=== PATIENT | female | born 1950 | race Caucasian/White ===

== ENCOUNTER → 2017-10-14 09:45 | Outpatient (CLI) | payer MEDICARE, OTHER, SELFPAY ==
--- NOTE | 2017-10-14 09:57 | RAD_ITS ---
STUDY: X-RAY - RIGHT FOOT CLINICAL: Female, 67 years old. Pain. No known injury. TECHNIQUE: 3 view(s) of the foot. COMPARISON: Comparison is made with prior examination generally 2017. FINDINGS: Normal talus, calcaneus, and tarsal bones. Normal visualized subtalar, talonavicular, calcaneocuboid, tarsal and tarsometatarsal articulations. Normal metatarsi. There is a mild degenerative arthrosis of the metatarsophalangeal joint of the hallux with a hallux valgus deformity. Normal tibial and fibular sesamoid bones. Normal interphalangeal joint of the great toe. Normal phalanges of the great toe. Normal second through fifth metatarsophalangeal joints. Normal interphalangeal joints and phalanges of the lesser toes. The soft tissue structures are unremarkable. RAD/Foot min 3 Views IMPRESSION: Mild degenerative changes at the first metatarsophalangeal joint. Electronically Signed: Miguel Barrios MD at 20:03 EST Tel [phone], Service support ,
--- NOTE | 2017-10-14 09:58 | RAD_ITS ---
STUDY: X-RAY - RIGHT ANKLE REASON FOR EXAM: Female, 67 years old. Pain following injury. TECHNIQUE: 3 view(s) of the ankle. COMPARISON: None. FINDINGS: Normal visualized distal tibia and fibula. Normal medial and lateral malleoli. Normal tibiotalar articulation and ankle mortise. Normal visualized talus and calcaneus. The visualized subtalar, talonavicular, calcaneocuboid and tarsal articulations are normal. The soft tissue structures are unremarkable. RAD/Ankle min 3 Views IMPRESSION: Normal x-ray examination of the ankle. Electronically Signed: Miguel Barrios MD at 20:03 EST Tel [phone], Service support ,
== END ==
PROVIDERS: Family Provider Internal Medicine; PCP Internal Medicine; Visit Provider Nurse Practitioner Gerontology
DX: M79.671 Pain in right foot (principal); M25.571 Pain in right ankle and joints of right foot
CPT/HCPCS: 73610; 73630

== ENCOUNTER → 2018-01-09 16:52 | Outpatient (CLI) | payer MEDICARE, OTHER, SELFPAY ==
--- NOTE | 2018-01-09 16:58 | MRI_ITS ---
STUDY: MRI LUMBAR SPINE WITHOUT CONTRAST REASON FOR EXAM: Female, 67 years old. Low back pain and bilateral hip pain. TECHNIQUE: Standardized fat and water weighted pulse sequences were obtained in the sagittal and axial planes. COMPARISON: MRI of the lumbar spine dated April 11, 2014. FINDINGS: T12-L1: Normal endplates. Normal disc height, signal and morphology. Normal bilateral facet joints. Normal central canal and bilateral lateral recesses. Normal bilateral intervertebral neural foramina. Normal lumbar lordosis. There is no substantial scoliosis. Normal conus medullaris that terminates at the T12 level. L1-2: There is mild annular disk bulge and osteophyte complex. There is mild degenerative arthropathy of the facet joints. Bilateral neuroforamina are narrowed without MR evidence for nerve impingement. There is no significant central canal stenosis. L2-3: There is mild annular disk bulge and osteophyte complex. There is mild degenerative arthropathy of the facet joints. Bilateral neuroforamina are narrowed without MR evidence for nerve impingement. There is no significant central canal stenosis. L3-4: There is a small Schmorl's node of the superior endplate of L3. There is mild annular disk bulge and osteophyte complex. There is mild degenerative arthropathy of the facet joints. Bilateral neuroforamina are narrowed without MR evidence for nerve impingement. There is no significant central canal stenosis. L4-5: There is mild annular disk bulge and osteophyte complex. There is mild degenerative arthropathy of the facet joints. Bilateral neuroforamina are narrowed without MR evidence for nerve impingement. There is no significant central canal stenosis. L5-S1: There is narrowing of this disc. There appears to be sequela of chronic Modic changes at the endplates. There are small endplate osteophytes. There is mild annular disk bulge and osteophyte complex. There is mild degenerative arthropathy of the facet joints. Bilateral neuroforamina are narrowed without MR evidence for nerve impingement. There is no significant central canal stenosis. Normal visualized sacral ala. Normal visualized paraspinous soft tissue structures. The left kidney appears smaller than expected for patient's age. 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 Electronically Signed: Inez Skelton MD at 8:23 EDT , Service support ,
== END ==
PROVIDERS: Family Provider Internal Medicine; PCP Internal Medicine; Visit Provider Nurse Practitioner Family
DX: M51.37 Other intervertebral disc degeneration, lumbosacral region (principal); M47.817 Spondylosis without myelopathy or radiculopathy, lumbosacral region; M51.26 Other intervertebral disc displacement, lumbar region
CPT/HCPCS: 72148

== ENCOUNTER → 2018-05-11 07:27 | Outpatient (CLI) | payer MEDICARE, OTHER, SELFPAY ==
[2018-05-11 07:46] LABS: Mucous, Urine 0 SEEN /hpf (<or=2+)
[2018-05-11 08:59] LABS: Absolute Lymphocyte Count 1.02 X10^3/ul (0.83-4.51); Absolute Neutrophil Count 1.4 X10^3/uL (2.0-7.7); Basophil# 0.05 X10^3/uL; Basophil% 1.7 % (0-1); Eosinophil# 0.11 X10^3/uL; Eosinophils% 3.7 % (0-5); Hematocrit 41.9 % (37-47); Hemoglobin 13.7 g/dl (12.0-15.0); Lymphocyte # 1.02 X10^3/ul (4.0); Lymphocyte % 34.5 % (19-41); Mean Corp Hgb Conc 32.7 g/gl (32-36); Mean Corpuscular Hgb 30.1 pg (27.0-32.0); Mean Corpuscular Volume 92.1 fL (81-99); Mean Platelet Vol. 10.4 fl (6.2-12.0); Monocyte# 0.36 X10^3/uL; Monocyte% 12.2 % (0-10); Neutrophil # 1.41 X10^3/uL (2.7-7.7); Neutrophil % 47.6 % (47-70); Platelet Count 257 K/mm3 (150-450); RBC Distribution Width CV 17.8 % (11.6-14.6); RBC Distribution Width SD 59.5 fl (35.1-43.9); Red Blood Count 4.55 M/mm3 (4.2-5.4)
[2018-05-11 09:00] LABS: Color, Urine Yellow (Yellow); Glucose, Dipstick Normal (Normal); Ketone-Dipstick Negative (Negative); Leukocyte Esterase-Dipstick 25 /ul (Negative); Nitrite-Dipstick Negative (Negative); Occult Blood-Urine Negative /ul (Negative); Protein-Dipstick Negative (Negative); Urine Bilirubin Dipstick Negative (Negative); Urine Clarity Clear (Clear); Urine Urobilinogen Normal (Normal)
[2018-05-11 09:11] LABS: POSITIVE COUNT NO; POSITIVE DIFFERENTIAL NO; POSITIVE MORPHOLOGY NO
[2018-05-11 09:13] LABS: Microalbumin,Random Urine 18.8 mg/L (NO RANGE EST.); Microalbumin:Creatinine Ratio 29.8 mg/g CRE (<30 mg/g CRE)
[2018-05-11 09:19] LABS: Vitamin B12 904 pg/mL (211-911); Vitamin D,25 Hydroxy 59.7 ng/mL (29.95-100.01)
[2018-05-11 09:22] LABS: Bacteria RARE /hpf (None Seen); Red Blood Cells-Urine 0-5 SEEN /hpf (0-5); Squamous Epithelial Cells - UA 0-5 SEEN /hpf (5-10); White Blood Cells 0-5 SEEN /hpf (0-5)
[2018-05-11 09:29] LABS: ALB/GLOB Ratio 1.1 RATIO (0.9-2.4); AST(SGOT) 25 U/L (15-37); Alanine Aminotransfer ALT/SGPT 28 U/L (13-56); Albumin, Serum 3.6 g/dL (3.2-5.0); Alkaline Phosphatase 84 U/L (45-117); Anion Gap 10 (5-15); BUN 10 mg/dL (7-18); BUN/Creat Ratio 10.3 RATIO (10-20); Calcium,Total 9.1 mg/dL (8.5-10.1); Chloride 105 mmol/L (98-107); Cholesterol 212 mg/dL (200); Creatinine, Serum 0.97 mg/dL (0.55-1.02); EST Glomerular Filtration Rate 61 mL/min (>60); Est Glom Filt Rate - Afr Amer 73 mL/min (>60); Ferritin 13 ng/mL (8-252); Globulin 3.3 g/dL (2.2-4.2); Glucose 79 mg/dL (74-106); High Density Lipoprotein 105 mg/dL; Iron 60 ug/dL (50-170); Iron Binding Capacity,Total 298 ug/dL (250-450); PERCENT IRON SATURATION 20.1 % (15.0-55.0); Protein, Total 6.9 g/dL (6.4-8.2); Sodium Level 141 mmol/L (136-145); Thyroid Stim Hormone (TSH) 1.39 uIU/mL (0.358-3.74); Triglycerides 63 mg/dL; Very Low Density Lipoprotein 13 mg/dL (5-40)
== END ==
PROVIDERS: Family Provider Internal Medicine; PCP Internal Medicine; Visit Provider Internal Medicine
DX: E55.9 Vitamin D deficiency, unspecified (principal); I10 Essential (primary) hypertension; E78.5 Hyperlipidemia, unspecified; D51.9 Vitamin B12 deficiency anemia, unspecified; E61.1 Iron deficiency
CPT/HCPCS: 36415; 80053; 80061; 81001; 82043; 82306; 82570; 82607; 82728; 83540; 83550; 84443; 85025

== ENCOUNTER → 2018-09-01 07:26 | Outpatient (CLI) | payer MEDICARE, OTHER, SELFPAY ==
[2018-03-18 13:05] VITALS: BMI 29.2
--- NOTE | 2018-09-01 07:32 | BI_ITS ---
MAMMOGRAPHY - BILATERAL SCREENING REASON FOR EXAM: Female, 68 years old. Routine annual screening examination. PERTINENT HISTORY: Personal history of breast cancer. Prior right lumpectomy and radiation treatment. TECHNIQUE: Digital bilateral breast dylon (3D mammographic acquisition) in the CC and MLO projections. 2-D mediolateral oblique (MLO) and craniocaudad (CC) views of both breasts were obtained. CAD: Full Field Digital Mammography with Computer Added Detection was performed. COMPARISON: Comparison is made with prior examination dated July 03, 2016 and July 04, 2017. FINDINGS: Breast Composition: There are scattered areas of fibroglandular density. There are no dominant masses or suspicious calcifications. Once again, surgical clips are seen in the deep upper medial aspect of the right breast in keeping with the prior lumpectomy. Resultant architectural distortion is seen at that site. Surgical clips are also seen in the right axillary region. No new mass lesion or cluster microcalcifications present. No other significant abnormalities are identified. There has been no significant change since the prior study. BI/SCREENING MAMM (CAD), BILAT IMPRESSION: Stable bilateral screening mammogram. Yearly follow-up mammogram recommended. (A) ASSESSMENT CATEGORY: BIRADS Category 2: Benign. A letter regarding these results will be sent to the patient by the facility within 30 days. Approximately 10% of breast cancers are not detected by mammography. A normal mammogram should not delay biopsy of a clinically suspicious abnormality. [id number] Electronically Signed: Miguel Barrios MD at 9:48 EST Tel [phone], Service support ,
--- NOTE | 2018-09-01 08:12 | BD_ITS ---
STUDY: DUAL ENERGY X-RAY ABSORPTIOMETRY / DXA REASON FOR EXAM: Female, 68 years old. The patient is postmenopausal. Loss of height. TECHNIQUE: Bone Mineral Density (BMD) measurements of lumbar spine and bilateral hips were obtained. COMPARISON: Comparison is made with prior study dated August 07, 2016. FINDINGS: Lumbar Spine (L1-L4): g/cm2 (0.925) / T-score (-2.3) / Z-score (-0.7) Findings are suggestive of osteopenia with a high fracture risk. Left Femur Total: g/cm2 (0.823) / T-score (-1.5) / Z-score (-0.1) Left Femoral Neck: g/cm2 (0.979) / T-score (-0.4) / Z-score (1.2) Right Femur Total: g/cm2 (0.828) / T-score (-1.4) / Z-score (-0.1) Right Femoral Neck: g/cm2 (0.970) / T-score (-0.5) / Z-score (1.1) The T-Scores on the most recent prior examination were: Lumbar Spine (L1-L4): There has been worsening of bone density since the previous examination. Left Femur Total: which represents an improvement of 1.6%. Right Femur Total: which represents an improvement of 1.1%. BD/Dexa Bone Density Study IMPRESSION: The patient is considered osteopenic as outlined below according to World Az Organization (WHO) criteria with a high fracture risk. There has been improvement of bone density since the previous examination. Reference Information: The T-score is the number of standard deviations above or below the standard which is normal for young adults at their peak bone mineral density. The World Health Organization (WHO) interprets the T-scores as follows: Above -1 Normal bone density Between -1 and -2.5 Osteopenia Equal to / or below -2.5 Osteoporosis As a practical clinical guideline, osteopenia may be graded as follows: Mild -1 through -1.5 Moderate -1.6 through -2.0 Severe -2.1 through -2.4 The Z-score is the number of standard deviations above or below age-matched controls. A Z-score of less than -1.5 would be considered abnormal. References: 1. NIH Osteoporosis and Related Bone Diseases http://www.osteo.org 2. International Society for Clinical Densitometry http://www.iscd.org 3. National Osteoporosis Foundation http://www.nof.org Electronically Signed: Miguel Barrios MD at 13:58 EST Tel [phone], Service support ,
[2018-09-01 15:39] LABS: Absolute Lymphocyte Count 1.12 X10^3/ul (0.83-4.51); Absolute Neutrophil Count 1.8 X10^3/uL (2.0-7.7); Basophil# 0.03 X10^3/uL; Basophil% 0.8 % (0-1); Eosinophil# 0.19 X10^3/uL; Eosinophils% 5.2 % (0-5); Hematocrit 41.1 % (37-47); Hemoglobin 13.1 g/dl (12.0-15.0); Lymphocyte # 1.12 X10^3/ul (4.0); Lymphocyte % 30.9 % (19-41); Mean Corp Hgb Conc 31.9 g/gl (32-36); Mean Corpuscular Volume 103.5 fL (81-99); Mean Platelet Vol. 10.4 fl (6.2-12.0); Monocyte# 0.46 X10^3/uL; Monocyte% 12.7 % (0-10); Neutrophil # 1.81 X10^3/uL (2.7-7.7); Neutrophil % 50.1 % (47-70); Platelet Count 308 K/mm3 (150-450); RBC Distribution Width CV 14.2 % (11.6-14.6); RBC Distribution Width SD 53.7 fl (35.1-43.9); Red Blood Count 3.97 M/mm3 (4.2-5.4); White Blood Count 3.6 K/mm3 (4.4-11.0)
[2018-09-01 15:45] LABS: POSITIVE DIFFERENTIAL NO
[2018-09-01 15:46] LABS: POSITIVE COUNT NO; POSITIVE MORPHOLOGY NO
[2018-09-01 15:59] LABS: Vitamin B12 371 pg/mL (211-911); Vitamin D,25 Hydroxy 54.3 ng/mL (29.95-100.01)
[2018-09-01 16:07] LABS: ALB/GLOB Ratio 1.2 RATIO (0.9-2.4); AST(SGOT) 27 U/L (15-37); Alanine Aminotransfer ALT/SGPT 37 U/L (13-56); Albumin, Serum 3.7 g/dL (3.2-5.0); Alkaline Phosphatase 103 U/L (45-117); Anion Gap 7 (5-15); BUN 24 mg/dL (7-18); Calcium,Total 8.5 mg/dL (8.5-10.1); Chloride 110 mmol/L (98-107); Creatinine, Serum 0.92 mg/dL (0.55-1.02); EST Glomerular Filtration Rate 64 mL/min (>60); Est Glom Filt Rate - Afr Amer 78 mL/min (>60); Ferritin 17 ng/mL (8-252); Glucose 93 mg/dL (74-106); Iron 43 ug/dL (50-170); Iron Binding Capacity,Total 278 ug/dL (250-450); Potassium 4.1 mmol/L (3.5-5.1); Protein, Total 6.7 g/dL (6.4-8.2); Sodium Level 144 mmol/L (136-145); Thyroid Stim Hormone (TSH) 0.69 uIU/mL (0.358-3.74)
== END ==
PROVIDERS: Family Medicine; Family Provider Internal Medicine; PCP Internal Medicine; Referring Provider Nurse Practitioner Family; Visit Provider Nurse Practitioner Family
DX: Z12.31 Encounter for screening mammogram for malignant neoplasm of breast (principal); M85.80 Other specified disorders of bone density and structure, unspecified site; Z13.820 Encounter for screening for osteoporosis; Z78.0 Asymptomatic menopausal state; I10 Essential (primary) hypertension; E53.8 Deficiency of other specified B group vitamins; E55.9 Vitamin D deficiency, unspecified; E61.1 Iron deficiency
CPT/HCPCS: 36415; 77063; 77067; 77080; 80053; 82306; 82607; 82728; 82746; 83540; 83550; 83735; 84443; 85025

== ENCOUNTER → 2018-12-21 08:50 | Outpatient (CLI) | payer MEDICARE, OTHER, SELFPAY ==
[2018-12-21 10:12] LABS: Absolute Lymphocyte Count 1.24 X10^3/ul (0.83-4.51); Absolute Neutrophil Count 1.5 X10^3/uL (2.0-7.7); Basophil# 0.03 X10^3/uL; Basophil% 0.9 % (0-1); Eosinophil# 0.13 X10^3/uL; Eosinophils% 3.9 % (0-5); Hemoglobin 14.2 g/dl (12.0-15.0); Lymphocyte # 1.24 X10^3/ul (4.0); Lymphocyte % 37.3 % (19-41); Mean Corpuscular Hgb 33.4 pg (27.0-32.0); Mean Corpuscular Volume 101.2 fL (81-99); Mean Platelet Vol. 10.2 fl (6.2-12.0); Monocyte# 0.38 X10^3/uL; Monocyte% 11.4 % (0-10); Neutrophil # 1.53 X10^3/uL (2.7-7.7); Neutrophil % 46.2 % (47-70); Platelet Count 299 K/mm3 (150-450); RBC Distribution Width CV 12.7 % (11.6-14.6); RBC Distribution Width SD 47.2 fl (35.1-43.9); Red Blood Count 4.25 M/mm3 (4.2-5.4); White Blood Count 3.3 K/mm3 (4.4-11.0)
[2018-12-21 10:20] LABS: POSITIVE COUNT NO; POSITIVE DIFFERENTIAL NO; POSITIVE MORPHOLOGY NO
[2018-12-21 10:29] LABS: Vitamin B12 331 pg/mL (211-911); Vitamin D,25 Hydroxy 42.6 ng/mL (29.95-100.01)
[2018-12-21 10:44] LABS: ALB/GLOB Ratio 1.2 RATIO (0.9-2.4); AST(SGOT) 23 U/L (15-37); Alanine Aminotransfer ALT/SGPT 27 U/L (13-56); Albumin, Serum 3.8 g/dL (3.2-5.0); Alkaline Phosphatase 100 U/L (45-117); Anion Gap 9 (5-15); BUN 16 mg/dL (7-18); Calcium,Total 9.2 mg/dL (8.5-10.1); Chloride 103 mmol/L (98-107); EST Glomerular Filtration Rate 59 mL/min (>60); Est Glom Filt Rate - Afr Amer 71 mL/min (>60); Ferritin 21 ng/mL (8-252); Globulin 3.1 g/dL (2.2-4.2); Glucose 85 mg/dL (74-106); Iron 80 ug/dL (50-170); Iron Binding Capacity,Total 277 ug/dL (250-450); Potassium 4.4 mmol/L (3.5-5.1); Protein, Total 6.9 g/dL (6.4-8.2); Sodium Level 140 mmol/L (136-145); Thyroid Stim Hormone (TSH) 1.74 uIU/mL (0.358-3.74)
== END ==
PROVIDERS: PCP Internal Medicine; Visit Provider Family Medicine
DX: I10 Essential (primary) hypertension (principal); E55.9 Vitamin D deficiency, unspecified; E61.1 Iron deficiency
CPT/HCPCS: 36415; 80053; 82306; 82607; 82728; 82746; 83540; 83550; 83735; 84443; 85025

== ENCOUNTER → 2019-02-26 13:59 | Outpatient (CLI) | payer MEDICARE, OTHER, SELFPAY ==
[2019-02-26 07:59] VITALS: BMI 29.4
== END ==
PROVIDERS: Family Provider Internal Medicine; PCP Internal Medicine; Referring Provider Physician Assistant Surgical; Visit Provider Physician Assistant Surgical
DX: J02.9 Acute pharyngitis, unspecified (principal)
CPT/HCPCS: 87081

== ENCOUNTER → 2019-03-19 10:01 | Outpatient (CLI) | payer MEDICARE, OTHER, SELFPAY ==
[2019-02-26 07:59] VITALS: BMI 29.4
--- NOTE | 2019-03-19 10:15 | RAD_ITS ---
STUDY: X-RAY CHEST REASON FOR EXAM: Female, 68 years old. Chest pain/pressure TECHNIQUE: PA and lateral views of the chest. COMPARISON: 2012 FINDINGS: The lungs are clear and expanded. There is no demonstrated pleural abnormality. Normal size heart. Normal mediastinum and nalini. Normal visualized pulmonary arteries. Normal visualized aortic arch and descending thoracic aorta. Normal visualized thoracic spine. Normal visualized ribs, clavicles, and shoulders. There is no demonstrated abnormality of the visualized soft tissue structures of the upper abdomen. RAD/Chest PA and Lateral IMPRESSION: Normal x-ray examination of the chest. Electronically Signed: Mason Lopes MD at 10:51 EDT , Service support ,
== END ==
PROVIDERS: Family Provider Family Medicine; PCP Family Medicine; Referring Provider Family Medicine; Visit Provider Family Medicine
DX: J20.9 Acute bronchitis, unspecified (principal)
CPT/HCPCS: 71046

== ENCOUNTER → 2019-06-03 09:37 | Outpatient (CLI) | payer MEDICARE, OTHER, SELFPAY ==
[2019-02-26 07:59] VITALS: BMI 29.4
[2019-06-03 12:45] LABS: Vitamin B12 298 pg/mL (211-911); Vitamin D,25 Hydroxy 44.8 ng/mL (29.95-100.01)
[2019-06-03 12:47] LABS: ALB/GLOB Ratio 1.2 RATIO (0.9-2.4); AST(SGOT) 24 U/L (15-37); Alanine Aminotransfer ALT/SGPT 32 U/L (13-56); Albumin, Serum 3.7 g/dL (3.2-5.0); Alkaline Phosphatase 87 U/L (45-117); Anion Gap 9 (5-15); BUN 15 mg/dL (7-18); BUN/Creat Ratio 16.3 RATIO (10-20); Calcium,Total 8.7 mg/dL (8.5-10.1); Chloride 102 mmol/L (98-107); Creatinine, Serum 0.92 mg/dL (0.55-1.02); EST Glomerular Filtration Rate 64 mL/min (>60); Est Glom Filt Rate - Afr Amer 78 mL/min (>60); Glucose 69 mg/dL (74-106); Magnesium 1.9 mg/dL (1.6-2.6); Potassium 4.1 mmol/L (3.5-5.1); Protein, Total 6.7 g/dL (6.4-8.2); Sodium Level 138 mmol/L (136-145)
== END ==
PROVIDERS: Family Provider Family Medicine; PCP Family Medicine; Referring Provider Family Medicine; Visit Provider Family Medicine
DX: I10 Essential (primary) hypertension (principal); E53.8 Deficiency of other specified B group vitamins; E55.9 Vitamin D deficiency, unspecified
CPT/HCPCS: 36415; 80053; 82306; 82607; 83735

== ENCOUNTER → 2019-09-03 12:29 | Outpatient (CLI) | payer MEDICARE, OTHER, SELFPAY ==
[2019-02-26 07:59] VITALS: BMI 29.4
--- NOTE | 2019-09-03 12:32 | BI_ITS ---
MAMMOGRAPHY - BILATERAL SCREENING REASON FOR EXAM: Female, 69 years old. Routine annual screening examination. PERTINENT HISTORY: Personal history of breast cancer. Prior right lumpectomy and chemotherapy and radiation therapy. TECHNIQUE: Digital bilateral breast lebron (3D mammographic acquisition) in the CC and MLO projections. 2-D mediolateral oblique (MLO) and craniocaudad (CC) views of both breasts were obtained. CAD: Full Field Digital Mammography with Computer Added Detection was performed. COMPARISON: Comparison is made with prior study dated September 01, 2018 and July 04, 2017. FINDINGS: Breast Composition: There are scattered areas of fibroglandular density. There are no dominant masses or suspicious calcifications. Stable postoperative scarring and changes in the deep upper medial aspect of the right breast. Surgical clips are also seen in the right axillary region. No other significant abnormalities are identified. There has been no significant change since the prior study. BI/SCREEN MAMM (CAD) W/LEBRON BILAT IMPRESSION: Stable bilateral screening mammogram. Yearly follow-up mammogram recommended. (A) ASSESSMENT CATEGORY: BIRADS Category 2: Benign. A letter regarding these results will be sent to the patient by the facility within 30 days. Approximately 10% of breast cancers are not detected by mammography. A normal mammogram should not delay biopsy of a clinically suspicious abnormality. [id number] Electronically Signed: Miguel Barrios, at 13:55 EST , Service support ,
== END ==
PROVIDERS: Family Provider Family Medicine; PCP Family Medicine; Referring Provider Internal Medicine Medical Oncology; Visit Provider Internal Medicine Medical Oncology
DX: Z12.31 Encounter for screening mammogram for malignant neoplasm of breast (principal)
CPT/HCPCS: 77063; 77067

== ENCOUNTER → 2019-10-25 11:34 | Outpatient (CLI) | payer MEDICARE, OTHER, SELFPAY ==
[2019-09-16 13:13] VITALS: BMI 29.2
--- NOTE | 2019-10-25 11:38 | CT_ITS ---
STUDY: CT ABDOMEN AND PELVIS WITH CONTRAST REASON FOR EXAM: Female, 69 years old. Lower abdominal pain and fever RADIATION DOSAGE (If Supplied By Facility): CTDIvol = ( 18.68 ) mGy, DLP = ( 921.13 ) mGycm TECHNIQUE: Transaxial images were obtained from the dome of the diaphragm to the symphysis pubis without oral contrast. Oral and amp; IV Read i-CAT and amp; 100mL Isovue-300 was administered. Sagittal and coronal images were reconstructed. Individualized dose optimization techniques were used for this CT. COMPARISON: 2009 FINDINGS: The visualized lung bases are unremarkable. The visualized portions of the heart are within normal limits. Normal liver. Normal gallbladder and extrahepatic biliary system. Normal spleen. Normal pancreas. Normal bilateral adrenal glands. Normal right kidney. Normal left kidney. Normal visualized stomach. Normal small intestine. Retained stool noted in the colon. There is non-visualization of the appendix. Normal abdominal aorta. Normal inferior vena cava. Normal retroperitoneum. Normal urinary bladder. There is absence of the uterus consistent with a prior hysterectomy. Normal abdominal wall. There are diffuse degenerative changes of the visualized lumbar spine, and pelvis. CT/Abdomen/Pelvis WITH Contrast IMPRESSION: No suspicious solid organ abnormality No CT evidence of acute inflammatory process Retained stool noted in the colon Degenerative bony changes Electronically Signed: Mason Lopes MD at 14:41 EST , Service support ,
[2019-10-25 13:55] LABS: CREATININE FINGERSTICK 0.7 mg/dL (0.55-1.02); EGFR FINGERSTICK > 60.0000 mL/min (>60)
== END ==
PROVIDERS: PCP Family Medicine; Referring Provider Family Medicine; Visit Provider Family Medicine
DX: R10.829 Rebound abdominal tenderness, unspecified site (principal)
CPT/HCPCS: 74177; Q9967

== ENCOUNTER → 2019-10-27 | Outpatient (CLI) | payer MEDICARE, OTHER, SELFPAY ==
[2019-09-16 13:13] VITALS: BMI 29.2
[2019-10-27 09:03] LABS: Mucous, Urine 0 SEEN /hpf (<or=2+); Squamous Epithelial Cells - UA 0 SEEN /hpf (5-10)
[2019-10-27 10:07] LABS: Absolute Lymphocyte Count 0.83 X10^3/uL (0.83-4.51); Absolute Neutrophil Count 1.1 X10^3/uL (2.0-7.7); Basophil# 0.05 X10^3/uL; Eosinophil# 0.09 X10^3/uL; Eosinophils% 3.7 % (0-5); Hematocrit 45.1 % (37-47); Hemoglobin 14.9 g/dL (12.0-15.0); Lymphocyte # 0.83 X10^3/ul (4.0); Lymphocyte % 33.9 % (19-41); Mean Corpuscular Hgb 33.4 pg (27.0-32.0); Mean Corpuscular Volume 101.1 fL (81-99); Mean Platelet Vol. 10.4 fl (6.2-12.0); Monocyte% 16.3 % (0-10); NRBC Flagged by Analyzer 0 % (0-5); Neutrophil # 1.07 X10^3/uL (2.7-7.7); Neutrophil % 43.7 % (47-70); Platelet Count 274 K/mm3 (150-450); RBC Distribution Width CV 11.8 % (11.6-14.6); RBC Distribution Width SD 44.1 fl (35.1-43.9); Red Blood Count 4.46 M/mm3 (4.2-5.4); White Blood Count 2.5 K/mm3 (4.4-11.0)
[2019-10-27 10:16] LABS: ALB/GLOB Ratio 1.2 RATIO (0.9-2.4); AST(SGOT) 20 U/L (15-37); Alanine Aminotransfer ALT/SGPT 25 U/L (13-56); Albumin, Serum 3.8 g/dL (3.2-5.0); Alkaline Phosphatase 90 U/L (45-117); Anion Gap 9 (5-15); BUN 15 mg/dL (7-18); BUN/Creat Ratio 14.3 RATIO (10-20); Calcium,Total 8.7 mg/dL (8.5-10.1); Chloride 104 mmol/L (98-107); Creatinine, Serum 1.05 mg/dL (0.55-1.02); EST Glomerular Filtration Rate 55 mL/min (>60); Est Glom Filt Rate - Afr Amer 67 mL/min (>60); Globulin 3.2 g/dL (2.2-4.2); Glucose 87 mg/dL (74-106); Magnesium 2.1 mg/dL (1.6-2.6); Phosphorus 3.1 mg/dL (2.5-4.9); Potassium 3.8 mmol/L (3.5-5.1); Sodium Level 137 mmol/L (136-145)
[2019-10-27 10:47] LABS: Vitamin B12 681 pg/mL (211-911); Vitamin D,25 Hydroxy 52.4 ng/mL
[2019-10-27 12:01] LABS: Color, Urine Yellow (Yellow); Glucose, Dipstick Normal (Normal); Ketone-Dipstick Negative (Negative); Leukocyte Esterase-Dipstick 100 /ul (Negative); Nitrite-Dipstick Negative (Negative); Occult Blood-Urine Negative /ul (Negative); Protein-Dipstick 15 mg/dl (Negative); Urine Bilirubin Dipstick Negative (Negative); Urine Clarity Clear (Clear); Urine Urobilinogen Normal (Normal)
[2019-10-27 12:08] LABS: Bacteria RARE /hpf (None Seen); Red Blood Cells-Urine 0-5 SEEN /hpf (0-5); White Blood Cells 0-5 SEEN /hpf (0-5)
[2019-10-27 12:58] LABS: Protein, Urine (Random) 18.3 mg/dL (<11.9); Protein:Creat Ratio 84 mg/g CRE (0-200)
== END | disposition home or self-care (01) ==
LOC: MFPLAB 08:59 → LABSPEC 11:46
PROVIDERS: PCP Family Medicine; Referring Provider Family Medicine; Visit Provider Family Medicine
DX: E53.8 Deficiency of other specified B group vitamins (principal); E55.9 Vitamin D deficiency, unspecified; N18.2 Chronic kidney disease, stage 2 (mild); M85.80 Other specified disorders of bone density and structure, unspecified site; E83.42 Hypomagnesemia
CPT/HCPCS: 36415; 80053; 81001; 82306; 82570; 82607; 83735; 84100; 84156; 85025

== ENCOUNTER → 2020-05-23 08:55 | Outpatient (CLI) | payer MEDICARE, OTHER, SELFPAY ==
[2019-09-16 13:13] VITALS: BMI 29.2
[2020-05-23 10:25] LABS: Absolute Lymphocyte Count 1.12 X10^3/uL (0.83-4.51); Absolute Neutrophil Count 2.7 X10^3/uL (2.0-7.7); Basophil# 0.03 X10^3/uL; Basophil% 0.7 % (0-1); Eosinophils% 2.3 % (0-5); Hematocrit 43.2 % (37-47); Hemoglobin 14.3 g/dL (12.0-15.0); Lymphocyte # 1.12 X10^3/ul (4.0); Lymphocyte % 25.6 % (19-41); Mean Corp Hgb Conc 33.1 g/dL (32-36); Mean Corpuscular Hgb 33.2 pg (27.0-32.0); Mean Corpuscular Volume 100.2 fL (81-99); Mean Platelet Vol. 10.1 fl (6.2-12.0); Monocyte# 0.46 X10^3/uL; Monocyte% 10.5 % (0-10); NRBC Flagged by Analyzer 0 % (0-5); Neutrophil # 2.65 X10^3/uL (2.7-7.7); Neutrophil % 60.4 % (47-70); Platelet Count 319 K/mm3 (150-450); RBC Distribution Width CV 13.1 % (11.6-14.6); Red Blood Count 4.31 M/mm3 (4.2-5.4); White Blood Count 4.4 K/mm3 (4.4-11.0)
[2020-05-23 10:40] LABS: ALB/GLOB Ratio 1.1 RATIO (0.9-2.4); AST(SGOT) 23 U/L (15-37); Alanine Aminotransfer ALT/SGPT 29 U/L (13-56); Albumin, Serum 3.6 g/dL (3.2-5.0); Alkaline Phosphatase 85 U/L (45-117); Anion Gap 5 (5-15); BUN 15 mg/dL (7-18); BUN/Creat Ratio 16.6 RATIO (10-20); Calcium,Total 9.1 mg/dL (8.5-10.1); Chloride 104 mmol/L (98-107); EST Glomerular Filtration Rate 65 mL/min (>60); Est Glom Filt Rate - Afr Amer 79 mL/min (>60); Globulin 3.2 g/dL (2.2-4.2); Glucose 86 mg/dL (74-106); Magnesium 2.1 mg/dL (1.6-2.6); Phosphorus 3.3 mg/dL (2.5-4.9); Protein, Total 6.8 g/dL (6.4-8.2); Sodium Level 137 mmol/L (136-145)
[2020-05-23 10:45] LABS: Vitamin B12 831 pg/mL (211-911); Vitamin D,25 Hydroxy 59.4 ng/mL
== END ==
PROVIDERS: PCP Family Medicine; Referring Provider Family Medicine; Visit Provider Family Medicine
DX: E53.8 Deficiency of other specified B group vitamins (principal); E55.9 Vitamin D deficiency, unspecified; I10 Essential (primary) hypertension; M85.80 Other specified disorders of bone density and structure, unspecified site
CPT/HCPCS: 36415; 80053; 82306; 82607; 83735; 84100; 85025

== ENCOUNTER 2020-08-15 11:39 | Emergency (ER) | payer MEDICARE, OTHER, SELFPAY ==
[2019-09-16 13:13] VITALS: BMI 29.2
[2020-08-15 11:41] VITALS: BP 162/93; PULSE 109; RESP 16; TEMP 35.8; O2SAT 98; BMI 28.1
--- NOTE | 2020-08-15 13:09 | ED.VISSUMM ---
- ER Visit Summary Date of Service: 08/15/20 Chief Complaint: Right lower extremity pain History of Present Illness: The patient is a 70 F who presents with right lower extremity pain that has been getting worse over the past 6 days. Patient sees pain management and was started on a Medrol dose pack recently. Patient states this has not been helping. Patient states she has 2 doses of her Medrol Dosepak left. Patient states she also increased her gabapentin which has not helped. Patient states her pain is stabbing. Patient states it is worse with weightbearing. Patient states it is mainly over the right thigh but radiates into her right knee and leg. Patient also states she has pain in her right groin. Patient denies any trauma or injury. Patient denies any falls. Patient denies any paresthesias or weakness. Patient denies any bowel or bladder changes. Physical Examination: Vital signs are stable. Patient is afebrile. Patient is in no acute distress. Musculoskeletal exam reveals some mild tenderness over the right lower lumbar paraspinal muscles. There is no midline tenderness. There is no bony crepitance or step-off. There is no tenderness over the right hip. There is good internal and external rotation of the right lower extremity without pain. There is some mild tenderness over the right thigh. There is no obvious deformity noted. Strength is 5/5 bilaterally in the lower extremities. There are no sensory deficits noted. Heart was regular rate and rhythm. Lungs are clear and equal bilateral. Abdomen is soft and nontender. Emergency Department Course and Treatment: Patient was given an injection of morphine. Patient states her pain is improving. Patient was instructed to follow-up with her pain management physician for further management of her chronic pain. Patient understood and was agreeable with the plan. All questions were answered. Disposition: Discharge home Impression: Acute on chronic right leg pain This note was generated with [employer] dictation software. It may contain incorrect words, spelling, and punctuation that were not noted in review of the chart prior to signing ED Disposition - Plan for ED Patient: Disposition: Home or Assisted Living Diagnosis: Acute exacerbation of chronic low back pain Instructions: ED Chronic Pain Referrals: Maurilio Castillo MD [Primary Care Provider] - 5-7 Days Igor Sanford MD [STAFF PHYSICIAN] - 3-5 Days
[2020-08-15] MEDS: Morphine 4 MG/ML Syringe IM (13:15)
== END 2020-08-15 14:57 | disposition home or self-care (01) ==
PROVIDERS: Emergency Provider Emergency Medicine; PCP Family Medicine
DX: M79.604 Pain in right leg (principal); G89.29 Other chronic pain

== ENCOUNTER 2020-08-15 21:02 | Emergency (ER) | payer MEDICARE, OTHER, SELFPAY ==
[2020-08-15 11:41] VITALS: BMI 28.1
[2020-08-15 21:03] VITALS: BP 155/105; PULSE 91; RESP 18; TEMP 36.2; O2SAT 99; BMI 29.0
--- NOTE | 2020-08-15 21:49 | ED.VIS.GEN ---
History of Present Illness Chief Complaint: Lower Extremity Injury Narrative: This patient is a 70-year-old female who presents with right leg pain. She complains of pain radiating from right hip down the right thigh and leg. She also complains of tingling. No numbness. No weakness. She does have a history of lumbar radiculopathy and prior back pain. She sees pain management. She has a history of radiofrequency ablation as well as a steroid injection to her SI joint. She is on Tylenol 3. She was recently put on a Medrol Dosepak. She was seen earlier today in the emergency department and given an intramuscular injection of morphine which helped her pain however it returned when she got home and she is unable to tolerate her current level of pain. She denies any weakness. No fall or injury. She denies abdominal pain urinary retention fecal incontinence or weakness. No fever. Past Medical History - Allergies and Home Meds Allergies/Adverse Reactions: Allergies Penicillins [PCN] Allergy (Verified 08/15/20 21:05) Unknown amoxicillin trihydrate [From Amoxil] Adverse Reaction (Verified 08/15/20 21:05) Rash ciprofloxacin [From Cipro] Adverse Reaction (Verified 08/15/20 21:05) Nausea ciprofloxacin HCl [From Cipro] Adverse Reaction (Verified 08/15/20 21:05) Nausea actonel Adverse Reaction (Uncoded 08/15/20 21:05) Unknown norvasc Adverse Reaction (Uncoded 08/15/20 21:05) Unknown Primary Care Physician: Maurilio Castillo MD [Primary Care Provider] - Past Medical History: - - GERD, lumbar radiculopathy Smoking Status: Never smoker Review of Systems All systems negative except as indicated General: Denies: Fever Eyes: Denies: Visual changes - bilaterally Cardiovascular: Denies: Chest pain Respiratory: Denies: Dyspnea Gastrointestinal: Denies: Nausea, Vomiting Musculoskeletal: Reports: Extremity Pain Skin: Denies: Rash Neurological: Denies: Headache Hematologic: Denies: Easy bruising Allergy: Denies: Uticaria Physical Exam Vital Signs/Narrative: Vital Signs Temp Pulse Resp BP Pulse Ox 08/15/20 21:03 97.1 F L 91 18 155/105 H 99 Inital Vital Signs reviewed: Yes General: Well nourished Head: Normocephalic Eyes: EOMI ENT: Moist mucous membranes Neck: Supple Cardiovascular: Regular rate Respiratory: No distress Abdomen: Soft, Nontender Extremities: - - Negative straight leg raise, I am unable to palpate a dorsalis pedis pulse however she has brisk capillary refill, less than 2 seconds in the foot is warm to touch, she has a biphasic Doppler signal for the right posterior tibial pulse her sensation is intact to light touch Neurological: Alert, - - Normal strength and sensation of the lower extremity, 5 out of 5 dorsiflexion, plantarflexion Psychological: Normal affect, - - Anxious Diagnostic/Tx/Re-eval Impressions Venous Duplex 08/15/20 21:50 IMPRESSION: No demonstrated deep vein thrombosis. Electronically Signed: Marina Donis MD at 22:53 EST Tel , Service support , Laboratory Results 08/15/20 08/15/20 22:04 22:04 WBC 10.6 RBC 4.38 Hgb 15.1 H Hct 46.0 MCV 105.0 H MCH 34.5 H MCHC 32.8 RDW Std Deviation 50.6 H RDW Coeff of Sarah 13.0 Plt Count 307 MPV 9.4 Immature Gran % (Auto) 2.300 H Neut % (Auto) 71.5 H Lymph % (Auto) 14.0 L [place] % (Auto) 11.4 H Eos % (Auto) 0.3 Baso % (Auto) 0.5 Absolute Neuts (auto) 7.6 Absolute Lymphs (auto) 1.49 Nucleated RBC % 0 Sodium 138 Potassium 4.5 Chloride 105 Carbon Dioxide 30.0 Anion Gap 3 L BUN 18 Creatinine 1.05 H Estim Creat Clear Calc 46.67 Est GFR (MDRD) Af Amer 67 Est GFR (MDRD) Non-Af 55 L BUN/Creatinine Ratio 17.1 Glucose 99 Calcium 9.0 Total Creatine Kinase 118 - Medical Decision Making Patient's presentation is most consistent with a lumbar radiculopathy. However given a second visit in the same day I did want to pursue further work-up and rule out other more serious pathologies. Venous duplex is negative for DVT. Labs are unremarkable with a normal CPK. She does not have any evidence of vascular emergency. She does not have evidence of acute surgical spinal pathology such as cauda equina syndrome or epidural abscess. She does feel better after dose of oxycodone. Although she is in pain management I feel adjusting her oral pain medication regimen is preferable to hospitalization. I wrote a prescription for short course of Percocet but I advised that she contact her pain management physician as soon as possible. ED Disposition - Plan for ED Patient: Disposition: Home or Assisted Living Diagnosis: Lumbar radiculopathy Instructions: ED Sciatica Prescriptions: Oxycodone HCl/Acetaminophen [Percocet 5/325] 1 tab PO Q6H PRN PRN 3 Days #12 tab PRN Reason: Pain Prescription Printed Referrals: Maurilio Castillo MD [Primary Care Provider] -
--- NOTE | 2020-08-15 21:50 | US_ITS ---
STUDY: VENOUS DOPPLER ULTRASOUND - RIGHT LOWER EXTREMITY REASON FOR EXAM: Female, 70 years old. PAIN GOING DOWN RIGHT LEG TECHNIQUE: Ultrasound evaluation of the deep vein system to include olivera-scale imaging and compression was performed. Olivera-scale imaging and Doppler sonographic evaluation, including duplex spectral analysis and qualitative color flow sonography, was performed. COMPARISON: None. FINDINGS: Common Femoral Vein: Normal compression, spontaneity and augmentation. Normal color Doppler. Common Femoral Vein/Greater Saphenous Junction: Normal compression. Femoral Proximal: Normal compression. Femoral Middle: Normal compression, spontaneity and augmentation. Normal color Doppler. Femoral Distal: Normal compression. Popliteal Vein: Normal compression, spontaneity and augmentation. Normal color Doppler. Posterior Tibial Vein: Normal compression. Peroneal Vein: Normal compression. US/Venous Duplex Imag/Limited/Uni IMPRESSION: No demonstrated deep vein thrombosis. Electronically Signed: Marina Donis MD at 22:53 EST Tel , Service support ,
[2020-08-15] MEDS: oxyCODONE 5 MG Tablet PO (21:55)
[2020-08-15 22:17] LABS: Absolute Lymphocyte Count 1.49 X10^3/uL (0.83-4.51); Absolute Neutrophil Count 7.6 X10^3/uL (2.0-7.7); Basophil# 0.05 X10^3/uL; Basophil% 0.5 % (0-1); Eosinophil# 0.03 X10^3/uL; Eosinophils% 0.3 % (0-5); Hemoglobin 15.1 g/dL (12.0-15.0); Lymphocyte # 1.49 X10^3/ul (4.0); Mean Corp Hgb Conc 32.8 g/dL (32-36); Mean Corpuscular Hgb 34.5 pg (27.0-32.0); Mean Platelet Vol. 9.4 fl (6.2-12.0); Monocyte# 1.21 X10^3/uL; Monocyte% 11.4 % (0-10); NRBC Flagged by Analyzer 0 % (0-5); Neutrophil # 7.61 X10^3/uL (2.7-7.7); Neutrophil % 71.5 % (47-70); Platelet Count 307 K/mm3 (150-450); RBC Distribution Width SD 50.6 fl (35.1-43.9); Red Blood Count 4.38 M/mm3 (4.2-5.4); White Blood Count 10.6 K/mm3 (4.4-11.0)
[2020-08-15 22:59] LABS: Anion Gap 3 (5-15); BUN 18 mg/dL (7-18); BUN/Creat Ratio 17.1 RATIO (10-20); CPK Total, Creatine Kinase 118 U/L (26-192); Chloride 105 mmol/L (98-107); Creatinine, Serum 1.05 mg/dL (0.55-1.02); EST Glomerular Filtration Rate 55 mL/min (>60); Est Glom Filt Rate - Afr Amer 67 mL/min (>60); Estimated Creatinine Clearance 46.67 ml/min; Glucose 99 mg/dL (74-106); Potassium 4.5 mmol/L (3.5-5.1); Sodium Level 138 mmol/L (136-145)
[2020-08-16] VITALS: RESP 16
== END 2020-08-16 00:32 | disposition home or self-care (01) ==
PROVIDERS: Emergency Provider Emergency Medicine; PCP Family Medicine
DX: M54.16 Radiculopathy, lumbar region (principal); K21.9 Gastro-esophageal reflux disease without esophagitis; Z88.0 Allergy status to penicillin; Z88.1 Allergy status to other antibiotic agents; M79.604 Pain in right leg
CPT/HCPCS: 80048; 82550; 85025; 93971; 96372; 99283; 99284; A4216

== ENCOUNTER 2020-08-31 13:38 | Outpatient (RCR) | payer MEDICARE, OTHER, SELFPAY ==
--- NOTE | 2020-08-31 15:04 | HP.PTEVAL_ITS ---
Patient's Visit Information MAYA LÓPEZ is a 70 year old F referred to Physical Therapy by RUDI Mora with a diagnosis of Lumbar Pain. Date of Evaluation: 08/31/20 Physical Therapist: Kassie Nogueira DPT - Visit Plan Frequency: 2x /Week Duration: 4 Weeks Plan: Aquatics- focus on LE and core strength/stabilization- significant pain levels - Subjective Patient reports that she has had back problems- has been having radiofrequency t reatments and SI injections (Last and July) by Dr. Long. She has had pain in the right quad and lower leg. After she had the injection 6-7 days she was unable to put pressure on her right leg. They called her and want her to do an MRI- but she can't lay on her bed on her back and is unsure how she would stand an MRI. They don't want to give her any pain medication until after the MRI. She has saved some for the MRI. She has a TENS unit. She is trying to do some over the counter but it alexis her stomach. She is very painful and is having a hard time sleeping. She has gone to protein and vegetables only. She is doing stretching exercises. She has the MRI scheduled on the but is unsure if she can do it. He also gave her steroids that did not help. Was given Tylenol 3's which did not help- then they gave her valium. She has been able to sleep a little bit longer with them and only takes them at night. She feels that the pain is centralizing back into the thigh. She is using a massage and ice all the time. Eases: sitting in a figure 4 and rubbing the pain. The pain is all the time past 10/10. Pain in the right buttock and radiates down right leg. Numbness come and goes. She describes the pain as sharp/shooting and dull and achy. Does not buckle but she does not want to put pressure on her right LE. She has more energy in the mornings. Fully I prior to the injections Aug 15, 2020. Lives alone and does not have stairs at home- railing in the garage to get in/out. Is not driving- but is using the van. Her neighbor is getting groceries for her but she is able to do her own laundry daily. Sleep: bed- brand new mattress- firm- she prefers her belly but she is doing anything she can to sleep right now. Use to do water classes here prior to COVID-19. She thinks that she went down hill due to decreased exercise. PMHX/Meds: citracal, duloxetin, gabapentin, robaxin, verapmi, Zegerid. Spinal Surgeon consult 2010-2011ish they sent her to pain mgmt. Has been with Dr. Long since. - Objective Posture: significant guarding- FH, RS- increased kyphosis- can not correct with verbal or tactile cues without pain. Gait: antalgic- FWW- decreased stance on the right LE with reports of pain- kyphosis. HR/TR: able in sitting but unable in standing. SLS: unable to weight shift to the right without pain. Sensation: WNL to gross touch bilateral. Palpation: tender to light touch in right LE from toes to hip and into the gluts and paraspinals- significant reaction of crying and flinching. ROM: Lumbar: flexion to 90 degrees, Ext: neutral, SB and Rotation: limited bt 75% with pain, Hip/Knee/Ankle: WFL. Strength: Core: poor, Hip: SLR unable to lift without A from PT, Extn: 4-/5, Abd/Add: 4/5, Knee: 4/5, Ankle: 4/5. Flex: HS: severe, Gastroc: severe. Special Test: Slump: positive, Dural Signs: positive bilateral. Hard to accurate assessment due to pain levels - Goals Goal 1:: Patient will be I with HEP and progression Goal Time Frame: 4-6 Weeks Goal 2:: Patient will ambulate <300 feet with a normalized gait pattern and LRD Goal Time Frame: 4-6 Weeks Goal 3:: Patient will maintain proper posture t/o tx session to demo increased core s/s Goal Time Frame: 4-6 Weeks Goal 4:: Patient will report no periphalization of back pain for 1 week Goal Time Frame: 4-6 Weeks - Rehabilitation Potential Physical Therapy Diagnosis: Patient presents with hypomobility- she has decreased strength, flex and muscular endurance leading to increased peripheral ization of pain down the right LE Rehabilitation Potential: Fair - Anticipated Interventions Patient/Client Instruction: Educate patient on: Benefits of Fitness Program Therapeutic Exercise to Include: Strength training, Endurance training, Balance training, Agility training, Body mechanics, Postural training, Flexibilty training, Gait and locomotor training, Neuromotor development, In an aquatic setting, Passive ROM, Active ROM, Dynamic Lumbar Stabilization, Scapular Strength/Stabilization For the Purpose of:: To improve muscle performance and motor function Thank you for the opportunity to evaluate your patient. For Medicare and Medicare HMO plans, please review the plan of care and approve it. It will need to be FAXED BACK to us at [phone] for Medicare purposes. For Medicare only, by signing this I certify the plan of care. Please let me know if there are questions or concerns regarding this plan of care. Physician Signature: Date:
--- NOTE | 2020-09-27 13:11 | HP.PT.NRP ---
MAYA LÓPEZ was seen in my office for initial evaluation on 08/31/20. The following Plan of Care was established for this patient: Initial Frequency: 2x /Week Initial Duration: 4 Weeks Patient/Client Instruction: Educate patient on: Benefits of Fitness Program Therapeutic Exercise to Include: Strength training, Endurance training, Balance training, Agility training, Body mechanics, Postural training, Flexibilty training, Gait and locomotor training, Neuromotor development, In an aquatic setting, Passive ROM, Active ROM, Dynamic Lumbar Stabilization, Scapular Strength/Stabilization For the Purpose of:: To improve muscle performance and motor function This patient was last seen in our office . Pertinent comments regarding their Physical therapy will appear below: Patient to have spinal surgery- discharge at this time. At this point I will be discontinuing this patient from physical therapy. I would be happy to see this patient again in the future if found appropriate by the physician. Thank you! Kassie Nogueira DPT
== END 2020-08-31 19:00 | disposition home or self-care (01) ==
LOC: PT 13:38
PROVIDERS: PCP Family Medicine; Referring Provider Nurse Practitioner Family; Visit Provider Nurse Practitioner Family
DX: M51.26 Other intervertebral disc displacement, lumbar region (principal); M47.27 Other spondylosis with radiculopathy, lumbosacral region; M51.17 Intervertebral disc disorders with radiculopathy, lumbosacral region; M46.96 Unspecified inflammatory spondylopathy, lumbar region; M79.7 Fibromyalgia
CPT/HCPCS: 97162

== ENCOUNTER → 2020-09-07 09:59 | Outpatient (CLI) | payer MEDICARE, OTHER, SELFPAY ==
[2020-08-15 21:03] VITALS: BMI 29.0
--- NOTE | 2020-09-07 10:12 | MRI_ITS ---
STUDY: MRI LUMBAR SPINE WITHOUT CONTRAST REASON FOR EXAM: Female, 70 years old. degenerative disc disease, C/O LOW BACK PAIN INTO R LEG/GROIN URINE INCONTINENCE TECHNIQUE: Standardized fat and water weighted pulse sequences were obtained in the sagittal and axial planes. COMPARISON: 01/09/2018 FINDINGS: Lumbar lordosis preserved. No significant scoliosis. Conus medullaris terminates normally at the L1 level. No acute fracture, dislocation or osseous destruction. Mild paraspinal muscle atrophy. Sacrum intact. Normal aorta. Normal retroperitoneum. T12-L1: Normal endplates. Normal disc height, hydration and morphology. Normal bilateral facet joints. Normal central canal and bilateral lateral recesses. Normal bilateral intervertebral neural foramina. L1-2: Normal endplates. Shallow disc bulge. Facet joint arthrosis. Normal central canal and bilateral lateral recesses. Normal bilateral intervertebral neural foramina. L2-3: Mild endplate spondylosis. Shallow disc bulge. Facet joint arthrosis. Normal central canal and bilateral lateral recesses. Normal bilateral intervertebral neural foramina. L3-4: Mild endplate spondylosis. Shallow disc bulge with right foraminal extrusion (axial image 15 series 5 and sagittal image 10 series 3). Herniated disc material measures approximately 1.4 cm x 0.9 cm. Facet joint arthrosis. Normal central canal and bilateral lateral recesses. Right neural foraminal narrowing with impingement. L4-5: Mild endplate spondylosis. Shallow disc bulge. Facet joint arthrosis. Normal central canal and bilateral lateral recesses. Normal bilateral intervertebral neural foramina. L5-S1: Moderate endplate spondylosis. Shallow disc bulge. Facet joint arthrosis. Normal central canal and bilateral lateral recesses. Neural foraminal narrowing with early contact of the left exiting nerve root. MRI/Spine Lumbar (Routine) IMPRESSION: Multilevel intervertebral disc disease with right foraminal extrusion at the L3-4 level Multilevel neural foraminal narrowing with impingement of the right exiting L3 nerve root Mild osteoarthritis with endplate spondylosis and facet joint arthrosis Electronically Signed: Geovani Ruiz DO at 11:10 EST Tel , Service support ,
== END ==
PROVIDERS: PCP Family Medicine; Referring Provider Nurse Practitioner Family; Visit Provider Nurse Practitioner Family
DX: M12.9 Arthropathy, unspecified (principal); M51.37 Other intervertebral disc degeneration, lumbosacral region; M53.3 Sacrococcygeal disorders, not elsewhere classified; M51.26 Other intervertebral disc displacement, lumbar region
CPT/HCPCS: 72148

== ENCOUNTER 2020-09-07 11:07 | Inpatient (IN) | payer MEDICARE, OTHER, SELFPAY ==
[2020-09-07 11:08] VITALS: BP 154/126; PULSE 108; RESP 20; TEMP 36.6; O2SAT 99; BMI 28.1
[2020-09-07] MEDS: Morphine 4 MG/ML Syringe IV (12:37)
[2020-09-07] MEDS: Ondansetron 4 MG/2 ML Vial IV (12:37)
[2020-09-07 12:40] LABS: Absolute Neutrophil Count 3.8 X10^3/uL (2.0-7.7); Basophil# 0.05 X10^3/uL; Basophil% 0.8 % (0-1); Eosinophil# 0.12 X10^3/uL; Hematocrit 45.5 % (37-47); Hemoglobin 15.6 g/dL (12.0-15.0); Lymphocyte % 19.7 % (19-41); Mean Corp Hgb Conc 34.3 g/dL (32-36); Mean Corpuscular Hgb 34.4 pg (27.0-32.0); Mean Corpuscular Volume 100.2 fL (81-99); Mean Platelet Vol. 9.6 fl (6.2-12.0); Monocyte# 0.82 X10^3/uL; Monocyte% 13.5 % (0-10); NRBC Flagged by Analyzer 0 % (0-5); Neutrophil # 3.84 X10^3/uL (2.7-7.7); Neutrophil % 63.2 % (47-70); Platelet Count 431 K/mm3 (150-450); RBC Distribution Width CV 13.2 % (11.6-14.6); RBC Distribution Width SD 49.1 fl (35.1-43.9); Red Blood Count 4.54 M/mm3 (4.2-5.4); White Blood Count 6.1 K/mm3 (4.4-11.0)
[2020-09-07 12:51] LABS: Anion Gap 6 (5-15); BUN 18 mg/dL (7-18); BUN/Creat Ratio 17.6 RATIO (10-20); Calcium,Total 10.2 mg/dL (8.5-10.1); Chloride 107 mmol/L (98-107); Creatinine, Serum 1.02 mg/dL (0.55-1.02); EST Glomerular Filtration Rate 57 mL/min (>60); Est Glom Filt Rate - Afr Amer 69 mL/min (>60); Estimated Creatinine Clearance 49.91 ml/min; Glucose 101 mg/dL (74-106); Potassium 3.5 mmol/L (3.5-5.1); Sodium Level 141 mmol/L (136-145)
--- NOTE | 2020-09-07 13:00 | CM.ED ---
SOCIAL WORK Case discussed with Dr. Monte. Patient was cleared for sitter protocol by Dr. Monte for suicidal ideation. Patient with intractable pain and will be admitted. Alicia Giraldo, FLOORPERSON, PASSENGER BOOKING CLERK
--- NOTE | 2020-09-07 13:05 | HP.PCM_ITS ---
Problem List (1) Lumbar back pain with radiculopathy affecting right lower extremity Status: Acute (2) HTN (hypertension) Status: Chronic Qualifiers: Hypertension type: essential hypertension Qualified Code(s): I10 - Essential (primary) hypertension (3) CKD (chronic kidney disease), stage III Status: Chronic Qualifiers: Chronic kidney disease stage 3 subtype: unspecified whether 3a or 3b Qualified Code(s): N18.30 - Chronic kidney disease, stage 3 unspecified (4) Anxiety and depression Status: Chronic (5) GERD (gastroesophageal reflux disease) Status: Chronic Qualifiers: Esophagitis presence: esophagitis presence not specified Qualified Code(s): K21.9 - Gastro-esophageal reflux disease without esophagitis (6) History of right breast cancer Status: Chronic History of Present Illness Date of Admission: 09/07/20 Chief Complaint: Intractable pain, suicidal ideations The patient is a 70 y/o F w/ PMHx: CKD stage III, Hx R Breast CA s/p lumpectomy, GERD, OA, HTN, Depression and Anxiety, Chronic back pain with disc herniations in pain management who presents to the [facility] ED on 09/07/20 initially for planned outpatient MRI lumbar spine; however, patient reportedly was overheard her preference to end her life secondary to her ongoing intractable pain and has recently not been taking her medication secondary to the increased work it takes and apathy onset. She had specifically acute onset lumbar back pain with RLE radicular back pain 07/2020 which has been worsening, seen pain management, does not take her medications, worsening ability to ambulate and take care of herself. She has had bowel incontinence since July. MRI lumbar spine obtained on day of presentation with multilevel intervertebral disc disease with right foraminal extrusion at the L3-4 level, multilevel neural foraminal narrowing with impingement of the right exiting L3 nerve root, mild osteoa rthritis with endplate spondylosis and facet joint arthrosis. Work-up in the ED included T 97.9, heart rate 108, BP 154/126, respiratory rate 20, 99% on room air, CBC with WC 6.1, hemoglobin 15.6, platelet 431 without marked shift, BMP unremarkable aside calcium 10.2, with alcohol 4. In the ED patient administered morphine and zofran therapy. In the ED she was cleared from a crisis standpoint and felt not actively suicidal. ED physician requested admission for intractable back pain. Past Medical History Past Medical History (Chronic Problems): Chronic Problems (Last Reviewed 09/16/19 @ 13:13 by Noa Woods) HTN (hypertension) (Chronic) CKD (chronic kidney disease), stage III (Chronic) Anxiety and depression (Chronic) GERD (gastroesophageal reflux disease) (Chronic) History of right breast cancer (Chronic) Medical History: Medical History (Last Reviewed 09/16/19 @ 13:13 by Noa Woods) Anxiety F41.9 Arthritis M19.90 Breast cancer C50.919 GERD (gastroesophageal reflux disease) K21.9 Hay fever J30.1 Heart disease I51.9 Herniation of lumbar intervertebral disc M51.26 Kidney disease N28.9 Nephrolithiasis N20.0 Osteopenia M85.80 Hypertension I10 Allergies Penicillins [PCN] Allergy (Verified 09/07/20 11:16) Unknown amoxicillin trihydrate [From Amoxil] Adverse Reaction (Verified 09/07/20 11:16) Rash ciprofloxacin [From Cipro] Adverse Reaction (Verified 09/07/20 11:16) Nausea ciprofloxacin HCl [From Cipro] Adverse Reaction (Verified 09/07/20 11:16) Nausea actonel Adverse Reaction (Uncoded 09/07/20 11:16) Unknown norvasc Adverse Reaction (Uncoded 09/07/20 11:16) Unknown Home Medications: Ambulatory Orders Medication Instructions Recorded Ascorbic Acid [Vitamin C] 500 mg PO DAILY 09/05/15 Aspirin E.C. [Ecotrin] 81 mg PO DAILY@0800 09/05/15 Calcium Carb/Vitamin D3/Vit K1 400 units PO BID 09/05/15 [Citracal Soft Chew] Zegerid 40 mg Capsule 40 - 1,100 mg PO DAILY 09/05/15 Meclizine HCl [Antivert] 1 tab PO PRN PRN 11/19/16 Verapamil [Calan] 120 mg PO DAILY 01/05/17 Duloxetine Hcl [Cymbalta] 60 mg PO DAILY 03/11/17 Magnesium Oxide [Magnesium] 400 mg PO DAILY 03/11/17 Vitamin D3/Folic Acid [Roxifol-D 1,000 unit PO BID 03/11/17 Tablet] Valacyclovir HCl [Valtrex] 1,000 mg PO DAILY 03/18/18 Ferrous Gluconate [Fergon] 270 mg PO DAILY 09/16/18 Gabapentin [Neurontin] 400 mg PO DAILY 09/16/18 Methocarbamol 500 mg PO PRN PRN 09/16/18 benzonatate 100 mg capsule 200 mg PO TID PRN #30 cap 02/26/19 Surgical History: Surgical History (Last Reviewed 09/16/19 @ 13:13 by Noa Woods) History of appendectomy Z98.890, Z90.49 History of dilation and curettage Z98.890 History of hysterectomy Z98.890, Z90.710 History of lithotripsy Z98.890 History of lumpectomy of right breast Z98.890 History of tonsillectomy Z98.890, Z90.89 Surgical History: - - Right breast lumpectomy, hysterectomy, appendectomy, tonsillectomy, D&C, lithotripsy. 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 Smoking Status: Never smoker Tobacco Use: Non-smoker Alcohol: None Drugs: None - *Family History Maternal Family History: Family History (Last Reviewed 09/16/19 @ 13:13 by Noa Woods) Mother Multiple myeloma Thyroid disorder Hypertension Hyperlipidemia Heart disease Diabetes Father Diabetes History Items: Cancer - Mother with a history of multimyeloma., Diabetes, High Cholesterol, Heart Disease, Hypertension, - - Mother with a history of thyroid disease. Paternal Family History: Family History (Last Reviewed 09/16/19 @ 13:13 by Noa Woods) Mother Multiple myeloma Thyroid disorder Hypertension Hyperlipidemia Heart disease Diabetes Father Diabetes History Items: Diabetes Review of Systems Constitutional: Reports: Anorexia, Malaise, Weakness, Fatigue. Denies: Chills, Fever, Weight Change HEENT: Denies: Head Aches, Sinus Congestion, Sinus Drainage Cardiovascular: Denies: Chest Pain, Palpitations Respiratory: Denies: Cough, Shortness of breath at rest, Sputum production Gastrointestinal: Reports: Abdominal Pain, Constipation, Nausea. Denies: Vomiting Genitourinary: Denies: Dysuria Musculoskeletal: Reports: Back Pain, Joint Pain, Joint stiffness, Leg Pain Skin: Denies: Rash, Wounds Neurological: Denies: Numbness, Tingling, Focal weakness Psychiatric: Reports: Anxiety, Depression, Suicidal Ideations - Some initial concern for suicidal ideations as noted concerns for possible overdose if she takes narcotics, further discussions patient denies specific intentions and has no plan, cleared per ED physician additionally.. Denies: Homicidal Ideations Hematologic/ Lymphatic: Denies: Easy Bruising, Easy Bleeding VTE Information - Inpt Only VTE Present on Admission: No VTE Mechan Device Prophylaxis: SCD's VTE Pharm Prophylaxis ordered?: Yes Subjective: Patient laying in the ED bed, fatigued, notes ongoing significant pain, severe right lower extremity radiculopathy especially with usage, somewhat improved with recent morphine in the ED. Objective: Physical Examination: General: awake, alert, oriented x 3 and cooperative, laying in the ED bed, fatigued appearing, notes right lower extremity radiculopathy and lumbar discomfort mildly improved with recent morphine. Skin: normal color, turgor, no icterus, cyanosis. HEENT: AT/NC, EOMI, PERRLA, moderately dry MM, no carotid bruits or JVD noted. Lungs: Diminished breath sounds, greater bases, moderate effort, no rales, ronchi or wheezing. Heart: Regular rate and rhythm; no gallop, rub audible. Abdomen: soft, overweight, NTTP, ND, mildly decreased bowel sounds, no HSM. Extremities: no cyanosis, clubbing, or edema. Positive right lower extremity straight leg raise with significant radiculopathy complaints. Neurological: patient awake, alert, oriented x 3; cognitive function intact; pupils equally reactive to light and accomodation; cranial nerves II-XII grossly normal, moving all 4 extremities although limited especially with significant movement attempts, right lower extremity leg raise as noted, strength accordingly severely globally decreased, sensation intact. Psychiatric: affect appears fatigued, tearful when discussing her ongoing pain issues, specifically denies any suicidal intentions or plan, evident depression, noted anxiety with discussions about using narcotic therapy as she is afraid to become addicted or overdose. - Physical Exam Vitals/I&O's: Vital Signs Temp Pulse Resp BP Pulse Ox 97.9 F 108 H 20 H 154/126 H 99 09/07/20 11:08 09/07/20 11:08 09/07/20 11:08 09/07/20 11:08 09/07/20 11:08 Oxygen Delivery Method Room Air Weight: 180 lb Body Mass Index (BMI) 28.1 Laboratory Results 09/07/20 12:25: WBC 6.1, RBC 4.54, Hgb 15.6 H, Hct 45.5, MCV 100.2 H, MCH 34.4 H , MCHC 34.3, RDW Std Deviation 49.1 H, RDW Coeff of Sarah 13.2, Plt Count 431, MPV 9.6, Immature Gran % (Auto) 0.800, Neut % (Auto) 63.2, Lymph % (Auto) 19.7, [place] % (Auto) 13.5 H, Eos % (Auto) 2.0, Baso % (Auto) 0.8, Absolute Neuts (auto) 3.8, Absolute Lymphs (auto) 1.20, Nucleated RBC % 0 09/07/20 12:25: Sodium 141, Potassium 3.5, Chloride 107, Carbon Dioxide 28.0, Anion Gap 6, BUN 18, Creatinine 1.02, Estim Creat Clear Calc 49.91, Est GFR (MDRD) Af Amer 69, Est GFR (MDRD) Non-Af 57 L, BUN/Creatinine Ratio 17.6, Glucose 101, Calcium 10.2 H 09/07/20 12:25: Ethyl Alcohol 4.0 Assessment/Plan All Active Problems (Last Reviewed 09/16/19 @ 13:13 by Noa Woods) Lumbar back pain with radiculopathy affecting right lower extremity (Acute) URI, acute (Acute) Other specified disorders of bone density and structure, unspecified site (Acute) Breast cancer, right breast (Resolved) Osteopenia (Acute) Anemia (Acute) The patient is a 70 y/o F w/ PMHx: CKD stage III, Hx R Breast CA s/p lumpectomy, GERD, OA, HTN, Depression and Anxiety, Chronic back pain with disc herniations in pain management who presents to the [facility] ED on 09/07/20 initially for planned outpatient MRI lumbar spine; however, patient reportedly was overheard her preference to end her life secondary to her ongoing intractable pain and has recently not been taking her medication secondary to the increased work it takes and apathy onset. 1. Acute Intractable Lumbar Back Pain with RLE Radiculopathy: MRI lumbar spine obtained on day of presentation with multilevel intervertebral disc disease with right foraminal extrusion at the L3-4 level, multilevel neural foraminal narrowing with impingement of the right exiting L3 nerve root, mild osteoarthritis with endplate spondylosis and facet joint arthrosis. Will admit to [facility], maintain on fall precautions, frequent positioning, initiate IV toradol, lidocaine patches, tizanidine, medrol dose pack, po/IV narcotic pain regimen, anti-emetics, bowel regimen. Will consult PT and OT for evaluation as well as Case management for discharge planning. Will consult Dr. Yeboah additionally if pain regimen and interventions not alleviating her symptoms versus referral upon discharge if appropriate. Given debility, she may necessitate placement. 2. Hypertension: Continue home regimen including verapamil, monitor blood pressure given elevation in the ED although in intractable pain and if ongoing elevations will necessitate regimen alteration, PRN hydralazine. 3. Anxiety and depression with concern of suicidal ideations: Patient noting significant ongoing pain and inability to continue to deal with this and concerned that she may overdose if she takes narcotics, cleared in the ED, will defer suicide precautions given her assurance that she has no plan nor any indication to incur self-harm, we will continue patient home Cymbalta regimen. Would benefit from consideration outpatient therapy also. 4. History of Breast CA: Right sided, unclear type, s/p lumpectomy, continue follow-up with Oncology, remission status. 5. Chronic Kidney Disease Stage III: Admission BUN/Cr 18/1.02, creatinine clearance 49, baseline renal function 0.9-1.2, repeat BMP in AM. 6. GERD: Maintain on famotidine. 7. DVT prophylaxis: SCDs, Lovenox. OBSV E&M: 39360 Initial observation care L3
[2020-09-07 13:10] VITALS: RESP 16
--- NOTE | 2020-09-07 13:21 | ED.VIS.GEN ---
History of Present Illness Chief Complaint: Suicidal Narrative: Patient presenting for evaluation secondary to back pain and for mental health evaluation. Patient has an underlying history of a recent onset of lower back pain with radiation of symptoms to the right leg. Patient states that she has been undergoing treatment for this which is included medications, but this has been persistently worsening over the course of the last month. Patient states that the pain is very severe radiates down her right leg. Is worse with ambulation, is causing her significant difficulty with getting around the house. Patient also reports that she has some numbness in her groin area, and has also developed some difficulty with controlling her bowels and bladder. Patient denies any fevers. Patient denies any chills night sweats or unintended weight loss. Patient states that the pain is so severe that it is actually clouding her judgment and is causing her to miss doses of her medications at home. Patient was on the way to the hospital today and made comments to both her transportation as well as the aircraft launch and recovery technician that the pain is so severe that if they do not figure it out I may overdose she denies that she specifically suicidal. She denies being homicidal or hallucinating. Past Medical History - Allergies and Home Meds Allergies/Adverse Reactions: Allergies Penicillins [PCN] Allergy (Verified 09/07/20 11:16) Unknown amoxicillin trihydrate [From Amoxil] Adverse Reaction (Verified 09/07/20 11:16) Rash ciprofloxacin [From Cipro] Adverse Reaction (Verified 09/07/20 11:16) Nausea ciprofloxacin HCl [From Cipro] Adverse Reaction (Verified 09/07/20 11:16) Nausea actonel Adverse Reaction (Uncoded 09/07/20 11:16) Unknown norvasc Adverse Reaction (Uncoded 09/07/20 11:16) Unknown Primary Care Physician: Maurilio Castillo MD [Primary Care Provider] - Prior records reviewed: Yes Past Medical History: - - Past history of breast cancer Smoking Status: Never smoker Review of Systems All systems negative except as indicated General: Denies: Chills, Fever, Sweats Eyes: Denies: Visual changes - bilaterally, Diplopia ENT: Denies: Rhinorrhea, Sore throat Cardiovascular: Denies: Chest pain, Palpitations Respiratory: Denies: Dyspnea, Cough, Dyspnea on exertion Gastrointestinal: Denies: Abdominal pain, Nausea, Vomiting, Diarrhea, Melena, Hematochezia Genitourinary: Denies: Dysuria, Hematuria, Frequency Musculoskeletal: Reports: Back pain, Extremity Pain Skin: Denies: Rash, Wounds Neurological: Reports: Numbness, - - Bowel and bladder incontinence Physical Exam Vital Signs/Narrative: Vital Signs Temp Pulse Resp BP Pulse Ox 09/07/20 13:10 16 09/07/20 11:08 97.9 F 108 H 20 H 154/126 H 99 Inital Vital Signs reviewed: Yes General: Well nourished, Well developed, No Acute Distress Head: Normocephalic, Atraumatic Eyes: Perrl, EOMI ENT: Moist mucous membranes, No rhinorrhea Neck: Supple, Nontender Cardiovascular: Regular rate, Regular rhythm, No murmurs, - - 2+ radial, 2+ DP pulses bilaterally symmetric Respiratory: No distress, CTA bilaterally, Chest nontender Abdomen: Soft, Nontender, Nondistended, Normal bowel sounds Back: Normal Inspection Extremities: Nontender, No edema, - - Positive straight leg raise bilaterally. Skin: Normal color, No rash Neurological: Alert, Oriented x3, Cranial nerves II-XII grossly intact, Normal Strength, Normal Sensation, - - 5 out of 5 strength at the hip knee ankle and foot with normal sensation over all dermatomes. 1+ bilateral patellar and Achilles reflexes negative clonus. Psychological: Normal affect, Normal Mood Diagnostic/Tx/Re-eval - Medical Decision Making Patient presented for mental health evaluation as well as intractable back pain. I reviewed the patient's MRI results which do show that she has a significant amount of right sided disc disease consistent with the patient's symptoms. She does not have cauda equina syndrome. I do not feel that the patient is suicidal, but rather is seeking relief of her pain. I do not feel that she requires psychiatric stabilization at this time. However, she is unable to ambulate and is having severe pain with radicular back symptoms, and I believe that she would benefit from admission. I discussed this with the hospitalist. ED Disposition - Plan for ED Patient: Disposition: Acute Care Hospital [facility] Diagnosis: Intractable back pain, Lumbar radiculopathy, acute Referrals: Maurilio Castillo MD [Primary Care Provider] -
--- NOTE | 2020-09-07 13:31 | NURSING ---
med surg white intractable back pain, declining functional status, lumbar radiculopathy
[2020-09-07 13:54] VITALS: BP 164/89; PULSE 68; RESP 16; TEMP 36.9; O2SAT 99
[2020-09-07 15:21] VITALS: BP 173/91; PULSE 71; RESP 18; TEMP 37.2; O2SAT 100; BMI 26.7
[2020-09-07 15:50] LABS: Magnesium 1.8 mg/dL (1.6-2.6)
[2020-09-07] MEDS: 0.9% Normal Saline 1,000 ML 100 ML IV (16:03)
[2020-09-07] MEDS: tiZANidine HCl 2 MG Tablet PO ×2 (16:09→21:18)
[2020-09-07] MEDS: Gabapentin 300 MG Capsule PO (16:09)
[2020-09-07] MEDS: Ketorolac 15 MG/ML Vial IV ×2 (16:09→21:20)
[2020-09-07] MEDS: MethylPREDNISolone DosePak 4 MG BOX PO ×2 (17:15→21:17)
[2020-09-07 21:15] VITALS: BP 138/76; PULSE 88; RESP 16; TEMP 36.6; O2SAT 94
[2020-09-07] MEDS: Famotidine 20 MG Tablet PO (21:20)
[2020-09-07] MEDS: oxyCODONE 5 MG Tablet PO (23:19)
[2020-09-07] MEDS: Senna/Docusate Sodium 1 Tablet 2 TABLET PO (23:20)
[2020-09-07] MEDS: Acetaminophen 325 MG Tablet 650 MG PO (23:20)
[2020-09-07] MEDS: Temazepam 15 MG Capsule PO (23:20)
[2020-09-08] VITALS (13 sets, daily range): BP systolic 119–174; BP diastolic 67–113; PULSE 72–99; RESP 16–18; TEMP 36.1–36.6; O2SAT 92–100; BMI 26.7
[2020-09-08] MEDS: tiZANidine HCl 2 MG Tablet PO (05:34)
[2020-09-08] MEDS: Ketorolac 15 MG/ML Vial IV ×2 (05:34→15:54)
[2020-09-08 06:41] LABS: Absolute Lymphocyte Count 0.63 X10^3/uL (0.83-4.51); Absolute Neutrophil Count 3.3 X10^3/uL (2.0-7.7); Basophil# 0.02 X10^3/uL; Basophil% 0.5 % (0-1); Eosinophil# 0.01 X10^3/uL; Eosinophils% 0.2 % (0-5); Hematocrit 40.1 % (37-47); Hemoglobin 13.1 g/dL (12.0-15.0); Lymphocyte # 0.63 X10^3/ul (4.0); Mean Corp Hgb Conc 32.7 g/dL (32-36); Mean Corpuscular Hgb 33.2 pg (27.0-32.0); Mean Corpuscular Volume 101.8 fL (81-99); Mean Platelet Vol. 9.4 fl (6.2-12.0); Monocyte# 0.26 X10^3/uL; Monocyte% 6.2 % (0-10); NRBC Flagged by Analyzer 0 % (0-5); Neutrophil # 3.25 X10^3/uL (2.7-7.7); Neutrophil % 77.1 % (47-70); Platelet Count 375 K/mm3 (150-450); RBC Distribution Width CV 13.3 % (11.6-14.6); RBC Distribution Width SD 50.5 fl (35.1-43.9); Red Blood Count 3.94 M/mm3 (4.2-5.4); White Blood Count 4.2 K/mm3 (4.4-11.0)
[2020-09-08 07:08] LABS: ALB/GLOB Ratio 1.1 RATIO (0.9-2.4); AST(SGOT) 19 U/L (15-37); Alanine Aminotransfer ALT/SGPT 27 U/L (13-56); Albumin, Serum 3.2 g/dL (3.2-5.0); Alkaline Phosphatase 63 U/L (45-117); Anion Gap 5 (5-15); BUN 21 mg/dL (7-18); BUN/Creat Ratio 21.5 RATIO (10-20); Calcium,Total 8.6 mg/dL (8.5-10.1); Chloride 107 mmol/L (98-107); Creatinine, Serum 0.98 mg/dL (0.55-1.02); EST Glomerular Filtration Rate 60 mL/min (>60); Est Glom Filt Rate - Afr Amer 72 mL/min (>60); Estimated Creatinine Clearance 51.94 ml/min; Globulin 2.8 g/dL (2.2-4.2); Glucose 115 mg/dL (74-106); Potassium 4.1 mmol/L (3.5-5.1); Sodium Level 137 mmol/L (136-145)
[2020-09-08] MEDS: oxyCODONE 5 MG Tablet PO ×3 (08:07→22:43)
[2020-09-08] MEDS: MethylPREDNISolone DosePak 4 MG BOX PO (08:07)
[2020-09-08] MEDS: Gabapentin 300 MG Capsule PO ×3 (08:07→16:58)
[2020-09-08] MEDS: Acetaminophen 325 MG Tablet 650 MG PO ×2 (08:07→16:58)
[2020-09-08] MEDS: Verapamil SR 240 MG Tablet 120 MG PO (08:08)
[2020-09-08] MEDS: DULoxetine Hcl 30 MG Capsule 90 MG PO (08:08)
[2020-09-08] MEDS: Lidocaine 5% Patch 2 PATCH TOPICAL (08:09)
[2020-09-08] MEDS: Enoxaparin 40 MG/0.4 ML Syringe SC (08:12)
[2020-09-08] MEDS: Famotidine 20 MG Tablet PO ×2 (08:12→21:23)
[2020-09-08] MEDS: dexAMETHasone 4 MG/ML Vial IV ×2 (12:39→16:58)
--- NOTE | 2020-09-08 13:22 | CASEMGMT ---
Social Work Note SW reviewed chart. Pt was cleared by ED physician for suicide precautions. SW in to speak with pt. SW introduced self and role at [facility]. Pt is alert and orientated x3. Living Arrangements: Pt states that she is , lives alone in a one story home. Pt states her was on hospice a few years ago and the house was made to fit his needs at that time. Pt states she has three steps to enter from the garage but she has rails on the steps that she uses. DME: [facility], [facility] PCP: Dr. Castillo Bumpass: Pt states her was in the , pt states she was a Family Dynamics/Relationships: Pt states that she has a brother but he is currently in [place] and will not be back until Spring/Summer. Pt states she has nephews but the closest nephew is two hours away. Pt states that she has good friends (Lisette, Libertad) that are supportive and have been helping pt. Pt states one of her friends are currently taking care of her two dogs (Yorkie and Beagle/Corgi). Pt states her friends though have their own lives and grandkids and don't like to ask for help all that much from them. Pt states she has two step children (step son and step daughter) that live in [place]. Pt states her step daughter is handicapped. Pt states her step son will call pt occasionally to speak to her and will provide an update on pt's step daughter. Transportation: Hospital Van currently. Pt states before her pain started she was able to drive herself ADLs: Requires assistance on ADLs at this time due to pain. Pt states before her pain started in July she was completely independent. Pt states she has to preserve her energy and do limited activities. Specialists: Dr. Long. Dr. Peralta. Pt also states she see's a chiropractor Health History: Pt states that her pain started in the beginning of July 2020. Pt states that she was getting SI Joint Shot with Dr. Long and noticed the pain starting. Pt states that she has had injections before and is concerned that they are not working enough for her. Pt states they will work for a little bit and then the pain starts again. Pt states the pain is only on her right side leg and it goes up her body. Pt states she was unable to lift her arm up until recently. Pt states that she also has a history of cancer. Pt states she has history of breast cancer and skin cancer. Pt states her oncologist is Dr. Peralta. Pt states I am doing everything that has been said to do and I still have pain. Pt states she does exercises, walks with a walker, utilizes a back brace. Mental Health Hx: Pt's chart states pt has anxiety and depression. SW spent much time with pt talking about her depression. Pt states she thinks her depression started two years ago when her . Pt states they were for 35 years and she saw her on [place]. Pt states that her also had cancer (bladder). Pt states he was diagnosed and then was told he had six weeks to live. Pt states her was sent home with Hospice where she saw pt deteriorate and pass away. Pt states her ended up in a coma and again states it was [facility] Mayra that he passed. SW spoke with pt regarding how difficult it must've been to watch her pass in front of her. Pt tearful throughout conversation. Pt states that she is currently on depression medication that is prescribed through her PCP. Pt denied any history of suicidal thoughts/plans/ideations. SW spoke with pt regarding the comment she made yesterday regarding her pain. Pt states I was in so much pain, I said if you can't make the pain stop I would figure out a way to make it stop. Pt does admit she was thinking about suicide when she stated this comment. SW asked pt if she had a plan. Pt states I have over the counter medication (Advil, Tylenol) and I was going to mix them together and figured something would've happened. Pt states I am so embarrassed about it. Pt states I was with my friend Lisette, who was the friend that brought pt to the hospital, and she was around when I made the comment. Pt states Lisette had told me she had to talk to the doctor at the ED because Lisette knew about my PCP. Pt states she was scheduled to come [facility] yesterday because she had a MRI scheduled. Pt states when I was done with my MRI, I was told that there was going to be a Computer Installer that needed to talk to me. Pt states I didn't think I did anything wrong. SW spoke with pt about when pt makes comments about hurting themselves, staff need to intervene and make sure pt is safe. SW informed pt that she did nothing wrong, it was a safety concern at the moment. Pt states well my brother knows about it now and that makes me embarrassed too. SW informed pt that it is nothing to be embarrassed about and spoke with pt more about the pain she was in. Pt states when I am in that much pain, I just have brain fog, I can't think, I can't read, I can't focus. Pt states I would never hurt myself. Pt states I haven't been able to sleep and I get so much pain sometimes I puke. Pt denied any history of suicidal thoughts/plans/ideations, states yesterday was the first time she ever thought about it. Pt states I don't know what would happen though if I was discharged home and I was in the same pain as I was yesterday. Pt states if she had that pain again she would think about taking the over counter medications again. SW asked pt if the medications could be removed from her house, pt states they are just over the counter medications. Pt denied additional lethal means in the house, denied any weapons. Pt again states I would never hurt myself. Pt states I don't think I am brave enough to harm myself. Pt states I am feeling much better now though. Pt states I don't know what the doctor did last night but it relieved some of my pain. Pt denied any current suicidal thoughts/plans/ideations. Counseling Hx: MALIKA spoke with pt about Mental Health Counseling. Pt states after my passed, Hospice followed me for about a year and I attended grief counseling, group counseling, spoke to high school social science teacher, had the opportunity to do one on one counseling but never did. SW spoke with pt regarding current depression. Pt admits that she thinks she is currently depressed. SW spoke with pt about how beneficial counseling can be and encouraged pt to follow up with counseling as an outpatient. Pt states whatever you think will help. SW explained benefits of counseling and how before pt discharges, a counseling appointment can be arranged for pt before she leaves. Pt agreeable to taking counseling resources. Counseling resources provided. Deterrents: Pt states I am a God Fearing Woman. Pt also states she wouldn't want to put her friends/family through suicide. Pt states one of her friends' committed suicide and she saw what it did to her friend. Pt states her family and friends would be upset. Coping Skills: SW spoke with pt regarding coping skills for pt. Pt states she loves to read, states she currently likes to read about mysteries. Pt states her friend brought in her Mirella so she is able to read. Pt states she used to like to cook but when she was diagnosed with cancer, she stopped cooking. Pt states she does like to eat out and states before COVID her and her friends would go out to eat, states [employer] was a favorite place to do. SW spoke with pt about calling her friends/family if she starts to feel down/depressed. Pt states I know if I needed something, I could call my friends and thy would help out. Pt states that her friends ands family are supportive and she feels supportive. Pt states my brother has his phone on do not disturb at night so he probably wouldn't answer but maybe he would now that he knows about the comment I made yesterday. Pt states she used to exercise 5x a week at [employer]. Pt states she used to do their water exercises but haven't been able to do so since COVID. Goals: Pt states her goals are to 1. Be able to walk on leg again 2. Walk without a walker Discharge Plan: SW spoke with pt regarding discharge plans. SW spoke with pt regarding SNF for short term therapy. Pt agreeable to SNF. Pt first mentioned [facility]. SW provided pt with list of SNF that accept pt's insurance with Medicare ratings. [facility]. SW explained that this worker can send a referral to any SNF that she wants this worker to do. Pt agreeable to [facility]. SW explained Medicare rules and guidelines for SNF. MALIKA placed a call to [facility] in [facility] and provided referral. [facility] states TCU is able to accept pt tomorrow. Sade states that on pt's home medication list there is a medication called Zegerid. Sade states per pharmacy, that medication will cost $3000 a month. Sade states pt will not be able to admit to TCU with medication. MALIKA spoke with Physician on plan for TCU tomorrow, that pt will not be able to be discharged on Zegerid, and that pt will need COVID test ordered. Charge Nurse updated on need for COVID test. During the time on conversation pt was initially tearful and at the end was less tearful and able to laugh with this worker. Pt has future goals for herself and states that her family and friends are supportive. Pt had stated that her synagogue, friends and family are reasons as to why she wouldn't commit suicide. Pt states no history of suicidal thoughts/plans/ideations before yesterday and does make the correlation that her pain that she was in, was making her brain foggy yesterday. Pt repeatedly stated she would never hurt herself during conversation with this worker. ED physician had cleared pt of suicidal precautions and per the report the ED physician stated I do not feel that the patient is suicidal, but rather is seeking relief of her pain. Pt is agreeable to taking counseling resources and will likely be agreeable to having an appointment made for her at a mental health agency when she is discharged from TCU. Pt currently denied any suicidal thoughts/plans/ideations. Pt appeared in good spirits at the end of conversation. Green sheet on chart. Plan: TCU tomorrow Esthela Witt COMMUNICATIONS PROGRAM MANAGER, CHAIRMAN PRESIDENT AND CHIEF EXECUTIVE OFFICER
--- NOTE | 2020-09-08 14:10 | PCM.NTREPORT ---
Nutrition Therapy Report - History Nutrition Services has been consulted to:: Manage nutrient details of diet order Current diet / nutrition support order:: NPO - Anthropometric Measurements Height:: 5 ft 7 in Weight:: 77.4 kg Body Mass Index (BMI):: 26.7 - Relevant Labs Relevant Labs:: WBC 4.2 K/mm3 (4.4-11.0) L 09/08/20 06:04 RBC 3.94 M/mm3 (4.2-5.4) L 09/08/20 06:04 Hgb 15.6 g/dL (12.0-15.0) H 09/07/20 12:25 MCV 101.8 fL (81-99) H 09/08/20 06:04 MCH 33.2 pg (27.0-32.0) H 09/08/20 06:04 RDW Std Deviation 50.5 fl (35.1-43.9) H 09/08/20 06:04 Immature Gran % (Auto) 1.000 % (0.0-0.9) H 09/08/20 06:04 Neut % (Auto) 77.1 % (47-70) H 09/08/20 06:04 Lymph % (Auto) 15.0 % (19-41) L 09/08/20 06:04 Haines % (Auto) 13.5 % (0-10) H 09/07/20 12:25 Absolute Lymphs (auto) 0.63 X10^3/uL (0.83-4.51) L 09/08/20 06:04 BUN 21 mg/dL (7-18) H 09/08/20 06:04 Est GFR (MDRD) Non-Af 57 mL/min (>60) L 09/07/20 12:25 BUN/Creatinine Ratio 21.5 RATIO (10-20) H 09/08/20 06:04 Glucose 115 mg/dL (74-106) H 09/08/20 06:04 Calcium 10.2 mg/dL (8.5-10.1) H 09/07/20 12:25 Total Protein 6.0 g/dL (6.4-8.2) L 09/08/20 06:04 - Assessment Food / Nutrition-Related History:: Pt reports decreased appetite w/ poor PO intake over past few weeks. Stated she started seeing a chiropractor before Jaylene who told her to follow a low sugar diet to reduce inflammation. Pt states she stopped eating fruit she enjoys (like bananas) because she was told they have too much sugar. Pt states she had severe constipation r/t back pain and pain medications. She reports that her friend was bringing her food because she was in pain and since she had cancer, the smell of cooking meat makes her sick. States she was mostly consuming soups/bone broth for ~1 week RUG SETTER AXMINSTER. UBW 180# and CBW 170.6#- 9.4#/5.2% wt loss < 1 month, significant for malnutrition. Unclear why pt is NPO at present, pt reports eating omlet for breakfast. - Nutrition Diagnosis Problem / Etiology / Signs & Symptoms (PES):: Pt w/ acute, severe malnutrition related to inadequate energy intake, knowledge deficit regarding healthful diet as evidenced by PO intake meeting less than 50% of estimated needs for >5 days, wt loss of 9.4#/5.2% <1 month, reported statements of following a low sugar diet that excludes fruit. Evidence of Malnutrition Exists:: Yes Severe PCM:: Acute Illness - Nutrition Intervention Nutrition Prescription:: 5800-6855 calories, 50-60 g protein/day - Food / Nutrient Delivery Interventions Summary of nutrition intervention:: Pt very agreeable to nutrition education, states she will do what's best for her diet. Explained need for general, healthful diet to help pt regain strength. Pt verbalized understanding. Handout provided. Nutrition support ordered as / adjusted to:: recommend regular diet when medically indicated; ensure enlive w/ medpass when able to resume PO diet. Nutrition education provided?: Yes - MNT Monitoring Further MNT monitoring and evaluation required?: Yes MNT Follow-up in:: 3-5 days
[2020-09-08] MEDS: Lactated Ringers 1,000 ML 100 ML IV (14:54)
[2020-09-08] MEDS: Bupivacaine Mpf 0.5% 30 ML VIAL (15:10)
[2020-09-08] MEDS: Lidocaine 1% (5 ml sdv) 5 ML Vial (15:14)
[2020-09-08] MEDS: MethylPREDNISolone Acetate 40 MG/ML Vial IM (15:15)
--- NOTE | 2020-09-08 15:24 | PCM.OPRPT ---
Problem List (1) Intractable back pain Status: Acute (2) Lumbar back pain with radiculopathy affecting right lower extremity Status: Acute (3) Lumbar radiculopathy, acute Status: Acute Report of Operation Date of Procedure: 09/08/20 Pre-Operative Diagnosis: Lumbosacral radiculitis, lumbar disc displacement, acute low back pain Post-Operative Diagnosis: Lumbosacral radiculitis, lumbar disc displacement, acute low back pain Description of Surgical Findings:: Indication for the procedure: The patient is a 70-year-old female who was admitted to the hospital on 09/08/2020 for right-sided low back pain and right leg pain the patient was evaluated by the ER physician as well as the hospitalist a consult was placed to evaluate the patient for possible injection after reviewing her MRI dated 09/08/2020 the below mentioned was performed on the patient to alleviate her symptoms, a surgical consult was also placed for further evaluation. PREOPERATIVE DIAGNOSES: 1. Lumbosacral radiculitis. 2. Lumbosacral degenerative disk disease. 3. Lumbosacral spinal stenosis. POSTOPERATIVE DIAGNOSES: 1. Lumbosacral radiculitis. 2. Lumbosacral degenerative disk disease. 3. Lumbosacral spinal stenosis. PROCEDURE PERFORMED: Right-sided lumbar transforaminal epidural steroid injection, L3-4 and L4-5. ANESTHESIA: MAC. BLOOD LOSS: Minimal. COMPLICATIONS: None. DESCRIPTION OF PROCEDURE: History and physical of today was reviewed. Risks and benefits of the procedure were explained. The patient understood and agreed to proceed. Informed consent was obtained. IV inserted per routine protocol. The patient was taken to the operating room and placed in the prone position with a pillow positioned underneath the abdomen. The right side side of his lower back was prepped and draped in a sterile fashion using iodine x3. Under fluoroscopy guidance on oblique view, the L3 through L5 vertebral bodies were visualized. The skin and subcutaneous tissue was anesthetized with approximately 5 mL of 1% lidocaine using a 25-gauge regular needle. Under direct visualization with fluoroscopy at approximately 35-degree angle, starting on the right L3, ending on the right L5, using a 22-gauge 5-inch spinal needle, the needle was advanced via the skin. The tip of the needle was maneuvered and directed towards the inferior and medial gutter of the transverse process at the superiormost aspect of the neural foramen. Once the tip of the needle was at the vicinity of the foramen, after negative aspiration for blood or CSF, a total of 1 mL of contrast was injected in divided doses between both levels to confirm correct placement of the needle as well as medial spread. The confirmation was obtained on AP as well as lateral view. After repeated negative aspiration and confirmation on AP as well as lateral view, a total of 6 mL of preservative-free 0.25% Marcaine with 80 mg of Depo-Medrol was injected in divided doses between both levels. The needles were then removed intact. The patient experienced no sign or symptoms of intrathecal or intravascular injection. The patient experienced no paresthesia. The procedure was completed without any apparent difficulty or any complications. The patient appeared to tolerate it well. ASSESSMENT AND PLAN: This is a 70-year-old female with lumbosacral radiculitis, lumbosacral degenerative disk disease, and lumbosacral spinal stenosis, status post right-sided lumbar transforaminal epidural steroid injection at L3-4 and L4-5. The patient will continue her current medications. The patient will follow up in approximately 2 weeks for reevaluation, a surgical consult will be placed for possible surgical evaluation
--- NOTE | 2020-09-08 15:29 | CASEMGMT ---
Social Work Note SW back in to speak with pt to provide resources. Pt currently off floor. SW placed counseling resources and Palliative Care Brochure on pt's table. SW called report to Debbie Peña [facility] PARA EDUCATOR. Esthela Witt SUEDE BRUSHER, PARA EDUCATOR
[2020-09-08] MEDS: HYDROmorphone 0.5 MG/0.5 ML SYRINGE IV (18:31)
[2020-09-08] MEDS: 0.9% Saline Lock 10 ML Syringe IV ×2 (18:32→21:23)
--- NOTE | 2020-09-08 18:40 | PN_ITS ---
Patient Problems: Active and Suspected Problems (Last Reviewed 09/16/19 @ 13:13 by Noa Woods) Lumbar back pain with radiculopathy affecting right lower extremity (Acute) Intractable back pain (Acute) Lumbar radiculopathy, acute (Acute) Subjective: Patient seen and examined today, she underwent an epidural steroid injection at L3-L4 and L4-L5, patient was very tearful today before her injection and initially did not want to go through the injection but I talked with her at length about the benefits of the procedure and she agreed to undergo the injection. I contacted her pain management physician this morning and he agreed to perform the injection which was done this afternoon. I transition the patient over to IV Decadron this morning, she has told social work coordinator that she would like to go to TCU rather than go home. Patient will probably be stable tomorrow for transfer to TCU for further care. - Physical Exam Vitals/I&O's: Vital Signs Temp Pulse Resp BP Pulse Ox 97.9 F 79 16 163/113 H 95 09/08/20 17:02 09/08/20 17:02 09/08/20 17:02 09/08/20 17:02 09/08/20 17:02 Oxygen Flow Rate (L/min) 3 Oxygen Delivery Method Room Air Weight: 77.4 kg Body Mass Index (BMI) 26.7 Intake and Output for Last 24 Hours 09/06/20 09/07/20 09/08/20 23:59 23:59 23:59 Intake Total 1700 / 1700 Output Total 1050 / 1050 Balance 650 / 650 General: Alert, Oriented x3, Cooperative, No apparent distress, Well developed HEENT: Atraumatic, PERRLA, EOMI, Normocephalic Oral: Moist Mucosa Neck: Supple, No JVD, Trachea Midline, Thyroid Normal Size and Texture Lungs: Clear to auscultation, Normal air movement, No rhonchi, No wheeze, No rales Cardiovascular: Regular rate, Regular Rhythm, Normal S1, Normal S2, No murmurs, PMI Normal, No rub noted, No Gallop Abdomen: Bowel Sounds Present, Soft, Non Tender, Non-Distended Extremities: No clubbing, No cyanosis, No edema, Capillary Refill Less than 3 Seconds Skin: No rashes, No breakdown Musculoskeletal: No Tenderness to Palpation of Joints or Extremities Neurological: Cranial nerves II-XII grossly intact, Neuro grossly intact, Sensory exam intact to light touch and pain Psych/Mental Status: Appropriate, Depressed Laboratory Results 09/08/20 06:04: WBC 4.2 L, RBC 3.94 L, Hgb 13.1, Hct 40.1, MCV 101.8 H, MCH 33.2 H, MCHC 32.7, RDW Std Deviation 50.5 H, RDW Coeff of Sarah 13.3, Plt Count 375, MPV 9.4, Immature Gran % (Auto) 1.000 H, Neut % (Auto) 77.1 H, Lymph % (Auto) 15.0 L, [place] % (Auto) 6.2, Eos % (Auto) 0.2, Baso % (Auto) 0.5, Absolute Neuts (auto) 3.3, Absolute Lymphs (auto) 0.63 L, Nucleated RBC % 0 09/08/20 06:04: Sodium 137, Potassium 4.1, Chloride 107, Carbon Dioxide 25.0, Anion Gap 5, BUN 21 H, Creatinine 0.98, Estim Creat Clear Calc 51.94, Est GFR (MDRD) Af Amer 72, Est GFR (MDRD) Non-Af 60, BUN/Creatinine Ratio 21.5 H, Glucose 115 H, Calcium 8.6, Total Bilirubin 0.40, AST 19, ALT 27, Alkaline Phosphatase 63, Total Protein 6.0 L, Albumin 3.2, Globulin 2.8, Albumin/Globulin Ratio 1.1 Current Medications Acetaminophen (Acetaminophen 325 Mg Tablet) 650 mg PO Q6H PRN PRN PRN Reason: Pain Score 1-10/Temp > 100.7 F Last Admin: 09/08/20 16:58 Dose: 650 mg Documented by: Albuterol Sulfate (Albuterol 2.5 Mg/3 Ml Vial.Neb.) 2.5 mg INHALATION Q2H PRN PRN PRN Reason: Dyspnea, wheezing Dexamethasone Sodium Phosphate (Dexamethasone 4 Mg/Ml Vial) 4 mg IV Q6 COUNTS INCLUDE 234 BEDS AT THE [facility] Last Admin: 09/08/20 16:58 Dose: 4 mg Documented by: Duloxetine HCl (Duloxetine Hcl 60 Mg Capsule) 120 mg PO DAILY COUNTS INCLUDE 234 BEDS AT THE [facility] Enoxaparin Sodium (Enoxaparin 40 Mg/0.4 Ml Syringe) 40 mg SC DAILY COUNTS INCLUDE 234 BEDS AT THE [facility] Last Admin: 09/08/20 08:12 Dose: 40 mg Documented by: Famotidine (Famotidine 20 Mg Tablet) 20 mg PO BID COUNTS INCLUDE 234 BEDS AT THE [facility] Last Admin: 09/08/20 08:12 Dose: 20 mg Documented by: Gabapentin (Gabapentin 300 Mg Capsule) 300 mg PO TIDCM COUNTS INCLUDE 234 BEDS AT THE [facility] Last Admin: 09/08/20 16:58 Dose: 300 mg Documented by: Guaifenesin (Guaifenesin 10 Ml Udc (200mg/10ml)) 20 ml PO Q4H PRN PRN PRN Reason: COUGH Hydromorphone HCl (Hydromorphone 0.5 Mg/0.5 Ml Syringe) 0.5 mg IV Q4H PRN PRN PRN Reason: Pain Score 6-10 Last Admin: 09/08/20 18:31 Dose: 0.5 mg Documented by: Sodium Chloride () 250 mls @ 15 mls/hr IV .[id number] PRN PRN Reason: Saline Flush Sodium Chloride () 250 mls @ 15 mls/hr IV .[id number] PRN PRN Reason: Additional IVPB Infusion Lactated Ringer's () 1,000 mls @ 100 mls/hr IV .Q10H COUNTS INCLUDE 234 BEDS AT THE [facility] Last Admin: 09/08/20 14:54 Dose: 100 mls/hr Documented by: Ketorolac Tromethamine (Ketorolac 15 Mg/Ml Vial) 15 mg IV Q8 COUNTS INCLUDE 234 BEDS AT THE [facility] Stop: 09/08/20 22:01 Last Admin: 09/08/20 15:54 Dose: 15 mg Documented by: Lidocaine (Lidocaine 5% Patch) 2 patch TOPICAL DAILY COUNTS INCLUDE 234 BEDS AT THE [facility]; Protocol Last Admin: 09/08/20 08:09 Dose: 2 patch Documented by: Nitroglycerin (Nitroglycerin (Inpatient Use) 0.4 Mg Tab.Subl) 0.4 mg SUBLINGUAL Q5M PRN PRN Reason: CARDIAC/CHEST PAIN Ondansetron HCl (Ondansetron 4 Mg/2 Ml Vial) 4 mg IV Q8H PRN PRN PRN Reason: NAUSEA/VOMITING Oxycodone HCl (Oxycodone 5 Mg Tablet) 5 - 10 mg PO Q4H PRN PRN PRN Reason: Pain Score 4-5 Last Admin: 09/08/20 16:58 Dose: 5 mg Documented by: Psyllium Hydrophilic Mucilloid (Psyllium 1 Packet) 1 packet PO DAILY PRN PRN PRN Reason: Constipation Senna/Docusate Sodium (Senna/Docusate Sodium 1 Tablet) 2 tablet PO BID PRN PRN PRN Reason: Constipation Last Admin: 09/07/20 23:20 Dose: 2 tablet Documented by: Sodium Chloride (0.9% Saline Lock 10 Ml Syringe) 10 - 40 ml IV UD PRN PRN Reason: SALINE FLUSH Last Admin: 09/08/20 18:32 Dose: 10 ml Documented by: Temazepam (Temazepam 15 Mg Capsule) 15 mg PO QHS PRN PRN PRN Reason: INSOMNIA Last Admin: 09/07/20 23:20 Dose: 15 mg Documented by: Verapamil HCl (Verapamil Sr 240 Mg Tablet) 120 mg PO DAILYCM JEANNETTE Last Admin: 09/08/20 08:08 Dose: 120 mg Documented by: Medical Necessity - Tobacco Use Smoking Status: Never smoker Tobacco Use: Non-smoker Assessment/Plan All Active Problems (Last Reviewed 09/16/19 @ 13:13 by Noa Woods) Lumbar back pain with radiculopathy affecting right lower extremity (Acute) Intractable back pain (Acute) Lumbar radiculopathy, acute (Acute) URI, acute (Resolved) Breast cancer, right breast (Resolved) Anemia (Resolved) #1 acute on chronic lumbar pain secondary to degenerative disc disease of the lumbar spine-I increase the patient's Cymbalta dosage to 120 mg daily #2 acute L3-L4 disc protrusion-patient had an epidural performed today #3 generalized debility-PT and OT are working with the patient, she will require short-term placement in a halfway facility, it is planned that she will go to TCU when medically stable #4 chronic depression-again I increase the patient's Cymbalta today #5 lumbar radiculopathy-acute on chronic secondary to multilevel intervertebral disc disease and L3-L4 disc rupture Inpatient E&M: 18357 Init Hosp L3
[2020-09-08] MEDS: Ondansetron 4 MG/2 ML Vial IV (19:37)
--- NOTE | 2020-09-08 21:45 | RAD_ITS ---
STUDY: X-RAY - LUMBAR SPINE REASON FOR EXAM: Female, 70 years old. Block procedure TECHNIQUE: 3 fluoroscopic view(s) of the lumbar spine were obtained. COMPARISON: 09/07/20 FINDINGS: Fluoroscopic guidance was provided during a nerve block procedure. The total fluoroscopic time was 21.8 seconds. The total radiation dose was 4.72 mGy2. Correlation with the operative report is recommended. RAD/Lumbar Spine 2 or 3 Views IMPRESSION: As above. Electronically Signed: Magen Lovelace MD at 17:06 EST Tel , Service support ,
[2020-09-08] MEDS: Temazepam 15 MG Capsule PO (22:43)
[2020-09-09] MEDS: dexAMETHasone 4 MG/ML Vial IV ×3 (00:13→12:06)
[2020-09-09] MEDS: 0.9% Saline Lock 10 ML Syringe IV ×3 (00:14→12:07)
[2020-09-09] MEDS: HYDROmorphone 0.5 MG/0.5 ML SYRINGE IV (00:15)
[2020-09-09 05:00] VITALS: BP 152/92; PULSE 89; RESP 16; TEMP 36.4; O2SAT 94
[2020-09-09] MEDS: oxyCODONE 5 MG Tablet PO ×3 (05:05→14:23)
[2020-09-09 07:45] VITALS: BP 131/77; PULSE 86; RESP 18; TEMP 36.4; O2SAT 97
[2020-09-09] MEDS: Verapamil SR 240 MG Tablet 120 MG PO (08:01)
[2020-09-09] MEDS: Gabapentin 300 MG Capsule PO ×2 (08:01→12:07)
[2020-09-09] MEDS: DULoxetine Hcl 60 MG Capsule 120 MG PO (08:01)
[2020-09-09] MEDS: Famotidine 20 MG Tablet PO (08:01)
[2020-09-09] MEDS: Enoxaparin 40 MG/0.4 ML Syringe SC (08:02)
[2020-09-09] MEDS: Senna/Docusate Sodium 1 Tablet 2 TABLET PO (08:07)
[2020-09-09] MEDS: Acetaminophen 325 MG Tablet 650 MG PO (08:07)
--- NOTE | 2020-09-09 10:53 | PCM.TXEXTCAR ---
- Diet 09/09/20 05:18 Diet: Cardiac - Heart Healthy Is pt able to select menu?: Yes - Wound(s) LUMBAR Wound Type: Puncture - Therapies Weight Bearing: Full weight bearing Physical Therapy: Eval and Treat Occupational Therapy: Eval and Treat - Problem/Diagnosis (1) Ruptured lumbar disc Status: Acute (2) HTN (hypertension) Status: Chronic (3) Anxiety and depression Status: Chronic (4) Lumbar back pain with radiculopathy affecting right lower extremity Status: Acute (5) GERD (gastroesophageal reflux disease) Status: Chronic (6) Intractable back pain Status: Acute - Allergies/Procedures Done in Hospital Allergies/Adverse Reactions: Allergies Penicillins [PCN] Allergy (Verified 09/07/20 11:16) Unknown amoxicillin trihydrate [From Amoxil] Adverse Reaction (Verified 09/07/20 11:16) Rash ciprofloxacin [From Cipro] Adverse Reaction (Verified 09/07/20 11:16) Nausea ciprofloxacin HCl [From Cipro] Adverse Reaction (Verified 09/07/20 11:16) Nausea actonel Adverse Reaction (Uncoded 09/07/20 11:16) Unknown norvasc Adverse Reaction (Uncoded 09/07/20 11:16) Unknown Procedures: - - epidural injection 09/08/20 - Type of Care/Length of Stay Estimated LOS: Convalescent Care Less Than 30 days Type of Care Needed: Skilled Rehab Potential: Good Prognosis: Good - Additional Orders/Day of Discharge Additional Orders: Patient needs appointment to see Dr. Hawk Yeboah as new patient due to ruptured lumbar disc and radiculopathy H&P will serve as current which was dated: 09/07/20 Day of Discharge: 09/09/20 - Dietary and Speech Recommendations Dietitian Recommendations/Changes: Regular diet as medically indicated. Ensure Enlive w/ medpass if PO at meals is poor. - Follow Up Care Primary Care Physician: Maurilio Castillo MD [Primary Care Provider] -
[2020-09-09 14:20] VITALS: BP 119/68; PULSE 81; RESP 16; TEMP 36.4; O2SAT 96
--- NOTE | 2020-09-09 15:17 | NURSING ---
report called to Deysi in TCU
--- NOTE | 2020-09-10 09:23 | PCM.DC.SUM ---
Discharge Date and Diagnosis - Problem List Patient Problems: Active and Suspected Problems (Last Reviewed 09/16/19 @ 13:13 by Noa Woods) Ruptured lumbar disc (Acute) Lumbar back pain with radiculopathy affecting right lower extremity (Acute) Intractable back pain (Acute) Lumbar radiculopathy, acute (Acute) Date of Admission: 09/09/20 Date of Discharge: 09/09/20 - Primary Discharge Diagnosis Acute Problems: Active Problems (Last Reviewed 09/16/19 @ 13:13 by Noa Woods) #1 acute on chronic lumbar pain secondary to degenerative disc disease of the lumbar spine #2 acute L3-L4 disc protrusion (disc rupture) #3 generalized debility #4 chronic depression #5 lumbar radiculopathy-acute on chronic secondary to multilevel intervertebral disc disease and L3-L4 disc rupture - Secondary Discharge Diagnosis Chronic Problems: Chronic Problems (Last Reviewed 09/16/19 @ 13:13 by Noa Woods) Breast cancer (Chronic) Chronic kidney disease (Chronic) Depression (Chronic) Anxiety (Chronic) Dizziness (Chronic) Herpes simplex (Chronic) Iron deficiency anemia (Chronic) Neuropathic pain (Chronic) Muscle spasm (Chronic) Cough (Chronic) HTN (hypertension) (Chronic) CKD (chronic kidney disease), stage III (Chronic) Anxiety and depression (Chronic) GERD (gastroesophageal reflux disease) (Chronic) Other specified disorders of bone density and structure, unspecified site (Chronic) Osteopenia (Chronic) History of right breast cancer (Chronic) Hospital Course and Treatment Operations: None Procedures: - - Epidural injection-lumbar area Summary of Care Provided: The patient is a 70 year old F who was seen in the emergency room at [facility] with complaints of low back pain and radiation of pain into her right leg. Patient had been undergoing treatment for degenerative joint disease of the lumbar spine and was seeing a pain management physician and had outpatient injections performed. She states that despite all this, she has severe pain that radiates down her right leg causing her significant difficulty ambulating. Patient appeared to be distressed and complained to the emergency room doctor that she might overdose on her meds if she did not find a solution to her back and leg pain. Patient denied being suicidal however. Patient had a recent MRI of the lumbar spine performed here at [facility] which showed a ruptured disc at L3-L4. Multilevel disc disease was also noted to be present. Patient was admitted to MedSurg 3, she was placed on IV Decadron, she was given pain medication, and I contacted her pain management physician and arranged for her to have an epidural lumbar injection performed while she was in the hospital. Patient was seen by PT and OT, patient did not feel that she was stable enough to go home and requested temporary placement in snf facility. On 09/09/2020, patient was seen and examined:General: Alert, Oriented x3, Cooperative, No apparent distress, Well developed HEENT: Atraumatic, PERRLA, EOMI, Normocephalic Oral: Moist Mucosa Neck: Supple, No JVD, Trachea Midline, Thyroid Normal Size and Texture Lungs: Clear to auscultation, Normal air movement, No rhonchi, No wheeze, No rales Cardiovascular: Regular rate, Regular Rhythm, Normal S1, Normal S2, No murmurs, PMI Normal, No rub noted, No Gallop Abdomen: Bowel Sounds Present, Soft, Non Tender, Non-Distended Extremities: No clubbing, No cyanosis, No edema, Capillary Refill Less than 3 Seconds Skin: No rashes, No breakdown Musculoskeletal: No Tenderness to Palpation of Joints or Extremities Neurological: Cranial nerves II-XII grossly intact, Neuro grossly intact, Sensory exam intact to light touch and pain Psych/Mental Status: Appropriate, Depressed Patient stated to this examiner on 09/09/20 that she still has significant back and leg pain, I told her that initially after an epidural injection sometimes there is more pain and that she would have to continue with PT and OT at TCU and follow-up with an orthopedic surgeon for consultation. On 09/09/2020, patient was stable for discharge to TCU for further care. Patient Problems: Active and Suspected Problems (Last Reviewed 09/16/19 @ 13:13 by Noa Woods) Ruptured lumbar disc (Acute) Lumbar back pain with radiculopathy affecting right lower extremity (Acute) Intractable back pain (Acute) Lumbar radiculopathy, acute (Acute) - Physical Exam Vitals/I&O's: Vital Signs Temp Pulse Resp BP Pulse Ox 97.5 F L 81 16 119/68 96 09/09/20 14:20 09/09/20 14:20 09/09/20 14:20 09/09/20 14:20 09/09/20 14:20 Oxygen Flow Rate (L/min) 3 Oxygen Delivery Method Room Air Weight: 77.4 kg Body Mass Index (BMI) 26.7 Intake and Output for Last 24 Hours 09/08/20 09/09/20 09/10/20 23:59 23:59 23:59 Intake Total 1700 / 1700 1223.33 / 1223.33 Output Total 1050 / 1250 300 / 300 Balance 650 / 450 923.33 / 923.33 Microbiology Past 72 Hours 09/09/20 14:15 Mucosa - Nose SARS-CoV-2 Antigen (Rapid) - Final Home Medications: Medications to take at Discharge Calcium Carb/Vitamin D3/Vit K1 [Citracal-D3 500 mg Soft Chew] 400 units PO BID 09/05/15 Verapamil [Calan] 120 mg PO DAILY 01/05/17 Vitamin D3/Folic Acid [Roxifol-D Tablet] 1,000 unit PO BID 03/11/17 Acetaminophen [Tylenol Tablet] 650 mg PO Q6H PRN PRN tab 09/09/20 Duloxetine Hcl [Cymbalta] 120 mg PO DAILY 09/09/20 Gabapentin [Neurontin] 400 mg PO TIDCM 09/09/20 Methocarbamol [Robaxin-750] 750 mg PO TID PRN PRN #1 tab 09/09/20 Oxycodone [Oxyir] 5 - 10 mg PO Q4H PRN PRN 7 Days #14 tab 09/09/20 Pantoprazole Sodium [Protonix] 40 mg PO DAILY 09/09/20 Senna/Docusate Sodium [Senokot-S] 2 tab PO BID PRN PRN tab 09/09/20 Temazepam [Restoril] 15 mg PO QHS PRN PRN #7 cap 09/09/20 predniSONE tablet 20 mg PO UD 09/09/20 Following Prescriptions Were Given to Patient: Oxycodone [Oxyir] 5 - 10 mg PO Q4H PRN PRN 7 Days #14 tab PRN Reason: Pain Score 1-10 Prescription Printed Temazepam [Restoril] 15 mg PO QHS PRN PRN #7 cap PRN Reason: Insomnia Prescription Printed Methocarbamol [Robaxin-750] 750 mg PO TID PRN PRN #1 tab PRN Reason: Muscle Spasm Transmission Status: Received by [facility] Primary Care Physician: Maurilio Castillo MD [Primary Care Provider] - Disposition: Correction facility Minutes spent on discharge:: 31 Patient Condition:: Stable Medical Necessity - Tobacco Use Smoking Status: Never smoker Tobacco Use: Non-smoker Meaningful Use Info Meaningful Use Diagnoses (Choose all that apply): None applicable Inpatient E&M: 86329 Disch Hosp
--- NOTE | 2020-09-11 08:31 | CON.PCM_ITS ---
Problem List (1) Intractable back pain Status: Acute (2) Lumbar back pain with radiculopathy affecting right lower extremity Status: Acute (3) Lumbar radiculopathy, acute Status: Acute - Consult Date of Consult: 09/11/20 - Reason for Consult Problem List (1) Lumbar back pain with radiculopathy affecting right lower extremity Status: Acute History of Present Illness Date of Admission: 09/08/20 Chief Complaint: Intractable pain The patient is a 70 y/o F with history of chronic low back pain patient was admitted to the hospital on 09/07/2020 for intractable low back pain we were consulted and the patient for evaluation and possible injection, she stated the pain started approximately 3 weeks prior to admission with right-sided lower back pain and radiating pain to the right lower extremity extending from the lateral aspect of the thigh to the right calf area patient denies any bowel bladder issues patient stated medications to help but she continues to have this intractable pain with numbness tingling down the right leg Past Medical History Past Medical History (Chronic Problems): Chronic Problems HTN (hypertension) (Chronic) CKD (chronic kidney disease), stage III (Chronic) Anxiety and depression (Chronic) GERD (gastroesophageal reflux disease) (Chronic) History of right breast cancer (Chronic) Medical History: Medical History Anxiety F41.9 Arthritis M19.90 Breast cancer C50.919 GERD (gastroesophageal reflux disease) K21.9 Hay fever J30.1 Heart disease I51.9 Herniation of lumbar intervertebral disc M51.26 Kidney disease N28.9 Nephrolithiasis N20.0 Osteopenia M85.80 Hypertension I10 Allergies Penicillins [PCN] Allergy (Verified 09/07/20 11:16) Unknown amoxicillin trihydrate [From Amoxil] Adverse Reaction (Verified 09/07/20 11:16) Rash ciprofloxacin [From Cipro] Adverse Reaction (Verified 09/07/20 11:16) Nausea ciprofloxacin HCl [From Cipro] Adverse Reaction (Verified 09/07/20 11:16) Nausea actonel Adverse Reaction (Uncoded 09/07/20 11:16) Unknown norvasc Adverse Reaction (Uncoded 09/07/20 11:16) Unknown Home Medications: Ambulatory Orders Medication Instructions Recorded Ascorbic Acid [Vitamin C] 500 mg PO DAILY 09/05/15 Aspirin E.C. [Ecotrin] 81 mg PO DAILY@0800 09/05/15 Calcium Carb/Vitamin D3/Vit K1 400 units PO BID 09/05/15 [Citracal Soft Chew] Zegerid 40 mg Capsule 40 - 1,100 mg PO DAILY 09/05/15 Meclizine HCl [Antivert] 1 tab PO PRN PRN 11/19/16 Verapamil [Calan] 120 mg PO DAILY 01/05/17 Duloxetine Hcl [Cymbalta] 60 mg PO DAILY 03/11/17 Magnesium Oxide [Magnesium] 400 mg PO DAILY 03/11/17 Vitamin D3/Folic Acid [Roxifol-D 1,000 unit PO BID 03/11/17 Tablet] Valacyclovir HCl [Valtrex] 1,000 mg PO DAILY 03/18/18 Ferrous Gluconate [Fergon] 270 mg PO DAILY 09/16/18 Gabapentin [Neurontin] 400 mg PO DAILY 09/16/18 Methocarbamol 500 mg PO PRN PRN 09/16/18 benzonatate 100 mg capsule 200 mg PO TID PRN #30 cap 02/26/19 Surgical History: Surgical History History of appendectomy Z98.890, Z90.49 History of dilation and curettage Z98.890 History of hysterectomy Z98.890, Z90.710 History of lithotripsy Z98.890 History of lumpectomy of right breast Z98.890 History of tonsillectomy Z98.890, Z90.89 Surgical History: - - Right breast lumpectomy, hysterectomy, appendectomy, tonsillectomy, D&C, lithotripsy. 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 Smoking Status: Never smoker Tobacco Use: Non-smoker Alcohol: None Drugs: None - *Family History Maternal Family History: Family History Mother Multiple myeloma Thyroid disorder Hypertension Hyperlipidemia Heart disease Diabetes Father Diabetes History Items: Cancer - Mother with a history of multimyeloma., Diabetes, High Cholesterol, Heart Disease, Hypertension, - - Mother with a history of thyroid disease. Paternal Family History: Family History (Last Reviewed 09/16/19 @ 13:13 by Noa Woods) Mother Multiple myeloma Thyroid disorder Hypertension Hyperlipidemia Heart disease Diabetes Father Diabetes History Items: Diabetes Review of Systems Constitutional: Reports: Anorexia, Malaise, Weakness, Fatigue. Denies: Chills, Fever, Weight Change HEENT: Denies: Head Aches, Sinus Congestion, Sinus Drainage Cardiovascular: Denies: Chest Pain, Palpitations Respiratory: Denies: Cough, Shortness of breath at rest, Sputum production Gastrointestinal: Reports: Abdominal Pain, Constipation, Nausea. Denies: Vomiting Genitourinary: Denies: Dysuria Musculoskeletal: Reports: Back Pain, Joint Pain, Joint stiffness, Leg Pain Skin: Denies: Rash, Wounds Neurological: Denies: Numbness, Tingling, Focal weakness Psychiatric: Reports: Anxiety, Depression, Suicidal Ideations - Some initial concern for suicidal ideations as noted concerns for possible overdose if she takes narcotics, further discussions patient denies specific intentions and has no plan, cleared per ED physician additionally.. Denies: Homicidal Ideations Hematologic/ Lymphatic: Denies: Easy Bruising, Easy Bleeding VTE Information - Inpt Only VTE Present on Admission: No VTE Mechan Device Prophylaxis: SCD's VTE Pharm Prophylaxis ordered?: Yes Subjective: Patient laying in the ED bed, fatigued, notes ongoing significant pain, severe right lower extremity radiculopathy especially with usage, somewhat improved with recent morphine in the ED. Objective: Physical Examination: General: awake, alert, oriented x 3 and cooperative, laying in the bed, fatigued appearing, notes right lower extremity radiculopathy and lumbar discomfort mildly improved with recent morphine. Skin: normal color, turgor, no icterus, cyanosis. HEENT: AT/NC, EOMI, PERRLA, moderately dry MM, no carotid bruits or JVD noted. Lungs: No apparent discomfort Heart: Regular rate and rhythm; no gallop, rub audible. Abdomen: soft, overweight, NTTP, ND, mildly decreased bowel sounds, no HSM. Extremities: no cyanosis, clubbing, or edema. Positive right lower extremity straight leg raise, decreased range of motion of the lumbar spine worse with flexion. Neurological: patient awake, alert, oriented x 3; cognitive function intact; pupils equally reactive to light and accomodation; cranial nerves II-XII grossly normal, moving all 4 extremities although limited especially with significant movement attempts, right lower extremity leg raise as noted, strength accordingly severely globally decreased, sensation intact. Psychiatric: affect appears fatigued, tearful when discussing her ongoing pain issues, specifically denies any suicidal intentions or plan, evident depression, noted anxiety with discussions about using narcotic therapy as she is afraid to become addicted or overdose. - Physical Exam Vitals/I&O's: Vital Signs Temp Pulse Resp BP Pulse Ox 97.9 F 108 H 20 H 154/126 H 99 09/07/20 11:08 09/07/20 11:08 09/07/20 11:08 09/07/20 11:08 09/07/20 11:08 Oxygen Delivery Method Room Air Weight: 180 lb Body Mass Index (BMI) 28.1 Laboratory Results 09/07/20 12:25: WBC 6.1, RBC 4.54, Hgb 15.6 H, Hct 45.5, MCV 100.2 H, MCH 34.4 H , MCHC 34.3, RDW Std Deviation 49.1 H, RDW Coeff of Sarah 13.2, Plt Count 431, MPV 9.6, Immature Gran % (Auto) 0.800, Neut % (Auto) 63.2, Lymph % (Auto) 19.7, Gray % (Auto) 13.5 H, Eos % (Auto) 2.0, Baso % (Auto) 0.8, Absolute Neuts (auto) 3.8, Absolute Lymphs (auto) 1.20, Nucleated RBC % 0 09/07/20 12:25: Sodium 141, Potassium 3.5, Chloride 107, Carbon Dioxide 28.0, Anion Gap 6, BUN 18, Creatinine 1.02, Estim Creat Clear Calc 49.91, Est GFR (MDRD) Af Amer 69, Est GFR (MDRD) Non-Af 57 L, BUN/Creatinine Ratio 17.6, Glucose 101, Calcium 10.2 H 09/07/20 12:25: Ethyl Alcohol 4.0 Assessment/Plan Lumbar back pain with radiculopathy affecting right lower extremity (Acute) acute (Acute) The patient is a 70 y/o female with Chronic back pain with disc herniations in pain management who presents to the [facility] ED on 09/07/20 initially for planned outpatient MRI lumbar spine; however, patient reportedly was overheard her preference to end her life secondary to her ongoing intractable pain and has recently not been taking her medication secondary to the increased work it takes and apathy onset. 1. Acute Intractable Lumbar Back Pain with RLE Radiculopathy: MRI lumbar spine obtained on day of presentation with multilevel intervertebral disc disease with right foraminal extrusion at the L3-4 level, multilevel neural foraminal narrowing with impingement of the right exiting L3 nerve root, mild osteoart hritis with endplate spondylosis and facet joint arthrosis. We will schedule the patient for a right lumbar transforaminal epidural steroid injection L3-4, L4-5 patient will continue her current medications patient will follow as an outpatient in approximately 2 weeks for reevaluation.
== END 2020-09-09 15:40 | disposition skilled nursing facility (03) | DRG 552 ==
LOC: ED 13:27 → MS3 13:45
PROVIDERS: Anesthesiology Pain Medicine; Admitting Provider Family Medicine; Emergency Provider Emergency Medicine; PCP Family Medicine; Visit Provider Internal Medicine
PROC: 3E0S3BZ Introduction of Anesthetic Agent into Epidural Space, Percutaneous Approach (ICD-10-PCS; principal; 2020-09-08 14:55)
DX: M51.17 Intervertebral disc disorders with radiculopathy, lumbosacral region (principal); M48.07 Spinal stenosis, lumbosacral region; M51.36 Other intervertebral disc degeneration, lumbar region; N18.30 Chronic kidney disease, stage 3 unspecified; F32.9 Major depressive disorder, single episode, unspecified; F41.9 Anxiety disorder, unspecified; K21.9 Gastro-esophageal reflux disease without esophagitis; M47.9 Spondylosis, unspecified; I12.9 Hypertensive chronic kidney disease with stage 1 through stage 4 chronic kidney disease, or unspecified chronic kidney disease; Z79.82 Long term (current) use of aspirin; Z85.3 Personal history of malignant neoplasm of breast; Z80.7 Family history of other malignant neoplasms of lymphoid, hematopoietic and related tissues; Z82.49 Family history of ischemic heart disease and other diseases of the circulatory system; Z83.3 Family history of diabetes mellitus; Z87.442 Personal history of urinary calculi; Z90.49 Acquired absence of other specified parts of digestive tract; Z90.710 Acquired absence of both cervix and uterus; M51.26 Other intervertebral disc displacement, lumbar region; D50.9 Iron deficiency anemia, unspecified; M85.80 Other specified disorders of bone density and structure, unspecified site
CPT/HCPCS: 36415; 64483; 72100; 72148; 80048; 80053; 82077; 83735; 85025; 87426; 97110; 97162; 97530; 97802; 99251; 99284; J7030; J7120; A4216; G0463; J2405

== ENCOUNTER 2020-09-09 15:35 | Inpatient (IN) | payer MEDICARE, OTHER, SELFPAY ==
[2020-09-08 14:12] VITALS: BMI 26.7
[2020-09-09 16:00] VITALS: BP 142/74; PULSE 81; RESP 16; TEMP 36.7; O2SAT 94; BMI 27.8
--- NOTE | 2020-09-09 17:09 | PCM.HP.STD ---
Problem List (1) Debility Status: Acute (2) Sciatica Status: Acute (3) Breast cancer Status: Chronic (4) Chronic kidney disease Status: Chronic (5) Depression Status: Chronic (6) Anxiety Status: Chronic (7) Dizziness Status: Chronic (8) Herpes simplex Status: Chronic (9) Iron deficiency anemia Status: Chronic (10) Neuropathic pain Status: Chronic (11) Muscle spasm Status: Chronic (12) Cough Status: Chronic (13) HTN (hypertension) Status: Chronic Qualifiers: (14) Lumbar back pain with radiculopathy affecting right lower extremity Status: Acute (15) GERD (gastroesophageal reflux disease) Status: Chronic Qualifiers: History of Present Illness Date of Admission: 09/09/20 Chief Complaint: Here for rehabilitation, strengthening, prior to discharge home alone. 09/07/2020 The patient is a 70 year old Female with below past medical history presented to [facility] with suicidal ideation. Low back pain, right sciatica, worse with walking. Difficulty walking around the house. Difficulty with bowel, bladder, numbness. Pain severe, causing trouble with judgement. Thought about overdosing on medications. MRI negative for significant stenosis. Not suicidal, only seeking pain relief. 09/07/2020 Admit to Hospital. Toradol, Lidoderm, Tizanidine, Medrol Dose Pack, Narcotic pain medications for intractable low back pain. PT/OT for Longterm Facility. As needed Hydralazine for elevated blood pressure. 09/08/2020 Dr. Sanford performed right sided lumbar transforaminal epidural steroid injection L3-4, L4-5. 09/09/2020 Admit to TCU with debility, here for rehabilitation, strengthening, prior to discharge home alone. Past Medical History Past Medical History (Chronic Problems): Chronic Problems (Last Reviewed 09/16/19 @ 13:13 by Noa Woods) Breast cancer (Chronic) Chronic kidney disease (Chronic) Depression (Chronic) Anxiety (Chronic) Dizziness (Chronic) Herpes simplex (Chronic) Iron deficiency anemia (Chronic) Neuropathic pain (Chronic) Muscle spasm (Chronic) Cough (Chronic) HTN (hypertension) (Chronic) CKD (chronic kidney disease), stage III (Chronic) Anxiety and depression (Chronic) GERD (gastroesophageal reflux disease) (Chronic) Other specified disorders of bone density and structure, unspecified site (Chronic) Osteopenia (Chronic) History of right breast cancer (Chronic) Medical History: Medical History (Last Reviewed 09/16/19 @ 13:13 by Noa Woods) Anxiety F41.9 Arthritis M19.90 Breast cancer C50.919 GERD (gastroesophageal reflux disease) K21.9 Hay fever J30.1 Heart disease I51.9 Herniation of lumbar intervertebral disc M51.26 Kidney disease N28.9 Nephrolithiasis N20.0 Osteopenia M85.80 Hypertension I10 Allergies Penicillins [PCN] Allergy (Verified 09/07/20 11:16) Unknown amoxicillin trihydrate [From Amoxil] Adverse Reaction (Verified 09/07/20 11:16) Rash ciprofloxacin [From Cipro] Adverse Reaction (Verified 09/07/20 11:16) Nausea ciprofloxacin HCl [From Cipro] Adverse Reaction (Verified 09/07/20 11:16) Nausea actonel Adverse Reaction (Uncoded 09/07/20 11:16) Unknown norvasc Adverse Reaction (Uncoded 09/07/20 11:16) Unknown Home Medications: Ambulatory Orders Medication Instructions Recorded Calcium Carb/Vitamin D3/Vit K1 400 units PO BID 09/05/15 [Citracal-D3 500 mg Soft Chew] Verapamil [Calan] 120 mg PO DAILY 01/05/17 Vitamin D3/Folic Acid [Roxifol-D 1,000 unit PO BID 03/11/17 Tablet] Acetaminophen [Tylenol Tablet] 650 mg PO Q6H PRN PRN tab 09/09/20 Duloxetine Hcl [Cymbalta] 120 mg PO DAILY 09/09/20 Gabapentin [Neurontin] 400 mg PO TIDCM 09/09/20 Methocarbamol [Robaxin-750] 750 mg PO TID PRN PRN #1 tab 09/09/20 Oxycodone [Oxyir] 5 - 10 mg PO Q4H PRN PRN 7 Days 09/09/20 #14 tab Pantoprazole Sodium [Protonix] 40 mg PO DAILY 09/09/20 Senna/Docusate Sodium [Senokot-S] 2 tab PO BID PRN PRN tab 09/09/20 Temazepam [Restoril] 15 mg PO QHS PRN PRN #7 cap 09/09/20 predniSONE tablet 20 mg PO UD 09/09/20 Surgical History: Surgical History (Last Reviewed 09/16/19 @ 13:13 by Noa Woods) History of appendectomy Z98.890, Z90.49 History of dilation and curettage Z98.890 History of hysterectomy Z98.890, Z90.710 History of lithotripsy Z98.890 History of lumpectomy of right breast Z98.890 History of tonsillectomy Z98.890, Z90.89 Surgical History: appendectomy, dilatation and curettage, hysterectomy, tonsillectomy, - - Right breast lumpectomy, Lithotripsy. Psychiatric History: Anxiety, Depression MANAGING ATTORNEY History: No pertinent MANAGING ATTORNEY history Lives: Alone - , 08/17/2018. Smoking Status: Never smoker Tobacco Use: Non-smoker Alcohol: None Drugs: None - *Family History Maternal Family History: Family History (Last Reviewed 09/16/19 @ 13:13 by Noa Woods) Mother Multiple myeloma Thyroid disorder Hypertension Hyperlipidemia Heart disease Diabetes Father Diabetes History Items: Cancer - Mother with a history of multimyeloma., Diabetes, High Cholesterol, Heart Disease, Hypertension, - - Mother with a history of thyroid disease. Paternal Family History: Family History (Last Reviewed 09/16/19 @ 13:13 by Noa Woods) Mother Multiple myeloma Thyroid disorder Hypertension Hyperlipidemia Heart disease Diabetes Father Diabetes History Items: Diabetes Review of Systems Constitutional: Denies: Chills, Fever, Weight Change HEENT: Denies: Head Aches, Sinus Congestion, Sinus Drainage Cardiovascular: Denies: Chest Pain, Palpitations Respiratory: Denies: Cough, Shortness of breath at rest, Sputum production Gastrointestinal: Denies: Abdominal Pain, Nausea, Vomiting Genitourinary: Denies: Dysuria Musculoskeletal: Reports: Back Pain, Leg Pain - Right.. Denies: Joint Pain, Joint Tenderness Skin: Denies: Rash, Wounds Neurological: Denies: Numbness, Tingling, Focal weakness Psychiatric: Denies: Anxiety, Depression, Homicidal Ideations, Suicidal Ideations Hematologic/ Lymphatic: Denies: Easy Bruising, Easy Bleeding VTE Information - Inpt Only VTE Present on Admission: No VTE Mechan Device Prophylaxis: Knee High JEOVANY Hose VTE Pharm Prophylaxis ordered?: Yes Patient Problems: Active and Suspected Problems (Last Reviewed 09/16/19 @ 13:13 by Noa Woods) Debility (Acute) Sciatica (Acute) Lumbar back pain with radiculopathy affecting right lower extremity (Acute) - Physical Exam Vitals/I&O's: Vital Signs Temp Pulse Resp BP Pulse Ox 98.1 F 81 16 142/74 H 94 09/09/20 16:00 09/09/20 16:00 09/09/20 16:00 09/09/20 16:00 09/09/20 16:00 Oxygen Delivery Method Room Air Weight: 79.52 kg Body Mass Index (BMI) 27.8 General: Alert, Oriented x3, Cooperative HEENT: Atraumatic, PERRLA, EOMI, Normocephalic Neck: Supple, No JVD, Negative Carotid Bruits Lungs: Clear to auscultation, Normal air movement Cardiovascular: Regular rate, No murmurs Abdomen: Bowel Sounds Present, Soft, Non Tender Extremities: No edema, Capillary Refill Less than 3 Seconds Skin: No rashes, No breakdown Musculoskeletal: No Tenderness to Palpation of Joints or Extremities Neurological: Cranial nerves II-XII grossly intact Psych/Mental Status: Normal Affect, Appropriate Current Medications Acetaminophen (Acetaminophen 325 Mg Tablet) 650 mg PO Q6H PRN PRN PRN Reason: Pain Score 1-10/Temp > 100.7 F Duloxetine HCl (Duloxetine Hcl 60 Mg Capsule) 120 mg PO DAILY JEANNETTE Gabapentin (Gabapentin 300 Mg Capsule) 400 mg PO TIDCM JEANNETTE Methocarbamol (Methocarbamol 750 Mg Tablet) 750 mg PO TID PRN PRN PRN Reason: MUSCLE SPASM Non-Formulary Medication (Calcium Carb/Vitamin D3/Vit K1 [Citracal-D3 500 Mg Soft Chew]) 400 units PO BID JEANNETTE Non-Formulary Medication (Vitamin D3/Folic Acid [Roxifol-D Tablet]) 1,000 unit PO BID JEANNETTE Oxycodone HCl (Oxycodone 5 Mg Tablet) 5 - 10 mg PO Q4H PRN PRN PRN Reason: Pain Score 1-10 Pantoprazole Sodium (Pantoprazole Sodium 40 Mg Tablet) 40 mg PO DAILY JEANNETTE Prednisone (Prednisone 20 Mg Tablet) 20 mg PO UD JEANNETTE Senna/Docusate Sodium (Senna/Docusate Sodium 1 Tablet) tablet PO BID PRN PRN PRN Reason: Constipation Temazepam (Temazepam 15 Mg Capsule) 15 mg PO QHS PRN PRN PRN Reason: INSOMNIA Tuberculin PPD (Tuberculin,Purif.Prot.Deriv. 50 Tu/Ml Vial) 5 tu ID X1 ONE Stop: 09/10/20 10:01 Tuberculin PPD (Tuberculin,Purif.Prot.Deriv. 50 Tu/Ml Vial) 5 tu ID X1 ONE Stop: 09/17/20 10:01 Assessment/Plan All Active Problems (Last Reviewed 09/16/19 @ 13:13 by Noa Woods) Ruptured lumbar disc (Acute) Debility (Acute) Sciatica (Acute) Lumbar back pain with radiculopathy affecting right lower extremity (Acute) Intractable back pain (Acute) Lumbar radiculopathy, acute (Acute) URI, acute (Resolved) Breast cancer, right breast (Resolved) Anemia (Resolved) 70 year old female with below past medical history hospitalized for intractable low back pain, underwent lumbar epidural steroid injection, admitted to TCU with debility, here for rehabilitation, strengthening, prior to discharge home alone. Debility - PT/OT. Pain - Tylenol 1000MG Q6H PRN pain (1-3), Tramadol 50MG Q6H PRN pain (4-5), Oxycodone 10MG Q4H PRN pain (6-10). Bowel - Miralax 17GM daily, Senna/colace 2 tablets BID, MOM 30ML daily PRN, Dulcolax 10MG OR daily PRN. Adult immunization - Administer Prevnar 13, Pneumovax, Fluzone, COVID19 vaccine as appropriate. DVT prophylaxis - Lovenox 40MG SC daily. Calcium deficiency - Calcium 500MG BID. Vitamin D deficiency - D3 1000IU BID. Depression - Duloxetine 120MG daily, stable chronic long term acute care registered nurse use, GDR not recommended. Neuropathic pain - Gabapentin 400MG TID. Muscle spasm - Methocarbamol 750MG TID PRN. GERD - Pantoprazole 20MG daily. Insomnia - Temazepam 15MG QHS PRN. Lumbar radiculopathy - Prednisone 20MG daily thru 09/17/2020. Consult Dr. Yeboah.
[2020-09-09] MEDS: Gabapentin 400 MG Capsule PO (17:50)
[2020-09-09] MEDS: Senna/Docusate Sodium 1 Tablet 2 TABLET PO (17:50)
[2020-09-09] MEDS: oxyCODONE 5 MG Tablet 10 MG PO (22:04)
[2020-09-10 05:00] VITALS: BP 131/74; PULSE 90; RESP 18; TEMP 36.8; O2SAT 95
[2020-09-10 06:16] LABS: Absolute Lymphocyte Count 0.78 X10^3/uL (0.83-4.51); Absolute Neutrophil Count 10.7 X10^3/uL (2.0-7.7); Basophil# 0.02 X10^3/uL; Basophil% 0.2 % (0-1); Hematocrit 40.2 % (37-47); Lymphocyte # 0.78 X10^3/ul (4.0); Lymphocyte % 6.2 % (19-41); Mean Corp Hgb Conc 32.3 g/dL (32-36); Mean Corpuscular Hgb 33.6 pg (27.0-32.0); Mean Corpuscular Volume 103.9 fL (81-99); Mean Platelet Vol. 9.8 fl (6.2-12.0); Monocyte# 0.96 X10^3/uL; Monocyte% 7.6 % (0-10); NRBC Flagged by Analyzer 0 % (0-5); Neutrophil # 10.65 X10^3/uL (2.7-7.7); Neutrophil % 84.8 % (47-70); Platelet Count 395 K/mm3 (150-450); RBC Distribution Width CV 13.2 % (11.6-14.6); RBC Distribution Width SD 51.2 fl (35.1-43.9); Red Blood Count 3.87 M/mm3 (4.2-5.4); White Blood Count 12.6 K/mm3 (4.4-11.0)
[2020-09-10] MEDS: Polyethylene Glycol 3350 17 GM PACKET PO (06:32)
[2020-09-10] MEDS: Pantoprazole Sodium 40 MG Tablet PO (06:32)
[2020-09-10] MEDS: Enoxaparin 40 MG/0.4 ML Syringe SC (06:33)
[2020-09-10] MEDS: Senna/Docusate Sodium 1 Tablet 2 TABLET PO ×2 (06:33→16:11)
[2020-09-10] MEDS: DULoxetine Hcl 60 MG Capsule 120 MG PO (06:33)
[2020-09-10 06:45] LABS: Anion Gap 5 (5-15); BUN 34 mg/dL (7-18); BUN/Creat Ratio 30.1 RATIO (10-20); Calcium,Total 8.9 mg/dL (8.5-10.1); Chloride 108 mmol/L (98-107); Creatinine, Serum 1.13 mg/dL (0.55-1.02); EST Glomerular Filtration Rate 51 mL/min (>60); Est Glom Filt Rate - Afr Amer 61 mL/min (>60); Estimated Creatinine Clearance 43.37 ml/min; Glucose 107 mg/dL (74-106); Sodium Level 139 mmol/L (136-145)
[2020-09-10] MEDS: predniSONE 20 MG Tablet PO ×2 (08:08→16:11)
[2020-09-10] MEDS: Gabapentin 400 MG Capsule PO ×3 (08:08→16:11)
[2020-09-10] MEDS: Bisacodyl 10 MG Suppository RECTAL (11:19)
[2020-09-10] MEDS: Tuberculin,Purif.prot.deriv. 50 TU/ML Vial 5 ML ID (11:22)
--- NOTE | 2020-09-10 12:51 | NURSING ---
1130-pt passing gas but no bm since and starting to have abd discomfort dulcolax supp given and no hard stool obs to rectal vault. encouraged to drink more fluids as well.
[2020-09-10 14:02] VITALS: BP 124/64; PULSE 92; RESP 18; TEMP 36.2; O2SAT 95
[2020-09-10] MEDS: Magnesium Hydroxide 30 ML UDC PO (16:10)
[2020-09-10] MEDS: oxyCODONE 5 MG Tablet 10 MG PO (19:50)
[2020-09-10] MEDS: traMADol 50 MG Tablet PO (21:26)
[2020-09-11 05:00] VITALS: BP 153/93; PULSE 89; RESP 16; TEMP 36.9; O2SAT 93
[2020-09-11] MEDS: Polyethylene Glycol 3350 17 GM PACKET PO (05:26)
[2020-09-11] MEDS: Pantoprazole Sodium 40 MG Tablet PO (05:27)
[2020-09-11] MEDS: Enoxaparin 40 MG/0.4 ML Syringe SC (05:27)
[2020-09-11] MEDS: Senna/Docusate Sodium 1 Tablet 2 TABLET PO ×2 (05:27→16:56)
[2020-09-11] MEDS: DULoxetine Hcl 60 MG Capsule 120 MG PO (05:27)
[2020-09-11 06:05] LABS: BUN 37 mg/dL (7-18); Creatinine, Serum 0.92 mg/dL (0.55-1.02); EST Glomerular Filtration Rate 64 mL/min (>60); Estimated Creatinine Clearance 53.27 ml/min; Glucose 117 mg/dL (74-106)
[2020-09-11 06:06] LABS: Anion Gap 4 (5-15); BUN/Creat Ratio 40.3 RATIO (10-20); Calcium,Total 8.6 mg/dL (8.5-10.1); Chloride 106 mmol/L (98-107); Est Glom Filt Rate - Afr Amer 78 mL/min (>60); Potassium 4.6 mmol/L (3.5-5.1); Sodium Level 136 mmol/L (136-145)
--- NOTE | 2020-09-11 07:35 | NURSING ---
Patient was given warm prune juice with routine bowel protocol this am no results yet. Hasn't had a bowel movement since . Rn made aware.
[2020-09-11] MEDS: predniSONE 20 MG Tablet PO ×2 (08:25→16:55)
[2020-09-11] MEDS: Gabapentin 400 MG Capsule PO ×3 (08:25→16:55)
--- NOTE | 2020-09-11 10:42 | NURSING ---
Addendum entered by Zee Last 09/11/20 17:40: milk of magnesium ineffective, prune juice with butter given and Dr. Christy updated Addendum entered by Zee Last 09/11/20 14:50: SSE ineffective, milk of magnesium given Original Note: SSE given per order, will monitor effectiveness
--- NOTE | 2020-09-11 10:52 | PCA ---
Called and left message at Dr.Marcus Mills office regarding scheduling an appointment vs. if he will come here to see patient. awaiting a phone call back. RN and [employer] aware.
[2020-09-11] MEDS: Magnesium Hydroxide 30 ML UDC PO (13:09)
[2020-09-11] MEDS: oxyCODONE 5 MG Tablet 10 MG PO (13:10)
--- NOTE | 2020-09-11 14:51 | PCM.PN.RX ---
<Breanna Calderon M - Last Filed: 09/11/20 14:51> Progress Note - Pharmacy Subjective: TCU ADMISSION Objective: Allergies Penicillins [PCN] Allergy (Verified 09/07/20 11:16) Unknown amoxicillin trihydrate [From Amoxil] Adverse Reaction (Verified 09/07/20 11:16) Rash ciprofloxacin [From Cipro] Adverse Reaction (Verified 09/07/20 11:16) Nausea ciprofloxacin HCl [From Cipro] Adverse Reaction (Verified 09/07/20 11:16) Nausea actonel Adverse Reaction (Uncoded 09/07/20 11:16) Unknown norvasc Adverse Reaction (Uncoded 09/07/20 11:16) Unknown Current Medications Generic Name Dose Route Start Last Admin Trade Name Freq PRN Reason Stop Dose Admin Acetaminophen 1,000 mg 09/09/20 17:27 Acetaminophen 500 Mg Tablet PO Q6H PRN PRN Pain Score 1-3 Bisacodyl 10 mg 09/09/20 17:27 09/10/20 11:19 Bisacodyl 10 Mg Suppository RECTAL 10 mg DAILY PRN Administration Constipation Duloxetine HCl 120 mg 09/10/20 06:00 09/11/20 05:27 Duloxetine Hcl 60 Mg Capsule PO 120 mg DAILY JEANNETTE Administration Emollient Ointment 1 applic 09/09/20 22:00 09/11/20 05:35 Emollient Combination No.72 500 Ml Lotion TOPICAL 1 applicatio BID@0600,2200 JEANNETTE Administration Protocol Enoxaparin Sodium 40 mg 09/10/20 06:00 09/11/20 05:27 Enoxaparin 40 Mg/0.4 Ml Syringe SC 40 mg DAILY@0600 JEANNETTE Administration Gabapentin 400 mg 09/09/20 17:45 09/11/20 14:05 Gabapentin 400 Mg Capsule PO 400 mg TIDCM JEANNETTE Administration Magnesium Hydroxide 30 ml 09/09/20 17:26 09/11/20 13:09 Magnesium Hydroxide 30 Ml Udc PO 30 ml DAILY PRN Administration Constipation Methocarbamol 750 mg 09/09/20 16:08 Methocarbamol 750 Mg Tablet PO TID PRN PRN MUSCLE SPASM Nutritional Formula (Lactose Free) 120 ml 09/09/20 22:00 09/11/20 11:20 Ensure Enlive 120 Ml Liquid PO 120 ml 4X/DAY JEANNETTE Administration Oxycodone HCl 10 mg 09/09/20 17:27 09/11/20 13:10 Oxycodone 5 Mg Tablet PO 10 mg Q4H PRN PRN Administration Pain Score 6-10 Pantoprazole Sodium 40 mg 09/10/20 06:00 09/11/20 05:27 Pantoprazole Sodium 40 Mg Tablet PO 40 mg DAILY JEANNETTE Administration Polyethylene Glycol 17 gm 09/10/20 06:00 09/11/20 05:26 Polyethylene Glycol 3350 17 Gm Packet PO 17 gm DAILY JEANNETTE Administration Prednisone 20 mg 09/10/20 08:00 09/11/20 08:25 Prednisone 20 Mg Tablet PO 09/13/20 17:01 20 mg BIDCM JEANNETTE Administration Prednisone 20 mg 09/14/20 08:00 Prednisone 20 Mg Tablet PO 09/17/20 08:01 DAILYCM JEANNETTE Senna/Docusate Sodium 2 tablet 09/09/20 18:00 09/11/20 05:27 Senna/Docusate Sodium 1 Tablet PO 2 tablet BID JEANNETTE Administration Temazepam 15 mg 09/09/20 16:08 Temazepam 15 Mg Capsule PO QHS PRN PRN INSOMNIA Tramadol HCl 50 mg 09/09/20 17:26 09/10/20 21:26 Tramadol 50 Mg Tablet PO 50 mg Q6H PRN PRN Administration Pain Score 4-5 Tuberculin PPD 5 tu 09/17/20 10:00 Tuberculin,Purif.Prot.Deriv. 50 Tu/Ml Vial ID 09/17/20 10:01 X1 ONE Problem List (Last Reviewed 09/16/19 @ 13:13 by Noa Woods) Debility (Acute) Sciatica (Acute) Breast cancer (Chronic) Chronic kidney disease (Chronic) Depression (Chronic) Anxiety (Chronic) Dizziness (Chronic) Herpes simplex (Chronic) Iron deficiency anemia (Chronic) Neuropathic pain (Chronic) Muscle spasm (Chronic) Cough (Chronic) HTN (hypertension) (Chronic) Lumbar back pain with radiculopathy affecting right lower extremity (Acute) GERD (gastroesophageal reflux disease) (Chronic) Vital Signs Temp Pulse Resp BP Pulse Ox 98.5 F 89 16 153/93 H 93 09/11/20 05:00 09/11/20 05:00 09/11/20 05:00 09/11/20 05:00 09/11/20 05:00 Oxygen Delivery Method Room Air Weight: 79.52 kg Body Mass Index (BMI) 27.8 Sodium 136 mmol/L (136-145) 09/11/20 05:20 Potassium 4.6 mmol/L (3.5-5.1) 09/11/20 05:20 Chloride 106 mmol/L (98-107) 09/11/20 05:20 Carbon Dioxide 26.0 mmol/L (21.0-32.0) 09/11/20 05:20 Anion Gap 4 (5-15) L 09/11/20 05:20 BUN 37 mg/dL (7-18) H 09/11/20 05:20 Creatinine 0.92 mg/dL (0.55-1.02) 09/11/20 05:20 Est GFR (MDRD) Af Amer 78 mL/min (>60) 09/11/20 05:20 Est GFR (MDRD) Non-Af 64 mL/min (>60) 09/11/20 05:20 BUN/Creatinine Ratio 40.3 RATIO (10-20) H 09/11/20 05:20 Glucose 117 mg/dL (74-106) H 09/11/20 05:20 Assessment/Plan: 1. Pain: acetaminophen 1000mg PO Q6H PRN pain 1-3 or fever, tramadol 50mg PO Q6H PRN pain 4-5, and oxycodone 10mg Q4H PRN pain 6-10. Please continue to monitor for increased pain, PRN usage, and sedation. 2. DVT prophylaxis: enoxaparin 40mg SC daily. Please continue to monitor for S/S of bleeding/DVT, hemoglobin (last 13.0 g/dL), and platelets (last 395,000), renal function. 3. Neuropathic pain: gabapentin 400mg TIDCM. Please continue to monitor for neuropathic pain, renal function 4. Muscle spasm: methocarbamol 750mg PO TID PRN muscle spasm or pain. Please continue to monitor for muscle spasms and PRN usage. 5. GERD: pantoprazole 40mg daily. Please continue to monitor for S/S of GERD. 6. Lumbar radiculopathy: prednisone 20mg PO BID until 09/14/20, then 20mg PO daily through 09/17/20. Please continue to monitor for mood changes, weight changes, insomnia, fever, and vision changes. Psychotropic Medications: 7. Depression: duloxetine 120mg PO daily. Stable chronic long-term use, GDR not recommended. Please continue to monitor for worsening depression, renal function, and bleeding. 8.Insomnia: temazepam 15mg PO QHS PRN. Please continue to monitor BP (last 153/93 mmHg), HR (last 89) and insomnia. Unnecessary Medications: None Bowel Regimen: Miralax 17gm PO daily, senna/docusate 2T PO BID, MOM 30ml PO daily PRN constipation, and bisacodyl 10mg rectally daily PRN constipation. Please continue to monitor for S/S of constipation and PRN usage. Date of Note:: 09/11/20 - Provider Comments Provider responsibility: Provider responsible to enter orders to implement recommendations <Javier Christy Chi - Last Filed: 09/11/20 16:58> Progress Note - Pharmacy Subjective: [] Objective: Allergies Penicillins [PCN] Allergy (Verified 09/07/20 11:16) Unknown amoxicillin trihydrate [From Amoxil] Adverse Reaction (Verified 09/07/20 11:16) Rash ciprofloxacin [From Cipro] Adverse Reaction (Verified 09/07/20 11:16) Nausea ciprofloxacin HCl [From Cipro] Adverse Reaction (Verified 09/07/20 11:16) Nausea actonel Adverse Reaction (Uncoded 09/07/20 11:16) Unknown norvasc Adverse Reaction (Uncoded 09/07/20 11:16) Unknown Current Medications Generic Name Dose Route Start Last Admin Trade Name Freq PRN Reason Stop Dose Admin Acetaminophen 1,000 mg 09/09/20 17:27 Acetaminophen 500 Mg Tablet PO Q6H PRN PRN Pain Score 1-3 Bisacodyl 10 mg 09/09/20 17:27 09/10/20 11:19 Bisacodyl 10 Mg Suppository RECTAL 10 mg DAILY PRN Administration Constipation Duloxetine HCl 120 mg 09/10/20 06:00 09/11/20 05:27 Duloxetine Hcl 60 Mg Capsule PO 120 mg DAILY [facility] Administration Emollient Ointment 1 applic 09/09/20 22:00 09/11/20 05:35 Emollient Combination No.72 500 Ml Lotion TOPICAL 1 applicatio BID@0600,2200 [facility] Administration Protocol Enoxaparin Sodium 40 mg 09/10/20 06:00 09/11/20 05:27 Enoxaparin 40 Mg/0.4 Ml Syringe SC 40 mg DAILY@0600 JEANNETTE Administration Gabapentin 400 mg 09/09/20 17:45 09/11/20 14:05 Gabapentin 400 Mg Capsule PO 400 mg TIDCM JEANNETTE Administration Magnesium Hydroxide 30 ml 09/09/20 17:26 09/11/20 13:09 Magnesium Hydroxide 30 Ml Udc PO 30 ml DAILY PRN Administration Constipation Methocarbamol 750 mg 09/09/20 16:08 Methocarbamol 750 Mg Tablet PO TID PRN PRN MUSCLE SPASM Nutritional Formula (Lactose Free) 120 ml 09/09/20 22:00 09/11/20 11:20 Ensure Enlive 120 Ml Liquid PO 120 ml 4X/DAY JEANNETTE Administration Oxycodone HCl 10 mg 09/09/20 17:27 09/11/20 13:10 Oxycodone 5 Mg Tablet PO 10 mg Q4H PRN PRN Administration Pain Score 6-10 Pantoprazole Sodium 40 mg 09/10/20 06:00 09/11/20 05:27 Pantoprazole Sodium 40 Mg Tablet PO 40 mg DAILY JEANNETTE Administration Polyethylene Glycol 17 gm 09/10/20 06:00 09/11/20 05:26 Polyethylene Glycol 3350 17 Gm Packet PO 17 gm DAILY JEANNETTE Administration Prednisone 20 mg 09/10/20 08:00 09/11/20 08:25 Prednisone 20 Mg Tablet PO 09/13/20 17:01 20 mg BIDCM [facility] Administration Prednisone 20 mg 09/14/20 08:00 Prednisone 20 Mg Tablet PO 09/17/20 08[facility]01 [facility] Senna/Docusate Sodium 2 tablet 09/09/20 18:00 09/11/20 05:27 Senna/Docusate Sodium 1 Tablet PO 2 tablet BID [facility] Administration Temazepam 15 mg 09/09/20 16:08 Temazepam 15 Mg Capsule PO QHS PRN PRN INSOMNIA Tramadol HCl 50 mg 09/09/20 17:26 09/10/20 21:26 Tramadol 50 Mg Tablet PO 50 mg Q6H PRN PRN Administration Pain Score 4-5 Tuberculin PPD 5 tu 09/17/20 10:00 Tuberculin,Purif.Prot.Deriv. 50 Tu/Ml Vial ID 09/17/20 10:01 X1 ONE Problem List (Last Reviewed 09/16/19 @ 13:13 by Noa Woods) Debility (Acute) Sciatica (Acute) Breast cancer (Chronic) Chronic kidney disease (Chronic) Depression (Chronic) Anxiety (Chronic) Dizziness (Chronic) Herpes simplex (Chronic) Iron deficiency anemia (Chronic) Neuropathic pain (Chronic) Muscle spasm (Chronic) Cough (Chronic) HTN (hypertension) (Chronic) Lumbar back pain with radiculopathy affecting right lower extremity (Acute) GERD (gastroesophageal reflux disease) (Chronic) Vital Signs Temp Pulse Resp BP Pulse Ox 98.5 F 94 16 136/86 H 93 09/11/20 14:52 09/11/20 14:52 09/11/20 14:52 09/11/20 14:52 09/11/20 14:52 Oxygen Delivery Method Room Air Weight: 79.52 kg Body Mass Index (BMI) 27.8 Sodium 136 mmol/L (136-145) 09/11/20 05:20 Potassium 4.6 mmol/L (3.5-5.1) 09/11/20 05:20 Chloride 106 mmol/L (98-107) 09/11/20 05:20 Carbon Dioxide 26.0 mmol/L (21.0-32.0) 09/11/20 05:20 Anion Gap 4 (5-15) L 09/11/20 05:20 BUN 37 mg/dL (7-18) H 09/11/20 05:20 Creatinine 0.92 mg/dL (0.55-1.02) 09/11/20 05:20 Est GFR (MDRD) Af Amer 78 mL/min (>60) 09/11/20 05:20 Est GFR (MDRD) Non-Af 64 mL/min (>60) 09/11/20 05:20 BUN/Creatinine Ratio 40.3 RATIO (10-20) H 09/11/20 05:20 Glucose 117 mg/dL (74-106) H 09/11/20 05:20 Assessment/Plan: Psychotropic Medications: Unnecessary Medications: Bowel Regimen: - Provider Comments Provider responsibility: Provider responsible to enter orders to implement recommendations Provider Comments to Recommendations by Pharmacy: Agree
[2020-09-11 14:52] VITALS: BP 136/86; PULSE 94; RESP 16; TEMP 36.9; O2SAT 93
--- NOTE | 2020-09-11 16:25 | CASEMGMT ---
Social Work Discussed patient's code status. Pt confirmed full code. MOLST form reviewed, communication to , placed in chart. Daisy Peña, MACHINE TOOL REBUILDER TURNAROUND PLANNER
[2020-09-11] MEDS: traMADol 50 MG Tablet PO (17:01)
--- NOTE | 2020-09-11 17:35 | RAD_ITS ---
STUDY: X-RAY - ABDOMEN/PELVIS REASON FOR EXAM: Female, 70 years old. Constipation. TECHNIQUE: Two AP supine views of the abdomen and pelvis. COMPARISON: None. FINDINGS: Normal visualized lung bases. There is a nonspecific bowel gas pattern. Mildly increased feces in the descending and rectosigmoid colon. There are dilated loops of small bowel in the right upper quadrant There is no demonstrated free abdominal air. The visualized liver, spleen and kidneys are grossly normal in size and morphology. Normal soft tissue structures. Normal visualized osseous structures. RAD/Abdomen Single View IMPRESSION: 1. Increased colonic feces suspicious for constipation. 2. Mildly dilated small bowel loops in the right midabdomen. Question ileus versus early or incomplete obstruction. Electronically Signed: Garrett Celaya DO at 18:01 EST Tel [phone], Service support ,
--- NOTE | 2020-09-11 19:30 | NURSING ---
Dr. Christy notified of KuB results. New orders given for Magnesium Citrate 300ml x 1.
[2020-09-11] MEDS: Magnesium Citrate 300 ML PO (21:00)
[2020-09-12 02:40] VITALS: BP 146/96; PULSE 95; RESP 18; TEMP 36.6; O2SAT 94
[2020-09-12 02:41] LABS: Bedside Glucose 160 mg/dL (70-110)
--- NOTE | 2020-09-12 02:55 | NURSING ---
Addendum entered by Jamia Fenton 09/12/20 05:47: Bowel sounds hypoactive in all quadrants. Pt states feels very gases. Original Note: Patient calls out reporting that her gown is soaked with sweat. This nurse assessed this patient VS Bp-146/96 sitting, Temp- 97.9 oral, RR-18, HR-95, & BS 160 at this time. Nurse bladder scanned patient do to not putting out a lot of urine 67 ml. Patient has a blood blister located on LUQ of abdominal area has a bruising in that area d/t getting routine Lovenox. Patient hasn't had a bowel movement since 09/07/20 was given mag citrate and no result at this time. Rn aware.
[2020-09-12] MEDS: Acetaminophen 500 MG Tablet 1000 MG PO (04:38)
[2020-09-12 05:34] VITALS: BP 151/97; PULSE 85; RESP 16; TEMP 36.8; O2SAT 94
[2020-09-12] MEDS: Enoxaparin 40 MG/0.4 ML Syringe SC (05:40)
[2020-09-12] MEDS: Pantoprazole Sodium 40 MG Tablet PO (05:41)
[2020-09-12] MEDS: Senna/Docusate Sodium 1 Tablet 2 TABLET PO ×2 (05:41→17:17)
[2020-09-12] MEDS: DULoxetine Hcl 60 MG Capsule 120 MG PO (05:41)
[2020-09-12] MEDS: predniSONE 20 MG Tablet PO ×2 (08:30→17:17)
[2020-09-12] MEDS: Gabapentin 400 MG Capsule PO ×3 (08:30→17:17)
[2020-09-12] MEDS: traMADol 50 MG Tablet PO (08:36)
[2020-09-12] MEDS: Lactulose 20 GM/30 ML UDC 200 GM RECTAL (10:39)
--- NOTE | 2020-09-12 11:25 | NURSING ---
LACTULOSE ENEMA GIVEN PER ORDERS. POSITIVE RESULTS ARE X LARGE LOOSE.
[2020-09-12] MEDS: oxyCODONE 5 MG Tablet 10 MG PO ×3 (11:30→21:33)
[2020-09-12 11:33] VITALS: BP 136/94; PULSE 87; RESP 20; TEMP 36.1; O2SAT 95
--- NOTE | 2020-09-12 19:13 | NURSING ---
Return to bed from bsc with 1 assist using wheeled walker. Iceman applied to rt knee. Reports nausea improved since shiloh diamond given earlier today and would like additional shiloh diamond. Call light placed with reach. Emotional support and active listening provided.
[2020-09-13 05:00] VITALS: BP 127/78; PULSE 77; RESP 18; TEMP 36.6; O2SAT 94
[2020-09-13] MEDS: DULoxetine Hcl 60 MG Capsule 120 MG PO (05:01)
[2020-09-13] MEDS: Polyethylene Glycol 3350 17 GM PACKET PO (05:01)
[2020-09-13] MEDS: Enoxaparin 40 MG/0.4 ML Syringe SC (05:06)
[2020-09-13] MEDS: Senna/Docusate Sodium 1 Tablet 2 TABLET PO ×2 (05:07→17:38)
[2020-09-13] MEDS: Pantoprazole Sodium 40 MG Tablet PO (05:07)
[2020-09-13] MEDS: predniSONE 20 MG Tablet PO ×2 (08:17→17:38)
[2020-09-13] MEDS: Gabapentin 400 MG Capsule PO ×3 (08:17→17:38)
[2020-09-13] MEDS: traMADol 50 MG Tablet PO (08:19)
--- NOTE | 2020-09-13 13:05 | CASEMGMT ---
Social Work IDT met with patient, brother and ESTER via conference call for care plan meeting. Discussed patient's progress in therapy. See therapy notes for further details. Pt progressing well. Pt has f/u appt with for potential surgery 09/15. Will await outcome of appt for further direction on DC planning. Explained Medicare benefit. The goal is for pt to return home alone when it is safe to do so. SW will continue to assist as needed with emotional and verbal support. Pt expresses appreciation. SW will assist with Palliative consult and setting up counseling appt at DC, as directed by pt. Family appreciative as well. Will continue to follow. Daisy Peña, KEVIN VÁSQUEZW
[2020-09-13] MEDS: oxyCODONE 5 MG Tablet 10 MG PO ×2 (13:46→19:38)
[2020-09-13 16:00] VITALS: BP 124/74; PULSE 91; RESP 16; TEMP 35.8; O2SAT 90
--- NOTE | 2020-09-13 16:23 | CHAPLAIN ---
Type of Pastoral Visit _x__ Initial Visit ___ Follow-up Visit ___ On-call Visit ___ General Patient Visit ___ Spiritual Assessment ___ Family Conference ___ Bereavement ___ Rapid Response ___ Code Blue ___ Other (describe below) Pastoral Care Referral From _x__ Patient ___ Family ___ Nurse ___ Physician ___ Clinical Training Coordinator ___ Plugger Man ___ Other (describe below) Sacrament/Intervention _x__ Active listening ___ Anointing ___ Mormon _x__ Bereavement ___ Communion _x__ Carrie exploration ___ _x__ Life review _x__ Prayer ___ Reconciliation ___ Sacrament of Sick _x__ Supportive presence ___ Wedding ___ Other (describe below) Pastoral Comments patient is welcoming of spiritual care support and openly talks about her physical and emotional suffering; pt openly talks about her desire and expression of getting out of this pain but makes it clear that she has no intention of physical harm to herself or suicide; pt refers to this several times and says people will hold that against me but I was just in so much pain; pt states that today has been better for her and that she has some hope and some possible avenues for help; pt states that she is receiving great care and is thankful to be in TCU; pt has some friends that are helpful to her but her support system may be limited according to report of family out of state; pt has Latter Day background but listens to mormon services online from local [employer] and likes that; prayer is welcomed; future visits are welcome
[2020-09-14] VITALS (9 sets, daily range): BP systolic 125–190; BP diastolic 76–137; PULSE 75–90; RESP 16–18; TEMP 36.1–36.9; O2SAT 92–97
[2020-09-14] MEDS: Polyethylene Glycol 3350 17 GM PACKET PO (04:28)
[2020-09-14] MEDS: Enoxaparin 40 MG/0.4 ML Syringe SC (04:32)
[2020-09-14] MEDS: Senna/Docusate Sodium 1 Tablet 2 TABLET PO ×2 (04:32→18:07)
[2020-09-14] MEDS: DULoxetine Hcl 60 MG Capsule 120 MG PO (04:32)
[2020-09-14] MEDS: Pantoprazole Sodium 40 MG Tablet PO (04:32)
--- NOTE | 2020-09-14 04:36 | EKG12_ITS ---
Test Reason : CP Blood Pressure : / mmHG Vent. Rate : 077 BPM Atrial Rate : 077 BPM P-R Int : 152 ms QRS Dur : 078 ms QT Int : 388 ms P-R-T Axes : 015 007 036 degrees QTc Int : 439 ms Normal sinus rhythm Normal ECG When compared with ECG of 26-NOV-2000 01:39, No significant change was found Confirmed by DANNY ROCHA, ISAIAS ([id number]), restaurant expeditor BRINA GAMBOA ([id number]) on 09/20/2020 11:18:51 AM Referred By: NUPUR Confirmed By:ISAIAS DELGADO MD
[2020-09-14] MEDS: Mag Hydrox/Al Hydrox/Simeth 30 ML UDC PO (04:51)
[2020-09-14] MEDS: oxyCODONE 5 MG Tablet 10 MG PO ×3 (04:51→23:09)
--- NOTE | 2020-09-14 05:00 | NURSING ---
Patient c/o chest pain radiating to left side of jaw. Feels gas pressure in her chest. Feels like she has to burp. Patient burps with no relief. EKG ordered shows normal sinus rhythm. Patient's BPs running high. Dr. Christy notified of this. [facility]
[2020-09-14] MEDS: predniSONE 20 MG Tablet PO (08:53)
[2020-09-14] MEDS: Gabapentin 400 MG Capsule PO ×3 (08:53→18:07)
[2020-09-14] MEDS: Acetaminophen 500 MG Tablet 1000 MG PO (08:57)
[2020-09-14] MEDS: traMADol 50 MG Tablet PO ×2 (08:58→18:10)
--- NOTE | 2020-09-14 11:03 | NURSING ---
PT STATED SHE FELT DIZZY AND HOT WITH THERAPY. VITALS DONE,HEAT TURNED DOWN IN ROOM. REPORTED TO RN.
--- NOTE | 2020-09-14 11:50 | MDS.RN ---
Completed pain interview for LUX 09/16/20.
--- NOTE | 2020-09-14 13:26 | NURSING ---
Resident and family updated on current COVID status on the unit.
[2020-09-15 01:54] VITALS: BP 150/84; PULSE 90; RESP 18; TEMP 36.4; O2SAT 92
[2020-09-15] MEDS: traMADol 50 MG Tablet PO ×2 (02:32→17:02)
[2020-09-15] MEDS: Polyethylene Glycol 3350 17 GM PACKET PO (05:16)
[2020-09-15] MEDS: Senna/Docusate Sodium 1 Tablet 2 TABLET PO ×2 (05:17→17:03)
[2020-09-15] MEDS: Pantoprazole Sodium 40 MG Tablet PO (05:17)
[2020-09-15] MEDS: DULoxetine Hcl 60 MG Capsule 120 MG PO (05:17)
[2020-09-15] MEDS: Enoxaparin 40 MG/0.4 ML Syringe SC (05:18)
[2020-09-15 05:23] VITALS: PULSE 84; RESP 16; O2SAT 95
[2020-09-15] MEDS: oxyCODONE 5 MG Tablet 10 MG PO ×3 (06:24→21:20)
[2020-09-15] MEDS: predniSONE 20 MG Tablet PO (08:13)
[2020-09-15] MEDS: Gabapentin 400 MG Capsule PO ×3 (08:13→17:03)
--- NOTE | 2020-09-15 09:43 | CASEMGMT ---
Social Work BIMS and PHQ-9 completed for MDS assessment. Daisy Peña, IT SENIOR SOFTWARE ENGINEER JAVA LIVESTOCK AUCTIONEER
[2020-09-15 11:35] LABS: Bacteria 0 SEEN /hpf (None Seen); Mucous, Urine 0 SEEN /hpf (<or=2+); Red Blood Cells-Urine 0 SEEN /hpf (0-5); Squamous Epithelial Cells - UA 0 SEEN /hpf (5-10)
[2020-09-15 14:00] LABS: Color, Urine Yellow (Yellow); Glucose, Dipstick Normal (Normal); Ketone-Dipstick Negative (Negative); Leukocyte Esterase-Dipstick 25 /ul (Negative); Nitrite-Dipstick Negative (Negative); Occult Blood-Urine Negative /ul (Negative); Protein-Dipstick Negative (Negative); Urine Bilirubin Dipstick Negative (Negative); Urine Clarity Sl. Cloudy (Clear); Urine Urobilinogen Normal (Normal)
[2020-09-15 14:09] LABS: White Blood Cells 0-5 SEEN /hpf (0-5)
[2020-09-15 16:00] VITALS: BP 129/78; PULSE 92; RESP 16; TEMP 36.4; O2SAT 93
--- NOTE | 2020-09-15 16:27 | NURSING ---
Pt returned from Dr. Yeboah appointment. Pt stated Dr. Yeboah wants to do surgery on her back and someone from his office should be calling next week to schedule surgery, pt came back with N.N.O
[2020-09-16 04:32] VITALS: BP 152/85; PULSE 80; RESP 16; TEMP 36.6; O2SAT 94
[2020-09-16] MEDS: Polyethylene Glycol 3350 17 GM PACKET PO (04:34)
[2020-09-16] MEDS: oxyCODONE 5 MG Tablet 10 MG PO ×3 (04:38→22:20)
[2020-09-16] MEDS: Senna/Docusate Sodium 1 Tablet 2 TABLET PO ×2 (04:41→16:46)
[2020-09-16] MEDS: Enoxaparin 40 MG/0.4 ML Syringe SC (04:41)
[2020-09-16] MEDS: DULoxetine Hcl 60 MG Capsule 120 MG PO (04:41)
[2020-09-16] MEDS: Pantoprazole Sodium 40 MG Tablet PO (04:42)
[2020-09-16] MEDS: predniSONE 20 MG Tablet PO (08:03)
[2020-09-16] MEDS: Gabapentin 400 MG Capsule PO ×3 (08:03→16:45)
[2020-09-16 15:36] VITALS: BP 128/76; PULSE 105; RESP 18; TEMP 35.9; O2SAT 94
[2020-09-17 05:00] VITALS: BP 133/83; PULSE 85; RESP 18; TEMP 36.7; O2SAT 96
[2020-09-17] MEDS: oxyCODONE 5 MG Tablet 10 MG PO ×3 (05:29→19:59)
[2020-09-17] MEDS: Enoxaparin 40 MG/0.4 ML Syringe SC (05:32)
[2020-09-17] MEDS: Polyethylene Glycol 3350 17 GM PACKET PO (05:33)
[2020-09-17] MEDS: DULoxetine Hcl 60 MG Capsule 120 MG PO (05:33)
[2020-09-17] MEDS: Pantoprazole Sodium 40 MG Tablet PO (05:33)
[2020-09-17] MEDS: Senna/Docusate Sodium 1 Tablet 2 TABLET PO ×2 (05:33→16:54)
[2020-09-17 06:16] LABS: Hematocrit 41.2 % (37-47); Hemoglobin 13.2 g/dL (12.0-15.0); Mean Corpuscular Hgb 33.7 pg (27.0-32.0); Mean Corpuscular Volume 105.1 fL (81-99); Mean Platelet Vol. 9.8 fl (6.2-12.0); POSITIVE COUNT YES; POSITIVE MORPHOLOGY YES; Platelet Count 326 K/mm3 (150-450); RBC Distribution Width SD 54.6 fl (35.1-43.9); Red Blood Count 3.92 M/mm3 (4.2-5.4); White Blood Count 10.2 K/mm3 (4.4-11.0)
[2020-09-17 06:21] LABS: Differential Indicated MANUAL DIFF
[2020-09-17 06:43] LABS: Anion Gap 5 (5-15); BUN 37 mg/dL (7-18); Calcium,Total 8.5 mg/dL (8.5-10.1); Chloride 103 mmol/L (98-107); Creatinine, Serum 1.12 mg/dL (0.55-1.02); EST Glomerular Filtration Rate 51 mL/min (>60); Est Glom Filt Rate - Afr Amer 62 mL/min (>60); Estimated Creatinine Clearance 43.75 ml/min; Glucose 79 mg/dL (74-106); Potassium 4.3 mmol/L (3.5-5.1); Sodium Level 138 mmol/L (136-145)
[2020-09-17 06:54] LABS: Total Cells Counted 100 (MANUAL DIFF)
[2020-09-17 06:59] LABS: Eosinophil 1 % (0-5); Lymphocyte 16 % (19-41); Metamyelocyte 1 % (0-1); Monocyte 14 % (0-10); Myelocyte 4 (0-0); Neutrophil-Band 2 % (0-5); Neutrophil-Segmented 62 % (47-70)
[2020-09-17 07:00] LABS: Absolute Lymphocyte Count 1.63 X10^3/uL (0.83-4.51); Absolute Neutrophil Count 6.5 X10^3/uL (2.0-7.7); Lymphocyte # 1.63 X10^3/ul (4.0); Neutrophil # 6.52 X10^3/uL (2.7-7.7); Platelet Estimate ADEQUATE (ADEQ)
[2020-09-17 07:01] LABS: Anisocytosis 1+; Macrocytosis 1+
[2020-09-17] MEDS: Gabapentin 400 MG Capsule PO ×3 (08:06→16:54)
[2020-09-17] MEDS: predniSONE 20 MG Tablet PO (08:06)
[2020-09-17 11:10] VITALS: PULSE 88; RESP 18; O2SAT 96
[2020-09-17] MEDS: Tuberculin,Purif.prot.deriv. 50 TU/ML Vial 5 ML ID (11:13)
[2020-09-17 14:39] VITALS: BP 126/83; PULSE 105; RESP 16; TEMP 36.8; O2SAT 93
[2020-09-17] MEDS: traMADol 50 MG Tablet PO (22:37)
[2020-09-18 05:00] VITALS: BP 150/84; PULSE 82; RESP 18; TEMP 36.6; O2SAT 92
[2020-09-18] MEDS: oxyCODONE 5 MG Tablet 10 MG PO ×3 (06:12→20:55)
[2020-09-18] MEDS: Enoxaparin 40 MG/0.4 ML Syringe SC (06:13)
[2020-09-18] MEDS: Senna/Docusate Sodium 1 Tablet 2 TABLET PO (06:13)
[2020-09-18] MEDS: Polyethylene Glycol 3350 17 GM PACKET PO (06:13)
[2020-09-18] MEDS: DULoxetine Hcl 60 MG Capsule 120 MG PO (06:13)
[2020-09-18] MEDS: Pantoprazole Sodium 40 MG Tablet PO (06:14)
[2020-09-18] MEDS: Gabapentin 400 MG Capsule PO ×3 (08:18→18:00)
[2020-09-18 13:30] LABS: Pathologist Review Reviewed
--- NOTE | 2020-09-18 13:55 | NURSING ---
Dr. Yeboah's office was called to clarify if pt is to receive surgery, Dr. Yeboah staff stated yes she is going to get a lateral laminectomy L3-4 on left side. Surgical scheduling will be in contact with TCU to schedule surgery and pt will need to have pre-op appointment scheduled one week prior to surgery, she also stated they will probably be looking at end of September into October for surgery.
[2020-09-18 13:59] VITALS: BP 130/73; PULSE 105; RESP 20; TEMP 36.6; O2SAT 95
--- NOTE | 2020-09-18 14:45 | CASEMGMT ---
Social Work Nursing informed SW that Dr. Yeboah looking to schedule surgery end of Sep, beginning of October. Spoke with pt that if surgery is unable to be scheduled shortly, IDT would set DC date. Pt expressed concerns about feeling uncomfortable discharging home and requested SNF placement. Provided list of SNFs that includes quality and resource data that is consistent with the pt's preferred geographic region, medical needs and insurance networks. Explained SNF would be private pay. Pt unsure if she could afford that. Briefly discussed Medicaid. Inquired about concerns with returning home. Pt stated she would go back to her old routine, be in pain, not eat well, not shower, not take her meds. Provided nonskilled HHC list and explained SW to order skilled HHC that could assist with shower once weekly, ensure eating and taking meds. Challenged pt will reframing mindset to hold herself accountable and maintain routine established in TCU. Pt agreed pain is controlled here, eating well and taking meds. Offered MOW resources - pt denied. Explained this worker wants to ensure her comfort at home, but if IDT feels she is capable, then it may be a matter of reframing perspective, embracing confidence, and self-discipline, especially if finances are a concern for a SNF. Pt expressed understanding. SW assured pt this worker will assist with either path. Pt to consider SNFs/pv HHC to beginning planning for alternative DC plan, but ideally, if pt could remain until surgery, that is pt's first choice. Pt expressed appreciation. SW to continue to follow. Daisy Peña, MAIL EXAMINER FURNACE OPERATOR AND TENDER
--- NOTE | 2020-09-18 16:13 | CHAPLAIN ---
Type of Pastoral Visit ___ Initial Visit _x__ Follow-up Visit ___ On-call Visit ___ General Patient Visit ___ Spiritual Assessment ___ Family Conference ___ Bereavement ___ Rapid Response ___ Code Blue ___ Other (describe below) Pastoral Care Referral From _x__ Patient ___ Family ___ Nurse ___ Physician ___ Spindle Setter ___ Bond Underwriter ___ Other (describe below) Sacrament/Intervention _x__ Active listening ___ Anointing ___ Worship ___ Bereavement ___ Communion ___ Carrie exploration ___ ___ Life review _x__ Prayer ___ Reconciliation ___ Sacrament of Sick _x__ Supportive presence ___ Wedding ___ Other (describe below) Pastoral Comments patient speaks of disappointment that her surgery will not happen soon and that she will have to have some decisions about care in between stay in TCU and her surgery; otherwise pt speaks of improvements, feeling better; her appearance and tone of voice would affirm this sense; offered ongoing support; prayer today focused on God's timing and working out the details for her care
[2020-09-18 21:07] VITALS: PULSE 90; RESP 16; O2SAT 95
[2020-09-19] MEDS: traMADol 50 MG Tablet PO ×2 (00:50→08:01)
[2020-09-19 05:00] VITALS: BP 123/75; PULSE 76; RESP 16; TEMP 36.6; O2SAT 95
[2020-09-19] MEDS: DULoxetine Hcl 60 MG Capsule 120 MG PO (06:31)
[2020-09-19] MEDS: Senna/Docusate Sodium 1 Tablet 2 TABLET PO (06:31)
[2020-09-19] MEDS: Pantoprazole Sodium 40 MG Tablet PO (06:31)
[2020-09-19] MEDS: Enoxaparin 40 MG/0.4 ML Syringe SC (06:31)
[2020-09-19] MEDS: Polyethylene Glycol 3350 17 GM PACKET PO (06:32)
[2020-09-19] MEDS: Gabapentin 400 MG Capsule PO ×3 (07:58→17:04)
[2020-09-19] MEDS: Acetaminophen 500 MG Tablet 1000 MG PO (08:01)
[2020-09-19 13:21] VITALS: BP 114/68; PULSE 93; RESP 16; TEMP 36.5; O2SAT 94
--- NOTE | 2020-09-19 14:11 | NURSING ---
Called Dr. Mills office to find out her surgery date. Talked to a Nurse and she said they are going to try and schedule her on October 12 2020.
[2020-09-19 14:15] VITALS: PULSE 95; RESP 18; O2SAT 98
[2020-09-19] MEDS: oxyCODONE 5 MG Tablet 10 MG PO (20:19)
[2020-09-20 02:28] VITALS: BP 100/60; PULSE 92; RESP 16; TEMP 36.4; O2SAT 97
[2020-09-20] MEDS: Polyethylene Glycol 3350 17 GM PACKET PO (05:07)
[2020-09-20] MEDS: Enoxaparin 40 MG/0.4 ML Syringe SC (05:08)
[2020-09-20] MEDS: Pantoprazole Sodium 40 MG Tablet PO (05:08)
[2020-09-20] MEDS: Senna/Docusate Sodium 1 Tablet 2 TABLET PO (05:08)
[2020-09-20] MEDS: DULoxetine Hcl 60 MG Capsule 120 MG PO (05:08)
[2020-09-20 05:11] VITALS: TEMP 36.7; O2SAT 96
[2020-09-20] MEDS: Gabapentin 400 MG Capsule PO ×3 (08:13→17:20)
[2020-09-20] MEDS: Mag Hydrox/Al Hydrox/Simeth 30 ML UDC PO (08:14)
[2020-09-20] MEDS: traMADol 50 MG Tablet PO (08:18)
[2020-09-20] MEDS: oxyCODONE 5 MG Tablet 10 MG PO ×2 (11:06→19:45)
[2020-09-20 14:23] VITALS: BP 116/65; PULSE 84; RESP 16; TEMP 36; O2SAT 94
[2020-09-20] MEDS: Acetaminophen 500 MG Tablet 1000 MG PO (19:44)
[2020-09-21] MEDS: traMADol 50 MG Tablet PO ×2 (03:51→15:15)
[2020-09-21] MEDS: Mag Hydrox/Al Hydrox/Simeth 30 ML UDC PO (03:52)
[2020-09-21 03:54] VITALS: BP 148/81; PULSE 75; RESP 16; TEMP 36.8; O2SAT 98
--- NOTE | 2020-09-21 03:55 | NURSING ---
c/o chest pain, points to epigastric area , states i think some of that white med that i took before will help because i think it is from something i ate, my leg hurts also so can i have an ultram/ med as requested, skin warm and dry, no reps distress, lungs clear,
[2020-09-21] MEDS: Senna/Docusate Sodium 1 Tablet 2 TABLET PO (05:32)
[2020-09-21] MEDS: Enoxaparin 40 MG/0.4 ML Syringe SC (05:32)
[2020-09-21] MEDS: Pantoprazole Sodium 40 MG Tablet PO (05:33)
[2020-09-21] MEDS: DULoxetine Hcl 60 MG Capsule 120 MG PO (05:33)
[2020-09-21] MEDS: Gabapentin 400 MG Capsule PO ×3 (07:54→17:31)
--- NOTE | 2020-09-21 08:12 | MDS.RN ---
Information for the mds was obtained from review of the clinical record, interview of resident, staff, and direct observation of resident's care.
[2020-09-21] MEDS: oxyCODONE 5 MG Tablet 10 MG PO ×2 (09:59→19:58)
[2020-09-21 12:51] VITALS: BP 185/98; PULSE 92; RESP 20; TEMP 36.2; O2SAT 95
--- NOTE | 2020-09-21 16:14 | CASEMGMT ---
Social Work Met with patient to discuss DC plans. Pt reports surgery is scheduled for 10/12. IDT has set DC date for 09/28. Pt agreeable just concerned about getting help with meds, pain, etc. Explained Palliative Medicine from SW conversation on acute. Pt agreeable as she reports Dr. Long is no longer managing her pain meds at [facility]. Explained skilled HHC - SW to make referral for PT/OT/SN/SW. Pt agreeable and likes having a nurse to assist with meds. SW offered CCN but unsure if she is eligible. Pt requesting [facility]. [place] [facility] states she will need [place] transport. Provided list of skilled HHC agencies with quality Medicare ratings in network with insurance and in geographical area. Pt prefers [facility]. Referral made. Referred to [facility] and CCN. Plan: DC home alone with [facility] PT/OT/SN/SW, Palliative, possibly CCN, FWW Daisy Peña, LAMINATOR DINING ROOM HELPER
--- NOTE | 2020-09-21 19:00 | PCM.DC ---
- Discharge Diagnoses Current Active Problems: Current Active and Chronic Problems (Last Reviewed 09/16/19 @ 13:13 by Noa Woods) Debility (Acute) Sciatica (Acute) Breast cancer (Chronic) Chronic kidney disease (Chronic) Depression (Chronic) Anxiety (Chronic) Dizziness (Chronic) Herpes simplex (Chronic) Iron deficiency anemia (Chronic) Neuropathic pain (Chronic) Muscle spasm (Chronic) Cough (Chronic) HTN (hypertension) (Chronic) Lumbar back pain with radiculopathy affecting right lower extremity (Acute) GERD (gastroesophageal reflux disease) (Chronic) You will use the following diet at home:: No restrictions, Regular Your food should be the consistency of: Regular Your liquids should be the consistency of: Regular/Thin Discharge Activity: Return to Normal Activity, May Shower, Use Walker Weight Bearing Status: Weight bearing as tolerated Call your doctor if you observe: Fever of 101 or Higher, Inability to urinate, Inability to have a bowel movement, Shortness of breath, Chest pain, Uncontrolled pain Allergies/Adverse Reactions: Allergies Penicillins [PCN] Allergy (Verified 09/07/20 11:16) Unknown amoxicillin trihydrate [From Amoxil] Adverse Reaction (Verified 09/07/20 11:16) Rash ciprofloxacin [From Cipro] Adverse Reaction (Verified 09/07/20 11:16) Nausea ciprofloxacin HCl [From Cipro] Adverse Reaction (Verified 09/07/20 11:16) Nausea actonel Adverse Reaction (Uncoded 09/07/20 11:16) Unknown norvasc Adverse Reaction (Uncoded 09/07/20 11:16) Unknown Medications to take at Discharge Calcium Carb/Vitamin D3/Vit K1 [Citracal-D3 500 mg Soft Chew] 400 units PO BID 09/05/15 Duloxetine Hcl [Cymbalta] 120 mg PO DAILY 09/09/20 Temazepam [Restoril] 15 mg PO QHS PRN PRN #7 cap 09/09/20 Acetaminophen [Tylenol] 1,000 mg PO Q6H PRN PRN tablet 09/21/20 Emollient Combination No.72 [Eucerin Intensive Repair] 1 applic TOPICAL BID@0600,2200 lotion 09/21/20 Gabapentin [Neurontin] 400 mg PO TIDCM #90 cap 09/21/20 Guaifenesin Dm [Robitussin Dm] 10 ml PO Q6H PRN PRN udc 09/21/20 Mag Hydrox/Al Hydrox/Simeth [Mylanta II] 30 ml PO Q6H PRN PRN udc 09/21/20 Methocarbamol 750 mg PO TID PRN PRN #90 tab 09/21/20 Oxycodone [Oxyir] 10 mg PO Q4H PRN PRN #84 tablet 09/21/20 Pantoprazole Sodium [Protonix] 40 mg PO DAILY #30 tab 09/21/20 Polyethylene Glycol 3350 [Miralax] 17 gm PO DAILY #30 packet 09/21/20 Senna/Docusate Sodium [Senokot-S] 2 tab PO BID PRN PRN #120 tab 09/21/20 traMADol [Ultram] 50 mg PO Q6H PRN PRN #28 tablet 09/21/20 The following prescriptions were given: Methocarbamol 750 mg PO TID PRN PRN #90 tab PRN Reason: Muscle Spasm Transmission Status: Pending to [address] Polyethylene Glycol 3350 [Miralax] 17 gm PO DAILY #30 packet Transmission Status: Pending to [address] Gabapentin [Neurontin] 400 mg PO TIDCM #90 cap Transmission Status: Pending to [address] Oxycodone [Oxyir] 10 mg PO Q4H PRN PRN #84 tablet PRN Reason: Pain Score 6-10 Transmission Status: Received by [address] Pantoprazole Sodium [Protonix] 40 mg PO DAILY #30 tab Transmission Status: Pending to [address] Senna/Docusate Sodium [Senokot-S] 2 tab PO BID PRN PRN #120 tab PRN Reason: Constipation Transmission Status: Pending to [address] traMADol [Ultram] 50 mg PO Q6H PRN PRN #28 tablet PRN Reason: Pain Score 4-5 Transmission Status: Received by [address] Primary Care Physician: Maurilio Castillo MD [Primary Care Provider] - Please follow up with your Primary Care Physician in: 1 week. Test Results: Test results from this visit will be discussed in further detail at your follow-up appointment, if applicable. Please Follow Up With: Hawk Yeboah, DO - Surgery. When: 10/12/2020. Please Follow Up With: Maurilio Castillo MD When: 1 week. Proposed Discharge Date: 09/28/20
--- NOTE | 2020-09-21 19:03 | DS.PCM_ITS ---
Discharge Date and Diagnosis - Problem List Patient Problems: Active and Suspected Problems (Last Reviewed 09/16/19 @ 13:13 by Noa Woods) Debility (Acute) Sciatica (Acute) Lumbar back pain with radiculopathy affecting right lower extremity (Acute) Date of Admission: 09/09/20 Date of Discharge: 09/28/20 - Primary Discharge Diagnosis Acute Problems: Active Problems (Last Reviewed 09/16/19 @ 13:13 by Noa Woods) Debility (Acute) Sciatica (Acute) Lumbar back pain with radiculopathy affecting right lower extremity (Acute) - Secondary Discharge Diagnosis Chronic Problems: Chronic Problems (Last Reviewed 09/16/19 @ 13:13 by Noa Woods) Breast cancer (Chronic) Chronic kidney disease (Chronic) Depression (Chronic) Anxiety (Chronic) Dizziness (Chronic) Herpes simplex (Chronic) Iron deficiency anemia (Chronic) Neuropathic pain (Chronic) Muscle spasm (Chronic) Cough (Chronic) HTN (hypertension) (Chronic) CKD (chronic kidney disease), stage III (Chronic) Anxiety and depression (Chronic) GERD (gastroesophageal reflux disease) (Chronic) Other specified disorders of bone density and structure, unspecified site (Chronic) Osteopenia (Chronic) History of right breast cancer (Chronic) Hospital Course and Treatment Imaging Results: 09/11/20 13:14 Diet: Regular - General Food consistency:: Regular Liquid Consistency:: Regular/Thin Is pt able to select menu?: Yes Clinical Impression(s) from Imaging Studies [facility] X-Ray 09/11/20 17:35 IMPRESSION: 1. Increased colonic feces suspicious for constipation. 2. Mildly dilated small bowel loops in the right midabdomen. Question ileus versus early or incomplete obstruction. Electronically Signed: Garrett Celaya DO at 18:01 EST Tel [phone], Service support , Operations: None Procedures: None Summary of Care Provided: The patient is a 70 year old Female with below past medical history hospitalized for intractable low back pain, underwent lumbar epidural steroid injection, admitted to TCU with debility, here for rehabilitation, strengthening, prior to discharge home alone. Dr. Yeboah planning lumbar back surgery 10/12/2020. Consider returning to TCU afterwards for rehabilitation prior to discharge home. Discharge home alone, [facility] PT/OT/SN/SW, Palliative, possibly [facility], Front Wheeled Walker. Patient Problems: Active and Suspected Problems (Last Reviewed 09/16/19 @ 13:13 by Noa Woods) Debility (Acute) Sciatica (Acute) Lumbar back pain with radiculopathy affecting right lower extremity (Acute) - Physical Exam Vitals/I&O's: Vital Signs Temp Pulse Resp BP Pulse Ox 97.2 F L 92 20 H 185/98 H 95 09/21/20 12:51 09/21/20 12:51 09/21/20 12:51 09/21/20 12:51 09/21/20 12:51 Oxygen Delivery Method Room Air Weight: 81.703 kg Body Mass Index (BMI) 27.8 Intake and Output for Last 24 Hours 09/19/20 09/20/20 09/21/20 23:59 23:59 23:59 Intake Total 480 / 480 360 / 360 600 / 600 Balance 480 / 480 360 / 360 600 / 600 Current Medications Acetaminophen (Acetaminophen 500 Mg Tablet) 1,000 mg PO Q6H PRN PRN PRN Reason: Pain Score 1-3 Last Admin: 09/20/20 19:44 Dose: 1,000 mg Documented by: Al Hydroxide/Mg Hydroxide (Mag Hydrox/Al Hydrox/Simeth 30 Ml Udc) 30 ml PO Q6H PRN PRN PRN Reason: INDIGESTION Last Admin: 09/21/20 03:52 Dose: 30 ml Documented by: Bisacodyl (Bisacodyl 10 Mg Suppository) 10 mg RECTAL DAILY PRN PRN Reason: Constipation Last Admin: 09/10/20 11:19 Dose: 10 mg Documented by: Duloxetine HCl (Duloxetine Hcl 60 Mg Capsule) 120 mg PO DAILY [facility] Last Admin: 09/21/20 05:33 Dose: 120 mg Documented by: Emollient Ointment (Emollient Combination No.72 500 Ml Lotion) 1 applic TOPICAL BID@0600,2200 [facility]; Protocol Last Admin: 09/21/20 05:33 Dose: 1 applicatio Documented by: Enoxaparin Sodium (Enoxaparin 40 Mg/0.4 Ml Syringe) 40 mg SC DAILY@0600 [facility] Last Admin: 09/21/20 05:32 Dose: 40 mg Documented by: Gabapentin (Gabapentin 400 Mg Capsule) 400 mg PO TIDCM [facility] Last Admin: 09/21/20 17:31 Dose: 400 mg Documented by: Guaifenesin (Guaifenesin Dm 10 Ml Udc) 10 ml PO Q6H PRN PRN PRN Reason: COUGH Magnesium Hydroxide (Magnesium Hydroxide 30 Ml Udc) 30 ml PO DAILY PRN PRN Reason: Constipation Last Admin: 09/11/20 13:09 Dose: 30 ml Documented by: Methocarbamol (Methocarbamol 750 Mg Tablet) 750 mg PO TID PRN PRN PRN Reason: MUSCLE SPASM Nutritional Formula (Lactose Free) (Ensure Enlive 120 Ml Liquid) 120 ml PO 4X/DAY [facility] Last Admin: 09/21/20 17:31 Dose: 120 ml Documented by: Oxycodone HCl (Oxycodone 5 Mg Tablet) 10 mg PO Q4H PRN PRN PRN Reason: Pain Score 6-10 Last Admin: 09/21/20 09:59 Dose: 10 mg Documented by: Pantoprazole Sodium (Pantoprazole Sodium 40 Mg Tablet) 40 mg PO DAILY [facility] Last Admin: 09/21/20 05:33 Dose: 40 mg Documented by: Polyethylene Glycol (Polyethylene Glycol 3350 17 Gm Packet) 17 gm PO DAILY [facility] Last Admin: 09/21/20 05:32 Dose: Not Given Documented by: Senna/Docusate Sodium (Senna/Docusate Sodium 1 Tablet) 2 tablet PO BID [facility] Last Admin: 09/21/20 17:32 Dose: Not Given Documented by: Temazepam (Temazepam 15 Mg Capsule) 15 mg PO QHS PRN PRN PRN Reason: INSOMNIA Tramadol HCl (Tramadol 50 Mg Tablet) 50 mg PO Q6H PRN PRN PRN Reason: Pain Score 4-5 Last Admin: 09/21/20 15:15 Dose: 50 mg Documented by: Discharge Diet: No Restrictions Discharge Activity: Return to Normal Activity, May Shower, Use Walker Weight Bearing Status: Weight bearing as tolerated Call your doctor if you observe: Fever of 101 or Higher, Inability to urinate, Inability to have a bowel movement, Shortness of breath, Chest pain, Uncontrolled pain Home Medications: Medications to take at Discharge Calcium Carb/Vitamin D3/Vit K1 [Citracal-D3 500 mg Soft Chew] 400 units PO BID 09/05/15 Duloxetine Hcl [Cymbalta] 120 mg PO DAILY 09/09/20 Temazepam [Restoril] 15 mg PO QHS PRN PRN #7 cap 09/09/20 Acetaminophen [Tylenol] 1,000 mg PO Q6H PRN PRN tablet 09/21/20 Emollient Combination No.72 [Eucerin Intensive Repair] 1 applic TOPICAL BID@0600,2200 lotion 09/21/20 Gabapentin [Neurontin] 400 mg PO TIDCM #90 cap 09/21/20 Guaifenesin Dm [Robitussin Dm] 10 ml PO Q6H PRN PRN udc 09/21/20 Mag Hydrox/Al Hydrox/Simeth [Mylanta II] 30 ml PO Q6H PRN PRN udc 09/21/20 Methocarbamol 750 mg PO TID PRN PRN #90 tab 09/21/20 Oxycodone [Oxyir] 10 mg PO Q4H PRN PRN #84 tablet 09/21/20 Pantoprazole Sodium [Protonix] 40 mg PO DAILY #30 tab 09/21/20 Polyethylene Glycol 3350 [Miralax] 17 gm PO DAILY #30 packet 09/21/20 Senna/Docusate Sodium [Senokot-S] 2 tab PO BID PRN PRN #120 tab 09/21/20 traMADol [Ultram] 50 mg PO Q6H PRN PRN #28 tablet 09/21/20 Following Prescriptions Were Given to Patient: Methocarbamol 750 mg PO TID PRN PRN #90 tab PRN Reason: Muscle Spasm [facility] Status[facility] Polyethylene Glycol 3350 [Miralax] 17 gm PO DAILY #30 packet Transmission Status: [facility] Gabapentin [Neurontin] 400 mg PO TIDCM #90 cap Transmission Status: P[facility] to [facility] Oxycodone [Oxyir] 10 mg PO Q4H PRN PRN #84 tablet PRN Reason: Pain Score 6-10 Transmission Status: Received by [facility] [address] Pantoprazole Sodium [Protonix] 40 mg PO DAILY #30 tab Transmission Status: Pending to [facility] Senna/Docusate Sodium [Senokot-S] 2 tab PO BID PRN PRN #120 tab PRN Reason: Constipation Transmission Status: Pending to [facility] traMADol [Ultram] 50 mg PO Q6H PRN PRN #28 tablet PRN Reason: Pain Score 4-5 Transmission Status: Received by [facility] Primary Care Physician: Maurilio Castillo MD [Primary Care Provider] - Please follow up with your Primary Care Physician in: 1 week. Please Follow Up With: Hawk Yeboah, - Surgery. When: 10/12/2020. Please Follow Up With: Maurilio Castillo MD When: 1 week. Disposition: Home with Home Health Minutes spent on discharge:: 35 Patient Condition:: Stable Medical Necessity - Tobacco Use Smoking Status: Never smoker Tobacco Use: Non-smoker Meaningful Use Info Meaningful Use Diagnoses (Choose all that apply): None applicable
--- NOTE | 2020-09-21 22:43 | PCA ---
Patient was recently upgraded to ADLIB in room, and voiced some concerns. CYANIDE POT TENDER reassured patient that they can always ask for help when needed, and that an aide and nurse would still be in to check on them. CYANIDE POT TENDER provided patient with clean gown and towels. The only assistance patient needed tonight was help putting on brief. Patient was able to change, wash up, and brush teeth without out supervision.
[2020-09-22 02:08] VITALS: BP 126/73; PULSE 82; RESP 16; TEMP 36.7; O2SAT 93
[2020-09-22] MEDS: oxyCODONE 5 MG Tablet 10 MG PO ×2 (02:10→20:20)
[2020-09-22] MEDS: Enoxaparin 40 MG/0.4 ML Syringe SC (05:21)
[2020-09-22] MEDS: Pantoprazole Sodium 40 MG Tablet PO (05:22)
[2020-09-22] MEDS: DULoxetine Hcl 60 MG Capsule 120 MG PO (05:22)
[2020-09-22] MEDS: Senna/Docusate Sodium 1 Tablet 2 TABLET PO (05:23)
[2020-09-22] MEDS: guaiFENesin Dm 10 ML UDC PO (05:29)
[2020-09-22] MEDS: Gabapentin 400 MG Capsule PO ×3 (07:51→17:14)
[2020-09-22] MEDS: traMADol 50 MG Tablet PO (07:51)
[2020-09-22 10:50] VITALS: PULSE 80; RESP 18; O2SAT 94
[2020-09-22 12:40] VITALS: BP 121/72; PULSE 80; RESP 20; TEMP 35.9; O2SAT 94
[2020-09-22] MEDS: Mag Hydrox/Al Hydrox/Simeth 30 ML UDC PO (23:18)
--- NOTE | 2020-09-23 00:29 | NURSING ---
c/o nausea, director of application development gave r' crackers and sprite. R' with little to no relief, this nurse in, r' asked for Imodium to try. R' resting well now.
--- NOTE | 2020-09-23 00:32 | NURSING ---
c/o nausea, face boss in to give crackers and sprite. Still no relief, pt asked to try Mylanta. pt resting now.
[2020-09-23 05:00] VITALS: BP 115/60; PULSE 69; RESP 18; TEMP 36.6; O2SAT 94
[2020-09-23] MEDS: Pantoprazole Sodium 40 MG Tablet PO (05:50)
[2020-09-23] MEDS: Enoxaparin 40 MG/0.4 ML Syringe SC (05:50)
[2020-09-23] MEDS: DULoxetine Hcl 60 MG Capsule 120 MG PO (05:50)
[2020-09-23] MEDS: Gabapentin 400 MG Capsule PO ×3 (08:20→16:50)
[2020-09-23 10:00] VITALS: PULSE 78; O2SAT 94
[2020-09-23] MEDS: Mag Hydrox/Al Hydrox/Simeth 30 ML UDC PO (10:35)
[2020-09-23] MEDS: traMADol 50 MG Tablet PO (13:30)
[2020-09-23 13:56] VITALS: BP 125/80; PULSE 78; RESP 18; TEMP 36.2; O2SAT 96
[2020-09-23] MEDS: oxyCODONE 5 MG Tablet 10 MG PO (21:33)
[2020-09-24 06:34] LABS: Absolute Neutrophil Count 3.1 X10^3/uL (2.0-7.7); Basophil# 0.02 X10^3/uL; Basophil% 0.4 % (0-1); Eosinophil# 0.18 X10^3/uL; Eosinophils% 3.3 % (0-5); Hemoglobin 12.3 g/dL (12.0-15.0); Lymphocyte % 25.7 % (19-41); Mean Corp Hgb Conc 31.5 g/dL (32-36); Mean Corpuscular Hgb 33.6 pg (27.0-32.0); Mean Corpuscular Volume 106.6 fL (81-99); Mean Platelet Vol. 9.5 fl (6.2-12.0); Monocyte# 0.66 X10^3/uL; Monocyte% 12.1 % (0-10); NRBC Flagged by Analyzer 0 % (0-5); Neutrophil # 3.09 X10^3/uL (2.7-7.7); Neutrophil % 56.7 % (47-70); Platelet Count 234 K/mm3 (150-450); RBC Distribution Width CV 13.4 % (11.6-14.6); RBC Distribution Width SD 52.8 fl (35.1-43.9); Red Blood Count 3.66 M/mm3 (4.2-5.4); White Blood Count 5.5 K/mm3 (4.4-11.0)
[2020-09-24] MEDS: DULoxetine Hcl 60 MG Capsule 120 MG PO (06:46)
[2020-09-24] MEDS: Enoxaparin 40 MG/0.4 ML Syringe SC (06:47)
[2020-09-24] MEDS: Pantoprazole Sodium 40 MG Tablet PO (06:48)
[2020-09-24 06:50] VITALS: BP 130/84; PULSE 65; RESP 18; TEMP 36.7; O2SAT 92
[2020-09-24] MEDS: oxyCODONE 5 MG Tablet 10 MG PO ×2 (06:54→21:40)
[2020-09-24 06:56] LABS: BUN 23 mg/dL (7-18); Glucose 80 mg/dL (74-106)
[2020-09-24 06:57] LABS: Anion Gap 5 (5-15); Calcium,Total 8.6 mg/dL (8.5-10.1); Chloride 108 mmol/L (98-107); EST Glomerular Filtration Rate 58 mL/min (>60); Est Glom Filt Rate - Afr Amer 70 mL/min (>60); Sodium Level 142 mmol/L (136-145)
[2020-09-24] MEDS: Gabapentin 400 MG Capsule PO ×3 (08:04→16:50)
[2020-09-24 08:25] VITALS: PULSE 78; O2SAT 96
[2020-09-24 14:25] VITALS: BP 111/67; PULSE 82; RESP 14; TEMP 36.1; O2SAT 95
[2020-09-25 01:28] VITALS: BP 115/62; PULSE 79; RESP 16; TEMP 36.3; O2SAT 94
[2020-09-25] MEDS: oxyCODONE 5 MG Tablet 10 MG PO ×3 (04:20→23:21)
[2020-09-25] MEDS: Enoxaparin 40 MG/0.4 ML Syringe SC (04:21)
[2020-09-25] MEDS: DULoxetine Hcl 60 MG Capsule 120 MG PO (04:21)
[2020-09-25] MEDS: Senna/Docusate Sodium 1 Tablet 2 TABLET PO (04:22)
[2020-09-25] MEDS: Pantoprazole Sodium 40 MG Tablet PO (04:22)
[2020-09-25] MEDS: Gabapentin 400 MG Capsule PO ×3 (07:57→17:14)
[2020-09-25] MEDS: traMADol 50 MG Tablet PO ×2 (10:28→20:50)
[2020-09-25 14:51] VITALS: BP 142/100; PULSE 103; RESP 22; TEMP 36.2; O2SAT 94
[2020-09-25 20:50] VITALS: PULSE 82; RESP 16; O2SAT 93
--- NOTE | 2020-09-26 00:59 | NURSING ---
Patient c/o having sharp shooting pain from right knee, groin, and right hip area. Patient was given prn oxyir per request at 23:21 rates pain 10 out of 10 had tears running down her face. Patient states, I woke up being in this much pain. This nurse went back in to reassess patient pain after midnight and states 10 out of 10. They are planning on send me home like this how am I suppose to do this being in this much pain till I can have surgery. I didn't want to get up and feed myself, take medication or dressing myself because I was in so much pain. Patient has polar care on right side this nurse asked patient what helps her when she in this much pain she states nothing. This nurse offered prn methocarbamol to help with the spasms pt refused during this time. Will leave voicemail for pediatric social worker to speak with patient. Rn made aware
[2020-09-26 05:00] VITALS: BP 136/78; PULSE 72; RESP 16; TEMP 36.8; O2SAT 94
[2020-09-26] MEDS: DULoxetine Hcl 60 MG Capsule 120 MG PO (05:36)
[2020-09-26] MEDS: Senna/Docusate Sodium 1 Tablet 2 TABLET PO ×2 (05:36→17:00)
[2020-09-26] MEDS: Enoxaparin 40 MG/0.4 ML Syringe SC (05:36)
[2020-09-26] MEDS: traMADol 50 MG Tablet PO ×2 (05:37→14:58)
[2020-09-26] MEDS: Pantoprazole Sodium 40 MG Tablet PO (05:37)
[2020-09-26] MEDS: Gabapentin 400 MG Capsule PO ×3 (08:14→17:00)
[2020-09-26] MEDS: Acetaminophen 500 MG Tablet 1000 MG PO (08:19)
[2020-09-26 11:15] VITALS: PULSE 47; RESP 18; O2SAT 94
[2020-09-26 12:55] VITALS: BP 117/68; PULSE 81; RESP 20; TEMP 36.1; O2SAT 94
--- NOTE | 2020-09-26 13:14 | CASEMGMT ---
Social Work Followed up with pt about anxiety to DC home. Spoke with pt at length - provided ongoing emotional support and supportive listening. Pt expressed her same concerns about being home and it not being any different than before she admitted to the hospital. She is having a lot of anxiety centered around her pain. Validated pt's feelings. Explained to pt, SW has referred to multiple resources to assist her at home. Palliative to address pain, symptoms, meds. HHC to assist with meds, pain and therapy. CCN to assist with meds and education. Those staff members will continue with the orders and routine TCU has established and will adjust her treatment plan accordingly. Reminded pt this is temporary. She will be home for about two weeks prior to returning for surgery. The surgery will hopefully decrease the pain, then she will get more therapy and med management prior to successfully returning home, is the goal. Pt appreciated that point of view and agreed. Inquired what coping skills pt uses when she gets too overwhelmed. Pt stated she reads or turns on HGTV, but sometimes if she is too anxious, she has difficulty concentrating. Offered a grounding technique of the five senses and explained the exercise. Pt practiced exercise. Pt immediately felt relief - stating this is simple yet effective. Pt appreciative of SW. Pt calm at end of conversation. Daisy Peña, [employer] DIRECTOR OF CATH LAB
[2020-09-26] MEDS: oxyCODONE 5 MG Tablet 10 MG PO (20:36)
[2020-09-27 05:00] VITALS: BP 140/76; PULSE 72; RESP 16; TEMP 36.7; O2SAT 93
[2020-09-27] MEDS: Enoxaparin 40 MG/0.4 ML Syringe SC (05:33)
[2020-09-27] MEDS: traMADol 50 MG Tablet PO ×2 (05:33→14:30)
[2020-09-27] MEDS: DULoxetine Hcl 60 MG Capsule 120 MG PO (05:34)
[2020-09-27] MEDS: Pantoprazole Sodium 40 MG Tablet PO (05:35)
[2020-09-27] MEDS: Senna/Docusate Sodium 1 Tablet 2 TABLET PO (05:35)
[2020-09-27] MEDS: Gabapentin 400 MG Capsule PO ×3 (08:12→17:08)
[2020-09-27] MEDS: oxyCODONE 5 MG Tablet 10 MG PO ×2 (08:14→21:17)
[2020-09-27 13:57] VITALS: BP 126/74; PULSE 78; RESP 16; TEMP 36.3; O2SAT 95
[2020-09-27] MEDS: Acetaminophen 500 MG Tablet 1000 MG PO (19:31)
[2020-09-28] MEDS: traMADol 50 MG Tablet PO ×2 (01:39→07:56)
[2020-09-28 05:00] VITALS: BP 120/64; PULSE 79; RESP 18; TEMP 36.8; O2SAT 91
[2020-09-28] MEDS: Pantoprazole Sodium 40 MG Tablet PO (05:07)
[2020-09-28] MEDS: Enoxaparin 40 MG/0.4 ML Syringe SC (05:07)
[2020-09-28] MEDS: DULoxetine Hcl 60 MG Capsule 120 MG PO (05:08)
[2020-09-28] MEDS: Gabapentin 400 MG Capsule PO ×2 (07:54→11:45)
[2020-09-28 10:00] VITALS: PULSE 91; RESP 18; O2SAT 92
[2020-09-28 10:27] VITALS: BP 125/83; PULSE 91; RESP 18; TEMP 36.8; O2SAT 92
== END 2020-09-28 11:45 | disposition home health service (06) | DRG 552 ==
PROVIDERS: Admitting Provider Family Medicine Geriatric Medicine; PCP Family Medicine; Visit Provider Family Medicine Geriatric Medicine
DX: M51.16 Intervertebral disc disorders with radiculopathy, lumbar region (principal); K21.9 Gastro-esophageal reflux disease without esophagitis; F41.9 Anxiety disorder, unspecified; F32.9 Major depressive disorder, single episode, unspecified; N18.30 Chronic kidney disease, stage 3 unspecified; I12.9 Hypertensive chronic kidney disease with stage 1 through stage 4 chronic kidney disease, or unspecified chronic kidney disease; M19.90 Unspecified osteoarthritis, unspecified site; E55.9 Vitamin D deficiency, unspecified
CPT/HCPCS: 36415; 74018; 80048; 81001; 82962; 85025; 87086; 87426; 93005; 97032; 97110; 97116; 97162; 97166; 97530; 97535; 97802

== ENCOUNTER → 2020-10-03 16:41 | Outpatient (CLI) | payer MEDICARE, OTHER, SELFPAY ==
[2020-10-03 18:11] LABS: Absolute Lymphocyte Count 1.95 X10^3/uL (0.83-4.51); Absolute Neutrophil Count 3.7 X10^3/uL (2.0-7.7); Basophil# 0.05 X10^3/uL; Basophil% 0.7 % (0-1); Eosinophil# 0.11 X10^3/uL; Eosinophils% 1.6 % (0-5); Hematocrit 39.7 % (37-47); Hemoglobin 13.1 g/dL (12.0-15.0); Lymphocyte # 1.95 X10^3/ul (4.0); Lymphocyte % 29.2 % (19-41); Mean Corpuscular Hgb 28.7 pg (27.0-32.0); Mean Corpuscular Volume 86.9 fL (81-99); Mean Platelet Vol. 9.8 fl (6.2-12.0); Monocyte# 0.82 X10^3/uL; Monocyte% 12.3 % (0-10); NRBC Flagged by Analyzer 0 % (0-5); Neutrophil # 3.68 X10^3/uL (2.7-7.7); Neutrophil % 55.2 % (47-70); Platelet Count 174 K/mm3 (150-450); RBC Distribution Width CV 12.9 % (11.6-14.6); RBC Distribution Width SD 40.6 fl (35.1-43.9); Red Blood Count 4.57 M/mm3 (4.2-5.4); White Blood Count 6.7 K/mm3 (4.4-11.0)
[2020-10-03 18:37] LABS: ALB/GLOB Ratio 0.9 RATIO (0.9-2.4); AST(SGOT) 38 U/L (15-37); Alanine Aminotransfer ALT/SGPT 97 U/L (13-56); Albumin, Serum 3.7 g/dL (3.2-5.0); Alkaline Phosphatase 48 U/L (45-117); Anion Gap 5 (5-15); BUN 9 mg/dL (7-18); BUN/Creat Ratio 8.3 RATIO (10-20); Calcium,Total 8.8 mg/dL (8.5-10.1); Chloride 103 mmol/L (98-107); Creatinine, Serum 1.08 mg/dL (0.55-1.02); EST Glomerular Filtration Rate 53 mL/min (>60); Est Glom Filt Rate - Afr Amer 64 mL/min (>60); Glucose 119 mg/dL (74-106); Magnesium 2.2 mg/dL (1.6-2.6); Potassium 3.8 mmol/L (3.5-5.1); Protein, Total 7.7 g/dL (6.4-8.2); Sodium Level 137 mmol/L (136-145)
== END ==
PROVIDERS: PCP Family Medicine; Referring Provider Family Medicine; Visit Provider Family Medicine
DX: I49.3 Ventricular premature depolarization (principal)
CPT/HCPCS: 36415; 80053; 83735; 85025

== ENCOUNTER → 2020-10-04 09:38 | Outpatient (CLI) | payer MEDICARE, OTHER, SELFPAY ==
[2020-10-04 12:38] LABS: Hematocrit 42.8 % (37-47); Hemoglobin 13.7 g/dL (12.0-15.0); Mean Corpuscular Hgb 33.3 pg (27.0-32.0); Mean Corpuscular Volume 103.9 fL (81-99); Mean Platelet Vol. 10.3 fl (6.2-12.0); Platelet Count 280 K/mm3 (150-450); RBC Distribution Width CV 12.9 % (11.6-14.6); RBC Distribution Width SD 49.6 fl (35.1-43.9); Red Blood Count 4.12 M/mm3 (4.2-5.4); White Blood Count 3.6 K/mm3 (4.4-11.0)
[2020-10-04 12:39] LABS: Magnesium 1.9 mg/dL (1.6-2.6)
[2020-10-04 12:47] LABS: Prothrombin Time (Protime)PT. 12.4 SECONDS (11.7-14.9)
[2020-10-04 12:48] LABS: AST(SGOT) 15 U/L (15-37); Alanine Aminotransfer ALT/SGPT 30 U/L (13-56); Albumin, Serum 3.4 g/dL (3.2-5.0); Alkaline Phosphatase 85 U/L (45-117); Anion Gap 5 (5-15); BUN 19 mg/dL (7-18); BUN/Creat Ratio 19.1 RATIO (10-20); Bilirubin, Direct 0.11 mg/dL (0.00-0.30); Calcium,Total 9.3 mg/dL (8.5-10.1); Chloride 105 mmol/L (98-107); Creatinine, Serum 0.99 mg/dL (0.55-1.02); EST Glomerular Filtration Rate 59 mL/min (>60); Est Glom Filt Rate - Afr Amer 71 mL/min (>60); Globulin 3.5 g/dL (2.2-4.2); Glucose 85 mg/dL (74-106); Potassium 4.2 mmol/L (3.5-5.1); Protein, Total 6.9 g/dL (6.4-8.2); Sodium Level 138 mmol/L (136-145)
[2020-10-04 12:59] LABS: Partial Thromboplast Time 29.2 Seconds (24.1-36.2)
[2020-10-06 09:35] LABS: Absolute Neutrophil Count 1.9 X10^3/uL (2.0-7.7); Basophil# 0.04 X10^3/uL; Basophil% 1.2 % (0-1); Eosinophil# 0.18 X10^3/uL; Eosinophils% 5.3 % (0-5); Lymphocyte % 23.5 % (19-41); Monocyte# 0.49 X10^3/uL; Monocyte% 14.4 % (0-10); NRBC Flagged by Analyzer 0 % (0-5); Neutrophil # 1.87 X10^3/uL (2.7-7.7); Neutrophil % 54.7 % (47-70)
== END ==
PROVIDERS: Anesthesiology; Orthopaedic Surgery; PCP Family Medicine; Referring Provider Internal Medicine Cardiovascular Disease; Visit Provider Internal Medicine Cardiovascular Disease
DX: I49.3 Ventricular premature depolarization (principal); Z01.812 Encounter for preprocedural laboratory examination
CPT/HCPCS: 36415; 80048; 80076; 83735; 85025; 85027; 85610; 85730; 87081

== ENCOUNTER → 2020-10-10 05:36 | Outpatient (CLI) | payer MEDICARE, OTHER, SELFPAY ==
--- NOTE | 2020-10-10 12:32 | STRESSREP_ITS ---
Stress Test Report Date: 10-10-2020 Procedure: Pharmacologic stress nuclear imaging study Indications: Abnormal ECG Consent: Per the patient Procedure: The patient underwent pharmacologic (Regadenoson 0.4mg ) evaluation with a peak heart rate of 100 beats per minute (67% predicted maximal heart rate) and a peak blood pressure of 108/70 mmHg. The baseline ECG demonstrated normal sinus rhythm. The peak pharmacologic ECG demonstrated no obvious ECG changes. There was a rare PVC during recovery. There was no complaint of chest discomfort during pharmacologic infusion or recovery. The examination was discontinued secondary to completion of protocol. Impression: 1. Pharmacologic (Regadenoson) evaluation 2. Peak pharmacologic ECG with no obvious ECG changes. 3. There was a rare PVC during recovery. 4. Nuclear images pending Myocardial perfusion imaging study: Technique: The patient was injected with 11.6 millicuries of technetium 99m Cardiolite and subsequently rest SPECT Cardiolite nuclear imaging was obtained in the horizontal long, vertical long, and short axis views. The patient underwent pharmacologic (Regadenoson) evaluation with a peak heart rate of 100 beats per minute (67% percent predicted maximal heart rate) and a peak blood pressure of 108/70 mmHg. The patient was injected with 34.1 millicuries of technetium 99m C ardiolite and subsequently stress SPECT Cardiolite nuclear imaging was obtained in the horizontal long, vertical long, and short axis views. A gated Cardiolite study at peak stress was obtained. Interpretation: Rest and stress SPECT Cardiolite nuclear imaging status post realignment, normalization, and attenuation correction demonstrate relative uniform tracer uptake and myocardial perfusion appearing within normal limits. There is end systolic thickening and brightening. The gated Cardiolite study demonstrates myocardial thickening and inward wall motion. The reported LVEF is 80%. Impression: 1. Rest and stress SPECT Cardiolite nuclear imaging demonstrate relative uniform tracer uptake and myocardial perfusion appearing within normal limits. 2. The gated Cardiolite study reports an LVEF of 80%. This note was generated with [employer] software. It may contain incorrect words, spelling, and punctuation that were not noted in checking the note before signing.
== END ==
PROVIDERS: PCP Family Medicine; Referring Provider Family Medicine; Visit Provider Family Medicine
DX: R94.31 Abnormal electrocardiogram [ECG] [EKG] (principal)
CPT/HCPCS: 78452; 93017; A9500; A4216; J2785

== ENCOUNTER 2020-10-12 10:57 | Observation (INO) | payer MEDICARE, OTHER, SELFPAY ==
[2020-09-09 16:00] VITALS: BMI 27.8
--- NOTE | 2020-10-04 09:06 | EKG12_ITS ---
Test Reason : PRE SURGERY Blood Pressure : / mmHG Vent. Rate : 083 BPM Atrial Rate : 083 BPM P-R Int : 140 ms QRS Dur : 068 ms QT Int : 376 ms P-R-T Axes : 038 066 053 degrees QTc Int : 441 ms Sinus rhythm with Premature atrial complexes Otherwise normal ECG Confirmed by DANNY ROCHA, ISAIAS ([id number]), magazine editor ОЛЕГ REYEZ ([id number]) on 10/05/2020 9:21:48 AM Referred By: Hawk Yeboah Confirmed By:ISAIAS DELGADO MD
[2020-10-06 11:29] LABS: HIV - WCH Non-Reactive (Nonreactive)
[2020-10-07 11:09] LABS: HEPATITIS B SURFACE AG Negative (Negative); Hepatitis A AB, Total Negative (Negative); Hepatitis A IgM Antibody Negative (Negative); Hepatitis B Core AB IgM Negative (Negative); Hepatitis B Core Ab Total Negative (Negative); Hepatitis C Ab <0.1 s/co ratio (0.0-0.9)
[2020-10-07 11:50] LABS: Hep B Surface Antibodies Non Reactive (.)
[2020-10-12] VITALS (12 sets, daily range): BP systolic 109–143; BP diastolic 67–92; PULSE 64–99; RESP 16–18; TEMP 35.8–36.9; O2SAT 93–100; BMI 27.8
[2020-10-12] MEDS: Lactated Ringers 1,000 ML 100 ML IV ×4 (05:55→20:01)
--- NOTE | 2020-10-12 06:06 | HP_ITS ---
Intake Intake Visit Reasons: lumbar spine Chief Complaint: intractable back pain Accompanied by: Self Is patient in pain?: Yes Allergies Penicillins [PCN] Allergy (Verified 10/04/20 10:26) Unknown amoxicillin trihydrate [From Amoxil] Adverse Reaction (Verified 10/04/20 10:26) Rash ciprofloxacin [From Cipro] Adverse Reaction (Verified 10/04/20 10:26) Nausea ciprofloxacin HCl [From Cipro] Adverse Reaction (Verified 10/04/20 10:26) Nausea actonel Adverse Reaction (Uncoded 10/04/20 10:26) Unknown norvasc Adverse Reaction (Uncoded 10/04/20 10:26) Unknown Medications Duloxetine Hcl [Cymbalta] 90 mg PO DAILY 09/09/20 [History Confirmed 10/04/20] Gabapentin [Neurontin] 400 mg PO TIDCM #90 cap 09/21/20 [Rx Confirmed 10/04/20] Methocarbamol 750 mg PO TID PRN PRN #90 tab 09/21/20 [Rx Confirmed 10/04/20] Oxycodone [Oxyir] 10 mg PO Q4H PRN PRN #84 tab 09/21/20 [Rx Confirmed 10/04/20] Senna/Docusate Sodium [Senokot-S] 2 tab PO BID PRN PRN #120 tab 09/21/20 [Rx Confirmed 10/04/20] traMADol [Ultram] 50 mg PO Q6H PRN PRN #28 tab 09/21/20 [Rx Confirmed 10/04/20] omeprazole 40 mg-sodium bicarbonate 1.1 gram capsule cap PO 10/04/20 [History Confirmed 10/04/20] [facility] Medical History (Updated 09/11/20 @ 08:[address] Igor Sanford MD) Anxiety (Acute) Arthritis (Acute) Breast cancer (Acute) GERD (gastroesophageal reflux disease) (Acute) Hay fever (Acute) Heart disease (Acute) Herniation of lumbar intervertebral disc (Acute) Kidney disease (Acute) Nephrolithiasis (Acute) Osteopenia (Acute) Hypertension (Chronic) Surgical History History of appendectomy (Acute) History of dilation and curettage (Acute) History of hysterectomy (Acute) History of lithotripsy (Acute) History of lumpectomy of right breast (Acute) History of tonsillectomy (Acute) Family History Mother Multiple myeloma Thyroid disorder Hypertension Hyperlipidemia Heart disease Diabetes Father Diabetes Social History (Updated 10/04/20 @ 11:[address] Hawk Yeboah DO) Smoking Status: Never smoker HPI lumbar spine: Surgical H&P: Yes Details: Parts of this documentation were recorded by a scribe, this documentation accurately reflects the service provided and the decisions made by me, Dr. Hawk Yeobah DO 10/04/20 1018. MAYA CURRY is a 70 year old F here today for her pre-op appt. Patient needs to sign consent, DOS: 10/12/2020. Patient states she had her blood work and EKG done this morning. Updated patient's medication list. Mrs. Curry is here for her preop prior to her surgery that is scheduled 8 days from now. She is scheduled for a lumbar laminectomy of the far lateral variety on the right side at L3-4. She has classic L3 symptoms because of the far lateral nature of this herniation into the foramen. I answered all her questions. She states that she has been in severe pain and cannot wait to have it relieved. Discussed the surgery at length how it would be done what to expect. In addition she will probably need to go to the transitional care unit for a few days since she lives alone. I will see her again at surgery. Assessment & Plan Problems 1. HNP (herniated nucleus pulposus), lumbar M51.26 Coding Level of Care Code Off vis,est,level 2 Diagnoses HNP (herniated nucleus pulposus), lumbar M51.26 Time Spent (min) 20
[2020-10-12] MEDS: Acetaminophen 500 MG Tablet 1000 MG PO (06:17)
--- NOTE | 2020-10-12 07:30 | RAD_ITS ---
STUDY: X-RAY - LUMBAR SPINE REASON FOR EXAM: Female, 70 years old. FAR LATERAL L3-4 LAMINECTOMY IN O.R. TECHNIQUE: 1 view(s) of the lumbar spine were obtained. COMPARISON: None FINDINGS: Single intraoperative view was obtained. The localization instrument is seen posterior to the L2-L3 disc space level. _ RAD/Spine 1 View Any Level IMPRESSION: The localization instrument is seen posterior to the L2-L3 disc space level. Electronically Signed: Miguel Barrios MD at 13:07 EST , Service support ,
--- NOTE | 2020-10-12 07:30 | DISC_PTH ---
PATIENT: MAYA LÓPEZ LOC: MS3 U#:[id number] AGE/SX: 70/F ROOM: [facility] [place] RE10/12/[address]: Dr. Hawk Yeboah DO : 1950 BED: 1 DIS: 10/13/2020 SPEC #: [id number] RECD: 10/12/20 11:34 STATUS: MISSY REAbimael #: [id number] ANASTASIA: 10/12/20 07:[address]: Hawk Yeboah DEPT: SURGICAL PATHOLOGY RECD BY: Philomena Edwards ENTERED: 10/12/20 12:43 SP TYPE: DISC OTHR DR: DO Dr. Maurilio Dudley MD Tissues: Intervertebral disc, NOS Procedures: Surgery Specimen Level III HEADER OPERATION: ERAS, Lateral L3-4 laminectomy PRE-OP DIAGNOSIS: Herniated nucleus pulposus L3-4 TISSUE SUBMITTED: Herniated disc L3-4 MICROSCOPIC DIAGNOSIS Herniated disc L3-4, laminectomy: Fragments of fibrocartilaginous tissue with reactive and degenerative changes. VERA:jono 10/13/2020 MICROSCOPIC DESCRIPTION Slides are reviewed. GROSS DESCRIPTION Received in fixative is one container labeled with the patient's name and designated herniated disc L34. The specimen consists of multiple irregular fragments of booker, indurated tissue that in aggregate measure 2 x 1 x 0.3 cm. The specimen is totally submitted in one cassette. / VERA:jono 10/12/20 TC:5 CPT: 19376
[2020-10-12 07:41] LABS: Bedside Glucose 106 mg/dL (70-110)
[2020-10-12] MEDS: THROMBIN (RECOMBINANT) 20,000 UNIT VIAL 20000 UNIT TOPICAL (09:17)
--- NOTE | 2020-10-12 10:16 | PCM.OPRPT ---
Report of Operation Date of Procedure: 10/12/20 Description of Surgical Findings:: Preoperative diagnosis: Lateral herniation L3-4 on the right severe right L3 radiculopathy Postoperative diagnoses: The same Procedure: Right lateral laminotomy L3 with discectomy Surgeon: Dr. Yeboah retail loan originator assistant:Alvarez FAIRBANKS Anesthesia: General endotracheal anesthesia administered by [facility] Estimated blood loss: 20cc Drains: None Complications: None Procedure: Patient was taken to the OR where she was placed under general endotracheal anesthesia, a Schmitz catheter was inserted. Neuro monitoring motorcycle technician then placed all his leads on the patient's body. Then moved here and onto the prone position on the Markel frame. Care was taken to protect her bony prominences her breasts her brachial plexus bilaterally her ulnar nerves of both elbows and her cervical spine and facial features. The back was then prepped and draped in standard fashion. I then made a longitudinal incision centered over the area that we thought would be L3 4 subcutaneous tissues were incised length of the skin incision. Open the lumbar fascia to the right of the spinous processes elevated the pupil muscles off of the bone. Intraoperative marker was then put in place and an x-ray was taken that demonstrated that we were aimed at L2-3 thus we simply moved down 1 level. Finished elevating the paravertebral muscles off the lamina of L3 on the right side. I then exposed the lumbar interarticularis also. The entire L3 lamina was exposed on the right side. Alar retractor was then put in place. Bleeders were controlled with cautery. I then began bilateral laminotomy starting on the lateral side of the lamina using 45 degree Kerrison rongeurs the laminotomy was carried out. I then identified the ligamentum flavum. It was removed starting lateralward and very carefully removed with 45 degree Kerrison rongeurs. Expose the nerve root on its lateral side the herniated disc was exposed in the axilla of the L3 nerve. Note that the disc herniated in many many pieces. More sucked out was with suction but most of them were picked out with small pituitary rongeurs. I also released some of them with a Stonewall 4. Once all the disc was removed we thoroughly irrigated with copious amounts of sterile saline. That we had excellent hemostasis we did pack it with thrombin-soaked Gelfoam enough to get a very very dry field of the tenotomy. In this I placed the amniotic membrane directly over the nerve root to prevent any adhesions to the nerve L foam was placed over the top of that a closure was begun. Was lumbar fascia using [id number] suture with #1 Vicryl. This was followed by closure of the subcutaneous tissues with 2-0 Vicryl in interrupted fashion and skin skin was approximated using skin clips sterile dressings were then applied. Recovered in the OR she was moved to her hospital bed and taken to recovery in satisfactory condition. This is the end of operative summary on Devorah Curry.
--- NOTE | 2020-10-12 11:08 | CASEMGMT ---
Addendum entered by Esthela Witt 10/12/20 13:35: SW in to speak with pt to confirm discharge plans. SW introduced self and role at [facility]. Pt is alert and orientated, appears sleepy. Patient was provided a list of IRF providers including quality and resource use data and consistent with the patient?s preferred geographic region, medical needs, and insurance network. The patient?s preferred provider is [facility]. SW informed pt that plan is for pt to admit to RU tomorrow. Pt states understanding. Plan: RU tomorrow Original Note: Social Work Note SW received update from Sade with [facility] that pt has already been in contact with her requesting RU at discharge. MALIKA spoke with physician, plan is for pt to discharge tomorrow. MALIKA updated Sade with RU. Esthela Witt CARDIOLOGY TECHNOLOGIST, CUSTOMER RELATIONSHIP SPECIALIST
[2020-10-12] MEDS: Morphine 2 MG/ML Syringe IV (13:29)
--- NOTE | 2020-10-12 16:12 | PCM.PN.HOSP ---
Subjective: 70-year-old female presents for an elective right lateral laminectomy L3 with discectomy. She had a fall in July and since then has been having right-sided back pain and leg pain. Since that time she is also had been moving with a walker. Aside from her back pain which she takes gabapentin, methocarbamol, oxycodone, and tramadol, she has a history of anxiety and depression which she takes Cymbalta for. She states that her medical history has been fairly stable and that prior to this fall she has not taken many medications. Vitals/I&O's: Vital Signs Temp Pulse Resp BP Pulse Ox 97.4 F L 90 16 109/76 94 10/12/20 15:20 10/12/20 15:20 10/12/20 15:20 10/12/20 15:20 10/12/20 15:20 Oxygen Flow Rate (L/min) 2 Oxygen Delivery Method Nasal Cannula Weight: 177 lb 11.081 oz Body Mass Index (BMI) 27.8 Intake and Output for Last 24 Hours 10/10/20 10/11/20 10/12/20 23:59 23:59 23:59 Intake Total 2755.33 / 2755.33 Output Total 125 / 125 Balance 2630.33 / 2630.33 General: Alert, Oriented x3, Cooperative, No apparent distress HEENT: Atraumatic, PERRLA, EOMI, Normocephalic Oral: Moist Mucosa Neck: Supple, No JVD Lungs: Clear to auscultation, Normal air movement, No rhonchi, No wheeze, No rales Cardiovascular: Regular rate, Regular Rhythm, Normal S1, Normal S2, No murmurs Abdomen: Soft, Non Tender, Non-Distended, No Hepato-splenomegaly Extremities: No edema, Capillary Refill Less than 3 Seconds Skin: No rashes, No breakdown Neurological: Neuro grossly intact, Sensory exam intact to light touch and pain Psych/Mental Status: Normal Affect, Appropriate Microbiology Past 72 Hours 10/10/20 08:42 Interface Orders SARS-CoV-2 Antigen (Rapid) - Final Laboratory Results 10/12/20 06:11: POC Glucose 106 Current Medications Diazepam (Diazepam 5 Mg Tablet) 5 mg PO Q6H PRN PRN PRN Reason: Muscle Spasms Duloxetine HCl (Duloxetine Hcl 30 Mg Capsule) 90 mg PO DAILY [facility] Enteral Nutritional Formula (Ensure Surgery 237 Ml Liquid) 237 ml PO TIDCM [facility] Last Admin: 10/12/20 12:18 Dose: Not Given Documented by: Famotidine (Famotidine 20 Mg Tablet) 20 mg PO BID [facility] Gabapentin (Gabapentin 400 Mg Capsule) 400 mg PO TIDCM [facility] Lactated Ringer's () 1,000 mls @ 100 mls/hr IV .Q10H [facility] Last Infusion: 10/12/20 16:01 Dose: 100 mls/hr Documented by: Clindamycin Phosphate 900 mg/ (Dextrose) 106 mls @ 150 mls/hr IV Q8H [facility] Stop: 10/13/20 00:13 Last Infusion: 10/12/20 16:02 Dose: Infused Documented by: Sodium Chloride () 250 mls @ 15 mls/hr IV .[id number] PRN PRN Reason: Saline Flush Sodium Chloride () 250 mls @ 15 mls/hr IV .[id number] PRN PRN Reason: Additional IVPB Infusion Insulin Human Lispro (Insulin Lispro 100 Unit/Ml Insuln.Pen) 1 - 6 unit SC Q4H PRN PRN; Protocol PRN Reason: BG>/= 180, SEE PROTOCOL Stop: 10/12/20 18:00 Methocarbamol (Methocarbamol 750 Mg Tablet) 750 mg PO TID PRN PRN PRN Reason: MUSCLE SPASM Morphine Sulfate (Morphine 4 Mg/Ml Syringe) 2 - 4 mg IV Q2H PRN PRN PRN Reason: Pain Score 6-10 Morphine Sulfate (Morphine 2 Mg/Ml Syringe) 2 - 4 mg IV Q2H PRN PRN PRN Reason: Pain Score 6-10 Last Admin: 10/12/20 13:29 Dose: 2 mg Documented by: Ondansetron HCl (Ondansetron 4 Mg/2 Ml Vial) 4 mg IV Q8H PRN PRN PRN Reason: NAUSEA Senna/Docusate Sodium (Senna/Docusate Sodium 1 Tablet) 2 tablet PO BID [facility] Sodium Chloride (0.9% Saline Lock 10 Ml Syringe) 10 - 40 ml IV UD PRN PRN Reason: SALINE FLUSH Tramadol HCl (Tramadol 50 Mg Tablet) 50 - 100 mg PO Q6H PRN PRN PRN Reason: Pain Score 4-5 Zolpidem Tartrate (Zolpidem Tartrate 5 Mg Tablet) 5 mg PO QHS PRN PRN PRN Reason: INSOMNIA STROKE Vital Signs/Narrative: Vital Signs Temp Pulse Resp BP Pulse Ox 10/12/20 15:20 97.4 F L 90 16 109/76 94 10/12/20 13:32 97.2 F L 99 16 111/69 93 Medical Necessity - Tobacco Use Smoking Status: Never smoker Assessment/Plan All Active Problems (Last Reviewed 09/16/19 @ 13:13 by Noa Woods) Ruptured lumbar disc (Acute) Debility (Acute) Sciatica (Acute) Lumbar back pain with radiculopathy affecting right lower extremity (Acute) Intractable back pain (Acute) Lumbar radiculopathy, acute (Acute) URI, acute (Resolved) Breast cancer, right breast (Resolved) Anemia (Resolved) 1. Right laminectomy and discectomy at L3-4 herniation and L3 radiculopathy -Surgery on 10/12/2020 -Pain management per primary -PT/OT -We will continue her home pain regimen -Continue with senna and her bowel regimen per surgery -She still recovering from the OR so she is on 2 L nasal cannula, encourage incentive spirometer 2. Anxiety/depression -Stable -Continue with Cymbalta DVT: SCDs OBSV E&M: [id number] Subsequent observation care L2
[2020-10-12] MEDS: Gabapentin 400 MG Capsule PO (16:43)
[2020-10-12] MEDS: Ensure Surgery 237 ML LIQUID PO (16:43)
[2020-10-12] MEDS: oxyCODONE 5 MG Tablet PO (18:16)
[2020-10-12] MEDS: Famotidine 20 MG Tablet PO (20:01)
[2020-10-12] MEDS: Senna/Docusate Sodium 1 Tablet 2 TABLET PO (20:02)
[2020-10-12] MEDS: traMADol 50 MG Tablet PO (21:43)
[2020-10-12] MEDS: Zolpidem Tartrate 5 MG Tablet PO (22:27)
[2020-10-13] VITALS (8 sets, daily range): BP systolic 111–130; BP diastolic 68–87; PULSE 64–97; RESP 14–18; TEMP 36.6–37.2; O2SAT 88–97
[2020-10-13] MEDS: oxyCODONE 5 MG Tablet PO ×3 (01:25→11:34)
[2020-10-13] MEDS: 0.9% Saline Lock 10 ML Syringe IV (05:38)
[2020-10-13] MEDS: traMADol 50 MG Tablet PO (07:49)
[2020-10-13] MEDS: Gabapentin 400 MG Capsule PO ×2 (07:49→11:31)
[2020-10-13] MEDS: Senna/Docusate Sodium 1 Tablet 2 TABLET PO (07:49)
[2020-10-13] MEDS: Ensure Surgery 237 ML LIQUID PO ×2 (07:49→11:31)
[2020-10-13] MEDS: DULoxetine Hcl 30 MG Capsule 90 MG PO (09:17)
[2020-10-13] MEDS: Famotidine 20 MG Tablet PO (09:17)
--- NOTE | 2020-10-13 11:18 | DCINST_ITS ---
Discharge Activity: May Not Drive, May not drive while taking narcotic pain medications., May Shower, Use Walker May shower in (days): 6 Call your doctor if your incision/area has: Increased Pain/ Swelling, Foul Smelling Discharge Call your doctor if you observe: Fever of 101 or Higher, Inability to urinate, Shortness of breath, Dizziness, Fainting spells, Increased palpitations (irregular heartbeat), Calf discomfort Change Dressing in (Days):: 4 Remove Dressing in (days):: 4 Cleanse incision/area with: Soap & Water Allergies/Adverse Reactions: Allergies Penicillins [PCN] Allergy (Verified 10/12/20 06:02) Unknown amoxicillin trihydrate [From Amoxil] Adverse Reaction (Verified 10/12/20 06:02) Rash ciprofloxacin [From Cipro] Adverse Reaction (Verified 10/12/20 06:02) Nausea ciprofloxacin HCl [From Cipro] Adverse Reaction (Verified 10/12/20 06:02) Nausea actonel Adverse Reaction (Uncoded 10/12/20 06:02) Unknown norvasc Adverse Reaction (Uncoded 10/12/20 06:02) Unknown Medications to take at Discharge Duloxetine Hcl [Cymbalta] 90 mg PO DAILY 09/09/20 Gabapentin [Neurontin] 400 mg PO TIDCM #90 cap 09/21/20 Oxycodone [Oxyir] 10 mg PO Q4H PRN PRN #84 tab 09/21/20 omeprazole 40 mg-sodium bicarbonate 1.1 gram capsule cap PO 10/04/20 Primary Care Physician: Maurilio Castillo MD [Primary Care Provider] - Test Results: Test results from this visit will be discussed in further detail at your follow- up appointment, if applicable. Please Follow Up With: Dr Yeboah
--- NOTE | 2020-10-13 11:20 | CASEMGMT ---
IMAN CHAIREZ in to discuss COLE form with pt. RN CM explained COLE form, pt voiced understanding. Pt signed COLE form and filed in chart. Pt provided with copy of signed COLE form. Pt had no further questions or concerns at this time.
--- NOTE | 2020-10-13 11:25 | DS.PCM_ITS ---
Discharge Date and Diagnosis Date of Admission: 10/12/20 Date of Discharge: 10/13/20 - Secondary Discharge Diagnosis Chronic Problems: Chronic Problems (Last Reviewed 09/16/19 @ 13:13 by Noa Woods) Breast cancer (Chronic) Chronic kidney disease (Chronic) Depression (Chronic) Anxiety (Chronic) Dizziness (Chronic) Herpes simplex (Chronic) Iron deficiency anemia (Chronic) Neuropathic pain (Chronic) Muscle spasm (Chronic) Cough (Chronic) HTN (hypertension) (Chronic) CKD (chronic kidney disease), stage III (Chronic) Anxiety and depression (Chronic) GERD (gastroesophageal reflux disease) (Chronic) Other specified disorders of bone density and structure, unspecified site (Museum Librarian jessica) Osteopenia (Chronic) History of right breast cancer (Chronic) Hospital Course and Treatment Patient was admitted on 10/12/2020 was discharged on 10/13/2020. She has been discharged to the rehab unit. Her course has been unremarkable today I will change her dressing and her incision is healing well. She also reports that her anterior thigh pain is completely resolved. Consultations 1 hospital we consulted hospitalist for medical care. Told to follow-up in my office 1 week from Friday. Probably be discharged out of rehab by then. The orders will be done in rehab Operations: None - laminectomy Procedures: None Summary of Care Provided: The patient is a 70 year old F [] - Physical Exam Vitals/I&O's: Vital Signs Temp Pulse Resp BP Pulse Ox 97.9 F 72 14 130/77 H 94 10/13/20 07:54 10/13/20 08:44 10/13/20 08:44 10/13/20 07:54 10/13/20 08:44 Oxygen Flow Rate (L/min) 2 Oxygen Delivery Method Room Air Weight: 177 lb 11.081 oz Body Mass Index (BMI) 27.8 Intake and Output for Last 24 Hours 10/11/20 10/12/20 10/13/20 23:59 23:59 23:59 Intake Total 4014.66 / 4014.66 785 / 785 Output Total 775 / 775 450 / 450 Balance 3239.66 / 3239.66 335 / 335 Microbiology Past 72 Hours 10/10/20 08:42 Interface Orders SARS-CoV-2 Antigen (Rapid) - Final Current Medications Diazepam (Diazepam 5 Mg Tablet) 5 mg PO Q6H PRN PRN PRN Reason: Muscle Spasms Duloxetine HCl (Duloxetine Hcl 30 Mg Capsule) 90 mg PO DAILY [facility] Last Admin: 10/13/20 09:17 Dose: 90 mg Documented by: Enteral Nutritional Formula (Ensure Surgery 237 Ml Liquid) 237 ml PO TIVAM [facility] Last Admin: 10/13/20 07:49 Dose: 237 ml Documented by: Famotidine (Famotidine 20 Mg Tablet) 20 mg PO BID [facility] Last Admin: 10/13/20 09:17 Dose: 20 mg Documented by: Gabapentin (Gabapentin 400 Mg Capsule) 400 mg PO TIDCM [facility] Last Admin: 10/13/20 07:49 Dose: 400 mg Documented by: Sodium Chloride () 250 mls @ 15 mls/hr IV .[id number] PRN PRN Reason: Saline Flush Sodium Chloride () 250 mls @ 15 mls/hr IV .[id number] PRN PRN Reason: Additional IVPB Infusion Methocarbamol (Methocarbamol 750 Mg Tablet) 750 mg PO TID PRN PRN PRN Reason: MUSCLE SPASM Morphine Sulfate (Morphine 4 Mg/Ml Syringe) 2 - 4 mg IV Q2H PRN PRN PRN Reason: Pain Score 6-10 Morphine Sulfate (Morphine 2 Mg/Ml Syringe) 2 - 4 mg IV Q2H PRN PRN PRN Reason: Pain Score 6-10 Last Admin: 10/12/20 13:29 Dose: 2 mg Documented by: Ondansetron HCl (Ondansetron 4 Mg/2 Ml Vial) 4 mg IV Q8H PRN PRN PRN Reason: NAUSEA Oxycodone HCl (Oxycodone 5 Mg Tablet) 5 mg PO Q4H PRN PRN PRN Reason: Pain Score 4-10 Last Admin: 10/13/20 05:38 Dose: 5 mg Documented by: Senna/Docusate Sodium (Senna/Docusate Sodium 1 Tablet) 2 tablet PO BID [facility] Last Admin: 10/13/20 07:49 Dose: 2 tablet Documented by: Sodium Chloride (0.9% Saline Lock 10 Ml Syringe) 10 - 40 ml IV UD PRN PRN Reason: SALINE FLUSH Last Admin: 10/13/20 05:38 Dose: 10 ml Documented by: Tramadol HCl (Tramadol 50 Mg Tablet) 50 - 100 mg PO Q6H PRN PRN PRN Reason: Pain Score 4-5 Last Admin: 10/13/20 07:49 Dose: 50 mg Documented by: Zolpidem Tartrate (Zolpidem Tartrate 5 Mg Tablet) 5 mg PO QHS PRN PRN PRN Reason: INSOMNIA Last Admin: 10/12/20 22:27 Dose: 5 mg Documented by: Discharge Activity: May Not Drive, May not drive while taking narcotic pain medications., May Shower, Use Walker May shower in (days): 6 Call your doctor if your incision/area has: Increased Pain/ Swelling, Foul Smelling Discharge Call your doctor if you observe: Fever of 101 or Higher, Inability to urinate, Shortness of breath, Dizziness, Fainting spells, Increased palpitations (irregular heartbeat), Calf discomfort Change Dressing in (Days):: 4 Remove Dressing in (days):: 4 Cleanse incision/area with: Soap & Water Home Medications: Medications to take at Discharge Duloxetine Hcl [Cymbalta] 90 mg PO DAILY 09/09/20 Gabapentin [Neurontin] 400 mg PO TIDCM #90 cap 09/21/20 Oxycodone [Oxyir] 10 mg PO Q4H PRN PRN #84 tab 09/21/20 omeprazole 40 mg-sodium bicarbonate 1.1 gram capsule cap PO 10/04/20 Primary Care Physician: Maurilio Castillo MD [Primary Care Provider] - Please Follow Up With: Dr Yeboah Medical Necessity - Tobacco Use Smoking Status: Never smoker Meaningful Use Info Meaningful Use Diagnoses (Choose all that apply): None applicable
--- NOTE | 2020-10-13 11:43 | CASEMGMT ---
Addendum entered by Esthela Witt 10/13/20 11:56: MALIKA received email, Marita states she will try and get pt registered for second vaccine. MALIKA updated pt. Pt thanked this worker, agreeable to [facility] today. Original Note: Social Work Note SW updated that pt is asking why she cannot return to [facility]CU and has concerns being able to do three hours of therapy a day. MALIKA placed a call to Sade with TCU. Sade states TCU has no beds available and pt is in copay days and pending on pt's secondary insurance, pt may or may not have a copay. MALIKA in to speak with pt. MALIKA spoke with pt regarding RU vs TCU. MALIKA updated pt that TCU has no beds available and if pt goes to TCU or any SNF pt is in copay days and pt may or may not have copay amount. MALIKA informed pt that she could go to a different SNF and pt states I am not going to a [place] [facility] [place] in the community, I don't want COVID. MALIKA informed pt then that if she is not able to go home and she doesn't want to go to SNF in the community, option is RU as insurance will cover RU and they have beds available. MALIKA informed pt that the three hours of therapy is not all at once and bed exercises count as therapy. SW informed pt that she can try RU and if she feels she cannot do three hours of therapy, the SW can assist pt going to SNF. SW informed pt that TCU may not have any beds available at that time either though. Pt states she cannot go home. Pt then states while she was on TCU she got approved for COVID vaccination and received first dose. Pt states she was supposed to get second dose yesterday but was unable to do so due to surgery. Pt states she was instructed to call [facility] and [facility] but she has not been able to get through and messages are full. MALIKA informed pt that this worker is not sure what [facility] policy is but can ask Sade. MALIKA placed a call to Sade with [facility] and updated her on discharge to RU today. MALIKA also asked Sade about pt's second COVID test. Sade states that the last clinic was yesterday and it was through [facility] and they will not be coming back. Sade states she will speak with Marita regarding this. Plan: RU today Esthela Witt NANOELECTRONICS ENGINEER, COMMERCIAL OR INSTITUTIONAL CLEANER
--- NOTE | 2020-10-13 12:18 | PHA.DC.MR ---
Pharmacy Service has performed discharge medication reconciliation for this patient. The patient's discharge medication list was reviewed for discrepancies and discrepancies were resolved. Home Medications Duloxetine Hcl [Cymbalta] 90 mg PO DAILY 09/09/20 Gabapentin [Neurontin] 400 mg PO TIDCM #90 cap 09/21/20 Oxycodone [Oxyir] 10 mg PO Q4H PRN PRN #84 tab 09/21/20 omeprazole 40 mg-sodium bicarbonate 1.1 gram capsule cap PO 10/04/20
--- NOTE | 2020-10-13 12:38 | NURSING ---
pt c/o gas cramping, feels bloated with unable to have bowel movement. requesting something more for bowels. aware pt drank prune juice x2 this a.m. and on scheduled senokot. Dr. Yeboah paged.
--- NOTE | 2020-10-13 13:37 | NURSING ---
report called to Noni in Rehab unit and informed awaiting return call from Dr. Cohen prior to sending patient.
[2020-10-13] MEDS: Polyethylene Glycol 3350 17 GM PACKET PO (15:40)
--- NOTE | 2020-10-13 15:46 | NURSING ---
updated report called to [facility]
== END 2020-10-13 15:54 ==
LOC: SDC 11:36 → MS3 11:36
PROVIDERS: Admitting Provider Orthopaedic Surgery; PCP Family Medicine; Referring Provider Orthopaedic Surgery; Visit Provider Orthopaedic Surgery
PROC: (CPT 63030; principal; 2020-10-12 07:00)
DX: M51.16 Intervertebral disc disorders with radiculopathy, lumbar region (principal); Z20.828 Contact with and (suspected) exposure to other viral communicable diseases; F41.9 Anxiety disorder, unspecified; M19.90 Unspecified osteoarthritis, unspecified site; K21.9 Gastro-esophageal reflux disease without esophagitis; I51.9 Heart disease, unspecified; F32.9 Major depressive disorder, single episode, unspecified; I10 Essential (primary) hypertension; Z79.899 Other long term (current) drug therapy; I12.9 Hypertensive chronic kidney disease with stage 1 through stage 4 chronic kidney disease, or unspecified chronic kidney disease; N18.9 Chronic kidney disease, unspecified; N18.30 Chronic kidney disease, stage 3 unspecified
CPT/HCPCS: 63030; 36415; 72020; 82962; 86703; 86704; 86705; 86706; 86708; 86709; 86803; 87340; 87426; 88304; 93005; 96361; 96365; 96366; 96375; 97162; 99218; C9803; J7120; A4216; G0378; G0379; J2405

== ENCOUNTER 2020-10-13 16:20 | Inpatient (IN) | payer MEDICARE, OTHER, SELFPAY ==
[2020-10-12 11:53] VITALS: BMI 27.8
[2020-10-13 16:48] VITALS: BP 144/75; PULSE 77; RESP 18; TEMP 36.7; O2SAT 96; BMI 27.9
[2020-10-13 16:49] VITALS: BMI 27.8
[2020-10-13] MEDS: traMADol 50 MG Tablet PO (18:25)
[2020-10-13] MEDS: Gabapentin 400 MG Capsule PO (18:29)
--- NOTE | 2020-10-13 19:48 | PCM.HP.STD ---
Problem List (1) Low back pain Status: Chronic (2) Lumbar spinal stenosis Status: Chronic (3) Fecal impaction of colon Status: Acute (4) Debility Status: Acute (5) Sciatica Status: Chronic (6) Chronic kidney disease Status: Chronic (7) Depression Status: Chronic (8) Anxiety Status: Chronic (9) Herpes simplex Status: Chronic (10) Iron deficiency anemia Status: Chronic (11) Neuropathic pain Status: Chronic (12) Muscle spasm Status: Chronic (13) HTN (hypertension) Status: Chronic Qualifiers: (14) GERD (gastroesophageal reflux disease) Status: Chronic Qualifiers: (15) History of right breast cancer Status: Chronic History of Present Illness Date of Admission: 10/13/20 Chief Complaint: Here for 3 hours daily rehabilitation, strengthening, prior to discharge home alone. 10/04/2020 EKG sinus rhythm with premature atrial contractions, otherwise normal EKG. 10/12/2020 The patient is a 70 year old Female with below past medical history admitted to [facility]. 10/12/2020 Ortho spine performed right lateral laminotomy L3 with discectomy. 10/12/2020 Senna, bowel regimen. Oxygen 2 liters per nasal cannula postoperatively. 10/13/2020 Miralax given for constipation.. 10/13/2020 Admit to Rehabilitation Unit for 3 hours daily rehabilitation, strengthening, prior to discharge home alone. Still constipated, Soap suds enema ordered. Past Medical History Past Medical History (Chronic Problems): Chronic Problems (Last Reviewed 09/16/19 @ 13:13 by Noa Woods) Sciatica (Chronic) Breast cancer (Chronic) Chronic kidney disease (Chronic) Depression (Chronic) Anxiety (Chronic) Dizziness (Chronic) Herpes simplex (Chronic) Iron deficiency anemia (Chronic) Neuropathic pain (Chronic) Muscle spasm (Chronic) Cough (Chronic) Low back pain (Chronic) Lumbar spinal stenosis (Chronic) HTN (hypertension) (Chronic) CKD (chronic kidney disease), stage III (Chronic) Anxiety and depression (Chronic) GERD (gastroesophageal reflux disease) (Chronic) Other specified disorders of bone density and structure, unspecified site (Chronic) Osteopenia (Chronic) History of right breast cancer (Chronic) Medical History: Medical History (Last Reviewed 09/16/19 @ 13:13 by Nao Woods) Anxiety F41.9 Arthritis M19.90 Breast cancer C50.919 GERD (gastroesophageal reflux disease) K21.9 Hay fever J30.1 Heart disease I51.9 Herniation of lumbar intervertebral disc M51.26 Kidney disease N28.9 Nephrolithiasis N20.0 Osteopenia M85.80 Hypertension I10 Allergies Penicillins [PCN] Allergy (Verified 10/12/20 06:02) Unknown amoxicillin trihydrate [From Amoxil] Adverse Reaction (Verified 10/12/20 06:02) Rash ciprofloxacin [From Cipro] Adverse Reaction (Verified 10/12/20 06:02) Nausea ciprofloxacin HCl [From Cipro] Adverse Reaction (Verified 10/12/20 06:02) Nausea actonel Adverse Reaction (Uncoded 10/12/20 06:02) Unknown norvasc Adverse Reaction (Uncoded 10/12/20 06:02) Unknown Home Medications: Ambulatory Orders Medication Instructions Recorded Duloxetine Hcl [Cymbalta] 90 mg PO DAILY 09/09/20 Famotidine [Pepcid] 20 mg PO BID 10/13/20 Gabapentin [Neurontin] 400 mg PO TIDCM 10/13/20 Oxycodone [Oxyir] 5 mg PO Q4H PRN PRN 10/13/20 Polyethylene Glycol 3350 [Miralax] 17 gm PO DAILY PRN 10/13/20 Zolpidem Tartrate [Ambien 5 mg PO QHS PRN PRN 10/13/20 (Generic)] traMADol [Ultram (G)] 50 - 100 mg PO Q6H PRN PRN 10/13/20 Surgical History: Surgical History (Last Reviewed 09/16/19 @ 13:13 by Noa Woods) History of appendectomy Z98.890, Z90.49 History of dilation and curettage Z98.890 History of hysterectomy Z98.890, Z90.710 History of lithotripsy Z98.890 History of lumpectomy of right breast Z98.890 History of tonsillectomy Z98.890, Z90.89 Surgical History: appendectomy, dilatation and curettage, hysterectomy, tonsillectomy, - - Right breast lumpectomy, Lithotripsy, Back surgery. Psychiatric History: Anxiety, Depression NAIL MAKER History: No pertinent NAIL MAKER history Lives: Alone - , 08/17/2018. Smoking Status: Never smoker Tobacco Use: Non-smoker Alcohol: None Drugs: None - *Family History Maternal Family History: Family History (Last Reviewed 09/16/19 @ 13:13 by Noa Woods) Mother Multiple myeloma Thyroid disorder Hypertension Hyperlipidemia Heart disease Diabetes Father Diabetes History Items: Cancer - Mother with a history of multimyeloma., Diabetes, High Cholesterol, Heart Disease, Hypertension, - - Mother with a history of thyroid disease. Paternal Family History: Family History (Last Reviewed 09/16/19 @ 13:13 by Noa Woods) Mother Multiple myeloma Thyroid disorder Hypertension Hyperlipidemia Heart disease Diabetes Father Diabetes History Items: Diabetes Review of Systems Constitutional: Denies: Chills, Fever, Weight Change HEENT: Denies: Head Aches, Sinus Congestion, Sinus Drainage Cardiovascular: Denies: Chest Pain, Palpitations Respiratory: Denies: Cough, Shortness of breath at rest, Sputum production Gastrointestinal: Denies: Abdominal Pain, Nausea, Vomiting Genitourinary: Denies: Dysuria Musculoskeletal: Denies: Joint Pain, Joint Tenderness Skin: Denies: Rash, Wounds Neurological: Denies: Numbness, Tingling, Focal weakness Psychiatric: Denies: Anxiety, Depression, Homicidal Ideations, Suicidal Ideations Hematologic/ Lymphatic: Denies: Easy Bruising, Easy Bleeding VTE Information - Inpt Only VTE Present on Admission: No VTE Mechan Device Prophylaxis: SCD's, Knee High JEOVANY Hose VTE Pharm Prophylaxis ordered?: No Reason prophylaxis not ordered:: Treatment Not Indicated Patient Problems: Active and Suspected Problems (Last Reviewed 09/16/19 @ 13:13 by Noa Woods) Debility (Acute) Fecal impaction of colon (Acute) - Physical Exam Vitals/I&O's: Vital Signs Temp Pulse Resp BP Pulse Ox 98.0 F 77 18 144/75 H 96 10/13/20 16:48 10/13/20 16:48 10/13/20 16:48 10/13/20 16:48 10/13/20 16:48 Oxygen Delivery Method Room Air Weight: 80.6 kg Body Mass Index (BMI) 27.8 Intake and Output for Last 24 Hours 10/11/20 10/12/20 10/13/20 23:59 23:59 23:59 Intake Total 240 / 240 Output Total 50 / 50 Balance 190 / 190 General: Alert, Oriented x3, Cooperative HEENT: Atraumatic, PERRLA, EOMI, Normocephalic Neck: Supple, No JVD, Negative Carotid Bruits Lungs: Clear to auscultation, Normal air movement Cardiovascular: Regular rate, No murmurs Abdomen: Bowel Sounds Present, Soft, Non Tender Extremities: No edema, Capillary Refill Less than 3 Seconds Skin: No rashes, No breakdown, Incision - Low back clean, dry, intact. Musculoskeletal: No Tenderness to Palpation of Joints or Extremities Neurological: Cranial nerves II-XII grossly intact Psych/Mental Status: Normal Affect, Appropriate Current Medications Bisacodyl (Bisacodyl 10 Mg Suppository) 10 mg RECTAL .PRN X 1 PRN PRN Reason: Constipation Duloxetine HCl (Duloxetine Hcl 30 Mg Capsule) 90 mg PO DAILY JEANNETTE Famotidine (Famotidine 20 Mg Tablet) 20 mg PO DAILY JEANNETTE Gabapentin (Gabapentin 400 Mg Capsule) 400 mg PO TIDCM [facility] Last Admin: 10/13/20 18:29 Dose: 400 mg Documented by: Magnesium Hydroxide (Magnesium Hydroxide 30 Ml Udc) 30 ml PO .PRN X 1 PRN PRN Reason: Constipation Oxycodone HCl (Oxycodone 5 Mg Tablet) 5 mg PO Q4H PRN PRN PRN Reason: Pain Score 5-10 Polyethylene Glycol (Polyethylene Glycol 3350 17 Gm Packet) 17 gm PO DAILY PRN PRN PRN Reason: CONSTIPATION Senna/Docusate Sodium (Senna/Docusate Sodium 1 Tablet) 2 tablet PO BID [facility] Sodium Chloride (0.9% Saline Lock 10 Ml Syringe) 10 - 40 ml IV UD PRN PRN Reason: SALINE FLUSH Tramadol HCl (Tramadol 50 Mg Tablet) 50 - 100 mg PO Q6H PRN PRN PRN Reason: Pain Score 1-4 Last Admin: 10/13/20 18:25 Dose: 50 mg Documented by: Zolpidem Tartrate (Zolpidem Tartrate 5 Mg Tablet) 5 mg PO QHS PRN PRN PRN Reason: INSOMNIA Assessment/Plan All Active Problems (Last Reviewed 09/16/19 @ 13:13 by Noa Woods) Ruptured lumbar disc (Acute) Debility (Acute) Fecal impaction of colon (Acute) Lumbar back pain with radiculopathy affecting right lower extremity (Acute) Intractable back pain (Acute) Lumbar radiculopathy, acute (Acute) URI, acute (Resolved) Breast cancer, right breast (Resolved) Anemia (Resolved) 70 year old female with below past medical history hospitalized for right lateral laminotomy L3 with discectomy 10/12/2020, admitted to Rehabilitation Unit for 3 hours daily rehabilitation, strengthening, prior to discharge home alone. Debility - PT/OT. Pain - Tramadol 50-100MG Q6H PRN pain (1-4), Oxycodone 5MG Q4H PRN pain (5-10). Bowel - Miralax 17GM daily, Senna/colace 2 tablets BID, MOM 30ML daily PRN, Dulcolax 10MG AK daily PRN, Soap suds enema. Depression - Duloxetine 90MG daily. GERD - Famotidine 20MG BID. Neuropathic pain - Gabapentin 400MG TIDCM. Insomnia - Zolpidem 5MG QHS PRN.
[2020-10-13] MEDS: 0.9% Saline Lock 10 ML Syringe IV (21:23)
[2020-10-13] MEDS: Zolpidem Tartrate 5 MG Tablet PO (21:23)
[2020-10-13] MEDS: Famotidine 20 MG Tablet PO (21:25)
[2020-10-13] MEDS: Senna/Docusate Sodium 1 Tablet 2 TABLET PO (21:26)
--- NOTE | 2020-10-13 21:30 | NURSING ---
Addendum entered by Kassie Friday10/14/20 00:32: Pt also able to void more at this time. Original Note: Soap suds enema administered per order. Pt able to tolerate half of the volume and retain for roughly 5 minutes before having results on BSC. Pt states cramping has reduced in abdomen.
[2020-10-13] MEDS: oxyCODONE 5 MG Tablet PO (21:48)
[2020-10-13 22:00] VITALS: BP 124/79; PULSE 77; RESP 16; TEMP 37.2; O2SAT 95
[2020-10-14] MEDS: oxyCODONE 5 MG Tablet PO ×3 (03:43→22:08)
[2020-10-14 05:50] VITALS: RESP 18; O2SAT 92
[2020-10-14 06:53] LABS: Hematocrit 39.5 % (37-47); Hemoglobin 12.8 g/dL (12.0-15.0); Mean Corp Hgb Conc 32.4 g/dL (32-36); Mean Corpuscular Hgb 33.1 pg (27.0-32.0); Mean Corpuscular Volume 102.1 fL (81-99); Mean Platelet Vol. 10.2 fl (6.2-12.0); Platelet Count 375 K/mm3 (150-450); RBC Distribution Width CV 12.5 % (11.6-14.6); RBC Distribution Width SD 47.2 fl (35.1-43.9); Red Blood Count 3.87 M/mm3 (4.2-5.4); White Blood Count 7.8 K/mm3 (4.4-11.0)
[2020-10-14 07:06] VITALS: BP 116/59; PULSE 89; RESP 18; TEMP 36.9; O2SAT 93
[2020-10-14 07:17] LABS: ALB/GLOB Ratio 0.9 RATIO (0.9-2.4); AST(SGOT) 33 U/L (15-37); Alanine Aminotransfer ALT/SGPT 35 U/L (13-56); Albumin, Serum 2.9 g/dL (3.2-5.0); Alkaline Phosphatase 107 U/L (45-117); Anion Gap 5 (5-15); BUN 18 mg/dL (7-18); BUN/Creat Ratio 16.8 RATIO (10-20); Chloride 105 mmol/L (98-107); Creatinine, Serum 1.07 mg/dL (0.55-1.02); EST Glomerular Filtration Rate 54 mL/min (>60); Est Glom Filt Rate - Afr Amer 65 mL/min (>60); Globulin 3.1 g/dL (2.2-4.2); Glucose 104 mg/dL (74-106); Potassium 4.2 mmol/L (3.5-5.1); Sodium Level 137 mmol/L (136-145)
[2020-10-14] MEDS: Polyethylene Glycol 3350 17 GM PACKET PO (09:21)
[2020-10-14] MEDS: Gabapentin 400 MG Capsule PO ×3 (09:21→18:41)
[2020-10-14] MEDS: Famotidine 20 MG Tablet PO ×2 (09:21→22:01)
[2020-10-14] MEDS: DULoxetine Hcl 30 MG Capsule 90 MG PO (09:23)
[2020-10-14] MEDS: Senna/Docusate Sodium 1 Tablet 2 TABLET PO ×2 (09:26→22:01)
--- NOTE | 2020-10-14 13:12 | PCM.RU.PYE ---
Admission Information Primary Diagnosis:: Lumbar spinal stenosis, status post lumbar decompression surgery. Status Changes from Prescreening?: No changes Identified Actual Problem List:: Pain, ALteration in Cmfrt, Mobility Impaired, Self Care Deficit, Know.Dfct/Disease Process Potential Problem List:: DVT, Bleeding, Infection, UTI, Aspiration, Falls, Skin Integrity, Depression Risk of Complications DVT: LMWH, JEOVANY Hose, Sequential Compression Device Bleeding: Monitor Lab Values, Nursing to Teach Precautions for anti-coagulation therapy., Wound, if applicable, to be assessed every shift., Stroke patients assessed for lethargy or change in status. Infection: Clinical Staff to Monitor for S/S of infection:, S/S of infection include fever, redness, warmth, etc. Urinary Tract Infection: Monitor for frequency, burning, discomfort, or incontinence., Nursing will obtain urine sample for urinalysis and C&S when ordered. Aspiration: Clinical staff will monitor for coughing, drooling, congestion., Speech will evaluate swallowing and dsyphasia., Nursing will monitor patient swallowing during meals. Falls: Patient will be evaluated for Fall Precautions, Patient will be placed on Fall Precautions as indicated per protocol. Skin Breakdown: Nursing will assess skin daily using assessment tool., Nursing will place on Skin Breakdown Precautions as indicated. Pain: Clinical staff will assess patient's pain level per protocol., Medications will be given, if needed, and the pain level reassessed., Other methods: Massage, distraction, decrease stimulus, etc. used PRN. Plan of Care Patient requires physician specializing in physical medicine and rehab oversight to provide close medical supervision of rehab issues including: Pain Management, Sleep Problems, Bowel and Bladder, Medical and co-morbidity Management, DVT prophylaxis, Rehabilitation Leadership, Coordination of treatment team Patient needs Physical Therapy: For a minimum of 1 hour, At least 5 out of 7 days Patient needs Physical Therapy to improve:: Mobility, Mobility, Mobility, Strengthening, Transfers, Stretching, ROM, Endurance, Stairs, Gait, Balance Patient needs Occupational Therapy: For a minimum of 1 hour, At least 5 out of 7 days Patient needs Occupational Therapy to improve ADL's incl.: Eating, Grooming, Bathing, Dressing, Toileting, Toilet transfers, Community Reintegration, Higher functioning activities, Household tasks, Adaptive Equipment, Splinting, Other activities as determined Patient requires speech therapy: For a minimum of 1 hour, At least 5 out of 7 days Patient requires speech therapy for: Swallowing, Cognition, Language Skills, Compensatory Strategies Patient requires 24/ Rehabilitation Nursing for: Pain Issues, Identifying and preventing risk factors, Monitoring and reporting current medical conditions, Assisting with ambulation, transfer, and all ADL's, Teaching patients about disease process and medications, Family teaching, Providing safe environment, Bowel and Bladder Issues, Skin integrity, Medication Management Patient needs Commercial Credit Portfolio Manager/ Case Management for: Discharge Planning, Arranging Home Equipment or Services, Family Interventions Patient needs Dietary and Nutrition Services for: Adequate Nutrition, Nutritional Supplements, Nutritional Education Goals Patient will remain: free from falls, or injury at time of discharge. Patient will perform bed mobility at: MOD I level of assist. Patient will complete transfers from bed to chair at: MOD I level of assist. Patient will ambulate: with MOD I assist, with LRD, - - 150 feet Patient will complete upper body dressing at: MOD I level of assist. Patient will complete lower body dressing at: MOD I level of assist. Patient will complete toileting at: MOD I level of assist. Patient will perform bathing at: - - Supervision. Patient will complete grooming at: MOD I level of assist. Patient will complete home management skills at: MOD I level of assist. Patient will achieve: at MOD I assist, - - 3 steps. Patient will have pain level of: of 3 or less Patient's skin will: remain intact, free from infection. Patient will receive: adequate nutrition. Discharge Planning Pt Prognosis for Sig. Practical Improv. w/in Reasonable Time: Good Estimated Length of stay (days): 20 Anticipated D/C Destination: Home with Outpt Therapy Was Preadmission Assessment Accurate?: Yes
[2020-10-14] MEDS: traMADol 50 MG Tablet PO (13:51)
[2020-10-14 19:16] VITALS: BP 119/62; PULSE 96; RESP 17; TEMP 36.8; O2SAT 92
[2020-10-14 22:00] VITALS: PULSE 77; RESP 16
[2020-10-15] MEDS: oxyCODONE 5 MG Tablet PO ×2 (06:44→13:13)
[2020-10-15] MEDS: DULoxetine Hcl 30 MG Capsule 90 MG PO (07:36)
[2020-10-15] MEDS: Gabapentin 400 MG Capsule PO ×3 (07:36→17:27)
[2020-10-15] MEDS: Famotidine 20 MG Tablet PO ×2 (07:36→21:56)
[2020-10-15] MEDS: Senna/Docusate Sodium 1 Tablet 2 TABLET PO ×2 (07:37→21:55)
[2020-10-15] MEDS: Polyethylene Glycol 3350 17 GM PACKET PO (07:38)
[2020-10-15 07:55] VITALS: O2SAT 92
[2020-10-15 08:38] VITALS: BP 101/70; PULSE 53; RESP 16; TEMP 36.6; O2SAT 93
[2020-10-15] MEDS: Magnesium Hydroxide 30 ML UDC PO (18:44)
[2020-10-15] MEDS: traMADol 50 MG Tablet PO (19:03)
[2020-10-15 19:10] VITALS: BP 114/56; PULSE 92; RESP 18; TEMP 36.6; O2SAT 94
[2020-10-15 22:00] VITALS: PULSE 90; RESP 16; O2SAT 94
[2020-10-16] MEDS: oxyCODONE 5 MG Tablet PO ×4 (03:59→21:34)
[2020-10-16] MEDS: Bisacodyl 10 MG Suppository RECTAL (06:16)
[2020-10-16 07:01] VITALS: BP 120/79; PULSE 62; RESP 16; TEMP 36.3; O2SAT 94
[2020-10-16] MEDS: Gabapentin 400 MG Capsule PO ×3 (08:13→16:24)
[2020-10-16] MEDS: Senna/Docusate Sodium 1 Tablet 2 TABLET PO ×2 (08:13→21:34)
[2020-10-16] MEDS: Polyethylene Glycol 3350 17 GM PACKET PO (08:13)
[2020-10-16] MEDS: Famotidine 20 MG Tablet PO ×2 (08:13→21:34)
[2020-10-16] MEDS: DULoxetine Hcl 30 MG Capsule 90 MG PO (08:13)
[2020-10-16] MEDS: traMADol 50 MG Tablet PO (08:18)
--- NOTE | 2020-10-16 15:14 | CASEMGMT ---
Social Work Met with patient for initial assessment. Pt confirmed full code for code status. Pt reports doing well at home from DC from TCU to surgey. Pt had one fall, but that was due to sitting on a rolling desk chair. No ED visit. Pt reports she liked [facility] and would be agreeable to using them at DC if that is what is recommended. Also discussed [facility]. Pt states she spoke with her PCP about Palliative and unsure about continuing at DC as he is recommending her continue with pain management Explained Medicare approved 15 days with EDC 10/28. Will Team weekly and call brother, per pt request. No other issues noted. Pt's spirits appeared improved from TCU visit. Will continue to follow. KEVIN ReyesW
[2020-10-16 20:19] VITALS: BP 106/71; PULSE 83; RESP 16; TEMP 36.5; O2SAT 93
[2020-10-16] MEDS: Psyllium 1 PACKET PO (21:36)
[2020-10-16] MEDS: Zolpidem Tartrate 5 MG Tablet PO (21:37)
[2020-10-17] MEDS: traMADol 50 MG Tablet PO (07:34)
[2020-10-17] MEDS: DULoxetine Hcl 30 MG Capsule 90 MG PO (07:35)
[2020-10-17] MEDS: Famotidine 20 MG Tablet PO ×2 (07:35→21:06)
[2020-10-17] MEDS: Senna/Docusate Sodium 1 Tablet 2 TABLET PO ×2 (07:35→21:07)
[2020-10-17] MEDS: Gabapentin 400 MG Capsule PO ×3 (07:35→17:22)
[2020-10-17] MEDS: Psyllium 1 PACKET PO ×2 (07:35→21:06)
[2020-10-17 08:45] VITALS: BP 116/55; PULSE 87; RESP 16; TEMP 36.9; O2SAT 94
--- NOTE | 2020-10-17 09:21 | PCM.PN.BLA ---
Progress Note Afebrile VSS-blood pressure is well controlled Maintaining appropriate oxygen saturation on RA Oral intake is good Last bowel movement was 10/16/2020-she has been constipated and she is receiving stool softeners. Discussed with nursing - no problems that need addressed Reviewed the PT/OT notes Medication list reviewed. She is taking OxyIR 5 mg p.o. 4 times daily currently. She is also taking tramadol 50 mg once daily. She has as needed Ambien ordered at bedtime. She is also taking gabapentin 400 mg 3 times daily. All records from recent admission and Dr. Christy's H&P reviewed. PMH is significant for anxiety/depression, osteoporosis (was treated with Prolia and most recent DEXA shows osteopenia only so the Prolia is on hold) , OA, hx of breast CA (had a lumpectomy in 2008 and received 4 cycles of Taxotere/Cytoxan. She also had radiation. She was placed on hormonal therapy but, did not tolerate any of several drugs tried), GERD, seasonal allergies, CAD, Herniated lumbar disc L3-4 with intractable low back and R leg pain in the L3 distribution, CRF stage IIIa, nephrolithiasis, osteopenia and HTN. She underwent a L3 laminotomy and discectomy on 10/12/20. She lives alone and she was admitted to the inpt rehab unit on 10/13/20 for > 3 hours of therapy daily to restore function at or near her prior level of independence/function. All lab was personally reviewed. She is not currently anemic however she has had macrocytic indices beginning in August 2018. Devorah denies radicular pain in the right lower extremity. She only complains of local pain around the incision. She slept well last night. She denies nausea/vomiting/abdominal pain/dysuria/urinary frequency/calf pain/cough. Alert and oriented x3, pleasant, no apparent distress, sitting in the recliner at the bedside Mucous membranes are a little dry, no mucosal lesions Lungs-clear to auscultation throughout Heart-regular with ectopy, no murmur Abdomen-soft, nontender, no suprapubic tenderness Negative Homans, negative Gage The incision is intact with no periincisional erythema and no purulent discharge No rashes and no skin breakdown Impressions 1. Status post laminotomy at L3 with discectomy-radicular pain right lower extremity has completely resolved 2. History of anxiety/depression 3. History of osteoporosis-was treated with Prolia and now has osteopenia, not osteoporosis 4. Osteoarthritis 5. History of breast cancer treated with a lumpectomy, chemotherapy and radiation. She did not tolerate hormonal therapy 6. History of GERD 7. Coronary artery disease 8. Chronic renal failure stage III AAA 9. History of nephrolithiasis 10. Hypertension Continue therapy STROKE Vital Signs/Narrative: Vital Signs Temp Pulse Resp BP Pulse Ox 10/17/20 08:45 98.4 F 87 16 116/55 L 94 Inpatient E&M: 53682 Subs Hosp L2
[2020-10-17 11:30] VITALS: O2SAT 94
[2020-10-17] MEDS: oxyCODONE 5 MG Tablet PO ×2 (13:53→19:54)
[2020-10-17 19:30] VITALS: BP 117/48; PULSE 83; RESP 16; TEMP 36.2; O2SAT 98
[2020-10-17] MEDS: Zolpidem Tartrate 5 MG Tablet PO (21:08)
[2020-10-18] MEDS: Gabapentin 400 MG Capsule PO ×3 (07:44→17:09)
[2020-10-18] MEDS: DULoxetine Hcl 30 MG Capsule 90 MG PO (07:44)
[2020-10-18] MEDS: Senna/Docusate Sodium 1 Tablet 2 TABLET PO ×2 (07:45→23:32)
[2020-10-18] MEDS: Famotidine 20 MG Tablet PO ×2 (07:45→23:31)
[2020-10-18] MEDS: Psyllium 1 PACKET PO ×2 (07:45→23:32)
[2020-10-18] MEDS: traMADol 50 MG Tablet PO ×3 (07:54→23:46)
[2020-10-18 08:22] VITALS: BP 110/57; PULSE 78; RESP 16; TEMP 36.6; O2SAT 95
--- NOTE | 2020-10-18 12:18 | PCM.PN.BLA ---
Progress Note Afebrile VSS Maintaining appropriate oxygen saturation on RA Oral intake is good Discussed with nursing - no problems that need addressed Reviewed the PT/OT notes Medication list reviewed. ALert, oriented X 3, very apprehensive about going home Lungs - CTA HRRR abd - soft and NT with good bowel function no calf pain Impressions 1. Status post laminotomy at L3 with discectomy-radicular pain right lower extremity has completely resolved 2. History of anxiety/depression 3. History of osteoporosis-was treated with Prolia and now has osteopenia, not osteoporosis 4. Osteoarthritis 5. History of breast cancer treated with a lumpectomy, chemotherapy and radiation. She did not tolerate hormonal therapy 6. History of GERD 7. Coronary artery disease 8. Chronic renal failure stage III AAA 9. History of nephrolithiasis 10. Hypertension Continue current medications continue therapy STROKE Vital Signs/Narrative: Vital Signs Temp Pulse Resp BP Pulse Ox 10/18/20 08:22 97.8 F 78 16 110/57 L 95 Inpatient E&M: 84142 Subs Hosp L2
[2020-10-18 18:58] VITALS: BP 124/73; PULSE 91; RESP 18; TEMP 36.6; O2SAT 93
[2020-10-19] MEDS: oxyCODONE 5 MG Tablet PO ×2 (03:46→14:44)
[2020-10-19] MEDS: DULoxetine Hcl 30 MG Capsule 90 MG PO (08:16)
[2020-10-19] MEDS: Senna/Docusate Sodium 1 Tablet 2 TABLET PO ×2 (08:16→21:06)
[2020-10-19] MEDS: Psyllium 1 PACKET PO ×2 (08:16→21:06)
[2020-10-19] MEDS: Gabapentin 400 MG Capsule PO ×3 (08:16→16:45)
[2020-10-19] MEDS: Famotidine 20 MG Tablet PO ×2 (08:16→21:05)
[2020-10-19] MEDS: traMADol 50 MG Tablet PO ×2 (08:18→21:05)
[2020-10-19 08:41] VITALS: BP 123/76; PULSE 66; RESP 16; TEMP 36.1; O2SAT 96
--- NOTE | 2020-10-19 09:51 | CASEMGMT ---
Social Work IDT met with patient, brother and ESTER via conference call for Team meeting. Discussed patient's progress in therapy and nursing. Pt progressing well. Trialing different AD and no AD on multiple surfaces. Pt following back precautions and using AE for LE. Pain controlled and martínez removed 3/4. Will ReTeam. Explained Medicare approved 15 days with DC 3/6 and IDT agreeable pt will safe to return home alone. SW to follow for DC planning. Daisy Peañ ,APPRAISER ART ROAD TESTER
--- NOTE | 2020-10-19 15:54 | CHAPLAIN ---
Type of Pastoral Visit _x__ Initial Visit ___ Follow-up Visit ___ On-call Visit ___ General Patient Visit ___ Spiritual Assessment ___ Family Conference ___ Bereavement ___ Rapid Response ___ Code Blue ___ Other (describe below) Pastoral Care Referral From _x__ Patient ___ Family ___ Nurse ___ Physician ___ Nursery School Teacher ___ Production Or Plant Engineer ___ Other (describe below) Sacrament/Intervention _x__ Active listening ___ Anointing ___ Hinduism ___ Bereavement ___ Communion ___ Carrie exploration ___ ___ Life review _x__ Prayer ___ Reconciliation ___ Sacrament of Sick _x__ Supportive presence ___ Wedding ___ Other (describe below) Pastoral Comments patient was seen in TCU before; pt reports good surgery and 'much less pain' and recovery has started; pt appears and also reports to be encouraged; pt welcomes presence and prayers for spiritual support; pt admits to being tired after therapy sessions and so visit is kept brief.
--- NOTE | 2020-10-19 16:28 | PCM.PN.BLA ---
Progress Note Devorah was seen on team rounds today. Her brother Shashi and [id number] Mela participated by phone. Afebrile VSS Maintaining appropriate oxygen saturation on RA Oral intake is good Discussed with nursing - no problems that need addressed Reviewed the PT/OT notes - She is progressing well in therapy. Less apprehensive about going home but, still asking everyone if she will be ready. I reassure her that She is doing very well and I think she will be fine going home by herself. Medication list reviewed. Alert, pleasant and appears in NAD Lungs-clear to auscultation Mucous membranes are moist Heart-regular rate and rhythm, no gallop Abdomen-soft, nontender, nondistended, no guarding with palpation No calf pain No rashes and no skin breakdown The spinal incision is intact with no dehiscence, no erythema no discharge. Impressions 1. Status post laminotomy at L3 with discectomy-radicular pain right lower extremity has completely resolved 2. History of anxiety/depression Continue therapy Plan on DC home on 10/28/20 Encouraged her to try and decrease the narcotic use....she has been using both Oxycodone and Tramadol.....would like to limit pain meds to only 1 prior to DC. Inpatient E&M: [id number] Subs Hosp L2
[2020-10-19 20:53] VITALS: BP 119/68; PULSE 62; RESP 17; TEMP 36.1; O2SAT 97
[2020-10-20] MEDS: Famotidine 20 MG Tablet PO ×2 (07:46→22:02)
[2020-10-20] MEDS: Psyllium 1 PACKET PO (07:47)
[2020-10-20] MEDS: Senna/Docusate Sodium 1 Tablet 2 TABLET PO (07:47)
[2020-10-20] MEDS: Gabapentin 400 MG Capsule PO ×3 (07:47→17:21)
[2020-10-20] MEDS: DULoxetine Hcl 30 MG Capsule 90 MG PO (07:47)
[2020-10-20] MEDS: traMADol 50 MG Tablet PO ×2 (07:53→22:04)
[2020-10-20 08:22] VITALS: BP 140/72; PULSE 64; RESP 18; TEMP 36.4; O2SAT 96
[2020-10-20 21:50] VITALS: BP 125/67; PULSE 73; RESP 18; TEMP 36.5; O2SAT 95
[2020-10-21] MEDS: traMADol 50 MG Tablet PO ×3 (05:44→23:15)
[2020-10-21 07:30] VITALS: BP 149/86; PULSE 80; RESP 18; TEMP 36.1; O2SAT 96
[2020-10-21] MEDS: Famotidine 20 MG Tablet PO ×2 (07:53→20:51)
[2020-10-21] MEDS: Gabapentin 400 MG Capsule PO ×3 (07:53→16:30)
[2020-10-21] MEDS: DULoxetine Hcl 30 MG Capsule 90 MG PO (07:53)
[2020-10-21 19:52] VITALS: BP 119/79; PULSE 80; RESP 16; TEMP 36.7; O2SAT 95
[2020-10-21 20:50] VITALS: PULSE 80; RESP 16; O2SAT 95
[2020-10-22 07:30] VITALS: BP 133/79; PULSE 74; RESP 16; TEMP 36.7; O2SAT 93
[2020-10-22] MEDS: Gabapentin 400 MG Capsule PO ×3 (08:06→17:57)
[2020-10-22] MEDS: Psyllium 1 PACKET PO ×2 (08:06→19:41)
[2020-10-22] MEDS: DULoxetine Hcl 30 MG Capsule 90 MG PO (08:07)
[2020-10-22] MEDS: Famotidine 20 MG Tablet PO ×2 (08:07→19:41)
[2020-10-22] MEDS: traMADol 50 MG Tablet PO ×2 (08:09→19:41)
--- NOTE | 2020-10-22 17:30 | NURSING ---
up and ambulated in halls today with standby assist. tolerated well.
[2020-10-22 19:30] VITALS: BP 125/70; PULSE 66; RESP 18; TEMP 36.4; O2SAT 95
[2020-10-23] MEDS: traMADol 50 MG Tablet PO ×2 (06:13→12:54)
[2020-10-23] MEDS: Gabapentin 400 MG Capsule PO ×3 (08:16→16:15)
[2020-10-23] MEDS: DULoxetine Hcl 30 MG Capsule 90 MG PO (08:16)
[2020-10-23] MEDS: Psyllium 1 PACKET PO ×2 (08:16→21:23)
[2020-10-23] MEDS: Famotidine 20 MG Tablet PO ×2 (08:16→21:24)
[2020-10-23 09:11] VITALS: BP 115/61; PULSE 73; RESP 16; TEMP 36.7; O2SAT 95
--- NOTE | 2020-10-23 13:35 | PCM.PN.BLA ---
Progress Note Afebrile VSS Maintaining appropriate oxygen saturation on RA Oral intake is good Discussed with nursing - no problems that need addressed Reviewed the PT/OT notes Medication list reviewed. no complaints. She denies chest pain, shortness of breath, palpitations, calf pain, constipation, nausea/vomiting. Pain is adequately controlled and she is sleeping well Alert, appropriate, no apparent distress Mucous membranes are moist Lungs are clear to auscultation Heart-regular rate and rhythm, no gallop Abdomen-soft, nondistended, normal bowel sounds No ankle edema No calf pain No rashes The incision is intact with no erythema and no discharge Impressions 1. Status post laminotomy at L3 with discectomy-radicular pain right lower extremity has completely resolved 2. History of anxiety/depression 3. Stage IIIa chronic renal failure 4. [id number] Continue therapy Discontinue oxycodone and she will use tramadol for pain control Inpatient E&M: [id number] Subs Hosp L2
[2020-10-23 20:01] VITALS: BP 125/86; PULSE 68; RESP 18; TEMP 36.7; O2SAT 95
[2020-10-23] MEDS: Senna/Docusate Sodium 1 Tablet 2 TABLET PO (21:24)
[2020-10-23] MEDS: oxyCODONE 5 MG Tablet PO (21:24)
[2020-10-24] MEDS: Gabapentin 400 MG Capsule PO ×3 (07:58→17:22)
[2020-10-24] MEDS: Senna/Docusate Sodium 1 Tablet 2 TABLET PO (07:59)
[2020-10-24] MEDS: Psyllium 1 PACKET PO (07:59)
[2020-10-24] MEDS: Famotidine 20 MG Tablet PO ×2 (07:59→21:00)
[2020-10-24] MEDS: DULoxetine Hcl 30 MG Capsule 90 MG PO (07:59)
[2020-10-24] MEDS: traMADol 50 MG Tablet PO ×2 (08:02→20:59)
[2020-10-24 08:08] VITALS: BP 117/58; PULSE 69; RESP 16; TEMP 36.3; O2SAT 93
--- NOTE | 2020-10-24 10:38 | CASEMGMT ---
Social Work Spoke with pt to discuss DC plans for 10/28. Pt requesting outpatient therapy at [facility]. Referral made for PT. Scheduled appt, per pt request, with [facility] van for transport for 10/31 at 11 am. Pt requesting cane. Referral made to [facility]. Pt is aware to chicken picker at [facility]. Friend to transport pt home. Pt would still like to wait on starting Palliative services. No other neds. Plan; DC home alone 10/28, [facility] PT, KEVIN RouseW
[2020-10-24] MEDS: oxyCODONE 5 MG Tablet PO (13:43)
[2020-10-24 20:50] VITALS: BP 119/70; PULSE 74; RESP 16; TEMP 36.4; O2SAT 95
[2020-10-25] MEDS: traMADol 50 MG Tablet PO (06:32)
[2020-10-25] MEDS: DULoxetine Hcl 30 MG Capsule 90 MG PO (07:51)
[2020-10-25] MEDS: Gabapentin 400 MG Capsule PO ×3 (07:51→17:04)
[2020-10-25] MEDS: Psyllium 1 PACKET PO ×2 (07:52→20:10)
[2020-10-25] MEDS: Famotidine 20 MG Tablet PO ×2 (07:52→20:10)
[2020-10-25 08:56] VITALS: BP 114/80; PULSE 80; RESP 16; TEMP 36.7; O2SAT 94
[2020-10-25 19:31] VITALS: BP 133/88; PULSE 83; RESP 16; TEMP 36.1; O2SAT 96
[2020-10-25 20:00] VITALS: PULSE 83; RESP 16; O2SAT 96
[2020-10-25] MEDS: oxyCODONE 5 MG Tablet PO (20:10)
[2020-10-25] MEDS: Arthritis Pain Compound 60 CLICK TUBE TOPICAL (20:10)
--- NOTE | 2020-10-26 03:31 | NURSING ---
Reviewed and agree with HOPS FARMWORKER documentation and charting.
[2020-10-26] MEDS: traMADol 50 MG Tablet PO ×3 (06:14→22:33)
[2020-10-26 07:39] VITALS: BP 122/71; PULSE 68; RESP 16; TEMP 36.5; O2SAT 95
[2020-10-26] MEDS: DULoxetine Hcl 30 MG Capsule 90 MG PO (08:20)
[2020-10-26] MEDS: Arthritis Pain Compound 60 CLICK TUBE TOPICAL ×2 (08:21→22:29)
[2020-10-26] MEDS: Psyllium 1 PACKET PO ×2 (08:21→22:29)
[2020-10-26] MEDS: Famotidine 20 MG Tablet PO ×2 (08:21→22:29)
[2020-10-26] MEDS: Gabapentin 400 MG Capsule PO ×3 (08:21→16:29)
[2020-10-26] MEDS: Senna/Docusate Sodium 1 Tablet 2 TABLET PO ×2 (08:21→22:29)
--- NOTE | 2020-10-26 08:35 | NURSING ---
[place] removed from lumbar incision as per order, pt tolerated well, no drainage noted and left PRIMER EXPEDITOR AND DRIER.
--- NOTE | 2020-10-26 10:46 | CASEMGMT ---
Social Work IDT met with patient and brother via conference call for Team meeting. Pt had friend supervisor opening and picking cane from [facility]. Appt scheduled at [facility] for PT. Friend to transport pt at [place] 10/28. No other issues. Pt is mod I. Plan: DC 10/28 Daisy Peña, KEVIN VÁSQUEZW
--- NOTE | 2020-10-26 14:38 | NURSING ---
pt received second dose of covid vaccine
--- NOTE | 2020-10-26 18:10 | PCM.PN.BLA ---
Progress Note Devorah was seen on team rounds today. Her family participated by phone. Afebrile VSS Maintaining appropriate oxygen saturation on RA Oral intake is good Discussed with nursing - no problems that need addressed Reviewed the PT/OT notes Medication list reviewed. She is taking only 1-2 tramadol 50 mg tablets daily for pain. She tells me her knee pain improved with the application of the compounded arthritis cream to her knees twice daily. She denies calf pain, chest pain, shortness of breath, hemoptysis, nausea/vomiting, abdominal pain, constipation, lightheadedness. Alert, oriented x3, no apparent distress, pleasant and making good eye contact Mucous membranes are moist, no mucosal lesions Lungs-good air exchange, clear to auscultation, no conversational dyspnea, not tachypneic Heart-regular rate and rhythm, no gallop Abdomen-soft, nondistended, normal bowel sounds, no guarding with palpation No peripheral edema No calf pain, negative Homans, negative Gage sign No rashes The incision is intact with no discharge. There is a scab over the caudal portion of the incision due to previous serosanguineous discharge. There is no periincisional erythema and no increased warmth to touch. She denied pain with palpation. Impressions 1. Physical debility secondary to herniated L3-4 disc with intractable low back pain and radicular pain of the right lower extremity 2. History of laminotomy at L3-4 with discectomy on 10/12/[address] Hawk Yeboah 3. Hypertension-controlled Plan for discharge on 10/28/2020. Outpatient physical therapy at [facility] is planned. Inpatient E&M: [id number] [facility] Hosp L2
[2020-10-26 19:46] VITALS: BP 119/72; PULSE 72; RESP 16; TEMP 36.2; O2SAT 97
[2020-10-27] MEDS: Arthritis Pain Compound 60 CLICK TUBE TOPICAL ×2 (08:20→22:54)
[2020-10-27] MEDS: DULoxetine Hcl 30 MG Capsule 90 MG PO (08:20)
[2020-10-27] MEDS: Senna/Docusate Sodium 1 Tablet 2 TABLET PO (08:20)
[2020-10-27] MEDS: Gabapentin 400 MG Capsule PO ×3 (08:20→18:07)
[2020-10-27] MEDS: Psyllium 1 PACKET PO ×2 (08:20→22:54)
[2020-10-27] MEDS: Famotidine 20 MG Tablet PO ×2 (08:20→22:56)
[2020-10-27] MEDS: traMADol 50 MG Tablet PO (08:21)
[2020-10-27 08:54] VITALS: BP 119/70; PULSE 79; RESP 16; TEMP 36.6; O2SAT 93
[2020-10-27 19:54] VITALS: BP 110/57; PULSE 84; RESP 16; TEMP 36.2; O2SAT 98
[2020-10-28] MEDS: traMADol 50 MG Tablet PO ×2 (03:24→09:36)
[2020-10-28] MEDS: Famotidine 20 MG Tablet PO (07:48)
[2020-10-28] MEDS: Psyllium 1 PACKET PO (07:48)
[2020-10-28] MEDS: Gabapentin 400 MG Capsule PO (07:48)
[2020-10-28] MEDS: DULoxetine Hcl 30 MG Capsule 90 MG PO (07:48)
[2020-10-28] MEDS: Arthritis Pain Compound 60 CLICK TUBE TOPICAL (07:49)
--- NOTE | 2020-10-28 09:04 | PCM.DC ---
- Discharge Diagnoses Current Active Problems: Current Active and Chronic Problems (Last Reviewed 09/16/19 @ 13:13 by Noa Woods) Debility (Acute) Sciatica (Chronic) Chronic kidney disease (Chronic) Depression (Chronic) Anxiety (Chronic) Herpes simplex (Chronic) Iron deficiency anemia (Chronic) Neuropathic pain (Chronic) Muscle spasm (Chronic) Low back pain (Chronic) Lumbar spinal stenosis (Chronic) Fecal impaction of colon (Acute) HTN (hypertension) (Chronic) GERD (gastroesophageal reflux disease) (Chronic) History of right breast cancer (Chronic) You will use the following diet at home:: Cardiac - low salt and low fat Your food should be the consistency of: Regular Your liquids should be the consistency of: Regular/Thin Discharge Activity: May Not Drive, May not drive while taking narcotic pain medications., May Shower, - - Use the wheeled walker or cane when ambulating outside of your house. Weight Bearing Status: Full weight bearing Lifting Restrictions: no more than 5 lbs Call your doctor if your incision/area has: Continuous Slow Oozing, Sudden Increased Bleeding, Increased Pain/ Swelling, Increased Redness, Foul Smelling Discharge Call your doctor if you observe: Fever of 101 or Higher, Inability to have a bowel movement, Shortness of breath, Chest pain, Calf discomfort, Uncontrolled pain, - - DO NOT use alcohol with narcotic pain medication. DO NOT make important decisions while taking narcotic medication. Do not drive while taking narcotic medication. If you have problems while taking your medication (rash, itching, nausea etc.) call your primary care doctor. Cleanse incision/area with: Soap & Water Additional Dressing/Incision Instructions:: apply vitamin E oil to the area around the incision and massage the area twice a day Additional Instructions: 1. No bending at the waist 2. No lifting more than 5 lbs 3. No twisting 4. Try and wean yourself off the narcotics. Also start weaning the Gabapentin. Decrease Gabapentin to twice daily (1 in the AM with breakfast and 1 1 hour prior to bed) for 7-10 days and then decrease to 1 at bedtime only. Gabapentin can cause problems with maintaining balance, drowsiness, constipation, dry mouth, abnormalities in thinking and swelling in the ankles. Tramadol is categorized as a narcotic now....it did not start out that way but, the rules changed a few years ago. 5. Do the exercises given to you by the therapists twice a day. 6. If you belong to [employer] or another pool consider exercising in the pool....it off loads the weight and you can strengthen the legs without causing pain. 7. Keep your spinal precautions. 8. I am giving you a prescription for the cream you have been using on your knees. You could also use it on the low back for pain. The only place you can get this cream is at the [facility] outpatient pharmacy.......the pharmacist there is a compounding pharmacist and as far as I know he is the only one in the area. 9. It was a pleasure meeting you Devorah and I am glad we were able to help you through the post-operative pain and get you home. Stay well and if you ever need our services again we will gladly welcome you back. If you have any questions after you leave my office phone is [phone]. The rehab nurses desk is [phone]. My cell number is [phone]. Allergies/Adverse Reactions: Allergies Penicillins [PCN] Allergy (Verified 10/12/20 06:02) Unknown amoxicillin trihydrate [From Amoxil] Adverse Reaction (Verified 10/12/20 06:02) Rash ciprofloxacin [From Cipro] Adverse Reaction (Verified 10/12/20 06:02) Nausea ciprofloxacin HCl [From Cipro] Adverse Reaction (Verified 10/12/20 06:02) Nausea actonel Adverse Reaction (Uncoded 10/12/20 06:02) Unknown norvasc Adverse Reaction (Uncoded 10/12/20 06:02) Unknown Medications to take at Discharge Duloxetine Hcl [Cymbalta] 90 mg PO DAILY 09/09/20 Gabapentin [Neurontin] 400 mg PO TIDCM 10/13/20 Polyethylene Glycol 3350 [Miralax] 17 gm PO DAILY PRN 10/13/20 traMADol [Ultram] 50 - 100 mg PO Q6H PRN PRN 10/13/20 Arthritis Pain Compound 2 click TOPICAL BID gm 10/28/20 traMADol [Ultram] 50 mg PO Q6H PRN PRN 7 Days #28 tablet 10/28/20 The following prescriptions were given: traMADol [Ultram] 50 mg PO Q6H PRN PRN 7 Days #28 tablet PRN Reason: Pain Score 4-10 Transmission Status: Sent to [facility] Primary Care Physician: Maurilio Castillo MD [Primary Care Provider] - Test Results: Test results from this visit will be discussed in further detail at your follow-up appointment, if applicable. Please Follow Up With: Dr. Maurilio Castillo-PCP When: Friday Please Follow Up With: Dr. Hawk Yeboah-ortho When: Friday Please Follow Up With: [employer] PT Proposed Discharge Date: 10/28/20
--- NOTE | 2020-10-28 09:26 | DS.PCM_ITS ---
Discharge Date and Diagnosis - Problem List Patient Problems: Active and Suspected Problems (Last Reviewed 09/16/19 @ 13:13 by Noa Woods) Debility (Acute) Date of Admission: 10/13/20 Date of Discharge: 10/28/20 - Primary Discharge Diagnosis Acute Problems: Active Problems (Last Reviewed 09/16/19 @ 13:13 by Noa Woods) Debility due to lumbar canal stenosis with cord compression and radicular pain (Acute) Recent lumbar laminectomy on 10/12/20 - Secondary Discharge Diagnosis Chronic Problems: Chronic Problems (Last Reviewed 09/16/19 @ 13:13 by Noa Woods) Sciatica (Chronic) Breast cancer (Chronic) - resolved Chronic kidney disease (Chronic) - stage 3a Depression (Chronic) Anxiety (Chronic) Dizziness (Chronic) Herpes simplex (Chronic) Iron deficiency anemia (Chronic) Neuropathic pain (Chronic) Muscle spasm (Chronic) Cough (Chronic) Low back pain (Chronic) Lumbar spinal stenosis (Chronic) HTN (hypertension) (Chronic) GERD (gastroesophageal reflux disease) (Chronic) Osteopenia (Chronic) Hospital Course and Treatment Imaging Results: Laboratory Last Values WBC 7.8 K/mm3 (4.4-11.0) 10/14/20 06:45 RBC 3.87 M/mm3 (4.2-5.4) L 10/14/20 06:45 Hgb 12.8 g/dL (12.0-15.0) 10/14/20 06:45 Hct 39.5 % (37-47) 10/14/20 06:45 MCV 102.1 fL (81-99) H 10/14/20 06:45 MCH 33.1 pg (27.0-32.0) H 10/14/20 06:45 MCHC 32.4 g/dL (32-36) 10/14/20 06:45 RDW Std Deviation 47.2 fl (35.1-43.9) H 10/14/20 06:45 RDW Coeff of Sarah 12.5 % (11.6-14.6) 10/14/20 06:45 Plt Count 375 K/mm3 (150-450) 10/14/20 06:45 MPV 10.2 fl (6.2-12.0) 10/14/20 06:45 Sodium 137 mmol/L (136-145) 10/14/20 06:45 Potassium 4.2 mmol/L (3.5-5.1) 10/14/20 06:45 Chloride 105 mmol/L (98-107) 10/14/20 06:45 Carbon Dioxide 27.0 mmol/L (21.0-32.0) 10/14/20 06:45 Anion Gap 5 (5-15) 10/14/20 06:45 BUN 18 mg/dL (7-18) 10/14/20 06:45 Creatinine 1.07 mg/dL (0.55-1.02) H 10/14/20 06:45 Estim Creat Clear Calc 45.80 ml/min 10/14/20 06:45 Est GFR (MDRD) Af Amer 65 mL/min (>60) 10/14/20 06:45 Est GFR (MDRD) Non-Af 54 mL/min (>60) L 10/14/20 06:45 BUN/Creatinine Ratio 16.8 RATIO (10-20) 10/14/20 06:45 Glucose 104 mg/dL (74-106) 10/14/20 06:45 Calcium 9.0 mg/dL (8.5-10.1) 10/14/20 06:45 Total Bilirubin 0.40 mg/dL (0.20-1.00) 10/14/20 06:45 AST 33 U/L (15-37) 10/14/20 06:45 ALT 35 U/L (13-56) 10/14/20 06:45 Alkaline Phosphatase 107 U/L (45-117) 10/14/20 06:45 Total Protein 6.0 g/dL (6.4-8.2) L 10/14/20 06:45 Albumin 2.9 g/dL (3.2-5.0) L 10/14/20 06:45 Globulin 3.1 g/dL (2.2-4.2) 10/14/20 06:45 Albumin/Globulin Ratio 0.9 RATIO (0.9-2.4) 10/14/20 06:45 none Operations: None - laminectomy Procedures: None Summary of Care Provided: Devorah Curry is a 70 year old F with a past medical history of anxiety/depression, osteoporosis (treated with Prolia and now has osteopenia), osteoarthritis, history of breast cancer, GERD, seasonal allergies, coronary artery disease, herniated lumbar disc at L3-4 with intractable low back pain and radicular pain in the right lower extremity in the L3 distribution, chronic renal failure stage IIIa, history of nephrolithiasis and hypertension who underwent a L3 laminotomy and discectomy on 10/12/[address] Hawk Yeboah. Katt tucker lives alone and she was admitted to the inpatient rehab unit at [facility] on 10/13/2020 greater than 3 hours of therapy daily to restore function at or near her prior level of independence/function. Devorah's stay in rehab was uneventful. She worked hard and progressed steadily with therapy. At the time of DC pain was controlled with scheduled Tylenol, Gabapentin and Tramadol 1-2 times a day. Prior to discharge Devorah had a ascended and descended 10 steps with 2 rails at standby assist. She was able to do 5 steps with 1 rail and a straight cane at standby assist. She was able to ambulate 330 feet with a straight cane on various surfaces independently. She was independent with all ADLs/self-care. She was given an exercise regimen by the occupational therapist and physical therapist to do twice daily at home. She will have outpatient physical therapy at [facility]. She was discharged on 10/28/2020 with a prescription for tramadol 50 mg, number 28 tablets with no refill. She has follow-up appointments scheduled with Dr. Castillo and also with Dr. Hawk Yeboah. She will adhere to her spinal precautions until released by Dr. Yeboah. Alert, oriented x3, no apparent distress, pleasant and making good eye contact Mucous membranes are moist, no mucosal lesions Lungs-good air exchange, clear to auscultation, no conversational dyspnea, not tachypneic Heart-regular rate and rhythm, no gallop Abdomen-soft, nondistended, normal bowel sounds, no guarding with palpation No peripheral edema No calf pain, negative Homans, negative Gage sign No rashes The incision is intact with no discharge. There is a scab over the caudal portion of the incision due to previous serosanguineous discharge. There is no periincisional erythema and no increased warmth to touch. She denied pain with palpation. This note was generated with [employer] software. It may contain incorrect words, spelling, and punctuation that were not noted in checking the note before signing. Patient Problems: Active and Suspected Problems (Last Reviewed 09/16/19 @ 13:13 by Noa Woods) Debility (Acute) - Physical Exam Vitals/I&O's: Vital Signs Temp Pulse Resp BP Pulse Ox 97.1 F L 84 16 110/57 L 98 10/27/20 19:54 10/27/20 19:54 10/27/20 19:54 10/27/20 19:54 10/27/20 19:54 Oxygen Delivery Method Room Air Weight: 185 lb 3.013 oz Body Mass Index (BMI) 27.8 Intake and Output for Last 24 Hours 10/26/20 10/27/20 10/28/20 23:59 23:59 23:59 Intake Total 1080 / 1080 1200 / 1200 Output Total 450 / 450 Balance 630 / 630 1200 / 1200 Current Medications Bisacodyl (Bisacodyl 10 Mg Suppository) 10 mg RECTAL .PRN X 1 PRN PRN Reason: Constipation Last Admin: 10/16/20 06:16 Dose: 10 mg Documented by: Compound Med (Arthritis Pain Compound 60 Click Tube) 2 click TOPICAL BID [facility]; Protocol Last Admin: 10/28/20 07:49 Dose: 2 click Documented by: Duloxetine HCl (Duloxetine Hcl 30 Mg Capsule) 90 mg PO DAILY [facility] Last Admin: 10/28/20 07:48 Dose: 90 mg Documented by: Famotidine (Famotidine 20 Mg Tablet) 20 mg PO BID [facility] Last Admin: 10/28/20 07:48 Dose: 20 mg Documented by: Gabapentin (Gabapentin 400 Mg Capsule) 400 mg PO TIDCM [facility] Last Admin: 10/28/20 07:48 Dose: 400 mg Documented by: Magnesium Hydroxide (Magnesium Hydroxide 30 Ml Udc) 30 ml PO .PRN X 1 PRN PRN Reason: Constipation Last Admin: 10/15/20 18:44 Dose: 30 ml Documented by: Oxycodone HCl (Oxycodone 5 Mg Tablet) 5 mg PO Q4H PRN PRN PRN Reason: Pain Score 5-10 Last Admin: 10/25/20 20:10 Dose: 5 mg Documented by: Psyllium Hydrophilic Mucilloid (Psyllium 1 Packet) 1 packet PO BID [facility] Last Admin: 10/28/20 07:48 Dose: 1 packet Documented by: Senna/Docusate Sodium (Senna/Docusate Sodium 1 Tablet) 2 tablet PO BID [facility] Last Admin: 10/28/20 07:49 Dose: Not Given Documented by: Sodium Chloride (0.9% Saline Lock 10 Ml Syringe) 10 - 40 ml IV UD PRN PRN Reason: SALINE FLUSH Last Admin: 10/13/20 21:23 Dose: 10 ml Documented by: Tramadol HCl (Tramadol 50 Mg Tablet) 50 mg PO Q6H PRN PRN PRN Reason: Pain Score 1-4 Last Admin: 10/28/20 03:24 Dose: 50 mg Documented by: Zolpidem Tartrate (Zolpidem Tartrate 5 Mg Tablet) 5 mg PO QHS PRN PRN PRN Reason: INSOMNIA Last Admin: 10/17/20 21:08 Dose: 5 mg Documented by: Discharge Activity: May Not Drive, May not drive while taking narcotic pain medications., May Shower, - - Use the wheeled walker or cane when ambulating outside of your house. Weight Bearing Status: Full weight bearing Call your doctor if your incision/area has: Continuous Slow Oozing, Sudden Increased Bleeding, Increased Pain/ Swelling, Increased Redness, Foul Smelling Discharge Call your doctor if you observe: Fever of 101 or Higher, Inability to have a bowel movement, Shortness of breath, Chest pain, Calf discomfort, Uncontrolled pain, - - DO NOT use alcohol with narcotic pain medication. DO NOT make important decisions while taking narcotic medication. Do not drive while taking narcotic medication. If you have problems while taking your medication (rash, itching, nausea etc.) call your primary care doctor. Cleanse incision/area with: Soap & Water Additional Dressing/Incision Instructions:: apply vitamin E oil to the area around the incision and massage the area twice a day Home Medications: Medications to take at Discharge Duloxetine Hcl [Cymbalta] 90 mg PO DAILY 09/09/20 Gabapentin [Neurontin] 400 mg PO TIDCM 10/13/20 Polyethylene Glycol 3350 [Miralax] 17 gm PO DAILY PRN 10/13/20 traMADol [Ultram] 50 - 100 mg PO Q6H PRN PRN 10/13/20 Arthritis Pain Compound 2 click TOPICAL BID gm 10/28/20 traMADol [Ultram] 50 mg PO Q6H PRN PRN 7 Days #28 tablet 10/28/20 Following Prescriptions Were Given to Patient: traMADol [Ultram] 50 mg PO Q6H PRN PRN 7 Days #28 tablet PRN Reason: Pain Score 4-10 Transmission Status: Sent to [facility] Primary Care Physician: Maurilio Castillo MD [Primary Care Provider] - Please Follow Up With: Dr. Maurilio Castillo-PCP When: Friday Please Follow Up With: Dr. Hawk Yeboah-ortho When: Friday Please Follow Up With: [facility] PT Disposition: Home - with OP PT at [facility] Minutes spent on discharge:: 40 Patient Condition:: Good Medical Necessity - Tobacco Use Smoking Status: Never smoker Tobacco Use: Non-smoker Meaningful Use Info Meaningful Use Diagnoses (Choose all that apply): None applicable Inpatient E&M: 05168 Disch Hosp
[2020-10-28 09:42] VITALS: BP 117/70; PULSE 78; RESP 12; TEMP 36.6; O2SAT 93
[2020-10-28 12:48] VITALS: BP 117/70; PULSE 78; RESP 12; TEMP 36.6; O2SAT 93
--- NOTE | 2020-10-28 12:50 | NURSING ---
Discharged to home at this time and verbalized understanding to dc instruct given.
== END 2020-10-28 12:50 | disposition home or self-care (01) | DRG 520 ==
PROVIDERS: Admitting Provider Family Medicine Geriatric Medicine; PCP Family Medicine; Visit Provider Family Medicine Geriatric Medicine
DX: Z47.89 Encounter for other orthopedic aftercare (principal); K21.9 Gastro-esophageal reflux disease without esophagitis; I12.9 Hypertensive chronic kidney disease with stage 1 through stage 4 chronic kidney disease, or unspecified chronic kidney disease; F32.9 Major depressive disorder, single episode, unspecified; F41.9 Anxiety disorder, unspecified; N18.30 Chronic kidney disease, stage 3 unspecified; M48.061 Spinal stenosis, lumbar region without neurogenic claudication; M19.90 Unspecified osteoarthritis, unspecified site; I25.10 Atherosclerotic heart disease of native coronary artery without angina pectoris; Z79.899 Other long term (current) drug therapy; M51.16 Intervertebral disc disorders with radiculopathy, lumbar region; Z20.828 Contact with and (suspected) exposure to other viral communicable diseases; I51.9 Heart disease, unspecified
CPT/HCPCS: 36415; 72020; 80053; 82962; 85027; 86703; 86704; 86705; 86706; 86708; 86709; 86803; 87340; 87426; 88304; 93005; 96361; 96365; 96366; 96375; 97110; 97116; 97162; 97166; 97530; 97535; 97803; 99218; 99251; C9803; J7120; A4216; G0378; G0379; G0463; J2405

== ENCOUNTER → 2020-10-26 13:04 | Outpatient (CLI) | payer MEDICARE, OTHER, SELFPAY ==
[2020-10-13 16:49] VITALS: BMI 27.8
[2020-10-26] MEDS: COVID-19 VACC, MRNA(PFIZER)/PF 30 MCG/0.3 ML SYRINGE IM (19:00)
== END ==
PROVIDERS: PCP Family Medicine; Referring Provider Family Medicine; Visit Provider Family Medicine
DX: Z23 Encounter for immunization (principal)
CPT/HCPCS: 0001A; 0002A; 91300

== ENCOUNTER → 2020-11-21 07:50 | Outpatient (CLI) | payer MEDICARE, OTHER, SELFPAY ==
[2020-11-21 08:29] LABS: Absolute Lymphocyte Count 1.22 X10^3/uL (0.83-4.51); Absolute Neutrophil Count 1.8 X10^3/uL (2.0-7.7); Basophil# 0.05 X10^3/uL; Basophil% 1.4 % (0-1); Eosinophil# 0.13 X10^3/uL; Eosinophils% 3.6 % (0-5); Hematocrit 48.5 % (37-47); Hemoglobin 15.7 g/dL (12.0-15.0); Lymphocyte # 1.22 X10^3/ul (4.0); Lymphocyte % 33.9 % (19-41); Mean Corp Hgb Conc 32.4 g/dL (32-36); Mean Corpuscular Hgb 31.8 pg (27.0-32.0); Mean Corpuscular Volume 98.4 fL (81-99); Mean Platelet Vol. 10.6 fl (6.2-12.0); Monocyte# 0.39 X10^3/uL; Monocyte% 10.8 % (0-10); NRBC Flagged by Analyzer 0 % (0-5); Neutrophil # 1.79 X10^3/uL (2.7-7.7); Neutrophil % 49.7 % (47-70); Platelet Count 326 K/mm3 (150-450); RBC Distribution Width CV 12.3 % (11.6-14.6); RBC Distribution Width SD 44.7 fl (35.1-43.9); Red Blood Count 4.93 M/mm3 (4.2-5.4); White Blood Count 3.6 K/mm3 (4.4-11.0)
[2020-11-21 08:54] LABS: Vitamin B12 698 pg/mL (211-911); Vitamin D,25 Hydroxy 47.8 ng/mL
[2020-11-21 08:56] LABS: AST(SGOT) 18 U/L (15-37); Alanine Aminotransfer ALT/SGPT 23 U/L (13-56); Albumin, Serum 3.5 g/dL (3.2-5.0); Alkaline Phosphatase 103 U/L (45-117); Anion Gap 5 (5-15); BUN 13 mg/dL (7-18); BUN/Creat Ratio 12.6 RATIO (10-20); Calcium,Total 9.2 mg/dL (8.5-10.1); Chloride 108 mmol/L (98-107); Creatinine, Serum 1.03 mg/dL (0.55-1.02); EST Glomerular Filtration Rate 56 mL/min (>60); Est Glom Filt Rate - Afr Amer 68 mL/min (>60); Ferritin 22 ng/mL (8-252); Globulin 3.4 g/dL (2.2-4.2); Glucose 144 mg/dL (74-106); Magnesium 1.7 mg/dL (1.6-2.6); Potassium 3.7 mmol/L (3.5-5.1); Protein, Total 6.9 g/dL (6.4-8.2); Sodium Level 138 mmol/L (136-145)
== END ==
PROVIDERS: PCP Family Medicine; Referring Provider Family Medicine; Visit Provider Family Medicine
DX: E55.9 Vitamin D deficiency, unspecified (principal); I49.3 Ventricular premature depolarization; E53.8 Deficiency of other specified B group vitamins; N18.2 Chronic kidney disease, stage 2 (mild); R25.2 Cramp and spasm
CPT/HCPCS: 36415; 80053; 81001; 82306; 82607; 82728; 83735; 85025

== ENCOUNTER → 2020-12-05 15:13 | Outpatient (CLI) | payer MEDICARE, OTHER, SELFPAY ==
[2019-09-16 13:13] VITALS: BMI 29.2
--- NOTE | 2020-12-05 15:16 | BI_ITS ---
MAMMOGRAPHY - BILATERAL SCREENING REASON FOR EXAM: Female, 70 years old. Routine annual screening examination. PERTINENT HISTORY: Personal history of breast cancer. History of prior right lumpectomy with right axillary node dissection and chemotherapy. TECHNIQUE: Digital bilateral breast lebron (3D mammographic acquisition) in the CC and MLO projections. 2-D mediolateral oblique (MLO) and craniocaudad (CC) views of both breasts were obtained. CAD: Full Field Digital Mammography with Computer Added Detection was performed. COMPARISON: Comparison is made with prior study dated 09/03/2019 and 09/01/2018. FINDINGS: Breast Composition: There are scattered areas of fibroglandular density. There are no dominant masses or suspicious calcifications. The patient is status post lumpectomy in the deep upper medial aspect of the right breast with postoperative surgical changes and scarring. Surgical clips are also seen in the right axillary region. No other significant abnormalities are identified. There has been no significant change since the prior study. BI/SCRN MAMM (CAD)W/LEBRON BILAT IMPRESSION: Stable bilateral screening mammogram. Yearly follow-up mammogram recommended. (A) ASSESSMENT CATEGORY: BIRADS Category 2: Benign. A letter regarding these results will be sent to the patient by the facility within 30 days. Approximately 10% of breast cancers are not detected by mammography. A normal mammogram should not delay biopsy of a clinically suspicious abnormality. [id number] Electronically Signed: Miguel Barrios MD at 8:29 EDT , Service support ,
--- NOTE | 2020-12-05 15:20 | BD_ITS ---
STUDY: DUAL ENERGY X-RAY ABSORPTIOMETRY / DXA REASON FOR EXAM: Female, 70 years old. 733.90OsteopeniaBONE DENSITY REASON FOR EXAM TECHNIQUE: Bone Mineral Density (BMD) measurements of lumbar spine and bilateral hips were obtained. COMPARISON: Comparison is made with prior examination dated 09/01/2018. FINDINGS: Lumbar Spine (L1-L4): g/cm2 (0.897) / T-score (-2.3) / Z-score (-0.6) Findings are suggestive of osteopenia with a high fracture risk. Left Femur Total: g/cm2 (0.791) / T-score (-1.7) / Z-score (-0.2) Left Femoral Neck: g/cm2 (0.851) / T-score (-1.3) / Z-score (0.4) Right Femur Total: g/cm2 (0.747) / T-score (-2.1) / Z-score (-0.6) Right Femoral Neck: g/cm2 (0.864) / T-score (-1.2) / Z-score (0.5) The T-Scores on the most recent prior examination were: Lumbar Spine (L1-L4): There has been worsening of bone density since the previous examination. Left Femur Total: which represents a worsening of 3.9%. Right Femur Total: which represents a worsening of 9.8%. BD/Dexa Bone Density Study IMPRESSION: The patient is considered osteopenic as outlined below according to World Az Organization (WHO) criteria with a high fracture risk. There has been worsening of bone density since the previous examination. Reference Information: The T-score is the number of standard deviations above or below the standard which is normal for young adults at their peak bone mineral density. The World Health Organization (WHO) interprets the T-scores as follows: Above -1 Normal bone density Between -1 and -2.5 Osteopenia Equal to / or below -2.5 Osteoporosis As a practical clinical guideline, osteopenia may be graded as follows: Mild -1 through -1.5 Moderate -1.6 through -2.0 Severe -2.1 through -2.4 The Z-score is the number of standard deviations above or below age-matched controls. A Z-score of less than -1.5 would be considered abnormal. References: 1. NIH Osteoporosis and Related Bone Diseases www osteo.org 2. International Society for Clinical Densitometry www iscd.org 3. National Osteoporosis Foundation www nof.org Electronically Signed: Miguel Barrios MD at 10:46 EDT , Service support ,
== END ==
PROVIDERS: PCP Family Medicine; Referring Provider Internal Medicine Medical Oncology; Visit Provider Internal Medicine Medical Oncology
DX: Z12.31 Encounter for screening mammogram for malignant neoplasm of breast (principal); Z85.3 Personal history of malignant neoplasm of breast; M85.80 Other specified disorders of bone density and structure, unspecified site; Z78.0 Asymptomatic menopausal state
CPT/HCPCS: 77063; 77067; 77080

== ENCOUNTER → 2021-03-29 13:58 | Outpatient (CLI) | payer MEDICARE, OTHER, SELFPAY ==
[2020-12-13 09:23] VITALS: BMI 26.8
[2021-03-29 14:05] LABS: Bacteria 0 SEEN /hpf (None Seen); Mucous, Urine 0 SEEN /hpf (<or=2+); Red Blood Cells-Urine 0 SEEN /hpf (0-5)
[2021-03-29 16:10] LABS: Color, Urine Yellow (Yellow); Glucose, Dipstick Normal (Normal); Ketone-Dipstick Negative (Negative); Leukocyte Esterase-Dipstick 100 /ul (Negative); Nitrite-Dipstick Negative (Negative); Occult Blood-Urine Negative /ul (Negative); Protein-Dipstick 30 mg/dl (Negative); Urine Bilirubin Dipstick Negative (Negative); Urine Clarity Clear (Clear); Urine Urobilinogen Normal (Normal)
[2021-03-29 16:16] LABS: Squamous Epithelial Cells - UA 0-5 SEEN /hpf (5-10); White Blood Cells 0-5 SEEN /hpf (0-5)
[2021-03-29 16:26] LABS: Protein, Urine (Random) 24.6 mg/dL (<11.9); Protein:Creat Ratio 127 mg/g CRE (0-200)
[2021-03-29 18:07] LABS: Absolute Lymphocyte Count 0.97 X10^3/uL (0.83-4.51); Absolute Neutrophil Count 2.1 X10^3/uL (2.0-7.7); Basophil# 0.05 X10^3/uL; Basophil% 1.3 % (0-1); Eosinophil# 0.13 X10^3/uL; Eosinophils% 3.4 % (0-5); Hematocrit 45.2 % (37-47); Hemoglobin 14.3 g/dL (12.0-15.0); Lymphocyte # 0.97 X10^3/ul (0.83-4.51); Lymphocyte % 25.6 % (19-41); Mean Corp Hgb Conc 31.6 g/dL (32-36); Mean Corpuscular Volume 97.8 fL (81-99); Monocyte% 13.2 % (0-10); NRBC Flagged by Analyzer 0 % (0-5); Neutrophil # 2.13 X10^3/uL (2.7-7.7); Neutrophil % 56.2 % (47-70); Platelet Count 333 K/mm3 (150-450); RBC Distribution Width CV 14.4 % (11.6-14.6); RBC Distribution Width SD 51.9 fl (35.1-43.9); Red Blood Count 4.62 M/mm3 (4.2-5.4); White Blood Count 3.8 K/mm3 (4.4-11.0)
[2021-03-29 18:21] LABS: Vitamin D,25 Hydroxy 48.9 ng/mL
[2021-03-29 18:40] LABS: ALB/GLOB Ratio 1.1 RATIO (0.9-2.4); AST(SGOT) 20 U/L (15-37); Alanine Aminotransfer ALT/SGPT 25 U/L (13-56); Albumin, Serum 3.9 g/dL (3.2-5.0); Alkaline Phosphatase 110 U/L (45-117); Anion Gap 7 (5-15); BUN 26 mg/dL (7-18); Calcium,Total 9.4 mg/dL (8.5-10.1); Chloride 105 mmol/L (98-107); Cholesterol 274 mg/dL (200); EST Glomerular Filtration Rate 58 mL/min (>60); Est Glom Filt Rate - Afr Amer 70 mL/min (>60); Globulin 3.4 g/dL (2.2-4.2); Glucose 94 mg/dL (74-106); High Density Lipoprotein 83 mg/dL; Potassium 4.5 mmol/L (3.5-5.1); Protein, Total 7.3 g/dL (6.4-8.2); Sodium Level 140 mmol/L (136-145); Thyroid Stim Hormone (TSH) 1.08 uIU/mL (0.358-3.74); Triglycerides 82 mg/dL; Very Low Density Lipoprotein 16 mg/dL (5-40)
== END ==
LOC: MFPLAB 13:59 → LABSPEC 15:07
PROVIDERS: PCP Family Medicine; Referring Provider Family Medicine; Visit Provider Family Medicine
DX: I10 Essential (primary) hypertension (principal); M85.80 Other specified disorders of bone density and structure, unspecified site
CPT/HCPCS: 80053; 80061; 81001; 82306; 82570; 84156; 84443; 85025

== ENCOUNTER 2021-04-24 09:00 | Day surgery (SDC) | payer MEDICARE, OTHER, SELFPAY ==
[2021-04-10 15:22] VITALS: BMI 26.0
[2021-04-24] VITALS (7 sets, daily range): BP systolic 122–139; BP diastolic 66–88; PULSE 59–65; RESP 16; TEMP 35.8–36.3; O2SAT 99–100; BMI 26.4
--- NOTE | 2021-04-24 09:12 | PCM.HP.BLA ---
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4 gm PO DAILY 12/13/20 [History Confirmed 04/10/21] sennosides-docusate sodium 1 each PO DAILY 12/13/20 [History Confirmed 04/10/21] rosuvastatin 10 mg tablet tablet PO 04/10/21 [History Confirmed 04/10/21] Is last menstrual period known: No Post menopausal: Yes Patient : No PFSH Medical History (Updated 04/10/21 @ 15:20 by Giovanna Warren) Anxiety Arthritis Breast cancer GERD (gastroesophageal reflux disease) Hay fever Heart disease Herniation of lumbar intervertebral disc Hypertension Kidney disease Mitral valve prolapse Nephrolithiasis Osteopenia Premature atrial complex Surgical History History of appendectomy History of dilation and curettage History of discectomy History of hysterectomy History of laminectomy History of lithotripsy History of lumpectomy of right breast History of tonsillectomy Family History Mother Multiple myeloma Thyroid disorder Hypertension Hyperlipidemia Heart disease Diabetes Father Diabetes Social History Smoking Status: Never smoker HPI HPI HPI: MAYA LÓPEZ, is a 70 F who presents to the office today for surgical consultation regarding possibly pursuing an upper endoscopy. The patient is referred by Dr Maurilio Castillo and a written copy of my surgical consult recommendations will be returned to him. By report she is been symptomatic with 20 years of gastroesophageal reflux disease symptoms. She is constantly on Zegerid therapy. Most recent upper endoscopy possibly was 11 years prior. Spicy and tomato based sauces cause her increased discomfort. It is of note that her previous abdominal CT scan performed October 25, 2019 did not demonstrate a gastric abnormality at that time by radiology interpretation. There is a suggestion the patient had an upper scope with pH probe back in 2005. At that point it was recommended to that she try metoclopramide. The patient does not recall that interaction at that time. At this point she has been on a proton pump inhibitor for quite a period of time. She is dependent upon it. Even if she holds it for 1 day she becomes symptomatic. She has had a previous hysterectomy and appendectomy and kidney stones and diagnostic laparoscopy. September 2019 when she had back surgery performed. She otherwise however tries to stay active. She does have a degree of chronic renal insufficiency with an estimated GFR of 58 placing her just into chronic kidney disease stage IIIa. She has hypercholesterolemia with a level of 274. ROS General General: Yes weight change, fatigue and breast cancer; No appetite, colon cancer or weakness HEENT HEENT: No difficulty swallowing, eye injury, eye surgery, swollen glands or hoarseness Endo Endocrine: No thyroid disease, diabetes mellitus, thyroid cancer, Hair loss, heat intolerance or cold intolerance Musc Musculoskeletal: Yes back problems and arthritis; No rheumatoid arthritis, gout or joint pain Cardio Cardiovascular: No murmur, pacemaker, heart disease, atrial fibrillation, high blood pressure, heart attack, heart stent, palpitations, shortness of breat with exertion or chest pain Psych Psychiatric: Yes depression and anxiety; No hearing voices Resp Respiratory: No shortness of breath, No sleep apnea, No cough, No COPD, No asthma, No emphysema and No wheezing Gastro Gastrointestinal: Yes abdominal pain, No nausea or vomiting, No diarrhea, Yes constipation, No blood in stool, Yes acid reflux, No hemorrhoids, No ulcers, No gallbladder problem and No black,tarry stools Rip Hematologic: No blood thinners, No blood disorders, No bleeding, No anemia and No blood clots Neuro Neurologic: No weakness Exam Const General: cooperative, healthy appearing, comfortable and no acute distress Nutritional Appearance: average body habitus Orientation: alert and awake [facility] Head: normal to inspection Eyes General: appearance normal, both eyes and all related structures Resp Effort & Inspection: normal respiratory effort Auscultation: clear to auscultation bilaterally Cardio Rate: regular rate Rhythm: regular rhythm GI Palpation: soft and no hepatosplenomegaly Other: Normal bowel sounds Musc Cervical Spine: normal cervical lordosis Skin General: no rashes or lesions noted Neuro General: patient alert and patient awake Extrem General: no calf tenderness Psych Affect: normal affect COVID (Procedure Consent) Procedure Criteria Procedure Criteria: Yes Elective The surgeon/proceduralist and patient have discussed in detail the risk of exposure to and/or potential harm posed by the COVID-19 virus with having a surgery/procedure at this time versus the risk of delaying the surgery/procedure. It is not possible to know either the risk of delaying the surgery or procedure or chance of getting an infection with perfect accuracy, but a joint decision was made between the patient and the surgeon/proceduralist to proceed at this time with the scheduled surgery/procedure as indicated on the consent form. Assessment and Plan Assessment and Plan (1) GERD (gastroesophageal reflux disease): Status: Chronic Plan - Dr. Sudarshan Royal MD: 70-year-old female proton pump inhibitor dependent reflux esophagitis. I propose for her a esophagogastroduodenoscopy with Nolan pH probe placement. She is aware of the technique, benefit, risk and alternatives. I additionally propose for her esophageal manometry. Based upon her symptoms I believe that she would very likely be a candidate for a laparoscopic reflux procedure. I would anticipate again that this would likely be a laparoscopic toupet procedure. She has had an opportunity to ask questions answered. This point she is willing to undergo the EGD with Nolan pH probe. She is somewhat less excited about the manometry because that has to be done awake. However we will schedule and try to proceed as noted. She states that she was appreciative of my assistance with her as he from malignancy. Appreciate the opportunity of assisting with her surgical care. Copy: Dr Maurilio Royal M.D., F.A.C.S. Coding Level of Care Code 69274 Diagnoses GERD (gastroesophageal reflux disease) K21.9 I have re-examined the patient. There are no clinical changes since date of exam. Sudarshan Royal M.D., F.A.C.S.
[2021-04-24] MEDS: Lactated Ringers 1,000 ML 100 ML IV (09:49)
--- NOTE | 2021-04-24 10:15 | IMM_PTH ---
PATIENT: MAYA LÓPEZ LOC: EN U#:[id number] AGE/SX: 70/F ROOM: RE04/24/[address]: Dr. Sudarshan Royal MD : 1950 BED: DIS: 04/24/2021 SPEC #: [id number] RECD: 04/24/21 14:14 STATUS: MISSY REAbimael #: [id number] ANASTASIA: 04/24/21 10:[address]: Sudarshan Royal DEPT: IMMUNOHISTOCHEMISTRY RECD BY: Anne Parekh ENTERED: 04/24/21 14:15 SP TYPE: IMMUNO OTHR DR: Dr. Maurilio Castillo MD Tissues: A - Stomach, NOS Procedures: H Pylori (initial) PHYSICIAN & INSTITUTION [place] [id number] SPECIMEN INFORMATION: Tissue Source: A ? Antrum biopsy Clinical Info: GERD Specimen Number: [id number] CPT code: 17255 METHODOLOGY: Deparaffinized sections of prefer/formalin-fixed tissue or PAP/DQ stained slides are incubated with monoclonal/polyclonal antibodies/oligonucleotide probes. Localization is made via biotin free immunoperoxidase method. Appropriate controls are performed and reacted as expected. Results on target cell population are indicated in the following table: RESULTS: ANTIBODY / CLONE RESULT Block A H Pylori (polyclonal) negative These tests were developed and their performance characteristics determined by [facility]. They may not have been cleared or approved by the U.S. Food and Drug Administration. The FDA has determined that such clearance or approval is not necessary. INTERPRETATION: A. Antrum biopsy: Negative for Helicobacter pylori organisms. VERA:jono 04/25/2021
--- NOTE | 2021-04-24 10:15 | EGD_PTH ---
PATIENT: MAYA LÓPEZ LOC: EN U#:[id number] AGE/SX: 70/F ROOM: RE04/24/[address]: Dr. Sudarshan Royal MD : 1950 BED: DIS: 04/24/2021 SPEC #: [id number] RECD: 04/24/21 12:22 STATUS: MISSY GABRIELE #: [id number] ANASTASIA: 04/24/21 10:[address]: Sudarshan Royal DEPT: SURGICAL PATHOLOGY RECD BY: Philomena Edwards ENTERED: 04/24/21 13:02 SP TYPE: EGD BIOPSY OT DR: Dr. Maurilio Castillo MD Tissues: A - Gastric mucous membrane B - Gastric mucous membrane C - Gastric mucous membrane Procedures: Special Stain Group II Surgery Specimen Level IV Alcian Blue/PAS (control) HEADER OPERATION: EGD ? PH probe (MAC) PRE-OP DIAGNOSIS: GERD TISSUE SUBMITTED: A ? Antrum biopsy for H. pylori and path, B ? Greater curvature polyp biopsy, C ? GE junction biopsy MICROSCOPIC DIAGNOSIS A. Antrum, biopsy: Mild gastritis. See microscopic description and comment. B. Greater curvature polyp, biopsy: A fragment of gastric mucosa with focal minimal hyperplastic changes. C. GE junction, biopsy: A fragment of gastroesophageal mucosa with mild chronic inflammation. Intestinal metaplasia (goblet cell metaplasia) is not identified. See comment. SJ:jono 04/25/2021 COMMENT A. The results of immunohistochemistry for Helicobacter pylori will be reported separately ([id number]). C. The specimen predominantly consists of squamous mucosa. Alcian blue/PAS stain with matched control is used in the evaluation of the specimen. MICROSCOPIC DESCRIPTION Slides are reviewed. A. The specimen shows fragments of gastric mucosa with chronic inflammatory cell infiltrates in the lamina propria consisting of lymphocytes and plasma cells, consistent with mild chronic gastritis. GROSS DESCRIPTION A - Received in fixative is one container labeled with the patient's name and designated antrum biopsy. The specimen consists of one irregular fragment of light booker soft tissue that measures 0.3 x 0.3 x 0.1 cm. The specimen is totally submitted in one cassette. B - Received in fixative is one container labeled with the patient's name and designated greater curvature polyp biopsy. The specimen consists of one irregular fragment of light booker soft tissue that measures 0.5 x 0.5 x 0.1 cm. The specimen is totally submitted in one cassette. C - Received in fixative is one container labeled with the patient's name and designated GE junction biopsy. The specimen consists of two irregular fragments of light booker soft tissue that in aggregate measure 0.6 x 0.3 x 0.1 cm. The specimen is totally submitted in one cassette. / SJ:rg 04/24/21 TC:3 CPT: 79178 x3, 74909
--- NOTE | 2021-04-24 10:42 | OP.EGD_ITS ---
Patient Name: Devorah Curry Procedure Date: 04/24/2021 10:18 AM Date of : 1950 Age: 70 Procedure: Upper GI endoscopy Indications: Suspected esophageal reflux Providers: Sudarshan Royal MD Referring MD: Maurilio Castillo Medicines: See the Anesthesia note for documentation of the administered medications Complications: No immediate complications. Procedure: Pre-Anesthesia Assessment: - Prior to the procedure, a History and Physical was performed, and patient medications and allergies were reviewed. The patient's tolerance of previous anesthesia was also reviewed. The risks and benefits of the procedure and the sedation options and risks were discussed with the patient. All questions were answered, and informed consent was obtained. Prior Anticoagulants: The patient has taken no previous anticoagulant or antiplatelet agents. ASA Grade Assessment: II - A patient with mild systemic disease. After reviewing the risks and benefits, the patient was deemed in satisfactory condition to undergo the procedure. After obtaining informed consent, the endoscope was passed under direct vision. Throughout the procedure, the patient's blood pressure, pulse, and oxygen saturations were monitored continuously. The Endoscope was introduced through the mouth, and advanced to the second part of duodenum. The upper GI endoscopy was accomplished without difficulty. The patient tolerated the procedure well. Scope In: 10:27:42 AM Scope Out: 10:36:15 AM Total Procedure Duration Time 0 hours 8 minutes 33 seconds Findings: LA Grade A (one or more mucosal breaks less than 5 mm, not extending between tops of 2 mucosal folds) esophagitis with no bleeding was found 38 cm from the incisors. Biopsies were taken with a cold forceps for histology. A mild Schatzki ring was found at the gastroesophageal junction. A small hiatal hernia was present. Diffuse mildly erythematous mucosa without bleeding was found in the gastric antrum. Biopsies were taken with a cold forceps for histology. A few sessile polyps with no bleeding and no stigmata of recent bleeding were found on the greater curvature of the stomach. The polyp was removed with a cold biopsy forceps. Resection and retrieval were complete. The examined duodenum was normal. The FULLER capsule with delivery system was introduced through the mouth and advanced into the esophagus, such that the FULLER pH capsule was positioned 32 cm from the incisors, which was 6 cm proximal to the GE junction. The FULLER pH capsule was then deployed and attached to the esophageal mucosa. The delivery system was then withdrawn. Endoscopy was utilized for probe placement and diagnostic evaluation. Impression: - LA Grade A reflux esophagitis. Biopsied. - Mild Schatzki ring. - Small hiatal hernia. - Erythematous mucosa in the antrum. Biopsied. - A few gastric polyps. Resected and retrieved. - Normal examined duodenum. - The FULLER pH capsule was deployed. Recommendation: - Discharge patient to home. - Resume previous diet. - Continue present medications. - Return to my office in 1 week. Procedure Code(s): --- Professional --- 96249, Esophagogastroduodenoscopy, flexible, transoral; with biopsy, single or multiple 92643, Esophagus, gastroesophageal reflux test; with mucosal attached telemetry pH electrode placement, recording, analysis and interpretation Diagnosis Code(s): --- Professional --- K21.0, Gastro-esophageal reflux disease with esophagitis K22.2, Esophageal obstruction K44.9, Diaphragmatic hernia without obstruction or gangrene K31.89, Other diseases of stomach and duodenum K31.7, Polyp of stomach and duodenum CPT copyright 2017 [employer]. All rights reserved. The codes documented in this report are preliminary and upon recoating machine operator review may be revised to meet current compliance requirements. Sudarshan Royal MD 04/24/2021 10:42:18 AM This report has been signed electronically. Number of Addenda: 0 Note Initiated On: 04/24/2021 10:18 AM
--- NOTE | 2021-04-24 10:42 | OP.CCLET_ITS ---
04/24/2021 Maurilio Castillo [address] [place] [address] Re : Upper GI endoscopy procedure for Devorah Curry Dear Dr. Castillo This procedure was performed on Saturday, April 24, 2021. My impressions and recommendations are as follows: Impressions : - LA Grade A reflux esophagitis. Biopsied. - Mild Schatzki ring. - Small hiatal hernia. - Erythematous mucosa in the antrum. Biopsied. - A few gastric polyps. Resected and retrieved. - Normal examined duodenum. - The FULLER pH capsule was deployed. Recommendations : - Discharge patient to home. - Resume previous diet. - Continue present medications. - Return to my office in 1 week. My findings are described in the full procedure note, which is enclosed. If I can be of further assistance, please feel free to contact me at Doctor phone number(s): Work: . Sincerely, Sudarshan Royal MD 04/24/2021 10:42:18 AM This report has been signed electronically.
== END 2021-04-24 11:24 ==
LOC: EN 09:01 → AC 09:02
PROVIDERS: PCP Family Medicine; Referring Provider Family Medicine; Visit Provider Surgery
PROC: (CPT 43239; principal; 2021-04-24 10:10)
DX: K29.70 Gastritis, unspecified, without bleeding (principal); K21.00 Gastro-esophageal reflux disease with esophagitis, without bleeding; K22.2 Esophageal obstruction; K44.9 Diaphragmatic hernia without obstruction or gangrene; K31.89 Other diseases of stomach and duodenum; K31.7 Polyp of stomach and duodenum; E78.00 Pure hypercholesterolemia, unspecified; N18.31 Chronic kidney disease, stage 3a; Z87.442 Personal history of urinary calculi; Z88.0 Allergy status to penicillin; Z88.1 Allergy status to other antibiotic agents; Z90.710 Acquired absence of both cervix and uterus; Z90.49 Acquired absence of other specified parts of digestive tract
CPT/HCPCS: 43239; 91035; 88305; 88313; 88342; J7120; J2405

== ENCOUNTER → 2021-05-17 09:13 | Day surgery (SDC) | payer MEDICARE, OTHER, SELFPAY ==
[2021-05-17] MEDS: Lidocaine 2% Jelly 1 APPLIC Tube (09:48)
[2021-05-17 09:52] VITALS: BP 161/83; PULSE 73; RESP 16; TEMP 36.3; O2SAT 100
== END ==
PROVIDERS: Surgery; PCP Family Medicine; Referring Provider Family Medicine; Visit Provider Surgery
PROC: F00ZJWZ Instrumental Swallowing and Oral Function Assessment using Swallowing Equipment (ICD-10-PCS; CPT 43235; principal; 2021-05-17 09:25)
DX: K21.9 Gastro-esophageal reflux disease without esophagitis (principal)
CPT/HCPCS: 91010

== ENCOUNTER → 2021-07-31 14:34 | Outpatient (CLI) | payer MEDICARE, OTHER, SELFPAY ==
[2021-07-31 15:33] LABS: Bacteria 0 SEEN /hpf (None Seen); Mucous, Urine 0 SEEN /hpf (<or=2+); Squamous Epithelial Cells - UA 0 SEEN /hpf (5-10)
[2021-07-31 17:59] LABS: Color, Urine Yellow (Yellow); Glucose, Dipstick Normal (Normal); Ketone-Dipstick 5 mg/dl (Negative); Leukocyte Esterase-Dipstick 25 /ul (Negative); Nitrite-Dipstick Negative (Negative); Occult Blood-Urine 10 /ul (Negative); Protein-Dipstick 30 mg/dl (Negative); Urine Clarity Sl. Cloudy (Clear); Urine Urobilinogen 1 mg/dl (Normal)
[2021-07-31 18:00] LABS: Absolute Lymphocyte Count 1.34 X10^3/uL (0.83-4.51); Absolute Neutrophil Count 2.2 X10^3/uL (2.0-7.7); Basophil# 0.04 X10^3/uL; Basophil% 0.9 % (0-1); Eosinophil# 0.11 X10^3/uL; Eosinophils% 2.6 % (0-5); Hematocrit 43.9 % (37-47); Hemoglobin 14.4 g/dL (12.0-15.0); Lymphocyte # 1.34 X10^3/ul (0.83-4.51); Lymphocyte % 31.5 % (19-41); Mean Corp Hgb Conc 32.8 g/dL (32-36); Mean Corpuscular Hgb 31.4 pg (27.0-32.0); Mean Corpuscular Volume 95.6 fL (81-99); Mean Platelet Vol. 11.3 fl (6.2-12.0); Monocyte% 14.1 % (0-10); NRBC Flagged by Analyzer 0 % (0-5); Neutrophil # 2.16 X10^3/uL (2.7-7.7); Neutrophil % 50.7 % (47-70); Platelet Count 257 K/mm3 (150-450); RBC Distribution Width CV 14.4 % (11.6-14.6); RBC Distribution Width SD 49.9 fl (35.1-43.9); Red Blood Count 4.59 M/mm3 (4.2-5.4); White Blood Count 4.3 K/mm3 (4.4-11.0)
[2021-07-31 18:03] LABS: Urine Bilirubin Dipstick 1 mg/dL (Negative)
[2021-07-31 18:09] LABS: Red Blood Cells-Urine 0-5 SEEN /hpf (0-5); White Blood Cells 0-5 SEEN /hpf (0-5)
[2021-07-31 18:34] LABS: Vitamin D,25 Hydroxy 44.8 ng/mL
[2021-07-31 18:40] LABS: ALB/GLOB Ratio 1.1 RATIO (0.9-2.4); AST(SGOT) 23 U/L (15-37); Alanine Aminotransfer ALT/SGPT 38 U/L (13-56); Albumin, Serum 3.7 g/dL (3.2-5.0); Alkaline Phosphatase 90 U/L (45-117); Anion Gap 7 (5-15); BUN 19 mg/dL (7-18); BUN/Creat Ratio 19.4 RATIO (10-20); Calcium,Total 9.5 mg/dL (8.5-10.1); Chloride 106 mmol/L (98-107); Cholesterol 194 mg/dL (200); Creatinine, Serum 0.98 mg/dL (0.55-1.02); EST Glomerular Filtration Rate 59 mL/min (>60); Est Glom Filt Rate - Afr Amer 72 mL/min (>60); Globulin 3.4 g/dL (2.2-4.2); Glucose 76 mg/dL (74-106); High Density Lipoprotein 92 mg/dL; Phosphorus 3.1 mg/dL (2.5-4.9); Potassium 4.4 mmol/L (3.5-5.1); Protein, Total 7.1 g/dL (6.4-8.2); Sodium Level 140 mmol/L (136-145); Triglycerides 76 mg/dL; Very Low Density Lipoprotein 15 mg/dL (5-40)
[2021-07-31 18:46] LABS: Protein, Urine (Random) 27.4 mg/dL (<11.9); Protein:Creat Ratio 107 mg/g CRE (0-200)
[2021-07-31 19:03] LABS: PTHIN 104.2 pg/mL (18.4-80.1)
== END ==
PROVIDERS: PCP Family Medicine; Referring Provider Family Medicine; Visit Provider Family Medicine
DX: E78.5 Hyperlipidemia, unspecified (principal); N18.2 Chronic kidney disease, stage 2 (mild); E55.9 Vitamin D deficiency, unspecified
CPT/HCPCS: 36415; 80053; 80061; 81001; 82306; 82570; 83970; 84100; 84156; 85025

== ENCOUNTER 2021-11-28 13:58 | Outpatient (CLI) | payer MEDICARE, OTHER, SELFPAY ==
[2021-11-28 14:13] LABS: Bacteria 0 SEEN /hpf (None Seen); Mucous, Urine 0 SEEN /hpf (<or=2+); Red Blood Cells-Urine 0 SEEN /hpf (0-5); Squamous Epithelial Cells - UA 0 SEEN /hpf (5-10); White Blood Cells 0 SEEN /hpf (0-5)
[2021-11-28 17:44] LABS: Absolute Lymphocyte Count 1.41 X10^3/uL (0.83-4.51); Basophil# 0.05 X10^3/uL; Eosinophil# 0.07 X10^3/uL; Eosinophils% 1.4 % (0-5); Hematocrit 40.6 % (37-47); Lymphocyte # 1.41 X10^3/ul (0.83-4.51); Lymphocyte % 27.9 % (19-41); Mean Corpuscular Hgb 31.4 pg (27.0-32.0); Mean Corpuscular Volume 98.1 fL (81-99); Monocyte# 0.47 X10^3/uL; Monocyte% 9.3 % (0-10); NRBC Flagged by Analyzer 0 % (0-5); Neutrophil # 3.04 X10^3/uL (2.7-7.7); Neutrophil % 60.2 % (47-70); Platelet Count 247 K/mm3 (150-450); RBC Distribution Width SD 50.9 fl (35.1-43.9); Red Blood Count 4.14 M/mm3 (4.2-5.4); White Blood Count 5.1 K/mm3 (4.4-11.0)
[2021-11-28 18:01] LABS: ALB/GLOB Ratio 1.4 RATIO (0.9-2.4); AST(SGOT) 21 U/L (15-37); Alanine Aminotransfer ALT/SGPT 21 U/L (13-56); Alkaline Phosphatase 86 U/L (45-117); Anion Gap 6 (5-15); BUN 24 mg/dL (7-18); BUN/Creat Ratio 22.2 RATIO (10-20); Calcium,Total 9.3 mg/dL (8.5-10.1); Chloride 107 mmol/L (98-107); Cholesterol 189 mg/dL (200); Color, Urine Yellow (Yellow); Creatinine, Serum 1.08 mg/dL (0.55-1.02); EST Glomerular Filtration Rate 53 mL/min (>60); Est Glom Filt Rate - Afr Amer 64 mL/min (>60); Globulin 2.8 g/dL (2.2-4.2); Glucose 125 mg/dL (74-106); Glucose, Dipstick Normal (Normal); High Density Lipoprotein 107 mg/dL; Ketone-Dipstick 5 mg/dl (Negative); Leukocyte Esterase-Dipstick 25 /ul (Negative); Nitrite-Dipstick Negative (Negative); Occult Blood-Urine Negative /ul (Negative); Potassium 4.3 mmol/L (3.5-5.1); Protein, Total 6.8 g/dL (6.4-8.2); Protein-Dipstick 30 mg/dl (Negative); Sodium Level 140 mmol/L (136-145); Specific Gravity, Urine 1.025 (1.002-1.030); Triglycerides 44 mg/dL; Urine Clarity Clear (Clear); Urine Urobilinogen 1 mg/dl (Normal); Very Low Density Lipoprotein 9 mg/dL (5-40)
[2021-11-28 18:03] LABS: Urine Bilirubin Dipstick 1 mg/dL (Negative)
[2021-11-28 18:11] LABS: Vitamin D,25 Hydroxy 52.2 ng/mL
[2021-11-28 18:21] LABS: Calcium Oxalate Crystals Ur 1+ /hpf (<or=2+)
[2021-11-28 18:27] LABS: Protein:Creat Ratio 102 mg/g CRE (0-200)
[2021-11-29 18:45] LABS: Hemoglobin A1c 5.3 % (3.8-5.6)
== END 2021-11-28 23:59 | disposition home or self-care (01) ==
LOC: MFPLAB 14:05
PROVIDERS: PCP Family Medicine; Referring Provider Family Medicine; Visit Provider Family Medicine
DX: E78.5 Hyperlipidemia, unspecified (principal); E55.9 Vitamin D deficiency, unspecified; N18.2 Chronic kidney disease, stage 2 (mild)
CPT/HCPCS: 36415; 80053; 80061; 81001; 82306; 82570; 83036; 84156; 85025

== ENCOUNTER 2021-12-06 14:32 | Outpatient (CLI) | payer MEDICARE, OTHER, SELFPAY ==
--- NOTE | 2021-12-06 14:34 | BI_ITS ---
MAMMOGRAPHY - BILATERAL SCREENING REASON FOR EXAM: Female, 71 years old. Routine annual screening examination. PERTINENT HISTORY: Personal history of breast cancer. Prior right lumpectomy and axillary node dissection with chemotherapy and radiation therapy. TECHNIQUE: Digital bilateral breast lebron (3D mammographic acquisition) in the CC and MLO projections. 2-D mediolateral oblique (MLO) and craniocaudad (CC) views of both breasts were obtained. CAD: Full Field Digital Mammography with Computer Added Detection was performed. COMPARISON: Comparison is made with prior study dated 12/05/2020 and 09/03/2019. FINDINGS: Breast Composition: There are scattered areas of fibroglandular density. There are no dominant masses or suspicious calcifications. The patient is status post lumpectomy in the deep upper medial aspect of the right breast with resultant postoperative changes and deformity. Surgical clips are also seen in the right axillary region. No other significant abnormalities are identified. There has been no significant change since the prior study. BI/SCRN MAMM (CAD)W/LEBRON BILAT IMPRESSION: Stable bilateral screening mammogram. Yearly follow-up mammogram recommended. (A) ASSESSMENT CATEGORY: BIRADS Category 2: Benign. A letter regarding these results will be sent to the patient by the facility within 30 days. Approximately 10% of breast cancers are not detected by mammography. A normal mammogram should not delay biopsy of a clinically suspicious abnormality. [id number] Electronically Signed: Miguel Barrios MD at 15:24 EDT ,
== END 2021-12-06 23:59 | disposition home or self-care (01) ==
LOC: OPBI 14:33
PROVIDERS: PCP Family Medicine; Visit Provider Internal Medicine Medical Oncology
DX: Z12.31 Encounter for screening mammogram for malignant neoplasm of breast (principal); Z85.3 Personal history of malignant neoplasm of breast
CPT/HCPCS: 77063; 77067

== ENCOUNTER → 2022-03-27 | Outpatient (CLI) | payer MEDICARE, OTHER, SELFPAY ==
--- NOTE | 2022-03-27 14:00 | RAD_ITS ---
STUDY: X-RAY - PELVIS AND RIGHT HIP REASON FOR EXAM: Female, 71 years old. right hip pain TECHNIQUE: XR Hip Unilateral with Pelvis when performed; 2-3 Views COMPARISON: None. FINDINGS: There is a non-specific bowel gas pattern. Normal visualized soft tissue structures. There are degenerative changes of the lumbar spine. Normal bilateral iliac wings, sacroiliac joints and visualized sacrum. Normal bilateral superior and inferior pubic rami. Normal pubic symphysis. Normal bilateral ischial tuberosities. Normal visualized femoral head. Normal acetabulum. Normal hip joint. RAD/HIP, UNI W/ Pelvis 2-3 Views IMPRESSION: No acute findings. Electronically Signed: Dago Smith MD at 20:04 EDT ,
== END | disposition home or self-care (01) ==
PROVIDERS: PCP Family Medicine; Referring Provider Family Medicine; Visit Provider Family Medicine
DX: M71.9 Bursopathy, unspecified (principal)
CPT/HCPCS: 73502

== ENCOUNTER → 2022-05-10 | Outpatient (CLI) | payer MEDICARE, OTHER, SELFPAY ==
--- NOTE | 2022-05-09 16:30 | LES_PTH ---
PATIENT: MAYA LÓPEZ LOC: [facility] U#:[id number] AGE/SX: 72/F ROOM: RE05/10/[address]: Dr. Papi Ceja MD : 1950 BED: DIS: 05/10/2022 SPEC #: [id number] RECD: 05/10/22 09:55 STATUS: MISSY GABRIELE #: [id number] ANASTASIA: 05/09/22 16:[address]: Papi Ceja DEPT: SURGICAL PATHOLOGY RECD BY: Philomena Edwards ENTERED: 05/10/22 11:56 SP TYPE: Lesion OTHR DR: Dr. Maurilio Castillo MD Tissues: Skin of eyelid, NOS Procedures: Surgery Specimen Level III HEADER OPERATION: Lesion removal right medial canthus PRE-OP DIAGNOSIS: Elevated, irregular lesion TISSUE SUBMITTED: Lesion right medial canthus MICROSCOPIC DIAGNOSIS Lesion right medial canthus, biopsy: Consistent with benign fibroepithelial polyp. AM:jono 05/13/2022 COMMENT Case has been reviewed in consultation with Dr. Rodriguez who concurs with the above diagnosis. IDC:SJ MICROSCOPIC DESCRIPTION Slides are reviewed. GROSS DESCRIPTION Received in fixative is one container labeled with the patient's name and designated right medial canthus. The specimen consists of a fragment of booker-white skin measuring 0.4 x 0.2 x 0.1 cm. The specimen is totally submitted in one cassette. / VERA:jono 05/10/2022 TC:5 CPT: 01142
== END | disposition home or self-care (01) ==
LOC: LABSPEC 10:15
PROVIDERS: PCP Family Medicine; Referring Provider Ophthalmology; Visit Provider Ophthalmology
DX: H02.89 Other specified disorders of eyelid (principal)
CPT/HCPCS: 88304; 88305

== ENCOUNTER → 2022-06-25 | Outpatient (CLI) | payer MEDICARE, OTHER, SELFPAY ==
[2022-06-25 17:42] LABS: Absolute Lymphocyte Count 1.37 X10^3/uL (0.83-4.51); Basophil# 0.05 X10^3/uL; Eosinophil# 0.13 X10^3/uL; Eosinophils% 2.5 % (0-5); Hemoglobin 13.8 g/dL (12.0-15.0); Lymphocyte # 1.37 X10^3/ul (0.83-4.51); Mean Corp Hgb Conc 31.4 g/dL (32-36); Mean Corpuscular Hgb 30.5 pg (27.0-32.0); Mean Corpuscular Volume 97.3 fL (81-99); Mean Platelet Vol. 10.8 fl (6.2-12.0); Monocyte# 0.69 X10^3/uL; Monocyte% 13.1 % (0-10); NRBC Flagged by Analyzer 0 % (0-5); Neutrophil # 3.01 X10^3/uL (2.7-7.7); Neutrophil % 57.2 % (47-70); Platelet Count 325 K/mm3 (150-450); RBC Distribution Width SD 50.5 fl (35.1-43.9); Red Blood Count 4.52 M/mm3 (4.2-5.4); White Blood Count 5.3 K/mm3 (4.4-11.0)
[2022-06-25 17:53] LABS: ALB/GLOB Ratio 1.1 RATIO (0.9-2.4); AST(SGOT) 19 U/L (15-37); Alanine Aminotransfer ALT/SGPT 28 U/L (13-56); Albumin, Serum 3.8 g/dL (3.2-5.0); Alkaline Phosphatase 87 U/L (45-117); Anion Gap 5 (5-15); BUN 27 mg/dL (7-18); BUN/Creat Ratio 25.5 RATIO (10-20); Calcium,Total 9.5 mg/dL (8.5-10.1); Chloride 102 mmol/L (98-107); Cholesterol 277 mg/dL (200); Creatinine, Serum 1.06 mg/dL (0.55-1.02); EST Glomerular Filtration Rate 54 mL/min (>60); Est Glom Filt Rate - Afr Amer 66 mL/min (>60); Globulin 3.5 g/dL (2.2-4.2); Glucose 78 mg/dL (74-106); High Density Lipoprotein 118 mg/dL; Potassium 4.9 mmol/L (3.5-5.1); Protein, Total 7.3 g/dL (6.4-8.2); Sodium Level 135 mmol/L (136-145); Triglycerides 88 mg/dL; Very Low Density Lipoprotein 18 mg/dL (5-40)
[2022-06-25 17:59] LABS: Vitamin D,25 Hydroxy 37.9 ng/mL
== END | disposition home or self-care (01) ==
PROVIDERS: PCP Family Medicine; Referring Provider Family Medicine; Visit Provider Family Medicine
DX: E55.9 Vitamin D deficiency, unspecified (principal); E78.5 Hyperlipidemia, unspecified; K21.9 Gastro-esophageal reflux disease without esophagitis
CPT/HCPCS: 36415; 80053; 80061; 82306; 85025

== ENCOUNTER → 2022-09-05 | Outpatient (CLI) | payer MEDICARE, OTHER, SELFPAY ==
--- NOTE | 2022-09-05 07:08 | MRI_ITS ---
STUDY: MRI LUMBAR SPINE WITHOUT CONTRAST REASON FOR EXAM: Female, 72 years old. Back pain. TECHNIQUE: Standardized fat and water weighted pulse sequences were obtained in the sagittal and axial planes. COMPARISON: MRI lumbar spine without contrast 09/07/2020. FINDINGS: T10-T11, T11-T12 and T12-L1: (Sagittal only). Normal endplates. Normal disc height, hydration and morphology. No ventral extradural defects. Normal central canal and bilateral intervertebral neural foramina. Normal lumbar lordosis. There is no substantial scoliosis. Normal conus medullaris that terminates at the mid T12 vertebral body level. L1-2: Normal endplates. Normal disc height. Minimal ventral extradural defect due to minimal degenerative retrolisthesis of L1 on L2. No significant facet arthropathy. Capacious central canal. Normal bilateral lateral recesses. Normal bilateral intervertebral neural foramina. This level is unchanged. L2-3: Broad Schmorl''s node at the L2 inferior endplate with reactive marrow edema. This is a new finding. Small Schmorl''s node in the central L3 superior endplate is unchanged. Mild disc space height narrowing. Mild asymmetric degenerative facet arthropathy, left greater than right. Normal central canal and bilateral lateral recesses. Normal bilateral intervertebral neural foramina. L3-4: Modic type I degenerative vertebral marrow edema underneath the right half the vertebral endplates, previously Modic type II. Moderate disc space height narrowing. Interval decrease in size of the right posterior superior cephalad foraminal disc extrusion but there is moderate stenosis of the right intervertebral neural foramen due to increase right-sided disc space height narrowing and persistent impingement of the right L3 nerve. Normal left intervertebral neural foramen. Normal central canal. Mild asymmetric degenerative facet arthropathy. L4-5: Normal endplates. Mild disc space height narrowing. Minimal ventral extradural defect due to small posterior bulging annulus is unchanged. Mild bilateral degenerative facet arthropathy are unchanged. Normal central canal and bilateral lateral recesses. Normal bilateral intervertebral neural foramina. L5-S1: Modic type II degenerative vertebral marrow fat infiltration underneath the vertebral endplates. Pronounced disc space height narrowing. Mild degenerative anterolisthesis of L5 on S1. Mild asymmetric degenerative facet arthropathy. Capacious central canal. Normal bilateral lateral recesses. Normal bilateral intervertebral neural foramina. Normal visualized sacral ala. Normal visualized paraspinous soft tissue structures. MRI/Spine Lumbar (Routine) IMPRESSION: 1. Mild decrease in size of the right L3-L4 posterior cephalad foraminal disc extrusion but there is moderate stenosis of the right intervertebral neural foramen due to increased right-sided disc space height narrowing and persistent impingement of the right L3 nerve. Additionally, right-sided L3-L4 intervertebral osteochondritis (Modic type I, previously Modic type II). 2. Mild degenerative anterolisthesis of L5 on S1, pronounced disc space height narrowing and Modic type II changes of the vertebral marrow underneath the vertebral endplates. This level is unchanged. 3. Minimal degenerative retrolisthesis of L1 on L2 is unchanged. 4. No other significant interval changes when compared to 09/07/2020. Electronically Signed: Tomas Lucio MD at 8:53 EST ,
== END | disposition home or self-care (01) ==
PROVIDERS: PCP Family Medicine; Referring Provider Orthopaedic Surgery; Visit Provider Orthopaedic Surgery
DX: M54.16 Radiculopathy, lumbar region (principal); M51.37 Other intervertebral disc degeneration, lumbosacral region; M48.061 Spinal stenosis, lumbar region without neurogenic claudication; M51.36 Other intervertebral disc degeneration, lumbar region; M51.26 Other intervertebral disc displacement, lumbar region
CPT/HCPCS: 72148

== ENCOUNTER → 2022-10-23 | Outpatient (CLI) | payer MEDICARE, OTHER, SELFPAY ==
[2022-10-23 14:32] LABS: Bacteria 0 SEEN /hpf (None Seen); Mucous, Urine 0 SEEN /hpf (<or=2+); Red Blood Cells-Urine 0 SEEN /hpf (0-5)
[2022-10-23 15:14] LABS: Color, Urine Yellow (Yellow); Glucose, Dipstick Normal (Normal); Ketone-Dipstick 5 mg/dl (Negative); Leukocyte Esterase-Dipstick 25 /ul (Negative); Nitrite-Dipstick Negative (Negative); Occult Blood-Urine Negative /ul (Negative); Protein-Dipstick 30 mg/dl (Negative); Urine Clarity Sl. Cloudy (Clear); Urine Urobilinogen 1 mg/dl (Normal)
[2022-10-23 15:16] LABS: Urine Bilirubin Dipstick 1 mg/dL (Negative)
[2022-10-23 15:22] LABS: Protein, Urine (Random) 30.3 mg/dL (<11.9); Protein:Creat Ratio 126 mg/g CRE (0-200); Squamous Epithelial Cells - UA 0-5 SEEN /hpf (5-10); White Blood Cells 0-5 SEEN /hpf (0-5)
[2022-10-23 16:21] LABS: Vitamin D,25 Hydroxy 34.7 ng/mL
[2022-10-23 16:22] LABS: ALB/GLOB Ratio 1.2 RATIO (0.9-2.4); AST(SGOT) 19 U/L (15-37); Alanine Aminotransfer ALT/SGPT 24 U/L (13-56); Albumin, Serum 3.9 g/dL (3.2-5.0); Alkaline Phosphatase 88 U/L (45-117); Anion Gap 9 (5-15); BUN 21 mg/dL (7-18); BUN/Creat Ratio 21.9 RATIO (10-20); Calcium,Total 9.5 mg/dL (8.5-10.1); Chloride 102 mmol/L (98-107); Cholesterol 189 mg/dL (200); Creatinine, Serum 0.96 mg/dL (0.55-1.02); EST Glomerular Filtration Rate 61 mL/min (>60); Est Glom Filt Rate - Afr Amer 74 mL/min (>60); Globulin 3.2 g/dL (2.2-4.2); Glucose 82 mg/dL (74-106); High Density Lipoprotein 110 mg/dL; Phosphorus 3.2 mg/dL (2.5-4.9); Potassium 4.2 mmol/L (3.5-5.1); Protein, Total 7.1 g/dL (6.4-8.2); Sodium Level 138 mmol/L (136-145); Triglycerides 69 mg/dL; Very Low Density Lipoprotein 14 mg/dL (5-40)
[2022-10-23 16:29] LABS: Absolute Lymphocyte Count 1.29 X10^3/uL (0.83-4.51); Absolute Neutrophil Count 3.5 X10^3/uL (2.0-7.7); Basophil# 0.03 X10^3/uL; Basophil% 0.6 % (0-1); Eosinophil# 0.11 X10^3/uL; Hematocrit 41.2 % (37-47); Hemoglobin 13.3 g/dL (12.0-15.0); Lymphocyte # 1.29 X10^3/ul (0.83-4.51); Lymphocyte % 23.9 % (19-41); Mean Corp Hgb Conc 32.3 g/dL (32-36); Mean Corpuscular Hgb 30.5 pg (27.0-32.0); Mean Corpuscular Volume 94.5 fL (81-99); Mean Platelet Vol. 11.1 fl (6.2-12.0); Monocyte# 0.47 X10^3/uL; Monocyte% 8.7 % (0-10); NRBC Flagged by Analyzer 0 % (0-5); Neutrophil # 3.48 X10^3/uL (2.7-7.7); Neutrophil % 64.4 % (47-70); Platelet Count 309 K/mm3 (150-450); RBC Distribution Width CV 13.8 % (11.6-14.6); RBC Distribution Width SD 48.4 fl (35.1-43.9); Red Blood Count 4.36 M/mm3 (4.2-5.4); White Blood Count 5.4 K/mm3 (4.4-11.0)
[2022-10-24 07:49] LABS: PTHIN 90.5 pg/mL (18.4-80.1)
== END | disposition home or self-care (01) ==
PROVIDERS: PCP Family Medicine; Referring Provider Family Medicine; Visit Provider Family Medicine
DX: E78.5 Hyperlipidemia, unspecified (principal); N18.30 Chronic kidney disease, stage 3 unspecified; E55.9 Vitamin D deficiency, unspecified
CPT/HCPCS: 36415; 80053; 80061; 81001; 82306; 82570; 83970; 84100; 84156; 85025

== ENCOUNTER → 2022-12-11 | Outpatient (CLI) | payer MEDICARE, OTHER, SELFPAY ==
--- NOTE | 2022-12-11 11:02 | BI_ITS ---
MAMMOGRAPHY - BILATERAL SCREENING REASON FOR EXAM: Female, 72 years old. Routine annual screening examination. PERTINENT HISTORY: Personal history of breast cancer. Prior right lumpectomy with radiation and chemotherapy. TECHNIQUE: Digital bilateral breast lebron (3D mammographic acquisition) in the CC and MLO projections. 2-D mediolateral oblique (MLO) and craniocaudad (CC) views of both breasts were obtained. CAD: Full Field Digital Mammography with Computer Added Detection was performed. COMPARISON: Comparison is made with prior study of December 06, 2021 and December 05, 2020. FINDINGS: Breast Composition: The breasts are heterogeneously dense, which may obscure small masses. There are no dominant masses or suspicious calcifications. The patient is status post lumpectomy in the deep upper medial aspect of the right breast. Stable postoperative scarring is seen. Surgical clips are also seen in the right axillary region. No other significant abnormalities are identified. There has been no significant change since the prior study. BI/SCRN MAMM (CAD)W/LEBRON BILAT IMPRESSION: Stable bilateral screening mammogram. Yearly follow-up mammogram recommended. (A) ASSESSMENT CATEGORY: BIRADS Category 2: Benign. A letter regarding these results will be sent to the patient by the facility within 30 days. Approximately 10% of breast cancers are not detected by mammography. A normal mammogram should not delay biopsy of a clinically suspicious abnormality. [id number] Electronically Signed: Miguel Barrios MD at 12:35 EDT ,
--- NOTE | 2022-12-11 11:06 | BD_ITS ---
STUDY: DUAL ENERGY X-RAY ABSORPTIOMETRY / DXA REASON FOR EXAM: Female, 72 years old. Osteopenia TECHNIQUE: Bone Mineral Density (BMD) measurements of lumbar spine and bilateral hips were obtained. COMPARISON: Comparison is made with prior study December 05, 2020. FINDINGS: Lumbar Spine (L1-L4): g/cm2 (0.790) / T-score (-2.3) / Z-score (-0.1) Findings are suggestive of osteopenia with a high fracture risk. Left Femur Total: g/cm2 (0.693) / T-score (-2.0) / Z-score (-0.4) Left Femoral Neck: g/cm2 (0.623) / T-score (-2.0) / Z-score (-0.1) Right Femur Total: g/cm2 (0.726) / T-score (-1.8) / Z-score (-0.1) Right Femoral Neck: g/cm2 (0.732) / T-score (-1.1) / Z-score (0.9) The T-Scores on the most recent prior examination were: Lumbar Spine (L1-L4): There has been worsening of bone density since the previous examination. Left Femur Total: which represents a worsening of 5.2%. Right Femur Total: which represents an improvement of 5.4%. BD/Dexa Bone Density Study IMPRESSION: The patient is considered osteopenic as outlined below according to World Az Organization (WHO) criteria with a high fracture risk. There has been worsening of bone density since the previous examination. Reference Information: The T-score is the number of standard deviations above or below the standard which is normal for young adults at their peak bone mineral density. The World Health Organization (WHO) interprets the T-scores as follows: Above -1 Normal bone density Between -1 and -2.5 Osteopenia Equal to / or below -2.5 Osteoporosis As a practical clinical guideline, osteopenia may be graded as follows: Mild -1 through -1.5 Moderate -1.6 through -2.0 Severe -2.1 through -2.4 The Z-score is the number of standard deviations above or below age-matched controls. A Z-score of less than -1.5 would be considered abnormal. References: 1. NIH Osteoporosis and Related Bone Diseases www osteo.org 2. International Society for Clinical Densitometry www iscd.org 3. National Osteoporosis Foundation www nof.org Electronically Signed: Miguel Barrios MD at 13:40 EDT ,
== END | disposition home or self-care (01) ==
LOC: OPBI 10:59
PROVIDERS: PCP Family Medicine; Referring Provider Internal Medicine Medical Oncology; Visit Provider Internal Medicine Medical Oncology
DX: Z12.31 Encounter for screening mammogram for malignant neoplasm of breast (principal); Z85.3 Personal history of malignant neoplasm of breast; Z13.820 Encounter for screening for osteoporosis; M81.0 Age-related osteoporosis without current pathological fracture
CPT/HCPCS: 77063; 77067; 77080

== ENCOUNTER → 2023-02-17 | Outpatient (CLI) | payer MEDICARE, OTHER, SELFPAY ==
[2023-02-17 11:10] LABS: Bacteria 0 SEEN /hpf (None Seen); Mucous, Urine 0 SEEN /hpf (<or=2+)
[2023-02-17 12:08] LABS: Absolute Lymphocyte Count 1.12 X10^3/uL (0.83-4.51); Absolute Neutrophil Count 1.6 X10^3/uL (2.0-7.7); Basophil# 0.03 X10^3/uL; Basophil% 0.9 % (0-1); Eosinophil# 0.14 X10^3/uL; Eosinophils% 4.2 % (0-5); Hematocrit 40.2 % (37-47); Hemoglobin 12.5 g/dL (12.0-15.0); Lymphocyte # 1.12 X10^3/ul (0.83-4.51); Lymphocyte % 33.7 % (19-41); Mean Corp Hgb Conc 31.1 g/dL (32-36); Mean Corpuscular Hgb 29.2 pg (27.0-32.0); Mean Corpuscular Volume 93.9 fL (81-99); Monocyte# 0.47 X10^3/uL; Monocyte% 14.2 % (0-10); NRBC Flagged by Analyzer 0 % (0-5); Neutrophil # 1.55 X10^3/uL (2.7-7.7); Neutrophil % 46.7 % (47-70); Platelet Count 260 K/mm3 (150-450); RBC Distribution Width CV 13.9 % (11.6-14.6); RBC Distribution Width SD 47.7 fl (35.1-43.9); Red Blood Count 4.28 M/mm3 (4.2-5.4); White Blood Count 3.3 K/mm3 (4.4-11.0)
[2023-02-17 12:21] LABS: Vitamin D,25 Hydroxy 51.1 ng/mL
[2023-02-17 12:22] LABS: AST(SGOT) 19 U/L (15-37); Alanine Aminotransfer ALT/SGPT 28 U/L (13-56); Albumin, Serum 3.4 g/dL (3.2-5.0); Alkaline Phosphatase 97 U/L (45-117); Anion Gap 6 (5-15); BUN 24 mg/dL (7-18); BUN/Creat Ratio 26.3 RATIO (10-20); Calcium,Total 8.9 mg/dL (8.5-10.1); Chloride 103 mmol/L (98-107); Cholesterol 183 mg/dL (200); Creatinine, Serum 0.91 mg/dL (0.55-1.02); EST Glomerular Filtration Rate 64 mL/min (>60); Est Glom Filt Rate - Afr Amer 78 mL/min (>60); Globulin 3.3 g/dL (2.2-4.2); Glucose 86 mg/dL (74-106); High Density Lipoprotein 92 mg/dL; Phosphorus 3.4 mg/dL (2.5-4.9); Potassium 3.7 mmol/L (3.5-5.1); Protein, Total 6.7 g/dL (6.4-8.2); Sodium Level 136 mmol/L (136-145); Triglycerides 64 mg/dL; Very Low Density Lipoprotein 13 mg/dL (5-40)
[2023-02-17 13:00] LABS: PTHIN 84.1 pg/mL (18.4-80.1)
[2023-02-17 13:32] LABS: Protein, Urine (Random) 19.1 mg/dL (<11.9); Protein:Creat Ratio 98 mg/g CRE (0-200)
[2023-02-17 13:36] LABS: Color, Urine Yellow (Yellow); Glucose, Dipstick Normal (Normal); Ketone-Dipstick Negative (Negative); Leukocyte Esterase-Dipstick 25 /ul (Negative); Nitrite-Dipstick Negative (Negative); Occult Blood-Urine Negative /ul (Negative); Protein-Dipstick 30 mg/dl (Negative); Urine Bilirubin Dipstick Negative (Negative); Urine Clarity Clear (Clear); Urine Urobilinogen Normal (Normal); Urine pH 6.5 (5.0 - 8.0)
[2023-02-17 13:48] LABS: Hyaline Cast 0-5 SEEN /lpf (0-5); Red Blood Cells-Urine 0 SEEN /hpf (0-5); Squamous Epithelial Cells - UA 0-5 SEEN /hpf (5-10); White Blood Cells 0-5 SEEN /hpf (0-5)
== END | disposition home or self-care (01) ==
PROVIDERS: PCP Family Medicine; Referring Provider Family Medicine; Visit Provider Family Medicine
DX: N18.30 Chronic kidney disease, stage 3 unspecified (principal); E55.9 Vitamin D deficiency, unspecified; E78.5 Hyperlipidemia, unspecified
CPT/HCPCS: 36415; 80053; 80061; 81001; 82306; 82570; 83970; 84100; 84156; 85025

== ENCOUNTER → 2023-08-27 | Outpatient (CLI) | payer MEDICARE, OTHER, SELFPAY ==
[2023-08-27 13:39] LABS: Bacteria 0 SEEN /hpf (None Seen); Mucous, Urine 0 SEEN /hpf (<or=2+); Red Blood Cells-Urine 0 SEEN /hpf (0-5); Squamous Epithelial Cells - UA 0 SEEN /hpf (5-10); White Blood Cells 0 SEEN /hpf (0-5)
[2023-08-27 15:35] LABS: Color, Urine Yellow (Yellow); Glucose, Dipstick Normal (Normal); Ketone-Dipstick 5 mg/dl (Negative); Leukocyte Esterase-Dipstick 25 /ul (Negative); Nitrite-Dipstick Negative (Negative); Occult Blood-Urine Negative /ul (Negative); Protein-Dipstick 15 mg/dl (Negative); Urine Bilirubin Dipstick Negative (Negative); Urine Clarity Clear (Clear); Urine Urobilinogen Normal (Normal)
[2023-08-27 15:41] LABS: Absolute Neutrophil Count 2.9 X10^3/uL (2.0-7.7); Basophil# 0.05 X10^3/uL; Basophil% 1.1 % (0-1); Eosinophil# 0.12 X10^3/uL; Eosinophils% 2.6 % (0-5); Hematocrit 40.1 % (37-47); Hemoglobin 12.3 g/dL (12.0-15.0); Lymphocyte % 23.6 % (19-41); Mean Corp Hgb Conc 30.7 g/dL (32-36); Mean Corpuscular Hgb 28.3 pg (27.0-32.0); Mean Corpuscular Volume 92.2 fL (81-99); Mean Platelet Vol. 10.8 fl (6.2-12.0); Monocyte# 0.45 X10^3/uL; Monocyte% 9.7 % (0-10); NRBC Flagged by Analyzer 0 % (0-5); Neutrophil # 2.93 X10^3/uL (2.7-7.7); Neutrophil % 62.8 % (47-70); Platelet Count 305 K/mm3 (150-450); RBC Distribution Width CV 14.6 % (11.6-14.6); RBC Distribution Width SD 49.4 fl (35.1-43.9); Red Blood Count 4.35 M/mm3 (4.2-5.4); White Blood Count 4.7 K/mm3 (4.4-11.0)
[2023-08-27 15:49] LABS: Protein, Urine (Random) 22.1 mg/dL (<11.9); Protein:Creat Ratio 148 mg/g CRE (0-200)
[2023-08-27 16:06] LABS: ALB/GLOB Ratio 1.1 RATIO (0.9-2.4); AST(SGOT) 19 U/L (15-37); Alanine Aminotransfer ALT/SGPT 23 U/L (13-56); Albumin, Serum 3.6 g/dL (3.2-5.0); Alkaline Phosphatase 96 U/L (45-117); Anion Gap 4 (5-15); BUN 26 mg/dL (7-18); BUN/Creat Ratio 26.8 RATIO (10-20); Calcium,Total 9.6 mg/dL (8.5-10.1); Chloride 106 mmol/L (98-107); Cholesterol 187 mg/dL (200); Creatinine, Serum 0.97 mg/dL (0.55-1.02); EST Glomerular Filtration Rate 60 mL/min (>60); Est Glom Filt Rate - Afr Amer 72 mL/min (>60); Globulin 3.3 g/dL (2.2-4.2); Glucose 76 mg/dL (74-106); High Density Lipoprotein 110 mg/dL; Phosphorus 3.5 mg/dL (2.5-4.9); Potassium 4.4 mmol/L (3.5-5.1); Protein, Total 6.9 g/dL (6.4-8.2); Sodium Level 140 mmol/L (136-145); Triglycerides 53 mg/dL; Very Low Density Lipoprotein 11 mg/dL (5-40)
[2023-08-27 16:07] LABS: Vitamin D,25 Hydroxy 49.4 ng/mL
[2023-08-28 08:16] LABS: PTHIN 75.3 pg/mL (18.4-80.1)
== END | disposition home or self-care (01) ==
LOC: MFPLAB 13:35
PROVIDERS: PCP Family Medicine; Visit Provider Family Medicine
DX: M85.80 Other specified disorders of bone density and structure, unspecified site (principal); N18.30 Chronic kidney disease, stage 3 unspecified; E78.5 Hyperlipidemia, unspecified
CPT/HCPCS: 36415; 80053; 80061; 81001; 82306; 82570; 83970; 84100; 84156; 85025

== ENCOUNTER → 2023-12-15 | Outpatient (CLI) | payer MEDICARE, OTHER, SELFPAY ==
--- NOTE | 2023-12-15 09:18 | BI_ITS ---
MAMMOGRAPHY - BILATERAL SCREENING REASON FOR EXAM: Female, 73 years old. Routine annual screening examination. PERTINENT HISTORY: Personal history of breast cancer. Prior right lumpectomy with radiation and chemotherapy. TECHNIQUE: Digital bilateral breast lebron (3D mammographic acquisition) in the CC and MLO projections. 2-D mediolateral oblique (MLO) and craniocaudad (CC) views of both breasts were obtained. CAD: Full Field Digital Mammography with Computer Added Detection was performed. COMPARISON: Comparison is made with prior study December 11, 2022 and December 06, 2021. FINDINGS: Breast Composition: The breasts are heterogeneously dense, which may obscure small masses. There are no dominant masses or suspicious calcifications. The patient is status post lumpectomy in the deep upper medial aspect of the right breast. Stable postsurgical architectural distortion and scarring is seen. Surgical clips are seen in the right axilla. No other significant abnormalities are identified. There has been no significant change since the prior study. BI/SCRN MAMM (CAD)W/LEBRON BILAT IMPRESSION: Stable bilateral screening mammogram. Yearly follow-up mammogram recommended. (A) ASSESSMENT CATEGORY: BIRADS Category 2: Benign. A letter regarding these results will be sent to the patient by the facility within 30 days. Approximately 10% of breast cancers are not detected by mammography. A normal mammogram should not delay biopsy of a clinically suspicious abnormality. [id number] Electronically Signed: Miguel Barrios MD at 10:20 EDT ,
== END | disposition home or self-care (01) ==
LOC: OPBI 09:18
PROVIDERS: PCP Family Medicine; Referring Provider Internal Medicine Medical Oncology; Visit Provider Internal Medicine Medical Oncology
DX: Z12.31 Encounter for screening mammogram for malignant neoplasm of breast (principal); Z85.3 Personal history of malignant neoplasm of breast
CPT/HCPCS: 77063; 77067

== ENCOUNTER → 2024-02-25 | Outpatient (CLI) | payer MEDICARE, OTHER, SELFPAY ==
[2024-02-25 14:03] LABS: Mucous, Urine 0 SEEN /hpf (<or=2+)
[2024-02-25 15:24] LABS: Absolute Lymphocyte Count 1.24 X10^3/uL (0.83-4.51); Absolute Neutrophil Count 2.1 X10^3/uL (2.0-7.7); Basophil# 0.04 X10^3/uL; Eosinophil# 0.14 X10^3/uL; Eosinophils% 3.5 % (0-5); Hematocrit 41.6 % (37-47); Lymphocyte # 1.24 X10^3/ul (0.83-4.51); Lymphocyte % 31.1 % (19-41); Mean Corp Hgb Conc 31.3 g/dL (32-36); Mean Corpuscular Hgb 27.6 pg (27.0-32.0); Mean Corpuscular Volume 88.3 fL (81-99); Mean Platelet Vol. 10.5 fl (6.2-12.0); Monocyte# 0.43 X10^3/uL; Monocyte% 10.8 % (0-10); NRBC Flagged by Analyzer 0 % (0-5); Neutrophil # 2.13 X10^3/uL (2.7-7.7); Neutrophil % 53.3 % (47-70); Platelet Count 304 K/mm3 (150-450); RBC Distribution Width CV 14.7 % (11.6-14.6); RBC Distribution Width SD 47.5 fl (35.1-43.9); Red Blood Count 4.71 M/mm3 (4.2-5.4)
[2024-02-25 15:36] LABS: Color, Urine Yellow (Yellow); Glucose, Dipstick Normal (Normal); Ketone-Dipstick Negative (Negative); Leukocyte Esterase-Dipstick 25 /ul (Negative); Nitrite-Dipstick Negative (Negative); Occult Blood-Urine Negative /ul (Negative); Protein-Dipstick 15 mg/dl (Negative); Specific Gravity, Urine 1.015 (1.002-1.030); Urine Bilirubin Dipstick Negative (Negative); Urine Clarity Clear (Clear); Urine Urobilinogen Normal (Normal)
[2024-02-25 15:50] LABS: Protein, Urine (Random) 21.4 mg/dL (<11.9); Protein:Creat Ratio 114 mg/g CRE (0-200)
[2024-02-25 16:15] LABS: Bacteria 3+ /hpf (None Seen); Red Blood Cells-Urine 0-5 SEEN /hpf (0-5); Squamous Epithelial Cells - UA 0-5 SEEN /hpf (5-10); White Blood Cells 0-5 SEEN /hpf (0-5)
[2024-02-25 17:49] LABS: ALB/GLOB Ratio 1.1 RATIO (0.9-2.4); AST(SGOT) 28 U/L (15-37); Alanine Aminotransfer ALT/SGPT 28 U/L (13-56); Albumin, Serum 3.9 g/dL (3.2-5.0); Alkaline Phosphatase 89 U/L (45-117); Anion Gap 7 (5-15); BUN 20 mg/dL (7-18); Calcium,Total 9.8 mg/dL (8.5-10.1); Chloride 104 mmol/L (98-107); Cholesterol 213 mg/dL (200); Creatinine, Serum 1.05 mg/dL (0.55-1.02); EST Glomerular Filtration Rate 55 mL/min (>60); Est Glom Filt Rate - Afr Amer 66 mL/min (>60); Globulin 3.4 g/dL (2.2-4.2); Glucose 86 mg/dL (74-106); High Density Lipoprotein 125 mg/dL; Phosphorus 3.3 mg/dL (2.5-4.9); Potassium 4.1 mmol/L (3.5-5.1); Protein, Total 7.3 g/dL (6.4-8.2); Sodium Level 138 mmol/L (136-145); Triglycerides 55 mg/dL; Very Low Density Lipoprotein 11 mg/dL (5-40)
[2024-02-26 12:41] LABS: PTHIN 59.3 pg/mL (18.4-80.1)
[2024-02-26 15:24] LABS: Vitamin B12 331 pg/mL (211-911); Vitamin D,25 Hydroxy 35.4 ng/mL
[2024-03-03 11:10] LABS: VITAMIN B6 6.8 ug/L (3.4-65.2); Vitamin B1, Thiamine 90.5 nmol/L (66.5-200.0)
== END | disposition home or self-care (01) ==
LOC: MFPLAB 13:51
PROVIDERS: PCP Family Medicine; Visit Provider Family Medicine
DX: M85.80 Other specified disorders of bone density and structure, unspecified site (principal); N18.30 Chronic kidney disease, stage 3 unspecified; E78.5 Hyperlipidemia, unspecified; G62.9 Polyneuropathy, unspecified
CPT/HCPCS: 36415; 80053; 80061; 81001; 82306; 82570; 82607; 83970; 84100; 84156; 84207; 84425; 85025

== ENCOUNTER → 2024-03-30 | Outpatient (CLI) | payer MEDICARE, OTHER, SELFPAY ==
[2024-03-30 17:42] LABS: Absolute Lymphocyte Count 1.44 X10^3/uL (0.83-4.51); Absolute Neutrophil Count 2.2 X10^3/uL (2.0-7.7); Basophil# 0.05 X10^3/uL; Basophil% 1.2 % (0-1); Eosinophil# 0.14 X10^3/uL; Eosinophils% 3.3 % (0-5); Hematocrit 40.5 % (37-47); Hemoglobin 12.2 g/dL (12.0-15.0); Lymphocyte # 1.44 X10^3/ul (0.83-4.51); Lymphocyte % 33.6 % (19-41); Mean Corp Hgb Conc 30.1 g/dL (32-36); Mean Corpuscular Hgb 27.1 pg (27.0-32.0); Mean Corpuscular Volume 89.8 fL (81-99); Mean Platelet Vol. 10.2 fl (6.2-12.0); Monocyte# 0.45 X10^3/uL; Monocyte% 10.5 % (0-10); NRBC Flagged by Analyzer 0 % (0-5); Neutrophil % 51.2 % (47-70); Platelet Count 298 K/mm3 (150-450); RBC Distribution Width CV 15.5 % (11.6-14.6); RBC Distribution Width SD 51.1 fl (35.1-43.9); Red Blood Count 4.51 M/mm3 (4.2-5.4); White Blood Count 4.3 K/mm3 (4.4-11.0)
[2024-03-30 17:57] LABS: ALB/GLOB Ratio 1.1 RATIO (0.9-2.4); AST(SGOT) 24 U/L (15-37); Alanine Aminotransfer ALT/SGPT 28 U/L (13-56); Albumin, Serum 3.8 g/dL (3.2-5.0); Alkaline Phosphatase 82 U/L (45-117); Anion Gap 7 (5-15); BUN 20 mg/dL (7-18); BUN/Creat Ratio 21.2 RATIO (10-20); Calcium,Total 9.9 mg/dL (8.5-10.1); Chloride 103 mmol/L (98-107); Creatinine, Serum 0.94 mg/dL (0.55-1.02); EST Glomerular Filtration Rate 62 mL/min (>60); Est Glom Filt Rate - Afr Amer 75 mL/min (>60); Globulin 3.4 g/dL (2.2-4.2); Glucose 91 mg/dL (74-106); Lipase 35 U/L (13-75); Potassium 3.9 mmol/L (3.5-5.1); Protein, Total 7.2 g/dL (6.4-8.2); Sodium Level 139 mmol/L (136-145)
== END | disposition home or self-care (01) ==
LOC: MFPLAB 14:44
PROVIDERS: PCP Family Medicine; Visit Provider Nurse Practitioner Family
DX: R10.9 Unspecified abdominal pain (principal)
CPT/HCPCS: 36415; 80053; 83690; 85025

== ENCOUNTER → 2024-04-16 | Outpatient (CLI) | payer MEDICARE, OTHER, SELFPAY ==
--- NOTE | 2024-04-16 15:27 | CT_ITS ---
INDICATION: ABD PAIN EXAMINATION: CT Abdomen And Pelvis W/ Contrast Injection TECHNIQUE: Helically acquired images were obtained of the abdomen and pelvis after IV contrast. A radiation dose optimization technique was used for this scan. IV Contrast dosage and agent: IV 70mL Isovue-370 Oral contrast: None. COMPARISON: None. FINDINGS: Visualized lung bases: Unremarkable Liver: Unremarkable Gallbladder: Unremarkable Spleen: Unremarkable Pancreas: Unremarkable Adrenal Glands: Unremarkable Kidneys: Mild bilateral hydroureteronephrosis with no obstructing stone or mass seen. Vasculature: Unremarkable GI Tract: Unremarkable Lymphadenopathy: None Peritoneum: No ascites. Bladder: Mild circumferential wall thickening with subtle surrounding inflammatory changes. Reproductive organs: Unremarkable Bones/Soft tissues: There are diffuse degenerative changes of the spine. CT/Abdomen/Pelvis WITH Contrast IMPRESSION: Findings suspicious for cystitis, likely the cause of bilateral hydroureteronephrosis. Electronically Signed: Carlos Alberto Dias MD at 19:05 EDT ,
== END | disposition home or self-care (01) ==
LOC: CT 15:23
PROVIDERS: PCP Family Medicine; Referring Provider Family Medicine; Visit Provider Family Medicine
DX: R10.9 Unspecified abdominal pain (principal)
CPT/HCPCS: 74177; Q9967

== ENCOUNTER 2024-04-30 12:56 | Emergency (ER) | payer MEDICARE, OTHER, SELFPAY ==
[2024-04-30 12:57] VITALS: BP 161/108; PULSE 109; RESP 16; TEMP 36.6; TEMP 36.7; O2SAT 99; BMI 26.3
[2024-04-30 14:29] VITALS: BP 107/78; PULSE 77; RESP 14; TEMP 36.6; O2SAT 97
--- NOTE | 2024-04-30 14:32 | EKG12_ITS ---
Test Reason : ABNORMAL LABS Blood Pressure : / mmHG Vent. Rate : 072 BPM Atrial Rate : 000 BPM P-R Int : 000 ms QRS Dur : 056 ms QT Int : 394 ms P-R-T Axes : 000 034 051 degrees QTc Int : 431 ms Atrial fibrillation with a competing junctional pacemaker Abnormal ECG Confirmed by DANNY ROCHA, ISAIAS ([id number]), newspaper photo editor DORI ZHAO ([id number]) on 05/03/2024 6:47:19 AM Referred By: Confirmed By:ISAIAS DELGADO MD
--- NOTE | 2024-04-30 14:33 | EX.ED.DYSGE1 ---
HPI History of Present Illness Chief Complaint: Abn Labs Narrative Narrative: 74-year-old female past medical history of depression, hypertension, GERD, relates history that she has had diarrhea and abdominal pain for at least a month. She has had decreased appetite as well. She saw her primary care provider 2 weeks ago where she had CT performed that showed inflammation around both kidneys. She denies any dysuria, fever, chills, or other symptoms. She states they put her on Bactrim for a week which she completed, was asymptomatic with this stranding that was found around her kidneys. She has been on the brat diet, continues to have loose stool and decreased appetite associated with nausea. She has diffuse abdominal pain as well on occasion. She followed up with her primary care provider who did laboratory work today, and she was told to come to the emergency department because she had elevated lactic acid. She complains of the same symptoms that she has had for the past month. [facility] Medical History External nasal lesion Screening for osteoporosis Depression Cancer Wears glasses Cancer Depression Anxiety Ambulates with cane High cholesterol Easy bruising History of renal disease Non-smoker History of pain when walking Hx of mitral valve prolapse History of stress test Premature atrial complex Mitral valve prolapse Hay fever Kidney disease Breast cancer Herniation of lumbar intervertebral disc Arthritis Nephrolithiasis Osteopenia Hypertension Heart disease GERD (gastroesophageal reflux disease) Anxiety Home Medications ?Medication ?Instructions ?Recorded ?Last Taken ?Type duloxetine 60 mg capsule,delayed 90 mg PO DAILY Antidepressant 09/09/20 Unknown History release omeprazole 40 mg-sodium 40 each PO DAILY 12/13/20 04/16/21 History bicarbonate 1.1 gram capsule rosuvastatin 10 mg tablet 10 mg PO QHS 04/10/21 Unknown History polyethylene glycol 3350 17 gram 17 g PO DAILY 12/22/23 Unknown History oral powder packet (Miralax) azithromycin 250 mg tablet 250 mg PO QDAY #6 tabs 02/16/24 Unknown Rx calcium citrate 200 mg (950 mg) 200 mg PO DAILY 02/16/24 Unknown History tablet fexofenadine 60 mg tablet (Jessica 60 mg PO BID PRN 02/16/24 Unknown History Allergy) sulfamethoxazole 800 1 tab PO BID #14 tabs 04/30/24 Unknown Rx mg-trimethoprim 160 mg tablet (Bactrim DS) Allergy/AdvReac Type Severity Reaction Status Date / Time Penicillins (PCN) Allergy Unknown Verified 04/30/24 12:57 amoxicillin trihydrate (From AdvReac Rash Verified 04/30/24 12:57 Amoxil) ciprofloxacin (From Cipro) AdvReac Nausea Verified 04/30/24 12:57 ciprofloxacin HCl (From AdvReac Nausea Verified 04/30/24 12:57 Cipro) Family History Mother Multiple myeloma Thyroid disorder Hypertension Hyperlipidemia Heart disease Diabetes Father Diabetes Surgical History History of esophagogastroduodenoscopy (EGD) History of discectomy History of laminectomy History of lithotripsy History of dilation and curettage History of tonsillectomy History of lumpectomy of right breast History of hysterectomy History of appendectomy Social History Smoking Status: Never smoker ROS ROS ED ROS Narrative Constitutional: No fever, no chills. Decreased appetite. HEENT: No sore throat. No neck pain. No loss of vision. No rhinorrhea. Cardiovascular: No chest pain. No palpitations. No pedal edema. Respiratory: No cough, no shortness of breath. Abdominal: Positive diffuse abdominal pain. Positive nausea. No vomiting. Positive loose stools x 1 month. Genitourinary: No dysuria. No hematuria. Musculoskeletal: No myalgias. No arthralgias. Neurologic: No headaches. No dizziness. No lightheadedness. Skin: No rash. No change in color. Psychiatric: No depression. No anxiety. EXAM Physical Exam Narrative Exam Narrative: Afebrile. Vital signs noted. HEENT: Normocephalic. Atraumatic. PERRL, EOMI. Neck soft and supple. No point tenderness or step off. Cardiovascular: Regular rate and rhythm. No murmurs, rubs, or gallops appreciated. Respiratory: No tachypnea. Lungs clear to auscultation bilaterally. Gastrointestinal: Abdomen soft, nontender, with normoactive bowel sounds. No rebound or guarding. Neurological: Awake. Alert. Nonfocal, nonlateralizing. Skin: No rash. Normal color. No pallor. Musculoskeletal: No pedal edema. Full range of motion extremities. Const Vital Signs: 04/30/24 12:57 04/30/24 12:57 04/30/24 14:29 Temperature 98.0 F 98 F 98 F Temperature Source Temporal Temporal Temporal Pulse Rate 109 H 109 H 77 Respiratory Rate 16 16 14 Respiratory Effort Respiratory Pattern Blood Pressure 161/108 H 161/108 H 107/78 Blood Pressure Mean 125 125 87 Pulse Ox 99 99 97 Oxygen Delivery Method Room Air Room Air Room Air 04/30/24 14:30 04/30/24 15:00 04/30/24 16:00 Temperature 98.6 F 98.2 F Temperature Source Temporal Temporal Pulse Rate 65 63 Respiratory Rate 16 12 Respiratory Effort Normal Respiratory Pattern Normal Blood Pressure 173/71 H 163/84 H Blood Pressure Mean 105 110 Pulse Ox 96 96 Oxygen Delivery Method Room Air Room Air 04/30/24 16:50 Temperature Temperature Source Pulse Rate 66 Respiratory Rate 19 H Respiratory Effort Respiratory Pattern Blood Pressure 152/76 H Blood Pressure Mean 101 Pulse Ox 97 Oxygen Delivery Method Room Air MDM MDM MDM Narrative Medical decision making narrative: I reviewed the patient's laboratory work. Differential diagnosis includes but not limited to lactic acidosis secondary to dehydration versus sepsis versus SIRS. She may have a urinary tract infection that has can continued but she has been on Bactrim for the week. I have lower suspicion for ischemic bowel as she does not have pain out of proportion. She will be bolused normal saline 1 L intravenously and laboratory work repeated. I do feel that she needs a CT of the abdomen pelvis that is repeated to make sure that there has been no perinephric abscess development or to see if the stranding has improved. I reviewed her laboratory work and she has chronic neutropenia with a WBC count of 4.1, hemoglobin 13.5, hematocrit 43.3. Sodium normal at 137, potassium normal 3.9, BUN of 20 and creatinine 0.99, glucose appropriate at 90 with normal anion gap of 6. I reviewed her prior laboratory work from today and she had elevated lactic acid above 2, however on repeat it is normal at 1.0. I doubt sepsis. Lipase is normal at 46. While urinalysis shows 0-5 WBCs, it is positive for calcium oxalate, and also for bacteria, 1+. This will be sent for culture. She was started on Bactrim because of the CT results. I reviewed the radiology report which comments on thickening of the bladder wall consistent with cystitis with minimal stranding, but once again causing bilateral hydronephrosis. She was written a prescription for Bactrim as she has multiple allergies to amoxicillin, ciprofloxacin, and penicillins. I feel that she probably requires follow-up with a urologist so she was referred to Dr. Irina Lake. She will also follow-up with her primary care provider. Return instructions to the emergency department were reviewed. I do not feel that she meets any observation or admission criteria. Disposition is discharged home in stable condition. History & Record Review Discussion w/independent historian: Patient and Family Lab Data Attestation: I reviewed the patient's lab results. Labs: Laboratory Results - last 24 hr 04/30/24 04/30/24 15:25 16:05 WBC 4.1 L RBC 4.94 Hgb 13.5 Hct 43.3 MCV 87.7 MCH 27.3 MCHC 31.2 L RDW Std Deviation 50.4 H RDW Coeff of Sarah 15.8 H Plt Count 294 MPV 10.0 Immature Gran % (Auto) 0.200 Neut % (Auto) 57.7 Lymph % (Auto) 28.0 [place] % (Auto) 10.9 H Eos % (Auto) 2.2 Baso % (Auto) 1.0 Absolute Neuts (auto) 2.4 Absolute Lymphs (auto) 1.16 Nucleated RBC % 0 Sodium 137 Potassium 3.9 Chloride 101 Carbon Dioxide 30.0 Anion Gap 6 BUN 20 H Creatinine 0.99 Estim Creat Clear Calc 51.28 Est GFR (MDRD) Af Amer 71 Est GFR (MDRD) Non-Af 59 L BUN/Creatinine Ratio 20.3 H Glucose 90 Lactic Acid 1.0 Calcium 10.5 H Total Bilirubin 0.40 AST 16 ALT 25 Alkaline Phosphatase 96 Total Protein 7.8 Albumin 4.2 Globulin 3.6 Albumin/Globulin Ratio 1.2 Lipase 46 Urine Color Yellow Urine Clarity Clear Urine pH 8.0 Ur Specific [place] 1.010 Urine Protein Negative Urine Glucose (UA) Normal Urine Ketones Negative Urine Occult Blood Negative Urine Nitrite Negative Urine Bilirubin Negative Urine Urobilinogen Normal Ur Leukocyte Esterase 25 H Urine RBC 0 SEEN Urine WBC 0-5 SEEN Ur Squamous Epith Cells 0-5 SEEN Calcium Oxalate Crystal 1+ Amorphous Sediment 1+ Urine Bacteria 1+ Urine Mucus 1+ Radiography Diagnostic Testing: Clinical Impression(s) from Imaging Studies Abdomen/Pelvis CT 04/30/24 16:07 IMPRESSION: Findings suspicious for cystitis, likely the cause of bilateral hydroureteronephrosis, similar in appearance since prior on 04/16/2024. Electronically Signed: Carlos Alberto Dias MD at 16:58 EDT , Discharge Plan Triage Chief Complaint: Abn Labs ED Provider: Tomas Nguyen Dx/Rx/DC Orders Clinical Impression: Cystitis, Diarrhea, Abdominal pain Instructions: ED Abdominal Pain Unkn Cause Fem, ED Diarrhea, Unknown Cause, ED Cystitis Female Adult Prescriptions: New sulfamethoxazole-trimethoprim [Bactrim DS] 800-160 mg tablet 1 tab PO BID Qty: 14 0RF No Action rosuvastatin 10 mg tablet 10 mg PO QHS polyethylene glycol 3350 [Miralax] 17 gram powder in packet 17 g PO DAILY fexofenadine [Jessica Allergy] 60 mg tablet 60 mg PO BID PRN calcium citrate 200 mg (950 mg) tablet 200 mg PO DAILY azithromycin 250 mg tablet 250 mg PO QDAY Qty: 6 0RF Rx Instructions: 2 tablets today, then 1 tablet daily on days 2 through 5 omeprazole-sodium bicarbonate 1 EACH capsule 40 each PO DAILY duloxetine 60 MG capsule 90 mg PO DAILY Primary Care Provider: Maurilio Castillo Referrals: Irina Lake MD [Med Staff - Active Staff] - 3-5 Days Maurilio Castillo MD [Primary Care Provider] - 3-5 Days if not improving Activity Restrictions/Additional Instructions: Return with increased pain, new or worsening symptoms. Take all the antibiotics as directed. Follow-up with urology as well as your primary care provider. Print Language: Gambian Disposition Disposition: Home, Self Care
[2024-04-30 15:00] VITALS: BP 173/71; PULSE 65; RESP 16; TEMP 37; O2SAT 96
[2024-04-30 15:33] LABS: Absolute Lymphocyte Count 1.16 X10^3/uL (0.83-4.51); Absolute Neutrophil Count 2.4 X10^3/uL (2.0-7.7); Basophil# 0.04 X10^3/uL; Eosinophil# 0.09 X10^3/uL; Eosinophils% 2.2 % (0-5); Hematocrit 43.3 % (37-47); Hemoglobin 13.5 g/dL (12.0-15.0); Lymphocyte # 1.16 X10^3/ul (0.83-4.51); Mean Corp Hgb Conc 31.2 g/dL (32-36); Mean Corpuscular Hgb 27.3 pg (27.0-32.0); Mean Corpuscular Volume 87.7 fL (81-99); Monocyte# 0.45 X10^3/uL; Monocyte% 10.9 % (0-10); NRBC Flagged by Analyzer 0 % (0-5); Neutrophil # 2.39 X10^3/uL (2.7-7.7); Neutrophil % 57.7 % (47-70); Platelet Count 294 K/mm3 (150-450); RBC Distribution Width CV 15.8 % (11.6-14.6); RBC Distribution Width SD 50.4 fl (35.1-43.9); Red Blood Count 4.94 M/mm3 (4.2-5.4); White Blood Count 4.1 K/mm3 (4.4-11.0)
[2024-04-30] MEDS: 0.9% Normal Saline (1000mL) 1,000 ML 999 ML IV (15:33)
[2024-04-30 15:55] LABS: ALB/GLOB Ratio 1.2 RATIO (0.9-2.4); AST(SGOT) 16 U/L (15-37); Alanine Aminotransfer ALT/SGPT 25 U/L (13-56); Albumin, Serum 4.2 g/dL (3.2-5.0); Alkaline Phosphatase 96 U/L (45-117); Anion Gap 6 (5-15); BUN 20 mg/dL (7-18); BUN/Creat Ratio 20.3 RATIO (10-20); Calcium,Total 10.5 mg/dL (8.5-10.1); Chloride 101 mmol/L (98-107); Creatinine, Serum 0.99 mg/dL (0.55-1.02); EST Glomerular Filtration Rate 59 mL/min (>60); Est Glom Filt Rate - Afr Amer 71 mL/min (>60); Estimated Creatinine Clearance 51.28 ml/min; Globulin 3.6 g/dL (2.2-4.2); Glucose 90 mg/dL (74-106); Lipase 46 U/L (13-75); Potassium 3.9 mmol/L (3.5-5.1); Protein, Total 7.8 g/dL (6.4-8.2); Sodium Level 137 mmol/L (136-145)
[2024-04-30 16:00] VITALS: BP 163/84; PULSE 63; RESP 12; TEMP 36.8; O2SAT 96
--- NOTE | 2024-04-30 16:07 | CT_ITS ---
INDICATION: Abdominal pain EXAMINATION: CT Abdomen And Pelvis W/ Contrast Injection TECHNIQUE: Helically acquired images were obtained of the abdomen and pelvis after IV contrast. A radiation dose optimization technique was used for this scan. IV Contrast dosage and agent: IV 75mL Isovue-370 Oral contrast: None. COMPARISON: 04/16/2024. FINDINGS: Visualized lung bases: Unremarkable Liver: Unremarkable Gallbladder: Unremarkable Spleen: Unremarkable Pancreas: Unremarkable Adrenal Glands: Unremarkable Kidneys: Mild bilateral hydroureteronephrosis. Vasculature: Unremarkable GI Tract: Unremarkable Lymphadenopathy: None Peritoneum: No ascites. Bladder: Mild circumferential wall thickening with subtle surrounding inflammatory changes. Reproductive organs: Unremarkable Bones/Soft tissues: There are diffuse degenerative changes of the spine. CT/Abdomen/Pelvis W IV Cont ONLY IMPRESSION: Findings suspicious for cystitis, likely the cause of bilateral hydroureteronephrosis, similar in appearance since prior on 04/16/2024. Electronically Signed: Carlos Alberto Dias MD at 16:58 EDT ,
[2024-04-30 16:08] LABS: Red Blood Cells-Urine 0 SEEN /hpf (0-5)
[2024-04-30 16:11] LABS: Color, Urine Yellow (Yellow); Glucose, Dipstick Normal (Normal); Ketone-Dipstick Negative (Negative); Leukocyte Esterase-Dipstick 25 /ul (Negative); Nitrite-Dipstick Negative (Negative); Occult Blood-Urine Negative /ul (Negative); Protein-Dipstick Negative (Negative); Urine Bilirubin Dipstick Negative (Negative); Urine Clarity Clear (Clear); Urine Urobilinogen Normal (Normal)
[2024-04-30 16:37] LABS: Amorphous Sediment 1+; Mucous, Urine 1+ /hpf (<or=2+); Squamous Epithelial Cells - UA 0-5 SEEN /hpf (5-10)
[2024-04-30 16:38] LABS: Bacteria 1+ /hpf (None Seen); Calcium Oxalate Crystals Ur 1+ /hpf (<or=2+); White Blood Cells 0-5 SEEN /hpf (0-5)
[2024-04-30 16:50] VITALS: BP 152/76; PULSE 66; RESP 19; O2SAT 97
[2024-04-30] MEDS: Smz/Tmp Ds Tablet 1 TABLET PO (17:58)
[2024-04-30 18:00] VITALS: BP 165/81; PULSE 70; RESP 20; TEMP 36.6; O2SAT 96
== END 2024-04-30 18:04 | disposition home or self-care (01) ==
PROVIDERS: Emergency Provider Emergency Medicine; PCP Family Medicine; Visit Provider Emergency Medicine
DX: R74.8 Abnormal levels of other serum enzymes (principal); R19.7 Diarrhea, unspecified; N30.90 Cystitis, unspecified without hematuria; E78.00 Pure hypercholesterolemia, unspecified; I10 Essential (primary) hypertension; F32.A Depression, unspecified; F41.9 Anxiety disorder, unspecified; K21.9 Gastro-esophageal reflux disease without esophagitis; Z79.899 Other long term (current) drug therapy; Z90.710 Acquired absence of both cervix and uterus; Z90.49 Acquired absence of other specified parts of digestive tract; R10.9 Unspecified abdominal pain
CPT/HCPCS: 36415; 74177; 80053; 81001; 83605; 83690; 85025; 87086; 93005; 96360; 99283; J7030; Q9967; A4216

== ENCOUNTER → 2024-04-30 | Outpatient (CLI) | payer MEDICARE, OTHER, SELFPAY ==
[2024-04-30 09:26] LABS: Absolute Lymphocyte Count 1.32 X10^3/uL (0.83-4.51); Absolute Neutrophil Count 1.8 X10^3/uL (2.0-7.7); Basophil# 0.04 X10^3/uL; Basophil% 1.1 % (0-1); Eosinophil# 0.19 X10^3/uL; Eosinophils% 5.2 % (0-5); Hematocrit 40.9 % (37-47); Hemoglobin 12.4 g/dL (12.0-15.0); Lymphocyte # 1.32 X10^3/ul (0.83-4.51); Lymphocyte % 36.3 % (19-41); Mean Corp Hgb Conc 30.3 g/dL (32-36); Mean Corpuscular Hgb 27.1 pg (27.0-32.0); Mean Corpuscular Volume 89.3 fL (81-99); Mean Platelet Vol. 9.7 fl (6.2-12.0); Monocyte# 0.26 X10^3/uL; Monocyte% 7.1 % (0-10); NRBC Flagged by Analyzer 0 % (0-5); Neutrophil # 1.81 X10^3/uL (2.7-7.7); Neutrophil % 49.8 % (47-70); Platelet Count 302 K/mm3 (150-450); RBC Distribution Width CV 15.9 % (11.6-14.6); RBC Distribution Width SD 51.5 fl (35.1-43.9); Red Blood Count 4.58 M/mm3 (4.2-5.4); White Blood Count 3.6 K/mm3 (4.4-11.0)
[2024-04-30 10:39] LABS: Lactic Acid 2.3 mmol/L (0.4-1.9)
[2024-04-30 10:46] LABS: ALB/GLOB Ratio 1.1 RATIO (0.9-2.4); AST(SGOT) 19 U/L (15-37); Alanine Aminotransfer ALT/SGPT 23 U/L (13-56); Albumin, Serum 3.8 g/dL (3.2-5.0); Alkaline Phosphatase 85 U/L (45-117); Anion Gap 7 (5-15); BUN 17 mg/dL (7-18); BUN/Creat Ratio 15.2 RATIO (10-20); Calcium,Total 10.1 mg/dL (8.5-10.1); Chloride 105 mmol/L (98-107); Creatinine, Serum 1.12 mg/dL (0.55-1.02); EST Glomerular Filtration Rate 51 mL/min (>60); Est Glom Filt Rate - Afr Amer 61 mL/min (>60); Globulin 3.4 g/dL (2.2-4.2); Glucose 124 mg/dL (74-106); Protein, Total 7.2 g/dL (6.4-8.2); Sodium Level 140 mmol/L (136-145)
[2024-04-30 12:59] LABS: Reflex Lactate? Y
== END | disposition home or self-care (01) ==
LOC: LAB 08:55
PROVIDERS: PCP Family Medicine; Referring Provider Family Medicine; Visit Provider Family Medicine
DX: R10.9 Unspecified abdominal pain (principal)
CPT/HCPCS: 36415; 80053; 83605; 85025

== ENCOUNTER 2024-07-12 07:51 | Day surgery (SDC) | payer MEDICARE, OTHER, SELFPAY ==
[2024-07-12] VITALS (7 sets, daily range): BP systolic 101–136; BP diastolic 71–82; PULSE 72–104; RESP 16; TEMP 36.6–36.8; O2SAT 95–100; BMI 25.9
--- NOTE | 2024-07-12 | COLBX_PTH ---
PATIENT: MAYA LÓPEZ LOC: EN U#:[id number] AGE/SX: 74/F ROOM: RE07/12/[address]: Dr. Za Dhaliwal MD : 1950 BED: DIS: 07/12/2024 SPEC #: [id number] RECD: 07/12/24 13:31 STATUS: MISSY GABRIELE #: [id number] ANASTASIA: 07/12/24 00:[address]: Za Dhaliwal DEPT: SURGICAL PATHOLOGY RECD BY: Sky Kerr ENTERED: 07/12/24 13:32 SP TYPE: COLON BX OT DR: Dr. Maurilio Castillo MD Tissues: A - Ascending colon B - Descending colon Procedures: Surgery Specimen Level IV HEADER OPERATION: Colonoscopy biopsy PRE-OP DIAGNOSIS: Constipation TISSUE SUBMITTED: A- Ascending colon polyp biopsy, B- Descending colon polyp biopsy MICROSCOPIC DIAGNOSIS A. Ascending colon polyp, biopsy: Fragments of tubular adenoma. A few pigment laden macrophages, consistent with melanosis coli. B. Descending colon polyp, biopsy: A fragment of colonic mucosa with minimal changes suggestive of hyperplastic polyp. 07/13/2024 MICROSCOPIC DESCRIPTION Slides are reviewed. GROSS DESCRIPTION A. Received in fixative is one container labeled with the patient's name and designated Ascending colon polyp biopsy. The specimen consists of multiple irregular fragments of booker soft tissue that in aggregate measure 0.7 x 0.5 x 0.2 cm. The specimen is totally submitted in one cassette. B. Received in fixative is one container labeled with the patient's name and designated Descending colon polyp biopsy. The specimen consists of one irregular fragment of booker soft tissue that measures 0.3cm in greatest dimension. The specimen is totally submitted in one cassette. 07/12/2024 TC:1 CPT:53815s1
--- NOTE | 2024-07-12 07:54 | H&P.OPEN ---
HPI - General General Date of Service: 07/12/24 HPI Narrative MAYA LÓPEZ, is a 74 F who presents for colonoscopy due to constipation. Patient has been taking MiraLAX daily and has been having bowel movements about every other day with this. Otherwise patient denies other changes since office visit. 06/02/24 office visit HPI HPI: 74-year-old female presents for colonoscopy due to diarrhea. Patient states she previous to February had chronic constipation. And then she was fluctuating between diarrhea and constipation. Patient was advised by her PCP to take MiraLAX daily patient has states that that has helped some days when it is already looser she is only taking half the dose of MiraLAX instead of the whole 17 g. Patient states that her stools currently are semiformed's occasionally not complete diarrhea. Patient's last colonoscopy was in [address] Ayala negative per patient, last EGD was in [address] Royal also negative per patient. Patient states in February she did have 1 episode of black stool however she did take Pepto-Bismol at that time. No further episodes. Patient does complain of bilateral lower quadrant/more suprapubic pain. [facility]LY [facility] Medical History Back pain Essential tremor Colitis Gastric reflux History of hiatal hernia History of irregular heartbeat External nasal lesion Screening for osteoporosis Depression Cancer Wears glasses Cancer Depression Anxiety Ambulates with cane High cholesterol Easy bruising History of renal disease Non-smoker History of pain when walking Hx of mitral valve prolapse History of stress test Premature atrial complex Mitral valve prolapse Hay fever Kidney disease Breast cancer Herniation of lumbar intervertebral disc Arthritis Nephrolithiasis Osteopenia Hypertension Heart disease GERD (gastroesophageal reflux disease) Anxiety Home Medications ?Medication ?Instructions ?Recorded ?Last Taken ?Type duloxetine 60 mg capsule,delayed 90 mg PO DAILY Antidepressant 09/09/20 Unknown History release omeprazole 40 mg-sodium 40 each PO DAILY 12/13/20 04/16/21 History bicarbonate 1.1 gram capsule polyethylene glycol 3350 17 gram 17 g PO DAILY 12/22/23 Unknown History oral powder packet (Miralax) calcium citrate 200 mg PO BID 02/16/24 Unknown History fexofenadine 60 mg tablet (Jessica 60 mg PO BID PRN ALLERGIES 02/16/24 Unknown History Allergy) camphor-menthol 0.2 %-3.5 % 1 applic topical DAILY PRN muscle 07/08/24 Unknown History topical gel (Arctic Relief) pain vibegron 75 mg tablet (Gemtesa) 75 mg PO DAILY 07/08/24 Unknown History Allergy/AdvReac Type Severity Reaction Status Date / Time Penicillins (PCN) Allergy Unknown Verified 07/12/24 08:04 amoxicillin trihydrate (From AdvReac Rash Verified 07/12/24 08:04 Amoxil) ciprofloxacin (From Cipro) AdvReac Nausea Verified 07/12/24 08:04 ciprofloxacin HCl (From AdvReac Nausea Verified 07/12/24 08:04 Cipro) Family History Mother Multiple myeloma Thyroid disorder Hypertension Hyperlipidemia Heart disease Diabetes Father Diabetes Surgical History Hx of colonoscopy History of esophagogastroduodenoscopy (EGD) History of discectomy History of laminectomy History of lithotripsy History of dilation and curettage History of tonsillectomy History of lumpectomy of right breast History of hysterectomy History of appendectomy Social History Smoking Status: Never smoker Past Medical/Surgical History Planned Operation Planned Operative Procedure(s): COLONOSCOPY S.O.S: No Previous Hospitalizations/Surgeries HX Hospitalizations: No HX of Surgeries: appendectomy hysterectomy lithotripsy lumpectomy tonsillectomy pain block in back 09/2020 laminectomy Any Problems With Anesthesia: Yes (N,V) You/Your Family Experience Fever (Hyperthermia) With Anes: No Cholinesterase deficiency: No Cardiovascular Hx Chest Pain within Last 2 months: No Hx of Irregular Heartbeat and/or Afib: No Hx Heart Attack: No Hx Congestive Heart Failure: No Hx Rheumatic Fever: No Hx Hypertension: Yes (not on medication now) Hx Pacemaker: No Hx Cardiac Catheterization: No Hx Cardiac Surgery/Stents/Etc.: No Hx Stress Test: Yes (approx 2009) Hx Pain in Legs when Walking/Leg Cramps: No Respiratory Chronic Cough: No HX of Shortness of Breath: No Hoarseness: No Hx Chronic Obstructive Pulmonary Disease (COPD): No Hx Asthma: No Hx Emphysema: No Hx Sleep Apnea: No Hx Respiratory Tract Infection/Cold (presently): No Do You Snore Loudly (louder than talking or can be heard): No Do You Often Feel Tired/ Fatigued/ Sleepy Dring Daytime?: No Has Anyone Observed You Stop Breathing During Sleep?: No Result (for STOP score): Negative Hx Smoking: No Smoking Status: Never smoker Gastrointestinal Controlled With Meds: Yes (tums prn) Hx Gastrointestinal Disorders: Yes (chronic constipation) Hx Gastrointestinal Bleed: No Hx Ulcer: No Hx Hiatal Hernia: No Difficulty Chewing/Swallowing: No Special diet followed at home: No Hx Unplanned Weight Loss of 20#: No Neurological Hx Seizures: No HX Syncope/Blackout Spells/Unconsciousness: No Hx Transient Ischemic Attacks (TIA): No Hx Multiple Sclerosis: No Hx Parkinson's Disease: No Hx Head/Neck Injury: No Hx Headaches: No Hx Back Injury/Pain: Yes (L1,2,3 herniation) Recent Onset of Speech Difficulty: No Does patient have nerve stimulator: No Blood Disorder Hx Leukemia: No Bleeding Tendencies: Yes (bruise easily) Hx Deep Vein Thrombosis: No Hx High Cholesterol: No Blood Transmitted Disease: No Hx Hepatitis: No Hx Cirrhosis: No Hx Anemia: Yes Hx Blood Disorders: No Reproduction Are You Post Menopause: Yes Genitourinary Hx Renal Disease: Yes (stage 3 kidney disease) Hx Dialysis: No Musculoskeletal Hx Arthritis: Yes (back) Hx Rheumatoid Arthritis: No Hx Gout: No Recent Onset of an Orthopedic Problem: Yes Endocrine Hx Diabetes: No Thyroid Disease: No Psycho/Social Hx Substance Use: Yes (CBD gummies will not use again per pt.) Hx Alcohol Use: No Hx Anxiety: Yes Hx Depression: Yes Mental Illness: No Hx Dementia: No Miscellaneous Hx Cancer: Yes (right breast lumpectomy) Recent Exposure to Contagious Disease: No Hx of C-Diff: No Any Loose Teeth: No Allergies Penicillins (PCN) Allergy (Verified 07/12/24 08:04) Unknown amoxicillin trihydrate (From Amoxil) Adverse Reaction (Verified 07/12/24 08:04) Rash ciprofloxacin (From Cipro) Adverse Reaction (Verified 07/12/24 08:04) Nausea ciprofloxacin HCl (From Cipro) Adverse Reaction (Verified 07/12/24 08:04) Nausea Maternal: Family History Mother Multiple myeloma Thyroid disorder Hypertension Hyperlipidemia Heart disease Diabetes Father Diabetes Cancer (Mother with a history of multimyeloma.), Diabetes, High Cholesterol, Heart Disease, Hypertension and - (Mother with a history of thyroid disease.) Paternal: Family History Mother Multiple myeloma Thyroid disorder Hypertension Hyperlipidemia Heart disease Diabetes Father Diabetes Diabetes Discharge Is Pt Admitted From a Long-Term, or a Detention: No After D/C, Where Do you Plan to Go: Return Home From the PAT History Number of Risk Factors: 7 Physical Exam Const alert, oriented x3 and no apparent distress HEENT normocephalic and head/scalp atraumatic Resp normal respiratory effort Cardio regular rate GI soft to palpation and non-tender; Negative for non-distended Palpation: Negative for guarding Extremity no clubbing, cyanosis or edema Skin no rashes or lesions noted Neuro CN's II-XII intact bilaterally Psych mental status grossly normal Assessment & Plan Assessment/Plan (1) Constipation: Surgery Risks - Colonoscopy I discussed with the patient the risks of the procedure: Yes Risks Include but are not Limited To: Risks include but are not limited to: Bleeding, perforation requiring further surgery, inability to complete colonoscopy requiring barium enema.
--- NOTE | 2024-07-12 08:06 | PRE.ANES_ITS ---
ASA Classification* ASA Classification ASA Classification: 3 Assessment & Plan Anesthesia* Anesthesia Assessment Anesthesia Assessment: Discussed sedation and/or anesthesia options, risks, benefits, and alternatives with patient/parents/legal guardian/POA. Questions invited. The patient/parents/legal guardian/POA seems to understand and agrees to proceed with anesthesia plan. Reviewed the physical assessment, medical history, allergy history and patient home medications list prior to surgery/procedure/anesthetic and documented any changes. Performed airway and anesthesia risk assessments. Anesthesia Type Anesthesia Type: MAC Anesthesia Focused Assessment* Airway Assessment Mouth opens: >3 cm Mallampati Score: II Focused Labs Anesthesia Preop lab: CBC WBC 4.1 K/mm3 (4.4-11.0) L 04/30/24 15:25 RBC 4.94 M/mm3 (4.2-5.4) 04/30/24 15:25 Hgb 13.5 g/dL (12.0-15.0) 04/30/24 15:25 Hct 43.3 % (37-47) 04/30/24 15:25 Plt Count 294 K/mm3 (150-450) 04/30/24 15:25 CHEMISTRY Potassium 3.9 mmol/L (3.5-5.1) 04/30/24 15:25 Sodium 137 mmol/L (136-145) 04/30/24 15:25 Magnesium 1.7 mg/dL (1.6-2.6) 11/21/20 07:56 Phosphorus 3.3 mg/dL (2.5-4.9) 02/25/24 14:01 BUN 20 mg/dL (7-18) H 04/30/24 15:25 Creatinine 0.99 mg/dL (0.55-1.02) 04/30/24 15:25 Glucose 90 mg/dL (74-106) 04/30/24 15:25 POC Glucose 106 mg/dL (70-110) 10/12/20 06:11 TSH 1.08 uIU/mL (0.358-3.74) 03/29/21 14:00 COAG PT 12.4 SECONDS (11.7-14.9) 10/04/20 09:49 Pre-Assessment Diagnosis/Proposed Procedure Planned Operative Procedure(s): COLONOSCOPY Anesthesia History 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 When Was Last Pacemaker Check QUESTION #4 FULL TEXT: You/Your Family Experience fever (hyperthermia) with Anesthesia Last Oral Intake Last Oral intake: Last Oral Intake NPO since Meds taken in AM with sips of water? Meds patient instructed to take am of surgery PONV PONV - career development director: PONV - career development director Female Yes 07/08/24 11:32 HX of Motion Sickness Yes 07/08/24 11:32 HX of N/V After Surgery Yes 07/08/24 11:32 Non-Smoker Yes 07/08/24 11:32 Duration of Surgery greater No 07/08/24 11:32 than 60 minutes Number of Risk Factors 4 07/08/24 11:32 PONV Score Severe Risk 07/08/24 11:32 Height & Weight Height & Weight: Anesthesia: Height & Weight Height 5 ft 6 in 06/02/24 14:57 Respiratory Assessment Respiratory Assessment - career development director: Respiratory Tract Infection Hx - career development director Hx Respiratory Tract Infection No 07/12/24 07:56 STOP Sleep Apnea STOP Sleep Apnea - career development director: STOP Sleep Apnea - career development director Hx Hypertension Yes: not on medication now 07/12/24 07:56 Hx Sleep Apnea No 07/12/24 07:56 CPAP BIPAP Do you snore loudly (louder No 07/12/24 07:56 than talking or can be heard Do you often feel tired/ No 07/12/24 07:56 fatigued/ sleepy during daytime? Has anyone observed you stop No 07/12/24 07:56 breathing during sleep? STOP Results Negative 07/12/24 07:56 QUESTION #5 FULL TEXT : Do you snore loudly (louder than talking or can be heard through closed doors)? 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 Specify any problems Hx of Preganancy in last 3 No 07/08/24 11:32 Months Nurse Filling Out Transfusion VCHRISTIN 07/08/24 11:32 & Questions: Date: 07/08/24 07/08/24 11:32 Time: 11:33 07/08/24 11:32 Patient unable to answer at this time (ie. confused, unrespo /Reproduction History /Reproductive History - career development director: /Reproductive Hx- career development director Hx Now Gestational Age (in weeks): EDC: Hx Hx Para Hx Section SAB No 07/08/24 11:32 PFSH Medical History Back pain Essential tremor Colitis Gastric reflux History of hiatal hernia History of irregular heartbeat External nasal lesion Screening for osteoporosis Depression Cancer Wears glasses Cancer Depression Anxiety Ambulates with cane High cholesterol Easy bruising History of renal disease Non-smoker History of pain when walking Hx of mitral valve prolapse History of stress test Premature atrial complex Mitral valve prolapse Hay fever Kidney disease Breast cancer Herniation of lumbar intervertebral disc Arthritis Nephrolithiasis Osteopenia Hypertension Heart disease GERD (gastroesophageal reflux disease) Anxiety Home Medications ?Medication ?Instructions ?Recorded ?Last Taken ?Type duloxetine 60 mg capsule,delayed 90 mg PO DAILY Antidepressant 09/09/20 Unknown History release omeprazole 40 mg-sodium 40 each PO DAILY 12/13/20 04/16/21 History bicarbonate 1.1 gram capsule polyethylene glycol 3350 17 gram 17 g PO DAILY 12/22/23 Unknown History oral powder packet (Miralax) calcium citrate 200 mg PO BID 02/16/24 Unknown History fexofenadine 60 mg tablet (Jessica 60 mg PO BID PRN ALLERGIES 02/16/24 Unknown History Allergy) camphor-menthol 0.2 %-3.5 % 1 applic topical DAILY PRN muscle 07/08/24 Unknown History topical gel (Arctic Relief) pain vibegron 75 mg tablet (Gemtesa) 75 mg PO DAILY 07/08/24 Unknown History Allergy/AdvReac Type Severity Reaction Status Date / Time Penicillins (PCN) Allergy Unknown Verified 07/12/24 08:04 amoxicillin trihydrate (From AdvReac Rash Verified 07/12/24 08:04 Amoxil) ciprofloxacin (From Cipro) AdvReac Nausea Verified 07/12/24 08:04 ciprofloxacin HCl (From AdvReac Nausea Verified 07/12/24 08:04 Cipro) Family History Mother Multiple myeloma Thyroid disorder Hypertension Hyperlipidemia Heart disease Diabetes Father Diabetes Surgical History Hx of colonoscopy History of esophagogastroduodenoscopy (EGD) History of discectomy History of laminectomy History of lithotripsy History of dilation and curettage History of tonsillectomy History of lumpectomy of right breast History of hysterectomy History of appendectomy Social History Smoking Status: Never smoker Review of Systems (Anesthesia) ROS Narrative System reviewed and no additional complaints, except as documented.
--- NOTE | 2024-07-12 09:41 | OP.COLON_ITS ---
Patient Name: Devorah Curry Procedure Date: 07/12/2024 9:06 AM Date of : 1950 Age: 74 Procedure: Colonoscopy Indications: Constipation Providers: Za Dhaliwal MD Referring MD: Maurilio Castillo Medicines: Monitored Anesthesia Care Patient Profile: This is a 74 year old female. Last Colonoscopy: 2016. Complications: No immediate complications. Procedure: Pre-Anesthesia Assessment: - Prior to the procedure, a History and Physical was performed, and patient medications and allergies were reviewed. The patient's tolerance of previous anesthesia was also reviewed. The risks and benefits of the procedure and the sedation options and risks were discussed with the patient. All questions were answered, and informed consent was obtained. Prior Anticoagulants: The patient has taken no anticoagulant or antiplatelet agents. ASA Grade Assessment: Per anesthesia. After reviewing the risks and benefits, the patient was deemed in satisfactory condition to undergo the procedure. After I obtained informed consent, the scope was passed under direct vision. Throughout the procedure, the patient's blood pressure, pulse, and oxygen saturations were monitored continuously. The colonoscope was introduced through the anus and advanced to the cecum, identified by the appendiceal orifice, ileocecal valve and palpation. The colonoscopy was performed without difficulty. The patient tolerated the procedure well. The quality of the bowel preparation was good. Scope In: 9:11:34 AM Scope Withdrawal Time 0 hours 15 minutes 49 seconds Scope Out: 9:33:56 AM Total Procedure Duration Time 0 hours 22 minutes 22 seconds Findings: The perianal and digital rectal examinations were normal. Two sessile polyps were found in the descending colon and ascending colon. The polyps were less than 5 mm in size. These polyps were removed with a cold biopsy forceps. Resection and retrieval were complete. The exam was otherwise without abnormality. Impression: - Two less than 5 mm polyps in the descending colon and in the ascending colon, removed with a cold biopsy forceps. Resected and retrieved. - The examination was otherwise normal. Recommendation: - Discharge patient to home. - Resume previous diet. - Continue present medications. - Await pathology results. - Repeat colonoscopy in 5 years for surveillance based on pathology results. - Repeat colonoscopy Depending on overall health at that time. Procedure Code(s): --- Professional --- 20391, PT, Colonoscopy, flexible; with biopsy, single or multiple Diagnosis Code(s): --- Professional --- D12.4, Benign neoplasm of descending colon D12.2, Benign neoplasm of ascending colon K59.00, Constipation, unspecified CPT copyright 2021 [employer]. All rights reserved. The codes documented in this report are preliminary and upon ripsaw grader review may be revised to meet current compliance requirements. MD Za Mahajan MD 07/12/2024 9:40:51 AM This report has been signed electronically. Number of Addenda: 0 Note Initiated On: 07/12/2024 9:06 AM
--- NOTE | 2024-07-12 09:41 | OP.CCLET_ITS ---
07/12/2024 Maurilio Castillo [address] [place] [address] Re : Colonoscopy procedure for Devorah Curry Dear Dr. Castillo This procedure was performed on Friday, July 12, 2024. My impressions and recommendations are as follows: Impressions : - Two less than 5 mm polyps in the descending colon and in the ascending colon, removed with a cold biopsy forceps. Resected and retrieved. - The examination was otherwise normal. Recommendations : - Discharge patient to home. - Resume previous diet. - Continue present medications. - Await pathology results. - Repeat colonoscopy in 5 years for surveillance based on pathology results. - Repeat colonoscopy Depending on overall health at that time. My findings are described in the full procedure note, which is enclosed. If I can be of further assistance, please feel free to contact me at Doctor phone number(s): , Work: . Sincerely, MD Za Mahajan MD 07/12/2024 9:40:51 AM This report has been signed electronically.
--- NOTE | 2024-07-12 09:45 | PCM.POST.ANE ---
Anesthesia: Postop Eval I Current Vital Signs Temperature: 98.2 F Pulse Rate: 79 Blood Pressure: 116/77 Respiratory Rate: 16 Pulse Ox: 96 Oxygen Delivery Method: Room Air Assessment Airway patent: Yes Spontaneous unlabored respirations: Yes Mental status: Asleep nausea: No Vomiting: No Anesthesia Complication: No Fluid Hydration Crystalloid volume administer (ml): 40 Total IV fluid infused: 40 Progress Note Anesthesia document: Postop Eval 1 completed: Yes
--- NOTE | 2024-07-12 10:10 | PCM.POSTANE2 ---
Anesthesia Postop Eval I Sum Postop Eval Completion status Anesthesia document: Postop Eval 1 completed: Yes Anesthesia Postop Eval I Summary Anesthesia Postop Eval I Summary: Anesthesia Postop Eval I: Assessment Summary Airway patent Yes 07/12/24 09:46 [email or web address] Spontaneous unlabored Yes 07/12/24 09:46 [email or web address] respirations Mental status Asleep 07/12/24 09:46 [email or web address] nausea No 07/12/24 09:46 [email or web address] Vomiting No 07/12/24 09:46 [email or web address] Anesthesia Postop Eval I: Fluid Summary Crystalloid volume administer 40 07/12/24 09:46 [email or web address] (ml) Colloids volume administered ( ml) Blood Product volume administered (ml) Total IV fluid infused 40 07/12/24 09:46 [email or web address] Anesthesia Postop Eval I: Summary Notes Anesthesia Complication No 07/12/24 09:46 [email or web address] Anesthesia Complication Comment: Post-operative progress note Anesthesia: Postop Eval II Evaluation Mental status: Awake Pain Level: 0 nausea: No Vomiting: No
== END 2024-07-12 10:28 | disposition home or self-care (01) ==
LOC: EN 07:51 → AC 07:51
PROVIDERS: PCP Family Medicine; Referring Provider Family Medicine; Visit Provider Surgery
PROC: 0DJD8ZZ Inspection of Lower Intestinal Tract, Via Natural or Artificial Opening Endoscopic (ICD-10-PCS; CPT 45378; principal; 2024-07-12 08:55)
DX: K59.00 Constipation, unspecified (principal); I10 Essential (primary) hypertension; Z90.710 Acquired absence of both cervix and uterus; E78.00 Pure hypercholesterolemia, unspecified; Z90.49 Acquired absence of other specified parts of digestive tract; D12.4 Benign neoplasm of descending colon; D12.2 Benign neoplasm of ascending colon; F32.A Depression, unspecified; F41.9 Anxiety disorder, unspecified; Z79.899 Other long term (current) drug therapy; K21.9 Gastro-esophageal reflux disease without esophagitis
CPT/HCPCS: 45380; 88305; A4216; J2405

== ENCOUNTER 2024-10-05 12:00 | Outpatient (RCR) | payer MEDICARE, OTHER, SELFPAY ==
--- NOTE | 2024-09-14 15:25 | HP.PTEVAL ---
Patient's Visit Information Visit Information Visit Information: MAYA LÓPEZ is a 74 year old F referred to Physical Therapy by Dr. Irina Lake MD with a diagnosis of OVER ACTIVE BLADDER AND MIXED INCONTINENCE. Date of Evaluation: 09/14/24 Physical Therapist: Mari Orozco PT, Cert MDT Visit Plan Frequency: 1x/Week Duration: 2-4 Months Plan: PF THERAPY FOR STRENGTHENING, LENGTHENING/RELAXATION AND ENDURANCE TRAINING. URINARY URGE AND FREQUENCY EDUCATION. HEALTHY BACK AND BLADDER HABIT EDUCATION. TRAINING IN COORDINATION OF PELVIC FLOOR MUSCULATURE WITH HIP AND CORE (TRANSVERSE ABDOMINUS) MUSCULATURE. CORE STRENGTHENING. CHARLENE LE ROM, STRETCHING AND STRENGTHENING. TRAINING IN ABDOMINAL CAVITY PRESSURE MGMT WITH ADL'S. Subjective Subjective: Work/Leisure: RETIRED. 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 Present symptoms: OVER-ACTIVE BLADDER. SLIGHT SPOTTING URINE. Present since: YEARS BUT DIDN'T REALIZE IT WAS ABNORMAL UNTIL A FEW MONTHS AGO IN THE FALL OF 2023 Is it getting better, worse or staying the same: STAYING THE SAME Commenced as a result of: NO APPARENT REASON Worse: CERTAIN DRINKS AND FOODS Better: DIET CHANGES, GEMTESA BUT SIDE EFFECTS THEREFORE STOPPED AND IS NOW ON ANOTHER ONE BUT SIDE EFFECTS FROM THAT ONE TOO INCLUDING STOMACH ACHES AND DIZZINESS (STATES DR. LAKE IS AWARE). Previous history/Previous treatment: DENIES HX OF PELVIC FLOOR THERAPY. Treatment this episode: MEDICATIONS AND DIET CHANGES. Gait: USES CANE FOR BALANCE PROBLEMS FROM BACK PROBLEMS How long can you delay the need to urinate: 15 TO 30 MINUTES Prolapse (Falling out feeling): NO Frequency of Urination: CURRENTLY 9 TO 10 TIMES A DAY (18 TIMES A DAY PRIOR TO MEDICATION) DURING THE DAY AND 2-3 TIMES AT NIGHT. URINARY LEAKING: WEARING URINARY INCONTINENCE PANTIES OR 1-2 UI VERY THIN LINERS FOR SMALL AMOUNTS OF CHRONIC LEAKING DAILY FOR YEARS. Ability to stop urine flow: DOES NOT KNOW. Ability to initiate urine stream: YES - NEVER DIFFICULTY Dyspareunia: N/A Bowel Incontinence: NO Unexplained weight loss: NO PMH/Recent major surgery: Back pain Essential tremor Colitis Gastric reflux Depression Anxiety High cholesterol History of renal disease Mitral valve prolapse Hay fever Kidney disease Breast cancer Herniation of lumbar intervertebral disc Arthritis Nephrolithiasis Osteopenia Hypertension Heart disease GERD (gastroesophageal reflux disease) Anxiety History of esophagogastroduodenoscopy (EGD) History of discectomy History of laminectomy History of lithotripsy History of dilation and curettage History of lumpectomy of right breast History of hysterectomy History of appendectomy Objective Objective: Sitting/Standing Posture: DECREASED LORDOSIS IN STANDING. NO RELEVANT LATERAL SHIFT. Other Observations: INDEP GAIT INTO PT WITH ST CANE, DECREASED CADANCE, NO LOB. INDEP SIT TO STAND WITH UE ASSIST. Sensory deficit: CHARLENE LE LIGHT TOUCH SENSATION GROSSLY INTACT AND SYMMETRICAL ROM deficit: CHARLENE HIP TIGHTNESS INTO ROTATION. HS TIGHTNESS. ABD/ADD AND CHARLENE CALF TIGHTNESS. Motor deficit: CHARLENE HIPS GROSSLY 4-/5, KNEE'S 4-/5, ANKLES 4/5 Reflexes: UNABLE TO ELICIT CHARLENE LE DTR'S Dural Signs: NEGATIVE CHARLENE LE'S Lumbar mvmt loss: flex - MOD ext - ELIZABETH R SG - ELIZABETH L SG - ELIZABETH. C/O LBP LIMITING LUMBAR ROM. Core strength: POOR Palpation: LOW BACK AND R HIP TENDERNESS. OTHER: PATIENT DECLINED PELVIC EXAM FOR PELVIC FLOOR STRENGTH TESTING STATING IT WILL BE TOO PAINFUL. PATIENT COMMUNICATES THE ABILITY TO BE ABLE TO CONTRACT HER PELVIC FLOOR MUSCLES. FUNCTIONAL SCREEN: Incontinence Impact Questionnaire Score: 9 Urogenital Distress Inventory Score: 13 Goals Goal 1:: DECREASE NEED OF PAD USAGE TO ONE OR LESS PER DAY. Goal Time Frame: 8-12 Weeks Goal 2:: PATIENT WILL SUCCESSFULLY DELAY VOIDING LONG NEEDED WHEN URGENCY OCCURS TO SUCCESSFULLY MAKE IT TO THE BATHROOM AT LEAST 50% OF THE TIME. Goal Time Frame: 6-8 Weeks Goal 3:: PATIENT WILL DEMONSTRATE/COMMUNICATE 10 CONSISTENT AND CONSECUTIVE 10 SECOND PELVIC FLOOR MUSCLE CONTRACTIONS TO DEMONSTRATE IMPROVED PELVIC FLOOR ENDURANCE. Goal Time Frame: 8-12 Weeks Goal 4:: DEVELOP HEALTHY FLUID INTAKE HABITS WITH FLUID INTAKE OF ? BODY WEIGHT IN OUNCES PER DAY AND 2/3 BEING WATER. Goal Time Frame: 4-6 Weeks Goal 5:: NORMALIZE VOIDING FREQUENCEY TO EVERY 2.5 TO 3 HRS. Goal Time Frame: 8-12 Weeks Goal 6:: PATIENT WILL BE INDEP WITH A HEP/HOME INSTRUCTIONS FOR CONTINUED IMPROVEMENT ONCE FORMAL PHYSICAL THERAPY CONCLUDES. Goal Time Frame: 8-12 Weeks Rehabilitation Potential Physical Therapy Diagnosis: TRUNK AND LE STIFFNESS AND WEAKNESS. SIGNS OF OAB AND MIXED INCONTINENCE. Rehabilitation Potential: Good Anticipated Interventions Patient/Client Instruction: Educate patient on: Condition, Plan of Care and Risk Factors For the Purpose of:: To improve self management Therapeutic Exercise to Include: Strength training, Endurance training, Body mechanics, Postural training, Flexibilty training, Neuromotor development and Relaxation training For the Purpose of:: To increase ROM, To improve muscle performance and motor function, To increase tolerance to activity/condition/position and To increase flexibility/ROM Text: Thank you for the opportunity to evaluate your patient. For Medicare and Medicare HMO plans, please review the plan of care and approve it. It will need to be FAXED BACK to us at [phone] for Medicare purposes. For Medicare only, by signing this I certify the plan of care. Please let me know if there are questions or concerns regarding this plan of care. Physician Signature: Date:
--- NOTE | 2024-10-12 15:33 | HP.PTDCNRP_ITS ---
Patient Information Patient Information: MAYA LÓPEZ was seen in my office for initial evaluation on 09/14/24. The following Plan of Care was established for this patient: POC Established Initial Frequency: 1x/Week Initial Duration: 2-4 Months Anticipated Interventions Patient/Client Instruction: Educate patient on: Condition, Plan of Care and Risk Factors For the Purpose of:: To improve self management Therapeutic Exercise to Include: Strength training, Endurance training, Body mechanics, Postural training, Flexibilty training, Neuromotor development and Relaxation training For the Purpose of:: To increase ROM, To improve muscle performance and motor function, To increase tolerance to activity/condition/position and To increase flexibility/ROM Last Seen Last Seen: This patient was last seen in our office 10/05/24. Pertinent comments regarding their Physical therapy will appear below: It has been my pleasure to see this patient for a total of 3 visits. She cancelled her last visit due to hurting her back chasing her Yorkie who e scaped out the garage. She decided to stop therapy at this time. She is appropriate to return to MD for further follow-up as needed. At this point I will be discontinuing this patient from physical therapy. I would be happy to see this patient again in the future if found appropriate by the physician. Thank you! Mari Orozco, PT, Cert MDT
== END 2024-10-05 19:00 | disposition home or self-care (01) ==
LOC: PT 12:00
PROVIDERS: PCP Family Medicine; Referring Provider Urology; Visit Provider Urology
DX: N39.46 Mixed incontinence (principal); N32.81 Overactive bladder
CPT/HCPCS: 97162; 97530

== ENCOUNTER → 2024-10-06 | Outpatient (CLI) | payer MEDICARE, OTHER, SELFPAY ==
[2024-10-06 17:59] LABS: Absolute Lymphocyte Count 1.51 X10^3/uL (0.83-4.51); Absolute Neutrophil Count 2.4 X10^3/uL (2.0-7.7); Basophil# 0.05 X10^3/uL; Basophil% 1.1 % (0-1); Eosinophil# 0.11 X10^3/uL; Eosinophils% 2.4 % (0-5); Hematocrit 40.2 % (37-47); Hemoglobin 12.4 g/dL (12.0-15.0); Lymphocyte # 1.51 X10^3/ul (0.83-4.51); Lymphocyte % 33.2 % (19-41); Mean Corp Hgb Conc 30.8 g/dL (32-36); Mean Corpuscular Hgb 28.9 pg (27.0-32.0); Mean Corpuscular Volume 93.7 fL (81-99); Mean Platelet Vol. 10.2 fl (6.2-12.0); Monocyte# 0.45 X10^3/uL; Monocyte% 9.9 % (0-10); NRBC Flagged by Analyzer 0 % (0-5); Neutrophil # 2.42 X10^3/uL (2.7-7.7); Neutrophil % 53.2 % (47-70); Platelet Count 308 K/mm3 (150-450); RBC Distribution Width CV 14.6 % (11.6-14.6); RBC Distribution Width SD 49.7 fl (35.1-43.9); Red Blood Count 4.29 M/mm3 (4.2-5.4); White Blood Count 4.6 K/mm3 (4.4-11.0)
[2024-10-06 18:01] LABS: PTHIN 72.3 pg/mL (18.4-80.1)
[2024-10-06 18:05] LABS: Vitamin D,25 Hydroxy 35.4 ng/mL
[2024-10-06 18:18] LABS: Protein, Urine (Random) 26.3 mg/dL (<11.9); Protein:Creat Ratio 89 mg/g CRE (0-200)
[2024-10-06 18:21] LABS: ALB/GLOB Ratio 1.1 RATIO (0.9-2.4); AST(SGOT) 21 U/L (15-37); Alanine Aminotransfer ALT/SGPT 18 U/L (13-56); Albumin, Serum 3.6 g/dL (3.2-5.0); Alkaline Phosphatase 87 U/L (45-117); Anion Gap 7 (5-15); BUN 23 mg/dL (7-18); BUN/Creat Ratio 20.9 RATIO (10-20); Calcium,Total 9.2 mg/dL (8.5-10.1); Chloride 103 mmol/L (98-107); Cholesterol 241 mg/dL (200); EST Glomerular Filtration Rate 52 mL/min (>60); Est Glom Filt Rate - Afr Amer 62 mL/min (>60); Globulin 3.2 g/dL (2.2-4.2); Glucose 77 mg/dL (74-106); High Density Lipoprotein 96 mg/dL; Potassium 3.8 mmol/L (3.5-5.1); Protein, Total 6.8 g/dL (6.4-8.2); Sodium Level 137 mmol/L (136-145); Triglycerides 112 mg/dL; Very Low Density Lipoprotein 22 mg/dL (5-40)
== END | disposition home or self-care (01) ==
LOC: MTLAB 13:33
PROVIDERS: PCP Family Medicine; Referring Provider Family Medicine; Visit Provider Family Medicine
DX: M85.80 Other specified disorders of bone density and structure, unspecified site (principal); N18.30 Chronic kidney disease, stage 3 unspecified; E78.5 Hyperlipidemia, unspecified
CPT/HCPCS: 36415; 80053; 80061; 82043; 82306; 82570; 83970; 84156; 85025

== ENCOUNTER 2024-12-21 13:09 | Outpatient (CLI) | payer MEDICARE, OTHER, SELFPAY ==
--- NOTE | 2024-12-21 13:10 | BI_ITS ---
EXAM: SCRN MAMM (CAD)W/LEBRON BILAT 12/21/2024 CLINICAL HISTORY: F, Age 74 y/o , SCREENING. Personal history of right breast cancer in 2009 status post lumpectomy, axillary dissection radiation and chemotherapy. TECHNIQUE: Bilateral screening digital breast tomosynthesis with 2D and 3D images. Computer aided detection. COMPARISON: Prior exam(s) dated 12/15/2023, 12/11/2022, 12/06/2021. FINDINGS: TISSUE DENSITY: The breast tissue is composed of scattered area of fibroglandular density. Bilateral Breast Mammographic Findings: No significant masses, calcifications or other abnormalities are identified. BI/SCRN MAMM (CAD)W/LEBRON BILAT IMPRESSION: Right Breast: BIRADS 1 NEGATIVE. Left Breast: BIRADS 1 NEGATIVE. OVERALL FINAL ASSESSMENT: BIRADS 1 NEGATIVE. RECOMMENDATION: Routine annual follow-up in 1 Year A letter with findings and recommendations will be mailed to the patient. Reading Location: [id number]
--- NOTE | 2024-12-21 13:23 | BD_ITS ---
PROCEDURE: DEXA BONE DENSITY STUDY REASON FOR EXAM: None provided TECHNIQUE: DEXA scan of the lumbar spine and bilateral hips, using a Hologic Horizon W unit. REFERENCE LINKS: ISCD Adult Positions COMPARISON: 12/11/2022 FINDINGS: LUMBAR SPINE: Bone mineral denisty, L1-L4: 0.747 g/cm??? T-score: -2.5 LEFT FEMORAL NECK: Bone mineral denisty: 0.712 g/cm??? T-score: -1.2 LEFT TOTAL HIP: Bone mineral denisty: 0.708 g/cm??? T-score: -1.9 RIGHT FEMORAL NECK: Bone mineral denisty: 0.824 g/cm??? T-score: -0.2 RIGHT TOTAL HIP: Bone mineral denisty: 0.739 g/cm??? T-score: -1.7 FRAX*: 10 Year Probability of Fracture: Major Osteoporotic Fracture(1): 24.0% Hip Fracture(2): 4.4% Note that these are likely underestimates given that they are based on the bone mineral density measured at the hips rather than the lowest measured bone mineral density which was within the lumbar spine. *FRAX is a trademark of the [employer]'s [employer] for Metabolic Bone Disease, World Health Organization (WHO) Collaborating [employer]. 1-Major Osteoporotic Fracture: Clinical Spine, Forearm, Hip or Shoulder. 2-The 10-year probability of fracture may be lower than reported if the patient has received treatment. The National Osteoporosis Foundation recommends that medical therapy be considered in postmenopausal women and men, age 50 and older, with a: * hip or vertebral fracture * T-score less than or equal to -2.5 in the spine or hip * T-score between -1.0 and -2.5 and FRAX equal to or less than 3 percent for hip fracture or equal to or less than 20 percent for major osteoporotic fracture. World Health Organization criteria for BMD interpretation classify patients as Normal (T-score at or above -1.0), Osteopenic (T-score between -1.0 and -2.5), or Osteoporotic (T-score at or below -2.5). BD/Dexa Bone Density Study IMPRESSION: 1. Findings are borderline but technically represent osteoporosis. 2. Since the prior exam, there has been a decrease of 0.4% in the bone mineral density of the lumbar spine. 3. Additional description as above. Reading Location: [id number]
== END 2024-12-21 23:59 | disposition home or self-care (01) ==
LOC: OPBD 13:09
PROVIDERS: PCP Family Medicine; Referring Provider Family Medicine; Visit Provider Family Medicine
DX: Z12.31 Encounter for screening mammogram for malignant neoplasm of breast (principal); M85.89 Other specified disorders of bone density and structure, multiple sites
CPT/HCPCS: 77063; 77067; 77080

== ENCOUNTER → 2025-02-01 | Outpatient (CLI) | payer MEDICARE, OTHER, SELFPAY ==
[2025-02-01 15:42] LABS: Bacteria 0 SEEN /hpf (None Seen); Mucous, Urine 0 SEEN /hpf (<or=2+)
[2025-02-01 20:03] LABS: Absolute Lymphocyte Count 0.93 X10^3/uL (0.83-4.51); Absolute Neutrophil Count 2.1 X10^3/uL (2.0-7.7); Basophil# 0.04 X10^3/uL; Basophil% 1.1 % (0-1); Eosinophil# 0.11 X10^3/uL; Eosinophils% 3.1 % (0-5); Hematocrit 41.1 % (37-47); Hemoglobin 12.8 g/dL (12.0-15.0); Lymphocyte # 0.93 X10^3/ul (0.83-4.51); Lymphocyte % 25.9 % (19-41); Mean Corp Hgb Conc 31.1 g/dL (32-36); Mean Corpuscular Hgb 29.1 pg (27.0-32.0); Mean Corpuscular Volume 93.4 fL (81-99); Mean Platelet Vol. 10.4 fl (6.2-12.0); Monocyte# 0.38 X10^3/uL; Monocyte% 10.6 % (0-10); NRBC Flagged by Analyzer 0 % (0-5); Neutrophil # 2.12 X10^3/uL (2.7-7.7); Platelet Count 292 K/mm3 (150-450); RBC Distribution Width CV 13.9 % (11.6-14.6); RBC Distribution Width SD 47.6 fl (35.1-43.9); White Blood Count 3.6 K/mm3 (4.4-11.0)
[2025-02-01 20:27] LABS: PTHIN 60 pg/mL (11-61)
[2025-02-01 20:44] LABS: ALB/GLOB Ratio 1.6 RATIO (0.9-2.4); AST(SGOT) 27 U/L (<=31); Alanine Aminotransfer ALT/SGPT 17 U/L (<=34); Albumin, Serum 4.3 g/dL (3.4-4.8); Alkaline Phosphatase 90 U/L (35-104); Anion Gap 12 (5-15); BUN 19 mg/dL (4-19); BUN/Creat Ratio 16.8 RATIO (10-20); Calcium,Total 10.1 mg/dL (7.6-11.0); Chloride 102 mmol/L (98-108); Cholesterol 244 mg/dL (<=200); Creatinine, Serum 1.12 mg/dL (0.70-1.20); EST Glomerular Filtration Rate 52 (>60); Globulin 2.7 g/dL (2.2-4.2); Glucose 105 mg/dL (70-99); High Density Lipoprotein 91 mg/dL; Low Density Lipoprotein Calc. 139 mg/dL; Potassium 4.8 mmol/L (3.3-5.1); Sodium Level 140 mmol/L (133-145); Total Bilirubin 0.31 mg/dL (0.00-1.30); Triglycerides 71 mg/dL; Very Low Density Lipoprotein 14 mg/dL (5-40)
[2025-02-01 21:45] LABS: Color, Urine Yellow (Yellow); Glucose, Dipstick Normal (Normal); Ketone-Dipstick Negative (Negative); Leukocyte Esterase-Dipstick Negative /ul (Negative); Nitrite-Dipstick Negative (Negative); Occult Blood-Urine Negative /ul (Negative); Protein-Dipstick 15 mg/dl (Negative); Specific Gravity, Urine 1.015 (1.002-1.030); Urine Bilirubin Dipstick Negative (Negative); Urine Clarity Clear (Clear); Urine Urobilinogen Normal (Normal)
[2025-02-01 21:58] LABS: Protein, Urine (Random) 23.4 mg/dL (0.0-12.0); Protein:Creat Ratio 138 mg/g CRE (0-200)
[2025-02-01 22:22] LABS: Red Blood Cells-Urine 0-5 SEEN /hpf (0-5); Squamous Epithelial Cells - UA 0-5 SEEN /hpf (5-10); White Blood Cells 0-5 SEEN /hpf (0-5)
== END | disposition home or self-care (01) ==
LOC: MFPLAB 14:01
PROVIDERS: PCP Family Medicine; Referring Provider Family Medicine; Visit Provider Family Medicine
DX: E78.5 Hyperlipidemia, unspecified (principal); N18.30 Chronic kidney disease, stage 3 unspecified; E55.9 Vitamin D deficiency, unspecified
CPT/HCPCS: 36415; 80053; 80061; 81001; 82306; 82570; 83970; 84156; 85025

== ENCOUNTER 2025-06-01 14:02 | Outpatient (CLI) | payer MEDICARE, OTHER, SELFPAY ==
[2025-06-01 18:18] LABS: Hematocrit 39.8 % (37-47); Hemoglobin 12.6 g/dL (12.0-15.0); Immature Granulocytes Count 0.020 X10^3/uL (0.0-0.0); Mean Corp Hgb Conc 31.7 g/dL (32-36); Mean Corpuscular Volume 91.5 fL (81-99); Mean Platelet Vol. 10.4 fl (6.2-12.0); NRBC Flagged by Analyzer 0 % (0-5); Platelet Count 302 K/mm3 (150-450); RBC Distribution Width CV 14.5 % (11.6-14.6); RBC Distribution Width SD 48.8 fl (35.1-43.9); Red Blood Count 4.35 M/mm3 (4.2-5.4); White Blood Count 4.0 K/mm3 (4.4-11.0)
[2025-06-01 18:34] LABS: Creatinine, Urine (random) 179.00 mg/dL (28.00-217.00); Protein, Urine (Random) 25.7 mg/dL (0.0-12.0); Protein:Creat Ratio 144 mg/g CRE (0-200)
[2025-06-01 19:03] LABS: AST(SGOT) 24 U/L (<=31); Alanine Aminotransfer ALT/SGPT 13 U/L (<=34); Albumin, Serum 4.2 g/dL (3.4-4.8); Alkaline Phosphatase 86 U/L (35-104); Anion Gap 10 (5-15); BUN 20 mg/dL (4-19); BUN/Creat Ratio 18.5 RATIO (10-20); Calcium,Total 10.1 mg/dL (7.6-11.0); Carbon Dioxide 25.9 mmol/L (21.0-32.0); Chloride 102 mmol/L (98-108); Cholesterol 258 mg/dL (<=200); Globulin 2.9 g/dL (2.2-4.2); Glucose 89 mg/dL (70-99); Low Density Lipoprotein Calc. 143 mg/dL; Potassium 4.6 mmol/L (3.3-5.1); Triglycerides 99 mg/dL; Very Low Density Lipoprotein 20 mg/dL (5-40); Vitamin D,25 Hydroxy 43.4 ng/mL (30-100); cholesterol:hdl ratio screen 2.70
== END 2025-06-01 23:59 | disposition home or self-care (01) ==
LOC: MFPLAB 14:03
PROVIDERS: PCP Family Medicine; Visit Provider Family Medicine
DX: K21.9 Gastro-esophageal reflux disease without esophagitis (principal); E78.5 Hyperlipidemia, unspecified; E55.9 Vitamin D deficiency, unspecified
CPT/HCPCS: 36415; 80053; 80061; 82306; 82570; 84156; 85025

== ENCOUNTER → 2025-08-12 | Outpatient (CLI) | payer MEDICARE, OTHER, SELFPAY ==
[2025-08-12 18:06] LABS: Hematocrit 42.2 % (37-47); Hemoglobin 13.3 g/dL (12.0-15.0); Immature Granulocytes Count 0.010 X10^3/uL (0.0-0.0); Mean Corp Hgb Conc 31.5 g/dL (32-36); Mean Corpuscular Volume 93.0 fL (81-99); Mean Platelet Vol. 10.4 fl (6.2-12.0); NRBC Flagged by Analyzer 0 % (0-5); Platelet Count 347 K/mm3 (150-450); RBC Distribution Width CV 14.5 % (11.6-14.6); RBC Distribution Width SD 49.3 fl (35.1-43.9); Red Blood Count 4.54 M/mm3 (4.2-5.4); White Blood Count 4.0 K/mm3 (4.4-11.0)
[2025-08-12 18:47] LABS: AST(SGOT) 24 U/L (<=31); Alanine Aminotransfer ALT/SGPT 14 U/L (<=34); Albumin, Serum 4.6 g/dL (3.4-4.8); Alkaline Phosphatase 102 U/L (35-104); Anion Gap 12 (5-15); BUN 19 mg/dL (4-19); BUN/Creat Ratio 16.1 RATIO (10-20); Calcium,Total 10.0 mg/dL (7.6-11.0); Carbon Dioxide 26.8 mmol/L (21.0-32.0); Chloride 101 mmol/L (98-108); Cholesterol 260 mg/dL (<=200); Globulin 2.9 g/dL (2.2-4.2); Glucose 83 mg/dL (70-99); Low Density Lipoprotein Calc. 139 mg/dL; Potassium 4.0 mmol/L (3.3-5.1); Triglycerides 74 mg/dL; Very Low Density Lipoprotein 15 mg/dL (5-40); Vitamin D,25 Hydroxy 51.3 ng/mL (30-100); cholesterol:hdl ratio screen 2.39
== END | disposition home or self-care (01) ==
LOC: MFPLAB 14:14
PROVIDERS: PCP Family Medicine; Visit Provider Family Medicine
DX: N18.30 Chronic kidney disease, stage 3 unspecified (principal); E78.5 Hyperlipidemia, unspecified
CPT/HCPCS: 36415; 80053; 80061; 82306; 85025

== ENCOUNTER → 2025-08-13 | Outpatient (CLI) | payer MEDICARE, OTHER, SELFPAY ==
--- OUTSIDE RECORDS SUMMARY | 2025-08-13 09:18 | XMS RPT_ITS | CCD ---
Author Organization [facility] Care Team Providers Care Hand Candy Molder Name Role Phone Moira Ramsey Unavailable Stephanie Abreu Unavailable Igor Hoang Unavailable Raphael Ayala Unavailable Charu Moran Unavailable Nina Tam Unavailable [phone] [facility] Unavailable Isabella Ortiz Unavailable Unavailable Maddie Vasquez Unavailable Unavailable Zee Valderrama Unavailable Unavailable Unavailable Unavailable Dr. Maurilio Castillo Primary Care Provider [phone] Dr. Maurilio Castillo Referring Provider Dr. Giovanni Peralta Attending Provider Dr. Maurilio Castillo Primary Care Provider 1([facility] )[id number] Dr. Maurilio Castillo Referring Provider 1([facility])[phone] Hawk Yeboah Attending Provider [phone] Nicho Cabezas Attending Provider Dr. Maurilio Castillo Primary Care Provider [phone] Dr. Maurilio Castillo Referring Provider Dr. Hawk Yeboah Attending Provider Dr. Giovanni Peralta Attending Provider Dr. Maurilio Castillo Primary Care Provider 1([facility] )[id number] Dr. Maurilio Castillo Referring Provider Dr. Hawk Yeboah Attending Provider Jonathan ROCHA, Dr. Maurilio Light Primary Care Provider Jaya ROCHA, Dr. Arevalo Attending Provider [phone] Jaya ROCHA, Dr. Arevalo Referring Provider Jonathan ROCHA, Dr. Maurilio Light Attending Provider Jonathan ROCHA, Dr. Maurilio Light Referring Provider [phone] Jonathan ROCHA, Dr. Maurilio Light Primary Care Provider [phone] Jonathan ROCHA, Dr. Maurilio Light Attending Provider Jonathan ROCHA, Dr. Maurilio Light Referring Provider Maurilio Castillo Attending Unavailable Maurilio Castillo Referring Unavailable Maurilio Castillo Primary Care Unavailable Maurilio Castillo Attending Unavailable Maurilio Castillo Referring Unavailable Maurilio Castillo Primary Care Unavailable Maurilio Castillo Attending Unavailable Maurilio Castillo Referring Unavailable Maurilio Castillo Primary Care Unavailable Irina Lake Attending Unavailable Irina Lake Referring Unavailable Maurilio Castillo Primary Care Unavailable Arlene Silva Attending Unavailable Maurilio Castillo Referring Unavailable Maurilio Castillo Primary Care Unavailable Maurilio Castillo Referring Unavailable Maurilio Castillo Primary Care Unavailable Robotkita, Za Consulting Unavailable Sven Dhaliwalera Attending Unavailable Maurilio Castillo Referring Unavailable Maurilio Castillo Primary Care Unavailable Isra, Za Attending Unavailable Maurilio Castillo Attending Unavailable Maurilio Castillo Primary Care Unavailable Allergies Allergy Classification Reported Allergen(s) Allergy Type Date of Onset Reaction(s) Facility (3 sources) amLODIPine; Translations: [Norvasc *CALCIUM CHANNEL BLOCKERS*] Drug Allergy [facility] Work Phone: Comment on above: Swelling (3 sources) Amoxicillin; Translations: [Amoxil *PENICILLINS*] Drug Allergy [facility] Work Phone: (15 sources) Ciprofloxacin; Translations: [Cipro *FLUOROQUINOLONES *] Drug Allergy 1 Nausea [facility] Work Phone: Comment on above: Nausea, headache diz ziness (3 sources) Lisinopril; Translations: [LISINOPRIL, 10MG (Oral Tablet)] Drug Allergy [facility] Work Phone: Comment on above: multiple side effect s (3 sources) Risedronate; Translations: [Actonel *ENDOCRINE AND METABOLIC AGENTS - MISC.*] Drug Allergy [facility] Work Phone: Comment on above: GI upset (13 sources) Amoxicillin; Translations: [amoxicillin trihydrate] Drug Allergy 1 Rash [facility] (13 sources) Ciprofloxacin; Translations: [ciprofloxacin HCl] Drug Allergy 1 Nausea [facility] (13 sources) Penicillins; Translations: [Penicillins] Allergy to substance 1 Unknown [facility] (1 source) Ciprofloxacin Drug Allergy 5 [facility] Repository Medications Current Medications Medication Drug Class(es) Dates Sig (Normalized) Sig (Original) Calcium (13 sources) Phosphate Binder, Calcium Start: 12-13-2020 Calcium Crb,[id number] Active 2 EACH PO TWICE A DAY December 13, 2020 9:20am Start: 12-13-2020 Calcium Crb,Ci [id number] Active 2 EACH PO TWICE A DAY December 12, 2020 11:00pm Start: 12-13-2020 Calcium Crb,Ci [id number] Active 2 EACH PO TWICE A DAY December 13, 2020 12:00am Start: 07-01-2007 End: 07-19-2009 take 2 tablets by mouth once daily CALCIUM, 500MG (Oral Tablet) 2 QD for 0 days Refills: 0 Ordered: 01-Jul-2007 Isabella Ortiz LPN Start : 01-Jul-2007 End : 19-Jul-2009 Inactive calcium citrate 950 mg oral tablet (2 sources) Start: 02-16-2024 take 1 tablet by mouth twice daily Calcium Citrate 200 mg (950 mg) tablet Active 200 mg PO TWICE A DAY February 16, 2024 12:00am camphor 0.002 mg/mg / menthol 0.035 mg/mg topical gel (2 sources) Start: 07-08-2024 Camphor-Mentho l (Arctic Relief) 0.2-3.5 % gel Active 1 NMA TOPICAL DAILY as needed for muscle pain July 08, 2024 1:00am rub in gently and completely DULoxetine 60 mg delayed release oral capsule (20 sources) Serotonin and Norepinephrine Reuptake Inhibitor Start: 09-09-2020 Duloxetine 60 MG capsule Active 90 mg PO DAILY September 09, 2020 5:08pm Start: 09-09-2020 take 90 mg by mouth once daily Duloxetine Active 90 MG PO DAILY September 09, 2020 5:08pm Start: 09-09-2020 End: 09-09-2020 take 2 capsules by mouth once daily Duloxetine 60 MG capsule Discontinued 120 mg PO DAILY September 09, 2020 1:00am September 09, 2020 5:08pm Start: 09-09-2020 End: 09-09-2020 take 120 mg by mouth once daily Duloxetine Discontinue d 120 MG PO DAILY September 09, 2020 1:00am September 09, 2020 5:08pm Start: 08-26-2018 take 1 capsule by [facility] once daily DULoxetine HCl 60 MG Oral Capsule Delayed Release Particles 1 (one) Capsule qd for 90 days Quantity: 90 {Capsule} Refills: 3 Ordered: 26-Aug-2018 Moira Ramsey DO, DO, Kathleen Start : 26-Aug-2018 Active Comments: Mail order. Start: 07-02-2018 take 1 capsule by mo [facility] once daily DULoxetine HCl 60 MG Oral Capsule Delayed Release Particles 1 (one) Capsule qd for 0 days Quantity: 30 {Capsule} Refills: 3 Ordered: 02-Jul-2018 Moira Ramsey DO, DO, Kathleen Start : 02-Jul-2018 Active Start: 03-11-2017 End: 09-09-2020 take 3 capsules by mouth once daily Duloxetine 30 MG capsule Discontinued 90 mg PO DAILY March 11, 2017 12:00am September 09, 2020 11:43am Start: 03-11-2017 End: 09-09-2020 take 90 mg by mouth once daily Duloxetine Discontinued 90 MG PO DAILY March 11, 2017 12:00am September 09, 2020 11:43am Comment on above: Mail order. fexofenadine hydrochloride 60 mg oral tablet (2 sources) Histamine-1 Receptor Antagonist Start: take 1 tablet by mouth twice daily as needed Fexofenadine (Jessica Allergy) 60 mg tablet Active 60 mg PO TWICE A DAY as needed for ALLERGIES February 16, 2024 12:00am omeprazole 40 mg / sodium bicarbonate 1100 mg oral capsule (20 sources) Proton Pump Inhibitor Start: Omeprazole-Sodium Bicarbonate 1 EACH capsule Active 40 NMA PO DAILY December 13, 2020 12:00am Start: 12-13-2020 Omeprazole-Sod ium Bicarbonate Active 40 EACH PO DAILY December 13, 2020 12:00am Start: 09-28-2020 End: 10-04-2020 Omeprazole-Sodium Bicarbonat e 1 EACH capsule Discontinued 1 NMA PO DAILY September 28, 2020 1:00am October 04, 2020 11:27am Start: 09-28-2020 End: 10-04-2020 Omeprazole-Sodium Bicarbonat e Discontinued 1 EACH PO DAILY September 28, 2020 1:00am October 04, 2020 11:27am Start: 09-07-2020 End: 09-09-2020 Omeprazole-Sodium Bicarbonat e 1 EACH capsule Discontinued 40 NMA PO DAILY September 07, 2020 1:00am September 09, 2020 11:47am Start: 09-07-2020 End: 09-09-2020 Omeprazole-Sodium Bicarbonat e Discontinued 40 EACH PO DAILY September 07, 2020 1:00am September 09, 2020 11:47am Start: 08-24-2018 take 1 capsule by mo [facility] once daily Zegerid 40-1100 MG Oral Capsule 1 cap Capsule qd for 90 days Quantity: 90 {Capsule} Refills: 3 Ordered: 24-Aug-2018 Moira Ramsey DO, DO, Kathleen Start : 24-Aug-2018 Active Comments: Mail order. Needs the omeprazole with Bicarb in it Start: 08-29-2016 End: 10-30-2016 take 1 capsule by mouth once daily Zegerid 40-1100 MG Oral Capsule 1 cap Capsule qd for 90 days Quantity: 90 {Capsule} Refills: 3 Ordered: 30-Oct-2016 Isabella Ortiz LPN Start : 29-Aug-2016 End : 30-Oct-2016 Inactive Comments: Mail order. Needs the omeprazole with Bicarb in it Start: 09-05-2015 End: 09-09-2020 take 40-1100 mg by mouth once daily Zegerid 40 mg Capsule Discontinued 40 - 1100 MG PO DAILY September 05, 2015 10:34am September 09, 2020 11:47am Start: 09-05-2015 End: 09-09-2020 take 40-1100 mg by mouth once daily Zegerid 40 mg Capsule tablet Discontinued 40 - 1100 mg PO DAILY September 05, 2015 1:00am September 09, 2020 11:47am Start: 09-05-2015 End: 09-09-2020 take 40-1100 mg by mouth once daily Zegerid 40 mg Capsule Discontinued 40 - 1100 MG PO DAILY September 05, 2015 12:00am September 09, 2020 10:47am Start: 09-05-2015 End: 09-09-2020 take 40-1100 mg by mouth once daily Zegerid 40 mg Capsule Discontinued 40 - 1100 MG PO DAILY September 05, 2015 1:00am September 09, 2020 11:47am Comment on above: Needs the omeprazole with Bicarb in it Mail order. Needs th e omeprazole with Bicarb in it polyethylene glycol 3350 57706 mg powder for oral solution (17 sources) Osmotic Laxative Start: 12-22-2023 Polyethylene Glycol 3350 (Miralax) 17 gram powder in packet Active 17 g PO DAILY December 22, 2023 12:00am Start: 09-21-2020 End: 10-04-2020 take 17 g by mouth once daily Polyethylene Glycol 3350 17 GM packet Discontinued 17 g PO DAILY September 21, 2020 1:00am October 04, 2020 11:29am take 1 scoop(s) by m outh once daily in the evening as needed MIRALAX (Oral Powder) 1 scoop q evening, prn Inactive Vibegron (2 sources) Start: 07-08-2024 take 1 tablet by sandra th once daily Vibegron (Gemtesa) 75 mg tablet Active 75 mg PO DAILY July 08, 2024 1:00am Completed/Discontinued Medications Medication Drug Class(es) Dates Sig (Normalized) Sig (Original) acetaminophen 500 mg oral tablet (20 sources) Start: 09-21-2020 End: 10-04-2020 take 2 tablets by mouth every six hours as needed for pain Acetaminophen 500 MG tablet Discontinued 1000 mg PO EVERY 6 HOURS NEEDED as needed for Pain Score 1-3 September 21, 2020 1:00am October 04, 2020 11:29am Start: 09-21-2020 End: 10-04-2020 take 1000 mg by mouth every six hours as needed Acetaminophen Discontinued 1000 MG PO EVERY 6 HOURS NEEDED September 21, 2020 1:00am October 04, 2020 11:29am Start: 09-09-2020 End: 09-21-2020 Acetaminophen 325 MG tablet Discontinued 650 mg PO EVERY 6 HOURS NEEDED as needed for Pain Score 1-10/Temp > 100.7 F September 09, 2020 1:00am September 21, 2020 7:55pm Start: 09-09-2020 End: 09-21-2020 take 650 mg by mouth every six hours as needed Acetaminophen Discontinued 650 MG PO EVERY 6 HOURS NEEDED September 09, 2020 1:00am September 21, 2020 7:55pm acetaminophen 325 mg / HYDROcodone bitartrate 5 mg oral tablet (3 sources) Opioid Agonist Start: 01-23-2015 End: 10-03-2015 take 1 tablet by mouth every six hours as needed HYDROCODONE-ACETAMINOPHEN, 5-325MG (Oral Tablet) 1 (one) Tablet Tablet q 6 hours prn for 0 days Quantity: 60 {Tablet} Refills: 0 Ordered: 03-Oct-2015 Jenn Giron Start : 23-Jan-2015 End : 03-Oct-2015 Discontinued Comments: Dr Sanford manages Comment on above: Dr Sanford manages acetaminophen 325 mg / oxyCODONE hydrochloride 5 mg oral tablet (12 sources) Opioid Agonist Start: 08-15-2020 End: 08-18-2020 Oxycodone-Acetaminophen 1 TABLET tablet Discontinued 1 {tbl} PO EVERY 6 HOURS NEEDED as needed for Pain 07 27August 15, 2020 August 17, 2020 1:00am August 18, 2020 1:03am Start: 08-15-2020 End: 08-18-2020 take 1 tablet by mouth every six hours as needed Oxycodone-Acetaminophen Discontinued 1 TABLET PO EVERY 6 HOURS NEEDED 12 August 15, 2020 August 18, 2020 1:03am aliskiren 150 mg oral tablet (3 sources) Renin Inhibitor Start: 02-08-2008 End: 03-30-2008 take 1 tablet by mouth once daily TEKTURNA, 150MG (Oral Tablet) 1 (one) Tablet qd for 0 days Refills: 0 Ordered: 31-Mar-2008 Phyllis Tolbert DO Start : 08-Feb-2008 End : 30-Mar-2008 Discontinued Ascorbic Acid (3 sources) Vitamin C take 1 tablet by mouth once daily VITAMIN C (PO Tab) 1 qd for 0 days Refills: 0 Ordered: 02-Jul-2013 Jenn Giron Active aspirin 81 mg oral tablet (3 sources) Platelet Aggregation Inhibitor, Nonsteroidal Anti-inflammatory Drug Start: 10-29-2013 take 1 tablet by mouth once daily ASPIRIN LOW DOSE, 81MG (Oral Tablet) 1 (one) Tablet daily for 30 days Quantity: 30 {Tablet} Refills: 0 Ordered: 29-Oct-2013 Phyllis Tolbert DO Start : 29-Oct-2013 Active azithromycin 250 mg oral tablet (8 sources) Macrolide Antimicrobial Start: 02-16-2024 End: 04-30-2024 Azithromycin 250 mg tablet Discontinued 250 mg PO daily February 16, 2024 12:00am April 30, 2024 6:04pm 2 tablets today, then 1 tablet daily on days 2 through 5 Start: 11-19-2017 End: 11-24-2017 take 1 tablet by mouth once daily Azithromycin 500 MG Oral Tablet 1 (one) Tablet qd for 5 days Quantity: 5 {Tablet} Refills: 0 Ordered: 19-Nov-2017 Moira Ramsey DO, DO, Kathleen Start : 19-Nov-2017 End : 24-Nov-2017 Inactive Start: 10-23-2015 End: 11-21-2015 ZITHROMAX Z-SONJA, 250MG (Oral Tablet) 1 Tablet TAD for 0 days Quantity: 1 {Package} Refills: 0 Ordered: 21-Nov-2015 Jenn Giron Start : 23-Oct-2015 End : 21-Nov-2015 Discontinued BELLADONNA ALK-PHENOBARBITAL, 16.2MG (Oral Tablet) (3 sources) End: 01-08-2011 take 1 tablet by mouth every four hours as needed for pain BELLADONNA ALK-PHENOBARBITAL, 16.2MG (Oral Tablet) 1 tab q 4hrs, prn for pain (16.2 MG) End : 08-Jan-2011 Discontinued Comments: Jmaie Comment on above: Jamie bifidobacterium infantis 4 mg oral capsule (3 sources) Start: 01-07-2017 take 1 capsule by mouth once daily Align Oral Capsule 1 (one) Capsule daily for 0 days Quantity: 30 {Capsule} Refills: 0 Ordered: 07-Jan-2017 Leno ESCOBEDO Jocy Start : 07-Jan-2017 Active budesonide 0.032 mg/actuat metered dose nasal spray (3 sources) Corticosteroid Start: 04-14-2008 End: 04-21-2008 RHINOCORT AQUA, 32MCG/ACT (Nasal Suspension) Suspension 1 squirt each nostril daily for 7 days Refills: 0 Ordered: 14-Apr-2008 Leno ESCOBEDO Jocy Start : 14-Apr-2008 End : 21-Apr-2008 Inactive calcium carbonate 500 mg chewable tablet (12 sources) Start: 09-28-2020 End: 10-04-2020 take 1 tablet by mouth every six hours as needed for gastroesophageal reflux disease Calcium Carbonate 500 MG tablet Discontinued 500 mg PO EVERY 6 HOURS NEEDED as needed for GERD September 28, 2020 1:00am October 04, 2020 11:29am calcium carbonate 1250 mg / cholecalciferol 1000 unt / vitamin k 0.4 mg chewable tablet (12 sources) Vitamin D Start: 09-05-2015 End: 10-04-2020 take 1 tablet by mouth twice daily Calcium-Vitamin D3-Vitamin K 1 EACH tablet,chewable Discontinued 400 U PO TWICE A DAY September 05, 2015 1:00am October 04, 2020 11:29am calcium citrate 1190 mg / vitamin d 200 unt oral tablet (3 sources) take 2 tablets by mouth once daily CITRACAL/VITAMIN D, [id number] (Oral Tablet) 2 tabs qd for 0 days Refills: 0 Ordered: 07-Mar-2010 Jenn Giron Active Calcium Crb,[id number]-[id number]-Gen is 1 EACH tablet (2 sources) Start: 12-13-2020 End: 02-16-2024 take 1 tablet by mouth twice daily Calcium Crb,Zrn-[id number]-Ge nis 1 EACH tablet Discontinued 2 NMA PO TWICE A DAY December 13, 2020 12:00am February 16, 2024 8:53am cefuroxime 250 mg oral tablet (3 sources) Cephalosporin Antibacterial Start: 04-14-2008 End: 04-21-2008 take 1 tablet by mouth twice daily CEFTIN, 250MG (Oral Tablet) 1 (one) Tablet bid for 7 days Refills: 0 Ordered: 14-Apr-2008 Mariaelena Burr CNP Start : 14-Apr-2008 End : 21-Apr-2008 Inactive cetirizine hydrochloride 10 mg oral tablet (3 sources) Histamine-1 Receptor Antagonist End: 07-19-2009 take 1 tablet by mouth once daily ZYRTEC, 10MG (Oral Tablet) 1 tab qd for 0 days Refills: 0 Ordered: 19-Jul-2009 Isabella Ortiz LPN End : 19-Jul-2009 Inactive cholecalciferol 2000 unt oral capsule (6 sources) Vitamin D Start: 08-29-2016 take 2 capsules by mouth once daily Vitamin D3 2000 UNIT Oral Capsule 2 (two) Capsule daily for 30 days Quantity: 30 {Capsule} Refills: 0 Ordered: 29-Aug-2016 Moira Ramsey DO, DO, Kathleen Start : 29-Aug-2016 Active Start: 10-22-2010 End: 11-21-2010 VITAMIN D3, 1000UNIT (Oral T ablet) 4 tabs Tablet qd for 30 days Quantity: 120 {Tablet} Refills: 0 Ordered: 22-Oct-2010 Jenn Giron Start : 22-Oct-2010 End : 21-Nov-2010 Inactive cholecalciferol 500 unt / folic acid 1 mg oral tablet (12 sources) Vitamin D Start: 03-11-2017 End: 09-21-2020 take 2 tablets by mouth twice daily Vitamin D3-Folic Acid 500 UNIT tablet Discontinued 1000 U PO TWICE A DAY March 11, 2017 12:00am September 21, 2020 7:59pm Start: 03-11-2017 End: 09-21-2020 take 1000 [IU] by mouth twice daily Vitamin D3-Folic Acid Discontinued 1000 UNIT PO TWICE A DAY March 11, 2017 12:00am September 21, 2020 7:59pm citalopram 20 mg oral tablet (3 sources) Serotonin Reuptake Inhibitor Start: 10-03-2015 End: 10-03-2015 take 1 tablet by mouth once daily CELEXA, 20MG (Oral Tablet) 1 (one) Tablet daily for 90 days Quantity: 90 {Tablet} Refills: 3 Ordered: 03-Oct-2015 Jenn Giron Start : 03-Oct-2015 End : 03-Oct-2015 Discontinued Comments: Mail order. Comment on above: Mail order. clarithromycin 500 mg oral tablet (6 sources) Macrolide Antimicrobial Start: 11-03-2014 End: 11-10-2014 take 2 tablets by mouth once daily BIAXIN XL PAC, 500MG (Oral Tablet Extended Release 24 Hour) 2 (two) Tablet ER 24HR daily for 7 days Quantity: 14 {Tablet} Refills: 0 Ordered: 03-Nov-2014 Moira Ramsey DO, DO, Kathleen Start : 03-Nov-2014 End : 10-Nov-2014 Inactive Start: 05-08-2012 End: 05-18-2012 take 1 tablet by mouth twice daily BIAXIN, 500MG (Oral Tablet) 1 Tablet bid for 10 days Quantity: 20 {Tablet} Refills: 0 Ordered: 08-May-2012 Moira Ramsey DO, DO, Kathleen Start : 08-May-2012 End : 18-May-2012 Inactive clindamycin 300 mg oral capsule (3 sources) Lincosamide Antibacterial Start: 09-24-2017 take 2 capsules by mouth every hour Clindamycin HCl 300 MG Oral Capsule 2 (two) Capsule Capsule one hour prior prior to dental work for 0 days Quantity: 2 {Capsule} Refills: 5 Ordered: 24-Sep-2017 Kenia Medina Start : 24-Sep-2017 Active coenzyme q10 100 mg oral capsule (3 sources) Start: 07-18-2014 End: 05-16-2016 take 1 capsule by mouth once daily Co Q 10 100 MG Oral Capsule 1 (one) Capsule qd for 30 days Refills: 0 Ordered: 16-May-2016 Isabella Ortiz LPN Start : 18-Jul-2014 End : 16-May-2016 Inactive colesevelam hydrochloride 3750 mg powder for oral suspension (3 sources) Bile Acid Sequestrant Start: 09-24-2011 End: 09-24-2011 take 1 dose by mouth once in the morning WELCHOL, 3.75GM (Oral Packet) 1 Packet packet q am with 8 oz of water for 0 days Quantity: 30 {Packet} Refills: 3 Ordered: 24-Sep-2011 Phyllis Tolbert DO Start : 24-Sep-2011 End : 24-Sep-2011 Discontinued docusate sodium 50 mg / sennosides, long-term 8.6 mg oral tablet (20 sources) Start: 12-13-2020 End: 12-22-2023 Sennosides-Docusa te Sodium 1 EACH tablet Discontinued 1 NMA PO TWICE A DAY December 13, 2020 12:00am December 22, 2023 2:03pm Start: 12-13-2020 Sennosides-Doc usate Sodium Active 1 EACH PO TWICE A DAY December 13, 2020 12:00am Start: 09-09-2020 End: 10-13-2020 Sennosides-Docusate Sodium 1 TABLET tablet Discontinued 2 {tbl} PO TWICE DAILY NEEDED as needed for Constipation 120 September 21, 2020 7:59pm October 13, 2020 12:17pm Start: 09-09-2020 End: 10-13-2020 take 2 tablets by mouth twice daily as needed Sennosides-Docusate Sodium Discontinued 2 TABLET PO TWICE DAILY NEEDED 120 September 21, 2020 7:59pm October 13, 2020 12:17pm ergocalciferol 97727 unt oral capsule (3 sources) Provitamin D2 Compound Start: 01-18-2009 End: 03-20-2011 take 1 capsule by mouth two times weekly ERGOCALCIFEROL, [id number] (Oral Capsule) 1 (one) Capsule BIW for 0 days Quantity: 8 {Capsule} Refills: 3 Ordered: 20-Mar-2011 Phyllis Tolbert DO Start : 18-Jan-2009 End : 20-Mar-2011 Inactive exemestane 25 mg oral tablet (3 sources) Aromatase Inhibitor Start: 03-07-2010 End: 06-01-2010 take 1 tablet by mouth once daily AROMASIN, 25MG (Oral Tablet) 1 (one) Tablet qd for 0 days Quantity: 30 {Tablet} Refills: 0 Ordered: 01-Jun-2010 Aruna Maria Start : 07-Mar-2010 End : 01-Jun-2010 Inactive Comments: per gasper Comment on above: per gasper ezetimibe 10 mg oral tablet (3 sources) Dietary Cholesterol Absorption Inhibitor Start: 12-23-2011 End: 12-23-2011 take 1 tablet by mouth once daily ZETIA, 10MG (Oral Tablet) 1 Tablet qd for 0 days Quantity: 30 {Tablet} Refills: 3 Ordered: 23-Dec-2011 Fast Phyllis ACOSTA Start : 23-Dec-2011 End : 23-Dec-2011 Discontinued famotidine 20 mg oral tablet (15 sources) Histamine-2 Receptor Antagonist Start: 10-13-2020 End: 10-28-2020 take 1 tablet by mouth twice daily Famotidine 20 MG tablet Discontinued 20 mg PO TWICE A DAY October 13, 2020 1:00am October 28, 2020 9:58am Start: 02-26-2017 End: 05-21-2018 take 1 tablet by mouth once daily in the evening Pepcid 20 MG Oral Tablet 1 (one) Tablet q evening for 90 days Quantity: 90 {Tablet} Refills: 3 Ordered: 21-May-2018 Isabella Ortiz LPN Start : 26-Feb-2017 End : 21-May-2018 Inactive Comments: Mail order. Comment on above: Mail order. ferrous sulfate 28 mg oral tablet (3 sources) take 1 tablet by mouth once daily Iron 28 MG Oral Tablet 1 qd (28 MG) Active 12 hr fexofenadine hydrochloride 60 mg / pseudoephedrine hydrochloride 120 mg extended release oral tablet (6 sources) alpha-Adrenergic Agonist, Histamine-1 Receptor Antagonist Start: 8 End: 8 take 60-120 mg by mouth twice daily JESSICA-D 12 HOUR, 60-120MG (Oral Tablet Extended Release 12 Hour) 1 Tablet ER 12HR bid for 5 days Quantity: 20 {Tablet_ER_12HR} Refills: 0 Ordered: 14-Apr-2008 Mariaelena Burr CNP Start : 14-Apr-2008 End : 19-Apr-2008 Inactive Start: 03-27-2007 End: 09-30-2007 take 60-120 mg by mouth every twelve hours in the morning JESSICA-D 12 HOUR, 60-120MG (Oral Tablet Extended Release 12 Hour) 1 (one) Tablet ER 12HR qam for 0 days Quantity: 2 {Tablet_ER_12HR} Refills: 0 Ordered: 27-Mar-2007 Nancy Morris LPN Start : 27-Mar-2007 End : 30-Sep-2007 Discontinued flurbiprofen sodium 0.3 mg/ml ophthalmic solution (3 sources) Nonsteroidal Anti-inflammatory Drug OCUFEN, 0.03% (Ophthalmic Solution) 2 gtts q6hr x 7 days for 0 days Refills: 0 Ordered: 01-Sep-2009 Mary Bush LPN Inactive gabapentin 400 mg oral capsule (20 sources) Anti-epileptic Agent Start: End: take 1 capsule by mouth three times daily at mealtime Gabapentin 400 MG capsule Discontinued 400 mg PO 3 TIMES DAILY WITH MEALS October 13, 2020 6:14pm October 30, 2020 10:48am Start: 09-09-2020 End: 09-21-2020 Gabapentin 300 MG capsule Discontinued 400 mg PO 3 TIMES DAILY WITH MEALS September 09, 2020 5:08pm September 21, 2020 7:56pm Start: 09-09-2020 End: 09-21-2020 take 400 mg by mouth three times daily at mealtime Gabapentin Discontinued 400 MG PO 3 TIMES DAILY WITH MEALS September 09, 2020 5:08pm September 21, 2020 7:56pm Start: 05-21-2018 End: 09-09-2020 take 1 capsule by mouth once daily Gabapentin (Neurontin) 400 MG capsule Discontinued 400 mg PO DAILY September 16, 2018 1:00am September 09, 2020 11:43am Start: 03-20-2015 End: 10-03-2015 take 1 capsule by mouth twice daily GABAPENTIN, 300MG (Oral Capsule) 1 (one) Capsule bid for 0 days Quantity: 60 {Capsule} Refills: 3 Ordered: 03-Oct-2015 Jenn Giron Start : 20-Mar-2015 End : 03-Oct-2015 Discontinued Comments: Dr Sanford Comment on above: Dr Sanford hyoscyamine sulfate 0.125 mg oral tablet (3 sources) Start: 11-04-19 End: 12-28-19 take 1 tablet by mouth three times daily as needed LEVSIN, 0.125MG (Oral Tablet) 1 Tablet tid prn for 0 days Quantity: 60 {Tablet} Refills: 0 Ordered: 27-Dec-2013 Jenn Giron Start : 04-Nov-2011 End : 27-Dec-2013 Discontinued inulin 200 mg / lactobacillus rhamnosus gg [id number] unt oral capsule (3 sources) take 1 capsule by mouth once daily [facility] (Oral Capsule) 1 cap qd Inactive levoFLOXacin 500 mg oral tablet (3 sources) Quinolone Antimicrobial Start: 11-15-19 15 End: 11-22-19 15 take 1 tablet by mouth once daily LEVAQUIN, 500MG (Oral Tablet) 1 (one) Tablet daily for 7 days Quantity: 7 {Tablet} Refills: 0 Ordered: 14-Nov-2014 Phyllis Tolbert DO Start : 14-Nov-2014 End : 21-Nov-2014 Inactive Comments: tolerates levaquin Comment on above: tolerates levaquin lidocaine hydrochloride 40 mg/ml topical cream (12 sources) Antiarrhythmic, Amide Local Anesthetic Start: 09-07-19 21 End: 09-09-19 21 Lidocaine Hcl 76.5 GM cream Discontinued 76.5 g TP DAILY as needed for Pain 1-10 Or Fever September 07, 2020 1:00am September 09, 2020 11:47am lisinopril 5 mg oral tablet (3 sources) Angiotensin Converting Enzyme Inhibitor Start: 10-22-19 11 End: 10-22-19 11 take 0.5 tablet by mouth once daily LISINOPRIL, 5MG (Oral Tablet) 1/2 Tablet qd for 30 days Quantity: 30 {Tablet} Refills: 3 Ordered: 22-Oct-2010 Phyllis Tolbert DO Start : 22-Oct-2010 End : 22-Oct-2010 Discontinued magnesium citrate 200 mg oral tablet (3 sources) take 2 tablets by mouth once daily Magnesium Citrate 200 MG Oral Tablet 2 qd (200 MG) Active magnesium oxide 400 mg oral tablet (15 sources) Start: 03-11-20 17 End: 09-09-19 21 take 1 tablet by mouth once daily Magnesium Oxide 400 MG tablet Discontinued 400 mg PO DAILY March 11, 2017 12:00am September 09, 2020 11:47am Start: 08-29-2016 End: 05-21-2018 take 1 tablet by mouth once daily Magnesium Oxide 250 MG Oral Tablet 1 (one) Tablet qd for 0 days Quantity: 60 {Tablet} Refills: 0 Ordered: 21-May-2018 Isabella Ortiz LPN Start : 29-Aug-2016 End : 21-May-2018 Inactive meclizine hydrochloride 25 mg oral tablet (3 sources) Antiemetic Start: 07-02-2018 take 1 tablet by mouth every eight hours as needed Meclizine HCl 25 MG Oral Tablet 1 (one) Tablet q 8hr prn dizzy for 30 days Quantity: 30 {Tablet} Refills: 4 Ordered: 02-Jul-2018 Roxy ACOSTA MoiraMoira Khan DO Start : 02-Jul-2018 Active meloxicam 15 mg oral tablet (3 sources) Nonsteroidal Anti-inflammatory Drug Start: 12-29-2012 End: 12-29-2012 take 1 tablet by mouth once daily at mealtime MELOXICAM, 15MG (Oral Tablet) 1 Tablet daily for 0 days Quantity: 30 {Tablet} Refills: 0 Ordered: 29-Dec-2012 Phyllis Tolbert DO Start : 29-Dec-2012 End : 29-Dec-2012 Discontinued Comments: with food Comment on above: with food methocarbamol 750 mg oral tablet (20 sources) Muscle Relaxant Start: 09-09-2020 End: 10-13-2020 take 1 tablet by mouth three times daily as needed for muscle spasms Methocarbamol 750 MG tablet Discontinued 750 mg PO 3 TIMES DAILY NEEDED as needed for Muscle Spasm 90 September 21, 2020 1:00am October 13, 2020 12:15pm Start: 09-16-2018 End: 09-09-2020 Methocarbamol 500 MG tablet Discontinued 500 mg PO NEEDED as needed for Spasms September 16, 2018 1:00am September 09, 2020 11:47am methylPREDNISolone 4 mg oral tablet (3 sources) Corticosteroid Start: 10-05-2014 End: 11-03-2014 MEDROL (SONJA), 4MG (Oral Tablet) 1 (one) Tablet TAD for 0 days Quantity: 1 {Package} Refills: 0 Ordered: 03-Nov-2014 Isabella Ortiz LPN Start : 05-Oct-2014 End : 03-Nov-2014 Inactive 2 ml metoclopramide 5 mg/ml prefilled syringe (3 sources) Dopamine-2 Receptor Antagonist End: 12-17-2006 METOCLOPRAMIDE HCL, 5MG/ML (Injection Solution) 1 Tablet QD for 0 days Refills: 0 Ordered: 05-Oct-2007 Nancy Morris LPN End : 17-Dec-2006 Discontinued metoprolol tartrate 25 mg oral tablet (3 sources) beta-Adrenergic Sean Start: 11-20-2016 End: 11-20-2016 take 0.5 tablet by mouth twice daily Metoprolol Tartrate 25 MG Oral Tablet 1/2 (one half) Tablet bid for 30 days Quantity: 30 {Tablet} Refills: 0 Ordered: 20-Nov-2016 Roxy ACOSTA Moira Ramsey DO Moira Start : 20-Nov-2016 End : 20-Nov-2016 Discontinued 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: 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 , 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 Comment on above: weaver , tired metroNIDAZOLE 500 mg oral tablet (3 sources) Nitroimidazole Antimicrobial Start: 01-08-2011 End: 01-08-2011 take 1 tablet by mouth three times daily FLAGYL, 500MG (Oral Tablet) 1 Tablet tid for 0 days Quantity: 30 {Tablet} Refills: 0 Ordered: 08-Jan-2011 Jenn Giron Start : 08-Jan-2011 End : 08-Jan-2011 Discontinued mometasone furoate 0.05 mg/actuat metered dose nasal spray (3 sources) Corticosteroid Start: 01-03-2010 End: 06-01-2010 NASONEX, 50MCG/ACT (Nasal Suspension) 2 sprays qd for 0 days Refills: 0 Ordered: 01-Jun-2010 Aruna Maria Start : 03-Jan-2010 End : 01-Jun-2010 Inactive Multivitamin preparation (3 sources) End: 07-19-2009 take 1 mg by mouth once daily MULTIVITAMIN (PO Tab) 1 qd for 0 days Refills: 0 Ordered: 19-Jul-2009 Isabella Ortiz LPN End : 19-Jul-2009 Inactive Comments: 200 mg Comment on above: 200 mg ofloxacin 3 mg/ml ophthalmic solution (3 sources) Quinolone Antimicrobial Start: 09-05-2009 End: 06-01-2010 OCUFLOX, 0.3% (Ophthalmic Solution) 2 gtts q 6hr x 7 days for 0 days Refills: 0 Ordered: 01-Jun-2010 Samara Mariati Start : 05-Sep-2009 End : 01-Jun-2010 Inactive olopatadine 2 mg/ml ophthalmic solution (3 sources) Histamine-1 Receptor Inhibitor Start: 03-25-2012 End: 11-03-2014 PATADAY, 0.2% (Ophthalmic Solution) 1 Solution qd both eyes for 0 days Quantity: 1 {Solution} Refills: 3 Ordered: 03-Nov-2014 Isabella Ortiz LPN Start : 25-Mar-2012 End : 03-Nov-2014 Inactive Comments: lb family eye rx Comment on above: bl family eye r x ondansetron 4 mg disintegrating oral tablet (3 sources) Serotonin-3 Receptor Antagonist Start: 01-08-2011 End: 01-08-2011 take 1 tablet by mouth three times daily as needed ZOFRAN ODT, 4MG (Oral Tablet Dispersible) 1 Tablet Disperse tid prn for 0 days Quantity: 30 {Tablet_Disperse} Refills: 0 Ordered: 08-Jan-2011 Jenn Giron Start : 08-Jan-2011 End : 08-Jan-2011 Discontinued oseltamivir 75 mg oral capsule (3 sources) Neuraminidase Inhibitor Start: 09-02-2012 End: 09-07-2012 take 1 capsule by mouth twice daily TAMIFLU, 75MG (Oral Capsule) 1 Capsule bid for 5 days Quantity: 10 {Capsule} Refills: 0 Ordered: 02-Sep-2012 Leno ESCOBEDOMariaelena Start : 02-Sep-2012 End : 07-Sep-2012 Inactive oxyCODONE hydrochloride 5 mg oral tablet (20 sources) Opioid Agonist Start: 10-13-2020 End: 10-28-2020 take 1 tablet by mouth every four hours as needed for pain Oxycodone 5 MG tablet Discontinued 5 mg PO EVERY 4 HOURS NEEDED as needed for Pain Score 1-10 October 13, 2020 1:00am October 28, 2020 9:59am Start: 09-09-2020 End: 09-21-2020 take 5-10 mg by mouth every four hours as needed for pain Oxycodone 5 MG tablet Discontinued 5 - 10 mg PO EVERY 4 HOURS NEEDED as needed for Pain Score 1-10 14 7 September 21, 2020 September 15, 2020 1:00am September 21, 2020 7:57pm 5-10 pantoprazole 40 mg delayed release oral tablet (20 sources) Proton Pump Inhibitor Start: 09-09-2020 End: 09-21-2020 take 1 tablet by mouth once daily Pantoprazole 40 MG tablet Discontinued 40 mg PO DAILY September 09, 2020 5:08pm September 21, 2020 7:59pm Start: 01-18-2009 End: 01-18-2009 take 1 tablet by mouth once daily PROTONIX, 40MG (Oral Tablet Delayed Release) 1 (one) Tablet DR Daily for 0 days Quantity: 90 {Tablet_DR} Refills: 3 Ordered: 18-Jan-2009 Tomasz ACOSTAPhyllis Start : 18-Jan-2009 End : 18-Jan-2009 Discontinued Comments: ineffective Comment on above: ineffective 24 hr PARoxetine hydrochloride 25 mg extended release oral tablet (3 sources) Serotonin Reuptake Inhibitor Start: 03-20-20 11 End: 03-20-20 11 take 1 tablet by mouth once daily PAXIL CR, 25MG (Oral Tablet Extended Release 24 Hour) 1 Tablet ER 24HR QD for 0 days Quantity: 90 {Tablet_ER_24HR} Refills: 3 Ordered: 20-Mar-2011 Tomasz ACOSTAPhyllis Start : 20-Mar-2011 End : 20-Mar-2011 Discontinued pravastatin sodium 10 mg oral tablet (3 sources) HMG-CoA Reductase Inhibitor Start: 08-29-19 15 End: 11-04-19 15 take 1 tablet by mouth once daily PRAVASTATIN SODIUM, 10MG (Oral Tablet) 1 (one) Tablet Tablet qd for 30 days Quantity: 30 {Tablet} Refills: 3 Ordered: 03-Nov-2014 Isabella Ortiz LPN Start : 29-Aug-2014 End : 03-Nov-2014 Inactive predniSONE 20 mg oral tablet (20 sources) Start: 09-09-19 21 End: 09-21-19 21 Prednisone 20 MG tablet Discontinued 20 mg PO DIRECTED September 09, 2020 5:08pm September 21, 2020 7:59pm With Food 20 mg twice daily for 4 days, then 20 mg daily for 4 days, then stop promethazine hydrochloride 25 mg oral tablet (6 sources) Phenothiazine Start: 09-15-19 13 End: 12-28-19 14 take 1 tablet by mouth four times daily as needed PROMETHAZINE HCL, 25MG (Oral Tablet) 1 Tablet qid prn for 0 days Quantity: 20 {Tablet} Refills: 0 Ordered: 27-Dec-2013 Jenn Giron Start : 15-Sep-2012 End : 27-Dec-2013 Discontinued Comments: will sedate End: 06-01-2010 take 1 tablet by mouth every eight hours PHENERGAN, 25MG (Oral Tablet) 1 q 8hr for 0 days Refills: 0 Ordered: 01-Jun-2010 Aruna Maria End : 01-Jun-2010 Discontinued Comments: This order discontinued per [facility]. Comment on above: will sedate This order discontin ued per [facility]. psyllium 400 mg oral capsule (12 sources) Start: 12-14-19 End: 12-22-19 24 Psyllium Husk 0.4 GM capsule Discontinued 0.4 g PO DAILY December 13, 2020 12:00am December 22, 2023 2:03pm red yeast rice 600 mg oral capsule (3 sources) End: 03-30-20 08 take 2 capsules by mouth once daily RED YEAST RICE EXTRACT, 600MG (Oral Capsule) 2 QD for 0 days Refills: 0 Ordered: 31-Mar-2008 Jenn Giron End : 30-Mar-2008 Discontinued rosuvastatin calcium 10 mg oral tablet (12 sources) HMG-CoA Reductase Inhibitor Start: 04-10-20 End: 04-30-20 24 take 1 tablet by mouth at bedtime Rosuvastatin 10 mg tablet Discontinued 10 mg PO AT BEDTIME April 10, 2021 12:00am April 30, 2024 6:04pm simvastatin 10 mg oral tablet (15 sources) HMG-CoA Reductase Inhibitor Start: 06-08-20 18 take 0.5 tablet by mouth once daily Simvastatin 10 MG Oral Tablet 1/2 Tablet daily for 90 days Quantity: 90 {Tablet} Refills: 3 Ordered: 08-Jun-2018 Moira Ramsey DO, DO, Kathleen Start : 08-Jun-2018 Active Comments: Mail order. Start: 09-05-2015 End: 02-26-2019 take 5 mg by mouth once daily Simvastatin 10 MG tablet Discontinued 5 mg PO DAILY September 05, 2015 1:00am February 26, 2019 7:37am Start: 09-05-2015 End: 02-26-2019 take 5 mg by mouth once daily Simvastatin Discontinued 5 MG PO DAILY September 05, 2015 1:00am February 26, 2019 7:37am Comment on above: Mail order. sucralfate 100 mg/ml oral suspension (6 sources) Aluminum Complex Start: 01-07-2017 End: 01-21-2017 take 10 mL by mouth four times daily Sucralfate 1 GM/10ML Oral Suspension 10 Milliliter qid for 14 days Quantity: 7840 {Milliliter} Refills: 0 Ordered: 07-Jan-2017 Mariaelena Burr CNP Start : 07-Jan-2017 End : 21-Jan-2017 Inactive Start: 09-30-2007 End: 01-06-2008 CARAFATE, 1GM/10ML (Oral [place] pension) 1 (one) Gram(s) 1/2 prior to meals for 0 days Refills: 3 Ordered: 30-Sep-2007 Jenn Giron Start : 30-Sep-2007 End : 06-Jan-2008 Inactive Comments: finished Comment on above: finished sulfamethoxazole 800 mg / trimethoprim 160 mg oral tablet (2 sources) Dihydrofolate Reductase Inhibitor Antibacterial, Sulfonamide Antimicrobial Start: End: Sulfamethoxazole-Tri methoprim (Bactrim Ds) 800-160 mg tablet Discontinued 1 {tbl} PO TWICE A DAY April 30, 2024 12:00am June 02, 2024 2:59pm temazepam 15 mg oral capsule (12 sources) Benzodiazepine Start: End: take 1 capsule by mouth at bedtime as needed Temazepam 15 MG capsule Discontinued 15 mg PO AT BEDTIME NEEDED as needed for Insomnia September 09, 2020 1:00am October 04, 2020 11:29am tiZANidine 4 mg oral capsule (3 sources) Central alpha-2 Adrenergic Agonist Start: End: take 1 capsule by mouth every eight hours as needed ZANAFLEX, 4MG (Oral Capsule) 1 (one) Capsule Capsule q8hrs prn for muscle relaxant for 0 days Quantity: 30 {Capsule} Refills: 0 Ordered: 03-Oct-2015 Jenn Giron Start : 05-Oct-2014 End : 03-Oct-2015 Discontinued traMADol hydrochloride 50 mg oral tablet (20 sources) Opioid Agonist Start: End: take 1 tablet by mouth every six hours as needed for pain Tramadol 50 MG tablet Discontinued 50 mg PO EVERY 6 HOURS NEEDED as needed for Pain Score 4-10 28 7 October 28, 2020 1:00am November 03, 2020 1:00am November 04, 2020 1:03am triamcinolone acetonide 0.055 mg/actuat metered dose nasal spray (18 sources) Corticosteroid Start: 017 End: 019 Triamcinolone Acetonide Discontinued 1 SPRAY NASAL DAILY January 05, 2017 12:00am February 26, 2019 7:37am Start: 06-27-2016 End: 02-26-2019 Triamcinolone Acetonide 1 SP RAY aerosol,spray Discontinued 1 NMA NASAL DAILY January 05, 2017 12:00am February 26, 2019 7:37am Start: 10-18-2008 End: 07-19-2009 NASACORT AQ, 55MCG/ACT (Nasa l Aerosol Solution) 2 (two) Aerosol Soln qd for 0 days Quantity: 1 {Aerosol_Soln} Refills: 0 Ordered: 18-Oct-2008 Isabella Ortiz LPN Start : 18-Oct-2008 End : 19-Jul-2009 Inactive valACYclovir 1000 mg oral tablet (6 sources) Herpesvirus Nucleoside Analog DNA Polymerase Inhibitor, Herpes Simplex Virus Nucleoside Analog DNA Polymerase Inhibitor, Herpes Zoster Virus Nucleoside Analog DNA Polymerase Inhibitor Start: 07-02-2018 take 2 tablets by mouth twice daily as needed, then take 1 tablet by mouth once daily as needed Valtrex 1 GM Oral Tablet tad Tablet uad, prn for 0 days Quantity: 34 {Tablet} Refills: 4 Ordered: 02-Jul-2018 Moira Ramsey DO, DO, Kathleen Start : 02-Jul-2018 Active Comments: 2 tablets bid for one day then one tablet daily Start: 03-20-2015 End: 10-03-2015 take 1 tablet by mouth twice daily VALTREX, 500MG (Oral Tablet) 1 (one) Tablet Tablet bid for 0 days Quantity: 20 {Tablet} Refills: 0 Ordered: 03-Oct-2015 Jenn Giron Start : 20-Mar-2015 End : 03-Oct-2015 Discontinued Comment on above: 2 tablets bid for on e day then one tablet daily verapamil hydrochloride 120 mg extended release oral tablet (20 sources) Calcium Channel Sean Start: 1 End: 1 take 1 tablet by mouth once daily Verapamil 120 MG tablet extended release Discontinued 120 mg PO DAILY September 28, 2020 1:00am October 04, 2020 11:29am Start: 08-24-2018 take 1 tablet by sandra once daily Verapamil HCl ER 120 MG Oral Tablet Extended Release 1 Tablet ER QD for 90 days Quantity: 90 {Tablet} Refills: 3 Ordered: 24-Aug-2018 Moira Ramsey DO, DO, Kathleen Start : 24-Aug-2018 Active Comments: Mail order. Start: 01-05-2017 End: 09-21-2020 take 1 tablet by mouth once daily Verapamil 120 MG tablet Discontinued 120 mg PO DAILY January 05, 2017 12:00am September 21, 2020 7:59pm Comment on above: Mail order. VIRAGE CUSTOM BREAST PROSTHES (Miscellaneous) (3 sources) Start: 05-15-2015 VIRAGE CUSTOM BREAST PROSTHES (Miscellaneous) 1 (one) Misc Misc daily for 0 days Quantity: 1 {Unspecified} Refills: 0 Ordered: 15-May-2015 Jenn Giron Start : 15-May-2015 Active vitamin b6 100 mg oral tablet (3 sources) End: 06-01-2010 take 1 tablet by mouth once daily VITAMIN B-6, 100MG (Oral Tablet) 1 qd for 0 days Refills: 0 Ordered: 01-Jun-2010 Aruna Maria End : 01-Jun-2010 Inactive zolpidem tartrate 5 mg oral tablet (12 sources) gamma-Aminobutyri c Acid-ergic Agonist Start: 10-13-2020 End: 10-28-2020 take 1 tablet by mouth at bedtime as needed Zolpidem 5 MG tablet Discontinued 5 mg PO AT BEDTIME NEEDED as needed for Insomnia October 13, 2020 1:00am October 28, 2020 10:02am Problems Active Problems Problem Classification Problem Date Documented Da te Episodic/Chronic Abdominal pain (7 sources) Right lower quadrant pain; Translations: [Generalized abdominal pain] Resolved: 05-21-2017 02-21-2016 Episodic Adjustment disorders (4 sources) Adjustment disorder, unspecified; Translations: [Anticipatory grief] Resolved: 10-30-2016 07-02-2018 Chronic Comment on above: improving Anxiety disorders (20 sources) Acute stress disorder; Translations: [Anxiety] 07-02-2018 Chronic Comment on above: stable Cancer of breast (20 sources) Primary malignant neoplasm of breast; Translations: [Malignant tumor of breast ] Resolved: 09-24-2017 09-24-2017 Chronic Cancer of breast (18 sources) History of malignant neoplasm of breast; Translations: [Personal history of malignant neoplasm of breast] 05-21-2018 Episodic Comment on above: No evidence of disea se clinically. Cardiac dysrhythmias (12 sources) Atrial premature complex ; Translations: [Atrial premature depolarization] 04-10-2021 Chronic Chronic kidney disease (20 sources) Chronic kidney disease stage 3; Translations: [Stage 3 chronic kidney disease] 09-09-2020 Chronic Conditions associated with dizziness or vertigo (19 sources) Dizziness and giddiness; Translations: [Dizziness on standing up] Resolved: 08-29-2016 05-21-2018 Episodic Comment on above: cant wear support [facility] in [facility] suspect vertigo with vaso vagal reaction ( ck HUT)based on description -but eval for tumor with hearing loss nad arrthymia and tx vertio wiht meclizine and nasocort with chronic allergey and sinus h/o enc to wear compress ion socks stillresolved with proper hydration , eating more freq and chg possition more slowly -- Deficiency and other anemia (16 sources) Anemia; Translations: [Other specified anemias] 05-21-2018 Episodic Deficiency and other anemia (12 sources) Iron deficiency anemia; Translations: [Iron deficiency anemia, unspecified] 10-13-2020 Episodic Deficiency and other anemia (2 sources) Anemia, unspecified; Translations: [Anemia, unspecified] 12-17-2022 Episodic Diseases of white blood cells (3 sources) Leukocytopenia, unspecified; Translations: [LEUKOCYTOPENIA NOS] 05-21-2018 Chronic Disorders of lipid metabolism (20 sources) Hyperlipidemia; Translations: [Other and unspecified hyperlipidemia] Onset: 02-08-2025 05-21-2018 Chronic Esophageal disorders (20 sources) Gastro-esophageal reflux disease without esophagitis; Translations: [Gastroesophageal reflux disease] 05-21-2018 Chronic Essential hypertension (20 sources) Benign essential hypertension; Translations: [Hypertensive disorder] 05-21-2018 Chronic Genitourinary symptoms and ill-defined conditions (3 sources) Urge incontinence of urine; Translations: [Sensory urge incontinence] 05-21-2018 Chronic Heart valve disorders (20 sources) Mitral valve prolapse; Translations: [Nonrheumatic mitral (valve) prolapse] 05-21-2018 Chronic Comment on above: stable Influenza (8 sources) Influenza Intestinal obstruction without hernia (12 sources) Fecal impaction of colon; Translations: [Fecal impaction] 12-13-2020 Episodic Malaise and fatigue (16 sources) Fatigue; Translations: [Asthenia] Resolved: 05-21-2017 05-21-2017 Episodic Mood disorders (13 sources) Acute depression; Translations: [Depressive disorder] 07-02-2018 Chronic Nutritional deficiencies (20 sources) Vitamin D deficiency; Translations: [Unspecified vitamin D deficiency] Resolved: 02-21-2016 05-21-2018 Chronic Osteoporosis (7 sources) Osteoporosis; Translations: [Osteoporosis] Resolved: 11-14-2014 02-21-2016 Chronic Other bone disease and musculoskeletal deformities (20 sources) Osteopenia; Translations: [Other specified disorders of bone density and structure, unspecified site] 05-21-2018 Episodic Comment on above: last dexa not due ye t Other bone disease and musculoskeletal deformities (12 sources) Disorder of bone; Translations: [Other specified disorders of bone density and structure, unspecified site] 09-08-2020 Episodic Other connective tissue disease (12 sources) Spasm; Translations: [Other muscle spasm] 09-11-2020 Episodic Other connective tissue disease (12 sources) Neuropathic pain; Translations: [Neuralgia and neuritis, unspecified] 09-11-2020 Episodic Other endocrine disorders (4 sources) Hypoglycemia; Translations: [Hypoglycemia] 05-21-2018 Chronic Comment on above: suspect episode at [facility] [employer] was this -- bc she got better so fast with gatorade and "bar" so will monitor Other gastrointestinal disorders (6 sources) Diarrhea; Translations: [Diarrhea, unspecified] Resolved: 10-05-2012 02-21-2016 Episodic Other gastrointestinal disorders (2 sources) Constipation; Translations: [Constipation, unspecified] 06-03-2024 Episodic Other lower respiratory disease (14 sources) Cough; Translations: [Cough] Resolved: 10-05-2012 02-21-2016 Episodic Other nutritional; endocrine; and metabolic disorders (5 sources) Hypomagnesemia; Translations: [Hypomagnesemia] 05-21-2018 Chronic Other nutritional; endocrine; and metabolic disorders (3 sources) Body mass index 30+ - obesity; Translations: [BMI 30.0-30.9,adult] 05-21-2018 Chronic Other nutritional; endocrine; and metabolic disorders (3 sources) Body mass index 25-29 - overweight; Translations: [BMI 28.0-28.9,adult] 05-21-2018 Chronic Other skin disorders (2 sources) Lesion of nose; Translations: [Disorder of the skin and subcutaneous tissue, unspecified] 02-16-2024 Episodic Other upper respiratory disease (4 sources) Allergic rhinitis due to other allergen Chronic Other upper respiratory infections (20 sources) Sore throat symptom; Translations: [Acute pharyngitis] Onset: 06-01-2010 Resolved: 08-29-2016 05-12-2015 Episodic Comment on above: has chemo wi ll treat as if Peripheral and visceral atherosclerosis (4 sources) Ischemic colitis Resolved: 02-21-2016 02-21-2016 Chronic Spondylosis; intervertebral disc disorders; other back problems (12 sources) Other intervertebral disc displacement, lumbar region; Translations: [Ruptured lumbar intervertebral disc] 09-09-2020 Chronic Spondylosis; intervertebral disc disorders; other back problems (20 sources) Low back pain; Translations: [Sciatica] Resolved: 05-21-2017 05-21-2018 Episodic Comment on above: getting injections b y painmanagment helping Thyroid disorders (8 sources) Thyroid nodule; Translations: [Thyroid nodule] 05-21-2018 Chronic Unclassified (6 sources) frozen shoulder 05-21-2018 Unclassified (20 sources) Non-smoker; Translations: [Nonsmoker] 07-02-2018 Unclassified (6 sources) preop to remove port 05-21-2018 Unclassified (20 sources) Unclassified (20 sources) VITAMIN D DEFICIENCY, NOS (268.9) Unclassified (20 sources) LEUKOCYTOPENIA NOS (288.50) Unclassified (6 sources) screening Resolved: 01-18-2009 02-21-2016 Unclassified (7 sources) skin lesion of undetermined significance- refer Zeinab Resolved: 01-18-2009 02-21-2016 Unclassified (20 sources) Breast Cancer, Unspecified (174.9) Unclassified (4 sources) lesion on right foot -- check xray right foot at great toe Resolved: 01-18-2009 02-21-2016 Unclassified (3 sources) LEUKOPENIA, NOS (288.0) Unclassified (19 sources) LOW BACK PAIN WITH RADICULOPATHY (724.4) Unclassified (15 sources) BMI 29.0-29.9,adult Unclassified (3 sources) BMI 30.0-30.9,adult Unclassified (17 sources) GOITER, NONTOXIC UNINODULAR (241.0) Unclassified (4 sources) Abdominal Pain,RLQ (789.03) Unclassified (20 sources) Body mass index 29.0-29.9, adult Unclassified (9 sources) BMI 28.0-28.9,adult Unclassified (3 sources) History of breast cancer Unclassified (7 sources) Abdominal Pain,General (789.07) Unclassified (6 sources) Limb pain (729.5) Unclassified (8 sources) SYMPTOM, MEMORY LOSS (780.93) Unclassified (3 sources) Pain in both knees, unspecified chronicity Unclassified (6 sources) Pain in [place], unspecified laterality Unclassified (6 sources) Orthostasis Unclassified (3 sources) Dizzy spells Unclassified (3 sources) Abdominal Pain,RUQ(789.01) Unclassified (2 sources) Elevated Blood Pressure(796.2) Unclassified (2 sources) Grief reaction Unclassified (1 source) Grieving Reaction (309.0) Urinary tract infections (5 sources) Urinary tract infectious disease; Translations: [Lower urinary tract infectious disease] Resolved: 10-29-2013 07-18-2015 Episodic Viral infection (15 sources) Herpesvirus infection; Translations: [Herpes simplex] 05-21-2018 Episodic Past or Other Problems Problem Classification Problem Date Documented Date Episodic/Chronic Administrative/social admission (1 source) Pneumococcal immunization status; Translations: [Prophylactic vaccination against streptococcus pneumoniae and influenza] Resolved: 1 07-12-2015 Episodic Calculus of urinary tract (3 sources) Calcium renal calculus ; Translations: [Calcium kidney stone] 05-21-2018 Episodic Conditions associated with dizziness or vertigo (1 source) Conditions associated with dizziness or vertigo Deficiency and other anemia (3 sources) Nutritional anemia; Translations: [Anemia due to vitamin B12 deficiency, unspecified B12 deficiency type] 05-21-2018 Episodic Comment on above: nelly ordered these l abs and heme cards are pending Deficiency and other anemia (7 sources) Deficiency and other anemia Diseases of mouth; excluding dental (3 sources) Sialoadenitis; Translations: [Sialoadenitis] Resolved: 9 02-21-2016 Episodic Fluid and electrolyte disorders (2 sources) Dehydration; Translations: [Dehydration] Resolved: 7 05-21-2017 Episodic Gastrointestinal hemorrhage (1 source) Blood-tinged feces; Translations: [Bloody stool] Resolved: 7 05-21-2017 Comment on above: history of colitis 2 010 with colonoscopy from [place] this episode similar Genitourinary symptoms and ill-defined conditions (8 sources) Dysuria; Translations: [Increased frequency of urination] 05-21-2018 Episodic Headache; including migraine (3 sources) Headache; Translations: [Acute intractable headache, unspecified headache type] 05-21-2018 Episodic Headache; including migraine (2 sources) Headache; including migraine Hemorrhoids (1 source) Hemorrhoids; Translations: [Hemorrhoids] Resolved: 6 02-21-2016 Episodic Immunizations and screening for infectious disease (2 sources) Need for prophylactic vaccination and inoculation against influenza Episodic Influenza (1 source) Influenza with other respiratory manifestations; Translations: [Flu syndrome] Resolved: 4 10-29-2013 Episodic Comment on above: will treat as if Lymphadenitis (3 sources) Lymphadenopathy; Translations: [Lymphadenopathy] Resolved: 9 02-21-2016 Episodic Mood disorders (3 sources) Major depressive disorder, single episode, unspecified; Translations: [Mood disorders] 07-02-2018 Nausea and vomiting (11 sources) Nausea and vomiting; Translations: [Nausea] Onset: 1 Resolved: 6 02-21-2016 Episodic Nonspecific chest pain (7 sources) Chest pain, unspecified; Translations: [Chest pain] Resolved: 3 02-21-2016 Episodic Nutritional deficiencies (5 sources) Cobalamin deficiency; Translations: [Iron deficiency] 05-21-2018 Episodic Other bone disease and musculoskeletal deformities (3 sources) Other specified disorders of bone density and structure, unspecified site; Translations: [Disorder of bone and cartilage, unspecified] Onset: 5 12-17-2022 Episodic Other circulatory disease (1 source) Elevated blood-pressure reading without diagnosis of hypertension; Translations: [Elevated blood pressure (not hypertension)] Resolved: 9 02-21-2016 Episodic Comment on above: Repeat BP better 132 /76Discussed exerciseavoid salt Other connective tissue disease (3 sources) Pain in limb; Translations: [Limb pain] 05-21-2018 Episodic Other connective tissue disease (2 sources) Other symptoms and signs involving the musculoskeletal system; Translations: [Difficulty in weight bearing] 05-21-2018 Episodic Comment on above: painful weight beari ng on right foot. Other connective tissue disease (1 source) Pain in lower limb; Translations: [Pain in carson, unspecified laterality] Resolved: 7 05-21-2017 Episodic Other connective tissue disease (1 source) Pain in right foot; Translations: [Right foot pain] Resolved: 8 03-19-2018 Other endocrine disorders (1 source) Hyperparathyroidism, unspecified; Translations: [HYPERPARATHYROIDISM NOS] Resolved: 1 02-21-2016 Chronic Other female genital disorders (6 sources) Vaginal dryness; Translations: [Vaginal dryness] 05-21-2018 Episodic Comment on above: recommended coconut oil, marcie lisalack of estrogen and ca pt so cant Other gastrointestinal disorders (2 sources) Constipation, unspecified; Translations: [Constipation, unspecified] Onset: 4 Episodic Other nervous system disorders (1 source) Difficulty weight-bearing; Translations: [Difficulty in weight bearing] 05-21-2018 Comment on above: painful weight beari ng on right foot. Other non-traumatic joint disorders (1 source) Knee pain; Translations: [Pain in both knees, unspecified chronicity] Resolved: 7 05-21-2017 Episodic Comment on above: cnat do nsaids with " stomach issues"-- uses tylenol prn Other non-traumatic joint disorders (2 sources) Ankle pain; Translations: [Left ankle pain] Resolved: 8 03-19-2018 Episodic Other screening for suspected conditions (not mental disorders or infectious disease) (12 sources) Blood chemistry abnormal; Translations: [Serum iron low] Onset: 5 Resolved: 7 08-29-2016 Episodic Other upper respiratory disease (1 source) Allergic rhinitis; Translations: [Allergic rhinitis due to other allergen] Resolved: 6 02-21-2016 Chronic Other upper respiratory disease (3 sources) Congestion of nasal sinus; Translations: [Sinus congestion] Resolved: 8 12-03-2017 Episodic Other upper respiratory disease (1 source) Pain in throat Episodic Other upper respiratory infections (1 source) Bacterial sinusitis; Translations: [Sinusitis, bacterial] Resolved: 8 12-03-2017 Chronic Otitis media and related conditions (1 source) Dysfunction of eustachian tube; Translations: [Eustachian tube dysfunction] Resolved: 9 02-21-2016 Episodic Pneumonia (except that caused by tuberculosis or sexually transmitted disease) (3 sources) Pneumonia (except that caused by tuberculosis or sexually transmitted disease) Poisoning by other medications and drugs (1 source) Adverse reaction to drug; Translations: [Medication side effect] Resolved: 7 05-21-2017 Episodic Residual codes; unclassified (9 sources) Increased body mass index; Translations: [BMI 29.0-29.9,adult] 07-02-2018 Episodic Residual codes; unclassified (3 sources) Postmenopausal state; Translations: [Postmenopausal (Renamed from Postmenopausal status)] 05-21-2018 Episodic Comment on above: h/o of being on recl ast but bones got worse so 03/09 was her first dose of prolia Residual codes; unclassified (3 sources) Needs influenza immunization; Translations: [Need for prophylactic vaccination and inoculation against influenza] 05-21-2018 Episodic Residual codes; unclassified (2 sources) Chill; Translations: [Chills] Resolved: 5 02-21-2016 Episodic Residual codes; unclassified (1 source) Amnesia; Translations: [Other amnesia] Resolved: 8 03-19-2018 Episodic Comment on above: improving Residual codes; unclassified (1 source) Vaccination required; Translations: [Encounter for immunization] Resolved: 2 07-11-2015 Episodic Unclassified (19 sources) Patient encounter status; Translations: [Encounter for annual general medical examination with abnormal findings in adult (Renamed from Annual visit for general adult medical examination with abnormal findings)] Resolved: 6 03-19-2018 Unclassified (12 sources) Screening status; Translations: [Encounter for screening for malignant neoplasm of colon (Renamed from Special screening for malignant neoplasms, colon)] 05-21-2018 Comment on above: scope 2017 Unclassified (4 sources) angiomyolipoma 05-21-2018 Unclassified (3 sources) Eustachian tube dysfunction (381.81) Unclassified (4 sources) HERPES SIMPLEX WITH OTHER SPECIFIED COMPLICATIONS, 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) Unclassified (19 sources) Unspecified Diagnosis Resolved: 5 05-12-2015 Unclassified (3 sources) Stress reaction Unclassified (3 sources) Anticipatory grieving Unclassified (6 sources) B12 deficiency Unclassified (3 sources) Low iron Unclassified (6 sources) HYPERPARATHYROIDISM NOS (252.00) Unclassified (6 sources) Sinusitis, bacterial Unclassified (3 sources) Right foot pain Unclassified (3 sources) Difficulty in weight bearing Unclassified (3 sources) Right ankle pain Unclassified (3 sources) Abnormal blood chemistry (790.6) Unclassified (6 sources) Encounter for screening mammogram for breast cancer (Renamed from Encounter for screening mammogram for malignant neoplasm of breast) Unclassified (6 sources) Postmenopausal (Renamed from Postmenopausal status) Unclassified (3 sources) Bloody stool Unclassified (3 sources) Medication side effect Unclassified (3 sources) Urinary Urge Incontinence (788.31) Unclassified (3 sources) Annual Medicare Phyiscal WITHOUT abnormal findings (Renamed from Encounter for general adult medical examination without abnormal findings) Unclassified (2 sources) Well Women Exam, No Pap (V72.31) (Mammo) Unclassified (1 source) Abnormal Cholesterol (272.9) Unclassified (1 source) Dizzy Unclassified (1 source) Annual Medicare Physical (V70.0) Unclassified (1 source) Well Woman Exam , Medicare (V76.2) (Renamed from Well Woman Exam , Medicare (V76.2, V72.31)) Unclassified (1 source) SHINGLES,NEED FOR PROPHYLACTIC VACCINATION AND INOCULATION AGAINST (V05.8) Results Test Name Value Interpretation Reference Range Facility Gastroenterology Visit Repor ton 06-24-2025 Gastroenterology Visit Report [facility]astroenterology [address] [place] [address] OFFICE VISIT Date of Service: 06/24/25 MR#: [id number] Acct: [id number] Name: MAYA CURRY Rep #: [id number] : 1950 Provider: MAGDI Nicolas Age/Sex: 75/F Location[place] [facility] [place] [facility] [place] Status: Signed Intake Vital Signs 07/12/24 08:08 Height 5 ft 6 in Intake Visit Reasons: GERD NEEDS GI TO PRESCRIBE VOQUEZNA 10MG PER INS Chief Complaint: GERD Allergies Penicillins (PCN) Allergy (Verified 06/24/25 14:30) Unknown amoxicillin trihydrate (From Amoxil) Adverse Reaction (Verified 06/24/25 14:30) Rash ciprofloxacin (From Cipro) Adverse Reaction (Verified 06/24/25 14:30) Nausea ciprofloxacin HCl (From Cipro) Adverse Reaction (Verified 06/24/25 14:30) Nausea Medications ???Medication ???Instructions ???Recorded ???Confirmed ???Type duloxetine 60 mg capsule,delayed 90 mg PO DAILY Antidepressant 08/2506/24/25 History release omeprazole 40 mg-sodium 40 each PO DAILY 12/13/20 06/24/25 History bicarbonate 1.1 gram capsule polyethylene glycol 3350 17 gram 17 g PO DAILY 12/22/23 06/24/25 Hi story oral powder packet (Miralax) calcium citrate 200 mg PO BID 02/16/24 06/24/25 Hi story fexofenadine 60 mg tablet (Jessica 60 mg PO BID PRN ALLERGIES 02/1506/24/25 History Allergy) camphor-menthol 0.2 %-3.5 % 1 applic topical DAILY PRN muscle 07/08/24 06/24/25 History topical gel (Arctic Relief) pain vibegron 75 mg tablet (Gemtesa) 75 mg PO DAILY 07/08/24 06/24/25 H istory vonoprazan 10 mg tablet (Voquezna) 10 mg PO QDAY #30 tabs 06/24/25 06/24/25 Rx Have you fallen in the past year?: No PFSH Medical History Back pain Essential tremor Colitis Gastric reflux History of hiatal hernia History of irregular heartbeat External nasal lesion Screening for osteoporosis Depression Cancer Wears glasses Cancer Depression Anxiety Ambulates with cane High cholesterol Easy bruising History of renal disease Non-smoker History of pain when walking Hx of mitral valve prolapse History of stress test Premature atrial complex Mitral valve prolapse Hay fever Kidney disease Breast cancer Herniation of lumbar intervertebral disc Arthritis Nephrolithiasis Osteopenia Hypertension Heart disease GERD (gastroesophageal reflux disease) Anxiety Surgical History Hx of colonoscopy History of esophagogastroduodenoscop y (EGD) History of discectomy History of laminectomy History of lithotripsy History of dilation and curettage History of tonsillectomy History of lumpectomy of right breast History of hysterectomy History of appendectomy Family History Mother Multiple myeloma Thyroid disorder Hypertension Hyperlipidemia Heart disease Diabetes Father Diabetes Social History Smoking Status: Never smoker HPI HPI Chief Complaint: GERD Details: MAYA CURRY, is a 75 F who presents to the office today for establishment. Patient referred from primary care provider due to GERD. Patient has a long history of GERD related to a small hiatal hernia. In the past patient was seen by general surgery Dr. Royal for possible Kevin fundoplication or toupet fundoplication. Patient was advised to have the surgery so she can come off PPIs if she has chronic kidney disease. Ultimately neither was pursued due to it being around the time of COVID. Patient has been trying to wean herself off PPIs however when she stopped she has recurrence of symptoms. Primary care provider started her on Voquezna samples and she has been doing well on that. Unfortunately her insurance requires her to see a GI before this medication is prescribed. She had alternates between constipation and loose stool but she feels this was related to her IC diet. Last colonoscopy was in 2023with 2 polyps in the descending and ascending colon. ROS Const Constitutional: No fatigue, fever(s) or weight change ENT ENT: No difficulty swallowing Gastro GI: Positive for constipation and nausea/dyspepsia; No abdominal pain, belching, bloating, change in bowel habits, change in stool character, coffee ground emesis, cramping, diarrhea, heartburn, difficulty swallowing, feeling full early, excessive flatus, incontinent of stools, Vomiting blood/hematemesis, Blood in stool, loose stools, Black,tarry stools, pain with swallowing, vomiting or other Musc Musculoskeletal: Positive for joint pain and back pain Skin Skin: No yellowing of the eye or itchy eyes Psych Psychiatric: Positive for anxiety and No depression Endo Endocrine: No fatig (more content not included)... Normal [facility] CBC W/Diff, Automatedon 10-0 -2024 Absolute Lymph 1.19 X10 3/uL Normal 0.83-4.51 [facility] Comment on above: Order Comment: Order Date: 10/06/24 Order Info: 018- - CBCD Performed By: #### L 506.1000, L509.1000, L500.4100, L100.0100, L500.4050 #### [facility] [address] [place], [address] Absolute Neut 2.2 X10 3/uL Normal 2.0-7.7 [facility] Comment on above: Order Comment: Order Date: 10/06/24 Order Info: [id number] - CBCD Performed By: #### L 506.1000, L509.1000, L500.4100, L100.0100, L500.4050 #### [facility] [address] [place], [address] Basophils/100 WBC (Bld) 1.2 % High 0-1 [facility] Comment on above: Order Comment: Order Date: 10/06/24 Order Info: [id number] - CBCD Performed By: #### L 506.1000, L509.1000, L500.4100, L100.0100, L500.4050 #### [facility] [address] [place], [address] Eosinophils/100 WBC (Bld) 3.0 % Normal 0-5 [facility] Comment on above: Order Comment: Order Date: 10/06/24 Order Info: 018- - CBCD Performed By: #### L 506.1000, L509.1000, L500.4100, L100.0100, L500.4050 #### [facility] [address] [place], [address] Erythrocyte distribution width (RBC) [Ratio] 14.5 % Normal 11.6-14.6 [facility] Comment on above: Order Comment: Order Date: 10/06/24 Order Info: 0184-1 - CBCD Performed By: #### L 506.1000, L509.1000, L500.4100, L100.0100, L500.4050 #### [facility] [address] [place], [address] Hematocrit (Bld) [Volume fraction] 39.8 % Normal 37-47 [facility] Comment on above: Order Comment: Order Date: 10/06/24 Order Info: 0184-1 - CBCD Performed By: #### L 506.1000, L509.1000, L500.4100, L100.0100, L500.4050 #### [facility] [address] [place], [address] Hemoglobin (Bld) [Mass/Vol] 12.6 g/dL Normal 12.0-15.0 [facility] Comment on above: Order Comment: Order Date: 10/06/24 Order Info: 0184-1 - CBCD Performed By: #### L 506.1000, L509.1000, L500.4100, L100.0100, L500.4050 #### [facility] [address] [place], [address] IG% 0.500 Normal 0.0-0.9 [facility] Comment on above: Order Comment: Order Date: 10/06/24 Order Info: 0184-1 - CBCD Result Comment: IG% - Immature Granulocytes (promyelocytes, myelocytes and metamyelocytes) > 1% indicates that a LEFT SHIFT is Present. Performed By: #### L 506.1000, L509.1000, L500.4100, L100.0100, L500.4050 #### [facility] [address] [place], [address] Lymphocytes/100 WBC (Bld) 29.5 % Normal 19-41 [facility] Comment on above: Order Comment: Order Date: 10/06/24 Order Info: 0184-1 - CBCD Performed By: #### L 506.1000, L509.1000, L500.4100, L100.0100, L500.4050 #### [facility] [address] [place], [address] MCH (RBC) [Entitic mass] 29.0 pg Normal 27.0-32.0 [facility] Comment on above: Order Comment: Order Date: 10/06/24 Order Info: 018- - CBCD Performed By: #### L 506.1000, L509.1000, L500.4100, L100.0100, L500.4050 #### [facility] [address] [place], [address] MCHC (RBC) [Mass/Vol] 31.7 g/dL Low 32-36 [facility] Comment on above: Order Comment: Order Date: 10/06/24 Order Info: 0184- - CBCD Performed By: #### L 506.1000, L509.1000, L500.4100, L100.0100, L500.4050 #### [facility] [address] [place], [address] MCV (RBC) [Entitic vol] 91.5 fL Normal 81-99 [facility] Comment on above: Order Comment: Order Date: 10/06/24 Order Info: 0184- - CBCD Performed By: #### L 506.1000, L509.1000, L500.4100, L100.0100, L500.4050 #### [facility] [address] [place], [address] Monocytes/100 WBC (Bld) 11.6 % High 0-10 [facility] Comment on above: Order Comment: Order Date: 10/06/24 Order Info: 0184-1 - CBCD Performed By: #### L 506.1000, L509.1000, L500.4100, L100.0100, L500.4050 #### [facility] [address] [place], [address] Neutrophils/100 WBC (Bld) 54.2 % Normal 47-70 [facility] Comment on above: Order Comment: Order Date: 10/06/24 Order Info: 0184-1 - CBCD Performed By: #### L 506.1000, L509.1000, L500.4100, L100.0100, L500.4050 #### [facility] [address] [place], [address] Nucleated RBC (Bld) [#/Vol] 0 10*3/uL Normal 0-5 [facility] Comment on above: Order Comment: Order Date: 10/06/24 Order Info: 0184- - CBCD Performed By: #### L 506.1000, L509.1000, L500.4100, L100.0100, L500.4050 #### [facility] [address] [place], [address] Platelet mean volume (Bld) [Entitic vol] 10.4 fL Normal 6.2-12.0 [facility] Comment on above: Order Comment: Order Date: 10/06/24 Order Info: 0184- - CBCD Performed By: #### L 506.1000, L509.1000, L500.4100, L100.0100, L500.4050 #### [facility] [address] [place], [address] Platelets (Bld) [#/Vol] 302 10*3/uL Normal 150-450 [facility] Comment on above: Order Comment: Order Date: 10/06/24 Order Info: 0184-1 - CBCD Performed By: #### L 506.1000, L509.1000, L500.4100, L100.0100, L500.4050 #### [facility] [address] [place], [address] RBC (Bld) [#/Vol] 4.35 10*6/uL Normal 4.2-5.4 [facility] Comment on above: Order Comment: Order Date: 10/06/24 Order Info: 0184-1 - CBCD Performed By: #### L 506.1000, L509.1000, L500.4100, L100.0100, L500.4050 #### [facility] [address] [place], [address] RDW SD 48.8 fl High 35.1-43.9 [facility] Comment on above: Order Comment: Order Date: 10/06/24 Order Info: 0184-1 - CBCD Performed By: #### L 506.1000, L509.1000, L500.4100, L100.0100, L500.4050 #### [facility] [address] [place], [address] WBC (Bld) [#/Vol] 4.0 10*3/uL Low 4.4-11.0 [facility] Comment on above: Order Comment: Order Date: 10/06/24 Order Info: 0184-1 - CBCD Performed By: #### L 506.1000, L509.1000, L500.4100, L100.0100, L500.4050 #### [facility] [address] [place], [address] Comprehensive Metabolic Prof ndon 06-01-2025 Albumin [Mass/Vol] 4.2 g/dL Normal 3.4-4.8 [facility] Comment on above: Order Comment: Order Date: 10/06/24 Order Info: 0184-1 - CBCD Performed By: #### L 506.1000, L509.1000, L500.4100, L100.0100, L500.4050 #### [facility] [address] [place], [address] Albumin/Globulin [Mass ratio] 1.5 {ratio} Normal 0.9-2.4 [facility] Comment on above: Order Comment: Order Date: 10/06/24 Order Info: 0184-1 - CBCD Performed By: #### L 506.1000, L509.1000, L500.4100, L100.0100, L500.4050 #### [facility] [address] [place], [address] ALK PHOS 86 U/L Normal 35-104 [facility] Comment on above: Order Comment: Order Date: 10/06/24 Order Info: 0184-1 - CBCD Performed By: #### L 506.1000, L509.1000, L500.4100, L100.0100, L500.4050 #### [facility] [address] [place], [address] ALT [Catalytic activity/Vol] 13 U/L Normal <=34 [facility] Comment on above: Order Comment: Order Date: 10/06/24 Order Info: 0184-1 - CBCD Performed By: #### L 506.1000, L509.1000, L500.4100, L100.0100, L500.4050 #### [facility] [address] [place], [address] AST [Catalytic activity/Vol] 24 U/L Normal <=31 [facility] Comment on above: Order Comment: Order Date: 10/06/24 Order Info: 0184-1 - CBCD Performed By: #### L 506.1000, L509.1000, L500.4100, L100.0100, L500.4050 #### [facility] [address] [place], [address] Bilirubin [Mass/Vol] 0.29 mg/dL Normal 0.00-1.30 [facility] Comment on above: Order Comment: Order Date: 10/06/24 Order Info: 0184-1 - CBCD Performed By: #### L 506.1000, L509.1000, L500.4100, L100.0100, L500.4050 #### [facility] [address] [place], [address] BUN/CRE 18.5 RATIO Normal 10-20 [facility] Comment on above: Order Comment: Order Date: 10/06/24 Order Info: 0184-1 - CBCD Performed By: #### L 506.1000, L509.1000, L500.4100, L100.0100, L500.4050 #### [facility] [address] [place], [address] Calcium [Mass/Vol] 10.1 mg/dL Normal 7.6-11.0 [facility] Comment on above: Order Comment: Order Date: 10/06/24 Order Info: 0184- - CBCD Performed By: #### L 506.1000, L509.1000, L500.4100, L100.0100, L500.4050 #### [facility] [address] [place], [address] Chloride [Moles/Vol] 102 mmol/L Normal 98-108 [facility] Comment on above: Order Comment: Order Date: 10/06/24 Order Info: 0184- - CBCD Performed By: #### L 506.1000, L509.1000, L500.4100, L100.0100, L500.4050 #### [facility] [address] [place], [address] CO2 [Moles/Vol] 25.9 mmol/L Normal 21.0-32.0 [facility] Comment on above: Order Comment: Order Date: 10/06/24 Order Info: 0184- - CBCD Performed By: #### L 506.1000, L509.1000, L500.4100, L100.0100, L500.4050 #### [facility] [address] [place], [address] Creatinine [Mass/Vol] 1.06 mg/dL Normal 0.70-1.20 [facility] Comment on above: Order Comment: Order Date: 10/06/24 Order Info: 0184-1 - CBCD Performed By: #### L 506.1000, L509.1000, L500.4100, L100.0100, L500.4050 #### [facility] [address] [place], [address] GAP 10 Normal 5-15 [facility] Comment on above: Order Comment: Order Date: 10/06/24 Order Info: 0184-1 - CBCD Performed By: #### L 506.1000, L509.1000, L500.4100, L100.0100, L500.4050 #### [facility] [address] [place], [address] GFR/1.73 sq M.predicted among non-blacks MDRD (S/P/Bld) [Vol rate/Area] 55 mL/min/{1.73_m2} Low >60 [facility] Comment on above: Order Comment: Order Date: 10/06/24 Order Info: 0184-1 - CBCD Result Comment: mL/m in/1.73m2 CKD-EPI Creatinine Equation (2020) Performed By: #### L 506.1000, L509.1000, L500.4100, L100.0100, L500.4050 #### [facility] [address] [place], [address] Globulin (S) [Mass/Vol] 2.9 g/dL Normal 2.2-4.2 [facility] Comment on above: Order Comment: Order Date: 10/06/24 Order Info: 0184-1 - CBCD Performed By: #### L 506.1000, L509.1000, L500.4100, L100.0100, L500.4050 #### [facility] [address] [place], [address] Glucose [Mass/Vol] 89 mg/dL Normal 70-99 [facility] Comment on above: Order Comment: Order Date: 10/06/24 Order Info: 0184-1 - CBCD Performed By: #### L 506.1000, L509.1000, L500.4100, L100.0100, L500.4050 #### [facility] [address] [place], [address] Potassium [Moles/Vol] 4.6 mmol/L Normal 3.3-5.1 [facility] Comment on above: Order Comment: Order Date: 10/06/24 Order Info: 018-1 - CBCD Performed By: #### L 506.1000, L509.1000, L500.4100, L100.0100, L500.4050 #### [facility] [address] [place], [address] Sodium [Moles/Vol] 139 mmol/L Normal 133-145 [facility] Comment on above: Order Comment: Order Date: 10/06/24 Order Info: 018- - CBCD Performed By: #### L 506.1000, L509.1000, L500.4100, L100.0100, L500.4050 #### [facility] [address] [place], [address] T PROT 7.1 g/dL Normal 5.9-8.4 [facility] Comment on above: Order Comment: Order Date: 10/06/24 Order Info: 018- - CBCD Performed By: #### L 506.1000, L509.1000, L500.4100, L100.0100, L500.4050 #### [facility] [address] [place], [address] Urea nitrogen [Mass/Vol] 20 mg/dL High 4-19 [facility] Comment on above: Order Comment: Order Date: 10/06/24 Order Info: 018-1 - CBCD Performed By: #### L 506.1000, L509.1000, L500.4100, L100.0100, L500.4050 #### [facility] [address] [place], [address] Lipid Profileon 06-01-2025 CHOL:HDL 2.70 Normal [facility] Comment on above: Order Comment: Order Date: 10/06/24 Order Info: 0184-1 - CBCD Performed By: #### L 506.1000, L509.1000, L500.4100, L100.0100, L500.4050 #### [facility] [address] [place], [address] Cholesterol [Mass/Vol] 258 mg/dL High <=200 [facility] Comment on above: Order Comment: Order Date: 10/06/24 Order Info: 0184-1 - CBCD Result Comment: Chol esterol level, Desirable <200 mg/dL Borderline high cholesterol 200-239 mg/dL High cholesterol >=240 mg/dL Recommendations of the NCEP Adult Treatment Panel for the following risk-cutoff thresholds for the [place] population. Performed By: #### L 506.1000, L509.1000, L500.4100, L100.0100, L500.4050 #### [facility] [address] [place], [address] Cholesterol in HDL [Mass/Vol] 96 mg/dL Normal [facility] Comment on above: Order Comment: Order Date: 10/06/24 Order Info: 0184-1 - CBCD Result Comment: Ashley onal Cholesterol Education Program (NCEP) guidelines: <40 mg/dL: Low HDL-cholesterol (major risk factor for CHD) >= 60 mg/dL: High HDL-cholesterol (negative risk factor for CHD) HDL-cholesterol is affected by a number of factors, e.g. smoking, exercise, hormones, sex and age. Performed By: #### L 506.1000, L509.1000, L500.4100, L100.0100, L500.4050 #### [facility] [address] [place], [address] Cholesterol in LDL [Mass/Vol] 143 mg/dL Normal [facility] Comment on above: Order Comment: Order Date: 10/06/24 Order Info: 0184-1 - CBCD Result Comment: Bord eroaod=003-190 mg/dL Higher Uvyy=669 mg/dL or greater Friedwald Equation for LDL-C Performed By: #### L 506.1000, L509.1000, L500.4100, L100.0100, L500.4050 #### [facility] [address] [place], [address] Cholesterol in VLDL [Mass/Vol] 20 mg/dL Normal 5-40 [facility] Comment on above: Order Comment: Order Date: 10/06/24 Order Info: 0184-1 - CBCD Performed By: #### L 506.1000, L509.1000, L500.4100, L100.0100, L500.4050 #### [facility] [address] [place], [address] Triglyceride [Mass/Vol] 99 mg/dL Normal [facility] Comment on above: Order Comment: Order Date: 10/06/24 Order Info: 0184-1 - CBCD Result Comment: The drugs N-Acetylcysteine and Metamizole may falsely depress this assay. Normal range: <150 mg/dL Borderline High: 150-199 mg/dL High: 200-499 mg/dL Very High: >500 mg/dL Performed By: #### L 506.1000, L509.1000, L500.4100, L100.0100, L500.4050 #### [facility] [address] [place], [address] Protein+Creatinine Ratio,Uri neon 06-01-2025 PROT:CRE RATIO 144 mg/g CRE Normal 0-200 [facility] Comment on above: Order Comment: PER Samira ZARCO COMMENT-PROCRE Performed By: #### L 501.0900 #### [facility] [address] [place], [address] Protein (U) [Mass/Vol] 25.7 mg/dL High 0.0-12.0 [facility] Comment on above: Order Comment: PER Samira ZARCO COMMENT-PROCRE Performed By: #### L 501.0900 #### [facility] [address] [place], [address] UR CREAT 179.00 mg/dL Normal 28.00-217. 00 [facility] Comment on above: Order Comment: PER I HAROLDO COMMENT-PROCRE Performed By: #### L 501.0900 #### [facility] [address] [place], [address] Vitamin D,25 Hydroxyon 06-01 Vitamin D 25-OH 43.4 ng/mL Normal 30-100 [facility] Comment on above: Order Comment: Order Date: 10/06/24 Order Info: 0184-1 - CBCD Result Comment: Oksana min D Status Deficiency: <20 ng/mL (50nmol/L) Insufficiency: 20-30 ng/mL (50-75 nmol/L) Sufficiency: 30-100 ng/mL (75-250 nmol/L) Toxicity: >100 ng/mL (>250 nmol/L) Performed By: #### L 506.1000, L509.1000, L500.4100, L100.0100, L500.4050 #### [facility] [address] [place], [address] Absolute lymphocyte countOrd ered By: Maurilio Castillo on 02-01-2025 Lymphocytes Auto (Unsp spec) [#/Vol] 0.93 10*3/uL 0.83-4.51 [facility] Absolute neutrophil countOrd ered By: Maurilio Castillo on 02-01-2025 Neutrophils (Bld) [#/Vol] 2.1 10*3/uL 2.0-7.7 [facility] Anion gap in Serum or Plasma Ordered By: Maurilio Castillo on 02-01-2025 Anion gap [Moles/Vol] 12 mmol/L 5-15 [facility] Automated lymphocyte count a s percentage of total leukocytesOrdered By: Maurilio Castillo on 02-01-2025 Lymphocytes/100 WBC Auto (Unsp spec) 25.9 % 19-41 [facility] BUN/creatinine ratioOrdered By: Maurilio Oharahermes on 02-01-2025 Urea nitrogen/Creatinine [Mass ratio] 16.8 mg/mg 10- [facility] Basophil percentageOrdered B y: Maurilio Atkinsonmaurice on 02-01-2025 Basophils/100 WBC (Bld) 1.1 % High 0-1 [facility] Bilirubin Test strip Ql (U)O rdered By: Maurilio Jonathan on 02-01-2025 Bilirubin Ql (U) Negative Negative [facility] Bilirubin, totalOrdered By: Maurilio Oharahermes on 02-01-2025 Bilirubin [Mass/Vol] 0.31 mg/dL 0.00-1.30 [facility] CBC W/Diff, Automatedon 01-23 Absolute Lymph 0.93 X10 3/uL Normal 0.83-4.51 [facility] Comment on above: Order Comment: Order Date: 10/06/24 Order Info: 0565-1 - PTHIN Performed By: #### L 506.1000, L509.1000, L500.4100, L100.0100, L500.4050 #### [facility] [address] [place], [address] Absolute Neut 2.1 X10 3/uL Normal 2.0-7.7 [facility] Comment on above: Order Comment: Order Date: 10/06/24 Order Info: 0565-1 - PTHIN Performed By: #### L 506.1000, L509.1000, L500.4100, L100.0100, L500.4050 #### [facility] [address] [place], [address] Basophils/100 WBC (Bld) 1.1 % High 0-1 [facility] Comment on above: Order Comment: Order Date: 10/06/24 Order Info: 0565-1 - PTHIN Performed By: #### L 506.1000, L509.1000, L500.4100, L100.0100, L500.4050 #### [facility] [address] [place], [address] Eosinophils/100 WBC (Bld) 3.1 % Normal 0-5 [facility] Comment on above: Order Comment: Order Date: 10/06/24 Order Info: 0565-1 - PTHIN Performed By: #### L 506.1000, L509.1000, L500.4100, L100.0100, L500.4050 #### [facility] [address] [place], [address] Erythrocyte distribution width (RBC) [Ratio] 13.9 % Normal 11.6-14.6 [facility] Comment on above: Order Comment: Order Date: 10/06/24 Order Info: 0565-1 - PTHIN Performed By: #### L 506.1000, L509.1000, L500.4100, L100.0100, L500.4050 #### [facility] [address] [place], [address] Hematocrit (Bld) [Volume fraction] 41.1 % Normal 37-47 [facility] Comment on above: Order Comment: Order Date: 10/06/24 Order Info: 0565-1 - PTHIN Performed By: #### L 506.1000, L509.1000, L500.4100, L100.0100, L500.4050 #### [facility] [address] [place], [address] Hemoglobin (Bld) [Mass/Vol] 12.8 g/dL Normal 12.0-15.0 [facility] Comment on above: Order Comment: Order Date: 10/06/24 Order Info: 0565-1 - PTHIN Performed By: #### L 506.1000, L509.1000, L500.4100, L100.0100, L500.4050 #### [facility] [address] [place], [address] IG% 0.300 Normal 0.0-0.9 [facility] Comment on above: Order Comment: Order Date: 10/06/24 Order Info: 0565-1 - PTHIN Result Comment: IG% - Immature Granulocytes (promyelocytes, myelocytes and metamyelocytes) > 1% indicates that a LEFT SHIFT is Present. Performed By: #### L 506.1000, L509.1000, L500.4100, L100.0100, L500.4050 #### [facility] [address] [place], [address] Lymphocytes/100 WBC (Bld) 25.9 % Normal 19-41 [facility] Comment on above: Order Comment: Order Date: 10/06/24 Order Info: 0565-1 - PTHIN Performed By: #### L 506.1000, L509.1000, L500.4100, L100.0100, L500.4050 #### [facility] [address] [place], [address] MCH (RBC) [Entitic mass] 29.1 pg Normal 27.0-32.0 [facility] Comment on above: Order Comment: Order Date: 10/06/24 Order Info: 0565-1 - PTHIN Performed By: #### L 506.1000, L509.1000, L500.4100, L100.0100, L500.4050 #### [facility] [address] [place], [address] MCHC (RBC) [Mass/Vol] 31.1 g/dL Low 32-36 [facility] Comment on above: Order Comment: Order Date: 10/06/24 Order Info: 0565-1 - PTHIN Performed By: #### L 506.1000, L509.1000, L500.4100, L100.0100, L500.4050 #### [facility] [address] [place], [address] MCV (RBC) [Entitic vol] 93.4 fL Normal 81-99 [facility] Comment on above: Order Comment: Order Date: 10/06/24 Order Info: 0565-1 - PTHIN Performed By: #### L 506.1000, L509.1000, L500.4100, L100.0100, L500.4050 #### [facility] [address] [place], [address] Monocytes/100 WBC (Bld) 10.6 % High 0-10 [facility] Comment on above: Order Comment: Order Date: 10/06/24 Order Info: 0565-1 - PTHIN Performed By: #### L 506.1000, L509.1000, L500.4100, L100.0100, L500.4050 #### [facility] [address] [place], [address] Neutrophils/100 WBC (Bld) 59.0 % Normal 47-70 [facility] Comment on above: Order Comment: Order Date: 10/06/24 Order Info: 0565-1 - PTHIN Performed By: #### L 506.1000, L509.1000, L500.4100, L100.0100, L500.4050 #### [facility] [address] [place], [address] Nucleated RBC (Bld) [#/Vol] 0 10*3/uL Normal 0-5 [facility] Comment on above: Order Comment: Order Date: 10/06/24 Order Info: 0565-1 - PTHIN Performed By: #### L 506.1000, L509.1000, L500.4100, L100.0100, L500.4050 #### [facility] [address] [place], [address] Platelet mean volume (Bld) [Entitic vol] 10.4 fL Normal 6.2-12.0 [facility] Comment on above: Order Comment: Order Date: 10/06/24 Order Info: 0565-1 - PTHIN Performed By: #### L 506.1000, L509.1000, L500.4100, L100.0100, L500.4050 #### [facility] [address] [place], [address] Platelets (Bld) [#/Vol] 292 10*3/uL Normal 150-450 [facility] Comment on above: Order Comment: Order Date: 10/06/24 Order Info: 0565-1 - PTHIN Performed By: #### L 506.1000, L509.1000, L500.4100, L100.0100, L500.4050 #### [facility] [address] [place], [address] RBC (Bld) [#/Vol] 4.40 10*6/uL Normal 4.2-5.4 [facility] Comment on above: Order Comment: Order Date: 10/06/24 Order Info: 0565-1 - PTHIN Performed By: #### L 506.1000, L509.1000, L500.4100, L100.0100, L500.4050 #### [facility] [address] [place], [address] RDW SD 47.6 fl High 35.1-43.9 [facility] Comment on above: Order Comment: Order Date: 10/06/24 Order Info: 0565-1 - PTHIN Performed By: #### L 506.1000, L509.1000, L500.4100, L100.0100, L500.4050 #### [facility] [address] [place], [address] WBC (Bld) [#/Vol] 3.6 10*3/uL Low 4.4-11.0 [facility] Comment on above: Order Comment: Order Date: 10/06/24 Order Info: 0565-1 - PTHIN Performed By: #### L 506.1000, L509.1000, L500.4100, L100.0100, L500.4050 #### [facility] [address] [place], [address] Calculated very low density lipoprotein (VLDL) cholesterol measurementOrdered By: Maurilio Castillo on 02-01-2025 Calculated very low density lipoprotein (VLDL) cholesterol measurement 14 mg/dL 5-40 [facility] Carbon dioxide, total [Moles /volume] in Central venous bloodOrdered By: Maurilio Castillo on 02-01-2025 CO2 [Moles/Vol] 26.0 mmol/L 21.0-32.0 [facility] Chloride assayOrdered By: Ashley Castillo on 02-01-2025 Chloride [Moles/Vol] 102 mmol/L 98-108 [facility] Comprehensive Metabolic Prof ilon 02-01-2025 Albumin [Mass/Vol] 4.3 g/dL Normal 3.4-4.8 [facility] Comment on above: Order Comment: Order Date: 10/06/24 Order Info: 0565-1 - PTHIN Performed By: #### L 506.1000, L509.1000, L500.4100, L100.0100, L500.4050 #### [facility] [address] [place], [address] Albumin/Globulin [Mass ratio] 1.6 {ratio} Normal 0.9-2.4 [facility] Comment on above: Order Comment: Order Date: 10/06/24 Order Info: 0565-1 - PTHIN Performed By: #### L 506.1000, L509.1000, L500.4100, L100.0100, L500.4050 #### [facility] [address] [place], [address] ALK PHOS 90 U/L Normal 35-104 [facility] Comment on above: Order Comment: Order Date: 10/06/24 Order Info: 0565-1 - PTHIN Performed By: #### L 506.1000, L509.1000, L500.4100, L100.0100, L500.4050 #### [facility] [address] [place], [address] ALT [Catalytic activity/Vol] 17 U/L Normal <=34 [facility] Comment on above: Order Comment: Order Date: 10/06/24 Order Info: 0565-1 - PTHIN Performed By: #### L 506.1000, L509.1000, L500.4100, L100.0100, L500.4050 #### [facility] [address] [place], [address] AST [Catalytic activity/Vol] 27 U/L Normal <=31 [facility] Comment on above: Order Comment: Order Date: 10/06/24 Order Info: 0565-1 - PTHIN Performed By: #### L 506.1000, L509.1000, L500.4100, L100.0100, L500.4050 #### [facility] [address] [place], [address] Bilirubin [Mass/Vol] 0.31 mg/dL Normal 0.00-1.30 [facility] Comment on above: Order Comment: Order Date: 10/06/24 Order Info: 0565-1 - PTHIN Performed By: #### L 506.1000, L509.1000, L500.4100, L100.0100, L500.4050 #### [facility] [address] [place], [address] BUN/CRE 16.8 RATIO Normal 10-20 [facility] Comment on above: Order Comment: Order Date: 10/06/24 Order Info: 0565-1 - PTHIN Performed By: #### L 506.1000, L509.1000, L500.4100, L100.0100, L500.4050 #### [facility] [address] [place], [address] Calcium [Mass/Vol] 10.1 mg/dL Normal 7.6-11.0 [facility] Comment on above: Order Comment: Order Date: 10/06/24 Order Info: 0565-1 - PTHIN Performed By: #### L 506.1000, L509.1000, L500.4100, L100.0100, L500.4050 #### [facility] [address] [place], [address] Chloride [Moles/Vol] 102 mmol/L Normal 98-108 [facility] Comment on above: Order Comment: Order Date: 10/06/24 Order Info: 0565-1 - PTHIN Performed By: #### L 506.1000, L509.1000, L500.4100, L100.0100, L500.4050 #### [facility] [address] [place], [address] CO2 [Moles/Vol] 26.0 mmol/L Normal 21.0-32.0 [facility] Comment on above: Order Comment: Order Date: 10/06/24 Order Info: 0565-1 - PTHIN Performed By: #### L 506.1000, L509.1000, L500.4100, L100.0100, L500.4050 #### [facility] [address] [place], [address] Creatinine [Mass/Vol] 1.12 mg/dL Normal 0.70-1.20 [facility] Comment on above: Order Comment: Order Date: 10/06/24 Order Info: 0565-1 - PTHIN Performed By: #### L 506.1000, L509.1000, L500.4100, L100.0100, L500.4050 #### [facility] [address] [place], [address] GAP 12 Normal 5-15 [facility] Comment on above: Order Comment: Order Date: 10/06/24 Order Info: 0565-1 - PTHIN Performed By: #### L 506.1000, L509.1000, L500.4100, L100.0100, L500.4050 #### [facility] [address] [place], [address] GFR/1.73 sq M.predicted among non-blacks MDRD (S/P/Bld) [Vol rate/Area] 52 mL/min/{1.73_m2} Low >60 [facility] Comment on above: Order Comment: Order Date: 10/06/24 Order Info: 0565-1 - PTHIN Result Comment: mL/m in/1.73m2 CKD-EPI Creatinine Equation (2020) Performed By: #### L 506.1000, L509.1000, L500.4100, L100.0100, L500.4050 #### [facility] [address] [place], [address] Globulin (S) [Mass/Vol] 2.7 g/dL Normal 2.2-4.2 [facility] Comment on above: Order Comment: Order Date: 10/06/24 Order Info: 0565-1 - PTHIN Performed By: #### L 506.1000, L509.1000, L500.4100, L100.0100, L500.4050 #### [facility] [address] [place], [address] Glucose [Mass/Vol] 105 mg/dL High 70-99 [facility] Comment on above: Order Comment: Order Date: 10/06/24 Order Info: 0565-1 - PTHIN Performed By: #### L 506.1000, L509.1000, L500.4100, L100.0100, L500.4050 #### [facility] [address] [place], [address] Potassium [Moles/Vol] 4.8 mmol/L Normal 3.3-5.1 [facility] Comment on above: Order Comment: Order Date: 10/06/24 Order Info: 0565-1 - PTHIN Performed By: #### L 506.1000, L509.1000, L500.4100, L100.0100, L500.4050 #### [facility] [address] [place], [address] Sodium [Moles/Vol] 140 mmol/L Normal 133-145 [facility] Comment on above: Order Comment: Order Date: 10/06/24 Order Info: 0565-1 - PTHIN Performed By: #### L 506.1000, L509.1000, L500.4100, L100.0100, L500.4050 #### [facility] [address] [place], [address] T PROT 7.0 g/dL Normal 5.9-8.4 [facility] Comment on above: Order Comment: Order Date: 10/06/24 Order Info: 0565-1 - PTHIN Performed By: #### L 506.1000, L509.1000, L500.4100, L100.0100, L500.4050 #### [facility] [address] [place], [address] Urea nitrogen [Mass/Vol] 19 mg/dL Normal 4-19 [facility] Comment on above: Order Comment: Order Date: 10/06/24 Order Info: 0565-1 - PTHIN Performed By: #### L 506.1000, L509.1000, L500.4100, L100.0100, L500.4050 #### [facility] [address] [place], [address] Eosinophil percentageOrdered By: Maurilio Castillo on 02-01-2025 Eosinophils/100 WBC (Bld) 3.1 % 0-5 [facility] Erythrocyte distribution wid th ratioOrdered By: Maurilio Castillo on 02-01-2025 Erythrocyte distribution width (RBC) [Ratio] 13.9 % 11.6-14.6 [facility] Erythrocyte distribution wid th standard deviationOrdered By: Maurilio Castillo on 02-01-2025 Erythrocyte distribution width (RBC) [Ratio] 47.6 fl High 35.1-43.9 [facility] Glomerular filtration rate ( GFR) estimation/1.73 sq m using serum, plasma, or whole bOrdered By: Maurilio Castillo on 02-01-2025 GFR/1.73 sq M.predicted among non-blacks MDRD (S/P/Bld) [Vol rate/Area] 52 mL/min/{1.73_m2} Low >60 [facility] Comment on above: mL/min/1.73m2 CKD-EP I Creatinine Equation (2020) Hematocrit Auto (Bld) [Volum e fraction]Ordered By: Maurilio Castillo on 02-01-2025 Hematocrit (Bld) [Volume fraction] 41.1 % 37-47 [facility] Hemoglobin measurementOrdere d By: Maurilio Castillo on 02-01-2025 Hemoglobin (Bld) [Mass/Vol] 12.8 g/dL 12.0-15.0 [facility] Immature granulocytes/100 WB C Auto (Bld)Ordered By: Maurilio Castillo on 02-01-2025 Immature granulocytes/100 WBC (Bld) 0.300 % 0.0-0.9 [facility] Comment on above: IG% - Immature Granu locytes (promyelocytes, myelocytes and metamyelocytes) > 1% indicates that a LEFT SHIFT is Present. Ketones Test strip Ql (U)Ord ered By: Maurilio Castillo on 02-01-2025 Ketones Ql (U) Negative Negative [facility] LDL calc ser/plasOrdered By: Maurilio Castillo on 02-01-2025 Cholesterol in LDL [Mass/Vol] 139 mg/dL [facility] Comment on above: Paychqfokz=690-168 m g/dL & Higher Slfj=026 mg/dL or greater Laboratory - Chemistry and C hemistry - challengeOrdered By: Maurilio Castillo on 02-01-2025 AST [Catalytic activity/Vol] 27 U/L <32 [facility] Lipid Profileon 02-01-2025 CHOL:HDL 2.70 Normal [facility] Comment on above: Order Comment: Order Date: 10/06/24 Order Info: 0565-1 - PTHIN Performed By: #### L 506.1000, L509.1000, L500.4100, L100.0100, L500.4050 #### [facility] [address] [place], [place], [address] Cholesterol [Mass/Vol] 244 mg/dL High <=200 [facility] Comment on above: Order Comment: Order Date: 10/06/24 Order Info: 0565-1 - PTHIN Result Comment: Chol esterol level, Desirable <200 mg/dL Borderline high cholesterol 200-239 mg/dL High cholesterol >=240 mg/dL Recommendations of the NCEP Adult Treatment Panel for the following risk-cutoff thresholds for the [place] population. Performed By: #### L 506.1000, L509.1000, L500.4100, L100.0100, L500.4050 #### [facility] [address] [place], [address] Cholesterol in HDL [Mass/Vol] 91 mg/dL Normal [facility] Comment on above: Order Comment: Order Date: 10/06/24 Order Info: 0565-1 - PTHIN Result Comment: Ashley onal Cholesterol Education Program (NCEP) guidelines: <40 mg/dL: Low HDL-cholesterol (major risk factor for CHD) >= 60 mg/dL: High HDL-cholesterol (negative risk factor for CHD) HDL-cholesterol is affected by a number of factors, e.g. smoking, exercise, hormones, sex and age. Performed By: #### L 506.1000, L509.1000, L500.4100, L100.0100, L500.4050 #### [facility] [address] [place], [address] Cholesterol in LDL [Mass/Vol] 139 mg/dL Normal [facility] Comment on above: Order Comment: Order Date: 10/06/24 Order Info: 0565-1 - PTHIN Result Comment: Bord etjyec=612-817 mg/dL Higher Whcf=147 mg/dL or greater Performed By: #### L 506.1000, L509.1000, L500.4100, L100.0100, L500.4050 #### [facility] [address] [place], [address] Cholesterol in VLDL [Mass/Vol] 14 mg/dL Normal 5-40 [facility] Comment on above: Order Comment: Order Date: 10/06/24 Order Info: 0565-1 - PTHIN Performed By: #### L 506.1000, L509.1000, L500.4100, L100.0100, L500.4050 #### [facility] [address] [place], [address] Triglyceride [Mass/Vol] 71 mg/dL Normal [facility] Comment on above: Order Comment: Order Date: 10/06/24 Order Info: 0565-1 - PTHIN Result Comment: The drugs N-Acetylcysteine and Metamizole may falsely depress this assay. Normal range: <150 mg/dL Borderline High: 150-199 mg/dL High: 200-499 mg/dL Very High: >500 mg/dL Performed By: #### L 506.1000, L509.1000, L500.4100, L100.0100, L500.4050 #### [facility] [address] [place], [place], [id number] MCV (mean corpuscular volume ) determinationOrdered By: Maurilio Castillo on 02-01-2025 MCV (RBC) [Entitic vol] 93.4 fL 81-99 [facility] Mean corpuscular hemoglobin (MCH) determinationOrdered By: Maurilio Castillo on 02-01-2025 MCH (RBC) [Entitic mass] 29.1 pg 27.0-32.0 [facility] Mean corpuscular hemoglobin concentration (MCHC) determinationOrdered By: Maurilio Castillo on 02-01-2025 MCHC (RBC) [Mass/Vol] 31.1 g/dL Low 32-36 [facility] Mean platelet volume determi nationOrdered By: Maurilio Castillo on 02-01-2025 Platelet mean volume (Bld) [Entitic vol] 10.4 fL 6.2-12.0 [facility] Microscopic analysis of urin e for red blood cells (RBC)Ordered By: Maurilio Castillo on 02-01-2025 Microscopic analysis of urine for red blood cells (RBC) 0-5 SEEN /hpf 0-5 [facility] Monocyte percentageOrdered B y: Maurilio Castillo on 02-01-2025 Monocytes/100 WBC (Bld) 10.6 % High 0-10 [facility] Mucus LM Ql (Urine sed)Order ed By: Maurilio Castillo on 02-01-2025 Mucus Ql (Urine sed) 0 SEEN /hpf [facility] Neutrophil percentageOrdered By: Maurilio Castillo on 02-01-2025 Neutrophils/100 WBC (Bld) 59.0 % 47-70 [facility] Nitrite Test strip Ql (U)Ord ered By: Maurilio Castillo on 02-01-2025 Nitrite Ql (U) Negative Negative [facility] Nucleated red blood cell per centageOrdered By: Maurilio Castillo on 02-01-2025 Nucleated RBC/100 WBC (Bld) [Ratio] 0 % 0-5 [facility] PTHINon 02-01-2025 PTH 60 pg/mL Normal 11-61 [facility] Comment on above: Order Comment: Order Date: 10/06/24 Order Info: 0565-1 - PTHIN Performed By: #### L 506.1000, L509.1000, L500.4100, L100.0100, L500.4050 #### [facility] [address] [place], [address] Platelet countOrdered By: Ashley Castillo on 02-01-2025 Platelets (Bld) [#/Vol] 292 10*3/uL 150-450 [facility] Potassium measurement (mass/ volume)Ordered By: Maurilio Castillo on 02-01-2025 Potassium (Unsp spec) [Mass/Vol] 4.8 mmol/L 3.3-5.1 [facility] Protein Test strip Ql (U)Ord ered By: Maurilio Castillo on 02-01-2025 Protein Ql (U) 15 mg/dl High Negative [facility] Protein+Creatinine Ratio,Uri neon 02-01-2025 PROT:CRE RATIO 138 mg/g CRE Normal 0-200 [facility] Comment on above: Performed By: #### L 506.1000, L509.1000, L500.4100, L100.0100, L500.4050 #### [facility] [address] [place], [address] Protein (U) [Mass/Vol] 23.4 mg/dL High 0.0-12.0 [facility] Comment on above: Performed By: #### L 506.1000, L509.1000, L500.4100, L100.0100, L500.4050 #### [facility] [address] [place], [address] UR CREAT 170.00 mg/dL Normal 28.00-217. 00 [facility] Comment on above: Performed By: #### L 506.1000, L509.1000, L500.4100, L100.0100, L500.4050 #### [facility] [address] [place], [address] RBC Auto (Bld) [#/Vol]Ordere d By: Maurilio Castillo on 02-01-2025 RBC (Bld) [#/Vol] 4.40 10*6/uL 4.2-5.4 [facility] Random urine creatinine chad urement (mass/volume)Ordered By: Maurilio Castillo on 02-01-2025 Creatinine Unsp time (U) [Mass/Vol] 170.00 mg/dL 28.00-217. 00 [facility] Screening total cholesterol/ high density lipoprotein (HDL) cholesterol ratioOrdered By: Maurilio Castillo on 02-01-2025 Cholesterol.total/Cho lesterol in HDL [Mass ratio] 2.70 {ratio} [facility] Serum creatinine measurement (mass/volume)Ordered By: Maurilio Castillo on 02-01-2025 Creatinine [Mass/Vol] 1.12 mg/dL 0.70-1.20 [facility] Serum globulin measurementOr dered By: Maurilio Castillo on 02-01-2025 Globulin (S) [Mass/Vol] 2.7 g/dL 2.2-4.2 [facility] Serum glucose measurement (m ass/volume)Ordered By: Maurilio Castillo on 02-01-2025 Glucose [Mass/Vol] 105 mg/dL High 70-99 [facility] Serum or plasma alanine quigley otransferase (ALT) measurementOrdered By: Maurilio Castillo on 02-01-2025 ALT [Catalytic activity/Vol] 17 U/L <35 [facility] Serum or plasma albumin chad urement (mass/volume)Ordered By: Maurilio Castillo on 02-01-2025 Albumin [Mass/Vol] 4.3 g/dL 3.4-4.8 [facility] Serum or plasma albumin/glob ulin mass ratioOrdered By: Maurilio Castillo on 02-01-2025 Albumin/Globulin [Mass ratio] 1.6 {ratio} 0.9-2.4 [facility] Serum or plasma alkaline john sphatase measurementOrdered By: Maurilio Castillo on 02-01-2025 ALP [Catalytic activity/Vol] 90 U/L 35-104 [facility] Serum or plasma calcium chad urement (mass/volume)Ordered By: Maurilio Castillo on 02-01-2025 Calcium [Mass/Vol] 10.1 mg/dL 7.6-11.0 [facility] Serum or plasma cholesterol in HDL measurement (mass/volume)Ordered By: Maurilio Castillo on 02-01-2025 Cholesterol in HDL [Mass/Vol] 91 mg/dL >40 [facility] Comment on above: National Cholesterol Education Program (NCEP) guidelines:<40 mg/dL: Low HDL-cholesterol (major risk factor for CHD)>= 60 mg/dL: High HDL-cholesterol (negative risk factor for CHD)HDL-cholesterol is affected by a number of factors, e.g. smoking, exercise, hormones, sex and age. Serum or plasma cholesterol measurement (mass/volume)Ordered By: Maurilio Castillo on 02-01-2025 Cholesterol [Mass/Vol] 244 mg/dL High <201 [facility] Comment on above: Cholesterol level, D esirable <200 mg/dLBorderline high cholesterol 200-239 mg/dLHigh cholesterol >=240 mg/dLRecommendations of the NCEP Adult Treatment Panel for the following risk-cutoff thresholds for the [place] population. Serum or plasma urea nitroge n measurement (mass/volume)Ordered By: Maurilio Castillo on 02-01-2025 Urea nitrogen [Mass/Vol] 19 mg/dL 4-19 [facility] Sodium levelOrdered By: Maurilio Castillo on 02-01-2025 Sodium [Moles/Vol] 140 mmol/L 133-145 [facility] Squamous epithelial cells de tection in urine sediment by light microscopyOrdered By: Maurilio Castillo on 02-01-2025 Epithelial cells.squamous LM Ql (Urine sed) 0-5 SEEN /hpf 5-10 [facility] Total proteinOrdered By: Darrel Castillo on 02-01-2025 Protein [Mass/Vol] 7.0 g/dL 5.9-8.4 [facility] Triglycerides measurementOrd ered By: Maurilio Castillo on 02-01-2025 Triglyceride [Mass/Vol] 71 mg/dL <199 [facility] Comment on above: The drugs N-Acetylcy steine and Metamizole may falsely depress this assay. Normal range: <150 mg/dLBorderline High: 150-199 mg/dLHigh: 200-499 mg/dLVery High: >500 mg/dL Urinalysis, Completeon 02-01 EPI,SQUAMOUS 0-5 SEEN Normal 01-01 [facility] Comment on above: Order Comment: CLEAN CATCH Performed By: #### L 400.0001, L501.0900 #### [facility] [address] [place], [address] RBC 0-5 SEEN Normal 0-5 [facility] Comment on above: Order Comment: CLEAN CATCH Performed By: #### L 400.0001, L501.0900 #### [facility] [address] [place], [address] WBC 0-5 SEEN Normal 0-5 [facility] Comment on above: Order Comment: CLEAN CATCH Performed By: #### L 400.0001, L501.0900 #### [facility] [address] [place], [address] BACTERIA 0 SEEN Normal None Seen [facility] Comment on above: Order Comment: CLEAN CATCH Performed By: #### L 400.0001, L501.0900 #### [facility] [address] [place], [address] Mucus Ql (Urine sed) 0 SEEN Normal [facility] Comment on above: Order Comment: CLEAN CATCH Performed By: #### L 400.0001, L501.0900 #### [facility] [address] [place], [address] Urine clarityOrdered By: Darrel Castillo on 02-01-2025 Clarity (U) Clear Clear [facility] Urine color determinationOrd ered By: Maurilio Castillo on 02-01-2025 Color (U) Yellow Yellow [facility] Urine glucose detectionOrder ed By: Maurilio Castillo on 02-01-2025 Glucose Ql (U) Normal mg/dl Normal [facility] Urine leukocyte esterase det ection by dipstickOrdered By: Maurilio Castillo on 02-01-2025 Leukocyte esterase Test strip Ql (U) Negative Negative [facility] Urine pHOrdered By: Maurilio mirza on 02-01-2025 pH (U) 8.0 [pH] 5.0 - 8.0 [facility] Urine protein measurement (m ass/volume)Ordered By: Maurilio Castillo on 02-01-2025 Protein (U) [Mass/Vol] 23.4 mg/dL High 0.0-12.0 [facility] Urine protein/creatinine mas s ratioOrdered By: Maurilio Castillo on 02-01-2025 Protein/Creatinine (U) [Mass ratio] 138 mg/g CRE 0-200 [facility] Urine sediment bacteria coun t by microscopy (number/high power field)Ordered By: Maurilio Castillo on 02-01-2025 Bacteria LM.HPF (Urine sed) [#/Area] 0 /[HPF] None Seen [facility] Urine specific gravity measu rementOrdered By: Maurilio Castillo on 02-01-2025 Specific gravity (U) [Rel density] 1.015 1.002-1.03 0 [facility] Urine urobilinogen measureme ntOrdered By: Maurilio Castillo on 02-01-2025 Urobilinogen Ql (U) Normal mg/dl Normal [facility] Vitamin D,25 Hydroxyon 02-01 Vitamin D 25-OH 46.0 ng/mL Normal 30-100 [facility] Comment on above: Order Comment: Order Date: 02/01/25 Order Info: [id number] - CMP Order Info: 54054-7 - LIPID Result Comment: Oksana min D Status Deficiency: <20 ng/mL (50nmol/L) Insufficiency: 20-30 ng/mL (50-75 nmol/L) Sufficiency: 30-100 ng/mL (75-250 nmol/L) Toxicity: >100 ng/mL (>250 nmol/L) Performed By: #### L 506.1001 #### [facility] [address] [place], [address] White blood cell (WBC) count Ordered By: Maurilio Castillo on 02-01-2025 WBC (Bld) [#/Vol] 3.6 10*3/uL Low 4.4-11.0 [facility] White blood cell countOrdere d By: Maurilio Castillo on 02-01-2025 White blood cell count 0-5 SEEN /hpf 0-5 [facility] Bone density reportOrdered B y: Moody Green on 12-27-2024 Study report Skeletal system DXA [facility] Imaging Services [address] [place], [place] [id number] Dexa Bone Density Study MR#: [id number] Acct: [id number] Name: MAYA CURRY Rep #: [id number] : 1950 F 74 From: Lorrie Green MD PCP: Dr. Maurilio Castillo MD Status: RE G CLI Study:Dexa Bone Density Study Date of Exam: 12/21/24 Exam# [id number] Ordering Dr: Maurilio Castillo MD PROCEDURE: DEXA BONE DENSITY STUDY REASON FOR EXAM: None provided TECHNIQUE: DEXA scan of the lumbar spine and bilateral hips, using a Hologic Horizon W unit. REFERENCE LINKS: ISCD Adult Positions COMPARISON: 12/11/2022 FINDINGS: LUMBAR SPINE: Bone mineral denisty, L1-L4: 0.747 g/cm? T-score: -2.5 LEFT FEMORAL NECK: Bone mineral denisty: 0.712 g/cm? T-score: -1.2 LEFT TOTAL HIP: Bone mineral denisty: 0.708 g/cm? T-score: -1.9 RIGHT FEMORAL NECK: Bone mineral denisty: 0.824 g/cm? T-score: -0.2 RIGHT TOTAL HIP: Bone mineral denisty: 0.739 g/cm? T-score: -1.7 FRAX*: 10 Year Probability of Fracture: Major Osteoporotic Fracture(1): 24.0% Hip Fracture(2): 4.4% Note that these are likely underestimates given that they are based on the bone mineral density measured at the hips rather than the lowest measured bone mineral density which was within the lumbar spine. *FRAX is a trademark of the [employer]'s [employer] for Metabolic Bone Disease, World Health Organization (WHO) Collaborating Orion. 1-Major Osteoporotic Fracture: Clinical Spine, Forearm, Hip or Shoulder. 2-The 10-year probability of fracture may be lower than reported if the patient has received treatment. The National Osteoporosis Foundation recommends that medical therapy be considered in postmenopausal women and men, age 50 and older, with a: * hip or vertebral fracture * T-score less than or equal to -2.5 in the spine or hip * T-score between -1.0 and -2.5 and FRAX equal to or less than 3 percent for hipfracture or equal to or less than 20 percent for major osteoporotic fracture. World Health Organization criteria for BMD interpretation classify patients as Normal (T-score at or above -1.0), Osteopenic (T-score between -1.0 and -2.5), or Osteoporotic (T-score at or below -2.5). BD/Dexa Bone Density Study IMPRESSION: 1. Findings are borderline but technically represent osteoporosis. 2. Since the prior exam, there has been a decrease of 0.4% in the bone mineral density of the lumbar spine. 3. Additional description as above. Reading Location: [id number] CC: Dr. Maurilio Castillo MD ~ Air Brake Tester: Signed [facility] Breast imaging reportOrdered By: Nola Gomes on 12-22-2024 Study report [facility] Imaging Services [address] [place], [place] [address] SCRN MAMM (CAD)W/LEBRON VASQUEZ MR#: [id number] Acct: [id number] Name: MAYA CURRY Rep #: [id number] : 1950 F 74 From: Yuki Gomes MD PCP: Dr. Maurilio Castillo MD Status: RE G CLI Study:SCRN MAMM (CAD)W/LEBRON BILAT Date of Exa m: 12/21/24 Exam# [id number] Ordering Dr: Maurilio Castillo MD EXAM: SCRN MAMM (CAD)W/LEBRON BILAT 12/21/2024 CLINICAL HISTORY: F, Age 74 y/o , SCREENING. Personal history of right breast cancer in 2009 status post lumpectomy, axillary dissection radiation and chemotherapy. TECHNIQUE: Bilateral screening digital breast tomosynthesis with 2D and 3D images. Computeraided detection. COMPARISON: Prior exam(s) dated 12/15/2023, 12/11/2022, 12/06/2021. FINDINGS: TISSUE DENSITY: The breast tissue is composed of scattered area of fibroglandular density. Bilateral Breast Mammographic Findings: No significant masses, calcifications or other abnormalities are identified. BI/SCRN MAMM (CAD)W/LEBRON BILAT IMPRESSION: Right Breast: BIRADS 1 NEGATIVE. Left Breast: BIRADS 1 NEGATIVE. OVERALL FINAL ASSESSMENT: BIRADS 1 NEGATIVE. RECOMMENDATION: Routine annual follow-up in 1 Year A letter with findings and recommendations will be mailed to the patient. Reading Location: [facility] CC: Dr. Maurilio Castillo MD ~ Air Brake Tester: Signed [facility] Dexa Bone Density Studyon Dexa Bone Density Study [facility] Imaging Services [address] [place] [address] Dexa Bone Density Study MR#: [id number] Acct: [id number] Name: MAYA CURRY Rep #: [id number] : 1950 F 74 From: Moody Green MD PCP: Dr. Maurilio Castillo MD Status: REG CLI Study: Dexa Bone Density Study Date of Exam: 12/21/24 Exam# [id number] Ordering Dr: Maurilio Castillo MD PROCEDURE: DEXA BONE DENSITY STUDY REASON FOR EXAM: None provided TECHNIQUE: DEXA scan of the lumbar spine and bilateral hips, using a Hologic Horizon W unit. REFERENCE LINKS: ISCD Adult Positions COMPARISON: 12/11/2022 FINDINGS: LUMBAR SPINE: Bone mineral denisty, L1-L4: 0.747 g/cm??? T-score: -2.5 LEFT FEMORAL NECK: Bone mineral denisty: 0.712 g/cm??? T-score: -1.2 LEFT TOTAL HIP: Bone mineral denisty: 0.708 g/cm??? T-score: -1.9 RIGHT FEMORAL NECK: Bone mineral denisty: 0.824 g/cm??? T-score: -0.2 RIGHT TOTAL HIP: Bone mineral denisty: 0.739 g/cm??? T-score: -1.7 FRAX*: 10 Year Probability of Fracture: Major Osteoporotic Fracture(1): 24.0% Hip Fracture(2): 4.4% Note that these are likely underestimates given that they are based on the bone mineral density measured at the hips rather than the lowest measured bone mineral density which was within the lumbar spine. *FRAX is a trademark of the [employer]'s [employer] for Metabolic Bone Disease, World Health Organization (WHO) Collaborating Orion. 1-Major Osteoporotic Fracture: Clinical Spine, Forearm, Hip or Shoulder. 2-The 10-year probability of fracture may be lower than reported if the patient has received treatment. The National Osteoporosis Foundation recommends that medical therapy be considered in postmenopausal women and men, age 50 and older, with a: * hip or vertebral fracture * T-score less than or equal to -2.5 in the spine or hip * T-score between -1.0 and -2.5 and FRAX equal to or less than 3 percent for hip fracture or equal to or less than 20 percent for major osteoporotic fracture. World Health Organization criteria for BMD interpretation classify patients as Normal (T-score at or above -1.0), Osteopenic (T-score between -1.0 and -2.5), or Osteoporotic (T-score at or below -2.5). BD/Dexa Bone Density Study IMPRESSION: 1. Findings are borderline but technically represent osteoporosis. 2. Since the prior exam, there has been a decrease of 0.4% in the bone mineral density of the lumbar spine. 3. Additional description as above. Reading Location: [id number] CC: Dr. Maurilio Castillo MD Air Brake Tester: Signed Normal [facility] SCRN MAMM (CAD)W/LEBRON BILATo n 12-21-2024 SCRN MAMM (CAD)W/LEBRON BILAT [facility] Imaging Services [address] [place], [place] [address] SCRN MAMM (CAD)W/LEBRON BILAT MR#: [id number] Acct: [id number] Name: MAYA CURRY Rep #: [id number] : 1950 F 74 From: Nola Gomes MD PCP: Dr. Maurilio Castillo MD Status: REG CLI Study: SCRN MAMM (CAD)W/LEBRON BILAT Date of Exam: 11/24 05/19 Exam# [id number] Ordering Dr: Maurilio Castillo MD EXAM: SCRN MAMM (CAD)W/LEBRON BILAT 12/21/2024 CLINICAL HISTORY: F, Age 74 y/o , SCREENING. Personal history of right breast cancer in 2009 status post lumpectomy, axillary dissection radiation and chemotherapy. TECHNIQUE: Bilateral screening digital breast tomosynthesis with 2D and 3D images. Computer aided detection. COMPARISON: Prior exam(s) dated 12/15/2023, 12/11/2022, 12/06/2021. FINDINGS: TISSUE DENSITY: The breast tissue is composed of scattered area of fibroglandular density. Bilateral Breast Mammographic Findings: No significant masses, calcifications or other abnormalities are identified. BI/SCRN MAMM (CAD)W/LEBRON BILAT IMPRESSION: Right Breast: BIRADS 1 NEGATIVE. Left Breast: BIRADS 1 NEGATIVE. OVERALL FINAL ASSESSMENT: BIRADS 1 NEGATIVE. RECOMMENDATION: Routine annual follow-up in 1 Year A letter with findings and recommendations will be mailed to the patient. Reading Location: [id number] CC: Dr. Maurilio Castillo MD Air Brake Tester: Signed Normal [facility] Absolute lymphocyte countOrd ered By: Maurilio Castillo on 10-06-2024 Lymphocytes Auto (Unsp spec) [#/Vol] 1.51 10*3/uL 0.83-4.51 [facility] Absolute neutrophil countOrd ered By: Maurilio Castillo on 10-06-2024 Neutrophils (Bld) [#/Vol] 2.4 10*3/uL 2.0-7.7 [facility] Albumin to globulin ratioOrd ered By: Maurilio Castillo on 10-06-2024 Albumin/Globulin [Mass ratio] 1.1 {ratio} 0.9-2.4 [facility] Automated lymphocyte count a s percentage of total leukocytesOrdered By: Maurilio Castillo on 10-06-2024 Lymphocytes/100 WBC Auto (Unsp spec) 33.2 % 19-41 [facility] Basophil percentageOrdered B y: Maurilio Castillo on 10-06-2024 Basophils/100 WBC (Bld) 1.1 % High 0-1 [facility] Bilirubin, totalOrdered By: Maurilio Castillo on 10-06-2024 Bilirubin [Mass/Vol] 0.30 mg/dL 0.20-1.00 [facility] Comment on above: For patients on eltr ombopag therapy, use of Dimension [place] TBIL is not recommended. Blood urea nitrogen (BUN)/cr eatinine ratioOrdered By: Maurilio Castillo on 10-06-2024 Urea nitrogen/Creatinine [Mass ratio] 20.9 mg/mg High 10-20 [facility] CBC W/Diff, Automatedon 09-25 Absolute Lymph 1.51 X10 3/uL Normal 0.83-4.51 [facility] Comment on above: Order Comment: Order Date: 10/06/24 Order Info: [id number] - CBCD Performed By: #### L 506.1000, L509.1000, L500.4100, L100.0100, L500.4050 #### [facility] [address] [place] [address], [address] Absolute Neut 2.4 X10 3/uL Normal 2.0-7.7 [facility] Comment on above: Order Comment: Order Date: 10/06/24 Order Info: [id number] - CBCD Performed By: #### L 506.1000, L509.1000, L500.4100, L100.0100, L500.4050 #### [facility] [address] [place], [address] Basophils/100 WBC (Bld) 1.1 % High 0-1 [facility] Comment on above: Order Comment: Order Date: 10/06/24 Order Info: [id number] - CBCD Performed By: #### L 506.1000, L509.1000, L500.4100, L100.0100, L500.4050 #### [facility] [address] [place], [address] Eosinophils/100 WBC (Bld) 2.4 % Normal 0-5 [facility] Comment on above: Order Comment: Order Date: 10/06/24 Order Info: [id number]- - CBCD Performed By: #### L 506.1000, L509.1000, L500.4100, L100.0100, L500.4050 #### [facility] [address] [place], [address] Erythrocyte distribution width (RBC) [Ratio] 14.6 % Normal 11.6-14.6 [facility] Comment on above: Order Comment: Order Date: 10/06/24 Order Info: [id number] - CBCD Performed By: #### L 506.1000, L509.1000, L500.4100, L100.0100, L500.4050 #### [facility] [address] [place], [address] Hematocrit (Bld) [Volume fraction] 40.2 % Normal 37-47 [facility] Comment on above: Order Comment: Order Date: 10/06/24 Order Info: [id number] - CBCD Performed By: #### L 506.1000, L509.1000, L500.4100, L100.0100, L500.4050 #### [facility] [address] [place], [address] Hemoglobin (Bld) [Mass/Vol] 12.4 g/dL Normal 12.0-15.0 [facility] Comment on above: Order Comment: Order Date: 10/06/24 Order Info: [id number] - CBCD Performed By: #### L 506.1000, L509.1000, L500.4100, L100.0100, L500.4050 #### [facility] [address] [place], [address] IG% 0.200 Normal 0.0-0.9 [facility] Comment on above: Order Comment: Order Date: 10/06/24 Order Info: [id number] - CBCD Result Comment: IG% - Immature Granulocytes (promyelocytes, myelocytes and metamyelocytes) > 1% indicates that a LEFT SHIFT is Present. Performed By: #### L 506.1000, L509.1000, L500.4100, L100.0100, L500.4050 #### [facility] [address] [place], [address] Lymphocytes/100 WBC (Bld) 33.2 % Normal 19-41 [facility] Comment on above: Order Comment: Order Date: 10/06/24 Order Info: [id number] - CBCD Performed By: #### L 506.1000, L509.1000, L500.4100, L100.0100, L500.4050 #### [facility] [address] [place], [address] MCH (RBC) [Entitic mass] 28.9 pg Normal 27.0-32.0 [facility] Comment on above: Order Comment: Order Date: 10/06/24 Order Info: 018- - CBCD Performed By: #### L 506.1000, L509.1000, L500.4100, L100.0100, L500.4050 #### [facility] [address] [place], [address] MCHC (RBC) [Mass/Vol] 30.8 g/dL Low 32-36 [facility] Comment on above: Order Comment: Order Date: 10/06/24 Order Info: [id number] - CBCD Performed By: #### L 506.1000, L509.1000, L500.4100, L100.0100, L500.4050 #### [facility] [address] [place], [address] MCV (RBC) [Entitic vol] 93.7 fL Normal 81-99 [facility] Comment on above: Order Comment: Order Date: 10/06/24 Order Info: [id number]- - CBCD Performed By: #### L 506.1000, L509.1000, L500.4100, L100.0100, L500.4050 #### [facility] [address] [place], [address] Monocytes/100 WBC (Bld) 9.9 % Normal 0-10 [facility] Comment on above: Order Comment: Order Date: 10/06/24 Order Info: [id number]- - CBCD Performed By: #### L 506.1000, L509.1000, L500.4100, L100.0100, L500.4050 #### [facility] [address] [place], [address] Neutrophils/100 WBC (Bld) 53.2 % Normal 47-70 [facility] Comment on above: Order Comment: Order Date: 10/06/24 Order Info: [id number] - CBCD Performed By: #### L 506.1000, L509.1000, L500.4100, L100.0100, L500.4050 #### [facility] [address] [place], [address] Nucleated RBC (Bld) [#/Vol] 0 10*3/uL Normal 0-5 [facility] Comment on above: Order Comment: Order Date: 10/06/24 Order Info: [id number] - CBCD Performed By: #### L 506.1000, L509.1000, L500.4100, L100.0100, L500.4050 #### [facility] [address] [place], [address] Platelet mean volume (Bld) [Entitic vol] 10.2 fL Normal 6.2-12.0 [facility] Comment on above: Order Comment: Order Date: 10/06/24 Order Info: [id number]- - CBCD Performed By: #### L 506.1000, L509.1000, L500.4100, L100.0100, L500.4050 #### [facility] [address] [place], [address] Platelets (Bld) [#/Vol] 308 10*3/uL Normal 150-450 [facility] Comment on above: Order Comment: Order Date: 10/06/24 Order Info: [id number]- - CBCD Performed By: #### L 506.1000, L509.1000, L500.4100, L100.0100, L500.4050 #### [facility] [address] [place], [address] RBC (Bld) [#/Vol] 4.29 10*6/uL Normal 4.2-5.4 [facility] Comment on above: Order Comment: Order Date: 10/06/24 Order Info: [id number] - CBCD Performed By: #### L 506.1000, L509.1000, L500.4100, L100.0100, L500.4050 #### [facility] [address] [place], [address] RDW SD 49.7 fl High 35.1-43.9 [facility] Comment on above: Order Comment: Order Date: 10/06/24 Order Info: [id number] - CBCD Performed By: #### L 506.1000, L509.1000, L500.4100, L100.0100, L500.4050 #### [facility] [address] [place], [place], [id number] WBC (Bld) [#/Vol] 4.6 10*3/uL Normal 4.4-11.0 [facility] Comment on above: Order Comment: Order Date: 10/06/24 Order Info: [id number] - CBCD Performed By: #### L 506.1000, L509.1000, L500.4100, L100.0100, L500.4050 #### [facility] [address] [place], [address] Carbon dioxide measurementOr dered By: Maurilio Castillo on 10-06-2024 CO2 [Moles/Vol] 27.0 mmol/L 21.0-32.0 [facility] Chloride measurementOrdered By: Maurilio Castillo on 10-06-2024 Chloride [Moles/Vol] 103 mmol/L 98-107 [facility] Comprehensive Metabolic Prof ilon 10-06-2024 Albumin [Mass/Vol] 3.6 g/dL Normal 3.2-5.0 [facility] Comment on above: Order Comment: Order Date: 10/06/24 Order Info: [id number] - CMP Order Info: [id number] - LIPID Performed By: #### L 506.1000, L509.1000, L500.4100, L100.0100, L500.4050 #### [facility] [address] [place], [address] Albumin/Globulin [Mass ratio] 1.1 {ratio} Normal 0.9-2.4 [facility] Comment on above: Order Comment: Order Date: 10/06/24 Order Info: [id number] - CMP Order Info: [id number] - LIPID Performed By: #### L 506.1000, L509.1000, L500.4100, L100.0100, L500.4050 #### [facility] [address] [place], [address] ALK P 87 U/L Normal 45-117 [facility] Comment on above: Order Comment: Order Date: 10/06/24 Order Info: [id number] - CMP Order Info: [id number] - LIPID Performed By: #### L 506.1000, L509.1000, L500.4100, L100.0100, L500.4050 #### [facility] [address] [place], [address] ALT [Catalytic activity/Vol] 18 U/L Normal 13-56 [facility] Comment on above: Order Comment: Order Date: 10/06/24 Order Info: 0786- - CMP Order Info: [id number] - LIPID Performed By: #### L 506.1000, L509.1000, L500.4100, L100.0100, L500.4050 #### [facility] [address] [place], [place], [address] AST [Catalytic activity/Vol] 21 U/L Normal 15-37 [facility] Comment on above: Order Comment: Order Date: 10/06/24 Order Info: 0786- - CMP Order Info: [id number] - LIPID Performed By: #### L 506.1000, L509.1000, L500.4100, L100.0100, L500.4050 #### [facility] [address] [place], [address] Bilirubin [Mass/Vol] 0.30 mg/dL Normal 0.20-1.00 [facility] Comment on above: Order Comment: Order Date: 10/06/24 Order Info: [id number] - CMP Order Info: [id number] - LIPID Result Comment: For patients on eltrombopag therapy, use of Dimension [place] TBIL is not recommended. Performed By: #### L 506.1000, L509.1000, L500.4100, L100.0100, L500.4050 #### [facility] [address] [place], [address] BUN/CRE 20.9 RATIO High 10-20 [facility] Comment on above: Order Comment: Order Date: 10/06/24 Order Info: [id number] - CMP Order Info: [id number] - LIPID Performed By: #### L 506.1000, L509.1000, L500.4100, L100.0100, L500.4050 #### [facility] [address] [place], [address] CA,Total 9.2 mg/dL Normal 8.5-10.1 [facility] Comment on above: Order Comment: Order Date: 10/06/24 Order Info: 0786- - CMP Order Info: [id number] - LIPID Performed By: #### L 506.1000, L509.1000, L500.4100, L100.0100, L500.4050 #### [facility] [address] [place], [address] Chloride [Moles/Vol] 103 mmol/L Normal 98-107 [facility] Comment on above: Order Comment: Order Date: 10/06/24 Order Info: 0786- - CMP Order Info: [id number] - LIPID Performed By: #### L 506.1000, L509.1000, L500.4100, L100.0100, L500.4050 #### [facility] [address] [place], [address] CO2 [Moles/Vol] 27.0 mmol/L Normal 21.0-32.0 [facility] Comment on above: Order Comment: Order Date: 10/06/24 Order Info: [id number] - CMP Order Info: [id number] - LIPID Performed By: #### L 506.1000, L509.1000, L500.4100, L100.0100, L500.4050 #### [facility] [address] [place], [address] Creatinine [Mass/Vol] 1.10 mg/dL High 0.55-1.02 [facility] Comment on above: Order Comment: Order Date: 10/06/24 Order Info: 0786 - CMP Order Info: [id number] - LIPID Result Comment: The validity of the calculated GFR GFRAA in patients over 70 years has not been determined. Clinical correlation is essential. Performed By: #### L 506.1000, L509.1000, L500.4100, L100.0100, L500.4050 #### [facility] [address] [place], [address] EST GFR - AA 62 mL/min Normal >60 [facility] Comment on above: Order Comment: Order Date: 10/06/24 Order Info: 07 - CMP Order Info: [id number] - LIPID Result Comment: Afri can Libyan GFR Calc Performed By: #### L 506.1000, L509.1000, L500.4100, L100.0100, L500.4050 #### [facility] [address] [place], [address] GAP 7 Normal 5-15 [facility] Comment on above: Order Comment: Order Date: 10/06/24 Order Info: 0786- - CMP Order Info: [id number] - LIPID Performed By: #### L 506.1000, L509.1000, L500.4100, L100.0100, L500.4050 #### [facility] [address] [place], [place], [id number] GFR/1.73 sq M.predicted among non-blacks MDRD (S/P/Bld) [Vol rate/Area] 52 mL/min/{1.73_m2} Low >60 [facility] Comment on above: Order Comment: Order Date: 10/06/24 Order Info: 0786 - CMP Order Info: [id number] - LIPID Result Comment: Non- GFR Calc Performed By: #### L 506.1000, L509.1000, L500.4100, L100.0100, L500.4050 #### [facility] [address] [place], [address] Globulin (S) [Mass/Vol] 3.2 g/dL Normal 2.2-4.2 [facility] Comment on above: Order Comment: Order Date: 10/06/24 Order Info: 0786- - CMP Order Info: [id number] - LIPID Performed By: #### L 506.1000, L509.1000, L500.4100, L100.0100, L500.4050 #### [facility] [address] [place], [address] Glucose [Mass/Vol] 77 mg/dL Normal 74-106 [facility] Comment on above: Order Comment: Order Date: 10/06/24 Order Info: 0786 - CMP Order Info: [id number] - LIPID Performed By: #### L 506.1000, L509.1000, L500.4100, L100.0100, L500.4050 #### [facility] [address] [place], [address] Potassium [Moles/Vol] 3.8 mmol/L Normal 3.5-5.1 [facility] Comment on above: Order Comment: Order Date: 10/06/24 Order Info: 0786- - CMP Order Info: [id number] - LIPID Performed By: #### L 506.1000, L509.1000, L500.4100, L100.0100, L500.4050 #### [facility] [address] [place], [address] Sodium [Moles/Vol] 137 mmol/L Normal 136-145 [facility] Comment on above: Order Comment: Order Date: 10/06/24 Order Info: 0786- - CMP Order Info: [id number] - LIPID Performed By: #### L 506.1000, L509.1000, L500.4100, L100.0100, L500.4050 #### [facility] [address] [place], [address] T PROT 6.8 g/dL Normal 6.4-8.2 [facility] Comment on above: Order Comment: Order Date: 10/06/24 Order Info: [id number] - CMP Order Info: [id number] - LIPID Performed By: #### L 506.1000, L509.1000, L500.4100, L100.0100, L500.4050 #### [facility] [address] [place], [place], [id number] Urea nitrogen [Mass/Vol] 23 mg/dL High 7-18 [facility] Comment on above: Order Comment: Order Date: 10/06/24 Order Info: [id number] - CMP Order Info: [id number] - LIPID Performed By: #### L 506.1000, L509.1000, L500.4100, L100.0100, L500.4050 #### [facility] [address] [place], [place], [id number] Eosinophil percentageOrdered By: Maurilio Castillo on 10-06-2024 Eosinophils/100 WBC (Bld) 2.4 % 0-5 [facility] Erythrocyte distribution wid th ratioOrdered By: Maurilio Castillo on 10-06-2024 Erythrocyte distribution width (RBC) [Ratio] 14.6 % 11.6-14.6 [facility] Erythrocyte distribution wid th standard deviationOrdered By: Maurilio Castillo on 10-06-2024 Erythrocyte distribution width (RBC) [Ratio] 49.7 fl High 35.1-43.9 [facility] Glomerular filtration rate ( GFR) estimationOrdered By: Maurilio Castillo on 10-06-2024 GFR/1.73 sq M.predicted among non-blacks MDRD (S/P/Bld) [Vol rate/Area] 52 mL/min/{1.73_m2} Low >60 [facility] Comment on above: Non- GFR Calc Glucose measurementOrdered B y: Maurilio Castillo on 10-06-2024 Glucose [Mass/Vol] 77 mg/dL 74-106 [facility] Hematocrit Auto (Bld) [Volum e fraction]Ordered By: Maurilio Castillo on 10-06-2024 Hematocrit (Bld) [Volume fraction] 40.2 % 37-47 [facility] Hemoglobin measurementOrdere d By: Maurilio Castillo on 10-06-2024 Hemoglobin (Bld) [Mass/Vol] 12.4 g/dL 12.0-15.0 [facility] High density lipoprotein (HD L) measurementOrdered By: Maurilio Castillo on 10-06-2024 Cholesterol in HDL [Mass/Vol] 96 mg/dL >40 [facility] Comment on above: The drugs N-Acetylcy steine and Metamizole may falsely depress this assay. Reference Range HDL <40 mg/dL Low HDL Cholesterol HDL >or= 60 mg/dL High HDL Cholesterol Immature granulocytes/100 WB C Auto (Bld)Ordered By: Maurilio Castillo on 10-06-2024 Immature granulocytes/100 WBC (Bld) 0.200 % 0.0-0.9 [facility] Comment on above: IG% - Immature Granu locytes (promyelocytes, myelocytes and metamyelocytes) > 1% indicates that a LEFT SHIFT is Present. Laboratory - Chemistry and C hemistry - challengeOrdered By: Maurilio Castillo on 10-06-2024 AST [Catalytic activity/Vol] 21 U/L 15-37 [facility] Lipid Profileon 10-06-2024 Cholesterol [Mass/Vol] 241 mg/dL High 200 [facility] Comment on above: Order Comment: Order Date: 10/06/24 Order Info: [id number] - CMP Order Info: [id number] - LIPID Result Comment: <200 mg/dL Desirable 200-240 mg/dL Borderline >240 mg/dL High Risk Performed By: #### L 506.1000, L509.1000, L500.4100, L100.0100, L500.4050 #### [facility] [address] [facility] [place], [place], [id number] Cholesterol in HDL [Mass/Vol] 96 mg/dL Normal [facility] Comment on above: Order Comment: Order Date: 10/06/24 Order Info: [id number] - CMP Order Info: [id number] - LIPID Result Comment: The drugs N-Acetylcysteine and Metamizole may falsely depress this assay. Reference Range HDL <40 mg/dL Low HDL Cholesterol HDL >or= 60 mg/dL High HDL Cholesterol Performed By: #### L 506.1000, L509.1000, L500.4100, L100.0100, L500.4050 #### [facility] [address] [place], [address] Cholesterol in LDL [Mass/Vol] 123 mg/dL Normal 0-130 [facility] Comment on above: Order Comment: Order Date: 10/06/24 Order Info: [id number] - [facility] Order Info: [id number] - LIPID Performed By: #### L 506.1000, L509.1000, L500.4100, L100.0100, L500.4050 #### [facility] [address] [place], [address] Cholesterol in VLDL [Mass/Vol] 22 mg/dL Normal 5-40 [facility] Comment on above: Order Comment: Order Date: 10/06/24 Order Info: [id number] - [facility] Order Info: [id number] - LIPID Performed By: #### L 506.1000, L509.1000, L500.4100, L100.0100, L500.4050 #### [facility] [address] [place] [place], [address] Triglyceride [Mass/Vol] 112 mg/dL Normal [facility] Comment on above: Order Comment: Order Date: 10/06/24 Order Info: 0786-1 - [facility] Order Info: [id number] - LIPID Result Comment: The drugs N-Acetylcysteine and Metamizole may falsely depress this assay. Serum Triglycerides Reference Interval Normal <150 mg/dL Borderline high 150 - 199 mg/dL High 200 - 499 mg/dL Very High > or = 500 mg/dL Performed By: #### L 506.1000, L509.1000, L500.4100, L100.0100, L500.4050 #### [facility] [address] [place], [address] Low density lipoprotein (LDL ) cholesterol measurementOrdered By: Maurilio Castillo on 10-06-2024 Cholesterol in LDL [Mass/Vol] 123 mg/dL 0-130 [facility] MCV (mean corpuscular volume ) determinationOrdered By: Maurilio Castillo on 10-06-2024 MCV (RBC) [Entitic vol] 93.7 fL 81-99 [facility] Mean corpuscular hemoglobin (MCH) determinationOrdered By: Maurilio Castillo on 10-06-2024 MCH (RBC) [Entitic mass] 28.9 pg 27.0-32.0 [facility] Mean corpuscular hemoglobin concentration (MCHC) determinationOrdered By: Maurilio Castillo on 10-06-2024 MCHC (RBC) [Mass/Vol] 30.8 g/dL Low 32-36 [facility] Mean platelet volume determi nationOrdered By: Maurilio Castillo on 10-06-2024 Platelet mean volume (Bld) [Entitic vol] 10.2 fL 6.2-12.0 [facility] Microalbumin,Random Urineon 10-06-2024 MICROALBUMIN,UR 28.0 mg/L Normal NO RANGE EST. [facility] Comment on above: Performed By: #### L 501.0900, L502.0500 #### [facility] [address] [place] [address], [address] Monocyte percentageOrdered B y: Maurilio Castillo on 10-06-2024 Monocytes/100 WBC (Bld) 9.9 % 0-10 [facility] Neutrophil percentageOrdered By: Maurilio Castillo on 10-06-2024 Neutrophils/100 WBC (Bld) 53.2 % 47-70 [facility] Nucleated red blood cell per centageOrdered By: Maurilio Castillo on 10-06-2024 Nucleated RBC/100 WBC (Bld) [Ratio] 0 % 0-5 [facility] PTHINon 10-06-2024 PTH 72.3 pg/mL Normal 18.4-80.1 [facility] Comment on above: Order Comment: Order Date: 10/06/24 Order Info: [id number] - PTHIN Performed By: #### L 506.1000, L509.1000, L500.4100, L100.0100, L500.4050 #### [facility] [address] [place], [address] Platelet countOrdered By: Ashley Castillo on 10-06-2024 Platelets (Bld) [#/Vol] 308 10*3/uL 150-450 [facility] Potassium measurementOrdered By: Maurilio Castillo on 10-06-2024 Potassium [Moles/Vol] 3.8 mmol/L 3.5-5.1 [facility] Protein+Creatinine Ratio,Uri neon 10-06-2024 PROT:CRE RATIO 89 mg/g CRE Normal 0-200 [facility] Comment on above: Performed By: #### L 501.0900, L502.0500 #### [facility] [address] [place], [address] Protein (U) [Mass/Vol] 26.3 mg/dL High <11.9 [facility] Comment on above: Performed By: #### L 501.0900, L502.0500 #### [facility] [address] [place], [address] UR CREAT 296.00 mg/dL Normal NO RANGE EST. [facility] Comment on above: Performed By: #### L 501.0900, L502.0500 #### [facility] [address] [place], [address] RBC Auto (Bld) [#/Vol]Ordere d By: Maurilio Castillo on 10-06-2024 RBC (Bld) [#/Vol] 4.29 10*6/uL 4.2-5.4 [facility] Random urine protein measure mentOrdered By: Maurilio Castillo on 10-06-2024 Protein (U) [Mass/Vol] 26.3 mg/dL High 0.0-11.8 [facility] Serum anion gap measurementO rdered By: Maurilio Castillo on 10-06-2024 Anion gap [Moles/Vol] 7 mmol/L 5-15 [facility] Serum globulin measurementOr dered By: Maurilio Castillo on 10-06-2024 Globulin (S) [Mass/Vol] 3.2 g/dL 2.2-4.2 [facility] Serum or plasma alanine quigley otransferase (ALT) measurementOrdered By: Maurilio Castillo on 10-06-2024 ALT [Catalytic activity/Vol] 18 U/L 13-56 [facility] Serum or plasma albumin chad urement (mass/volume)Ordered By: Maurilio Castillo on 10-06-2024 Albumin [Mass/Vol] 3.6 g/dL 3.2-5.0 [facility] Serum or plasma alkaline john sphatase measurementOrdered By: Maurilio Castillo on 10-06-2024 ALP [Catalytic activity/Vol] 87 U/L 45-117 [facility] Serum or plasma calcium chad urement (mass/volume)Ordered By: Maurilio Castillo on 10-06-2024 Calcium [Mass/Vol] 9.2 mg/dL 8.5-10.1 [facility] Serum or plasma cholesterol measurement (mass/volume)Ordered By: Maurilio Castillo on 10-06-2024 Cholesterol [Mass/Vol] 241 mg/dL High <200 [facility] Comment on above: <200 mg/dL Desirable 200-240 mg/dL Borderline >240 mg/dL High Risk Serum or plasma creatinine m easurement (mass/volume)Ordered By: Maurilio Castillo on 10-06-2024 Creatinine [Mass/Vol] 1.10 mg/dL High 0.55-1.02 [facility] Comment on above: The validity of the calculated GFR & GFRAA in patients over 70 years has not been determined. Clinical correlation is essential. Serum or plasma urea nitroge n measurement (mass/volume)Ordered By: Maurilio Castillo on 10-06-2024 Urea nitrogen [Mass/Vol] 23 mg/dL High 7-18 [facility] Sodium levelOrdered By: Maurilio Castillo on 10-06-2024 Sodium [Moles/Vol] 137 mmol/L 136-145 [facility] Total proteinOrdered By: Darrel Castillo on 10-06-2024 Protein [Mass/Vol] 6.8 g/dL 6.4-8.2 [facility] Triglycerides measurementOrd ered By: Maurilio Castillo on 10-06-2024 Triglyceride [Mass/Vol] 112 mg/dL <199 [facility] Comment on above: The drugs N-Acetylcy steine and Metamizole may falsely depress this assay.Serum Triglycerides Reference Interval Normal <150 mg/dL Borderline high 150 - 199 mg/dL High 200 - 499 mg/dL Very High > or = 500 mg/dL Urine creatinine measurement (mass/volume)Ordered By: Maurilio Castillo on 10-06-2024 Creatinine (U) [Mass/Vol] 296.00 mg/dL NO RANGE EST. [facility] Urine protein/creatinine mas s ratioOrdered By: Maurilio Castillo on 10-06-2024 Protein/Creatinine (U) [Mass ratio] 89 mg/g CRE 0-200 [facility] Very low density lipoprotein (VLDL) cholesterol measurementOrdered By: Maurilio Castillo on 10-06-2024 Very low density lipoprotein (VLDL) cholesterol measurement 22 mg/dL 5-40 [facility] Vitamin D,25 Hydroxyon 10-06 Vitamin D 25-OH 35.4 ng/mL Normal [facility] [facility] Comment on above: Order Comment: Order Date: 10/06/24 Order Info: [id number] - [id number] Result Comment: Oksana min D 25(OH) Status Range Deficiency <20 ng/mL (50nmol/L) Insufficiency 20 - 30 ng/mL (50 - 75 nmol/L) Sufficiency 30 - 100 ng/mL (75 - 250 nmol/L) Toxicity >100 ng/mL (>250 nmol/L) Performed By: #### L 506.1000, L509.1000, L500.4100, L100.0100, L500.4050 #### [facility] [address] [place], [address] White blood cell (WBC) count Ordered By: Maurilio Castillo on 10-06-2024 WBC (Bld) [#/Vol] 4.6 10*3/uL 4.4-11.0 [facility] Inital Evaluation (1) - PTon 09-14-2024 Inital Evaluation (1) - PT [facility] Physical Therapy [facility] [address] [place] [address]. [address] [place] [address] / REHABILITATION SERVICES INITIAL EVALUATION MR#: [id number] Acct: [id number] Name: MAYA CURRY Rep #: [id number] : 1950 74 From: Mari Orozco PT, Cert. MDT Referring Dr.: Dr. Irina Lake MD Status: RE G RCR Insurance: MEDICARE PART A B FOR LIFE Patient's Visit Information Visit Information Visit Information: MAYA CURRY is a 74 year old F referred to Physical Therapy by Dr. Irina Lake MD with a diagnosis of OVER ACTIVE BLADDER AND MIXED INCONTINENCE. Date of Evaluation: 09/14/24 Physical Therapist: Mari Orozco PT, Cert MDT Visit Plan Frequency: 1x/Week Duration: 2-4 Months Plan: PF THERAPY FOR STRENGTHENING, LENGTHENING/RELAXATION AND ENDURANCE TRAINING. URINARY URGE AND FREQUENCY EDUCATION. HEALTHY BACK AND BLADDER HABIT EDUCATION. TRAINING IN COORDINATION OF PELVIC FLOOR MUSCULATURE WITH HIP AND CORE (TRANSVERSE ABDOMINUS) MUSCULATURE. CORE STRENGTHENING. CHARLENE LE ROM, STRETCHING AND STRENGTHENING. TRAINING IN ABDOMINAL CAVITY PRESSURE MGMT WITH ADL'S. Subjective Subjective: Work/Leisure: RETIRED. 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 Present symptoms: OVER-ACTIVE BLADDER. SLIGHT SPOTTING URINE. Present since: YEARS BUT DIDN'T REALIZE IT WAS ABNORMAL UNTIL A FEW MONTHS AGO IN THE FALL OF 2023 Is it getting better, worse or staying the same: STAYING THE SAME Commenced as a result of: NO APPARENT REASON Worse: CERTAIN DRINKS AND FOODS Better: DIET CHANGES, GEMTESA BUT SIDE EFFECTS THEREFORE STOPPED AND IS NOW ON ANOTHER ONE BUT SIDE EFFECTS FROM THAT ONE TOO INCLUDING STOMACH ACHES AND DIZZINESS (STATES DR. LAKE IS AWARE). Previous history/Previous treatment: DENIES HX OF PELVIC FLOOR THERAPY. Treatment this episode: MEDICATIONS AND DIET CHANGES. Gait: USES CANE FOR BALANCE PROBLEMS FROM BACK PROBLEMS How long can you delay the need to urinate: 15 TO 30 MINUTES Prolapse (Falling out feeling): NO Frequency of Urination: CURRENTLY 9 TO 10 TIMES A DAY (18 TIMES A DAY PRIOR TO MEDICATION) DURING THE DAY AND 2-3 TIMES AT NIGHT. URINARY LEAKING: WEARING URINARY INCONTINENCE PANTIES OR 1-2 UI VERY THIN LINERS FOR SMALL AMOUNTS OF CHRONIC LEAKING DAILY FOR YEARS. Ability to stop urine flow: DOES NOT KNOW. Ability to initiate urine stream: YES - NEVER DIFFICULTY Dyspareunia: N/A Bowel Incontinence: NO Unexplained weight loss: NO PMH/Recent major surgery: Back pain Essential tremor Colitis Gastric reflux Depression Anxiety High cholesterol History of renal disease Mitral valve prolapse Hay fever Kidney disease Breast cancer Herniation of lumbar intervertebral disc Arthritis Nephrolithiasis Osteopenia Hypertension Heart disease GERD (gastroesophageal reflux disease) Anxiety History of esophagogastroduodenoscop y (EGD) History of discectomy History of laminectomy History of lithotripsy History of dilation and curettage History of lumpectomy of right breast History of hysterectomy History of appendectomy Objective Objective: Sitting/Standing Posture: DECREASED LORDOSIS IN STANDING. NO RELEVANT LATERAL SHIFT. Other Observations: INDEP GAIT INTO PT WITH ST CANE, DECREASED CADANCE, NO LOB. INDEP SIT TO STAND WITH UE ASSIST. Sensory deficit: CHARLENE LE LIGHT TOUCH SENSATION GROSSLY INTACT AND SYMMETRICAL ROM deficit: CHARLENE HIP TIGHTNESS INTO ROTATION. HS TIGHTNESS. ABD/ADD AND CHARLENE CALF TIGHTNESS. Motor deficit: CHARLENE HIPS GROSSLY 4-/5, KNEE'S 4-/5, ANKLES 4/5 Reflexes: UNABLE TO ELICIT CHARLENE LE DTR'S Dural Signs: NEGATIVE CHARLENE LE'S Lumbar mvmt loss: flex - MOD ext - ELIZABETH R SG - ELIZABETH L SG - ELIZABETH. C/O LBP LIMITING LUMBAR ROM. Core strength: POOR Palpation: LOW BACK AND R HIP TENDERNESS. OTHER: PATIENT DECLINED PELVIC EXAM FOR PELVIC FLOOR STRENGTH TESTING STATING IT WILL BE TOO PAINFUL. PATIENT COMMUNICATES THE ABILITY TO BE ABLE TO CONTRACT HER PELVIC FLOOR MUSCLES. FUNCTIONAL SCREEN: Incontinence Impact Questionnaire Score: 9 Urogenital Distress Inventory Score: 13 Goals Goal 1:: DECREASE NEED OF PAD USAGE TO ONE OR LESS PER DAY. Goal Time Frame: 8-12 Weeks Goal 2:: PATIENT WILL SUCCESSFULLY DELAY VOIDING LONG NEEDED WHEN URGENCY OCCURS TO SUCCESSFULLY MAKE IT TO THE BATHROOM AT LEAST 50% OF THE TIME. Goal Time Frame: 6-8 Weeks Goal 3:: PATIENT WILL DEMONSTRATE/COMMUNICATE 10 CONSISTENT AND CONSECUTIVE 10 SECOND PELVIC FLOOR MUSCLE CONTRACTIONS TO DEMONSTRATE IMPROVED PELVIC FLOOR ENDURANCE. Goal Time Frame: 8-12 Weeks Goal 4:: DEVELOP HEALTHY FLUID INTAKE HABITS WITH FLUID INTAKE OF ??? BODY WEIGHT IN OUNCES PER DAY AND 2/3 BEING WATER. Goal Time Frame: 4-6 Weeks Goal 5:: NORMALIZE VOIDING FREQUENCEY TO EVERY 2.5 TO 3 HRS. Goal Time Frame: 8-12 Weeks Goal 6:: PATIENT WILL BE INDEP WITH A HEP/HOME INSTRUCTIONS FOR CONTIN (more content not included)... Normal [facility] Colonoscopy Reporton 024 Colonoscopy Report [facility] Medical Records Department [address] [place] [address] Colonoscopy Report MR#: [id number] Acct: [id number] Name: MAYA CURRY Rep #: [id number] : 1950 74 From: Za Dhaliwal MD PCP: Dr. Maurilio Castillo MD Status:[facility] Patient Name: Maya Curry Procedure Date: 07/12/2024 9:06 AM Date of : 1950 Age: 74 Procedure: Colonoscopy Indications: Constipation Providers: Za Dhaliwal MD Referring MD: Maurilio Castillo Medicines: Monitored Anesthesia Care Patient Profile: This is a 74 year old female. Last Colonoscopy: 2016. Complications: No immediate complications. Procedure: Pre-Anesthesia Assessment: - Prior to the procedure, a History and Physical was performed, and patient medications and allergies were reviewed. The patient's tolerance of previous anesthesia was also reviewed. The risks and benefits of the procedure and the sedation options and risks were discussed with the patient. All questions were answered, and informed consent was obtained. Prior Anticoagulants: The patient has taken no anticoagulant or antiplatelet agents. ASA Grade Assessment: Per anesthesia. After reviewing the risks and benefits, the patient was deemed in satisfactory condition to undergo the procedure. After I obtained informed consent, the scope was passed under direct vision. Throughout the procedure, the patient's blood pressure, pulse, and oxygen saturations were monitored continuously. The colonoscope was introduced through the anus and advanced to the cecum, identified by the appendiceal orifice, ileocecal valve and palpation. The colonoscopy was performed without difficulty. The patient tolerated the procedure well. The quality of the bowel preparation was good. Scope In: 9:11:34 AM Scope Withdrawal Time 0 hours 15 minutes 49 seconds Scope Out: 9:33:56 AM Total Procedure Duration Time 0 hours 22 minutes 22 seconds Findings: The perianal and digital rectal examinations were normal. Two sessile polyps were found in the descending colon and ascending colon. The polyps were less than 5 mm in size. These polyps were removed with a cold biopsy forceps. Resection and retrieval were complete. The exam was otherwise without abnormality. Impression: - Two less than 5 mm polyps in the descending colon and in the ascending colon, removed with a cold biopsy forceps. Resected and retrieved. - The examination was otherwise normal. Recommendation: - Discharge patient to home. - Resume previous diet. - Continue present medications. - Await pathology results. - Repeat colonoscopy in 5 years for surveillance based on pathology results. - Repeat colonoscopy Depending on overall health at that time. Procedure Code(s): --- Professional --- 64306, PT, Colonoscopy, flexible; with biopsy, single or multiple Diagnosis Code(s): --- Professional --- D12.4, Benign neoplasm of descending colon D12.2, Benign neoplasm of ascending colon K59.00, Constipation, unspecified CPT copyright 2021 [employer]. All rights reserved. The codes documented in this report are preliminary and upon editor department review may be revised to meet current compliance requirements. MD Za Mahajan MD 07/12/2024 9:40:51 AM This report has been signed electronically. Number of Addenda: 0 Note Initiated On: 07/12/2024 9:06 AM 07/12/24939 Date Za Dhaliwal MD Cosigner Signature: Date (if indicated) CC: Dr. Maurilio Castillo MD; Dr. Za Dhaliwal MD Date Dictated: 07/12/24905 Date Transcribed: Air Brake Tester: MICHELLE Signed [facility] MR/POSTOP.Rossi 07-12-2024 MR/POSTOP.[facility] Medical Records Department [address] [place] [address] Anesthesia Postop Eval I 07/12/24944 MR#: [id number] Acct: [id number] Name: MAYA CURRY Rep #: [id number] : 1950 74 From: Cheng Beltre PCP: Dr. Maurilio Castillo MD Status:[facility] Y Race: C Location: [place] [address] Anesthesia: Postop Eval I Current Vital Signs Temperature: 98.2 F Pulse Rate: 79 Blood Pressure: 116/77 Respiratory Rate: 16 Pulse Ox: 96 Oxygen Delivery Method: Room Air Assessment Airway patent: Yes Spontaneous unlabored respirations: Yes Mental status: Asleep nausea: No Vomiting: No Anesthesia Complication: No Fluid Hydration Crystalloid volume administer (ml): 40 Total IV fluid infused: 40 Progress Note Anesthesia document: Postop Eval 1 completed: Yes 07/12/24945 Date Cheng Rodney Signature: Date CC: Signed Normal [facility] MR/[id number] 07-12-2024 [facility] Medical Records Department [address] [place] [address] Anesthesia Postop Eval II 07/12/24 1010 MR#: [id number] Acct: [id number] Name: MAYA CURRY Rep #: [id number] : 1950 74 From: Luis Germain MD PCP: Dr. Maurilio Castillo MD Status:[facility] Y Race: C Location: [place] [address] Anesthesia Postop Eval I Sum Postop Eval Completion status Anesthesia document: Postop Eval 1 completed: Yes Anesthesia Postop Eval I Summary Anesthesia Postop Eval I Summary: Anesthesia Postop Eval I: Assessment Summary Airway patent Yes 07/12/24 09:46 [email or web address] Spontaneous unlabored Yes 07/12/24 09:46 [email or web address] respirations Mental status Asleep 07/12/24 09:46 [email or web address] nausea No 07/12/24 09:46 [email or web address] Vomiting No 07/12/24 09:46 [email or web address] Anesthesia Postop Eval I: Fluid Summary Crystalloid volume administer 40 07/12/24 09:46 [email or web address] (ml) Colloids volume administered ( ml) Blood Product volume administered (ml) Total IV fluid infused 40 07/12/24 09:46 [email or web address] Anesthesia Postop Eval I: Summary Notes Anesthesia Complication No 07/12/24 09:46 [email or web address] Anesthesia Complication Comment: Post-operative progress note Anesthesia: Postop Eval II Evaluation Mental status: Awake Pain Level: 0 nausea: No Vomiting: No 07/12/24 1010 Date Luis Rodnye Signature: Date CC: Signed Normal [facility] Surgery Specimen Level Elodia 07-12-2024 Surgery Specimen Level IV Patient Age/Sex Location Account Attending Physician MAYA CURRY 74/F EN [id number] Dr. Za Dhaliwal MD Specimen: [id number] Received: 07/12/24 Status: MISSY Brady Num: [id number] Spec Type: COLON BX Subm Dr: Dr. Za Dhaliwal MD HEADER OPERATION: Colonoscopy biopsy PRE-OP DIAGNOSIS: Constipation TISSUE SUBMITTED: A- Ascending colon polyp biopsy, B- Descending colon polyp biopsy MICROSCOPIC DIAGNOSIS A. Ascending colon polyp, biopsy: Fragments of tubular adenoma. A few pigment laden macrophages, consistent with melanosis coli. B. Descending colon polyp, biopsy: A fragment of colonic mucosa with minimal changes suggestive of hyperplastic polyp. VERA. 07/13/2024 MICROSCOPIC DESCRIPTION Slides are reviewed. GROSS DESCRIPTION A. Received in fixative is one container labeled with the patient's name and designated Ascending colon polyp biopsy." The specimen consists of multiple irregular fragments of booker soft tissue that in aggregate measure 0.7 x 0.5 x 0.2 cm. The specimen is totally submitted in one cassette. B. Received in fixative is one container labeled with the patient's name and designated Descending colon polyp biopsy." The specimen consists of one irregular fragment of booker soft tissue that measures 0.3cm in greatest dimension. The specimen is totally submitted in one cassette. 07/12/2024 TC:1 CPT:11604w5 Patient Age/Sex Location Account Attending Physician MAYA CURRY 74/F EN [id number] Dr. Za Dhaliwal MD Signed (signature on file) Dr. Wesley Rodriguez MD 07/13/246 Normal [facility] Comment on above: Performed By: #### L 506.1000, L509.1000, L500.4100, L100.0100, L500.4050 #### [facility] [address] [place], [address] Absolute lymphocyte countOrd ered By: Maurilio Castillo on 08-27-2023 Lymphocytes Auto (Unsp spec) [#/Vol] 1.10 10*3/uL 0.83-4.51 [facility] Basophil percentageOrdered B y: Maurilio Castillo on 08-27-2023 Basophil percentage 0 SEEN /hpf 0-5 [facility] Basophil percentage 3.5 mg/dL 2.5-4.9 [facility] Basophils/100 WBC (Bld) 1.1 % 0-1 [facility] Bilirubin [Mass/Vol] 0.40 mg/dL 0.20-1.00 [facility] Comment on above: For patients on eltr ombopag therapy, use of Dimension [place] TBIL is not recommended. Chloride [Moles/Vol] 106 mmol/L 98-107 [facility] Cholesterol [Mass/Vol] 187 mg/dL <200 [facility] Comment on above: <200 mg/dL Desirable 200-240 mg/dL Borderline >240 mg/dL High Risk Eosinophils/100 WBC (Bld) 2.6 % 0-5 [facility] Glucose [Mass/Vol] 76 mg/dL 74-106 [facility] Neutrophils (Bld) [#/Vol] 2.9 10*3/uL 2.0-7.7 [facility] Neutrophils/100 WBC (Bld) 62.8 % 47-70 [facility] Potassium [Moles/Vol] 4.4 mmol/L 3.5-5.1 [facility] Protein [Mass/Vol] 6.9 g/dL 6.4-8.2 [facility] Sodium [Moles/Vol] 140 mmol/L 136-145 [facility] Triglyceride [Mass/Vol] 53 mg/dL <199 [facility] Comment on above: The drugs N-Acetylcy steine and Metamizole may falsely depress this assay.Serum Triglycerides Reference Interval Normal <150 mg/dL Borderline high 150 - 199 mg/dL High 200 - 499 mg/dL Very High > or = 500 mg/dL WBC (Bld) [#/Vol] 4.7 10*3/uL 4.4-11.0 [facility] Bilirubin Test strip Ql (U)O rdered By: Maurilio Castillo on 08-27-2023 Bilirubin Ql (U) Negative Negative [facility] Blood erythrocytes count (nu mber/volume)Ordered By: Maurilio Castillo on 08-27-2023 RBC (Bld) [#/Vol] 4.35 10*6/uL 4.2-5.4 [facility] Blood hemoglobin measurement (mass/volume)Ordered By: Maurilio Castillo on 08-27-2023 Hemoglobin (Bld) [Mass/Vol] 12.3 g/dL 12.0-15.0 [facility] Blood lymphocytes/100 leukoc ytesOrdered By: Maurilio Castillo on 08-27-2023 Lymphocytes/100 WBC (Bld) 23.6 % 19-41 [facility] Blood monocytes/100 leukocyt esOrdered By: Maurilio Castillo on 08-27-2023 Monocytes/100 WBC (Bld) 9.7 % 0-10 [facility] Blood platelet mean volumeOr dered By: Maurilio Castillo on 08-27-2023 Platelet mean volume (Bld) [Entitic vol] 10.8 fL 6.2-12.0 [facility] Determination of erythrocyte mean corpuscular volume (MCV)Ordered By: Maurilio Castillo on 08-27-2023 MCV (RBC) [Entitic vol] 92.2 fL 81-99 [facility] Hematocrit Auto (Bld) [Volum e fraction]Ordered By: Maurilio Castillo on 08-27-2023 Hematocrit (Bld) [Volume fraction] 40.1 % 37-47 [facility] Ketones Test strip Ql (U)Ord ered By: Maurilio Castillo on 08-27-2023 Ketones Ql (U) 5 mg/dl Negative [facility] - Chemistry and C hemistry - challengeOrdered By: Maurilio Castillo on 08-27-2023 ALP [Catalytic activity/Vol] 96 U/L 45-117 [facility] ALT [Catalytic activity/Vol] 23 U/L 13-56 [facility] CO2 [Moles/Vol] 30.0 mmol/L 21.0-32.0 [facility] Globulin (S) [Mass/Vol] 3.3 g/dL 2.2-4.2 [facility] Urea nitrogen/Creatinine [Mass ratio] 26.8 mg/mg 10-20 [facility] - Hematology and Cell countsOrdered By: Maurilio Castillo on 08-27-2023 Erythrocyte distribution width (RBC) [Entitic vol] 49.4 fL 35.1-43.9 [facility] Erythrocyte distribution width (RBC) [Ratio] 14.6 % 11.6-14.6 [facility] Immature granulocytes/100 WBC (Bld) 0.200 % 0.0-0.9 [facility] Comment on above: IG% - Immature Granu locytes (promyelocytes, myelocytes and metamyelocytes) > 1% indicates that a LEFT SHIFT is Present. MCH (RBC) [Entitic mass] 28.3 pg 27.0-32.0 [facility] Nucleated RBC/100 WBC (Bld) [Ratio] 0 % 0-5 [facility] MCHC Auto (RBC) [Mass/Vol]Or dered By: Maurilio Castillo on 08-27-2023 MCHC (RBC) [Mass/Vol] 30.7 g/dL 32-36 [facility] Mucus LM Ql (Urine sed)Order ed By: Maurilio Castillo on 08-27-2023 Mucus Ql (Urine sed) 0 SEEN /hpf [facility] Nitrite Test strip Ql (U)Ord ered By: Maurilio Castillo on 08-27-2023 Nitrite Ql (U) Negative Negative [facility] No Panel InformationOrdered By: Maurilio Castillo on 08-27-2023 Estimated GFR (MDRD) Amer 72 mL/min >60 [facility] Comment on above: GFR Calc Estimated GFR (MDRD) Non-Af Amer 60 mL/min >60 [facility] Comment on above: Non- GFR Calc Parathyroid Hormone (Intact) 75.3 pg/mL 18.4-80.1 [facility] Vitamin D 25-Hydroxy 49.4 ng/mL [facility] Comment on above: Vitamin D 25(OH) Sta tus Range Deficiency <20 ng/mL (50nmol/L) Insufficiency 20 - 30 ng/mL (50 - 75 nmol/L) Sufficiency 30 - 100 ng/mL (75 - 250 nmol/L) Toxicity >100 ng/mL (>250 nmol/L) Platelets bldOrdered By: Darrel Castillo on 08-27-2023 Platelets (Bld) [#/Vol] 305 10*3/uL 150-450 [facility] Protein Test strip Ql (U)Ord ered By: Maurilio Castillo on 08-27-2023 Protein Ql (U) 15 mg/dl Negative [facility] Serum or plasma albumin chad urement (mass/volume)Ordered By: Maurilio Castillo on 08-27-2023 Albumin [Mass/Vol] 3.6 g/dL 3.2-5.0 [facility] Serum or plasma albumin/glob ulin mass ratioOrdered By: Maurilio Castillo on 08-27-2023 Albumin/Globulin [Mass ratio] 1.1 {ratio} 0.9-2.4 [facility] Serum or plasma calcium chad urement (mass/volume)Ordered By: Maurilio Castillo on 08-27-2023 Calcium [Mass/Vol] 9.6 mg/dL 8.5-10.1 [facility] Serum or plasma cholesterol in HDL measurement (mass/volume)Ordered By: Maurilio Castillo on 08-27-2023 Cholesterol in HDL [Mass/Vol] 110 mg/dL >40 [facility] Comment on above: The drugs N-Acetylcy steine and Metamizole may falsely depress this assay. Reference Range HDL <40 mg/dL Low HDL Cholesterol HDL >or= 60 mg/dL High HDL Cholesterol Serum or plasma cholesterol in VLDL measurement (mass/volume)Ordered By: Maurilio Castillo on 08-27-2023 Cholesterol in VLDL [Mass/Vol] 11 mg/dL 5-40 [facility] Serum or plasma creatinine m easurement (mass/volume)Ordered By: Maurilio Castillo on 08-27-2023 Creatinine [Mass/Vol] 0.97 mg/dL 0.55-1.02 [facility] Comment on above: The validity of the calculated GFR & GFRAA in patients over 70 years has not been determined. Clinical correlation is essential. Serum or plasma low density lipoprotein (LDL) cholesterol measurement (mass/volume)Ordered By: Maurilio Castillo on 08-27-2023 Cholesterol in LDL [Mass/Vol] 66 mg/dL 0-130 [facility] Serum or plasma urea nitroge n measurement (mass/volume)Ordered By: Maurilio Castillo on 08-27-2023 Urea nitrogen [Mass/Vol] 26 mg/dL 7-18 [facility] Squamous epithelial cells de tection in urine sediment by light microscopyOrdered By: Maurilio Castillo on 08-27-2023 Epithelial cells.squamous LM Ql (Urine sed) 0 SEEN /hpf 5-10 [facility] Thin prep Papanicolaou smear with manual screeningOrdered By: Maurilio Castillo on 08-27-2023 Thin prep Papanicolaou smear with manual screening 19 U/L 15-37 [facility] Thin prep Papanicolaou smear with manual screening 4 5-15 [facility] Urine blood detectionOrdered By: Maurilio Castillo on 08-27-2023 RBC Ql (U) Negative Negative [facility] RBC Ql (U) 0 SEEN /hpf 0-5 [facility] Urine clarityOrdered By: Darrel Castillo on 08-27-2023 Clarity (U) Clear Clear [facility] Urine color determinationOrd ered By: Maurilio Castillo on 08-27-2023 Color (U) Yellow Yellow [facility] Urine creatinine measurement (mass/volume)Ordered By: Maurilio Castillo on 08-27-2023 Creatinine (U) [Mass/Vol] 149.00 mg/dL NO RANGE EST. [facility] Urine glucose detectionOrder ed By: Maurilio Castillo on 08-27-2023 Glucose Ql (U) Normal mg/dl Normal [facility] Urine leukocyte esterase det ection by dipstickOrdered By: Maurilio Castillo on 08-27-2023 Leukocyte esterase Test strip Ql (U) 25 /ul Negative [facility] Urine pHOrdered By: Maurilio mirza on 08-27-2023 pH (U) 7.0 [pH] 5.0 - 8.0 [facility] Urine protein measurement (m ass/volume)Ordered By: Maurilio Castillo on 08-27-2023 Protein (U) [Mass/Vol] 22.1 mg/dL 0.0-11.8 [facility] Urine protein/creatinine mas s ratioOrdered By: Maurilio Castillo on 08-27-2023 Protein/Creatinine (U) [Mass ratio] 148 mg/g CRE 0-200 [facility] Urine sediment bacteria coun t by microscopy (number/high power field)Ordered By: Maurilio Castillo on 08-27-2023 Bacteria LM.HPF (Urine sed) [#/Area] 0 /[HPF] None Seen [facility] Urine specific gravity measu rementOrdered By: Maurilio Castillo on 08-27-2023 Specific gravity (U) [Rel density] 1.010 1.002-1.03 0 [facility] Urobilinogen Auto test strip Ql (U)Ordered By: Maurilio Castillo on 08-27-2023 Urobilinogen Ql (U) Normal mg/dl Normal [facility] Absolute lymphocyte countOrd ered By: Maurilio Castillo on 02-17-2023 Lymphocytes Auto (Unsp spec) [#/Vol] 1.12 10*3/uL 0.83-4.51 [facility] Basophil percentageOrdered B y: Maurilio Castillo on 02-17-2023 Basophil percentage 0-5 SEEN /hpf 0-5 [facility] Basophil percentage 3.4 mg/dL 2.5-4.9 [facility] Basophils/100 WBC (Bld) 0.9 % 0-1 [facility] Bilirubin [Mass/Vol] 0.50 mg/dL 0.20-1.00 [facility] Comment on above: For patients on eltr ombopag therapy, use of Dimension [place] TBIL is not recommended. Chloride [Moles/Vol] 103 mmol/L 98-107 [facility] Cholesterol [Mass/Vol] 183 mg/dL <200 [facility] Comment on above: <200 mg/dL Desirable 200-240 mg/dL Borderline >240 mg/dL High Risk Eosinophils/100 WBC (Bld) 4.2 % 0-5 [facility] Glucose [Mass/Vol] 86 mg/dL 74-106 [facility] Neutrophils (Bld) [#/Vol] 1.6 10*3/uL 2.0-7.7 [facility] Neutrophils/100 WBC (Bld) 46.7 % 47-70 [facility] Potassium [Moles/Vol] 3.7 mmol/L 3.5-5.1 [facility] Protein [Mass/Vol] 6.7 g/dL 6.4-8.2 [facility] Sodium [Moles/Vol] 136 mmol/L 136-145 [facility] Triglyceride [Mass/Vol] 64 mg/dL <199 [facility] Comment on above: The drugs N-Acetylcy steine and Metamizole may falsely depress this assay.Serum Triglycerides Reference Interval Normal <150 mg/dL Borderline high 150 - 199 mg/dL High 200 - 499 mg/dL Very High > or = 500 mg/dL WBC (Bld) [#/Vol] 3.3 10*3/uL 4.4-11.0 [facility] Bilirubin Test strip Ql (U)O rdered By: Maurilio Castillo on 02-17-2023 Bilirubin Ql (U) Negative Negative [facility] Blood erythrocytes count (nu mber/volume)Ordered By: Maurilio Castillo on 02-17-2023 RBC (Bld) [#/Vol] 4.28 10*6/uL 4.2-5.4 [facility] Blood hemoglobin measurement (mass/volume)Ordered By: Maurilio Castillo on 02-17-2023 Hemoglobin (Bld) [Mass/Vol] 12.5 g/dL 12.0-15.0 [facility] Blood lymphocytes/100 leukoc ytesOrdered By: Maurilio Castillo on 02-17-2023 Lymphocytes/100 WBC (Bld) 33.7 % 19-41 [facility] Blood monocytes/100 leukocyt esOrdered By: Maurilio Castillo on 02-17-2023 Monocytes/100 WBC (Bld) 14.2 % 0-10 [facility] Blood platelet mean volumeOr dered By: Maurilio Castillo on 02-17-2023 Platelet mean volume (Bld) [Entitic vol] 11.0 fL 6.2-12.0 [facility] Determination of erythrocyte mean corpuscular volume (MCV)Ordered By: Maurilio Castillo on 02-17-2023 MCV (RBC) [Entitic vol] 93.9 fL 81-99 [facility] Hematocrit Auto (Bld) [Volum e fraction]Ordered By: Maurilio Castillo on 02-17-2023 Hematocrit (Bld) [Volume fraction] 40.2 % 37-47 [facility] Hyaline casts LM.LPF (Urine sed) [#/Area]Ordered By: Maurilio Castillo on 02-17-2023 Hyaline casts (Urine sed) [#/Area] 0 /[LPF] 0-5 [facility] Ketones Test strip Ql (U)Ord ered By: Maurilio Castillo on 02-17-2023 Ketones Ql (U) Negative Negative [facility] Laboratory - Chemistry and C hemistry - challengeOrdered By: Maurilio Castillo on 02-17-2023 ALP [Catalytic activity/Vol] 97 U/L 45-117 [facility] ALT [Catalytic activity/Vol] 28 U/L 13-56 [facility] CO2 [Moles/Vol] 27.0 mmol/L 21.0-32.0 [facility] Globulin (S) [Mass/Vol] 3.3 g/dL 2.2-4.2 [facility] Urea nitrogen/Creatinine [Mass ratio] 26.3 mg/mg 10-20 [facility] Laboratory - Hematology and Cell countsOrdered By: Maurilio Castillo on 02-17-2023 Erythrocyte distribution width (RBC) [Entitic vol] 47.7 fL 35.1-43.9 [facility] Erythrocyte distribution width (RBC) [Ratio] 13.9 % 11.6-14.6 [facility] Immature granulocytes/100 WBC (Bld) 0.300 % 0.0-0.9 [facility] Comment on above: IG% - Immature Granu locytes (promyelocytes, myelocytes and metamyelocytes) > 1% indicates that a LEFT SHIFT is Present. MCH (RBC) [Entitic mass] 29.2 pg 27.0-32.0 [facility] Nucleated RBC/100 WBC (Bld) [Ratio] 0 % 0-5 [facility] MCHC Auto (RBC) [Mass/Vol]Or dered By: Maurilio Castillo on 02-17-2023 MCHC (RBC) [Mass/Vol] 31.1 g/dL 32-36 [facility] Mucus LM Ql (Urine sed)Order ed By: Maurilio Castillo on 02-17-2023 Mucus Ql (Urine sed) 0 SEEN /hpf [facility] Nitrite Test strip Ql (U)Ord ered By: Maurilio Castillo on 02-17-2023 Nitrite Ql (U) Negative Negative [facility] No Panel InformationOrdered By: Maurilio Castillo on 02-17-2023 Estimated GFR (MDRD) Amer 78 mL/min >60 [facility] Comment on above: GFR Calc Estimated GFR (MDRD) Non-Af Amer 64 mL/min >60 [facility] Comment on above: Non- GFR Calc Parathyroid Hormone (Intact) 84.1 pg/mL 18.4-80.1 [facility] Vitamin D 25-Hydroxy 51.1 ng/mL [facility] Comment on above: Vitamin D 25(OH) Sta tus Range Deficiency <20 ng/mL (50nmol/L) Insufficiency 20 - 30 ng/mL (50 - 75 nmol/L) Sufficiency 30 - 100 ng/mL (75 - 250 nmol/L) Toxicity >100 ng/mL (>250 nmol/L) Platelets bldOrdered By: Darrel Castillo on 02-17-2023 Platelets (Bld) [#/Vol] 260 10*3/uL 150-450 [facility] Protein Test strip Ql (U)Ord ered By: Maurilio Castillo on 02-17-2023 Protein Ql (U) 30 mg/dl Negative [facility] Serum or plasma albumin chad urement (mass/volume)Ordered By: Maurilio Castillo on 02-17-2023 Albumin [Mass/Vol] 3.4 g/dL 3.2-5.0 [facility] Serum or plasma albumin/glob ulin mass ratioOrdered By: Maurilio Castillo on 02-17-2023 Albumin/Globulin [Mass ratio] 1.0 {ratio} 0.9-2.4 [facility] Serum or plasma calcium chad urement (mass/volume)Ordered By: Maurilio Castillo on 02-17-2023 Calcium [Mass/Vol] 8.9 mg/dL 8.5-10.1 [facility] Serum or plasma cholesterol in HDL measurement (mass/volume)Ordered By: Maurilio Castillo on 02-17-2023 Cholesterol in HDL [Mass/Vol] 92 mg/dL >40 [facility] Comment on above: The drugs N-Acetylcy steine and Metamizole may falsely depress this assay. Reference Range HDL <40 mg/dL Low HDL Cholesterol HDL >or= 60 mg/dL High HDL Cholesterol Serum or plasma cholesterol in VLDL measurement (mass/volume)Ordered By: Maurilio Castillo on 06-26-2023 Cholesterol in VLDL [Mass/Vol] 13 mg/dL 5-40 [facility] Serum or plasma creatinine m easurement (mass/volume)Ordered By: Maurilio Castillo on 02-17-2023 Creatinine [Mass/Vol] 0.91 mg/dL 0.55-1.02 [facility] Comment on above: The validity of the calculated GFR & GFRAA in patients over 70 years has not been determined. Clinical correlation is essential. Serum or plasma low density lipoprotein (LDL) cholesterol measurement (mass/volume)Ordered By: Maurilio Castillo on 02-17-2023 Cholesterol in LDL [Mass/Vol] 78 mg/dL 0-130 [facility] Serum or plasma urea nitroge n measurement (mass/volume)Ordered By: Maurilio Castillo on 02-17-2023 Urea nitrogen [Mass/Vol] 24 mg/dL 7-18 [facility] Squamous epithelial cells de tection in urine sediment by light microscopyOrdered By: Maurilio Castillo on 02-17-2023 Epithelial cells.squamous LM Ql (Urine sed) 0-5 SEEN /hpf 5-10 [facility] Thin prep Papanicolaou smear with manual screeningOrdered By: Maurilio Castillo on 02-17-2023 Thin prep Papanicolaou smear with manual screening 19 U/L 15-37 [facility] Thin prep Papanicolaou smear with manual screening 6 5-15 [facility] Urine blood detectionOrdered By: Maurilio Castillo on 02-17-2023 RBC Ql (U) Negative Negative [facility] RBC Ql (U) 0 SEEN /hpf 0-5 [facility] Urine clarityOrdered By: Darrel Castillo on 02-17-2023 Clarity (U) Clear Clear [facility] Urine color determinationOrd ered By: Maurilio Castillo on 02-17-2023 Color (U) Yellow Yellow [facility] Urine creatinine measurement (mass/volume)Ordered By: Maurilio Castillo on 02-17-2023 Creatinine (U) [Mass/Vol] 195.00 mg/dL NO RANGE EST. [facility] Urine glucose detectionOrder ed By: Maurilio Castillo on 02-17-2023 Glucose Ql (U) Normal mg/dl Normal [facility] Urine leukocyte esterase det ection by dipstickOrdered By: Maurilio Castillo on 02-17-2023 Leukocyte esterase Test strip Ql (U) 25 /ul Negative [facility] Urine pHOrdered By: Maurilio mirza on 02-17-2023 pH (U) 6.5 [pH] 5.0 - 8.0 [facility] Urine protein measurement (m ass/volume)Ordered By: Maurilio Castillo on 02-17-2023 Protein (U) [Mass/Vol] 19.1 mg/dL 0.0-11.8 [facility] Urine protein/creatinine mas s ratioOrdered By: Maurilio Castillo on 02-17-2023 Protein/Creatinine (U) [Mass ratio] 98 mg/g CRE 0-200 [facility] Urine sediment bacteria coun t by microscopy (number/high power field)Ordered By: Maurilio Castillo on 02-17-2023 Bacteria LM.HPF (Urine sed) [#/Area] 0 /[HPF] None Seen [facility] Urine specific gravity measu rementOrdered By: Maurilio Castillo on 02-17-2023 Specific gravity (U) [Rel density] 1.010 1.002-1.03 0 [facility] Urobilinogen Auto test strip Ql (U)Ordered By: Maurilio Castillo on 02-17-2023 Urobilinogen Ql (U) Normal mg/dl Normal [facility] Absolute lymphocyte countOrd ered By: Dr. Peralta on 12-17-2022 Lymphocytes Auto (Unsp spec) [#/Vol] 1.47 10*3/uL 0.83-4.51 [facility] Basophil percentageOrdered B y: Dr. Peralta on 12-17-2022 Basophils/100 WBC (Bld) 0.9 % 0-1 [facility] Bilirubin [Mass/Vol] 0.30 mg/dL 0.20-1.00 [facility] Comment on above: For patients on eltr ombopag therapy, use of Dimension [place] TBIL is not recommended. Chloride [Moles/Vol] 103 mmol/L 98-107 [facility] Eosinophils/100 WBC (Bld) 1.9 % 0-5 [facility] Glucose [Mass/Vol] 83 mg/dL 74-106 [facility] LDH [Catalytic activity/Vol] 216 U/L 84-246 [facility] Neutrophils (Bld) [#/Vol] 2.9 10*3/uL 2.0-7.7 [facility] Neutrophils/100 WBC (Bld) 55.2 % 47-70 [facility] Potassium [Moles/Vol] 3.9 mmol/L 3.5-5.1 [facility] Protein [Mass/Vol] 7.4 g/dL 6.4-8.2 [facility] Sodium [Moles/Vol] 135 mmol/L 136-145 [facility] WBC (Bld) [#/Vol] 5.3 10*3/uL 4.4-11.0 [facility] Blood erythrocytes count (nu mber/volume)Ordered By: Dr. Peralta on 12-17-2022 RBC (Bld) [#/Vol] 4.31 10*6/uL 4.2-5.4 [facility] Blood hemoglobin measurement (mass/volume)Ordered By: Dr. Peralta on 12-17-2022 Hemoglobin (Bld) [Mass/Vol] 13.1 g/dL 12.0-15.0 [facility] Blood lymphocytes/100 leukoc ytesOrdered By: Dr. Peralta on 12-17-2022 Lymphocytes/100 WBC (Bld) 27.8 % 19-41 [facility] Blood monocytes/100 leukocyt esOrdered By: Dr. Peralta on 12-17-2022 Monocytes/100 WBC (Bld) 13.8 % 0-10 [facility] Blood platelet mean volumeOr dered By: Dr. Peralta on 12-17-2022 Platelet mean volume (Bld) [Entitic vol] 10.6 fL 6.2-12.0 [facility] Determination of erythrocyte mean corpuscular volume (MCV)Ordered By: Dr. Peralta on 12-17-2022 MCV (RBC) [Entitic vol] 97.2 fL 81-99 [facility] Hematocrit Auto (Bld) [Volum e fraction]Ordered By: Dr. Peralta on 12-17-2022 Hematocrit (Bld) [Volume fraction] 41.9 % 37-47 [facility] Laboratory - Chemistry and C hemistry - challengeOrdered By: Dr. Peralta on 12-17-2022 ALP [Catalytic activity/Vol] 102 U/L 45-117 [facility] ALT [Catalytic activity/Vol] 27 U/L 13-56 [facility] CO2 [Moles/Vol] 30.0 mmol/L 21.0-32.0 [facility] Globulin (S) [Mass/Vol] 3.7 g/dL 2.2-4.2 [facility] Urea nitrogen/Creatinine [Mass ratio] 21.6 mg/mg 10-20 [facility] Laboratory - Hematology and Cell countsOrdered By: Dr. Peralta on 12-17-2022 Erythrocyte distribution width (RBC) [Entitic vol] 49.7 fL 35.1-43.9 [facility] Erythrocyte distribution width (RBC) [Ratio] 13.9 % 11.6-14.6 [facility] Immature granulocytes/100 WBC (Bld) 0.400 % 0.0-0.9 [facility] Comment on above: IG% - Immature Granu locytes (promyelocytes, myelocytes and metamyelocytes) > 1% indicates that a LEFT SHIFT is Present. MCH (RBC) [Entitic mass] 30.4 pg 27.0-32.0 [facility] Nucleated RBC/100 WBC (Bld) [Ratio] 0 % 0-5 [facility] MCHC Auto (RBC) [Mass/Vol]Or dered By: Dr. Peralta on 12-17-2022 MCHC (RBC) [Mass/Vol] 31.3 g/dL 32-36 [facility] No Panel InformationOrdered By: Dr. Peralta on 12-17-2022 Estimated Creatinine Clearance Calc 49.08 ml/min [facility] Estimated GFR (MDRD) Amer 72 mL/min >60 [facility] Comment on above: GFR Calc Estimated GFR (MDRD) Non-Af Amer 60 mL/min >60 [facility] Comment on above: Non- GFR Calc Platelets bldOrdered By: Dr. Peralta on 12-17-2022 Platelets (Bld) [#/Vol] 265 10*3/uL 150-450 [facility] Serum or plasma albumin chad urement (mass/volume)Ordered By: Dr. Peralta on 12-17-2022 Albumin [Mass/Vol] 3.7 g/dL 3.2-5.0 [facility] Serum or plasma albumin/glob ulin mass ratioOrdered By: Dr. Peralta on 12-17-2022 Albumin/Globulin [Mass ratio] 1.0 {ratio} 0.9-2.4 [facility] Serum or plasma calcium chad urement (mass/volume)Ordered By: Dr. Peralta on 12-17-2022 Calcium [Mass/Vol] 9.3 mg/dL 8.5-10.1 [facility] Serum or plasma creatinine m easurement (mass/volume)Ordered By: Dr. Peralta on 12-17-2022 Creatinine [Mass/Vol] 0.97 mg/dL 0.55-1.02 [facility] Comment on above: The validity of the calculated GFR & GFRAA in patients over 70 years has not been determined. Clinical correlation is essential. Serum or plasma urea nitroge n measurement (mass/volume)Ordered By: Dr. Peralta on 12-17-2022 Urea nitrogen [Mass/Vol] 21 mg/dL 7-18 [facility] Thin prep Papanicolaou smear with manual screeningOrdered By: Dr. Peralta on 12-17-2022 Thin prep Papanicolaou smear with manual screening 18 U/L 15-37 [facility] Thin prep Papanicolaou smear with manual screening 2 5-15 [facility] Absolute lymphocyte countOrd ered By: Dr. Castillo on 10-23-2022 Lymphocytes Auto (Unsp spec) [#/Vol] 1.29 10*3/uL 0.83-4.51 [facility] Basophil percentageOrdered B y: Dr. Castillo on 10-23-2022 Basophil percentage 0-5 SEEN /hpf 0-5 [facility] Basophil percentage 3.2 mg/dL 2.5-4.9 [facility] Basophils/100 WBC (Bld) 0.6 % 0-1 [facility] Bilirubin [Mass/Vol] 0.40 mg/dL 0.20-1.00 [facility] Comment on above: For patients on eltr ombopag therapy, use of Dimension [place] TBIL is not recommended. Chloride [Moles/Vol] 102 mmol/L 98-107 [facility] Cholesterol [Mass/Vol] 189 mg/dL <200 [facility] Comment on above: <200 mg/dL Desirable 200-240 mg/dL Borderline >240 mg/dL High Risk Eosinophils/100 WBC (Bld) 2.0 % 0-5 [facility] Glucose [Mass/Vol] 82 mg/dL 74-106 [facility] Neutrophils (Bld) [#/Vol] 3.5 10*3/uL 2.0-7.7 [facility] Neutrophils/100 WBC (Bld) 64.4 % 47-70 [facility] Potassium [Moles/Vol] 4.2 mmol/L 3.5-5.1 [facility] Protein [Mass/Vol] 7.1 g/dL 6.4-8.2 [facility] Sodium [Moles/Vol] 138 mmol/L 136-145 [facility] Triglyceride [Mass/Vol] 69 mg/dL <199 [facility] Comment on above: The drugs N-Acetylcy steine and Metamizole may falsely depress this assay.Serum Triglycerides Reference Interval Normal <150 mg/dL Borderline high 150 - 199 mg/dL High 200 - 499 mg/dL Very High > or = 500 mg/dL WBC (Bld) [#/Vol] 5.4 10*3/uL 4.4-11.0 [facility] Bilirubin Test strip Ql (U)O rdered By: Dr. Castillo on 10-23-2022 Bilirubin Ql (U) 1 mg/dL Negative [facility] Comment on above: COLOR OF URINE MAY A FFECT DIPSTICK RESULTS. Blood erythrocytes count (nu mber/volume)Ordered By: Dr. Castillo on 10-23-2022 RBC (Bld) [#/Vol] 4.36 10*6/uL 4.2-5.4 [facility] Blood hemoglobin measurement (mass/volume)Ordered By: Dr. Castillo on 10-23-2022 Hemoglobin (Bld) [Mass/Vol] 13.3 g/dL 12.0-15.0 [facility] Blood lymphocytes/100 leukoc ytesOrdered By: Dr. Castillo on 10-23-2022 Lymphocytes/100 WBC (Bld) 23.9 % 19-41 [facility] Blood monocytes/100 leukocyt esOrdered By: Dr. Castillo on 10-23-2022 Monocytes/100 WBC (Bld) 8.7 % 0-10 [facility] Blood platelet mean volumeOr dered By: Dr. Castillo on 10-23-2022 Platelet mean volume (Bld) [Entitic vol] 11.1 fL 6.2-12.0 [facility] Determination of erythrocyte mean corpuscular volume (MCV)Ordered By: Dr. Castillo on 10-23-2022 MCV (RBC) [Entitic vol] 94.5 fL 81-99 [facility] Hematocrit Auto (Bld) [Volum e fraction]Ordered By: Dr. Castillo on 10-23-2022 Hematocrit (Bld) [Volume fraction] 41.2 % 37-47 [facility] Ketones Test strip Ql (U)Ord ered By: Dr. Castillo on 10-23-2022 Ketones Ql (U) 5 mg/dl Negative [facility] Laboratory - Chemistry and C hemistry - challengeOrdered By: Dr. Castillo on 10-23-2022 ALP [Catalytic activity/Vol] 88 U/L 45-117 [facility] ALT [Catalytic activity/Vol] 24 U/L 13-56 [facility] CO2 [Moles/Vol] 27.0 mmol/L 21.0-32.0 [facility] Globulin (S) [Mass/Vol] 3.2 g/dL 2.2-4.2 [facility] Urea nitrogen/Creatinine [Mass ratio] 21.9 mg/mg 10-20 [facility] Laboratory - Hematology and Cell countsOrdered By: Dr. Castillo on 10-23-2022 Erythrocyte distribution width (RBC) [Entitic vol] 48.4 fL 35.1-43.9 [facility] Erythrocyte distribution width (RBC) [Ratio] 13.8 % 11.6-14.6 [facility] Immature granulocytes/100 WBC (Bld) 0.400 % 0.0-0.9 [facility] Comment on above: IG% - Immature Granu locytes (promyelocytes, myelocytes and metamyelocytes) > 1% indicates that a LEFT SHIFT is Present. MCH (RBC) [Entitic mass] 30.5 pg 27.0-32.0 [facility] Nucleated RBC/100 WBC (Bld) [Ratio] 0 % 0-5 [facility] MCHC Auto (RBC) [Mass/Vol]Or dered By: Dr. Castillo on 10-23-2022 MCHC (RBC) [Mass/Vol] 32.3 g/dL 32-36 [facility] Mucus LM Ql (Urine sed)Order ed By: Dr. Castillo on 10-23-2022 Mucus Ql (Urine sed) 0 SEEN /hpf [facility] Nitrite Test strip Ql (U)Ord ered By: Dr. Castillo on 10-23-2022 Nitrite Ql (U) Negative Negative [facility] No Panel InformationOrdered By: Dr. Castillo on 10-23-2022 Estimated GFR (MDRD) Amer 74 mL/min >60 [facility] Comment on above: GFR Calc Estimated GFR (MDRD) Non-Af Amer 61 mL/min >60 [facility] Comment on above: Non- GFR Calc Parathyroid Hormone (Intact) 90.5 pg/mL 18.4-80.1 [facility] Vitamin D 25-Hydroxy 34.7 ng/mL [facility] Comment on above: Vitamin D 25(OH) Sta tus Range Deficiency <20 ng/mL (50nmol/L) Insufficiency 20 - 30 ng/mL (50 - 75 nmol/L) Sufficiency 30 - 100 ng/mL (75 - 250 nmol/L) Toxicity >100 ng/mL (>250 nmol/L) Platelets bldOrdered By: Dr. Castillo on 10-23-2022 Platelets (Bld) [#/Vol] 309 10*3/uL 150-450 [facility] Protein Test strip Ql (U)Ord ered By: Dr. Castillo on 10-23-2022 Protein Ql (U) 30 mg/dl Negative [facility] Serum or plasma albumin chad urement (mass/volume)Ordered By: Dr. Castillo on 10-23-2022 Albumin [Mass/Vol] 3.9 g/dL 3.2-5.0 [facility] Serum or plasma albumin/glob ulin mass ratioOrdered By: Dr. Castillo on 10-23-2022 Albumin/Globulin [Mass ratio] 1.2 {ratio} 0.9-2.4 [facility] Serum or plasma calcium chad urement (mass/volume)Ordered By: Dr. Castillo on 10-23-2022 Calcium [Mass/Vol] 9.5 mg/dL 8.5-10.1 [facility] Serum or plasma cholesterol in HDL measurement (mass/volume)Ordered By: Dr. Castillo on 10-23-2022 Cholesterol in HDL [Mass/Vol] 110 mg/dL >40 [facility] Comment on above: The drugs N-Acetylcy steine and Metamizole may falsely depress this assay. Reference Range HDL <40 mg/dL Low HDL Cholesterol HDL >or= 60 mg/dL High HDL Cholesterol Serum or plasma cholesterol in VLDL measurement (mass/volume)Ordered By: Dr. Castillo on 10-23-2022 Cholesterol in VLDL [Mass/Vol] 14 mg/dL 5-40 [facility] Serum or plasma creatinine m easurement (mass/volume)Ordered By: Dr. Castillo on 10-23-2022 Creatinine [Mass/Vol] 0.96 mg/dL 0.55-1.02 [facility] Comment on above: The validity of the calculated GFR & GFRAA in patients over 70 years has not been determined. Clinical correlation is essential. Serum or plasma low density lipoprotein (LDL) cholesterol measurement (mass/volume)Ordered By: Dr. Castillo on 10-23-2022 Cholesterol in LDL [Mass/Vol] 65 mg/dL 0-130 [facility] Serum or plasma urea nitroge n measurement (mass/volume)Ordered By: Dr. Castillo on 10-23-2022 Urea nitrogen [Mass/Vol] 21 mg/dL 7-18 [facility] Squamous epithelial cells de tection in urine sediment by light microscopyOrdered By: Dr. Castillo on 10-23-2022 Epithelial cells.squamous LM Ql (Urine sed) 0-5 SEEN /hpf 5-10 [facility] Thin prep Papanicolaou smear with manual screeningOrdered By: Dr. Castillo on 10-23-2022 Thin prep Papanicolaou smear with manual screening 19 U/L 15-37 [facility] Thin prep Papanicolaou smear with manual screening 9 5-15 [facility] Urine blood detectionOrdered By: Dr. Castillo on 10-23-2022 RBC Ql (U) Negative Negative [facility] RBC Ql (U) 0 SEEN /hpf 0-5 [facility] Urine clarityOrdered By: Dr. Castillo on 10-23-2022 Clarity (U) Sl. Cloudy Clear [facility] Urine color determinationOrd ered By: Dr. Castillo on 10-23-2022 Color (U) Yellow Yellow [facility] Urine creatinine measurement (mass/volume)Ordered By: Dr. Castillo on 10-23-2022 Creatinine (U) [Mass/Vol] 240.00 mg/dL NO RANGE EST. [facility] Urine glucose detectionOrder ed By: Dr. Castillo on 10-23-2022 Glucose Ql (U) Normal mg/dl Normal [facility] Urine leukocyte esterase det ection by dipstickOrdered By: Dr. Castillo on 10-23-2022 Leukocyte esterase Test strip Ql (U) 25 /ul Negative [facility] Urine pHOrdered By: Dr. Orquidea oakley on 10-23-2022 pH (U) 8.0 [pH] 5.0 - 8.0 [facility] Urine protein measurement (m ass/volume)Ordered By: Dr. Castillo on 10-23-2022 Protein (U) [Mass/Vol] 30.3 mg/dL 0.0-11.8 [facility] Urine protein/creatinine mas s ratioOrdered By: Dr. Castillo on 10-23-2022 Protein/Creatinine (U) [Mass ratio] 126 mg/g CRE 0-200 [facility] Urine sediment bacteria coun t by microscopy (number/high power field)Ordered By: Dr. Castillo on 10-23-2022 Bacteria LM.HPF (Urine sed) [#/Area] 0 /[HPF] None Seen [facility] Urine specific gravity measu rementOrdered By: Dr. Castillo on 10-23-2022 Specific gravity (U) [Rel density] 1.010 1.002-1.03 0 [facility] Urobilinogen Auto test strip Ql (U)Ordered By: Dr. Castillo on 10-23-2022 Urobilinogen Ql (U) 1 mg/dl Normal [facility] Absolute lymphocyte countOrd ered By: Dr. Castillo on 06-25-2022 Lymphocytes Auto (Unsp spec) [#/Vol] 1.37 10*3/uL 0.83-4.51 [facility] Basophil percentageOrdered B y: Dr. Castillo on 06-25-2022 Basophils/100 WBC (Bld) 1.0 % 0-1 [facility] Bilirubin [Mass/Vol] 0.40 mg/dL 0.20-1.00 [facility] Comment on above: For patients on eltr ombopag therapy, use of Dimension [place] TBIL is not recommended. Chloride [Moles/Vol] 102 mmol/L 98-107 [facility] Cholesterol [Mass/Vol] 277 mg/dL <200 [facility] Comment on above: <200 mg/dL Desirable 200-240 mg/dL Borderline >240 mg/dL High Risk Eosinophils/100 WBC (Bld) 2.5 % 0-5 [facility] Glucose [Mass/Vol] 78 mg/dL 74-106 [facility] Neutrophils (Bld) [#/Vol] 3.0 10*3/uL 2.0-7.7 [facility] Neutrophils/100 WBC (Bld) 57.2 % 47-70 [facility] Potassium [Moles/Vol] 4.9 mmol/L 3.5-5.1 [facility] Protein [Mass/Vol] 7.3 g/dL 6.4-8.2 [facility] Sodium [Moles/Vol] 135 mmol/L 136-145 [facility] Triglyceride [Mass/Vol] 88 mg/dL <199 [facility] Comment on above: The drugs N-Acetylcy steine and Metamizole may falsely depress this assay.Serum Triglycerides Reference Interval Normal <150 mg/dL Borderline high 150 - 199 mg/dL High 200 - 499 mg/dL Very High > or = 500 mg/dL WBC (Bld) [#/Vol] 5.3 10*3/uL 4.4-11.0 [facility] Blood erythrocytes count (nu mber/volume)Ordered By: Dr. Castillo on 06-25-2022 RBC (Bld) [#/Vol] 4.52 10*6/uL 4.2-5.4 [facility] Blood hemoglobin measurement (mass/volume)Ordered By: Dr. Castillo on 06-25-2022 Hemoglobin (Bld) [Mass/Vol] 13.8 g/dL 12.0-15.0 [facility] Blood lymphocytes/100 leukoc ytesOrdered By: Dr. Castillo on 06-25-2022 Lymphocytes/100 WBC (Bld) 26.0 % 19-41 [facility] Blood monocytes/100 leukocyt esOrdered By: Dr. Castillo on 06-25-2022 Monocytes/100 WBC (Bld) 13.1 % 0-10 [facility] Blood platelet mean volumeOr dered By: Dr. Castillo on 06-25-2022 Platelet mean volume (Bld) [Entitic vol] 10.8 fL 6.2-12.0 [facility] Determination of erythrocyte mean corpuscular volume (MCV)Ordered By: Dr. Castillo on 06-25-2022 MCV (RBC) [Entitic vol] 97.3 fL 81-99 [facility] Hematocrit Auto (Bld) [Volum e fraction]Ordered By: Dr. Castillo on 06-25-2022 Hematocrit (Bld) [Volume fraction] 44.0 % 37-47 [facility] Laboratory - Chemistry and C hemistry - challengeOrdered By: Dr. Castillo on 06-25-2022 ALP [Catalytic activity/Vol] 87 U/L 45-117 [facility] ALT [Catalytic activity/Vol] 28 U/L 13-56 [facility] CO2 [Moles/Vol] 28.0 mmol/L 21.0-32.0 [facility] Globulin (S) [Mass/Vol] 3.5 g/dL 2.2-4.2 [facility] Urea nitrogen/Creatinine [Mass ratio] 25.5 mg/mg 10-20 [facility] Laboratory - Hematology and Cell countsOrdered By: Dr. Castillo on 06-25-2022 Erythrocyte distribution width (RBC) [Entitic vol] 50.5 fL 35.1-43.9 [facility] Erythrocyte distribution width (RBC) [Ratio] 14.0 % 11.6-14.6 [facility] Immature granulocytes/100 WBC (Bld) 0.200 % 0.0-0.9 [facility] Comment on above: IG% - Immature Granu locytes (promyelocytes, myelocytes and metamyelocytes) > 1% indicates that a LEFT SHIFT is Present. MCH (RBC) [Entitic mass] 30.5 pg 27.0-32.0 [facility] Nucleated RBC/100 WBC (Bld) [Ratio] 0 % 0-5 [facility] MCHC Auto (RBC) [Mass/Vol]Or dered By: Dr. Castillo on 06-25-2022 MCHC (RBC) [Mass/Vol] 31.4 g/dL 32-36 [facility] No Panel InformationOrdered By: Dr. Castillo on 06-25-2022 Estimated GFR (MDRD) Amer 66 mL/min >60 [facility] Comment on above: GFR Calc Estimated GFR (MDRD) Non-Af Amer 54 mL/min >60 [facility] Comment on above: Non- GFR Calc Vitamin D 25-Hydroxy 37.9 ng/mL [facility] Comment on above: Vitamin D 25(OH) Sta tus Range Deficiency <20 ng/mL (50nmol/L) Insufficiency 20 - 30 ng/mL (50 - 75 nmol/L) Sufficiency 30 - 100 ng/mL (75 - 250 nmol/L) Toxicity >100 ng/mL (>250 nmol/L) Platelets bldOrdered By: Dr. Castillo on 06-25-2022 Platelets (Bld) [#/Vol] 325 10*3/uL 150-450 [facility] Serum or plasma albumin chad urement (mass/volume)Ordered By: Dr. Castillo on 06-25-2022 Albumin [Mass/Vol] 3.8 g/dL 3.2-5.0 [facility] Serum or plasma albumin/glob ulin mass ratioOrdered By: Dr. Castillo on 06-25-2022 Albumin/Globulin [Mass ratio] 1.1 {ratio} 0.9-2.4 [facility] Serum or plasma calcium chad urement (mass/volume)Ordered By: Dr. Castillo on 06-25-2022 Calcium [Mass/Vol] 9.5 mg/dL 8.5-10.1 [facility] Serum or plasma cholesterol in HDL measurement (mass/volume)Ordered By: Dr. Castillo on 06-25-2022 Cholesterol in HDL [Mass/Vol] 118 mg/dL >40 [facility] Comment on above: The drugs N-Acetylcy steine and Metamizole may falsely depress this assay. Reference Range HDL <40 mg/dL Low HDL Cholesterol HDL >or= 60 mg/dL High HDL Cholesterol Serum or plasma cholesterol in VLDL measurement (mass/volume)Ordered By: Dr. Castillo on 06-25-2022 Cholesterol in VLDL [Mass/Vol] 18 mg/dL 5-40 [facility] Serum or plasma creatinine m easurement (mass/volume)Ordered By: Dr. Castillo on 06-25-2022 Creatinine [Mass/Vol] 1.06 mg/dL 0.55-1.02 [facility] Comment on above: The validity of the calculated GFR & GFRAA in patients over 70 years has not been determined. Clinical correlation is essential. Serum or plasma low density lipoprotein (LDL) cholesterol measurement (mass/volume)Ordered By: Dr. Castillo on 06-25-2022 Cholesterol in LDL [Mass/Vol] 141 mg/dL 0-130 [facility] Serum or plasma urea nitroge n measurement (mass/volume)Ordered By: Dr. Castillo on 06-25-2022 Urea nitrogen [Mass/Vol] 27 mg/dL 7-18 [facility] Thin prep Papanicolaou smear with manual screeningOrdered By: Dr. Castillo on 06-25-2022 Thin prep Papanicolaou smear with manual screening 19 U/L 15-37 [facility] Thin prep Papanicolaou smear with manual screening 5 5-15 [facility] Absolute lymphocyte counton 11-28-2021 Lymphocytes Auto (Unsp spec) [#/Vol] 1.41 10*3/uL 0.83-4.51 [facility] Work Phone: Basophil percentageon 2021 Basophil percentage 0 SEEN /hpf [facility] Work Phone: Basophils/100 WBC (Bld) 1.0 % 0-1 [facility] Work Phone: Bilirubin [Mass/Vol] 0.40 mg/dL 0.20-1.00 [facility] Work Phone: Comment on above: For patients on eltr ombopag therapy, use of Dimension [place] TBIL is not recommended. Chloride [Moles/Vol] 107 mmol/L 98-107 [facility] Work Phone: Cholesterol [Mass/Vol] 189 mg/dL <200 [facility] Work Phone: Comment on above: <200 mg/dL Desirable 200-240 mg/dL Borderline >240 mg/dL High Risk Eosinophils/100 WBC (Bld) 1.4 % 0-5 [facility] Work Phone: Glucose [Mass/Vol] 125 mg/dL 74-106 [facility] Work Phone: Comment on above: Fasting Glucose resu lt from 100 to 125 mg/dL suggests IMPAIRED HOMEOSTASIS per A.D.A. criteria. Neutrophils (Bld) [#/Vol] 3.0 10*3/uL 2.0-7.7 [facility] Work Phone: Neutrophils/100 WBC (Bld) 60.2 % 47-70 [facility] Work Phone: Potassium [Moles/Vol] 4.3 mmol/L 3.5-5.1 [facility] Work Phone: Protein [Mass/Vol] 6.8 g/dL 6.4-8.2 [facility] Work Phone: Sodium [Moles/Vol] 140 mmol/L 136-145 [facility] Work Phone: Triglyceride [Mass/Vol] 44 mg/dL [facility] Work Phone: Comment on above: The drugs N-Acetylcy steine and Metamizole may falsely depress this assay.Serum Triglycerides Reference Interval Normal <150 mg/dL Borderline high 150 - 199 mg/dL High 200 - 499 mg/dL Very High > or = 500 mg/dL WBC (Bld) [#/Vol] 5.1 10*3/uL 4.4-11.0 [facility] Work Phone: Bilirubin Test strip Ql (U)o n 11-28-2021 Bilirubin Ql (U) 1 mg/dL Negative [facility] Work Phone: Comment on above: COLOR OF URINE MAY A FFECT DIPSTICK RESULTS. Blood erythrocytes count (nu mber/volume)on 11-28-2021 RBC (Bld) [#/Vol] 4.14 10*6/uL 4.2-5.4 [facility] Work Phone: Blood hemoglobin measurement (mass/volume)on 11-28-2021 Hemoglobin (Bld) [Mass/Vol] 13.0 g/dL 12.0-15.0 [facility] Work Phone: Blood lymphocytes/100 leukoc yteson 11-28-2021 Lymphocytes/100 WBC (Bld) 27.9 % 19-41 [facility] Work Phone: Blood monocytes/100 leukocyt eson 11-28-2021 Monocytes/100 WBC (Bld) 9.3 % 0-10 [facility] Work Phone: Blood platelet mean volumeon 11-28-2021 Platelet mean volume (Bld) [Entitic vol] 12.0 fL 6.2-12.0 [facility] Work Phone: Calcium oxalate crystals det ection in urine sediment by light microscopyon 11-28-2021 Calcium oxalate crystals LM Ql (Urine sed) 1+ /hpf [facility] Work Phone: Determination of erythrocyte mean corpuscular volume (MCV)on 11-28-2021 MCV (RBC) [Entitic vol] 98.1 fL 81-99 [facility] Work Phone: Hematocrit Auto (Bld) [Volum e fraction]on 11-28-2021 Hematocrit (Bld) [Volume fraction] 40.6 % 37-47 [facility] Work Phone: Ketones Test strip Ql (U)on 11-28-2021 Ketones Ql (U) 5 mg/dl Negative [facility] Work Phone: Laboratory - Chemistry and C hemistry - challengeon 11-28-2021 ALP [Catalytic activity/Vol] 86 U/L 45-117 [facility] Work Phone: ALT [Catalytic activity/Vol] 21 U/L 13-56 [facility] Work Phone: CO2 [Moles/Vol] 27.0 mmol/L 21.0-32.0 [facility] Work Phone: Globulin (S) [Mass/Vol] 2.8 g/dL 2.2-4.2 [facility] Work Phone: Urea nitrogen/Creatinine [Mass ratio] 22.2 mg/mg 10-20 [facility] Work Phone: Laboratory - Hematology and Cell countson 11-28-2021 Erythrocyte distribution width (RBC) [Entitic vol] 50.9 fL 35.1-43.9 [facility] Work Phone: Erythrocyte distribution width (RBC) [Ratio] 14.0 % 11.6-14.6 [facility] Work Phone: Immature granulocytes/100 WBC (Bld) 0.200 % 0.0-0.9 [facility] Work Phone: Comment on above: IG% - Immature Granu locytes (promyelocytes, myelocytes and metamyelocytes) > 1% indicates that a LEFT SHIFT is Present. MCH (RBC) [Entitic mass] 31.4 pg 27.0-32.0 [facility] Work Phone: Nucleated RBC/100 WBC (Bld) [Ratio] 0 % 0-5 [facility] Work Phone: MCHC Auto (RBC) [Mass/Vol]on 11-28-2021 MCHC (RBC) [Mass/Vol] 32.0 g/dL 32-36 [facility] Work Phone: Mucus LM Ql (Urine sed)on Mucus Ql (Urine sed) 0 SEEN /hpf [facility] Work Phone: Nitrite Test strip Ql (U)on 11-28-2021 Nitrite Ql (U) Negative Negative [facility] Work Phone: No Panel Informationon 11-28 Estimated GFR (MDRD) Amer 64 mL/min >60 [facility] Work Phone: Comment on above: GFR Calc Estimated GFR (MDRD) Non-Af Amer 53 mL/min >60 [facility] Work Phone: Comment on above: Non- GFR Calc Vitamin D 25-Hydroxy 52.2 ng/mL [facility] Work Phone: Comment on above: Vitamin D 25(OH) Sta tus Range Deficiency <20 ng/mL (50nmol/L) Insufficiency 20 - 30 ng/mL (50 - 75 nmol/L) Sufficiency 30 - 100 ng/mL (75 - 250 nmol/L) Toxicity >100 ng/mL (>250 nmol/L) Platelets bldon 11-28-2021 Platelets (Bld) [#/Vol] 247 10*3/uL 150-450 [facility] Work Phone: Protein Test strip Ql (U)on 11-28-2021 Protein Ql (U) 30 mg/dl Negative [facility] Work Phone: Serum or plasma albumin chad urement (mass/volume)on 11-28-2021 Albumin [Mass/Vol] 4.0 g/dL 3.2-5.0 [facility] Work Phone: Serum or plasma albumin/glob ulin mass ratioon 11-28-2021 Albumin/Globulin [Mass ratio] 1.4 {ratio} 0.9-2.4 [facility] Work Phone: Serum or plasma calcium chad urement (mass/volume)on 11-28-2021 Calcium [Mass/Vol] 9.3 mg/dL 8.5-10.1 [facility] Work Phone: Serum or plasma cholesterol in HDL measurement (mass/volume)on 11-28-2021 Cholesterol in HDL [Mass/Vol] 107 mg/dL [facility] Work Phone: Comment on above: The drugs N-Acetylcy steine and Metamizole may falsely depress this assay. Reference Range HDL <40 mg/dL Low HDL Cholesterol HDL >or= 60 mg/dL High HDL Cholesterol Serum or plasma cholesterol in VLDL measurement (mass/volume)on 11-28-2021 Cholesterol in VLDL [Mass/Vol] 9 mg/dL 5-40 [facility] Work Phone: Serum or plasma creatinine m easurement (mass/volume)on 11-28-2021 Creatinine [Mass/Vol] 1.08 mg/dL 0.55-1.02 [facility] Work Phone: Comment on above: The validity of the calculated GFR & GFRAA in patients over 70 years has not been determined. Clinical correlation is essential. Serum or plasma low density lipoprotein (LDL) cholesterol measurement (mass/volume)on 11-28-2021 Cholesterol in LDL [Mass/Vol] 73 mg/dL 0-130 [facility] Work Phone: Serum or plasma urea nitroge n measurement (mass/volume)on 11-28-2021 Urea nitrogen [Mass/Vol] 24 mg/dL 7-18 [facility] Work Phone: Squamous epithelial cells de tection in urine sediment by light microscopyon 11-28-2021 Epithelial cells.squamous LM Ql (Urine sed) 0 SEEN /hpf [facility] Work Phone: Thin prep Papanicolaou smear with manual screeningon 11-28-2021 Thin prep Papanicolaou smear with manual screening 21 U/L 15-37 [facility] Work Phone: Thin prep Papanicolaou smear with manual screening 6 5-15 [facility] Work Phone: Urine blood detectionon - RBC Ql (U) Negative Negative [facility] Work Phone: RBC Ql (U) 0 SEEN /hpf [facility] Work Phone: Urine clarityon 11-28-2021 Clarity (U) Clear Clear [facility] Work Phone: Urine color determinationon 11-28-2021 Color (U) Yellow Yellow [facility] Work Phone: Urine creatinine measurement (mass/volume)on 11-28-2021 Creatinine (U) [Mass/Vol] 275.00 mg/dL NO RANGE EST. [facility] Work Phone: Urine glucose detectionon Glucose Ql (U) Normal mg/dl Normal [facility] Work Phone: Urine leukocyte esterase det ection by dipstickon 11-28-2021 Leukocyte esterase Test strip Ql (U) 25 /ul Negative [facility] Work Phone: Urine pHon 11-28-2021 pH (U) 5.0 [pH] [facility] Work Phone: Urine protein measurement (m ass/volume)on 11-28-2021 Protein (U) [Mass/Vol] 28.0 mg/dL 0.0-11.8 [facility] Work Phone: Urine protein/creatinine mas s ratioon 11-28-2021 Protein/Creatinine (U) [Mass ratio] 102 mg/g CRE 0-200 [facility] Work Phone: Urine sediment bacteria coun t by microscopy (number/high power field)on 11-28-2021 Bacteria LM.HPF (Urine sed) [#/Area] 0 /[HPF] None Seen [facility] Work Phone: Urine specific gravity measu rementon 11-28-2021 Specific gravity (U) [Rel density] 1.025 [facility] Work Phone: Urobilinogen Auto test strip Ql (U)on 11-28-2021 Urobilinogen Ql (U) 1 mg/dl Normal [facility] Work Phone: Whole blood hemoglobin A1c/t otal hemoglobin ratio (mass fraction)on 11-28-2021 HbA1c (Bld) [Mass fraction] 5.3 % 3.8-5.6 [facility] Work Phone: Comment on above: Normal < 5.7 % Predi abetic 5.7 - 6.4 % Diabetic >or= 6.5 % Please note range changes. Erythrocyte distribution wid th standard deviationon 09-16-2018 Erythrocyte distribution width (RBC) [Entitic vol] 50.2 fL 35.1-43.9 [facility] Laboratory - Hematology and Cell countson 09-16-2018 Erythrocyte distribution width (RBC) [Ratio] 13.5 % 11.6-14.6 [facility] Total cell counton 9 Cells counted Molgen (Bld/Tiss) [#] Not Reportable [facility] CBC W/Diff, AutomatedOrdered By: Senior Media Director on 05-11-2018 CBC W/Diff, Automated 257 K/mm3 Normal 150-450 [facility] pre[facility]ive [facility] Medicine Work Phone: Comment on above: [facility] [id number] [place], [place], [phone] CBC W/Diff, Automated 59.5 fL Abnormal 35.1-43.9 [facility] Work [facility]: Comment on above: [facility] [address] [place], [address] CBC W/Diff, Automated 17.8 % Abnormal 11.6-14.6 [facility] Work Phone: Comment on above: [facility] [id number] [place], [place], [phone] CBC W/Diff, Automated 32.7 {g/gl} Normal 32-36 [facility] Work Phone: Comment on above: [facility] [address] [place], [address] CBC W/Diff, Automated 1.4 {X10_3/uL} Abnormal 2.0-7.7 [facility] Internal [facility] Work Phone: Comment on above: [facility] [address] [place], [address] CBC W/Diff, Automated 30.1 pg Normal 27.0-32.0 [facility] Work Phone: Comment on above: [facility] [address] [place], [address] CBC W/Diff, Automated 92.1 fL Normal 81-99 [facility] Medicine Work Phone: Comment on above: [facility] [address] [place], [address] CBC W/Diff, Automated 41.9 % Normal 37-47 [facility] Work Phone: Comment on above: [facility] [address] [place], [place], [phone] CBC W/Diff, Automated 13.7 g/dL Normal 12.0-15.0 [facility] Work Phone: Comment on above: [facility] [id number] [place], [address] CBC W/Diff, Automated 4.55 {M/mm3} Normal 4.2-5.4 [facility] Work Phone: Comment on above: [facility] [address] [place], [address] CBC W/Diff, Automated 3.0 K/mm3 Abnormal 4.4-11.0 [facility] Medicine Work Phone: Comment on above: [facility] [address] [place], [address] CBC W/Diff, Automated 1.02 {X10_3/ul} Normal 0.83-4.51 [facility] Work Phone: Comment on above: [facility] [address] [place], [place], [phone] CBC W/Diff, Automated 0.300 % Normal 0.0-0.9 [facility] Medicine Work Phone: Comment on above: IG% - Immature Granu locytes (promyelocytes, myelocytes andmetamyelocytes) > 1% indicates that a LEFT SHIFT is Present. [facility] [id number] [place], [place], [phone] CBC W/Diff, Automated 1.7 % Abnormal 0-1 [facility] Work Phone: Comment on above: [facility] [id number] [place], [place], [phone] CBC W/Diff, Automated 3.7 % Normal 0-5 [facility] Work Phone: Comment on above: [facility] [address] [place], [place], [phone] CBC W/Diff, Automated 12.2 % Abnormal 0-10 [facility] Work Phone: Comment on above: [facility] [address] [place], [place], [phone] CBC W/Diff, Automated 34.5 % Normal 19-41 [facility] Work Phone: Comment on above: [facility] [id number] [place], [place], [phone] CBC W/Diff, Automated 47.6 % Normal 47-70 [facility] Work Phone: Comment on above: [facility] [id number] [place], [place], [phone] CBC W/Diff, Automated 10.4 fL Normal 6.2-12.0 [facility] Work Phone: Comment on above: [facility] [id number] [place], [place], [phone] Comprehensive Metabolic Prof ilOrdered By: Senior Media Director on 05-11-2018 Comprehensive metabolic 2000 panel 9.1 mg/dL Normal 8.5-10.1 [facility] Work Phone: Comment on above: [facility] [address] [place], [address] Comprehensive metabolic 2000 panel 25 U/L Normal 15-37 [facility] Work Phone: Comment on above: [facility] spital [address] [place], [address] Comprehensive metabolic 2000 panel 141 mmol/L Normal 136-145 [facility] Work Phone: Comment on above: [facility] [address] [place], [address] Comprehensive metabolic 2000 panel 0.40 mg/dL Normal 0.20-1.00 [facility] Work Phone: Comment on above: [facility] [address] [place], [place], [phone] Comprehensive metabolic 2000 panel 26.0 mmol/L Normal 21.0-32.0 [facility] Work Phone: Comment on above: [facility] [address] [place], [place], [phone] Comprehensive metabolic 2000 panel 10 1 Normal 5-15 [facility] Work Phone: Comment on above: [facility] [address] [place], [address] Comprehensive metabolic 2000 panel 28 U/L Normal 13-56 [facility] Work Phone: Comment on above: [facility] [address] [place], [address] Comprehensive metabolic 2000 panel 105 mmol/L Normal 98-107 Comprehensi ve Internal Medicine Work Phone: Comment on above: [facility] spital [address] [place], [address] Comprehensive metabolic 2000 panel 84 U/L Normal 45-117 Comprehensi ve Internal Medicine Work Phone: Comment on above: [facility] [address] [place], [address] Comprehensive metabolic 2000 panel 79 mg/dL Normal 74-106 Comprehensi ve Internal Medicine Work Phone: Comment on above: Please note revised GLUCOSE reference range [id number]/02/2018. [facility] [address] [place], [address] Comprehensive metabolic 2000 panel 10 mg/dL Normal 7-18 Comprehensi ve Internal Medicine Work Phone: Comment on above: [facility] [address] [place], [place], [id number] Comprehensive metabolic 2000 panel 1.1 {RATIO} Normal 0.9-2.4 Comprehensi ve Internal Medicine Work Phone: Comment on above: [facility] [address] [place], [place], [id number] Comprehensive metabolic 2000 panel 0.97 mg/dL Normal 0.55-1.02 Comprehensi ve Internal Medicine Work Phone: Comment on above: The validity of the calculated GFR AND GFRAA in patients over70 years has not been determined. Clinical correlation isessential. [facility] [address] [place], [address] Comprehensive metabolic 2000 panel 61 mL/min Normal Comprehensi ve Internal Medicine Work Phone: Comment on above: Non- GFR Calc [facility] [address] [place], [place], [address] Comprehensive metabolic 2000 panel 4.0 mmol/L Normal 3.5-5.1 Comprehensi ve Internal Medicine Work Phone: Comment on above: [facility] [address] [place], [place], [address] Comprehensive metabolic 2000 panel 73 mL/min Normal Comprehensi ve Internal Medicine Work Phone: Comment on above: GFR Calc [facility] [address] [place], [place], [id number] Comprehensive metabolic 2000 panel 10.3 {RATIO} Normal 10-20 Comprehensi ve Internal Medicine Work Phone: Comment on above: [facility] [address] [place], [place], [address] Comprehensive metabolic 2000 panel 6.9 g/dL Normal 6.4-8.2 Comprehensi ve Internal Medicine Work Phone: Comment on above: [facility] [address] [place], [address] Comprehensive metabolic 2000 panel 3.6 g/dL Normal 3.2-5.0 Comprehensi ve Internal Medicine Work Phone: Comment on above: [facility] [address] [place], [address] Comprehensive metabolic 2000 panel 3.3 g/dL Normal 2.2-4.2 Comprehensi ve Internal Medicine Work Phone: Comment on above: [facility] [address] [place], [place], [id number] FerritinOrdered By: Bharath brambila on 05-11-2018 Ferritin mass conc 13 ng/mL Normal 8-252 Compre [facility] Internal Medicine Work Phone: Comment on above: [facility] [address] [place], [place], [id number] Iron+Iron Binding CapacityOr dered By: Senior Media Director on 05-11-2018 Iron+Iron Binding Capacity 20.1 % Normal 15.0-55.0 Comprehensive Internal Medicine Work Phone: Comment on above: [facility] [address] [place], [place], [id number] Iron+Iron Binding Capacity 60 ug/dL Normal 50-170 Comprehensive Internal Medicine Work Phone: Comment on above: [facility] [address] [place], [place], [id number] Iron+Iron Binding Capacity 298 ug/dL Normal 250-450 Comprehensive Internal Medicine Work Phone: Comment on above: [facility] [address] [place], [place], [address] Lipid ProfileOrdered By: Elif tem Webbing Weaver on 05-11-2018 Lipid Profile 13 mg/dL Normal 5-40 Comprehensi ve Internal Medicine Work Phone: Comment on above: [facility] [address] [place], [place], [address] Lipid Profile 94 mg/dL Normal 0-130 Comprehensi ve Internal Medicine Work Phone: Comment on above: [facility] [address] [place], [place], [address] Lipid Profile 105 mg/dL Normal Comprehensi ve Internal Medicine Work Phone: Comment on above: The drugs N-Acetylcy steine and Metamizole may falselydepress this assay. Reference Range HDL <40 mg/dL Low HDL Cholesterol HDL >or= 60 mg/dL High HDL Cholesterol [facility] [address] [place], [place], [address] Lipid Profile 63 mg/dL Normal Comprehensi ve Internal Medicine Work Phone: Comment on above: The drugs N-Acetylcy steine and Metamizole may falselydepress this assay.Serum Triglycerides Reference Interval Normal <150 mg/dL Borderline high 150 - 199 mg/dL High 200 - 499 mg/dL Very High > or = 500 mg/dL [facility] [address] [place], [place], [address] Lipid Profile 212 mg/dL Abnormal Comprehensi ve Internal Medicine Work Phone: Comment on above: <200 mg/dL Desirable 200-240 mg/dL Borderline >240 mg/dL High Risk [facility] [address] [place], [address] MicroalbOrdered By: Bharath brambila on 05-11-2018 Microalb 29.8 {mg/g_CRE} Normal Comprehen sive Internal Medicine Work Phone: Comment on above: [facility] [address] [place], [place], [address] Microalb 18.8 mg/L Normal Comprehensive Internal Medicine Work Phone: Comment on above: [facility] [address] [place], [place], [address] Microalb 63.10 mg/dL Normal Comprehensive Internal Medicine Work Phone: Comment on above: [facility] [address] [place], [place], [address] Thyroid Stim Hormone (TSH)Or dered By: Senior Media Director on 05-11-2018 Thyrotropin Qn 1.39 {uIU/mL} Normal 0.358-3.74 Compreh ensive Internal Medicine Work Phone: Comment on above: [facility] [address] [place], [address] Urinalysis, CompleteOrdered By: Senior Media Director on 05-11-2018 Protein mass conc (U) Negative Normal Com prehensive Internal Medicine Work Phone: Comment on above: How was Urine Obtain ed? [facility] [address] [place], [place], [address] RBC #/vol (U) 0-5 SEEN Normal 0-5 Comprehensi ve Internal Medicine Work Phone: Comment on above: How was Urine Obtain ed? [facility] [address] [place], [address] Urinalysis complete panel - Urine 25 /ul Abnormal Comprehensive Internal Medicine Work Phone: Comment on above: How was Urine Obtain ed? [facility] [address] [place], [place], [phone] Urinalysis complete panel - Urine Normal Normal Comprehensive Internal Medicine Work Phone: Comment on above: How was Urine Obtain ed? [facility] [address] [place], [address] Urinalysis complete panel - Urine Clear Normal Comprehensive Internal Medicine Work Phone: Comment on above: How was Urine Obtain ed? [facility] [address] [place], [address] Urinalysis complete panel - Urine Yellow Normal Comprehensive Internal Medicine Work Phone: Comment on above: How was Urine Obtain ed? [facility] [address] [place], [address] Urinalysis complete panel - Urine 0 SEEN Normal Comprehensive Internal Medicine Work Phone: Comment on above: How was Urine Obtain ed? [facility] [address] [place], [address] Urinalysis complete panel - Urine RARE Normal Comprehensive Internal Medicine Work Phone: Comment on above: How was Urine Obtain ed? [facility] [address] [place], [address] Urinalysis complete panel - Urine 0-5 SEEN Normal 0-5 Comprehensive Internal Medicine Work Phone: Comment on above: How was Urine Obtain ed? [facility] [address] [place], [address] Urinalysis complete panel - Urine Negative Normal Comprehensive Internal Medicine Work Phone: Comment on above: How was Urine Obtain ed? [facility] [address] [place], [address] Urinalysis complete panel - Urine 8.0 1 Normal 5.0 - 8.0 Comprehensive Internal Medicine Work Phone: Comment on above: How was Urine Obtain ed? [facility] [address] [place], [place], [address] Urinalysis complete panel - Urine 1.010 1 Normal 1.002-1.03 0 Comprehensive Internal Medicine Work Phone: Comment on above: How was Urine Obtain ed? [facility] [address] [place], [id number] Vitamin R30Imfougi By: Jahaira falk Webbing Weaver on 05-11-2018 Cobalamin (Vitamin B12) mass conc 904 pg/mL Normal 211-911 Comprehensive Internal Medicine Work Phone: Comment on above: [facility] [address] [place], [place], [phone] Vitamin D,25 HydroxyOrdered By: Senior Media Director on 05-11-2018 Vitamin D,25 Hydroxy 59.7 ng/mL Normal 29.95-1 00. 01 Comprehensive Internal Medicine Work Phone: Comment on above: Vitamin D 25(OH) Sta tus Range Deficiency <20 ng/mL (50nmol/L) Insuffciency 20 - 30 ng/mL (50 - 75 nmol/L) Sufficiency 30 - 100 ng/mL (75 - 250 nmol/L) Toxicity >100 ng/mL (>250 nmol/L) [facility] [address] [place], [place], [id number] No Panel Informationon 03-19 Stool Occult Blood (TAMI) [facility] Stool Occult Blood (TAMI) [facility] Stool Occult Blood iFOBOrder ed By: Senior Media Director on 03-19-2018 Lower GI hemoglobin IA Ql (St) See Note Normal Comprehensive Internal Medicine Work Phone: Comment on above: Reason for Laborator y Test . STOB iFOBOccult Blood Negative [facility] [address] [place], [place], [address] CBC W/Diff, AutomatedOrdered By: Senior Media Director on 03-18-2018 CBC W/Diff, Automated 11.6 g/dL Abnormal 12.0-15.0 Com prehensive Internal Medicine Work Phone: Comment on above: Reason for Laborator y Test [facility] [address] [place], [address] CBC W/Diff, Automated 0.8 % Normal 0-1 Com prehensive Internal Medicine Work Phone: Comment on above: Reason for Laborator y Test [facility] [address] [place], [address] CBC W/Diff, Automated 0.000 % Normal 0.0-0.9 Com prehensive Internal Medicine Work Phone: Comment on above: IG% - Immature Granu locytes (promyelocytes, myelocytes andmetamyelocytes) > 1% indicates that a LEFT SHIFT is Present. Reason for Laborator y Test [facility] [address] [place], [address] CBC W/Diff, Automated 3.2 {X10_3/uL} Normal 2.0-7.7 Comprehensive Internal Medicine Work Phone: Comment on above: Reason for Laborator y Test [facility] [address] [place], [address] CBC W/Diff, Automated 1.41 {X10_3/ul} Normal 0.83-4.51 Comprehensive Internal Medicine Work Phone: Comment on above: Reason for Laborator y Test [facility] [address] [place], [address] CBC W/Diff, Automated 3.9 % Normal 0-5 Com prehensive Internal Medicine Work Phone: Comment on above: Reason for Laborator y Test [facility] [address] [place], [address] CBC W/Diff, Automated 9.2 % Normal 0-10 Com prehensive Internal Medicine Work Phone: Comment on above: Reason for Laborator y Test [facility] [address] [place], [address] CBC W/Diff, Automated 26.5 % Normal 19-41 Com prehensive Internal Medicine Work Phone: Comment on above: Reason for Laborator y Test [facility] [address] [place], [address] CBC W/Diff, Automated 59.6 % Normal 47-70 Com prehensive Internal Medicine Work Phone: Comment on above: Reason for Laborator y Test [facility] [address] [place], [address] CBC W/Diff, Automated 9.4 fL Normal 6.2-12.0 Com prehensive Internal Medicine Work Phone: Comment on above: Reason for Laborator y Test [facility] [address] [place], [address] CBC W/Diff, Automated 289 K/mm3 Normal 150-450 [facility] prehensive Internal Medicine Work Phone: Comment on above: Reason for Laborator y Test [facility] [address] [place], [address] CBC W/Diff, Automated 50.4 fL Abnormal 35.1-43.9 [facility] prehensive Internal Medicine Work Phone: Comment on above: Reason for Laborator y Test [facility] [address] [place], [address] CBC W/Diff, Automated 15.8 % Abnormal 11.6-14.6 [facility] prehensive Internal Medicine Work Phone: Comment on above: Reason for Laborator y Test [facility] [address] [place], [address] CBC W/Diff, Automated 31.3 {g/gl} Abnormal 32-[address] [facility] Work Phone: Comment on above: Reason for Laborator y Test [facility] [address] [place], [place], [address] CBC W/Diff, Automated 27.8 pg Normal 27.0-32.0 Com prehensive Internal Medicine Work Phone: Comment on above: Reason for Laborator y Test [facility] Y[address] [place], [place], [address] CBC W/Diff, Automated 88.8 fL Normal 81-99 Com prehensive Internal Medicine Work Phone: Comment on above: Reason for Laborator y Test [facility] [address] [place], [place], [address] CBC W/Diff, Automated 37.1 % Normal 37-47 [facility] prehensive Internal Medicine Work Phone: Comment on above: Reason for Laborator y Test [facility] [address] [place], [address] CBC W/Diff, Automated 4.18 {M/mm3} Abnormal 4.2-5.4 [facility] Work Phone: Comment on above: Reason for Laborator y Test [facility] [address] [place], [place], [address] CBC W/Diff, Automated 5.3 K/mm3 Normal 4.4-11.0 [facility] prehensive Internal Medicine Work Phone: Comment on above: Reason for Laborator y Test [facility] [address] [place], [place], [address] Comprehensive Metabolic Prof ilOrdered By: Senior Media Director on 03-18-2018 Comprehensive metabolic 2000 panel 97 U/L Normal 45-117 Comprehensi ve Internal Medicine Work Phone: Comment on above: Reason for Laborator y Test [facility] [address] [place], [address] Comprehensive metabolic 2000 panel 7 1 Normal 5-15 Comprehensi ve Internal Medicine Work Phone: Comment on above: Reason for Laborator y Test [facility] [address] [place], [place], [address] Comprehensive metabolic 2000 panel 29 U/L Normal 13-56 Comprehensi ve Internal Medicine Work Phone: Comment on above: Reason for Laborator y Test [facility] [address] [place], [place], [address] Comprehensive metabolic 2000 panel 141 mmol/L Normal 136-145 Comprehensi ve Internal Medicine Work Phone: Comment on above: Reason for Laborator y Test [facility] [address] [place], [place], [address] Comprehensive metabolic 2000 panel 105 mmol/L Normal 98-107 Comprehensi ve Internal Medicine Work Phone: Comment on above: Reason for Laborator y Test [facility] [address] [place], [place], [address] Comprehensive metabolic 2000 panel 4.6 mmol/L Normal 3.5-5.1 Comprehensi ve Internal Medicine Work Phone: Comment on above: Reason for Laborator y Test [facility] [address] [place], [place], [address] Comprehensive metabolic 2000 panel 0.20 mg/dL Normal 0.20-1.00 Comprehensi ve Internal Medicine Work Phone: Comment on above: Reason for Laborator y Test [facility] [address] [place], [place], [address] Comprehensive metabolic 2000 panel 29.0 mmol/L Normal 21.0-32.0 Comprehensi ve Internal Medicine Work Phone: Comment on above: Reason for Laborator y Test [facility] [address] [place], [place], [address] Comprehensive metabolic 2000 panel 93 mg/dL Normal 74-106 Comprehensi ve Internal Medicine Work Phone: Comment on above: Please note revised GLUCOSE reference range mviehnfud72/02/2018. Reason for Laborator y Test [facility] [address] [place], [place], [address] Comprehensive metabolic 2000 panel 20 mg/dL Abnormal 7-18 Comprehensi ve Internal Medicine Work Phone: Comment on above: Reason for Laborator y Test [facility] [address] [place], [place], [address] Comprehensive metabolic 2000 panel 1.18 mg/dL Abnormal 0.55-1.02 Comprehensi ve Internal Medicine Work Phone: Comment on above: The validity of the calculated GFR AND GFRAA in patients over70 years has not been determined. Clinical correlation isessential. Reason for Laborator y Test [facility] [address] [place], [place], [address] Comprehensive metabolic 2000 panel 48 mL/min Abnormal Comprehensi ve Internal Medicine Work Phone: Comment on above: Non- GFR Calc Reason for Laborator y Test [facility] [address] [place], [place], [address] Comprehensive metabolic 2000 panel 59 mL/min Abnormal Comprehensi ve Internal Medicine Work Phone: Comment on above: GFR Calc Reason for Laborator y Test [facility] [address] [place], [place], [address] Comprehensive metabolic 2000 panel 44.99 ml/min Normal Comprehensi ve Internal Medicine Work Phone: Comment on above: Reason for Laborator y Test [facility] [address] [place], [place], [address] Comprehensive metabolic 2000 panel 16.9 {RATIO} Normal 10-20 Comprehensi ve Internal Medicine Work Phone: Comment on above: Reason for Laborator y Test [facility] [address] [place], [place], [address] Comprehensive metabolic 2000 panel 6.9 g/dL Normal 6.4-8.2 Comprehensi ve Internal Medicine Work Phone: Comment on above: Reason for Laborator y Test [facility] [address] [place], [place], [address] Comprehensive metabolic 2000 panel 3.6 g/dL Normal 3.2-5.0 Comprehensi ve Internal Medicine Work Phone: Comment on above: Reason for Laborator y Test [facility] [address] [place], [place], [address] Comprehensive metabolic 2000 panel 3.3 g/dL Normal 2.2-4.2 Comprehensi ve Internal Medicine Work Phone: Comment on above: Reason for Laborator y Test [facility] [address] [place], [address] Comprehensive metabolic 2000 panel 1.1 {RATIO} Normal 0.9-2.4 Comprehensi ve Internal Medicine Work Phone: Comment on above: Reason for Laborator y Test [facility] [address] [place], [address] Comprehensive metabolic 2000 panel 8.9 mg/dL Normal 8.5-10.1 Comprehensi ve Internal Medicine Work Phone: Comment on above: Reason for Laborator y Test [facility] [address] [place], [address] Comprehensive metabolic 2000 panel 20 U/L Normal 15-37 Comprehensi ve Internal Medicine Work Phone: Comment on above: Reason for Laborator y Test [facility] [address] [place], [address] FerritinOrdered By: Bharath brambila on 03-18-2018 Ferritin mass conc 7 ng/mL 8-252 [facility] Internal Medicine Work Phone: Comment on above: ADD ON TESTING USE X TRA TUBESReason for Laboratory Test .[facility] [address] [place], [place], [address] Iron measurement (mass/mass) on 03-18-2018 Iron (Unsp spec) [Mass/Mass] 29 ug/dL 50-170 [facility] Iron+Iron Binding CapacityOr dered By: Senior Media Director on 03-18-2018 Iron+Iron Binding Capacity 8.6 % Abnormal 15.0-55.0 [facility] Work Phone: Comment on above: ADD ON TESTING USE X TRA TUBESReason for Laboratory Test .[facility] [address] [place], [place], [address] Iron+Iron Binding Capacity 29 ug/dL Abnormal 50-170 [facility] Medicine Work Phone: Comment on above: ADD ON TESTING USE X TRA TUBESReason for Laboratory Test .[facility] [address] [place], [place], [address] Iron+Iron Binding Capacity 337 ug/dL Normal 250-450 [facility] Medicine Work Phone: Comment on above: ADD ON TESTING USE X TRA TUBESReason for Laboratory Test .[facility] [address] [place], [place], [address] No Panel Informationon 03-18 Thyroid Stimulating Hormone (TSH) 1.01 uIU/mL 0.358-3.74 [facility] Total Iron Binding Capacity 337 ug/dL 250-450 [facility] Serum or plasma iron saturat ion measurement (mass fraction)on 03-18-2018 Iron saturation [Mass fraction] 8.6 % 15.0-55.0 [facility] Thyroid Stim Hormone (TSH)Or dered By: Senior Media Director on 03-18-2018 Thyrotropin Qn 1.01 {uIU/mL} Normal 0.358-3.74 Compreh ensive Internal Medicine Work Phone: Comment on above: ADD ON TESTING USE X TRA TUBESReason for Laboratory Test .[facility] [address] [place], [place], [address] Vitamin I40Zbxeuoq By: Jahaira falk Webbing Weaver on 03-18-2018 Cobalamin (Vitamin B12) mass conc 269 pg/mL 211-911 [facility] Work Phone: Comment on above: Reason for Laborator y Test .[facility] [address] [place], [place], [address] Basophil percentageon 2017 Basophil percentage 3.2 mg/dL 2.5-4.9 [facility] CBC W/Diff, AutomatedOrdered By: Senior Media Director on 09-10-2017 CBC W/Diff, Automated 46.0 fL Abnormal 35.1-43.9 [facility] prehensive Internal Medicine Work Phone: Comment on above: Reason for Laborator y Test .[facility] [address] [place], [place], [address] CBC W/Diff, Automated 13.9 % Normal 11.6-14.6 [facility] prehensive Internal Medicine Work Phone: Comment on above: Reason for Laborator y Test .[facility] [address] [place], [place], [address] CBC W/Diff, Automated 332 K/mm3 Normal 150-450 [facility] prehensive Internal Medicine Work Phone: Comment on above: Reason for Laborator y Test .[facility] [address] [place], [place], [phone] CBC W/Diff, Automated 4.26 {M/mm3} Normal 4.2-5.4 [facility] Work Phone: Comment on above: Reason for Laborator y Test .[facility] [address] [place], [place], [address] CBC W/Diff, Automated 12.5 g/dL Normal 12.0-15.0 [facility] prehensive Internal Medicine Work Phone: Comment on above: Reason for Laborator y Test .[facility] [address] [place], [place], [address] CBC W/Diff, Automated 39.6 % Normal 37-47 [facility] prehensive Internal Medicine Work Phone: Comment on above: Reason for Laborator y Test .[facility] [address] [place], [place], [address] CBC W/Diff, Automated 93.0 fL Normal 81-99 [facility] Work Phone: Comment on above: Reason for Laborator y Test .[facility] [address] [place], [address] CBC W/Diff, Automated 29.3 pg Normal 27.0-32.0 [facility] Work Phone: Comment on above: Reason for Laborator y Test .[facility] [address] [place], [address] CBC W/Diff, Automated 31.6 {g/gl} Abnormal 32-36 [facility] Internal Medicine Work Phone: Comment on above: Reason for Laborator y Test .[facility] [address] [place], [place], [id number] CBC W/Diff, Automated 0.000 % Normal 0.0-0.9 [facility] Internal Medicine Work Phone: Comment on above: IG% - Immature Granu locytes (promyelocytes, myelocytes andmetamyelocytes) > 1% indicates that a LEFT SHIFT is Present. Reason for Laborator y Test .[facility] [address] [place], [place], [id number] CBC W/Diff, Automated 1.22 {X10_3/ul} Normal 0.83-4.51 [facility] Internal Medicine Work Phone: Comment on above: Reason for Laborator y Test .[facility] [address] [place], [address] CBC W/Diff, Automated 3.5 K/mm3 Abnormal 4.4-11.0 [facility] Internal Medicine Work Phone: Comment on above: Reason for Laborator y Test .[facility] [address] [place], [address] CBC W/Diff, Automated 10.0 fL Normal 6.2-12.0 Com prehensive Internal Medicine Work Phone: Comment on above: Reason for Laborator y Test .[facility] [address] [place], [address] CBC W/Diff, Automated 45.4 % Abnormal 47-70 Com prehensive Internal Medicine Work Phone: Comment on above: Reason for Laborator y Test .[facility] [address] [place], [address] CBC W/Diff, Automated 34.7 % Normal 19-41 Com prehensive Internal Medicine Work Phone: Comment on above: Reason for Laborator y Test .[facility] [address] [place], [address] CBC W/Diff, Automated 14.5 % Abnormal 0-10 Com prehensive Internal Medicine Work Phone: Comment on above: Reason for Laborator y Test .[facility] [address] [place], [address] CBC W/Diff, Automated 4.3 % Normal 0-5 Com prehensive Internal Medicine Work Phone: Comment on above: Reason for Laborator y Test .[facility] [address] [place], [address] CBC W/Diff, Automated 1.1 % Abnormal 0-1 [facility] prehensive Internal Medicine Work Phone: Comment on above: Reason for Laborator y Test .[facility] [address] [place], [address] CBC W/Diff, Automated 1.6 {X10_3/uL} Abnormal 2.0-7.7 [facility] Internal Medicine Work Phone: Comment on above: Reason for Laborator y Test .[facility] [address] [place], [address] Laboratory - Chemistry and C hemistry - challengeon 09-10-2017 Magnesium (Unsp spec) [Moles/Vol] 2.1 mg/dL 1.6-2.6 [facility] Comment on above: Please note revised Magnesium reference range effective 2017. MagnesiumOrdered By: Senior Media Director on 09-10-2017 Magnesium mass conc 2.1 mg/dL Normal 1.6-2.6 [facility] Work Phone: Comment on above: Please note revised Magnesium reference range uuyvdwzov80/15/2018. Reason for Laborator y Test [facility], [facility] [address] [place], [place], [address] PhosphorusOrdered By: Senior Media Director on 09-10-2017 Phosphate mass conc 3.2 mg/dL Normal 2.5-4.9 [facility] Work Phone: Comment on above: Reason for Laborator y Test [facility], [facility] [address] [place], [place], [address] CBC W/Diff, AutomatedOrdered By: Senior Media Director on 09-08-2017 CBC W/Diff, Automated COMMENT Normal Com prehensive Internal Medicine Work Phone: Comment on above: SLIDE SCANNED - NEUT ROPENIA NOTED. [facility] [address] [place], [place], [id number] CBC W/Diff, Automated 92.0 fL Normal 81-99 [facility] prehensive Internal Medicine Work Phone: Comment on above: [facility] [address] [place], [place], [address] CBC W/Diff, Automated 1.13 {X10_3/ul} Normal 0.83-4.51 [facility] Medicine Work Phone: Comment on above: [facility] [address] [place], [address] CBC W/Diff, Automated 1.0 {X10_3/uL} Abnormal 2.0-7.7 [facility] Internal Medicine Work Phone: Comment on above: [facility] Hz[address] [place], [place], [address] CBC W/Diff, Automated 0.400 % Normal 0.0-0.9 Com prehensive Internal Medicine Work Phone: Comment on above: IG% - Immature Granu locytes (promyelocytes, myelocytes andmetamyelocytes) > 1% indicates that a LEFT SHIFT is Present. [facility] [address] [place], [place], [address] CBC W/Diff, Automated 2.1 % Abnormal 0-1 [facility] prehensive Internal Medicine Work Phone: Comment on above: [facility] [address] [place], [place], [address] CBC W/Diff, Automated 6.0 % Abnormal 0-5 Com prehensive Internal Medicine Work Phone: Comment on above: [facility] [address] [place], [place], [address] CBC W/Diff, Automated 16.7 % Abnormal 0-10 [facility] prehensive Internal Medicine Work Phone: Comment on above: [facility] [address] [place], [place], [address] CBC W/Diff, Automated 40.1 % Normal 19-41 [facility] prehensive Internal Medicine Work Phone: Comment on above: [facility] [address] [place], [place], [address] CBC W/Diff, Automated 34.7 % Abnormal 47-70 [facility] prehensive Internal Medicine Work Phone: Comment on above: [facility] [address] [place], [place], [address] CBC W/Diff, Automated 10.3 fL Normal 6.2-12.0 [facility] prehensive Internal Medicine Work Phone: Comment on above: [facility] [address] [place], [place], [address] CBC W/Diff, Automated 311 K/mm3 Normal 150-450 Com prehensive Internal Medicine Work Phone: Comment on above: [facility] [address] [place], [address] CBC W/Diff, Automated 45.5 fL Abnormal 35.1-43.9 Com prehensive Internal Medicine Work Phone: Comment on above: [facility] [address] [place], [address] CBC W/Diff, Automated 13.7 % Normal 11.6-14.6 Com prehensive Internal Medicine Work Phone: Comment on above: [facility] [address] [place], [address] CBC W/Diff, Automated 32.1 {g/gl} Normal 32-36 [facility] Work Phone: Comment on above: [facility] [address] [place], [address] CBC W/Diff, Automated 29.5 pg Normal 27.0-32.0 [facility] prehensive Internal Medicine Work Phone: Comment on above: [facility] [address] [place], [address] CBC W/Diff, Automated 39.0 % Normal 37-47 [facility] prehensive Internal Medicine Work Phone: Comment on above: [facility] [address] [place], [address] CBC W/Diff, Automated 12.5 g/dL Normal 12.0-15.0 [facility] prehensive Internal Medicine Work Phone: Comment on above: [facility] [address] [place], [address] CBC W/Diff, Automated 4.24 {M/mm3} Normal 4.2-5.4 [facility] Work Phone: Comment on above: [facility] I[address] [place], [place], [phone] CBC W/Diff, Automated 2.8 K/mm3 Abnormal 4.4-11.0 Com prehensive Internal Medicine Work Phone: Comment on above: [facility] [address] [place], [place], [address] Comprehensive Metabolic Prof ilOrdered By: Senior Media Director on 09-08-2017 Comprehensive metabolic 2000 panel 25.0 mmol/L Normal 21.0-32.0 Comprehensi ve Internal Medicine Work Phone: Comment on above: [facility] [address] [place], [place], [address] Comprehensive metabolic 2000 panel 3.3 g/dL Normal 2.2-4.2 Comprehensi ve Internal Medicine Work Phone: Comment on above: [facility] [address] [place], [place], [address] Comprehensive metabolic 2000 panel 3.8 g/dL Normal 3.4-5.0 Comprehensi ve Internal Medicine Work Phone: Comment on above: Please note revised Albumin AND Globulin reference rangeeffective 2017. [facility] [address] [place], [place], [address] Comprehensive metabolic 2000 panel 7.1 g/dL Normal 6.4-8.2 Comprehensi ve Internal Medicine Work Phone: Comment on above: [facility] [address] [place], [place], [address] Comprehensive metabolic 2000 panel 17.5 {RATIO} Normal 10-20 Comprehensi ve Internal Medicine Work Phone: Comment on above: [facility] [address] [place], [place], [address] Comprehensive metabolic 2000 panel 4.2 mmol/L Normal 3.5-5.1 Comprehensi ve Internal Medicine Work Phone: Comment on above: [facility] [address] [place], [address] Comprehensive metabolic 2000 panel 16 mg/dL Normal 7-18 Comprehensi ve Internal Medicine Work Phone: Comment on above: [facility] spital [address] [place], [address] Comprehensive metabolic 2000 panel 0.30 mg/dL Normal 0.20-1.00 Comprehensi ve Internal Medicine Work Phone: Comment on above: [facility] [address] [place], [place], [address] Comprehensive metabolic 2000 panel 139 mmol/L Normal 136-145 Comprehensi ve Internal Medicine Work Phone: Comment on above: [facility] [address] [place], [place], [address] Comprehensive metabolic 2000 panel 25 U/L Normal 12-78 Comprehensi ve Internal Medicine Work Phone: Comment on above: [facility] [address] [place], [place], [address] Comprehensive metabolic 2000 panel 70 U/L Normal 45-117 Comprehensi ve Internal Medicine Work Phone: Comment on above: [facility] [address] [place], [address] Comprehensive metabolic 2000 panel 21 U/L Normal 15-37 Comprehensi ve Internal Medicine Work Phone: Comment on above: [facility] [address] [place], [address] Comprehensive metabolic 2000 panel 8.7 mg/dL Normal 8.5-10.1 Comprehensi ve Internal Medicine Work Phone: Comment on above: [facility] [address] [place], [address] Comprehensive metabolic 2000 panel 1.2 {RATIO} Normal 0.9-2.4 Comprehensi ve Internal Medicine Work Phone: Comment on above: [facility] [address] [place], [place], [address] Comprehensive metabolic 2000 panel 106 mmol/L Normal 98-107 Comprehensi ve Internal Medicine Work Phone: Comment on above: [facility] [address] [place], [place], [address] Comprehensive metabolic 2000 panel 86 mg/dL Normal 70-110 Comprehensi ve Internal Medicine Work Phone: Comment on above: [facility] [address] [place], [place], [address] Comprehensive metabolic 2000 panel 0.92 mg/dL Normal 0.55-1.02 Comprehensi ve Internal Medicine Work Phone: Comment on above: The validity of the calculated GFR AND GFRAA in patients over70 years has not been determined. Clinical correlation isessential. [facility] [address] [place], [place], [address] Comprehensive metabolic 2000 panel 8 1 Normal 5-15 Comprehensi ve Internal Medicine Work Phone: Comment on above: [facility] [address] [place], [place], [address] Comprehensive metabolic 2000 panel 65 mL/min Normal Comprehensi ve Internal Medicine Work Phone: Comment on above: Non- GFR Calc [facility] [address] [place], [place], [address] Comprehensive metabolic 2000 panel 79 mL/min Normal Comprehensi ve Internal Medicine Work Phone: Comment on above: GFR Calc [facility] [address] [place], [place], [address] Lipid ProfileOrdered By: Elif tem Webbing Weaver on 09-08-2017 Lipid Profile 17 mg/dL Normal 5-40 Comprehensi ve Internal Medicine Work Phone: Comment on above: [facility] [address] [place], [place], [id number] Lipid Profile 100 mg/dL Normal 0-130 Comprehensi ve Internal Medicine Work Phone: Comment on above: [facility] [address] [place], [place], [id number] Lipid Profile 95 mg/dL Normal Comprehensi ve Internal Medicine Work Phone: Comment on above: The drugs N-Acetylcy steine and Metamizole may falselydepress this assay. Reference Range HDL <40 mg/dL Low HDL Cholesterol HDL >or= 60 mg/dL High HDL Cholesterol [place] [address] [place], [place], [address] Lipid Profile 85 mg/dL Normal Comprehensi ve Internal Medicine Work Phone: Comment on above: The drugs N-Acetylcy steine and Metamizole may falselydepress this assay.Serum Triglycerides Reference Interval Normal <150 mg/dL Borderline high 150 - 199 mg/dL High 200 - 499 mg/dL Very High > or = 500 mg/dL [facility] [address] [place], [place], [address] Lipid Profile 212 mg/dL Abnormal Comprehensi ve Internal Medicine Work Phone: Comment on above: <200 mg/dL Desirable 200-240 mg/dL Borderline >240 mg/dL High Risk [place] [address] [place], [place], [address] MicroalbOrdered By: Bharath brambila on 09-08-2017 Microalb 13.6 {mg/g_CRE} Normal Comprehen sive Internal Medicine Work Phone: Comment on above: [facility] [address] [place], [place], [address] Microalb 16.6 mg/L Normal [facility] Internal Medicine Work Phone: Comment on above: [facility] [address] [place], [place], [address] Microalb 122.00 mg/dL Normal Comprehensiv e Internal Medicine Work Phone: Comment on above: [facility] [address] [place], [phone] Thyroid Stim Hormone (TSH)Or dered By: Senior Media Director on 09-08-2017 Thyrotropin Qn 2.28 {uIU/mL} Normal 0.358-3.74 Compreh ensive Internal Medicine Work Phone: Comment on above: [facility] [address] [place], [address] Urinalysis, CompleteOrdered By: Senior Media Director on 09-08-2017 Protein mass conc (U) Negative Normal Com prehensive Internal Medicine Work Phone: Comment on above: How was Urine Obtain ed? [facility] [address] [place], [address] RBC #/vol (U) 0 SEEN Normal 0-5 Comprehensi ve Internal Medicine Work Phone: Comment on above: How was Urine Obtain ed? [facility] [address] [place], [address] Urinalysis complete panel - Urine 0-5 SEEN Normal 5-10 [facility] Internal Medicine Work Phone: Comment on above: How was Urine Obtain ed? [facility] [address] [place], [address] Urinalysis complete panel - Urine 500 /ul Abnormal [facility] Internal Medicine Work Phone: Comment on above: How was Urine Obtain ed? [facility] [address] [place], [address] Urinalysis complete panel - Urine Negative Normal [facility] Internal Medicine Work Phone: Comment on above: How was Urine Obtain ed? [facility] [address] [place], [address] Urinalysis complete panel - Urine Normal Normal [facility] Internal Medicine Work Phone: Comment on above: How was Urine Obtain ed? [facility] [address] [place], [address] Urinalysis complete panel - Urine 8.0 1 Normal 5.0 - 8.0 [facility] Internal Medicine Work Phone: Comment on above: How was Urine Obtain ed? [facility] [address] [place], [address] Urinalysis complete panel - Urine 1.015 1 Normal 1.002-1.03 0 [facility] Internal Medicine Work Phone: Comment on above: How was Urine Obtain ed? [facility] [address] [place], [address] Urinalysis complete panel - Urine Sl. Cloudy Normal [facility] Internal Medicine Work Phone: Comment on above: How was Urine Obtain ed? [facility] [address] [place], [address] Urinalysis complete panel - Urine Yellow Normal [facility] Internal Medicine Work Phone: Comment on above: How was Urine Obtain ed? [facility] [address] [place], [address] Urinalysis complete panel - Urine 0 SEEN Normal [facility] Internal Medicine Work Phone: Comment on above: How was Urine Obtain ed? [facility] [address] [place], [address] Urinalysis complete panel - Urine RARE Normal Comprehensive Internal Medicine Work Phone: Comment on above: How was Urine Obtain ed? [facility] [address] [place], [address] Vitamin D,25 HydroxyOrdered By: Senior Media Director on 09-08-2017 Vitamin D,25 Hydroxy 50.6 ng/mL Normal Comp rehensive Internal Medicine Work Phone: Comment on above: Vitamin D 25(OH) Sta tus Range Deficiency <20 ng/mL (50nmol/L) Insuffciency 20 - 30 ng/mL (50 - 75 nmol/L) Sufficiency 30 - 100 ng/mL (75 - 250 nmol/L) Toxicity >100 ng/mL (>250 nmol/L) [facility] [address] [place], [address] CBC W/Diff, Auto - EPLAB Onl yOrdered By: Senior Media Director on 03-10-2017 Basophils/100 WBC (Bld) 1.3 % Abnormal 0-1 [facility] Internal Medicine Work Phone: Comment on above: Order Date: 09/12/16 Order Info: [id number] - *CBC w/Diff - oncology ONLYAt [facility] [place] Medical Oncologypatients receive CBC w/auto Differential ONLY. Physicianwill place an order for a manual differential or Pathologistreview at his discretion. [facility]. [address] [place] [address] [address] CAR PINCHER: MAGNOLIA HOLLY DO PH:[phone] [facility] City [facility] Hospital [address] [place], [place], [address] CBC W Auto Differential panel - Blood 2.3 {X10_3/uL} Normal 2.0-7.7 [facility] Internal Medicine Work Phone: Comment on above: Order Date: 09/12/16 Order Info: [id number] - *CBC w/Diff - oncology ONLYAt [facility] Outpatient [facility] [place], [facility] Medical Oncologypatients receive CBC w/auto Differential ONLY. Physicianwill place an order for a manual differential or Pathologistreview at his discretion. [facility]. [address] [place] [address] [address] CAR PINCHER: MAGNOLIA HOLLY DO PH:[phone] Grove City Methodist Hospital [address] [place], [place], [phone] Eosinophils/100 WBC (Bld) 5.2 % Abnormal 0-5 [facility] Internal Medicine Work Phone: Comment on above: Order Date: 09/12/16 Order Info: [id number] - *CBC w/Diff - [facility] ONLYAt [facility] Oncologypatients receive CBC w/auto Differential ONLY. Physicianwill place an order for a manual differential or Pathologistreview at his discretion. [facility]. [address] [place] [address] [address] CAR PINCHER: MAGNOLIA HOLLY DO PH:[phone] Grove City [facility] Hospital [address] [place], [place], [phone] Erythrocyte distribution width Ratio (RBC) 13.6 % Normal 11.6-14.6 [facility] Internal Medicine Work Phone: Comment on above: Order Date: 09/12/16 Order Info: [id number] - *CBC w/Diff - oncology ONLYAt [facility] Oncologypatients receive CBC w/auto Differential ONLY. Physicianwill place an order for a manual differential or Pathologistreview at his discretion. [facility]. [address] [place] [address] [address] CAR PINCHER: MAGNOLIA HOLLY DO PH:[phone] Grove City Methodist Hospital [address] [place], [place], [phone] Hematocrit Volume Fraction (Bld) 40.8 % Normal 37-47 [facility] Internal Medicine Work Phone: Comment on above: Order Date: 09/12/16 Order Info: [id number] - *CBC w/Diff - oncology ONLYAt [facility] Medical Oncologypatients receive CBC w/auto Differential ONLY. Physicianwill place an order for a manual differential or Pathologistreview at his discretion. [facility]. [address] [place] [address] [address] CAR PINCHER: MAGNOLIA HOLLY DO PH:[phone] Grove City Methodist Hospital [address] [place], [address] Hemoglobin mass conc (Bld) 13.9 g/dL Normal 12.0-15.0 [facility] Internal Medicine Work Phone: Comment on above: Order Date: 09/12/16 Order Info: [id number] - *CBC w/Diff - oncology ONLYAt [facility] Out[facility] [place], [facility] Medical Oncologypatients receive CBC w/auto Differential ONLY. Physicianwill place an order for a manual differential or Pathologistreview at his discretion. [facility]. [address] [place] [address] [address] CAR PINCHER: MAGNOLIA HOLLY DO PH:[phone] Grove City Methodist Hospital [address] [place], [place], [phone] Lymphocytes #/vol (Bld) 1.28 {X10_3/uL} Normal 0.83-4.51 [facility] Medicine Work Phone: Comment on above: Order Date: 09/12/16 Order Info: [id number] - *CBC w/Diff - oncology ONLYAt [facility] Oncologypatients receive CBC w/auto Differential ONLY. Physicianwill place an order for a manual differential or Pathologistreview at his discretion. [facility]. [address] [place] [address] [address] CAR PINCHER: MAGNOLIA HOLLY DO PH:[phone] Grove City Methodist Hospital [address] [place], [place], [address]([phone]) Lymphocytes/100 WBC (Bld) 29.2 % Normal 19-41 [facility] Internal Medicine Work Phone: Comment on above: Order Date: 09/12/16 Order Info: [id number] - *CBC w/Diff - oncology ONLYAt [facility] Outpatient [facility] [place], [facility] Medical Oncologypatients receive CBC w/auto Differential ONLY. Physicianwill place an order for a manual differential or Pathologistreview at his discretion. [facility]. [address] [place] [address] [address] CAR PINCHER: MAGNOLIA HOLLY DO PH:[phone] Grove City Methodist Hospital [address]xu[address] [place], [place], [phone] M[facility] Entitic mass (RBC) 32.2 pg Abnormal 27.0-32.0 [facility] Medicine Work Phone: Comment on above: Order Date: 09/12/16 Order Info: [id number] - *CBC w/Diff - oncology ONLYAt [facility] Oncologypatients receive CBC w/auto Differential ONLY. Physicianwill place an order for a manual differential or Pathologistreview at his discretion. [facility]. [address] [place] [address] [address] CAR PINCHER: MAGNOLIA HOLLY DO PH:[phone] Grove City Methodist Hospital [address] [place], [place], [phone] MCHC mass conc (RBC) 34.1 g/dL Normal 32-36 [facility] Internal Medicine Work Phone: Comment on above: Order Date: 09/12/16 Order Info: [id number] - *CBC w/Diff - oncology ONLYAt [facility] Oncologypatients receive CBC w/auto Differential ONLY. Physicianwill place an order for a manual differential or Pathologistreview at his discretion. [facility] [facility] [address] [place] [address] [address] CAR PINCHER: MAGNOLIA HOLLY DO PH:[phone] Grove City Methodist Hospital [address] [place], [place], [phone] MCV Entitic volume (RBC) 94.4 fL Normal 81-99 Comprehensive Internal Medicine Work Phone: Comment on above: Order Date: 09/12/16 Order Info: 0184-1E - *CBC w/Diff - oncology ONLYAt [facility] [place], [facility] Medical Oncologypatients receive CBC w/auto Differential ONLY. Physicianwill place an order for a manual differential or Pathologistreview at his discretion. [facility]. [address] [place] [address] [address] CAR PINCHER: MAGNOLIA HOLLY DO PH:[phone] Grove City Methodist Hospital [address] [place], [address] Monocytes/100 WBC (Bld) 10.7 % Abnormal 0-10 [facility] Internal Medicine Work Phone: Comment on above: Order Date: 09/12/16 Order Info: 0184-1E - *CBC w/Diff - onc[facility] ONLYAt [facility] Oncologypatients receive CBC w/auto Differential ONLY. Physicianwill place an order for a manual differential or Pathologistreview at his discretion. [facility]. [address] [place] [address] [address] CAR PINCHER: MAGNOLIA HOLLY DO PH:[phone] Grove City Methodist Hospital [address] [place], [place], [address] Neutrophils/100 WBC (Bld) 53.6 % Normal 47-70 [facility] Internal Medicine Work Phone: Comment on above: Order Date: 09/12/16 Order Info: 0184-1E - *CBC w/Diff - oncology ONLYAt [facility] Oncologypatients receive CBC w/auto Differential ONLY. Physicianwill place an order for a manual differential or Pathologistreview at his discretion. [facility]. [address] [place] [address] [address] CAR PINCHER: MAGNOLIA HOLLY DO PH:[phone] Grove City Methodist Hospital [address] [place], [place], [address] Platelet mean volume Entitic volume (Bld) 7.6 fL Normal 6.2-12.0 [facility] Internal Medicine Work Phone: Comment on above: Order Date: 09/12/16 Order Info: 0184-1E - *CBC w/Diff - oncology ONLYAt [facility] Oncologypatients receive CBC w/auto Differential ONLY. Physicianwill place an order for a manual differential or Pathologistreview at his discretion. [facility]. [address] [place] [address] [address] CAR PINCHER: MAGNOLIA HOLLY DO PH:[phone] Grove City Methodist Hospital [address] [place], [place], [address] Platelets #/vol (Bld) 264 10*3/uL Normal 150-450 Co mprehensive Internal Medicine Work Phone: Comment on above: Order Date: 09/12/16 Order Info: 0184-1E - *CBC w/Diff - oncology ONLYAt [facility] [place] Medical Oncologypatients receive CBC w/auto Differential ONLY. Physicianwill place an order for a manual differential or Pathologistreview at his discretion. [facility]. [address] [place] [address] [address] CAR PINCHER: MAGNOLIA AVNI DO PH:[phone] Grove City [facility] Hospital [address] [place], [place], [address] RBC #/vol (Bld) 4.32 {M/mm3} Normal 4.2-5.4 Compreh ensive Internal Medicine Work Phone: Comment on above: Order Date: 09/12/16 Order Info: 0184-1E - *CBC w/Diff - oncology ONLYAt [facility] Oncologypatients receive CBC w/auto Differential ONLY. Physicianwill place an order for a manual differential or Pathologistreview at his discretion. [facility]. [address] [place] [address] [address] CAR PINCHER: MAGNOLIA HOLLY DO PH:[phone] Grove City Methodist Hospital [address] [place], [place], [address] WBC #/vol (Bld) 4.4 10*3/uL Normal 4.4-11.0 Comprehe nsive Internal Medicine Work Phone: Comment on above: Order Date: 09/12/16 Order Info: 0184-1E - *CBC w/Diff - oncology ONLYAt [facility] Oncologypatients receive CBC w/auto Differential ONLY. Physicianwill place an order for a manual differential or Pathologistreview at his discretion. [facility]. [address] [place] [address] [address] CAR PINCHER: MAGNOLIA HOLLY DO PH:[phone] Grove City Methodist Hospital [address] [place], [address] Comprehensive Metabolic Prof ilOrdered By: Senior Media Director on 03-10-2017 Comprehensive metabolic 2000 panel 3.5 g/dL Normal 2.3-3.5 Comprehensi ve Internal Medicine Work Phone: Comment on above: Order Date: 09/12/16 Order Info: 0786-1 - *CMP Complete Metabolic PanelWMercy Health [facility] [address] [place], [place], [address] Comprehensive metabolic 2000 panel 70 U/L Normal 45-117 Comprehensi ve Internal Medicine Work Phone: Comment on above: Order Date: 09/12/16 Order Info: 0786-1 - *CMP Complete Metabolic PanelWMercy [facility] [address] [place], [place], [address] Comprehensive metabolic 2000 panel 60 mL/min Normal Comprehensi ve Internal Medicine Work Phone: Comment on above: GFR Calc Order Date: 09/12/16 Order Info: 0786-1 - *CMP Complete Metabolic PanelWMercy [facility] [address] [place], [place], [address] Comprehensive metabolic 2000 panel 23.0 mmol/L Normal 21.0-32.0 Comprehensi ve Internal Medicine Work Phone: Comment on above: Order Date: 09/12/16 Order Info: 0786-1 - *CMP Complete Met[facility] PanelWMercy [facility] [address] [place], [place], [address] Comprehensive metabolic 2000 panel 7.5 g/dL Normal 6.4-8.2 Comprehensi ve Internal Medicine Work Phone: Comment on above: Order Date: 09/12/16 Order Info: 0786-1 - *CMP Complete Met[facility] PanelWMer[facility] [address] [place], [address] Comprehensive metabolic 2000 panel 4.0 g/dL Normal 3.4-5.0 Comprehensi ve Internal Medicine Work Phone: Comment on above: Order Date: 09/12/16 Order Info: 0786-1 - *CMP Complete Met[facility]WMer[facility] [address] [place], [place], [address] Comprehensive metabolic 2000 panel 50 mL/min Abnormal Comprehensi ve Internal Medicine Work Phone: Comment on above: Non- GFR Calc Order Date: 09/12/16 Order Info: 0786-1 - *[facility] Complete Metabolic PanelOhiohealth Grove City Methodist Hospital [address] [place], [address] Comprehensive metabolic 2000 panel 1.16 mg/dL Abnormal 0.55-1.02 Comprehensi ve Internal Medicine Work Phone: Comment on above: The validity of the calculated GFR AND GFRAA in patients over70 years has not been determined. Clinical correlation isessential. Order Date: 09/12/16 Order Info: 0786-1 - *[facility] Complete Metabolic PanelWMercy [facility] [address]eltmhy[address] [place], [place], [address] Comprehensive metabolic 2000 panel 113 mg/dL Abnormal 70-110 Comprehensi ve Internal Medicine Work Phone: Comment on above: Fasting Glucose resu lt from 110 to <126 mg/dLsuggests IMPAIRED HOMEOSTASIS per A.D.A. criteria. Order Date: 09/12/16 Order Info: 0786-1 - *[facility] Complete Metabolic PanelOhiohealth Grove City Methodist Hospital [address] [place], [place], [address] Comprehensive metabolic 2000 panel 1.1 {RATIO} Normal 0.9-2.4 Comprehensi ve Internal Medicine Work Phone: Comment on above: Order Date: 09/12/16 Order Info: 0786-1 - *[facility] Complete Metabolic PanelOhiohealth Grove City [facility] Hospital [address]yn[address] [place], [address] Comprehensive metabolic 2000 panel 12 1 Normal 5-15 Comprehensi ve Internal Medicine Work Phone: Comment on above: Order Date: 09/12/16 Order Info: 0786-1 - *[facility] Complete Metabolic PanelOhiohealth Grove City [facility] Hospital [address] [place], [place], [address] Comprehensive metabolic 2000 panel 9.2 mg/dL Normal 8.5-10.1 Comprehensi ve Internal Medicine Work Phone: Comment on above: Order Date: 09/12/16 Order Info: 0786-1 - *CMP Complete Met[facility]WMer[facility] [address] [place], [address] Comprehensive metabolic 2000 panel 108 mmol/L Abnormal 98-107 Comprehensi ve Internal Medicine Work Phone: Comment on above: Order Date: 09/12/16 Order Info: 0786-1 - *CMP Complete Met[facility] PanelWMer[facility] [address] [place], [address] Comprehensive metabolic 2000 panel 13 mg/dL Normal 7-18 Comprehensi ve Internal Medicine Work Phone: Comment on above: Order Date: 09/12/16 Order Info: 0786-1 - *CMP Complete Met[facility] PanelWMer[facility] [address] [place], [address] Comprehensive metabolic 2000 panel 4.3 mmol/L Normal 3.5-5.1 Comprehensi ve Internal Medicine Work Phone: Comment on above: Order Date: 09/12/16 Order Info: 0786-1 - *CMP Complete Met[facility]WMer[facility] [address] [place], [address] Comprehensive metabolic 2000 panel 22 U/L Normal 15-37 Comprehensi ve Internal Medicine Work Phone: Comment on above: Order Date: 09/12/16 Order Info: 0786-1 - *CMP Complete Metabolic PanelWMer[facility] [address] [place], [address] Comprehensive metabolic 2000 panel 143 mmol/L Normal 136-145 Comprehensi ve Internal Medicine Work Phone: Comment on above: Order Date: 09/12/16 Order Info: 0786-1 - *CMP Complete Metabolic PanelWMercy [facility] [address] [place], [address] Comprehensive metabolic 2000 panel 0.40 mg/dL Normal 0.20-1.00 Comprehensi ve Internal Medicine Work Phone: Comment on above: Order Date: 09/12/16 Order Info: 0786-1 - *CMP Complete Metabolic PanelOhiohealth Grove City [facility] Hospital [address] [place], [id number] Comprehensive metabolic 2000 panel 28 U/L Normal 12-78 Comprehensi ve Internal Medicine Work Phone: Comment on above: Order Date: 09/12/16 Order Info: 0786-1 - *CMP Complete Metabolic PanelOhiohealth Grove City [facility] Hospital [address] [place], [id number] Comprehensive metabolic 2000 panel 11.2 {RATIO} Normal 10-20 [facility]ensi Internal Medicine Work Phone: Comment on above: Order Date: 09/12/16 Order Info: 0786-1 - *CMP Complete Metabolic PanelOhiohealth Grove City [facility] Hospital [address] [place] [place], [address] CBC, Platelets & Auto Diff ( [id number])Ordered By: Senior Media Director on 01-07-2017 Basophils #/vol (Bld) 0.0 {x10E3/uL} Normal 0.0-0.2 Comprehensive Internal Medicine Work Phone: Comment on above: PATIENT NOT FASTINGP ERFORMED BY: BRE [facility] Altzwt9204 [facility] [id number] Basophils/100 WBC (Bld) 0 % Normal Comprehensive Internal Medicine Work Phone: Comment on above: PATIENT NOT FASTINGP ERFORMED BY: BRE [facility] Uxkbvp9910 [facility] [id number] Eosinophils #/vol (Bld) 0.2 {x10E3/uL} Normal 0.0-0.4 Comprehensive Internal Medicine Work Phone: Comment on above: PATIENT NOT FASTINGP ERFORMED BY: [facility] Ejpldw6833 [facility] [id number] Eosinophils/100 WBC (Bld) 3 % Normal Comprehensive Internal Medicine Work Phone: Comment on above: PATIENT NOT FASTINGP ERFORMED BY: BRE Quintero6370 [facility] [id number] Erythrocyte distribution width Ratio (RBC) 15.5 % Abnormal 12.3-15.4 Comprehensive Internal Medicine Work Phone: Comment on above: PATIENT NOT FASTINGP ERFORMED BY: BRE Mata Suncrm6096 [facility] [id number] Hematocrit Volume Fraction (Bld) 36.5 % Normal 34.0-46.6 Comprehensive Internal Medicine Work Phone: Comment on above: PATIENT NOT FASTINGP ERFORMED BY: BRE BaxterRanken [facility] Oazmuu3322 [facility] [id number] Hemoglobin mass conc (Bld) 11.8 g/dL Normal 11.1-15.9 Comprehensive Internal Medicine Work Phone: Comment on above: PATIENT NOT FASTINGP ERFORMED BY: VeeRanken [facility] Qflrnz3646 [facility] [id number] Immature granulocytes #/vol (Bld) 0.0 {x10E3/uL} Normal 0.0-0.1 Comprehensive Internal Medicine Work Phone: Comment on above: PATIENT NOT FASTINGP ERFORMED BY: LabCoEssex County HospitalIylqmj1355 [facility] [id number] Immature granulocytes/100 WBC (Bld) 0 % Normal Comprehensive Internal Medicine Work Phone: Comment on above: PATIENT NOT FASTINGP ERFORMED BY: LabCoEssex County HospitalNggrfo0559 [facility] [id number] Lymphocytes #/vol (Bld) 1.3 {x10E3/uL} Normal 0.7-3.1 Comprehensive Internal Medicine Work Phone: Comment on above: PATIENT NOT FASTINGP ERFORMED BY: [facility] Rkmtiy4598 [facility] [id number] Lymphocytes/100 WBC (Bld) 24 % Normal Comprehensive Internal Medicine Work Phone: Comment on above: PATIENT NOT FASTINGP ERFORMED BY: BRE VeeKaren Quintero6370 [facility] [id number] MCH Entitic mass (RBC) 29.9 pg Normal 26.6-33.0 Comprehensive Internal Medicine Work Phone: Comment on above: PATIENT NOT FASTINGP ERFORMED BY: BRE VeeKaren GuajardoTkilbm3951 [facility] [id number] MCHC mass conc (RBC) 32.3 g/dL Normal 31.5-35.7 Comp [facility] Internal Medicine Work Phone: Comment on above: PATIENT NOT FASTINGP ERFORMED BY: BRE Quintero6370 [facility] [id number] MCV Entitic volume (RBC) 92 fL Normal 79-97 Comprehensive Internal Medicine Work Phone: Comment on above: PATIENT NOT FASTINGP ERFORMED BY: BRE Guajardolin6370 [facility] [id number] Monocytes #/vol (Bld) 0.7 {x10E3/uL} Normal 0.1-0.9 Comprehensive Internal Medicine Work Phone: Comment on above: PATIENT NOT FASTINGP ERFORMED BY: BER Guajardolin6370 [facility] [id number] Monocytes/100 WBC (Bld) 13 % Normal Comprehensive Internal Medicine Work Phone: Comment on above: PATIENT NOT FASTINGP ERFORMED BY: BRE VeeKaren GuajardoLvrzcc0350 [facility] [id number] Neutrophils #/vol (Bld) 3.1 {x10E3/uL} Normal 1.4-7.0 Comprehensive Internal Medicine Work Phone: Comment on above: PATIENT NOT FASTINGP ERFORMED BY: BRE VeeKaren GuajardoPqaefh3225 [facility] [id number] Neutrophils/100 WBC (Bld) 60 % Normal Comprehensive Internal Medicine Work Phone: Comment on above: PATIENT NOT FASTINGP ERFORMED BY: BRE Gonzalez Ruxwnx3730 [address] RoadDublin [place] [id number] Platelets #/vol (Bld) 299 {x10E3/uL} Normal 150-379 Comprehensive Internal Medicine Work Phone: Comment on above: PATIENT NOT FASTINGP ERFORMED BY: BRE [facility] Cjljwu4597 [address] Roadblin [place] [id number] RBC #/vol (Bld) 3.95 {x10E6/uL} Normal 3.77-5.28 Comp [facility] hospitalensive Internal Medicine Work Phone: Comment on above: PATIENT NOT FASTINGP ERFORMED BY: [facility] Efhqkd9223 [address] Roadblin [place] [id number] WBC #/vol (Bld) 5.3 {x10E3/uL} Normal 3.4-10.8 Compr [facility] Internal Medicine Work Phone: Comment on above: PATIENT NOT FASTINGP ERFORMED BY: LabSchoolcraft Memorial Hospital6370 [facility] [id number] MAGNESIUM ([id number])Ordered By: Senior Media Director on 01-07-2017 Magnesium mass conc 1.9 mg/dL Normal 1.6-2.3 Compr [facility] Internal Medicine Work Phone: Comment on above: PATIENT NOT FASTINGP ERFORMED BY: [facility] Urhomj1290 [address] [facility]in [place] [id number] Metabolic Panel, Comprehensi ve (76116)Ordered By: Senior Media Director on 01-07-2017 Albumin mass conc 4.0 g/dL Normal 3.6-4.8 Compreh [facility] Internal Medicine Work Phone: Comment on above: PATIENT NOT FASTINGP ERFORMED BY: [facility] Gazvhj8522 [address] RoadDublin [place] [id number] Albumin/Globulin mass ratio 1.9 {ratio} Normal 1.2-2.2 [facility] Internal Medicine Work Phone: Comment on above: PATIENT NOT FASTINGP ERFORMED BY: [facility] Cudmdl9834 [address] RoadDublin [place] [id number] ALP enzyme act/vol 66 [iU]/L Normal 39-117 Compre [facility] Internal Medicine Work Phone: Comment on above: PATIENT NOT FASTINGP ERFORMED BY: BRE [facility] Jcuijr7764 [address] RoadDublin [place] [id number] ALT enzyme act/vol 26 [iU]/L Normal 0-32 Compre [facility] Internal Medicine Work Phone: Comment on above: PATIENT NOT FASTINGP ERFORMED BY: CB [facility] Dmirou9106 [address] Roadblin [place] [id number] AST enzyme act/vol 34 [iU]/L Normal 0-40 Compre [facility] Internal Medicine Work Phone: Comment on above: PATIENT NOT FASTINGP ERFORMED BY: BRE [facility] Gowthk8488 [address] RoadNovant Health Forsy[facility] Medical Centerin [place] [id number] Bilirubin mass conc 0.2 mg/dL Normal 0.0-1.2 Compr ensive Internal Medicine Work Phone: Comment on above: PATIENT NOT FASTINGP ERFORMED BY: BRE [facility] Lgdsrs2369 [address] RoadNovant Health Forsyth Medical Centerin [place] [id number] Calcium mass conc 9.4 mg/dL Normal 8.7-10.3 Compreh ensive Internal Medicine Work Phone: Comment on above: PATIENT NOT FASTINGP ERFORMED BY: BRE [facility] Jdptnc0621 [address] RoadNovant Health Forsyth Medical Centerin [place] [id number] Chloride molar conc 103 mmol/L Normal 96-106 Compr ensive Internal Medicine Work Phone: Comment on above: PATIENT NOT FASTINGP ERFORMED BY: BRE [facility] Tusduc3607 [address] RoadNovant Health Forsyth Medical Centerin [place] [id number] CO2 molar conc 24 mmol/L Normal 18-29 Comprehens cheri Internal Medicine Work Phone: Comment on above: PATIENT NOT FASTINGP ERFORMED BY: BRE [facility] Bnvkoe7599 [address] Roadblin [place] [id number] Creatinine mass conc 0.95 mg/dL Normal 0.57-1.00 Comp rehensive Internal Medicine Work Phone: Comment on above: PATIENT NOT FASTINGP ERFORMED BY: BRE [facility] Owyyku4290 [address] RoadDublin [place] [id number] GFR/1.73 sq M predicted among blacks CKD-EPI vol rate/area (S/P/Bld) 72 mL/min/1.73 Normal Comprehensiv e Internal Medicine Work Phone: Comment on above: PATIENT NOT FASTINGP ERFORMED BY: BRE Guajardolin6370 [facility] [id number] GFR/1.73 sq M predicted among non-blacks CKD-EPI vol rate/area (S/P/Bld) 63 mL/min/1.73 Normal Comprehensive Internal Medicine Work Phone: Comment on above: PATIENT NOT FASTINGP ERFORMED BY: BRE Carlos Quintero6370 [facility] [id number] Globulin mass conc (S) 2.1 g/dL Normal 1.5-4.5 Comprehensive Internal Medicine Work Phone: Comment on above: PATIENT NOT FASTINGP ERFORMED BY: BRE Carlos Guajardolin6370 [facility] [id number] Glucose mass conc 78 mg/dL Normal 65-99 Compreh ensive Internal Medicine Work Phone: Comment on above: PATIENT NOT FASTINGP ERFORMED BY: BRE Carlos Guajardolin6370 [facility] [id number] Potassium molar conc 5.0 mmol/L Normal 3.5-5.2 Comp rehensive Internal Medicine Work Phone: Comment on above: PATIENT NOT FASTINGP ERFORMED BY: BRE Carlos Guajardolin6370 [facility] [id number] Protein mass conc 6.1 g/dL Normal 6.0-8.5 Compreh ensive Internal Medicine Work Phone: Comment on above: PATIENT NOT FASTINGP ERFORMED BY: BRE Carlos Guajardolin6370 [facility] [id number] Sodium molar conc 146 mmol/L Abnormal 134-144 Compreh ensive Internal Medicine Work Phone: Comment on above: PATIENT NOT FASTINGP ERFORMED BY: LabCoEssex County HospitalMpfqws7698 [facility] [id number] Urea nitrogen mass conc 8 mg/dL Normal 8-27 Comprehensive Internal Medicine Work Phone: Comment on above: PATIENT NOT FASTINGP ERFORMED BY: LabCoEssex County HospitalYfervb7921 [facility] [id number] Urea nitrogen/Creatinine mass ratio 8 mg/mg Abnormal 12-28 Comprehensive Internal Medicine Work Phone: Comment on above: PATIENT NOT FASTINGP ERFORMED BY: LabCoEssex County HospitalXapozg8272 [facility] [id number] Basic Metabolic Profile (BMP )Ordered By: Senior Media Director on 01-05-2017 Basic metabolic 2000 panel 26.0 mmol/L Normal 21.0-32.0 Comprehensive Internal Medicine Work Phone: Comment on above: [facility] spital [address] [place], [place], [address] Basic metabolic 2000 panel 76 mL/min Normal Comprehensive Internal Medicine Work Phone: Comment on above: GFR Calc [facility] Jrealsaghj[address] [place], [place], [address] Basic metabolic 2000 panel 63 mL/min Normal Comprehensive Internal Medicine Work Phone: Comment on above: Non- GFR Calc [facility] Nifomswyca[address] [place], [place], [address] Basic metabolic 2000 panel 104 mmol/L Normal 98-107 Comprehensive Internal Medicine Work Phone: Comment on above: [facility] spital Z[address]nn[address] [place], [place], [address] Basic metabolic 2000 panel 0.95 mg/dL Normal 0.55-1.02 Comprehensive Internal Medicine Work Phone: Comment on above: The validity of the calculated GFR AND GFRAA in patients over70 years has not been determined. Clinical correlation isessential. [facility] spital [address]zeit[address] [place], [address] Basic metabolic 2000 panel 9 1 Normal 5-15 Comprehensive Internal Medicine Work Phone: Comment on above: [facility] Yennpugsye[address] [place], [place], [address] Basic metabolic 2000 panel 13 mg/dL Normal 7-18 Comprehensive Internal Medicine Work Phone: Comment on above: [facility] Txpmphwuxl[address] [place], [place], [address] Basic metabolic 2000 panel 88 mg/dL Normal 70-110 Comprehensive Internal Medicine Work Phone: Comment on above: [facility] Kzrexnxfua[address] [place], [place], [address] Basic metabolic 2000 panel 4.0 mmol/L Normal 3.5-5.1 Comprehensive Internal Medicine Work Phone: Comment on above: Moderate Hemolysis, Result may be falsely increased. [facility] Yyomrwzdom[address] [place], [place], [address] Basic metabolic 2000 panel 9.0 mg/dL Normal 8.5-10.1 Comprehensive Internal Medicine Work Phone: Comment on above: [facility] Glkgfreywf[address] [place], [place], [address] Basic metabolic 2000 panel 139 mmol/L Normal 136-145 Comprehensive Internal Medicine Work Phone: Comment on above: [facility] Fomjvxoins[address] [place], [place], [address] Basic metabolic 2000 panel 56.65 ml/min Normal Comprehensive Internal Medicine Work Phone: Comment on above: [facility] Xrnxzzbefk[address] [place], [place], [address] Basic metabolic 2000 panel 13.7 {RATIO} Normal 10-20 Comprehensive Internal Medicine Work Phone: Comment on above: [facility] Egpgdaeolh[address] [place], [place], [address] CBC W/Diff, AutomatedOrdered By: Senior Media Director on 01-05-2017 CBC W/Diff, Automated 4.09 {M/mm3} Abnormal 4.2-5.4 C omprehensive Internal Medicine Work Phone: Comment on above: [facility] M[address]ftt[address] [place], [place], [address] CBC W/Diff, Automated 0.98 {X10_3/ul} Normal 0.83-4.51 Comprehensive Internal Medicine Work Phone: Comment on above: [facility] Xwvuazyfvi[address] [place], [place], [address] CBC W/Diff, Automated 293 K/mm3 Normal 150-450 Com prehensive Internal Medicine Work Phone: Comment on above: [facility] [address]rmf[address] [place], [place], [address] CBC W/Diff, Automated 0.000 % Normal 0.0-0.9 Com prehensive Internal Medicine Work Phone: Comment on above: IG% - Immature Granu locytes (promyelocytes, myelocytes andmetamyelocytes) > 1% indicates that a LEFT SHIFT is Present. [facility] [address] [place], [place], [phone] CBC W/Diff, Automated 0.3 % Normal 0-1 Com prehensive Internal Medicine Work Phone: Comment on above: [facility] [address] [place], [place], [id number] CBC W/Diff, Automated 0.8 % Normal 0-5 Com prehensive Internal Medicine Work Phone: Comment on above: [facility] [address] [place], [place], [phone] CBC W/Diff, Automated 9.8 % Normal 0-10 Com prehensive Internal Medicine Work Phone: Comment on above: [facility] [address] [place], [place], [phone] CBC W/Diff, Automated 12.3 % Abnormal 19-41 [facility] prehensive Internal Medicine Work Phone: Comment on above: [facility] [address] [place], [address] CBC W/Diff, Automated 76.8 % Abnormal 47-70 [facility] prehensive Internal Medicine Work Phone: Comment on above: [facility] [address] [place], [address] CBC W/Diff, Automated 9.8 fL Normal 6.2-12.0 [facility] prehensive Internal Medicine Work Phone: Comment on above: [facility] [address] [place], [address] CBC W/Diff, Automated 6.2 {X10_3/uL} Normal 2.0-7.7 [facility] Internal Medicine Work Phone: Comment on above: [facility] Y[address] [place], [address] CBC W/Diff, Automated 50.4 fL Abnormal 35.1-43.9 [facility] prehensive Internal Medicine Work Phone: Comment on above: [facility] J[address] [place], [address] CBC W/Diff, Automated 15.0 % Abnormal 11.6-14.6 [facility] prehensive Internal Medicine Work Phone: Comment on above: [facility] [address] [place], [address] CBC W/Diff, Automated 32.4 {g/gl} Normal 32-[address] [facility] Work Phone: Comment on above: [facility] [address] [place], [address] CBC W/Diff, Automated 30.1 pg Normal 27.0-32.0 [facility] prehensive Internal Medicine Work Phone: Comment on above: [facility] [address] [place], [place], [id number] CBC W/Diff, Automated 92.9 fL Normal 81-99 Com prehensive Internal Medicine Work Phone: Comment on above: [facility] [address] [place], [place], [phone] CBC W/Diff, Automated 38.0 % Normal 37-47 Com prehensive Internal Medicine Work Phone: Comment on above: [facility] X[address]iz[address] [place], [place], [phone] CBC W/Diff, Automated 12.3 g/dL Normal 12.0-15.0 Com prehensive Internal Medicine Work Phone: Comment on above: [facility] [address] [place], [place], [phone] CBC W/Diff, Automated 8.0 K/mm3 Normal 4.4-11.0 [facility] prehensive Internal Medicine Work Phone: Comment on above: [facility] [address] [place], [place], [phone] CBC W/Diff, AutomatedOrdered By: Senior Media Director on 10-18-2016 CBC W/Diff, Automated 1.41 {X10_3/ul} Normal 0.83-4.51 [facility] Work Phone: Comment on above: [facility] [address] [place], [place], [phone] CBC W/Diff, Automated 1.6 {X10_3/uL} Abnormal 2.0-7.7 [facility] Work Phone: Comment on above: [facility] [address] [place], [place], [phone] CBC W/Diff, Automated 0.000 % Normal 0.0-0.9 Com prehensive Internal Medicine Work Phone: Comment on above: IG% - Immature Granu locytes (promyelocytes, myelocytes andmetamyelocytes) > 1% indicates that a LEFT SHIFT is Present. [facility] [address] [place], [address] CBC W/Diff, Automated 1.4 % Abnormal 0-1 Com prehensive Internal Medicine Work Phone: Comment on above: [facility] [address] [place], [address] CBC W/Diff, Automated 5.3 % Abnormal 0-5 Com prehensive Internal Medicine Work Phone: Comment on above: [facility] [address] [place], [address] CBC W/Diff, Automated 10.6 % Abnormal 0-10 Com prehensive Internal Medicine Work Phone: Comment on above: [facility] [address] [place], [address] CBC W/Diff, Automated 39.4 % Normal 19-41 Com prehensive Internal Medicine Work Phone: Comment on above: [facility] [address] [place], [address] CBC W/Diff, Automated 43.3 % Abnormal 47-70 Com prehensive Internal Medicine Work Phone: Comment on above: [facility] [address] [place], [address] CBC W/Diff, Automated 10.5 fL Normal 6.2-12.0 Com prehensive Internal Medicine Work Phone: Comment on above: [facility] [address] [place], [address] CBC W/Diff, Automated 264 K/mm3 Normal 150-450 Com prehensive Internal Medicine Work Phone: Comment on above: [facility] [address] [place], [address] CBC W/Diff, Automated 49.9 fL Abnormal 35.1-43.9 [facility] prehensive Internal Medicine Work Phone: Comment on above: [facility] [address] [place], [address] CBC W/Diff, Automated 14.9 % Abnormal 11.6-14.6 [facility] prehensive Internal Medicine Work Phone: Comment on above: [facility] [address] [place], [address] CBC W/Diff, Automated 32.6 {g/gl} Normal 32-36 [facility] Work Phone: Comment on above: [facility] [address] [place], [address] CBC W/Diff, Automated 30.8 pg Normal 27.0-32.0 [facility] prehensive Internal Medicine Work Phone: Comment on above: [facility] [address] [place], [address] CBC W/Diff, Automated 94.6 fL Normal 81-99 [facility] prehensive Internal Medicine Work Phone: Comment on above: [facility] [address] [place], [address] CBC W/Diff, Automated 40.2 % Normal 37-47 [facility] prehensive Internal Medicine Work Phone: Comment on above: [facility] [address] [place], [address] CBC W/Diff, Automated 13.1 g/dL Normal 12.0-15.0 [facility] prehensive Internal Medicine Work Phone: Comment on above: [facility] [address] [place], [address] CBC W/Diff, Automated 4.25 {M/mm3} Normal 4.2-5.4 [facility] Work Phone: Comment on above: [facility] [address] [place], [place], [id number] CBC W/Diff, Automated 3.6 K/mm3 Abnormal 4.4-11.0 Com prehensive Internal Medicine Work Phone: Comment on above: [facility] [address] [place], [place], [phone] Comprehensive Metabolic Prof ilOrdered By: Senior Media Director on 10-18-2016 Comprehensive metabolic 2000 panel 14 mg/dL Normal 7-18 Comprehensi ve Internal Medicine Work Phone: Comment on above: [facility] [address] [place], [place], [phone] Comprehensive metabolic 2000 panel 80 mg/dL Normal 70-110 Comprehensi ve Internal Medicine Work Phone: Comment on above: [facility] [address] [place], [place], [phone] Comprehensive metabolic 2000 panel 141 mmol/L Normal 136-145 Comprehensi ve Internal Medicine Work Phone: Comment on above: [facility] [address] [place], [place], [phone] Comprehensive metabolic 2000 panel 14.7 {RATIO} Normal 10-20 Comprehensi ve Internal Medicine Work Phone: Comment on above: [facility] [address] [place], [place], [phone] Comprehensive metabolic 2000 panel 10 1 Normal 5-15 Comprehensi ve Internal Medicine Work Phone: Comment on above: [facility] [address] [place], [place], [phone] Comprehensive metabolic 2000 panel 26.0 mmol/L Normal 21.0-32.0 Comprehensi ve Internal Medicine Work Phone: Comment on above: [facility] [address] [place], [place], [phone] Comprehensive metabolic 2000 panel 62 mL/min Normal Comprehensi ve Internal Medicine Work Phone: Comment on above: Non- GFR Calc [facility] [address] [place], [address] Comprehensive metabolic 2000 panel 105 mmol/L Normal 98-107 Comprehensi ve Internal Medicine Work Phone: Comment on above: [facility] [address] [place], [address] Comprehensive metabolic 2000 panel 3.9 mmol/L Normal 3.5-5.1 Comprehensi ve Internal Medicine Work Phone: Comment on above: [facility] [address] [place], [address] Comprehensive metabolic 2000 panel 75 mL/min Normal Comprehensi ve Internal Medicine Work Phone: Comment on above: GFR Calc [facility] [address] [place], [address] Comprehensive metabolic 2000 panel 9.0 mg/dL Normal 8.5-10.1 Comprehensi ve Internal Medicine Work Phone: Comment on above: [facility] [address] [place], [place], [address] Comprehensive metabolic 2000 panel 0.40 mg/dL Normal 0.20-1.00 Comprehensi ve Internal Medicine Work Phone: Comment on above: [facility] [address] [place], [address] Comprehensive metabolic 2000 panel 27 U/L Normal 12-78 Comprehensi ve Internal Medicine Work Phone: Comment on above: [facility] [address] [place], [address] Comprehensive metabolic 2000 panel 70 U/L Normal 45-117 Comprehensi ve Internal Medicine Work Phone: Comment on above: [facility] [address]wuf[address] [place], [place], [id number] Comprehensive metabolic 2000 panel 7.1 g/dL Normal 6.4-8.2 Comprehensi ve Internal Medicine Work Phone: Comment on above: [facility] [address] [place], [place], [address] Comprehensive metabolic 2000 panel 24 U/L Normal 15-37 Comprehensi ve Internal Medicine Work Phone: Comment on above: [facility] Y[address] [place], [place], [phone] Comprehensive metabolic 2000 panel 0.95 mg/dL Normal 0.55-1.02 Comprehensi ve Internal Medicine Work Phone: Comment on above: The validity of the calculated GFR AND GFRAA in patients over70 years has not been determined. Clinical correlation isessential. [facility] [place], [place], [phone] Comprehensive metabolic 2000 panel 1.2 {RATIO} Normal 0.9-2.4 Comprehensi ve Internal Medicine Work Phone: Comment on above: [facility] [place], [place], [id number] Comprehensive metabolic 2000 panel 3.9 g/dL Normal 3.4-5.0 Comprehensi ve Internal Medicine Work Phone: Comment on above: [facility] [place], [place], [phone] Comprehensive metabolic 2000 panel 3.2 g/dL Normal 2.3-3.5 Comprehensi ve Internal Medicine Work Phone: Comment on above: [facility] [address] [place], [place], [phone] Free N8Ycbkkam By: Bharath cardenas on 10-18-2016 T3 free mass conc 2.3 pg/mL Normal 2.18-3.98 Compreh ensive Internal Medicine Work Phone: Comment on above: [facility] [address] [place], [place], [phone] Lipid ProfileOrdered By: Elif tem Webbing Weaver on 10-18-2016 Lipid Profile 21 mg/dL Normal 5-40 Comprehensi ve Internal Medicine Work Phone: Comment on above: [facility] [address] [place], [place], [id number] Lipid Profile 117 mg/dL Normal 0-130 Comprehensi ve Internal Medicine Work Phone: Comment on above: [facility] [address] [place], [place], [phone] Lipid Profile 98 mg/dL Normal Comprehensi ve Internal Medicine Work Phone: Comment on above: The drugs N-Acetylcy steine and Metamizole may falsely deressthis assay. Reference Range HDL <40 mg/dL Low HDL Cholesterol HDL >or= 60 mg/dL High HDL Cholesterol [place] [address] [place], [place], [phone] Lipid Profile 103 mg/dL Normal Comprehensi ve Internal Medicine Work Phone: Comment on above: The drugs N-Acetylcy steine and Metamizole may falsely deressthis assay.Serum Triglycerides Reference Interval Normal <150 mg/dL Borderline high 150 - 199 mg/dL High 200 - 499 mg/dL Very High > or = 500 mg/dL [facility] [address] [place], [place], [id number] Lipid Profile 236 mg/dL Abnormal Comprehensi ve Internal Medicine Work Phone: Comment on above: <200 mg/dL Desirable 200-240 mg/dL Borderline >240 mg/dL High Risk [facility] [address] [place], [place], [id number] MagnesiumOrdered By: Senior Media Director on 10-18-2016 Magnesium mass conc 2.1 mg/dL Normal 1.8-2.4 Compr ehensive Internal Medicine Work Phone: Comment on above: [facility] [address] [place], [place], [phone] MicroalbOrdered By: Bharath brambila on 10-18-2016 Microalb 24.3 {mg/g_CRE} Normal Comprehen sive Internal Medicine Work Phone: Comment on above: [facility] [address] [place], [place], [phone] Microalb 22.3 mg/L Normal [facility] Work Phone: Comment on above: [facility] [address] [place], [place], [address] Microalb 91.70 mg/dL Normal [facility] Work Phone: Comment on above: [facility] [address] [place], [address] T4 Free DirectOrdered By: Sy stem Webbing Weaver on 10-18-2016 T4 free mass conc 0.83 ng/dL Normal 0.76-1.46 Compreh ensive Internal Medicine Work Phone: Comment on above: [facility] [address] [place], [address] Thyroid Stim Hormone (TSH)Or dered By: Senior Media Director on 10-18-2016 Thyrotropin Qn 1.17 {uIU/mL} Normal 0.358-3.74 Compreh ensive Internal Medicine Work Phone: Comment on above: [facility] [address] [place], [address] Urinalysis, CompleteOrdered By: Senior Media Director on 10-18-2016 Protein mass conc (U) 30 mg/dL Abnormal Com prehensive Internal Medicine Work Phone: Comment on above: How was Urine Obtain ed? [facility] [address] [place], [place], [id number] RBC #/vol (U) 0 SEEN Normal 0-5 Comprehensi ve Internal Medicine Work Phone: Comment on above: How was Urine Obtain ed? [facility] [address] [place], [address] Urinalysis complete panel - Urine Negative Normal Comprehensive Internal Medicine Work Phone: Comment on above: How was Urine Obtain ed? [facility] [address] [place], [address] Urinalysis complete panel - Urine 0 SEEN Normal 5-10 [facility] Work Phone: Comment on above: How was Urine Obtain ed? [facility] [address] [place], [address] Urinalysis complete panel - Urine 1+ Normal [facility] Internal Medicine Work Phone: Comment on above: How was Urine Obtain ed? [facility] [address] [place], [address] Urinalysis complete panel - Urine 0-5 SEEN Normal 0-5 [facility] Work Phone: Comment on above: How was Urine Obtain ed? [facility] [address]baum[address] [place], [address] Urinalysis complete panel - Urine 100 /ul Abnormal [facility] Medicine Work Phone: Comment on above: How was Urine Obtain ed? [facility] [address] [place], [address] Urinalysis complete panel - Urine Normal Normal [facility] Medicine Work Phone: Comment on above: How was Urine Obtain ed? [facility] [address]unvv[address] [place], [address] Urinalysis complete panel - Urine 8.0 1 Normal 5.0 - 8.0 [facility] Work Phone: Comment on above: How was Urine Obtain ed? [facility] [address] [place], [phone] Urinalysis complete panel - Urine 1.015 1 Normal 1.002-1.03 0 [facility] Work Phone: Comment on above: How was Urine Obtain ed? [facility] [address] [place], [phone] Urinalysis complete panel - Urine Sl. Cloudy Normal [facility] Medicine Work Phone: Comment on above: How was Urine Obtain ed? [facility] [address]chbma[address] [place], [address] Urinalysis complete panel - Urine Yellow Normal [facility] Medicine Work Phone: Comment on above: How was Urine Obtain ed? [facility] [address] [place], [place], [phone] Vitamin D,25 HydroxyOrdered By: Senior Media Director on 10-18-2016 Vitamin D,25 Hydroxy 47.3 ng/mL Normal Comp rehensive Internal Medicine Work Phone: Comment on above: Vitamin D 25(OH) Sta tus Range Deficiency <20 ng/mL (50nmol/L) Insuffciency 20 - 30 ng/mL (50 - 75 nmol/L) Sufficiency 30 - 100 ng/mL (75 - 250 nmol/L) Toxicity >100 ng/mL (>250 nmol/L) [facility] [address] [place], [address] CBC W/Diff, AutomatedOrdered By: Senior Media Director on 09-11-2016 CBC W/Diff, Automated 0.9 % Normal 0-1 [facility] prehensive Internal Medicine Work Phone: Comment on above: Order Date: 09/02/16 OV Order #: [id number] [facility] [address]xc[address] [place], [address] CBC W/Diff, Automated 29.5 pg Normal 27.0-32.0 [facility] prehensive Internal Medicine Work Phone: Comment on above: Order Date: 09/02/16 OV Order #: [id number] [place] [address] [address] [place], [place], [address] CBC W/Diff, Automated 2.8 % Normal 0-5 Com prehensive Internal Medicine Work Phone: Comment on above: Order Date: 09/02/16 OV Order #: [id number] [place] [address] [address] [place], [place], [address] CBC W/Diff, Automated 1.69 {X10_3/ul} Normal 0.83-4.51 [facility] Internal Medicine Work Phone: Comment on above: Order Date: 09/02/16 OV Order #: [id number] [facility] [address]thc[address] [place], [place], [address] CBC W/Diff, Automated 0.200 % Normal 0.0-0.9 [facility] prehensive Internal Medicine Work Phone: Comment on above: IG% - Immature Granu locytes (promyelocytes, myelocytes andmetamyelocytes) > 1% indicates that a LEFT SHIFT is Present. Order Date: 09/02/16 OV Order #: [id number] [place] [address] [address] [place], [address] CBC W/Diff, Automated 4.6 K/mm3 Normal 4.4-11.0 [facility] prehensive Internal Medicine Work Phone: Comment on above: Order Date: 09/02/16 OV Order #: [id number] [place] [address] [address] [place], [place], [address] CBC W/Diff, Automated 4.34 {M/mm3} Normal 4.2-5.4 C omprehensive Internal Medicine Work Phone: Comment on above: Order Date: 09/02/16 OV Order #: [id number] [facility] [address]im[address] [place], [address] CBC W/Diff, Automated 10.1 % Abnormal 0-10 Com prehensive Internal Medicine Work Phone: Comment on above: Order Date: 09/02/16 OV Order #: [id number] [place] [address] [place], [address] CBC W/Diff, Automated 37.0 % Normal 19-41 Com prehensive Internal Medicine Work Phone: Comment on above: Order Date: 09/02/16 OV Order #: [id number] [place] [address] [place], [address] CBC W/Diff, Automated 49.0 % Normal 47-70 Com prehensive Internal Medicine Work Phone: Comment on above: Order Date: 09/02/16 OV Order #: [id number] [place] [address] [place], [address] CBC W/Diff, Automated 10.1 fL Normal 6.2-12.0 Com prehensive Internal Medicine Work Phone: Comment on above: Order Date: 09/02/16 OV Order #: [id number] [place] [address] [place], [address] CBC W/Diff, Automated 281 K/mm3 Normal 150-450 Com prehensive Internal Medicine Work Phone: Comment on above: Order Date: 09/02/16 OV Order #: [id number] [place] [address] [place], [address] CBC W/Diff, Automated 47.7 fL Abnormal 35.1-43.9 Com prehensive Internal Medicine Work Phone: Comment on above: Order Date: 09/02/16 OV Order #: [id number] [facility] [address]ddlxt[address] [place], [place], [phone] CBC W/Diff, Automated 14.0 % Normal 11.6-14.6 Com prehensive Internal Medicine Work Phone: Comment on above: Order Date: 09/02/16 OV Order #: [id number] [place] [address] [place], [place], [phone] CBC W/Diff, Automated 31.8 {g/gl} Abnormal 32-36 [facility] Work Phone: Comment on above: Order Date: 09/02/16 OV Order #: [id number] Grove [facility] Hospital [address]qs[address] [place], [place], [phone] CBC W/Diff, Automated 2.2 {X10_3/uL} Normal 2.0-7.7 [facility] Work Phone: Comment on above: Order Date: 09/02/16 OV Order #: [id number] [place] [address] [place], [place], [phone] CBC W/Diff, Automated 92.9 fL Normal 81-99 [facility] prehensive Internal Medicine Work Phone: Comment on above: Order Date: 09/02/16 OV Order #: [id number] [place] [address] [place], [place], [phone] CBC W/Diff, Automated 40.3 % Normal 37-47 Com prehensive Internal Medicine Work Phone: Comment on above: Order Date: 09/02/16 OV Order #: [id number] [facility] Hospital [address]aehtr[address] [place], [place], [phone] CBC W/Diff, Automated 12.8 g/dL Normal 12.0-15.0 [facility] prehensive Internal Medicine Work Phone: Comment on above: Order Date: 09/02/16 OV Order #: [id number] [place] [address] [address], [address] Comprehensive Metabolic Prof ilOrdered By: Senior Media Director on 09-11-2016 Comprehensive metabolic 2000 panel 57 mL/min Abnormal Comprehensi ve Internal Medicine Work Phone: Comment on above: Non- GFR Calc Order Date: 09/02/16 OV Order #: [id number] Specimen #1, #2 or #3? [id number] [place] [address] [place], [address] Comprehensive metabolic 2000 panel 1.2 {RATIO} Normal 0.9-2.4 Comprehensi ve Internal Medicine Work Phone: Comment on above: Order Date: 09/02/16 OV Order #: [id number] Specimen #1, #2 or #3? [id number] [place] [address] [place], [place], [address] Comprehensive metabolic 2000 panel 140 mmol/L Normal 136-145 Comprehensi ve Internal Medicine Work Phone: Comment on above: Order Date: 09/02/16 OV Order #: [id number] Specimen #1, #2 or #3? [address] [place] [address] [place], [place], [address] Comprehensive metabolic 2000 panel 0.20 mg/dL Normal 0.20-1.00 Comprehensi ve Internal Medicine Work Phone: Comment on above: Order Date: 09/02/16 OV Order #: [id number] Specimen #1, #2 or #3? [address] [place] [address] [place], [place], [address] Comprehensive metabolic 2000 panel 70 U/L Normal 45-117 Comprehensi ve Internal Medicine Work Phone: Comment on above: Order Date: 09/02/16 OV Order #: [id number] Specimen #1, #2 or #3? [address] [place] [address] [place], [place], [address] Comprehensive metabolic 2000 panel 26.0 mmol/L Normal 21.0-32.0 Comprehensi ve Internal Medicine Work Phone: Comment on above: Order Date: 09/02/16 OV Order #: [id number] Specimen #1, #2 or #3? [address] [place] [address] [place], [place], [address] Comprehensive metabolic 2000 panel 22 U/L Normal 15-37 Comprehensi ve Internal Medicine Work Phone: Comment on above: Order Date: 09/02/16 OV Order #: [id number] Specimen #1, #2 or #3? [address] [place] [address] [place], [place], [address] Comprehensive metabolic 2000 panel 1.03 mg/dL Abnormal 0.55-1.02 Comprehensi ve Internal Medicine Work Phone: Comment on above: The validity of the calculated GFR AND GFRAA in patients over70 years has not been determined. Clinical correlation isessential. Order Date: 09/02/16 OV Order #: [id number] Specimen #1, #2 or #3? [address] [place] [address] [place], [address] Comprehensive metabolic 2000 panel 24 U/L Normal 12-78 Comprehensi ve Internal Medicine Work Phone: Comment on above: Order Date: 09/02/16 OV Order #: [id number] Specimen #1, #2 or #3? [address] [place] [address] [place], [place], [address] Comprehensive metabolic 2000 panel 9 1 Normal 5-15 Comprehensi ve Internal Medicine Work Phone: Comment on above: Order Date: 09/02/16 OV Order #: [id number] Specimen #1, #2 or #3? [address] [place] [address] [place], [place], [id number] Comprehensive metabolic 2000 panel 20.4 {RATIO} Abnormal 10-20 Comprehensi ve Internal Medicine Work Phone: Comment on above: Order Date: 09/02/16 OV Order #: [id number] Specimen #1, #2 or #3? [address] [place] [address] [place], [place], [address] Comprehensive metabolic 2000 panel 69 mL/min Normal Comprehensi ve Internal Medicine Work Phone: Comment on above: GFR Calc Order Date: 09/02/16 OV Order #: [id number] Specimen #1, #2 or #3? [address] [place] [address] [place], [place], [address]671 Comprehensive metabolic 2000 panel 21 mg/dL Abnormal 7-18 Comprehensi ve Internal Medicine Work Phone: Comment on above: Order Date: 09/02/16 OV Order #: [id number] Specimen #1, #2 or #3? [address] [place] [address] [place], [place], [address] Comprehensive metabolic 2000 panel 87 mg/dL Normal 70-110 Comprehensi ve Internal Medicine Work Phone: Comment on above: Order Date: 09/02/16 OV Order #: [id number] Specimen #1, #2 or #3? [address] [place] [address] [place], [place], [address]361 Comprehensive metabolic 2000 panel 4.1 mmol/L Normal 3.5-5.1 Comprehensi ve Internal Medicine Work Phone: Comment on above: Order Date: 09/02/16 OV Order #: [id number] Specimen #1, #2 or #3? [address] [place] [address] [place], [address] Comprehensive metabolic 2000 panel 3.3 g/dL Normal 2.3-3.5 Comprehensi ve Internal Medicine Work Phone: Comment on above: Order Date: 09/02/16 OV Order #: [id number] Specimen #1, #2 or #3? [address] [place] [address] [place], [place], [address]641 Comprehensive metabolic 2000 panel 4.0 g/dL Normal 3.4-5.0 Comprehensi ve Internal Medicine Work Phone: Comment on above: Order Date: 09/02/16 OV Order #: [id number] Specimen #1, #2 or #3? [address] [place] [address] [place], [place], [address] Comprehensive metabolic 2000 panel 8.8 mg/dL Normal 8.5-10.1 Comprehensi ve Internal Medicine Work Phone: Comment on above: Order Date: 09/02/16 OV Order #: [id number] Specimen #1, #2 or #3? [address] [place] [address] [place], [address] Comprehensive metabolic 2000 panel 105 mmol/L Normal 98-107 Comprehensi ve Internal Medicine Work Phone: Comment on above: Order Date: 09/02/16 OV Order #: [id number] Specimen #1, #2 or #3? [address] [place] [address] [place], [place], [address]61 Comprehensive metabolic 2000 panel 7.3 g/dL Normal 6.4-8.2 Comprehensi ve Internal Medicine Work Phone: Comment on above: Order Date: 09/02/16 OV Order #: [id number] Specimen #1, #2 or #3? [id number] [place] [address] [address] [place], [place], [address] LDHOrdered By: System Manage r on 09-11-2016 LDH enzyme act/vol 212 U/L Normal 84-246 Compre [facility] Internal Medicine Work Phone: Comment on above: Order Date: 09/02/16 OV Order #: [id number] Specimen #1, #2 or #3? [id number] [place] [address] [address] [place], [place], [address] Uric AcidOrdered By: Senior Media Director on 09-11-2016 Urate mass conc 3.0 mg/dL Normal 2.6-6.[address] [facility] Internal Medicine Work Phone: Comment on above: The drugs N-Acetylcy steine and Metamizole may falsely deressthis assay. Order Date: 09/02/16 OV Order #: [id number] Specimen #1, #2 or #3? [id number] [place] [address] [address] [place], [place], [address] Fecal Occult Blood , Office ([id number])Ordered By: Oziel Wright on 06-06-2016 Hemoglobin.gastrointe stinal Ql (St) Negative Normal Comprehensive Internal Medicine Work Phone: Lipid ProfileOrdered By: Elif tem Webbing Weaver on 05-17-2016 Lipid Profile 67 mg/dL Normal Comprehensi ve Internal Medicine Work Phone: Comment on above: The drugs N-Acetylcy steine and Metamizole may falsely deressthis assay. Reference Range HDL <40 mg/dL Low HDL Cholesterol HDL >or= 60 mg/dL High HDL Cholesterol [facility] [address] [place], [place], [id number] Lipid Profile 24 mg/dL Normal 5-40 Comprehensi ve Internal Medicine Work Phone: Comment on above: [facility] [address] [place], [place], [id number] Lipid Profile 113 mg/dL Normal 0-130 Comprehensi ve Internal Medicine Work Phone: Comment on above: [facility] [address] [place], [place], [address] Lipid Profile 122 mg/dL Normal Comprehensi ve Internal Medicine Work Phone: Comment on above: The drugs N-Acetylcy steine and Metamizole may falsely deressthis assay.Serum Triglycerides Reference Interval Normal <150 mg/dL Borderline high 150 - 199 mg/dL High 200 - 499 mg/dL Very High > or = 500 mg/dL [facility] [address] [place], [address] Lipid Profile 204 mg/dL Abnormal Comprehensi ve Internal Medicine Work Phone: Comment on above: <200 mg/dL Desirable 200-240 mg/dL Borderline >240 mg/dL High Risk [facility] [address] [place], [address] Liver ProfileOrdered By: Elif tem Webbing Weaver on 05-17-2016 Albumin mass conc 3.6 g/dL Normal 3.4-5.0 Compreh ensive Internal Medicine Work Phone: Comment on above: [facility] [address] [place], [place], [address] ALP enzyme act/vol 70 U/L Normal 50-136 Compre hensive Internal Medicine Work Phone: Comment on above: [facility] [address] [place], [address] ALT enzyme act/vol 27 U/L Normal 12-78 Compre hensive Internal Medicine Work Phone: Comment on above: [facility] [address] [place], [place], [address] AST enzyme act/vol 23 U/L Normal 15-37 Compre [facility] Internal Medicine Work Phone: Comment on above: [facility] [address] [place], [id number] Bilirubin mass conc 0.40 mg/dL Normal 0.20-1.00 Compr ensive Internal Medicine Work Phone: Comment on above: [facility] [address] [place], [id number] Bilirubin.direct mass conc 0.11 mg/dL Normal 0.00-0.30 Comprehensive Internal Medicine Work Phone: Comment on above: [facility] [address] [place], [id number] Globulin mass conc (S) 3.2 g/dL Normal 2.3-3.5 Comprehensive Internal Medicine Work Phone: Comment on above: [facility] [address] [place], [address] Protein mass conc 6.8 g/dL Normal 6.4-8.2 [facility] Internal Medicine Work Phone: Comment on above: [facility] [address] [place], [address] Vitamin D,25 HydroxyOrdered By: Senior Media Director on 05-17-2016 Vitamin D,25 Hydroxy 55.3 ng/mL Normal [facility] Internal Medicine Work Phone: Comment on above: Vitamin D 25(OH) Sta tus Range Deficiency <20 ng/mL (50nmol/L) Insuffciency 20 - 30 ng/mL (50 - 75 nmol/L) Sufficiency 30 - 100 ng/mL (75 - 250 nmol/L) Toxicity >100 ng/mL (>250 nmol/L) [facility] [address] [place], [id number] CBC W/Diff, Auto - EPLAB Onl yOrdered By: Senior Media Director on 03-05-2016 Basophils/100 WBC (Bld) 1.0 % Normal 0-1 Comprehensive Internal Medicine Work Phone: Comment on above: At [facility] Outpatient [facility] Medical Oncologypatients receive CBC w/auto Differential ONLY. Physicianwill place an order for a manual differential or Pathologistreview at his discretion. [facility]. [address] [place] [address] [address] CAR PINCHER: MAGNOLIA HOLLY DO PH:[phone] Grove City Methodist Hospital [address] [place], [place], [address] ; managed by clarke nielson CBC W Auto Differential panel - Blood 2.7 {X10_3/uL} Normal 2.0-7.7 Comprehensive Internal Medicine Work Phone: Comment on above: At [facility] Outpatient [facility] Medical Oncologypatients receive CBC w/auto Differential ONLY. Physicianwill place an order for a manual differential or Pathologistreview at his discretion. [facility]. [address] [place] [address] [address] CAR PINCHER: MAGNOLIA HOLLY DO PH:[phone] Grove City Methodist Hospital [address] [place], [place], [phone] ; managed by clarke nielson Eosinophils/100 WBC (Bld) 1.5 % Normal 0-5 Comprehensive Internal Medicine Work Phone: Comment on above: At [facility] Outpatient [facility] Medical Oncologypatients receive CBC w/auto Differential ONLY. Physicianwill place an order for a manual differential or Pathologistreview at his discretion. [facility]. [address] [place] [address] [address] CAR PINCHER: MAGNOLIA HOLLY DO PH:[phone] Grove City Methodist Hospital [address] [place], [place], [phone] ; managed by clarke nielson Erythrocyte distribution width Ratio (RBC) 13.4 % Normal 11.6-14.6 Comprehensive Internal Medicine Work Phone: Comment on above: At [facility] Medical Oncologypatients receive CBC w/auto Differential ONLY. Physicianwill place an order for a manual differential or Pathologistreview at his discretion. [facility]. [address] [place] [address] [address] CAR PINCHER: MAGNOLIA HOLLY DO PH:[phone] Grove City Methodist Hospital [address] [place], [place], [id number] ; managed by clarke nileson Hematocrit Volume Fraction (Bld) 39.3 % Normal 37-47 Comprehensive Internal Medicine Work Phone: Comment on above: At [facility] Outpatient [facility] Medical Oncologypatients receive CBC w/auto Differential ONLY. Physicianwirobinson place an order for a manual differential or Pathologistreview at his discretion. [facility]. [address] [place] [address] [address] CAR PINCHER: MAGNOLIA HOLLY DO PH:[phone] Grove City Methodist Hospital [address] [place], [place], [phone] ; managed by clarke nielson Hemoglobin mass conc (Bld) 12.9 g/dL Normal 12.0-15.0 Comprehensive Internal Medicine Work Phone: Comment on above: At [facility] Outpatient [facility] Medical Oncologypatients receive CBC w/auto Differential ONLY. Physicianwirobinson place an order for a manual differential or Pathologistreview at his discretion. [facility]. [address] [place] [address] [address] CAR PINCHER: MAGNOLIA HOLLY DO PH:[phone] Grove City Methodist Hospital [address] [place], [place], [id number] ; managed by clarke nielson Lymphocytes #/vol (Bld) 1.27 {X10_3/uL} Normal 0.83-4.51 Comprehensive Internal Medicine Work Phone: Comment on above: At [facility] Outpatient [facility] Medical Oncologypatients receive CBC w/auto Differential ONLY. Physicianwill place an order for a manual differential or Pathologistreview at his discretion. [facility]. [address] [place] [address] [address] CAR PINCHER: MAGNOLIA HOLLY DO PH:[phone] Grove City Methodist Hospital [address] [place], [place], [address] ; managed by clarke nielson Lymphocytes/100 WBC (Bld) 27.4 % Normal 19-41 Comprehensive Internal Medicine Work Phone: Comment on above: At [facility] Outpatient [facility] Medical Oncologypatients receive CBC w/auto Differential ONLY. Physicianwill place an order for a manual differential or Pathologistreview at his discretion. [facility]. [address] [place] [address] [address] CAR PINCHER: MAGNOLIA HOLLY DO PH:[phone] Grove City Methodist Hospital [address] [place], [place], [phone] ; managed by clarke nielson [facility] Entitic mass (RBC) 30.9 pg Normal 27.0-32.0 Comprehensive Internal Medicine Work Phone: Comment on above: At [facility] Outpatient [facility] Medical Oncologypatients receive CBC w/auto Differential ONLY. Physicianwill place an order for a manual differential or Pathologistreview at his discretion. [facility]. [address] [place] [address] [address] CAR PINCHER: MAGNOLIA HOLLY DO PH:[phone] Grove City [facility] Hospital [address]kjsod[address] [place], [place], [phone] ; managed by clarke nielson [facility] mass conc (RBC) 32.9 g/dL Normal 32-36 [facility] Internal Medicine Work Phone: Comment on above: At [facility] Outpatient [facility] Medical Oncologypatients receive CBC w/auto Differential ONLY. Physicianwill place an order for a manual differential or Pathologistreview at his discretion. [facility]. [address] [place] [address] [address] CAR PINCHER: MAGNOLIA HOLLY DO PH:[phone] Grove City Methodist Hospital [address] [place], [place], [phone] ; managed by clarke nielson MCV Entitic volume (RBC) 94.1 fL Normal 81-99 Comprehensive Internal Medicine Work Phone: Comment on above: At [facility] Outpatient [facility] [place] Medical Oncologypatients receive CBC w/auto Differential ONLY. Physicianwill place an order for a manual differential or Pathologistreview at his discretion. [facility]. [address] [place] [address] [address] CAR PINCHER: MAGNOLIA HOLLY DO PH:[phone] Grove City Methodist Hospital [address] [place], [place], [address] ; managed by clarke nielson Monocytes/100 WBC (Bld) 12.6 % Abnormal 0-10 Comprehensive Internal Medicine Work Phone: Comment on above: At [facility] Outpatient [facility] Medical Oncologypatients receive CBC w/auto Differential ONLY. Physicianwill place an order for a manual differential or Pathologistreview at his discretion. [facility]. [address] [place] [address] [address] CAR PINCHER: MAGNOLIA HOLLY DO PH:[phone] Grove City Methodist Hospital [address] [place], [place], [address] ; managed by clarke nielson Neutrophils/100 WBC (Bld) 57.5 % Normal 47-70 [facility] Internal Medicine Work Phone: Comment on above: At [facility] Outpatient [facility] [place] Medical Oncologypatients receive CBC w/auto Differential ONLY. Physicianwill place an order for a manual differential or Pathologistreview at his discretion. [facility]. [address] [place] [address] [address] CAR PINCHER: MAGNOLIA HOLLY DO PH:[phone] Grove City Methodist Hospital [address] [place], [place], [phone] ; managed by clarke nielson Platelet mean volume Entitic volume (Bld) 6.0 fL Abnormal 6.2-12.0 Comprehensi Internal Medicine Work Phone: Comment on above: At [facility] Outpatient [facility] Medical Oncologypatients receive CBC w/auto Differential ONLY. Physicianwill place an order for a manual differential or Pathologistreview at his discretion. [facility]. [address] [place] [address] [address] CAR PINCHER: MAGNOLIA HOLLY DO PH:[phone] Grove City Methodist Hospital [address] [place], [address] ; managed by clarke nielson Platelets #/vol (Bld) 259 10*3/uL Normal 150-450 Co mprehensive Internal Medicine Work Phone: Comment on above: At [facility] Outpatient [facility] Medical Oncologypatients receive CBC w/auto Differential ONLY. Physicianwill place an order for a manual differential or Pathologistreview at his discretion. [facility]. [address] [place] [address] [address] CAR PINCHER: MAGNOLIA HOLLY DO PH:[phone] Grove City Methodist Hospital [address] [place], [address] ; managed by clarke nielson RBC #/vol (Bld) 4.18 {M/mm3} Abnormal 4.2-5.4 Compreh ensive Internal Medicine Work Phone: Comment on above: At [facility] Outpatient [facility] Medical Oncologypatients receive CBC w/auto Differential ONLY. Physicianwill place an order for a manual differential or Pathologistreview at his discretion. [facility]. [address] [place] [address] [address] CAR PINCHER: MAGNOLIA HOLLY DO PH:[phone] Grove City Methodist Hospital [address] [place], [place], [id number] ; managed by clarke nielson WBC #/vol (Bld) 4.6 10*3/uL Normal 4.4-11.0 Comprehe nsive Internal Medicine Work Phone: Comment on above: At [facility] Outpatient [facility] Medical Oncologypatients receive CBC w/auto Differential ONLY. Physicianwill place an order for a manual differential or Pathologistreview at his discretion. [facility]. [address] [place] [address] [address] CAR PINCHER: MAGNOLIA HOLLY DO PH:[phone] Grove City Methodist Hospital [address] [place], [place], [phone] ; managed by [facility] ilOrdered By: Senior Media Director on 03-05-2016 Comprehensive metabolic 2000 panel 7 1 Normal 5-15 Comprehensi ve Internal Medicine Work Phone: Comment on above: Serial Specimen #1, #2 or #3? [address] [place] [address] [place], [address] Comprehensive metabolic 2000 panel 53 mL/min Abnormal Comprehensi ve Internal Medicine Work Phone: Comment on above: Non- GFR Calc Serial Specimen #1, #2 or #3? [address] [place] [address] [place], [address] Comprehensive metabolic 2000 panel 103 mmol/L Normal 98-107 Comprehensi ve Internal Medicine Work Phone: Comment on above: Serial Specimen #1, #2 or #3? [address] [place] [address] [place], [address] Comprehensive metabolic 2000 panel 1.10 mg/dL Normal 0.55-1.20 Comprehensi ve Internal Medicine Work Phone: Comment on above: The validity of the calculated GFR AND GFRAA in patients over70 years has not been determined. Clinical correlation isessential. Serial Specimen #1, #2 or #3? [address] [place] [address] [place], [address] Comprehensive metabolic 2000 panel 30.0 mmol/L Normal 21.0-32.0 Comprehensi ve Internal Medicine Work Phone: Comment on above: Serial Specimen #1, #2 or #3? [address] [place] [address] [place], [place], [id number] Comprehensive metabolic 2000 panel 4.1 mmol/L Normal 3.5-5.1 Comprehensi ve Internal Medicine Work Phone: Comment on above: Serial Specimen #1, #2 or #3? [address] [place] [address] [place], [place], [id number] Comprehensive metabolic 2000 panel 140 mmol/L Normal 136-145 Comprehensi ve Internal Medicine Work Phone: Comment on above: Serial Specimen #1, #2 or #3? [address] [place] [address] [place], [place], [address] Comprehensive metabolic 2000 panel 0.40 mg/dL Normal 0.20-1.00 Comprehensi ve Internal Medicine Work Phone: Comment on above: Serial Specimen #1, #2 or #3? [address] [place] [address] [place], [address] Comprehensive metabolic 2000 panel 27 U/L Normal 12-78 Comprehensi ve Internal Medicine Work Phone: Comment on above: Serial Specimen #1, #2 or #3? [address] [place] [address] [place], [address] Comprehensive metabolic 2000 panel 63 U/L Normal 50-136 Comprehensi ve Internal Medicine Work Phone: Comment on above: Serial Specimen #1, #2 or #3? [address] [place] [address] [place], [address] Comprehensive metabolic 2000 panel 23 U/L Normal 15-37 Comprehensi ve Internal Medicine Work Phone: Comment on above: Serial Specimen #1, #2 or #3? [address] [place] [address] [place], [place], [address] Comprehensive metabolic 2000 panel 9.0 mg/dL Normal 8.5-10.1 Comprehensi ve Internal Medicine Work Phone: Comment on above: Serial Specimen #1, #2 or #3? [address] [place] [address] [place], [place], [id number] Comprehensive metabolic 2000 panel 1.2 {RATIO} Normal 0.9-2.4 Comprehensi ve Internal Medicine Work Phone: Comment on above: Serial Specimen #1, #2 or #3? [address] [place] [address] [place], [place], [address] Comprehensive metabolic 2000 panel 3.2 g/dL Normal 2.3-3.5 Comprehensi ve Internal Medicine Work Phone: Comment on above: Serial Specimen #1, #2 or #3? [address] [place] [address] [place], [place], [address] Comprehensive metabolic 2000 panel 3.7 g/dL Normal 3.4-5.0 Comprehensi ve Internal Medicine Work Phone: Comment on above: Serial Specimen #1, #2 or #3? [address] [place] [address] [place], [place], [id number] Comprehensive metabolic 2000 panel 6.9 g/dL Normal 6.4-8.2 Comprehensi ve Internal Medicine Work Phone: Comment on above: Serial Specimen #1, #2 or #3? [address] [place] [address] [place], [place], [phone] Comprehensive metabolic 2000 panel 14.5 {RATIO} Normal 10-20 Comprehensi ve Internal Medicine Work Phone: Comment on above: Serial Specimen #1, #2 or #3? [address] [place] [address] [place], [place], [address] Comprehensive metabolic 2000 panel 89 mg/dL Normal 70-110 Comprehensi ve Internal Medicine Work Phone: Comment on above: Serial Specimen #1, #2 or #3? [address] [place] [address] [place], [place], [address] Comprehensive metabolic 2000 panel 16 mg/dL Normal 7-18 Comprehensi ve Internal Medicine Work Phone: Comment on above: Serial Specimen #1, #2 or #3? [address] [place] [address] [place], [place], [address] Comprehensive metabolic 2000 panel 64 mL/min Normal Comprehensi ve Internal Medicine Work Phone: Comment on above: GFR Calc Serial Specimen #1, #2 or #3? [address] [place] [address] [place], [place], [address] LDHOrdered By: System Manage r on 03-05-2016 LDH enzyme act/vol 205 U/L Normal 84-246 [facility] Internal Medicine Work Phone: Comment on above: Serial Specimen #1, #2 or #3? [address] [place] [address] [place], [place], [address] Uric AcidOrdered By: Senior Media Director on 03-05-2016 Urate mass conc 3.2 mg/dL Normal 2.6-6.0 [facility] Internal Medicine Work Phone: Comment on above: The drugs N-Acetylcy steine and Metamizole may falsely deressthis assay. Serial Specimen #1, #2 or #3? [address] [place] [address] [place], [place], [address] CBC W/Diff, AutomatedOrdered By: Senior Media Director on 02-09-2016 CBC W/Diff, Automated SLIDE SCANNED Normal Comprehensive Internal Medicine Work Phone: Comment on above: [facility] [address] [place], [place], [phone] CBC W/Diff, Automated 0.8 % Normal 0-1 Com prehensive Internal Medicine Work Phone: Comment on above: [facility] [address] [place], [place], [address] CBC W/Diff, Automated 3.8 K/mm3 Abnormal 4.4-11.0 Com prehensive Internal Medicine Work Phone: Comment on above: [facility] [address] [place], [place], [address] CBC W/Diff, Automated 4.04 {M/mm3} Abnormal 4.2-5.4 [facility] Work Phone: Comment on above: [facility] [address] [place], [address] CBC W/Diff, Automated 12.3 g/dL Normal 12.0-15.0 [facility] prehensive Internal Medicine Work Phone: Comment on above: [facility] [address] [place], [place], [address] CBC W/Diff, Automated 38.8 % Normal 37-47 [facility] prehensive Internal Medicine Work Phone: Comment on above: [facility] [address] [place], [address] CBC W/Diff, Automated 96.0 fL Normal 81-99 [facility] prehensive Internal Medicine Work Phone: Comment on above: [facility] [address] [place], [address] CBC W/Diff, Automated 30.4 pg Normal 27.0-32.0 [facility] prehensive Internal Medicine Work Phone: Comment on above: [facility] [address] [place], [address] CBC W/Diff, Automated 31.7 {g/gl} Abnormal 32-[address] [facility] Work Phone: Comment on above: [facility] [address] [place], [address] CBC W/Diff, Automated 53.6 fL Abnormal 35.1-43.9 [facility] prehensive Internal Medicine Work Phone: Comment on above: [facility] [address] [place], [place], [phone] CBC W/Diff, Automated 266 K/mm3 Normal 150-450 [facility] prehensive Internal Medicine Work Phone: Comment on above: [facility] [address] [place], [place], [phone] CBC W/Diff, Automated 9.6 fL Normal 6.2-12.0 [facility] prehensive Internal Medicine Work Phone: Comment on above: [facility] [address] [place], [address] CBC W/Diff, Automated 52.5 % Normal 47-70 [facility] prehensive Internal Medicine Work Phone: Comment on above: [facility] [address] [place], [place], [phone] CBC W/Diff, Automated 32.5 % Normal 19-41 [facility] prehensive Internal Medicine Work Phone: Comment on above: [facility] [address] [place], [address] CBC W/Diff, Automated 10.8 % Abnormal 0-10 [facility] prehensive Internal Medicine Work Phone: Comment on above: [facility] [address] [place], [address] CBC W/Diff, Automated 2.9 % Normal 0-5 [facility] prehensive Internal Medicine Work Phone: Comment on above: [facility] [address] [place], [place], [phone] CBC W/Diff, Automated 0.500 % Normal 0.0-0.9 [facility] prehensive Internal Medicine Work Phone: Comment on above: IG% - Immature Granu locytes (promyelocytes, myelocytes andmetamyelocytes) > 1% indicates that a LEFT SHIFT is Present. [facility] [address] [place], [place], [address] CBC W/Diff, Automated 2.0 {X10_3/uL} Normal 2.0-7.7 Comprehensive Internal Medicine Work Phone: Comment on above: [facility] [address] [place], [place], [address] CBC W/Diff, Automated 1.23 {X10_3/ul} Normal 0.83-4.51 Comprehensive Internal Medicine Work Phone: Comment on above: [facility] [address] [place], [place], [address] CBC W/Diff, Automated 1+ Normal Com prehensive Internal Medicine Work Phone: Comment on above: [facility] [address] [place], [place], [address] CBC W/Diff, Automated 15.0 % Abnormal 11.6-14.6 [facility] prehensive Internal Medicine Work Phone: Comment on above: [facility] [address] [place], [address] Comprehensive Metabolic Prof ilOrdered By: Senior Media Director on 02-09-2016 Comprehensive metabolic 2000 panel 4.1 mmol/L Normal 3.5-5.1 Comprehensi ve Internal Medicine Work Phone: Comment on above: [facility] [address] [place], [place], [address] ; will review at 02/20 appt Comprehensive metabolic 2000 panel 32 U/L Normal 12-78 Comprehensi ve Internal Medicine Work Phone: Comment on above: [facility] [address] [place], [place], [address] ; will review at 02/20 appt Comprehensive metabolic 2000 panel 81 mg/dL Normal 70-110 Comprehensi ve Internal Medicine Work Phone: Comment on above: [facility] [address] [place], [place], [address]201 ; will review at 02/20 appt Comprehensive metabolic 2000 panel 63 U/L Normal 50-136 Comprehensi ve Internal Medicine Work Phone: Comment on above: [facility] [address] [place], [place], [address] ; will review at 02/20 appt Comprehensive metabolic 2000 panel 24 U/L Normal 15-37 Comprehensi ve Internal Medicine Work Phone: Comment on above: [facility] [address] [place], [place], [address] ; will review at 02/20 appt Comprehensive metabolic 2000 panel 30.0 mmol/L Normal 21.0-32.0 Comprehensi ve Internal Medicine Work Phone: Comment on above: [facility] [address] [place], [place], [address] ; will review at 02/20 appt Comprehensive metabolic 2000 panel 7 1 Normal 5-15 Comprehensi ve Internal Medicine Work Phone: Comment on above: [facility] [address] [place], [place], [address] ; will review at 02/20 appt Comprehensive metabolic 2000 panel 8.7 mg/dL Normal 8.5-10.1 Comprehensi ve Internal Medicine Work Phone: Comment on above: [facility] Y[address] [place], [place], [address] ; will review at 02/20 appt Comprehensive metabolic 2000 panel 0.98 mg/dL Normal 0.55-1.20 Comprehensi ve Internal Medicine Work Phone: Comment on above: The validity of the calculated GFR AND GFRAA in patients over70 years has not been determined. Clinical correlation isessential. [facility] [address] [place], [place], [phone] ; will review at 02/20 appt Comprehensive metabolic 2000 panel 14.3 {RATIO} Normal 10-20 Comprehensi ve Internal Medicine Work Phone: Comment on above: [facility] spital [address] [place], [place], [phone] ; will review at 02/20 appt Comprehensive metabolic 2000 panel 1.1 {RATIO} Normal 0.9-2.4 Comprehensi ve Internal Medicine Work Phone: Comment on above: [facility] [address] [place], [place], [address] ; will review at 02/20 appt Comprehensive metabolic 2000 panel 14 mg/dL Normal 7-18 Comprehensi ve Internal Medicine Work Phone: Comment on above: [facility] spital [address] [place], [place], [address] ; will review at 02/20 appt Comprehensive metabolic 2000 panel 3.3 g/dL Normal 2.3-3.5 Comprehensi ve Internal Medicine Work Phone: Comment on above: [facility] [address] [place], [place], [address] ; will review at 02/20 appt Comprehensive metabolic 2000 panel 3.5 g/dL Normal 3.4-5.0 Comprehensi ve Internal Medicine Work Phone: Comment on above: [facility] [address] [place], [place], [address] ; will review at 02/20 appt Comprehensive metabolic 2000 panel 140 mmol/L Normal 136-145 Comprehensi ve Internal Medicine Work Phone: Comment on above: [facility] [address] [place], [place], [address] ; will review at 02/20 appt Comprehensive metabolic 2000 panel 60 mL/min Normal Comprehensi ve Internal Medicine Work Phone: Comment on above: Non- GFR Calc [facility] spital [address] [place], [place], [address] ; will review at 02/20 appt Comprehensive metabolic 2000 panel 6.8 g/dL Normal 6.4-8.2 Comprehensi ve Internal Medicine Work Phone: Comment on above: [facility] [address] [place], [place], [address] ; will review at 02/20 appt Comprehensive metabolic 2000 panel 73 mL/min Normal Comprehensi ve Internal Medicine Work Phone: Comment on above: GFR Calc [facility] [address] [place], [place], [address] ; will review at 02/20 appt Comprehensive metabolic 2000 panel 0.40 mg/dL Normal 0.20-1.00 Comprehensi ve Internal Medicine Work Phone: Comment on above: [facility] [address] [place], [place], [address] ; will review at 02/20 appt Comprehensive metabolic 2000 panel 103 mmol/L Normal 98-107 Comprehensi ve Internal Medicine Work Phone: Comment on above: [facility] [address] [place], [place], [address] ; will review at 02/20 appt Lipid ProfileOrdered By: Elif tem Webbing Weaver on 02-09-2016 Lipid Profile 94 mg/dL Normal Comprehensi ve Internal Medicine Work Phone: Comment on above: The drugs N-Acetylcy steine and Metamizole may falsely deressthis assay.Serum Triglycerides Reference Interval Normal <150 mg/dL Borderline high 150 - 199 mg/dL High 200 - 499 mg/dL Very High > or = 500 mg/dL [facility] [address] [place], [place], [address] Lipid Profile 87 mg/dL Normal Comprehensi ve Internal Medicine Work Phone: Comment on above: The drugs N-Acetylcy steine and Metamizole may falsely deressthis assay. Reference Range HDL <40 mg/dL Low HDL Cholesterol HDL >or= 60 mg/dL High HDL Cholesterol [facility] [address] [place], [place], [address] Lipid Profile 134 mg/dL Abnormal 0-130 Comprehensi ve Internal Medicine Work Phone: Comment on above: [facility] [address] [place], [place], [address] Lipid Profile 19 mg/dL Normal 5-40 Comprehensi ve Internal Medicine Work Phone: Comment on above: [facility] [address] [place], [phone] Lipid Profile 240 mg/dL Abnormal Comprehensi ve Internal Medicine Work Phone: Comment on above: <200 mg/dL Desirable 200-240 mg/dL Borderline >240 mg/dL High Risk [place] [address] [place], [address] Vitamin D,25 HydroxyOrdered By: Senior Media Director on 02-09-2016 Vitamin D,25 Hydroxy 48.9 ng/mL Normal Comp rehensive Internal Medicine Work Phone: Comment on above: Vitamin D 25(OH) Sta tus Range Deficiency <20 ng/mL (50nmol/L) Insuffciency 20 - 30 ng/mL (50 - 75 nmol/L) Sufficiency 30 - 100 ng/mL (75 - 250 nmol/L) Toxicity >100 ng/mL (>250 nmol/L) [facility] [address] [place], [address] Comprehensive Metabolic Prof ilOrdered By: Senior Media Director on 11-06-2015 Comprehensive metabolic 2000 panel 3.5 g/dL Normal 3.4-5.0 Comprehensi ve Internal Medicine Work Phone: Comment on above: [facility] [address] [place], [address] Comprehensive metabolic 2000 panel 22 U/L Normal 15-37 Comprehensi ve Internal Medicine Work Phone: Comment on above: [facility] [address] [place], [address] Comprehensive metabolic 2000 panel 8.8 mg/dL Normal 8.5-10.1 Comprehensi ve Internal Medicine Work Phone: Comment on above: [facility] [address] [place], [place], [address] Comprehensive metabolic 2000 panel 4 1 Abnormal 5-15 Comprehensi ve Internal Medicine Work Phone: Comment on above: [facility] [address] [place], [place], [address] Comprehensive metabolic 2000 panel 3.4 g/dL Normal 2.3-3.5 Comprehensi ve Internal Medicine Work Phone: Comment on above: [facility] [address] [place], [place], [address] Comprehensive metabolic 2000 panel 28.0 mmol/L Normal 21.0-32.0 Comprehensi ve Internal Medicine Work Phone: Comment on above: [facility] [address] [place], [place], [address] Comprehensive metabolic 2000 panel 140 mmol/L Normal 136-145 Comprehensi ve Internal Medicine Work Phone: Comment on above: [facility] [address] [place], [place], [address] Comprehensive metabolic 2000 panel 0.50 mg/dL Normal 0.20-1.00 Comprehensi ve Internal Medicine Work Phone: Comment on above: [facility] [address] [place], [place], [address] Comprehensive metabolic 2000 panel 0.98 mg/dL Normal 0.55-1.20 Comprehensi ve Internal Medicine Work Phone: Comment on above: The validity of the calculated GFR AND GFRAA in patients over70 years has not been determined. Clinical correlation isessential. [facility] [address] [place], [address] Comprehensive metabolic 2000 panel 60 mL/min Normal Comprehensi ve Internal Medicine Work Phone: Comment on above: Non- GFR Calc [facility] [address] [place], [address] Comprehensive metabolic 2000 panel 108 mmol/L Abnormal 98-107 Comprehensi ve Internal Medicine Work Phone: Comment on above: [facility] [address] [place], [address] Comprehensive metabolic 2000 panel 73 mL/min Normal Comprehensi ve Internal Medicine Work Phone: Comment on above: GFR Calc [facility] [address] [place], [address] Comprehensive metabolic 2000 panel 69 U/L Normal 50-136 Comprehensi ve Internal Medicine Work Phone: Comment on above: [facility] [address] [place], [address] Comprehensive metabolic 2000 panel 4.0 mmol/L Normal 3.5-5.1 Comprehensi ve Internal Medicine Work Phone: Comment on above: [facility] [address] [place], [address] Comprehensive metabolic 2000 panel 13.2 {RATIO} Normal 10-20 Comprehensi ve Internal Medicine Work Phone: Comment on above: [facility] [address] [place], [address] Comprehensive metabolic 2000 panel 13 mg/dL Normal 7-18 Comprehensi ve Internal Medicine Work Phone: Comment on above: [facility] [address] [place], [address] Comprehensive metabolic 2000 panel 6.9 g/dL Normal 6.4-8.2 Comprehensi ve Internal Medicine Work Phone: Comment on above: [facility] [address] [place], [place], [address] Comprehensive metabolic 2000 panel 25 U/L Normal 12-78 Comprehensi ve Internal Medicine Work Phone: Comment on above: [facility] [address] [place], [address] Comprehensive metabolic 2000 panel 74 mg/dL Normal 70-110 Comprehensi ve Internal Medicine Work Phone: Comment on above: [facility] [address] [place], [place], [address] Comprehensive metabolic 2000 panel 1.0 {RATIO} Normal 0.9-2.4 Comprehensi ve Internal Medicine Work Phone: Comment on above: [facility] [address] [place], [place], [address] Lipid ProfileOrdered By: Elif [facility] Webbing Weaver on 11-06-2015 Lipid Profile 67 mg/dL Normal Comprehensi ve Internal Medicine Work Phone: Comment on above: Reference Range HDL <40 mg/dL Low HDL Cholesterol HDL >or= 60 mg/dL High HDL Cholesterol [facility] [address] [place], [place], [address] Lipid Profile 176 mg/dL Normal Comprehensi ve Internal Medicine Work Phone: Comment on above: Serum Triglycerides Reference Interval Normal <150 mg/dL Borderline high 150 - 199 mg/dL High 200 - 499 mg/dL Very High > or = 500 mg/dL [facility] [address] [place], [place], [address] Lipid Profile 237 mg/dL Abnormal Comprehensi ve Internal Medicine Work Phone: Comment on above: <200 mg/dL Desirable 200-240 mg/dL Borderline >240 mg/dL High Risk [facility] [address] [place], [place], [address] Lipid Profile 35 mg/dL Normal 5-40 Comprehensi ve Internal Medicine Work Phone: Comment on above: [facility] [address] [place], [address] Lipid Profile 135 mg/dL Abnormal 0-130 Comprehensi ve Internal Medicine Work Phone: Comment on above: [facility] [address] [place], [address] Thyroid Stim Hormone (TSH)Or dered By: Senior Media Director on 11-06-2015 Thyrotropin Qn 1.67 {uIU/mL} Normal 0.358-3.74 Compreh ensive Internal Medicine Work Phone: Comment on above: [facility] [address] [place], [address] Vitamin D,25 HydroxyOrdered By: Senior Media Director on 11-06-2015 Vitamin D,25 Hydroxy 43.6 ng/mL Normal Comp rehensive Internal Medicine Work Phone: Comment on above: Vitamin D 25([place]) Sta tus Range Deficiency <20 ng/mL (50nmol/L) Insuffciency 20 - 30 ng/mL (50 - 75 nmol/L) Sufficiency 30 - 100 ng/mL (75 - 250 nmol/L) Toxicity >100 ng/mL (>250 nmol/L) [facility] [address] [place], [address] Rapid Strep Test, Office ([phone])Ordered By: Anaya Brown on 10-23-2015 S. pyogenes Ag IA Ql (Unsp spec) Negative Normal Comprehensive Internal Medicine Work Phone: CA [phone] By: Bharath cardenas on 08-31-2015 Cancer Ag 15-3 Ql 14.7 U/mL Normal 0.0-25.0 Compreh ensive Internal Medicine Work Phone: Comment on above: Edy ECLIA methodol ogyPerformed at: [facility] [address] [id number] Director: Raphael Rodríguez PhD, Phone: [phone] ADD ON USE 0107:EP17 [facility] (refer to report for specific site)refer to report for address and phone number CA [phone] By: Bharath brambila on 08-31-2015 Cancer Ag 27-29 Ql 17.7 U/mL Normal 0.0-38.6 Compre [facility] Internal Medicine Work Phone: Comment on above: Elva Centaur/ACS me thodology ADD ON USE 0107:EP17 [facility] (refer to report for specific site)refer to report for address and phone number CBC W/Diff, Auto - EPLAB Onl yOrdered By: Senior Media Director on 08-31-2015 Basophils/100 WBC (Bld) 1.3 % Abnormal 0-1 Comprehensive Internal Medicine Work Phone: Comment on above: At [facility] Outpatient [facility] Medical Oncologypatients receive CBC w/auto Differential ONLY. Physicianwill place an order for a manual differential or Pathologistreview at his discretion. [facility]. [address] [place] [address] [address] CAR PINCHER: MAGNOLIA HOLLY DO PH:[phone] [facility] [address] [place], [place], [phone] CBC W Auto Differential panel - Blood 2.9 {X10_3/uL} Normal 2.0-7.7 Comprehensive Internal Medicine Work Phone: Comment on above: At [facility] Outpatient [facility] Medical Oncologypatients receive CBC w/auto Differential ONLY. Physicianjames place an order for a manual differential or Pathologistreview at his discretion. [facility]. [address] [place] [address] [address] CAR PINCHER: MAGNOLIA HOLLY DO PH:[phone] [facility] Hospital [address] [place], [place], [address] Eosinophils/100 WBC (Bld) 2.0 % Normal 0-5 Comprehensive Internal Medicine Work Phone: Comment on above: At [facility] Outpatient [facility] Medical Oncologypatients receive CBC w/auto Differential ONLY. Physicianwill place an order for a manual differential or Pathologistreview at his discretion. [facility]. [address] [place] [address] [address] CAR PINCHER: MAGNOLIA HOLLY DO PH:[phone] [facility] [address] [place], [place], [phone] Erythrocyte distribution width Ratio (RBC) 13.0 % Normal 11.6-14.6 Comprehensive Internal Medicine Work Phone: Comment on above: At [facility] Outpatient [facility] Medical Oncologypatients receive CBC w/auto Differential ONLY. Physicianwill place an order for a manual differential or Pathologistreview at his discretion. [facility]. [address] [place] [address] [address] CAR PINCHER: MAGNOLIA HOLLY DO PH:[phone] Grove City Methodist Hospital [address] [place], [address] Hematocrit Volume Fraction (Bld) 39.0 % Normal 37-47 Comprehensive Internal Medicine Work Phone: Comment on above: At [facility] Outpatient [facility] Medical Oncologypatients receive CBC w/auto Differential ONLY. Physicianwill place an order for a manual differential or Pathologistreview at his discretion. [facility]. [address] [place] [address] [address] CAR PINCHER: MAGNOLIA HOLLY DO PH:[phone] Grove [facility] Hospital [address] [place], [place], [phone] Hemoglobin mass conc (Bld) 13.0 g/dL Normal 12.0-15.0 Comprehensive [facility] Medicine Work Phone: Comment on above: At [facility] Outpatient [facility] Medical Oncologypatients receive CBC w/auto Differential ONLY. Physicianwill place an order for a manual differential or Pathologistreview at his discretion. [facility]. [address] [place] [address] [address] CAR PINCHER: MAGNOLIA HOLLY DO PH:[phone] Grove [facility] Hospital [address] [facility] [id number] Lymphocytes #/vol (Bld) 1.04 {X10_3/uL} Normal 0.83-4.51 [facility] Work Phone: Comment on above: At [facility] Outpatient [facility] Medical Oncologypatients receive CBC w/auto Differential ONLY. Physicianwill place an order for a manual differential or Pathologistreview at his discretion. [facility]. [address] [place] [address] [address] CAR PINCHER: MAGNOLIA HOLLY DO PH:[phone] Grove [facility] Hospital [address] [place], [place], [phone] Lymphocytes/100 WBC (Bld) 23.3 % Normal 19-41 [facility] Work Phone: Comment on above: At [facility] Outpatient [facility] Medical Oncologypatients receive CBC w/auto Differential ONLY. Physicianwill place an order for a manual differential or Pathologistreview at his discretion. [facility]. [address] [place] [address] [address] CAR PINCHER: MAGNOLIA HOLLY DO PH:[phone] Grove [facility] Hospital [address] [place], [place], [phone] MCH Entitic mass (RBC) 30.2 pg Normal 27.0-32.0 [facility] Work Phone: Comment on above: At [facility] Outpatient [facility] Medical Oncologypatients receive CBC w/auto Differential ONLY. Physicianwill place an order for a manual differential or Pathologistreview at his discretion. [facility]. [address] [place] [address] [address] CAR PINCHER: MAGNOLIA HOLLY DO PH:[phone] Grove City Methodist Hospital [address] [place], [place], [phone] MCHC mass conc (RBC) 33.5 g/dL Normal 32-36 [facility] Internal Medicine Work Phone: Comment on above: At [facility] Outpatient [facility] Medical Oncologypatients receive CBC w/auto Differential ONLY. Physicianwill place an order for a manual differential or Pathologistreview at his discretion. [facility]. [address] [place] [address] [address] CAR PINCHER: MAGNOLIA HOLLY DO PH:[phone] Grove City Methodist Hospital [address] [place], [address] MCV Entitic volume (RBC) 90.3 fL Normal 81-99 [facility] Work Phone: Comment on above: At [facility] Outpatient [facility] Medical Oncologypatients receive CBC w/auto Differential ONLY. Physicianwill place an order for a manual differential or Pathologistreview at his discretion. [facility]. [address] [place] [address] [address] CAR PINCHER: MAGNOLIA HOLLY DO PH:[phone] Grove City Methodist Hospital [address] [place], [address] Monocytes/100 WBC (Bld) 9.4 % Normal 0-10 [facility] Work Phone: Comment on above: At [facility] Outpatient [facility] Medical Oncologypatients receive CBC w/auto Differential ONLY. Physicianwill place an order for a manual differential or Pathologistreview at his discretion. [facility]. [address] [place] [address] [address] CAR PINCHER: MAGNOLIA HOLLY DO PH:[phone] Grove City [facility] Hospital [address] [place], [address] Neutrophils/100 WBC (Bld) 64.1 % Normal 47-70 [facility] Work Phone: Comment on above: At [facility] Outpatient [facility] Medical Oncologypatients receive CBC w/auto Differential ONLY. Physicianwill place an order for a manual differential or Pathologistreview at his discretion. [facility]. [address] [place] [address] [address] CAR PINCHER: MAGNOLIA HOLLY DO PH:[phone] Grove City Methodist Hospital [address] [place], [place], [phone] Platelet mean volume Entitic volume (Bld) 6.8 fL Normal 6.2-12.0 Comprehensi ve Internal Medicine Work Phone: Comment on above: At [facility] Outpatient [facility] Medical Oncologypatients receive CBC w/auto Differential ONLY. Physicianwill place an order for a manual differential or Pathologistreview at his discretion. [facility]. [address] [place] [address] [address] CAR PINCHER: MAGNOLIA HOLLY DO PH:[phone] Grove City [facility] Hospital [address] [place], [address] Platelets #/vol (Bld) 271 10*3/uL Normal 150-450 Co mprehensive Internal Medicine Work Phone: Comment on above: At [facility] Outpatient [facility] Medical Oncologypatients receive CBC w/auto Differential ONLY. Physicianwill place an order for a manual differential or Pathologistreview at his discretion. [facility]. [address] [place] [address] [address] CAR PINCHER: MAGNOLIA HOLLY DO PH:[phone] Grove City Methodist Hospital [address] [place], [address] RBC #/vol (Bld) 4.31 {M/mm3} Normal 4.2-5.4 Compreh ensive Internal Medicine Work Phone: Comment on above: At [facility] Outpatient [facility] Medical Oncologypatients receive CBC w/auto Differential ONLY. Physicianwill place an order for a manual differential or Pathologistreview at his discretion. [facility]. [address] [place] [address] [address] CAR PINCHER: MAGNOLIA HOLLY DO PH:[phone] Grove City [facility] Hospital [address] [place], [place], [phone] WBC #/vol (Bld) 4.5 10*3/uL Normal 4.4-11.0 Comprehe nsive Internal Medicine Work Phone: Comment on above: At [facility] Medical Oncologypatients receive CBC w/auto Differential ONLY. Physiciancristoballl place an order for a manual differential or Pathologistreview at his discretion. [facility]. [address] [place] [address] [address] CAR PINCHER: MAGNOLIA HOLLY DO PH:[phone] Grove City Methodist Hospital [address] [place], [address] Carcinoembryonic AntigenOrde red By: Senior Media Director on 08-31-2015 Carcinoembryonic Ag mass conc 1.2 ng/mL Normal 0.0-4.7 [facility] Work Phone: Comment on above: Edy ECLIA methodol ogy Nonsmokers <3.9 Smokers <5.6 ADD ON USE [id number] [facility] (refer to report for specific site)refer to report for address and phone number Comprehensive Metabolic Prof ilOrdered By: Senior Media Director on 08-31-2015 Comprehensive metabolic 2000 panel 26.0 mmol/L Normal 21.0-32.0 Comprehensi ve Internal Medicine Work Phone: Comment on above: Serial Specimen #1, #2 or #3? [address] [place] [address] [place], [address] Comprehensive metabolic 2000 panel 1.3 {RATIO} Normal 0.9-2.4 Comprehensi ve Internal Medicine Work Phone: Comment on above: Serial Specimen #1, #2 or #3? [address] [place] [address] [place], [address] Comprehensive metabolic 2000 panel 13 mg/dL Normal 7-18 Comprehensi ve Internal Medicine Work Phone: Comment on above: Serial Specimen #1, #2 or #3? [address] [place] [address] [place], [address] Comprehensive metabolic 2000 panel 1.05 mg/dL Normal 0.55-1.20 Comprehensi ve Internal Medicine Work Phone: Comment on above: The validity of the calculated GFR AND GFRAA in patients over70 years has not been determined. Clinical correlation isessential. Serial Specimen #1, #2 or #3? [address] [place] [address] [place], [place], [id number] Comprehensive metabolic 2000 panel 56 mL/min Abnormal Comprehensi ve Internal Medicine Work Phone: Comment on above: Non- GFR Calc Serial Specimen #1, #2 or #3? [address] [place] [address] [place], [address] Comprehensive metabolic 2000 panel 143 mmol/L Normal 136-145 Comprehensi ve Internal Medicine Work Phone: Comment on above: Serial Specimen #1, #2 or #3? [address] [place] [address] [place], [address] Comprehensive metabolic 2000 panel 4.1 mmol/L Normal 3.5-5.1 Comprehensi ve Internal Medicine Work Phone: Comment on above: Serial Specimen #1, #2 or #3? [address] [place] [address] [place], [address] Comprehensive metabolic 2000 panel 108 mmol/L Abnormal 98-107 Comprehensi ve Internal Medicine Work Phone: Comment on above: Serial Specimen #1, #2 or #3? [address] [place] [address] [place], [address] Comprehensive metabolic 2000 panel 3.8 g/dL Normal 3.4-5.0 Comprehensi ve Internal Medicine Work Phone: Comment on above: Serial Specimen #1, #2 or #3? [address] [place] [address] [place], [address] Comprehensive metabolic 2000 panel 3.0 g/dL Normal 2.3-3.5 Comprehensi ve Internal Medicine Work Phone: Comment on above: Serial Specimen #1, #2 or #3? [address] [place] [address] [place], [place], [address] Comprehensive metabolic 2000 panel 106 mg/dL Normal 70-110 Comprehensi ve Internal Medicine Work Phone: Comment on above: Serial Specimen #1, #2 or #3? [address] [place] [address] [place], [place], [address] Comprehensive metabolic 2000 panel 8.9 mg/dL Normal 8.5-10.1 Comprehensi ve Internal Medicine Work Phone: Comment on above: Serial Specimen #1, #2 or #3? [address] [place] [address] [place], [place], [id number] Comprehensive metabolic 2000 panel 20 U/L Normal 15-37 Comprehensi ve Internal Medicine Work Phone: Comment on above: Serial Specimen #1, #2 or #3? [address] [place] [address] [place], [place], [address] Comprehensive metabolic 2000 panel 30 U/L Normal 12-78 Comprehensi ve Internal Medicine Work Phone: Comment on above: Serial Specimen #1, #2 or #3? [address] [place] [address] [place], [place], [address] Comprehensive metabolic 2000 panel 79 U/L Normal 50-136 Comprehensi ve Internal Medicine Work Phone: Comment on above: Serial Specimen #1, #2 or #3? [address] [place] [address] [place], [place], [address] Comprehensive metabolic 2000 panel 6.8 g/dL Normal 6.4-8.2 Comprehensi ve Internal Medicine Work Phone: Comment on above: Serial Specimen #1, #2 or #3? [address] [place] [address] [place], [address] Comprehensive metabolic 2000 panel 68 mL/min Normal Comprehensi ve Internal Medicine Work Phone: Comment on above: GFR Calc Serial Specimen #1, #2 or #3? [address] [place] [address] [place], [address] Comprehensive metabolic 2000 panel 12.4 {RATIO} Normal 10-20 Comprehensi ve Internal Medicine Work Phone: Comment on above: Serial Specimen #1, #2 or #3? [address] [place] [address] [place], [address] Comprehensive metabolic 2000 panel 9 1 Normal 5-15 Comprehensi ve Internal Medicine Work Phone: Comment on above: Serial Specimen #1, #2 or #3? [address] [place] [address] [place], [address] Comprehensive metabolic 2000 panel 0.30 mg/dL Normal 0.20-1.00 Comprehensi ve Internal Medicine Work Phone: Comment on above: Serial Specimen #1, #2 or #3? [address] [place] [address] [place], [address] LDHOrdered By: System Manage r on 08-31-2015 LDH enzyme act/vol 175 U/L Normal 84-246 [facility] Internal Medicine Work Phone: Comment on above: Serial Specimen #1, #2 or #3? [address] [place] [address] [place], [address] Uric AcidOrdered By: Senior Media Director on 08-31-2015 Urate mass conc 3.0 mg/dL Normal 2.6-6.0 [facility] Internal Medicine Work Phone: Comment on above: Serial Specimen #1, #2 or #3? [address] [place] [address] [place], [address] URINE SUNNY CULTURE-KAYDEN COL C OUNT ([id number])Ordered By: Senior Media Director on 07-18-2015 Bacteria identified Cx Nom (U) Final report Normal [facility] Work Phone: Comment on above: PATIENT NOT FASTINGP ERFORMED BY: [facility] [id number] [facility] [id number] Information: SRC:[facility] [id number] Bacteria identified Cx Nom (U) MUG Normal [facility] Work Phone: Comment on above: Mixed urogenital annie ra10,000-25,000 colony forming units per mL PATIENT NOT FASTINGP ERFORMED BY: [facility] [id number] [facility] [id number] Information: SRC:[facility] [id number] Urinalysis, Office ([id number])Or dered By: Nancy Morris on 07-18-2015 Bilirubin Ql (U) Negative Normal Comprehe nsive Internal Medicine Work Phone: Glucose Test strip mass conc (U) Negative Normal [facility] Work Phone: Hemoglobin Ql (U) Negative Normal Compreh ensive Internal Medicine Work Phone: Ketones Ql (U) Negative Normal Comprehens cheri Internal Medicine Work Phone: Leukocyte esterase Test strip Ql (U) Small Normal [facility] Work Phone: Nitrite Ql (U) Negative Normal Comprehens cheri Internal Medicine Work Phone: pH (U) 7.5 [pH] Normal [facility] Work Phone: Protein Ql (U) Negative Normal Comprehens cheri Internal Medicine Work Phone: Specific gravity Relative Density (U) 1.010 1 Normal Comprehensi ve Internal Medicine Work Phone: Urobilinogen mass/time (24H U) 2 mg/dL Normal [facility] Work Phone: CBC W/Diff, AutomatedOrdered By: Senior Media Director on 07-03-2015 CBC W/Diff, Automated 11.0 % Abnormal 0-10 Com prehensive Internal Medicine Work Phone: Comment on above: [facility] [address] [place], [place], [id number] ; non-emergent till apt CBC W/Diff, Automated 3.7 K/mm3 Abnormal 4.4-11.0 [facility] prehensive Internal Medicine Work Phone: Comment on above: [facility] [address] [place], [place], [id number] ; non-emergent till apt CBC W/Diff, Automated 4.19 {M/mm3} Abnormal 4.2-5.4 [facility] Work Phone: Comment on above: [facility] [address] [place], [address] ; non-emergent till apt CBC W/Diff, Automated 13.0 g/dL Normal 12.0-15.0 [facility] prehensive Internal Medicine Work Phone: Comment on above: [facility] [address] [place], [place], [address] ; non-emergent till apt CBC W/Diff, Automated 40.8 % Normal 37-47 [facility] prehensive Internal Medicine Work Phone: Comment on above: [facility] [address] [place], [place], [address] ; non-emergent till apt CBC W/Diff, Automated 97.4 fL Normal 81-99 [facility] prehensive Internal Medicine Work Phone: Comment on above: [facility] [address] [place], [place], [address] ; non-emergent till apt CBC W/Diff, Automated 31.0 pg Normal 27.0-32.0 [facility] prehensive Internal Medicine Work Phone: Comment on above: [facility] [address] [place], [place], [address] ; non-emergent till apt CBC W/Diff, Automated 13.1 % Normal 11.6-14.6 [facility] prehensive Internal Medicine Work Phone: Comment on above: [facility] [address] [place], [place], [address] ; non-emergent till apt CBC W/Diff, Automated 46.7 fL Abnormal 35.1-43.9 [facility] prehensive Internal Medicine Work Phone: Comment on above: [facility] [address] [place], [place], [id number] ; non-emergent till apt CBC W/Diff, Automated 300 K/mm3 Normal 150-450 [facility] prehensive Internal Medicine Work Phone: Comment on above: [facility] [address] [place], [place], [id number] ; non-emergent till apt CBC W/Diff, Automated 10.3 fL Normal 6.2-12.0 [facility] prehensive Internal Medicine Work Phone: Comment on above: [facility] [address] [place], [place], [address] ; non-emergent till apt CBC W/Diff, Automated 52.4 % Normal 47-70 [facility] prehensive Internal Medicine Work Phone: Comment on above: [facility] [address] [place], [place], [address] ; non-emergent till apt CBC W/Diff, Automated 32.8 % Normal 19-41 [facility] prehensive Internal Medicine Work Phone: Comment on above: [facility] [address] [place], [place], [address] ; non-emergent till apt CBC W/Diff, Automated 0.300 % Normal 0.0-0.9 [facility] prehensive Internal Medicine Work Phone: Comment on above: IG% - Immature Granu locytes (promyelocytes, myelocytes andmetamyelocytes) > 1% indicates that a LEFT SHIFT is Present. [facility] [address] [place], [place], [address] ; non-emergent till apt CBC W/Diff, Automated 3.0 % Normal 0-5 [facility] prehensive Internal Medicine Work Phone: Comment on above: [facility] [address] [place], [place], [address] ; non-emergent till apt CBC W/Diff, Automated 0.5 % Normal 0-1 Com prehensive Internal Medicine Work Phone: Comment on above: [facility] [address] [place], [place], [address] ; non-emergent till apt CBC W/Diff, Automated 2.0 {X10_3/uL} Normal 2.0-7.7 [facility] Work Phone: Comment on above: [facility] [address] [place], [place], [address] ; non-emergent till apt CBC W/Diff, Automated 1.22 {X10_3/ul} Normal 0.83-4.51 [facility] Work Phone: Comment on above: [facility] [address] [place], [place], [address] ; non-emergent till apt CBC W/Diff, Automated 31.9 {g/gl} Abnormal 32-[address] [facility] Work Phone: Comment on above: [place] [address] [place], [place], [address] ; non-emergent till apt Comprehensive Metabolic Prof ilOrdered By: Senior Media Director on 07-03-2015 Comprehensive metabolic 2000 panel 1.03 mg/dL Normal 0.55-1.20 Comprehensi ve Internal Medicine Work Phone: Comment on above: The validity of the calculated GFR AND GFRAA in patients over70 years has not been determined. Clinical correlation isessential. [facility] [address] [place], [place], [id number] Comprehensive metabolic 2000 panel 12.6 {RATIO} Normal 10-20 Comprehensi ve Internal Medicine Work Phone: Comment on above: [facility] spital [address] [place], [place], [address] Comprehensive metabolic 2000 panel 25 U/L Normal 15-37 Comprehensi ve Internal Medicine Work Phone: Comment on above: [facility] [address] [place], [place], [address] Comprehensive metabolic 2000 panel 7.2 g/dL Normal 6.4-8.2 Comprehensi ve Internal Medicine Work Phone: Comment on above: [facility] [address] [place], [place], [address] Comprehensive metabolic 2000 panel 57 mL/min Abnormal Comprehensi ve Internal Medicine Work Phone: Comment on above: Non- GFR Calc [facility] [address] [place], [place], [address] Comprehensive metabolic 2000 panel 9.2 mg/dL Normal 8.5-10.1 Comprehensi ve Internal Medicine Work Phone: Comment on above: [facility] [address] [place], [place], [address] Comprehensive metabolic 2000 panel 6 1 Normal 5-15 Comprehensi ve Internal Medicine Work Phone: Comment on above: [facility] [address] [place], [place], [id number] Comprehensive metabolic 2000 panel 1.2 {RATIO} Normal 0.9-2.4 Comprehensi ve Internal Medicine Work Phone: Comment on above: [facility] [address] [place], [place], [address] Comprehensive metabolic 2000 panel 86 mg/dL Normal 70-110 Comprehensi ve Internal Medicine Work Phone: Comment on above: [facility] [address] [place], [place], [address] Comprehensive metabolic 2000 panel 0.40 mg/dL Normal 0.20-1.00 Comprehensi ve Internal Medicine Work Phone: Comment on above: [facility] [address] [place], [place], [address] Comprehensive metabolic 2000 panel 4.0 g/dL Normal 3.4-5.0 Comprehensi ve Internal Medicine Work Phone: Comment on above: [facility] [address] [place], [place], [address] Comprehensive metabolic 2000 panel 13 mg/dL Normal 7-18 Comprehensi ve Internal Medicine Work Phone: Comment on above: [facility] [address] [place], [place], [id number] Comprehensive metabolic 2000 panel 3.2 g/dL Normal 2.3-3.5 Comprehensi ve Internal Medicine Work Phone: Comment on above: [facility] [address] [place], [place], [address] Comprehensive metabolic 2000 panel 31.0 mmol/L Normal 21.0-32.0 Comprehensi ve Internal Medicine Work Phone: Comment on above: [facility] [address] [place], [place], [address] Comprehensive metabolic 2000 panel 104 mmol/L Normal 98-107 Comprehensi ve Internal Medicine Work Phone: Comment on above: [facility] [address] [place], [place], [id number] Comprehensive metabolic 2000 panel 30 U/L Normal 12-78 Comprehensi ve Internal Medicine Work Phone: Comment on above: [facility] [address] [place], [place], [address] Comprehensive metabolic 2000 panel 4.5 mmol/L Normal 3.5-5.1 Comprehensi ve Internal Medicine Work Phone: Comment on above: [facility] [address] [place], [address] Comprehensive metabolic 2000 panel 82 U/L Normal 50-136 Comprehensi ve Internal Medicine Work Phone: Comment on above: [facility] [address] [place], [address] Comprehensive metabolic 2000 panel 141 mmol/L Normal 136-145 Comprehensi ve Internal Medicine Work Phone: Comment on above: [facility] [address] [place], [address] Comprehensive metabolic 2000 panel 69 mL/min Normal Comprehensi ve Internal Medicine Work Phone: Comment on above: GFR Calc [facility] [address] [place], [place], [id number] Lipid ProfileOrdered By: Elif tem Webbing Weaver on 07-03-2015 Lipid Profile 247 mg/dL Abnormal Comprehensi ve Internal Medicine Work Phone: Comment on above: <200 mg/dL Desirable 200-240 mg/dL Borderline >240 mg/dL High Risk [facility] [address] [place], [address] Lipid Profile 195 mg/dL Normal Comprehensi ve Internal Medicine Work Phone: Comment on above: Serum Triglycerides Reference Interval Normal <150 mg/dL Borderline high 150 - 199 mg/dL High 200 - 499 mg/dL Very High > or = 500 mg/dL [facility] [address] [place], [address] Lipid Profile 69 mg/dL Normal Comprehensi ve Internal Medicine Work Phone: Comment on above: Reference Range HDL <40 mg/dL Low HDL Cholesterol HDL >or= 60 mg/dL High HDL Cholesterol [facility] [address] [place], [address] Lipid Profile 139 mg/dL Abnormal 0-130 Comprehensi ve Internal Medicine Work Phone: Comment on above: [facility] [facility] [address] [place], [place], [id number] Lipid Profile 39 mg/dL Normal 5-40 Comprehensi ve Internal Medicine Work Phone: Comment on above: [facility] [address] [place], [id number] Urinalysis, CompleteOrdered By: Senior Media Director on 07-03-2015 Protein mass conc (U) Negative Normal Com prehensive Internal Medicine Work Phone: Comment on above: How was Urine [facility] ed? [facility] [address] [place], [address] RBC #/vol (U) 0 SEEN Normal 0-5 Comprehensi ve Internal Medicine Work Phone: Comment on above: How was Urine Obtain ed? [facility] [address] [place], [address] Urinalysis complete panel - Urine 1.010 1 Normal 1.002-1.03 0 Comprehensive Internal Medicine Work Phone: Comment on above: How was Urine Obtain ed? [facility] [address] [place], [address] Urinalysis complete panel - Urine 8.0 1 Normal 5.0 - 8.0 Comprehensive Internal Medicine Work Phone: Comment on above: How was Urine Obtain ed? [facility], [facility] [address] [place], [address] Urinalysis complete panel - Urine Normal Normal Comprehensive Internal Medicine Work Phone: Comment on above: How was Urine Obtain ed? [facility] [address] [place], [address] Urinalysis complete panel - Urine Negative Normal Comprehensive Internal Medicine Work Phone: Comment on above: How was Urine [facility]btain ed? [facility] [address] [place], [address] Urinalysis complete panel - Urine 100 /ul Abnormal Comprehensive Internal Medicine Work Phone: Comment on above: How was Urine Obtain ed? Urine, [facility] [address] [place], [address] Urinalysis complete panel - Urine 0-5 SEEN Normal 5-10 Comprehensive Internal Medicine Work Phone: Comment on above: How was Urine Obtain ed? Urine, [facility] [address] [place], [phone] Urinalysis complete panel - Urine 0 SEEN Normal Comprehensive Internal Medicine Work Phone: Comment on above: How was Urine Obtain ed? [facility], [facility] [address] [place], [id number] Urinalysis complete panel - Urine Yellow Normal Comprehensive Internal Medicine Work Phone: Comment on above: How was Urine Obtain ed? [facility], [facility] [address] [place], [phone] Urinalysis complete panel - Urine Clear Normal Comprehensive Internal Medicine Work Phone: Comment on above: How was Urine Obtain ed? [facility], [facility] [address] [place], [id number] Vitamin D,25 HydroxyOrdered By: Senior Media Director on 07-03-2015 Vitamin D,25 Hydroxy 40.2 ng/mL Normal Comp rehensive Internal Medicine Work Phone: Comment on above: Vitamin D 25(OH) Sta tus Range Deficiency <20 ng/mL (50nmol/L) Insuffciency 20 - 30 ng/mL (50 - 75 nmol/L) Sufficiency 30 - 100 ng/mL (75 - 250 nmol/L) Toxicity >100 ng/mL (>250 nmol/L) [facility] [address] [place], [address] IGP, Aptima HPV, rfx 16/18,4 5Ordered By: Senior Media Director on 05-12-2015 HPV 16+18+31+33+35+39+45+ 51+52+56+58+59+66+68 DNA Probe+sig amp Ql (Cvx) Negative Normal Comprehensive Internal Medicine Work Phone: Comment on above: This test detects fo urteen high-risk HPV types (16/18/31/33/35/39/45/51/52/56/58/59/66/68) without differentiation. Source.............C ervical;EndocervicalNo. of containers..01 CYTYC Thin Prep VialPATIENT NOT FASTINGPERFORMED BY: =G [employer]120 DeliveryEdgezaCCB Research GrouprHarvest [place] W [id number] BY: Vinsula120 DeliveryEdgezaCCB Research GrouprHarvest [place] [id number] Microscopic observation Other stain Nom (Unsp spec) . Normal Comprehens cheri Internal Medicine Work Phone: Comment on above: Source.............C ervical;EndocervicalNo. of containers..01 CYTYC Thin Prep VialPATIENT NOT FASTINGPERFORMED BY: =G [employer]120 [employer]EdgezaCCB Research GrouprHarvest [place] W [id number] BY: Vinsula120 DeliveryEdgezaCCB Research GrouprxG Technology W [id number] Pathology report final diagnosis Narrative [facility] Normal Comprehensive Internal Medicine Work Phone: Comment on above: NEGATIVE FOR INTRAEP ITHELIAL LESION AND MALIGNANCY.Satisfactory for evaluation.V76.2 ; Screening for malignant neoplasm of the cervixKristi Guerrero Overlock Operator (ASCP) Source.............C ervical;EndocervicalNo. of containers..01 CYTYC Thin Prep VialPATIENT NOT FASTINGPERFORMED BY: =G [employer]120 DeliveryEdgezaCCB Research Grouprleston [place] [id number] BY: [facility] [address] [id number] IGP, Aptima HPV, rfx 16/18,45 PAPSMR Normal Comprehensive Internal Medicine Work Phone: Comment on above: The Pap smear is a s creening test designed to aid in the detection ofpremalignant and malignant conditions of the uterine cervix. It is not adiagnostic procedure and should not be used as the sole means of detectingcervical cancer. Both false-positive and false-negative reports do occur. .This liquid based ThinPrep(R) pap test was screened with theuse of an image guided system. Source.............C ervical;EndocervicalNo. of containers..01 CYTYC Thin Prep VialPATIENT NOT FASTINGPERFORMED BY: =G [employer]At[employer]120 [facility] [id number] BY: [employer] [place] [address] [id number] Thin Prep Pap ([id number])Ordered By: Senior Media Director on 05-12-2015 Thin Prep Pap ([id number]) 30-65 Normal [facility] prehensive Internal Medicine Work Phone: Comment on above: Source.............C ervical;EndocervicalNo. of containers..01 CYTYC Thin Prep VialPATIENT NOT FASTINGPERFORMED BY: =G [employer]120 [facility] [id number] BY: [employer] [place] [address] [id number] Information: [id number] Lipid ProfileOrdered By: Elif tem Webbing Weaver on 03-06-2015 Lipid Profile 91 mg/dL Normal 0-199 Comprehensi ve Internal Medicine Work Phone: Comment on above: Serum Triglycerides Reference Interval Normal <150 mg/dL Borderline high 150 - 199 mg/dL High 200 - 499 mg/dL Very High > or = 500 mg/dL PT ALREADY HAD CMP A ND CBC DONE 7-9 AND DID NOT WANT TODUPLICATE ANY TESTSTest performed at:[facility] [address] [place] [address] ; non-emergent till apt Lipid Profile 18 mg/dL Normal 5-40 Comprehensi ve Internal Medicine Work Phone: Comment on above: PT ALREADY HAD CMP A ND CBC DONE 7-9 AND DID NOT WANT TODUPLICATE ANY TESTSTest performed at:[facility] [address] [place] [address] ; non-emergent till apt Lipid Profile 137 mg/dL Abnormal 0-130 Comprehensi ve Internal Medicine Work Phone: Comment on above: PT ALREADY HAD CMP A ND CBC DONE 7-9 AND DID NOT WANT TODUPLICATE ANY TESTSTest performed at:[facility] [address] [place] [address] ; non-emergent till apt Lipid Profile 72 mg/dL Normal Comprehensi ve Internal Medicine Work Phone: Comment on above: Reference Range HDL <40 mg/dL Low HDL Cholesterol HDL >or= 60 mg/dL High HDL Cholesterol PT ALREADY HAD CMP A ND CBC DONE 7-9 AND DID NOT WANT TODUPLICATE ANY TESTSTest performed at:[facility] [address] [place], [place] [address] ; non-emergent till apt Lipid Profile 227 mg/dL Abnormal Comprehensi ve Internal Medicine Work Phone: Comment on above: <200 mg/dL Desirable 200-240 mg/dL Borderline >240 mg/dL High Risk PT ALREADY HAD CMP A ND CBC DONE 7-9 AND DID NOT WANT TODUPLICATE ANY TESTSTest performed at:[facility] [address] [place] [address] ; non-emergent till apt Thyroid Stim Hormone (TSH)Or dered By: Senior Media Director on 03-06-2015 Thyrotropin Qn 1.33 {uIU/mL} Normal 0.358-3.74 Compreh ensive Internal Medicine Work Phone: Comment on above: PT ALREADY HAD CMP A ND CBC DONE 7-9 AND DID NOT WANT TODUPLICATE ANY TESTSTest performed at:[facility] [address] [place], [place] [address] Vitamin D,25 HydroxyOrdered By: Senior Media Director on 03-06-2015 Vitamin D,25 Hydroxy 36.4 ng/mL Normal Comp rehensive Internal Medicine Work Phone: Comment on above: Vitamin D 25([place]) Sta tus Range Deficiency <20 ng/mL (50nmol/L) Insuffciency 20 - 30 ng/mL (50 - 75 nmol/L) Sufficiency 30 - 100 ng/mL (75 - 250 nmol/L) Toxicity >100 ng/mL (>250 nmol/L) Test performed at:[facility] [address] [place], [place] [phone] CBC W/Diff, Auto - EPLAB Onl yOrdered By: Senior Media Director on 03-02-2015 Basophils/100 WBC (Bld) 1.3 % Abnormal 0-1 Comprehensive Internal Medicine Work Phone: Comment on above: At [facility] Outpatient [facility] Medical Oncologypatients receive CBC w/auto Differential ONLY. Physicianwill place an order for a manual differential or Pathologistreview at his discretion. [facility]. [address] [place] [address] [address] CAR PINCHER: MAGNOLIA HOLLY DO PH:[phone] performed at:[facility] [address] [place], [place] [address] CBC W Auto Differential panel - Blood 2.0 {X10_3/uL} Normal 2.0-7.7 Comprehensive Internal Medicine Work Phone: Comment on above: At [facility] Outpatient [facility] Medical Oncologypatients receive CBC w/auto Differential ONLY. Physicianwill place an order for a manual differential or Pathologistreview at his discretion. [facility]. [address] [place] [address] [address] CAR PINCHER: MAGNOLIA HOLLY DO PH:[phone] performed at:[facility] [address] [place], [place] [id number] Eosinophils/100 WBC (Bld) 3.5 % Normal 0-5 Comprehensive Internal Medicine Work Phone: Comment on above: At [facility] Outpatient [facility] [place] Medical Oncologypatients receive CBC w/auto Differential ONLY. Physicianwill place an order for a manual differential or Pathologistreview at his discretion. [facility]. [address] [place] [address] [address] CAR PINCHER: MAGNOLIA HOLLY DO PH:[phone] performed at:[facility] [address] [place] [address] Erythrocyte distribution width Ratio (RBC) 13.3 % Normal 11.6-14.6 Comprehensive Internal Medicine Work Phone: Comment on above: At [facility] Outpatient [facility] [place] Medical Oncologypatients receive CBC w/auto Differential ONLY. Physicianwill place an order for a manual differential or Pathologistreview at his discretion. [facility]. [address] [place] [address] [address] CAR PINCHER: MAGNOLIA HOLLY DO PH:[phone] performed at:[facility] [address] [place] [address] Hematocrit Volume Fraction (Bld) 41.8 % Normal 37-47 Comprehensive Internal Medicine Work Phone: Comment on above: At [facility] Outpatient [facility] Medical Oncologypatients receive CBC w/auto Differential ONLY. Physicianwill place an order for a manual differential or Pathologistreview at his discretion. [facility]. [address] [place] [address] [address] CAR PINCHER: MAGNOLIA HOLLY DO PH:[phone] performed at:[facility] [address] [place], [place] [id number] Hemoglobin mass conc (Bld) 14.2 g/dL Normal 12.0-15.0 Comprehensive Internal Medicine Work Phone: Comment on above: At [facility] Outpatient [facility] [place] Medical Oncologypatients receive CBC w/auto Differential ONLY. Physicianwill place an order for a manual differential or Pathologistreview at his discretion. [facility]. [address] [place] [address] [address] CAR PINCHER: MAGNOLIA HOLLY DO PH:[phone] performed at:[facility] [address] [place] [address] Lymphocytes/100 WBC (Bld) 29.2 % Normal 19-41 Comprehensive Internal Medicine Work Phone: Comment on above: At [facility] Outpatient [facility] Medical Oncologypatients receive CBC w/auto Differential ONLY. Physicianwill place an order for a manual differential or Pathologistreview at his discretion. [facility]. [address] [place] [address] [address] CAR PINCHER: MAGNOLIA HOLLY DO PH:[phone] performed at:[facility] [address] [place] [address] MCH Entitic mass (RBC) 31.7 pg Normal 27.0-32.0 Comprehensive Internal Medicine Work Phone: Comment on above: At [facility] Outpatient [facility] Medical Oncologypatients receive CBC w/auto Differential ONLY. Physicianwill place an order for a manual differential or Pathologistreview at his discretion. [facility]. [address] [place] [address] [address] CAR PINCHER: MAGNOLIA HOLLY DO PH:[phone] performed at:[facility] [address] [place] [address] MCHC mass conc (RBC) 33.9 g/dL Normal 32-36 [facility] Internal Medicine Work Phone: Comment on above: At [facility] Outpatient [facility] Medical Oncologypatients receive CBC w/auto Differential ONLY. Physicianwill place an order for a manual differential or Pathologistreview at his discretion. [facility]. [address] [place] [address] [address] CAR PINCHER: MAGNOLIA HOLLY DO PH:[phone] performed at:[facility] [address] [place] [address] MCV Entitic volume (RBC) 93.5 fL Normal 81-99 Comprehensive Internal Medicine Work Phone: Comment on above: At [facility] Outpatient [facility] Medical Oncologypatients receive CBC w/auto Differential ONLY. Physicianwill place an order for a manual differential or Pathologistreview at his discretion. [facility]. [address] [place] [address] [address] CAR PINCHER: MAGNOLIA HOLLY DO PH:[phone] performed at:[facility] [address] [place] [address] Monocytes/100 WBC (Bld) 10.7 % Abnormal 0-10 Comprehensive Internal Medicine Work Phone: Comment on above: At [facility] [place] Medical Oncologypatients receive CBC w/auto Differential ONLY. Physicianwill place an order for a manual differential or Pathologistreview at his discretion. [facility]. [address] [place] [address] [address] CAR PINCHER: MAGNOLIA HOLLY DO PH:[phone] performed at:[facility] [address] [place] [address] Neutrophils/100 WBC (Bld) 55.3 % Normal 47-70 Comprehensive Internal Medicine Work Phone: Comment on above: At [facility] Medical Oncologypatients receive CBC w/auto Differential ONLY. Physicianwill place an order for a manual differential or Pathologistreview at his discretion. [facility]. [address] [place] [address] [address] CAR PINCHER: MAGNOLIA HOLLY DO PH:[phone] performed at:[facility] [address] [place] [address] Platelet mean volume Entitic volume (Bld) 7.0 fL Normal 6.2-12.0 Comprehensi Internal Medicine Work Phone: Comment on above: At [facility] Medical Oncologypatients receive CBC w/auto Differential ONLY. Physicianwill place an order for a manual differential or Pathologistreview at his discretion. [facility]. [address] [place] [address] [address] CAR PINCHER: MAGNOLIA HOLLY DO PH:[phone] performed at:[facility] [address] [place] [address] Platelets #/vol (Bld) 236 10*3/uL Normal 150-450 Co mprehensive Internal Medicine Work Phone: Comment on above: At [facility] Outpatient [facility] Medical Oncologypatients receive CBC w/auto Differential ONLY. Physicianwill place an order for a manual differential or Pathologistreview at his discretion. [facility]. [facility] [address] [place] [address] [address] CAR PINCHER: MAGNOLIA HOLLY DO PH:[phone] performed at:[facility] [address] [place] [address] RBC #/vol (Bld) 4.47 {M/mm3} Normal 4.2-5.4 Compreh ensive Internal Medicine Work Phone: Comment on above: At [facility] Outpatient [facility] Medical Oncologypatients receive CBC w/auto Differential ONLY. Physicianwill place an order for a manual differential or Pathologistreview at his discretion. [facility]. [facility] [address] [place] [address] CAR PINCHER: MAGNOLIA HOLLY DO PH:[phone] performed at:[facility] [address] [place] [address] WBC #/vol (Bld) 3.6 10*3/uL Abnormal 4.4-11.0 Comprehe nsive Internal Medicine Work Phone: Comment on above: At [facility] Outpatient [facility] Medical Oncologypatients receive CBC w/auto Differential ONLY. Physicianwill place an order for a manual differential or Pathologistreview at his discretion. [facility]. [facility] [address] [place] [address] [address] CAR PINCHER: MAGNOLIA HOLLY DO PH:[phone] performed at:[facility] [address] [place] [address] Comprehensive Metabolic Prof ilOrdered By: Senior Media Director on 03-02-2015 Comprehensive metabolic 2000 panel 15 mg/dL Normal 7-18 Comprehensi ve Internal Medicine Work Phone: Comment on above: Test performed at:[facility] [address] [place] [address] Comprehensive metabolic 2000 panel 81 U/L Normal 50-136 Comprehensi ve Internal Medicine Work Phone: Comment on above: Test performed at:[facility] [address] [place] [address] Comprehensive metabolic 2000 panel 3.0 g/dL Normal 2.7-4.2 Comprehensi ve Internal Medicine Work Phone: Comment on above: Test performed at:[facility] [address] [place] [address] Comprehensive metabolic 2000 panel 141 mmol/L Normal 136-145 Comprehensi ve Internal Medicine Work Phone: Comment on above: Test performed at:[facility] [address] [place] [address] Comprehensive metabolic 2000 panel 1.1 mg/dL Abnormal 0.6-1.0 Comprehensi ve Internal Medicine Work Phone: Comment on above: Test performed at:[facility] [address] [place] [address] Comprehensive metabolic 2000 panel 32 U/L Normal 12-78 Comprehensi ve Internal Medicine Work Phone: Comment on above: Test performed at:[facility] [address] [place] [address] Comprehensive metabolic 2000 panel 3.7 g/dL Normal 3.4-5.0 Comprehensi ve Internal Medicine Work Phone: Comment on above: Test performed at:[facility] [address] [place] [address] Comprehensive metabolic 2000 panel 6.7 g/dL Normal 6.4-8.2 Comprehensi ve Internal Medicine Work Phone: Comment on above: Test performed at:[facility] [address] [place] [address] Comprehensive metabolic 2000 panel 4.0 mmol/L Normal 3.5-5.1 Comprehensi ve Internal Medicine Work Phone: Comment on above: Test performed at:[facility] [address] [place] [address] Comprehensive metabolic 2000 panel 107 mmol/L Normal 98-107 Comprehensi ve Internal Medicine Work Phone: Comment on above: Test performed at:[facility] [address] [place] [address] Comprehensive metabolic 2000 panel 13.6 {RATIO} Normal 10-20 Comprehensi ve Internal Medicine Work Phone: Comment on above: Test performed at:[facility] [address] [place] [address] Comprehensive metabolic 2000 panel 64 mL/min Normal Comprehensi ve Internal Medicine Work Phone: Comment on above: Test performed at:[facility] [address] [place] [address] Comprehensive metabolic 2000 panel 91 mg/dL Normal 70-110 Comprehensi ve Internal Medicine Work Phone: Comment on above: Test performed at:[facility] [address] [place] [address] Comprehensive metabolic 2000 panel 53 mL/min Abnormal Comprehensi ve Internal Medicine Work Phone: Comment on above: Test performed at:[facility] [address] [place] [address] Comprehensive metabolic 2000 panel 29 U/L Normal 15-37 Comprehensi ve Internal Medicine Work Phone: Comment on above: Test performed at:[facility] [address] [place], [place] [id number] Comprehensive metabolic 2000 panel 9.1 mg/dL Normal 8.5-10.1 Comprehensi ve Internal Medicine Work Phone: Comment on above: Test performed at:[facility] [address] [place] [address] Comprehensive metabolic 2000 panel 1.2 {RATIO} Normal 0.9-2.4 Comprehensi ve Internal Medicine Work Phone: Comment on above: Test performed at:[facility] [address] [place] [address] Comprehensive metabolic 2000 panel 9 1 Normal 5-15 Comprehensi ve Internal Medicine Work Phone: Comment on above: Test performed at:[facility] [address] [place] [address] Comprehensive metabolic 2000 panel 0.30 mg/dL Normal 0.20-1.00 Comprehensi ve Internal Medicine Work Phone: Comment on above: Test performed at:[facility] [address] [place] [address] Comprehensive metabolic 2000 panel 25.0 mmol/L Normal 21.0-32.0 Comprehensi ve Internal Medicine Work Phone: Comment on above: Test performed at:[facility] [address] [place] [address] LDHOrdered By: System Manage r on 03-02-2015 LDH enzyme act/vol 190 U/L Normal 87-241 [facility] Internal Medicine Work Phone: Comment on above: Test performed at:[facility] [address] [place] [address] Uric AcidOrdered By: Senior Media Director on 03-02-2015 Urate mass conc 3.2 mg/dL Normal 2.6-6.[address] [facility] Internal Medicine Work Phone: Comment on above: Test performed at:[facility] [address] [place], [place] [address] BUNOrdered By: System Manage r on 11-24-2014 Urea nitrogen mass conc 19 mg/dL Abnormal 7-18 Comprehensive Internal Medicine Work Phone: Comment on above: ADDENDA: other dr or dered Test performed at:[facility] [address] [place] [address] Serum Creatinine AND GFROrde red By: Senior Media Director on 11-24-2014 Serum Creatinine AND GFR 72 mL/min Normal Comprehensive Internal Medicine Work Phone: Comment on above: Test performed at:[facility] [address] [place] [address] Serum Creatinine AND GFR 59 mL/min Abnormal Comprehensive Internal Medicine Work Phone: Comment on above: Test performed at:[facility] [address] [place], [place] [id number] Serum Creatinine AND GFR 1.0 mg/dL Normal 0.6-1.0 [facility] Work Phone: Comment on above: Test performed at:[facility] [address] [place], [place] [id number] Rapid Flu (91750 x 2)Ordered By: Zee Valderrama on 11-03-2014 FLUAV Ag IA Ql (Throat) Negative Normal [facility] Work Phone: Rapid Strep Test, Office ([phone])Ordered By: Zee Valderrama on 11-03-2014 S. pyogenes Ag IA Ql (Unsp spec) Negative Normal [facility] Work Phone: CBC W/Diff, AutomatedOrdered By: Senior Media Director on 10-31-2014 CBC W/Diff, Automated 97.7 fL Normal 81-99 Com prehensive Internal Medicine Work Phone: Comment on above: Test performed at:[facility] [address] [place], [place] [id number] ; non-emergent till apt this month CBC W/Diff, Automated 10.1 fL Normal 6.2-12.0 [facility] prehensive Internal Medicine Work Phone: Comment on above: Test performed at:[facility] [address] [place] [address] ; non-emergent till apt this month CBC W/Diff, Automated 1.23 {X10_3/ul} Normal 0.83-4.51 [facility] Work Phone: Comment on above: Test performed at:[facility] [address] [place] [address] ; non-emergent till apt this month CBC W/Diff, Automated 1.8 {X10_3/uL} Abnormal 2.0-7.7 [facility] Work Phone: Comment on above: Test performed at:[facility] [address] [place] [address] ; non-emergent till apt this month CBC W/Diff, Automated 50.7 % Normal 47-70 [facility] prehensive Internal Medicine Work Phone: Comment on above: Test performed at:[facility] [address] [place] [address] ; non-emergent till apt this month CBC W/Diff, Automated 0.300 % Normal 0.0-0.9 [facility] prehensive Internal Medicine Work Phone: Comment on above: IG% - Immature Granu locytes (promyelocytes, myelocytes andmetamyelocytes) > 1% indicates that a LEFT SHIFT is Present. Test performed at:[facility] [address] [place] [address] ; non-emergent till apt this month CBC W/Diff, Automated 0.9 % Normal 0-1 [facility] prehensive Internal Medicine Work Phone: Comment on above: Test performed at:[facility] [address] [place] [address] ; non-emergent till apt this month CBC W/Diff, Automated 265 K/mm3 Normal 150-450 [facility] prehensive Internal Medicine Work Phone: Comment on above: Test performed at:[facility] [address] [place] [address] ; non-emergent till apt this month CBC W/Diff, Automated 48.4 fL Abnormal 35.1-43.9 [facility] prehensive Internal Medicine Work Phone: Comment on above: Test performed at:[facility] [address] [place] [address] ; non-emergent till apt this month CBC W/Diff, Automated 13.5 % Normal 11.6-14.6 [facility] prehensive Internal Medicine Work Phone: Comment on above: Test performed at:[facility] [address] [place] [address] ; non-emergent till apt this month CBC W/Diff, Automated 32.4 {g/gl} Normal 32-36 [facility] Work Phone: Comment on above: Test performed at:[facility] [address] [place] [address] ; non-emergent till apt this month CBC W/Diff, Automated 31.7 pg Normal 27.0-32.0 [facility] prehensive Internal Medicine Work Phone: Comment on above: Test performed at:[facility] [address] [place], [place] [id number] ; non-emergent till apt this month CBC W/Diff, Automated 38.9 % Normal 37-47 [facility] prehensive Internal Medicine Work Phone: Comment on above: Test performed at:[facility] [address] [place] [address] ; non-emergent till apt this month CBC W/Diff, Automated 12.6 g/dL Normal 12.0-15.0 [facility] prehensive Internal Medicine Work Phone: Comment on above: Test performed at:[facility] [address] [place] [address] ; non-emergent till apt this month CBC W/Diff, Automated 3.98 {M/mm3} Abnormal 4.2-5.4 C omprehensive Internal Medicine Work Phone: Comment on above: Test performed at:[facility] [address] [place] [address] ; non-emergent till apt this month CBC W/Diff, Automated 3.5 K/mm3 Abnormal 4.4-11.0 Com prehensive Internal Medicine Work Phone: Comment on above: Test performed at:[facility] [address] [place] [address] ; non-emergent till apt this month CBC W/Diff, Automated 35.2 % Normal 19-41 Com prehensive Internal Medicine Work Phone: Comment on above: Test performed at:[facility] [address] [place] [address] ; non-emergent till apt this month CBC W/Diff, Automated 3.4 % Normal 0-5 Com prehensive [facility] Medicine Work Phone: Comment on above: Test performed at:[facility] [address] [place] [address] ; non-emergent till apt this month CBC W/Diff, Automated 9.5 % Normal 0-10 Com prehensive [facility] Medicine Work Phone: Comment on above: Test performed at:[facility] [address] [place] [address] ; non-emergent till apt this month Comprehensive Metabolic Prof ilOrdered By: Senior Media Director on 10-31-2014 Comprehensive Metabolic Profil 14 mg/dL Normal 7-18 [facility] Work Phone: Comment on above: Test performed at:[facility] [address] [place] [address] Comprehensive Metabolic Profil 73 mg/dL Normal 70-110 [facility] Work Phone: Comment on above: Test performed at:[facility] [address] [place] [address] Comprehensive Metabolic Profil 3.9 mmol/L Normal 3.5-5.1 [facility] Work Phone: Comment on above: Test performed at:[facility] [address] [place] [address] Comprehensive Metabolic Profil 137 mmol/L Normal 136-145 [facility] Work Phone: Comment on above: Test performed at:[facility] [address] [place], [place] [id number] Comprehensive Metabolic Profil 0.40 mg/dL Normal 0.00-4.00 [facility] Work Phone: Comment on above: Test performed at:[facility] [address] [place] [address] Comprehensive Metabolic Profil 30 U/L Normal 12-78 [facility] Work Phone: Comment on above: Test performed at:[facility] [address] [place] [address] Comprehensive Metabolic Profil 59 mL/min Abnormal [facility] Work Phone: Comment on above: Test performed at:[facility] [address] [place] [address] Comprehensive Metabolic Profil 74 U/L Normal 50-136 [facility] Work Phone: Comment on above: Test performed at:[facility] [address] [place] [address] Comprehensive Metabolic Profil 6 1 Normal 5-15 [facility] Work Phone: Comment on above: Test performed at:[facility] [address] [place] [address] Comprehensive Metabolic Profil 102 mmol/L Normal 98-107 [facility] Work Phone: Comment on above: Test performed at:[facility] [address] [place], [place] [id number] Comprehensive Metabolic Profil 20 U/L Normal 15-37 [facility] Work Phone: Comment on above: Test performed at:[facility] [address] [place] [address] Comprehensive Metabolic Profil 8.9 mg/dL Normal 8.5-10.1 [facility] Work Phone: Comment on above: Test performed at:[facility] [address] [place] [address] Comprehensive Metabolic Profil 1.3 {RATIO} Normal 0.9-2.4 [facility] Work Phone: Comment on above: Test performed at:[facility] [address] [place] [address] Comprehensive Metabolic Profil 2.9 g/dL Normal 2.7-4.2 [facility] Work Phone: Comment on above: Test performed at:[facility] [address] [place] [address] Comprehensive Metabolic Profil 6.6 g/dL Normal 6.4-8.2 [facility] Work Phone: Comment on above: Test performed at:[facility] [address] [place] [address] Comprehensive Metabolic Profil 1.0 mg/dL Normal 0.6-1.0 [facility] Work Phone: Comment on above: Test performed at:[facility] [address] [place] [address] Comprehensive Metabolic Profil 3.7 g/dL Normal 3.4-5.0 [facility] Work Phone: Comment on above: Test performed at:[facility] [address] [place] [address] Comprehensive Metabolic Profil 72 mL/min Normal [facility] Work Phone: Comment on above: Test performed at:[facility] [address] [place] [address] Comprehensive Metabolic Profil 14.0 {RATIO} Normal 10-20 [facility] Work Phone: Comment on above: Test performed at:[facility] [address] [place] [address] Comprehensive Metabolic Profil 29.0 mmol/L Normal 21.0-32.0 [facility] Work Phone: Comment on above: Test performed at:[facility] [address] [place] [address] Lipid ProfileOrdered By: Elif tem Webbing Weaver on 10-31-2014 Lipid Profile 23 mg/dL Normal 5-40 Comprehensi ve Internal Medicine Work Phone: Comment on above: Test performed at:[facility] [address] [place] [address] Lipid Profile 159 mg/dL Abnormal 0-130 Comprehensi ve Internal Medicine Work Phone: Comment on above: Test performed at:[facility] [address] [place] [address] Lipid Profile 66 mg/dL Normal Comprehensi ve Internal Medicine Work Phone: Comment on above: Reference Range HDL <40 mg/dL Low HDL Cholesterol HDL >or= 60 mg/dL High HDL Cholesterol Test performed at:[facility] [address] [place] [address] Lipid Profile 248 mg/dL Abnormal Comprehensi ve Internal Medicine Work Phone: Comment on above: <200 mg/dL Desirable 200-240 mg/dL Borderline >240 mg/dL High Risk Test performed at:[facility] [address] [place] [address] Lipid Profile 116 mg/dL Normal 0-199 Comprehensi ve Internal Medicine Work Phone: Comment on above: Serum Triglycerides Reference Interval Normal <150 mg/dL Borderline high 150 - 199 mg/dL High 200 - 499 mg/dL Very High > or = 500 mg/dL Test performed at:[facility] [address] [place], [place] [id number] Vitamin D,25 HydroxyOrdered By: Senior Media Director on 10-31-2014 Vitamin D,25 Hydroxy 47.5 ng/mL Normal Comp rehensive Internal Medicine Work Phone: Comment on above: Vitamin D 25(OH) Sta tus Range Deficiency <20 ng/mL (50nmol/L) Insuffciency 20 - 30 ng/mL (50 - 75 nmol/L) Sufficiency 30 - 100 ng/mL (75 - 250 nmol/L) Toxicity >100 ng/mL (>250 nmol/L) Test performed at:[facility] [address] [place], [place] [id number] CBCDOrdered By: System Manag er on 07-04-2014 CBCD 4.0 K/mm3 Abnormal 4.4-11.0 [facility] Work Phone: CBCD 4.20 {M/mm3} Normal 4.2-5.4 Comprehensiv e Internal Medicine Work Phone: CBCD 13.5 g/dL Normal 12.0-15.0 [facility] Work Phone: CBCD 42.2 % Normal 37-47 [facility] Work Phone: CBCD 100.5 fL Abnormal 81-99 [facility] Work Phone: CBCD 32.1 pg Abnormal 27.0-32.0 [facility] Work Phone: CBCD 32.0 {g/gl} Normal 32-36 [facility] Work Phone: CBCD 13.7 % Normal 11.6-14.6 [facility] Work Phone: CBCD 50.5 fL Abnormal 35.1-43.9 [facility] Work Phone: CBCD 205 K/mm3 Normal 150-450 [facility] Work Phone: CBCD 9.8 fL Normal 6.2-12.0 [facility] Work Phone: CBCD 50.3 % Normal 47-70 [facility] Work Phone: CBCD 31.5 % Normal 19-41 [facility] Work Phone: CBCD 11.8 % Abnormal 0-10 [facility] Work Phone: CBCD 4.8 % Normal 0-5 [facility] Work Phone: CBCD 0.8 % Normal 0-1 [facility] Work Phone: CBCD 0.800 % Normal 0.0-0.9 [facility] Work Phone: Comment on above: IG% - Immature Granu locytes (promyelocytes, myelocytes andmetamyelocytes) > 1% indicates that a LEFT SHIFT is Present. CBCD 1.26 {X10_3/ul} Normal 0.83-4.51 Comprehen sive Internal Medicine Work Phone: CBCD 2.0 {X10_3/uL} Normal 2.0-7.7 Comprehens cheri Internal Medicine Work Phone: CMPOrdered By: System Manage r on 07-04-2014 Albumin mass conc 3.3 g/dL Abnormal 3.4-5.0 Compreh ensive Internal Medicine Work Phone: Albumin/Globulin mass ratio 1.1 {RATIO} Normal 0.9-2.4 [facility] Work Phone: ALP enzyme act/vol 77 U/L Normal 50-136 [facility]pre [facility] Work Phone: ALT enzyme act/vol 60 U/L Normal 12-78 [facility]pre [facility] Work Phone: AST enzyme act/vol 33 U/L Normal 15-37 Compre [facility] Internal [facility] Work Phone: Bilirubin mass conc 0.40 mg/dL Normal 0.00-4.00 Compr ensive Internal Medicine Work Phone: Calcium mass conc 8.8 mg/dL Normal 8.5-10.1 Compreh ensive Internal Medicine Work Phone: Chloride molar conc 105 mmol/L Normal 98-107 Compr ehensive Internal Medicine Work Phone: CO2 molar conc 26.0 mmol/L Normal 21.0-32.0 Comprehen sive Internal Medicine Work Phone: Urea nitrogen mass conc 11 mg/dL Normal 7-18 [facility] Work Phone: Urea nitrogen/Creatinine mass ratio 11.0 {RATIO} Normal 10-20 [facility] Work Phone: CMP 137 mmol/L Normal 136-145 [facility] Work Phone: CMP 4.0 mmol/L Normal 3.5-5.1 [facility] Work Phone: CMP 6 1 Normal 5-15 [facility] Work Phone: CMP 1.0 mg/dL Normal 0.6-1.0 [facility] Work Phone: CMP 6.3 g/dL Abnormal 6.4-8.2 [facility] Work Phone: CMP 71 mg/dL Normal 70-110 [facility] Work Phone: CMP 3.0 g/dL Normal 2.7-4.2 [facility] Work Phone: CMP 59 mL/min Abnormal [facility] Work Phone: CMP 72 mL/min Normal [facility] Work Phone: LIPIDOrdered By: System Clemencia zach on 07-04-2014 LIPID 112 mg/dL Normal 0-199 [facility] Work Phone: Comment on above: Serum Triglycerides Reference IntervalNormal <150 mg/dLBorderline high 150 - 199 mg/dLHigh 200 - 499 mg/dLVery High > or = 500 mg/dL LIPID 90 mg/dL Normal [facility] Work Phone: Comment on above: Reference RangeHDL < 40 mg/dL Low HDL CholesterolHDL >or= 60 mg/dL High HDL Cholesterol LIPID 131 mg/dL Abnormal 0-130 [facility] Work Phone: LIPID 22 mg/dL Normal 5-40 [facility] Work Phone: LIPID 243 mg/dL Abnormal [facility] Work Phone: Comment on above: <200 mg/dL Desirable 200-240 mg/dL Borderline>240 mg/dL High Risk TSHOrdered By: System Manage r on 07-04-2014 Thyrotropin Qn 1.55 {uIU/mL} Normal 0.358-3.74 Compreh ensive Internal Medicine Work Phone: VITDOrdered By: System Manag er on 07-04-2014 VITD 35.8 ng/mL Normal [facility] Work Phone: Comment on above: Vitamin D 25(OH) Sta tus RangeDeficiency <20 ng/mL (50nmol/L)Insuffciency 20 - 30 ng/mL (50 - 75 nmol/L)Sufficiency 30 - 100 ng/mL (75 - 250 nmol/L)Toxicity >100 ng/mL (>250 nmol/L) C-REACTIVE PROTEIN ([id number])Or dered By: Senior Media Director on 04-04-2014 CRP mass conc mg/L Normal 0.0-4.9 Comprehensi ve Internal Medicine Work Phone: Comment on above: PATIENT NOT FASTINGP ERFORMED BY: 1DayMakeover6370 [facility] [id number] CBC WITH MANUAL DIFF ([id number]) Ordered By: Senior Media Director on 04-04-2014 Basophils #/vol (Bld) 0.0 {x10E3/uL} Normal 0.0-0.2 [facility] Work Phone: Comment on above: PATIENT NOT FASTINGP ERFORMED BY: [facility] [id number] Information: [id number] Basophils/100 WBC (Bld) 0 % Normal 0-3 [facility] Work Phone: Comment on above: PATIENT NOT FASTINGP ERFORMED BY: 1DayMakeover6370 [facility] [id number] Information: [id number] Eosinophils #/vol (Bld) 0.1 {x10E3/uL} Normal 0.0-0.4 [facility] Work Phone: Comment on above: PATIENT NOT FASTINGP ERFORMED BY: [place] [id number] [facility] [id number] Information: [id number] Eosinophils/100 WBC (Bld) 2 % Normal 0-5 [facility] Work Phone: Comment on above: PATIENT NOT FASTINGP ERFORMED BY: [address] [id number] Information: [id number] Erythrocyte distribution width Ratio (RBC) 13.7 % Normal 12.3-15.4 [facility] Work Phone: Comment on above: PATIENT NOT FASTINGP ERFORMED BY: [address] [id number] Information: [id number] Hematocrit Volume Fraction (Bld) 40.4 % Normal 34.0-46.6 [facility] Work Phone: Comment on above: PATIENT NOT FASTINGP ERFORMED BY: [address] [id number] Information: [id number] Hemoglobin mass conc (Bld) 13.5 g/dL Normal 11.1-15.9 [facility] Work Phone: Comment on above: PATIENT NOT FASTINGP ERFORMED BY: [place] [id number] [facility] [id number] Information: [id number] Immature granulocytes #/vol (Bld) 0.0 {x10E3/uL} Normal 0.0-0.1 [facility] Work Phone: Comment on above: PATIENT NOT FASTINGP ERFORMED BY: LabMel[place] [id number] [facility] [id number] Information: [id number] Immature granulocytes/100 WBC (Bld) 0 % Normal 0-2 [facility] Work Phone: Comment on above: PATIENT NOT FASTINGP ERFORMED BY: [facility]6370 [facility] [id number] Information: [id number] Lymphocytes #/vol (Bld) 1.6 {x10E3/uL} Normal 0.7-3.1 [facility] Work Phone: Comment on above: PATIENT NOT FASTINGP ERFORMED BY: [place] [id number] [facility] [id number] Information: [id number] Lymphocytes/100 WBC (Bld) 28 % Normal 14-46 [facility] Work Phone: Comment on above: PATIENT NOT FASTINGP ERFORMED BY: [place] 4566170 [facility] [id number] Information: [id number] MCH Entitic mass (RBC) 31.0 pg Normal 26.6-33.0 [facility] Work Phone: Comment on above: PATIENT NOT FASTINGP ERFORMED BY: [place] 4566170 [facility] [id number] Information: [id number] MCHC mass conc (RBC) 33.4 g/dL Normal 31.5-35.7 [facility] Internal Medicine Work Phone: Comment on above: PATIENT NOT FASTINGP ERFORMED BY: [facility]6370 [facility] [id number] Information: [id number] MCV Entitic volume (RBC) 93 fL Normal 79-97 [facility] Work Phone: Comment on above: PATIENT NOT FASTINGP ERFORMED BY: [place] [id number] [facility] [id number] Information: [id number] Monocytes #/vol (Bld) 0.8 {x10E3/uL} Normal 0.1-0.9 [facility] Work Phone: Comment on above: PATIENT NOT FASTINGP ERFORMED BY: BRE LabCobaltazar QuinteroZchqoh5568 [facility] [id number] Information: [id number] Monocytes/100 WBC (Bld) 14 % Abnormal 4-12 [facility] Work Phone: Comment on above: PATIENT NOT FASTINGP ERFORMED BY: [facility] Rnnrhl0222 [facility] [id number] Information: [id number] Neutrophils #/vol (Bld) 3.2 {x10E3/uL} Normal 1.4-7.0 [facility] Work Phone: Comment on above: PATIENT NOT FASTINGP ERFORMED BY: [facility]6370 [facility] [id number] Information: [id number] Neutrophils/100 WBC (Bld) 56 % Normal 40-74 [facility] Work Phone: Comment on above: PATIENT NOT FASTINGP ERFORMED BY: [facility] Mangeo1021 [facility] [id number] Information: [id number] Platelets #/vol (Bld) 305 {x10E3/uL} Normal 150-379 [facility] Work Phone: Comment on above: PATIENT NOT FASTINGP ERFORMED BY: [facility] Yjphns9909 [facility] [id number] Information: [id number] RBC #/vol (Bld) 4.35 {x10E6/uL} Normal 3.77-5.28 [facility] Internal Medicine Work Phone: Comment on above: PATIENT NOT FASTINGP ERFORMED BY: [facility]CoEssex [facility] HospitalMyqsin5754 [facility] [id number] Information: [id number] WBC #/vol (Bld) 5.8 {x10E3/uL} Normal 3.4-10.8 Compr ehensive Internal Medicine Work Phone: Comment on above: PATIENT NOT FASTINGP ERFORMED BY: CB [facility] Atcssy5104 [facility] [id number] Information: [id number] SED RATE ERYTHROCYTE (30541) Ordered By: Senior Media Director on 04-04-2014 ESR Velocity (Bld) 3 mm/h Normal 0-40 Compre hensive Internal Medicine Work Phone: Comment on above: PATIENT NOT FASTINGP ERFORMED BY: CB [facility] Lqmstt8466 [facility] [id number] URINE SUNNY CULTURE-KAYDEN COL C OUNT (07902)Ordered By: Senior Media Director on 04-04-2014 Bacteria identified Cx Nom (U) MUG Normal [facility] Work Phone: Comment on above: Mixed urogenital annie ra1,000 Colonies/mL PATIENT NOT FASTINGP ERFORMED BY: CB [facility] Fdgmda9668 [facility] [id number] Information: SRC:UR [id number] Bacteria identified Cx Nom (U) Final report Normal [facility] Work Phone: Comment on above: PATIENT NOT FASTINGP ERFORMED BY: [facility] Ehikes2428 [facility] [id number] Information: SRC:UR [id number] Urinalysis, Office (00075)Or dered By: Jenn Giron on 04-04-2014 Bilirubin Ql (U) Negative Normal Comprehe nsive Internal Medicine Work Phone: Glucose Test strip mass conc (U) Negative Normal [facility] Work Phone: Hemoglobin Ql (U) Negative Normal Compreh ensive Internal Medicine Work Phone: Ketones Ql (U) Negative Normal Comprehens cheri Internal Medicine Work Phone: Leukocyte esterase Test strip Ql (U) Negative Normal [facility] Work Phone: Nitrite Ql (U) Negative Normal Comprehens cheri Internal Medicine Work Phone: pH (U) 8 [pH] Abnormal [facility] Work Phone: Protein Ql (U) Negative Normal Comprehens cheri Internal Medicine Work Phone: Specific gravity Relative Density (U) 1.015 1 Normal Comprehensi ve Internal Medicine Work Phone: Urobilinogen mass/time (24H U) Normal Normal [facility] Work Phone: BUNOrdered By: System [place] 3D r on 03-02-2014 Urea nitrogen mass conc 12 mg/dL Normal 7-18 [facility] Work Phone: CREOrdered By: System [place] 3D r on 03-02-2014 CRE 58 mL/min Abnormal [facility] Work Phone: CRE 1.2 mg/dL Abnormal 0.6-1.0 [facility] Work Phone: CRE 48 mL/min Abnormal [facility] Work Phone: ECBCDOrdered By: System Clemencai zach on 03-02-2014 ECBCD 3.8 % Normal 0-5 [facility] Work Phone: ECBCD 1.3 % Abnormal 0-1 Comprehensive Internal Medicine Work Phone: ECBCD 33.9 g/dL Normal 32-36 [facility] Work Phone: ECBCD 6.4 fL Normal 6.2-12.0 [facility] Work Phone: ECBCD 32.1 pg Abnormal 27.0-32.0 [facility] Work Phone: ECBCD 52.4 % Normal 47-70 [facility] Work Phone: ECBCD 11.2 % Abnormal 0-10 [facility] Work Phone: ECBCD 31.3 % Normal 19-41 [facility] Work Phone: ECBCD 1.7 {X10_3/uL} Abnormal 2.0-7.7 Comprehens cheri [facility] Work Phone: ECBCD 40.0 % Normal 37-47 [facility] Work Phone: ECBCD 13.6 g/dL Normal 12.0-15.0 [facility] Work Phone: ECBCD 94.6 fL Normal 81-99 [facility] Work Phone: ECBCD 4.23 {M/mm3} Normal 4.2-5.4 Comprehensiv e Internal Medicine Work Phone: ECBCD 3.2 K/mm3 Abnormal 4.4-11.0 [facility] Work Phone: ECBCD 12.1 % Normal 11.6-14.6 [facility] Work Phone: ECBCD 245 K/mm3 Normal 150-450 [facility] Work Phone: LIVEROrdered By: System Clemencia serrano on 03-02-2014 Albumin mass conc 3.9 g/dL Normal 3.4-5.0 Compreh ensive Internal Medicine Work Phone: LIVER 0.40 mg/dL Normal 0.00-1.00 [facility] Work Phone: LIVER 74 U/L Normal 45-117 [facility] Work Phone: LIVER 23 U/L Normal 12-78 [facility] Work Phone: LIVER 18 U/L Normal 15-37 [facility] Work Phone: LIVER 6.5 g/dL Normal 6.4-8.2 [facility] Work Phone: LIVER 0.10 mg/dL Normal 0.00-0.30 [facility] Work Phone: CBCDOrdered By: System Manag er on 02-24-2014 CBCD 44.2 fL Abnormal 35.1-43.9 [facility] Work Phone: CBCD 3.6 K/mm3 Abnormal 4.4-11.0 [facility] Work Phone: CBCD 4.37 {M/mm3} Normal 4.2-5.4 Comprehensiv e Internal Medicine Work Phone: CBCD 13.9 g/dL Normal 12.0-15.0 [facility] Work Phone: CBCD 36.4 % Normal 19-41 [facility] Work Phone: CBCD 96.8 fL Normal 81-99 [facility] Work Phone: CBCD 31.8 pg Normal 27.0-32.0 [facility] Work Phone: CBCD 32.9 {g/gl} Normal 32-36 [facility] Work Phone: CBCD 10.3 fL Normal 6.2-12.0 [facility] Work Phone: CBCD 12.8 % Normal 11.6-14.6 [facility] Work Phone: CBCD 259 K/mm3 Normal 150-450 [facility] Work Phone: CBCD 1.30 {X10_3/ul} Normal 0.83-4.51 Comprehen sive Internal Medicine Work Phone: CBCD 1.7 {X10_3/uL} Abnormal 2.0-7.7 Comprehens cheri [facility] Work Phone: CBCD 0.300 % Normal 0.0-0.9 [facility] Work Phone: Comment on above: IG% - Immature Granu locytes (promyelocytes, myelocytes andmetamyelocytes) > 1% indicates that a LEFT SHIFT is Present. CBCD 0.6 % Normal 0-1 [facility] Work Phone: CBCD 3.4 % Normal 0-5 [facility] Work Phone: CBCD 11.5 % Abnormal 0-10 [facility] Work Phone: CBCD 47.8 % Normal 47-70 [facility] Work Phone: CBCD 42.3 % Normal 37-47 [facility] Work Phone: CMPOrdered By: System Manage r on 02-24-2014 Albumin mass conc 3.9 g/dL Normal 3.4-5.0 Compreh ensive Internal Medicine Work Phone: Albumin/Globulin mass ratio 1.2 {RATIO} Normal 0.9-2.4 [facility] Work Phone: ALP enzyme act/vol 80 U/L Normal 45-117 [facility] Work Phone: ALT enzyme act/vol 25 U/L Normal 12-78 [facility] Work Phone: AST enzyme act/vol 23 U/L Normal 15-37 [facility] Internal Medicine Work Phone: Bilirubin mass conc 0.40 mg/dL Normal 0.00-1.00 Compr [facility] Internal Medicine Work Phone: Calcium mass conc 9.3 mg/dL Normal 8.5-10.1 [facility] Work Phone: Chloride molar conc 104 mmol/L Normal 98-107 Compr [facility] Internal Medicine Work Phone: CO2 molar conc 30.0 mmol/L Normal 21.0-32.0 Comprehen [facility] Internal Medicine Work Phone: Urea nitrogen mass conc 13 mg/dL Normal 7-18 [facility] Internal Medicine Work Phone: Urea nitrogen/Creatinine mass ratio 11.8 {RATIO} Normal 10-20 [facility] Work Phone: CMP 80 mg/dL Normal [facility] Work Phone: Comment on above: Reference RangeHDL < 40 mg/dL Low HDL CholesterolHDL >or= 60 mg/dL High HDL Cholesterol CMP 1.1 mg/dL Abnormal 0.6-1.0 [facility] Work Phone: CMP 53 mL/min Abnormal [facility] Work Phone: CMP 64 mL/min Normal [facility] Work Phone: CMP 7.1 g/dL Normal 6.4-8.2 [facility] Work Phone: CMP 140 mmol/L Normal 136-145 [facility] Work Phone: CMP 4.0 mmol/L Normal 3.5-5.1 [facility] Work Phone: CMP 6 1 Normal 5-15 [facility] Work Phone: CMP 3.2 g/dL Normal 2.7-4.2 [facility] Work Phone: LIPIDOrdered By: System Clemencia zach on 02-24-2014 LIPID 126 mg/dL Normal 0-130 [facility] Work Phone: LIPID 225 mg/dL Abnormal [facility] Work Phone: Comment on above: <200 mg/dL Desirable 200-240 mg/dL Borderline>240 mg/dL High Risk LIPID 19 mg/dL Normal 5-40 [facility] Work Phone: LIPID 96 mg/dL Normal 0-199 [facility] Work Phone: Comment on above: Serum Triglycerides Reference IntervalNormal <150 mg/dLBorderline high 150 - 199 mg/dLHigh 200 - 499 mg/dLVery High > or = 500 mg/dL TSHOrdered By: System Manage r on 02-24-2014 Thyrotropin Qn 1.25 {uIU/mL} Normal 0.358-3.74 Compreh ensive Internal Medicine Work Phone: VITDOrdered By: System Manag er on 02-24-2014 VITD 57.8 mg/mL Normal [facility] Work Phone: Comment on above: Vitamin D 25(OH) Sta tus RangeDeficiency <20 ng/mL (50nmol/L)Insuffciency 20 - 30 ng/mL (50 - 75 nmol/L)Sufficiency 30 - 100 ng/mL (75 - 250 nmol/L)Toxicity >100 ng/mL (>250 nmol/L) CBCDOrdered By: System Manag er on 10-19-2013 CBCD 96.9 fL Normal 81-99 [facility] Work Phone: CBCD 40.6 % Normal 37-47 [facility] Work Phone: CBCD 4.19 {M/mm3} Abnormal 4.2-5.4 Comprehensiv e Internal Medicine Work Phone: CBCD 3.1 K/mm3 Abnormal 4.4-11.0 [facility] Work Phone: CBCD 1.3 {X10_3/uL} Abnormal 2.0-7.7 Comprehens cheri [facility] Medicine Work Phone: CBCD 0.000 % Normal 0.0-0.9 [facility] Work Phone: Comment on above: IG% - Immature Granu locytes (promyelocytes, myelocytes andmetamyelocytes) > 1% indicates that a LEFT SHIFT is Present. CBCD 1.9 % Abnormal 0-1 [facility] Work Phone: CBCD 4.8 % Normal 0-5 [facility] Work Phone: CBCD 12.5 % Abnormal 0-10 [facility] Work Phone: CBCD 37.6 % Normal 19-41 [facility] Work Phone: CBCD 43.2 % Abnormal 47-70 [facility] Work Phone: CBCD 10.1 fL Normal 6.2-12.0 [facility] Work Phone: CBCD 250 K/mm3 Normal 150-450 [facility] Work Phone: CBCD 41.2 fL Normal 35.1-43.9 [facility] Work Phone: CBCD 13.6 g/dL Normal 12.0-15.0 [facility] Work Phone: CBCD 12.2 % Normal 11.6-14.6 [facility] Work Phone: CBCD 33.5 {g/gl} Normal 32-36 [facility] Work Phone: CBCD 32.5 pg Abnormal 27.0-32.0 [facility] Work Phone: CMPOrdered By: System Manage r on 10-19-2013 Albumin mass conc 3.8 g/dL Normal 3.4-5.0 Compreh ensive Internal Medicine Work Phone: Albumin/Globulin mass ratio 1.3 {RATIO} Normal 0.9-2.4 [facility] Work Phone: ALP enzyme act/vol 73 U/L Normal 50-136 [facility] Internal Medicine Work Phone: ALT enzyme act/vol 24 U/L Normal 12-78 [facility] Internal Medicine Work Phone: AST enzyme act/vol 19 U/L Normal 15-37 [facility] Internal Medicine Work Phone: Bilirubin mass conc 0.40 mg/dL Normal 0.00-1.00 Compr ensive Internal Medicine Work Phone: Calcium mass conc 8.8 mg/dL Normal 8.5-10.1 Compreh [facility] Internal Medicine Work Phone: Chloride molar conc 106 mmol/L Normal 98-107 Compr [facility] Internal Medicine Work Phone: CO2 molar conc 28.0 mmol/L Normal 21.0-32.0 Comprehen [facility] Internal Medicine Work Phone: Urea nitrogen mass conc 11 mg/dL Normal 7-18 [facility] Work Phone: Urea nitrogen/Creatinine mass ratio 11.0 {RATIO} Normal 10-20 [facility] Work Phone: CMP 73 mL/min Normal [facility] Work Phone: CMP 5 1 Normal 5-15 [facility] Work Phone: CMP 3.7 mmol/L Normal 3.5-5.1 [facility] Work Phone: CMP 139 mmol/L Normal 136-145 [facility] Work Phone: CMP 6.7 g/dL Normal 6.4-8.2 [facility] Work Phone: CMP 2.9 g/dL Normal 2.7-4.2 [facility] Work Phone: CMP 85 mg/dL Normal 70-110 [facility] Work Phone: CMP 1.0 mg/dL Normal 0.6-1.0 [facility] Work Phone: CMP 60 mL/min Normal [facility] Work Phone: LIPIDOrdered By: System Clemencia zach on 10-19-2013 LIPID 189 mg/dL Normal [facility] Work Phone: Comment on above: <200 mg/dL Desirable 200-240 mg/dL Borderline>240 mg/dL High Risk LIPID 89 mg/dL Normal 0-130 [facility] Work Phone: LIPID 14 mg/dL Normal 5-40 [facility] Work Phone: LIPID 86 mg/dL Normal [facility] Work Phone: Comment on above: Reference RangeHDL < 40 mg/dL Low HDL CholesterolHDL >or= 60 mg/dL High HDL Cholesterol LIPID 72 mg/dL Normal 0-199 [facility] Work Phone: Comment on above: Serum Triglycerides Reference IntervalNormal <150 mg/dLBorderline high 150 - 199 mg/dLHigh 200 - 499 mg/dLVery High > or = 500 mg/dL VITDOrdered By: System Manag er on 10-19-2013 VITD 70.0 mg/mL Normal [facility] Work Phone: Comment on above: Vitamin D 25(OH) Sta tus RangeDeficiency <20 ng/mL (50nmol/L)Insuffciency 20 - 30 ng/mL (50 - 75 nmol/L)Sufficiency 30 - 100 ng/mL (75 - 250 nmol/L)Toxicity >100 ng/mL (>250 nmol/L) CBCDOrdered By: System Manag er on 06-25-2013 CBCD 3.3 % Normal 0-5 [facility] Work Phone: CBCD 0.000 % Normal 0.0-0.9 [facility] Work Phone: Comment on above: IG% - Immature Granu locytes (promyelocytes, myelocytes andmetamyelocytes) > 1% indicates that a LEFT SHIFT is Present. CBCD 10.2 fL Normal 6.2-12.0 [facility] Work Phone: CBCD 50.7 % Normal 47-70 [facility] Work Phone: CBCD 46.3 fL Abnormal 35.1-43.9 [facility] Work Phone: CBCD 13.4 % Normal 11.6-14.6 [facility] Work Phone: CBCD 33.5 {g/gl} Normal 32-36 [facility] Work Phone: CBCD 32.5 pg Abnormal 27.0-32.0 [facility] Work Phone: CBCD 97.0 fL Normal 81-99 [facility] Work Phone: CBCD 42.4 % Normal 37-47 [facility] Work Phone: CBCD 14.2 g/dL Normal 12.0-15.0 [facility] Work Phone: CBCD 32.3 % Normal 19-41 [facility] Work Phone: CBCD 12.6 % Abnormal 0-10 [facility] Work Phone: CBCD 1.1 % Abnormal 0-1 [facility] Work Phone: CBCD 246 K/mm3 Normal 150-450 [facility] Work Phone: CBCD 1.9 {X10_3/uL} Abnormal 2.0-7.7 Comprehens cheri Internal Medicine Work Phone: CMPOrdered By: System Manage r on 06-25-2013 Albumin mass conc 4.0 g/dL Normal 3.4-5.0 Compreh ensive Internal Medicine Work Phone: Albumin/Globulin mass ratio 1.3 {RATIO} Normal 0.9-2.4 [facility] Work Phone: ALP enzyme act/vol 80 U/L Normal 50-136 [facility] Work Phone: ALT enzyme act/vol 30 U/L Normal 12-78 Compre [facility] Internal Medicine Work Phone: AST enzyme act/vol 21 U/L Normal 15-37 Compre hensive Internal Medicine Work Phone: Bilirubin mass conc 0.40 mg/dL Normal 0.00-1.00 Compr ehensive Internal Medicine Work Phone: Calcium mass conc 9.1 mg/dL Normal 8.5-10.1 Compreh ensive Internal Medicine Work Phone: CO2 molar conc 28.0 mmol/L Normal 21.0-32.0 Comprehen sive Internal Medicine Work Phone: CMP 7.0 g/dL Normal 6.4-8.2 [facility] Work Phone: CMP 3.0 g/dL Normal 2.7-4.2 [facility] Work Phone: LIPIDOrdered By: Bharath Khanna zach on 06-25-2013 LIPID 196 mg/dL Normal [facility] Work Phone: Comment on above: <200 mg/dL Desirable 200-240 mg/dL Borderline>240 mg/dL High Risk LIPID 138 mg/dL Normal 0-199 [facility] Work Phone: Comment on above: Serum Triglycerides Reference IntervalNormal <150 mg/dLBorderline high 150 - 199 mg/dLHigh 200 - 499 mg/dLVery High > or = 500 mg/dL VITDOrdered By: System Manag er on 06-25-2013 VITD 110.6 mg/mL Normal [facility] Work Phone: Comment on above: Vitamin D 25(OH) Sta tus RangeDeficiency <20 ng/mL (50nmol/L)Insuffciency 20 - 30 ng/mL (50 - 75 nmol/L)Sufficiency 30 - 100 ng/mL (75 - 250 nmol/L)Toxicity >100 ng/mL (>250 nmol/L) URINE SUNNY CULTURE-KAYDEN COL C OUNT (68596)Ordered By: Senior Media Director on 10-26-2012 Bacteria identified Cx Nom (U) Final report Normal [facility] Work Phone: Comment on above: PATIENT NOT FASTINGP ERFORMED BY: [facility] Meuppj1529 [facility] [id number] Information: SRC:UR [id number] Bacteria identified Cx Nom (U) NG36 Normal [facility] Work Phone: Comment on above: No growth in 36 - 48 hours. PATIENT NOT FASTINGP ERFORMED BY: BRE [employer] Dwfrkl1279 [facility] [id number] Information: SRC:UR N80875 Urinalysis, Office ([id number])Or dered By: Anaya Brown on 10-26-2012 Bilirubin Ql (U) Negative Normal Comprehe nsive Internal Medicine Work Phone: Glucose Test strip (U) [Mass/Vol] Negative Normal [facility] Work Phone: Hemoglobin Ql (U) Negative Normal Compreh ensive Internal Medicine Work Phone: Ketones Ql (U) Moderate Normal Comprehens cheri Internal Medicine Work Phone: Comment on above: trace Leukocyte esterase Test strip Ql (U) Negative Normal [facility] Work Phone: Nitrite Ql (U) Negative Normal Comprehens cheri [facility] Medicine Work Phone: pH (U) 7.0 [pH] Normal [facility] Work Phone: Protein Ql (U) Trace Normal Comprehens cheri [facility] Medicine Work Phone: Specific gravity (U) [Rel density] 1.015 1 Normal [facility] Work Phone: Urobilinogen (24H U) [Mass/Time] Normal Normal [facility] Work Phone: URINALYSIS, W/ MICRO (62541) Ordered By: Senior Media Director on 10-05-2012 Appearance (U) Clear Normal Comprehens cheri [facility] Medicine Work Phone: Comment on above: PATIENT NOT FASTINGP ERFORMED BY: [facility] HospitalFsjrse0267 [facility] [id number] Information: SRC:UR U31474 Bilirubin Ql (U) Negative Normal Comprehe nsive Internal Medicine Work Phone: Comment on above: PATIENT NOT FASTINGP ERFORMED BY: BRE [facility] Wdgzdz0077 [address] RoadDublin [place] [id number] Information: SRC:UR U52116 Color (U) Yellow Normal [facility] Work Phone: Comment on above: PATIENT NOT FASTINGP ERFORMED BY: BRE [facility] Qydkex6749 Schwartz RoadDublin [place] [id number] Information: SRC:UR G76861 Glucose Ql (U) Negative Normal Comprehens cheri [facility] Work Phone: Comment on above: PATIENT NOT FASTINGP ERFORMED BY: BRE [facility] Vqdnqa0504 [address] RoadDublin [place] [id number] Information: SRC:UR Z54455 Hemoglobin Ql (U) Negative Normal Compreh ensive [facility] Medicine Work Phone: Comment on above: PATIENT NOT FASTINGP ERFORMED BY: BRE [facility] Viidbh0430 [address] RoadDublin [place] [id number] Information: SRC:UR I03068 Ketones Ql (U) Trace Abnormal Comprehens cheri [facility] Medicine Work Phone: Comment on above: PATIENT NOT FASTINGP ERFORMED BY: BRE [facility] Ukobya0245 [address] RoadDublin [place] [id number] Information: SRC:UR B37635 Leukocyte esterase Test strip Ql (U) Negative Normal [facility] Work Phone: Comment on above: PATIENT NOT FASTINGP ERFORMED BY: RBE [facility] Smfrsz5317 [address] RoadDublin [place] [id number] Information: SRC:UR B07193 Microscopic observation LM Nom (Urine sed) MICRON Normal [facility] Work Phone: Comment on above: Microscopic follows if indicated. PATIENT NOT FASTINGP ERFORMED BY: BRE [facility] Gbohba3243 [address] RoadDublin [place] [id number] Information: SRC:UR Q82682 Microscopic observation LM Nom (Urine sed) See below: Normal [facility] Work Phone: Comment on above: PATIENT NOT FASTINGP ERFORMED BY: CB [facility] Trnahf2354 [address] RoadNovant Health Fors[facility] Centerin [place] [id number] Information: SRC:UR K50674 Nitrite Ql (U) Negative Normal Comprehens cheri Internal Medicine Work Phone: Comment on above: PATIENT NOT FASTINGP ERFORMED BY: BRE [facility] Qiyqpi3881 [address] RoadWake [facility] [id number] Information: SRC:UR F54822 pH (U) 8.0 [pH] Abnormal 5.0-7.5 [facility] Work Phone: Comment on above: PATIENT NOT FASTINGP ERFORMED BY: BRE [facility] Qrnrys6329 Schwartz RoadNovant Health Forsy[facility] Medical Centerin [place] [id number] Information: SRC:UR J47284 Protein Ql (U) Trace Normal Comprehens cheri Internal Medicine Work Phone: Comment on above: PATIENT NOT FASTINGP ERFORMED BY: [facility] Bdsumr5360 [address] [facility] [id number] Information: SRC:UR G08885 Specific gravity (U) [Rel density] 1.024 1 Normal 1.005-1.03 0 [facility] Internal Medicine Work Phone: Comment on above: PATIENT NOT FASTINGP ERFORMED BY: BRE Mata Kajtrq6222 [address] [facility] [id number] Information: SRC:UR Y05068 Urobilinogen Test strip (U) [Mass/Vol] 0.2 mg/dL Normal 0.0-1.9 Comprehensi Internal Medicine Work Phone: Comment on above: PATIENT NOT FASTINGP ERFORMED BY: [facility] Ciafxa5429 [address] [facility] [id number] Information: SRC:UR A30550 URINE SUNNY CULTURE (KAYDEN COL COUNT) (85020)Ordered By: Senior Media Director on 10-05-2012 Bacteria identified Cx Nom (U) PSAV Normal [facility] Work Phone: Comment on above: Pseudomonas aerugino sa900 Colonies/mLMixed urogenital flora1,000 Colonies/mL S = Susceptible; I = Intermediate; R = Resistant P = Positive; N = Negative MICS are expressed in micrograms per mL Antibiotic RSLT#1 RSLT#2 RSLT#3 RSLT#4Amikacin SCefepime SCeftazidime SCiprofloxacin SGentamicin SImipenem SLevofloxacin SMeropenem SPiperacillin STicarcillin STobramycin S PATIENT NOT FASTINGP ERFORMED BY: [facility] Idgixl3832 [address] [facility] [id number] Bacteria identified Cx Nom (U) Final report Normal [facility] Work Phone: Comment on above: PATIENT NOT FASTINGP ERFORMED BY: [facility] Seyvle0123 [address] [facility] [id number] Amylase (06036)Ordered By: S ystem Webbing Weaver on 09-15-2012 Amylase [Catalytic activity/Vol] 79 U/L Normal 31-124 [facility] Work Phone: Comment on above: PATIENT NOT FASTINGP ERFORMED BY: [facility] Ukvpss5104 [address] [facility] [id number] CBC WITH MANUAL DIFF (58770) Ordered By: Senior Media Director on 09-15-2012 Basophils (Bld) [#/Vol] 0.0 {x10E3/uL} Normal 0.0-0.2 [facility] Work Phone: Comment on above: PATIENT NOT FASTINGP ERFORMED BY: [facility] Icieye0909 [facility] [id number] Information: [id number] Basophils/100 WBC (Bld) 0 % Normal 0-3 [facility] Work Phone: Comment on above: PATIENT NOT FASTINGP ERFORMED BY: [facility] Exltyq2412 [facility] [id number] Information: [id number] Eosinophils (Bld) [#/Vol] 0.1 {x10E3/uL} Normal 0.0-0.4 [facility] Work Phone: Comment on above: PATIENT NOT FASTINGP ERFORMED BY: [facility]6370 [facility] [id number] Information: [id number] Eosinophils/100 WBC (Bld) 1 % Normal 0-7 [facility] Work Phone: Comment on above: PATIENT NOT FASTINGP ERFORMED BY: [address] [id number] Information: [id number],G41314 Erythrocyte distribution width (RBC) [Ratio] 13.9 % Normal 12.3-15.4 [facility] Work Phone: Comment on above: PATIENT NOT FASTINGP ERFORMED BY: [address] [id number] Information: [id number] Hematocrit (Bld) [Volume fraction] 40.2 % Normal 34.0-46.6 [facility] Work Phone: Comment on above: PATIENT NOT FASTINGP ERFORMED BY: [place] [id number] [facility] [id number] Information: [id number],[id number] Hemoglobin (Bld) [Mass/Vol] 13.5 g/dL Normal 11.1-15.9 [facility] Work Phone: Comment on above: PATIENT NOT FASTINGP ERFORMED BY: [address] [id number] Information: [id number] Immature granulocytes (Bld) [#/Vol] 0.0 {x10E3/uL} Normal 0.0-0.1 [facility] Work Phone: Comment on above: PATIENT NOT FASTINGP ERFORMED BY: [address] [id number] Information: [id number] Immature granulocytes/100 WBC (Bld) 0 % Normal 0-2 [facility] Work Phone: Comment on above: PATIENT NOT FASTINGP ERFORMED BY: [address] [place] [id number] Information: [id number] Lymphocytes (Bld) [#/Vol] 1.1 {x10E3/uL} Normal 0.7-4.5 [facility] Work Phone: Comment on above: PATIENT NOT FASTINGP ERFORMED BY: [facility]6370 [facility] [id number] Information: [id number] Lymphocytes/100 WBC (Bld) 26 % Normal 14-46 [facility] Work Phone: Comment on above: PATIENT NOT FASTINGP ERFORMED BY: [place] 4566170 [facility] [id number] Information: [id number] MCH (RBC) [Entitic mass] 31.4 pg Normal 26.6-33.0 [facility] Internal Medicine Work Phone: Comment on above: PATIENT NOT FASTINGP ERFORMED BY: [facility]6370 [facility] [id number] Information: [id number] MCHC (RBC) [Mass/Vol] 33.6 g/dL Normal 31.5-35.7 [facility] Internal Medicine Work Phone: Comment on above: PATIENT NOT FASTINGP ERFORMED BY: [facility]6370 [facility] [id number] Information: [id number] MCV (RBC) [Entitic vol] 94 fL Normal 79-97 [facility] Work Phone: Comment on above: PATIENT NOT FASTINGP ERFORMED BY: [facility]6370 [facility] [id number] Information: [id number] Monocytes (Bld) [#/Vol] 0.6 {x10E3/uL} Normal 0.1-1.0 [facility] Internal Medicine Work Phone: Comment on above: PATIENT NOT FASTINGP ERFORMED BY: LabMelinda [place] [id number] [facility] [id number] Information: 606995,[id number] Monocytes/100 WBC (Bld) 14 % Abnormal 4-13 [facility] Work Phone: Comment on above: PATIENT NOT FASTINGP ERFORMED BY: BRE Carlos Quintero6370 [facility] [id number] Information: [id number] Neutrophils (Bld) [#/Vol] 2.5 {x10E3/uL} Normal 1.8-7.8 [facility] Work Phone: Comment on above: PATIENT NOT FASTINGP ERFORMED BY: BRE VeeCobaltazar GuajardoQeiaac0560 [facility] [id number] Information: [id number] Neutrophils/100 WBC (Bld) 59 % Normal 40-74 [facility] Internal Medicine Work Phone: Comment on above: PATIENT NOT FASTINGP ERFORMED BY: BRE VeeCobaltazar GuajardoLchsaq9953 [facility] [id number] Information: [id number] Platelets (Bld) [#/Vol] 357 {x10E3/uL} Normal 140-415 [facility] Internal Medicine Work Phone: Comment on above: PATIENT NOT FASTINGP ERFORMED BY: BRE Quintero6370 [facility] [id number] Information: 659255,[id number] RBC (Bld) [#/Vol] 4.30 {x10E6/uL} Normal 3.77-5.28 [facility] Internal Medicine Work Phone: Comment on above: PATIENT NOT FASTINGP ERFORMED BY: BRE LabCo Kdlglk6089 [facility] [id number] Information: 169421,F72074 WBC (Bld) [#/Vol] 4.3 {x10E3/uL} Normal 4.0-10.5 [facility] Internal Medicine Work Phone: Comment on above: PATIENT NOT FASTINGP ERFORMED BY: BRE [facility] Qcxgzu8795 [address] RoadDublin [place] [id number] Information: 414176,Z07886 Lipase (55397)Ordered By: Sy stem Webbing Weaver on 09-15-2012 Lipase [Catalytic activity/Vol] 38 U/L Normal 0-59 [facility] Work Phone: Comment on above: PATIENT NOT FASTINGP ERFORMED BY: CB [facility] Zwwdxx4959 [address] RoadDublin [place] [id number] METABOLIC PANEL, COMPREHENSI VE (15659)Ordered By: Senior Media Director on 09-15-2012 Albumin [Mass/Vol] 4.3 g/dL Normal 3.6-4.8 [facility] Internal Medicine Work Phone: Comment on above: PATIENT NOT FASTINGP ERFORMED BY: BRE [facility] Jxsocn7945 [address] RoadDublin [place] [id number] Albumin/Globulin [Mass ratio] 2.2 {ratio} Normal 1.1-2.5 [facility] Work Phone: Comment on above: PATIENT NOT FASTINGP ERFORMED BY: CB [facility] Briafs5146 [address] RoadDublin [place] [id number] ALP [Catalytic activity/Vol] 73 [iU]/L Normal 25-165 [facility] Work Phone: Comment on above: PATIENT NOT FASTINGP ERFORMED BY: CB [facility] Uiansx1970 [address] RoadDublin [place] [id number] ALT [Catalytic activity/Vol] 20 [iU]/L Normal 0-32 [facility] Work Phone: Comment on above: PATIENT NOT FASTINGP ERFORMED BY: CB [facility] Znxrvw7617 [address] RoadDublin [place] [id number] AST [Catalytic activity/Vol] 24 [iU]/L Normal 0-40 [facility] Work Phone: Comment on above: PATIENT NOT FASTINGP ERFORMED BY: CB [facility] Bgpyon1194 [address] RoadDublin [place] [id number] Bilirubin [Mass/Vol] 0.3 mg/dL Normal 0.0-1.2 Comp rehensive Internal Medicine Work Phone: Comment on above: PATIENT NOT FASTINGP ERFORMED BY: CB [facility] Yldgto7469 [address] RoadDublin [place] [id number] Calcium [Mass/Vol] 9.4 mg/dL Normal 8.6-10.2 [facility] Internal Medicine Work Phone: Comment on above: PATIENT NOT FASTINGP ERFORMED BY: CB [facility] Moyiws8826 [address] RoadDublin [place] [id number] Chloride [Moles/Vol] 103 mmol/L Normal 97-108 [facility] Work Phone: Comment on above: PATIENT NOT FASTINGP ERFORMED BY: CB [facility] Fbugvj2520 [address] RoadDublin [place] [id number] CO2 [Moles/Vol] 25 mmol/L Normal 20-32 [facility] Internal Medicine Work Phone: Comment on above: PATIENT NOT FASTINGP ERFORMED BY: CB [facility] Meavwo3971 [address] RoadDublin [place] [id number] Creatinine [Mass/Vol] 1.00 mg/dL Normal 0.57-1.00 [facility] Work Phone: Comment on above: PATIENT NOT FASTINGP ERFORMED BY: CB [facility] Oippxf4342 [address] RoadDublin [place] [id number] GFR/1.73 sq M predicted among blacks CKD-EPI (S/P/Bld) [Vol rate/Area] 70 mL/min/1.73 Normal [facility] Work Phone: Comment on above: PATIENT NOT FASTINGP ERFORMED BY: CB [facility] Dykvch9899 [address] RoadDublin [place] [id number] GFR/1.73 sq M predicted among non-blacks CKD-EPI (S/P/Bld) [Vol rate/Area] 61 mL/min/1.73 Normal [facility] Work Phone: Comment on above: PATIENT NOT FASTINGP ERFORMED BY: CB [facility] Halzqq8016 [address] RoadDublin [place] [id number] Globulin (S) [Mass/Vol] 2.0 g/dL Normal 1.5-4.5 [facility] Internal Medicine Work Phone: Comment on above: PATIENT NOT FASTINGP ERFORMED BY: CB [facility] Rfikmx1680 [address] RoadDublin [place] [id number] Glucose [Mass/Vol] 92 mg/dL Normal 65-99 [facility] Internal Medicine Work Phone: Comment on above: PATIENT NOT FASTINGP ERFORMED BY: CB [facility] Qycnnd6629 [address] RoadNovant Health Fors[facility] Centerin [place] [id number] Potassium [Moles/Vol] 4.4 mmol/L Normal 3.5-5.2 [facility] Internal Medicine Work Phone: Comment on above: PATIENT NOT FASTINGP ERFORMED BY: CB [facility] Irtvec4390 [address] RoadDuin [place] [id number] Protein [Mass/Vol] 6.3 g/dL Normal 6.0-8.5 [facility] Internal Medicine Work Phone: Comment on above: PATIENT NOT FASTINGP ERFORMED BY: CB [facility] Bujabi76[address] [facility]in [place] [id number] Sodium [Moles/Vol] 142 mmol/L Normal 134-144 [facility] Internal Medicine Work Phone: Comment on above: PATIENT NOT FASTINGP ERFORMED BY: CB [facility] Mbcvgh0601 [address] [facility] [id number] Urea nitrogen [Mass/Vol] 16 mg/dL Normal 8-27 [facility] Internal Medicine Work Phone: Comment on above: PATIENT NOT FASTINGP ERFORMED BY: CB [facility] Hevhmn4182 [address] [facility]in [place] [id number] Urea nitrogen/Creatinine [Mass ratio] 16 mg/mg Normal 11-26 [facility] Internal Medicine Work Phone: Comment on above: PATIENT NOT FASTINGP ERFORMED BY: CB [facility] Eqgnwb1603 [address]Dublin [place] [id number] URINE SUNNY CULTURE-IDENTIFICA [place] (45701)Ordered By: Senior Media Director on 09-15-2012 Bacteria identified Cx Nom (U) Citrobacter freundii Normal Comprehensi ve Internal Medicine Work Phone: Comment on above: 100 Colonies/mL . PATIENT NOT FASTINGP ERFORMED BY: [employer] Wcjxcg6766 [facility] [id number] Information: [id number] Bacteria identified Cx Nom (U) Final report Normal [facility] Work Phone: Comment on above: PATIENT NOT FASTINGP ERFORMED BY: AvaamoRanken [facility] Jcsiws5804 [facility] [id number] Information: [id number] Other Antibiotic [Susc] MIHEAD Normal [facility] Work Phone: Comment on above: S = Susceptibl e; I = Intermediate; R = Resistant P = Positive; N = Negative MICS are expressed in micrograms per mL Antibiotic RSLT#1 RSLT#2 RSLT#3 RSLT#4Amoxicillin/Clavulanic Acid RCefazolin RCefepime SCeftriaxone SCefuroxime SCephalothin RCiprofloxacin SErtapenem SGentamicin SImipenem SLevofloxacin SNitrofurantoin SPiperacillin STetracycline STobramycin STrimethoprim/Sulfa S PATIENT NOT FASTINGP ERFORMED BY: [employer] Ivvfvc2128 [facility] [id number] Information: I14961 Urinalysis, Office (51383)Or dered By: Mary Bush on 09-15-2012 Bilirubin Ql (U) Negative Normal Comprehe nsive Internal Medicine Work Phone: Glucose Test strip (U) [Mass/Vol] Negative Normal [facility] Work Phone: Hemoglobin Ql (U) Negative Normal Compreh ensive Internal Medicine Work Phone: Ketones Ql (U) Negative Normal Comprehens cheri Internal Medicine Work Phone: Leukocyte esterase Test strip Ql (U) Negative Normal [facility] Work Phone: Nitrite Ql (U) Negative Normal Comprehens cheri Internal Medicine Work Phone: pH (U) 7.0 [pH] Normal [facility] Work Phone: Protein Ql (U) Negative Normal Comprehens cheri Internal Medicine Work Phone: Specific gravity (U) [Rel density] 1.020 1 Normal [facility] Work Phone: Urobilinogen (24H U) [Mass/Time] Normal Normal [facility] Work Phone: Rapid Strep Test, Office ([phone])Ordered By: Anaya Brown on 05-08-2012 S. pyogenes Ag IA Ql (Unsp spec) Negative Normal [facility] Work Phone: Throat Culture (15716)Ordere d By: Senior Media Director on 05-08-2012 Bacteria identified Respiratory culture Nom (Unsp spec) RRF Normal [facility] Work Phone: Comment on above: Routine respiratory venita PATIENT NOT FASTINGP ERFORMED BY: CB [facility] Tmrzae9153 Schwartz RoadDuUNC Health [id number] Information: SRC:THRT T00249 Bacteria identified Respiratory culture Nom (Unsp spec) Final report Normal [facility] Work Phone: Comment on above: PATIENT NOT FASTINGP ERFORMED BY: CB [facility] Yfatdd8284 Schwartz RoadDuUNC Health [id number] Information: SRC:THRT T09550 METABOLIC PANEL, COMPREHENSI VE (87485)Ordered By: Senior Media Director on 03-25-2012 Albumin [Mass/Vol] 4.4 g/dL Normal 3.6-4.8 [facility] Work Phone: Comment on above: PATIENT NOT FASTINGP ERFORMED BY: CB [facility] Ldhtcx2427 [address] RoadDublin [place] [id number] Information: 073771,G79240 Albumin/Globulin [Mass ratio] 2.2 {ratio} Normal 1.1-2.5 [facility] Work Phone: Comment on above: PATIENT NOT FASTINGP ERFORMED BY: CB [facility] Cghwuq5149 [address] RoadDublin [place] [id number] Information: 939447,Y53705 ALP [Catalytic activity/Vol] 78 [iU]/L Normal 25-165 [facility] Work Phone: Comment on above: PATIENT NOT FASTINGP ERFORMED BY: BRE [facility] Lzoflm3319 [address] Roadblin [place] [id number] Information: 639093,P47806 ALT [Catalytic activity/Vol] 21 [iU]/L Normal 0-40 [facility] Work Phone: Comment on above: PATIENT NOT FASTINGP ERFORMED BY: [facility] Svyhaz9555 [address] [facility]in [place] [id number] Information: 473703,[id number] AST [Catalytic activity/Vol] 25 [iU]/L Normal 0-40 [facility] Work Phone: Comment on above: PATIENT NOT FASTINGP ERFORMED BY: LabSchool[facility]6370 [facility] [id number] Information: 382807,C17226 Bilirubin [Mass/Vol] 0.3 mg/dL Normal 0.0-1.2 [facility] Work Phone: Comment on above: PATIENT NOT FASTINGP ERFORMED BY: LabCo Efmmpl7238 [facility] [id number] Information: 747448,M44062 Calcium [Mass/Vol] 9.3 mg/dL Normal 8.6-10.2 [facility] Internal Medicine Work Phone: Comment on above: PATIENT NOT FASTINGP ERFORMED BY: [facility] Jrrlzd9963 [address] [facility]in [place] [id number] Information: 130745,R73719 Chloride [Moles/Vol] 101 mmol/L Normal 97-108 [facility] Work Phone: Comment on above: PATIENT NOT FASTINGP ERFORMED BY: [facility] Nkybge6581 [address] RoadNovant Health Forsyth Medical Centerin [place] [id number] Information: 900950,J01859 CO2 [Moles/Vol] 22 mmol/L Normal 20-32 [facility] Internal Medicine Work Phone: Comment on above: PATIENT NOT FASTINGP ERFORMED BY: CB [facility] Jbpoyc4105 [address] Roadblin [place] [id number] Information: 540945,S00682 Creatinine [Mass/Vol] 0.99 mg/dL Normal 0.57-1.00 [facility] Internal Medicine Work Phone: Comment on above: PATIENT NOT FASTINGP ERFORMED BY: CB [facility] Dtcxej1032 Schwartz RoadNovant Health Forsyth Medical Centerin [place] [id number] Information: 017384,J08545 GFR/1.73 sq M predicted among blacks CKD-EPI (S/P/Bld) [Vol rate/Area] 71 mL/min/1.73 Normal [facility] Work Phone: Comment on above: PATIENT NOT FASTINGP ERFORMED BY: CB [facility] Lflpcb6030 [facility] [id number] Information: 970417,F12871 GFR/1.73 sq M predicted among non-blacks CKD-EPI (S/P/Bld) [Vol rate/Area] 62 mL/min/1.73 Normal [facility] Work Phone: Comment on above: PATIENT NOT FASTINGP ERFORMED BY: CB [facility] Qjmuyw5572 [facility] [id number] Information: 434963,V69230 Globulin (S) [Mass/Vol] 2.0 g/dL Normal 1.5-4.5 [facility] Work Phone: Comment on above: PATIENT NOT FASTINGP ERFORMED BY: CB [facility] Irzjvw8080 [address] [facility]in [place] [id number] Information: 320104,H52394 Glucose [Mass/Vol] 85 mg/dL Normal 65-99 [facility] Internal Medicine Work Phone: Comment on above: PATIENT NOT FASTINGP ERFORMED BY: CB [facility] Epdifm2034 [facility] [id number] Information: 074093,M21422 Potassium [Moles/Vol] 4.4 mmol/L Normal 3.5-5.2 [facility] Internal Medicine Work Phone: Comment on above: PATIENT NOT FASTINGP ERFORMED BY: BRE [facility] Mdhtcp6944 [facility] [id number] Information: 472266,M97900 Protein [Mass/Vol] 6.4 g/dL Normal 6.0-8.5 [facility] Internal Medicine Work Phone: Comment on above: PATIENT NOT FASTINGP ERFORMED BY: LabMelinda [place] 5421170 [facility] [id number] Information: 036528,Q52272 Sodium [Moles/Vol] 139 mmol/L Normal 134-144 [facility] Internal Medicine Work Phone: Comment on above: PATIENT NOT FASTINGP ERFORMED BY: LabMelinda [place] 5421170 [facility] [id number] Information: 328450,W06792 Urea nitrogen [Mass/Vol] 19 mg/dL Normal 8-27 [facility] Internal Medicine Work Phone: Comment on above: PATIENT NOT FASTINGP ERFORMED BY: LabMel[place] 5421170 [facility] [id number] Information: 697020,D76352 Urea nitrogen/Creatinine [Mass ratio] 19 mg/mg Normal 11-26 [facility] Internal Medicine Work Phone: Comment on above: PATIENT NOT FASTINGP ERFORMED BY: LabCoYolanda Ville 9859170 [facility] [id number] Information: 517561,Z48987 T3, FREE (TRIDOTHYRONINE) (9 6552)Ordered By: Senior Media Director on 03-25-2012 Free T3 [Mass/Vol] 2.5 pg/mL Normal 2.0-4.4 [facility] Internal Medicine Work Phone: Comment on above: PATIENT NOT FASTINGP ERFORMED BY: LabCoYolanda Ville 9859170 [facility] CenterD[facility] [place] [id number] T4, FREE (THYROXINE) (14232) Ordered By: Senior Media Director on 03-25-2012 Free T4 [Mass/Vol] 1.07 ng/dL Normal 0.82-1.77 Compre [facility] Internal Medicine Work Phone: Comment on above: PATIENT NOT FASTINGP ERFORMED BY: [facility] Xufodq6008 [address] [facility]in [place] [id number] TSH (93655)Ordered By: Systcheyenne m Webbing Weaver on 03-25-2012 TSH Qn 1.790 {uIU/mL} Normal 0.450-4.50 0 [facility] Work Phone: Comment on above: PATIENT NOT FASTINGP ERFORMED BY: BRE [facility] Esouuu0987 [address] [facility]in [place] [id number] URINALYSIS, W/ MICRO (57303) Ordered By: Senior Media Director on 03-25-2012 Appearance (U) Clear Normal Comprehens cheri Internal Medicine Work Phone: Comment on above: PATIENT NOT FASTINGP ERFORMED BY: BRE [facility] Tgnhko5572 [address] [facility]in [place] [id number] Information: D08287 Bilirubin Ql (U) Negative Normal Comprehe nsive Internal Medicine Work Phone: Comment on above: PATIENT NOT FASTINGP ERFORMED BY: [facility] Tpmvrt7021 [facility] [id number] Information: X86039 Color (U) Yellow Normal [facility] Work Phone: Comment on above: PATIENT NOT FASTINGP ERFORMED BY: [facility] Tcboga4020 [address] [facility]in [place] [id number] Information: S83092 Glucose Ql (U) Negative Normal Comprehens cheri Internal Medicine Work Phone: Comment on above: PATIENT NOT FASTINGP ERFORMED BY: BRE [facility] Owsmpq9618 Schwartz RoadNovant Health Forsyth Medical Centerin [place] [id number] Information: A86021 Hemoglobin Ql (U) Negative Normal Compreh ensive Internal Medicine Work Phone: Comment on above: PATIENT NOT FASTINGP ERFORMED BY: BRE [facility] Vmadlx4062 [facility] [id number] Information: B99923 Ketones Ql (U) Negative Normal Comprehens cheri Internal Medicine Work Phone: Comment on above: PATIENT NOT FASTINGP ERFORMED BY: BRE [facility] Jknepx9370 [facility] [id number] Information: F08370 Leukocyte esterase Test strip Ql (U) Negative Normal [facility] Work Phone: Comment on above: PATIENT NOT FASTINGP ERFORMED BY: BRE [facility] Sxqhuy6994 [facility] [id number] Information: V43255 Microscopic observation LM Nom (Urine sed) See below: Normal [facility] Work Phone: Comment on above: PATIENT NOT FASTINGP ERFORMED BY: BRE [facility] Qsjgue2958 [facility] [id number] Information: W60304 Microscopic observation LM Nom (Urine sed) MICRON Normal [facility] Work Phone: Comment on above: Microscopic follows if indicated. PATIENT NOT FASTINGP ERFORMED BY: BRE [facility] Djfnnl1609 [facility] [id number] Information: E67064 Nitrite Ql (U) Negative Normal Comprehens cheri Internal Medicine Work Phone: Comment on above: PATIENT NOT FASTINGP ERFORMED BY: BRE [facility] Qecmto2572 [facility] [id number] Information: A59582 pH (U) 7.5 [pH] Normal 5.0-7.5 [facility] Work Phone: Comment on above: PATIENT NOT FASTINGP ERFORMED BY: BRE [facility] Gcwige2444 [facility] [id number] Information: D84621 Protein Ql (U) Negative Normal Comprehens cheri Internal Medicine Work Phone: Comment on above: PATIENT NOT FASTINGP ERFORMED BY: BRE [facility] Qeygel1685 [facility] [id number] Information: Y48704 Specific gravity (U) [Rel density] 1.016 1 Normal 1.005-1.03 0 [facility] Work Phone: Comment on above: PATIENT NOT FASTINGP ERFORMED BY: [place] 4566170 [facility] [id number] Information: Z80433 Urobilinogen Test strip (U) [Mass/Vol] 0.2 mg/dL Normal 0.0-1.9 Comprehensi Internal Medicine Work Phone: Comment on above: PATIENT NOT FASTINGP ERFORMED BY: LabMelinda [place] 5421170 [facility] [id number] Information: E62189 URINE SUNNY CULTURE (KAYDEN COL COUNT) (97849)Ordered By: Senior Media Director on 03-25-2012 Bacteria identified Cx Nom (U) NG36 Normal [facility] Work Phone: Comment on above: No growth in 36 - 48 hours. PATIENT NOT FASTINGP ERFORMED BY: [facility]6370 [facility] [id number] Bacteria identified Cx Nom (U) Final report Normal [facility] Work Phone: Comment on above: PATIENT NOT FASTINGP ERFORMED BY: [facility]School[facility]6370 [facility] [id number] SUNNY CULTURE-OTHER (29306)Ord ered By: Senior Media Director on 09-12-2011 Bacteria identified Respiratory culture Nom (Unsp spec) RRF Normal [facility] Work Phone: Comment on above: Routine respiratory venita PATIENT NOT FASTINGP ERFORMED BY: LabMel[place] 5421170 [facility] [id number] Information: SRC:THRT Y99103 Bacteria identified Respiratory culture Nom (Unsp spec) Final report Normal [facility] Work Phone: Comment on above: PATIENT NOT FASTINGP ERFORMED BY: Lab[place] 5421170 [facility] [id number] Information: SRC:THRT W47142 Rapid Strep Test, Office (88 010)Ordered By: Isabella Ortiz on 09-12-2011 S. pyogenes Ag IA Ql (Unsp spec) Negative Normal [facility] Work Phone: Thin prep Pap (90071)Ordered By: Senior Media Director on 07-15-2011 Microscopic observation Other stain Nom (Unsp spec) . Normal Comprehens cheri Internal Medicine Work Phone: Comment on above: Source.............V aginalLMP / Prev Treat...HystNo. of containers..01 CYTYC Thin Prep VialPERFORMED BY: [employer] Tautwumcsx[address] [id number] Information: [id number] Pathology report final diagnosis Narrative SPRCS Normal [facility] Work Phone: Comment on above: NEGATIVE FOR INTRAEP ITHELIAL LESION AND MALIGNANCY.CELLULAR CHANGES ASSOCIATED WITH ATROPHY ARE PRESENT.Satisfactory for evaluation. No endocervical cells are present. This isconsistent with a history of hysterectomy.V72.31 ; Routine gynecological examinationMatthew A Charanjit Overlock Operator (ASCP) Source.............V aginalLMP / Prev Treat...HystNo. of containers..01 CYTYC Thin Prep VialPERFORMED BY: Contractually[address] [id number] Information: Z43367 [id number] Thin prep Pap (52479) PAPSMR Normal [facility] prehensive Internal Medicine Work Phone: Comment on above: The Pap smear is a s creening test designed to aid in the detection ofpremalignant and malignant conditions of the uterine cervix. It is not adiagnostic procedure and should not be used as the sole means of detectingcervical cancer. Both false-positive and false-negative reports do occur. .This liquid based ThinPrep(R) pap test was screened with theuse of an image guided system.The HPV DNA reflex criteria were not met with this specimen resulttherefore, no HPV testing was performed. . Source.............V aginalLMP / Prev Treat...HystNo. of containers..01 CYTYC Thin Prep VialPERFORMED BY: [address] [facility]acarH[facility] the University [facility] [id number] Information: [id number] CBC WITH MANUAL DIFF (35067) Ordered By: Senior Media Director on 06-21-2011 Basophils (Bld) [#/Vol] 0.0 {x10E3/uL} Normal 0.0-0.2 [facility] Work Phone: Comment on above: PATIENT NOT FASTINGP ERFORMED BY: [place] 4566170 [facility] [id number] Information: 023249,P69723 Basophils/100 WBC (Bld) 1 % Normal 0-3 [facility] Work Phone: Comment on above: PATIENT NOT FASTINGP ERFORMED BY: [address] [id number] Information: 306777,X74809 Eosinophils (Bld) [#/Vol] 0.1 {x10E3/uL} Normal 0.0-0.4 [facility] Work Phone: Comment on above: PATIENT NOT FASTINGP ERFORMED BY: [place] 4566170 [facility] [id number] Information: 970346,W65139 Eosinophils/100 WBC (Bld) 3 % Normal 0-7 [facility] Work Phone: Comment on above: PATIENT NOT FASTINGP ERFORMED BY: [place] 4566170 [facility] [id number] Information: 487841,J16861 Erythrocyte distribution width (RBC) [Ratio] 13.2 % Normal 11.7-15.0 [facility] Work Phone: Comment on above: PATIENT NOT FASTINGP ERFORMED BY: BRE BaxterCo Fldohu9418 [facility] [id number] Information: 047432,V62807 Hematocrit (Bld) [Volume fraction] 41.7 % Normal 34.0-44.0 [facility] Work Phone: Comment on above: PATIENT NOT FASTINGP ERFORMED BY: BRE BaxterCoYolanda Ville 9859170 [facility] [id number] Information: 447490,J43048 Hemoglobin (Bld) [Mass/Vol] 14.1 g/dL Normal 11.5-15.0 Comprehensive Internal Medicine Work Phone: Comment on above: PATIENT NOT FASTINGP ERFORMED BY: BRE Guajardolin6370 [facility] [id number] Information: [id number] Immature granulocytes (Bld) [#/Vol] 0.0 {x10E3/uL} Normal 0.0-0.1 [facility] Work Phone: Comment on above: PATIENT NOT FASTINGP ERFORMED BY: BRE BaxterMelinda V[place] [id number] [facility] [id number] Information: [id number] Immature granulocytes/100 WBC (Bld) 0 % Normal 0-2 [facility] Work Phone: Comment on above: PATIENT NOT FASTINGP ERFORMED BY: LabCoYolanda Ville 9859170 [facility] [id number] Information: [id number] Lymphocytes (Bld) [#/Vol] 1.0 {x10E3/uL} Normal 0.7-4.5 [facility] Work Phone: Comment on above: PATIENT NOT FASTINGP ERFORMED BY: BRE LabCo Hihhpl6387 [facility] [id number] Information: [id number] Lymphocytes/100 WBC (Bld) 28 % Normal 14-46 [facility] Work Phone: Comment on above: PATIENT NOT FASTINGP ERFORMED BY: BRE [facility]6370 [facility] [id number] Information: [id number] MCH (RBC) [Entitic mass] 32.9 pg Normal 27.0-34.0 [facility] Internal Medicine Work Phone: Comment on above: PATIENT NOT FASTINGP ERFORMED BY: [address] [id number] Information: [id number] MCHC (RBC) [Mass/Vol] 33.8 g/dL Normal 32.0-36.0 [facility] Internal Medicine Work Phone: Comment on above: PATIENT NOT FASTINGP ERFORMED BY: BRE [facility]eeRanken [facility] Txlpda2277 [facility] [id number] Information: [id number],[id number] MCV (RBC) [Entitic vol] 97 fL Normal 80-98 [facility] Work Phone: Comment on above: PATIENT NOT FASTINGP ERFORMED BY: [place] 4566170 [facility] [id number] Information: [id number] Monocytes (Bld) [#/Vol] 0.4 {x10E3/uL} Normal 0.1-1.0 [facility] Internal Medicine Work Phone: Comment on above: PATIENT NOT FASTINGP ERFORMED BY: [place] 4566170 [facility] [id number] Information: [id number] Monocytes/100 WBC (Bld) 10 % Normal 4-13 [facility] Work Phone: Comment on above: PATIENT NOT FASTINGP ERFORMED BY: [place] 4566170 [facility] [id number] Information: 266846,[id number] Neutrophils (Bld) [#/Vol] 2.0 {x10E3/uL} Normal 1.8-7.8 [facility] Work Phone: Comment on above: PATIENT NOT FASTINGP ERFORMED BY: BRE Quintero6370 [facility] [id number] Information: 086507,[id number] Neutrophils/100 WBC (Bld) 58 % Normal 40-74 [facility] Internal Medicine Work Phone: Comment on above: PATIENT NOT FASTINGP ERFORMED BY: BRE Guajardolin6370 [facility] [id number] Information: [id number],[id number] Platelets (Bld) [#/Vol] 271 {x10E3/uL} Normal 140-415 [facility] Internal Medicine Work Phone: Comment on above: PATIENT NOT FASTINGP ERFORMED BY: BRE Epseranza Pttckd4278 [facility] [id number] Information: [id number] RBC (Bld) [#/Vol] 4.29 {x10E6/uL} Normal 3.80-5.10 [facility] Internal Medicine Work Phone: Comment on above: PATIENT NOT FASTINGP ERFORMED BY: BRE Esperanza Nuxjyc4571 [facility] [id number] Information: [id number],[id number] WBC (Bld) [#/Vol] 3.5 {x10E3/uL} Abnormal 4.0-10.5 [facility] Internal Medicine Work Phone: Comment on above: PATIENT NOT FASTINGP ERFORMED BY: BRE Esperanza Cnfqtt6620 [facility] [id number] Information: [id number] METABOLIC PANEL, COMPREHENSI VE (07198)Ordered By: Senior Media Director on 06-21-2011 Albumin [Mass/Vol] 4.4 g/dL Normal 3.6-4.8 [facility] Internal Medicine Work Phone: Comment on above: PATIENT NOT FASTINGP ERFORMED BY: BRE Esperanza Zpdair9662 [facility] [id number] Albumin/Globulin [Mass ratio] 2.3 {ratio} Normal 1.1-2.5 [facility] Internal Medicine Work Phone: Comment on above: PATIENT NOT FASTINGP ERFORMED BY: BRE [facility] Vttziq9504 [address] RoadDublin [place] [id number] ALP [Catalytic activity/Vol] 92 [iU]/L Normal 25-165 [facility] Work Phone: Comment on above: PATIENT NOT FASTINGP ERFORMED BY: CB [facility] Duacgi0332 [address] RoadDublin [place] [id number] ALT [Catalytic activity/Vol] 13 [iU]/L Normal 0-40 [facility] Work Phone: Comment on above: PATIENT NOT FASTINGP ERFORMED BY: CB [facility] Nmrcrt9968 [address] RoadDublin [place] [id number] AST [Catalytic activity/Vol] 20 [iU]/L Normal 0-40 [facility] Work Phone: Comment on above: PATIENT NOT FASTINGP ERFORMED BY: BRE [facility] Ipzmrt6864 [address] RoadDublin [place] [id number] Bilirubin [Mass/Vol] 0.3 mg/dL Normal 0.0-1.2 Comp rehensive Internal Medicine Work Phone: Comment on above: PATIENT NOT FASTINGP ERFORMED BY: BRE [facility] Wfqfzp3283 [address] RoadDublin [place] [id number] Calcium [Mass/Vol] 9.6 mg/dL Normal 8.6-10.2 [facility] Internal Medicine Work Phone: Comment on above: PATIENT NOT FASTINGP ERFORMED BY: CB [facility] Nyiaun0906 [address] RoadDublin [place] [id number] Chloride [Moles/Vol] 106 mmol/L Normal 97-108 Comp rehensive Internal Medicine Work Phone: Comment on above: PATIENT NOT FASTINGP ERFORMED BY: CB [facility] Oehnht0867 [address] RoadDublin [place] [id number] CO2 [Moles/Vol] 25 mmol/L Normal 20-32 Comprehen [facility] Internal Medicine Work Phone: Comment on above: PATIENT NOT FASTINGP ERFORMED BY: CB [facility] Jtgfde2242 [address] RoadDublin [place] [id number] Creatinine [Mass/Vol] 1.08 mg/dL Abnormal 0.57-1.00 [facility] prehensive Internal Medicine Work Phone: Comment on above: PATIENT NOT FASTINGP ERFORMED BY: LabCo Cgsaes2424 [facility] [id number] GFR/1.73 sq M predicted among blacks MDRD (S/P/Bld) [Vol rate/Area] 64 mL/min/{1.73_m2} Normal Comprehensiv e Internal Medicine Work Phone: Comment on above: Note: A persistent e GFR <60 mL/min/1.73 m2 (3 months or more) mayindicate chronic kidney disease. An eGFR >59 mL/min/1.73 m2 with anelevated urine protein also may indicate chronic kidney disease.Calculated using CKD-EPI formula. PATIENT NOT FASTINGP ERFORMED BY: [facility]School[facility]6370 [facility] [id number] GFR/1.73 sq M predicted among non-blacks CKD-EPI (S/P/Bld) [Vol rate/Area] 56 mL/min/1.73 Abnormal [facility] Work Phone: Comment on above: PATIENT NOT FASTINGP ERFORMED BY: LabRanken [facility] Zcrvoj9482 [facility] [id number] Globulin (S) [Mass/Vol] 1.9 g/dL Normal 1.5-4.5 [facility] Internal Medicine Work Phone: Comment on above: PATIENT NOT FASTINGP ERFORMED BY: LabCo Zdfkyl1715 [facility] [id number] Glucose [Mass/Vol] 88 mg/dL Normal 65-99 [facility] Internal Medicine Work Phone: Comment on above: PATIENT NOT FASTINGP ERFORMED BY: LabRanken [facility] Xtyprw5880 [facility] [id number] Potassium [Moles/Vol] 4.2 mmol/L Normal 3.5-5.2 [facility] prehensive Internal Medicine Work Phone: Comment on above: PATIENT NOT FASTINGP ERFORMED BY: CB [facility] Vhttuk8021 [address] RoadDublin [place] [id number] Protein [Mass/Vol] 6.3 g/dL Normal 6.0-8.5 [facility] Internal Medicine Work Phone: Comment on above: PATIENT NOT FASTINGP ERFORMED BY: CB [facility] Fnttxb7109 [address] RoadDublin [place] [id number] Sodium [Moles/Vol] 142 mmol/L Normal 135-145 [facility] Internal Medicine Work Phone: Comment on above: PATIENT NOT FASTINGP ERFORMED BY: CB [facility] Rdaday4291 [address] RoadDublin [place] [id number] Urea nitrogen [Mass/Vol] 17 mg/dL Normal 8-27 [facility] Internal Medicine Work Phone: Comment on above: PATIENT NOT FASTINGP ERFORMED BY: CB [facility] Xlskdd3906 [address] RoadDublin [place] [id number] Urea nitrogen/Creatinine [Mass ratio] 16 mg/mg Normal 11- [facility] Internal Medicine Work Phone: Comment on above: PATIENT NOT FASTINGP ERFORMED BY: CB [facility] Kucqmv5728 Schwartz RoadDublin [place] [id number] Vitamin D Hydroxy (12688)Ord ered By: Senior Media Director on 06-21-2011 Calcitriol [Mass/Vol] 49.3 ng/mL Normal 32.0-100.0 [facility] Internal Medicine Work Phone: Comment on above: Effective Novembe r 2010 Vitamin D, 25-Hydroxy reference intervals will be changing to 30-100. .Recent studies consider the lower limit of 32.0 ng/mL to be athreshold for optimal health.Abelardo HODGES. J Nutr. 2005 Sep;135(2):317-22. PATIENT NOT FASTINGP ERFORMED BY: CB [facility] Wbaofz9256 Schwartz RoadDublin [place] [id number] CBC WITH MANUAL DIFF (45245) Ordered By: Senior Media Director on 03-04-2011 Basophils (Bld) [#/Vol] 0.0 {x10E3/uL} Normal 0.0-0.2 [facility] Work Phone: Comment on above: PATIENT WAS FASTINGP ERFORMED BY: VeeMelinda [place] 5421170 [facility] [id number] Information: 512990,[id number] Basophils/100 WBC (Bld) 1 % Normal 0-3 [facility] Work Phone: Comment on above: PATIENT WAS FASTINGP ERFORMED BY: [address] [id number] Information: 406543,[id number] Eosinophils (Bld) [#/Vol] 0.1 {x10E3/uL} Normal 0.0-0.4 [facility] Work Phone: Comment on above: PATIENT WAS FASTINGP ERFORMED BY: [address] [id number] Information: 269352,M56016 Eosinophils/100 WBC (Bld) 3 % Normal 0-7 [facility] Work Phone: Comment on above: PATIENT WAS FASTINGP ERFORMED BY: [address] [id number] Information: 556208,F35867 Erythrocyte distribution width (RBC) [Ratio] 13.2 % Normal 11.7-15.0 [facility] Work Phone: Comment on above: PATIENT WAS FASTINGP ERFORMED BY: [address] [id number] Information: [id number] Hematocrit (Bld) [Volume fraction] 41.8 % Normal 34.0-44.0 [facility] Work Phone: Comment on above: PATIENT WAS FASTINGP ERFORMED BY: [address] [id number] Information: 226147,[id number] Hemoglobin (Bld) [Mass/Vol] 13.8 g/dL Normal 11.5-15.0 [facility] Work Phone: Comment on above: PATIENT WAS FASTINGP ERFORMED BY: [place] 4566170 [facility] [id number] Information: 706972,C59121 Immature granulocytes (Bld) [#/Vol] 0.0 {x10E3/uL} Normal 0.0-0.1 [facility] Work Phone: Comment on above: PATIENT WAS FASTINGP ERFORMED BY: [address] [id number] Information: 402706,[id number] Immature granulocytes/100 WBC (Bld) 0 % Normal 0-2 [facility] Work Phone: Comment on above: Please note refere nce interval change PATIENT WAS FASTINGP ERFORMED BY: [address] [id number] Information: 631853,P38549 Lymphocytes (Bld) [#/Vol] 1.3 {x10E3/uL} Normal 0.7-4.5 [facility] Work Phone: Comment on above: PATIENT WAS FASTINGP ERFORMED BY: [facility]6370 [facility] [id number] Information: 639487,G95336 Lymphocytes/100 WBC (Bld) 31 % Normal 14-46 [facility] Work Phone: Comment on above: PATIENT WAS FASTINGP ERFORMED BY: [place] 4566170 [facility] [id number] Information: 592146,[id number] MCH (RBC) [Entitic mass] 32.5 pg Normal 27.0-34.0 [facility] Work Phone: Comment on above: PATIENT WAS FASTINGP ERFORMED BY: [place] 4566170 [facility] [id number] Information: [id number],[id number] MCHC (RBC) [Mass/Vol] 33.0 g/dL Normal 32.0-36.0 [facility] Work Phone: Comment on above: PATIENT WAS FASTINGP ERFORMED BY: BRE Mata Shrsyu5004 [facility] [id number] Information: 519714,R95941 MCV (RBC) [Entitic vol] 98 fL Normal 80-98 [facility] Work Phone: Comment on above: PATIENT WAS FASTINGP ERFORMED BY: [address] [id number] Information: 175887,[id number] Monocytes (Bld) [#/Vol] 0.4 {x10E3/uL} Normal 0.1-1.0 [facility] Internal Medicine Work Phone: Comment on above: PATIENT WAS FASTINGP ERFORMED BY: [address] [id number] Information: [id number] Monocytes/100 WBC (Bld) 9 % Normal 4-13 [facility] Work Phone: Comment on above: PATIENT WAS FASTINGP ERFORMED BY: Vee[address] [id number] Information: 048765,F71536 Neutrophils (Bld) [#/Vol] 2.3 {x10E3/uL} Normal 1.8-7.8 [facility] Work Phone: Comment on above: PATIENT WAS FASTINGP ERFORMED BY: [place] 4566170 [facility] [id number] Information: 002126,[id number] Neutrophils/100 WBC (Bld) 56 % Normal 40-74 [facility] Work Phone: Comment on above: PATIENT WAS FASTINGP ERFORMED BY: [place] 4566170 [facility] [id number] Information: 436101,[id number] Platelets (Bld) [#/Vol] 265 {x10E3/uL} Normal 140-415 [facility] Work Phone: Comment on above: PATIENT WAS FASTINGP ERFORMED BY: BRE Quintero6370 [facility] [id number] Information: 515086,[id number] RBC (Bld) [#/Vol] 4.25 {x10E6/uL} Normal 3.80-5.10 [facility] Internal Medicine Work Phone: Comment on above: PATIENT WAS FASTINGP ERFORMED BY: BRE BaxterCobaltazar GuajardoVgxkgg9857 [facility] [id number] Information: 527784,V03074 WBC (Bld) [#/Vol] 4.1 {x10E3/uL} Normal 4.0-10.5 [facility] Internal Medicine Work Phone: Comment on above: PATIENT WAS FASTINGP ERFORMED BY: BRE Quintero6370 [facility] [id number] Information: [id number],[id number] LIPID PANEL (77464)Ordered B y: Senior Media Director on 03-04-2011 Cholesterol [Mass/Vol] 305 mg/dL Abnormal 100-199 [facility] Work Phone: Comment on above: PATIENT WAS FASTINGP ERFORMED BY: BRE Quintero6370 [facility] [id number] Cholesterol in HDL [Mass/Vol] 67 mg/dL Normal [facility] Work Phone: Comment on above: According to ATP-III Guidelines, HDL-C >59 mg/dL is considered anegative risk factor for CHD. PATIENT WAS FASTINGP ERFORMED BY: BRE [facility] Xecfnp3144 [facility] [id number] Cholesterol in LDL [Mass/Vol] 199 mg/dL Abnormal 0-99 [facility] Work Phone: Comment on above: PATIENT WAS FASTINGP ERFORMED BY: BRE [facility] Fmjpje6252 [facility] [id number] Cholesterol in LDL/Cholesterol in HDL [Mass ratio] 3.0 {ratio_units} Normal 0.0-3.2 [facility] Work Phone: Comment on above: PATIENT WAS FASTINGP ERFORMED BY: RBE LabCobaltazar Hpejde5698 [address] RoadDublin [place] [id number] Cholesterol in VLDL [Mass/Vol] 39 mg/dL Normal 5-40 [facility] Work Phone: Comment on above: PATIENT WAS FASTINGP ERFORMED BY: BRE [facility] Lameml0105 [address] RoadDublin [place] [id number] Triglyceride [Mass/Vol] 195 mg/dL Abnormal 0-149 [facility] Work Phone: Comment on above: PATIENT WAS FASTINGP ERFORMED BY: BRE LabKaren GuajardoGhhxao3573 [address] RoadDublin [place] [id number] METABOLIC PANEL, COMPREHENSI VE (49686)Ordered By: Senior Media Director on 03-04-2011 Albumin [Mass/Vol] 4.2 g/dL Normal 3.6-4.8 [facility] Internal Medicine Work Phone: Comment on above: PATIENT WAS FASTINGP ERFORMED BY: BRE Guajardolin6370 [address]rt[address] RoadDublin [place] [id number] Albumin/Globulin [Mass ratio] 1.8 {ratio} Normal 1.1-2.5 [facility] Work Phone: Comment on above: PATIENT WAS FASTINGP ERFORMED BY: BRE LabKaren Pmjhsy4898 [address] RoadDublin [place] [id number] ALP [Catalytic activity/Vol] 82 [iU]/L Normal 25-165 [facility] Work Phone: Comment on above: PATIENT WAS FASTINGP ERFORMED BY: BRE [facility] Enjmtr7069 [address] RoadDublin [place] [id number] ALT [Catalytic activity/Vol] 16 [iU]/L Normal 0-40 [facility] Work Phone: Comment on above: PATIENT WAS FASTINGP ERFORMED BY: BRE [facility] Omcrgj7682 [address] RoadDublin [place] [id number] AST [Catalytic activity/Vol] 20 [iU]/L Normal 0-40 [facility] Work Phone: Comment on above: PATIENT WAS FASTINGP ERFORMED BY: [facility] Wdafqp0957 [address] RoadDublin [place] [id number] Bilirubin [Mass/Vol] 0.4 mg/dL Normal 0.0-1.2 Comp rehensive Internal Medicine Work Phone: Comment on above: PATIENT WAS FASTINGP ERFORMED BY: CB [facility] Jfufvw7188 [address] RoadNovant Health Forsyth Medical Centerin [place] [id number] Calcium [Mass/Vol] 9.3 mg/dL Normal 8.6-10.2 [facility] Internal Medicine Work Phone: Comment on above: PATIENT WAS FASTINGP ERFORMED BY: [facility] Wnalwj8846 [facility] RoadWake [facility] [id number] Chloride [Moles/Vol] 99 mmol/L Normal 97-108 [facility] rehensive Internal Medicine Work Phone: Comment on above: PATIENT WAS FASTINGP ERFORMED BY: [facility] Tlorvw8355 [address] [facility] Hospitalin [place] [id number] CO2 [Moles/Vol] 24 mmol/L Normal 20-[address] [facility] [facility] Internal Medicine Work Phone: Comment on above: PATIENT WAS FASTINGP ERFORMED BY: Lab[facility] Aqxwwz1546 [facility] [id number] Creatinine [Mass/Vol] 1.07 mg/dL Abnormal 0.57-1.00 [facility] Work Phone: Comment on above: PATIENT WAS FASTINGP ERFORMED BY: [facility] Szfzsv9739 [facility] [id number] GFR/1.73 sq M predicted among blacks MDRD (S/P/Bld) [Vol rate/Area] 65 mL/min/{1.73_m2} Normal Comprehensiv e Internal Medicine Work Phone: Comment on above: Note: A persistent e GFR <60 mL/min/1.73 m2 (3 months or more) mayindicate chronic kidney disease. An eGFR >59 mL/min/1.73 m2 with anelevated urine protein also may indicate chronic kidney disease.Calculated using CKD-EPI formula. PATIENT WAS FASTINGP ERFORMED BY: CB [facility] Vyvggu7788 Schwartz RoadDublin [place] [id number] GFR/1.73 sq M predicted among non-blacks CKD-EPI (S/P/Bld) [Vol rate/Area] 57 mL/min/1.73 Abnormal [facility] Internal Medicine Work Phone: Comment on above: PATIENT WAS FASTINGP ERFORMED BY: CB [facility] Ilvsbv9527 [address] Roadblin [place] [id number] Globulin (S) [Mass/Vol] 2.4 g/dL Normal 1.5-4.5 [facility] Internal Medicine Work Phone: Comment on above: PATIENT WAS FASTINGP ERFORMED BY: [facility] Jcorzc4179 [address] RoadDublin [place] [id number] Glucose [Mass/Vol] 84 mg/dL Normal 65-99 [facility] Internal Medicine Work Phone: Comment on above: PATIENT WAS FASTINGP ERFORMED BY: LabCo Rphkdp8871 [address] RoadNovant Health Forsyth Medical Centerin [place] [id number] Potassium [Moles/Vol] 4.4 mmol/L Normal 3.5-5.2 [facility] Internal Medicine Work Phone: Comment on above: PATIENT WAS FASTINGP ERFORMED BY: [facility] Nyqmcd0343 [address] [facility] Hospitalin [place] [id number] Protein [Mass/Vol] 6.6 g/dL Normal 6.0-8.5 [facility] Internal Medicine Work Phone: Comment on above: PATIENT WAS FASTINGP ERFORMED BY: [facility] Gyraiv3911 [address] RoadDublin [place] [id number] Sodium [Moles/Vol] 137 mmol/L Normal 135-145 [facility] Internal Medicine Work Phone: Comment on above: PATIENT WAS FASTINGP ERFORMED BY: [facility] Momoum7634 [address] RoadDublin [place] [id number] Urea nitrogen [Mass/Vol] 17 mg/dL Normal 8-27 [facility] Work Phone: Comment on above: PATIENT WAS FASTINGP ERFORMED BY: BRE [employer] Cxsvaa2895 [address] [facility] Servicesbl[facility] [place] [id number] Urea nitrogen/Creatinine [Mass ratio] 16 mg/mg Normal 11-26 [facility] Work Phone: Comment on above: PATIENT WAS FASTINGP ERFORMED BY: [facility] Aexjzf2888 [address] [facility] Healthcare SystemsDublin [place] [id number] VITAMIN B-12 (CYANOCOBALAMIN ) (74317)Ordered By: Senior Media Director on 03-04-2011 Cobalamin (Vitamin B12) [Mass/Vol] 368 pg/mL Normal 211-946 [facility] Work Phone: Comment on above: PATIENT WAS FASTINGP ERFORMED BY: [employer] Sfjypu9255 [address] [facility] Be[facility] Servicesblin [place] [id number] Vitamin D Hydroxy (65217)Ord ered By: Senior Media Director on 03-04-2011 Calcitriol [Mass/Vol] 33.7 ng/mL Normal 32.0-100.0 [facility] prehensive Internal Medicine Work Phone: Comment on above: Recent studies consi maria luisa the lower limit of 32.0 ng/mL to be athreshold for optimal health.Abelardo HODGES. J Nutr. 2004;135(2):317-22. PATIENT WAS FASTINGP ERFORMED BY: SpeakUprp Zlxftt6009 [facility] [id number] Homocysteine, Plasma (14660) Ordered By: Senior Media Director on 10-24-2010 Homocysteine [Moles/Vol] 14.1 umol/L Normal 0.0-15.0 [facility] Work Phone: Comment on above: PATIENT NOT FASTINGP ERFORMED BY: VeeRanken [facility] Plprwuisgk0468 [facility] [id number] BY: [employer] Wykrkv1900 [address] [facility] Healthcare Systemsblin [place] [id number] Methylmalonic acid, serum 83 921Ordered By: Senior Media Director on 10-24-2010 Methylmalonate Ql (U) 192 nmol/L Normal 73-376 [facility] prehensive Internal Medicine Work Phone: Comment on above: The reference range for methylmalonic acid has been set at +3sd abovethe mean for healthy blood bank donors. In the clinical assessment ofpatients with megaloblastic anemias a cutoff of +3sd provides greaterspecificity in the diagnosis of the vitamin deficiency states,despite the sacrifice of some sensitivity. PATIENT NOT FASTINGP ERFORMED BY: [place] 887547 [facility] [id number] BY: [facility]6370 [facility] [id number] Information: 767879,[id number] SUNNY CULTURE-OTHER (01933)Ord ered By: Senior Media Director on 06-01-2010 Bacteria identified Respiratory culture Nom (Unsp spec) RRF Normal [facility] Work Phone: Comment on above: Routine respiratory venita PATIENT NOT FASTINGP ERFORMED BY: [facility]amoSchool[facility] Hospital6370 [facility] [id number] Information: SRC:VIK [id number] Bacteria identified Respiratory culture Nom (Unsp spec) Final report Normal [facility] Work Phone: Comment on above: PATIENT NOT FASTINGP ERFORMED BY: AvaamoRanken [facility] Xrlyxx2365 [facility] [id number] Information: SRC:VIK [id number] Rapid Strep Test, Office (26 179)Ordered By: Aruna Maria on 06-01-2010 S. pyogenes Ag IA Ql (Unsp spec) Negative Normal [facility] Work Phone: CBC WITH MANUAL DIFF (27328) Ordered By: Senior Media Director on 12-15-2009 Basophils (Bld) [#/Vol] 0.0 {x10E3/uL} Normal 0.0-0.2 [facility] Work Phone: Comment on above: PATIENT NOT FASTINGP ERFORMED BY: [facility]amo[facility]6370 [place] [facility] [id number] Information: [id number] Basophils/100 WBC (Bld) 1 % Normal 0-3 [facility] Work Phone: Comment on above: PATIENT NOT FASTINGP ERFORMED BY: BRE BaxterMelinda [place] [id number] [facility] [id number] Information: [id number] Eosinophils (Bld) [#/Vol] 0.1 {x10E3/uL} Normal 0.0-0.4 [facility] Work Phone: Comment on above: PATIENT NOT FASTINGP ERFORMED BY: BRE [address] [id number] Information: [id number] Eosinophils/100 WBC (Bld) 2 % Normal 0-7 [facility] Work Phone: Comment on above: PATIENT NOT FASTINGP ERFORMED BY: BRE Mata[address] [id number] Information: [id number] Erythrocyte distribution width (RBC) [Ratio] 13.4 % Normal 11.7-15.0 [facility] Work Phone: Comment on above: PATIENT NOT FASTINGP ERFORMED BY: [address] [id number] Information: [id number] Hematocrit (Bld) [Volume fraction] 39.7 % Normal 34.0-44.0 [facility] Work Phone: Comment on above: PATIENT NOT FASTINGP ERFORMED BY: [address] [id number] Information: [id number] Hemoglobin (Bld) [Mass/Vol] 13.8 g/dL Normal 11.5-15.0 [facility] Work Phone: Comment on above: PATIENT NOT FASTINGP ERFORMED BY: [facility]6370 [facility] [id number] Information: [id number] Lymphocytes (Bld) [#/Vol] 1.0 {x10E3/uL} Normal 0.7-4.5 [facility] Work Phone: Comment on above: PATIENT NOT FASTINGP ERFORMED BY: BRE Guajardolin6370 [facility] [id number] Information: [id number] Lymphocytes/100 WBC (Bld) 31 % Normal 14-46 [facility] Work Phone: Comment on above: PATIENT NOT FASTINGP ERFORMED BY: BRE Mata Gmmgly4995 [facility] [id number] Information: [id number] MCH (RBC) [Entitic mass] 33.5 pg Normal 27.0-34.0 [facility] Work Phone: Comment on above: PATIENT NOT FASTINGP ERFORMED BY: BRE Guajardolin6370 [facility] [id number] Information: [id number] MCHC (RBC) [Mass/Vol] 34.7 g/dL Normal 32.0-36.0 [facility] Internal Medicine Work Phone: Comment on above: PATIENT NOT FASTINGP ERFORMED BY: BRE Mata Igpjxn4776 [facility] [id number] Information: [id number] MCV (RBC) [Entitic vol] 97 fL Normal 80-98 [facility] Work Phone: Comment on above: PATIENT NOT FASTINGP ERFORMED BY: BRE MataYolanda [place] [id number] [facility] [id number] Information: [id number] Monocytes (Bld) [#/Vol] 0.4 {x10E3/uL} Normal 0.1-1.0 [facility] Work Phone: Comment on above: PATIENT NOT FASTINGP ERFORMED BY: BRE Guajardolin6370 [facility] [id number] Information: [id number] Monocytes/100 WBC (Bld) 13 % Normal 4-13 [facility] Work Phone: Comment on above: PATIENT NOT FASTINGP ERFORMED BY: [facility]CoEs[facility] HospitalJiflkn2319 [facility] [id number] Information: [id number] Neutrophils (Bld) [#/Vol] 1.6 {x10E3/uL} Abnormal 1.8-7.8 [facility] Internal Medicine Work Phone: Comment on above: PATIENT NOT FASTINGP ERFORMED BY: [facility]CoEs[facility] HospitalPhcpcv5671 [facility] [id number] Information: [id number] Neutrophils/100 WBC (Bld) 53 % Normal 40-74 [facility] Internal Medicine Work Phone: Comment on above: PATIENT NOT FASTINGP ERFORMED BY: [facility]CoEs[facility] HospitalKbxqvy9543 [facility] [id number] Information: [id number] Platelets (Bld) [#/Vol] 232 {x10E3/uL} Normal 140-415 [facility] Internal Medicine Work Phone: Comment on above: PATIENT NOT FASTINGP ERFORMED BY: [facility]6370 [facility] [id number] Information: [id number] RBC (Bld) [#/Vol] 4.12 {x10E6/uL} Normal 3.80-5.10 [facility] Internal Medicine Work Phone: Comment on above: PATIENT NOT FASTINGP ERFORMED BY: [facility]CoEs[facility] HospitalTjkptf2183 [facility] [id number] Information: [id number] WBC (Bld) [#/Vol] 3.1 {x10E3/uL} Abnormal 4.0-10.5 [facility] Internal Medicine Work Phone: Comment on above: PATIENT NOT FASTINGP ERFORMED BY: CB LabCo Pcpgmd1309 [facility] [id number] Information: [id number] Rapid Strep Test, Office ([id number] [phone])Ordered By: Nancy Morris on 04-14-2008 S. pyogenes Ag IA Ql (Unsp spec) Negative Normal [facility] Work Phone: Vital Signs Date Time Vital Sign Value Performing Clinician Facility 12-17-2022 13:56-0400 Body height 167.[address] Maurilio Castillo Work Phone: [facility] 12-17-2022 13:54-0400 Body mass index (BMI) [Ratio] 26.3 kg/m2 Dr. Maurilio Castillo Work Phone: [facility] 12-17-2022 13:54-0400 Body temperature 98.2 [degF] Dr. Maurilio Castillo Work Phone: [facility] 12-17-2022 13:54-0400 Body weight 74.[address] Maurilio Castillo Work Phone: [facility] 12-17-2022 13:54-0400 Diastolic blood pressure 88 mm[Hg] Dr. Maurilio Castillo Work Phone: [facility] 12-17-2022 13:54-0400 Heart rate 70 /min Dr. Maurilio Castillo Work Phone: [facility] 12-17-2022 13:54-0400 Respiratory rate 16 /min Dr. Maurilio Castillo Work Phone: [facility] 12-17-2022 13:54-0400 SaO2% (BldA) [Mass fraction] 98 % Dr. Maurilio Castillo Work Phone: [facility] 12-17-2022 13:54-0400 Systolic blood pressure 147 mm[Hg] Dr. Maurilio Castillo Work Phone: [facility] 12-12-2021 13:56-0400 Body height 167.[address] Maurilio Castillo Work Phone: [facility] Work Phone: 12-12-2021 13:56-0400 Body mass index (BMI) [Ratio] 25.8 kg/m2 Dr. Maurilio Castillo Work Phone: [facility] Work Phone: 12-12-2021 13:56-0400 Body temperature 98.1 [degF] Dr. Maurilio Castillo Work Phone: [facility] Work Phone: 12-12-2021 13:56-0400 Body weight 72.[address] Maurilio Castillo Work Phone: [facility] Work Phone: 12-12-2021 13:56-0400 Diastolic blood pressure 84 mm[Hg] Dr. Maurilio Castillo Work Phone: [facility] Work Phone: 12-12-2021 13:56-0400 Heart rate 101 /min Dr. Maurilio Castillo Work Phone: [facility] Work Phone: 12-12-2021 13:56-0400 Respiratory rate 15 /min Dr. Maurilio Castillo Work Phone: [facility] Work Phone: 12-12-2021 13:56-0400 SaO2% (BldA) [Mass fraction] 96 % Dr. Maurilio Castillo Work Phone: [facility] Work Phone: 12-12-2021 13:56-0400 Systolic blood pressure 133 mm[Hg] Dr. Maurilio Castillo Work Phone: [facility] Work Phone: 12-12-2021 13:56-0400 Body height 167.[address] Maurilio Castillo Work Phone: [facility] Work Phone: 12-12-2021 13:56-0400 Body mass index (BMI) [Ratio] 25.8 kg/m2 Dr. Maurilio Castillo Work Phone: [facility] Work Phone: 12-12-2021 13:56-0400 Body temperature 98.1 [degF] Dr. Maurilio Castillo Work Phone: [facility] Work Phone: 12-12-2021 13:56-0400 Body weight 72.[address] Maurilio Castillo Work Phone: [facility] Work Phone: 12-12-2021 13:56-0400 Diastolic blood pressure 84 mm[Hg] Dr. Maurilio Castillo Work Phone: [facility] Work Phone: 12-12-2021 13:56-0400 Heart rate 101 /min Dr. Maurilio Castillo Work Phone: [facility] Work Phone: 12-12-2021 13:56-0400 Respiratory rate 15 /min Dr. Maurilio Castillo Work Phone: [facility] Work Phone: 12-12-2021 13:56-0400 SaO2% (BldA) [Mass fraction] 96 % Dr. Maurilio Castillo Work Phone: [facility] Work Phone: 12-12-2021 13:56-0400 Systolic blood pressure 133 mm[Hg] Dr. Maurilio Castillo Work Phone: [facility] Work Phone: 12-13-2020 09:23-0400 Body mass index (BMI) [Ratio] 26.8 kg/m2 Dr. Maurilio Castillo Work Phone: [facility] 12-13-2020 09:23-0400 Body temperature 97.5 [degF] Dr. Maurilio Castillo Work Phone: [facility] 12-13-2020 09:23-0400 Body weight 77.[address] Maurilio Castillo Work Phone: [facility] 12-13-2020 09:23-0400 Diastolic blood pressure 83 mm[Hg] Dr. Maurilio Castillo Work Phone: [facility] 12-13-2020 09:23-0400 Heart rate 85 /min Dr. Maurilio Castillo Work Phone: [facility] 12-13-2020 09:23-0400 Respiratory rate 16 /min Dr. Maurilio Castillo Work Phone: [facility] 12-13-2020 09:23-0400 SaO2% (BldA) [Mass fraction] 98 % Dr. Maurilio Castillo Work Phone: [facility] 12-13-2020 09:23-0400 Systolic blood pressure 118 mm[Hg] Dr. Maurilio Castillo Work Phone: [facility] 07-02-2018 13:17-0500 BMI (Body Mass Index) 29.41 kg/m2 Moira Ramsey [facility] Internal Medicine Work Phone: 07-02-2018 13:17-0500 Body weight 83.92 kg Moira Roxy [facility] Internal Medicine Work Phone: 07-02-2018 13:17-0500 BP Diastolic 88 mm[Hg] Moira Ramsey [facility] Internal Medicine Work Phone: Comment on above: Patient Position: Sitting; Cuff Location : Left Arm; Cuff Size: Large 07-02-2018 13:17-0500 BP Systolic 124 mm[Hg] Moira Ramsey [facility] Internal Medicine Work Phone: Comment on above: Patient Position: Sitting; Cuff Location : Left Arm; Cuff Size: Large 07-02-2018 13:17-0500 BSA (Body Surface Area) 1.95 m2 Moira Ramsey [facility] Internal Medicine Work Phone: 07-02-2018 13:17-0500 Height 168.91 cm Moira Ramsey [facility] Internal Medicine Work Phone: 07-02-2018 13:17-0500 Pulse (Heart Rate) 78 /min Moira Ramsey [facility] Internal Medicine Work Phone: Comment on above: Pattern: Regular 07-02-2018 13:17-0500 Pulse Oximetry 98 % Moira Ramsey [facility] Internal Medicine Work Phone: Comment on above: Room air 07-02-2018 13:17-0500 Respiratory Rate 18 /min Moira Ramsey [facility] Internal Medicine Work Phone: Comment on above: Pattern: Unlabored 07-02-2018 13:17-0500 Weight 83.92 kg Moira Ramsey [facility] Internal Medicine Work Phone: 05-21-2018 09:38-0400 BMI (Body Mass Index) 30.25 kg/m2 Moira Ramsey [facility] Internal Medicine Work Phone: 05-21-2018 09:38-0400 Body Temperature 97.8 [degF] Moira Ramsey [facility] Internal Medicine Work Phone: Comment on above: Method: Temporal 05-21-2018 09:38-0400 Body weight 86.3 kg Moira Ramsey [facility] Internal Medicine Work Phone: 05-21-2018 09:38-0400 BP Diastolic 84 mm[Hg] Moira Ramsey [facility] Internal Medicine Work Phone: Comment on above: Patient Position: Sitting; Cuff Location : Left Arm; Cuff Size: Large 05-21-2018 09:38-0400 BP Systolic 118 mm[Hg] Moira Ramsey [facility] Internal Medicine Work Phone: Comment on above: Patient Position: Sitting; Cuff Location : Left Arm; Cuff Size: Large 05-21-2018 09:38-0400 BSA (Body Surface Area) 1.97 m2 Moira Ramsey [facility] Internal Medicine Work Phone: 05-21-2018 09:38-0400 Height 168.91 cm Moira Ramsey [facility] Internal Medicine Work Phone: 05-21-2018 09:38-0400 Pulse (Heart Rate) 84 /min Moira Ramsey [facility] Internal Medicine Work Phone: Comment on above: Pattern: Regular 05-21-2018 09:38-0400 Pulse Oximetry 98 % Moira Ramsey [facility] Internal Medicine Work Phone: Comment on above: Room air 05-21-2018 09:38-0400 Respiratory Rate 18 /min Moira Ramsey [facility] Internal Medicine Work Phone: Comment on above: Pattern: Unlabored 05-21-2018 09:38-0400 Weight 86.3 kg Moira Ramsey [facility] Internal Medicine Work Phone: 03-19-2018 13:56-0400 BMI (Body Mass Index) 29.73 kg/m2 Moira Ramsey [facility] Internal Medicine Work Phone: 03-19-2018 13:56-0400 Body Temperature 98.5 [degF] Moira Ramsey [facility] Internal Medicine Work Phone: Comment on above: Method: Temporal 03-19-2018 13:56-0400 Body weight 84.82 kg Moira Ramsey [facility] Internal Medicine Work Phone: 03-19-2018 13:56-0400 BP Diastolic 74 mm[Hg] Moira Ramsey [facility] Internal Medicine Work Phone: Comment on above: Patient Position: Sitting; Cuff Location : Left Arm; Cuff Size: Standard 03-19-2018 13:56-0400 BP Systolic 128 mm[Hg] Moira Ramsey [facility] Internal Medicine Work Phone: Comment on above: Patient Position: Sitting; Cuff Location : Left Arm; Cuff Size: Standard 03-19-2018 13:56-0400 BSA (Body Surface Area) 1.95 m2 Moira Ramsey [facility] Internal Medicine Work Phone: 03-19-2018 13:56-0400 Height 168.91 cm Moira Ramsey [facility] Internal Medicine Work Phone: 03-19-2018 13:56-0400 Pulse (Heart Rate) 101 /min Moira Ramsey [facility] Internal Medicine Work Phone: Comment on above: Pattern: Regular 03-19-2018 13:56-0400 Pulse Oximetry 97 % Moira Ramsey [facility] Internal Medicine Work Phone: Comment on above: Room air 03-19-2018 13:56-0400 Respiratory Rate 16 /min Moira Ramsey [facility] Internal Medicine Work Phone: Comment on above: Pattern: Unlabored 03-19-2018 13:56-0400 Weight 84.82 kg Moira Ramsey [facility] Internal Medicine Work Phone: 01-15-2018 10:03-0400 BMI (Body Mass Index) 29.47 kg/m2 Moira Ramsey [facility] Internal Medicine Work Phone: 01-15-2018 10:03-0400 Body weight 84.09 kg Moira Ramsey [facility] Internal Medicine Work Phone: 01-15-2018 10:03-0400 BP Diastolic 76 mm[Hg] Moira Ramsey [facility] Internal Medicine Work Phone: Comment on above: Patient Position: Sitting; Cuff Location : Left Arm; Cuff Size: Large 01-15-2018 10:03-0400 BP Systolic 134 mm[Hg] Moira Ramsey [facility] Internal Medicine Work Phone: Comment on above: Patient Position: Sitting; Cuff Location : Left Arm; Cuff Size: Large 01-15-2018 10:03-0400 BSA (Body Surface Area) 1.95 m2 Moira Ramsey [facility] Internal Medicine Work Phone: 01-15-2018 10:03-0400 Height 168.91 cm Moira Rasmey [facility] Internal Medicine Work Phone: 01-15-2018 10:03-0400 Pulse (Heart Rate) 78 /min Moira Ramsey [facility] Internal Medicine Work Phone: Comment on above: Pattern: Regular 01-15-2018 10:03-0400 Pulse Oximetry 97 % Moira Ramsey [facility] Internal Medicine Work Phone: Comment on above: Room air 01-15-2018 10:03-0400 Respiratory Rate 18 /min Moira Ramsey [facility] Internal Medicine Work Phone: Comment on above: Pattern: Unlabored 01-15-2018 10:03-0400 Weight 84.09 kg Moira Ramsey [facility] Internal Medicine Work Phone: 12-03-2017 10:22-0400 BMI (Body Mass Index) 29.43 kg/m2 Moira Thayer cheri Internal Medicine Work Phone: 12-03-2017 10:22-0400 Body weight 83.97 kg Moira Ramsey [facility] Work Phone: 12-03-2017 10:22-0400 BP Diastolic 78 mm[Hg] Moira Ramsey [facility] Work Phone: 12-03-2017 10:22-0400 BP Systolic 118 mm[Hg] Moira Ramsey [facility] Work Phone: 12-03-2017 10:22-0400 BSA (Body Surface Area) 1.95 m2 Moira Ramsey [facility] Work Phone: 12-03-2017 10:22-0400 Height 168.91 cm Moira Ramsey [facility] Work Phone: 12-03-2017 10:22-0400 Pulse (Heart Rate) 91 /min Moira Ramsey [facility] Work Phone: Comment on above: Pattern: Regular 12-03-2017 10:22-0400 Pulse Oximetry 93 % Moira Ramsey [facility] Work Phone: Comment on above: Room air 12-03-2017 10:22-0400 Respiratory Rate 16 /min Moira Ramsey [facility] Work Phone: 12-03-2017 10:22-0400 Weight 83.97 kg Moira Ramsey [facility] Work Phone: 11-19-2017 08:49-0400 BMI (Body Mass Index) 29.77 kg/m2 Moira Thayer cheri Internal Medicine Work Phone: 11-19-2017 08:49-0400 Body weight 84.94 kg Moira Ramsey [facility] Work Phone: 11-19-2017 08:49-0400 BP Diastolic 72 mm[Hg] Moira Ramsey [facility] Work Phone: Comment on above: Patient Position: Sitting; Cuff Location : Left Arm; Cuff Size: Standard 11-19-2017 08:49-0400 BP Systolic 102 mm[Hg] Moira Ramsey [facility] Internal Medicine Work Phone: Comment on above: Patient Position: Sitting; Cuff Location : Left Arm; Cuff Size: Standard 11-19-2017 08:49-0400 BSA (Body Surface Area) 1.96 m2 Moira Ramsey [facility] Internal Medicine Work Phone: 11-19-2017 08:49-0400 Height 168.91 cm Moira Ramsey [facility] Internal Medicine Work Phone: 11-19-2017 08:49-0400 Pulse (Heart Rate) 122 /min Moira Ramsey [facility] Internal Medicine Work Phone: Comment on above: Pattern: Regular 11-19-2017 08:49-0400 Pulse Oximetry 95 % Moira Ramsey [facility] Internal Medicine Work Phone: Comment on above: Room air 11-19-2017 08:49-0400 Respiratory Rate 18 /min Moira Ramsey [facility] Internal Medicine Work Phone: Comment on above: Pattern: Unlabored 11-19-2017 08:49-0400 Weight 84.94 kg Moira Ramsey [facility] Internal Medicine Work Phone: 10-14-2017 09:19-0500 BMI (Body Mass Index) 29.77 kg/m2 Moira Ramsey [facility] Internal Medicine Work Phone: 10-14-2017 09:19-0500 Body weight 84.94 kg Moira Ramsey [facility] Internal Medicine Work Phone: 10-14-2017 09:19-0500 BP Diastolic 78 mm[Hg] Moira Ramsey [facility] Internal Medicine Work Phone: Comment on above: Patient Position: Sitting; Cuff Location : Left Arm; Cuff Size: Standard 10-14-2017 09:19-0500 BP Systolic 122 mm[Hg] Moira Ramsey [facility] Internal Medicine Work Phone: Comment on above: Patient Position: Sitting; Cuff Location : Left Arm; Cuff Size: Standard 10-14-2017 09:19-0500 BSA (Body Surface Area) 1.96 m2 Moira Ramsey [facility] Internal Medicine Work Phone: 10-14-2017 09:19-0500 Height 168.91 cm Moira Ramsey [facility] Internal Medicine Work Phone: 10-14-2017 09:19-0500 Pulse (Heart Rate) 84 /min Moira Ramsey [facility] Internal Medicine Work Phone: Comment on above: Pattern: Regular 10-14-2017 09:19-0500 Pulse Oximetry 97 % Moira aRmsey [facility] Internal Medicine Work Phone: Comment on above: Room air 10-14-2017 09:19-0500 Respiratory Rate 18 /min Moira Ramsey [facility] Internal Medicine Work Phone: Comment on above: Pattern: Unlabored 10-14-2017 09:19-0500 Weight 84.94 kg Moira Ramsey [facility] Internal Medicine Work Phone: 09-24-2017 13:49-0500 BMI (Body Mass Index) 29.77 kg/m2 Moira Ramsey [facility] Internal Medicine Work Phone: 09-24-2017 13:49-0500 Body weight 84.94 kg Moira Ramsey [facility] Internal Medicine Work Phone: 09-24-2017 13:49-0500 BP Diastolic 82 mm[Hg] Moira Ramsey [facility] Internal Medicine Work Phone: Comment on above: Patient Position: Sitting; Cuff Location : Left Arm; Cuff Size: Large 09-24-2017 13:49-0500 BP Systolic 120 mm[Hg] Moira Ramsey [facility] Internal Medicine Work Phone: Comment on above: Patient Position: Sitting; Cuff Location : Left Arm; Cuff Size: Large 09-24-2017 13:49-0500 BSA (Body Surface Area) 1.96 m2 Moira Ramsey [facility] Internal Medicine Work Phone: 09-24-2017 13:49-0500 Height 168.91 cm Moira Ramsey [facility] Internal Medicine Work Phone: 09-24-2017 13:49-0500 Pulse (Heart Rate) 80 /min Moira Ramsey [facility] Internal Medicine Work Phone: Comment on above: Pattern: Regular 09-24-2017 13:49-0500 Pulse Oximetry 96 % Moira Ramsey [facility] Internal Medicine Work Phone: Comment on above: Room air 09-24-2017 13:49-0500 Respiratory Rate 18 /min Moira Ramsey [facility] Internal Medicine Work Phone: Comment on above: Pattern: Unlabored 09-24-2017 13:49-0500 Weight 84.94 kg Moira Ramsey [facility] Internal Medicine Work Phone: 05-21-2017 10:29-0400 BMI (Body Mass Index) 29.41 kg/m2 Moira Ramsey [facility] Internal Medicine Work Phone: 05-21-2017 10:29-0400 Body weight 83.92 kg Moira Ramsey [facility] Internal Medicine Work Phone: 05-21-2017 10:29-0400 BP Diastolic 80 mm[Hg] Moira Ramsey [facility] Internal Medicine Work Phone: Comment on above: Patient Position: Sitting; Cuff Location : Left Arm; Cuff Size: Standard 05-21-2017 10:290400 BP Systolic 122 mm[Hg] Moira Ramsey [facility] Internal Medicine Work Phone: Comment on above: Patient Position: Sitting; Cuff Location : Left Arm; Cuff Size: Standard 05-21-2017 10:29-0400 BSA (Body Surface Area) 1.95 m2 Moira Ramsey [facility] Internal Medicine Work Phone: 05-21-2017 10:29-0400 Height 168.91 cm Moira Ramsey [facility] Internal Medicine Work Phone: 05-21-2017 10:29-0400 Pulse (Heart Rate) 72 /min Moira Ramsey [facility] Internal Medicine Work Phone: Comment on above: Pattern: Regular 05-21-2017 10:29-0400 Pulse Oximetry 96 % Moira Ramsey [facility] Internal Medicine Work Phone: Comment on above: Room air 05-21-2017 10:29-0400 Respiratory Rate 18 /min Moira Ramsey [facility] Internal Medicine Work Phone: Comment on above: Pattern: Unlabored 05-21-2017 10:29-0400 Weight 83.92 kg Moira Ramsey [facility] Internal Medicine Work Phone: 03-24-2017 14:12-0400 BMI (Body Mass Index) 29.25 kg/m2 Moira Ramsey [facility] Internal Medicine Work Phone: 03-24-2017 14:12-0400 Body weight 83.46 kg Moira Ramsey [facility] Internal Medicine Work Phone: 03-24-2017 14:12-0400 BP Diastolic 82 mm[Hg] Moira Ramsey [facility] Internal Medicine Work Phone: Comment on above: Patient Position: Sitting; Cuff Location : Left Arm; Cuff Size: Large 03-24-2017 14:12-0400 BP Systolic 118 mm[Hg] Moira Ramsey [facility] Internal Medicine Work Phone: Comment on above: Patient Position: Sitting; Cuff Location : Left Arm; Cuff Size: Large 03-24-2017 14:12-0400 BSA (Body Surface Area) 1.94 m2 Moira Ramsey [facility] Internal Medicine Work Phone: 03-24-2017 14:12-0400 Height 168.91 cm Moira Ramsey [facility] Internal Medicine Work Phone: 03-24-2017 14:12-0400 Pulse (Heart Rate) 68 /min Moira Ramsey [facility] Internal Medicine Work Phone: Comment on above: Pattern: Regular 03-24-2017 14:12-0400 Pulse Oximetry 96 % Moira Ramsey [facility] Internal Medicine Work Phone: Comment on above: Room air 03-24-2017 14:12-0400 Respiratory Rate 18 /min Moira Ramsey [facility] Internal Medicine Work Phone: Comment on above: Pattern: Unlabored 03-24-2017 14:12-0400 Weight 83.46 kg Moira Ramsey [facility] Internal Medicine Work Phone: 01-07-2017 10:47-0400 BMI (Body Mass Index) 28.78 kg/m2 Moira Ramsey [facility] Internal Medicine Work Phone: 01-07-2017 10:47-0400 Body Temperature 97.9 [degF] Moira Ramsey [facility] Internal Medicine Work Phone: 01-07-2017 10:47-0400 Body weight 82.1 kg Moira Ramsey [facility] Internal Medicine Work Phone: 01-07-2017 10:47-0400 BP Diastolic 88 mm[Hg] Moira Ramsey [facility] Internal Medicine Work Phone: Comment on above: Patient Position: Sitting; Cuff Location : Left Arm; Cuff Size: Standard 01-07-2017 10:47-0400 BP Systolic 122 mm[Hg] Moira Ramsey [facility] Internal Medicine Work Phone: Comment on above: Patient Position: Sitting; Cuff Location : Left Arm; Cuff Size: Standard 01-07-2017 10:47-0400 BSA (Body Surface Area) 1.93 m2 Moira Ramsey [facility] Internal Medicine Work Phone: 01-07-2017 10:47-0400 Height 168.91 cm Moira Ramsey [facility] Internal Medicine Work Phone: 01-07-2017 10:47-0400 Pulse (Heart Rate) 82 /min Moira Ramsey [facility] Internal Medicine Work Phone: Comment on above: Pattern: Regular 01-07-2017 10:47-0400 Pulse Oximetry 94 % Moira Ramsey [facility] Internal Medicine Work Phone: Comment on above: Room air 01-07-2017 10:47-0400 Respiratory Rate 17 /min Moira Ramsey [facility] Internal Medicine Work Phone: Comment on above: Pattern: Unlabored 01-07-2017 10:47-0400 Weight 82.1 kg Moira Ramsey [facility] Internal Medicine Work Phone: 11-20-2016 10:0400 BMI (Body Mass Index) 28.8 kg/m2 Moira Thayer cheri Internal Medicine Work Phone: 11-20-2016 10:040 Body weight 82.16 kg Moira Ramsey [facility] Internal Medicine Work Phone: 11-20-2016 10:130400 BP Diastolic 98 mm[Hg] Moira Ramsey [facility] Internal Medicine Work Phone: Comment on above: Patient Position: Sitting; Cuff Location : Left Arm; Cuff Size: Large 11-20-2016 10:0400 BP Systolic 142 mm[Hg] Moira Ramsey [facility] Internal Medicine Work Phone: Comment on above: Patient Position: Sitting; Cuff Location : Left Arm; Cuff Size: Large 11-20-2016 10:0400 BSA (Body Surface Area) 1.93 m2 Moira Ramsey [facility] Internal Medicine Work Phone: 11-20-2016 10:040 Height 168.91 cm Moira Ramsey [facility] Internal Medicine Work Phone: 11-20-2016 10:130400 Pulse (Heart Rate) 77 /min Moira Ramsey [facility] Internal Medicine Work Phone: Comment on above: Pattern: Regular 11-20-2016 10:040 Pulse Oximetry 97 % Moira Ramsey [facility] Internal Medicine Work Phone: Comment on above: Room air 11-20-2016 10:0400 Respiratory Rate 18 /min Moira Ramsey [facility] Internal Medicine Work Phone: Comment on above: Pattern: Unlabored 11-20-2016 10:040 Weight 82.16 kg Moira Ramesy [facility] Internal Medicine Work Phone: 10-30-2016 10:-0500 BMI (Body Mass Index) 29.15 kg/m2 Moira Thayer cheri Internal Medicine Work Phone: 10-30-2016 10:24-0500 Body weight 83.18 kg Moira Ramsey [facility] Internal Medicine Work Phone: 10-30-2016 10:24-0500 BP Diastolic 82 mm[Hg] Moira Ramsey [facility] Internal Medicine Work Phone: Comment on above: Patient Position: Sitting; Cuff Location : Left Arm; Cuff Size: Large 10-30-2016 10:24-0500 BP Systolic 138 mm[Hg] Moira Ramsey [facility] Internal Medicine Work Phone: Comment on above: Patient Position: Sitting; Cuff Location : Left Arm; Cuff Size: Large 10-30-2016 10:24-0500 BSA (Body Surface Area) 1.94 m2 Moira Ramsey [facility] Internal Medicine Work Phone: 10-30-2016 10:24-0500 Height 168.91 cm Moira Ramsey [facility] Internal Medicine Work Phone: 10-30-2016 10:24-0500 Pulse (Heart Rate) 68 /min Moira Ramsey [facility] Internal Medicine Work Phone: Comment on above: Pattern: Regular 10-30-2016 10:24-0500 Pulse Oximetry 98 % Moira Ramsey [facility] Internal Medicine Work Phone: Comment on above: Room air 10-30-2016 10:24-0500 Respiratory Rate 18 /min Moira Ramsey [facility] Internal Medicine Work Phone: Comment on above: Pattern: Unlabored 10-30-2016 10:24-0500 Weight 83.18 kg Moira Ramsey [facility] Internal Medicine Work Phone: 08-29-2016 13:07-0500 BMI (Body Mass Index) 29.17 kg/m2 Moira Ramsey [facility] Internal Medicine Work Phone: 08-29-2016 13:07-0500 Body weight 83.24 kg Moira Ramsey [facility] Internal Medicine Work Phone: 08-29-2016 13:07-0500 BP Diastolic 88 mm[Hg] Moira Ramsey [facility] Internal Medicine Work Phone: Comment on above: Patient Position: Sitting; Cuff Location : Left Arm; Cuff Size: Large 08-29-2016 13:07-0500 BP Systolic 128 mm[Hg] Moira [facility] Work Phone: Comment on above: Patient Position: Sitting; Cuff Location : Left Arm; Cuff Size: Large 08-29-2016 13:07-0500 BSA (Body Surface Area) 1.94 m2 Moira Ramsey [facility] Work Phone: 08-29-2016 13:07-0500 Height 168.91 cm Moira Ramsey [facility] Work Phone: 08-29-2016 13:07-0500 Pulse (Heart Rate) 81 /min Moira Ramsey [facility] Work Phone: Comment on above: Pattern: Regular 08-29-2016 13:07-0500 Pulse Oximetry 98 % Moira Ramsey [facility] Internal Medicine Work Phone: Comment on above: Room air 08-29-2016 13:07-0500 Respiratory Rate 18 /min Moira Ramsey [facility] Work Phone: Comment on above: Pattern: Unlabored 08-29-2016 13:07-0500 Weight 83.24 kg Moira Ramsey [facility] Internal Medicine Work Phone: 06-27-2016 15:01-0400 BP Diastolic 80 mm[Hg] Moira Ramsey [facility] Work Phone: Comment on above: Patient Position: Sitting; Cuff Location : Left Arm; Cuff Size: Standard 06-27-2016 15:01-0400 BP Systolic 138 mm[Hg] Moira Ramsey [facility] Work Phone: Comment on above: Patient Position: Sitting; Cuff Location : Left Arm; Cuff Size: Standard 06-27-2016 15:01-0400 Pulse (Heart Rate) 97 /min Moira Ramsey [facility] Work Phone: Comment on above: Pattern: Regular 06-27-2016 15:01-0400 BP Diastolic 80 mm[Hg] Moira Ramsey [facility] Work Phone: Comment on above: Patient Position: Sitting; Cuff Location : Left Arm; Cuff Size: Standard 06-27-2016 15:01-0400 BP Systolic 142 mm[Hg] [facility] Comment on above: Patient Position: Sitting; Cuff Location : Left Arm; Cuff Size: Standard 06-27-2016 15:01-0400 Pulse (Heart Rate) 74 /min Moira Ramesy [facility] Internal Medicine Work Phone: Comment on above: Pattern: Regular 06-27-2016 15:01-0400 BP Diastolic 90 mm[Hg] Moira Ramsey [facility] Internal Medicine Work Phone: Comment on above: Patient Position: Supine; Cuff Location: Left Arm; Cuff Size: Standard 06-27-2016 15:01-0400 BP Systolic 158 mm[Hg] [facility]: Comment on above: Patient Position: Supine; Cuff Location: Left Arm; Cuff Size: Standard 06-27-2016 15:-0400 Pulse (Heart Rate) 77 /min Moira Ramsey [facility] Internal Medicine Work Phone: Comment on above: Pattern: Regular 06-27-2016 13:07-0400 BMI (Body Mass Index) 28.8 kg/m2 Moira Ramsey [facility] Internal Medicine Work Phone: 06-27-2016 13:07-0400 Body weight 82.16 [facility]: 06-27-2016 13:07-0400 BP Diastolic 82 mm[Hg] Moira Ramsey [facility] Internal Medicine Work Phone: Comment on above: Patient Position: Sitting; Cuff Location : Left Arm; Cuff Size: Standard 06-27-2016 13:07-0400 BP Systolic 128 mm[Hg] [facility]: Comment on above: Patient Position: Sitting; Cuff Location : Left Arm; Cuff Size: Standard 06-27-2016 13:07-0400 BSA (Body Surface Area) 1.93 m2 [facility]: 06-27-2016 13:07-0400 Height 168.91 cm Moira Ramsey [facility] Internal Medicine Work Phone: 06-27-2016 13:07-0400 Pulse (Heart Rate) 100 /min Moira Ramsey [facility] Internal Medicine Work Phone: Comment on above: Pattern: Regular 06-27-2016 13:07-0400 Pulse Oximetry 97 % Moira Ramsey [facility] Internal Medicine Work Phone: Comment on above: Room air 06-27-2016 13:07-0400 Respiratory Rate 18 /min Moira Ramsey [facility] Internal Medicine Work Phone: Comment on above: Pattern: Unlabored 06-27-2016 13:07-0400 Weight 82.16 kg Moira Ramsey [facility] Internal Medicine Work Phone: 05-16-2016 13:37-0400 BMI (Body Mass Index) 29.41 kg/m2 Moira Ramsey [facility] Internal Medicine Work Phone: Comment on above: hearing wnlDr. Midol and had a glaucoma test done 05-16-2016 13:37-0400 Body Temperature 97 [degF] Moira Ramsey [facility] Internal Medicine Work Phone: Comment on above: Method: Oral hearing wnlDr. Midol and had a glaucoma test done 05-16-2016 13:37-0400 Body weight 83.92 kg Moira Ramsey [facility] Internal Medicine Work Phone: Comment on above: hearing wnlDr. Midol and had a glaucoma test done 05-16-2016 13:37-0400 BP Diastolic 62 mm[Hg] Moira Ramsey [facility] Internal Medicine Work Phone: Comment on above: Patient Position: Sitting; Cuff Location : Left Arm; Cuff Size: Large hearing wnlDr. Midol and had a glaucoma test done 05-16-2016 13:37-0400 BP Systolic 134 mm[Hg] Moira Ramsey [facility] Internal Medicine Work Phone: Comment on above: Patient Position: Sitting; Cuff Location : Left Arm; Cuff Size: Large hearing wnlDr. Midol and had a glaucoma test done 05-16-2016 13:37-0400 BSA (Body Surface Area) 1.95 m2 [facility]: Comment on above: hearing wnlDr. Midol and had a glaucoma test done 05-16-2016 13:37-0400 Height 168.91 cm [facility]: Comment on above: hearing wnlDr. Midol and had a glaucoma test done 05-16-2016 13:37-0400 Pulse (Heart Rate) 91 /min [facility]: Comment on above: Pattern: Regular hearing wnlDr. Midol and had a glaucoma test done 05-16-2016 13:37-0400 Pulse Oximetry 95 % [facility]: Comment on above: Room air hearing wnlDr. Midol and had a glaucoma test done 05-16-2016 13:37-0400 Respiratory Rate 18 /min Moira [facility] Internal Medicine Work Phone: Comment on above: Pattern: Unlabored hearing wnlDr. Midol and had a glaucoma test done 05-16-2016 13:37-0400 Weight 83.92 [facility]: Comment on above: hearing wnlDr. Midol and had a glaucoma test done 02-21-2016 11:03-0400 BMI (Body Mass Index) 28.7 kg/m2 Moirayevgeniy Ramsey [facility] Internal Medicine Work Phone: 02-21-2016 11:03-0400 Body weight 81.87 kg Moira [facility] Internal Medicine Work Phone: 02-21-2016 11:03-0400 BP Diastolic 82 mm[Hg] [facility]: Comment on above: Patient Position: Sitting; Cuff Location : Left Arm; Cuff Size: Large 02-21-2016 11:03-0400 BP Systolic 128 mm[Hg] Moira Ramsey [facility] Internal Medicine Work Phone: Comment on above: Patient Position: Sitting; Cuff Location : Left Arm; Cuff Size: Large 02-21-2016 11:03-0400 BSA (Body Surface Area) 1.93 m2 Moira Ramsey [facility] Internal Medicine Work Phone: 02-21-2016 11:03-0400 Height 168.91 cm Moira Ramsey [facility] Internal Medicine Work Phone: 02-21-2016 11:03-0400 Pulse (Heart Rate) 98 /min Moira Ramsey [facility] Internal Medicine Work Phone: Comment on above: Pattern: Regular 02-21-2016 11:03-0400 Pulse Oximetry 97 % Moira Ramsey [facility] Internal Medicine Work Phone: Comment on above: Room air 02-21-2016 11:03-0400 Respiratory Rate 18 /min Moira Ramsey [facility] Internal Medicine Work Phone: Comment on above: Pattern: Unlabored 02-21-2016 11:03-0400 Weight 81.87 kg Moira Ramsey [facility] Internal Medicine Work Phone: 02-05-2016 11:30-0400 BMI (Body Mass Index) 28.7 kg/m2 Moira Ramsey [facility] Internal Medicine Work Phone: 02-05-2016 11:30-0400 Body weight 81.87 kg Moira Ramsey [facility] Internal Medicine Work Phone: 02-05-2016 11:30-0400 BP Diastolic 82 mm[Hg] Moira Ramsey [facility] Internal Medicine Work Phone: Comment on above: Patient Position: Sitting; Cuff Location : Left Arm; Cuff Size: Standard 02-05-2016 11:30-0400 BP Systolic 130 mm[Hg] Moira Ramsey [facility] Internal Medicine Work Phone: Comment on above: Patient Position: Sitting; Cuff Location : Left Arm; Cuff Size: Standard 02-05-2016 11:30-0400 BSA (Body Surface Area) 1.93 m2 Moira Ramsey [facility] Internal Medicine Work Phone: 02-05-2016 11:30-0400 Height 168.91 cm Moira Ramsey [facility] Internal Medicine Work Phone: 02-05-2016 11:30-0400 Pulse (Heart Rate) 101 /min Moira Ramsey [facility] Internal Medicine Work Phone: Comment on above: Pattern: Regular 02-05-2016 11:30-0400 Pulse Oximetry 95 % Moira Ramsey [facility] Internal Medicine Work Phone: Comment on above: Room air 02-05-2016 11:30-0400 Respiratory Rate 18 /min Moira Ramsey [facility] Internal Medicine Work Phone: Comment on above: Pattern: Unlabored 02-05-2016 11:30-0400 Weight 81.87 kg Moira Ramsey [facility] Internal Medicine Work Phone: 11-21-2015 11:01-0400 BMI (Body Mass Index) 28.78 kg/m2 Moira Ramsey [facility] Internal Medicine Work Phone: 11-21-2015 11:01-0400 Body Temperature 97.1 [degF] Moira Ramsey [facility] Internal Medicine Work Phone: Comment on above: Method: Temporal 11-21-2015 11:01-0400 Body weight 82.1 kg Moira Ramsey [facility] Internal Medicine Work Phone: 11-21-2015 11:01-0400 BP Diastolic 86 mm[Hg] Moira Ramsey [facility] Internal Medicine Work Phone: Comment on above: Patient Position: Sitting; Cuff Location : Left Arm; Cuff Size: Standard 11-21-2015 11:01-0400 BP Systolic 134 mm[Hg] Moira Ramsey [facility] Internal Medicine Work Phone: Comment on above: Patient Position: Sitting; Cuff Location : Left Arm; Cuff Size: Standard 11-21-2015 11:01-0400 BSA (Body Surface Area) 1.93 m2 Moira Ramsey [facility] Internal Medicine Work Phone: 11-21-2015 11:01-0400 Height 168.91 cm Moira Ramsey [facility] Internal Medicine Work Phone: 11-21-2015 11:01-0400 Pulse (Heart Rate) 72 /min Moira Ramsey [facility] Internal Medicine Work Phone: Comment on above: Pattern: Regular 11-21-2015 11:01-0400 Pulse Oximetry 96 % Moira Ramsey [facility] Internal Medicine Work Phone: Comment on above: Room air 11-21-2015 11:01-0400 Respiratory Rate 16 /min Moira Ramsey [facility] Internal Medicine Work Phone: Comment on above: Pattern: Unlabored 11-21-2015 11:01-0400 Weight 82.1 kg Moira Ramsey [facility] Internal Medicine Work Phone: 10-23-2015 08:55-0500 BMI (Body Mass Index) 28.62 kg/m2 Moira Ramsey [facility] Internal Medicine Work Phone: 10-23-2015 08:55-0500 Body Temperature 97.7 [degF] Moira Ramsey [facility] Internal Medicine Work Phone: 10-23-2015 08:55-0500 Body weight 81.65 kg Moira Ramsey [facility] Internal Medicine Work Phone: 10-23-2015 08:55-0500 BP Diastolic 80 mm[Hg] Moira Ramsey [facility] Internal Medicine Work Phone: Comment on above: Patient Position: Sitting; Cuff Location : Left Arm; Cuff Size: Standard 10-23-2015 08:55-0500 BP Systolic 118 mm[Hg] Moira Ramsey [facility] Internal Medicine Work Phone: Comment on above: Patient Position: Sitting; Cuff Location : Left Arm; Cuff Size: Standard 10-23-2015 08:55-0500 BSA (Body Surface Area) 1.92 m2 Moira Ramsey [facility] Internal Medicine Work Phone: 10-23-2015 08:55-0500 Height 168.91 cm Moira Ramsey [facility] Internal Medicine Work Phone: 10-23-2015 08:55-0500 Pulse (Heart Rate) 108 /min Moira Ramsey [facility] Internal Medicine Work Phone: Comment on above: Pattern: Regular 10-23-2015 08:55-0500 Pulse Oximetry 97 % Moira Ramsey [facility] Internal Medicine Work Phone: Comment on above: Room air 10-23-2015 08:55-0500 Respiratory Rate 18 /min Moira Ramsey [facility] Internal Medicine Work Phone: Comment on above: Pattern: Unlabored 10-23-2015 08:55-0500 Weight 81.65 kg Moira Ramsey [facility] Internal Medicine Work Phone: 10-03-2015 10:38-0500 BMI (Body Mass Index) 28.62 kg/m2 Moira Ramsey [facility] Internal Medicine Work Phone: 10-03-2015 10:38-0500 Body Temperature 98.1 [degF] Moira Ramsey [facility] Internal Medicine Work Phone: Comment on above: Method: Temporal 10-03-2015 10:38-0500 Body weight 81.65 kg Moira Ramsey [facility] Internal Medicine Work Phone: 10-03-2015 10:38-0500 BP Diastolic 80 mm[Hg] Moira Ramsey [facility] Internal Medicine Work Phone: Comment on above: Patient Position: Sitting; Cuff Location : Left Arm; Cuff Size: Standard 10-03-2015 10:38-0500 BP Systolic 122 mm[Hg] Moira Ramsey [facility] Internal Medicine Work Phone: Comment on above: Patient Position: Sitting; Cuff Location : Left Arm; Cuff Size: Standard 10-03-2015 10:38-0500 BSA (Body Surface Area) 1.92 m2 Moira Ramsey [facility] Internal Medicine Work Phone: 10-03-2015 10:38-0500 Height 168.91 cm Moira Ramsey [facility] Internal Medicine Work Phone: 10-03-2015 10:38-0500 Pulse (Heart Rate) 80 /min Moira Ramsey [facility] Internal Medicine Work Phone: Comment on above: Pattern: Regular 10-03-2015 10:38-0500 Pulse Oximetry 95 % Moira Ramsey [facility] Internal Medicine Work Phone: Comment on above: Room air 10-03-2015 10:38-0500 Respiratory Rate 16 /min Moira Ramsey [facility] Internal Medicine Work Phone: Comment on above: Pattern: Unlabored 10-03-2015 10:38-0500 Weight 81.65 kg Moira Ramsey [facility] Internal Medicine Work Phone: 08-28-2015 12:56-0500 BMI (Body Mass Index) 28.46 kg/m2 Moira Ramsey [facility] Internal Medicine Work Phone: 08-28-2015 12:56-0500 Body Temperature 97.5 [degF] Moira Ramsey [facility] Internal Medicine Work Phone: Comment on above: Method: Temporal 08-28-2015 12:56-0500 Body weight 81.19 kg Moira Ramsey [facility] Internal Medicine Work Phone: 08-28-2015 12:56-0500 BP Diastolic 76 mm[Hg] Moira Ramsey [facility] Internal Medicine Work Phone: Comment on above: Patient Position: Sitting; Cuff Location : Left Arm; Cuff Size: Large 08-28-2015 12:56-0500 BP Systolic 112 mm[Hg] Moira Ramsey [facility] Internal Medicine Work Phone: Comment on above: Patient Position: Sitting; Cuff Location : Left Arm; Cuff Size: Large 08-28-2015 12:56-0500 BSA (Body Surface Area) 1.92 m2 Moira Ramsey [facility] Internal Medicine Work Phone: 08-28-2015 12:56-0500 Height 168.91 cm Moira Ramsey [facility] Internal Medicine Work Phone: 08-28-2015 12:56-0500 Pulse (Heart Rate) 81 /min Moira Rmasey [facility] Internal Medicine Work Phone: Comment on above: Pattern: Regular 08-28-2015 12:56-0500 Pulse Oximetry 98 % Moira Ramsey [facility] Internal Medicine Work Phone: Comment on above: Room air 08-28-2015 12:56-0500 Respiratory Rate 16 /min Moira Ramsey [facility] Internal Medicine Work Phone: Comment on above: Pattern: Unlabored 08-28-2015 12:56-0500 Weight 81.19 kg Moira Ramsey [facility] Internal Medicine Work Phone: 07-18-2015 15:07-0500 BMI (Body Mass Index) 28.3 kg/m2 Moira Ramsey [facility] Internal Medicine Work Phone: 07-18-2015 15:07-0500 Body Temperature 97.8 [degF] Moira Ramsey [facility] Internal Medicine Work Phone: Comment on above: Method: Temporal 07-18-2015 15:07-0500 Body weight 80.74 kg Moria Ramsey [facility] Internal Medicine Work Phone: 07-18-2015 15:07-0500 BP Diastolic 86 mm[Hg] Moira Ramsey [facility] Internal Medicine Work Phone: Comment on above: Patient Position: Sitting; Cuff Location : Left Arm; Cuff Size: Standard 07-18-2015 15:07-0500 BP Systolic 138 mm[Hg] Moira Ramsey [facility] Internal Medicine Work Phone: Comment on above: Patient Position: Sitting; Cuff Location : Left Arm; Cuff Size: Standard 07-18-2015 15:07-0500 BSA (Body Surface Area) 1.91 m2 Moira Ramsey [facility] Internal Medicine Work Phone: 07-18-2015 15:07-0500 Height 168.91 cm Moira Ramsey [facility] Internal Medicine Work Phone: 07-18-2015 15:07-0500 Pulse (Heart Rate) 72 /min Moira Ramsey [facility] Internal Medicine Work Phone: Comment on above: Pattern: Regular 07-18-2015 15:07-0500 Pulse Oximetry 97 % Moira Ramsey [facility] Internal Medicine Work Phone: Comment on above: Room air 07-18-2015 15:07-0500 Respiratory Rate 16 /min Moira Ramsey [facility] Internal Medicine Work Phone: Comment on above: Pattern: Unlabored 07-18-2015 15:07-0500 Weight 80.74 kg Moira Ramsey [facility] Internal Medicine Work Phone: 05-12-2015 13:16-0400 BMI (Body Mass Index) 27.66 kg/m2 Moira Ramsey [facility] Internal Medicine Work Phone: 05-12-2015 13:16-0400 Body Temperature 98 [degF] Moira Ramsey [facility] Internal Medicine Work Phone: Comment on above: Method: Temporal 05-12-2015 13:16-0400 Body weight 78.93 kg Moira Ramsey [facility] Internal Medicine Work Phone: 05-12-2015 13:16-0400 BP Diastolic 92 mm[Hg] Moira Ramsey [facility] Internal Medicine Work Phone: Comment on above: Patient Position: Sitting; Cuff Location : Left Arm; Cuff Size: Standard 05-12-2015 13:16-0400 BP Systolic 122 mm[Hg] Moira Ramsey [facility] Internal Medicine Work Phone: Comment on above: Patient Position: Sitting; Cuff Location : Left Arm; Cuff Size: Standard 05-12-2015 13:16-0400 BSA (Body Surface Area) 1.9 m2 Moira Ramsey [facility] Internal Medicine Work Phone: 05-12-2015 13:16-0400 Height 168.91 cm Moira Ramsey [facility] Internal Medicine Work Phone: 05-12-2015 13:16-0400 Pulse (Heart Rate) 66 /min Moira Ramsey [facility] Internal Medicine Work Phone: Comment on above: Pattern: Regular 05-12-2015 13:16-0400 Pulse Oximetry 96 % Moira Ramsey [facility] Internal Medicine Work Phone: Comment on above: Room air 05-12-2015 13:16-0400 Respiratory Rate 16 /min Moira Ramsey [facility] Internal Medicine Work Phone: Comment on above: Pattern: Unlabored 05-12-2015 13:16-0400 Weight 78.93 kg Moira Ramsey [facility] Internal Medicine Work Phone: 03-20-2015 13:11-0400 BMI (Body Mass Index) 27.35 kg/m2 Moira Ramsey [facility] [facility] Work Phone: 03-20-2015 13:11-0400 Body Temperature 98.2 [degF] Moira Ramsey [facility] Internal Medicine Work Phone: Comment on above: Method: Oral 03-20-2015 13:11-0400 Body weight 78.02 kg Moira Ramsey [facility] Internal Medicine Work Phone: 03-20-2015 13:11-0400 BP Diastolic 66 mm[Hg] Moira Ramsey [facility] Internal Medicine Work Phone: Comment on above: Patient Position: Sitting; Cuff Location : Left Arm; Cuff Size: Large 03-20-2015 13:11-0400 BP Systolic 92 mm[Hg] Moira Ramsey [facility] Internal Medicine Work Phone: Comment on above: Patient Position: Sitting; Cuff Location : Left Arm; Cuff Size: Large 03-20-2015 13:11-0400 BSA (Body Surface Area) 1.89 m2 Moira Ramsey [facility] Internal Medicine Work Phone: 03-20-2015 13:11-0400 Height 168.91 cm Moira Ramsey [facility] Internal Medicine Work Phone: 03-20-2015 13:11-0400 Pulse (Heart Rate) 64 /min Moira Ramsey [facility] Internal Medicine Work Phone: Comment on above: Pattern: Regular 03-20-2015 13:11-0400 Respiratory Rate 16 /min Moira Ramsey [facility] Internal Medicine Work Phone: Comment on above: Pattern: Unlabored 03-20-2015 13:11-0400 Weight 78.02 kg Moira Ramsey [facility] Internal Medicine Work Phone: 11-14-2014 13:02-0400 BMI (Body Mass Index) 27.82 kg/m2 Moira Thayer [facility] Internal [facility] Work Phone: 11-14-2014 13:02-0400 Body Temperature 97.1 [degF] Moira Ramsey [facility] Internal Medicine Work Phone: 11-14-2014 13:02-0400 Body weight 79.38 kg Moira Ramsey [facility] Internal Medicine Work Phone: 11-14-2014 13:02-0400 BP Diastolic 80 mm[Hg] Moira Ramsey [facility] Internal Medicine Work Phone: Comment on above: Patient Position: Sitting; Cuff Location : Left Arm; Cuff Size: Standard 11-14-2014 13:02-0400 BP Systolic 114 mm[Hg] Moira Ramsey [facility] Internal Medicine Work Phone: Comment on above: Patient Position: Sitting; Cuff Location : Left Arm; Cuff Size: Standard 11-14-2014 13:02-0400 BSA (Body Surface Area) 1.9 m2 Moira Ramsey [facility] Internal Medicine Work Phone: 11-14-2014 13:02-0400 Height 168.91 cm Moira Ramsey [facility] Internal Medicine Work Phone: 11-14-2014 13:02-0400 Pulse (Heart Rate) 62 /min Moira Ramsey [facility] Internal Medicine Work Phone: Comment on above: Pattern: Regular 11-14-2014 13:02-0400 Respiratory Rate 16 /min Moira Ramsey [facility] Internal Medicine Work Phone: Comment on above: Pattern: Unlabored 11-14-2014 13:02-0400 Weight 79.38 kg Moira Ramsey [facility] Internal Medicine Work Phone: 11-03-2014 08:49-0400 BMI (Body Mass Index) 28.36 kg/m2 Moira Thayer [facility] Internal Medicine Work Phone: 11-03-2014 08:49-0400 Body Temperature 98.5 [degF] Moira Ramsey [facility] Internal Medicine Work Phone: Comment on above: Method: Temporal 11-03-2014 08:49-0400 Body weight 80.91 kg Moira Ramsey [facility] Internal Medicine Work Phone: 11-03-2014 08:49-0400 BP Diastolic 82 mm[Hg] Moira Ramsey [facility] Internal Medicine Work Phone: Comment on above: Patient Position: Sitting; Cuff Location : Left Arm; Cuff Size: Large 11-03-2014 08:49-0400 BP Systolic 128 mm[Hg] Moira Rmasey [facility] Internal Medicine Work Phone: Comment on above: Patient Position: Sitting; Cuff Location : Left Arm; Cuff Size: Large 11-03-2014 08:49-0400 BSA (Body Surface Area) 1.92 m2 Moira Ramsey [facility] Internal Medicine Work Phone: 11-03-2014 08:49-0400 Height 168.91 cm Moira Ramsey [facility] Internal Medicine Work Phone: 11-03-2014 08:49-0400 Pulse (Heart Rate) 96 /min Moira Ramsey [facility] Internal Medicine Work Phone: Comment on above: Pattern: Regular 11-03-2014 08:49-0400 Pulse Oximetry 97 % Moira Ramsey [facility] Internal Medicine Work Phone: Comment on above: Room air 11-03-2014 08:49-0400 Respiratory Rate 18 /min Moira Ramsey [facility] Internal Medicine Work Phone: Comment on above: Pattern: Unlabored 11-03-2014 08:49-0400 Weight 80.91 kg Moira Ramsey [facility] Internal Medicine Work Phone: 10-05-2014 10:00-0500 BMI (Body Mass Index) 28.36 kg/m2 Moira Ramsey [facility] Internal Medicine Work Phone: 10-05-2014 10:00-0500 Body Temperature 96.8 [degF] Moira Ramsey [facility] Internal Medicine Work Phone: 10-05-2014 10:00-0500 Body weight 80.91 kg Moira Ramsey [facility] Internal Medicine Work Phone: 10-05-2014 10:00-0500 BP Diastolic 82 mm[Hg] Moiar Ramsey [facility] Internal Medicine Work Phone: Comment on above: Patient Position: Sitting; Cuff Location : Left Arm; Cuff Size: Standard 10-05-2014 10:00-0500 BP Systolic 122 mm[Hg] Moira Ramsey [facility] Internal Medicine Work Phone: Comment on above: Patient Position: Sitting; Cuff Location : Left Arm; Cuff Size: Standard 10-05-2014 10:00-0500 BSA (Body Surface Area) 1.92 m2 Moira Ramsey [facility] Internal Medicine Work Phone: 10-05-2014 10:00-0500 Height 168.91 cm Moira Ramsey [facility] Internal Medicine Work Phone: 10-05-2014 10:00-0500 Pulse (Heart Rate) 78 /min Moira Ramsey [facility] Internal Medicine Work Phone: Comment on above: Pattern: Regular 10-05-2014 10:00-0500 Pulse Oximetry 98 % Moira Ramsey [facility] Internal Medicine Work Phone: Comment on above: Room air 10-05-2014 10:00-0500 Respiratory Rate 16 /min Moira Ramsey [facility] Internal Medicine Work Phone: Comment on above: Pattern: Unlabored 10-05-2014 10:00-0500 Weight 80.91 kg Moira Ramsey [facility] Internal Medicine Work Phone: 07-18-2014 13:00-0500 BMI (Body Mass Index) 28.46 kg/m2 Moira Ramsey [facility] Internal Medicine Work Phone: 07-18-2014 13:00-0500 Body Temperature 98.3 [degF] Moira Ramsey [facility] Internal Medicine Work Phone: Comment on above: Method: Temporal 07-18-2014 13:00-0500 Body weight 81.19 kg Moira Ramsey [facility] Internal Medicine Work Phone: 07-18-2014 13:00-0500 BP Diastolic 78 mm[Hg] Moira Ramsey [facility] Internal Medicine Work Phone: Comment on above: Patient Position: Sitting; Cuff Location : Left Arm; Cuff Size: Large 07-18-2014 13:00-0500 BP Systolic 122 mm[Hg] Moira Ramsey [facility] Internal Medicine Work Phone: Comment on above: Patient Position: Sitting; Cuff Location : Left Arm; Cuff Size: Large 07-18-2014 13:00-0500 BSA (Body Surface Area) 1.92 m2 Moira Ramsey [facility] Internal Medicine Work Phone: 07-18-2014 13:00-0500 Height 168.91 cm Moira Ramsey [facility] Internal Medicine Work Phone: 07-18-2014 13:00-0500 Pulse (Heart Rate) 87 /min Moira Ramsey [facility] Internal Medicine Work Phone: Comment on above: Pattern: Regular 07-18-2014 13:00-0500 Pulse Oximetry 96 % Moira Ramsey [facility] Internal Medicine Work Phone: Comment on above: Room air 07-18-2014 13:00-0500 Respiratory Rate 18 /min Moira Ramsey [facility] Internal Medicine Work Phone: Comment on above: Pattern: Unlabored 07-18-2014 13:00-0500 Weight 81.19 kg Moira Ramsey [facility] Internal Medicine Work Phone: 04-13-2014 09:52-0400 BMI (Body Mass Index) 27.5 kg/m2 Moira Ramsey [facility] Internal Medicine Work Phone: 04-13-2014 09:52-0400 Body Temperature 98.5 [degF] Moira Ramsey [facility] Internal Medicine Work Phone: Comment on above: Method: Oral 04-13-2014 09:52-0400 Body weight 78.47 kg Moira Ramsey [facility] Internal Medicine Work Phone: 04-13-2014 09:52-0400 BP Diastolic 62 mm[Hg] Moira Ramsey [facility] Internal Medicine Work Phone: Comment on above: Patient Position: Sitting; Cuff Location : Left Arm; Cuff Size: Standard 04-13-2014 09:52-0400 BP Systolic 115 mm[Hg] Moira Ramsey [facility] Internal Medicine Work Phone: Comment on above: Patient Position: Sitting; Cuff Location : Left Arm; Cuff Size: Standard 04-13-2014 09:52-0400 BSA (Body Surface Area) 1.89 m2 Moira Ramsey [facility] Internal Medicine Work Phone: 04-13-2014 09:52-0400 Height 168.91 cm Moira Ramsey [facility] Internal Medicine Work Phone: 04-13-2014 09:52-0400 Pulse (Heart Rate) 75 /min Moira Ramsey [facility] Internal Medicine Work Phone: Comment on above: Pattern: Regular 04-13-2014 09:52-0400 Respiratory Rate 16 /min Moira Ramsey [facility] Internal Medicine Work Phone: Comment on above: Pattern: Unlabored 04-13-2014 09:52-0400 Weight 78.47 kg Moira Ramsey [facility] Internal Medicine Work Phone: 04-04-2014 11:04-0400 BMI (Body Mass Index) 27.5 kg/m2 Moira Ramsey [facility] Internal Medicine Work Phone: 04-04-2014 11:04-0400 Body Temperature 98.3 [degF] Moira Ramsey [facility] Internal Medicine Work Phone: 04-04-2014 11:04-0400 Body weight 78.47 kg Moira Ramsey [facility] Internal Medicine Work Phone: 04-04-2014 11:04-0400 BP Diastolic 64 mm[Hg] Moira Ramsey [facility] Internal Medicine Work Phone: Comment on above: Patient Position: Sitting; Cuff Location : Left Arm; Cuff Size: Large 04-04-2014 11:04-0400 BP Systolic 102 mm[Hg] Moira Ramsey [facility] Internal Medicine Work Phone: Comment on above: Patient Position: Sitting; Cuff Location : Left Arm; Cuff Size: Large 04-04-2014 11:04-0400 BSA (Body Surface Area) 1.89 m2 Moira Ramsey [facility] Internal Medicine Work Phone: 04-04-2014 11:04-0400 Height 168.91 cm Moira Ramsey [facility] Internal Medicine Work Phone: 04-04-2014 11:04-0400 Pulse (Heart Rate) 78 /min Moira Ramsey [facility] Internal Medicine Work Phone: Comment on above: Pattern: Regular 04-04-2014 11:04-0400 Respiratory Rate 16 /min Moira Ramsey [facility] Internal Medicine Work Phone: Comment on above: Pattern: Unlabored 04-04-2014 11:04-0400 Weight 78.47 kg Moira Ramsey [facility] Internal Medicine Work Phone: 03-15-2014 13:58-0400 BMI (Body Mass Index) 27.66 kg/m2 Moira Ramsey [facility] Internal Medicine Work Phone: 03-15-2014 13:58-0400 Body Temperature 99.1 [degF] Moira Ramsey [facility] Internal Medicine Work Phone: 03-15-2014 13:58-0400 Body weight 78.93 kg Moira Ramsey [facility] Internal Medicine Work Phone: 03-15-2014 13:58-0400 BP Diastolic 82 mm[Hg] Moira Ramsey [facility] Internal Medicine Work Phone: Comment on above: Patient Position: Sitting; Cuff Location : Left Arm; Cuff Size: Large 03-15-2014 13:58-0400 BP Systolic 122 mm[Hg] Moira Ramsey [facility] Internal Medicine Work Phone: Comment on above: Patient Position: Sitting; Cuff Location : Left Arm; Cuff Size: Large 03-15-2014 13:58-0400 BSA (Body Surface Area) 1.9 m2 Moira Ramsey [facility] Internal Medicine Work Phone: 03-15-2014 13:58-0400 Height 168.91 cm Moira Ramsey [facility] Internal Medicine Work Phone: 03-15-2014 13:58-0400 Pulse (Heart Rate) 62 /min Moira Ramsey [facility] Internal Medicine Work Phone: Comment on above: Pattern: Regular 03-15-2014 13:58-0400 Respiratory Rate 16 /min Moira Ramsey [facility] Internal Medicine Work Phone: Comment on above: Pattern: Unlabored 03-15-2014 13:58-0400 Weight 78.93 kg Moira Ramsey [facility] Internal Medicine Work Phone: 12-27-2013 13:50-0400 BMI (Body Mass Index) 27.82 kg/m2 Moira Ramsey [facility] Internal Medicine Work Phone: 12-27-2013 13:50-0400 Body Temperature 97.5 [degF] Moira Ramsey [facility] Internal Medicine Work Phone: 12-27-2013 13:50-0400 Body weight 79.38 kg Moira Ramsey [facility] Internal Medicine Work Phone: 12-27-2013 13:50-0400 BP Diastolic 66 mm[Hg] Moira Rasmey [facility] Internal Medicine Work Phone: Comment on above: Patient Position: Sitting; Cuff Location : Left Arm; Cuff Size: Large 12-27-2013 13:50-0400 BP Systolic 100 mm[Hg] Moira Ramsey [facility] Internal Medicine Work Phone: Comment on above: Patient Position: Sitting; Cuff Location : Left Arm; Cuff Size: Large 12-27-2013 13:50-0400 BSA (Body Surface Area) 1.9 m2 Moira Ramsey [facility] Internal Medicine Work Phone: 12-27-2013 13:50-0400 Height 168.91 cm Moira Ramsey [facility] Internal Medicine Work Phone: 12-27-2013 13:50-0400 Pulse (Heart Rate) 68 /min Moira Ramsey [facility] Internal Medicine Work Phone: Comment on above: Pattern: Regular 12-27-2013 13:50-0400 Respiratory Rate 16 /min Moira Ramsey [facility] Internal Medicine Work Phone: Comment on above: Pattern: Unlabored 12-27-2013 13:50-0400 Weight 79.38 kg Moira Ramsey [facility] Internal Medicine Work Phone: 11-02-2013 13:45-0400 BMI (Body Mass Index) 27.5 kg/m2 Moira Ramsey [facility] Internal Medicine Work Phone: 11-02-2013 13:45-0400 Body Temperature 98.8 [degF] Moira Ramsey [facility] Internal Medicine Work Phone: 11-02-2013 13:45-0400 Body weight 78.47 kg Moira Ramsey [facility] Internal Medicine Work Phone: 11-02-2013 13:45-0400 BP Diastolic 70 mm[Hg] Moira Ramsey [facility] Internal Medicine Work Phone: Comment on above: Patient Position: Sitting; Cuff Location : Left Arm; Cuff Size: Large 11-02-2013 13:45-0400 BP Systolic 102 mm[Hg] Moira Ramsey [facility] Internal Medicine Work Phone: Comment on above: Patient Position: Sitting; Cuff Location : Left Arm; Cuff Size: Large 11-02-2013 13:45-0400 BSA (Body Surface Area) 1.89 m2 Moira Ramsey [facility] Internal Medicine Work Phone: 11-02-2013 13:45-0400 Height 168.91 cm Moira Ramsey [facility] Internal Medicine Work Phone: 11-02-2013 13:45-0400 Pulse (Heart Rate) 64 /min Moira Ramsey [facility] Internal Medicine Work Phone: Comment on above: Pattern: Regular 11-02-2013 13:45-0400 Respiratory Rate 18 /min Moira Ramsey [facility] Internal Medicine Work Phone: Comment on above: Pattern: Unlabored 11-02-2013 13:45-0400 Weight 78.47 kg Moira Ramsey [facility] Internal Medicine Work Phone: 10-29-2013 13:17-0500 BMI (Body Mass Index) 27.5 kg/m2 [facility] Work Phone: 10-29-2013 13:17-0500 Body Temperature 97.2 [degF] Moira Ramsey [facility] Internal Medicine Work Phone: 10-29-2013 13:17-0500 Body weight 78.47 kg Moira Ramsey [facility] Internal Medicine Work Phone: 10-29-2013 13:17-0500 BP Diastolic 62 mm[Hg] Moira Ramsey [facility] Internal Medicine Work Phone: Comment on above: Patient Position: Sitting; Cuff Location : Left Arm; Cuff Size: Large 10-29-2013 13:17-0500 BP Systolic 108 mm[Hg] Moira Ramsey [facility] Internal Medicine Work Phone: Comment on above: Patient Position: Sitting; Cuff Location : Left Arm; Cuff Size: Large 10-29-2013 13:17-0500 BSA (Body Surface Area) 1.89 m2 Moira Ramsey [facility] Internal Medicine Work Phone: 10-29-2013 13:17-0500 Height 168.91 cm Moira Ramsey [facility] Internal Medicine Work Phone: 10-29-2013 13:17-0500 Pulse (Heart Rate) 62 /min Moira Ramsey [facility] Internal Medicine Work Phone: Comment on above: Pattern: Regular 10-29-2013 13:17-0500 Respiratory Rate 16 /min Moira Ramsey [facility] Internal Medicine Work Phone: Comment on above: Pattern: Unlabored 10-29-2013 13:17-0500 Weight 78.47 kg Moira Ramsey [facility] Internal Medicine Work Phone: 07-02-2013 14:54-0500 BP Diastolic 84 mm[Hg] Moira Ramsey [facility] Internal Medicine Work Phone: Comment on above: Patient Position: Sitting 11-08-2013 14:54-0500 BP Systolic 124 mm[Hg] Moira Ramsey [facility] Internal Medicine Work Phone: Comment on above: Patient Position: Sitting 07-02-2013 13:43-0500 BMI (Body Mass Index) 28.14 kg/m2 Moira Ramsey [facility] Internal Medicine Work Phone: 07-02-2013 13:43-0500 Body Temperature 97.8 [degF] Moira Ramsey [facility] Internal Medicine Work Phone: 07-02-2013 13:43-0500 Body weight 80.29 kg Moira Ramsey [facility] Internal Medicine Work Phone: 07-02-2013 13:43-0500 BP Diastolic 90 mm[Hg] Moira Ramsey [facility] Internal Medicine Work Phone: Comment on above: Patient Position: Sitting; Cuff Location : Left Arm; Cuff Size: Large 07-02-2013 13:43-0500 BP Systolic 124 mm[Hg] Moira Ramsey [facility] Internal Medicine Work Phone: Comment on above: Patient Position: Sitting; Cuff Location : Left Arm; Cuff Size: Large 07-02-2013 13:43-0500 BSA (Body Surface Area) 1.91 m2 Moira Ramsey [facility] Internal Medicine Work Phone: 07-02-2013 13:43-0500 Height 168.91 cm Moira Ramsey [facility] Internal Medicine Work Phone: 07-02-2013 13:43-0500 Pulse (Heart Rate) 60 /min Moira Ramsey [facility] Internal Medicine Work Phone: Comment on above: Pattern: Regular 07-02-2013 13:43-0500 Respiratory Rate 16 /min Moira Ramsey [facility] Internal Medicine Work Phone: Comment on above: Pattern: Unlabored 07-02-2013 13:43-0500 Weight 80.29 kg Moira Ramsey [facility] Internal Medicine Work Phone: 03-30-2013 13:50-0400 BMI (Body Mass Index) 29.25 kg/m2 Moira Thayer [facility] Internal Medicine Work Phone: 03-30-2013 13:50-0400 Body Temperature 95.6 [degF] Moira Ramsey [facility] Internal Medicine Work Phone: 03-30-2013 13:50-0400 Body weight 83.46 kg Moira Ramsey [facility] Internal Medicine Work Phone: 03-30-2013 13:50-0400 BP Diastolic 70 mm[Hg] Moira Ramsey [facility] Internal Medicine Work Phone: Comment on above: Patient Position: Sitting; Cuff Location : Left Arm; Cuff Size: Large 03-30-2013 13:50-0400 BP Systolic 104 mm[Hg] Moira Ramsey [facility] Internal Medicine Work Phone: Comment on above: Patient Position: Sitting; Cuff Location : Left Arm; Cuff Size: Large 03-30-2013 13:50-0400 BSA (Body Surface Area) 1.94 m2 Moira Ramsey [facility] Internal Medicine Work Phone: 03-30-2013 13:50-0400 Height 168.91 cm Moira Ramsey [facility] Internal Medicine Work Phone: 03-30-2013 13:50-0400 Pulse (Heart Rate) 66 /min Moira Ramsey [facility] Internal Medicine Work Phone: Comment on above: Pattern: Regular 03-30-2013 13:50-0400 Respiratory Rate 18 /min Moira Ramsey [facility] Internal Medicine Work Phone: Comment on above: Pattern: Unlabored 03-30-2013 13:50-0400 Weight 83.46 kg Moira Ramsey [facility] Internal Medicine Work Phone: 12-29-2012 10:32-0400 BMI (Body Mass Index) 30.53 kg/m2 Moira Thayer [facility] Internal Medicine Work Phone: 12-29-2012 10:32-0400 Body Temperature 97 [degF] Moira Ramsey [facility] Internal Medicine Work Phone: 12-29-2012 10:32-0400 Body weight 87.09 kg Moira Ramsey [facility] Internal Medicine Work Phone: 12-29-2012 10:32-0400 BP Diastolic 70 mm[Hg] Moira Ramsey [facility] Internal Medicine Work Phone: Comment on above: Patient Position: Sitting; Cuff Location : Left Arm; Cuff Size: Large 12-29-2012 10:32-0400 BP Systolic 118 mm[Hg] Moira Ramsey [facility] Internal Medicine Work Phone: Comment on above: Patient Position: Sitting; Cuff Location : Left Arm; Cuff Size: Large 12-29-2012 10:32-0400 BSA (Body Surface Area) 1.98 m2 Moira Ramsey [facility] Internal Medicine Work Phone: 12-29-2012 10:32-0400 Height 168.91 cm Moira Ramsey [facility] Internal Medicine Work Phone: 12-29-2012 10:32-0400 Pulse (Heart Rate) 72 /min Moira Ramsey [facility] Internal Medicine Work Phone: Comment on above: Pattern: Regular 12-29-2012 10:32-0400 Respiratory Rate 16 /min Moira Ramsey [facility] Internal Medicine Work Phone: Comment on above: Pattern: Unlabored 12-29-2012 10:32-0400 Weight 87.09 kg Moira Ramsey [facility] Internal Medicine Work Phone: 10-26-2012 10:36-0500 Body Temperature 98.3 [degF] Moira Ramsey [facility] Internal Medicine Work Phone: Comment on above: Method: Oral 10-26-2012 10:36-0500 BP Diastolic 78 mm[Hg] Moira Ramsey [facility] Internal Medicine Work Phone: Comment on above: Patient Position: Sitting; Cuff Location : Left Arm; Cuff Size: Standard 10-26-2012 10:36-0500 BP Systolic 124 mm[Hg] Moira Ramsey [facility] Internal Medicine Work Phone: Comment on above: Patient Position: Sitting; Cuff Location : Left Arm; Cuff Size: Standard 10-26-2012 10:36-0500 Pulse (Heart Rate) 66 /min Moira Ramsey [facility] Internal Medicine Work Phone: Comment on above: Pattern: Regular 10-26-2012 10:36-0500 Respiratory Rate 18 /min Moira Ramsey [facility] Internal Medicine Work Phone: 10-05-2012 08:50-0500 BMI (Body Mass Index) 30.21 kg/m2 Moira Ramsey [facility] Internal Medicine Work Phone: 10-05-2012 08:50-0500 Body Temperature 98.7 [degF] Moira Ramsey [facility] Internal Medicine Work Phone: 10-05-2012 08:50-0500 Body weight 86.18 kg Moira Ramsey [facility] Internal Medicine Work Phone: 10-05-2012 08:50-0500 BP Diastolic 70 mm[Hg] Moira Ramsey [facility] Internal Medicine Work Phone: Comment on above: Patient Position: Sitting; Cuff Location : Left Arm; Cuff Size: Large 10-05-2012 08:50-0500 BP Systolic 100 mm[Hg] Moira Ramsey [facility] Internal Medicine Work Phone: Comment on above: Patient Position: Sitting; Cuff Location : Left Arm; Cuff Size: Large 10-05-2012 08:50-0500 BSA (Body Surface Area) 1.97 m2 Moira Ramsey [facility] Internal Medicine Work Phone: 10-05-2012 08:50-0500 Height 168.91 cm Moira Ramsey [facility] Internal Medicine Work Phone: 10-05-2012 08:50-0500 Pulse (Heart Rate) 76 /min Moira Ramsey [facility] Internal Medicine Work Phone: Comment on above: Pattern: Regular 10-05-2012 08:50-0500 Respiratory Rate 16 /min Moira Ramsey [facility] Internal Medicine Work Phone: Comment on above: Pattern: Unlabored 10-05-2012 08:50-0500 Weight 86.18 kg Moira Ramsey [facility] Internal Medicine Work Phone: 09-15-2012 13:09-0500 BMI (Body Mass Index) 30.84 kg/m2 Moira Thayer cheri Internal Medicine Work Phone: 09-15-2012 13:09-0500 Body Temperature 98.8 [degF] Moira Ramsey [facility] Internal Medicine Work Phone: Comment on above: Method: Oral 09-15-2012 13:09-0500 Body weight 88 kg Moira Ramsey [facility] Internal Medicine Work Phone: 09-15-2012 13:09-0500 BP Diastolic 76 mm[Hg] Moira Ramsey [facility] Internal Medicine Work Phone: Comment on above: Patient Position: Sitting; Cuff Location : Left Arm; Cuff Size: Standard 09-15-2012 13:09-0500 BP Systolic 122 mm[Hg] Moira Ramsey [facility] Internal Medicine Work Phone: Comment on above: Patient Position: Sitting; Cuff Location : Left Arm; Cuff Size: Standard 09-15-2012 13:09-0500 BSA (Body Surface Area) 1.99 m2 Moira Ramsey [facility] Internal Medicine Work Phone: 09-15-2012 13:09-0500 Height 168.91 cm Moira Ramsey [facility] Internal Medicine Work Phone: 09-15-2012 13:09-0500 Pulse (Heart Rate) 64 /min Moira Ramsey [facility] Internal Medicine Work Phone: Comment on above: Pattern: Regular 09-15-2012 13:09-0500 Respiratory Rate 16 /min Moira Ramsey [facility] Internal Medicine Work Phone: Comment on above: Pattern: Unlabored 09-15-2012 13:09-0500 Weight 88 kg Moira Ramsey [facility] Internal Medicine Work Phone: 09-02-2012 08:05-0500 BMI (Body Mass Index) 30.84 kg/m2 Moira Thayer cheri Internal Medicine Work Phone: 09-02-2012 08:05-0500 Body Temperature 99.5 [degF] Moira Ramsey [facility] Internal Medicine Work Phone: Comment on above: Method: Oral 09-02-2012 08:05-0500 Body weight 88 kg Moira Ramsey [facility] Internal Medicine Work Phone: 09-02-2012 08:05-0500 BP Diastolic 78 mm[Hg] Moira Ramsey [facility] Internal Medicine Work Phone: Comment on above: Patient Position: Sitting; Cuff Location : Left Arm; Cuff Size: Standard 09-02-2012 08:05-0500 BP Systolic 130 mm[Hg] Moira Ramsey [facility] Internal Medicine Work Phone: Comment on above: Patient Position: Sitting; Cuff Location : Left Arm; Cuff Size: Standard 09-02-2012 08:05-0500 BSA (Body Surface Area) 1.99 m2 Moira Ramsey [facility] Internal Medicine Work Phone: 09-02-2012 08:05-0500 Height 168.91 cm Moira Ramsey [facility] Internal Medicine Work Phone: 09-02-2012 08:05-0500 Pulse (Heart Rate) 84 /min Moira Ramsey [facility] Internal Medicine Work Phone: Comment on above: Pattern: Regular 09-02-2012 08:05-0500 Pulse Oximetry 94 % Moira Ramsey [facility] Internal Medicine Work Phone: Comment on above: Room air 09-02-2012 08:05-0500 Respiratory Rate 17 /min Moira Ramsey [facility] Internal Medicine Work Phone: 09-02-2012 08:05-0500 Weight 88 kg Moira Ramsey [facility] Internal Medicine Work Phone: 07-21-2012 10:33-0500 BMI (Body Mass Index) 30.84 kg/m2 Moira Ramsey [facility] Internal Medicine Work Phone: 07-21-2012 10:33-0500 Body Temperature 97.8 [degF] Moira Ramsey [facility] Internal Medicine Work Phone: Comment on above: Method: Oral 07-21-2012 10:33-0500 Body weight 88 kg Moira Ramsey [facility] Internal Medicine Work Phone: 07-21-2012 10:33-0500 BP Diastolic 76 mm[Hg] Moira Ramsey [facility] Internal Medicine Work Phone: Comment on above: Patient Position: Sitting; Cuff Location : Left Arm; Cuff Size: Standard 07-21-2012 10:33-0500 BP Systolic 128 mm[Hg] Moira Ramsey [facility] Internal Medicine Work Phone: Comment on above: Patient Position: Sitting; Cuff Location : Left Arm; Cuff Size: Standard 07-21-2012 10:33-0500 BSA (Body Surface Area) 1.99 m2 Moira Ramsey [facility] Internal Medicine Work Phone: 07-21-2012 10:33-0500 Height 168.91 cm Moira Ramsey [facility] Internal Medicine Work Phone: 07-21-2012 10:33-0500 Pulse (Heart Rate) 66 /min Moira Ramsey [facility] Internal Medicine Work Phone: Comment on above: Pattern: Regular 07-21-2012 10:33-0500 Pulse Oximetry 98 % Moira Ramsey [facility] Internal Medicine Work Phone: Comment on above: Room air 07-21-2012 10:33-0500 Respiratory Rate 16 /min Moira Ramsey [facility] Internal Medicine Work Phone: Comment on above: Pattern: Unlabored 07-21-2012 10:33-0500 Weight 88 kg Moira Ramsey [facility] Internal Medicine Work Phone: 07-08-2012 12:58-0500 BMI (Body Mass Index) 30.84 kg/m2 Moira Ramsey [facility] Internal Medicine Work Phone: 07-08-2012 12:58-0500 Body Temperature 96.7 [degF] Moira Ramsey [facility] Internal Medicine Work Phone: Comment on above: Method: Oral 07-08-2012 12:58-0500 Body weight 88 kg Moira Ramsey [facility] Internal Medicine Work Phone: 07-08-2012 12:58-0500 BP Diastolic 76 mm[Hg] Moira Ramsey [facility] Internal Medicine Work Phone: Comment on above: Patient Position: Sitting 07-08-2012 12:58-0500 BP Systolic 130 mm[Hg] Moira Ramsey [facility] Internal Medicine Work Phone: Comment on above: Patient Position: Sitting 07-08-2012 12:58-0500 BSA (Body Surface Area) 1.99 m2 Moira Ramsey [facility] Internal Medicine Work Phone: 07-08-2012 12:58-0500 Height 168.91 cm Moira Ramsey [facility] Internal Medicine Work Phone: 07-08-2012 12:58-0500 Pulse (Heart Rate) 80 /min Moira Ramsey [facility] Internal Medicine Work Phone: Comment on above: Pattern: Regular 07-08-2012 12:58-0500 Respiratory Rate 16 /min Moira Ramsey [facility] Internal Medicine Work Phone: 07-08-2012 12:58-0500 Weight 88 kg Moira Ramsey [facility] Internal Medicine Work Phone: 05-08-2012 10:07-0400 BMI (Body Mass Index) 30.28 kg/m2 [facility] Work Phone: 05-08-2012 10:07-0400 Body Temperature 97.4 [degF] Moira Ramsey [facility] Internal Medicine Work Phone: Comment on above: Method: Oral 05-08-2012 10:07-0400 Body weight 86.38 kg Moira Ramsey [facility] Internal Medicine Work Phone: 05-08-2012 10:07-0400 BP Diastolic 64 mm[Hg] Moira Ramsey [facility] Internal Medicine Work Phone: Comment on above: Patient Position: Sitting; Cuff Location : Left Arm; Cuff Size: Large 05-08-2012 10:07-0400 BP Systolic 118 mm[Hg] Moira Ramsey [facility] Internal Medicine Work Phone: Comment on above: Patient Position: Sitting; Cuff Location : Left Arm; Cuff Size: Large 05-08-2012 10:07-0400 BSA (Body Surface Area) 1.97 m2 Moira Ramsey [facility] Internal Medicine Work Phone: 05-08-2012 10:07-0400 Height 168.91 cm Moira Ramsey [facility] Internal Medicine Work Phone: 05-08-2012 10:07-0400 Pulse (Heart Rate) 64 /min Moira Ramsey [facility] Internal Medicine Work Phone: Comment on above: Pattern: Regular 05-08-2012 10:070400 Respiratory Rate 16 /min Moira Ramsey [facility] Internal Medicine Work Phone: Comment on above: Pattern: Unlabored 05-08-2012 10:07-0400 Weight 86.38 kg Moira Ramsey [facility] Internal Medicine Work Phone: 03-25-2012 13:07-0400 BMI (Body Mass Index) 29.25 kg/m2 Moira Ramsey [facility] Internal Medicine Work Phone: 03-25-2012 13:07-0400 Body Temperature 97 [degF] Moira Ramsey [facility] Internal Medicine Work Phone: Comment on above: Method: Oral 03-25-2012 13:07-0400 Body weight 83.46 kg Moira Ramsey [facility] Internal Medicine Work Phone: 03-25-2012 13:07-0400 BP Diastolic 76 mm[Hg] Moira Ramsey [facility] Internal Medicine Work Phone: Comment on above: Patient Position: Sitting; Cuff Location : Left Arm; Cuff Size: Standard 03-25-2012 13:07-0400 BP Systolic 122 mm[Hg] Moira Ramsey [facility] Internal Medicine Work Phone: Comment on above: Patient Position: Sitting; Cuff Location : Left Arm; Cuff Size: Standard 03-25-2012 13:07-0400 BSA (Body Surface Area) 1.94 m2 Moira Ramsey [facility] Internal Medicine Work Phone: 03-25-2012 13:07-0400 Height 168.91 cm Moira Ramsey [facility] Internal Medicine Work Phone: 03-25-2012 13:07-0400 Pulse (Heart Rate) 62 /min Moira Ramsey [facility] Internal Medicine Work Phone: Comment on above: Pattern: Regular 03-25-2012 13:07-0400 Respiratory Rate 16 /min Moira Ramsey [facility] Internal Medicine Work Phone: Comment on above: Pattern: Unlabored 03-25-2012 13:07-0400 Weight 83.46 kg Moira Ramsey [facility] Internal Medicine Work Phone: 12-23-2011 13:12-0400 BMI (Body Mass Index) 29.25 kg/m2 Moira Ramsey [facility] Internal Medicine Work Phone: 12-23-2011 13:12-0400 Body Temperature 98 [degF] Moira Ramsey [facility] Internal Medicine Work Phone: 12-23-2011 13:12-0400 Body weight 83.46 kg Moira Ramsey [facility] Internal Medicine Work Phone: 12-23-2011 13:12-0400 BP Diastolic 72 mm[Hg] Moira Ramsey [facility] Internal Medicine Work Phone: Comment on above: Patient Position: Sitting; Cuff Location : Left Arm; Cuff Size: Large 12-23-2011 13:120400 BP Systolic 100 mm[Hg] Moira Ramsey [facility] Internal Medicine Work Phone: Comment on above: Patient Position: Sitting; Cuff Location : Left Arm; Cuff Size: Large 12-23-2011 13:12-0400 BSA (Body Surface Area) 1.94 m2 Moira Ramsey [facility] Internal Medicine Work Phone: 12-23-2011 13:12-0400 Height 168.91 cm Moira Ramsey [facility] Internal Medicine Work Phone: 12-23-2011 13:12-0400 Pulse (Heart Rate) 72 /min Moira Ramsey [facility] Internal Medicine Work Phone: Comment on above: Pattern: Regular 12-23-2011 13:12-0400 Respiratory Rate 16 /min Moira Ramsey [facility] Internal Medicine Work Phone: Comment on above: Pattern: Unlabored 12-23-2011 13:12-0400 Weight 83.46 kg Moira Ramsey [facility] Internal Medicine Work Phone: 11-04-2011 14:08-0400 BMI (Body Mass Index) 28.62 kg/m2 Moira Ramsey [facility] Internal Medicine Work Phone: 11-04-2011 14:08-0400 Body Temperature 98 [degF] Moira Ramsey [facility] Internal Medicine Work Phone: 11-04-2011 14:08-0400 Body weight 81.65 kg Moira Ramsey [facility] Internal Medicine Work Phone: 11-04-2011 14:08-0400 BP Diastolic 70 mm[Hg] Moira Ramsey [facility] Internal Medicine Work Phone: Comment on above: Patient Position: Sitting; Cuff Location : Left Arm; Cuff Size: Large 11-04-2011 14:08-0400 BP Systolic 120 mm[Hg] Moira Ramsey [facility] Internal Medicine Work Phone: Comment on above: Patient Position: Sitting; Cuff Location : Left Arm; Cuff Size: Large 11-04-2011 14:08-0400 BSA (Body Surface Area) 1.92 m2 Moira Ramsey [facility] Internal Medicine Work Phone: 11-04-2011 14:08-0400 Height 168.91 cm Moira Ramsey [facility] Internal Medicine Work Phone: 11-04-2011 14:08-0400 Pulse (Heart Rate) 72 /min Moira Ramsey [facility] Internal Medicine Work Phone: Comment on above: Pattern: Regular 11-04-2011 14:08-0400 Respiratory Rate 16 /min Moira Ramsey [facility] Internal Medicine Work Phone: Comment on above: Pattern: Unlabored 11-04-2011 14:08-0400 Weight 81.65 kg Moira Ramsey [facility] Internal Medicine Work Phone: 09-24-2011 12:09-0500 BMI (Body Mass Index) 29.57 kg/m2 Moira Thayer cheri Internal Medicine Work Phone: 09-24-2011 12:09-0500 Body Temperature 97.6 [degF] Moira Ramsey [facility] Internal Medicine Work Phone: 09-24-2011 12:09-0500 Body weight 84.37 kg Moira Ramsey [facility] Internal Medicine Work Phone: 09-24-2011 12:09-0500 BP Diastolic 80 mm[Hg] Moira Ramsey [facility] Internal Medicine Work Phone: Comment on above: Patient Position: Sitting; Cuff Location : Left Arm; Cuff Size: Large 09-24-2011 12:09-0500 BP Systolic 114 mm[Hg] Moira Ramsey [facility] Internal Medicine Work Phone: Comment on above: Patient Position: Sitting; Cuff Location : Left Arm; Cuff Size: Large 09-24-2011 12:09-0500 BSA (Body Surface Area) 1.95 m2 Moira Ramsey [facility] Internal Medicine Work Phone: 09-24-2011 12:09-0500 Height 168.91 cm Moira Ramsey [facility] Internal Medicine Work Phone: 09-24-2011 12:09-0500 Pulse (Heart Rate) 62 /min Moira Ramsey [facility] Internal Medicine Work Phone: Comment on above: Pattern: Regular 09-24-2011 12:09-0500 Respiratory Rate 16 /min Moira Ramsey [facility] Internal Medicine Work Phone: Comment on above: Pattern: Unlabored 09-24-2011 12:09-0500 Weight 84.37 kg Moira Ramsey [facility] Internal Medicine Work Phone: 09-12-2011 11:02-0500 BMI (Body Mass Index) 29.11 kg/m2 Moira Thayer cheri Internal Medicine Work Phone: 09-12-2011 11:02-0500 Body Temperature 97.1 [degF] Moira Ramsey [facility] Internal Medicine Work Phone: Comment on above: Method: Oral 09-12-2011 11:02-0500 Body weight 83.07 kg Moira Ramsey [facility] Internal Medicine Work Phone: 09-12-2011 11:02-0500 BP Diastolic 86 mm[Hg] Moira Ramsey [facility] Internal Medicine Work Phone: Comment on above: Patient Position: Sitting; Cuff Location : Left Arm; Cuff Size: Large 09-12-2011 11:02-0500 BP Systolic 122 mm[Hg] Moira Ramsey [facility] Internal Medicine Work Phone: Comment on above: Patient Position: Sitting; Cuff Location : Left Arm; Cuff Size: Large 09-12-2011 11:02-0500 BSA (Body Surface Area) 1.94 m2 Moria Ramsey [facility] Internal Medicine Work Phone: 09-12-2011 11:02-0500 Height 168.91 cm Moira Ramsey [facility] Internal Medicine Work Phone: 09-12-2011 11:02-0500 Pulse (Heart Rate) 60 /min Moira Ramsey [facility] Internal Medicine Work Phone: Comment on above: Pattern: Regular 09-12-2011 11:02-0500 Respiratory Rate 20 /min Moira Ramsey [facility] Internal Medicine Work Phone: Comment on above: Pattern: Unlabored 09-12-2011 11:02-0500 Weight 83.07 kg Moira Ramsey [facility] Internal Medicine Work Phone: 07-15-2011 10:35-0500 BMI (Body Mass Index) 29.41 kg/m2 Moira Ramsey [facility] Internal Medicine Work Phone: 07-15-2011 10:35-0500 Body Temperature 98.4 [degF] Moira Ramsey [facility] Internal Medicine Work Phone: 07-15-2011 10:35-0500 Body weight 83.92 kg Moira Ramsey [facility] Internal Medicine Work Phone: 07-15-2011 10:35-0500 BP Diastolic 64 mm[Hg] Moira Ramsey [facility] Internal Medicine Work Phone: Comment on above: Patient Position: Sitting; Cuff Location : Left Arm; Cuff Size: Large 07-15-2011 10:35-0500 BP Systolic 118 mm[Hg] Moira Ramsey [facility] Internal Medicine Work Phone: Comment on above: Patient Position: Sitting; Cuff Location : Left Arm; Cuff Size: Large 07-15-2011 10:35-0500 BSA (Body Surface Area) 1.95 m2 Moira Ramsey [facility] Internal Medicine Work Phone: 07-15-2011 10:35-0500 Height 168.91 cm Moira Ramsey [facility] Internal Medicine Work Phone: 07-15-2011 10:35-0500 Pulse (Heart Rate) 64 /min Moira Ramsey [facility] Internal Medicine Work Phone: Comment on above: Pattern: Regular 07-15-2011 10:35-0500 Respiratory Rate 18 /min Moira Ramsey [facility] Internal Medicine Work Phone: Comment on above: Pattern: Unlabored 07-15-2011 10:35-0500 Weight 83.92 kg Moira Ramsey [facility] Internal Medicine Work Phone: 06-21-2011 10:36-0400 BMI (Body Mass Index) 29.09 kg/m2 Moira Ramsey [facility] Internal Medicine Work Phone: 06-21-2011 10:36-0400 Body Temperature 97.8 [degF] Moira Ramsey [facility] Internal Medicine Work Phone: 06-21-2011 10:36-0400 Body weight 83.01 kg Moira Ramsey [facility] Internal Medicine Work Phone: 06-21-2011 10:36-0400 BP Diastolic 80 mm[Hg] Moira Ramsey [facility] Internal Medicine Work Phone: Comment on above: Patient Position: Sitting; Cuff Location : Left Arm; Cuff Size: Large 06-21-2011 10:36-0400 BP Systolic 120 mm[Hg] Moira Ramsey [facility] Internal Medicine Work Phone: Comment on above: Patient Position: Sitting; Cuff Location : Left Arm; Cuff Size: Large 06-21-2011 10:36-0400 BSA (Body Surface Area) 1.94 m2 Moira Ramsey [facility] Internal Medicine Work Phone: 06-21-2011 10:36-0400 Height 168.91 cm Moira Ramsey [facility] Internal Medicine Work Phone: 06-21-2011 10:36-0400 Pulse (Heart Rate) 72 /min Moira Ramsey [facility] Internal Medicine Work Phone: Comment on above: Pattern: Regular 06-21-2011 10:36-0400 Respiratory Rate 18 /min Moira Ramsey [facility] Internal Medicine Work Phone: Comment on above: Pattern: Unlabored 06-21-2011 10:36-0400 Weight 83.01 kg Moira Rasmey [facility] Internal Medicine Work Phone: 03-20-2011 11:17-0400 BMI (Body Mass Index) 28.27 kg/m2 Moira Ramsey [facility] Internal Medicine Work Phone: 03-20-2011 11:17-0400 Body Temperature 96.6 [degF] Moira Ramsey [facility] Internal Medicine Work Phone: Comment on above: Method: Oral 03-20-2011 11:17-0400 Body weight 80.65 kg Moira Ramsey [facility] Internal Medicine Work Phone: 03-20-2011 11:17-0400 BP Diastolic 74 mm[Hg] Moira Ramsey [facility] Internal Medicine Work Phone: Comment on above: Patient Position: Sitting; Cuff Location : Left Arm; Cuff Size: Standard 03-20-2011 11:17-0400 BP Systolic 122 mm[Hg] Moira Ramsey [facility] Internal Medicine Work Phone: Comment on above: Patient Position: Sitting; Cuff Location : Left Arm; Cuff Size: Standard 03-20-2011 11:17-0400 BSA (Body Surface Area) 1.91 m2 Moira Ramsey [facility] Internal Medicine Work Phone: 03-20-2011 11:17-0400 Height 168.91 cm Moira Ramsey [facility] Internal Medicine Work Phone: 03-20-2011 11:17-0400 Pulse (Heart Rate) 76 /min Moira Ramsey [facility] Internal Medicine Work Phone: Comment on above: Pattern: Regular 03-20-2011 11:17-0400 Respiratory Rate 16 /min Moira Ramsey [facility] Internal Medicine Work Phone: Comment on above: Pattern: Unlabored 03-20-2011 11:17-0400 Weight 80.65 kg Moira Ramsey [facility] Internal Medicine Work Phone: 01-08-2011 13:08-0400 BMI (Body Mass Index) 27.35 kg/m2 Moira Ramsey [facility] Internal Medicine Work Phone: 01-08-2011 13:08-0400 Body Temperature 96.3 [degF] Moira Ramsey [facility] Internal Medicine Work Phone: 01-08-2011 13:08-0400 Body weight 78.02 kg Moira Ramsey [facility] Internal Medicine Work Phone: 01-08-2011 13:08-0400 BP Diastolic 84 mm[Hg] Moira Ramsey [facility] Internal Medicine Work Phone: Comment on above: Patient Position: Sitting; Cuff Location : Left Arm; Cuff Size: Large 01-08-2011 13:08-0400 BP Systolic 114 mm[Hg] Moira Ramsey [facility] Internal Medicine Work Phone: Comment on above: Patient Position: Sitting; Cuff Location : Left Arm; Cuff Size: Large 01-08-2011 13:08-0400 BSA (Body Surface Area) 1.89 m2 Moira Ramsey [facility] Internal Medicine Work Phone: 01-08-2011 13:08-0400 Height 168.91 cm Moiar Ramsey [facility] Internal Medicine Work Phone: 01-08-2011 13:08-0400 Pulse (Heart Rate) 72 /min Moira Ramsey [facility] Internal Medicine Work Phone: Comment on above: Pattern: Regular 01-08-2011 13:08-0400 Respiratory Rate 16 /min Moira Ramsey [facility] Internal Medicine Work Phone: Comment on above: Pattern: Unlabored 01-08-2011 13:08-0400 Weight 78.02 kg Moira Ramsey [facility] Internal Medicine Work Phone: 11-16-2010 14:11-0400 BMI (Body Mass Index) 26.67 kg/m2 Moira Ramsey [facility] Internal Medicine Work Phone: 11-16-2010 14:11-0400 Body Temperature 96.9 [degF] Moira Ramsey [facility] Internal Medicine Work Phone: 11-16-2010 14:11-0400 Body weight 76.66 kg Moira Ramsey [facility] Internal Medicine Work Phone: 11-16-2010 14:11-0400 BP Diastolic 80 mm[Hg] Moira Ramsey [facility] Internal Medicine Work Phone: Comment on above: Patient Position: Sitting; Cuff Location : Left Arm; Cuff Size: Large 11-16-2010 14:11-0400 BP Systolic 122 mm[Hg] Moira Ramsey [facility] Internal Medicine Work Phone: Comment on above: Patient Position: Sitting; Cuff Location : Left Arm; Cuff Size: Large 11-16-2010 14:11-0400 BSA (Body Surface Area) 1.88 m2 Moira Ramsey [facility] Internal Medicine Work Phone: 11-16-2010 14:11-0400 Height 169.55 cm Moira Ramsey [facility] Internal Medicine Work Phone: 11-16-2010 14:11-0400 Pulse (Heart Rate) 68 /min Moira Ramsey [facility] Internal Medicine Work Phone: Comment on above: Pattern: Regular 11-16-2010 14:11-0400 Respiratory Rate 16 /min Moira Ramsey [facility] Internal Medicine Work Phone: Comment on above: Pattern: Unlabored 11-16-2010 14:11-0400 Weight 76.66 kg Moira Ramsey [facility] Internal Medicine Work Phone: 10-22-2010 11:56-0500 Body Temperature 98.1 [degF] Moira [facility] Work Phone: 10-22-2010 11:56-0500 Body weight 78.02 kg Moira Ramsey [facility] Internal Medicine Work Phone: 10-22-2010 11:56-0500 BP Diastolic 78 mm[Hg] Moira [facility] Work Phone: Comment on above: Patient Position: Sitting; Cuff Location : Left Arm; Cuff Size: Standard 10-22-2010 11:56-0500 BP Systolic 109 mm[Hg] Moira [facility] Work Phone: Comment on above: Patient Position: Sitting; Cuff Location : Left Arm; Cuff Size: Standard 10-22-2010 11:56-0500 Pulse (Heart Rate) 80 /min Moira Ramsey [facility] Internal Medicine Work Phone: Comment on above: Pattern: Regular 10-22-2010 11:56-0500 Respiratory Rate 16 /min Moira Ramsey [facility] Internal Medicine Work Phone: Comment on above: Pattern: Unlabored 10-22-2010 11:56-0500 Weight 78.02 kg Moira Ramsey [facility] Internal Medicine Work Phone: 08-14-2010 08:22-0500 Body Temperature 97.7 [degF] Moira Ramsey [facility] Internal Medicine Work Phone: 08-14-2010 08:22-0500 Body weight 76.66 kg Moira Ramsey [facility] Internal Medicine Work Phone: 08-14-2010 08:22-0500 BP Diastolic 70 mm[Hg] Moira Ramsey [facility] Internal Medicine Work Phone: Comment on above: Patient Position: Sitting; Cuff Location : Left Arm; Cuff Size: Large 08-14-2010 08:22-0500 BP Systolic 110 mm[Hg] Moira Ramsey [facility] Work Phone: Comment on above: Patient Position: Sitting; Cuff Location : Left Arm; Cuff Size: Large 08-14-2010 08:22-0500 Pulse (Heart Rate) 68 /min Moira Ramsey [facility] Internal Medicine Work Phone: Comment on above: Pattern: Regular 08-14-2010 08:22-0500 Respiratory Rate 18 /min Moira Ramsey [facility] Internal Medicine Work Phone: Comment on above: Pattern: Unlabored 08-14-2010 08:22-0500 Weight 76.66 kg Moira Ramsey [facility] Internal Medicine Work Phone: 07-16-2010 16:47-0500 Body Temperature 99 [degF] Moira Ramsey [facility] Internal Medicine Work Phone: 07-16-2010 16:47-0500 Body weight 76.66 kg Moira Ramsey [facility] Internal Medicine Work Phone: 07-16-2010 16:47-0500 BP Diastolic 70 mm[Hg] Moira Ramsey [facility] Internal Medicine Work Phone: Comment on above: Patient Position: Sitting; Cuff Location : Left Arm; Cuff Size: Large 07-16-2010 16:47-0500 BP Systolic 100 mm[Hg] Moira Ramsey [facility] Internal Medicine Work Phone: Comment on above: Patient Position: Sitting; Cuff Location : Left Arm; Cuff Size: Large 07-16-2010 16:47-0500 Pulse (Heart Rate) 80 /min Moira Ramsey [facility] Internal Medicine Work Phone: Comment on above: Pattern: Regular 07-16-2010 16:47-0500 Respiratory Rate 18 /min Moira Ramsey [facility] Internal Medicine Work Phone: Comment on above: Pattern: Unlabored 07-16-2010 16:47-0500 Weight 76.66 kg Moira Ramsey [facility] Internal Medicine Work Phone: 06-12-2010 14:06-0400 Body Temperature 96.1 [degF] Moira Ramsey [facility] Internal Medicine Work Phone: Comment on above: Method: Oral 06-12-2010 14:06-0400 Body weight 76.93 kg Moira Ramsey [facility] Work Phone: 06-12-2010 14:06-0400 BP Diastolic 66 mm[Hg] Moira [facility] Work Phone: Comment on above: Patient Position: Sitting; Cuff Location : Left Arm; Cuff Size: Standard 06-12-2010 14:06-0400 BP Systolic 116 mm[Hg] Moira [facility] Work Phone: Comment on above: Patient Position: Sitting; Cuff Location : Left Arm; Cuff Size: Standard 06-12-2010 14:06-0400 Pulse (Heart Rate) 68 /min Moira Ramsey [facility] Internal Medicine Work Phone: Comment on above: Pattern: Regular 06-12-2010 14:06-0400 Respiratory Rate 18 /min oMira Ramsey [facility] Work Phone: Comment on above: Pattern: Unlabored 06-12-2010 14:06-0400 Weight 76.93 kg Moira Ramsey [facility] Internal Medicine Work Phone: 06-01-2010 11:14-0400 Body Temperature 97 [degF] Moira aRmsey [facility] Medicine Work Phone: Comment on above: Method: Oral 06-01-2010 11:14-0400 Body weight 80.74 kg Moira Ramsey [facility] Medicine Work Phone: 06-01-2010 11:14-0400 BP Diastolic 68 mm[Hg] Moira Ramsey [facility] Work Phone: Comment on above: Patient Position: Sitting; Cuff Location : Left Arm; Cuff Size: Standard 06-01-2010 11:14-0400 BP Systolic 122 mm[Hg] Moira [facility] Work Phone: Comment on above: Patient Position: Sitting; Cuff Location : Left Arm; Cuff Size: Standard 06-01-2010 11:14-0400 Pulse (Heart Rate) 72 /min Moira [facility] Work Phone: Comment on above: Pattern: Regular 06-01-2010 11:14-0400 Respiratory Rate 18 /min Moira Maria Internal Medicine Work Phone: Comment on above: Pattern: Unlabored 06-01-2010 11:14-0400 Weight 80.74 kg Moira Maria Internal Medicine Work Phone: 03-07-2010 13:31-0400 Body weight 80.74 kg Moiar Maria [facility] Work Phone: 03-07-2010 13:31-0400 BP Diastolic 76 mm[Hg] Moira [facility] Work Phone: Comment on above: Patient Position: Sitting; Cuff Location : Left Arm; Cuff Size: Standard 03-07-2010 13:31-0400 BP Systolic 124 mm[Hg] Moira [facility] Work Phone: Comment on above: Patient Position: Sitting; Cuff Location : Left Arm; Cuff Size: Standard 03-07-2010 13:31-0400 Pulse (Heart Rate) 80 /min Moira [facility] Work Phone: Comment on above: Pattern: Regular 03-07-2010 13:31-0400 Respiratory Rate 16 /min Moira Ramsey [facility] Internal Medicine Work Phone: Comment on above: Pattern: Unlabored 03-07-2010 13:31-0400 Weight 80.74 kg Moira Ramsey [facility] Internal Medicine Work Phone: 01-03-2010 11:14-0400 Body Temperature 97.4 [degF] Moira Ramsey [facility] Work Phone: Comment on above: Method: Oral 01-03-2010 11:14-0400 Body weight 79.83 kg Moira Maria Internal Medicine Work Phone: 01-03-2010 11:14-0400 BP Diastolic 76 mm[Hg] Moira [facility] Work Phone: Comment on above: Patient Position: Sitting; Cuff Location : Left Arm; Cuff Size: Standard 01-03-2010 11:14-0400 BP Systolic 112 mm[Hg] Moira [facility] Work Phone: Comment on above: Patient Position: Sitting; Cuff Location : Left Arm; Cuff Size: Standard 01-03-2010 11:14-0400 Pulse (Heart Rate) 70 /min Moira [facility] Work Phone: Comment on above: Pattern: Regular 01-03-2010 11:14-0400 Respiratory Rate 18 /min Moira [facility] Work Phone: Comment on above: Pattern: Unlabored 01-03-2010 11:14-0400 Weight 79.83 kg Moira Ramsey [facility] Work Phone: 11-29-2009 11:00-0400 Body weight 79.83 kg Moira Ramsey [facility] Work Phone: 11-29-2009 11:00-0400 BP Diastolic 78 mm[Hg] Moira [facility] Work Phone: Comment on above: Patient Position: Sitting; Cuff Location : Left Arm; Cuff Size: Standard 11-29-2009 11:00-0400 BP Systolic 122 mm[Hg] Moira [facility] Work Phone: Comment on above: Patient Position: Sitting; Cuff Location : Left Arm; Cuff Size: Standard 11-29-2009 11:00-0400 Pulse (Heart Rate) 68 /min Moira [facility] Work Phone: Comment on above: Pattern: Regular 11-29-2009 11:00-0400 Respiratory Rate 18 /min Moira [facility] Work Phone: Comment on above: Pattern: Unlabored 11-29-2009 11:00-0400 Weight 79.83 kg Moira Ramsey [facility] Work Phone: 09-04-2009 15:23-0500 Body Temperature 97.8 [degF] Moira [facility] Work Phone: 09-04-2009 15:23-0500 Body weight 82.1 kg Moira Ramsey [facility] Medicine Work Phone: 09-04-2009 15:23-0500 BP Diastolic 82 mm[Hg] Moira Ramsey [facility] Work Phone: Comment on above: Patient Position: Sitting; Cuff Location : Left Arm; Cuff Size: Large 09-04-2009 15:23-0500 BP Systolic 124 mm[Hg] Moira Ramsey [facility] Work Phone: Comment on above: Patient Position: Sitting; Cuff Location : Left Arm; Cuff Size: Large 09-04-2009 15:23-0500 Pulse (Heart Rate) 80 /min Moira Ramsey [facility] Work Phone: Comment on above: Pattern: Regular 09-04-2009 15:23-0500 Respiratory Rate 16 /min Moira Ramsey [facility] Medicine Work Phone: Comment on above: Pattern: Unlabored 09-04-2009 15:23-0500 Weight 82.1 kg Moira Ramsey [facility] Internal [facility] Work Phone: 07-19-2009 08:50-0500 BMI (Body Mass Index) 26.23 kg/m2 Moira Ramsey [facility] Internal Medicine Work Phone: 07-19-2009 08:50-0500 Body Temperature 98.9 [degF] Moira Ramsey [facility] Internal Medicine Work Phone: Comment on above: Method: Oral 07-19-2009 08:50-0500 Body weight 78.25 kg Moira Ramsey [facility] Medicine Work Phone: 07-19-2009 08:50-0500 BP Diastolic 68 mm[Hg] Moira Ramsey [facility] Work Phone: Comment on above: Patient Position: Sitting; Cuff Location : Left Arm; Cuff Size: Large 07-19-2009 08:50-0500 BP Systolic 118 mm[Hg] Moira Ramsey [facility] Work Phone: Comment on above: Patient Position: Sitting; Cuff Location : Left Arm; Cuff Size: Large 07-19-2009 08:50-0500 BSA (Body Surface Area) 1.92 m2 Moira Ramsey [facility] Work Phone: 07-19-2009 08:50-0500 Head Circumference 0 cm Moira Ramsey [facility] Work Phone: 07-19-2009 08:50-0500 Height 172.72 cm Moira Ramsey [facility] Work Phone: 07-19-2009 08:50-0500 Pulse (Heart Rate) 68 /min Moira Ramsey [facility] Medicine Work Phone: Comment on above: Pattern: Regular 07-19-2009 08:50-0500 Respiratory Rate 18 /min Moira Ramsey [facility] Work Phone: Comment on above: Pattern: Unlabored 07-19-2009 08:50-0500 Weight 78.25 kg Moira Ramsey [facility] Work Phone: 06-14-2009 13:53-0400 Body Temperature 98.2 [degF] Moira Ramsey [facility] Work Phone: Comment on above: Method: Undefined 06-14-2009 13:53-0400 Body weight 78.47 kg Moira Ramsey [facility] Work Phone: 06-14-2009 13:53-0400 BP Diastolic 70 mm[Hg] Moira Ramsey [facility] Work Phone: Comment on above: Patient Position: Sitting; Cuff Location : Right Arm; Cuff Size: Standard 06-14-2009 13:53-0400 BP Systolic 118 mm[Hg] Moira Ramsey [facility] Work Phone: Comment on above: Patient Position: Sitting; Cuff Location : Right Arm; Cuff Size: Standard 06-14-2009 13:53-0400 Head Circumference 0 cm Moira Ramsey [facility] Work Phone: 06-14-2009 13:53-0400 Height 0 cm Moira Ramsey [facility] Work Phone: 06-14-2009 13:53-0400 Pulse (Heart Rate) 76 /min Moira Maria Internal Medicine Work Phone: Comment on above: Pattern: Regular 06-14-2009 13:53-0400 Respiratory Rate 18 /min Moira Maria Internal Medicine Work Phone: Comment on above: Pattern: Undefined 06-14-2009 13:53-0400 Weight 78.47 kg Moira Ramsey [facility] Work Phone: 03-01-2009 13:20-0400 Body Temperature 97.1 [degF] Moira Ramsey [facility] Work Phone: Comment on above: Method: Undefined 03-01-2009 13:20-0400 Body weight 74.39 kg Moira Maria Internal Medicine Work Phone: 03-01-2009 13:20-0400 BP Diastolic 84 mm[Hg] Moira Ramsey [facility] Work Phone: Comment on above: Patient Position: Sitting; Cuff Location : Right Arm; Cuff Size: Standard 03-01-2009 13:20-0400 BP Systolic 132 mm[Hg] Moira [facility] Work Phone: Comment on above: Patient Position: Sitting; Cuff Location : Right Arm; Cuff Size: Standard 03-01-2009 13:20-0400 Head Circumference 0 cm Moira Ramsey [facility] Work Phone: 03-01-2009 13:20-0400 Height 0 cm Moira Ramsey [facility] Work Phone: 03-01-2009 13:20-0400 Pulse (Heart Rate) 62 /min Moira [facility] Work Phone: Comment on above: Pattern: Regular 03-01-2009 13:20-0400 Respiratory Rate 18 /min Moira Ramsey [facility] Work Phone: Comment on above: Pattern: Undefined 03-01-2009 13:20-0400 Weight 74.39 kg Moira Ramsey [facility] Work Phone: 01-18-2009 15:44-0400 BMI (Body Mass Index) 25.24 kg/m2 Moira Ramsey [facility] Internal Medicine Work Phone: 01-18-2009 15:44-0400 Body Temperature 95.7 [degF] Moira Ramsey [facility] Work Phone: Comment on above: Method: Undefined 01-18-2009 15:44-0400 Body weight 75.3 kg Moira Ramsey [facility] Work Phone: 01-18-2009 15:44-0400 BP Diastolic 84 mm[Hg] Moira Ramsey [facility] Work Phone: Comment on above: Patient Position: Sitting; Cuff Location : Right Arm; Cuff Size: Standard 01-18-2009 15:44-0400 BP Systolic 130 mm[Hg] Moira Ramsey [facility] Work Phone: Comment on above: Patient Position: Sitting; Cuff Location : Right Arm; Cuff Size: Standard 01-18-2009 15:44-0400 BSA (Body Surface Area) 1.89 m2 Moira Ramsey [facility] Work Phone: 01-18-2009 15:44-0400 Head Circumference 0 cm Moira Ramsey [facility] Work Phone: 01-18-2009 15:44-0400 Height 172.72 cm Moira Ramsey [facility] Work Phone: 01-18-2009 15:44-0400 Pulse (Heart Rate) 60 /min Moira Ramsey [facility] Work Phone: Comment on above: Pattern: Regular 01-18-2009 15:44-0400 Respiratory Rate 16 /min Moira Ramsey [facility] Work Phone: Comment on above: Pattern: Undefined 01-18-2009 15:44-0400 Weight 75.3 kg Moira Ramsey [facility] Work Phone: 10-18-2008 16:25-0500 Body Temperature 96.9 [degF] Moira Ramsey [facility] Work Phone: Comment on above: Method: Undefined 10-18-2008 16:25-0500 Body weight 83.46 kg Moira Ramsey [facility] Work Phone: 10-18-2008 16:25-0500 BP Diastolic 74 mm[Hg] Moira Ramsey [facility] Work Phone: Comment on above: Patient Position: Sitting; Cuff Location : Left Arm; Cuff Size: Large 10-18-2008 16:25-0500 BP Systolic 136 mm[Hg] Moira Ramsey [facility] Work Phone: Comment on above: Patient Position: Sitting; Cuff Location : Left Arm; Cuff Size: Large 10-18-2008 16:25-0500 Head Circumference 0 cm Moira Ramsey [facility] Work Phone: 10-18-2008 16:25-0500 Height 0 cm Moira Ramsey [facility] Work Phone: 10-18-2008 16:25-0500 Pulse (Heart Rate) 58 /min Moira Ramsey [facility] Work Phone: Comment on above: Pattern: Regular 10-18-2008 16:25-0500 Respiratory Rate 16 /min Moira Ramsey [facility] Work Phone: Comment on above: Pattern: Undefined 10-18-2008 16:25-0500 Weight 83.46 kg Moira Ramsey [facility] Work Phone: 07-20-2008 12:51-0500 Body Temperature 98 [degF] Moira Ramsey [facility] Work Phone: Comment on above: Method: Oral 07-20-2008 12:51-0500 Body weight 83.21 kg Moira Ramsey [facility] Work Phone: 07-20-2008 12:51-0500 BP Diastolic 70 mm[Hg] Moira Ramsey [facility] Work Phone: Comment on above: Patient Position: Sitting; Cuff Location : Left Arm; Cuff Size: Standard 07-20-2008 12:51-0500 BP Systolic 110 mm[Hg] Moira Ramsey [facility] Work Phone: Comment on above: Patient Position: Sitting; Cuff Location : Left Arm; Cuff Size: Standard 07-20-2008 12:51-0500 Head Circumference 0 cm Moira Ramsey [facility] Work Phone: 07-20-2008 12:51-0500 Height 0 cm Moira Ramsey [facility] Work Phone: 07-20-2008 12:51-0500 Pulse (Heart Rate) 73 /min Moira Ramsey [facility] Work Phone: Comment on above: Pattern: Regular 07-20-2008 12:51-0500 Pulse Oximetry 99 % Moira Ramesy [facility] Work Phone: Comment on above: Room air 07-20-2008 12:51-0500 Respiratory Rate 18 /min Moira Ramsey [facility] Work Phone: Comment on above: Pattern: Unlabored 07-20-2008 12:51-0500 Weight 83.21 kg Moira Ramsey [facility] Work Phone: 07-06-2008 16:14-0500 Body Temperature 95.6 [degF] Moira Ramsey [facility] Work Phone: Comment on above: Method: Undefined 07-06-2008 16:14-0500 Body weight 81.65 kg Moira Ramsey [facility] Work Phone: 07-06-2008 16:14-0500 BP Diastolic 94 mm[Hg] Moira Ramsey [facility] Work Phone: Comment on above: Patient Position: Sitting; Cuff Location : Right Arm; Cuff Size: Large 07-06-2008 16:14-0500 BP Systolic 146 mm[Hg] Moira Ramsey [facility] Work Phone: Comment on above: Patient Position: Sitting; Cuff Location : Right Arm; Cuff Size: Large 07-06-2008 16:14-0500 Head Circumference 0 cm Moira Ramsey [facility] Work Phone: 07-06-2008 16:14-0500 Height 0 cm Moira Ramsey [facility] Work Phone: 07-06-2008 16:14-0500 Pulse (Heart Rate) 56 /min Moira Maria Internal Medicine Work Phone: Comment on above: Pattern: Regular 07-06-2008 16:14-0500 Respiratory Rate 16 /min Moira Ramsey [facility] Work Phone: Comment on above: Pattern: Undefined 07-06-2008 16:14-0500 Weight 81.65 kg Moira Ramsey [facility] Work Phone: 04-14-2008 15:47-0400 Body Temperature 98.2 [degF] Moira Ramsey [facility] Work Phone: Comment on above: Method: Undefined 04-14-2008 15:47-0400 Body weight 0 kg Moira Ramsey [facility] Work Phone: 04-14-2008 15:47-0400 BP Diastolic 74 mm[Hg] Moira Ramsey [facility] Work Phone: Comment on above: Patient Position: Sitting; Cuff Location : Left Arm; Cuff Size: Large 04-14-2008 15:47-0400 BP Systolic 112 mm[Hg] Moira Ramsey [facility] Work Phone: Comment on above: Patient Position: Sitting; Cuff Location : Left Arm; Cuff Size: Large 04-14-2008 15:47-0400 Head Circumference 0 cm Moira Ramsey [facility] Work Phone: 04-14-2008 15:47-0400 Height 0 cm Moira Ramsey [facility] Work Phone: 04-14-2008 15:47-0400 Pulse (Heart Rate) 68 /min Moira Maria Internal Medicine Work Phone: Comment on above: Pattern: Regular 04-14-2008 15:47-0400 Pulse Oximetry 98 % Moira Ramsey [facility] Work Phone: Comment on above: Room air 04-14-2008 15:47-0400 Respiratory Rate 18 /min Moira Ramsey [facility] Work Phone: Comment on above: Pattern: Unlabored 04-14-2008 15:47-0400 Weight 0 kg Moira Ramsey [facility] Work Phone: 03-30-2008 15:51-0400 BMI (Body Mass Index) 27.88 kg/m2 Moira Ramsey [facility] Internal Medicine Work Phone: 03-30-2008 15:51-0400 Body Temperature 98.3 [degF] Moira Ramsey [facility] Work Phone: Comment on above: Method: Undefined 03-30-2008 15:51-0400 Body weight 80.74 kg Moira Ramsey [facility] Work Phone: 03-30-2008 15:51-0400 BP Diastolic 70 mm[Hg] Moira Ramsey [facility] Work Phone: Comment on above: Patient Position: Sitting; Cuff Location : Right Arm; Cuff Size: Standard 03-30-2008 15:51-0400 BP Systolic 120 mm[Hg] Moira Ramsey [facility] Work Phone: Comment on above: Patient Position: Sitting; Cuff Location : Right Arm; Cuff Size: Standard 03-30-2008 15:51-0400 BSA (Body Surface Area) 1.92 m2 Moira Ramsey [facility] Work Phone: 03-30-2008 15:51-0400 Head Circumference 0 cm Moira Ramsey [facility] Work Phone: 03-30-2008 15:51-0400 Height 170.18 cm Moira Ramsey [facility] Work Phone: 03-30-2008 15:51-0400 Pulse (Heart Rate) 68 /min Moira Ramsey [facility] Work Phone: Comment on above: Pattern: Regular 03-30-2008 15:51-0400 Respiratory Rate 16 /min Moira Ramsey [facility] Work Phone: Comment on above: Pattern: Undefined 03-30-2008 15:51-0400 Weight 80.74 kg Moira Ramsey [facility] Work Phone: 02-08-2008 13:02-0400 BMI (Body Mass Index) 27.37 kg/m2 [facility] Work Phone: 02-08-2008 13:02-0400 Body weight 81.65 kg Moira Ramsey [facility] Work Phone: 02-08-2008 13:02-0400 BP Diastolic 88 mm[Hg] Moira Ramsey [facility] Work Phone: Comment on above: Patient Position: Sitting; Cuff Location : Left Arm; Cuff Size: Standard 02-08-2008 13:02-0400 BP Systolic 138 mm[Hg] Moira Ramsey [facility] Work Phone: Comment on above: Patient Position: Sitting; Cuff Location : Left Arm; Cuff Size: Standard 02-08-2008 13:02-0400 BSA (Body Surface Area) 1.95 m2 Moira Ramsey [facility] Work Phone: 02-08-2008 13:02-0400 Head Circumference 0 cm Moira Ramsey [facility] Work Phone: 02-08-2008 13:02-0400 Height 172.72 cm Moira Ramsey [facility] Work Phone: 02-08-2008 13:02-0400 Pulse (Heart Rate) 60 /min Moira Ramsey [facility] Work Phone: Comment on above: Pattern: Regular 02-08-2008 13:02-0400 Respiratory Rate 16 /min Moira Ramsey [facility] Work Phone: Comment on above: Pattern: Unlabored 02-08-2008 13:02-0400 Weight 81.65 kg Moira Ramsey [facility] Work Phone: 01-06-2008 16:15-0400 BMI (Body Mass Index) 27.06 kg/m2 [facility] Work Phone: 01-06-2008 16:15-0400 Body Temperature 97.9 [degF] Moira Ramsey [facility] Work Phone: Comment on above: Method: Undefined 01-06-2008 16:15-0400 Body weight 80.74 kg Moira Ramsey [facility] Work Phone: 01-06-2008 16:15-0400 BP Diastolic 94 mm[Hg] Moira Ramsey [facility] Work Phone: Comment on above: Patient Position: Sitting; Cuff Location : Left Arm; Cuff Size: Standard 01-06-2008 16:15-0400 BP Systolic 142 mm[Hg] Moira Ramsey [facility] Work Phone: Comment on above: Patient Position: Sitting; Cuff Location : Left Arm; Cuff Size: Standard 01-06-2008 16:15-0400 BSA (Body Surface Area) 1.95 m2 Moira Ramsey [facility] Work Phone: 01-06-2008 16:15-0400 Head Circumference 0 cm Moira Ramsey [facility] Work Phone: 01-06-2008 16:15-0400 Height 172.72 cm Moira Ramsey [facility] Work Phone: 01-06-2008 16:15-0400 Pulse (Heart Rate) 56 /min Moira Ramsey [facility] Work Phone: Comment on above: Pattern: Regular 01-06-2008 16:15-0400 Respiratory Rate 16 /min Moira Ramsey [facility] Work Phone: Comment on above: Pattern: Undefined 01-06-2008 16:15-0400 Weight 80.74 kg Moira Ramsey [facility] Work Phone: 10-05-2007 15:31-0500 BMI (Body Mass Index) 26.3 kg/m2 [facility] Work Phone: 10-05-2007 15:31-0500 Body Temperature 96.8 [degF] Moira Ramsey [facility] Work Phone: Comment on above: Method: Oral 10-05-2007 15:31-0500 Body weight 78.47 kg Moira Ramsey [facility] Work Phone: 10-05-2007 15:31-0500 BP Diastolic 76 mm[Hg] Moira Ramsey [facility] Work Phone: Comment on above: Patient Position: Sitting; Cuff Location : Left Arm; Cuff Size: Standard 10-05-2007 15:31-0500 BP Systolic 132 mm[Hg] Moira Ramsey [facility] Work Phone: Comment on above: Patient Position: Sitting; Cuff Location : Left Arm; Cuff Size: Standard 10-05-2007 15:31-0500 BSA (Body Surface Area) 1.92 m2 Moira Ramsey [facility] Work Phone: 10-05-2007 15:31-0500 Head Circumference 0 cm Moira Ramsey [facility] Work Phone: 10-05-2007 15:31-0500 Height 172.72 cm Moira Ramsey [facility] Work Phone: 10-05-2007 15:31-0500 Pulse (Heart Rate) 68 /min Moira Ramsey [facility] Work Phone: Comment on above: Pattern: Regular 10-05-2007 15:31-0500 Respiratory Rate 16 /min Moira Ramsey [facility] Work Phone: Comment on above: Pattern: Unlabored 10-05-2007 15:31-0500 Weight 78.47 kg Moira Ramsey [facility] Internal Medicine Work Phone: 09-30-2007 15:43-0500 BMI (Body Mass Index) 26.3 kg/m2 Moira Ramsey [facility] Internal Medicine Work Phone: 09-30-2007 15:43-0500 Body Temperature 98.6 [degF] Moira Ramsey [facility] Internal Medicine Work Phone: Comment on above: Method: Oral 09-30-2007 15:43-0500 Body weight 78.47 kg Moira Ramsey [facility] Internal Medicine Work Phone: 09-30-2007 15:43-0500 BP Diastolic 96 mm[Hg] Moira Ramsey [facility] Internal Medicine Work Phone: Comment on above: Patient Position: Sitting; Cuff Location : Right Arm; Cuff Size: Standard 09-30-2007 15:43-0500 BP Systolic 140 mm[Hg] Moira Ramsey [facility] Internal Medicine Work Phone: Comment on above: Patient Position: Sitting; Cuff Location : Right Arm; Cuff Size: Standard 09-30-2007 15:43-0500 BSA (Body Surface Area) 1.92 m2 Moira Ramsey [facility] Internal Medicine Work Phone: 09-30-2007 15:43-0500 Head Circumference 0 cm Moira Ramsey [facility] Internal Medicine Work Phone: 09-30-2007 15:43-0500 Height 172.72 cm Moira Ramsey [facility] Internal Medicine Work Phone: 09-30-2007 15:43-0500 Pulse (Heart Rate) 64 /min Moira Ramsey [facility] Internal Medicine Work Phone: Comment on above: Pattern: Regular 09-30-2007 15:43-0500 Respiratory Rate 16 /min Moira Ramsey [facility] Internal Medicine Work Phone: Comment on above: Pattern: Unlabored 09-30-2007 15:43-0500 Weight 78.47 kg Moira Ramsey [facility] Internal Medicine Work Phone: 09-22-2007 15:28-0500 BMI (Body Mass Index) 27.06 kg/m2 Moira Ramsey [facility] Internal Medicine Work Phone: 09-22-2007 15:28-0500 Body Temperature 97.7 [degF] Moira Ramsey [facility] Internal Medicine Work Phone: Comment on above: Method: Oral 09-22-2007 15:28-0500 Body weight 80.74 kg Moira Ramsey [facility] Internal Medicine Work Phone: 09-22-2007 15:28-0500 BP Diastolic 72 mm[Hg] Moira Ramsey [facility] Internal Medicine Work Phone: Comment on above: Patient Position: Sitting; Cuff Location : Left Arm; Cuff Size: Standard 09-22-2007 15:28-0500 BP Systolic 112 mm[Hg] Moira Ramsey [facility] Internal Medicine Work Phone: Comment on above: Patient Position: Sitting; Cuff Location : Left Arm; Cuff Size: Standard 09-22-2007 15:28-0500 BSA (Body Surface Area) 1.95 m2 Moira Ramsey [facility] Internal Medicine Work Phone: 09-22-2007 15:28-0500 Head Circumference 0 cm Moira Ramsey [facility] Internal Medicine Work Phone: 09-22-2007 15:28-0500 Height 172.72 cm Moira Ramsey [facility] Internal Medicine Work Phone: 09-22-2007 15:28-0500 Pulse (Heart Rate) 56 /min Moira Ramsey [facility] Internal Medicine Work Phone: Comment on above: Pattern: Regular 09-22-2007 15:28-0500 Respiratory Rate 16 /min Moira Ramsey [facility] Internal Medicine Work Phone: Comment on above: Pattern: Unlabored 09-22-2007 15:28-0500 Weight 80.74 kg Moira Ramsey [facility] Internal Medicine Work Phone: 07-01-2007 16:39-0500 Body weight 0 kg Moira Ramsey [facility] Internal Medicine Work Phone: 07-01-2007 16:39-0500 BP Diastolic 80 mm[Hg] Moira Ramsey [facility] Internal Medicine Work Phone: Comment on above: Patient Position: Undefined; Cuff Locati on: Undefined; Cuff Size: Undefined 07-01-2007 16:39-0500 BP Systolic 110 mm[Hg] Moira Ramsey [facility] Internal Medicine Work Phone: Comment on above: Patient Position: Undefined; Cuff Locati on: Undefined; Cuff Size: Undefined 07-01-2007 16:39-0500 Head Circumference 0 cm Moira Ramsey [facility] Internal Medicine Work Phone: 07-01-2007 16:39-0500 Height 0 cm Moira Ramsey [facility] Internal Medicine Work Phone: 07-01-2007 16:39-0500 Weight 0 kg Moira Ramsey [facility] Internal Medicine Work Phone: 07-01-2007 15:51-0500 BMI (Body Mass Index) 27.06 kg/m2 Moira Ramsey [facility] Internal Medicine Work Phone: 07-01-2007 15:51-0500 Body Temperature 98.7 [degF] Moira Ramsey [facility] Internal Medicine Work Phone: Comment on above: Method: Oral 07-01-2007 15:51-0500 Body weight 80.74 kg Moira Ramsey [facility] Internal Medicine Work Phone: 07-01-2007 15:51-0500 BP Diastolic 98 mm[Hg] Moira Ramsey [facility] Internal Medicine Work Phone: Comment on above: Patient Position: Sitting; Cuff Location : Left Arm; Cuff Size: Standard 07-01-2007 15:51-0500 BP Systolic 132 mm[Hg] Moira Ramsey [facility] Internal Medicine Work Phone: Comment on above: Patient Position: Sitting; Cuff Location : Left Arm; Cuff Size: Standard 07-01-2007 15:51-0500 BSA (Body Surface Area) 1.95 m2 Moira Ramsey [facility] Internal Medicine Work Phone: 07-01-2007 15:51-0500 Head Circumference 0 cm Moira Ramsey [facility] Internal Medicine Work Phone: 07-01-2007 15:51-0500 Height 172.72 cm Moira Ramsey [facility] Internal Medicine Work Phone: 07-01-2007 15:51-0500 Pulse (Heart Rate) 60 /min Moira Ramsey [facility] Internal Medicine Work Phone: Comment on above: Pattern: Regular 07-01-2007 15:51-0500 Respiratory Rate 16 /min Moira Ramsey [facility] Internal Medicine Work Phone: Comment on above: Pattern: Unlabored 07-01-2007 15:51-0500 Weight 80.74 kg Moira Ramsey [facility] Internal Medicine Work Phone: 05-01-2007 10:37-0400 BMI (Body Mass Index) 26.47 kg/m2 Moira Ramsey [facility] Internal Medicine Work Phone: 05-01-2007 10:37-0400 Body Temperature 98 [degF] Moira Ramsey [facility] Internal Medicine Work Phone: Comment on above: Method: Oral 05-01-2007 10:37-0400 Body weight 78.95 kg Moira Ramsey [facility] Internal Medicine Work Phone: 05-01-2007 10:37-0400 BP Diastolic 82 mm[Hg] Moira Ramsey [facility] Internal Medicine Work Phone: Comment on above: Patient Position: Sitting; Cuff Location : Right Arm; Cuff Size: Standard 05-01-2007 10:37-0400 BP Systolic 130 mm[Hg] Moira Ramsey [facility] Internal Medicine Work Phone: Comment on above: Patient Position: Sitting; Cuff Location : Right Arm; Cuff Size: Standard 05-01-2007 10:37-0400 BSA (Body Surface Area) 1.93 m2 Moira Ramsey [facility] Internal Medicine Work Phone: 05-01-2007 10:37-0400 Head Circumference 0 cm Moira Ramsey [facility] Internal Medicine Work Phone: 05-01-2007 10:37-0400 Height 172.72 cm Moira Ramsey [facility] Internal Medicine Work Phone: 05-01-2007 10:37-0400 Pulse (Heart Rate) 80 /min Moira Ramsey [facility] Internal Medicine Work Phone: Comment on above: Pattern: Regular 05-01-2007 10:37-0400 Respiratory Rate 16 /min Moira Ramsey [facility] Internal Medicine Work Phone: Comment on above: Pattern: Unlabored 05-01-2007 10:37-0400 Weight 78.95 kg Moira Ramsey [facility] Internal Medicine Work Phone: 03-27-2007 11:58-0400 BMI (Body Mass Index) 26.47 kg/m2 Moira Ramsey [facility] Internal Medicine Work Phone: 03-27-2007 11:58-0400 Body Temperature 97.5 [degF] Moira Ramsey [facility] Internal Medicine Work Phone: Comment on above: Method: Oral 03-27-2007 11:58-0400 Body weight 78.95 kg Moira Ramsey [facility] Internal Medicine Work Phone: 03-27-2007 11:58-0400 BP Diastolic 88 mm[Hg] Moira Ramsey [facility] Internal Medicine Work Phone: Comment on above: Patient Position: Sitting; Cuff Location : Left Arm; Cuff Size: Standard 03-27-2007 11:58-0400 BP Systolic 132 mm[Hg] Moira Ramsey [facility] Internal Medicine Work Phone: Comment on above: Patient Position: Sitting; Cuff Location : Left Arm; Cuff Size: Standard 03-27-2007 11:58-0400 BSA (Body Surface Area) 1.93 m2 Moira Ramsey [facility] Internal Medicine Work Phone: 03-27-2007 11:58-0400 Head Circumference 0 cm Moira Ramsey [facility] Internal Medicine Work Phone: 03-27-2007 11:58-0400 Height 172.72 cm Moira Ramsey [facility] Internal Medicine Work Phone: 03-27-2007 11:58-0400 Pulse (Heart Rate) 68 /min Moira Ramsey [facility] Internal Medicine Work Phone: Comment on above: Pattern: Regular 03-27-2007 11:58-0400 Respiratory Rate 18 /min Moira Ramsey [facility] Internal Medicine Work Phone: Comment on above: Pattern: Unlabored 03-27-2007 11:58-0400 Weight 78.95 kg Moira Ramsey [facility] Internal Medicine Work Phone: 12-17-2006 15:23-0400 BMI (Body Mass Index) 27.13 kg/m2 Moira [facility] Internal Medicine Work Phone: 12-17-2006 15:23-0400 Body weight 80.94 kg Moira Ramsey [facility] Internal Medicine Work Phone: 12-17-2006 15:23-0400 BP Diastolic 64 mm[Hg] Moira Ramesy [facility] Internal Medicine Work Phone: Comment on above: Patient Position: Sitting; Cuff Location : Left Arm; Cuff Size: Standard 12-17-2006 15:23-0400 BP Systolic 102 mm[Hg] Moira Ramsey [facility] Internal Medicine Work Phone: Comment on above: Patient Position: Sitting; Cuff Location : Left Arm; Cuff Size: Standard 12-17-2006 15:23-0400 BSA (Body Surface Area) 1.95 m2 Moira Ramsey [facility] Internal Medicine Work Phone: 12-17-2006 15:23-0400 Head Circumference 0 cm Moira Ramsey [facility] Internal Medicine Work Phone: 12-17-2006 15:23-0400 Height 172.72 cm Moira Ramsey [facility] Internal Medicine Work Phone: 12-17-2006 15:23-0400 Pulse (Heart Rate) 60 /min Moira Ramsey [facility] Internal Medicine Work Phone: Comment on above: Pattern: Regular 12-17-2006 15:23-0400 Respiratory Rate 16 /min Moira Ramsey [facility] Internal Medicine Work Phone: Comment on above: Pattern: Unlabored 12-17-2006 15:23-0400 Weight 80.94 kg Moira Ramsey [facility] Internal Medicine Work Phone: 09-12-2006 08:12-0500 BMI (Body Mass Index) 27.6 kg/m2 Moira [facility] Internal Medicine Work Phone: 09-12-2006 08:12-0500 Body Temperature 98.3 [degF] [facility] Work Phone: Comment on above: Method: Oral 09-12-2006 08:12-0500 Body weight 82.33 kg Moira [facility] Work Phone: 09-12-2006 08:12-0500 BP Diastolic 78 mm[Hg] Moira [facility] Work Phone: Comment on above: Patient Position: Sitting; Cuff Location : Left Arm; Cuff Size: Standard 09-12-2006 08:12-0500 BP Systolic 118 mm[Hg] Moira [facility] Work Phone: Comment on above: Patient Position: Sitting; Cuff Location : Left Arm; Cuff Size: Standard 09-12-2006 08:12-0500 BSA (Body Surface Area) 1.96 m2 Moira [facility] Work Phone: 09-12-2006 08:12-0500 Head Circumference 0 cm Moira [facility] Work Phone: 09-12-2006 08:12-0500 Height 172.72 cm Moira [facility] Work Phone: 09-12-2006 08:12-0500 Pulse (Heart Rate) 58 /min Moira [facility] Work Phone: Comment on above: Pattern: Regular 09-12-2006 08:12-0500 Respiratory Rate 15 /min Moira [facility] Work Phone: Comment on above: Pattern: Unlabored 09-12-2006 08:12-0500 Weight 82.33 kg Moira [facility] Work Phone: Encounters Encounter Date Encounter Type Care Provider Facility Start: 06-24-2025 End: 06-24-2025 ambulatory Arlene Silva Facility:[facility] [place] Start: 06-01-2025 ambulatory Maurilio Velásquez y:[facility] Start: 02-01-2025 End: 02-01-[address] Maurilio Castillo MD Work Phone: [facility] Work Phone: Start: 02-01-2025 End: 02-01-[address] Maurilio Castillo MD -Laboratory [facility] Start: 02-01-2025 End: 02-01-2025 ambulatory Maurilio Castillo Facility:[facility] Start: 12-21-2024 End: 12-21-[address] Maurilio Castillo MD Work Phone: [facility] Work Phone: Start: 12-21-2024 End: 12-21-[address] Maurilio Castillo MD -Outpatient Bone Densitometry Work Phone: Start: 12-21-2024 End: 12-21-2024 ambulatory Maurilio Castillo Facility:[facility] Start: 10-06-2024 End: 10-06-[address] Maurilio Castillo MD -Laboratory, [place] Work Phone: Start: 10-05-2024 End: 10-06-2024 ambulatory Maurilio Castillo Facility:[facility] Start: 10-05-2024 End: 10-05-[address] Irina Lake MD -Physical Therapy Work Phone: Start: 07-12-2024 End: 07-12-2024 ambulatory Maurilio Castillo Facility:[facility] Start: 12-15-2023 End: 12-15-2023 ambulatory [facility] Work Phone: Start: 12-15-2023 End: 12-15-2023 Patient encounter procedure [facility]-Outpatient Breast Imaging Work Phone: Start: 08-27-2023 End: 08-27-2023 ambulatory [facility] Work Phone: Start: 08-27-2023 End: 08-27-2023 Patient encounter procedure [facility] Start: 02-17-2023 End: 02-17-[address] Maurilio Castillo Work Phone: [facility] Work Phone: Start: 02-17-2023 End: 02-17-[address] Maurilio Castillo Work Phone: [facility] Start: 12-17-[address] Maurilio Castillo Work Phone: [facility] Start: 12-17-2022 End: 12-17-[address] Maurilio Castillo Work Phone: [facility] Start: 12-11-2022 End: 12-11-[address] Maurilio Castillo Work Phone: [facility] Work Phone: Start: 12-11-2022 End: 12-11-[address] Maurilio Castillo Work Phone: [facility]-Outpatient Breast Imaging Start: 11-15-2022 End: 11-15-[address] Maurilio Castillo Work Phone: [facility] Start: 10-23-2022 End: 10-23-[address] Maurilio Castillo Work Phone: [facility] Work Phone: Start: 10-23-2022 End: 10-23-[address] Maurilio Castillo Work Phone: [facility] Start: 09-18-2022 End: 09-18-[address] Maurilio Castillo Work Phone: [facility] Start: 09-05-2022 End: 09-05-[address] Maurilio Castillo Work Phone: [facility] Work Phone: Start: 09-05-2022 End: 09-05-[address] [facility] Start: 08-01-2022 End: 08-01-[address] Maurilio Castillo Work Phone: [facility] Start: 06-25-2022 End: 06-25-2022 ambulatory [facility] Work Phone: Start: 06-25-2022 End: 06-25-2022 Patient encounter procedure [facility] Start: 05-10-2022 End: 05-10-2022 Patient encounter procedure [facility]-Laboratory, Specimen Start: 03-27-2022 End: 03-27-[address] Maurilio Castillo Work Phone: [facility] Start: 12-12-2021 End: 12-12-[address] Maurilio Castillo Work Phone: [facility] Start: 12-06-2021 End: 12-06-[address] Maurilio Castillo Work Phone: [facility]-Outpatient Breast Imaging Start: 11-28-2021 End: 11-28-2021 Patient encounter procedure [facility] Start: 07-02-2018 End: 07-02-2018 Office outpatient visit 25 minutes [facility]ira [facility] Start: 05-21-2018 End: 05-21-2018 Office outpatient visit 15 minutes Moira [facility] Start: 04-21-2018 End: 04-21-2018 Office outpatient visit 5 minutes Moira [facility] Start: 04-13-2018 End: 04-13-2018 Office outpatient visit 5 minutes Moira [facility] Start: 04-07-2018 End: 04-08-2018 Office outpatient visit 5 minutes Moira [facility] Start: 03-31-2018 End: 04-01-2018 Office outpatient visit 5 minutes Moira [facility] Start: 03-25-2018 End: 03-25-2018 Office outpatient visit 5 minutes [facility]ira [facility] Start: 03-24-2018 End: 03-25-2018 Office outpatient visit 5 minutes Moira [facility] Start: 03-23-2018 End: 03-23-2018 Office outpatient visit 5 minutes Moira [facility] Start: 03-20-2018 End: 03-20-2018 Office outpatient visit 5 minutes Moira [facility] Start: 03-19-2018 End: 03-20-2018 Office outpatient visit 25 minutes Moira [facility] Start: 01-15-2018 End: 01-15-2018 Office outpatient visit 15 minutes Moira [facility] Start: 12-03-2017 End: 12-03-2017 Office outpatient visit 10 minutes Moira [facility] Start: 11-19-2017 End: 11-19-2017 Office outpatient visit 15 minutes Moira [facility] Start: 10-14-2017 End: 10-14-2017 Office outpatient visit 15 minutes Moira [facility] Start: 09-24-2017 End: 09-24-2017 Office outpatient visit 15 minutes Moira [facility] Start: 05-21-2017 End: 05-21-2017 Periodic preventive med est patient 65yrs& older Moira [facility] Start: 03-24-2017 End: 03-24-2017 Office outpatient visit 15 minutes Moira [facility] Start: 01-07-2017 End: 01-07-2017 Office outpatient visit 25 minutes Moira [facility] Start: 11-20-2016 End: 11-20-2016 Office outpatient visit 15 minutes Moira [facility] Start: 10-30-2016 End: 10-30-2016 Office outpatient visit 25 minutes Moira [facility] Start: 08-29-2016 End: 08-29-2016 Office outpatient visit 25 minutes Moira [facility] Start: 06-27-2016 End: 06-27-2016 Office outpatient visit 40 minutes Moira [facility] Start: 06-27-2016 End: 06-27-2016 Office outpatient visit 40 minutes Moira [facility] Start: 06-06-2016 End: 06-06-2016 Patient encounter procedure Moira [facility] Start: 05-16-2016 End: 05-16-2016 Periodic preventive med est patient 65yrs& older Moira [facility] Start: 02-21-2016 End: 02-21-2016 Office outpatient visit 25 minutes Moira [facility] Start: 02-05-2016 End: 02-05-2016 Office outpatient visit 15 minutes Moira [facility] Start: 11-21-2015 End: 11-21-2015 Office outpatient visit 25 minutes Moira [facility] Start: 10-23-2015 End: 10-23-2015 Office outpatient visit 15 minutes Moira [facility] Start: 10-03-2015 End: 10-03-2015 Office outpatient visit 25 minutes Moira [facility] Start: 08-28-2015 End: 08-28-2015 Office outpatient visit 15 minutes Moira [facility] Start: 07-18-2015 End: 07-18-2015 Office outpatient visit 25 minutes Moira [facility] Start: 05-15-2015 End: 05-15-2015 Phone Encounter Moira [facility] [employer] [employer] [facility] Start: 05-12-2015 End: 05-14-2015 Office outpatient visit 25 minutes Moira [facility] Start: 03-20-2015 End: 03-20-2015 Office outpatient visit 25 minutes Moira [facility] Start: 01-23-2015 End: 01-23-2015 Phone Encounter Moira Maria [employer] [employer] [facility] Start: 11-14-2014 End: 11-14-2014 Office outpatient visit 25 minutes Moira [facility] Start: 11-03-2014 End: 11-03-2014 Office outpatient visit 15 minutes Moira [facility] Start: 10-05-2014 End: 10-05-2014 Office outpatient visit 25 minutes Moira [facility] Start: 08-29-2014 End: 08-29-2014 Phone Encounter Moira Maria [employer] [employer] [facility] Start: 07-18-2014 End: 07-18-2014 Office outpatient visit 25 minutes Moira [facility] Start: 04-13-2014 End: 04-13-2014 Office outpatient visit 15 minutes Moira Ramsey [facility] Start: 04-04-2014 End: 04-05-2014 Office outpatient visit 15 minutes Moira Roxy [facility] Start: 03-15-2014 End: 03-16-2014 Patient encounter procedure Moira Ramirezfranca [facility] Start: 12-27-2013 End: 12-27-2013 Patient encounter procedure Moira Raimrezfranca [facility] Start: 11-02-2013 End: 11-02-2013 Patient encounter procedure Moiraevelia Ramirezon [facility] Start: 10-29-2013 End: 10-29-2013 Patient encounter procedure Moira Ramirezon [facility] Start: 07-02-2013 End: 07-04-2013 Patient encounter procedure Moira Roxy [facility] Start: 03-30-2013 End: 03-30-2013 Patient encounter procedure Moira Roxy [facility] Start: 12-29-2012 End: 12-29-2012 Patient encounter procedure Moira Roxy [facility] Start: 10-26-2012 End: 10-26-2012 Office outpatient visit 25 minutes Moira Ramsey [facility] Start: 10-09-2012 End: 10-09-2012 Phone Encounter Moira Roxy [facility] [employer] [facility] Start: 10-09-2012 End: 10-09-2012 Historical Summary Moira Ramsey [facility] [employer] [facility] Start: 10-09-2012 End: 10-09-2012 Prescription Refill Moira Ramsey [facility] [employer] [facility] Start: 10-05-2012 End: 10-05-2012 Patient encounter procedure Moira Orxyfranca [facility] Start: 09-25-2012 End: 09-25-2012 Annotation/Addendum Moira Ramsey [facility] [employer] [facility] Start: 09-15-2012 End: 09-15-2012 Patient encounter procedure Moira Roxy [facility] Start: 09-02-2012 End: 09-02-2012 Office outpatient visit 15 minutes Moira Ramsey [facility] Start: 07-21-2012 End: 07-21-2012 Office outpatient visit 15 minutes Moira Ramsey [facility] Start: 07-08-2012 End: 07-08-2012 Patient encounter procedure Moira [facility] Start: 05-08-2012 End: 05-08-2012 Patient encounter procedure Moira Ramsey [facility] Start: 03-25-2012 End: 03-26-2012 Patient encounter procedure Moira Ramsey [facility] Start: 12-24-2011 End: 12-24-2011 Phone Encounter Moira Ramsey [facility] [employer] [employer] [facility] Start: 12-23-2011 End: 12-23-2011 Patient encounter procedure Moira Ramsey [facility] Start: 11-04-2011 End: 11-04-2011 Patient encounter procedure Moira Ramsey [facility] Start: 09-24-2011 End: 09-24-2011 Patient encounter procedure Moira Ramsey [facility] Start: 09-12-2011 End: 09-12-2011 Patient encounter procedure Moira Ramsey [facility] Medicine Start: 07-15-2011 End: 07-15-2011 Patient encounter procedure Moira Ramsey [facility] Internal Medicine Start: 06-21-2011 End: 06-21-2011 Patient encounter procedure Moira Ramsey [facility] Internal Medicine Start: 03-29-2011 End: 03-29-2011 Phone Encounter Moira Ramsey [facility] [employer]person [employer] al Medicine Start: 03-20-2011 End: 03-20-2011 Patient encounter procedure Moira Ramsey [facility] Internal Medicine Start: 01-08-2011 End: 01-08-2011 Patient encounter procedure Moira Ramsey [facility] Internal Medicine Start: 12-18-2010 End: 12-18-2010 Admission Note Moiraevelia Ramsey [facility] [employer] Medicine Start: 12-07-2010 End: 12-07-2010 Phone Encounter Moira Ramsey [facility] [employer] Medicine Start: 11-23-2010 End: 11-23-2010 Phone Encounter Moira Ramsey [facility] [employer] Medicine Start: 11-16-2010 End: 11-18-2010 Patient encounter procedure Moira Ramsey [facility] Internal Medicine Start: 10-23-2010 End: 10-23-2010 Patient encounter procedure Moira Ramsey [facility] Internal Medicine Start: 10-22-2010 End: 10-22-2010 Patient encounter procedure Moira Ramsey [facility] Internal Medicine Start: 08-14-2010 End: 08-14-2010 Patient encounter procedure Moira Ramsey [facility] Internal Medicine Start: 07-18-2010 End: 07-18-2010 Patient encounter procedure Moira Ramsey [facility] Internal Medicine Start: 07-16-2010 End: 07-16-2010 Patient encounter procedure Moira Ramsey [facility] Internal Medicine Start: 06-12-2010 End: 06-12-2010 Patient encounter procedure Moira Ramsey [facility] Internal Medicine Start: 06-01-2010 End: 06-01-2010 Patient encounter procedure Moira Ramsey [facility] Internal Medicine Start: 03-07-2010 End: 03-07-2010 Patient encounter procedure Moira Ramsey [facility] Internal Medicine Start: 01-03-2010 End: 01-03-2010 Office outpatient visit 25 minutes Moira Roxy [facility] Internal Medicine Start: 11-29-2009 End: 11-29-2009 Patient encounter procedure Moira Ramsey [facility] Internal Medicine Start: 09-04-2009 End: 09-04-2009 Patient encounter procedure Moira Ramsey [facility] Internal Medicine Start: 09-01-2009 End: 09-01-2009 Annotation/Addendum Moira Roxy [facility] [employer] Medicine Start: 07-19-2009 End: 07-19-2009 Patient encounter procedure Moiraevelia Ramirezon [facility] Internal Medicine Start: 06-14-2009 End: 06-15-2009 Patient encounter procedure Moira Roxy [facility] Internal Medicine Start: 03-01-2009 End: 03-01-2009 Patient encounter procedure Moiraevelia Ramirezon [facility] Internal Medicine Start: 01-18-2009 End: 01-18-2009 Patient encounter procedure Moira Ramirezon [facility] Internal Medicine Start: 10-18-2008 End: 10-18-2008 Patient encounter procedure Moiraevelia Ramirezon [facility] Internal Medicine Start: 07-20-2008 End: 07-20-2008 Office outpatient visit 15 minutes Moira Roxy [facility] Internal Medicine Start: 07-06-2008 End: 07-07-2008 Patient encounter procedure Moiraevelia Ramirezon [facility] Internal Medicine Start: 04-20-2008 End: 04-20-2008 Patient encounter procedure Moiraevelia Ramirezon [facility] Internal Medicine Start: 04-14-2008 End: 04-14-2008 Office outpatient visit 25 minutes Moira Roxy [facility] Internal Medicine Start: 03-30-2008 End: 03-31-2008 Patient encounter procedure Moiraevelia Ramirezon [facility] Internal Medicine Start: 02-08-2008 End: 02-08-2008 Office outpatient visit 15 minutes Moira Roxy [facility] Internal Medicine Start: 01-06-2008 End: 01-07-2008 Office outpatient visit 40 minutes Moira Ramsey [facility] Internal Medicine Start: 10-05-2007 End: 10-05-2007 [facility] Start: 09-30-2007 End: 09-30-2007 Patient encounter procedure Moira Ramsey [facility] Internal Medicine Start: 09-22-2007 End: 09-22-2007 Erroneous Entry Moira Ramsey [facility] al Medicine Start: 09-22-2007 End: 09-22-2007 Office outpatient visit 15 minutes Moira Ramsey [facility] Internal Medicine Start: 07-01-2007 End: 07-02-2007 Office outpatient visit 25 minutes Moira Ramsey [facility] Internal Medicine Start: 05-01-2007 End: 05-01-2007 Office outpatient visit 25 minutes Moira Ramsey [facility] Internal Medicine Start: 03-27-2007 End: 03-29-2007 Office outpatient visit 25 minutes Moira Ramsey [facility] Internal Medicine Start: 12-17-2006 End: 12-18-2006 Office outpatient visit 40 minutes Moira Ramsey [facility] Internal Medicine Start: 09-12-2006 End: 09-12-2006 Patient encounter procedure Moira Ramsey [facility] Start: 07-11-2006 End: 07-11-2006 Historical Summary Moira Ramsey [facility] al Medicine Procedures Date Procedure Procedure Detail Performing Clinician Start: 02-01-2025 Urnls dip stick/tablet reagent auto microscopy Dr. Maurilio Castillo MD Work Phone: Start: 02-01-[address] Maurilio Castillo MD Work Phone: Start: 02-01-2025 Vitamin D, 25-hydroxy measurement Dr. Maurilio Castillo MD Work Phone: Comment on above: Vitamin D StatusDeficiency: <20 ng/mL (5 0nmol/L)Insufficiency: 20-30 ng/mL (50-75 nmol/L)Sufficiency: 30-100 ng/mL (75-250 nmol/L)Toxicity: >100 ng/mL (>250 nmol/L) Start: 12-21-2024 Dual energy X-ray absorptiometry Dr. Maurilio Castillo MD Work Phone: Start: 12-21-[address] Maurilio Castillo MD Work Phone: Start: 10-06-[address] Maurilio Castillo MD Work Phone: Start: 10-06-2024 Measurement of renal function Dr. Maurilio Castillo MD Work Phone: Comment on above: GFR Calc Start: 10-06-[address] Maurilio Castillo MD Work Phone: Start: 10-06-2024 Vitamin D, 25-hydroxy measurement Dr. Maurilio Castillo MD Work Phone: Comment on above: Vitamin D 25(OH) Status Range Deficiency <20 ng/mL (50nmol/L) Insufficiency 20 - 30 ng/mL (50 - 75 nmol/L) Sufficiency 30 - 100 ng/mL (75 - 250 nmol/L) Toxicity >100 ng/mL (>250 nmol/L) Start: 12-15-2023 Screening mammography Start: 12-11-2022 Dual energy X-ray absorptiometry Dr. Maurilio Castillo Work Phone: Start: 12-11-[address] Maurilio Castillo Work Phone: Start: 09-05-[address] MRI of lumbar spine Dr[address] Maurilio Castillo Work Phone: Start: 08-01-2022 X-ray of lumbar spine, two or three views Dr. Maurilio Castillo Work Phone: Start: 03-27-2022 Plain x-ray of pelvis and lower extremity Dr. Maurilio Castillo Work Phone: Start: 12-06-[address] Maurilio Castillo Work Phone: Start: 09-16-2018 End: 09-16-2018 Oncology Visit Report Comments: See Note; NOTES: [facility] Medical Oncology [address] [place] [address] OFFICE VISIT Date of Service: 09/16/18 1336 MR#: [id number] Acct: [id number] Name: MAYA CURRY Rep #: [id number] : 1950 From: Giovanni Peralta MD Age/Sex: 68/F Location: OMD Status: Signed Subjective - Date of Service Date of Service:: 09/16/18 - Chief Complaint F/u for breast cancer - History of Present Illness 68y.o.woman was diagnosed with right breast cancer, stage IIA (T2, N0, M0), ER positive, VT negative, HER2 negative. She underwent right lumpectomy and sentinel node biopsy on 12/16/2008. She received 4 cycles of Taxotere/Cytoxan, completed on 08/01/2009. She received radiation to the right breast, finished on 11/14/2009. She took hormonal therapy, including Arimidex, Femara and tamoxifen. She did not tolerate any of them, so this was discontinued on 01/06/2011. The patient was found to have osteoporosis/osteopenia and was started on Prolia. She received cycle 4 in February 2017. C/o carson pain 08/2017, X rays negative. Prolia was put on hold for dental work. Comes in for follow up. - Past Medical/Social History Past Medical History Past Medical History: Anxiety,GERD,Heart disease,Hypertension, Osteopenia Other Past Medical History: NEPHROLITHIASIS HEMORRHOIDS Cancer: Breast cancer Past Surgical History Surgical: Appendectomy,Hysterectomy,L umpectomy, Tonsillectomy Other Surgical History: D AND C kidney stones removed Family History Paternal Past Medical History: Diabetes mellitus Maternal Past Medical History: Diabetes mellitus,Heart disease,Hyperlipidemia, Hypertension,Thyroid disease Maternal History of Cancer: Multiple myeloma Social History Smoking Status Never smoker Review of Systems Constitutional:: Denies: Fever, Sweats, Weight loss, Appetite change, Chills Cardiovascular:: Denies: Chest pain, Palpitations, Dyspnea on exertion, Orthopnea, PND, Shortness of breath Respiratory: Denies: Cough, Hemoptysis, Shortness of Breath, Wheezing Gastrointestinal:: Denies: Abdominal pain, Nausea, Vomiting, Diarrhea, Constipation, Hematochezia Genitourinary: Denies: Dysuria, Hematuria, 15, Flank pain Musculoskeletal:: Denies: Back pain, Myalgia, Arthralgia Skin: Denies: Rash, Skin Changes, Wounds Neurological:: Denies: Headache, Dizziness, Visual changes, Tinnitus, Hearing loss Psychiatric: Denies: Anxiety, Depression, Homicidal Ideations, Suicidal Ideations Vital Signs Height 5 ft 7 in Weight: 85.275 kg Weight in Pounds 188.0 lbs Pulse Ox 96 - Physical Exam General: Alert, Oriented x3, No apparent distress HEENT: Atraumatic, PERRLA, EOMI, Normocephalic Oropharynx:: Dry mucosa Neck:: Supple, Trachea midline. Negative for: JVD, bilateral Cardiac:: Regular rate, Regular rhythm, Normal S1, Normal S2. Negative for: Murmur Lungs: Clear to auscultation, Excusion symmetrical. Negative for: Rhonchi, Wheezes Abdomen:: Bowel sounds x 4, Soft, Non-tender, Non-distended. Negative for: Hepatosplenomegaly Extremities:: Negative for: Cyanosis, Edema Neurological: Neuro grossly intact Skin:: Negative for: Lesions, Rash, Petechiae, Ecchymosis Psychiatric:: Appropriate affect, Euthymic Lymphatics:: Negative for: Cervical lymphadenopathy, Supraclavicular lymphadenopathy, Axillary lymphadenopathy Breast:: - - R breast UI quadrant scar, no masses, L Breast no masses. Laboratory Data: Laboratory Tests WBC 4.8 (4.4-11.0) K/mm3 RBC 4.34 (4.2-5.4) M/mm3 Hgb 14.4 (12.0-15.0) g/dl Diagnostic Data: 09/01/2018 Bone density reviewed, BD/Dexa Bone Density Study IMPRESSION: The patient is considered osteopenic as outlined below according to World [place] Organization (WHO) criteria with a high fracture risk. There has been improvement of bone density since the previous examination. 09/01/2018 Bilateral mammogram reviewed. BI/SCREENING MAMM (CAD), BILAT IMPRESSION: Stable bilateral screening mammogram. Yearly follow-up mammogram recommended. (A) Assessment and Plan Right Breast Cancer stage IIA. no evidence of disease clinically. Osteopenia, hold Prolia. Plan is to continue observation for breast cancer. Mammogram in 1 yr. RTC 12 MONTHS with cbc, cmp. Medications: Prescriptions This Visit Medication Instructions Recorded Meclizine HCl [Antivert] 1 tab PO PRN PRN 11/19/16 Primary Care Provider: Moira Ramsey Referring Provider: - Problem List (1) Breast cancer, right breast Status: Resolved Qualifiers: Estrogen receptor status: positive Patient sex: female (2) History of right breast cancer Status: Chronic Code Visit Office Visits / Consults: [id number] OV L3 Est 09/16/18 6750 <Electronically signed by Giovanni Peralta MD> Date Giovanni Rodney Signature: Date (if applicable) CC: Moira Ramsey Start: 09-01-2018 End: 09-01-2018 Dexa Bone Density Study Comments: See Note; NOTES: [facility] Imaging Services [address] [place] [address] Dexa Bone Density Study MR#: [id number] Acct: [id number] Name: MAYA CURRY Rep #: [id number] : 1950 F 68 From: Miguel Barrios MD PCP: Moira Ramsey DO Status: REG CLI Study: Dexa Bone Density Study Date of Exam: 09/01/18 Exam# [id number] Ordering Dr: Nelly Auguste STUDY: DUAL ENERGY X-RAY ABSORPTIOMETRY / DXA REASON FOR EXAM: Female, 68 years old. The patient is postmenopausal. Loss of height. TECHNIQUE: Bone Mineral Density (BMD) measurements of lumbar spine and bilateral hips were obtained. COMPARISON: Comparison is made with prior study dated August 07, 2016. FINDINGS: Lumbar Spine (L1-L4): g/cm2 (0.925) / T-score (-2.3) / Z-score (-0.7) Findings are suggestive of osteopenia with a high fracture risk. Left Femur Total: g/cm2 (0.823) / T-score (-1.5) / Z-score (-0.1) Left Femoral Neck: g/cm2 (0.979) / T-score (-0.4) / Z-score (1.2) Right Femur Total: g/cm2 (0.828) / T-score (-1.4) / Z-score (-0.1) Right Femoral Neck: g/cm2 (0.970) / T-score (-0.5) / Z-score (1.1) The T-Scores on the most recent prior examination were: Lumbar Spine (L1-L4): There has been worsening of bone density since the previous examination. Left Femur Total: which represents an improvement of 1.6%. Right Femur Total: which represents an improvement of 1.1%. BD/Dexa Bone Density Study IMPRESSION: The patient is considered osteopenic as outlined below according to World [place] Organization (WHO) criteria with a high fracture risk. There has been improvement of bone density since the previous examination. Reference Information: The T-score is the number of standard deviations above or below the standard which is normal for young adults at their peak bone mineral density. The World Health Organization (WHO) interprets the T-scores as follows: Above -1 Normal bone density Between -1 and -2.5 Osteopenia Equal to / or below -2.5 Osteoporosis As a practical clinical guideline, osteopenia may be graded as follows: Mild -1 through -1.5 Moderate -1.6 through -2.0 Severe -2.1 through -2.4 The Z-score is the number of standard deviations above or below age-matched controls. A Z-score of less than -1.5 would be considered abnormal. References: 1. NIH Osteoporosis and Related Bone Diseases http://www.osteo.org 2. International Society for Clinical Densitometry http://www.iscd.org 3. National Osteoporosis Foundation http://www.nof.org Electronically Signed: Miguel Barrios MD at 13:58 EST Tel [phone], Service support , CC: Moira Auguste NP Air Brake Tester: Signed Moira Ramsey Start: 09-01-2018 End: 09-02-2018 SCREENING MAMM (CAD), BILAT Comments: See Note; NOTES: [facility] Imaging Services [address] [place] [address] SCREENING MAMM (CAD), BILAT MR#: [id number] Acct: [id number] Name: MAYA CURRY Rep #: [id number] : 1950 F 68 From: Miguel Barrios MD PCP: Moira Ramsey DO Status: REG CLI Study: SCREENING MAMM (CAD), BILAT Date of Exam: 09/01/18 Exam# [id number] Ordering Dr: Nelly Auguste STEREO OPERATOR-Channing MAMMOGRAPHY - BILATERAL SCREENING REASON FOR EXAM: Female, 68 years old. Routine annual screening examination. PERTINENT HISTORY: Personal history of breast cancer. Prior right lumpectomy and radiation treatment. TECHNIQUE: Digital bilateral breast lebron (3D mammographic acquisition) in the CC and MLO projections. 2-D mediolateral oblique (MLO) and craniocaudad (CC) views of both breasts were obtained. CAD: Full Field Digital Mammography with Computer Added Detection was performed. COMPARISON: Comparison is made with prior examination dated July 03, 2016 and July 04, 2017. FINDINGS: Breast Composition: There are scattered areas of fibroglandular density. There are no dominant masses or suspicious calcifications. Once again, surgical clips are seen in the deep upper medial aspect of the right breast in keeping with the prior lumpectomy. Resultant architectural distortion is seen at that site. Surgical clips are also seen in the right axillary region. No new mass lesion or cluster microcalcifications present. No other significant abnormalities are identified. There has been no significant change since the prior study. BI/SCREENING MAMM (CAD), BILAT IMPRESSION: Stable bilateral screening mammogram. Yearly follow-up mammogram recommended. (A) ASSESSMENT CATEGORY: BIRADS Category 2: Benign. A letter regarding these results will be sent to the patient by the facility within 30 days. Approximately 10% of breast cancers are not detected by mammography. A normal mammogram should not delay biopsy of a clinically suspicious abnormality. [id number] Electronically Signed: Miguel Barrios MD at 9:48 EST Tel [phone], Service support , CC: Moira Ramsey DO; Nelly Auguste NP Air Brake Tester: Signed Moira Ramsey Start: 03-19-2018 Stool Occult Blood (TAMI) Dr. Maurilio dennis Work Phone: Start: 03-18-2018 End: 03-18-2018 Oncology Visit Report Comments: See Note; NOTES: [facility] Oncology [address] [place] [address]. [place] [address] OFFICE VISIT Date of Service: 03/18/18 1315 MR#: [id number] Acct: [id number] Name: MAYA CURRY Rep #: [id number] : 1950 From: Nelly GRIJALVA Age/Sex: 67/F Location: OMD Status: Signed Subjective - Date of Service Date of Service:: 03/18/18 - Chief Complaint F/u for breast cancer - History of Present Illness 67y.o.woman was diagnosed with right breast cancer, stage IIA (T2, N0, M0), ER positive, VT negative, HER2 negative. She underwent right lumpectomy and sentinel node biopsy on 12/16/2008. She received 4 cycles of Taxotere/Cytoxan, completed on 08/01/2009. She received radiation to the right breast, finished on 11/14/2009. She took hormonal therapy, including Arimidex, Femara and tamoxifen. She did not tolerate any of them, so this was discontinued on 01/06/2011. The patient was found to have osteoporosis/osteopenia and was started on Prolia. She received cycle 4 in February 2017. C/o carson pain 08/2017, X rays negative. - Interval History The patient is presenting to clinic for routine 6month follow up and denies any concerns related to today's visit. Reports low back pain and bilateral carson pain, chronic, continue albeit improved subsequent to recent injections. Patient is established with pain management specifically Dr. Long and underwent lumbar MRI in December. Otherwise denies new onset bone pain, headaches, weight loss, abdominal pain, changes in her bowel habits, and swelling of her extremities. Performs breast self exams monthly and denies any palpable masses skin abnormalities nipple discharge and retraction. Reports she underwent cscope approx 1 year ago under the care of Dr. Ayala, states no significant findings were noted. Also within the last 6 months has had a tooth extraction and "gum surgery" under the care of oral surgeon Dr. Mukherjee. - Past Medical/Social History Past Medical History Past Medical History: Anxiety,GERD,Heart disease,Hypertension, Osteopenia Other Past Medical History: NEPHROLITHIASIS HEMORRHOIDS Cancer: Breast cancer Past Surgical History Surgical: Appendectomy,Hysterectomy,L umpectomy, Tonsillectomy Other Surgical History: D AND C kidney stones removed Family History Paternal Past Medical History: Diabetes mellitus Maternal Past Medical History: Diabetes mellitus,Heart disease,Hyperlipidemia, Hypertension,Thyroid disease Maternal History of Cancer: Multiple myeloma Social History Smoking Status Never smoker Review of Systems Constitutional:: Denies: Fever, Sweats, Weight loss, Appetite change, Chills Cardiovascular:: Denies: Chest pain, Palpitations, Dyspnea on exertion, Orthopnea, PND, Shortness of breath Respiratory: Denies: Cough, Hemoptysis, Shortness of Breath, Wheezing Gastrointestinal:: Denies: Abdominal pain, Nausea, Vomiting, Diarrhea, Constipation, Hematochezia Genitourinary: Denies: Dysuria, Hematuria, 15, Flank pain Musculoskeletal:: Denies: Back pain, Myalgia, Arthralgia Skin: Denies: Rash, Skin Changes, Wounds Neurological:: Denies: Headache, Dizziness, Visual changes, Tinnitus, Hearing loss Psychiatric: Denies: Anxiety, Depression, Homicidal Ideations, Suicidal Ideations Vital Signs Height 5 ft 7 in Weight: 187 lb Weight in Pounds 187.0 lbs Pulse Ox 99 - Physical Exam General: Alert, Oriented x3, No apparent distress HEENT: Atraumatic, PERRLA, EOMI, Normocephalic, - - wears glasses Oropharynx:: Negative for: Dry mucosa, Ulcerated lesions Neck:: Supple, Trachea midline. Negative for: JVD, bilateral Cardiac:: Regular rate, Regular rhythm, Normal S1, Normal S2. Negative for: Murmur Lungs: Clear to auscultation, Excusion symmetrical. Negative for: Rhonchi, Wheezes Abdomen:: Bowel sounds x 4, Soft, Non-tender, Non-distended. Negative for: Hepatosplenomegaly Extremities:: Negative for: Cyanosis, Edema Neurological: Neuro grossly intact Skin:: Negative for: Lesions, Rash, Petechiae, Ecchymosis Psychiatric:: Appropriate affect, Euthymic Lymphatics:: Negative for: Cervical lymphadenopathy, Supraclavicular lymphadenopathy, Axillary lymphadenopathy Breast:: - - Right breast shows well-healed scar at the 1 o'clock position and within the axilla. no palpable masses, skin abnormalities such as dimpling, nipple discharge/retraction or pain. Left breast no palpable masses, skin abnormalities such as dimpling, nipple discharge/retraction or pain. Laboratory Data: Laboratory Tests WBC 5.3 (4.4-11.0) K/mm3 RBC 4.18 L (4.2-5.4) M/mm3 Hgb 11.6 L (12.0-15.0) g/dl Diagnostic Data: 07/04/17 Screening mammogram, bilat BI RADS category 2. Assessment and Plan 1. Right Breast Cancer stage IIA-labs reviewed and grossly within normal limits with the exception of mild normocytic anemia discussed below. Clinical breast exam unchanged. She is otherwise not endorsing any signs or symptoms of recurrence or late effects of chemotherapy exposure. Mammogram due in June. Orders provided. Encouraged to continue monthly breast self exams and promptly report any changes. 2. Osteopenia- Due for DEXA in July. Orders provided. Taking calcium and vitamin D as advised. Describes significant amount of dedicated weightbearing exercise. Will continue to hold Prolia given tooth extraction and recent gum surgery. Encouraged to discuss use of Prolia with her oral surgeon. 3. Anemia-as evidenced by hemoglobin 11.6, normocytic. This is a new finding. Will obtain iron studies, B12, TSH and fecal occult blood stool. Patient to call for results. Patient reports she underwent colonoscopy approximately 1 year ago under the care of Dr. Ayala. Will obtain Dr. Ayala's last note for thorough review. RTC 6 MONTHS with cbc, cmp, sooner if there are further lab aberrancies. Nelly Auguste, MSN, CLINICAL DATA MANAGEMENT MANAGER, AOCNP Medications: Prescriptions This Visit Medication Instructions Recorded Meclizine HCl [Antivert] 1 tab PO PRN PRN 11/19/16 Duloxetine Hcl [Cymbalta] 30 mg PO DAILY 03/11/17 Primary Care Provider: Moira Ramsey Referring Provider: - Problem List (1) Breast cancer, right breast Status: Resolved Qualifiers: Estrogen receptor status: positive Patient sex: female (2) Osteopenia Status: Acute Qualifiers: Laterality: unspecified laterality (3) Anemia Status: Acute Qualifiers: Anemia type: unspecified type Qualified Code(s): D64.9 - Anemia, unspecified 03/18/18 1359 <Electronically signed by Nelly GRIJALVA> Date Nelly GRIJALVA Cosigner Signature: Date (if applicable) CC: Moira Ramsey Start: 01-09-2018 End: 01-10-2018 Spine Lumbar (Routine) Comments: See Note; NOTES: [facility] Imaging Services [address] [place] [id number] Spine Lumbar (Routine) MR#: [id number] Acct: [id number] Name: MAYA CURRY Rep #: [id number] : 1950 F 67 From: Inez Skelton MD PCP: Moira Ramsey DO Status: REG CLI Study: Spine Lumbar (Routine) Date of Exam: 01/09/18 Exam# [id number] Ordering Dr: Mally Huynh STUDY: MRI LUMBAR SPINE WITHOUT CONTRAST REASON FOR EXAM: Female, 67 years old. Low back pain and bilateral hip pain. TECHNIQUE: Standardized fat and water weighted pulse sequences were obtained in the sagittal and axial planes. COMPARISON: MRI of the lumbar spine dated April 11, 2014. FINDINGS: T12-L1: Normal endplates. Normal disc height, signal and morphology. Normal bilateral facet joints. Normal central canal and bilateral lateral recesses. Normal bilateral intervertebral neural foramina. Normal lumbar lordosis. There is no substantial scoliosis. Normal conus medullaris that terminates at the T12 level. L1-2: There is mild annular disk bulge and osteophyte complex. There is mild degenerative arthropathy of the facet joints. Bilateral neuroforamina are narrowed without MR evidence for nerve impingement. There is no significant central canal stenosis. L2-3: There is mild annular disk bulge and osteophyte complex. There is mild degenerative arthropathy of the facet joints. Bilateral neuroforamina are narrowed without MR evidence for nerve impingement. There is no significant central canal stenosis. L3-4: There is a small Schmorl's node of the superior endplate of L3. There is mild annular disk bulge and osteophyte complex. There is mild degenerative arthropathy of the facet joints. Bilateral neuroforamina are narrowed without MR evidence for nerve impingement. There is no significant central canal stenosis. L4-5: There is mild annular disk bulge and osteophyte complex. There is mild degenerative arthropathy of the facet joints. Bilateral neuroforamina are narrowed without MR evidence for nerve impingement. There is no significant central canal stenosis. L5-S1: There is narrowing of this disc. There appears to be sequela of chronic Modic changes at the endplates. There are small endplate osteophytes. There is mild annular disk bulge and osteophyte complex. There is mild degenerative arthropathy of the facet joints. Bilateral neuroforamina are narrowed without MR evidence for nerve impingement. There is no significant central canal stenosis. Normal visualized sacral ala. Normal visualized paraspinous soft tissue structures. The left kidney appears smaller than expected for patient's age. 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 Electronically Signed: Inez Skelton MD at 8:23 EDT , Service support , CC: Mally Huynh; Moira Ramsey DO Air Brake Tester: Signed Lizy Tolentino Work Phone: Start: 10-14-2017 End: 10-14-2017 Ankle min 3 Views Comments: See Note; NOTES: [facility] Imaging Services [address] [place] [address] Ankle min 3 Views MR#: [id number] Acct: [id number] Name: MAYA CURRY Rep #: [id number] : 1950 F 67 From: Miguel Barrios MD PCP: Moira Ramsey DO Status: REG CLI Study: Ankle min 3 Views Date of Exam: 10/14/17 Exam# [id number] Ordering Dr: Isabella Romero STUDY: X-RAY - RIGHT ANKLE REASON FOR EXAM: Female, 67 years old. Pain following injury. TECHNIQUE: 3 view(s) of the ankle. COMPARISON: None. FINDINGS: Normal visualized distal tibia and fibula. Normal medial and lateral malleoli. Normal tibiotalar articulation and ankle mortise. Normal visualized talus and calcaneus. The visualized subtalar, talonavicular, calcaneocuboid and tarsal articulations are normal. The soft tissue structures are unremarkable. RAD/Ankle min 3 Views IMPRESSION: Normal x-ray examination of the ankle. Electronically Signed: Miguel Barrios MD at 20:03 EST Tel [phone], Service support , CC: RUDI Bealeen Roxy DO Air Brake Tester: Signed Isabella Romero Start: 10-14-2017 End: 10-14-2017 Foot min 3 Views Comments: See Note; NOTES: [facility] Imaging Services [address] [place] [address] Foot min 3 Views MR#: [id number] Acct: [id number] Name: MAYA CURRY Rep #: [id number] : 1950 F 67 From: Miguel Barrios MD PCP: Moira Ramsey DO Status: REG CLI Study: Foot min 3 Views Date of Exam: 10/14/17 Exam# [id number] Ordering Dr: Isabella Romero STUDY: X-RAY - RIGHT FOOT CLINICAL: Female, 67 years old. Pain. No known injury. TECHNIQUE: 3 view(s) of the foot. COMPARISON: Comparison is made with prior examination generally 2017. FINDINGS: Normal talus, calcaneus, and tarsal bones. Normal visualized subtalar, talonavicular, calcaneocuboid, tarsal and tarsometatarsal articulations. Normal metatarsi. There is a mild degenerative arthrosis of the metatarsophalangeal joint of the hallux with a hallux valgus deformity. Normal tibial and fibular sesamoid bones. Normal interphalangeal joint of the great toe. Normal phalanges of the great toe. Normal second through fifth metatarsophalangeal joints. Normal interphalangeal joints and phalanges of the lesser toes. The soft tissue structures are unremarkable. RAD/Foot min 3 Views IMPRESSION: Mild degenerative changes at the first metatarsophalangeal joint. Electronically Signed: Miguel Barrios MD at 20:03 EST Tel [phone], Service support , CC: RUDI Romero; Moira Ramsey DO Air Brake Tester: Signed Isabella Romero Start: 09-10-2017 End: 09-11-2017 Tibia AND Fibula 2 Views Comments: See Note; NOTES: [facility] Imaging Services [address] [place] [address] Tibia AND Fibula 2 Views MR#: [id number] Acct: [id number] Name: MAYA CURRY Rep #: [id number] : 1950 F 67 From: Miguel Barrios MD PCP: Moira Ramsey DO Status: REG CLI Study: Tibia AND Fibula 2 Views Date of Exam: 09/10/17 Exam# [id number] Ordering Dr: Giovanni Peralta MD STUDY: X-RAY - RIGHT TIBIA AND FIBULA REASON FOR EXAM: Female, 67 years old. Pain. TECHNIQUE: AP and lateral view(s) of the tibia and fibula were obtained. COMPARISON: None. FINDINGS: Normal visualized tibia. Normal visualized fibula. The soft tissue structures are unremarkable. RAD/Tibia AND Fibula 2 Views IMPRESSION: Normal x-ray examination of the tibia and fibula. Electronically Signed: Miguel Barrios MD at 9:36 EST Tel [phone], Service support , CC: Giovanni Peralta MD; Moira Ramsey DO Air Brake Tester: Signed Moira Ramsey Start: 09-10-2017 End: 09-11-2017 Foot 2 Views Comments: See Note; NOTES: [facility] Imaging Services [address] [place] [address] Foot 2 Views MR#: [id number] Acct: [id number] Name: MAYA CURRY Rep #: [id number] : 1950 F 67 From: Miguel Estrada MD PCP: Moira Ramsey DO Status: REG CLI Study: Foot 2 Views Date of Exam: 09/10/17 Exam# [id number] Ordering Dr: Giovanni Peralta MD STUDY: X-RAY - RIGHT FOOT CLINICAL: Female, 67 years old. Pain. TECHNIQUE: 2 view(s) of the foot. COMPARISON: None. FINDINGS: Normal talus, calcaneus, and tarsal bones. Normal visualized subtalar, talonavicular, calcaneocuboid, tarsal and tarsometatarsal articulations. Normal metatarsi. There is mild arthrosis of the metatarsophalangeal joint of the hallux with a hallux valgus deformity. Normal tibial and fibular sesamoid bones. Normal interphalangeal joint of the great toe. Normal phalanges of the great toe. Normal second through fifth metatarsophalangeal joints. Normal interphalangeal joints and phalanges of the lesser toes. The soft tissue structures are unremarkable. RAD/Foot 2 Views IMPRESSION: Limited 2 view study of the foot shows no acute abnormality. Mild hallux valgus. Electronically Signed: Miguel Estrada MD at 23:57 EST , Service support , CC: Giovanni Peralta MD; Moira Ramsey DO Air Brake Tester: Signed Moira Ramsey Start: 07-04-2017 End: 07-04-2017 SCREENING MAMM (CAD), BILAT Comments: See Note; NOTES: [facility] Imaging Services [address] [place] [address] SCREENING MAMM (CAD), BILAT MR#: [id number] Acct: [id number] Name: MAYA CURRY Rep #: [id number] : 1950 F 67 From: Miguel Barrios MD PCP: Moira Ramsey DO Status: REG CLI Study: SCREENING MAMM (CAD), BILAT Date of Exam: 07/04/17 Exam# [id number] Ordering Dr: Giovanni Peralta MD MAMMOGRAPHY - BILATERAL SCREENING REASON FOR EXAM: Female, 67 years old. Routine annual screening examination. PERTINENT HISTORY: Personal history of breast cancer. History of prior right lumpectomy with radiation and chemotherapy. TECHNIQUE: Digital bilateral breast lebron (3D mammographic acquisition) in the CC and MLO projections. 2-D mediolateral oblique (MLO) and craniocaudad (CC) views of both breasts were obtained. CAD: Full Field Digital Mammography with Computer Added Detection was performed. COMPARISON: Comparison is made with prior study dated July 03, 2016 and June 29, 2015. FINDINGS: Breast Composition: There are scattered areas of fibroglandular density. There are no dominant masses or suspicious calcifications. Once again, architectural distortion is seen in the deep upper medial portion of the right breast secondary to prior lumpectomy. This is unchanged. Surgical clips are also seen in the right axillary region. No other significant abnormalities are identified. There has been no significant change since the prior study. HPBI/SCREENING MAMM (CAD), BILAT IMPRESSION: Stable bilateral screening mammogram. Yearly follow-up mammogram recommended. (A) ASSESSMENT CATEGORY: BIRADS Category 2: Benign. A letter regarding these results will be sent to the patient by the facility within 30 days. Approximately 10% of breast cancers are not detected by mammography. A normal mammogram should not delay biopsy of a clinically suspicious abnormality. [id number] Electronically Signed: Miguel Barrios MD at 14:41 EST Tel [phone], Service support , CC: Giovanni Peralta MD; Moira Ramsey DO Air Brake Tester: Signed Moira Ramsey Start: 03-25-2017 End: 03-26-2017 Knee 1 or 2 Views Comments: See Note; NOTES: [facility] Imaging Services [address] [place] [address] Verdana 4d Knee 1 or 2 Views MR#: [id number] Acct: [id number] Name: MAYA CURRY Rep #: [id number] : 1950 F 66 From: Miguel Estrada MD PCP: Moira Ramsey DO Status: REG CLI Study: Knee 1 or 2 Views Date of Exam: 03/25/17 Exam# [id number] Ordering Dr: Moira Ramsey DO STUDY: X-RAY - LEFT KNEE REASON FOR EXAM: Female, 66 years old. Chronic pain TECHNIQUE: 2 view(s) of the knee. COMPARISON: None. FINDINGS: Normal visualized distal femur. Normal visualized proximal tibia and fibula. Normal proximal tibiofibular articulation. Normal medial femorotibial compartment. Normal lateral femorotibial compartment. Normal patellofemoral articulation. The soft tissue structures are unremarkable. RAD/Knee 1 or 2 Views IMPRESSION: Normal x-ray examination of the knee. Electronically Signed: Miguel Estrada MD at 23:14 EDT , Service support , CC: Moira Ramsey DO Air Brake Tester: Signed Moira Ramsey Work Phone: Start: 03-25-2017 End: 03-26-2017 Knee 4 or More Views Comments: See Note; NOTES: [facility] Imaging Services [address] [place] [address] Verdana 4d Knee 4 or More Views MR#: [id number] Acct: [id number] Name: MAYA CURRY Rep #: [id number] : 1950 F 66 From: Miguel Estrada MD PCP: Moira Ramsey DO Status: REG CLI Study: Knee 4 or More Views Date of Exam: 03/25/17 Exam# [id number] Ordering Dr: Moira Ramsey DO STUDY: X-RAY - RIGHT KNEE REASON FOR EXAM: Female, 66 years old. Chronic pain TECHNIQUE: 4 view(s) of the knee. COMPARISON: None. FINDINGS: Normal visualized distal femur. Normal visualized proximal tibia and fibula. Normal proximal tibiofibular articulation. Normal medial femorotibial compartment. Normal lateral femorotibial compartment. Normal patellofemoral articulation. The soft tissue structures are unremarkable. RAD/Knee 4 or More Views IMPRESSION: Normal x-ray examination of the knee. Electronically Signed: Miguel Estrada MD at 23:29 EDT , Service support , CC: Moria Ramsey DO Air Brake Tester: Signed Moira Ramsey Work Phone: Start: 03-25-2017 End: 03-26-2017 Thyroid Comments: See Note; NOTES: [facility] Imaging Services [address] [place] [address] Verdana 4d Thyroid MR#: [id number] Acct: [id number] Name: MAYA CURRY Rep #: [id number] : 1950 F 66 From: Miguel Estrada MD PCP: Moira Ramsey DO Status: REG CLI Study: Thyroid Date of Exam: 03/25/17 Exam# [id number] Ordering Dr: Miora Ramsey DO STUDY: THYROID ULTRASOUND REASON FOR EXAM: Female, 66 years old. Nodules. TECHNIQUE: Ultrasound evaluation of the thyroid was performed with real-time and static snyder-scale imaging. COMPARISON: 12/28/2013. FINDINGS: RIGHT LOBE: The right lobe of the thyroid gland measures 4.7 x 1.8 x 1.5 cm. There is a homogeneous echotexture. There is a 6 mm hyperechoic nodule along the posterior surface of the right lobe, stable since previous exam. LEFT LOBE: The left lobe of the thyroid gland measures 4.8 x 2.0 x 1.5 cm. There is a homogeneous echotexture. There is a 9 mm solid nodule along the posterior surface of the left lobe, stable since previous exam. There is a 2 mm incidental cyst. ISTHMUS: The isthmus measures 5 mm . The regional lymph nodes are normal. US/Thyroid IMPRESSION: No significant change since 12/28/2013. No dominant nodules. Electronically Signed: Miguel Estrada MD at 23:33 EDT , Service support , CC: Moira Ramsey DO Air Brake Tester: Signed Moira Ramsey Work Phone: Start: 01-06-2017 End: 01-06-2017 Emergency Department Summary Comments: See Note; NOTES: [facility] Medical Records Department [address] [place] [address] Emergency Department Summary MR#: [id number] Acct: [id number] Name: MAYA CURRY Rep #: [id number] : 1950 66 From: Igor Sneed MD PCP: Moira Ramsey DO Status: [facility] ER DATE OF SERVICE: 01/05/2017 CHIEF COMPLAINT: Nausea, vomiting, and diarrhea. HISTORY OF PRESENT ILLNESS: A 66-year-old female with nausea, vomiting, and diarrhea since last night around 10:00 p.m., said she has had multiple episodes of nausea and vomiting and multiple episodes of watery diarrhea. She said today she noticed a small streak of blood in it, then large amount of blood, said it was bright red, it was not dark. She has had no hematemesis. She is on no blood thinners other than aspirin. She does not remember having a GI bleed before. She said the blood that she passed was about an hour ago. She has passed none since that time. She denies any bruising or nosebleeds or hematuria. PHYSICAL EXAMINATION: GENERAL: A 66-year-old female. VITAL SIGNS: Stable and afebrile. She does not look septic or toxic, in no acute distress. HEENT: Mildly dry mucous membranes. Otherwise unremarkable. NECK: Nontender. No lymphadenopathy. LUNGS: Clear to auscultation bilaterally. HEART: Regular rate and rhythm, no murmur, rate in the 90s. ABDOMEN: Soft, nontender, and nondistended. No organomegaly or masses. Normal bowel sounds. No peritoneal signs. Completely nontender abdomen. EXTREMITIES: Moves all 4. Neurovascularly intact. BACK: Nontender. NEUROLOGIC: She is awake and alert with no focal motor deficits. EMERGENCY DEPARTMENT COURSE: Elderly female with what sounds like a viral syndrome. She did have some gross blood after multiple episodes of diarrhea, which may be secondary to mucosal irritation versus a GI bleed versus other. TEST RESULTS: White count of 8, H and H 12.3 and 38, that is her baseline hemoglobin, normally runs between 12 and 13. Her electrolytes are unremarkable with a BUN of 13, her creatinine of 0.9, and normal gap. Repeat exam, she is doing well. She received a liter of fluid, also IV Zofran. She has been able to hold down p.o. fluids. On repeat exam at 1556, looks and feels better. She has passed no further blood while in the ER. In light that it was bright red after multiple episodes of diarrhea, this is most likely secondary to some type of mucosal irritation. Her blood counts are stable. I am comfortable with her being discharged to home with outpatient followup. I discussed with both her and her . They know if she has increasing bleeding or feels worse to return, but at this time, I do not think she needs admitted. IMPRESSION: 1. Nausea, vomiting, and diarrhea secondary to viral syndrome. 2. Lower gastrointestinal bright red blood. PLAN: Discharge to home. Follow up with Dr. Moira Ramsey. Igor Sneed MD C C: Moira Ramsey DO T: NTS JOB: [id number] 01/06/17 1543 <Electronically signed by Igor Sneed MD> Date Igor Sneed MD Cosigner Signature (If Indicated): Date CC: Moira Ramsey DO Date Dictated: 01/05/171558 Date Transcribed: 01/05/171558 Air Brake Tester: Signed Moira Ramsey Start: 01-05-2017 End: 01-05-2017 Discharge Instruction Comments: See Note; NOTES: [facility] Medical Records Department [address] [place] [address] Discharge Instruction 01/05/17 1600 MR#: [id number] Acct: [id number] Name: MAYA CURRY Rep #: [id number] : 1950 66 From: Igor Sneed MD PCP: Moira Ramsey DO Status: DEP ER ED Disposition - Plan for ED Patient: Disposition: Home or Assisted Living Chief Complaint: GI Bleed Instructions: ED Hematochezia Stable, ED Gastroenteritis Viral Prescriptions: Ondansetron [Zofran Odt] 4 mg PO Q4H PRN PRN #7 tab.rapdis PRN Reason: Nausea Referrals: Moira Ramsey DO [Primary Care Provider] - 1-2 Days if not improving Additional Instructions: ZOFRAN NEEDED FOR NAUSEA PLENTY OF FLUIDS AND REST FOLLOW UP IF NOT GETTING BETTER OR RETURN IF WORSE OR WORSE BLEEDING What to do if you have Problems For any increased pain, shortness of breath, bleeding, nausea or vomiting, chest pain, or any unexpected problems, contact your Primary Care Provider. Call [facility] ([phone]) or report to the closest Emergency Room. Call 911 if necessary. 01/05/17 1628 <Electronically signed by Igor Sneed MD> Date Igor Sneed MD Cosigner Signature (If Indicated): Date CC: Moira Casas Start: 08-07-2016 End: 08-07-2016 Dexa Bone Density Study (HP) Comments: See Note; NOTES: [facility] Imaging Services [address] [place] [address] Verda 4d Dexa Bone Density Study () MR#: [id number] Acct: [id number] Name: MAYA CURRY Rep #: [id number] : 1950 F 66 From: Miguel Barrios MD PCP: Moira Ramsey DO Status: [facility] CLI Study: Dexa Bone Density Study () Date of Exam: 08/07/16 Exam# [id number] Ordering Dr: Moira Ramsey DO STUDY: DUAL ENERGY X-RAY ABSORPTIOMETRY / DXA REASON FOR EXAM: Female, 66 years old. The patient is postmenopausal. TECHNIQUE: Bone Mineral Density (BMD) measurements of lumbar spine and bilateral hips were obtained. COMPARISON: Comparison is made with prior study dated August 02, 2014. FINDINGS: Lumbar Spine (L1-L4): g/cm2 (0.929) / T-score (-2.1) / Z-score (-0.5) Findings are suggestive of osteopenia with a moderate fracture risk. Left Femur Total: g/cm2 (0.810) / T-score (-1.6) / Z-score (-0.3) Left Femoral Neck: g/cm2 (0.876) / T-score (-1.2) / Z-score (0.4) Right Femur Total: g/cm2 (0.819) / T-score (-1.5) / Z-score (-0.2) Right Femoral Neck: g/cm2 (0.878) / T-score (-1.2) / Z-score (0.4) The T-Scores on the most recent prior examination were: Lumbar Spine (L1-L4): There has been improvement of bone density since the previous examination. Left Femur Total: which represents a worsening of 0.7%. Right Femur Total: which represents an improvement of 1.2%. HPBD/Dexa Bone Density Study (HP) IMPRESSION: The patient is considered osteopenic as outlined below according to World Az Organization (WHO) criteria with a moderate fracture risk. There has been improvement of bone density since the previous examination. Reference Information: The T-score is the number of standard deviations above or below the standard which is normal for young adults at their peak bone mineral density. The World Health Organization (WHO) interprets the T-scores as follows: Above -1 Normal bone density Between -1 and -2.5 Osteopenia Equal to / or below -2.5 Osteoporosis As a practical clinical guideline, osteopenia may be graded as follows: Mild -1 through -1.5 Moderate -1.6 through -2.0 Severe -2.1 through -2.4 The Z-score is the number of standard deviations above or below age-matched controls. A Z-score of less than -1.5 would be considered abnormal. References: 1. NIH Osteoporosis and Related Bone Diseases http://www.osteo.org 2. International Society for Clinical Densitometry http://www.iscd.org 3. National Osteoporosis Foundation http://www.nof.org Electronically Signed: Miguel Barrios MD at 11:00 EST Tel [phone], Service support [phone], CC: Moira Ramsey DO Air Brake Tester: Signed Moira Ramsey Work Phone: Start: 07-03-2016 End: 07-03-2016 Bilat Scrn Digital AND CAD Comments: See Note; NOTES: [facility] Imaging Services [address] [place] [address] Verdana 4d Bilat Scrn Digital AND CAD MR#: [id number] Acct: [id number] Name: MAYA CURRY Rep #: [id number] : 1950 F 66 From: Miguel Barrios MD PCP: Moira Ramsey DO Status: REG CLI Study: Bilat Scrn Digital AND CAD Date of Exam: 07/03/16 Exam# [id number] Ordering Dr: Clarke Nielson MD MAMMOGRAPHY - BILATERAL SCREENING REASON FOR EXAM: Female, 66 years old. Routine annual screening examination. PERTINENT HISTORY: Personal history of breast cancer. Prior right lumpectomy with chemotherapy and radiation therapy. TECHNIQUE: Digital bilateral breast lebron (3D mammographic acquisition) in the CC and MLO projections. 2-D mediolateral oblique (MLO) and craniocaudad (CC) views of both breasts were obtained. CAD: Full Field Digital Mammography with Computer Added Detection was performed. COMPARISON: Comparison is made with prior outside examination dated June 29, 2015 and June 28, 2014. FINDINGS: Breast Composition: There are scattered areas of fibroglandular density. There are no dominant masses or suspicious calcifications. Stable appearance of the focal area of architectural distortion in the upper medial deep portion of the right breast. This is in keeping with prior lumpectomy. This is unchanged. No other significant abnormalities are identified. There has been no significant change since the prior study. HPBI/Bilat Scrn Digital AND CAD IMPRESSION: Stable bilateral screening mammogram. Yearly follow-up mammogram recommended. (A) ASSESSMENT CATEGORY: BIRADS Category 2: Benign. A letter regarding these results will be sent to the patient by the facility within 30 days. Approximately 10% of breast cancers are not detected by mammography. A normal mammogram should not delay biopsy of a clinically suspicious abnormality. [id number] Electronically Signed: Miguel Barrios MD at 12:42 EST Tel [phone], Service support [phone], CC: Moira Ramsey DO; Clarke Nielson Air Brake Tester: Signed Moira Ramsey Start: 07-03-2016 End: 07-03-2016 Tibia AND Fibula 2 Views Comments: See Note; NOTES: [facility] Imaging Services [address] [place] [address] Verdana 4d Tibia AND Fibula 2 Views MR#: [id number] Acct: [id number] Name: MAYA CURRY Foreign Rep #: [id number] : 1950 F 66 From: Miguel Barrios MD PCP: Moira Ramsey DO Status: REG CLI Study: Tibia AND Fibula 2 Views Date of Exam: 07/03/16 Exam# [id number] Ordering Dr: Clarke Nielson MD STUDY: X-RAY - RIGHT TIBIA AND FIBULA REASON FOR EXAM: Female, 66 years old. Mid leg pain. No history of trauma. TECHNIQUE: 3 view(s) of the tibia and fibula were obtained. COMPARISON: None. FINDINGS: Normal visualized tibia. Normal visualized fibula. The soft tissue structures are unremarkable. RAD/Tibia AND Fibula 2 Views IMPRESSION: Normal x-ray examination of the tibia and fibula. Electronically Signed: Miguel Barrios MD at 12:53 EST Tel [phone], Service support [phone], CC: Moira Ramsey DO; Clarke Nielson Air Brake Tester: Signed Moira Ramsey Start: 02-21-2016 End: 02-21-2016 Spmtry w/vc expiratory annie w/wo mxml vol vntj _ Oziel Wright Start: 02-21-2016 End: 02-21-2016 Ecg routine ecg w/least 12 lds w/i&r [MEASUREMENTS ANALYSIS] Date of Test: 02/21/2016 11:55:33; Heart Rate: 68; VT Interval: 148; QRS: 82; QT Interval: 386; Corrected QT Interval (QTc): 400; P [place]: 30; QRS [place]: 17; T [place]: 45; Blood Pressure: 128/82 [ECG DIAGNOSTIC STATEMENTS] Date of Test: 02/21/2016 11:55:33; Summary: Sinus Rhythm WITHIN NORMAL LIMITS Moira Ramsey Work Phone: Comment on above: nsr no acute chg Start: 02-11-2016 End: 02-11-2016 Carotid Duplex Ultrasound Comments: See Note; NOTES: [facility] Cardiovascular Services [address] [place] [address] Carotid Duplex Ultrasound 02/09/16 0923 MR#: [id number] Acct: [id number] Name: MAYA CURRY Rep #: [id number] : 1950 65 From: Sergo Brooks MD Attending Dr: Moira Ramsey DO Status: REG CLI Ordering Dr: Moira Ramsey DO Date: 02/09/16 Location: [facility] Sex: F C Admitted: Reason For Study: DIZZINESS Rt. Velocities/BP Lt. Velocities/BP Prox CCA 96.2/19.9 cm/sec. Prox CCA 119.0/22.8 cm/sec. Mid CCA 98.5/22.3 cm/sec. Mid CCA 93.8/19.3 cm/sec. Dist CCA 101.0/25.8 cm/sec. Dist CCA 76.8/20.5 cm/sec. Prox ICA 78.0/26.4 cm/sec. Prox ICA 76.8/24.0 cm/sec. Mid ICA 112.0/33.8 cm/sec. Mid ICA 75.6/27.6 cm/sec. Dist ICA 70.8/22.7 cm/sec. Dist ICA 94.7/34.8 cm/sec. Rt. ICA/CCA = 1.1. Lt. ICA/CCA = 1.0. Prox ECA 97.3/14.1 cm/sec. Prox ECA 70.9/11.7 cm/sec. Rt. Vert. 48.7/12.3 cm/sec. Lt. Vert. 63.3/18.8 cm/sec. Right Extracranial There is intimal thickening but no significant atherosclerotic plaque noted in the right common carotid artery. There is intimal thickening but no significant atherosclerotic plaque noted in the right internal carotid artery. There is no significant atherosclerotic plaque noted in the right external carotid artery. Antegrade flow is noted in the right vertebral artery. Left Extracranial There is intimal thickening but no significant atherosclerotic plaque noted in the left common carotid artery. There is no significant atherosclerotic plaque noted in the left internal carotid artery. There is no significant atherosclerotic plaque noted in the left external carotid artery. Antegrade flow is noted in the left vertebral artery. Procedure Carotid Duplex 31039. Exam performed in department. Interpretation Summary Mild (<50%) stenosis right extracranial internal carotid. Mild (<50%) stenosis left extracranial internal carotid. Flow within the vertebral arteries is antegrade bilaterally. Ordering Physician: Moira Ramsey Referring Physician: Phyllis Tolbert Performed By: Cheryl Hicks RVT 02/11/16 2148 Date Sergo Brooks MD CC: Moira Ramsey DO Date Dictated: 02/09/16 0923 Date Transcribed: 02/11/168 Air Brake Tester: Signed Moira Ramsey Work Phone: Start: 10-19-2015 End: 10-19-2015 Thyroid Comments: See Note; NOTES: [facility] Imaging Services [address] [place] [address] Verdana 4d Thyroid MR#: [id number] Acct: [id number] Name: MAYA CURRY Rep #: [id number] : 1950 F 65 From: Miguel Barrios MD PCP: Phyllis Tolbert DO Status: REG CLI Study: Thyroid Date of Exam: 10/19/15 Exam# [id number] Ordering Dr: Phyllis Tolbert DO STUDY: THYROID ULTRASOUND REASON FOR EXAM: Female, 65 years old. History of goiter. TECHNIQUE: Ultrasound evaluation of the thyroid was performed with real-time and static snyder-scale imaging. COMPARISON: Comparison is made with prior examination dated August 02, 2014. FINDINGS: RIGHT LOBE: The right lobe of the thyroid gland measures 4.8 cm x 1.9 cm x 1.5 cm. There is a homogeneous echotexture. There is a 6 mm x 5 mm x 4 mm slightly echogenic nodule in the lower pole of the right lobe. LEFT LOBE: The left lobe of the thyroid gland measures 4.8 cm x 1.8 cm x 1.6 cm. There is a there is a 9 mm x 6 mm x 5 mm hypoechoic solid nodule as well as a 2 mm cyst. This is unchanged.. There are no demonstrated solid, cystic or complex lesions. ISTHMUS: The isthmus measures 5.0 mm. The regional lymph nodes are normal. IMPRESSION: Subcentimeter bilateral thyroid nodules. The left lobe is unchanged. Electronically Signed: Miguel Barrios MD at 15:38 EST Tel [phone], Service support [phone], CC: Phyllis Tolbert DO Air Brake Tester: Signed Phyllis Tolbert Work Phone: Start: 08-31-2015 End: 08-31-2015 Hip min 2 Views Comments: See Note; NOTES: [facility] Imaging Services [address] [place] [address] Verdana 4d Hip min 2 Views MR#: [id number] Acct: [id number] Name: MAYA CURRY Rep #: [id number] : 1950 F 65 From: Garrison Briscoe MD PCP: Phyllis Tolbert DO Status: REG CLI Study: Hip min 2 Views Date of Exam: 08/31/15 Exam# [id number] Ordering Dr: Clarke Nielson MD STUDY: X-RAY - PELVIS AND LEFT HIP REASON FOR EXAM: Female, 65 years old. B/l hip pain, pt has a hx of breast cancer, family hx of bone cancer TECHNIQUE: Radiological exam, hip, unilateral, with pelvis when performed; 2 or 3 views. COMPARISON: None. FINDINGS: There is a non-specific bowel gas pattern. Normal visualized soft tissue structures. Normal bilateral iliac wings, sacroiliac joints and visualized sacrum. Normal bilateral superior and inferior pubic rami. Normal pubic symphysis. Normal bilateral ischial tuberosities. Normal visualized femoral head. Normal acetabulum. Normal hip joint. IMPRESSION: Normal x-ray examination of the pelvis and hip. Electronically Signed: Garrison Briscoe MD, FACR at 19:05 EST , Service support [phone], RAD/Hip min 2 Views IMPRESSION: Normal x-ray examination of the pelvis and hip. Electronically Signed: Garrison Briscoe MD, FACR at 19:05 EST , Service support [phone], CC: Phyllis Tolbert DO; Clarke Nielson Air Brake Tester: Signed Moira Ramsey Start: 08-31-2015 End: 08-31-2015 L/S Spine Min 4 Views Comments: See Note; NOTES: [facility] Imaging Services [address] [place] [address] Verdana 4d L/S Spine Min 4 Views MR#: [id number] Acct: [id number] Name: MAYA CURRY Rep #: [id number] : 1950 F 65 From: Garrison Briscoe MD PCP: Phyllis Tolbert DO Status: REG CLI Study: L/S Spine Min 4 Views Date of Exam: 08/31/15 Exam# [id number] Ordering Dr: Clarke Nielson MD STUDY: X-RAY - LUMBAR SPINE REASON FOR EXAM: Female, 65 years old. Low back pain, herniated disc, pt has a hx of breast ca, family hx of bone ca TECHNIQUE: 5 view(s) of the lumbar spine were obtained. COMPARISON: None FINDINGS: Normal lumbar lordosis. There is no substantial scoliosis. There is a normal alignment of the vertebrae. Normal vertebral bodies and endplates. There is disc space narrowing at L5-S1. The soft tissue structures are unremarkable. IMPRESSION: L5-S1 degenerative disc disease. Electronically Signed: Garrison Briscoe MD, FACR at 19:06 EST , Service support [phone], RAD/L/S Spine Min 4 Views IMPRESSION: L5-S1 degenerative disc disease. Electronically Signed: Garrison Briscoe MD, FACR at 19:06 EST , Service support [phone], CC: Phyllis Tolbert DO; Clarke Nielson Air Brake Tester: Signed Moira Ramsey Start: 06-16-2015 End: 06-16-2015 Aorta Comments: See Note; NOTES: [facility] Imaging Services [address] [place] [address] Verdana 4d Aorta MR#: [id number] Acct: [id number] Name: MAYA CURRY Rep #: [id number] : 1950 F 65 From: William Erazo MD PCP: Phyllis Tolbert DO Status: REG CLI Study: Aorta Date of Exam: 06/16/15 Exam# [id number] Ordering Dr: Phyllis Tolbert DO PROCEDURES: ULTRASOUND AORTA REASON FOR EXAM: Female, 65 years old. Screening for abdominal aortic aneurysm TECHNIQUE: Ultrasound evaluation of the aorta was performed with real-time and static snyder-scale imaging. COMPARISON: None. FINDINGS: There is no elongation or tortuosity of the abdominal aorta. Aorta measures: Proximal 2.1 cm. Middle 1.5 cm. Distal 1.3 cm. Aorta measure transversely: Proximal 2.1 cm. Middle 1.5 cm. Distal 1.3 cm. Right iliac artery measures: 0.9 cm. Right iliac artery measure transversely: 0.7 cm. Left iliac artery measures: 1.0 cm. Left iliac artery measure transversely: 0.9 cm. There is no demonstrated aneurysm.. IMPRESSION: There is no evidence of abdominal aortic aneurysm. Electronically Signed: Brenda Erazo MD at 16:47 EDT Tel , Service support [phone], CC: Phyllis Tolbert DO Air Brake Tester: Signed Phyllis Tolbert Work Phone: Start: 11-23-2014 End: 11-23-2014 PT Discharge Summary Comments: See Note; NOTES: [facility] Therapy [facility] [address] [place], [place] [address] Fax REHABILITATION SERVICES DISCHARGE SUMMARY MR#: [id number] Acct: [id number] Name: MAYA CURRY Rep #: [id number] : 1950 64 From: Mari Orozco Referring DrRose Mary: Mariaelena Burr Status: DIS RCR Eval Date: Discharge Date: 11/01/14 DATE OF SERVICE: 11/01/2014 This patient was referred to physical therapy by Mariaelena Burr with complaint of bilateral low back, left buttock/hip/thigh pain that started on September 27, 2014 after prolonged sitting in a straight chair with her mom in the Emergency Department the prior day. She has a history of chronic low back pain and a history of breast cancer in 2008. She has been seen in our clinic times a total of 4 visits during this episode of care. She reports that her hip stayed better after the last physical therapy treatment and she was able to exercise in the pool much better yesterday. Her physical therapy has mainly consisted of electrical stimulation with cold pack, instruction in gentle repeated extension in lying, reinforcement for proper posture control and body mechanics and very slight soft tissue mobilization. Upon examination, lumbar movement loss is as follows: Flexion moderate, extension major, bilateral side gliding moderate to major. The patient had minimal increase in pain with lumbar range of motion testing today. She has a negative right and positive left dural test. She has positive bilateral straight leg raising test. Bilateral hip flexion strength equals 4-/5, but otherwise lower extremity strength is 5/5. After treatment today she reported 1/10 left hip and no thigh pain. She is much improved compared to her initial evaluation 4 visits ago. She is moving better and I am discharging her to independent exercise at this time. I did recommend follow up with Dr. Tolbert due to the exam results stated above. She is agreeable. Mari Orozco, PT T: [facility] JOB: [id number] <Electronically signed by Mari Orozco > 11/23/14 0953 CC: Signed Moira Ramsey Start: 10-17-2014 End: 10-17-2014 Inital Evaluation - PT Comments: See Note; NOTES: [facility] [address] [place] [address] Fax REHABILITATION SERVICES INITIAL EVALUATION MR#: [id number] Acct: [id number] Name: MAYA CURRY Rep #: [id number] : 1950 64 From: Mari Orozco Referring DrRose Mary: Mariaelena Burr Status: REG RCR Insurance: Chairish BA Eval Date: DATE OF SERVICE: 10/14/2014 SUBJECTIVE: This patient presents to physical therapy with complaint of back, left hip, left buttock and left thigh pain. The pain started on September 27, 2014 after sitting in a straight chair too long in the emergency department with her mom. Her pain is now improving. Her pain is constant ranging 5-8/10, currently 7/10. She reports increased pain with trying to wash her feet in the shower, transferring to lying, getting in the car and putting her socks and shoes on. She reports decreased pain with ice, change of positions and using weights on her ankles in the deep water in our pool. The pain is no longer disturbing her sleep. She has had a Toradol injection on October 05, 2014, 6 days of prednisone and hydrocodone. She reports that she plans to have 3 epidural steroid injections with Dr. Peraza in November. She had 3 epidural steroid injections about 6 months ago in 2013 also. She has a history of chronic low back pain. Currently, sneezing increases her pain. She has had to use her cane again since this episode started. She denies difficulty initiating urination. She is still taking a muscle relaxer and Tylenol Arthritis. PAST MEDICAL HISTORY: Her past medical history is significant for breast cancer in 2008 and mitral valve prolapse. She has had a lumbar MRI in the past that showed 2 herniated disks and stenosis. She denies having been in any accidents or any unexplained weight loss. OBJECTIVE: This patient ambulates independently into physical therapy with a slow antalgic gait pattern, mild limp on the left lower extremity and use of a straight cane. Her balance is good. Her sitting posture is poor. Her standing posture is poor. She has a reduced lumbar lordosis and a right lateral shift. The shift is not relevant in that she can cross midline to the left. Right hip flexion strength 4-/5, left 3+/5. Otherwise, bilateral lower extremity strength is 5/5 with manual muscle testing. Bilateral lower extremity light touch sensation is intact and symmetrical. She has a positive left slump test and positive bilateral lower extremity straight leg raise testing. She has poor core strength. In standing, her right shoulder level is lower than the left and she has ____ shift to the right alluded to above. Lumbar movement loss: Flexion moderate, extension major, right side gliding moderate, left side gliding major. She has pain with lumbar range of motion testing in all planes except for right side gliding. She has tenderness with very light palpation of the entire lumbosacral regions. Repeated extension in lying helps. TREATMENT: The patient was seen today for gentle repeated extension in lying x5 repetitions and transcutaneous electrical nerve stimulation with cold pack x10 minutes. She reported 0/10 pain posttreatment walking out. ASSESSMENT: This patient is a 64-year-old female with complaint of bilateral low back, left buttock/hip/thigh pain that started on September 27, 2014 after prolonged sitting in straight chair with her mom in the emergency department the day before. She has a history of chronic low back pain and a history of breast cancer in 2008. GOALS: 1. Decrease complaint of low back pain. 2. Decrease complaint of left lower extremity symptoms. 3. Improve showering, dressing and transferring function. 4. Instruct in prophylaxis. PLAN: We plan to see this patient 1 time a week x4 weeks for modalities as needed, therapeutic exercise and therapeutic activities to meet the above goals. She was agreeable with this plan of care. Mari Orozco, PT T: [facility] JOB: [id number] <Electronically signed by Mari Orozco > 10/17/14 1113 CC: Signed For Medicare only, by signing this I certify the plan of care. _ Physicians Signature Date Moira Ramsey Start: 08-02-2014 End: 08-04-2014 Dexa Bone Density Study (HP) Comments: See Note; NOTES: [facility] Imaging Services [address] [place] [address] Bone Density Report MR#: [id number] Acct: [id number] Name: MAYA CURRY Rep #: [id number] : 1950 F 64 From: Miguel Barrios MD PCP: Phyllis Tolbert DO Status: REG CLI Study: Dexa Bone Density Study (HP) Date of Exam: 08/02/14 Exam# [id number] Ordering Dr: Phyllis Tolbert DO STUDY: DUAL ENERGY X-RAY ABSORPTIOMETRY / DXA REASON FOR EXAM: Female, 64 years old. Early menopause. TECHNIQUE: Bone Mineral Density (BMD) measurements of lumbar spine and bilateral hips were obtained. COMPARISON: Comparison is made with prior study dated July 01, 2012 FINDINGS: Lumbar Spine (L1-L4): g/cm2 (0.929) / T-score (-2.3) / Z-score (-0.7) Findings are suggestive of osteopenia with a moderate fracture risk. Left Femur Total: g/cm2 (0.816) / T-score (-1.5) / Z-score (-0.4) Left Femoral Neck: g/cm2 (0.889) / T-score (-1.1) / Z-score (0.4) Right Femur Total: g/cm2 (0.809) / T-score (-1.6) / Z-score (-0.4) Right Femoral Neck: g/cm2 (0.913) / T-score (-0.9) / Z-score (0.5) The T-Scores on the most recent prior examination were: Lumbar Spine (L1-L4): There has been worsening of bone density since the previous examination. Left Femur Total: which represents a worsening of 0.6%. Right Femur Total: which represents an improvement of 0.2%. IMPRESSION: The patient is considered osteopenic as outlined below according to World Az Organization (WHO) criteria with a moderate fracture risk. There has been worsening of bone density since the previous examination. Reference Information: The T-score is the number of standard deviations above or below the standard which is normal for young adults at their peak bone mineral density. The World Health Organization (WHO) interprets the T-scores as follows: Above -1 Normal bone density Between -1 and -2.5 Osteopenia Equal to / or below -2.5 Osteoporosis As a practical clinical guideline, osteopenia may be graded as follows: Mild -1 through -1.5 Moderate -1.6 through -2.0 Severe -2.1 through -2.4 The Z-score is the number of standard deviations above or below age-matched controls. A Z-score of less than -1.5 would be considered abnormal. References: 1. NIH Osteoporosis and Related Bone Diseases http://www.osteo.org 2. International Society for Clinical Densitometry http://www.iscd.org 3. National Osteoporosis Foundation http://www.nof.org Electronically Signed: Miguel Barrios MD at 14:28 EST Tel [phone], Service support [phone], CC: Phyllis Tolbert DO Air Brake Tester: Signed Phyllis Tolbert Work Phone: Start: 08-02-2014 End: 08-02-2014 Thyroid Comments: See Note; NOTES: [facility] Imaging Services [address] [place] [address] Ultrasound Report MR#: [id number] Acct: [id number] Name: MAYA CURRY Rep #: [id number] : 1950 F 64 From: Conor Edmonds MD PCP: Phyllis Tolbert DO Status: REG CLI Study: Thyroid Date of Exam: 08/02/14 Exam# [id number] Ordering Dr: Phyllis Tolbert DO STUDY: THYROID ULTRASOUND REASON FOR EXAM: Female, 64 years old. Thyroid nodules TECHNIQUE: Ultrasound evaluation of the thyroid was performed with real-time and static snyder-scale imaging. COMPARISON: Including December 28, 2013 FINDINGS: RIGHT LOBE: The right lobe of the thyroid gland measures 5.0 x 1.8 x 1.3 cm. There is a homogeneous echotexture. Cystic nodule measuring 0.2 cm. LEFT LOBE: The left lobe of the thyroid gland measures 5.0 x 1.9 x 1.5 cm. There is a homogeneous echotexture. Hypoechoic, solid-appearing, nodule measuring 0.5 x 0.4 cm is stable. ISTHMUS: The isthmus measures 0.2 cm. The regional lymph nodes are normal. IMPRESSION: Stable small nodules. Electronically Signed: Conor Edmonds MD at 16:48 EST , Service support [phone], CC: Phyllis Tolbert DO Air Brake Tester: Signed Phyllis Tolbert Work Phone: Start: 06-20-2014 End: 06-20-2014 PT Discharge Summary Comments: See Note; NOTES: [facility] Physical Therapy [address] [place] [address] Fax REHABILITATION SERVICES DISCHARGE SUMMARY MR#: [id number] Acct: [id number] Name: MAYA CURRY Rep #: [id number] : 1950 64 From: Mari Orozco Referring DrRose Mary: Cheng FAIRBANKS Status: PRE RCR Eval Date: Discharge Date: DATE OF SERVICE: This patient was referred to physical therapy by Cheng Rutherford with complaint of left back, hip, thigh and leg symptoms that increased on March 08, 2014 when she bent down to picker / packer a bag of clothes in the car. She has been seen in our clinic times a total of 9 visits during this episode of care. Her physical therapy has mainly consisted of manual therapy for lumbar extension, mobilization and myofascial release and ice treatments. She also tried electrical stimulation. Her last visit was on May 06, 2014. I agreed to hold her chart until after consult with Dr. Vicki Nash in pain management that was planned for the following week. To my knowledge, she has not contacted us to schedule any further physical therapy at this time. She reports that Dr. Fish (surgeon) whom she saw for a consult cannot determine if her pain is coming from her back or hip, but he told her that she does not need a hip replacement. Upon examination, she has positive bilateral lower extremity dural signs. Her lumbar range of motion has not changed with therapy during this episode of care, and her hip range of motion and lower extremity strength also has not changed. She feels she is worsening, but gets temporary relief with the physical therapy treatments. She reports that walking with a cane helps a lot and she keeps it with her. Her current insurance authorization has , so I am going to go ahead and discharge this chart, but we would be happy to resume physical therapy in the future as indicated. Mari Orozco, PT T: [facility] JOB: [id number] <Electronically signed by Mari Orozco > 06/20/14 1444 CC: Signed Moira Ramsey Start: 04-11-2014 End: 04-12-2014 Spine Lumbar W/WO Contrast Comments: See Note; NOTES: [facility] Imaging Services [address] [place] [address] MRI Report MR#: [id number] Acct: [id number] Name: MAYA CURRY Rep #: [id number] : 1950 F 63 From: Ramos Modi DO PCP: Phyllis Tolbert DO Status: REG CLI Study: Spine Lumbar W/WO Contrast Date of Exam: 04/11/14 Exam# [id number] Ordering Dr: Phyllis Tolbert DO STUDY: MRI LUMBAR SPINE WITH AND WITHOUT CONTRAST REASON FOR EXAM: Female, 63 years old. The patient provides a history of low back and left leg pain since October 2013. The patient has a history of breast cancer diagnosed in 2008. TECHNIQUE: The following pulse sequences were obtained: 9 ml of Gadavist contrast material was administered for the contrast portion of the examination. COMPARISON: X-RAY LUMBAR SPINE-December 28, 2013 Sagittal: T1, T1 fat-sat postcontrast, T2, STIR; axial: T1 pre-and postcontrast, T2. FINDINGS: T12-L1: (Imaged only in the sagittal plane). There is disc desiccation with preservation of the disc height. There is no disc displacement. Normal central canal and intervertebral neural foramina. There is an exaggerated lumbar lordosis. There is no substantial scoliosis. Normal conus medullaris that terminates at the the superior endplate of the L1 vertebra. L1-2: There is disc desiccation, moderate loss of the disc height, mild facet arthrosis, with a 3 mm L1 retrolisthesis in relationship to the L2 vertebra. Normal central canal and intervertebral neural foramina. L2-3: There is disc desiccation, mild loss of the disc height, facet arthrosis, with a left foraminal disc herniation of the protrusion type (axial T2 series 5, image 18; sagittal T2 series 2, image 4). The disc protrusion measures approximately 4 mm in width, extending from the foraminal to far left lateral extraforaminal location, with a prominent annular tear. The disc protrusion has produced retro-discal foraminal compromise, however there remains a widely patent left L2-3 intervertebral neural foramina without neural impingement (sagittal T1 series 3, image 3; axial T1 series 6, image 25). Normal central canal and right L2-3 intervertebral neural foramina. L3-4: There is disc desiccation, mild loss of the disc height posteriorly, minimal endplate spondylosis, annular bulging and mild facet arthrosis. Normal central canal and intervertebral neural foramina. L4-5: There is disc desiccation, moderate loss of the disc height, mild endplate spondylosis and annular bulging with facet arthrosis and with a shallow broad-based left foraminal disc protrusion (sagittal T1 series 3, image 3; sagittal T2 series 2, image 3; axial T1 series 6, image 11; axial T2 series 5, image 8). The disc protrusion measures 3 x 10 mm and is producing minimal retro-discal left-sided foraminal compromise, but without morphologic neural impingement upon the exiting left L4 nerve root. Normal central canal and right L4-5 intervertebral neural foramina. L5-S1: There is disc desiccation, severe loss of the disc height posteriorly circumferential annular bulging and moderate facet arthrosis. Normal central canal and intervertebral neural foramina. Normal visualized sacral ala. There is diffuse edema of the subcutaneous adipose space extending along the posterior spinous processes from the T12-L3 levels. There is no demonstrated abnormal enhancement. There are no findings of metastatic disease. IMPRESSION: 1. Multilevel degenerative disease, endplate spondylosis and facet arthroses of the entire lumbar spine with an increased lumbar lordosis. 2. No metastatic disease of the lumbar spine. 3. L2-3 left foraminal disc protrusion without foraminal neural impingement. 4. L4-5 degenerative disc disease with a shallow broad-based left foraminal disc protrusion without neural impingement. 5. L5-S1 advanced degenerative disc disease with severe loss of the disc height. Electronically Signed: Ramos Modi DO at 7:31 EDT Tel , Service support [phone], CC: Phyllis Tolbert DO Air Brake Tester: Signed Phyllis Tolbert Work Phone: Start: 04-08-2014 End: 04-08-2014 Inital Evaluation - PT Comments: See Note; NOTES: [facility] Physical Therapy [facility] [place] [address] Fax REHABILITATION SERVICES INITIAL EVALUATION MR#: [id number] Acct: [id number] Name: MAYA CURRY Rep #: [id number] : 1950 63 From: Mari Orozco Referring DrRose Mary: Cheng FAIRBANKS Status: REG RCR Insurance: Chairish [facility] Eval Date: DATE OF SERVICE: 03/31/2014 SUBJECTIVE: This patient was referred to physical therapy by Dr. Cheng Rutherford with a diagnosis of enthesopathy of the hip. She presents to physical therapy with complaint of left back, hip, thigh and leg symptoms that started March 08, 2014 when she leaned over in the car to picker / packer a bag of clothes. She reports that her low back and left hip pain is constant, ranging 4 or 5/10-10/10. She also has constant left thigh and leg pain and tingling. The symptoms stop at her ankle. She reports that everything makes her worse. Nothing is making it better. The pain is disturbing her sleep. She states "I am up all night with it." She reports that March 24, 2014, she received a left hip cortisone shot and has had maybe slight improvement from it. She reports she has even had to use a cane lately. She reports that she has had recent x-rays of her hip, leg and pelvis. She denies recent back x-rays. She is using Tylenol [id number] only. OBJECTIVE: This patient ambulates independently into physical therapy with a slow antalgic gait pattern, limping on the left lower extremity. Right lower extremity strength is 5/5 with manual muscle testing except for right hip flexion graded 4/5. Left lower extremity strength: Hip flexion 2/5, knee extension 5/5, knee flexion 4/5, hip abduction 3+/5, hip external rotation 3+/5, internal rotation 4/5, ankle dorsiflexion 5/5. Bilateral lower extremity light touch sensation is intact and symmetrical. Right lower extremity dural sign is negative, left lower extremity dural sign is positive. All transfers are guarded. She has mild tenderness with the left greater trochanter region and exquisite tenderness in the entire lumbosacral regions. ASSESSMENT: This patient is a 63-year-old female that was here for a recent episode of care with a diagnosis of lumbar radiculopathy, but had 90% improvement at the conclusion of that therapy in February. She reports increased left back, hip, thigh and leg symptoms March 08, 2014 when she bent down to picker / packer a light bag of clothes in the car. GOALS: 1. Decrease complaint of low back pain. 2. Decrease complaint of left lower extremity symptoms. 3. Improve bending, sitting, standing, rising from sitting, walking, ADL, exercise and sleep function. 4. Instruct in prophylaxis. PLAN: We plan to see this patient 3 times a week x3-4 weeks for modalities as needed (the patient is hypersensitive to heat), gentle lumbar and lower extremity range of motion and strengthening as tolerated to help meet the above goals. She was agreeable with this course of therapy. Mari Orozco, PT T: [facility] JOB: [id number] <Electronically signed by Mari Orozco > 04/08/14 6370 CC: Signed For Medicare only, by signing this I certify the plan of care. _ Physicians Signature Date Moira Ramsey Start: 03-02-2014 End: 03-02-2014 PT Discharge Summary Comments: See Note; NOTES: [facility] Physical [facility] [place] [address] Fax REHABILITATION SERVICES DISCHARGE SUMMARY MR#: [id number] Acct: [id number] Name: MAYA CURRY Rep #: [id number] : 1950 63 From: Mari Orozco Referring : Phyllis Tolbert DO Status: REG RCR Eval Date: Discharge Date: DATE OF SERVICE: 03/01/2014 This patient was referred to physical therapy by Dr. Phyllis Tolbert with a diagnosis of back pain with radiculopathy. She has been seen in our clinic times a total of 19 visits. Her physical therapy started on land and then due to increased upper body pain with land exercises we transitioned to water. Upon presentation to physical therapy today, she reports 90 percent improvement since starting physical therapy and being really happy with the treatment. She continues to have intermittent left hip tingling, intermittent low back pain and intermittent leg symptoms, but all to a less degree than at the beginning of therapy. Upon examination, she still has significant findings with tenderness with light palpation of the L3, 4, 5 and sacral regions, and range pain with right hip flexion to 95 degrees and positive bilateral Cedric tests. She also has pain with lumbar range of motion testing in all planes and limitations as follows: Flexion nil, extension moderate, left side glide moderate, right side glide minimal. She is now able to independently transfer from sit to stand without the use of her upper extremities. I am discharging her with recommendations to follow up with Dr. Tolbert and to independent exercise in the water with modifications as instructed. She is agreeable with discharge. Mari Orozco, PT T: [facility] JOB: [id number] <Electronically signed by Mari Orozco > 03/02/14 1118 CC: Signed Moira Ramsey Start: 01-13-2014 End: 01-13-2014 Inital Evaluation - PT Comments: See Note; NOTES: [facility] [address] [place], [place] [address] Fax REHABILITATION SERVICES INITIAL EVALUATION MR#: [id number] Acct: [id number] Name: MAYA CURRY Rep #: [id number] : 1950 63 From: Mari Orozco Referring Dr.: Phyllis Tolbert DO Status: REG RCR Insurance: Chairish [facility] Date: DATE OF SERVICE: 01/06/2014 SUBJECTIVE: This patient was referred to physical therapy by Dr. Phyllis Tolbert with a diagnosis of low back pain with radiculopathy. She presents with complaint of low back, left hip/thigh, left knee and bilateral carson pain. She reports that her left posterior hip pain started about 1-1/2 months ago when she increased her exercise to 4 times a week. Currently, prolonged sitting, walking on the treadmill, standing, walking, doing bending exercises in the water with the noodle increase her pain. She reports increased central low back pain first thing in the morning. She reports that gentle exercise in the water and Tylenol help her pain. The pain is not disturbing her sleep. She reports that she has had low back problems all of her life but especially since 2008. She had physical therapy about a year ago and she reports trying to be compliant with the exercise that she was given at that time. She currently denies increased pain with coughing, sneezing or straining. She reports limping on the left lower extremity. She denies difficulty initiating urination. She is exercising 2-3 times a week here at [facility] in the water, but is limited at this time by hip and knee pain on the left. She denies having been in any accidents or any unexplained weight loss. The patient is hypersensitive to heat. PAST MEDICAL HISTORY: Significant for breast cancer treated with chemotherapy and radiation in 2009, mitral valve prolapse, osteoporosis, arthritis and hysterectomy. She reports that she had an x-ray of her lumbar spine showing L5-S1 degenerative disk disease. OBJECTIVE: This patient ambulates independently into physical therapy without any assistive devices. Her sitting posture is poor. Her standing posture is fair. She has a mildly reduced lumbar lordosis and no relevant lateral shift. Active correction of her sitting posture decreases her complaint of pain. Bilateral lower extremity strength is 5/5 with manual muscle testing. Bilateral lower extremity light touch sensation is intact and symmetrical. I was unable to elicit bilateral lower extremity reflexes. She has a positive left lower extremity dural sign and negative right lower extremity dural sign. Lumbar movement loss: Flexion -- nil, extension -- major, right side gliding - - moderate, left side gliding -- major. The patient has complaint of increased pain with lumbar range of motion testing. Her left iliac crest is higher than the right in standing. She has poor core strength. Left hip flexion equals 90 degrees, right 95 degrees. She has positive bilateral Cedric test, left greater than right. Bilateral hip external rotation is within normal limits, but she has major bilateral internal rotation movement loss. It is symmetrical. She is dependent upon her upper extremities to transfer from sit to stand. She has bilateral leg soreness with palpation throughout. She also has tenderness in the lumbosacral regions with light palpation. GOALS: 1. Decrease complaint of low back pain. 2. Decrease complaint of left lower extremity symptoms. 3. Improve sitting, standing, walking and exercise function. 4. Instruct in prophylaxis. PLAN: We plan to see this patient 2-3 times a week x4-6 weeks for gentle dynamic lumbar stabilization, posture correction/strengthening and Esequiel's extension principle of treatment as tolerated to help meet the above goals. We will take into consideration that this patient is hypersensitive to heat. She is agreeable with this plan of care. Mari Orozco, PT T: [facility] JOB: [id number] <Electronically signed by Mari Orozco > 01/13/14 1205 CC: Signed For Medicare only, by signing this I certify the plan of care. _ Physicians Signature Date Phyllis Tolbert Work Phone: Start: 12-28-2013 End: 12-28-2013 Hip min 2 Views Comments: See Note; NOTES: [facility] Imaging Services [address] [place] [address] Radiology Report MR#: [id number] Acct: [id number] Name: RENEMAYA Carrasquillo Rep #: [id number] : 1950 F 63 From: Miguel Barrios MD PCP: Phyllis Tolbert DO Status: REG CLI Study: Hip min 2 Views Date of Exam: 12/28/13 Exam# [id number] Ordering Dr: Phyllis Tolbert DO STUDY: X-RAY - LEFT HIP REASON FOR EXAM: Female, 63 years old. Hip pain. TECHNIQUE: 2 view(s) of the hip. COMPARISON: None. FINDINGS: Normal femoral head, neck, intertrochanteric region and visualized proximal femur. There is osteoarthritic spur formation of the acetabular rim. There is mild articular joint space narrowing. Normal visualized superior and inferior pubic rami and ischial tuberosities. IMPRESSION: Degenerative changes of the hip. Electronically Signed: Miguel Barrios MD at 16:16 EDT Tel [phone], Service support [phone], CC: Phyllis Tolbert DO Air Brake Tester: Signed Phyllis Tolbert Work Phone: Start: 12-28-2013 End: 12-28-2013 L/S Spine Min 4 Views Comments: See Note; NOTES: [facility] Imaging Services [address] [place] [address] Radiology Report MR#: [id number] Acct: [id number] Name: MAYA CURRY Rep #: [id number] : 1950 F 63 From: Tadeo Lopes MD PCP: Phyllis Tolbert DO Status: REG CLI Study: L/S Spine Min 4 Views Date of Exam: 12/28/13 Exam# [id number] Ordering Dr: Phyllis Tolbert DO STUDY: X-RAY - LUMBAR SPINE REASON FOR EXAM: Female, 63 years old. Low back pain TECHNIQUE: 5 view(s) of the lumbar spine were obtained. COMPARISON: None FINDINGS: Normal lumbar lordosis. There is no substantial scoliosis. There is a normal alignment of the vertebrae. There is diffuse demineralization with multi-level endplate spondylosis. There is multi-level degenerative disc disease with multi-level disc space narrowing, most pronounced at L5-S1. There is no demonstrated fracture. There is no demonstrated spondylolysis of the pars interarticulares. The soft tissue structures are unremarkable. IMPRESSION: Degenerative changes of the spine, as detailed above. Electronically Signed: Mason Lopes MD at 17:31 EDT , Service support [phone], CC: Phyllis Tolbert DO Air Brake Tester: Signed Phyllis Tolbert Work Phone: Start: 12-28-2013 End: 12-28-2013 Thyroid Comments: See Note; NOTES: [facility] Imaging Services [address] [place] [id number] Ultrasound Report MR#: [id number] Acct: [id number] Name: MAYA CURRY Rep #: [id number] : 1950 F 63 From: Lobo Wilson DO PCP: Phyllis Tolbert DO Status: REG CLI Study: Thyroid Date of Exam: 12/28/13 Exam# [id number] Ordering Dr: Phyllis Tolbert DO STUDY: THYROID ULTRASOUND REASON FOR EXAM: Female, 63 years old. Nodules TECHNIQUE: Ultrasound evaluation of the thyroid was performed with real-time and static snyder-scale imaging. COMPARISON: January 05, 2013. FINDINGS: RIGHT LOBE: The right lobe of the thyroid gland measures 4.5 x 1.9 x 1.4 cm. There is a heterogeneous echotexture. There is a 2 mm cyst at the upper pole. LEFT LOBE: The left lobe of the thyroid gland measures 4.5 x 1.8 x 1.4 cm. There is a heterogeneous echotexture. There is a heterogeneous solid 5 x 4 mm mid thyroid nodule ISTHMUS: The isthmus measures 5 mm . IMPRESSION: Heterogeneity of the thyroid. Small stable cystic structure of the right lobe. Stable solid nodule in the left lobe. Electronically Signed: Lobo Wilson DO at 20:49 EDT Tel [phone], Service support [phone], CC: Phyllis Tolbert DO Air Brake Tester: Signed Phyllis Tolbert Work Phone: 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 History of lumbar laminectomy for spinal cord decompression Total hysterectomy Isabella le Plan of Treatment Date Care Activity Detail Author Start: 09-18-2022 Patient referral [facility] Work Phone: Start: 07-02-2018 Provider Instruction s for Treatment Follow up in 3 weeks [facility] Work Phone: Start: 05-21-2018 Provider Instruction s for Treatment [facility] Work Phone: Start: 03-19-2018 Iron binding capacity IRON BIN DING CAPACITY (TIBC) (43193) [facility] Work Phone: Start: 03-19-2018 Iron mass conc IRON (31845) [facility] Work Phone: Start: 03-19-2018 Ferritin mass conc FERRITIN (18971) [facility] Work Phone: Start: 03-19-2018 Cobalamin (Vitamin B12) mass conc VITAMIN B-12 (CYANOCOBALAMIN) (72315) [facility] Work Phone: Start: 03-19-2018 Procedure Education Eprescribe d prescriptions (G8553) [facility] Work Phone: Start: 03-19-2018 Provider Instruction s for Treatment Reviewed Dry Starch Supervisor Letter [facility] Work Phone: Start: 03-19-2018 Iron and Iron bindin g capacity panel - Serum or Plasma [facility] Start: 03-18-2018 DXA Bone [Mass/Area] Bone density [facility] Start: 03-18-[address] [facility] Start: 01-15-2018 Provider Instruction s for Treatment [facility] Work Phone: Start: 01-15-2018 25 hydroxy includes fractions if performed CALCIFIDIOL (07778) VIT D 25 [facility] Work Phone: Start: 01-15-2018 Thyrotropin Qn TSH (92526) [facility] Work Phone: Start: 01-15-2018 Urnls dip stick/tabl et reagent auto microscopy URINALYSIS, W/ MICRO (18443) [facility] Work Phone: Start: 01-15-2018 Urine albumin quantitative MICROALBUMIN: CREATININE RATIO (94417) AND (44311) [facility] Work Phone: Start: 01-15-2018 Comprehensive metabolic panel METABOLIC PANEL, COMPREHENSIVE (48229) [facility] Work Phone: Start: 01-15-2018 Lipid panel LIPID PANEL (72744) [facility] Work Phone: Start: 01-15-2018 Blood count complete auto&auto difrntl wbc CBC W/AUTO DIFF WBC (69765) [facility] Work Phone: Start: 12-03-2017 Procedure Education Eprescribe d prescriptions (G8553) [facility] Work Phone: Start: 12-03-2017 Provider Instruction s for Treatment Continue Current Prescription(s) [facility] Work Phone: Start: 11-19-2017 Procedure Education Eprescribe d prescriptions (G8553) [facility] Work Phone: Start: 10-14-2017 Procedure Education Eprescribe d prescriptions (G8553) [facility] Work Phone: Start: 10-14-2017 Provider Instruction s for Treatment Follow up if no improvement or if symptoms worsen [facility] Work Phone: Start: 09-24-2017 Provider Instruction s for Treatment [facility] Work Phone: Start: 05-21-2017 Procedure Education Eprescribe d prescriptions (G8553) [facility] Work Phone: Start: 05-21-2017 Provider Instruction s for Treatment [facility] Work Phone: Start: 05-21-2017 Thyrotropin Qn TSH (48023) [facility] Work Phone: Start: 05-21-2017 Urnls dip stick/tabl et reagent auto microscopy URINALYSIS, W/ MICRO (21320) [facility] Work Phone: Start: 05-21-2017 Comprehensive metabolic panel METABOLIC PANEL, COMPREHENSIVE (59054) [facility] Work Phone: Start: 05-21-2017 Urine albumin quantitative MICROALBUMIN: CREATININE RATIO (17076) AND (04644) [facility] Work Phone: Start: 05-21-2017 Blood count complete auto&auto difrntl wbc CBC W/AUTO DIFF WBC (85465) [facility] Work Phone: Start: 05-21-2017 Lipid panel LIPID PANEL (15399) [facility] Work Phone: Start: 05-21-2017 25 hydroxy includes fractions if performed CALCIFIDIOL (88852) VIT D 25 [facility] Work Phone: Start: 03-24-2017 Provider Instruction s for Treatment Reviewed Diagnostic Tests [facility] Work Phone: Start: 01-07-2017 Procedure Education Eprescribe d prescriptions (G8553) [facility] Work Phone: Start: 01-07-2017 Provider Instruction s for Treatment Follow up if no improvement or if symptoms worsen [facility] Work Phone: Start: 11-20-2016 Procedure Education Eprescribe d prescriptions (G8553) [facility] Work Phone: Start: 11-20-2016 Provider Instruction s for Treatment Follow up in 4 weeks [facility] Work Phone: Start: 10-30-2016 Procedure Education Eprescribe d prescriptions (G8553) [facility] Work Phone: Start: 10-30-2016 Provider Instruction s for Treatment [facility] Work Phone: Start: 08-29-2016 Procedure Education Eprescribe d prescriptions (G8553) [facility] Work Phone: Start: 08-29-2016 Provider Instruction s for Treatment [facility] Work Phone: Start: 08-29-2016 Magnesium mass conc MAGNESIUM (75523 ) [facility] Work Phone: Start: 08-29-2016 T3 free mass conc T3, FREE (TRIDOTHYRONINE) (54823) [facility] Work Phone: Start: 08-29-2016 T4 free mass conc T4, FREE (TH YROXINE) (88127) [facility] Work Phone: Start: 08-29-2016 Thyrotropin Qn TSH (01041) [facility] Work Phone: Start: 08-29-2016 25 hydroxy includes fractions if performed CALCIFIDIOL (34384) VIT D 25 [facility] Work Phone: Start: 08-29-2016 Urnls dip stick/tabl et reagent auto microscopy URINALYSIS, W/ MICRO (75709) [facility] Work Phone: Start: 08-29-2016 Urine albumin quantitative MICROALBUMIN: CREATININE RATIO (31754) AND (75645) [facility] Work Phone: Start: 08-29-2016 Comprehensive metabolic panel METABOLIC PANEL, COMPREHENSIVE (16654) [facility] Work Phone: Start: 08-29-2016 Lipid panel LIPID PANEL (44161) [facility] Work Phone: Start: 08-29-2016 Blood count complete auto&auto difrntl wbc CBC W/AUTO DIFF WBC (50183) [facility] Work Phone: Start: 06-27-2016 Provider Instruction s for Treatment [facility] Work Phone: Start: 05-16-2016 Provider Instruction s for Treatment [facility] Work Phone: Start: 05-16-2016 Blood occult fecal h gb deter ia qual feces 1-3 FECAL OCCULT- Tubes sent home (09130) [facility] Work Phone: Start: 02-21-2016 Procedure Education Eprescribe d prescriptions (G8553) [facility] Work Phone: Start: 02-21-2016 Provider Instruction s for Treatment [facility] Work Phone: Start: 02-21-2016 Hepatic function panel HEPATIC FUNCTION PANEL (26213) [facility] Work Phone: Start: 02-21-2016 Lipid panel LIPID PANEL (01199) [facility] Work Phone: Start: 02-21-2016 25 hydroxy includes fractions if performed CALCIFIDIOL (83726) VIT D 25 [facility] Work Phone: Start: 11-21-2015 Procedure Education Eprescribe d prescriptions (G8553) [facility] Work Phone: Start: 11-21-2015 Blood count complete auto&auto difrntl wbc CBC W/AUTO DIFF WBC (05442) [facility] Work Phone: Start: 11-21-2015 Comprehensive metabolic panel METABOLIC PANEL, COMPREHENSIVE (23402) [facility] Work Phone: Start: 11-21-2015 25 hydroxy includes fractions if performed Vitamin D Hydroxy (35351) [facility] Work Phone: Start: 11-21-2015 Lipid panel LIPID PANEL (59888) [facility] Work Phone: Start: 10-23-2015 Provider Instruction s for Treatment [facility] Work Phone: Start: 10-03-2015 Procedure Education Eprescribe d prescriptions (G8553) [facility] Work Phone: Start: 10-03-2015 Comprehensive metabolic panel METABOLIC PANEL, COMPREHENSIVE (75668) [facility] Work Phone: Start: 10-03-2015 Lipid panel LIPID PANEL (03428) [facility] Work Phone: Start: 10-03-2015 Thyrotropin Qn TSH (79913) [facility] Work Phone: Start: 10-03-2015 25 hydroxy includes fractions if performed Vitamin D Hydroxy (51192) [facility] Work Phone: Start: 08-28-2015 Procedure Education Eprescribe d prescriptions (G8553) [facility] Work Phone: Start: 07-18-2015 Procedure Education Eprescribe d prescriptions (G8553) [facility] Work Phone: Start: 07-18-2015 Provider Instruction s for Treatment Diet, Exercise, and Wt loss [facility] Work Phone: Start: 05-12-2015 Procedure Education Eprescribe d prescriptions (G8553) [facility] Work Phone: Start: 05-12-2015 Provider Instruction s for Treatment fall reduction handout [facility] Work Phone: Start: 05-12-2015 Blood occult fecal h gb deter ia qual feces 1-3 FECAL OCCULT HGB ASSAY- tubes sent home (76854) [facility] Work Phone: Start: 03-20-2015 Procedure Education Eprescribe d prescriptions (G8553) [facility] Work Phone: Start: 03-20-2015 Urnls dip stick/tabl et reagent auto microscopy URINALYSIS, W/ MICRO (08129) [facility] Work Phone: Start: 03-20-2015 Blood count complete auto&auto difrntl wbc CBC W/AUTO DIFF WBC (77341) [facility] Work Phone: Start: 03-20-2015 Lipid panel LIPID PANEL (79240) [facility] Work Phone: Start: 03-20-2015 Comprehensive metabolic panel METABOLIC PANEL, COMPREHENSIVE (61562) [facility] Work Phone: Start: 03-20-2015 25 hydroxy includes fractions if performed Vitamin D Hydroxy (26805) [facility] Work Phone: Start: 11-14-2014 Procedure Education Eprescribe d prescriptions (G8553) [facility] Work Phone: Start: 11-14-2014 Blood count complete automated CBC (AUTO) (53503) [facility] Work Phone: Start: 11-14-2014 25 hydroxy includes fractions if performed Vitamin D Hydroxy (89254) [facility] Work Phone: Start: 11-14-2014 Thyrotropin Qn TSH (56691) [facility] Work Phone: Start: 11-14-2014 Comprehensive metabolic panel METABOLIC PANEL, COMPREHENSIVE (93946) [facility] Work Phone: Start: 11-14-2014 Lipid panel LIPID PANEL (11388) [facility] Work Phone: Start: 11-03-2014 Procedure Education Eprescribe d prescriptions (G8553) [facility] Work Phone: Start: 07-18-2014 Patient Education High Blood P ressure (Essential Hypertension) *: blood [facility] Work Phone: Start: 07-18-2014 Procedure Education Eprescribe d prescriptions (G8553) [facility] Work Phone: Start: 07-18-2014 25 hydroxy includes fractions if performed Vitamin D Hydroxy (40772) [facility] Work Phone: Start: 07-18-2014 Blood count complete auto&auto difrntl wbc CBC W/AUTO DIFF WBC (01999) [facility] Work Phone: Start: 07-18-2014 Comprehensive metabolic panel METABOLIC PANEL, COMPREHENSIVE (97821) [facility] Work Phone: Start: 07-18-2014 Lipid panel LIPID PANEL (37004) [facility] Work Phone: Start: 03-15-2014 Lipid panel LIPID PANEL (73357) [facility] Work Phone: Start: 03-15-2014 Blood count manual cell count each CBC WITH MANUAL DIFF (67291) [facility] Work Phone: Start: 03-15-2014 Comprehensive metabolic panel METABOLIC PANEL, COMPREHENSIVE (29544) [facility] Work Phone: Start: 03-15-2014 25 hydroxy includes fractions if performed Vitamin D Hydroxy (78047) [facility] Work Phone: Start: 03-15-2014 Thyrotropin Qn TSH (42889) [facility] Work Phone: Start: 03-15-2014 Procedure Education Eprescribe d prescriptions (G8553) [facility] Work Phone: Start: 11-02-2013 Comprehensive metabolic panel METABOLIC PANEL, COMPREHENSIVE (19273) [facility] Work Phone: Start: 11-02-2013 Thyrotropin Qn TSH (31897) [facility] Work Phone: Start: 11-02-2013 Blood count manual cell count each CBC WITH MANUAL DIFF (37560) [facility] Work Phone: Start: 11-02-2013 25 hydroxy includes fractions if performed Vitamin D Hydroxy (95767) [facility] Work Phone: Start: 11-02-2013 Lipid panel LIPID PANEL (30010) [facility] Work Phone: Start: 10-23-2013 25 hydroxy includes fractions if performed Vitamin D Hydroxy (97090) [facility] Work Phone: Start: 10-23-2013 Blood count manual cell count each CBC WITH MANUAL DIFF (25971) [facility] Work Phone: Start: 10-23-2013 Comprehensive metabolic panel METABOLIC PANEL, COMPREHENSIVE (53323) [facility] Work Phone: Start: 10-23-2013 Lipid panel LIPID PANEL (65351) [facility] Work Phone: Start: 07-02-2013 25 hydroxy includes fractions if performed Vitamin D Hydroxy (92703) [facility] Work Phone: Comment on above: 2 months Start: 03-30-2013 Lipid panel LIPID PANEL (58324) [facility] Work Phone: Start: 03-30-2013 25 hydroxy includes fractions if performed Vitamin D Hydroxy (19039) [facility] Work Phone: Start: 03-30-2013 Blood count manual cell count each CBC WITH MANUAL DIFF (08858) [facility] Work Phone: Start: 03-30-2013 Comprehensive metabolic panel METABOLIC PANEL, COMPREHENSIVE (40451) [facility] Work Phone: Start: 12-29-2012 Thyrotropin Qn TSH (09626) [facility] Work Phone: Start: 12-29-2012 Comprehensive metabolic panel METABOLIC PANEL, COMPREHENSIVE (99014) [facility] Work Phone: Start: 12-29-2012 Blood count manual cell count each CBC WITH MANUAL DIFF (58780) [facility] Work Phone: Start: 12-29-2012 Lipid panel LIPID PANEL (03611) [facility] Work Phone: Start: 12-29-2012 25 hydroxy includes fractions if performed Vitamin D Hydroxy (24630) [facility] Work Phone: Start: 10-09-2012 Culture bct isol&prsmptv id isolate ea urine URINE SUNNY CULTURE-IDENTIFICATN (24821) [facility] Work Phone: Comment on above: recheck after 10 days of cipro Start: 10-09-2012 Urinalysis qual/semiquant except immunoassays URINALYSIS (88419) [facility] Work Phone: Comment on above: recheck after 10 d ays of cipro Start: 10-05-2012 Patient Education Heartburn *: gerd [facility] Work Phone: Start: 10-05-2012 Provider Instruction s for Treatment Diet, Exercise, and Wt loss [facility] Work Phone: Start: 10-05-2012 Lipid panel LIPID PANEL (47224) [facility] Work Phone: Start: 10-05-2012 25 hydroxy includes fractions if performed Vitamin D Hydroxy (88229) [facility] Work Phone: Start: 10-05-2012 Blood count manual cell count each CBC WITH MANUAL DIFF (23929) [facility] Work Phone: Start: 10-05-2012 Comprehensive metabolic panel METABOLIC PANEL, COMPREHENSIVE (77617) [facility] Work Phone: Start: 09-25-2012 Lipid panel Lipid Panel (15294) [facility] Work Phone: Start: 07-08-2012 Thyrotropin Qn TSH (94926) [facility] Work Phone: Start: 07-08-2012 Blood count manual cell count each CBC WITH MANUAL DIFF (57497) [facility] Work Phone: Start: 07-08-2012 25 hydroxy includes fractions if performed Vitamin D Hydroxy (12062) [facility] Work Phone: Start: 06-25-2012 25 hydroxy includes fractions if performed Vitamin D Hydroxy (35853) [facility] Work Phone: Start: 06-25-2012 Comprehensive metabolic panel METABOLIC PANEL, COMPREHENSIVE (52782) [facility] Work Phone: Start: 06-25-2012 Lipid panel LIPID PANEL (17697) [facility] Work Phone: Start: 05-08-2012 Patient Education Sore Throat *: acute pharyngitis [facility] Work Phone: Start: 12-23-2011 Provider Instruction s for Treatment [facility] Work Phone: Start: 12-23-2011 Blood count manual cell count each CBC WITH MANUAL DIFF (55940) [facility] Work Phone: Start: 12-23-2011 Lipid panel LIPID PANEL (38546) [facility] Work Phone: Start: 12-23-2011 25 hydroxy includes fractions if performed Vitamin D Hydroxy (02728) [facility] Work Phone: Start: 09-24-2011 Provider Instruction s for Treatment Diet, Exercise, and Wt loss [facility] Work Phone: Start: 09-24-2011 [facility]in Qn T[facility] (34652) [facility] Work [facility] Start: 09-24-2011 Lipid panel LIPID PANEL (58676) [facility] Work Phone: Start: 09-24-2011 25 hydroxy includes fractions if performed Vitamin D Hydroxy (65298) [facility] Work Phone: Start: 09-24-2011 Blood count manual cell count each CBC WITH MANUAL DIFF (49486) [facility] Work Phone: Start: 09-24-2011 Comprehensive metabolic panel METABOLIC PANEL, COMPREHENSIVE (50522) [facility] Work Phone: Start: 09-21-2011 Comprehensive metabolic panel METABOLIC PANEL, COMPREHENSIVE (00610) [facility] Work Phone: Start: 09-21-2011 25 hydroxy includes fractions if performed Vitamin D Hydroxy (66574) [facility] Work Phone: Start: 09-21-2011 Lipid panel LIPID PANEL (77887) [facility] Work Phone: Start: 09-12-2011 Patient Education Sore throat: diagnosis and treatment [facility] Work Phone: Start: 07-15-2011 Provider Instruction s for Treatment Self breast exam [facility] Work Phone: Start: 07-15-2011 Blood occult fecal h gb deter ia qual feces 1-3 FECAL OCCULT HGB ASSAY- tubes sent home (75773) [facility] Work Phone: Start: 03-20-2011 Provider Instruction s for Treatment [facility] Work Phone: Start: 03-20-2011 25 hydroxy includes fractions if performed Vitamin D Hydroxy (13699) [facility] Work Phone: Start: 03-20-2011 Lipid panel LIPID PANEL (98961) [facility] Work Phone: Start: 12-18-2010 Comprehensive metabolic panel Metabolic Panel, Comprehensive (70906) [facility] Work Phone: Start: 10-22-2010 Assay of parathormone PARATHORMONE ( 38687) [facility] Work Phone: Start: 10-22-2010 Nuclear Ab IF titer (S) DEMARCUS (ANTINUCLEAR ANTIBODY) (43130) [facility] Work Phone: Start: 10-22-2010 CRP mass conc C-REACTIVE PRO TEIN (12471) [facility] Work Phone: Start: 10-22-2010 Sedimentation rate r bc non-automated SED RATE ERYTHROCYTE (55776) [facility] Work Phone: Start: 10-22-2010 Protein mass conc (U) Urine Pr otein Electrophoresis (UPEP) (22607) [facility] Work Phone: Start: 10-22-2010 Protein mass conc Serum Protei n Electrophoresis (SPEP) (59008) [facility] Work Phone: Start: 10-22-2010 25 hydroxy includes fractions if performed Vitamin D Hydroxy (62540) [facility] Work Phone: Start: 10-22-2010 Blood count manual cell count each CBC WITH MANUAL DIFF (61484) [facility] Work Phone: Start: 10-22-2010 Cobalamin (Vitamin B12) mass conc VITAMIN B-12 (CYANOCOBALAMIN) (14336) [facility] Work Phone: Start: 10-22-2010 Thyrotropin Qn TSH (59169) [facility] Work Phone: Start: 10-22-2010 Comprehensive metabolic panel METABOLIC PANEL, COMPREHENSIVE (15879) [facility] Work Phone: Start: 08-14-2010 Rheumatoid factor quantitative RHEUMATOID FACTOR-QUANT (87987) [facility] Work Phone: Start: 08-14-2010 Nuclear Ab IF titer (S) DEMARCUS (ANTINUCLEAR ANTIBODY) (93244) [facility] Work Phone: Start: 08-14-2010 Cobalamin (Vitamin B12) mass conc Vitamin B-12 (cyanocobalamin) (05452) [facility] Work Phone: Start: 08-14-2010 Protein mass conc (U) Urine Pr otein Electrophoresis (UPEP) (44914) [facility] Work Phone: Start: 08-14-2010 Protein mass conc Serum Protei n Electrophoresis (SPEP) (26137) [facility] Work Phone: Start: 08-14-2010 Blood count manual cell count each CBC with manual diff (31121) [facility] Work Phone: Start: 07-16-2010 25 hydroxy includes fractions if performed Vitamin D Hydroxy (51695) [facility] Work Phone: Start: 06-01-2010 Provider Instruction s for Treatment *Antibiotic Usage Education - Female [facility] Work Phone: Start: 03-07-2010 aPTT Coag time (Bld) PTT (Acti vated Partial Thromboplastin Time) (15687) [facility] Work Phone: Start: 03-07-2010 Prothrombin time (PT ) Coag time (PPP) PT (Prothrobim Time) (81694) [facility] Work Phone: Start: 03-07-2010 Comprehensive metabolic panel METABOLIC PANEL, COMPREHENSIVE (70189) [facility] Work Phone: Start: 03-07-2010 Urnls dip stick/tabl et reagent auto microscopy URINALYSIS, W/ MICRO (09690) [facility] Work Phone: Start: 03-07-2010 Blood count manual cell count each CBC WITH MANUAL DIFF (53867) [facility] Work Phone: Start: 03-07-2010 Lipid panel LIPID PANEL (89578) [facility] Work Phone: Start: 03-07-2010 25 hydroxy includes fractions if performed Vitamin D Hydroxy (11347) [facility] Work Phone: Start: 11-29-2009 Lipid panel LIPID PANEL (21662) [facility] Work Phone: Start: 11-29-2009 Comprehensive metabolic panel METABOLIC PANEL, COMPREHENSIVE (13462) [facility] Work Phone: Start: 11-29-2009 Urnls dip stick/tabl et rgnt non-auto w/o micrscp Urinalysis, Office (50304) [facility] Work Phone: Start: 11-29-2009 25 hydroxy includes fractions if performed Vitamin D Hydroxy (57598) [facility] Work Phone: Start: 09-04-2009 Thyrotropin Qn TSH (82686) [facility] Work Phone: Start: 09-04-2009 Urnls dip stick/tabl et reagent auto microscopy URINALYSIS, W/ MICRO (37122) [facility] Work Phone: Start: 09-04-2009 Blood count manual cell count each CBC WITH MANUAL DIFF (35907) [facility] Work Phone: Start: 09-04-2009 Comprehensive metabolic panel METABOLIC PANEL, COMPREHENSIVE (28101) [facility] Work Phone: Start: 09-04-2009 Lipid panel LIPID PANEL (41192) [facility] Work Phone: Start: 09-04-2009 25 hydroxy includes fractions if performed Vitamin D Hydroxy (59649) [facility] Work Phone: Start: 07-19-2009 Virus tiss cul inoculation cytopathic effect VIRAL CULTURE (23785) [facility] Work Phone: Comment on above: vaginal ulcer hsv cx Start: 03-01-2009 Thyrotropin Qn TSH (73380) [facility] Work [facility]: Start: 03-01-2009 25 hydroxy includes fractions if performed Vitamin D Hydroxy (17418) [facility] Work Phone: Start: 01-18-2009 Comprehensive metabolic panel METABOLIC PANEL, COMPREHENSIVE (83379) [facility] Work Phone: Start: 01-18-2009 Thyrotropin Qn TSH (00466) [facility] Work [facility]: Start: 01-18-2009 Blood count manual cell count each CBC WITH MANUAL DIFF (44898) [facility] Work Phone: Start: 01-18-2009 25 hydroxy includes fractions if performed Vitamin D Hydroxy (83197) [facility] Work Phone: Start: 01-18-2009 Hepatic function panel HEPATIC FUNCTION PANEL (45044) [facility] Work Phone: Start: 01-18-2009 Assay of lipase [facility] (92379) [facility] Work [facility]: Start: 01-18-2009 Amylase enzyme act/vol Amylase (8215 0) [facility] Work Phone: Start: 10-18-2008 25 hydroxy includes fractions if performed Vitamin D Hydroxy (42578) [facility] Work Phone: Start: 10-18-2008 Provider Instruction s for Treatment Diet and Exercise [facility] Work Phone: Start: 07-20-2008 Provider Instruction s for Treatment [facility] Work Phone: Start: 07-06-2008 Thyrotropin Qn TSH (72653) [facility] Work [facility]: Start: 07-06-2008 Blood count manual cell count each CBC WITH MANUAL DIFF (69639) [facility] Work Phone: Start: 07-06-2008 Comprehensive metabolic panel METABOLIC PANEL, COMPREHENSIVE (02298) [facility] Work Phone: Start: 07-06-2008 Lipid panel LIPID PANEL (45247) [facility] Work Phone: Start: 04-14-2008 Cul bact xcpt urine blood/stool aerobic isol SUNNY CULTURE-OTHER (87947) [facility] Work Phone: Start: 04-14-2008 Provider Instruction s for Treatment FOLLOW UP NEEDED [facility] Work Phone: Start: 03-30-2008 Urine albumin quantitative MICROALBUMIN URINE QUANT (70647) [facility] Work Phone: Start: 03-30-2008 25 hydroxy includes fractions if performed Vitamin D Hydroxy (37141) [facility] Work Phone: Start: 01-06-2008 Comprehensive metabolic panel METABOLIC PANEL, COMPREHENSIVE (58138) [facility] Work Phone: Start: 01-06-2008 Blood count manual cell count each CBC WITH MANUAL DIFF (89939) [facility] Work Phone: Start: 01-06-2008 Troponin I.cardiac mass conc ASSAY, TROPONIN, QUANTITATIVE (aka Troponin I) (70735) [facility] Work Phone: Start: 01-06-2008 Creatine kinase mb fraction only CPK MB FRACTION (62216) [facility] Work Phone: Start: 01-06-2008 Fibrin dgradj produc ts d-dimer quantitative D-Dimer (98130) [facility] Work Phone: Start: 01-06-2008 Calcium mass conc CALCIUM SERUM (823 10) [facility] Work Phone: Start: 01-06-2008 Phosphate mass conc PHOSPHORUS (8410 0) [facility] Work Phone: Start: 01-06-2008 Assay of parathormone PARATHORMONE ( 23311) [facility] Work Phone: Start: 01-06-2008 1 25 dihydroxy includes fractions if performed VITAMIN D, 1, 25-DIHYDROXY (75654) [facility] Work Phone: Start: 10-05-2007 Provider Instruction s for Treatment FOLLOW UP NEEDED [facility] Work Phone: Start: 09-30-2007 1 25 dihydroxy includes fractions if performed VITAMIN D, 1, 25-DIHYDROXY (30060) [facility] Work Phone: Start: 09-30-2007 Lipid panel LIPID PANEL (85778) [facility] Work Phone: Start: 09-30-2007 Hepatic function panel HEPATIC FUNCTION PANEL (44472) [facility] Work Phone: Start: 09-22-2007 Provider Instruction s for Treatment [facility] Work Phone: Start: 07-01-2007 1 25 dihydroxy includes fractions if performed VITAMIN D, 1, 25-DIHYDROXY (74345) [facility] Work Phone: Start: 07-01-2007 Provider Instruction s for Treatment FOLLOW UP IN 3 MONTHS [facility] Work Phone: Start: 05-01-2007 Provider Instruction s for Treatment [facility] Work Phone: Start: 03-27-2007 Provider Instruction s for Treatment Antibiotic Usage Education - Female [facility] Work Phone: Start: 03-27-2007 Hepatic function panel HEPATIC FUNCTION PANEL (26734) [facility] Work Phone: Start: 03-27-2007 Lipid panel LIPID PANEL (00515) [facility] Work Phone: Start: 12-18-2006 Provider Instruction s for Treatment FOLLOW UP IN 3 MONTHS [facility] Work Phone: Start: 09-12-2006 Provider Instruction s for Treatment [facility] Work Phone: Start: 09-12-2006 Hepatic function panel HEPATIC FUNCTION PANEL (27616) [facility] Work Phone: Start: 09-12-2006 Lipid panel LIPID PANEL (29300) [facility] Work Phone: MG Breast - bilatera l Screening [facility] MG Breast - bilatera l Screening [facility] MG Breast - bilatera l Screening [facility] Patient referral [facility] Work Phone: XR Foot 2 Views [facility] XR Tibia and Fibula 2 Views [facility] Work Phone: [facility] Work Phone: [facility] Work Phone: [facility] Work Phone: [facility] Work Phone: [facility] Work Phone: [facility] Work Phone: [facility] Work Phone: [facility] Work Phone: [facility] Work Phone: [facility] Work Phone: [facility] Work Phone: [facility] Work Phone: [facility] Work Phone: [facility] Work Phone: [facility] Work Phone: [facility] Work Phone: [facility] Work Phone: [facility] Work Phone: [facility] Work Phone: [facility] Work Phone: [facility] Work Phone: [facility] Work Phone[facility] Work Phone: [facility] Work Phone: [facility] Work Phone: [facility] Work Phone: [facility] Work Phone: [facility] Work Phone: [facility] Work Phone: [facility] Work Phone: [facility] Work Phone: [facility] Work Phone[facility] Work Phone: [facility] Work Phone: [facility] Work Phone: [facility] Work Phone: [facility] Work Phone: [facility] Work Phone: [facility] Work Phone: [facility] Work Phone: [facility] Work Phone: [facility] Work Phone: [facility] Work Phone: [facility] Work Phone: [facility] Work Phone: [facility] Work Phone: [facility] Work Phone: [facility] Work Phone: [facility] Work Phone: [facility] Work Phone: [facility] Work Phone: [facility] Work Phone: [facility] Work Phone: [facility] Work Phone: Immunizations Immunization Date Immunization Notes Care Provider [facility] 10-26-2020 Covid (Pfizer) [facility] 09-19-2020 Covid (Pfizer) [facility] 06-08-2020 Influenza virus vaccine [facility] 04-29-2018 influenza, seasonal, injectable Moira Ramsey [facility] [employer] [facility] Work Phone: Comment on above: BM Payers Date Payer Category Payer Self-pay [id number] 2016 [employer] ( [employer] others) [employer] [id number] 2016 [employer] ( and others) [id number] 2016 [employer] ( and others) [employer] [id number] 2015 Medicare [id number] Unknown Unknown [id number] 62 Unknown [id number] 62 Unknown [id number] 62 Unknown [id number] 62 Unknown [id number] 62 Unknown [id number] 62 Unknown [id number] 62 Unknown [id number] 62 Social History Date Type Detail Facility No Caffeine Use Never smoker [facility] Work Phone: Comment on above: never smoker Tobacco use: Never smoker. [facility] Work Phone: Start: 05-22-2021 End: 11-15-2022 Tobacco smoking status NHIS Unknown if ever smoked [facility] Start: 10-13-[address] [facility] Start: 10-13-[address] [facility] Start: 10-13-2020 Non-smoker [facility] Start: 1950 Sex Assigned At Female W [facility] Start: 07-12-2024 Tobacco smoking status NHIS Never smoked tobacco (finding) [facility] Medical Equipment Procedure Code Equipment Code Equipment Origin al Text Equipment Identifier Dates PATCH,AMNION 2X3CM FDA Start: 10-12-2020 PROBE,PH CAPSULE WITH DEL SYS FDA Start: 04-24-2021 PATCH,AMNION 2X3CM FDA Start: 10-12-2020 PROBE,PH CAPSULE WITH DEL SYS FDA Start: 04-24-2021 PATCH,AMNION 2X3CM FDA Start: 10-12-2020 PROBE,PH CAPSULE WITH DEL SYS FDA Start: 04-24-2021 PATCH,AMNION 2X3CM FDA Start: 10-12-2020 PROBE,PH CAPSULE WITH DEL SYS FDA Start: 04-24-2021 PATCH,AMNION 2X3CM FDA Start: 10-12-2020 PROBE,PH CAPSULE WITH DEL SYS FDA Start: 04-24-2021 PATCH,AMNION 2X3CM FDA Start: 10-12-2020 PROBE,PH CAPSULE WITH DEL SYS FDA Start: 04-24-2021 PATCH,AMNION 2X3CM FDA Start: 10-12-2020 PROBE,PH CAPSULE WITH DEL SYS FDA Start: 04-24-2021 PATCH,AMNION 2X3CM FDA Start: 10-12-2020 PROBE,PH CAPSULE WITH DEL SYS FDA Start: 04-24-2021 PATCH,AMNION 2X3CM FDA Start: 10-12-2020 PROBE,PH CAPSULE WITH DEL SYS FDA Start: 04-24-2021 PATCH,AMNION 2X3CM FDA Start: 10-12-2020 PROBE,PH CAPSULE WITH DEL SYS FDA Start: 04-24-2021 PATCH,AMNION 2X3CM FDA Start: 10-12-2020 PROBE,PH CAPSULE WITH DEL SYS FDA Start: 04-24-2021 PATCH,AMNION 2X3CM FDA Start: 10-12-2020 PROBE,PH CAPSULE WITH DEL SYS FDA Start: 04-24-2021 Mental Status Date Assessment Result Facility 03-11-2017 Cognitive function Mood Descript ion Appropriate;Calm;Relaxed [facility] Work Phone: Clinical Note 07-12-2024 Note Date & Type Note Facility 07-12-2024 Note [facility] Medical Records Department [address] [place] [address] History Physical Exam 07/12/24 0754 MR#: [id number] Acct: [id number] Name: MAYA CURRY Rep #: [id number] : 1950 74 From: Za Dhaliwal MD PCP: Dr. Maurilio Castillo MD Status:[facility] Location: [place] [address] HPI - General General Date of Service: 07/12/24 HPI Narrative MAYA CURRY, is a 74 F who presents for colonoscopy due to constipation. Patient has been taking MiraLAX daily and has been having bowel movements about every other day with this. Otherwise patient denies other changes since office visit. 06/02/24 office visit HPI HPI: 74-year-old female presents for colonoscopy due to diarrhea. Patient states she previous to February had chronic constipation. And then she was fluctuating between diarrhea and constipation. Patient was advised by her PCP to take MiraLAX daily patient has states that that has helped some days when it is already looser she is only taking half the dose of MiraLAX instead of the whole 17 g. Patient states that her stools currently are semiformed's occasionally not complete diarrhea. Patient's last colonoscopy was in [address] Ayala negative per patient, last EGD was in [address] Royal also negative per patient. Patient states in February she did have 1 episode of black stool however she did take Pepto-Bismol at that time. No further episodes. Patient does complain of bilateral lower quadrant/more suprapubic pain. [facility] Medical History Back pain Essential tremor Colitis Gastric reflux History of hiatal hernia History of irregular heartbeat External nasal lesion Screening for osteoporosis Depression Cancer Wears glasses Cancer Depression Anxiety Ambulates with cane High cholesterol Easy bruising History of renal disease Non-smoker History of pain when walking Hx of mitral valve prolapse History of stress test Premature atrial complex Mitral valve prolapse Hay fever Kidney disease Breast cancer Herniation of lumbar intervertebral disc Arthritis Nephrolithiasis Osteopenia Hypertension Heart disease GERD (gastroesophageal reflux disease) Anxiety Home Medications ???Medication ???Instructions ???Recorded ???Last Taken ???Type duloxetine 60 mg capsule,delayed 90 mg PO DAILY Antidepressant 09/09/20 Unknown History release omeprazole 40 mg-sodium 40 each PO DAILY 12/13/20 04/16/21 History bicarbonate 1.1 gram capsule polyethylene glycol 3350 17 gram 17 g PO DAILY 12/22/23 Unknown History oral powder packet (Miralax) calcium citrate 200 mg PO BID 02/16/24 Unknown History fexofenadine 60 mg tablet (Jessica 60 mg PO BID PRN ALLERGIES 02/16/24 Unknown History Allergy) camphor-menthol 0.2 %-3.5 % 1 applic topical DAILY PRN muscle 07/08/24 Unknown History topical gel (Arctic Relief) pain vibegron 75 mg tablet (Gemtesa) 75 mg PO DAILY 07/08/24 Unknown History Allergy/AdvReac Type Severity Reaction Status Date / Time Penicillins (PCN) Allergy Unknown Verified 07/12/24 08:04 amoxicillin trihydrate (From AdvReac Rash Verified 07/12/24 08:04 Amoxil) ciprofloxacin (From Cipro) AdvReac Nausea Verified 07/12/24 08:04 ciprofloxacin HCl (From AdvReac Nausea Verified 07/12/24 08:04 Cipro) Family History Mother Multiple myeloma Thyroid disorder Hypertension Hyperlipidemia Heart disease Diabetes Father Diabetes Surgical History Hx of colonoscopy History of esophagogastroduodenoscopy (EGD) History of discectomy History of laminectomy History of lithotripsy History of dilation and curettage History of tonsillectomy History of lumpectomy of right breast History of hysterectomy History of appendectomy Social History Smoking Status: Never smoker Past Medical/Surgical History Planned Operation Planned Operative Procedure(s): COLONOSCOPY S.O.S: No Previous Hospitalizations/Surgeries HX Hospitalizations: No HX of Surgeries: appendectomy hysterectomy lithotripsy lumpectomy tonsillectomy pain block in back 09/2020 laminectomy Any Problems With Anesthesia: Yes (N,V) You/Your Family Experience Fever (Hyperthermia) With Anes: No Cholinesterase deficiency: No Cardiovascular Hx Chest Pain within Last 2 months: No Hx of Irregular Heartbeat and/or Afib: No Hx Heart Attack: No Hx Congestive Heart Failure: No Hx Rheumatic Fever: No Hx Hypertension: Yes (not on medication now) Hx Pacemaker: No Hx Cardiac Catheterization: No Hx Cardiac Surgery/Stents/Etc.: No Hx Stress Test: Yes (approx 2009) Hx Pain in Legs when Walking/Leg Cramps: No Respiratory Chronic (more content not included)... [facility] Hospital Discharge instructions 07-13-2018 Note Date & Type Note Facility 07-13-2018 Hospital Discharge instructions Ambulatory OrdersDexa Bone Density Study Location: None SelectedIron+Iron Binding Capacity Location: LaboratoryReturn to Office Location: None SelectedSCREENING MAMM (CAD), BILAT Time Frame: 07/13/18, Location: None SelectedSCREENING MAMM (CAD), BILAT [HPBI] Time Frame: 1 Year, Location: None [facility] Work Phone: Evaluation note Note Date & Type Note Facility Evaluation note No assessment information availa ble [facility] Work Phone: Evaluation note Note Date & Type Note Facility Evaluation note Diagnosis Onset Date History of right breast cancer chronic [facility] Work Phone: Evaluation note Note Date & Type Note Facility Evaluation note Diagnosis Onset Date Low back pain acute [facility] Work Phone: Evaluation note Note Date & Type Note Facility Evaluation note Diagnosis Onset Date Low back pain acute Lumbosacral radiculopathy at L3 acute [facility] Work Phone: Evaluation note Note Date & Type Note Facility Evaluation note Diagnosis Onset Date Lumbosacral radiculopathy at L3 acute Lumbosacral radiculopathy at L3 acute History of right breast cancer chronic Osteopenia chronic Anemia resolved Breast cancer, right breast resolved [facility] Work Phone: Evaluation note Note Date & Type Note Facility Evaluation note Diagnosis Onset Date Lumbosacral radiculopathy at L3 acute History of right breast cancer chronic Osteopenia chronic Anemia resolved Breast cancer, right breast resolved [facility] Work Phone: Reason for referral (narrative) Note Date & Type Note Facility Reason for referral (narrative) No reason for referral information available [facility] Work Phone: Family History No Family History Records FoundUnknown Family Member Name Dates Details Father Comments: in 30's from f arm accident but had diabetes Status:Active Mother Comments:Osteoporosis Status:Active Unknown Family Member Name Dates Details Father Comments: in 30's from f arm accident but had diabetes Status:Active Mother Comments:Osteoporosis Status:Active Unknown Family Member Name Dates Details Father Comments: in 30's from f arm accident but had diabetes Status:Active Mother Comments:Osteoporosis Status:Active Relationship Condition Age at Onset Recorded Date/T nikolay mother Multiple myeloma Unknown Disorder of thyroid Unknown Hypertension Unknown Hyperlipidemia Unknown Cardiac disease Unknown Diabetes mellitus Unknown father Diabetes mellitus Unknown Instructions Name Dates Details Nonsmoker : How to access he alth information online Indication:Nonsmoker Nonsmoker : How to access he alth information online - Detail Indication:Nonsmoker Nonsmoker : Patient Instruct ions Indication:Nonsmoker Benign essential hypertensio n : How to access health information online Indication:Benign essential hypertension Benign essential hypertensio n : How to access health information online - Detail Indication:Benign essential hypertension Benign essential hypertensio n : Patient Instructions Indication:Benign essential hypertension Body mass index 29.0-29.9, a dult : How to access health information online Indication:Body mass index 29.0-29.9, adult Body mass index 29.0-29.9, a dult : How to access health information online - Detail Indication:Body mass index 29.0-29.9, adult Right foot pain : Patient In structions Indication:Right foot pain BMI 28.0-28.9,adult : How to access health information online Indication:BMI 28.0-28.9,adult BMI 28.0-28.9,adult : How to access health information online - Detail Indication:BMI 28.0-28.9,adult BMI 28.0-28.9,adult : Patien t Instructions Indication:BMI 28.0-28.9,adult Bloody stool : How to access health information online Indication:Bloody stool Bloody stool : How to access health information online - Detail Indication:Bloody stool Bloody stool : Patient Instr uctions Indication:Bloody stool Body mass index 29.0-29.9, a dult : Patient Instructions Indication:Body mass index 29.0-29.9, adult Vitamin D deficiency, unspec ified : How to access health information online Indication:Vitamin D deficiency, unspecified Vitamin D deficiency, unspec ified : How to access health information online - Detail Indication:Vitamin D deficiency, unspecified Vitamin D deficiency, unspec ified : Patient Instructions Indication:Vitamin D deficiency, unspecified Postmenopausal (Renamed from Postmenopausal status) : Patient Instructions Indication:Postmenopausal (Renamed from Postmenopausal status) Dizzy : How to access health information online - Detail Indication:Dizzy Dizzy : How to access health information online Indication:Dizzy Dizzy : Patient Instructions Indication:Dizzy Other and unspecified hyperl ipidemia : How to access health information online Indication:Other and unspecified hyperlipidemia Other and unspecified hyperl ipidemia : How to access health information online - Detail Indication:Other and unspecified hyperlipidemia Other and unspecified hyperl ipidemia : Patient Instructions Indication:Other and unspecified hyperlipidemia Anxiety : How to access heal th information online Indication:Anxiety Anxiety : How to access heal th information online - Detail Indication:Anxiety Anxiety : Patient Instructio ns Indication:Anxiety Encounter for Medicare annua l wellness exam : How to access health information online Indication:Encounter for Medicare annual wellness exam Encounter for Medicare annua l wellness exam : How to access health information online - Detail Indication:Encounter for Medicare annual wellness exam Encounter for Medicare annua l wellness exam : Patient Instructions Indication:Encounter for Medicare annual wellness exam ACUTE PHARYNGITIS (462.) : H ow to access health information online Indication:ACUTE PHARYNGITIS (462.) ACUTE PHARYNGITIS (462.) : H ow to access health information online - Detail Indication:ACUTE PHARYNGITIS (462.) ACUTE PHARYNGITIS (462.) : P atient Instructions Indication:ACUTE PHARYNGITIS (462.) Gastroesophageal reflux dise ase without esophagitis : How to access health information online Indication:Gastroesophageal reflux disease without esophagitis Gastroesophageal reflux dise ase without esophagitis : How to access health information online - Detail Indication:Gastroesophageal reflux disease without esophagitis Low back pain potentially as sociated with radiculopathy : How to access health information online Indication:Low back pain potentially associated with radiculopathy Low back pain potentially as sociated with radiculopathy : How to access health information online - Detail Indication:Low back pain potentially associated with radiculopathy Low back pain potentially as sociated with radiculopathy : Patient Instructions Indication:Low back pain potentially associated with radiculopathy Mitral valve prolapse : Liudmila ent Instructions Indication:Mitral valve prolapse Limb pain : Patient Instruct ions Indication:Limb pain Gastroesophageal reflux dise ase without esophagitis : Patient Instructions Indication:Gastroesophageal reflux disease without esophagitis Name Dates Details Nonsmoker : How to access he alth information online Indication:Nonsmoker Nonsmoker : How to access he alth information online - Detail Indication:Nonsmoker Nonsmoker : Patient Instruct ions Indication:Nonsmoker Benign essential hypertensio n : How to access health information online Indication:Benign essential hypertension Benign essential hypertensio n : How to access health information online - Detail Indication:Benign essential hypertension Benign essential hypertensio n : Patient Instructions Indication:Benign essential hypertension Body mass index 29.0-29.9, a dult : How to access health information online Indication:Body mass index 29.0-29.9, adult Body mass index 29.0-29.9, a dult : How to access health information online - Detail Indication:Body mass index 29.0-29.9, adult Right foot pain : Patient In structions Indication:Right foot pain BMI 28.0-28.9,adult : How to access health information online Indication:BMI 28.0-28.9,adult BMI 28.0-28.9,adult : How to access health information online - Detail Indication:BMI 28.0-28.9,adult BMI 28.0-28.9,adult : Patien t Instructions Indication:BMI 28.0-28.9,adult Bloody stool : How to access health information online Indication:Bloody stool Bloody stool : How to access health information online - Detail Indication:Bloody stool Bloody stool : Patient Instr uctions Indication:Bloody stool Body mass index 29.0-29.9, a dult : Patient Instructions Indication:Body mass index 29.0-29.9, adult Vitamin D deficiency, unspec ified : How to access health information online Indication:Vitamin D deficiency, unspecified Vitamin D deficiency, unspec ified : How to access health information online - Detail Indication:Vitamin D deficiency, unspecified Vitamin D deficiency, unspec ified : Patient Instructions Indication:Vitamin D deficiency, unspecified Postmenopausal (Renamed from Postmenopausal status) : Patient Instructions Indication:Postmenopausal (Renamed from Postmenopausal status) Dizzy : How to access health information online - Detail Indication:Dizzy Dizzy : How to access health information online Indication:Dizzy Dizzy : Patient Instructions Indication:Dizzy Other and unspecified hyperl ipidemia : How to access health information online Indication:Other and unspecified hyperlipidemia Other and unspecified hyperl ipidemia : How to access health information online - Detail Indication:Other and unspecified hyperlipidemia Other and unspecified hyperl ipidemia : Patient Instructions Indication:Other and unspecified hyperlipidemia Anxiety : How to access heal th information online Indication:Anxiety Anxiety : How to access heal th information online - Detail Indication:Anxiety Anxiety : Patient Instructio ns Indication:Anxiety Encounter for Medicare annua wellness exam : How to access health information online Indication:Encounter for Medicare annual wellness exam Encounter for Medicare annua l wellness exam : How to access health information online - Detail Indication:Encounter for Medicare annual wellness exam Encounter for Medicare annua l wellness exam : Patient Instructions Indication:Encounter for Medicare annual wellness exam ACUTE PHARYNGITIS (462.) : H ow to access health information online Indication:ACUTE PHARYNGITIS (462.) ACUTE PHARYNGITIS (462.) : H ow to access health information online - Detail Indication:ACUTE PHARYNGITIS (462.) ACUTE PHARYNGITIS (462.) : P atient Instructions Indication:ACUTE PHARYNGITIS (462.) Gastroesophageal reflux dise ase without esophagitis : How to access health information online Indication:Gastroesophageal reflux disease without esophagitis Gastroesophageal reflux dise ase without esophagitis : How to access health information online - Detail Indication:Gastroesophageal reflux disease without esophagitis Low back pain potentially as sociated with radiculopathy : How to access health information online Indication:Low back pain potentially associated with radiculopathy Low back pain potentially as sociated with radiculopathy : How to access health information online - Detail Indication:Low back pain potentially associated with radiculopathy Low back pain potentially as sociated with radiculopathy : Patient Instructions Indication:Low back pain potentially associated with radiculopathy Mitral valve prolapse : Liudmila ent Instructions Indication:Mitral valve prolapse Limb pain : Patient Instruct ions Indication:Limb pain Gastroesophageal reflux dise ase without esophagitis : Patient Instructions Indication:Gastroesophageal reflux disease without esophagitis Name Dates Details How to access health informa tion online Indication:Nonsmoker Start:02-Jul-2018 Instruction Type:Patient Education How to access health informa tion online - Detail Indication:Nonsmoker Start:02-Jul-2018 Instruction Type:Patient Education How to access health informa tion online Indication:Nonsmoker Start:21-May-2018 Instruction Type:Patient Education How to access health informa tion online - Detail Indication:Nonsmoker Start:21-May-2018 Instruction Type:Patient Education Patient Instructions Indication:Nonsmoker Start:21-May-2018 Instruction Type:Provider Instructions for Treatment How to access health informa tion online Indication:Nonsmoker Start:19-Mar-2018 Instruction Type:Patient Education How to access health informa tion online - Detail Indication:Nonsmoker Start:19-Mar-2018 Instruction Type:Patient Education Patient Instructions Indication:Nonsmoker Start:19-Mar-2018 Instruction Type:Provider Instructions for Treatment How to access health informa tion online Indication:Nonsmoker Start:15-Jan-2018 Instruction Type:Patient Education How to access health informa tion online - Detail Indication:Nonsmoker Start:15-Jan-2018 Instruction Type:Patient Education Patient Instructions Indication:Nonsmoker Start:15-Jan-2018 Instruction Type:Provider Instructions for Treatment How to access health informa tion online Indication:Benign essential hypertension Start:03-Dec-2017 Instruction Type:Patient Education How to access health informa tion online - Detail Indication:Benign essential hypertension Start:03-Dec-2017 Instruction Type:Patient Education Patient Instructions Indication:Benign essential hypertension Start:03-Dec-2017 Instruction Type:Provider Instructions for Treatment How to access health informa tion online Indication:Nonsmoker Start:19-Nov-2017 Instruction Type:Patient Education How to access health informa tion online - Detail Indication:Nonsmoker Start:19-Nov-2017 Instruction Type:Patient Education Patient Instructions Indication:Nonsmoker Start:19-Nov-2017 Instruction Type:Provider Instructions for Treatment How to access health informa tion online Indication:Body mass index 29.0-29.9, adult Start:14-Oct-2017 Instruction Type:Patient Education How to access health informa tion online - Detail Indication:Body mass index 29.0-29.9, adult Start:14-Oct-2017 Instruction Type:Patient Education Patient Instructions Indication:Right foot pain Start:14-Oct-2017 Instruction Type:Provider Instructions for Treatment How to access health informa tion online Indication:BMI 28.0-28.9,adult Start:24-Sep-2017 Instruction Type:Patient Education How to access health informa tion online - Detail Indication:BMI 28.0-28.9,adult Start:24-Sep-2017 Instruction Type:Patient Education Patient Instructions Indication:BMI 28.0-28.9,adult Start:24-Sep-2017 Instruction Type:Provider Instructions for Treatment How to access health informa tion online Indication:Benign essential hypertension Start:21-May-2017 Instruction Type:Patient Education How to access health informa tion online - Detail Indication:Benign essential hypertension Start:21-May-2017 Instruction Type:Patient Education How to access health informa tion online Indication:Nonsmoker Start:24-Mar-2017 Instruction Type:Patient Education How to access health informa tion online - Detail Indication:Nonsmoker Start:24-Mar-2017 Instruction Type:Patient Education Patient Instructions Indication:Nonsmoker Start:24-Mar-2017 Instruction Type:Provider Instructions for Treatment How to access health informa tion online Indication:Bloody stool Start:07-Jan-2017 Instruction Type:Patient Education How to access health informa tion online - Detail Indication:Bloody stool Start:07-Jan-2017 Instruction Type:Patient Education Patient Instructions Indication:Bloody stool Start:07-Jan-2017 Instruction Type:Provider Instructions for Treatment How to access health informa tion online Indication:BMI 28.0-28.9,adult Start:20-Nov-2016 Instruction Type:Patient Education How to access health informa tion online - Detail Indication:BMI 28.0-28.9,adult Start:20-Nov-2016 Instruction Type:Patient Education Patient Instructions Indication:BMI 28.0-28.9,adult Start:20-Nov-2016 Instruction Type:Provider Instructions for Treatment How to access health informa tion online Indication:Body mass index 29.0-29.9, adult Start:30-Oct-2016 Instruction Type:Patient Education How to access health informa tion online - Detail Indication:Body mass index 29.0-29.9, adult Start:30-Oct-2016 Instruction Type:Patient Education Patient Instructions Indication:Body mass index 29.0-29.9, adult Start:30-Oct-2016 Instruction Type:Provider Instructions for Treatment How to access health informa tion online Indication:Vitamin D deficiency, unspecified Start:29-Aug-2016 Instruction Type:Patient Education How to access health informa tion online - Detail Indication:Vitamin D deficiency, unspecified Start:29-Aug-2016 Instruction Type:Patient Education Patient Instructions Indication:Vitamin D deficiency, unspecified Start:29-Aug-2016 Instruction Type:Provider Instructions for Treatment Patient Instructions Indication:Postmenopausal (Renamed from Postmenopausal status) Start:16-May-2016 Instruction Type:Provider Instructions for Treatment Patient Instructions Indication:Benign essential hypertension Start:21-Feb-2016 Instruction Type:Provider Instructions for Treatment How to access health informa tion online Indication:Benign essential hypertension Start:21-Feb-2016 Instruction Type:Patient Education How to access health informa tion online - Detail Indication:Benign essential hypertension Start:21-Feb-2016 Instruction Type:Patient Education How to access health informa tion online - Detail Indication:Dizzy Start:05-Feb-2016 Instruction Type:Patient Education How to access health informa tion online Indication:Dizzy Start:05-Feb-2016 Instruction Type:Patient Education Patient Instructions Indication:Dizzy Start:05-Feb-2016 Instruction Type:Provider Instructions for Treatment How to access health informa tion online Indication:Other and unspecified hyperlipidemia Start:21-Nov-2015 Instruction Type:Patient Education How to access health informa tion online - Detail Indication:Other and unspecified hyperlipidemia Start:21-Nov-2015 Instruction Type:Patient Education Patient Instructions Indication:Other and unspecified hyperlipidemia Start:21-Nov-2015 Instruction Type:Provider Instructions for Treatment How to access health informa tion online Indication:Anxiety Start:03-Oct-2015 Instruction Type:Patient Education How to access health informa tion online - Detail Indication:Anxiety Start:03-Oct-2015 Instruction Type:Patient Education Patient Instructions Indication:Anxiety Start:03-Oct-2015 Instruction Type:Provider Instructions for Treatment How to access health informa tion online Indication:Anxiety Start:28-Aug-2015 Instruction Type:Patient Education How to access health informa tion online - Detail Indication:Anxiety Start:28-Aug-2015 Instruction Type:Patient Education Patient Instructions Indication:Anxiety Start:28-Aug-2015 Instruction Type:Provider Instructions for Treatment How to access health informa tion online Indication:Other and unspecified hyperlipidemia Start:18-Jul-2015 Instruction Type:Patient Education How to access health informa tion online - Detail Indication:Other and unspecified hyperlipidemia Start:18-Jul-2015 Instruction Type:Patient Education Patient Instructions Indication:Other and unspecified hyperlipidemia Start:18-Jul-2015 Instruction Type:Provider Instructions for Treatment How to access health informa tion online Indication:Encounter for Medicare annual wellness exam Start:12-May-2015 Instruction Type:Patient Education How to access health informa tion online - Detail Indication:Encounter for Medicare annual wellness exam Start:12-May-2015 Instruction Type:Patient Education Patient Instructions Indication:Encounter for Medicare annual wellness exam Start:12-May-2015 Instruction Type:Provider Instructions for Treatment How to access health informa tion online Indication:Other and unspecified hyperlipidemia Start:20-Mar-2015 Instruction Type:Patient Education How to access health informa tion online - Detail Indication:Other and unspecified hyperlipidemia Start:20-Mar-2015 Instruction Type:Patient Education Patient Instructions Indication:Other and unspecified hyperlipidemia Start:20-Mar-2015 Instruction Type:Provider Instructions for Treatment Patient Instructions Indication:Benign essential hypertension Start:14-Nov-2014 Instruction Type:Provider Instructions for Treatment How to access health informa tion online Indication:ACUTE PHARYNGITIS (462.) Start:03-Nov-2014 Instruction Type:Patient Education How to access health informa tion online - Detail Indication:ACUTE PHARYNGITIS (462.) Start:03-Nov-2014 Instruction Type:Patient Education Patient Instructions Indication:ACUTE PHARYNGITIS (462.) Start:03-Nov-2014 Instruction Type:Provider Instructions for Treatment How to access health informa tion online Indication:Gastroesophageal reflux disease without esophagitis Start:18-Jul-2014 Instruction Type:Patient Education How to access health informa tion online - Detail Indication:Gastroesophageal reflux disease without esophagitis Start:18-Jul-2014 Instruction Type:Patient Education Patient Instructions Indication:Benign essential hypertension Start:18-Jul-2014 Instruction Type:Provider Instructions for Treatment How to access health informa tion online Indication:Low back pain potentially associated with radiculopathy Start:13-Apr-2014 Instruction Type:Patient Education How to access health informa tion online - Detail Indication:Low back pain potentially associated with radiculopathy Start:13-Apr-2014 Instruction Type:Patient Education Patient Instructions Indication:Low back pain potentially associated with radiculopathy Start:13-Apr-2014 Instruction Type:Provider Instructions for Treatment How to access health informa tion online Indication:Low back pain potentially associated with radiculopathy Start:04-Apr-2014 Instruction Type:Patient Education How to access health informa tion online - Detail Indication:Low back pain potentially associated with radiculopathy Start:04-Apr-2014 Instruction Type:Patient Education Patient Instructions Indication:Low back pain potentially associated with radiculopathy Start:04-Apr-2014 Instruction Type:Provider Instructions for Treatment How to access health informa tion online Indication:Other and unspecified hyperlipidemia Start:15-Mar-2014 Instruction Type:Patient Education How to access health informa tion online - Detail Indication:Other and unspecified hyperlipidemia Start:15-Mar-2014 Instruction Type:Patient Education Patient Instructions Indication:Mitral valve prolapse Start:15-Mar-2014 Instruction Type:Provider Instructions for Treatment Patient Instructions Indication:Limb pain Start:27-Dec-2013 Instruction Type:Provider Instructions for Treatment Patient Instructions Indication:Benign essential hypertension Start:02-Nov-2013 Instruction Type:Provider Instructions for Treatment Patient Instructions Indication:Benign essential hypertension Start:29-Oct-2013 Instruction Type:Provider Instructions for Treatment Patient Instructions Indication:Benign essential hypertension Start:02-Jul-2013 Instruction Type:Provider Instructions for Treatment Patient Instructions Indication:Benign essential hypertension Start:30-Mar-2013 Instruction Type:Provider Instructions for Treatment Patient Instructions Indication:Other and unspecified hyperlipidemia Start:29-Dec-2012 Instruction Type:Provider Instructions for Treatment Patient Instructions Indication:Gastroesophageal reflux disease without esophagitis Start:05-Oct-2012 Instruction Type:Provider Instructions for Treatment Patient Instructions Indication:Low back pain potentially associated with radiculopathy Start:15-Sep-2012 Instruction Type:Provider Instructions for Treatment Patient Instructions Indication:Benign essential hypertension Start:08-Jul-2012 Instruction Type:Provider Instructions for Treatment Patient Instructions Indication:ACUTE PHARYNGITIS (462.) Start:08-May-2012 Instruction Type:Provider Instructions for Treatment Advance Directives No Advanced Directives Records Found Name Dates Details Immunization Registry [place] - Effective on 05/21/2018. Expiration date unspecified Effective:21-May-2018 Name Dates Details Immunization Registry [place] - Effective on 05/21/2018. Expiration date unspecified Effective:21-May-2018 Name Dates Details Immunization Registry [place] - Effective on 05/21/2018. Expiration date unspecified Effective:21-May-2018 Advance Directive Response Recorded Date/ Time Advance Directives Yes September 12, 2016 3:33pm Living Will Yes May 22, 2021 11:26am Power of Building Maintenance Engineer Yes April 11:26am Advance Directive Response Recorded Date/ Time Advance Directives Yes September 12, 2016 2:33pm Living Will Yes May 22, 2021 10:26am Power of Building Maintenance Engineer Yes April 10:26am Advance Directive Response Recorded Date/ Time Advance Directives Yes September 12, 2016 3:33pm Chief Complaint and Reason for Visit Chief Complaint SCREENING 1YR LABS REVIEW MAMMO Reason for Visit History of right [place] ast cancer Chief Complaint SCREENING 1YR LABS REVIEW MAMMO E ORDER Reason for Visit History of right [place] ast cancer Chief Complaint E ORDER LESION REMOVAL R MEDIAL CANTHUS Chief Complaint Lumbar spine Room 2 LUMBAR PAIN Reason for Visit Low back pain Chief Complaint Lumbar spine Room 2 LUMBAR PAIN Lumbar Reason for Visit Low back pain Lumbosacral radiculopathy at L3 Chief Complaint LUMBAR PAIN Lumbar LUMBER SPINE SCREENING 1YR LABS REVIEW MAMMO ONC/HEM Reason for Visit Lumbosacral radiculo jess at L3 Lumbosacral radiculopathy at L3 History of right breast cancer Osteopenia Anemia Breast cancer, right breast Chief Complaint LUMBER SPINE SCREENING 1YR LABS REVIEW MAMMO ONC/HEM Reason for Visit Lumbosacral radiculo jess at L3 History of right breast cancer Osteopenia Anemia Breast cancer, right breast Chief Complaint SCREENING Chief Complaint Admit Date [facility] FLO[facility] PT HAS RX October 05 12:00pm EORDERS October 06, 2024 1:30pm SCREENIGN December 21, 2024 1:0 9pm Chief Complaint Admit Date SCREENIGN December 21, 2024 1:0 9pm Summary Purpose Additional Source Comments Goals (unrecognized section and content) Goals may be documented in a n alternate sectionGoals may be documented in an alternate sectionGoals may be documented in an alternate sectionGoals may be documented in an alternate sectionGoals may be documented in an alternate sectionGoals may be documented in an alternate sectionGoals may be documented in an alternate sectionGoals may be documented in an alternate sectionGoals may be documented in an alternate sectionGoals may be documented in an alternate sectionGoals may be documented in an alternate sectionGoals may be documented in an alternate section Care Teams (unrecognized sec tion and content) Team Status: Active Member Role Status Dates Dr. Moira Ramsey DO Family Provider Active Dr. Maurilio Castillo MD Primary Care Provider Active Team Status: Inactive Member Role Status Dates Dr. Maurilio Castillo MD Primary Care Provider, Referr ing Provider Active Dr. Hawk Yeboah DO Attending Provider Active Team Status: Inactive Member Role Status Dates Dr. Maurilio Castillo MD Primary Care Provider Active Dr. Nicho Cabezas MD Attending Provider Active Team Status: Inactive Member Role Status Dates Dr. Maurilio Castillo MD Primary Care Pr ovider, Attending Provider, Referring Provider Active Team Status: Inactive Member Role Status Dates Dr. Maurilio Castillo MD Primary Care Provider Active Dr. Hawk Yeboah DO Attending Provider, Referring P rovider Active Team Status: Inactive Member Role Status Dates Dr. Maurilio Castillo MD Primary Care Provider, Referr ing Provider Active Dr. Giovanni Peralta MD Attending Provider Active Team Status: Active Member Role Status Dates Dr. Moira Ramsey DO Family Provider Active Dr. Giovanni Peralta MD Attending Provider Active Dr. Maurilio Castillo MD Primary Care Provider, Referr ing Provider Active Team Status: Inactive Member Role Status Dates Dr. Maurilio Castillo MD Primary Care Provider Active Dr. Giovanni Peralta MD Attending Provider, Referring Pro vider Active Team Status: Inactive Member Role Status Dates Dr. Maurilio Castillo MD Primary Care Provider, Attend ing Provider Active Team Status: Active Member Role Status Dates Dr. Maurilio Castillo MD Primary Care Provider Active Team Status: Inactive Member Role Status Dates Dr. Maurilio Castillo MD Primary Care Provider Active Start: October 05, 2024 End: October 05, 2024 Dr. Irina Lake MD Attending Provider Active Start: October 05, 2024 End: October 05, 2024 Dr. Irina Lake MD Referring Provider Active Start: October 05, 2024 End: October 05, 2024 Team Status: Inactive Member Role Status Dates Dr. Maurilio Castillo MD Primary Care Provider Active Start: October 06, 2024 End: October 06, 2024 Dr. Maurilio Castillo MD Attending Provider Active Start: October 06, 2024 End: October 06, 2024 Dr. Maurilio Castillo MD Referring Provider Active Start: October 06, 2024 End: October 06, 2024 Team Status: Inactive Member Role Status Dates Dr. Maurilio Castillo MD Primary Care Provider Active Start: December 21, 2024 End: December 21, 2024 Dr. Maurilio Castillo MD Attending Provider Active Start: December 21, 2024 End: December 21, 2024 Dr. Maurilio Castillo MD Referring Provider Active Start: December 21, 2024 End: December 21, 2024 Team Status: Inactive Member Role Status Dates Dr. Maurilio Castillo MD Primary Care Provider Active Start: February 01, 2025 End: February 01, 2025 Dr. Maurilio Castillo MD Attending Provider Active Start: February 01, 2025 End: February 01, 2025 Dr. Maurilio Castillo MD Referring Provider Active Start: February 01, 2025 End: February 01, 2025 INFORMATION SOURCE (unrecogn ized section and content) DATE CREATED AUTHOR 06/26/2025 [facility] FOR RECORDS PERTAINING TO PATIENTS WHO ARE OR HAVE BEEN ENROLLED IN A CHEMICAL DEPENDENCY/SUBSTANCEABUSE PROGRAM, SOME INFORMATION MAY BE OMITTED. This clinical summary was aggregated from multiple sources. Caution should be exercised in using it in the provision of clinical care. This summary normalizes information from multiple sources, and as a consequence, information in this document may materially change the coding, format and clinical context of patient data. In addition, data may be omitted in some cases. CLINICAL DECISIONS SHOULD BE BASED ON THE PRIMARY CLINICAL RECORDS. [employer] provides no warranty or guarantee of the accuracy or completeness of information in this document.
[2025-08-13 09:20] LABS: Mucous, Urine 0 SEEN /hpf (<or=2+); Red Blood Cells-Urine 0 SEEN /hpf (0-5)
[2025-08-13 09:25] LABS: Color, Urine Yellow (Yellow); Glucose, Dipstick Normal (Normal); Ketone-Dipstick Negative (Negative); Leukocyte Esterase-Dipstick Negative /ul (Negative); Nitrite-Dipstick Negative (Negative); Occult Blood-Urine Negative /ul (Negative); Protein-Dipstick 15 mg/dl (Negative); Specific Gravity, Urine 1.020 (1.002-1.030); Urine Bilirubin Dipstick Negative (Negative)
[2025-08-13 09:40] LABS: Squamous Epithelial Cells - UA 0-5 SEEN /hpf (5-10)
[2025-08-13 10:30] LABS: Creatinine, Urine (random) 183.00 mg/dL (28.00-217.00); Protein, Urine (Random) 19.0 mg/dL (0.0-12.0); Protein:Creat Ratio 104 mg/g CRE (0-200)
== END | disposition home or self-care (01) ==
LOC: LABSPEC 09:14
PROVIDERS: PCP Family Medicine; Referring Provider Family Medicine; Visit Provider Family Medicine
DX: N18.30 Chronic kidney disease, stage 3 unspecified (principal)
CPT/HCPCS: 81001; 82570; 84156; 87086; 87088

== ENCOUNTER → 2025-08-19 | Outpatient (CLI) | payer MEDICARE, OTHER, SELFPAY ==
--- OUTSIDE RECORDS SUMMARY | 2025-08-19 07:53 | XMS RPT_ITS | CCD ---
Author Organization [facility] Care Team Providers Care Sheet Sewer Name Role Phone Moira Ramsey Unavailable Stephanie Abreu Unavailable Igor Hoang Unavailable Raphael Ayala Unavailable Charu Moran Unavailable Nina Tam Unavailable [facility], [facility] Unavailable Isabella Ortiz Unavailable Unavailable Maddie Vasquez Unavailable Unavailable Zee Valderrama Unavailable Unavailable Unavailable Unavailable Dr. Maurilio Castillo Primary Care Provider [phone] Dr. Maurilio Castillo Referring Provider [phone] Giovanni Peralta Attending Provider Dr. Maurilio Castillo Primary Care Provider 1([facility] )[phone] Dr. Maurilio Castillo Referring Provider 1([facility])[phone] Hawk Yeboah Attending Provider [phone] Nicho Cabezas Attending Provider Dr. Maurilio Castillo Primary Care Provider [phone] Dr. Maurilio Castillo Referring Provider Dr. Hawk Yeboah Attending Provider Dr. Giovanni Peralta Attending Provider Dr. Maurilio Castillo Primary Care Provider 1([facility] )[phone] Dr. Maurilio Castillo Referring Provider Dr. Hawk Yeboah Attending Provider [phone] Jonathan ROCHA, Dr. Maurilio Light Primary Care Provider [phone] Jaya ROCHA, Dr. Arevalo Attending Provider Jaya ROCHA, Dr. Arevalo Referring Provider Jonathan ROCHA, Dr. Maurilio Light Attending Provider Jonathan ROCHA, Dr. Maurilio Light Referring Provider Jonathan ROCHA, Dr. Maurilio Light Primary Care Provider Jonathan ROCHA, Dr. Maurilio Light Attending Provider Jonathan ROCHA, Dr. Maurilio Light Referring Provider [phone] Maurilio Castillo Attending Unavailable Maurilio Castillo Referring [...] Translations: [amoxicillin trihydrate] Drug Allergy 1 Rash [facility] (13 sources) Ciprofloxacin; Translations: [ciprofloxacin HCl] Drug Allergy 1 Nausea [facility] (13 sources) Penicillins; Translations: [Penicillins] Allergy to substance 1 Unknown [facility] (1 source) Ciprofloxacin Drug Allergy 5 [facility] Repository Medications Current Medications Medication Drug Class(es) Dates Sig (Normalized) Sig (Original) Calcium (13 sources) Phosphate Binder, Calcium Start: 12-13-2020 Calcium Crb,Aur-D6-Ciq00-Ge nis Active 2 EACH PO TWICE A DAY December 13, 2020 9:20am Start: 12-13-2020 Calcium Crb,Ci [id number]-[id number]-Rrztx Active 2 EACH PO TWICE A DAY December 12, 2020 11:00pm Start: 12-13-2020 Calcium Crb,Ci s-C9-[id number]-Rcpxq Active 2 EACH PO TWICE A DAY [...] 5:08pm Start: 08-26-2018 take 1 capsule by [facility] once daily DULoxetine HCl 60 MG Oral Capsule Delayed Release Particles 1 (one) Capsule qd for 90 days Quantity: 90 {Capsule} Refills: 3 Ordered: 26-Aug-2018 Moira Ramsey DO, DO, Kathleen Start : 26-Aug-2018 Active Comments: Mail order. Start: 07-02-2018 take 1 capsule by [facility] once daily DULoxetine HCl 60 MG [...] Start: 08-24-2018 take 1 capsule by mo [facility] once daily Zegerid 40-1100 MG Oral [...] with Bicarb in it polyethylene glycol 3350 10607 mg powder for oral solution (17 sources) [...] (16.2 MG) End : 08-Jan-2011 Discontinued Comments: Jamie Comment on above: Jamie bifidobacterium infantis 4 [...] tablets by mouth once daily CITRACAL/VITAMIN D, [id number] (Oral Tablet) 2 tabs qd for 0 days Refills: 0 Ordered: 07-Mar-2010 Jenn Giron Active Calcium Crb,Hgk-W6-Lan79-Gen is 1 EACH tablet (2 sources) Start: 12-13-2020 End: 02-16-2024 take 1 tablet by mouth twice daily Calcium Crb,Rin-Q5-Ayv38-Ge nis 1 EACH tablet Discontinued 2 NMA [...] Discontinued docusate sodium 50 mg / sennosides, fpc 8.6 mg oral tablet (20 sources) Start: [...] 2020 7:59pm October 13, 2020 12:17pm ergocalciferol 88095 unt oral capsule (3 sources) Provitamin D2 Compound Start: 01-18-2009 End: 03-20-2011 take 1 capsule by mouth two times weekly ERGOCALCIFEROL, [id number] (Oral Capsule) 1 (one) Capsule BIW for [...] {Tablet} Refills: 3 Ordered: 23-Dec-2011 Fast Phyllis AOCSTA Start : 23-Dec-2011 End : 23-Dec-2011 Discontinued [...] inulin 200 mg / lactobacillus rhamnosus gg [id number] unt oral capsule (3 sources) take 1 [...] lb family eye rx Comment on above: lb family eye r x ondansetron 4 mg [...] above: cant wear support [facility] in [facility] suspect vertigo with vaso vagal [...] got better so fast with gatorade and bar so will monitor Other gastrointestinal disorders (6 [...] Comment on above: cnat do nsaids with stomach issues-- uses tylenol prn Other non-traumatic joint disorders [...] Visit Repor ton 06-24-2025 Gastroenterology Visit Report [facility] [address] [place] [address] OFFICE VISIT Date of Service: 06/24/25 MR#: [id number] Acct: [id number] Name: MAYA CURRY Rep #: [id number] : 1950 Provider: MAGDI Nicolas Age/Sex: 75/F Location: [facility] [place].[facility] Status: Signed Intake Vital Signs 07/12/24 08:08 [...] No fatig (more content not included)... Normal [facility] CBC W/Diff, Automatedon 10-0 -2024 Absolute Lymph 1.19 X10 3/uL Normal 0.83-4.51 [facility] Comment on above: Order Comment: Order Date: 10/06/24 Order Info: 018- - CBCD Performed By: #### L 506.1000, L509.1000, L500.4100, L100.0100, L500.4050 #### [facility] [address] [place], [address] Absolute Neut 2.2 X10 3/uL Normal 2.0-7.7 [facility] Comment on above: Order Comment: Order Date: 10/06/24 Order Info: 01811-23 - CBCD Performed By: #### L 506.1000, L509.1000, L500.4100, L100.0100, L500.4050 #### [facility] [address] [place], [address] Basophils/100 WBC (Bld) 1.2 % High 0-1 [facility] Comment on above: Order Comment: Order Date: 10/06/24 Order Info: 01811-23 - CBCD Performed By: #### L 506.1000, L509.1000, L500.4100, L100.0100, L500.4050 #### [facility] [address] [place], [address] Eosinophils/100 WBC (Bld) 3.0 % Normal 0-5 [facility] Comment on above: Order Comment: Order Date: 10/06/24 Order Info: 018- - CBCD Performed By: #### L 506.1000, L509.1000, L500.4100, L100.0100, L500.4050 #### [facility] [address] [place], [address] Erythrocyte distribution width (RBC) [Ratio] 14.5 % Normal 11.6-14.6 [facility] Comment on above: Order Comment: Order Date: 10/06/24 Order Info: 0184-1 - CBCD Performed By: #### L 506.1000, L509.1000, L500.4100, L100.0100, L500.4050 #### [facility] [address] [place], [address] Hematocrit (Bld) [Volume fraction] 39.8 % Normal 37-47 [facility] Comment on above: Order Comment: Order Date: 10/06/24 Order Info: 0184-1 - CBCD Performed By: #### L 506.1000, L509.1000, L500.4100, L100.0100, L500.4050 #### [facility] [address] [place], [address] Hemoglobin (Bld) [Mass/Vol] 12.6 g/dL Normal 12.0-15.0 [facility] Comment on above: Order Comment: Order Date: 10/06/24 Order Info: 0184-1 - CBCD Performed By: #### L 506.1000, L509.1000, L500.4100, L100.0100, L500.4050 #### [facility] [address] [place], [address] IG% 0.500 Normal 0.0-0.9 [facility] Comment on above: Order Comment: Order Date: 10/06/24 Order Info: 0184-1 - CBCD Result Comment: IG% - Immature Granulocytes (promyelocytes, myelocytes and metamyelocytes) > 1% indicates that a LEFT SHIFT is Present. Performed By: #### L 506.1000, L509.1000, L500.4100, L100.0100, L500.4050 #### [facility] [address] [place], [address] Lymphocytes/100 WBC (Bld) 29.5 % Normal 19-41 [facility] Comment on above: Order Comment: Order Date: 10/06/24 Order Info: 0184-1 - CBCD Performed By: #### L 506.1000, L509.1000, L500.4100, L100.0100, L500.4050 #### [facility] [address] [place], [address] MCH (RBC) [Entitic mass] 29.0 pg Normal 27.0-32.0 [facility] Comment on above: Order Comment: Order Date: 10/06/24 Order Info: 0184-1 - CBCD Performed By: #### L 506.1000, L509.1000, L500.4100, L100.0100, L500.4050 #### [facility] [address] [place], [address] MCHC (RBC) [Mass/Vol] 31.7 g/dL Low 32-36 [facility] Comment on above: Order Comment: Order Date: 10/06/24 Order Info: 018- - CBCD Performed By: #### L 506.1000, L509.1000, L500.4100, L100.0100, L500.4050 #### [facility] [address] [place], [address] MCV (RBC) [Entitic vol] 91.5 fL Normal 81-99 [facility] Comment on above: Order Comment: Order Date: 10/06/24 Order Info: 0184-1 - CBCD Performed By: #### L 506.1000, L509.1000, L500.4100, L100.0100, L500.4050 #### [facility] [address] [place], [address] Monocytes/100 WBC (Bld) 11.6 % High 0-10 [facility] Comment on above: Order Comment: Order Date: 10/06/24 Order Info: 0184-1 - CBCD Performed By: #### L 506.1000, L509.1000, L500.4100, L100.0100, L500.4050 #### [facility] [address] [place], [address] Neutrophils/100 WBC (Bld) 54.2 % Normal 47-70 [facility] Comment on above: Order Comment: Order Date: 10/06/24 Order Info: 0184-1 - CBCD Performed By: #### L 506.1000, L509.1000, L500.4100, L100.0100, L500.4050 #### [facility] [address] [place], [address] Nucleated RBC (Bld) [#/Vol] 0 10*3/uL Normal 0-5 [facility] Comment on above: Order Comment: Order Date: 10/06/24 Order Info: 0184- - CBCD Performed By: #### L 506.1000, L509.1000, L500.4100, L100.0100, L500.4050 #### [facility] [address] [place], [address] Platelet mean volume (Bld) [Entitic vol] 10.4 fL Normal 6.2-12.0 [facility] Comment on above: Order Comment: Order Date: 10/06/24 Order Info: 0184- - CBCD Performed By: #### L 506.1000, L509.1000, L500.4100, L100.0100, L500.4050 #### [facility] [address] [place], [address] Platelets (Bld) [#/Vol] 302 10*3/uL Normal 150-450 [facility] Comment on above: Order Comment: Order Date: 10/06/24 Order Info: 0184-1 - CBCD Performed By: #### L 506.1000, L509.1000, L500.4100, L100.0100, L500.4050 #### [facility] [address] [place], [address] RBC (Bld) [#/Vol] 4.35 10*6/uL Normal 4.2-5.4 [facility] Comment on above: Order Comment: Order Date: 10/06/24 Order Info: 0184-1 - CBCD Performed By: #### L 506.1000, L509.1000, L500.4100, L100.0100, L500.4050 #### [facility] [address] [place], [address] RDW SD 48.8 fl High 35.1-43.9 [facility] Comment on above: Order Comment: Order Date: 10/06/24 Order Info: 0184-1 - CBCD Performed By: #### L 506.1000, L509.1000, L500.4100, L100.0100, L500.4050 #### [facility] [address] [place], [address] WBC (Bld) [#/Vol] 4.0 10*3/uL Low 4.4-11.0 [facility] Comment on above: Order Comment: Order Date: 10/06/24 Order Info: 0184-1 - CBCD Performed By: #### L 506.1000, L509.1000, L500.4100, L100.0100, L500.4050 #### [facility] [address] [place], [address] Comprehensive Metabolic Prof ilon 06-01-2025 Albumin [Mass/Vol] 4.2 g/dL Normal 3.4-4.8 [facility] Comment on above: Order Comment: Order Date: 10/06/24 Order Info: 0184-1 - CBCD Performed By: #### L 506.1000, L509.1000, L500.4100, L100.0100, L500.4050 #### [facility] [address] [place], [address] Albumin/Globulin [Mass ratio] 1.5 {ratio} Normal 0.9-2.4 [facility] Comment on above: Order Comment: Order Date: 10/06/24 Order Info: 0184-1 - CBCD Performed By: #### L 506.1000, L509.1000, L500.4100, L100.0100, L500.4050 #### [facility] [address] [place], [address] ALK PHOS 86 U/L Normal 35-104 [facility] Comment on above: Order Comment: Order Date: 10/06/24 Order Info: 018-1 - CBCD Performed By: #### L 506.1000, L509.1000, L500.4100, L100.0100, L500.4050 #### [facility] [address] [place], [address] ALT [Catalytic activity/Vol] 13 U/L Normal <=34 [facility] Comment on above: Order Comment: Order Date: 10/06/24 Order Info: 018- - CBCD Performed By: #### L 506.1000, L509.1000, L500.4100, L100.0100, L500.4050 #### [facility] [address] [place], [address] AST [Catalytic activity/Vol] 24 U/L Normal <=31 [facility] Comment on above: Order Comment: Order Date: 10/06/24 Order Info: 0184- - CBCD Performed By: #### L 506.1000, L509.1000, L500.4100, L100.0100, L500.4050 #### [facility] [address] [place], [address] Bilirubin [Mass/Vol] 0.29 mg/dL Normal 0.00-1.30 [facility] Comment on above: Order Comment: Order Date: 10/06/24 Order Info: 0184- - CBCD Performed By: #### L 506.1000, L509.1000, L500.4100, L100.0100, L500.4050 #### [facility] [address] [place], [address] BUN/CRE 18.5 RATIO Normal 10-20 [facility] Comment on above: Order Comment: Order Date: 10/06/24 Order Info: 0184-1 - CBCD Performed By: #### L 506.1000, L509.1000, L500.4100, L100.0100, L500.4050 #### [facility] [address] [place], [address] Calcium [Mass/Vol] 10.1 mg/dL Normal 7.6-11.0 [facility] Comment on above: Order Comment: Order Date: 10/06/24 Order Info: 0184- - CBCD Performed By: #### L 506.1000, L509.1000, L500.4100, L100.0100, L500.4050 #### [facility] [address] [place], [address] Chloride [Moles/Vol] 102 mmol/L Normal 98-108 [facility] Comment on above: Order Comment: Order Date: 10/06/24 Order Info: 0184-1 - CBCD Performed By: #### L 506.1000, L509.1000, L500.4100, L100.0100, L500.4050 #### [facility] [address] [place], [address] CO2 [Moles/Vol] 25.9 mmol/L Normal 21.0-32.0 [facility] Comment on above: Order Comment: Order Date: 10/06/24 Order Info: 0184-1 - CBCD Performed By: #### L 506.1000, L509.1000, L500.4100, L100.0100, L500.4050 #### [facility] [address] [place], [address] Creatinine [Mass/Vol] 1.06 mg/dL Normal 0.70-1.20 [facility] Comment on above: Order Comment: Order Date: 10/06/24 Order Info: 0184-1 - CBCD Performed By: #### L 506.1000, L509.1000, L500.4100, L100.0100, L500.4050 #### [facility] [address] [place], [address] GAP 10 Normal 5-15 [facility] Comment on above: Order Comment: Order Date: 10/06/24 Order Info: 0184-1 - CBCD Performed By: #### L 506.1000, L509.1000, L500.4100, L100.0100, L500.4050 #### [facility] [address] [place], [address] GFR/1.73 sq M.predicted among non-blacks MDRD (S/P/Bld) [Vol rate/Area] 55 mL/min/{1.73_m2} Low >60 [facility] Comment on above: Order Comment: Order Date: 10/06/24 Order Info: 0184-1 - CBCD Result Comment: mL/m in/1.73m2 CKD-EPI Creatinine Equation (2020) Performed By: #### L 506.1000, L509.1000, L500.4100, L100.0100, L500.4050 #### [facility] [address] [place], [address] Globulin (S) [Mass/Vol] 2.9 g/dL Normal 2.2-4.2 [facility] Comment on above: Order Comment: Order Date: 10/06/24 Order Info: 0184-1 - CBCD Performed By: #### L 506.1000, L509.1000, L500.4100, L100.0100, L500.4050 #### [facility] [address] [place], [address] Glucose [Mass/Vol] 89 mg/dL Normal 70-99 [facility] Comment on above: Order Comment: Order Date: 10/06/24 Order Info: 0184-1 - CBCD Performed By: #### L 506.1000, L509.1000, L500.4100, L100.0100, L500.4050 #### [facility] [address] [place], [address] Potassium [Moles/Vol] 4.6 mmol/L Normal 3.3-5.1 [facility] Comment on above: Order Comment: Order Date: 10/06/24 Order Info: 0184-1 - CBCD Performed By: #### L 506.1000, L509.1000, L500.4100, L100.0100, L500.4050 #### [facility] [address] [place], [address] Sodium [Moles/Vol] 139 mmol/L Normal 133-145 [facility] Comment on above: Order Comment: Order Date: 10/06/24 Order Info: 0184-1 - CBCD Performed By: #### L 506.1000, L509.1000, L500.4100, L100.0100, L500.4050 #### [facility] [address] [place], [address] T PROT 7.1 g/dL Normal 5.9-8.4 [facility] Comment on above: Order Comment: Order Date: 10/06/24 Order Info: 0184-1 - CBCD Performed By: #### L 506.1000, L509.1000, L500.4100, L100.0100, L500.4050 #### [facility] [address] [place], [address] Urea nitrogen [Mass/Vol] 20 mg/dL High 4-19 [facility] Comment on above: Order Comment: Order Date: 10/06/24 Order Info: 0184-1 - CBCD Performed By: #### L 506.1000, L509.1000, L500.4100, L100.0100, L500.4050 #### [facility] [address] [place], [address] Lipid Profileon 06-01-2025 CHOL:HDL 2.70 Normal [facility] Comment on above: Order Comment: Order Date: 10/06/24 Order Info: 0184-1 - CBCD Performed By: #### L 506.1000, L509.1000, L500.4100, L100.0100, L500.4050 #### [facility] [address] [place], [address] Cholesterol [Mass/Vol] 258 mg/dL High <=200 [facility] Comment on above: Order Comment: Order Date: 10/06/24 Order Info: 0184-1 - CBCD Result Comment: Chol esterol level, Desirable <200 mg/dL Borderline high cholesterol 200-239 mg/dL High cholesterol >=240 mg/dL Recommendations of the NCEP Adult Treatment Panel for the following risk-cutoff thresholds for the [place] population. Performed By: #### L 506.1000, L509.1000, L500.4100, L100.0100, L500.4050 #### [facility] [address] [place], [address] Cholesterol in HDL [Mass/Vol] 96 mg/dL Normal [facility] Comment on above: Order Comment: [...] L 506.1000, L509.1000, L500.4100, L100.0100, L500.4050 #### [facility] [address] [place], [address] Cholesterol in LDL [Mass/Vol] 143 mg/dL Normal [facility] Comment on above: Order Comment: Order Date: 10/06/24 Order Info: 0184-1 - CBCD Result Comment: Bord ouhhyy=997-460 mg/dL Higher Jiat=484 mg/dL or greater Friedwald Equation for LDL-C Performed By: #### L 506.1000, L509.1000, L500.4100, L100.0100, L500.4050 #### [facility] [address] [place], [address] Cholesterol in VLDL [Mass/Vol] 20 mg/dL Normal 5-40 [facility] Comment on above: Order Comment: Order Date: 10/06/24 Order Info: 0184-1 - CBCD Performed By: #### L 506.1000, L509.1000, L500.4100, L100.0100, L500.4050 #### [facility] [address] [place], [address] Triglyceride [Mass/Vol] 99 mg/dL Normal [facility] Comment on above: Order Comment: Order Date: 10/06/24 Order Info: 0184-1 - CBCD Result Comment: The drugs N-Acetylcysteine and Metamizole may falsely depress this assay. Normal range: <150 mg/dL Borderline High: 150-199 mg/dL High: 200-499 mg/dL Very High: >500 mg/dL Performed By: #### L 506.1000, L509.1000, L500.4100, L100.0100, L500.4050 #### [facility] [address] [place], [address] Protein+Creatinine Ratio,Uri neon 06-01-2025 PROT:CRE RATIO 144 mg/g CRE Normal 0-200 [facility] Comment on above: Order Comment: PER Samira ZARCO COMMENT-PROCRE Performed By: #### L 501.0900 #### [facility] [address] [place], [address] Protein (U) [Mass/Vol] 25.7 mg/dL High 0.0-12.0 [facility] Comment on above: Order Comment: PER Samira ZARCO COMMENT-PROCRE Performed By: #### L 501.0900 #### [facility] [address] [place], [address] UR CREAT 179.00 mg/dL Normal 28.00-217. 00 [facility] Comment on above: Order Comment: PER Samira ZARCO COMMENT-PROCRE Performed By: #### L 501.0900 #### [facility] [address] [place], [address] Vitamin D,25 Hydroxyon 06-01 Vitamin D 25-OH 43.4 ng/mL Normal 30-100 [facility] Comment on above: Order Comment: Order Date: 10/06/24 Order Info: 0184-1 - CBCD Result Comment: Oksana min D Status Deficiency: <20 ng/mL (50nmol/L) Insufficiency: 20-30 ng/mL (50-75 nmol/L) Sufficiency: 30-100 ng/mL (75-250 nmol/L) Toxicity: >100 ng/mL (>250 nmol/L) Performed By: #### L 506.1000, L509.1000, L500.4100, L100.0100, L500.4050 #### [facility] [address] [place], [address] Absolute lymphocyte countOrd ered By: Maurilio Castillo on 02-01-2025 Lymphocytes Auto (Unsp spec) [#/Vol] 0.93 10*3/uL 0.83-4.51 [facility] Absolute neutrophil countOrd ered By: Maurilio Castillo on 02-01-2025 Neutrophils (Bld) [#/Vol] 2.1 10*3/uL 2.0-7.7 [facility] Anion gap in Serum or Plasma Ordered By: Maurilio Castillo on 02-01-2025 Anion gap [Moles/Vol] 12 mmol/L 5-15 [facility] Automated lymphocyte count a s percentage of total leukocytesOrdered By: Maurilio Castillo on 02-01-2025 Lymphocytes/100 WBC Auto (Unsp spec) 25.9 % 19-41 [facility] BUN/creatinine ratioOrdered By: Maurilio Atkinsonmaurice on 02-01-2025 Urea nitrogen/Creatinine [Mass ratio] 16.8 mg/mg 10- [facility] Basophil percentageOrdered B y: Maurilio Castillo on 02-01-2025 Basophils/100 WBC (Bld) 1.1 % High 0-1 [facility] Bilirubin Test strip Ql (U)O rdered By: Maurilio Oharahermes on 02-01-2025 Bilirubin Ql (U) Negative Negative [facility] Bilirubin, totalOrdered By: Maurilio Oharahermes on 02-01-2025 Bilirubin [Mass/Vol] 0.31 mg/dL 0.00-1.30 [facility] CBC W/Diff, Automatedon 01-23 Absolute Lymph 0.93 X10 3/uL Normal 0.83-4.51 [facility] Comment on above: Order Comment: Order Date: 10/06/24 Order Info: 0565-1 - PTHIN Performed By: #### L 506.1000, L509.1000, L500.4100, L100.0100, L500.4050 #### [facility] [address] [place], [address] Absolute Neut 2.1 X10 3/uL Normal 2.0-7.7 [facility] Comment on above: Order Comment: Order Date: 10/06/24 Order Info: 0565-1 - PTHIN Performed By: #### L 506.1000, L509.1000, L500.4100, L100.0100, L500.4050 #### [facility] [address] [place], [address] Basophils/100 WBC (Bld) 1.1 % High 0-1 [facility] Comment on above: Order Comment: Order Date: 10/06/24 Order Info: 0565-1 - PTHIN Performed By: #### L 506.1000, L509.1000, L500.4100, L100.0100, L500.4050 #### [facility] [address] [place], [address] Eosinophils/100 WBC (Bld) 3.1 % Normal 0-5 [facility] Comment on above: Order Comment: Order Date: 10/06/24 Order Info: 0565-1 - PTHIN Performed By: #### L 506.1000, L509.1000, L500.4100, L100.0100, L500.4050 #### [facility] [address] [place], [address] Erythrocyte distribution width (RBC) [Ratio] 13.9 % Normal 11.6-14.6 [facility] Comment on above: Order Comment: Order Date: 10/06/24 Order Info: 0565-1 - PTHIN Performed By: #### L 506.1000, L509.1000, L500.4100, L100.0100, L500.4050 #### [facility] [address] [place], [address] Hematocrit (Bld) [Volume fraction] 41.1 % Normal 37-47 [facility] Comment on above: Order Comment: Order Date: 10/06/24 Order Info: 0565-1 - PTHIN Performed By: #### L 506.1000, L509.1000, L500.4100, L100.0100, L500.4050 #### [facility] [address] [place], [address] Hemoglobin (Bld) [Mass/Vol] 12.8 g/dL Normal 12.0-15.0 [facility] Comment on above: Order Comment: Order Date: 10/06/24 Order Info: 0565-1 - PTHIN Performed By: #### L 506.1000, L509.1000, L500.4100, L100.0100, L500.4050 #### [facility] [address] [place], [address] IG% 0.300 Normal 0.0-0.9 [facility] Comment on above: Order Comment: Order Date: 10/06/24 Order Info: 0565-1 - PTHIN Result Comment: IG% - Immature Granulocytes (promyelocytes, myelocytes and metamyelocytes) > 1% indicates that a LEFT SHIFT is Present. Performed By: #### L 506.1000, L509.1000, L500.4100, L100.0100, L500.4050 #### [facility] [address] [place], [address] Lymphocytes/100 WBC (Bld) 25.9 % Normal 19-41 [facility] Comment on above: Order Comment: Order Date: 10/06/24 Order Info: 0565-1 - PTHIN Performed By: #### L 506.1000, L509.1000, L500.4100, L100.0100, L500.4050 #### [facility] [address] [place], [address] MCH (RBC) [Entitic mass] 29.1 pg Normal 27.0-32.0 [facility] Comment on above: Order Comment: Order Date: 10/06/24 Order Info: 0565-1 - PTHIN Performed By: #### L 506.1000, L509.1000, L500.4100, L100.0100, L500.4050 #### [facility] [address] [place], [address] MCHC (RBC) [Mass/Vol] 31.1 g/dL Low 32-36 [facility] Comment on above: Order Comment: Order Date: 10/06/24 Order Info: 0565-1 - PTHIN Performed By: #### L 506.1000, L509.1000, L500.4100, L100.0100, L500.4050 #### [facility] [address] [place], [address] MCV (RBC) [Entitic vol] 93.4 fL Normal 81-99 [facility] Comment on above: Order Comment: Order Date: 10/06/24 Order Info: 0565-1 - PTHIN Performed By: #### L 506.1000, L509.1000, L500.4100, L100.0100, L500.4050 #### [facility] [address] [place], [address] Monocytes/100 WBC (Bld) 10.6 % High 0-10 [facility] Comment on above: Order Comment: Order Date: 10/06/24 Order Info: 0565-1 - PTHIN Performed By: #### L 506.1000, L509.1000, L500.4100, L100.0100, L500.4050 #### [facility] [address] [place], [address] Neutrophils/100 WBC (Bld) 59.0 % Normal 47-70 [facility] Comment on above: Order Comment: Order Date: 10/06/24 Order Info: 0565-1 - PTHIN Performed By: #### L 506.1000, L509.1000, L500.4100, L100.0100, L500.4050 #### [facility] [address] [place], [address] Nucleated RBC (Bld) [#/Vol] 0 10*3/uL Normal 0-5 [facility] Comment on above: Order Comment: Order Date: 10/06/24 Order Info: 0565-1 - PTHIN Performed By: #### L 506.1000, L509.1000, L500.4100, L100.0100, L500.4050 #### [facility] [address] [place], [address] Platelet mean volume (Bld) [Entitic vol] 10.4 fL Normal 6.2-12.0 [facility] Comment on above: Order Comment: Order Date: 10/06/24 Order Info: 0565-1 - PTHIN Performed By: #### L 506.1000, L509.1000, L500.4100, L100.0100, L500.4050 #### [facility] [address] [place], [address] Platelets (Bld) [#/Vol] 292 10*3/uL Normal 150-450 [facility] Comment on above: Order Comment: Order Date: 10/06/24 Order Info: 0565-1 - PTHIN Performed By: #### L 506.1000, L509.1000, L500.4100, L100.0100, L500.4050 #### [facility] [address] [place], [address] RBC (Bld) [#/Vol] 4.40 10*6/uL Normal 4.2-5.4 [facility] Comment on above: Order Comment: Order Date: 10/06/24 Order Info: 0565-1 - PTHIN Performed By: #### L 506.1000, L509.1000, L500.4100, L100.0100, L500.4050 #### [facility] [address] [place], [address] RDW SD 47.6 fl High 35.1-43.9 [facility] Comment on above: Order Comment: Order Date: 10/06/24 Order Info: 0565-1 - PTHIN Performed By: #### L 506.1000, L509.1000, L500.4100, L100.0100, L500.4050 #### [facility] [address] [place], [address] WBC (Bld) [#/Vol] 3.6 10*3/uL Low 4.4-11.0 [facility] Comment on above: Order Comment: Order Date: 10/06/24 Order Info: 0565-1 - PTHIN Performed By: #### L 506.1000, L509.1000, L500.4100, L100.0100, L500.4050 #### [facility] [address] [place], [address] Calculated very low density lipoprotein (VLDL) cholesterol measurementOrdered By: Maurilio Castillo on 02-01-2025 Calculated very low density lipoprotein (VLDL) cholesterol measurement 14 mg/dL 5-40 [facility] Carbon dioxide, total [Moles /volume] in Central venous bloodOrdered By: Maurilio Castillo on 02-01-2025 CO2 [Moles/Vol] 26.0 mmol/L 21.0-32.0 [facility] Chloride assayOrdered By: Ashley Castillo on 02-01-2025 Chloride [Moles/Vol] 102 mmol/L 98-108 [facility] Comprehensive Metabolic Prof ilon 02-01-2025 Albumin [Mass/Vol] 4.3 g/dL Normal 3.4-4.8 [facility] Comment on above: Order Comment: Order Date: 10/06/24 Order Info: 0565-1 - PTHIN Performed By: #### L 506.1000, L509.1000, L500.4100, L100.0100, L500.4050 #### [facility] [address] [place], [address] Albumin/Globulin [Mass ratio] 1.6 {ratio} Normal 0.9-2.4 [facility] Comment on above: Order Comment: Order Date: 10/06/24 Order Info: 0565-1 - PTHIN Performed By: #### L 506.1000, L509.1000, L500.4100, L100.0100, L500.4050 #### [facility] [address] [place], [address] ALK PHOS 90 U/L Normal 35-104 [facility] Comment on above: Order Comment: Order Date: 10/06/24 Order Info: 0565-1 - PTHIN Performed By: #### L 506.1000, L509.1000, L500.4100, L100.0100, L500.4050 #### [facility] [address] [place], [address] ALT [Catalytic activity/Vol] 17 U/L Normal <=34 [facility] Comment on above: Order Comment: Order Date: 10/06/24 Order Info: 0565-1 - PTHIN Performed By: #### L 506.1000, L509.1000, L500.4100, L100.0100, L500.4050 #### [facility] [address] [place], [address] AST [Catalytic activity/Vol] 27 U/L Normal <=31 [facility] Comment on above: Order Comment: Order Date: 10/06/24 Order Info: 0565-1 - PTHIN Performed By: #### L 506.1000, L509.1000, L500.4100, L100.0100, L500.4050 #### [facility] [address] [place], [address] Bilirubin [Mass/Vol] 0.31 mg/dL Normal 0.00-1.30 [facility] Comment on above: Order Comment: Order Date: 10/06/24 Order Info: 0565-1 - PTHIN Performed By: #### L 506.1000, L509.1000, L500.4100, L100.0100, L500.4050 #### [facility] [address] [place], [address] BUN/CRE 16.8 RATIO Normal 10-20 [facility] Comment on above: Order Comment: Order Date: 10/06/24 Order Info: 0565-1 - PTHIN Performed By: #### L 506.1000, L509.1000, L500.4100, L100.0100, L500.4050 #### [facility] [address] [place], [address] Calcium [Mass/Vol] 10.1 mg/dL Normal 7.6-11.0 [facility] Comment on above: Order Comment: Order Date: 10/06/24 Order Info: 0565-1 - PTHIN Performed By: #### L 506.1000, L509.1000, L500.4100, L100.0100, L500.4050 #### [facility] [address] [place], [address] Chloride [Moles/Vol] 102 mmol/L Normal 98-108 [facility] Comment on above: Order Comment: Order Date: 10/06/24 Order Info: 0565-1 - PTHIN Performed By: #### L 506.1000, L509.1000, L500.4100, L100.0100, L500.4050 #### [facility] [address] [place], [address] CO2 [Moles/Vol] 26.0 mmol/L Normal 21.0-32.0 [facility] Comment on above: Order Comment: Order Date: 10/06/24 Order Info: 0565-1 - PTHIN Performed By: #### L 506.1000, L509.1000, L500.4100, L100.0100, L500.4050 #### [facility] [address] [place], [address] Creatinine [Mass/Vol] 1.12 mg/dL Normal 0.70-1.20 [facility] Comment on above: Order Comment: Order Date: 10/06/24 Order Info: 0565-1 - PTHIN Performed By: #### L 506.1000, L509.1000, L500.4100, L100.0100, L500.4050 #### [facility] [address] [place], [address] GAP 12 Normal 5-15 [facility] Comment on above: Order Comment: Order Date: 10/06/24 Order Info: 0565-1 - PTHIN Performed By: #### L 506.1000, L509.1000, L500.4100, L100.0100, L500.4050 #### [facility] [address] [place], [address] GFR/1.73 sq M.predicted among non-blacks MDRD (S/P/Bld) [Vol rate/Area] 52 mL/min/{1.73_m2} Low >60 [facility] Comment on above: Order Comment: Order Date: 10/06/24 Order Info: 0565-1 - PTHIN Result Comment: mL/m in/1.73m2 CKD-EPI Creatinine Equation (2020) Performed By: #### L 506.1000, L509.1000, L500.4100, L100.0100, L500.4050 #### [facility] [address] [place], [address] Globulin (S) [Mass/Vol] 2.7 g/dL Normal 2.2-4.2 [facility] Comment on above: Order Comment: Order Date: 10/06/24 Order Info: 0565-1 - PTHIN Performed By: #### L 506.1000, L509.1000, L500.4100, L100.0100, L500.4050 #### [facility] [address] [place], [address] Glucose [Mass/Vol] 105 mg/dL High 70-99 [facility] Comment on above: Order Comment: Order Date: 10/06/24 Order Info: 0565-1 - PTHIN Performed By: #### L 506.1000, L509.1000, L500.4100, L100.0100, L500.4050 #### [facility] [address] [place], [address] Potassium [Moles/Vol] 4.8 mmol/L Normal 3.3-5.1 [facility] Comment on above: Order Comment: Order Date: 10/06/24 Order Info: 0565-1 - PTHIN Performed By: #### L 506.1000, L509.1000, L500.4100, L100.0100, L500.4050 #### [facility] [address] [place], [address] Sodium [Moles/Vol] 140 mmol/L Normal 133-145 [facility] Comment on above: Order Comment: Order Date: 10/06/24 Order Info: 0565-1 - PTHIN Performed By: #### L 506.1000, L509.1000, L500.4100, L100.0100, L500.4050 #### [facility] [address] [place], [address] T PROT 7.0 g/dL Normal 5.9-8.4 [facility] Comment on above: Order Comment: Order Date: 10/06/24 Order Info: 0565-1 - PTHIN Performed By: #### L 506.1000, L509.1000, L500.4100, L100.0100, L500.4050 #### [facility] [address] [place], [address] Urea nitrogen [Mass/Vol] 19 mg/dL Normal 4-19 [facility] Comment on above: Order Comment: Order Date: 10/06/24 Order Info: 0565-1 - PTHIN Performed By: #### L 506.1000, L509.1000, L500.4100, L100.0100, L500.4050 #### [facility] [address] [place], [address] Eosinophil percentageOrdered By: Maurilio Castillo on 02-01-2025 Eosinophils/100 WBC (Bld) 3.1 % 0-5 [facility] Erythrocyte distribution wid th ratioOrdered By: Maurilio Castillo on 02-01-2025 Erythrocyte distribution width (RBC) [Ratio] 13.9 % 11.6-14.6 [facility] Erythrocyte distribution wid th standard deviationOrdered By: Maurilio Castillo on 02-01-2025 Erythrocyte distribution width (RBC) [Ratio] 47.6 fl High 35.1-43.9 [facility] Glomerular filtration rate ( GFR) estimation/1.73 sq m using serum, plasma, or whole bOrdered By: Maurilio Castillo on 02-01-2025 GFR/1.73 sq M.predicted among non-blacks MDRD (S/P/Bld) [Vol rate/Area] 52 mL/min/{1.73_m2} Low >60 [facility] Comment on above: mL/min/1.73m2 CKD-EP I Creatinine Equation (2020) Hematocrit Auto (Bld) [Volum e fraction]Ordered By: Maurilio Castillo on 02-01-2025 Hematocrit (Bld) [Volume fraction] 41.1 % 37-47 [facility] Hemoglobin measurementOrdere d By: Maurilio Castillo on 02-01-2025 Hemoglobin (Bld) [Mass/Vol] 12.8 g/dL 12.0-15.0 [facility] Immature granulocytes/100 WB C Auto (Bld)Ordered By: Maurilio Castillo on 02-01-2025 Immature granulocytes/100 WBC (Bld) 0.300 % 0.0-0.9 [facility] Comment on above: IG% - Immature Granu locytes (promyelocytes, myelocytes and metamyelocytes) > 1% indicates that a LEFT SHIFT is Present. Ketones Test strip Ql (U)Ord ered By: Maurilio Castillo on 02-01-2025 Ketones Ql (U) Negative Negative [facility] LDL calc ser/plasOrdered By: Maurilio Castillo on 02-01-2025 Cholesterol in LDL [Mass/Vol] 139 mg/dL [facility] Comment on above: Ubsptjpfyp=152-606 m g/dL & Higher Mzgt=518 mg/dL or greater Laboratory - Chemistry and C hemistry - challengeOrdered By: Maurilio Castillo on 02-01-2025 AST [Catalytic activity/Vol] 27 U/L <32 [facility] Lipid Profileon 02-01-2025 CHOL:HDL 2.70 Normal [facility] Comment on above: Order Comment: Order Date: 10/06/24 Order Info: 0565-1 - PTHIN Performed By: #### L 506.1000, L509.1000, L500.4100, L100.0100, L500.4050 #### [facility] [address] [place] [address]. [place], [address] Cholesterol [Mass/Vol] 244 mg/dL High <=200 [facility] Comment on above: Order Comment: Order Date: 10/06/24 Order Info: 0565-1 - PTHIN Result Comment: Chol esterol level, Desirable <200 mg/dL Borderline high cholesterol 200-239 mg/dL High cholesterol >=240 mg/dL Recommendations of the NCEP Adult Treatment Panel for the following risk-cutoff thresholds for the [place] population. Performed By: #### L 506.1000, L509.1000, L500.4100, L100.0100, L500.4050 #### [facility] [address] [place], [address] Cholesterol in HDL [Mass/Vol] 91 mg/dL Normal [facility] Comment on above: Order Comment: [...] L 506.1000, L509.1000, L500.4100, L100.0100, L500.4050 #### [facility] [address] [place], [address] Cholesterol in LDL [Mass/Vol] 139 mg/dL Normal [facility] Comment on above: Order Comment: Order Date: 10/06/24 Order Info: 0565-1 - PTHIN Result Comment: Bord kxniau=189-515 mg/dL Higher Ixkz=194 mg/dL or greater Performed By: #### L 506.1000, L509.1000, L500.4100, L100.0100, L500.4050 #### [facility] [address] [place], [address] Cholesterol in VLDL [Mass/Vol] 14 mg/dL Normal 5-40 [facility] Comment on above: Order Comment: Order Date: 10/06/24 Order Info: 0565-1 - PTHIN Performed By: #### L 506.1000, L509.1000, L500.4100, L100.0100, L500.4050 #### [facility] [address] [place], [address] Triglyceride [Mass/Vol] 71 mg/dL Normal [facility] Comment on above: Order Comment: Order Date: 10/06/24 Order Info: 0565-1 - PTHIN Result Comment: The drugs N-Acetylcysteine and Metamizole may falsely depress this assay. Normal range: <150 mg/dL Borderline High: 150-199 mg/dL High: 200-499 mg/dL Very High: >500 mg/dL Performed By: #### L 506.1000, L509.1000, L500.4100, L100.0100, L500.4050 #### [facility] [address] [place], [place], [address] MCV (mean corpuscular volume ) determinationOrdered By: Maurilio Castillo on 02-01-2025 MCV (RBC) [Entitic vol] 93.4 fL 81-99 [facility] Mean corpuscular hemoglobin (MCH) determinationOrdered By: Maurilio Castillo on 02-01-2025 MCH (RBC) [Entitic mass] 29.1 pg 27.0-32.0 [facility] Mean corpuscular hemoglobin concentration (MCHC) determinationOrdered By: Maurilio Castillo on 02-01-2025 MCHC (RBC) [Mass/Vol] 31.1 g/dL Low 32-36 [facility] Mean platelet volume determi nationOrdered By: Maurilio Castillo on 02-01-2025 Platelet mean volume (Bld) [Entitic vol] 10.4 fL 6.2-12.0 [facility] Microscopic analysis of urin e for red blood cells (RBC)Ordered By: Maurilio Castillo on 02-01-2025 Microscopic analysis of urine for red blood cells (RBC) 0-5 SEEN /hpf 0-5 [facility] Monocyte percentageOrdered B y: Maurilio Castillo on 02-01-2025 Monocytes/100 WBC (Bld) 10.6 % High 0-10 [facility] Mucus LM Ql (Urine sed)Order ed By: Maurilio Castillo on 02-01-2025 Mucus Ql (Urine sed) 0 SEEN /hpf [facility] Neutrophil percentageOrdered By: Maurilio Castillo on 02-01-2025 Neutrophils/100 WBC (Bld) 59.0 % 47-70 [facility] Nitrite Test strip Ql (U)Ord ered By: Maurilio Castillo on 02-01-2025 Nitrite Ql (U) Negative Negative [facility] Nucleated red blood cell per centageOrdered By: Maurilio Castillo on 02-01-2025 Nucleated RBC/100 WBC (Bld) [Ratio] 0 % 0-5 [facility] PTHINon 02-01-2025 PTH 60 pg/mL Normal 11-61 [facility] Comment on above: Order Comment: Order Date: 10/06/24 Order Info: 0565-1 - PTHIN Performed By: #### L 506.1000, L509.1000, L500.4100, L100.0100, L500.4050 #### [facility] [address] [place], [address] Platelet countOrdered By: Ashley Castillo on 02-01-2025 Platelets (Bld) [#/Vol] 292 10*3/uL 150-450 [facility] Potassium measurement (mass/ volume)Ordered By: Maurilio Castillo on 02-01-2025 Potassium (Unsp spec) [Mass/Vol] 4.8 mmol/L 3.3-5.1 [facility] Protein Test strip Ql (U)Ord ered By: Maurilio Castillo on 02-01-2025 Protein Ql (U) 15 mg/dl High Negative [facility] Protein+Creatinine Ratio,Uri neon 02-01-2025 PROT:CRE RATIO 138 mg/g CRE Normal 0-200 [facility] Comment on above: Performed By: #### L 506.1000, L509.1000, L500.4100, L100.0100, L500.4050 #### [facility] [address] [place], [address] Protein (U) [Mass/Vol] 23.4 mg/dL High 0.0-12.0 [facility] Comment on above: Performed By: #### L 506.1000, L509.1000, L500.4100, L100.0100, L500.4050 #### [facility] [address] [place], [address] UR CREAT 170.00 mg/dL Normal 28.00-217. 00 [facility] Comment on above: Performed By: #### L 506.1000, L509.1000, L500.4100, L100.0100, L500.4050 #### [facility] [address] [place], [address] RBC Auto (Bld) [#/Vol]Ordere d By: Maurilio Castillo on 02-01-2025 RBC (Bld) [#/Vol] 4.40 10*6/uL 4.2-5.4 [facility] Random urine creatinine chad urement (mass/volume)Ordered By: Maurilio Castillo on 02-01-2025 Creatinine Unsp time (U) [Mass/Vol] 170.00 mg/dL 28.00-217. 00 [facility] Screening total cholesterol/ high density lipoprotein (HDL) cholesterol ratioOrdered By: Maurilio Castillo on 02-01-2025 Cholesterol.total/Cho lesterol in HDL [Mass ratio] 2.70 {ratio} [facility] Serum creatinine measurement (mass/volume)Ordered By: Maurilio Castillo on 02-01-2025 Creatinine [Mass/Vol] 1.12 mg/dL 0.70-1.20 [facility] Serum globulin measurementOr dered By: Maurilio Castillo on 02-01-2025 Globulin (S) [Mass/Vol] 2.7 g/dL 2.2-4.2 [facility] Serum glucose measurement (m ass/volume)Ordered By: Maurilio Castillo on 02-01-2025 Glucose [Mass/Vol] 105 mg/dL High 70-99 [facility] Serum or plasma alanine quigley otransferase (ALT) measurementOrdered By: Maurilio Castillo on 02-01-2025 ALT [Catalytic activity/Vol] 17 U/L <35 [facility] Serum or plasma albumin chad urement (mass/volume)Ordered By: Maurilio Castillo on 02-01-2025 Albumin [Mass/Vol] 4.3 g/dL 3.4-4.8 [facility] Serum or plasma albumin/glob ulin mass ratioOrdered By: Maurilio Castillo on 02-01-2025 Albumin/Globulin [Mass ratio] 1.6 {ratio} 0.9-2.4 [facility] Serum or plasma alkaline john sphatase measurementOrdered By: Maurilio Castillo on 02-01-2025 ALP [Catalytic activity/Vol] 90 U/L 35-104 [facility] Serum or plasma calcium chad urement (mass/volume)Ordered By: Maurilio Castillo on 02-01-2025 Calcium [Mass/Vol] 10.1 mg/dL 7.6-11.0 [facility] Serum or plasma cholesterol in HDL measurement (mass/volume)Ordered By: Maurilio Castillo on 02-01-2025 Cholesterol in HDL [Mass/Vol] 91 mg/dL >40 [facility] Comment on above: National Cholesterol Education Program (NCEP) guidelines:<40 mg/dL: Low HDL-cholesterol (major risk factor for CHD)>= 60 mg/dL: High HDL-cholesterol (negative risk factor for CHD)HDL-cholesterol is affected by a number of factors, e.g. smoking, exercise, hormones, sex and age. Serum or plasma cholesterol measurement (mass/volume)Ordered By: Maurilio Castillo on 02-01-2025 Cholesterol [Mass/Vol] 244 mg/dL High <201 [facility] Comment on above: Cholesterol level, D esirable <200 mg/dLBorderline high cholesterol 200-239 mg/dLHigh cholesterol >=240 mg/dLRecommendations of the NCEP Adult Treatment Panel for the following risk-cutoff thresholds for the [place] population. Serum or plasma urea nitroge n measurement (mass/volume)Ordered By: Maurilio Castillo on 02-01-2025 Urea nitrogen [Mass/Vol] 19 mg/dL 4-19 [facility] Sodium levelOrdered By: Maurilio Castillo on 02-01-2025 Sodium [Moles/Vol] 140 mmol/L 133-145 [facility] Squamous epithelial cells de tection in urine sediment by light microscopyOrdered By: Maurilio Castillo on 02-01-2025 Epithelial cells.squamous LM Ql (Urine sed) 0-5 SEEN /hpf 5-10 [facility] Total proteinOrdered By: Darrel Castillo on 02-01-2025 Protein [Mass/Vol] 7.0 g/dL 5.9-8.4 [facility] Triglycerides measurementOrd ered By: Maurilio Castillo on 02-01-2025 Triglyceride [Mass/Vol] 71 mg/dL <199 [facility] Comment on above: The drugs N-Acetylcy steine and Metamizole may falsely depress this assay. Normal range: <150 mg/dLBorderline High: 150-199 mg/dLHigh: 200-499 mg/dLVery High: >500 mg/dL Urinalysis, Completeon 02-01 EPI,SQUAMOUS 0-5 SEEN Normal -10 [facility] Comment on above: Order Comment: CLEAN CATCH Performed By: #### L 400.0001, L501.0900 #### [facility] [address] [place], [address] RBC 0-5 SEEN Normal 0-5 [facility] Comment on above: Order Comment: CLEAN CATCH Performed By: #### L 400.0001, L501.0900 #### [facility] [address] [place], [address] WBC 0-5 SEEN Normal 0-5 [facility] Comment on above: Order Comment: CLEAN CATCH Performed By: #### L 400.0001, L501.0900 #### [facility] [address] [place], [address] BACTERIA 0 SEEN Normal None Seen [facility] Comment on above: Order Comment: CLEAN CATCH Performed By: #### L 400.0001, L501.0900 #### [facility] [address] [place], [address] Mucus Ql (Urine sed) 0 SEEN Normal [facility] Comment on above: Order Comment: CLEAN CATCH Performed By: #### L 400.0001, L501.0900 #### [facility] [address] [place], [address] Urine clarityOrdered By: Darrel Castillo on 02-01-2025 Clarity (U) Clear Clear [facility] Urine color determinationOrd ered By: Maurilio Castillo on 02-01-2025 Color (U) Yellow Yellow [facility] Urine glucose detectionOrder ed By: Maurilio Castillo on 02-01-2025 Glucose Ql (U) Normal mg/dl Normal [facility] Urine leukocyte esterase det ection by dipstickOrdered By: Maurilio Castillo on 02-01-2025 Leukocyte esterase Test strip Ql (U) Negative Negative [facility] Urine pHOrdered By: Maurilio mirza on 02-01-2025 pH (U) 8.0 [pH] 5.0 - 8.0 [facility] Urine protein measurement (m ass/volume)Ordered By: Maurilio Castillo on 02-01-2025 Protein (U) [Mass/Vol] 23.4 mg/dL High 0.0-12.0 [facility] Urine protein/creatinine mas s ratioOrdered By: Maurilio Castillo on 02-01-2025 Protein/Creatinine (U) [Mass ratio] 138 mg/g CRE 0-200 [facility] Urine sediment bacteria coun t by microscopy (number/high power field)Ordered By: Maurilio Castillo on 02-01-2025 Bacteria LM.HPF (Urine sed) [#/Area] 0 /[HPF] None Seen [facility] Urine specific gravity measu rementOrdered By: Maurilio Castillo on 02-01-2025 Specific gravity (U) [Rel density] 1.015 1.002-1.03 0 [facility] Urine urobilinogen measureme ntOrdered By: Maurilio Castillo on 02-01-2025 Urobilinogen Ql (U) Normal mg/dl Normal [facility] Vitamin D,25 Hydroxyon 02-01 Vitamin D 25-OH 46.0 ng/mL Normal 30-100 [facility] Comment on above: Order Comment: Order Date: 02/01/25 Order Info: 0786-1 - CMP Order Info: [id number] - LIPID Result Comment: Oksana min D Status Deficiency: <20 ng/mL (50nmol/L) Insufficiency: 20-30 ng/mL (50-75 nmol/L) Sufficiency: 30-100 ng/mL (75-250 nmol/L) Toxicity: >100 ng/mL (>250 nmol/L) Performed By: #### L 506.1001 #### [facility] [address] [place], [place], [address] White blood cell (WBC) count Ordered By: Maurilio Castillo on 02-01-2025 WBC (Bld) [#/Vol] 3.6 10*3/uL Low 4.4-11.0 [facility] White blood cell countOrdere d By: Maurilio Castillo on 02-01-2025 White blood cell count 0-5 SEEN /hpf 0-5 [facility] Bone density reportOrdered B y: Moody Green on 12-27-2024 Study report Skeletal system DXA [facility] Imaging Services [address] [place], [place] [id number] Dexa Bone Density Study MR#: [id number] Acct: [id number] Name: MAYA CURRY Rep #: [id number] : 1950 F 74 From: Lorrie Green MD PCP: Dr. Maurilio Castillo MD Status: RE G CLI Study:Dexa Bone Density Study Date of Exam: 12/21/24 Exam# [id number] Ordering Dr: Maurilio Castillo MD PROCEDURE: DEXA [...] of the [employer] [place] for Metabolic Bone Disease, World Health Organization (WHO) Collaborating [place]. 1-Major Osteoporotic Fracture: Clinical Spine, Forearm, Hip [...] 3. Additional description as above. Reading Location: [id number] CC: Dr. Maurilio Castillo MD ~ Supervisor [place]: Signed [facility] Breast imaging reportOrdered By: Nola Gomes on 12-22-2024 Study report [facility] Imaging Services [address] [place], [place] [id number] SCRN MAMM (CAD)W/LEBRON CHRISTINA MR#: [id number] Acct: [id number] Name: MAYA CURRY Rep #: [id number] : 1950 F 74 From: Yuki Gomes MD PCP: Dr. Maurilio Castillo MD Status: RE G CLI Study:SCRN MAMM (CAD)W/LEBRON BILAT Date of Exa m: 12/21/24 Exam# [id number] Ordering Dr: Maurilio Castillo MD EXAM: SCRN [...] be mailed to the patient. Reading Location: [facility] CC: Dr. Maurilio Castillo MD ~ Supervisor [place]: Signed [facility] Dexa Bone Density Studyon Dexa Bone Density Study [facility] Imaging Services [address] [place] [id number] Dexa Bone Density Study MR#: [id number] Acct: [id number] Name: MAYA CURRY Rep #: [id number] : 1950 F 74 From: Moody Green MD PCP: Dr. Maurilio Castillo MD Status: REG CLI Study: Dexa Bone Density Study Date of Exam: 12/21/24 Exam# [id number] Ordering Dr: Maurilio Castillo MD PROCEDURE: DEXA BONE DENSITY STUDY REASON FOR EXAM: None provided TECHNIQUE: DEXA scan of the lumbar spine and bilateral hips, using a Hologic Horizon W unit. [facility] COMPARISON: 12/11/2022 FINDINGS: LUMBAR SPINE: [...] is a trademark of the [employer]'s [place] for Metabolic Bone Disease, World Health Organization (WHO) Collaborating [place]. 1-Major Osteoporotic Fracture: Clinical Spine, Forearm, Hip [...] 3. Additional description as above. Reading Location: [id number] CC: Dr. Maurilio Castillo MD Supervisor [place]: Signed Normal [facility] SCRN MAMM (CAD)W/LEBRON BILATo n 12-21-2024 SCRN MAMM (CAD)W/LEBRON BILAT [facility] Imaging Services [address], [place] [address] SCRN MAMM (CAD)W/LEBRON BILAT MR#: [id number] Acct: [id number] Name: MAYA CURRY Rep #: [id number] : 1950 F 74 From: Nola Gomes MD PCP: Dr. Maurilio Castillo MD Status: [facility] CLI Study: SCRN MAMM (CAD)W/LEBRON BILAT Date of Exam: 11/24 05/19 Exam# [id number] Ordering Dr: Maurilio Castillo MD EXAM: SCRN MAMM (CAD)W/LEBRON BILAT 12/21/2024 CLINICAL HISTORY: F, Age 74 y/o , SCREENING. Personal history of right breast cancer in 2008 status post lumpectomy, axillary dissection radiation and [...] be mailed to the patient. Reading Location: [id number] CC: Dr. Maurilio Castillo MD Supervisor [place]: Signed Normal [facility] Absolute lymphocyte countOrd ered By: Maurilio Castillo on 10-06-2024 Lymphocytes Auto (Unsp spec) [#/Vol] 1.51 10*3/uL 0.83-4.51 [facility] Absolute neutrophil countOrd ered By: Maurilio Castillo on 10-06-2024 Neutrophils (Bld) [#/Vol] 2.4 10*3/uL 2.0-7.7 [facility] Albumin to globulin ratioOrd ered By: Maurilio Castillo on 10-06-2024 Albumin/Globulin [Mass ratio] 1.1 {ratio} 0.9-2.4 [facility] Automated lymphocyte count a s percentage of total leukocytesOrdered By: Maurilio Castillo on 10-06-2024 Lymphocytes/100 WBC Auto (Unsp spec) 33.2 % 19-41 [facility] Basophil percentageOrdered B y: Maurilio Castillo on 10-06-2024 Basophils/100 WBC (Bld) 1.1 % High 0-1 [facility] Bilirubin, totalOrdered By: Maurilio Castillo on 10-06-2024 Bilirubin [Mass/Vol] 0.30 mg/dL 0.20-1.00 [facility] Comment on above: For patients on eltr ombopag therapy, use of Dimension [place] TBIL is not recommended. Blood urea nitrogen (BUN)/cr eatinine ratioOrdered By: Maurilio Castillo on 10-06-2024 Urea nitrogen/Creatinine [Mass ratio] 20.9 mg/mg High 10-20 [facility] CBC W/Diff, Automatedon 09-25 Absolute Lymph 1.51 X10 3/uL Normal 0.83-4.51 [facility] Comment on above: Order Comment: Order Date: 10/06/24 Order Info: 0184-1 - CBCD Performed By: #### L 506.1000, L509.1000, L500.4100, L100.0100, L500.4050 #### [facility] [address] [place], [address] Absolute Neut 2.4 X10 3/uL Normal 2.0-7.7 [facility] Comment on above: Order Comment: Order Date: 10/06/24 Order Info: 0184-1 - CBCD Performed By: #### L 506.1000, L509.1000, L500.4100, L100.0100, L500.4050 #### [facility] [address] [place], [address] Basophils/100 WBC (Bld) 1.1 % High 0-1 [facility] Comment on above: Order Comment: Order Date: 10/06/24 Order Info: 0184-1 - CBCD Performed By: #### L 506.1000, L509.1000, L500.4100, L100.0100, L500.4050 #### [facility] [address] [place], [address] Eosinophils/100 WBC (Bld) 2.4 % Normal 0-5 [facility] Comment on above: Order Comment: Order Date: 10/06/24 Order Info: 0184- - CBCD Performed By: #### L 506.1000, L509.1000, L500.4100, L100.0100, L500.4050 #### [facility] [address] [place], [address] Erythrocyte distribution width (RBC) [Ratio] 14.6 % Normal 11.6-14.6 [facility] Comment on above: Order Comment: Order Date: 10/06/24 Order Info: 0184- - CBCD Performed By: #### L 506.1000, L509.1000, L500.4100, L100.0100, L500.4050 #### [facility] [address] [place], [address] Hematocrit (Bld) [Volume fraction] 40.2 % Normal 37-47 [facility] Comment on above: Order Comment: Order Date: 10/06/24 Order Info: 0184-1 - CBCD Performed By: #### L 506.1000, L509.1000, L500.4100, L100.0100, L500.4050 #### [facility] [address] [place], [address] Hemoglobin (Bld) [Mass/Vol] 12.4 g/dL Normal 12.0-15.0 [facility] Comment on above: Order Comment: Order Date: 10/06/24 Order Info: 01811-23 - CBCD Performed By: #### L 506.1000, L509.1000, L500.4100, L100.0100, L500.4050 #### [facility] [address] [place], [address] IG% 0.200 Normal 0.0-0.9 [facility] Comment on above: Order Comment: Order Date: 10/06/24 Order Info: [id number] - CBCD Result Comment: IG% - Immature Granulocytes (promyelocytes, myelocytes and metamyelocytes) > 1% indicates that a LEFT SHIFT is Present. Performed By: #### L 506.1000, L509.1000, L500.4100, L100.0100, L500.4050 #### [facility] [address] [place], [address] Lymphocytes/100 WBC (Bld) 33.2 % Normal 19-41 [facility] Comment on above: Order Comment: Order Date: 10/06/24 Order Info: 018- - CBCD Performed By: #### L 506.1000, L509.1000, L500.4100, L100.0100, L500.4050 #### [facility] [address] [place], [address] MCH (RBC) [Entitic mass] 28.9 pg Normal 27.0-32.0 [facility] Comment on above: Order Comment: Order Date: 10/06/24 Order Info: 0184- - CBCD Performed By: #### L 506.1000, L509.1000, L500.4100, L100.0100, L500.4050 #### [facility] [address] [place], [address] MCHC (RBC) [Mass/Vol] 30.8 g/dL Low 32-36 [facility] Comment on above: Order Comment: Order Date: 10/06/24 Order Info: 0184-1 - CBCD Performed By: #### L 506.1000, L509.1000, L500.4100, L100.0100, L500.4050 #### [facility] [address] [place], [address] MCV (RBC) [Entitic vol] 93.7 fL Normal 81-99 [facility] Comment on above: Order Comment: Order Date: 10/06/24 Order Info: 0184-1 - CBCD Performed By: #### L 506.1000, L509.1000, L500.4100, L100.0100, L500.4050 #### [facility] [address] [place], [address] Monocytes/100 WBC (Bld) 9.9 % Normal 0-10 [facility] Comment on above: Order Comment: Order Date: 10/06/24 Order Info: 0184-1 - CBCD Performed By: #### L 506.1000, L509.1000, L500.4100, L100.0100, L500.4050 #### [facility] [address] [place], [address] Neutrophils/100 WBC (Bld) 53.2 % Normal 47-70 [facility] Comment on above: Order Comment: Order Date: 10/06/24 Order Info: 0184-1 - CBCD Performed By: #### L 506.1000, L509.1000, L500.4100, L100.0100, L500.4050 #### [facility] [address] [place], [address] Nucleated RBC (Bld) [#/Vol] 0 10*3/uL Normal 0-5 [facility] Comment on above: Order Comment: Order Date: 10/06/24 Order Info: 0184-1 - CBCD Performed By: #### L 506.1000, L509.1000, L500.4100, L100.0100, L500.4050 #### [facility] [address] [place], [address] Platelet mean volume (Bld) [Entitic vol] 10.2 fL Normal 6.2-12.0 [facility] Comment on above: Order Comment: Order Date: 10/06/24 Order Info: 0184- - CBCD Performed By: #### L 506.1000, L509.1000, L500.4100, L100.0100, L500.4050 #### [facility] [address] [place], [address] Platelets (Bld) [#/Vol] 308 10*3/uL Normal 150-450 [facility] Comment on above: Order Comment: Order Date: 10/06/24 Order Info: 0184- - CBCD Performed By: #### L 506.1000, L509.1000, L500.4100, L100.0100, L500.4050 #### [facility] [address] [place], [address] RBC (Bld) [#/Vol] 4.29 10*6/uL Normal 4.2-5.4 [facility] Comment on above: Order Comment: Order Date: 10/06/24 Order Info: 0184- - CBCD Performed By: #### L 506.1000, L509.1000, L500.4100, L100.0100, L500.4050 #### [facility] [address] [place], [address] RDW SD 49.7 fl High 35.1-43.9 [facility] Comment on above: Order Comment: Order Date: 10/06/24 Order Info: 0184-1 - CBCD Performed By: #### L 506.1000, L509.1000, L500.4100, L100.0100, L500.4050 #### [facility] [address] [place], [place], [id number] WBC (Bld) [#/Vol] 4.6 10*3/uL Normal 4.4-11.0 [facility] Comment on above: Order Comment: Order Date: 10/06/24 Order Info: 0184-1 - CBCD Performed By: #### L 506.1000, L509.1000, L500.4100, L100.0100, L500.4050 #### [facility] [address] [place], [address] Carbon dioxide measurementOr dered By: Maurilio Castillo on 10-06-2024 CO2 [Moles/Vol] 27.0 mmol/L 21.0-32.0 [facility] Chloride measurementOrdered By: Maurilio Castillo on 10-06-2024 Chloride [Moles/Vol] 103 mmol/L 98-107 [facility] Comprehensive Metabolic Prof ilon 10-06-2024 Albumin [Mass/Vol] 3.6 g/dL Normal 3.2-5.0 [facility] Comment on above: Order Comment: Order Date: 10/06/24 Order Info: 0786-1 - CMP Order Info: [id number] - LIPID Performed By: #### L 506.1000, L509.1000, L500.4100, L100.0100, L500.4050 #### [facility] [address] [place], [address] Albumin/Globulin [Mass ratio] 1.1 {ratio} Normal 0.9-2.4 [facility] Comment on above: Order Comment: Order Date: 10/06/24 Order Info: 0786-1 - CMP Order Info: [id number] - LIPID Performed By: #### L 506.1000, L509.1000, L500.4100, L100.0100, L500.4050 #### [facility] [address] [place], [address] ALK P 87 U/L Normal 45-117 [facility] Comment on above: Order Comment: Order Date: 10/06/24 Order Info: 0786-1 - CMP Order Info: [id number] - LIPID Performed By: #### L 506.1000, L509.1000, L500.4100, L100.0100, L500.4050 #### [facility] [address] [place], [address] ALT [Catalytic activity/Vol] 18 U/L Normal 13-56 [facility] Comment on above: Order Comment: Order Date: 10/06/24 Order Info: 0786- - CMP Order Info: [id number] - LIPID Performed By: #### L 506.1000, L509.1000, L500.4100, L100.0100, L500.4050 #### [facility] [address] [place], [place], [id number] AST [Catalytic activity/Vol] 21 U/L Normal 15-37 [facility] Comment on above: Order Comment: Order Date: 10/06/24 Order Info: 0786-1 - CMP Order Info: [id number] - LIPID Performed By: #### L 506.1000, L509.1000, L500.4100, L100.0100, L500.4050 #### [facility] [address] [place], [address] Bilirubin [Mass/Vol] 0.30 mg/dL Normal 0.20-1.00 [facility] Comment on above: Order Comment: Order Date: 10/06/24 Order Info: 0786-1 - CMP Order Info: [id number] - LIPID Result Comment: For patients on eltrombopag therapy, use of Dimension [place] TBIL is not recommended. Performed By: #### L 506.1000, L509.1000, L500.4100, L100.0100, L500.4050 #### [facility] [address] [place], [address] BUN/CRE 20.9 RATIO High 10-20 [facility] Comment on above: Order Comment: Order Date: 10/06/24 Order Info: 0786-1 - CMP Order Info: [id number] - LIPID Performed By: #### L 506.1000, L509.1000, L500.4100, L100.0100, L500.4050 #### [facility] [address] [place], [address] CA,Total 9.2 mg/dL Normal 8.5-10.1 [facility] Comment on above: Order Comment: Order Date: 10/06/24 Order Info: 0786- - CMP Order Info: [id number] - LIPID Performed By: #### L 506.1000, L509.1000, L500.4100, L100.0100, L500.4050 #### [facility] [address] [place], [address] Chloride [Moles/Vol] 103 mmol/L Normal 98-107 [facility] Comment on above: Order Comment: Order Date: 10/06/24 Order Info: 0786- - CMP Order Info: [id number] - LIPID Performed By: #### L 506.1000, L509.1000, L500.4100, L100.0100, L500.4050 #### [facility] [address] [place], [address] CO2 [Moles/Vol] 27.0 mmol/L Normal 21.0-32.0 [facility] Comment on above: Order Comment: Order Date: 10/06/24 Order Info: 0786-1 - CMP Order Info: [id number] - LIPID Performed By: #### L 506.1000, L509.1000, L500.4100, L100.0100, L500.4050 #### [facility] [address] [place], [address] Creatinine [Mass/Vol] 1.10 mg/dL High 0.55-1.02 [facility] Comment on above: Order Comment: Order Date: 10/06/24 Order Info: 0786-1 - CMP Order Info: [id number] - LIPID Result Comment: The validity of the calculated GFR GFRAA in patients over 70 years has not been determined. Clinical correlation is essential. Performed By: #### L 506.1000, L509.1000, L500.4100, L100.0100, L500.4050 #### [facility] [address] [place], [address] EST GFR - AA 62 mL/min Normal >60 [facility] Comment on above: Order Comment: Order Date: 10/06/24 Order Info: 0786 - CMP Order Info: [id number] - LIPID Result Comment: Afri can Syrian GFR Calc Performed By: #### L 506.1000, L509.1000, L500.4100, L100.0100, L500.4050 #### [facility] [address] [place], [address] GAP 7 Normal 5-15 [facility] Comment on above: Order Comment: Order Date: 10/06/24 Order Info: 0786- - CMP Order Info: [id number] - LIPID Performed By: #### L 506.1000, L509.1000, L500.4100, L100.0100, L500.4050 #### [facility] [address] [place], [place], [id number] [phone] GFR/1.73 sq M.predicted among non-blacks MDRD (S/P/Bld) [Vol rate/Area] 52 mL/min/{1.73_m2} Low >60 [facility] Comment on above: Order Comment: Order Date: 10/06/24 Order Info: 0786- - CMP Order Info: [id number] - LIPID Result Comment: Non- GFR Calc Performed By: #### L 506.1000, L509.1000, L500.4100, L100.0100, L500.4050 #### [facility] [address] [place], [address] Globulin (S) [Mass/Vol] 3.2 g/dL Normal 2.2-4.2 [facility] Comment on above: Order Comment: Order Date: 10/06/24 Order Info: 0786- - CMP Order Info: [id number] - LIPID Performed By: #### L 506.1000, L509.1000, L500.4100, L100.0100, L500.4050 #### [facility] [address] [place], [address] Glucose [Mass/Vol] 77 mg/dL Normal 74-106 [facility] Comment on above: Order Comment: Order Date: 10/06/24 Order Info: 0786 - CMP Order Info: [id number] - LIPID Performed By: #### L 506.1000, L509.1000, L500.4100, L100.0100, L500.4050 #### [facility] [address] [place], [address] Potassium [Moles/Vol] 3.8 mmol/L Normal 3.5-5.1 [facility] Comment on above: Order Comment: Order Date: 10/06/24 Order Info: 0786- - CMP Order Info: [id number] - LIPID Performed By: #### L 506.1000, L509.1000, L500.4100, L100.0100, L500.4050 #### [facility] [address] [place], [address] Sodium [Moles/Vol] 137 mmol/L Normal 136-145 [facility] Comment on above: Order Comment: Order Date: 10/06/24 Order Info: 0786- - CMP Order Info: [id number] - LIPID Performed By: #### L 506.1000, L509.1000, L500.4100, L100.0100, L500.4050 #### [facility] [address] [place], [address] T PROT 6.8 g/dL Normal 6.4-8.2 [facility] Comment on above: Order Comment: Order Date: 10/06/24 Order Info: 0786-1 - CMP Order Info: [id number] - LIPID Performed By: #### L 506.1000, L509.1000, L500.4100, L100.0100, L500.4050 #### [facility] [address] [place], [place], [address] Urea nitrogen [Mass/Vol] 23 mg/dL High 7-18 [facility] Comment on above: Order Comment: Order Date: 10/06/24 Order Info: 0786-1 - CMP Order Info: [id number] - LIPID Performed By: #### L 506.1000, L509.1000, L500.4100, L100.0100, L500.4050 #### [facility] [address] [place], [place], [address] Eosinophil percentageOrdered By: Maurilio Castillo on 10-06-2024 Eosinophils/100 WBC (Bld) 2.4 % 0-5 [facility] Erythrocyte distribution wid th ratioOrdered By: Maurilio Castillo on 10-06-2024 Erythrocyte distribution width (RBC) [Ratio] 14.6 % 11.6-14.6 [facility] Erythrocyte distribution wid th standard deviationOrdered By: Maurilio Castillo on 10-06-2024 Erythrocyte distribution width (RBC) [Ratio] 49.7 fl High 35.1-43.9 [facility] Glomerular filtration rate ( GFR) estimationOrdered By: Maurilio Castillo on 10-06-2024 GFR/1.73 sq M.predicted among non-blacks MDRD (S/P/Bld) [Vol rate/Area] 52 mL/min/{1.73_m2} Low >60 [facility] Comment on above: Non- GFR Calc Glucose measurementOrdered B y: Maurilio Castillo on 10-06-2024 Glucose [Mass/Vol] 77 mg/dL 74-106 [facility] Hematocrit Auto (Bld) [Volum e fraction]Ordered By: Maurilio Castillo on 10-06-2024 Hematocrit (Bld) [Volume fraction] 40.2 % 37-47 [facility] Hemoglobin measurementOrdere d By: Maurilio Castillo on 10-06-2024 Hemoglobin (Bld) [Mass/Vol] 12.4 g/dL 12.0-15.0 [facility] High density lipoprotein (HD L) measurementOrdered By: Maurilio Castillo on 10-06-2024 Cholesterol in HDL [Mass/Vol] 96 mg/dL >40 [facility] Comment on above: The drugs N-Acetylcy steine and Metamizole may falsely depress this assay. Reference Range HDL <40 mg/dL Low HDL Cholesterol HDL >or= 60 mg/dL High HDL Cholesterol Immature granulocytes/100 WB C Auto (Bld)Ordered By: Maurilio Castillo on 10-06-2024 Immature granulocytes/100 WBC (Bld) 0.200 % 0.0-0.9 [facility] Comment on above: IG% - Immature Granu locytes (promyelocytes, myelocytes and metamyelocytes) > 1% indicates that a LEFT SHIFT is Present. Laboratory - Chemistry and C hemistry - challengeOrdered By: Maurilio Castillo on 10-06-2024 AST [Catalytic activity/Vol] 21 U/L 15-37 [facility] Lipid Profileon 10-06-2024 Cholesterol [Mass/Vol] 241 mg/dL High 200 [facility] Comment on above: Order Comment: Order Date: 10/06/24 Order Info: 0786-1 - CMP Order Info: [id number] - LIPID Result Comment: <200 mg/dL Desirable 200-240 mg/dL Borderline >240 mg/dL High Risk Performed By: #### L 506.1000, L509.1000, L500.4100, L100.0100, L500.4050 #### [facility] [address] [place], [place], [address] Cholesterol in HDL [Mass/Vol] 96 mg/dL Normal [facility] Comment on above: Order Comment: Order Date: 10/06/24 Order Info: 0786-1 - CMP Order Info: [id number] - LIPID Result Comment: The drugs N-Acetylcysteine and Metamizole may falsely depress this assay. Reference Range HDL <40 mg/dL Low HDL Cholesterol HDL >or= 60 mg/dL High HDL Cholesterol Performed By: #### L 506.1000, L509.1000, L500.4100, L100.0100, L500.4050 #### [facility] [address] [place], [address] Cholesterol in LDL [Mass/Vol] 123 mg/dL Normal 0-130 [facility] Comment on above: Order Comment: Order Date: 10/06/24 Order Info: 0786-1 - [facility] Order Info: [id number] - LIPID Performed By: #### L 506.1000, L509.1000, L500.4100, L100.0100, L500.4050 #### [facility] [address] [place], [address] Cholesterol in VLDL [Mass/Vol] 22 mg/dL Normal 5-40 [facility] Comment on above: Order Comment: Order Date: 10/06/24 Order Info: 0786-1 - [facility] Order Info: [id number] - LIPID Performed By: #### L 506.1000, L509.1000, L500.4100, L100.0100, L500.4050 #### [facility] Laboratory [address] [place], [address] Triglyceride [Mass/Vol] 112 mg/dL Normal [facility] Comment on above: Order Comment: Order Date: 10/06/24 Order Info: [id number] - [facility] Order Info: [id number] - LIPID Result Comment: The drugs N-Acetylcysteine and Metamizole may falsely depress this assay. Serum Triglycerides Reference Interval Normal <150 mg/dL Borderline high 150 - 199 mg/dL High 200 - 499 mg/dL Very High > or = 500 mg/dL Performed By: #### L 506.1000, L509.1000, L500.4100, L100.0100, L500.4050 #### [facility] Laboratory [address] [place], [address] Low density lipoprotein (LDL ) cholesterol measurementOrdered By: Maurilio Castillo on 10-06-2024 Cholesterol in LDL [Mass/Vol] 123 mg/dL 0-130 [facility] MCV (mean corpuscular volume ) determinationOrdered By: Maurilio Castillo on 10-06-2024 MCV (RBC) [Entitic vol] 93.7 fL 81-99 [facility] Mean corpuscular hemoglobin (MCH) determinationOrdered By: Maurilio Castillo on 10-06-2024 MCH (RBC) [Entitic mass] 28.9 pg 27.0-32.0 [facility] Mean corpuscular hemoglobin concentration (MCHC) determinationOrdered By: Maurilio Castillo on 10-06-2024 MCHC (RBC) [Mass/Vol] 30.8 g/dL Low 32-36 [facility] Mean platelet volume determi nationOrdered By: Maurilio Castillo on 10-06-2024 Platelet mean volume (Bld) [Entitic vol] 10.2 fL 6.2-12.0 [facility] Microalbumin,Random Urineon 10-06-2024 MICROALBUMIN,UR 28.0 mg/L Normal NO RANGE EST. [facility] Comment on above: Performed By: #### L 501.0900, L502.0500 #### [facility] Laboratory [address] [place] [address], [address] Monocyte percentageOrdered B y: Maurilio Castillo on 10-06-2024 Monocytes/100 WBC (Bld) 9.9 % 0-10 [facility] Neutrophil percentageOrdered By: Maurilio Castillo on 10-06-2024 Neutrophils/100 WBC (Bld) 53.2 % 47-70 [facility] Nucleated red blood cell per centageOrdered By: Maurilio Castillo on 10-06-2024 Nucleated RBC/100 WBC (Bld) [Ratio] 0 % 0-5 [facility] PTHINon 10-06-2024 PTH 72.3 pg/mL Normal 18.4-80.1 [facility] Comment on above: Order Comment: Order Date: 10/06/24 Order Info: [id number] - PTHIN Performed By: #### L 506.1000, L509.1000, L500.4100, L100.0100, L500.4050 #### [facility] Laboratory [address] [place], [address] Platelet countOrdered By: Ashley Castillo on 10-06-2024 Platelets (Bld) [#/Vol] 308 10*3/uL 150-450 [facility] Potassium measurementOrdered By: Maurilio Castillo on 10-06-2024 Potassium [Moles/Vol] 3.8 mmol/L 3.5-5.1 [facility] Protein+Creatinine Ratio,Uri neon 10-06-2024 PROT:CRE RATIO 89 mg/g CRE Normal 0-200 [facility] Comment on above: Performed By: #### L 501.0900, L502.0500 #### [facility] Laboratory [address] [place], [address] Protein (U) [Mass/Vol] 26.3 mg/dL High <11.9 [facility] Comment on above: Performed By: #### L 501.0900, L502.0500 #### [facility] [address] [place], [address] UR CREAT 296.00 mg/dL Normal NO RANGE EST. [facility] Comment on above: Performed By: #### L 501.0900, L502.0500 #### [facility] Laboratory [address] [place], [address] RBC Auto (Bld) [#/Vol]Ordere d By: Maurilio Castillo on 10-06-2024 RBC (Bld) [#/Vol] 4.29 10*6/uL 4.2-5.4 [facility] Random urine protein measure mentOrdered By: Maurilio Castillo on 10-06-2024 Protein (U) [Mass/Vol] 26.3 mg/dL High 0.0-11.8 [facility] Serum anion gap measurementO rdered By: Maurilio Castillo on 10-06-2024 Anion gap [Moles/Vol] 7 mmol/L 5-15 [facility] Serum globulin measurementOr dered By: Maurilio Castillo on 10-06-2024 Globulin (S) [Mass/Vol] 3.2 g/dL 2.2-4.2 [facility] Serum or plasma alanine quigley otransferase (ALT) measurementOrdered By: Maurilio Castillo on 10-06-2024 ALT [Catalytic activity/Vol] 18 U/L 13-56 [facility] Serum or plasma albumin chad urement (mass/volume)Ordered By: Maurilio Castillo on 10-06-2024 Albumin [Mass/Vol] 3.6 g/dL 3.2-5.0 [facility] Serum or plasma alkaline john sphatase measurementOrdered By: Maurilio Castillo on 10-06-2024 ALP [Catalytic activity/Vol] 87 U/L 45-117 [facility] Serum or plasma calcium chad urement (mass/volume)Ordered By: Maurilio Castillo on 10-06-2024 Calcium [Mass/Vol] 9.2 mg/dL 8.5-10.1 [facility] Serum or plasma cholesterol measurement (mass/volume)Ordered By: Maurilio Castillo on 10-06-2024 Cholesterol [Mass/Vol] 241 mg/dL High <200 [facility] Comment on above: <200 mg/dL Desirable 200-240 mg/dL Borderline >240 mg/dL High Risk Serum or plasma creatinine m easurement (mass/volume)Ordered By: Maurilio Castillo on 10-06-2024 Creatinine [Mass/Vol] 1.10 mg/dL High 0.55-1.02 [facility] Comment on above: The validity of the calculated GFR & GFRAA in patients over 70 years has not been determined. Clinical correlation is essential. Serum or plasma urea nitroge n measurement (mass/volume)Ordered By: Maurilio Castillo on 10-06-2024 Urea nitrogen [Mass/Vol] 23 mg/dL High 7-18 [facility] Sodium levelOrdered By: Maurilio Castillo on 10-06-2024 Sodium [Moles/Vol] 137 mmol/L 136-145 [facility] Total proteinOrdered By: Darrel Castillo on 10-06-2024 Protein [Mass/Vol] 6.8 g/dL 6.4-8.2 [facility] Triglycerides measurementOrd ered By: Maurilio Castillo on 10-06-2024 Triglyceride [Mass/Vol] 112 mg/dL <199 [facility] Comment on above: The drugs N-Acetylcy steine and Metamizole may falsely depress this assay.Serum Triglycerides Reference Interval Normal <150 mg/dL Borderline high 150 - 199 mg/dL High 200 - 499 mg/dL Very High > or = 500 mg/dL Urine creatinine measurement (mass/volume)Ordered By: Maurilio Castillo on 10-06-2024 Creatinine (U) [Mass/Vol] 296.00 mg/dL NO RANGE EST. [facility] Urine protein/creatinine mas s ratioOrdered By: Maurilio Castillo on 10-06-2024 Protein/Creatinine (U) [Mass ratio] 89 mg/g CRE 0-200 [facility] Very low density lipoprotein (VLDL) cholesterol measurementOrdered By: Maurilio Castillo on 10-06-2024 Very low density lipoprotein (VLDL) cholesterol measurement 22 mg/dL 5-40 [facility] Vitamin D,25 Hydroxyon 10-06 Vitamin D 25-OH 35.4 ng/mL Normal [facility] Comment on above: Order Comment: Order Date: 10/06/24 Order Info: [id number] - VITD25 Result Comment: Oksana min D 25(OH) Status Range Deficiency <20 ng/mL (50nmol/L) Insufficiency 20 - 30 ng/mL (50 - 75 nmol/L) Sufficiency 30 - 100 ng/mL (75 - 250 nmol/L) Toxicity >100 ng/mL (>250 nmol/L) Performed By: #### L 506.1000, L509.1000, L500.4100, L100.0100, L500.4050 #### [facility] Laboratory [address] [place], [address] White blood cell (WBC) count Ordered By: Maurilio Castillo on 10-06-2024 WBC (Bld) [#/Vol] 4.6 10*3/uL 4.4-11.0 [facility] Inital Evaluation (1) - PTon 09-14-2024 Inital Evaluation (1) - PT [facility] Physical Therapy [facility] [address] [place] [address]. [address] [place] [address] / REHABILITATION SERVICES INITIAL EVALUATION MR#: [id number] Acct: [id number] Name: MAYA CURRY Rep #: [id number] : 1950 74 From: Mari Orozco PT, [...] FOR CONTIN (more content not included)... Normal [facility] Colonoscopy Reporton 024 Colonoscopy Report [facility] Medical Records Department [address] [place] [address] Colonoscopy Report MR#: [id number] Acct: [id number] Name: MAYA CURRY Rep #: [id number] : 1950 74 From: Za Dhaliwal MD PCP: Dr. Maurilio Castillo MD Status:REG [facility] Patient Name: Maya Curry Procedure Date: 07/12/2024 [...] that time. 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 All rights reserved. The codes documented in this report are preliminary and upon dental practitioner review may be revised to meet current compliance requirements. MD Za Mahajan MD 07/12/2024 9:40:51 AM This report has been signed electronically. Number of Addenda: 0 Note Initiated On: 07/12/2024 9:06 AM 07/12/24939 Date Za Dhaliwal MD Cosigner Signature: Date (if indicated) CC: Dr. Maurilio Castillo MD; Dr. Za Dhaliwal MD Date Dictated: 07/12/24905 Date Transcribed: Supervisor [employer]: MICHELLE Signed [facility] MR/POSTOP.Rossi 07-12-2024 MR/POSTOP.[facility] Medical Records Department [address] [place] [address] Anesthesia Postop Eval I 07/12/24944 MR#: [id number] Acct: [id number] Name: MAYA CURRY Rep #: [id number] : 1950 74 From: Cheng Beltre PCP: Dr. Maurilio Castillo MD Status:REG [facility] Y Race: C Location: [place] [address] Anesthesia: Postop Eval I Current Vital Signs [...] Cheng Rodney Signature: Date CC: Signed Normal [facility] MR/[id number] 07-12-2024 [facility] Medical Records Department [address] [place] [address] Anesthesia Postop Eval II 07/12/24 1010 MR#: [id number] Acct: [id number] Name: MAYA CURRY Rep #: [id number] : 1950 74 From: Luis Germain MD PCP: Dr. Maurilio Castillo MD Status:REG [facility] Y Race: C Location: [place] [address] Anesthesia Postop Eval I Sum Postop Eval [...] No Vomiting: No 07/12/24 1010 Date Luis Rodney Signature: Date CC: Signed Normal [facility] Surgery Specimen Level Elodia 07-12-2024 Surgery Specimen Level IV Patient Age/Sex Location Account Attending Physician MAYA CURRY 74/F EN [id number] Dr. Za Dhaliwal MD Specimen: [id number] Received: 07/12/24 Status: MISSY Brady Num: [id number] Spec Type: COLON BX Subm Dr: Dr. [...] patient's name and designated Ascending colon polyp biopsy. The specimen consists of multiple irregular fragments of booker soft tissue that in aggregate measure 0.7 x 0.5 x 0.2 cm. The specimen is totally submitted in one cassette. B. Received in fixative is one container labeled with the patient's name and designated Descending colon polyp biopsy. The specimen consists of one irregular fragment of booker soft tissue that measures 0.3cm in greatest dimension. The specimen is totally submitted in one cassette. 07/12/2024 TC:1 CPT:50458i7 Patient Age/Sex Location Account Attending Physician MAYA CURRY 74/F EN [id number] Dr. Za Dhaliwal MD Signed (signature on file) Dr. Wesley Rodriguez MD 07/13/246 Normal [facility] Comment on above: Performed By: #### L 506.1000, L509.1000, L500.4100, L100.0100, L500.4050 #### [facility] Laboratory [address] [place], [place], [address] Absolute lymphocyte countOrd ered By: Maurilio Castillo on 08-27-2023 Lymphocytes Auto (Unsp spec) [#/Vol] 1.10 10*3/uL 0.83-4.51 [facility] Basophil percentageOrdered B y: Maurilio Castillo on 08-27-2023 Basophil percentage 0 SEEN /hpf 0-5 [facility] Basophil percentage 3.5 mg/dL 2.5-4.9 [facility] Basophils/100 WBC (Bld) 1.1 % 0-1 [facility] Bilirubin [Mass/Vol] 0.40 mg/dL 0.20-1.00 [facility] Comment on above: For patients on eltr ombopag therapy, use of Dimension [place] TBIL is not recommended. Chloride [Moles/Vol] 106 mmol/L 98-107 [facility] Cholesterol [Mass/Vol] 187 mg/dL <200 [facility] Comment on above: <200 mg/dL Desirable 200-240 mg/dL Borderline >240 mg/dL High Risk Eosinophils/100 WBC (Bld) 2.6 % 0-5 [facility] Glucose [Mass/Vol] 76 mg/dL 74-106 [facility] Neutrophils (Bld) [#/Vol] 2.9 10*3/uL 2.0-7.7 [facility] Neutrophils/100 WBC (Bld) 62.8 % 47-70 [facility] Potassium [Moles/Vol] 4.4 mmol/L 3.5-5.1 [facility] Protein [Mass/Vol] 6.9 g/dL 6.4-8.2 [facility] Sodium [Moles/Vol] 140 mmol/L 136-145 [facility] Triglyceride [Mass/Vol] 53 mg/dL <199 [facility] Comment on above: The drugs N-Acetylcy steine and Metamizole may falsely depress this assay.Serum Triglycerides Reference Interval Normal <150 mg/dL Borderline high 150 - 199 mg/dL High 200 - 499 mg/dL Very High > or = 500 mg/dL WBC (Bld) [#/Vol] 4.7 10*3/uL 4.4-11.0 [facility] Bilirubin Test strip Ql (U)O rdered By: Maurilio Castillo on 08-27-2023 Bilirubin Ql (U) Negative Negative [facility] Blood erythrocytes count (nu mber/volume)Ordered By: Maurilio Castillo on 08-27-2023 RBC (Bld) [#/Vol] 4.35 10*6/uL 4.2-5.4 [facility] Blood hemoglobin measurement (mass/volume)Ordered By: Maurilio Castillo on 08-27-2023 Hemoglobin (Bld) [Mass/Vol] 12.3 g/dL 12.0-15.0 [facility] Blood lymphocytes/100 leukoc ytesOrdered By: Maurilio Castillo on 08-27-2023 Lymphocytes/100 WBC (Bld) 23.6 % 19-41 [facility] Blood monocytes/100 leukocyt esOrdered By: Maurilio Castillo on 08-27-2023 Monocytes/100 WBC (Bld) 9.7 % 0-10 [facility] Blood platelet mean volumeOr dered By: Maurilio Castillo on 08-27-2023 Platelet mean volume (Bld) [Entitic vol] 10.8 fL 6.2-12.0 [facility] Determination of erythrocyte mean corpuscular volume (MCV)Ordered By: Maurilio Castillo on 08-27-2023 MCV (RBC) [Entitic vol] 92.2 fL 81-99 [facility] Hematocrit Auto (Bld) [Volum e fraction]Ordered By: Maurilio Castillo on 08-27-2023 Hematocrit (Bld) [Volume fraction] 40.1 % 37-47 [facility] Ketones Test strip Ql (U)Ord ered By: Maurilio Castillo on 08-27-2023 Ketones Ql (U) 5 mg/dl Negative [facility] Laboratory - Chemistry and C hemistry - challengeOrdered By: Maurilio Castillo on 08-27-2023 ALP [Catalytic activity/Vol] 96 U/L 45-117 [facility] ALT [Catalytic activity/Vol] 23 U/L 13-56 [facility] CO2 [Moles/Vol] 30.0 mmol/L 21.0-32.0 [facility] Globulin (S) [Mass/Vol] 3.3 g/dL 2.2-4.2 [facility] Urea nitrogen/Creatinine [Mass ratio] 26.8 mg/mg 10-20 [facility] Laboratory - Hematology and Cell countsOrdered By: Maurilio Castillo on 08-27-2023 Erythrocyte distribution width (RBC) [Entitic vol] 49.4 fL 35.1-43.9 [facility] Erythrocyte distribution width (RBC) [Ratio] 14.6 % 11.6-14.6 [facility] Immature granulocytes/100 WBC (Bld) 0.200 % 0.0-0.9 [facility] Comment on above: IG% - Immature Granu locytes (promyelocytes, myelocytes and metamyelocytes) > 1% indicates that a LEFT SHIFT is Present. MCH (RBC) [Entitic mass] 28.3 pg 27.0-32.0 [facility] Nucleated RBC/100 WBC (Bld) [Ratio] 0 % 0-5 [facility] MCHC Auto (RBC) [Mass/Vol]Or dered By: Maurilio Castillo on 08-27-2023 MCHC (RBC) [Mass/Vol] 30.7 g/dL 32-36 [facility] Mucus LM Ql (Urine sed)Order ed By: Maurilio Castillo on 08-27-2023 Mucus Ql (Urine sed) 0 SEEN /hpf [facility] Nitrite Test strip Ql (U)Ord ered By: Maurilio Castillo on 08-27-2023 Nitrite Ql (U) Negative Negative [facility] No Panel InformationOrdered By: Maurilio Castillo on 08-27-2023 Estimated GFR (MDRD) Amer 72 mL/min >60 [facility] Comment on above: GFR Calc Estimated GFR (MDRD) Non-Af Amer 60 mL/min >60 [facility] Comment on above: Non- GFR Calc Parathyroid Hormone (Intact) 75.3 pg/mL 18.4-80.1 [facility] Vitamin D 25-Hydroxy 49.4 ng/mL [facility] Comment on above: Vitamin D 25(OH) Sta tus Range Deficiency <20 ng/mL (50nmol/L) Insufficiency 20 - 30 ng/mL (50 - 75 nmol/L) Sufficiency 30 - 100 ng/mL (75 - 250 nmol/L) Toxicity >100 ng/mL (>250 nmol/L) Platelets bldOrdered By: Darrel Castillo on 08-27-2023 Platelets (Bld) [#/Vol] 305 10*3/uL 150-450 [facility] Protein Test strip Ql (U)Ord ered By: Maurilio Castillo on 08-27-2023 Protein Ql (U) 15 mg/dl Negative [facility] Serum or plasma albumin chad urement (mass/volume)Ordered By: Maurilio Castillo on 08-27-2023 Albumin [Mass/Vol] 3.6 g/dL 3.2-5.0 [facility] Serum or plasma albumin/glob ulin mass ratioOrdered By: Maurilio Castillo on 08-27-2023 Albumin/Globulin [Mass ratio] 1.1 {ratio} 0.9-2.4 [facility] Serum or plasma calcium chad urement (mass/volume)Ordered By: Maurilio Castillo on 08-27-2023 Calcium [Mass/Vol] 9.6 mg/dL 8.5-10.1 [facility] Serum or plasma cholesterol in HDL measurement (mass/volume)Ordered By: Maurilio Castillo on 08-27-2023 Cholesterol in HDL [Mass/Vol] 110 mg/dL >40 [facility] Comment on above: The drugs N-Acetylcy steine and Metamizole may falsely depress this assay. Reference Range HDL <40 mg/dL Low HDL Cholesterol HDL >or= 60 mg/dL High HDL Cholesterol Serum or plasma cholesterol in VLDL measurement (mass/volume)Ordered By: Maurilio Castillo on 08-27-2023 Cholesterol in VLDL [Mass/Vol] 11 mg/dL 5-40 [facility] Serum or plasma creatinine m easurement (mass/volume)Ordered By: Maurilio Castillo on 08-27-2023 Creatinine [Mass/Vol] 0.97 mg/dL 0.55-1.02 [facility] Comment on above: The validity of the calculated GFR & GFRAA in patients over 70 years has not been determined. Clinical correlation is essential. Serum or plasma low density lipoprotein (LDL) cholesterol measurement (mass/volume)Ordered By: Maurilio Castillo on 08-27-2023 Cholesterol in LDL [Mass/Vol] 66 mg/dL 0-130 [facility] Serum or plasma urea nitroge n measurement (mass/volume)Ordered By: Maurilio Castillo on 08-27-2023 Urea nitrogen [Mass/Vol] 26 mg/dL 7-18 [facility] Squamous epithelial cells de tection in urine sediment by light microscopyOrdered By: Maurilio Castillo on 08-27-2023 Epithelial cells.squamous LM Ql (Urine sed) 0 SEEN /hpf 5-10 [facility] Thin prep Papanicolaou smear with manual screeningOrdered By: Maurilio Castillo on 08-27-2023 Thin prep Papanicolaou smear with manual screening 19 U/L 15-37 [facility] Thin prep Papanicolaou smear with manual screening 4 5-15 [facility] Urine blood detectionOrdered By: Maurilio Castillo on 08-27-2023 RBC Ql (U) Negative Negative [facility] RBC Ql (U) 0 SEEN /hpf 0-5 [facility] Urine clarityOrdered By: Darrel Castillo on 08-27-2023 Clarity (U) Clear Clear [facility] Urine color determinationOrd ered By: Maurilio Castillo on 08-27-2023 Color (U) Yellow Yellow [facility] Urine creatinine measurement (mass/volume)Ordered By: Maurilio Castillo on 08-27-2023 Creatinine (U) [Mass/Vol] 149.00 mg/dL NO RANGE EST. [facility] Urine glucose detectionOrder ed By: Maurilio Castillo on 08-27-2023 Glucose Ql (U) Normal mg/dl Normal [facility] Urine leukocyte esterase det ection by dipstickOrdered By: Maurilio Castillo on 08-27-2023 Leukocyte esterase Test strip Ql (U) 25 /ul Negative [facility] Urine pHOrdered By: Maurilio mirza on 08-27-2023 pH (U) 7.0 [pH] 5.0 - 8.0 [facility] Urine protein measurement (m ass/volume)Ordered By: Maurilio Castillo on 08-27-2023 Protein (U) [Mass/Vol] 22.1 mg/dL 0.0-11.8 [facility] Urine protein/creatinine mas s ratioOrdered By: Maurilio Castillo on 08-27-2023 Protein/Creatinine (U) [Mass ratio] 148 mg/g CRE 0-200 [facility] Urine sediment bacteria coun t by microscopy (number/high power field)Ordered By: Maurilio Castillo on 08-27-2023 Bacteria LM.HPF (Urine sed) [#/Area] 0 /[HPF] None Seen [facility] Urine specific gravity measu rementOrdered By: Maurilio Castillo on 08-27-2023 Specific gravity (U) [Rel density] 1.010 1.002-1.03 0 [facility] Urobilinogen Auto test strip Ql (U)Ordered By: Maurilio Castillo on 08-27-2023 Urobilinogen Ql (U) Normal mg/dl Normal [facility] Absolute lymphocyte countOrd ered By: Maurilio Castillo on 02-17-2023 Lymphocytes Auto (Unsp spec) [#/Vol] 1.12 10*3/uL 0.83-4.51 [facility] Basophil percentageOrdered B y: Maurilio Castillo on 02-17-2023 Basophil percentage 0-5 SEEN /hpf 0-5 [facility] Basophil percentage 3.4 mg/dL 2.5-4.9 [facility] Basophils/100 WBC (Bld) 0.9 % 0-1 [facility] Bilirubin [Mass/Vol] 0.50 mg/dL 0.20-1.00 [facility] Comment on above: For patients on eltr ombopag therapy, use of Dimension [place] TBIL is not recommended. Chloride [Moles/Vol] 103 mmol/L 98-107 [facility] Cholesterol [Mass/Vol] 183 mg/dL <200 [facility] Comment on above: <200 mg/dL Desirable 200-240 mg/dL Borderline >240 mg/dL High Risk Eosinophils/100 WBC (Bld) 4.2 % 0-5 [facility] Glucose [Mass/Vol] 86 mg/dL 74-106 [facility] Neutrophils (Bld) [#/Vol] 1.6 10*3/uL 2.0-7.7 [facility] Neutrophils/100 WBC (Bld) 46.7 % 47-70 [facility] Potassium [Moles/Vol] 3.7 mmol/L 3.5-5.1 [facility] Protein [Mass/Vol] 6.7 g/dL 6.4-8.2 [facility] Sodium [Moles/Vol] 136 mmol/L 136-145 [facility] Triglyceride [Mass/Vol] 64 mg/dL <199 [facility] Comment on above: The drugs N-Acetylcy steine and Metamizole may falsely depress this assay.Serum Triglycerides Reference Interval Normal <150 mg/dL Borderline high 150 - 199 mg/dL High 200 - 499 mg/dL Very High > or = 500 mg/dL WBC (Bld) [#/Vol] 3.3 10*3/uL 4.4-11.0 [facility] Bilirubin Test strip Ql (U)O rdered By: Maurilio Castillo on 02-17-2023 Bilirubin Ql (U) Negative Negative [facility] Blood erythrocytes count (nu mber/volume)Ordered By: Maurilio Castillo on 02-17-2023 RBC (Bld) [#/Vol] 4.28 10*6/uL 4.2-5.4 [facility] Blood hemoglobin measurement (mass/volume)Ordered By: Maurilio Castillo on 02-17-2023 Hemoglobin (Bld) [Mass/Vol] 12.5 g/dL 12.0-15.0 [facility] Blood lymphocytes/100 leukoc ytesOrdered By: Maurilio Castillo on 02-17-2023 Lymphocytes/100 WBC (Bld) 33.7 % 19-41 [facility] Blood monocytes/100 leukocyt esOrdered By: Maurilio Castillo on 02-17-2023 Monocytes/100 WBC (Bld) 14.2 % 0-10 [facility] Blood platelet mean volumeOr dered By: Maurilio Castillo on 02-17-2023 Platelet mean volume (Bld) [Entitic vol] 11.0 fL 6.2-12.0 [facility] Determination of erythrocyte mean corpuscular volume (MCV)Ordered By: Maurilio Castillo on 02-17-2023 MCV (RBC) [Entitic vol] 93.9 fL 81-99 [facility] Hematocrit Auto (Bld) [Volum e fraction]Ordered By: Maurilio Castillo on 02-17-2023 Hematocrit (Bld) [Volume fraction] 40.2 % 37-47 [facility] Hyaline casts LM.LPF (Urine sed) [#/Area]Ordered By: Maurilio Castillo on 02-17-2023 Hyaline casts (Urine sed) [#/Area] 0 /[LPF] 0-5 [facility] Ketones Test strip Ql (U)Ord ered By: Maurilio Castillo on 02-17-2023 Ketones Ql (U) Negative Negative [facility] Laboratory - Chemistry and C hemistry - challengeOrdered By: Maurilio Castillo on 02-17-2023 ALP [Catalytic activity/Vol] 97 U/L 45-117 [facility] ALT [Catalytic activity/Vol] 28 U/L 13-56 [facility] CO2 [Moles/Vol] 27.0 mmol/L 21.0-32.0 [facility] Globulin (S) [Mass/Vol] 3.3 g/dL 2.2-4.2 [facility] Urea nitrogen/Creatinine [Mass ratio] 26.3 mg/mg 10-20 [facility] Laboratory - Hematology and Cell countsOrdered By: Maurilio Castillo on 02-17-2023 Erythrocyte distribution width (RBC) [Entitic vol] 47.7 fL 35.1-43.9 [facility] Erythrocyte distribution width (RBC) [Ratio] 13.9 % 11.6-14.6 [facility] Immature granulocytes/100 WBC (Bld) 0.300 % 0.0-0.9 [facility] Comment on above: IG% - Immature Granu locytes (promyelocytes, myelocytes and metamyelocytes) > 1% indicates that a LEFT SHIFT is Present. MCH (RBC) [Entitic mass] 29.2 pg 27.0-32.0 [facility] Nucleated RBC/100 WBC (Bld) [Ratio] 0 % 0-5 [facility] MCHC Auto (RBC) [Mass/Vol]Or dered By: Maurilio Castillo on 02-17-2023 MCHC (RBC) [Mass/Vol] 31.1 g/dL 32-36 [facility] Mucus LM Ql (Urine sed)Order ed By: Maurilio Castillo on 02-17-2023 Mucus Ql (Urine sed) 0 SEEN /hpf [facility] Nitrite Test strip Ql (U)Ord ered By: Maurilio Castillo on 02-17-2023 Nitrite Ql (U) Negative Negative [facility] No Panel InformationOrdered By: Maurilio Castillo on 02-17-2023 Estimated GFR (MDRD) Amer 78 mL/min >60 [facility] Comment on above: GFR Calc Estimated GFR (MDRD) Non-Af Amer 64 mL/min >60 [facility] Comment on above: Non- GFR Calc Parathyroid Hormone (Intact) 84.1 pg/mL 18.4-80.1 [facility] Vitamin D 25-Hydroxy 51.1 ng/mL [facility] Comment on above: Vitamin D 25(OH) Sta tus Range Deficiency <20 ng/mL (50nmol/L) Insufficiency 20 - 30 ng/mL (50 - 75 nmol/L) Sufficiency 30 - 100 ng/mL (75 - 250 nmol/L) Toxicity >100 ng/mL (>250 nmol/L) Platelets bldOrdered By: Darrel Castillo on 02-17-2023 Platelets (Bld) [#/Vol] 260 10*3/uL 150-450 [facility] Protein Test strip Ql (U)Ord ered By: Maurilio Castillo on 02-17-2023 Protein Ql (U) 30 mg/dl Negative [facility] Serum or plasma albumin chad urement (mass/volume)Ordered By: Maurilio Castillo on 02-17-2023 Albumin [Mass/Vol] 3.4 g/dL 3.2-5.0 [facility] Serum or plasma albumin/glob ulin mass ratioOrdered By: Maurilio Castillo on 02-17-2023 Albumin/Globulin [Mass ratio] 1.0 {ratio} 0.9-2.4 [facility] Serum or plasma calcium chad urement (mass/volume)Ordered By: Maurilio Castillo on 02-17-2023 Calcium [Mass/Vol] 8.9 mg/dL 8.5-10.1 [facility] Serum or plasma cholesterol in HDL measurement (mass/volume)Ordered By: Maurilio Castillo on 02-17-2023 Cholesterol in HDL [Mass/Vol] 92 mg/dL >40 [facility] Comment on above: The drugs N-Acetylcy steine and Metamizole may falsely depress this assay. Reference Range HDL <40 mg/dL Low HDL Cholesterol HDL >or= 60 mg/dL High HDL Cholesterol Serum or plasma cholesterol in VLDL measurement (mass/volume)Ordered By: Maurilio Castillo on 02-17-2023 Cholesterol in VLDL [Mass/Vol] 13 mg/dL 5-40 [facility] Serum or plasma creatinine m easurement (mass/volume)Ordered By: Maurilio Castillo on 02-17-2023 Creatinine [Mass/Vol] 0.91 mg/dL 0.55-1.02 [facility] Comment on above: The validity of the calculated GFR & GFRAA in patients over 70 years has not been determined. Clinical correlation is essential. Serum or plasma low density lipoprotein (LDL) cholesterol measurement (mass/volume)Ordered By: Maurilio Castillo on 02-17-2023 Cholesterol in LDL [Mass/Vol] 78 mg/dL 0-130 [facility] Serum or plasma urea nitroge n measurement (mass/volume)Ordered By: Maurilio Castillo on 02-17-2023 Urea nitrogen [Mass/Vol] 24 mg/dL 7-18 [facility] Squamous epithelial cells de tection in urine sediment by light microscopyOrdered By: Maurilio Castillo on 02-17-2023 Epithelial cells.squamous LM Ql (Urine sed) 0-5 SEEN /hpf 5-10 [facility] Thin prep Papanicolaou smear with manual screeningOrdered By: Maurilio Castillo on 02-17-2023 Thin prep Papanicolaou smear with manual screening 19 U/L 15-37 [facility] Thin prep Papanicolaou smear with manual screening 6 5-15 [facility] Urine blood detectionOrdered By: Maurilio Castillo on 02-17-2023 RBC Ql (U) Negative Negative [facility] RBC Ql (U) 0 SEEN /hpf 0-5 [facility] Urine clarityOrdered By: Darrel Castillo on 02-17-2023 Clarity (U) Clear Clear [facility] Urine color determinationOrd ered By: Maurilio Castillo on 02-17-2023 Color (U) Yellow Yellow [facility] Urine creatinine measurement (mass/volume)Ordered By: Maurilio Castillo on 02-17-2023 Creatinine (U) [Mass/Vol] 195.00 mg/dL NO RANGE EST. [facility] Urine glucose detectionOrder ed By: Maurilio Castillo on 02-17-2023 Glucose Ql (U) Normal mg/dl Normal [facility] Urine leukocyte esterase det ection by dipstickOrdered By: Maurilio Castillo on 02-17-2023 Leukocyte esterase Test strip Ql (U) 25 /ul Negative [facility] Urine pHOrdered By: Maurilio mirza on 02-17-2023 pH (U) 6.5 [pH] 5.0 - 8.0 [facility] Urine protein measurement (m ass/volume)Ordered By: Maurilio Castillo on 02-17-2023 Protein (U) [Mass/Vol] 19.1 mg/dL 0.0-11.8 [facility] Urine protein/creatinine mas s ratioOrdered By: Maurilio Castillo on 02-17-2023 Protein/Creatinine (U) [Mass ratio] 98 mg/g CRE 0-200 [facility] Urine sediment bacteria coun t by microscopy (number/high power field)Ordered By: Maurilio Castillo on 02-17-2023 Bacteria LM.HPF (Urine sed) [#/Area] 0 /[HPF] None Seen [facility] Urine specific gravity measu rementOrdered By: Maurilio Castillo on 02-17-2023 Specific gravity (U) [Rel density] 1.010 1.002-1.03 0 [facility] Urobilinogen Auto test strip Ql (U)Ordered By: Maurilio Castillo on 02-17-2023 Urobilinogen Ql (U) Normal mg/dl Normal [facility] Absolute lymphocyte countOrd ered By: Dr. Peralta on 12-17-2022 Lymphocytes Auto (Unsp spec) [#/Vol] 1.47 10*3/uL 0.83-4.51 [facility] Basophil percentageOrdered B y: Dr. Peralta on 12-17-2022 Basophils/100 WBC (Bld) 0.9 % 0-1 [facility] Bilirubin [Mass/Vol] 0.30 mg/dL 0.20-1.00 [facility] Comment on above: For patients on eltr ombopag therapy, use of Dim[place] TBIL is not recommended. Chloride [Moles/Vol] 103 mmol/L 98-107 [facility] Eosinophils/100 WBC (Bld) 1.9 % 0-5 [facility] Glucose [Mass/Vol] 83 mg/dL 74-106 [facility] LDH [Catalytic activity/Vol] 216 U/L 84-246 [facility] Neutrophils (Bld) [#/Vol] 2.9 10*3/uL 2.0-7.7 [facility] Neutrophils/100 WBC (Bld) 55.2 % 47-70 [facility] Potassium [Moles/Vol] 3.9 mmol/L 3.5-5.1 [facility] Protein [Mass/Vol] 7.4 g/dL 6.4-8.2 [facility] Sodium [Moles/Vol] 135 mmol/L 136-145 [facility] WBC (Bld) [#/Vol] 5.3 10*3/uL 4.4-11.0 [facility] Blood erythrocytes count (nu mber/volume)Ordered By: Dr. Peralta on 12-17-2022 RBC (Bld) [#/Vol] 4.31 10*6/uL 4.2-5.4 [facility] Blood hemoglobin measurement (mass/volume)Ordered By: Dr. Peralta on 12-17-2022 Hemoglobin (Bld) [Mass/Vol] 13.1 g/dL 12.0-15.0 [facility] Blood lymphocytes/100 leukoc ytesOrdered By: Dr. Peralta on 12-17-2022 Lymphocytes/100 WBC (Bld) 27.8 % 19-41 [facility] Blood monocytes/100 leukocyt esOrdered By: Dr. Peralta on 12-17-2022 Monocytes/100 WBC (Bld) 13.8 % 0-10 [facility] Blood platelet mean volumeOr dered By: Dr. Peralta on 12-17-2022 Platelet mean volume (Bld) [Entitic vol] 10.6 fL 6.2-12.0 [facility] Determination of erythrocyte mean corpuscular volume (MCV)Ordered By: Dr. Peralta on 12-17-2022 MCV (RBC) [Entitic vol] 97.2 fL 81-99 [facility] Hematocrit Auto (Bld) [Volum e fraction]Ordered By: Dr. Peralta on 12-17-2022 Hematocrit (Bld) [Volume fraction] 41.9 % 37-47 [facility] Laboratory - Chemistry and C hemistry - challengeOrdered By: Dr. Peralta on 12-17-2022 ALP [Catalytic activity/Vol] 102 U/L 45-117 [facility] ALT [Catalytic activity/Vol] 27 U/L 13-56 [facility] CO2 [Moles/Vol] 30.0 mmol/L 21.0-32.0 [facility] Globulin (S) [Mass/Vol] 3.7 g/dL 2.2-4.2 [facility] Urea nitrogen/Creatinine [Mass ratio] 21.6 mg/mg 10-20 [facility] Laboratory - Hematology and Cell countsOrdered By: Dr. Peralta on 12-17-2022 Erythrocyte distribution width (RBC) [Entitic vol] 49.7 fL 35.1-43.9 [facility] Erythrocyte distribution width (RBC) [Ratio] 13.9 % 11.6-14.6 [facility] Immature granulocytes/100 WBC (Bld) 0.400 % 0.0-0.9 [facility] Comment on above: IG% - Immature Granu locytes (promyelocytes, myelocytes and metamyelocytes) > 1% indicates that a LEFT SHIFT is Present. MCH (RBC) [Entitic mass] 30.4 pg 27.0-32.0 [facility] Nucleated RBC/100 WBC (Bld) [Ratio] 0 % 0-5 [facility] MCHC Auto (RBC) [Mass/Vol]Or dered By: Dr. Peralta on 12-17-2022 MCHC (RBC) [Mass/Vol] 31.3 g/dL 32-36 [facility] No Panel InformationOrdered By: Dr. Peralta on 12-17-2022 Estimated Creatinine Clearance Calc 49.08 ml/min [facility] Estimated GFR (MDRD) Amer 72 mL/min >60 [facility] Comment on above: GFR Calc Estimated GFR (MDRD) Non-Af Amer 60 mL/min >60 [facility] Comment on above: Non- GFR Calc Platelets bldOrdered By: Dr. Peralta on 12-17-2022 Platelets (Bld) [#/Vol] 265 10*3/uL 150-450 [facility] Serum or plasma albumin chad urement (mass/volume)Ordered By: Dr. Peralta on 12-17-2022 Albumin [Mass/Vol] 3.7 g/dL 3.2-5.0 [facility] Serum or plasma albumin/glob ulin mass ratioOrdered By: Dr. Peralta on 12-17-2022 Albumin/Globulin [Mass ratio] 1.0 {ratio} 0.9-2.4 [facility] Serum or plasma calcium chad urement (mass/volume)Ordered By: Dr. Peralta on 12-17-2022 Calcium [Mass/Vol] 9.3 mg/dL 8.5-10.1 [facility] Serum or plasma creatinine m easurement (mass/volume)Ordered By: Dr. Peralta on 12-17-2022 Creatinine [Mass/Vol] 0.97 mg/dL 0.55-1.02 [facility] Comment on above: The validity of the calculated GFR & GFRAA in patients over 70 years has not been determined. Clinical correlation is essential. Serum or plasma urea nitroge n measurement (mass/volume)Ordered By: Dr. Peralta on 12-17-2022 Urea nitrogen [Mass/Vol] 21 mg/dL 7-18 [facility] Thin prep Papanicolaou smear with manual screeningOrdered By: Dr. Peralta on 12-17-2022 Thin prep Papanicolaou smear with manual screening 18 U/L 15-37 [facility] Thin prep Papanicolaou smear with manual screening 2 5-15 [facility] Absolute lymphocyte countOrd ered By: Dr. Castillo on 10-23-2022 Lymphocytes Auto (Unsp spec) [#/Vol] 1.29 10*3/uL 0.83-4.51 [facility] Basophil percentageOrdered B y: Dr. Castillo on 10-23-2022 Basophil percentage 0-5 SEEN /hpf 0-5 [facility] Basophil percentage 3.2 mg/dL 2.5-4.9 [facility] Basophils/100 WBC (Bld) 0.6 % 0-1 [facility] Bilirubin [Mass/Vol] 0.40 mg/dL 0.20-1.00 [facility] Comment on above: For patients on eltr ombopag therapy, use of Dim[place] TBIL is not recommended. Chloride [Moles/Vol] 102 mmol/L 98-107 [facility] Cholesterol [Mass/Vol] 189 mg/dL <200 [facility] Comment on above: <200 mg/dL Desirable 200-240 mg/dL Borderline >240 mg/dL High Risk Eosinophils/100 WBC (Bld) 2.0 % 0-5 [facility] Glucose [Mass/Vol] 82 mg/dL 74-106 [facility] Neutrophils (Bld) [#/Vol] 3.5 10*3/uL 2.0-7.7 [facility] Neutrophils/100 WBC (Bld) 64.4 % 47-70 [facility] Potassium [Moles/Vol] 4.2 mmol/L 3.5-5.1 [facility] Protein [Mass/Vol] 7.1 g/dL 6.4-8.2 [facility] Sodium [Moles/Vol] 138 mmol/L 136-145 [facility] Triglyceride [Mass/Vol] 69 mg/dL <199 [facility] Comment on above: The drugs N-Acetylcy steine and Metamizole may falsely depress this assay.Serum Triglycerides Reference Interval Normal <150 mg/dL Borderline high 150 - 199 mg/dL High 200 - 499 mg/dL Very High > or = 500 mg/dL WBC (Bld) [#/Vol] 5.4 10*3/uL 4.4-11.0 [facility] Bilirubin Test strip Ql (U)O rdered By: Dr. Castillo on 10-23-2022 Bilirubin Ql (U) 1 mg/dL Negative [facility] Comment on above: COLOR OF URINE MAY A FFECT DIPSTICK RESULTS. Blood erythrocytes count (nu mber/volume)Ordered By: Dr. Castillo on 10-23-2022 RBC (Bld) [#/Vol] 4.36 10*6/uL 4.2-5.4 [facility] Blood hemoglobin measurement (mass/volume)Ordered By: Dr. Castillo on 10-23-2022 Hemoglobin (Bld) [Mass/Vol] 13.3 g/dL 12.0-15.0 [facility] Blood lymphocytes/100 leukoc ytesOrdered By: Dr. Castillo on 10-23-2022 Lymphocytes/100 WBC (Bld) 23.9 % 19-41 [facility] Blood monocytes/100 leukocyt esOrdered By: Dr. Castillo on 10-23-2022 Monocytes/100 WBC (Bld) 8.7 % 0-10 [facility] Blood platelet mean volumeOr dered By: Dr. Castillo on 10-23-2022 Platelet mean volume (Bld) [Entitic vol] 11.1 fL 6.2-12.0 [facility] Determination of erythrocyte mean corpuscular volume (MCV)Ordered By: Dr. Castillo on 10-23-2022 MCV (RBC) [Entitic vol] 94.5 fL 81-99 [facility] Hematocrit Auto (Bld) [Volum e fraction]Ordered By: Dr. Castillo on 10-23-2022 Hematocrit (Bld) [Volume fraction] 41.2 % 37-47 [facility] Ketones Test strip Ql (U)Ord ered By: Dr. Castillo on 10-23-2022 Ketones Ql (U) 5 mg/dl Negative [facility] Laboratory - Chemistry and C hemistry - challengeOrdered By: Dr. Castillo on 10-23-2022 ALP [Catalytic activity/Vol] 88 U/L 45-117 [facility] ALT [Catalytic activity/Vol] 24 U/L 13-56 [facility] CO2 [Moles/Vol] 27.0 mmol/L 21.0-32.0 [facility] Globulin (S) [Mass/Vol] 3.2 g/dL 2.2-4.2 [facility] Urea nitrogen/Creatinine [Mass ratio] 21.9 mg/mg 10-20 [facility] Laboratory - Hematology and Cell countsOrdered By: Dr. Castillo on 10-23-2022 Erythrocyte distribution width (RBC) [Entitic vol] 48.4 fL 35.1-43.9 [facility] Erythrocyte distribution width (RBC) [Ratio] 13.8 % 11.6-14.6 [facility] Immature granulocytes/100 WBC (Bld) 0.400 % 0.0-0.9 [facility] Comment on above: IG% - Immature Granu locytes (promyelocytes, myelocytes and metamyelocytes) > 1% indicates that a LEFT SHIFT is Present. MCH (RBC) [Entitic mass] 30.5 pg 27.0-32.0 [facility] Nucleated RBC/100 WBC (Bld) [Ratio] 0 % 0-5 [facility] MCHC Auto (RBC) [Mass/Vol]Or dered By: Dr. Castillo on 10-23-2022 MCHC (RBC) [Mass/Vol] 32.3 g/dL 32-36 [facility] Mucus LM Ql (Urine sed)Order ed By: Dr. Castillo on 10-23-2022 Mucus Ql (Urine sed) 0 SEEN /hpf [facility] Nitrite Test strip Ql (U)Ord ered By: Dr. Castillo on 10-23-2022 Nitrite Ql (U) Negative Negative [facility] No Panel InformationOrdered By: Dr. Castillo on 10-23-2022 Estimated GFR (MDRD) Amer 74 mL/min >60 [facility] Comment on above: GFR Calc Estimated GFR (MDRD) Non-Af Amer 61 mL/min >60 [facility] Comment on above: Non- GFR Calc Parathyroid Hormone (Intact) 90.5 pg/mL 18.4-80.1 [facility] Vitamin D 25-Hydroxy 34.7 ng/mL [facility] Comment on above: Vitamin D 25(OH) Sta tus Range Deficiency <20 ng/mL (50nmol/L) Insufficiency 20 - 30 ng/mL (50 - 75 nmol/L) Sufficiency 30 - 100 ng/mL (75 - 250 nmol/L) Toxicity >100 ng/mL (>250 nmol/L) Platelets bldOrdered By: Dr. Castillo on 10-23-2022 Platelets (Bld) [#/Vol] 309 10*3/uL 150-450 [facility] Protein Test strip Ql (U)Ord ered By: Dr. Castillo on 10-23-2022 Protein Ql (U) 30 mg/dl Negative [facility] Serum or plasma albumin chad urement (mass/volume)Ordered By: Dr. Castillo on 10-23-2022 Albumin [Mass/Vol] 3.9 g/dL 3.2-5.0 [facility] Serum or plasma albumin/glob ulin mass ratioOrdered By: Dr. Castillo on 10-23-2022 Albumin/Globulin [Mass ratio] 1.2 {ratio} 0.9-2.4 [facility] Serum or plasma calcium chad urement (mass/volume)Ordered By: Dr. Castillo on 10-23-2022 Calcium [Mass/Vol] 9.5 mg/dL 8.5-10.1 [facility] Serum or plasma cholesterol in HDL measurement (mass/volume)Ordered By: Dr. Castillo on 10-23-2022 Cholesterol in HDL [Mass/Vol] 110 mg/dL >40 [facility] Comment on above: The drugs N-Acetylcy steine and Metamizole may falsely depress this assay. Reference Range HDL <40 mg/dL Low HDL Cholesterol HDL >or= 60 mg/dL High HDL Cholesterol Serum or plasma cholesterol in VLDL measurement (mass/volume)Ordered By: Dr. Castillo on 10-23-2022 Cholesterol in VLDL [Mass/Vol] 14 mg/dL 5-40 [facility] Serum or plasma creatinine m easurement (mass/volume)Ordered By: Dr. Castillo on 10-23-2022 Creatinine [Mass/Vol] 0.96 mg/dL 0.55-1.02 [facility] Comment on above: The validity of the calculated GFR & GFRAA in patients over 70 years has not been determined. Clinical correlation is essential. Serum or plasma low density lipoprotein (LDL) cholesterol measurement (mass/volume)Ordered By: Dr. Castillo on 10-23-2022 Cholesterol in LDL [Mass/Vol] 65 mg/dL 0-130 [facility] Serum or plasma urea nitroge n measurement (mass/volume)Ordered By: Dr. Castillo on 10-23-2022 Urea nitrogen [Mass/Vol] 21 mg/dL 7-18 [facility] Squamous epithelial cells de tection in urine sediment by light microscopyOrdered By: Dr. Castillo on 10-23-2022 Epithelial cells.squamous LM Ql (Urine sed) 0-5 SEEN /hpf 5-10 [facility] Thin prep Papanicolaou smear with manual screeningOrdered By: Dr. Castillo on 10-23-2022 Thin prep Papanicolaou smear with manual screening 19 U/L 15-37 [facility] Thin prep Papanicolaou smear with manual screening 9 5-15 [facility] Urine blood detectionOrdered By: Dr. Castillo on 10-23-2022 RBC Ql (U) Negative Negative [facility] RBC Ql (U) 0 SEEN /hpf 0-5 [facility] Urine clarityOrdered By: Dr. Castillo on 10-23-2022 Clarity (U) Sl. Cloudy Clear [facility] Urine color determinationOrd ered By: Dr. Castillo on 10-23-2022 Color (U) Yellow Yellow [facility] Urine creatinine measurement (mass/volume)Ordered By: Dr. Castillo on 10-23-2022 Creatinine (U) [Mass/Vol] 240.00 mg/dL NO RANGE EST. [facility] Urine glucose detectionOrder ed By: Dr. Castillo on 10-23-2022 Glucose Ql (U) Normal mg/dl Normal [facility] Urine leukocyte esterase det ection by dipstickOrdered By: Dr. Castillo on 10-23-2022 Leukocyte esterase Test strip Ql (U) 25 /ul Negative [facility] Urine pHOrdered By: Dr. Orquidea oakley on 10-23-2022 pH (U) 8.0 [pH] 5.0 - 8.0 [facility] Urine protein measurement (m ass/volume)Ordered By: Dr. Castillo on 10-23-2022 Protein (U) [Mass/Vol] 30.3 mg/dL 0.0-11.8 [facility] Urine protein/creatinine mas s ratioOrdered By: Dr. Castillo on 10-23-2022 Protein/Creatinine (U) [Mass ratio] 126 mg/g CRE 0-200 [facility] Urine sediment bacteria coun t by microscopy (number/high power field)Ordered By: Dr. Castillo on 10-23-2022 Bacteria LM.HPF (Urine sed) [#/Area] 0 /[HPF] None Seen [facility] Urine specific gravity measu rementOrdered By: Dr. Castillo on 10-23-2022 Specific gravity (U) [Rel density] 1.010 1.002-1.03 0 [facility] Urobilinogen Auto test strip Ql (U)Ordered By: Dr. Castillo on 10-23-2022 Urobilinogen Ql (U) 1 mg/dl Normal [facility] Absolute lymphocyte countOrd ered By: Dr. Castillo on 06-25-2022 Lymphocytes Auto (Unsp spec) [#/Vol] 1.37 10*3/uL 0.83-4.51 [facility] Basophil percentageOrdered B y: Dr. Castillo on 06-25-2022 Basophils/100 WBC (Bld) 1.0 % 0-1 [facility] Bilirubin [Mass/Vol] 0.40 mg/dL 0.20-1.00 [facility] Comment on above: For patients on eltr ombopag therapy, use of Dim[place] TBIL is not recommended. Chloride [Moles/Vol] 102 mmol/L 98-107 [facility] Cholesterol [Mass/Vol] 277 mg/dL <200 [facility] Comment on above: <200 mg/dL Desirable 200-240 mg/dL Borderline >240 mg/dL High Risk Eosinophils/100 WBC (Bld) 2.5 % 0-5 [facility] Glucose [Mass/Vol] 78 mg/dL 74-106 [facility] Neutrophils (Bld) [#/Vol] 3.0 10*3/uL 2.0-7.7 [facility] Neutrophils/100 WBC (Bld) 57.2 % 47-70 [facility] Potassium [Moles/Vol] 4.9 mmol/L 3.5-5.1 [facility] Protein [Mass/Vol] 7.3 g/dL 6.4-8.2 [facility] Sodium [Moles/Vol] 135 mmol/L 136-145 [facility] Triglyceride [Mass/Vol] 88 mg/dL <199 [facility] Comment on above: The drugs N-Acetylcy steine and Metamizole may falsely depress this assay.Serum Triglycerides Reference Interval Normal <150 mg/dL Borderline high 150 - 199 mg/dL High 200 - 499 mg/dL Very High > or = 500 mg/dL WBC (Bld) [#/Vol] 5.3 10*3/uL 4.4-11.0 [facility] Blood erythrocytes count (nu mber/volume)Ordered By: Dr. Castillo on 06-25-2022 RBC (Bld) [#/Vol] 4.52 10*6/uL 4.2-5.4 [facility] Blood hemoglobin measurement (mass/volume)Ordered By: Dr. Castillo on 06-25-2022 Hemoglobin (Bld) [Mass/Vol] 13.8 g/dL 12.0-15.0 [facility] Blood lymphocytes/100 leukoc ytesOrdered By: Dr. Castillo on 06-25-2022 Lymphocytes/100 WBC (Bld) 26.0 % 19-41 [facility] Blood monocytes/100 leukocyt esOrdered By: Dr. Castillo on 06-25-2022 Monocytes/100 WBC (Bld) 13.1 % 0-10 [facility] Blood platelet mean volumeOr dered By: Dr. Castillo on 06-25-2022 Platelet mean volume (Bld) [Entitic vol] 10.8 fL 6.2-12.0 [facility] Determination of erythrocyte mean corpuscular volume (MCV)Ordered By: Dr. Castillo on 06-25-2022 MCV (RBC) [Entitic vol] 97.3 fL 81-99 [facility] Hematocrit Auto (Bld) [Volum e fraction]Ordered By: Dr. Castillo on 06-25-2022 Hematocrit (Bld) [Volume fraction] 44.0 % 37-47 [facility] Laboratory - Chemistry and C hemistry - challengeOrdered By: Dr. Castillo on 06-25-2022 ALP [Catalytic activity/Vol] 87 U/L 45-117 [facility] ALT [Catalytic activity/Vol] 28 U/L 13-56 [facility] CO2 [Moles/Vol] 28.0 mmol/L 21.0-32.0 [facility] Globulin (S) [Mass/Vol] 3.5 g/dL 2.2-4.2 [facility] Urea nitrogen/Creatinine [Mass ratio] 25.5 mg/mg 10-20 [facility] Laboratory - Hematology and Cell countsOrdered By: Dr. Castillo on 06-25-2022 Erythrocyte distribution width (RBC) [Entitic vol] 50.5 fL 35.1-43.9 [facility] Erythrocyte distribution width (RBC) [Ratio] 14.0 % 11.6-14.6 [facility] Immature granulocytes/100 WBC (Bld) 0.200 % 0.0-0.9 [facility] Comment on above: IG% - Immature Granu locytes (promyelocytes, myelocytes and metamyelocytes) > 1% indicates that a LEFT SHIFT is Present. MCH (RBC) [Entitic mass] 30.5 pg 27.0-32.0 [facility] Nucleated RBC/100 WBC (Bld) [Ratio] 0 % 0-5 [facility] MCHC Auto (RBC) [Mass/Vol]Or dered By: Dr. Castillo on 06-25-2022 MCHC (RBC) [Mass/Vol] 31.4 g/dL 32-36 [facility] No Panel InformationOrdered By: Dr. Castillo on 06-25-2022 Estimated GFR (MDRD) Amer 66 mL/min >60 [facility] Comment on above: GFR Calc Estimated GFR (MDRD) Non-Af Amer 54 mL/min >60 [facility] Comment on above: Non- GFR Calc Vitamin D 25-Hydroxy 37.9 ng/mL [facility] Comment on above: Vitamin D 25(OH) Sta tus Range Deficiency <20 ng/mL (50nmol/L) Insufficiency 20 - 30 ng/mL (50 - 75 nmol/L) Sufficiency 30 - 100 ng/mL (75 - 250 nmol/L) Toxicity >100 ng/mL (>250 nmol/L) Platelets bldOrdered By: Dr. Castillo on 06-25-2022 Platelets (Bld) [#/Vol] 325 10*3/uL 150-450 [facility] Serum or plasma albumin chad urement (mass/volume)Ordered By: Dr. Castillo on 06-25-2022 Albumin [Mass/Vol] 3.8 g/dL 3.2-5.0 [facility] Serum or plasma albumin/glob ulin mass ratioOrdered By: Dr. Castillo on 06-25-2022 Albumin/Globulin [Mass ratio] 1.1 {ratio} 0.9-2.4 [facility] Serum or plasma calcium chad urement (mass/volume)Ordered By: Dr. Castillo on 06-25-2022 Calcium [Mass/Vol] 9.5 mg/dL 8.5-10.1 [facility] Serum or plasma cholesterol in HDL measurement (mass/volume)Ordered By: Dr. Castillo on 06-25-2022 Cholesterol in HDL [Mass/Vol] 118 mg/dL >40 [facility] Comment on above: The drugs N-Acetylcy steine and Metamizole may falsely depress this assay. Reference Range HDL <40 mg/dL Low HDL Cholesterol HDL >or= 60 mg/dL High HDL Cholesterol Serum or plasma cholesterol in VLDL measurement (mass/volume)Ordered By: Dr. Castillo on 06-25-2022 Cholesterol in VLDL [Mass/Vol] 18 mg/dL 5-40 [facility] Serum or plasma creatinine m easurement (mass/volume)Ordered By: Dr. Castillo on 06-25-2022 Creatinine [Mass/Vol] 1.06 mg/dL 0.55-1.02 [facility] Comment on above: The validity of the calculated GFR & GFRAA in patients over 70 years has not been determined. Clinical correlation is essential. Serum or plasma low density lipoprotein (LDL) cholesterol measurement (mass/volume)Ordered By: Dr. Castillo on 06-25-2022 Cholesterol in LDL [Mass/Vol] 141 mg/dL 0-130 [facility] Serum or plasma urea nitroge n measurement (mass/volume)Ordered By: Dr. Castillo on 06-25-2022 Urea nitrogen [Mass/Vol] 27 mg/dL 7-18 [facility] Thin prep Papanicolaou smear with manual screeningOrdered By: Dr. Castillo on 06-25-2022 Thin prep Papanicolaou smear with manual screening 19 U/L 15-37 [facility] Thin prep Papanicolaou smear with manual screening 5 5-15 [facility] Absolute lymphocyte counton 11-28-2021 Lymphocytes Auto (Unsp spec) [#/Vol] 1.41 10*3/uL 0.83-4.51 [facility] Work Phone: Basophil percentageon 2021 Basophil percentage 0 SEEN /hpf [facility] Work Phone: Basophils/100 WBC (Bld) 1.0 % 0-1 [facility] Work Phone: Bilirubin [Mass/Vol] 0.40 mg/dL 0.20-1.00 [facility] Work Phone: Comment on above: For patients on eltr ombopag therapy, use of Dimension [place] TBIL is not recommended. Chloride [Moles/Vol] 107 mmol/L 98-107 [facility] Work Phone: Cholesterol [Mass/Vol] 189 mg/dL <200 [facility] Work Phone: Comment on above: <200 mg/dL Desirable 200-240 mg/dL Borderline >240 mg/dL High Risk Eosinophils/100 WBC (Bld) 1.4 % 0-5 [facility] Work Phone: Glucose [Mass/Vol] 125 mg/dL 74-106 [facility] Work Phone: Comment on above: Fasting Glucose resu lt from 100 to 125 mg/dL suggests IMPAIRED HOMEOSTASIS per A.D.A. criteria. Neutrophils (Bld) [#/Vol] 3.0 10*3/uL 2.0-7.7 [facility] Work Phone: Neutrophils/100 WBC (Bld) 60.2 % 47-70 [facility] Work Phone: Potassium [Moles/Vol] 4.3 mmol/L 3.5-5.1 [facility] Work Phone: Protein [Mass/Vol] 6.8 g/dL 6.4-8.2 [facility] Work Phone: Sodium [Moles/Vol] 140 mmol/L 136-145 [facility] Work Phone: Triglyceride [Mass/Vol] 44 mg/dL [facility] Work Phone: Comment on above: The drugs N-Acetylcy steine and Metamizole may falsely depress this assay.Serum Triglycerides Reference Interval Normal <150 mg/dL Borderline high 150 - 199 mg/dL High 200 - 499 mg/dL Very High > or = 500 mg/dL WBC (Bld) [#/Vol] 5.1 10*3/uL 4.4-11.0 [facility] Work Phone: Bilirubin Test strip Ql (U)o n 11-28-2021 Bilirubin Ql (U) 1 mg/dL Negative [facility] Work Phone: Comment on above: COLOR OF URINE MAY A FFECT DIPSTICK RESULTS. Blood erythrocytes count (nu mber/volume)on 11-28-2021 RBC (Bld) [#/Vol] 4.14 10*6/uL 4.2-5.4 [facility] Work Phone: Blood hemoglobin measurement (mass/volume)on 11-28-2021 Hemoglobin (Bld) [Mass/Vol] 13.0 g/dL 12.0-15.0 [facility] Work Phone: Blood lymphocytes/100 leukoc yteson 11-28-2021 Lymphocytes/100 WBC (Bld) 27.9 % 19-41 [facility] Work Phone: Blood monocytes/100 leukocyt eson 11-28-2021 Monocytes/100 WBC (Bld) 9.3 % 0-10 [facility] Work Phone: Blood platelet mean volumeon 11-28-2021 Platelet mean volume (Bld) [Entitic vol] 12.0 fL 6.2-12.0 [facility] Work Phone: Calcium oxalate crystals det ection in urine sediment by light microscopyon 11-28-2021 Calcium oxalate crystals LM Ql (Urine sed) 1+ /hpf [facility] Work Phone: Determination of erythrocyte mean corpuscular volume (MCV)on 11-28-2021 MCV (RBC) [Entitic vol] 98.1 fL 81-99 [facility] Work Phone: Hematocrit Auto (Bld) [Volum e fraction]on 11-28-2021 Hematocrit (Bld) [Volume fraction] 40.6 % 37-47 [facility] Work Phone: Ketones Test strip Ql (U)on 11-28-2021 Ketones Ql (U) 5 mg/dl Negative [facility] Work Phone: Laboratory - Chemistry and C hemistry - challengeon 11-28-2021 ALP [Catalytic activity/Vol] 86 U/L 45-117 [facility] Work Phone: ALT [Catalytic activity/Vol] 21 U/L 13-56 [facility] Work Phone: CO2 [Moles/Vol] 27.0 mmol/L 21.0-32.0 [facility] Work Phone: Globulin (S) [Mass/Vol] 2.8 g/dL 2.2-4.2 [facility] Work Phone: Urea nitrogen/Creatinine [Mass ratio] 22.2 mg/mg 10-20 [facility] Work Phone: Laboratory - Hematology and Cell countson 11-28-2021 Erythrocyte distribution width (RBC) [Entitic vol] 50.9 fL 35.1-43.9 [facility] Work Phone: Erythrocyte distribution width (RBC) [Ratio] 14.0 % 11.6-14.6 [facility] Work Phone: Immature granulocytes/100 WBC (Bld) 0.200 % 0.0-0.9 [facility] Work Phone: Comment on above: IG% - Immature Granu locytes (promyelocytes, myelocytes and metamyelocytes) > 1% indicates that a LEFT SHIFT is Present. MCH (RBC) [Entitic mass] 31.4 pg 27.0-32.0 [facility] Work Phone: Nucleated RBC/100 WBC (Bld) [Ratio] 0 % 0-5 [facility] Work Phone: MCHC Auto (RBC) [Mass/Vol]on 11-28-2021 MCHC (RBC) [Mass/Vol] 32.0 g/dL 32-36 [facility] Work Phone: Mucus LM Ql (Urine sed)on Mucus Ql (Urine sed) 0 SEEN /hpf [facility] Work Phone: Nitrite Test strip Ql (U)on 11-28-2021 Nitrite Ql (U) Negative Negative [facility] Work Phone: No Panel Informationon 11-28 Estimated GFR (MDRD) Amer 64 mL/min >60 [facility] Work Phone: Comment on above: GFR Calc Estimated GFR (MDRD) Non-Af Amer 53 mL/min >60 [facility] Work Phone: Comment on above: Non- GFR Calc Vitamin D 25-Hydroxy 52.2 ng/mL [facility] Work Phone: Comment on above: Vitamin D 25(OH) Sta tus Range Deficiency <20 ng/mL (50nmol/L) Insufficiency 20 - 30 ng/mL (50 - 75 nmol/L) Sufficiency 30 - 100 ng/mL (75 - 250 nmol/L) Toxicity >100 ng/mL (>250 nmol/L) Platelets bldon 11-28-2021 Platelets (Bld) [#/Vol] 247 10*3/uL 150-450 [facility] Work Phone: Protein Test strip Ql (U)on 11-28-2021 Protein Ql (U) 30 mg/dl Negative [facility] Work Phone: Serum or plasma albumin chad urement (mass/volume)on 11-28-2021 Albumin [Mass/Vol] 4.0 g/dL 3.2-5.0 [facility] Work Phone: Serum or plasma albumin/glob ulin mass ratioon 11-28-2021 Albumin/Globulin [Mass ratio] 1.4 {ratio} 0.9-2.4 [facility] Work Phone: Serum or plasma calcium chad urement (mass/volume)on 11-28-2021 Calcium [Mass/Vol] 9.3 mg/dL 8.5-10.1 [facility] Work Phone: Serum or plasma cholesterol in HDL measurement (mass/volume)on 11-28-2021 Cholesterol in HDL [Mass/Vol] 107 mg/dL [facility] Work Phone: Comment on above: The drugs N-Acetylcy steine and Metamizole may falsely depress this assay. Reference Range HDL <40 mg/dL Low HDL Cholesterol HDL >or= 60 mg/dL High HDL Cholesterol Serum or plasma cholesterol in VLDL measurement (mass/volume)on 11-28-2021 Cholesterol in VLDL [Mass/Vol] 9 mg/dL 5-40 [facility] Work Phone: Serum or plasma creatinine m easurement (mass/volume)on 11-28-2021 Creatinine [Mass/Vol] 1.08 mg/dL 0.55-1.02 [facility] Work Phone: Comment on above: The validity of the calculated GFR & GFRAA in patients over 70 years has not been determined. Clinical correlation is essential. Serum or plasma low density lipoprotein (LDL) cholesterol measurement (mass/volume)on 11-28-2021 Cholesterol in LDL [Mass/Vol] 73 mg/dL 0-130 [facility] Work Phone: Serum or plasma urea nitroge n measurement (mass/volume)on 11-28-2021 Urea nitrogen [Mass/Vol] 24 mg/dL 7-18 [facility] Work Phone: Squamous epithelial cells de tection in urine sediment by light microscopyon 11-28-2021 Epithelial cells.squamous LM Ql (Urine sed) 0 SEEN /hpf [facility] Work Phone: Thin prep Papanicolaou smear with manual screeningon 11-28-2021 Thin prep Papanicolaou smear with manual screening 21 U/L 15-37 [facility] Work Phone: Thin prep Papanicolaou smear with manual screening 6 5-15 [facility] Work Phone: Urine blood detectionon 04-0 RBC Ql (U) Negative Negative [facility] Work Phone: RBC Ql (U) 0 SEEN /hpf [facility] Work Phone: Urine clarityon 11-28-2021 Clarity (U) Clear Clear [facility] Work Phone: Urine color determinationon 11-28-2021 Color (U) Yellow Yellow [facility] Work Phone: Urine creatinine measurement (mass/volume)on 11-28-2021 Creatinine (U) [Mass/Vol] 275.00 mg/dL NO RANGE EST. [facility] Work Phone: Urine glucose detectionon Glucose Ql (U) Normal mg/dl Normal [facility] Work Phone: Urine leukocyte esterase det ection by dipstickon 11-28-2021 Leukocyte esterase Test strip Ql (U) 25 /ul Negative [facility] Work Phone: Urine pHon 11-28-2021 pH (U) 5.0 [pH] [facility] Work Phone: Urine protein measurement (m ass/volume)on 11-28-2021 Protein (U) [Mass/Vol] 28.0 mg/dL 0.0-11.8 [facility] Work Phone: Urine protein/creatinine mas s ratioon 11-28-2021 Protein/Creatinine (U) [Mass ratio] 102 mg/g CRE 0-200 [facility] Work Phone: Urine sediment bacteria coun t by microscopy (number/high power field)on 11-28-2021 Bacteria LM.HPF (Urine sed) [#/Area] 0 /[HPF] None Seen [facility] Work Phone: Urine specific gravity measu rementon 11-28-2021 Specific gravity (U) [Rel density] 1.025 [facility] Work Phone: Urobilinogen Auto test strip Ql (U)on 11-28-2021 Urobilinogen Ql (U) 1 mg/dl Normal [facility] Work Phone: Whole blood hemoglobin A1c/t otal hemoglobin ratio (mass fraction)on 11-28-2021 HbA1c (Bld) [Mass fraction] 5.3 % 3.8-5.6 [facility] Work Phone: Comment on above: Normal < 5.7 % Predi abetic 5.7 - 6.4 % Diabetic >or= 6.5 % Please note range changes. Erythrocyte distribution wid th standard deviationon 09-16-2018 Erythrocyte distribution width (RBC) [Entitic vol] 50.2 fL 35.1-43.9 [facility] Laboratory - Hematology and Cell countson 09-16-2018 Erythrocyte distribution width (RBC) [Ratio] 13.5 % 11.6-14.6 [facility] Total cell counton 9 Cells counted Molgen (Bld/Tiss) [#] Not Reportable [facility] CBC W/Diff, AutomatedOrdered By: Warehouse Trainer on 05-11-2018 CBC W/Diff, Automated 257 K/mm3 Normal 150-450 [facility] prehensive Internal Medicine Work Phone: Comment on above: [facility] [address] [place], [place], [phone] CBC W/Diff, Automated 59.5 fL Abnormal 35.1-43.9 [facility] prehensive Internal Medicine Work Phone: Comment on above: [facility] [address] [place], [address] CBC W/Diff, Automated 17.8 % Abnormal 11.6-14.6 [facility] Work Phone: Comment on above: [facility] [address] [place], [place], [phone] CBC W/Diff, Automated 32.7 {g/gl} Normal 32-36 [facility] Work Phone: Comment on above: [facility] [address] [place], [address] CBC W/Diff, Automated 1.4 {X10_3/uL} Abnormal 2.0-7.7 [facility] Internal Medicine Work Phone: Comment on above: [facility] [address] [place], [address] CBC W/Diff, Automated 30.1 pg Normal 27.0-32.0 [facility] prehensive Internal Medicine Work Phone: Comment on above: [facility] [address] [place], [address] CBC W/Diff, Automated 92.1 fL Normal 81-99 [facility] prehens[facility] Medicine Work Phone: Comment on above: [facility] [address] [place], [address] CBC W/Diff, Automated 41.9 % Normal 37-47 [facility] Work Phone: Comment on above: [facility] [address] [place], [place], [phone] CBC W/Diff, Automated 13.7 g/dL Normal 12.0-15.0 [facility] prehensive Internal Medicine Work Phone: Comment on above: [facility] [address] [place], [address] CBC W/Diff, Automated 4.55 {M/mm3} Normal 4.2-5.4 [facility] Work Phone: Comment on above: [facility] [address] [place], [address] CBC W/Diff, Automated 3.0 K/mm3 Abnormal 4.4-11.0 [facility] Work Phone: Comment on above: [facility] [address] [place], [address] CBC W/Diff, Automated 1.02 {X10_3/ul} Normal 0.83-4.51 [facility] Work Phone: Comment on above: [facility] [address] [place], [place], [phone] CBC W/Diff, Automated 0.300 % Normal 0.0-0.9 [facility] prehensive Internal Medicine Work Phone: Comment on above: IG% - Immature Granu locytes (promyelocytes, myelocytes andmetamyelocytes) > 1% indicates that a LEFT SHIFT is Present. [facility] [address] [place], [place], [phone] CBC W/Diff, Automated 1.7 % Abnormal 0-1 [facility] Medicine Work Phone: Comment on above: [facility] [address] [place], [place], [phone] CBC W/Diff, Automated 3.7 % Normal 0-5 [facility] Work Phone: Comment on above: [facility] [address] [place], [place], [phone] CBC W/Diff, Automated 12.2 % Abnormal 0-10 [facility] pre[facility] Medicine Work Phone: Comment on above: [facility] [address] [place], [place], [phone] CBC W/Diff, Automated 34.5 % Normal 19-41 [facility] prehens[facility] Internal Medicine Work Phone: Comment on above: [facility] [address] [place], [place], [phone] CBC W/Diff, Automated 47.6 % Normal 47-70 [facility] pre[facility] Medicine Work Phone: Comment on above: [facility] [address] [place], [place], [phone] CBC W/Diff, Automated 10.4 fL Normal 6.2-12.0 [facility] Medicine Work Phone: Comment on above: [facility] [address] [place], [place], [phone] Comprehensive Metabolic Prof ilOrdered By: Warehouse Trainer on 05-11-2018 Comprehensive metabolic 2000 panel 9.1 mg/dL Normal 8.5-10.1 Comprehensi ve Internal Medicine Work Phone: Comment on above: [facility] [address] [place], [address] Comprehensive metabolic 2000 panel 25 U/L Normal 15-37 [facility] Work Phone: Comment on above: [facility] [address] [place], [address] Comprehensive metabolic 2000 panel 141 mmol/L Normal 136-145 [facility]pre[facility] Work Phone: Comment on above: [facility] [address] [place], [address] Comprehensive metabolic 2000 panel 0.40 mg/dL Normal 0.20-1.00 [facility] Work Phone: Comment on above: [facility] [address] [place], [address] Comprehensive metabolic 2000 panel 26.0 mmol/L Normal 21.0-32.0 [facility] Work Phone: Comment on above: [facility] [address] [place], [place], [address] Comprehensive metabolic 2000 panel 10 1 Normal 5-15 Compre[facility] ve [facility] Work Phone: Comment on above: [facility] [address] [place], [address] Comprehensive metabolic 2000 panel 28 U/L Normal 13-56 [facility] Work Phone: Comment on above: [facility] [address] [place], [address] Comprehensive metabolic 2000 panel 105 mmol/L Normal 98-107 [facility]pre[facility] Work Phone: Comment on above: [facility] [address] [place], [address] Comprehensive metabolic 2000 panel 84 U/L Normal 45-117 [facility]pre[facility] ve [facility] Work Phone: Comment on above: [facility] [address] [place], [address] Comprehensive metabolic 2000 panel 79 mg/dL Normal 74-106 [facility] Work Phone: Comment on above: Please note revised GLUCOSE reference range itocntonq50/[id number]/2018. [facility] [address] [place], [place], [address] Comprehensive metabolic 2000 panel 10 mg/dL Normal 7-18 Compre[facility] ve [facility] Medicine Work Phone: Comment on above: [facility] [address] [place], [place], [phone] Comprehensive metabolic 2000 panel 1.1 {RATIO} Normal 0.9-2.4 [facility] Work Phone: Comment on above: [facility] [address] [place], [place], [phone] Comprehensive metabolic 2000 panel 0.97 mg/dL Normal 0.55-1.02 [facility] Work Phone: Comment on above: The validity of the calculated GFR AND GFRAA in patients over70 years has not been determined. Clinical correlation isessential. [facility] [address] [place], [address] Comprehensive metabolic 2000 panel 61 mL/min Normal Comprehensi ve [facility] Medicine Work Phone: Comment on above: Non- GFR Calc [facility] [address] [place], [address] Comprehensive metabolic 2000 panel 4.0 mmol/L Normal 3.5-5.1 Comprehensi ve [facility] Medicine Work Phone: Comment on above: [facility] [address] [place], [address] Comprehensive metabolic 2000 panel 73 mL/min Normal Comprehensi ve [facility] Medicine Work Phone: Comment on above: GFR Calc [facility] [address] [place], [place], [phone] Comprehensive metabolic 2000 panel 10.3 {RATIO} Normal 10-20 [facility]pre[facility] ve [facility] Work Phone: Comment on above: [facility] [address] [place], [place], [phone] Comprehensive metabolic 2000 panel 6.9 g/dL Normal 6.4-8.2 [facility] Work Phone: Comment on above: [facility] [address] [place], [address] Comprehensive metabolic 2000 panel 3.6 g/dL Normal 3.2-5.0 [facility] Work Phone: Comment on above: [facility] [address] [place], [address] Comprehensive metabolic 2000 panel 3.3 g/dL Normal 2.2-4.2 [facility] Work Phone: Comment on above: [facility] [address] [place], [address] FerritinOrdered By: Bharath brambila on 05-11-2018 Ferritin mass conc 13 ng/mL Normal 8-252 Compre [facility] Internal Medicine Work Phone: Comment on above: [facility] [address] [place], [place], [phone] Iron+Iron Binding CapacityOr dered By: Warehouse Trainer on 05-11-2018 Iron+Iron Binding Capacity 20.1 % Normal 15.0-55.0 [facility] Work Phone: Comment on above: [facility] [address] [place], [address] Iron+Iron Binding Capacity 60 ug/dL Normal 50-170 [facility] Work Phone: Comment on above: [facility] [address] [place], [place], [phone] Iron+Iron Binding Capacity 298 ug/dL Normal 250-450 [facility] Work Phone: Comment on above: [facility] [address] [place], [place], [phone] Lipid ProfileOrdered By: Elif tem Pepper Cutter on 05-11-2018 Lipid Profile 13 mg/dL Normal 5-40 Comprehensi ve Internal Medicine Work Phone: Comment on above: [facility] [address] [place], [place], [phone] Lipid Profile 94 mg/dL Normal 0-130 Comprehensi ve [facility] Medicine Work Phone: Comment on above: [facility] [address] [place], [place], [phone] Lipid Profile 105 mg/dL Normal Compre[facility]si ve [facility] Work Phone: Comment on above: The drugs N-Acetylcy steine and Metamizole may falselydepress this assay. Reference Range HDL <40 mg/dL Low HDL Cholesterol HDL >or= 60 mg/dL High HDL Cholesterol [place] [address] [place], [place], [phone] Lipid Profile 63 mg/dL Normal Comprehensi ve [facility] Work Phone: Comment on above: The drugs N-Acetylcy steine and Metamizole may falselydepress this assay.Serum Triglycerides Reference Interval Normal <150 mg/dL Borderline high 150 - 199 mg/dL High 200 - 499 mg/dL Very High > or = 500 mg/dL [facility] [address] [place], [place], [phone] Lipid Profile 212 mg/dL Abnormal Comprehensi ve Internal Medicine Work Phone: Comment on above: <200 mg/dL Desirable 200-240 mg/dL Borderline >240 mg/dL High Risk [facility] [address] [place], [place], [phone] MicroalbOrdered By: Bharath brambila on 05-11-2018 Microalb 29.8 {mg/g_CRE} Normal Comprehen sive Internal Medicine Work Phone: Comment on above: [facility] [address] [place], [place], [phone] Microalb 18.8 mg/L Normal [facility] Work Phone: Comment on above: [facility] [address] [place], [place], [phone] Microalb 63.10 mg/dL Normal [facility] Work Phone: Comment on above: [facility] [facility] [address] [place], [place], [id number] Thyroid Stim Hormone (TSH)Or dered By: Warehouse Trainer on 05-11-2018 Thyrotropin Qn 1.39 {uIU/mL} Normal 0.358-3.74 Compreh ensive Internal Medicine Work Phone: Comment on above: [facility] [address] [place], [place], [phone] Urinalysis, CompleteOrdered By: Warehouse Trainer on 05-11-2018 Protein mass conc (U) Negative Normal Com prehensive Internal Medicine Work Phone: Comment on above: How was Urine Obtain ed? [facility] [address] [place], [address] RBC #/vol (U) 0-5 SEEN Normal 0-5 Comprehensi ve Internal Medicine Work Phone: Comment on above: How was Urine Obtain ed? [facility] [address] [place], [place], [phone] Urinalysis complete panel - Urine 25 /ul Abnormal Comprehensive Internal Medicine Work Phone: Comment on above: How was Urine Obtain ed? [facility] [address] [place], [place], [phone] Urinalysis complete panel - Urine Normal Normal [facility] Internal Medicine Work Phone: Comment on above: How was Urine Obtain ed? [facility] [address] [place], [address] Urinalysis complete panel - Urine Clear Normal Comprehensive Internal Medicine Work Phone: Comment on above: How was Urine Obtain ed? [facility] [address] [place], [address] Urinalysis complete panel - Urine Yellow Normal [facility] Internal Medicine Work Phone: Comment on above: How was Urine Obtain ed? [facility] [address] [place], [address] Urinalysis complete panel - Urine 0 SEEN Normal [facility] Internal Medicine Work Phone: Comment on above: How was Urine Obtain ed? [facility] [address] [place], [address] Urinalysis complete panel - Urine RARE Normal [facility] Medicine Work Phone: Comment on above: How was Urine Obtain ed? [facility] [address]xc[address] [place], [address] Urinalysis complete panel - Urine 0-5 SEEN Normal 0-5 [facility] Internal Medicine Work Phone: Comment on above: How was Urine Obtain ed? [facility] [address] [place], [address] Urinalysis complete panel - Urine Negative Normal [facility] Medicine Work Phone: Comment on above: How was Urine Obtain ed? [facility] [address] [place], [address] Urinalysis complete panel - Urine 8.0 1 Normal 5.0 - 8.0 [facility] Medicine Work Phone: Comment on above: How was Urine Obtain ed? [facility] [address] [place], [phone] Urinalysis complete panel - Urine 1.010 1 Normal 1.002-1.03 0 [facility] Medicine Work Phone: Comment on above: How was Urine Obtain ed? [facility] [address] [place], [phone] Vitamin Y74Jocdamd By: Jahaira falk Pepper Cutter on 05-11-2018 Cobalamin (Vitamin B12) mass conc 904 pg/mL Normal 211-911 [facility] Internal Medicine Work Phone: Comment on above: [facility] [address] [place], [phone] Vitamin D,25 HydroxyOrdered By: Warehouse Trainer on 05-11-2018 Vitamin D,25 Hydroxy 59.7 ng/mL Normal 29.95-1 00. 01 [facility] Work Phone: Comment on above: Vitamin D 25(OH) Sta tus Range Deficiency <20 ng/mL (50nmol/L) Insuffciency 20 - 30 ng/mL (50 - 75 nmol/L) Sufficiency 30 - 100 ng/mL (75 - 250 nmol/L) Toxicity >100 ng/mL (>250 nmol/L) [facility] [address] [place], [phone] No Panel Informationon 03-19 Stool Occult Blood (TAMI) [facility] Stool Occult Blood (TAMI) [facility] Stool Occult Blood iFOBOrder ed By: Warehouse Trainer on 03-19-2018 Lower GI hemoglobin IA Ql (St) See Note Normal [facility] Internal Medicine Work Phone: Comment on above: Reason for Laborator y Test . STOB iFOBOccult Blood Negative [facility] [address] [place], [phone] CBC W/Diff, AutomatedOrdered By: Warehouse Trainer on 03-18-2018 CBC W/Diff, Automated 11.6 g/dL Abnormal 12.0-15.0 [facility] prehensive Internal Medicine Work Phone: Comment on above: Reason for Laborator y Test [facility] [address] [place], [address] CBC W/Diff, Automated 0.8 % Normal 0-1 Com prehensive Internal Medicine Work Phone: Comment on above: Reason for Laborator y Test [facility] [address] [place], [address] CBC W/Diff, Automated 0.000 % Normal 0.0-0.9 Com prehensive Internal Medicine Work Phone: Comment on above: IG% - Immature Granu locytes (promyelocytes, myelocytes andmetamyelocytes) > 1% indicates that a LEFT SHIFT is Present. Reason for Laborator y Test [facility] [address] [place], [address] CBC W/Diff, Automated 3.2 {X10_3/uL} Normal 2.0-7.7 [facility] Internal Medicine Work Phone: Comment on above: Reason for Laborator y Test [facility] [address] [place], [address] CBC W/Diff, Automated 1.41 {X10_3/ul} Normal 0.83-4.51 [facility] Internal Medicine Work Phone: Comment on above: Reason for Laborator y Test [facility] [address] [place], [address] CBC W/Diff, Automated 3.9 % Normal 0-5 Com prehensive Internal Medicine Work Phone: Comment on above: Reason for Laborator y Test [facility] [address] [place], [address] CBC W/Diff, Automated 9.2 % Normal 0-10 Com prehensive Internal Medicine Work Phone: Comment on above: Reason for Laborator y Test [facility] [address] [place], [address] CBC W/Diff, Automated 26.5 % Normal 19-41 Com prehensive Internal Medicine Work Phone: Comment on above: Reason for Laborator y Test [facility] [address] [place], [address] CBC W/Diff, Automated 59.6 % Normal 47-70 [facility] prehensive Internal Medicine Work Phone: Comment on above: Reason for Laborator y Test [facility] [address] [place], [address] CBC W/Diff, Automated 9.4 fL Normal 6.2-12.0 [facility] prehensive Internal Medicine Work Phone: Comment on above: Reason for Laborator y Test [facility] [address] [place], [address] CBC W/Diff, Automated 289 K/mm3 Normal 150-450 [facility] Work Phone: Comment on above: Reason for Laborator y Test [facility] [address] [place], [address] CBC W/Diff, Automated 50.4 fL Abnormal 35.1-43.9 [facility] Work Phone: Comment on above: Reason for Laborator y Test [facility] [address] [place], [address] CBC W/Diff, Automated 15.8 % Abnormal 11.6-14.6 [facility] Work Phone: Comment on above: Reason for Laborator y Test [facility] [address] [place], [address] CBC W/Diff, Automated 31.3 {g/gl} Abnormal 32-36 [facility] Work Phone: Comment on above: Reason for Laborator y Test [facility] [address] [place], [place], [address] CBC W/Diff, Automated 27.8 pg Normal 27.0-32.0 Com prehensive Internal Medicine Work Phone: Comment on above: Reason for Laborator y Test [facility] [address] [place], [place], [address] CBC W/Diff, Automated 88.8 fL Normal 81-99 Com prehensive Internal Medicine Work Phone: Comment on above: Reason for Laborator y Test [facility] [address] [place], [address] CBC W/Diff, Automated 37.1 % Normal 37-47 [facility] prehensive Internal Medicine Work Phone: Comment on above: Reason for Laborator y Test [facility] [address] [place], [address] CBC W/Diff, Automated 4.18 {M/mm3} Abnormal 4.2-5.4 [facility] Work Phone: Comment on above: Reason for Laborator y Test [facility] [address] [place], [address] CBC W/Diff, Automated 5.3 K/mm3 Normal 4.4-11.0 [facility] prehensive Internal Medicine Work Phone: Comment on above: Reason for Laborator y Test [facility] [address] [place], [place], [phone] Comprehensive Metabolic Prof ilOrdered By: Warehouse Trainer on 03-18-2018 Comprehensive metabolic 2000 panel 97 U/L Normal 45-117 Comprehensi ve Internal Medicine Work Phone: Comment on above: Reason for Laborator y Test [facility] [address] [place], [address] Comprehensive metabolic 2000 panel 7 1 Normal 5-15 Comprehensi ve Internal Medicine Work Phone: Comment on above: Reason for Laborator y Test [facility] [address] [place], [place], [phone] Comprehensive metabolic 2000 panel 29 U/L Normal 13-56 Comprehensi ve Internal Medicine Work Phone: Comment on above: Reason for Laborator y Test [facility] [address] [place], [place], [address] Comprehensive metabolic 2000 panel 141 mmol/L Normal 136-145 Comprehensi ve Internal Medicine Work Phone: Comment on above: Reason for Laborator y Test [facility] [address] [place], [place], [address] Comprehensive metabolic 2000 panel 105 mmol/L Normal 98-107 Comprehensi ve Internal Medicine Work Phone: Comment on above: Reason for Laborator y Test [facility] [address] [place], [place], [address] Comprehensive metabolic 2000 panel 4.6 mmol/L Normal 3.5-5.1 Comprehensi ve Internal Medicine Work Phone: Comment on above: Reason for Laborator y Test [facility] [address] [place], [place], [address] Comprehensive metabolic 2000 panel 0.20 mg/dL Normal 0.20-1.00 Comprehensi ve Internal Medicine Work Phone: Comment on above: Reason for Laborator y Test [facility] [address] [place], [place], [address] Comprehensive metabolic 2000 panel 29.0 mmol/L Normal 21.0-32.0 Comprehensi ve Internal Medicine Work Phone: Comment on above: Reason for Laborator y Test [facility] [address] [place], [place], [address] Comprehensive metabolic 2000 panel 93 mg/dL Normal 74-106 Comprehensi ve Internal Medicine Work Phone: Comment on above: Please note revised GLUCOSE reference range mjreqqkdm60/02/2018. Reason for Laborator y Test [facility] [address] [place], [place], [address] Comprehensive metabolic 2000 panel 20 mg/dL Abnormal 7-18 Comprehensi ve Internal Medicine Work Phone: Comment on above: Reason for Laborator y Test [facility] [address] [place], [place], [address] Comprehensive metabolic 2000 panel 1.18 mg/dL Abnormal 0.55-1.02 Comprehensi ve Internal Medicine Work Phone: Comment on above: The validity of the calculated GFR AND GFRAA in patients over70 years has not been determined. Clinical correlation isessential. Reason for Laborator y Test [facility] [address] [place], [place], [phone] Comprehensive metabolic 2000 panel 48 mL/min Abnormal Comprehensi ve Internal Medicine Work Phone: Comment on above: Non- GFR Calc Reason for Laborator y Test [facility] Eqs[address] [place], [place], [address] Comprehensive metabolic 2000 panel 59 mL/min Abnormal Comprehensi ve Internal Medicine Work Phone: Comment on above: GFR Calc Reason for Laborator y Test [facility] [address] [place], [place], [phone] Comprehensive metabolic 2000 panel 44.99 ml/min Normal Comprehensi ve Internal Medicine Work Phone: Comment on above: Reason for Laborator y Test [facility] [address] [place], [place], [address] Comprehensive metabolic 2000 panel 16.9 {RATIO} Normal 10-20 Comprehensi ve Internal Medicine Work Phone: Comment on above: Reason for Laborator y Test [facility] [address] [place], [place], [address] Comprehensive metabolic 2000 panel 6.9 g/dL Normal 6.4-8.2 Comprehensi ve Internal Medicine Work Phone: Comment on above: Reason for Laborator y Test [facility] [address] [place], [place], [address] Comprehensive metabolic 2000 panel 3.6 g/dL Normal 3.2-5.0 Comprehensi ve Internal Medicine Work Phone: Comment on above: Reason for Laborator y Test [facility] [address] [place], [place], [address] Comprehensive metabolic 2000 panel 3.3 g/dL Normal 2.2-4.2 Comprehensi ve Internal Medicine Work Phone: Comment on above: Reason for Laborator y Test [facility] [address] [place], [place], [address] Comprehensive metabolic 2000 panel 1.1 {RATIO} Normal 0.9-2.[address] [facility] ve Internal Medicine Work Phone: Comment on above: Reason for Laborator y Test [facility] [address] [place], [place], [address] Comprehensive metabolic 2000 panel 8.9 mg/dL Normal 8.5-10.1 Comprehensi ve Internal Medicine Work Phone: Comment on above: Reason for Laborator y Test [facility] [address] [place], [place], [address] Comprehensive metabolic 2000 panel 20 U/L Normal 15-37 Comprehensi ve Internal Medicine Work Phone: Comment on above: Reason for Laborator y Test [facility] [address] [place], [place], [address] FerritinOrdered By: Bharath brambila on 03-18-2018 Ferritin mass conc 7 ng/mL 8-252 [facility] Internal Medicine Work Phone: Comment on above: ADD ON TESTING USE X TRA TUBESReason for Laboratory Test .[facility] [address] [place], [address] Iron measurement (mass/mass) on 03-18-2018 Iron (Unsp spec) [Mass/Mass] 29 ug/dL 50-170 [facility] Iron+Iron Binding CapacityOr dered By: Warehouse Trainer on 03-18-2018 Iron+Iron Binding Capacity 8.6 % Abnormal 15.0-55.0 [facility] Work Phone: Comment on above: ADD ON TESTING USE X TRA TUBESReason for Laboratory Test .[facility] [address] [place], [address] Iron+Iron Binding Capacity 29 ug/dL Abnormal 50-170 [facility] Medicine Work Phone: Comment on above: ADD ON TESTING USE X TRA TUBESReason for Laboratory Test .[facility] [address] [place], [address] Iron+Iron Binding Capacity 337 ug/dL Normal 250-450 [facility] Medicine Work Phone: Comment on above: ADD ON TESTING USE X TRA TUBESReason for Laboratory Test .[facility] [address] [place], [address] No Panel Informationon 03-18 Thyroid Stimulating Hormone (TSH) 1.01 uIU/mL 0.358-3.74 [facility] Total Iron Binding Capacity 337 ug/dL 250-450 [facility] Serum or plasma iron saturat ion measurement (mass fraction)on 03-18-2018 Iron saturation [Mass fraction] 8.6 % 15.0-55.0 [facility] Thyroid Stim Hormone (TSH)Or dered By: Warehouse Trainer on 03-18-2018 Thyrotropin Qn 1.01 {uIU/mL} Normal 0.358-3.74 Compreh ensive Internal Medicine Work Phone: Comment on above: ADD ON TESTING USE X TRA TUBESReason for Laboratory Test .[facility] [address] [place], [place], [address] Vitamin A20Efllmka By: Jahaira falk Pepper Cutter on 03-18-2018 Cobalamin (Vitamin B12) mass conc 269 pg/mL 211-911 [facility] Medicine Work Phone: Comment on above: Reason for Laborator y Test .[facility] [address] [place], [place], [address] Basophil percentageon 2017 Basophil percentage 3.2 mg/dL 2.5-4.9 [facility] CBC W/Diff, AutomatedOrdered By: Warehouse Trainer on 09-10-2017 CBC W/Diff, Automated 46.0 fL Abnormal 35.1-43.9 [facility] prehensive Internal Medicine Work Phone: Comment on above: Reason for Laborator y Test .[facility] [address] [place], [place], [address] CBC W/Diff, Automated 13.9 % Normal 11.6-14.6 [facility] prehensive Internal Medicine Work Phone: Comment on above: Reason for Laborator y Test .[facility] [address] [place], [place], [address] CBC W/Diff, Automated 332 K/mm3 Normal 150-450 [facility] prehensive Internal Medicine Work Phone: Comment on above: Reason for Laborator y Test .[facility] [address] [place], [place], [address] CBC W/Diff, Automated 4.26 {M/mm3} Normal 4.2-5.4 [facility] Work Phone: Comment on above: Reason for Laborator y Test .[facility] [address] [place], [place], [address] CBC W/Diff, Automated 12.5 g/dL Normal 12.0-15.0 [facility] prehensive Internal Medicine Work Phone: Comment on above: Reason for Laborator y Test .[facility] [address] [place], [address] CBC W/Diff, Automated 39.6 % Normal 37-47 [facility] prehensive Internal Medicine Work Phone: Comment on above: Reason for Laborator y Test .[facility] [address] [place], [address] CBC W/Diff, Automated 93.0 fL Normal 81-99 [facility] Work Phone: Comment on above: Reason for Laborator y Test .[facility] [address] [place], [address] CBC W/Diff, Automated 29.3 pg Normal 27.0-32.0 [facility] Work Phone: Comment on above: Reason for Laborator y Test .[facility] [address] [place], [address] CBC W/Diff, Automated 31.6 {g/gl} Abnormal 32-36 [facility] Internal Medicine Work Phone: Comment on above: Reason for Laborator y Test .[facility] [address] [place], [address] CBC W/Diff, Automated 0.000 % Normal 0.0-0.9 [facility] Internal Medicine Work Phone: Comment on above: IG% - Immature Granu locytes (promyelocytes, myelocytes andmetamyelocytes) > 1% indicates that a LEFT SHIFT is Present. Reason for Laborator y Test .[facility] [address] [place], [address] CBC W/Diff, Automated 1.22 {X10_3/ul} Normal 0.83-4.51 [facility] Internal Medicine Work Phone: Comment on above: Reason for Laborator y Test .[facility] [address] [place], [address] CBC W/Diff, Automated 3.5 K/mm3 Abnormal 4.4-11.0 [facility] Work Phone: Comment on above: Reason for Laborator y Test .[facility] [address] [place], [address] CBC W/Diff, Automated 10.0 fL Normal 6.2-12.0 Com prehensive Internal Medicine Work Phone: Comment on above: Reason for Laborator y Test .[facility] [address] [place], [address] CBC W/Diff, Automated 45.4 % Abnormal 47-70 Com prehensive Internal Medicine Work Phone: Comment on above: Reason for Laborator y Test .[facility] [address] [place], [address] CBC W/Diff, Automated 34.7 % Normal 19-41 Com prehensive Internal Medicine Work Phone: Comment on above: Reason for Laborator y Test .[facility] [address] [place], [address] CBC W/Diff, Automated 14.5 % Abnormal 0-10 Com prehensive Internal Medicine Work Phone: Comment on above: Reason for Laborator y Test .[facility] [address] [place], [address] CBC W/Diff, Automated 4.3 % Normal 0-5 [facility] prehensive Internal Medicine Work Phone: Comment on above: Reason for Laborator y Test .[facility] [address] [place], [address] CBC W/Diff, Automated 1.1 % Abnormal 0-1 [facility] prehensive Internal Medicine Work Phone: Comment on above: Reason for Laborator y Test .[facility] [address] [place], [address] CBC W/Diff, Automated 1.6 {X10_3/uL} Abnormal 2.0-7.7 [facility] Work Phone: Comment on above: Reason for Laborator y Test .[facility] [address] [place], [address] Laboratory - Chemistry and C hemistry - challengeon 09-10-2017 Magnesium (Unsp spec) [Moles/Vol] 2.1 mg/dL 1.6-2.6 [facility] Comment on above: Please note revised Magnesium reference range effective 2017. MagnesiumOrdered By: Warehouse Trainer on 09-10-2017 Magnesium mass conc 2.1 mg/dL Normal 1.6-2.6 [facility] Work Phone: Comment on above: Please note revised Magnesium reference range fxcypkhgb57/15/2018. Reason for Laborator y Test [facility] [address]yes[address] [place], [place], [address] PhosphorusOrdered By: Warehouse Trainer on 09-10-2017 Phosphate mass conc 3.2 mg/dL Normal 2.5-4.9 [facility] Internal Medicine Work Phone: Comment on above: Reason for Laborator y Test [facility] [address] [place], [place], [address] CBC W/Diff, AutomatedOrdered By: Warehouse Trainer on 09-08-2017 CBC W/Diff, Automated COMMENT Normal [facility] prehensive Internal Medicine Work Phone: Comment on above: SLIDE SCANNED - NEUT ROPENIA NOTED. [facility] [address] [place], [place], [address] CBC W/Diff, Automated 92.0 fL Normal 81-99 [facility] Work Phone: Comment on above: [facility] [address] [place], [place], [address] CBC W/Diff, Automated 1.13 {X10_3/ul} Normal 0.83-4.51 [facility] Medicine Work Phone: Comment on above: [facility] [address] [place], [address] CBC W/Diff, Automated 1.0 {X10_3/uL} Abnormal 2.0-7.7 [facility] Work Phone: Comment on above: [facility] [address] [place], [address] CBC W/Diff, Automated 0.400 % Normal 0.0-0.9 Com prehensive Internal Medicine Work Phone: Comment on above: IG% - Immature Granu locytes (promyelocytes, myelocytes andmetamyelocytes) > 1% indicates that a LEFT SHIFT is Present. [facility] [address] [place], [place], [address] CBC W/Diff, Automated 2.1 % Abnormal 0-1 Com prehensive Internal Medicine Work Phone: Comment on above: [facility] [address] [place], [place], [address] CBC W/Diff, Automated 6.0 % Abnormal 0-5 Com prehensive Internal Medicine Work Phone: Comment on above: [facility] [address] [place], [place], [address] CBC W/Diff, Automated 16.7 % Abnormal 0-10 Com prehensive Internal Medicine Work Phone: Comment on above: [facility] [address] [place], [place], [address] CBC W/Diff, Automated 40.1 % Normal 19-41 [facility] prehensive Internal Medicine Work Phone: Comment on above: [facility] [address] [place], [place], [address] CBC W/Diff, Automated 34.7 % Abnormal 47-70 [facility] prehensive Internal Medicine Work Phone: Comment on above: [facility] [address] [place], [place], [phone]) CBC W/Diff, Automated 10.3 fL Normal 6.2-12.0 Com prehensive Internal Medicine Work Phone: Comment on above: [facility] [address] [place], [place], [address] CBC W/Diff, Automated 311 K/mm3 Normal 150-450 Com prehensive Internal Medicine Work Phone: Comment on above: [facility] [address] [place], [address] CBC W/Diff, Automated 45.5 fL Abnormal 35.1-43.9 [facility] prehensive Internal Medicine Work Phone: Comment on above: [facility] [address] [place], [place], [phone] CBC W/Diff, Automated 13.7 % Normal 11.6-14.6 [facility] prehensive Internal Medicine Work Phone: Comment on above: [facility] [address] [place], [address] CBC W/Diff, Automated 32.1 {g/gl} Normal 32-36 [facility] Work Phone: Comment on above: [facility] [address] [place], [address] CBC W/Diff, Automated 29.5 pg Normal 27.0-32.0 [facility] prehensive Internal Medicine Work Phone: Comment on above: [facility] [address] [place], [address] CBC W/Diff, Automated 39.0 % Normal 37-47 [facility] prehensive Internal Medicine Work Phone: Comment on above: [facility] [address] [place], [address] CBC W/Diff, Automated 12.5 g/dL Normal 12.0-15.0 [facility] prehensive Internal Medicine Work Phone: Comment on above: [facility] [address] [place], [address] CBC W/Diff, Automated 4.24 {M/mm3} Normal 4.2-5.4 [facility] Work Phone: Comment on above: [facility] [address] [place], [place], [phone] CBC W/Diff, Automated 2.8 K/mm3 Abnormal 4.4-11.0 Com prehensive Internal Medicine Work Phone: Comment on above: [facility] [address] [place], [place], [address] Comprehensive Metabolic Prof ilOrdered By: Warehouse Trainer on 09-08-2017 Comprehensive metabolic 2000 panel 25.0 mmol/L Normal 21.0-32.0 Comprehensi ve Internal Medicine Work Phone: Comment on above: [facility] [address] [place], [place], [address] Comprehensive metabolic 2000 panel 3.3 g/dL Normal 2.2-4.2 Comprehensi ve Internal Medicine Work Phone: Comment on above: [facility] [address] [place], [place], [address] Comprehensive metabolic 2000 panel 3.8 g/dL Normal 3.4-5.0 Comprehensi ve Internal Medicine Work Phone: Comment on above: Please note revised Albumin AND Globulin reference rangeeffective 2017. [facility] [address] [place], [place], [phone] Comprehensive metabolic 2000 panel 7.1 g/dL Normal 6.4-8.2 Comprehensi ve Internal Medicine Work Phone: Comment on above: [facility] [address] [place], [place], [address] Comprehensive metabolic 2000 panel 17.5 {RATIO} Normal 10-20 Comprehensi ve Internal Medicine Work Phone: Comment on above: [facility] [address] [place], [place], [address] Comprehensive metabolic 2000 panel 4.2 mmol/L Normal 3.5-5.1 Comprehensi ve Internal Medicine Work Phone: Comment on above: [facility] [address] [place], [address] Comprehensive metabolic 2000 panel 16 mg/dL Normal 7-18 Comprehensi ve Internal Medicine Work Phone: Comment on above: [facility] [address] [place], [address] Comprehensive metabolic 2000 panel 0.30 mg/dL Normal 0.20-1.00 Comprehensi ve Internal Medicine Work Phone: Comment on above: [facility] [address] [place], [address] Comprehensive metabolic 2000 panel 139 mmol/L Normal 136-145 Comprehensi ve Internal Medicine Work Phone: Comment on above: [facility] [address] [place], [address] Comprehensive metabolic 2000 panel 25 U/L Normal 12-78 Comprehensi ve Internal Medicine Work Phone: Comment on above: [facility] [address] [place], [address] Comprehensive metabolic 2000 panel 70 U/L Normal 45-117 Comprehensi ve Internal Medicine Work Phone: Comment on above: [facility] [address] [place], [address] Comprehensive metabolic 2000 panel 21 U/L Normal 15-37 Comprehensi ve Internal Medicine Work Phone: Comment on above: [facility] [address] [place], [address] Comprehensive metabolic 2000 panel 8.7 mg/dL Normal 8.5-10.1 Comprehensi ve Internal Medicine Work Phone: Comment on above: [facility] [address] [place], [address] Comprehensive metabolic 2000 panel 1.2 {RATIO} Normal 0.9-2.4 Comprehensi ve Internal Medicine Work Phone: Comment on above: [facility] [address] [place], [place], [phone] Comprehensive metabolic 2000 panel 106 mmol/L Normal 98-107 Comprehensi ve Internal Medicine Work Phone: Comment on above: [facility] [address] [place], [place], [address] Comprehensive metabolic 2000 panel 86 mg/dL Normal 70-110 Comprehensi ve Internal Medicine Work Phone: Comment on above: [facility] [address] [place], [place], [address] Comprehensive metabolic 2000 panel 0.92 mg/dL Normal 0.55-1.02 Comprehensi ve Internal Medicine Work Phone: Comment on above: The validity of the calculated GFR AND GFRAA in patients over70 years has not been determined. Clinical correlation isessential. [facility] [address] [place], [place], [address] Comprehensive metabolic 2000 panel 8 1 Normal 5-15 Comprehensi ve Internal Medicine Work Phone: Comment on above: [facility] [address] [place], [place], [address] Comprehensive metabolic 2000 panel 65 mL/min Normal Comprehensi ve Internal Medicine Work Phone: Comment on above: Non- GFR Calc [facility] [address] [place], [place], [address] Comprehensive metabolic 2000 panel 79 mL/min Normal Comprehensi ve Internal Medicine Work Phone: Comment on above: GFR Calc [facility] [address] [place], [place], [address] Lipid ProfileOrdered By: Elif tem Pepper Cutter on 09-08-2017 Lipid Profile 17 mg/dL Normal 5-40 Comprehensi ve Internal Medicine Work Phone: Comment on above: [facility] [address] [place], [place], [address] Lipid Profile 100 mg/dL Normal 0-130 Comprehensi ve Internal Medicine Work Phone: Comment on above: [facility] [address] [place], [place], [address] Lipid Profile 95 mg/dL Normal Comprehensi ve Internal Medicine Work Phone: Comment on above: The drugs N-Acetylcy steine and Metamizole may falselydepress this assay. Reference Range HDL <40 mg/dL Low HDL Cholesterol HDL >or= 60 mg/dL High HDL Cholesterol [facility] [address] [place], [place], [address] Lipid Profile 85 mg/dL Normal Comprehensi ve Internal Medicine Work Phone: Comment on above: The drugs N-Acetylcy steine and Metamizole may falselydepress this assay.Serum Triglycerides Reference Interval Normal <150 mg/dL Borderline high 150 - 199 mg/dL High 200 - 499 mg/dL Very High > or = 500 mg/dL [facility] [address] [place], [place], [address] Lipid Profile 212 mg/dL Abnormal Comprehensi ve Internal Medicine Work Phone: Comment on above: <200 mg/dL Desirable 200-240 mg/dL Borderline >240 mg/dL High Risk [facility] [address] [place], [place], [address] MicroalbOrdered By: Bharath brambila on 09-08-2017 Microalb 13.6 {mg/g_CRE} Normal Comprehen sive Internal Medicine Work Phone: Comment on above: [facility] [address] [place], [place], [address] Microalb 16.6 mg/L Normal Comprehensive Internal Medicine Work Phone: Comment on above: [facility] [address] [place], [place], [address] Microalb 122.00 mg/dL Normal Comprehensiv e Internal Medicine Work Phone: Comment on above: [facility] [address] [place], [address] Thyroid Stim Hormone (TSH)Or dered By: Warehouse Trainer on 09-08-2017 Thyrotropin Qn 2.28 {uIU/mL} Normal 0.358-3.74 Compreh ensive Internal Medicine Work Phone: Comment on above: [facility] [address] [place], [address] Urinalysis, CompleteOrdered By: Warehouse Trainer on 09-08-2017 Protein mass conc (U) Negative Normal Com prehensive Internal Medicine Work Phone: Comment on above: How was Urine Obtain ed? [facility] [address] [place], [id number] RBC #/vol (U) 0 SEEN Normal 0-5 Comprehensi ve Internal Medicine Work Phone: Comment on above: How was Urine Obtain ed? [facility] [address]orrhbmp[address] [place], [id number] Urinalysis complete panel - Urine 0-5 SEEN Normal 5-10 Comprehensive Internal Medicine Work Phone: Comment on above: How was Urine Obtain ed? [facility] [address] [place], [address] Urinalysis complete panel - Urine 500 /ul Abnormal Comprehensive Internal Medicine Work Phone: Comment on above: How was Urine Obtain ed? [facility] [address] [place], [phone] Urinalysis complete panel - Urine Negative Normal Comprehensive Internal Medicine Work Phone: Comment on above: How was Urine Obtain ed? [facility] [address] [place], [address] Urinalysis complete panel - Urine Normal Normal Comprehensive Internal Medicine Work Phone: Comment on above: How was Urine Obtain ed? [facility] [address] [place], [address] Urinalysis complete panel - Urine 8.0 1 Normal 5.0 - 8.0 Comprehensive Internal Medicine Work Phone: Comment on above: How was Urine Obtain ed? [facility] [address] [place], [address] Urinalysis complete panel - Urine 1.015 1 Normal 1.002-1.03 0 Comprehensive Internal Medicine Work Phone: Comment on above: How was Urine Obtain ed? [facility] [address] [place], [address] Urinalysis complete panel - Urine Sl. Cloudy Normal Comprehensive Internal Medicine Work Phone: Comment on above: How was Urine Obtain ed? [facility] [address] [place], [address] Urinalysis complete panel - Urine Yellow Normal Comprehensive Internal Medicine Work Phone: Comment on above: How was Urine Obtain ed? [facility] [address] [place], [address] Urinalysis complete panel - Urine 0 SEEN Normal Comprehensive Internal Medicine Work Phone: Comment on above: How was Urine Obtain ed? [facility] [address] [place], [address] Urinalysis complete panel - Urine RARE Normal Comprehensive Internal Medicine Work Phone: Comment on above: How was Urine Obtain ed? [facility] [address] [place], [address] Vitamin D,25 HydroxyOrdered By: Warehouse Trainer on 01-15-2018 Vitamin D,25 Hydroxy 50.6 ng/mL Normal Comp rehensive Internal Medicine Work Phone: Comment on above: Vitamin D 25(OH) Sta tus Range Deficiency <20 ng/mL (50nmol/L) Insuffciency 20 - 30 ng/mL (50 - 75 nmol/L) Sufficiency 30 - 100 ng/mL (75 - 250 nmol/L) Toxicity >100 ng/mL (>250 nmol/L) [facility] [address] [place], [address] CBC W/Diff, Auto - EPLAB Onl yOrdered By: Warehouse Trainer on 03-10-2017 Basophils/100 WBC (Bld) 1.3 % Abnormal 0-1 Comprehensive Internal Medicine Work Phone: Comment on above: Order Date: 09/12/16 Order Info: 0184-1E - *CBC w/Diff - oncology ONLYAt [facility] Medical Oncologypatients receive CBC w/auto Differential ONLY. Physicianwill place an order for a manual differential or Pathologistreview at his discretion. [facility]. [address] [place] [address] [address] THREAD MILLING MACHINE SET UP OPERATOR: MAGNOLIA HOLLY DO PH:[phone]-Titus Medical Center [address] [place], [place], [address] CBC W Auto Differential panel - Blood 2.3 {X10_3/uL} Normal 2.0-7.7 Comprehensive Internal Medicine Work Phone: Comment on above: Order Date: 09/12/16 Order Info: 0184-1E - *CBC w/Diff - oncology ONLYAt [facility] Medical Oncologypatients receive CBC w/auto Differential ONLY. Physicianwill place an order for a manual differential or Pathologistreview at his discretion. [facility]. [address] [place] [address] [address] THREAD MILLING MACHINE SET UP OPERATOR: MAGNOLIA HOLLY DO PH:[phone]-Titus Medical Center [address] [place], [place], [address] Eosinophils/100 WBC (Bld) 5.2 % Abnormal 0-5 Comprehensive Internal Medicine Work Phone: Comment on above: Order Date: 09/12/16 Order Info: 0184-1E - *CBC w/Diff - oncology ONLYAt [facility] Medical Oncologypatients receive CBC w/auto Differential ONLY. Physicianwill place an order for a manual differential or Pathologistreview at his discretion. [facility]. [address] [place] [address] [address] THREAD MILLING MACHINE SET UP OPERATOR: MAGNOLIA HOLLY DO PH:[phone]-Titus Medical Center [address] [place], [place], [phone] Erythrocyte distribution width Ratio (RBC) 13.6 % Normal 11.6-14.6 Comprehensive Internal Medicine Work Phone: Comment on above: Order Date: 09/12/16 Order Info: 0184-1E - *CBC w/Diff - oncology ONLYAt [facility] Medical Oncologypatients receive CBC w/auto Differential ONLY. Physicianwill place an order for a manual differential or Pathologistreview at his discretion. [facility]. [address] [place] [address] [address] THREAD MILLING MACHINE SET UP OPERATOR: MAGNOLIA HOLLY DO PH:[phone]-Titus Medical Center [address] [place], [place], [address] Hematocrit Volume Fraction (Bld) 40.8 % Normal 37-47 Comprehensive Internal Medicine Work Phone: Comment on above: Order Date: 09/12/16 Order Info: 0184-1E - *CBC w/Diff - oncology ONLYAt [facility] Medical Oncologypatients receive CBC w/auto Differential ONLY. Physicianwill place an order for a manual differential or Pathologistreview at his discretion. [facility]. [address] [place] [address] [address] THREAD MILLING MACHINE SET UP OPERATOR: MAGNOLIA HOLLY DO PH:[phone]-Titus Medical Center [address] [place], [place], [address] Hemoglobin mass conc (Bld) 13.9 g/dL Normal 12.0-15.0 Comprehensive Internal Medicine Work Phone: Comment on above: Order Date: 09/12/16 Order Info: 0184-1E - *CBC w/Diff - oncology ONLYAt [facility] Medical Oncologypatients receive CBC w/auto Differential ONLY. Physicianwill place an order for a manual differential or Pathologistreview at his discretion. [facility]. [address] [place] [address] [address] THREAD MILLING MACHINE SET UP OPERATOR: MAGNOLIA HOLLY DO PH:[phone]-Titus Medical Center [address] [place], [place], [phone] Lymphocytes #/vol (Bld) 1.28 {X10_3/uL} Normal 0.83-4.51 Comprehensive Internal Medicine Work Phone: Comment on above: Order Date: 09/12/16 Order Info: 0184-1E - *CBC w/Diff - oncology ONLYAt [facility] Medical Oncologypatients receive CBC w/auto Differential ONLY. Physicianwill place an order for a manual differential or Pathologistreview at his discretion. [facility]. [address] [place] [address] [address] THREAD MILLING MACHINE SET UP OPERATOR: MAGNOLIA HOLLY DO PH:[phone]-Titus Medical Center [address] [place], [place], [phone] Lymphocytes/100 WBC (Bld) 29.2 % Normal 19-41 Comprehensive Internal Medicine Work Phone: Comment on above: Order Date: 09/12/16 Order Info: 0184-1E - *CBC w/Diff - oncology ONLYAt [facility] Medical Oncologypatients receive CBC w/auto Differential ONLY. Physicianwill place an order for a manual differential or Pathologistreview at his discretion. [facility]. [address] [place] [address] [address] THREAD MILLING MACHINE SET UP OPERATOR: MAGNOLIA HOLLY DO PH:[phone]-Titus Medical Center [address] [place], [place], [address] MCH Entitic mass (RBC) 32.2 pg Abnormal 27.0-32.0 Comprehensive Internal Medicine Work Phone: Comment on above: Order Date: 09/12/16 Order Info: 0184-1E - *CBC w/Diff - oncology ONLYAt [facility] Medical Oncologypatients receive CBC w/auto Differential ONLY. Physicianwill place an order for a manual differential or Pathologistreview at his discretion. [facility]. [address] [place] [address] [address] THREAD MILLING MACHINE SET UP OPERATOR: MAGNOLIA HOLLY DO PH:[phone]-Titus Medical Center [address] [place], [place], [address] MCHC mass conc (RBC) 34.1 g/dL Normal 32-36 [facility] Internal Medicine Work Phone: Comment on above: Order Date: 09/12/16 Order Info: 0184-1E - *CBC w/Diff - oncology ONLYAt [facility] Medical Oncologypatients receive CBC w/auto Differential ONLY. Physicianwill place an order for a manual differential or Pathologistreview at his discretion. [facility]. [address] [place] [address] [address] THREAD MILLING MACHINE SET UP OPERATOR: MAGNOLIA HOLLY DO PH:[phone]-Titus Medical Center [address] [place], [place], [phone] MCV Entitic volume (RBC) 94.4 fL Normal 81-99 Comprehensive Internal Medicine Work Phone: Comment on above: Order Date: 09/12/16 Order Info: 0184-1E - *CBC w/Diff - oncology ONLYAt [facility] Medical Oncologypatients receive CBC w/auto Differential ONLY. Physicianwill place an order for a manual differential or Pathologistreview at his discretion. [facility]. [address] [place] [address] [address] THREAD MILLING MACHINE SET UP OPERATOR: MAGNOLIA HOLLY DO PH:[phone]-Titus Medical Center [address] [place], [place], [address] Monocytes/100 WBC (Bld) 10.7 % Abnormal 0-10 Comprehensive Internal Medicine Work Phone: Comment on above: Order Date: 09/12/16 Order Info: 0184-1E - *CBC w/Diff - oncology ONLYAt [facility] Medical Oncologypatients receive CBC w/auto Differential ONLY. Physicianwill place an order for a manual differential or Pathologistreview at his discretion. [facility]. [address] [place] [address] [address] THREAD MILLING MACHINE SET UP OPERATOR: MAGNOLIA OHLLY DO PH:[phone]-Titus Medical Center [address]ls[address] [place], [place], [address] Neutrophils/100 WBC (Bld) 53.6 % Normal 47-70 Comprehensive Internal Medicine Work Phone: Comment on above: Order Date: 09/12/16 Order Info: 0184-1E - *CBC w/Diff - oncology ONLYAt [facility] Medical Oncologypatients receive CBC w/auto Differential ONLY. Physicianwill place an order for a manual differential or Pathologistreview at his discretion. [facility]. [address] [place] [address] [address] THREAD MILLING MACHINE SET UP OPERATOR: MAGNOLIA HOLLY DO PH:[phone]-Titus Medical Center [address] [place], [place], [address] Platelet mean volume Entitic volume (Bld) 7.6 fL Normal 6.2-12.0 [facility] Internal Medicine Work Phone: Comment on above: Order Date: 09/12/16 Order Info: 0184-1E - *CBC w/Diff - oncology ONLYAt [facility] Medical Oncologypatients receive CBC w/auto Differential ONLY. Physicianwill place an order for a manual differential or Pathologistreview at his discretion. [facility]. [address] [place] [address] [address] THREAD MILLING MACHINE SET UP OPERATOR: MAGNOLIA HOLLY DO PH:[phone]-Titus Medical Center [address] [place], [place], [address] Platelets #/vol (Bld) 264 10*3/uL Normal 150-450 Co mprehensive Internal Medicine Work Phone: Comment on above: Order Date: 09/12/16 Order Info: 0184-1E - *CBC w/Diff - oncology ONLYAt [facility] Medical Oncologypatients receive CBC w/auto Differential ONLY. Physicianwill place an order for a manual differential or Pathologistreview at his discretion. [facility]. [address] [place] [address] [address] THREAD MILLING MACHINE SET UP OPERATOR: MAGNOLIA HOLLY DO PH:[phone]-Titus Medical Center [address]fmj[address] [place], [place], [address] RBC #/vol (Bld) 4.32 {M/mm3} Normal 4.2-5.4 Compreh ensive Internal Medicine Work Phone: Comment on above: Order Date: 09/12/16 Order Info: 0184-1E - *CBC w/Diff - oncology ONLYAt [facility] Medical Oncologypatients receive CBC w/auto Differential ONLY. Physicianwill place an order for a manual differential or Pathologistreview at his discretion. [facility]. [address] [place] [address] [address] [address] THREAD MILLING MACHINE SET UP OPERATOR: MAGNOLIA HOLLY DO PH:[phone]-Titus Medical Center [address] [place], [place], [address] WBC #/vol (Bld) 4.4 10*3/uL Normal 4.4-11.0 Comprehe nsive Internal Medicine Work Phone: Comment on above: Order Date: 09/12/16 Order Info: 0184-1E - *CBC w/Diff - oncology ONLYAt [facility] Medical Oncologypatients receive CBC w/auto Differential ONLY. Physicianwill place an order for a manual differential or Pathologistreview at his discretion. [facility]. [address] [place] [address] THREAD MILLING MACHINE SET UP OPERATOR: MAGNOLIA HOLLY DO PH:[phone]-Titus Medical Center [address] [place], [place], [address] Comprehensive Metabolic Prof ilOrdered By: Warehouse Trainer on 03-10-2017 Comprehensive metabolic 2000 panel 3.5 g/dL Normal 2.3-3.5 Comprehensi ve Internal Medicine Work Phone: Comment on above: Order Date: 09/12/16 Order Info: 0786-1 - *[facility] [address]vv[address] [place], [address] Comprehensive metabolic 2000 panel 70 U/L Normal 45-117 Comprehensi ve Internal Medicine Work Phone: Comment on above: Order Date: 09/12/16 Order Info: 0786-1 - *CMP Complete Met[facility] PanelWCorey Hospital [address] [place], [place], [address] Comprehensive metabolic 2000 panel 60 mL/min Normal Comprehensi ve Internal Medicine Work Phone: Comment on above: GFR Calc Order Date: 09/12/16 Order Info: 0786-1 - *CMP Complete Met[facility] PanelWCorey Hospital [address] [place], [place], [address] Comprehensive metabolic 2000 panel 23.0 mmol/L Normal 21.0-32.0 Comprehensi ve Internal Medicine Work Phone: Comment on above: Order Date: 09/12/16 Order Info: 0786-1 - *CMP Complete Met[facility] PanelWCorey Hospital [address]hi[address] [place], [place], [address] Comprehensive metabolic 2000 panel 7.5 g/dL Normal 6.4-8.2 Comprehensi ve Internal Medicine Work Phone: Comment on above: Order Date: 09/12/16 Order Info: 0786-1 - *CMP Complete Met[facility] PanelFisher-[facility] [address]mc[address] [place], [place], [address] Comprehensive metabolic 2000 panel 4.0 g/dL Normal 3.4-5.0 Comprehensi ve Internal Medicine Work Phone: Comment on above: Order Date: 09/12/16 Order Info: 0786-1 - *CMP [facility] [address] [place], [address] Comprehensive metabolic 2000 panel 50 mL/min Abnormal Comprehensi ve Internal Medicine Work Phone: Comment on above: Non- GFR Calc Order Date: 09/12/16 Order Info: 0786-1 - *[facility] Complete Met[facility] PanelFisher-[facility] [address] [place], [address] Comprehensive metabolic 2000 panel 1.16 mg/dL Abnormal 0.55-1.02 Comprehensi ve Internal Medicine Work Phone: Comment on above: The validity of the calculated GFR AND GFRAA in patients over70 years has not been determined. Clinical correlation isessential. Order Date: 09/12/16 Order Info: 0786-1 - *[facility] Complete Metabolic PanelFisher-[facility] [address] [place], [address] Comprehensive metabolic 2000 panel 113 mg/dL Abnormal 70-110 Comprehensi ve Internal Medicine Work Phone: Comment on above: Fasting Glucose resu lt from 110 to <126 mg/dLsuggests IMPAIRED HOMEOSTASIS per A.D.A. criteria. Order Date: 09/12/16 Order Info: 0786-1 - *[facility] [address] [place], [address] Comprehensive metabolic 2000 panel 1.1 {RATIO} Normal 0.9-2.4 Comprehensi ve Internal Medicine Work Phone: Comment on above: Order Date: 09/12/16 Order Info: 0786-1 - *[facility] [address]jfgpdja[address] [place], [address] Comprehensive metabolic 2000 panel 12 1 Normal 5-15 Comprehensi ve Internal Medicine Work Phone: Comment on above: Order Date: 09/12/16 Order Info: 0786-1 - *[facility] [address] [place] [place], [address] Comprehensive metabolic 2000 panel 9.2 mg/dL Normal 8.5-10.1 Comprehensi ve Internal Medicine Work Phone: Comment on above: Order Date: 09/12/16 Order Info: 0786-1 - *[facility] [address] [place], [address] Comprehensive metabolic 2000 panel 108 mmol/L Abnormal 98-107 Comprehensi ve Internal Medicine Work Phone: Comment on above: Order Date: 09/12/16 Order Info: 0786-1 - *[facility] Qiuxrjrsla[address] [place], [place], [address] Comprehensive metabolic 2000 panel 13 mg/dL Normal 7-18 Comprehensi ve Internal Medicine Work Phone: Comment on above: Order Date: 09/12/16 Order Info: 0786-1 - *[facility] F[address]rm[address]nga[address] [place], [place], [address] Comprehensive metabolic 2000 panel 4.3 mmol/L Normal 3.5-5.1 Comprehensi ve Internal Medicine Work Phone: Comment on above: Order Date: 09/12/16 Order Info: 0786-1 - *[facility] Nufxsubiwb[address] [place], [place], [address] Comprehensive metabolic 2000 panel 22 U/L Normal 15-37 Comprehensi ve Internal Medicine Work Phone: Comment on above: Order Date: 09/12/16 Order Info: 0786-1 - *[facility] M[address] [place], [address] Comprehensive metabolic 2000 panel 143 mmol/L Normal 136-145 Comprehensi ve Internal Medicine Work Phone: Comment on above: Order Date: 09/12/16 Order Info: 0786-1 - *[facility] [address]wgfqi[address] [place], [place], [address] Comprehensive metabolic 2000 panel 0.40 mg/dL Normal 0.20-1.00 [facility] Work Phone: Comment on above: Order Date: 09/12/16 Order Info: 0786-1 - *[facility]MP [facility] H[address]yrhpxpkt[address] [place], [id number] Comprehensive metabolic 2000 panel 28 U/L Normal 12-78 [facility] Work Phone: Comment on above: Order Date: 09/12/16 Order Info: 0786-1 - *[facility]MP [facility] Lugvxoavtz[address] [place], [id number] Comprehensive metabolic 2000 panel 11.2 {RATIO} Normal 10-20 [facility] Internal Medicine Work Phone: Comment on above: Order Date: 09/12/16 Order Info: 0786-1 - *CMP [facility] Hzuhtqzhlv2142 [address] [place], [id number] CBC, Platelets & Auto Diff ( 35176)Ordered By: Warehouse Trainer on 01-07-2017 Basophils #/vol (Bld) 0.0 {x10E3/uL} Normal 0.0-0.2 [facility] Internal Medicine Work Phone: Comment on above: PATIENT NOT FASTINGP ERFORMED BY: BRE [employer] Vsmpqt2156 [facility] [id number] Basophils/100 WBC (Bld) 0 % Normal Comprehensive Internal Medicine Work Phone: Comment on above: PATIENT NOT FASTINGP ERFORMED BY: BRE [facility] Thrvdk3630 [facility] HospitalSoftware Cellular NetworkNovant Health Matthews [facility] Center [id number] Eosinophils #/vol (Bld) 0.2 {x10E3/uL} Normal 0.0-0.4 [facility] Internal Medicine Work Phone: Comment on above: PATIENT NOT FASTINGP ERFORMED BY: [employer] [facility] [id number] Eosinophils/100 WBC (Bld) 3 % Normal [facility] Internal Medicine Work Phone: Comment on above: PATIENT NOT FASTINGP ERFORMED BY: BRE Quintero[address] [facility] [place] [id number] Erythrocyte distribution width Ratio (RBC) 15.5 % Abnormal 12.3-15.4 [facility] Internal Medicine Work Phone: Comment on above: PATIENT NOT FASTINGP ERFORMED BY: BRE [employer] Vvnsqm4312 [address] [facility] [id number] Hematocrit Volume Fraction (Bld) 36.5 % Normal 34.0-46.6 [facility] Internal Medicine Work Phone: Comment on above: PATIENT NOT FASTINGP ERFORMED BY: BRE Mata Nejmrf5275 [address] [facility] [id number] Hemoglobin mass conc (Bld) 11.8 g/dL Normal 11.1-15.9 [facility] Internal Medicine Work Phone: Comment on above: PATIENT NOT FASTINGP ERFORMED BY: LabSaint [facility] Qvcekm2726 [address] [facility] [place] [id number] Immature granulocytes #/vol (Bld) 0.0 {x10E3/uL} Normal 0.0-0.1 [facility] Internal Medicine Work Phone: Comment on above: PATIENT NOT FASTINGP ERFORMED BY: BRE LabUniversity Of Michigan Health–West6[address] [facility] [place] [id number] Immature granulocytes/100 WBC (Bld) 0 % Normal Comprehensive Internal Medicine Work Phone: Comment on above: PATIENT NOT FASTINGP ERFORMED BY: LabCo Ctqyoh0078 [address] [facility] [place] [id number] Lymphocytes #/vol (Bld) 1.3 {x10E3/uL} Normal 0.7-3.1 [facility] Internal Medicine Work Phone: Comment on above: PATIENT NOT FASTINGP ERFORMED BY: LabCo Fzwycr1175 [address] [facility] [place] [id number] Lymphocytes/100 WBC (Bld) 24 % Normal [facility] Internal Medicine Work Phone: Comment on above: PATIENT NOT FASTINGP ERFORMED BY: BRE VeeKaren GuajardoFvlors4507 [address] [facility] [id number] MCH Entitic mass (RBC) 29.9 pg Normal 26.6-33.0 [facility] Internal Medicine Work Phone: Comment on above: PATIENT NOT FASTINGP ERFORMED BY: BRE VeeKaren Quintero6[address] [facility] [id number] MCHC mass conc (RBC) 32.3 g/dL Normal 31.5-35.7 Comp [facility] Internal Medicine Work Phone: Comment on above: PATIENT NOT FASTINGP ERFORMED BY: BRE VeeKaren GuajardoPvaiud8844 [facility] [id number] MCV Entitic volume (RBC) 92 fL Normal 79-97 Comprehensive Internal Medicine Work Phone: Comment on above: PATIENT NOT FASTINGP ERFORMED BY: BRE Guajardolin6370 [address] [facility] [id number] Monocytes #/vol (Bld) 0.7 {x10E3/uL} Normal 0.1-0.9 [facility] Internal Medicine Work Phone: Comment on above: PATIENT NOT FASTINGP ERFORMED BY: BRE VeeKaren GuajardoGeceug7237 [facility] [id number] Monocytes/100 WBC (Bld) 13 % Normal Comprehensive Internal Medicine Work Phone: Comment on above: PATIENT NOT FASTINGP ERFORMED BY: BRE Guajardolin6370 [address] [facility] [id number] Neutrophils #/vol (Bld) 3.1 {x10E3/uL} Normal 1.4-7.0 [facility] Internal Medicine Work Phone: Comment on above: PATIENT NOT FASTINGP ERFORMED BY: BRE VeeKaren GuajardoMcfmxl9465 [address] [facility] [id number] Neutrophils/100 WBC (Bld) 60 % Normal Comprehensive Internal Medicine Work Phone: Comment on above: PATIENT NOT FASTINGP ERFORMED BY: BRE Guajardolin6370 [address] [facility] [id number] Platelets #/vol (Bld) 299 {x10E3/uL} Normal 150-379 Comprehensive Internal Medicine Work Phone: Comment on above: PATIENT NOT FASTINGP ERFORMED BY: BRE Mata Jsfzwe7047 [address] [facility] [place] [id number] RBC #/vol (Bld) 3.95 {x10E6/uL} Normal 3.77-5.28 Comp [facility] Internal Medicine Work Phone: Comment on above: PATIENT NOT FASTINGP ERFORMED BY: BRE LabUniversity Of Michigan Health–West6[address] [facility] [id number] WBC #/vol (Bld) 5.3 {x10E3/uL} Normal 3.4-10.8 Compr [facility] Internal Medicine Work Phone: Comment on above: PATIENT NOT FASTINGP ERFORMED BY: LabUniversity Of Michigan Health–West6370 [facility] [id number] MAGNESIUM ([id number])Ordered By: Warehouse Trainer on 01-07-2017 Magnesium mass conc 1.9 mg/dL Normal 1.6-2.3 [facility] Internal Medicine Work Phone: Comment on above: PATIENT NOT FASTINGP ERFORMED BY: VeeSaint Luke'S Hospital Oksmvl1172 [facility] [id number] Metabolic Panel, Comprehensi ve ([id number])Ordered By: Warehouse Trainer on 01-07-2017 Albumin mass conc 4.0 g/dL Normal 3.6-4.8 Compreh [facility] Internal Medicine Work Phone: Comment on above: PATIENT NOT FASTINGP ERFORMED BY: LabCo Wxavyg4107 [address] [facility] [place] [id number] Albumin/Globulin mass ratio 1.9 {ratio} Normal 1.2-2.2 [facility] Internal Medicine Work Phone: Comment on above: PATIENT NOT FASTINGP ERFORMED BY: BRE LabCoSt. Francis Medical CenterEjzgqa0096 [facility] [id number] ALP enzyme act/vol 66 [iU]/L Normal 39-117 Compre [facility] Internal Medicine Work Phone: Comment on above: PATIENT NOT FASTINGP ERFORMED BY: BRE [facility] Ibordu8663 Schwartz RoadDublin [place] [id number] ALT enzyme act/vol 26 [iU]/L Normal 0-32 Compre [facility] Internal Medicine Work Phone: Comment on above: PATIENT NOT FASTINGP ERFORMED BY: CB [facility] Pbgpay6234 Schwartz RoadDublin [place] [id number] AST enzyme act/vol 34 [iU]/L Normal 0-40 Compre [facility] Internal Medicine Work Phone: Comment on above: PATIENT NOT FASTINGP ERFORMED BY: BRE [facility] Pofrnf8874 [address] Roadblin [place] [id number] Bilirubin mass conc 0.2 mg/dL Normal 0.0-1.2 Compr ensive Internal Medicine Work Phone: Comment on above: PATIENT NOT FASTINGP ERFORMED BY: BRE [facility] Hwbfja9370 [address] RoadAtrium Health Cabarrusin [place] [id number] Calcium mass conc 9.4 mg/dL Normal 8.7-10.3 Compreh ensive Internal Medicine Work Phone: Comment on above: PATIENT NOT FASTINGP ERFORMED BY: BRE [facility] Wjpeck1918 [address] RoadAtrium Health Cabarrusin [place] [id number] Chloride molar conc 103 mmol/L Normal 96-106 Compr ensive Internal Medicine Work Phone: Comment on above: PATIENT NOT FASTINGP ERFORMED BY: BRE [facility] Tzhjwm8133 [address] Roadblin [place] [id number] CO2 molar conc 24 mmol/L Normal 18-29 Comprehens cheri Internal Medicine Work Phone: Comment on above: PATIENT NOT FASTINGP ERFORMED BY: BRE [facility] Fdqlri3374 Schwartz RoadDublin [place] [id number] Creatinine mass conc 0.95 mg/dL Normal 0.57-1.00 Comp [facility] Internal Medicine Work Phone: Comment on above: PATIENT NOT FASTINGP ERFORMED BY: BRE [facility] Yixutk9859 Schwartz RoadDublin [place] [id number] GFR/1.73 sq M predicted among blacks CKD-EPI vol rate/area (S/P/Bld) 72 mL/min/1.73 Normal Comprehensiv e Internal Medicine Work Phone: Comment on above: PATIENT NOT FASTINGP ERFORMED BY: BRE Carlos Guajardolin6370 [facility] [id number] GFR/1.73 sq M predicted among non-blacks CKD-EPI vol rate/area (S/P/Bld) 63 mL/min/1.73 Normal Comprehensive Internal Medicine Work Phone: Comment on above: PATIENT NOT FASTINGP ERFORMED BY: BRE VeeKaren GuajardoEviljt0534 [facility] [id number] Globulin mass conc (S) 2.1 g/dL Normal 1.5-4.5 [facility] Internal Medicine Work Phone: Comment on above: PATIENT NOT FASTINGP ERFORMED BY: BRE Guajardolin6370 [facility] [id number] Glucose mass conc 78 mg/dL Normal 65-99 Compreh ensive Internal Medicine Work Phone: Comment on above: PATIENT NOT FASTINGP ERFORMED BY: BRE Guajardolin6370 [facility] [id number] Potassium molar conc 5.0 mmol/L Normal 3.5-5.2 Comp rehensive Internal Medicine Work Phone: Comment on above: PATIENT NOT FASTINGP ERFORMED BY: BRE Guajardolin6370 [facility] [id number] Protein mass conc 6.1 g/dL Normal 6.0-8.5 Compreh ensive Internal Medicine Work Phone: Comment on above: PATIENT NOT FASTINGP ERFORMED BY: BRE VeeKaren GuajardoEuxuqf2907 [facility] [id number] Sodium molar conc 146 mmol/L Abnormal 134-144 Compreh ensive Internal Medicine Work Phone: Comment on above: PATIENT NOT FASTINGP ERFORMED BY: BRE LabKaren GuajardoXgstbz5357 [facility] [id number] Urea nitrogen mass conc 8 mg/dL Normal 8-27 [facility] Internal Medicine Work Phone: Comment on above: PATIENT NOT FASTINGP ERFORMED BY: LabCoSt. Francis Medical CenterNpkasg7711 [facility] [id number] Urea nitrogen/Creatinine mass ratio 8 mg/mg Abnormal 12-28 Comprehensive Internal Medicine Work Phone: Comment on above: PATIENT NOT FASTINGP ERFORMED BY: LabCoSt. Francis Medical CenterLnnqsc6147 [facility] [id number] Basic Metabolic Profile (BMP )Ordered By: Warehouse Trainer on 01-05-2017 Basic metabolic 2000 panel 26.0 mmol/L Normal 21.0-32.0 [facility] Medicine Work Phone: Comment on above: [facility] [address] [place], [place], [address] Basic metabolic 2000 panel 76 mL/min Normal Comprehensive Internal Medicine Work Phone: Comment on above: GFR Calc [facility] [address]mvtxeleyl[address] [place], [place], [phone] Basic metabolic 2000 panel 63 mL/min Normal Comprehensive Internal Medicine Work Phone: Comment on above: Non- GFR Calc [facility] Prtkiptqvz[address] [place], [place], 418671 Basic metabolic 2000 panel 104 mmol/L Normal 98-107 Comprehensive Internal Medicine Work Phone: Comment on above: [facility] [address]mlqxtzp[address] [place], [place], [address] Basic metabolic 2000 panel 0.95 mg/dL Normal 0.55-1.02 [facility] Internal Medicine Work Phone: Comment on above: The validity of the calculated GFR AND GFRAA in patients over70 years has not been determined. Clinical correlation isessential. [facility] spital J[address]pbkqdegu[address] [place], [place], [phone] Basic metabolic 2000 panel 9 1 Normal 5-15 Comprehensive Internal Medicine Work Phone: Comment on above: [facility] [address]pwfubd[address] [place], [place], [address] Basic metabolic 2000 panel 13 mg/dL Normal 7-18 [facility] Internal Medicine Work Phone: Comment on above: [facility] Xjrwuyqxvm[address] [place], [place], [address] Basic metabolic 2000 panel 88 mg/dL Normal 70-110 [facility] Internal Medicine Work Phone: Comment on above: [facility] Bzhrixfsss[address] [place], [place], [address] Basic metabolic 2000 panel 4.0 mmol/L Normal 3.5-5.1 [facility] Internal Medicine Work Phone: Comment on above: Moderate Hemolysis, Result may be falsely increased. [facility] Hodpwcwpze[address] [place], [place], [address]75[address] Basic metabolic 2000 panel 9.0 mg/dL Normal 8.5-10.1 Comprehensive Internal Medicine Work Phone: Comment on above: [facility] Ybujxntuek[address] [place], [place], [address] Basic metabolic 2000 panel 139 mmol/L Normal 136-145 Comprehensive Internal Medicine Work Phone: Comment on above: [facility] [address]xehshdzvk[address] [place], [place], [address] Basic metabolic 2000 panel 56.65 ml/min Normal Comprehensive Internal Medicine Work Phone: Comment on above: [facility] Ggsxqkafsd[address] [place], [place], [address] Basic metabolic 2000 panel 13.7 {RATIO} Normal 10-20 [facility] Internal Medicine Work Phone: Comment on above: [facility] Xbuomxcmvg[address] [place], [place], [address] CBC W/Diff, AutomatedOrdered By: Warehouse Trainer on 01-05-2017 CBC W/Diff, Automated 4.09 {M/mm3} Abnormal 4.2-5.4 [facility] Internal [facility] Work Phone: Comment on above: [facility] Delejjxcyj[address] [place], [address] CBC W/Diff, Automated 0.98 {X10_3/ul} Normal 0.83-4.51 [facility] Internal Medicine Work Phone: Comment on above: [facility] R[address]chj[address] [place], [address] CBC W/Diff, Automated 293 K/mm3 Normal 150-450 Com prehensive Internal Medicine Work Phone: Comment on above: [facility] Mwowkfmyfq[address] [place], [place], [address] CBC W/Diff, Automated 0.000 % Normal 0.0-0.9 [facility] prehensive Internal Medicine Work Phone: Comment on above: IG% - Immature Granu locytes (promyelocytes, myelocytes andmetamyelocytes) > 1% indicates that a LEFT SHIFT is Present. [facility] B[address]aunom[address] [place], [address] CBC W/Diff, Automated 0.3 % Normal 0-1 [facility] prehensive Internal Medicine Work Phone: Comment on above: [facility] Qvvfrirptn[address] [place], [address] CBC W/Diff, Automated 0.8 % Normal 0-5 [facility] prehensive Internal Medicine Work Phone: Comment on above: [facility] [address]bixqoqp[address] [place], [address] CBC W/Diff, Automated 9.8 % Normal 0-10 [facility] prehensive Internal Medicine Work Phone: Comment on above: [facility] [address]wwjledu[address] [place], [address] CBC W/Diff, Automated 12.3 % Abnormal 19-41 Com prehensive Internal Medicine Work Phone: Comment on above: [facility] Dwfiizubko[address] [place], [place], [phone](137) CBC W/Diff, Automated 76.8 % Abnormal 47-70 Com prehensive Internal Medicine Work Phone: Comment on above: [facility] Bikwugpznm[address] [place], [address] CBC W/Diff, Automated 9.8 fL Normal 6.2-12.0 [facility] prehensive Internal Medicine Work Phone: Comment on above: [facility] Hofraqmcsj[address] [place], [place], [address] CBC W/Diff, Automated 6.2 {X10_3/uL} Normal 2.0-7.7 [facility] Internal Medicine Work Phone: Comment on above: [facility] Irhhpylqou[address] [place], [place], [address] CBC W/Diff, Automated 50.4 fL Abnormal 35.1-43.9 [facility] prehensive Internal Medicine Work Phone: Comment on above: [facility] Xrzfrgvtbq[address] [place], [place], [address] CBC W/Diff, Automated 15.0 % Abnormal 11.6-14.6 [facility] prehensive Internal Medicine Work Phone: Comment on above: [facility] Nawjamsbga[address] [place], [place], [address] CBC W/Diff, Automated 32.4 {g/gl} Normal 32-36 Co [facility] centerensive Internal Medicine Work Phone: Comment on above: [facility] Zhchbsjklu[address] [place], [place], [address] CBC W/Diff, Automated 30.1 pg Normal 27.0-32.0 [facility] prehensive Internal Medicine Work Phone: Comment on above: [facility] Atihkpulgz[address] [place], [place], [address] CBC W/Diff, Automated 92.9 fL Normal 81-99 [facility] prehensive Internal Medicine Work Phone: Comment on above: [facility] Ipztgkuipo[address] [place], [place], [address] CBC W/Diff, Automated 38.0 % Normal 37-47 [facility] prehensive Internal Medicine Work Phone: Comment on above: [facility] Dvxfoajruu[address] [place], [place], [address] CBC W/Diff, Automated 12.3 g/dL Normal 12.0-15.0 [facility] prehensive Internal Medicine Work Phone: Comment on above: [facility] [address]wnrcl[address] [place], [place], [address] CBC W/Diff, Automated 8.0 K/mm3 Normal 4.4-11.0 [facility] prehensive Internal Medicine Work Phone: Comment on above: [facility] Tiqzgvhyxy[address] [place], [place], [address] CBC W/Diff, AutomatedOrdered By: Warehouse Trainer on 10-18-2016 CBC W/Diff, Automated 1.41 {X10_3/ul} Normal 0.83-4.51 [facility] Medicine Work Phone: Comment on above: [facility] Rbfoiymoti[address] [place], [place], [address] CBC W/Diff, Automated 1.6 {X10_3/uL} Abnormal 2.0-7.7 [facility] Medicine Work Phone: Comment on above: [facility] Aczxqiythe[address] [place], [place], [address] CBC W/Diff, Automated 0.000 % Normal 0.0-0.9 [facility] prehensive Internal Medicine Work Phone: Comment on above: IG% - Immature Granu locytes (promyelocytes, myelocytes andmetamyelocytes) > 1% indicates that a LEFT SHIFT is Present. [facility] [address]tyreej[address] [place], [address] CBC W/Diff, Automated 1.4 % Abnormal 0-1 Com prehensive Internal Medicine Work Phone: Comment on above: [facility] [address]terq[address]qi[address] [place], [address] CBC W/Diff, Automated 5.3 % Abnormal 0-5 Com prehensive Internal Medicine Work Phone: Comment on above: [facility] Y[address]hs[address]jmj[address] [place], [address] CBC W/Diff, Automated 10.6 % Abnormal 0-10 Com prehensive Internal Medicine Work Phone: Comment on above: [facility] [address]ylh[address]mgx[address] [place], [address] CBC W/Diff, Automated 39.4 % Normal 19-41 [facility] prehensive Internal Medicine Work Phone: Comment on above: [facility] [address]ub[address]ccq[address] [place], [address] CBC W/Diff, Automated 43.3 % Abnormal 47-70 [facility] prehensive Internal Medicine Work Phone: Comment on above: [facility] Ol[address]okpidt[address] [place], [address] CBC W/Diff, Automated 10.5 fL Normal 6.2-12.0 [facility] prehensive Internal Medicine Work Phone: Comment on above: [facility] [address]vacsv[address] [place], [address] CBC W/Diff, Automated 264 K/mm3 Normal 150-450 Com prehensive Internal Medicine Work Phone: Comment on above: [facility] Ifldtyygih[address] [place], [address] CBC W/Diff, Automated 49.9 fL Abnormal 35.1-43.9 [facility] prehensive Internal Medicine Work Phone: Comment on above: [facility] Jrrwtiqune[address] [place], [address] CBC W/Diff, Automated 14.9 % Abnormal 11.6-14.6 [facility] prehensive Internal Medicine Work Phone: Comment on above: [facility] [address]qj[address] [place], [address] CBC W/Diff, Automated 32.6 {g/gl} Normal 32-36 Co [facility]erens[facility] Internal Medicine Work Phone: Comment on above: [facility] Gcexroralg[address] [place], [address] CBC W/Diff, Automated 30.8 pg Normal 27.0-32.0 [facility] prehensive Internal Medicine Work Phone: Comment on above: [facility] [address] [place], [address] CBC W/Diff, Automated 94.6 fL Normal 81-99 [facility] prehensive Internal Medicine Work Phone: Comment on above: [facility] [address] [place], [address] CBC W/Diff, Automated 40.2 % Normal 37-47 [facility] prehensive Internal Medicine Work Phone: Comment on above: [facility] Y[address]ky[address] [place], [address] CBC W/Diff, Automated 13.1 g/dL Normal 12.0-15.0 [facility] prehensive Internal Medicine Work Phone: Comment on above: [facility] [address] [place], [address] CBC W/Diff, Automated 4.25 {M/mm3} Normal 4.2-5.4 [facility] Work Phone: Comment on above: [facility] [address] [place], [place], [address] CBC W/Diff, Automated 3.6 K/mm3 Abnormal 4.4-11.0 Com prehensive Internal Medicine Work Phone: Comment on above: [facility] spital [address] [place], [place], [address] Comprehensive Metabolic Prof ilOrdered By: Warehouse Trainer on 10-18-2016 Comprehensive metabolic 2000 panel 14 mg/dL Normal 7-18 Comprehensi ve Internal Medicine Work Phone: Comment on above: [facility] [address] [place], [place], [id number] Comprehensive metabolic 2000 panel 80 mg/dL Normal 70-110 Comprehensi ve Internal Medicine Work Phone: Comment on above: [facility] [address] [place], [place], [id number] Comprehensive metabolic 2000 panel 141 mmol/L Normal 136-145 Comprehensi ve Internal Medicine Work Phone: Comment on above: [facility] [address] [place], [place], [id number] Comprehensive metabolic 2000 panel 14.7 {RATIO} Normal 10-20 Comprehensi ve Internal Medicine Work Phone: Comment on above: [facility] [address] [place], [place], [id number] Comprehensive metabolic 2000 panel 10 1 Normal 5-15 Comprehensi ve Internal Medicine Work Phone: Comment on above: [facility] [address] [place], [place], [address] Comprehensive metabolic 2000 panel 26.0 mmol/L Normal 21.0-32.0 Comprehensi ve Internal Medicine Work Phone: Comment on above: [facility] [address] [place], [place], [id number] Comprehensive metabolic 2000 panel 62 mL/min Normal Comprehensi ve Internal Medicine Work Phone: Comment on above: Non- GFR Calc [facility] [address] [place], [address] Comprehensive metabolic 2000 panel 105 mmol/L Normal 98-107 Comprehensi ve Internal Medicine Work Phone: Comment on above: [facility] [address] [place], [address] Comprehensive metabolic 2000 panel 3.9 mmol/L Normal 3.5-5.1 Comprehensi ve Internal Medicine Work Phone: Comment on above: [facility] [address] [place], [address] Comprehensive metabolic 2000 panel 75 mL/min Normal Comprehensi ve Internal Medicine Work Phone: Comment on above: GFR Calc [facility] [address] [place], [address] Comprehensive metabolic 2000 panel 9.0 mg/dL Normal 8.5-10.1 Comprehensi ve Internal Medicine Work Phone: Comment on above: [facility] [address] [place], [place], [address] Comprehensive metabolic 2000 panel 0.40 mg/dL Normal 0.20-1.00 Comprehensi ve Internal Medicine Work Phone: Comment on above: [facility] [address] [place], [address] Comprehensive metabolic 2000 panel 27 U/L Normal 12-78 Comprehensi ve Internal Medicine Work Phone: Comment on above: [facility] [address] [place], [address] Comprehensive metabolic 2000 panel 70 U/L Normal 45-117 Comprehensi ve Internal Medicine Work Phone: Comment on above: [facility] [address] [place], [place], [address] Comprehensive metabolic 2000 panel 7.1 g/dL Normal 6.4-8.2 Comprehensi ve Internal Medicine Work Phone: Comment on above: [facility] [address] [place], [place], [address] Comprehensive metabolic 2000 panel 24 U/L Normal 15-37 Comprehensi ve Internal Medicine Work Phone: Comment on above: [facility] [address] [place], [place], [phone] Comprehensive metabolic 2000 panel 0.95 mg/dL Normal 0.55-1.02 Comprehensi ve Internal Medicine Work Phone: Comment on above: The validity of the calculated GFR AND GFRAA in patients over70 years has not been determined. Clinical correlation isessential. [facility] [place], [place], [address] Comprehensive metabolic 2000 panel 1.2 {RATIO} Normal 0.9-2.4 Comprehensi ve Internal Medicine Work Phone: Comment on above: [facility] [address] [place], [place], [address] Comprehensive metabolic 2000 panel 3.9 g/dL Normal 3.4-5.0 Comprehensi ve Internal Medicine Work Phone: Comment on above: [facility] [place], [place], [address] Comprehensive metabolic 2000 panel 3.2 g/dL Normal 2.3-3.5 Comprehensi ve Internal Medicine Work Phone: Comment on above: [facility] [address] [place], [place], [address] Free C9Scjwvzm By: Bharath cardenas on 10-18-2016 T3 free mass conc 2.3 pg/mL Normal 2.18-3.98 Compreh ensive Internal Medicine Work Phone: Comment on above: [facility] [place], [place], [address] Lipid ProfileOrdered By: Elif tem Pepper Cutter on 10-18-2016 Lipid Profile 21 mg/dL Normal 5-40 Comprehensi ve Internal Medicine Work Phone: Comment on above: [facility] [address] [place], [place], [address] Lipid Profile 117 mg/dL Normal 0-130 Comprehensi ve Internal Medicine Work Phone: Comment on above: [facility] [address] [place], [place], [address] Lipid Profile 98 mg/dL Normal Comprehensi ve Internal Medicine Work Phone: Comment on above: The drugs N-Acetylcy steine and Metamizole may falsely deressthis assay. Reference Range HDL <40 mg/dL Low HDL Cholesterol HDL >or= 60 mg/dL High HDL Cholesterol [facility] [address] [place], [place], [address] Lipid Profile 103 mg/dL Normal Comprehensi ve Internal Medicine Work Phone: Comment on above: The drugs N-Acetylcy steine and Metamizole may falsely deressthis assay.Serum Triglycerides Reference Interval Normal <150 mg/dL Borderline high 150 - 199 mg/dL High 200 - 499 mg/dL Very High > or = 500 mg/dL [facility] [address] [place], [place], [address] Lipid Profile 236 mg/dL Abnormal Comprehensi ve Internal Medicine Work Phone: Comment on above: <200 mg/dL Desirable 200-240 mg/dL Borderline >240 mg/dL High Risk [facility] [address] [place], [place], [address] MagnesiumOrdered By: Warehouse Trainer on 10-18-2016 Magnesium mass conc 2.1 mg/dL Normal 1.8-2.4 Compr ehensive Internal Medicine Work Phone: Comment on above: [facility] [address] [place], [place], [address] MicroalbOrdered By: Bharath brambila on 10-18-2016 Microalb 24.3 {mg/g_CRE} Normal Comprehen sive Internal Medicine Work Phone: Comment on above: [facility] [address] [place], [address] Microalb 22.3 mg/L Normal Comprehensive Internal Medicine Work Phone: Comment on above: [facility] [address] [place], [address] Microalb 91.70 mg/dL Normal Comprehensive Internal Medicine Work Phone: Comment on above: [facility] [address] [place], [address] T4 Free DirectOrdered By: Sy stem Pepper Cutter on 10-18-2016 T4 free mass conc 0.83 ng/dL Normal 0.76-1.46 Compreh ensive Internal Medicine Work Phone: Comment on above: [facility] [address] [place], [address] Thyroid Stim Hormone (TSH)Or dered By: Warehouse Trainer on 10-18-2016 Thyrotropin Qn 1.17 {uIU/mL} Normal 0.358-3.74 Compreh ensive Internal Medicine Work Phone: Comment on above: [facility] [address] [place], [address] Urinalysis, CompleteOrdered By: Warehouse Trainer on 10-18-2016 Protein mass conc (U) 30 mg/dL Abnormal Com prehensive Internal Medicine Work Phone: Comment on above: How was Urine Obtain ed? CLEAN [facility] [address] [place], [address] RBC #/vol (U) 0 SEEN Normal 0-5 Comprehensi ve Internal Medicine Work Phone: Comment on above: How was Urine Obtain ed? [facility] [address] [place] [place], [address] Urinalysis complete panel - Urine Negative Normal Comprehensive Internal Medicine Work Phone: Comment on above: How was Urine Obtain ed? [facility] [address] [place], [address] Urinalysis complete panel - Urine 0 SEEN Normal 5-10 Comprehensive Internal Medicine Work Phone: Comment on above: How was Urine Obtain ed? [facility] [address] [place], [address] Urinalysis complete panel - Urine 1+ Normal Comprehensive Internal Medicine Work Phone: Comment on above: How was Urine Obtain ed? [facility] [address] [place], [address] Urinalysis complete panel - Urine 0-5 SEEN Normal 0-5 Comprehensive Internal Medicine Work Phone: Comment on above: How was Urine Obtain ed? [facility] [address] [place], [address] Urinalysis complete panel - Urine 100 /ul Abnormal Comprehensive Internal Medicine Work Phone: Comment on above: How was Urine Obtain ed? [facility] [address] [place], [address] Urinalysis complete panel - Urine Normal Normal Comprehensive Internal Medicine Work Phone: Comment on above: How was Urine Obtain ed? [facility] [address] [place], [address] Urinalysis complete panel - Urine 8.0 1 Normal 5.0 - 8.0 Comprehensive Internal Medicine Work Phone: Comment on above: How was Urine Obtain ed? [facility] [address] [place], [phone] Urinalysis complete panel - Urine 1.015 1 Normal 1.002-1.03 0 Comprehensive Internal Medicine Work Phone: Comment on above: How was Urine Obtain ed? CLEAN [facility] [address] [place], [id number] Urinalysis complete panel - Urine Sl. Cloudy Normal Comprehensive Internal Medicine Work Phone: Comment on above: How was Urine Obtain ed? CLEAN [facility] Qruvrvtult[address] [place], [id number] Urinalysis complete panel - Urine Yellow Normal Comprehensive Internal Medicine Work Phone: Comment on above: How was Urine Obtain ed? CLEAN [facility] [address] [place], [id number] Vitamin D,25 HydroxyOrdered By: Warehouse Trainer on 10-18-2016 Vitamin D,25 Hydroxy 47.3 ng/mL Normal Comp rehensive Internal Medicine Work Phone: Comment on above: Vitamin D 25(OH) Sta tus Range Deficiency <20 ng/mL (50nmol/L) Insuffciency 20 - 30 ng/mL (50 - 75 nmol/L) Sufficiency 30 - 100 ng/mL (75 - 250 nmol/L) Toxicity >100 ng/mL (>250 nmol/L) [facility] [address] [place], [id number] CBC W/Diff, AutomatedOrdered By: Warehouse Trainer on 09-11-2016 CBC W/Diff, Automated 0.9 % Normal 0-1 [facility] prehensive Internal Medicine Work Phone: Comment on above: Order Date: 09/02/16 OV Order #: [id number]-[facility] Center [address] [place], [id number] CBC W/Diff, Automated 29.5 pg Normal 27.0-32.0 [facility] prehensive Internal Medicine Work Phone: Comment on above: Order Date: 09/02/16 OV Order #: [id number]-Titus Medical Center [address] [place], 127[address] CBC W/Diff, Automated 2.8 % Normal 0-5 Com prehensive Internal Medicine Work Phone: Comment on above: Order Date: 09/02/16 OV Order #: [id number] [place] [address] [address] [place], [address] CBC W/Diff, Automated 1.69 {X10_3/ul} Normal 0.83-4.51 [facility] Internal Medicine Work Phone: Comment on above: Order Date: 09/02/16 OV Order #: [id number]-[facility] Medical Center [address]lm[address] [place], [address] CBC W/Diff, Automated 0.200 % Normal 0.0-0.9 [facility] prehensive Internal Medicine Work Phone: Comment on above: IG% - Immature Granu locytes (promyelocytes, myelocytes andmetamyelocytes) > 1% indicates that a LEFT SHIFT is Present. Order Date: 09/02/16 OV Order #: [id number]-Titus Medical Center [address]fjutnu[address] [place], [address] CBC W/Diff, Automated 4.6 K/mm3 Normal 4.4-11.0 [facility] prehensive Internal Medicine Work Phone: Comment on above: Order Date: 09/02/16 OV Order #: [id number] [place] [address] [address] [place], [address]34251 CBC W/Diff, Automated 4.34 {M/mm3} Normal 4.2-5.4 C omprehensive Internal Medicine Work Phone: Comment on above: Order Date: 09/02/16 OV Order #: [id number]-Titus Medical Center [address] [place], [place], 346290(752) CBC W/Diff, Automated 10.1 % Abnormal 0-10 Com prehensive Internal Medicine Work Phone: Comment on above: Order Date: 09/02/16 OV Order #: [id number] [place] [address] [place], [address] CBC W/Diff, Automated 37.0 % Normal 19-41 Com prehensive Internal Medicine Work Phone: Comment on above: Order Date: 09/02/16 OV Order #: [id number]-Titus Medical Center [address]yps[address] [place], [place], [address](991) CBC W/Diff, Automated 49.0 % Normal 47-70 Com prehensive Internal Medicine Work Phone: Comment on above: Order Date: 09/02/16 OV Order #: [id number] [place] [address] [place], [address] CBC W/Diff, Automated 10.1 fL Normal 6.2-12.0 Com prehensive Internal Medicine Work Phone: Comment on above: Order Date: 09/02/16 OV Order #: [id number] [place] [address] [place], [address] CBC W/Diff, Automated 281 K/mm3 Normal 150-450 Com prehensive Internal Medicine Work Phone: Comment on above: Order Date: 09/02/16 OV Order #: [id number] [place] [address] [place], [place], 541544(776) CBC W/Diff, Automated 47.7 fL Abnormal 35.1-43.9 Com prehensive Internal Medicine Work Phone: Comment on above: Order Date: 09/02/16 OV Order #: [id number]-Titus Medical Center [address]pt[address] [place], [phone] CBC W/Diff, Automated 14.0 % Normal 11.6-14.6 [facility] prehensive Internal Medicine Work Phone: Comment on above: Order Date: 09/02/16 OV Order #: [id number] [place] [address] [place], [phone] CBC W/Diff, Automated 31.8 {g/gl} Abnormal 32-36 [facility] Work Phone: Comment on above: Order Date: 09/02/16 OV Order #: [id number]-Titus Medical Center [address]xzl[address] [place], [place], [phone] CBC W/Diff, Automated 2.2 {X10_3/uL} Normal 2.0-7.7 Comprehensive [facility] Medicine Work Phone: Comment on above: Order Date: 09/02/16 OV Order #: [id number] [place] [address] [place], [place], [phone] CBC W/Diff, Automated 92.9 fL Normal 81-99 [facility] prehensive Internal Medicine Work Phone: Comment on above: Order Date: 09/02/16 OV Order #: [id number] [place] [address] [place], [place], [phone] CBC W/Diff, Automated 40.3 % Normal 37-47 [facility] prehensive Internal Medicine Work Phone: Comment on above: Order Date: 09/02/16 OV Order #: [id number]-Titus Medical Center [address]fsmtb[address] [place], [place], [phone] CBC W/Diff, Automated 12.8 g/dL Normal 12.0-15.0 [facility] prehensive Internal Medicine Work Phone: Comment on above: Order Date: 09/02/16 OV Order #: [id number] [place] [address] [address] [place], [address] Comprehensive Metabolic Prof ilOrdered By: Warehouse Trainer on 09-11-2016 Comprehensive metabolic 2000 panel 57 mL/min Abnormal Comprehensi ve Internal Medicine Work Phone: Comment on above: Non- GFR Calc Order Date: 09/02/16 OV Order #: [id number] Specimen #1, #2 or #3? [id number] [place] [address] [address] [place], [address] Comprehensive metabolic 2000 panel 1.2 {RATIO} Normal 0.9-2.4 Comprehensi ve Internal Medicine Work Phone: Comment on above: Order Date: 09/02/16 OV Order #: [id number] Specimen #1, #2 or #3? [id number] [place] [address] [address] [place], [address] Comprehensive metabolic 2000 panel 140 mmol/L Normal 136-145 Comprehensi ve Internal Medicine Work Phone: Comment on above: Order Date: 09/02/16 OV Order #: [id number] Specimen #1, #2 or #3? [address] [place] [address] [address] [place], [address] Comprehensive metabolic 2000 panel 0.20 mg/dL Normal 0.20-1.00 Comprehensi ve Internal Medicine Work Phone: Comment on above: Order Date: 09/02/16 OV Order #: [id number] Specimen #1, #2 or #3? [id number] [place] [address] [place], [address] Comprehensive metabolic 2000 panel 70 U/L Normal 45-117 Comprehensi ve Internal Medicine Work Phone: Comment on above: Order Date: 09/02/16 OV Order #: [id number] Specimen #1, #2 or #3? [address] [place] [address] [place], [place], [address]991 Comprehensive metabolic 2000 panel 26.0 mmol/L Normal 21.0-32.0 Comprehensi ve Internal Medicine Work Phone: Comment on above: Order Date: 09/02/16 OV Order #: [id number] Specimen #1, #2 or #3? [address] [place] [address] [place], [place], [address] Comprehensive metabolic 2000 panel 22 U/L Normal 15-37 Comprehensi ve Internal Medicine Work Phone: Comment on above: Order Date: 09/02/16 OV Order #: [id number] Specimen #1, #2 or #3? [address] [place] [address] [place], [place], [address] Comprehensive metabolic 2000 panel 1.03 mg/dL Abnormal 0.55-1.02 Comprehensi ve Internal Medicine Work Phone: Comment on above: The validity of the calculated GFR AND GFRAA in patients over70 years has not been determined. Clinical correlation isessential. Order Date: 09/02/16 OV Order #: [id number] Specimen #1, #2 or #3? [address] [place] [address] [place], [address] Comprehensive metabolic 2000 panel 24 U/L Normal 12-78 Comprehensi ve Internal Medicine Work Phone: Comment on above: Order Date: 09/02/16 OV Order #: [id number] Specimen #1, #2 or #3? [address] [place] [address] [place], [place], [address]45761 Comprehensive metabolic 2000 panel 9 1 Normal 5-15 Comprehensi ve Internal Medicine Work Phone: Comment on above: Order Date: 09/02/16 OV Order #: [id number] Specimen #1, #2 or #3? [address] [place] [address] [place], [place], 514681 Comprehensive metabolic 2000 panel 20.4 {RATIO} Abnormal 10-20 Comprehensi ve Internal Medicine Work Phone: Comment on above: Order Date: 09/02/16 OV Order #: [id number] Specimen #1, #2 or #3? [address] [place] [address] [place], [place], [address]31 Comprehensive metabolic 2000 panel 69 mL/min Normal Comprehensi ve Internal Medicine Work Phone: Comment on above: GFR Calc Order Date: 09/02/16 OV Order #: [id number] Specimen #1, #2 or #3? [address] [place] [address] [place], [place], [address]86691 Comprehensive metabolic 2000 panel 21 mg/dL Abnormal 7-18 Comprehensi ve Internal Medicine Work Phone: Comment on above: Order Date: 09/02/16 OV Order #: [id number] Specimen #1, #2 or #3? [address] [place] [address] [place], [place], [address]80501 Comprehensive metabolic 2000 panel 87 mg/dL Normal 70-110 Comprehensi ve Internal Medicine Work Phone: Comment on above: Order Date: 09/02/16 OV Order #: [id number] Specimen #1, #2 or #3? [address] [place] [address] [place], [place], [address] Comprehensive metabolic 2000 panel 4.1 mmol/L Normal 3.5-5.1 Comprehensi ve Internal Medicine Work Phone: Comment on above: Order Date: 09/02/16 OV Order #: [id number] Specimen #1, #2 or #3? [address] [place] [address] [place], [place], [address]3281 Comprehensive metabolic 2000 panel 3.3 g/dL Normal 2.3-3.5 Comprehensi ve Internal Medicine Work Phone: Comment on above: Order Date: 09/02/16 OV Order #: [id number] Specimen #1, #2 or #3? [address] [place] [address] [place], [place], [address] Comprehensive metabolic 2000 panel 4.0 g/dL Normal 3.4-5.0 Comprehensi ve Internal Medicine Work Phone: Comment on above: Order Date: 09/02/16 OV Order #: [id number] Specimen #1, #2 or #3? [address] [place] [address] [place], [place], [address] Comprehensive metabolic 2000 panel 8.8 mg/dL Normal 8.5-10.1 Comprehensi ve Internal Medicine Work Phone: Comment on above: Order Date: 09/02/16 OV Order #: [id number] Specimen #1, #2 or #3? [address] [place] [address] [place], [place], [address]3981 Comprehensive metabolic 2000 panel 105 mmol/L Normal 98-107 Comprehensi ve Internal Medicine Work Phone: Comment on above: Order Date: 09/02/16 OV Order #: [id number] Specimen #1, #2 or #3? [address] [place] [address] [place], [place], [address]76[address] Comprehensive metabolic 2000 panel 7.3 g/dL Normal 6.4-8.2 Comprehensi ve Internal Medicine Work Phone: Comment on above: Order Date: 09/02/16 OV Order #: [id number] Specimen #1, #2 or #3? [id number] [place] [address] [address] [place] [address], [address] LDHOrdered By: System Manage r on 09-11-2016 LDH enzyme act/vol 212 U/L Normal 84-246 Compre [facility] Internal Medicine Work Phone: Comment on above: Order Date: 09/02/16 OV Order #: [id number] Specimen #1, #2 or #3? [id number] [place] [address] [address] [place], [place], [address] Uric AcidOrdered By: Warehouse Trainer on 09-11-2016 Urate mass conc 3.0 mg/dL Normal 2.6-6.0 Comprehen [facility] Internal [facility] Work Phone: Comment on above: The drugs N-Acetylcy steine and Metamizole may falsely deressthis assay. Order Date: 09/02/16 OV Order #: [id number] Specimen #1, #2 or #3? [id number] [place] [address] [address] [place], [place], [address] Fecal Occult Blood , Office ([id number])Ordered By: Oziel Wright on 06-06-2016 Hemoglobin.gastrointe stinal Ql (St) Negative Normal Comprehensive Internal Medicine Work Phone: Lipid ProfileOrdered By: Elif tem Pepper Cutter on 05-17-2016 Lipid Profile 67 mg/dL Normal Comprehensi ve Internal Medicine Work Phone: Comment on above: The drugs N-Acetylcy steine and Metamizole may falsely deressthis assay. Reference Range HDL <40 mg/dL Low HDL Cholesterol HDL >or= 60 mg/dL High HDL Cholesterol [facility] [address] [place], [place], [address] Lipid Profile 24 mg/dL Normal 5-40 Comprehensi ve Internal Medicine Work Phone: Comment on above: [facility] [address] [place], [place], [id number] Lipid Profile 113 mg/dL Normal 0-130 Comprehensi ve Internal Medicine Work Phone: Comment on above: [facility] [address] [place], [place], [phone] Lipid Profile 122 mg/dL Normal Comprehensi ve Internal Medicine Work Phone: Comment on above: The drugs N-Acetylcy steine and Metamizole may falsely deressthis assay.Serum Triglycerides Reference Interval Normal <150 mg/dL Borderline high 150 - 199 mg/dL High 200 - 499 mg/dL Very High > or = 500 mg/dL [facility] [address] [place], [place], [id number] Lipid Profile 204 mg/dL Abnormal Comprehensi ve Internal Medicine Work Phone: Comment on above: <200 mg/dL Desirable 200-240 mg/dL Borderline >240 mg/dL High Risk [facility] [address] [place], [place], [id number] Liver ProfileOrdered By: Elif tem Pepper Cutter on 05-17-2016 Albumin mass conc 3.6 g/dL Normal 3.4-5.0 Compreh ensive Internal Medicine Work Phone: Comment on above: [facility] [address] [place], [place], [address] ALP enzyme act/vol 70 U/L Normal 50-136 Compre [facility] Work Phone: Comment on above: [facility] [address] [place], [place], [address] ALT enzyme act/vol 27 U/L Normal 12-78 Compre hensive Internal Medicine Work Phone: Comment on above: [facility] [address] [place], [place], [id number] AST enzyme act/vol 23 U/L Normal 15-37 Compre [facility] Internal Medicine Work Phone: Comment on above: [facility] [address] [place], [phone] Bilirubin mass conc 0.40 mg/dL Normal 0.20-1.00 Compr ensive Internal Medicine Work Phone: Comment on above: [facility] [address] [place], [id number] Bilirubin.direct mass conc 0.11 mg/dL Normal 0.00-0.30 [facility] Internal Medicine Work Phone: Comment on above: [facility] [address] [place], [address] Globulin mass conc (S) 3.2 g/dL Normal 2.3-3.5 [facility] Internal Medicine Work Phone: Comment on above: [facility] [address] [place], [id number] Protein mass conc 6.8 g/dL Normal 6.4-8.2 [facility] Internal Medicine Work Phone: Comment on above: [facility] [address] [place], [phone] Vitamin D,25 HydroxyOrdered By: Warehouse Trainer on 05-17-2016 Vitamin D,25 Hydroxy 55.3 ng/mL Normal [facility] Internal Medicine Work Phone: Comment on above: Vitamin D 25(OH) Sta tus Range Deficiency <20 ng/mL (50nmol/L) Insuffciency 20 - 30 ng/mL (50 - 75 nmol/L) Sufficiency 30 - 100 ng/mL (75 - 250 nmol/L) Toxicity >100 ng/mL (>250 nmol/L) [facility] [address] [place], [id number] CBC W/Diff, Auto - EPLAB Onl yOrdered By: Warehouse Trainer on 07-12-2016 Basophils/100 WBC (Bld) 1.0 % Normal 0-1 [facility] Internal Medicine Work Phone: Comment on above: At [facility] Outpatient [facility], [place] Medical Oncologypatients receive CBC w/auto Differential ONLY. Physicianwill place an order for a manual differential or Pathologistreview at his discretion. [facility]. [address] [place] [address] [address] THREAD MILLING MACHINE SET UP OPERATOR: MAGNOLIA HOLLY DO PH:[phone]-[facility] Center [address] [place], [place], [address] ; managed by clarke nielson CBC W Auto Differential panel - Blood 2.7 {X10_3/uL} Normal 2.0-7.7 [facility] Internal Medicine Work Phone: Comment on above: At [facility] Outpatient [facility], [place] Medical Oncologypatients receive CBC w/auto Differential ONLY. Physicianwill place an order for a manual differential or Pathologistreview at his discretion. [facility]. [address] [place] [address] [address] THREAD MILLING MACHINE SET UP OPERATOR: MAGNOLIA HOLLY DO PH:[phone]-Titus Medical Center [address] [place], [place], [id number] ; managed by clarke nielson Eosinophils/100 WBC (Bld) 1.5 % Normal 0-5 [facility] Internal Medicine Work Phone: Comment on above: At [facility] Outpatient [facility], [place] Medical Oncologypatients receive CBC w/auto Differential ONLY. Physicianwirobinson place an order for a manual differential or Pathologistreview at his discretion. [facility]. [address] [place] [address] [address] THREAD MILLING MACHINE SET UP OPERATOR: MAGNOLIA HOLLY DO PH:[phone]-Titus Medical Center [address] [place], [place], [phone] ; managed by clarke nielson Erythrocyte distribution width Ratio (RBC) 13.4 % Normal 11.6-14.6 [facility] Internal Medicine Work Phone: Comment on above: At [facility] Outpatient [facility], [place] Medical Oncologypatients receive CBC w/auto Differential ONLY. Physicianwill place an order for a manual differential or Pathologistreview at his discretion. [facility]. [address] [place] [address] [address] THREAD MILLING MACHINE SET UP OPERATOR: MAGNOLIA HOLLY DO PH:[phone]-Titus Medical Center [address] [place], [place], [phone] ; managed by clarke nielson Hematocrit Volume Fraction (Bld) 39.3 % Normal 37-47 [facility] Internal Medicine Work Phone: Comment on above: At [facility] Outpatient [facility], [place] Medical Oncologypatients receive CBC w/auto Differential ONLY. Physicianwill place an order for a manual differential or Pathologistreview at his discretion. [facility]. [address] [place] [address] [address] THREAD MILLING MACHINE SET UP OPERATOR: MAGNOLIA HOLLY DO PH:[phone]-Titus Medical Center [address] [place], [place], [phone] ; managed by clarke nielson Hemoglobin mass conc (Bld) 12.9 g/dL Normal 12.0-15.0 [facility] Internal Medicine Work Phone: Comment on above: At [facility] Outpatient [facility], [place] Medical Oncologypatients receive CBC w/auto Differential ONLY. Physicianwill place an order for a manual differential or Pathologistreview at his discretion. [facility]. [address] [place] [address] [address] THREAD MILLING MACHINE SET UP OPERATOR: MAGNOLIA HOLLY DO PH:[phone]-Titus Medical Center [address] [place], [place], [phone] ; managed by clarke nielson Lymphocytes #/vol (Bld) 1.27 {X10_3/uL} Normal 0.83-4.51 [facility] Internal Medicine Work Phone: Comment on above: At [facility] Outpatient [facility], [place] Medical Oncologypatients receive CBC w/auto Differential ONLY. Physicianwill place an order for a manual differential or Pathologistreview at his discretion. [facility]. [address] [place] [address] [address] THREAD MILLING MACHINE SET UP OPERATOR: MAGNOLIA HOLLY DO PH:[phone]-Titus Medical Center [address] [place], [place], [phone] ; managed by clarke nielson Lymphocytes/100 WBC (Bld) 27.4 % Normal 19-41 [facility] Internal Medicine Work Phone: Comment on above: At [facility] Outpatient [facility], [place] Medical Oncologypatients receive CBC w/auto Differential ONLY. Physicianwill place an order for a manual differential or Pathologistreview at his discretion. [facility]. [address] [place] [address] [address] THREAD MILLING MACHINE SET UP OPERATOR: MAGNOLIA HOLLY DO PH:[phone]-Titus Medical Center [address] [place], [place], [phone] ; managed by clarke nielson [facility] Entitic mass (RBC) 30.9 pg Normal 27.0-32.0 [facility] Internal Medicine Work Phone: Comment on above: At [facility] Outpatient [facility], [place] Medical Oncologypatients receive CBC w/auto Differential ONLY. Physicianwill place an order for a manual differential or Pathologistreview at his discretion. [facility]. [address] [place] [address] [address] THREAD MILLING MACHINE SET UP OPERATOR: MAGNOLIA HOLLY DO PH:[phone]-Titus Medical Center [address] [place], [place], [phone] ; managed by clarke nielson [facility] mass conc (RBC) 32.9 g/dL Normal 32-36 [facility] Internal Medicine Work Phone: Comment on above: At [facility] Outpatient [facility], [place] Medical Oncologypatients receive CBC w/auto Differential ONLY. Physicianwill place an order for a manual differential or Pathologistreview at his discretion. [facility]. [address] [place] [address] [address] THREAD MILLING MACHINE SET UP OPERATOR: MAGNOLIA HOLLY DO PH:[phone]-Titus Medical Center [address] [place], [place], [phone] ; managed by clarke nielson MCV Entitic volume (RBC) 94.1 fL Normal 81-99 [facility] Internal Medicine Work Phone: Comment on above: At [facility] Outpatient [facility], [place] Medical Oncologypatients receive CBC w/auto Differential ONLY. Physicianwill place an order for a manual differential or Pathologistreview at his discretion. [facility]. [address] [place] [address] [address] THREAD MILLING MACHINE SET UP OPERATOR: MAGNOLIA HOLLY DO PH:[phone]-Titus Medical Center [address] [place], [place], [phone] ; managed by clarke nielson Monocytes/100 WBC (Bld) 12.6 % Abnormal 0-10 [facility] Internal Medicine Work Phone: Comment on above: At [facility] Outpatient [facility], [place] Medical Oncologypatients receive CBC w/auto Differential ONLY. Physicianwill place an order for a manual differential or Pathologistreview at his discretion. [facility]. [address] [place] [address] [address] THREAD MILLING MACHINE SET UP OPERATOR: MAGNOLIA HOLLY DO PH:[phone]-Titus Medical Center [address] [place], [place], [phone] ; managed by clarke nielson Neutrophils/100 WBC (Bld) 57.5 % Normal 47-70 [facility] Internal Medicine Work Phone: Comment on above: At [facility] Outpatient [facility], [place] Medical Oncologypatients receive CBC w/auto Differential ONLY. Physicianwill place an order for a manual differential or Pathologistreview at his discretion. [facility]. [address] [place] [address] [address] THREAD MILLING MACHINE SET UP OPERATOR: MAGNOLIA HOLLY DO PH:[phone]-Titus Medical Center [address] [place], [place], [phone] ; managed by clarke nielson Platelet mean volume Entitic volume (Bld) 6.0 fL Abnormal 6.2-12.0 Comprehensi Internal Medicine Work Phone: Comment on above: At [facility] Outpatient [facility] Medical Oncologypatients receive CBC w/auto Differential ONLY. Physicianwirobinson place an order for a manual differential or Pathologistreview at his discretion. [facility]. [address] [place] [address] [address] THREAD MILLING MACHINE SET UP OPERATOR: MAGNOLIA HOLLY DO PH:[phone]-Titus Medical Center [address] [place], [address] ; managed by clarke nielson Platelets #/vol (Bld) 259 10*3/uL Normal 150-450 [facility] Internal Medicine Work Phone: Comment on above: At [facility] Outpatient [facility], [place] Medical Oncologypatients receive CBC w/auto Differential ONLY. Physicianwirobinson place an order for a manual differential or Pathologistreview at his discretion. [facility]. [address] [place] [address] [place] [address] THREAD MILLING MACHINE SET UP OPERATOR: MAGNOLIA HOLLY DO PH:[phone]-Titus Medical Center [address] [place], [address] ; managed by clarke nielson RBC #/vol (Bld) 4.18 {M/mm3} Abnormal 4.2-5.4 Compreh ensive Internal Medicine Work Phone: Comment on above: At [facility] Outpatient [facility], [place] Medical Oncologypatients receive CBC w/auto Differential ONLY. Physicianjames place an order for a manual differential or Pathologistreview at his discretion. [facility]. [address] [place] [address] [address] THREAD MILLING MACHINE SET UP OPERATOR: MAGNOLIA HOLLY DO PH:[phone]-Titus Medical Center [address] [place], [place], [phone] ; managed by clarke nielson WBC #/vol (Bld) 4.6 10*3/uL Normal 4.4-11.0 Comprehe nsive Internal Medicine Work Phone: Comment on above: At [facility] Outpatient [facility] Medical Oncologypatients receive CBC w/auto Differential ONLY. Physicianwirobinson place an order for a manual differential or Pathologistreview at his discretion. [facility]. [address] [place] [address] [address] THREAD MILLING MACHINE SET UP OPERATOR: MAGNOLIA HOLLY DO PH:[phone]-Titus Medical Center [address] [place], [place], [phone] ; managed by clarke nielson [facility] Metabolic Prof ilOrdered By: Warehouse Trainer on 03-05-2016 Comprehensive metabolic 2000 panel 7 1 Normal 5-15 Comprehensi ve Internal Medicine Work Phone: Comment on above: Serial Specimen #1, #2 or #3? [address] [place] [address] [place], [address] Comprehensive metabolic 2000 panel 53 mL/min Abnormal Comprehensi ve Internal Medicine Work Phone: Comment on above: Non- GFR Calc Serial Specimen #1, #2 or #3? [address] [place] [address] [place], [address] Comprehensive metabolic 2000 panel 103 mmol/L Normal 98-107 Comprehensi ve Internal Medicine Work Phone: Comment on above: Serial Specimen #1, #2 or #3? [address] [place] [address] [place], [address] Comprehensive metabolic 2000 panel 1.10 mg/dL Normal 0.55-1.20 Comprehensi ve Internal Medicine Work Phone: Comment on above: The validity of the calculated GFR AND GFRAA in patients over70 years has not been determined. Clinical correlation isessential. Serial Specimen #1, #2 or #3? [address] [place] [address] [place], [address] Comprehensive metabolic 2000 panel 30.0 mmol/L Normal 21.0-32.0 Comprehensi ve Internal Medicine Work Phone: Comment on above: Serial Specimen #1, #2 or #3? [address] [place] [address] [place], [address] Comprehensive metabolic 2000 panel 4.1 mmol/L Normal 3.5-5.1 Comprehensi ve Internal Medicine Work Phone: Comment on above: Serial Specimen #1, #2 or #3? [address] [place] [address] [place], [place], [id number] Comprehensive metabolic 2000 panel 140 mmol/L Normal 136-145 Comprehensi ve Internal Medicine Work Phone: Comment on above: Serial Specimen #1, #2 or #3? [address] [place] [address] [place], [place], [address] Comprehensive metabolic 2000 panel 0.40 mg/dL Normal 0.20-1.00 Comprehensi ve Internal Medicine Work Phone: Comment on above: Serial Specimen #1, #2 or #3? [address] [place] [address] [place], [place], [address] Comprehensive metabolic 2000 panel 27 U/L Normal 12-78 Comprehensi ve Internal Medicine Work Phone: Comment on above: Serial Specimen #1, #2 or #3? [address] [place] [address] [place], [address] Comprehensive metabolic 2000 panel 63 U/L Normal 50-136 Comprehensi ve Internal Medicine Work Phone: Comment on above: Serial Specimen #1, #2 or #3? [address] [place] [address] [place], [address] Comprehensive metabolic 2000 panel 23 U/L Normal 15-37 Comprehensi ve Internal Medicine Work Phone: Comment on above: Serial Specimen #1, #2 or #3? [address] [place] [address] [place], [place], [address] Comprehensive metabolic 2000 panel 9.0 mg/dL Normal 8.5-10.1 Comprehensi ve Internal Medicine Work Phone: Comment on above: Serial Specimen #1, #2 or #3? [address] [place] [address] [place], [place], [address] Comprehensive metabolic 2000 panel 1.2 {RATIO} Normal 0.9-2.4 Comprehensi ve Internal Medicine Work Phone: Comment on above: Serial Specimen #1, #2 or #3? [address] [place] [address] [place], [place], [address] Comprehensive metabolic 2000 panel 3.2 g/dL Normal 2.3-3.5 Comprehensi ve Internal Medicine Work Phone: Comment on above: Serial Specimen #1, #2 or #3? [address] [place] [address] [place], [address] Comprehensive metabolic 2000 panel 3.7 g/dL Normal 3.4-5.0 Comprehensi ve Internal Medicine Work Phone: Comment on above: Serial Specimen #1, #2 or #3? [address] [place] [address] [place], [place], [address] Comprehensive metabolic 2000 panel 6.9 g/dL Normal 6.4-8.2 Comprehensi ve Internal Medicine Work Phone: Comment on above: Serial Specimen #1, #2 or #3? [address] [place] [address] [place], [place], [address] Comprehensive metabolic 2000 panel 14.5 {RATIO} Normal 10-20 Comprehensi ve Internal Medicine Work Phone: Comment on above: Serial Specimen #1, #2 or #3? [address] [place] [address] [place], [place], [address] Comprehensive metabolic 2000 panel 89 mg/dL Normal 70-110 Comprehensi ve Internal Medicine Work Phone: Comment on above: Serial Specimen #1, #2 or #3? [address] [place] [address] [place], [place], [address] Comprehensive metabolic 2000 panel 16 mg/dL Normal 7-18 Comprehensi ve Internal Medicine Work Phone: Comment on above: Serial Specimen #1, #2 or #3? [address] [place] [address] [place], [place], [address] Comprehensive metabolic 2000 panel 64 mL/min Normal Comprehensi ve Internal Medicine Work Phone: Comment on above: GFR Calc Serial Specimen #1, #2 or #3? [address] [place] [address] [place], [place], [address] LDHOrdered By: System Manage r on 03-05-2016 LDH enzyme act/vol 205 U/L Normal 84-246 [facility] Internal Medicine Work Phone: Comment on above: Serial Specimen #1, #2 or #3? [address] [place] [address] [place], [place], [phone] Uric AcidOrdered By: Warehouse Trainer on 03-05-2016 Urate mass conc 3.2 mg/dL Normal 2.6-6.0 [facility] Internal Medicine Work Phone: Comment on above: The drugs N-Acetylcy steine and Metamizole may falsely deressthis assay. Serial Specimen #1, #2 or #3? [address] [place] [address] [place], [place], [address] CBC W/Diff, AutomatedOrdered By: Warehouse Trainer on 02-09-2016 CBC W/Diff, Automated SLIDE SCANNED Normal Comprehensive Internal Medicine Work Phone: Comment on above: [facility] [address] [place], [address] CBC W/Diff, Automated 0.8 % Normal 0-1 Com prehensive Internal Medicine Work Phone: Comment on above: [facility] [address] [place], [address] CBC W/Diff, Automated 3.8 K/mm3 Abnormal 4.4-11.0 Com prehensive Internal Medicine Work Phone: Comment on above: [facility] [address] [place], [address] CBC W/Diff, Automated 4.04 {M/mm3} Abnormal 4.2-5.4 [facility] Work Phone: Comment on above: [facility] [address] [place], [address] CBC W/Diff, Automated 12.3 g/dL Normal 12.0-15.0 [facility] prehensive Internal Medicine Work Phone: Comment on above: [facility] [address] [place], [address] CBC W/Diff, Automated 38.8 % Normal 37-47 [facility] prehensive Internal Medicine Work Phone: Comment on above: [facility] [address] [place], [address] CBC W/Diff, Automated 96.0 fL Normal 81-99 [facility] prehensive Internal Medicine Work Phone: Comment on above: [facility] [address] [place], [address] CBC W/Diff, Automated 30.4 pg Normal 27.0-32.0 [facility] prehensive Internal Medicine Work Phone: Comment on above: [facility] [address] [place], [address] CBC W/Diff, Automated 31.7 {g/gl} Abnormal 32-36 [facility] Work Phone: Comment on above: [facility] [address] [place], [address] CBC W/Diff, Automated 53.6 fL Abnormal 35.1-43.9 [facility] prehensive Internal Medicine Work Phone: Comment on above: [facility] [address] [place], [place], [address] CBC W/Diff, Automated 266 K/mm3 Normal 150-450 [facility] prehensive Internal Medicine Work Phone: Comment on above: [facility] [address] [place], [place], [phone] CBC W/Diff, Automated 9.6 fL Normal 6.2-12.0 [facility] prehensive Internal Medicine Work Phone: Comment on above: [facility] [address] [place], [place], [address] CBC W/Diff, Automated 52.5 % Normal 47-70 [facility] prehensive Internal Medicine Work Phone: Comment on above: [facility] [address] [place], [place], [id number] CBC W/Diff, Automated 32.5 % Normal 19-41 [facility] prehensive Internal Medicine Work Phone: Comment on above: [facility] [address] [place], [place], [phone] CBC W/Diff, Automated 10.8 % Abnormal 0-10 [facility] prehensive Internal Medicine Work Phone: Comment on above: [facility] [address] [place], [place], [phone] CBC W/Diff, Automated 2.9 % Normal 0-5 [facility] prehensive Internal Medicine Work Phone: Comment on above: [facility] [address] [place], [place], [phone] CBC W/Diff, Automated 0.500 % Normal 0.0-0.9 [facility] prehensive Internal Medicine Work Phone: Comment on above: IG% - Immature Granu locytes (promyelocytes, myelocytes andmetamyelocytes) > 1% indicates that a LEFT SHIFT is Present. [facility] [address] [place], [place], [address] CBC W/Diff, Automated 2.0 {X10_3/uL} Normal 2.0-7.7 [facility] Medicine Work Phone: Comment on above: [facility] [address] [place], [place], [address] CBC W/Diff, Automated 1.23 {X10_3/ul} Normal 0.83-4.51 [facility] Medicine Work Phone: Comment on above: [facility] [address] [place], [place], [phone] CBC W/Diff, Automated 1+ Normal Com prehensive Internal Medicine Work Phone: Comment on above: [facility] [address] [place], [place], [id number] CBC W/Diff, Automated 15.0 % Abnormal 11.6-14.6 [facility] prehensive Internal Medicine Work Phone: Comment on above: [facility] [address] [place], [address] Comprehensive Metabolic Prof ilOrdered By: Warehouse Trainer on 02-09-2016 Comprehensive metabolic 2000 panel 4.1 mmol/L Normal 3.5-5.1 Comprehensi ve Internal Medicine Work Phone: Comment on above: [facility] [address] [place], [place], [address] ; will review at 02/20 appt Comprehensive metabolic 2000 panel 32 U/L Normal 12-78 Comprehensi ve Internal Medicine Work Phone: Comment on above: [facility] [address] [place], [place], [phone] ; will review at 02/20 appt Comprehensive metabolic 2000 panel 81 mg/dL Normal 70-110 Comprehensi ve Internal Medicine Work Phone: Comment on above: [facility] [address] [place], [place], [address] ; will review at 02/20 appt Comprehensive metabolic 2000 panel 63 U/L Normal 50-136 Comprehensi ve Internal Medicine Work Phone: Comment on above: [facility] [address] [place], [place], [id number] ; will review at 02/20 appt Comprehensive metabolic 2000 panel 24 U/L Normal 15-37 Comprehensi ve Internal Medicine Work Phone: Comment on above: [facility] [address] [place], [place], [id number] ; will review at 02/20 appt Comprehensive metabolic 2000 panel 30.0 mmol/L Normal 21.0-32.0 Comprehensi ve Internal Medicine Work Phone: Comment on above: [facility] [address] [place], [place], [phone] ; will review at 02/20 appt Comprehensive metabolic 2000 panel 7 1 Normal 5-15 Comprehensi ve Internal Medicine Work Phone: Comment on above: [facility] [address] [place], [place], [address] ; will review at 02/20 appt Comprehensive metabolic 2000 panel 8.7 mg/dL Normal 8.5-10.1 Comprehensi ve Internal Medicine Work Phone: Comment on above: [facility] [address] [place], [place], [phone] ; will review at 02/20 appt Comprehensive metabolic 2000 panel 0.98 mg/dL Normal 0.55-1.20 Comprehensi ve Internal Medicine Work Phone: Comment on above: The validity of the calculated GFR AND GFRAA in patients over70 years has not been determined. Clinical correlation isessential. [facility] [address] [place], [place], [id number] ; will review at 02/20 appt Comprehensive metabolic 2000 panel 14.3 {RATIO} Normal 10-20 Comprehensi ve Internal Medicine Work Phone: Comment on above: [facility] [address] [place], [place], [id number] ; will review at 02/20 appt Comprehensive metabolic 2000 panel 1.1 {RATIO} Normal 0.9-2.4 Comprehensi ve Internal Medicine Work Phone: Comment on above: [facility] spital [address] [place], [place], [id number] ; will review at 02/20 appt Comprehensive metabolic 2000 panel 14 mg/dL Normal 7-18 Comprehensi ve Internal Medicine Work Phone: Comment on above: [facility] [address] [place], [place], [phone] ; will review at 02/20 appt Comprehensive metabolic 2000 panel 3.3 g/dL Normal 2.3-3.5 Comprehensi ve Internal Medicine Work Phone: Comment on above: [facility] [address] [place], [place], [address] ; will review at 02/20 appt Comprehensive metabolic 2000 panel 3.5 g/dL Normal 3.4-5.0 Comprehensi ve Internal Medicine Work Phone: Comment on above: [facility] [address] [place], [place], [address] ; will review at 02/20 appt Comprehensive metabolic 2000 panel 140 mmol/L Normal 136-145 Comprehensi ve Internal Medicine Work Phone: Comment on above: [facility] [address] [place], [place], [id number] ; will review at 02/20 appt Comprehensive metabolic 2000 panel 60 mL/min Normal Comprehensi ve Internal Medicine Work Phone: Comment on above: Non- GFR Calc [facility] [address] [place], [place], [phone] ; will review at 02/20 appt Comprehensive metabolic 2000 panel 6.8 g/dL Normal 6.4-8.2 Comprehensi ve Internal Medicine Work Phone: Comment on above: [facility] [address] [place], [place], [address] ; will review at 02/20 appt Comprehensive metabolic 2000 panel 73 mL/min Normal Comprehensi ve Internal Medicine Work Phone: Comment on above: GFR Calc [facility] [address] [place], [place], [id number] ; will review at 02/20 appt Comprehensive metabolic 2000 panel 0.40 mg/dL Normal 0.20-1.00 Comprehensi ve Internal Medicine Work Phone: Comment on above: [facility] [address] [place], [place], [phone] ; will review at 02/20 appt Comprehensive metabolic 2000 panel 103 mmol/L Normal 98-107 Comprehensi ve Internal Medicine Work Phone: Comment on above: [facility] [address] [place], [place], [id number] ; will review at 02/20 appt Lipid ProfileOrdered By: Elif tem Pepper Cutter on 02-09-2016 Lipid Profile 94 mg/dL Normal Comprehensi ve Internal Medicine Work Phone: Comment on above: The drugs N-Acetylcy steine and Metamizole may falsely deressthis assay.Serum Triglycerides Reference Interval Normal <150 mg/dL Borderline high 150 - 199 mg/dL High 200 - 499 mg/dL Very High > or = 500 mg/dL [facility] [address] [place], [place], [address] Lipid Profile 87 mg/dL Normal Comprehensi ve Internal Medicine Work Phone: Comment on above: The drugs N-Acetylcy steine and Metamizole may falsely deressthis assay. Reference Range HDL <40 mg/dL Low HDL Cholesterol HDL >or= 60 mg/dL High HDL Cholesterol [facility] [address] [place], [id number] Lipid Profile 134 mg/dL Abnormal 0-130 Comprehensi ve Internal Medicine Work Phone: Comment on above: [facility] [address] [place], [place], [id number] Lipid Profile 19 mg/dL Normal 5-40 Comprehensi ve Internal Medicine Work Phone: Comment on above: [facility] [address] [place], [phone] Lipid Profile 240 mg/dL Abnormal Comprehensi ve Internal Medicine Work Phone: Comment on above: <200 mg/dL Desirable 200-240 mg/dL Borderline >240 mg/dL High Risk [place] [address] [place], [id number] Vitamin D,25 HydroxyOrdered By: Warehouse Trainer on 02-09-2016 Vitamin D,25 Hydroxy 48.9 ng/mL Normal Comp rehensive Internal Medicine Work Phone: Comment on above: Vitamin D 25([place]) Sta tus Range Deficiency <20 ng/mL (50nmol/L) Insuffciency 20 - 30 ng/mL (50 - 75 nmol/L) Sufficiency 30 - 100 ng/mL (75 - 250 nmol/L) Toxicity >100 ng/mL (>250 nmol/L) [facility] [address] [place], [id number] Comprehensive Metabolic Prof ilOrdered By: Warehouse Trainer on 11-06-2015 Comprehensive metabolic 2000 panel 3.5 g/dL Normal 3.4-5.0 Comprehensi ve Internal Medicine Work Phone: Comment on above: [facility] [address] [place], [phone] Comprehensive metabolic 2000 panel 22 U/L Normal 15-37 Comprehensi ve Internal Medicine Work Phone: Comment on above: [facility] [address] [place], [address] Comprehensive metabolic 2000 panel 8.8 mg/dL Normal 8.5-10.1 Comprehensi ve Internal Medicine Work Phone: Comment on above: [facility] [address] [place], [place], [address] Comprehensive metabolic 2000 panel 4 1 Abnormal 5-15 Comprehensi ve Internal Medicine Work Phone: Comment on above: [facility] [address] [place], [place], [id number] Comprehensive metabolic 2000 panel 3.4 g/dL Normal 2.3-3.5 Comprehensi ve Internal Medicine Work Phone: Comment on above: [facility] [address] [place], [place], [phone] Comprehensive metabolic 2000 panel 28.0 mmol/L Normal 21.0-32.0 Comprehensi ve Internal Medicine Work Phone: Comment on above: [facility] [address] [place], [place], [address] Comprehensive metabolic 2000 panel 140 mmol/L Normal 136-145 Comprehensi ve Internal Medicine Work Phone: Comment on above: [facility] [address] [place], [place], [address] Comprehensive metabolic 2000 panel 0.50 mg/dL Normal 0.20-1.00 Comprehensi ve Internal Medicine Work Phone: Comment on above: [facility] [address] [place], [place], [phone] Comprehensive metabolic 2000 panel 0.98 mg/dL Normal 0.55-1.20 Comprehensi ve Internal Medicine Work Phone: Comment on above: The validity of the calculated GFR AND GFRAA in patients over70 years has not been determined. Clinical correlation isessential. [facility] [address] [place], [address] Comprehensive metabolic 2000 panel 60 mL/min Normal Comprehensi ve Internal Medicine Work Phone: Comment on above: Non- GFR Calc [facility] [address] [place], [address] Comprehensive metabolic 2000 panel 108 mmol/L Abnormal 98-107 Comprehensi ve Internal Medicine Work Phone: Comment on above: [facility] [address] [place], [address] Comprehensive metabolic 2000 panel 73 mL/min Normal Comprehensi ve Internal Medicine Work Phone: Comment on above: GFR Calc [facility] [address] [place], [address] Comprehensive metabolic 2000 panel 69 U/L Normal 50-136 Comprehensi ve Internal Medicine Work Phone: Comment on above: [facility] [address] [place], [address] Comprehensive metabolic 2000 panel 4.0 mmol/L Normal 3.5-5.1 Comprehensi ve Internal Medicine Work Phone: Comment on above: [facility] [address] [place], [address] Comprehensive metabolic 2000 panel 13.2 {RATIO} Normal 10-20 Comprehensi ve Internal Medicine Work Phone: Comment on above: [facility] [address] [place], [address] Comprehensive metabolic 2000 panel 13 mg/dL Normal 7-18 Comprehensi ve Internal Medicine Work Phone: Comment on above: [facility] [address] [place], [address] Comprehensive metabolic 2000 panel 6.9 g/dL Normal 6.4-8.2 Comprehensi ve Internal Medicine Work Phone: Comment on above: [facility] [address] [place], [address] Comprehensive metabolic 2000 panel 25 U/L Normal 12-78 Comprehensi ve Internal Medicine Work Phone: Comment on above: [facility] [address] [place], [place], [address] Comprehensive metabolic 2000 panel 74 mg/dL Normal 70-110 Comprehensi ve Internal Medicine Work Phone: Comment on above: [facility] [address] [place], [place], [address] Comprehensive metabolic 2000 panel 1.0 {RATIO} Normal 0.9-2.4 Comprehensi ve Internal Medicine Work Phone: Comment on above: [facility] [address] [place], [place], [address] Lipid ProfileOrdered By: [facility] Pepper Cutter on 11-06-2015 Lipid Profile 67 mg/dL Normal Comprehensi ve Internal Medicine Work Phone: Comment on above: Reference Range HDL <40 mg/dL Low HDL Cholesterol HDL >or= 60 mg/dL High HDL Cholesterol [facility] [address] [place], [place], [address] Lipid Profile 176 mg/dL Normal Comprehensi ve Internal Medicine Work Phone: Comment on above: Serum Triglycerides Reference Interval Normal <150 mg/dL Borderline high 150 - 199 mg/dL High 200 - 499 mg/dL Very High > or = 500 mg/dL [facility] [address] [place], [place], [address] Lipid Profile 237 mg/dL Abnormal Comprehensi ve Internal Medicine Work Phone: Comment on above: <200 mg/dL Desirable 200-240 mg/dL Borderline >240 mg/dL High Risk [facility] [address] [place], [place], [address] Lipid Profile 35 mg/dL Normal 5-40 Comprehensi ve Internal Medicine Work Phone: Comment on above: [facility] [address] [place], [address] Lipid Profile 135 mg/dL Abnormal 0-130 Comprehensi ve Internal Medicine Work Phone: Comment on above: [facility] [address] [place], [address] Thyroid Stim Hormone (TSH)Or dered By: Warehouse Trainer on 11-06-2015 Thyrotropin Qn 1.67 {uIU/mL} Normal 0.358-3.74 Compreh ensive Internal Medicine Work Phone: Comment on above: [facility] [address] [place], [address] Vitamin D,25 HydroxyOrdered By: Warehouse Trainer on 11-06-2015 Vitamin D,25 Hydroxy 43.6 ng/mL Normal Comp rehensive Internal Medicine Work Phone: Comment on above: Vitamin D 25([place]) Sta tus Range Deficiency <20 ng/mL (50nmol/L) Insuffciency 20 - 30 ng/mL (50 - 75 nmol/L) Sufficiency 30 - 100 ng/mL (75 - 250 nmol/L) Toxicity >100 ng/mL (>250 nmol/L) [facility] [address] [place], [address] Rapid Strep Test, Office ([phone])Ordered By: Anaya Brown on 10-23-2015 S. pyogenes Ag IA Ql (Unsp spec) Negative Normal Comprehensive Internal Medicine Work Phone: CA [phone] By: Bharath cardenas on 08-31-2015 Cancer Ag 15-3 Ql 14.7 U/mL Normal 0.0-25.0 Compreh ensive Internal Medicine Work Phone: Comment on above: Edy ECLIA methodol ogyPerformed at: [facility] [address] [id number] Director: Raphael Rodríguez PhD, Phone: [phone] ADD ON USE 0107:EP17 [facility] (refer to report for specific site)refer to report for address and phone number CA [phone] By: Bharath brambila on 08-31-2015 Cancer Ag 27-29 Ql 17.7 U/mL Normal 0.0-38.6 Compre [facility] Internal Medicine Work Phone: Comment on above: Elva Centaur/ACS me thodology ADD ON USE 0107:EP17 [facility] (refer to report for specific site)refer to report for address and phone number CBC W/Diff, Auto - EPLAB Onl yOrdered By: Warehouse Trainer on 08-31-2015 Basophils/100 WBC (Bld) 1.3 % Abnormal 0-1 Comprehensive Internal Medicine Work Phone: Comment on above: At [facility] Outpatient [facility], [place] Medical Oncologypatients receive CBC w/auto Differential ONLY. Physicianwill place an order for a manual differential or Pathologistreview at his discretion. [facility]. [address] [place] [address] [address] THREAD MILLING MACHINE SET UP OPERATOR: MAGNOLIA HOLLY DO PH:[phone]-Titus Medical Center [address] [place], [place], [address] CBC W Auto Differential panel - Blood 2.9 {X10_3/uL} Normal 2.0-7.7 Comprehensive Internal Medicine Work Phone: Comment on above: At [facility] Medical Oncologypatients receive CBC w/auto Differential ONLY. Physicianwill place an order for a manual differential or Pathologistreview at his discretion. [facility]. [address] [place] [address] [address] THREAD MILLING MACHINE SET UP OPERATOR: MAGNOLIA HOLLY DO PH:[phone]-Titus Medical Center [address] [place], [place], [address] Eosinophils/100 WBC (Bld) 2.0 % Normal 0-5 Comprehensive Internal Medicine Work Phone: Comment on above: At [facility] Medical Oncologypatients receive CBC w/auto Differential ONLY. Physicianwill place an order for a manual differential or Pathologistreview at his discretion. [facility]. [address] [place] [address] [address] THREAD MILLING MACHINE SET UP OPERATOR: MAGNOLIA HOLLY DO PH:[phone]-Titus Medical Center [address] [place], [place], [address] Erythrocyte distribution width Ratio (RBC) 13.0 % Normal 11.6-14.6 Comprehensive Internal Medicine Work Phone: Comment on above: At [facility] Outpatient [facility], [place] Medical Oncologypatients receive CBC w/auto Differential ONLY. Physicianwill place an order for a manual differential or Pathologistreview at his discretion. [facility]. [address] [place] [address] [address] THREAD MILLING MACHINE SET UP OPERATOR: MAGNOLIA HOLLY DO PH:[phone]-Titus Medical Center [address] [place], [place], [address] Hematocrit Volume Fraction (Bld) 39.0 % Normal 37-47 Comprehensive Internal Medicine Work Phone: Comment on above: At [facility] Outpatient [facility] [place] Medical Oncologypatients receive CBC w/auto Differential ONLY. Physicianwill place an order for a manual differential or Pathologistreview at his discretion. [facility]. [address] [place] [address] [address] THREAD MILLING MACHINE SET UP OPERATOR: MAGNOLIA HOLLY DO PH:[phone]-Titus Medical Center [address] [place], [place], [address] Hemoglobin mass conc (Bld) 13.0 g/dL Normal 12.0-15.0 Comprehensive Internal Medicine Work Phone: Comment on above: At [facility] Outpatient [facility], [place] Medical Oncologypatients receive CBC w/auto Differential ONLY. Physicianwirobinson place an order for a manual differential or Pathologistreview at his discretion. [facility]. [address] [place] [address] [address] THREAD MILLING MACHINE SET UP OPERATOR: MAGNOLIA HOLLY DO PH:[phone]-Titus Medical Center [address] [place], [place], [phone] Lymphocytes #/vol (Bld) 1.04 {X10_3/uL} Normal 0.83-4.51 Comprehensive Internal Medicine Work Phone: Comment on above: At [facility] Outpatient [facility] [place] Medical Oncologypatients receive CBC w/auto Differential ONLY. Physicianwill place an order for a manual differential or Pathologistreview at his discretion. [facility]. [address] [place] [address] [address] THREAD MILLING MACHINE SET UP OPERATOR: MAGNOLIA HOLLY DO PH:[phone]-Titus Medical Center [address] [place], [place], [address] Lymphocytes/100 WBC (Bld) 23.3 % Normal 19-41 Comprehensive Internal Medicine Work Phone: Comment on above: At [facility] Outpatient [facility], [place] Medical Oncologypatients receive CBC w/auto Differential ONLY. Physicianwill place an order for a manual differential or Pathologistreview at his discretion. [facility]. [address] [place] [address] [address] THREAD MILLING MACHINE SET UP OPERATOR: MAGNOLIA HOLLY DO PH:[phone]-Titus Medical Center [address] [place], [place], [phone] MCH Entitic mass (RBC) 30.2 pg Normal 27.0-32.0 Comprehensive Internal Medicine Work Phone: Comment on above: At [facility] Outpatient [facility], [place] Medical Oncologypatients receive CBC w/auto Differential ONLY. Physicianwill place an order for a manual differential or Pathologistreview at his discretion. [facility]. [address] [place] [address] [address] THREAD MILLING MACHINE SET UP OPERATOR: MAGNOLIA HOLLY DO PH:[phone]-Titus Medical Center [address] [place], [place], [address] MCHC mass conc (RBC) 33.5 g/dL Normal 32-36 [facility] Internal Medicine Work Phone: Comment on above: At [facility] Outpatient [facility], [place] Medical Oncologypatients receive CBC w/auto Differential ONLY. Physicianwill place an order for a manual differential or Pathologistreview at his discretion. [facility]. [address] [place] [address] [address] THREAD MILLING MACHINE SET UP OPERATOR: MAGNOLIA HOLLY DO PH:[phone]-Titus Medical Center [address] [place], [address] MCV Entitic volume (RBC) 90.3 fL Normal 81-99 Comprehensive Internal Medicine Work Phone: Comment on above: At [facility] Outpatient [facility], [place] Medical Oncologypatients receive CBC w/auto Differential ONLY. Physicianwill place an order for a manual differential or Pathologistreview at his discretion. [facility]. [address] [place] [address] [address] THREAD MILLING MACHINE SET UP OPERATOR: MAGNOLIA HOLLY DO PH:[phone]-Titus Medical Center [address] [place], [address] Monocytes/100 WBC (Bld) 9.4 % Normal 0-10 Comprehensive Internal Medicine Work Phone: Comment on above: At [facility] Outpatient [facility], [place] Medical Oncologypatients receive CBC w/auto Differential ONLY. Physicianwill place an order for a manual differential or Pathologistreview at his discretion. [facility]. [address] [place] [address] [address] THREAD MILLING MACHINE SET UP OPERATOR: MAGNOLIA HOLLY DO PH:[phone]-Titus Medical Center [address] [place], [address] Neutrophils/100 WBC (Bld) 64.1 % Normal 47-70 Comprehensive Internal Medicine Work Phone: Comment on above: At [facility] Outpatient [facility], [place] Medical Oncologypatients receive CBC w/auto Differential ONLY. Physicianwill place an order for a manual differential or Pathologistreview at his discretion. [facility]. [address] [place] [address] [address] THREAD MILLING MACHINE SET UP OPERATOR: MAGNOLIA HOLLY DO PH:[phone]-Titus Medical Center [address] [place], [place], [phone] Platelet mean volume Entitic volume (Bld) 6.8 fL Normal 6.2-12.0 Comprehensi ve Internal Medicine Work Phone: Comment on above: At [facility] Outpatient [facility], [place] Medical Oncologypatients receive CBC w/auto Differential ONLY. Physicianwill place an order for a manual differential or Pathologistreview at his discretion. [facility]. [address] [place] [address] [address] [address] THREAD MILLING MACHINE SET UP OPERATOR: MAGNOLIA HOLLY DO PH:[phone]-Titus Medical Center [address] [place], [address] Platelets #/vol (Bld) 271 10*3/uL Normal 150-450 Co mprehensive Internal Medicine Work Phone: Comment on above: At [facility] Outpatient [facility], [place] Medical Oncologypatients receive CBC w/auto Differential ONLY. Physicianwill place an order for a manual differential or Pathologistreview at his discretion. [facility]. [address] [place] [address] [address] THREAD MILLING MACHINE SET UP OPERATOR: MAGNOLIA HOLLY DO PH:[phone]-Titus Medical Center [address] [place], [address] RBC #/vol (Bld) 4.31 {M/mm3} Normal 4.2-5.4 Compreh ensive Internal Medicine Work Phone: Comment on above: At [facility] Outpatient [facility], [place] Medical Oncologypatients receive CBC w/auto Differential ONLY. Physicianwill place an order for a manual differential or Pathologistreview at his discretion. [facility]. [address] [place] [address] [address] THREAD MILLING MACHINE SET UP OPERATOR: MAGNOLIA HOLLY DO PH:[phone]-Titus Medical Center [address] [place], [place], [phone] WBC #/vol (Bld) 4.5 10*3/uL Normal 4.4-11.0 Comprehe nsive Internal Medicine Work Phone: Comment on above: At [facility] Outpatient Ce [facility] Medical Oncologypatients receive CBC w/auto Differential ONLY. Physicianwill place an order for a manual differential or Pathologistreview at his discretion. [facility]. [address] [place] [address] [address] THREAD MILLING MACHINE SET UP OPERATOR: MAGNOLIA HOLLY DO PH:[phone]-Titus Medical Center [address] [place], [address] Carcinoembryonic AntigenOrde red By: Warehouse Trainer on 08-31-2015 Carcinoembryonic Ag mass conc 1.2 ng/mL Normal 0.0-4.7 Comprehensive Internal Medicine Work Phone: Comment on above: Edy ECLIA methodol ogy Nonsmokers <3.9 Smokers <5.6 ADD ON USE 0107:EP17 [facility] (refer to report for specific site)refer to report for address and phone number Comprehensive Metabolic Prof ilOrdered By: Warehouse Trainer on 08-31-2015 Comprehensive metabolic 2000 panel 26.0 mmol/L Normal 21.0-32.0 Comprehensi ve Internal Medicine Work Phone: Comment on above: Serial Specimen #1, #2 or #3? [address] [place] [address] [place], [address] Comprehensive metabolic 2000 panel 1.3 {RATIO} Normal 0.9-2.4 Comprehensi ve Internal Medicine Work Phone: Comment on above: Serial Specimen #1, #2 or #3? [address] [place] [address] [place], [address] Comprehensive metabolic 2000 panel 13 mg/dL Normal 7-18 Comprehensi ve Internal Medicine Work Phone: Comment on above: Serial Specimen #1, #2 or #3? [address] [place] [address] [place], [address] Comprehensive metabolic 2000 panel 1.05 mg/dL Normal 0.55-1.20 Comprehensi ve Internal Medicine Work Phone: Comment on above: The validity of the calculated GFR AND GFRAA in patients over70 years has not been determined. Clinical correlation isessential. Serial Specimen #1, #2 or #3? [address] [place] [address] [place], [address] Comprehensive metabolic 2000 panel 56 mL/min Abnormal Comprehensi ve Internal Medicine Work Phone: Comment on above: Non- GFR Calc Serial Specimen #1, #2 or #3? [address] [place] [address] [place], [address] Comprehensive metabolic 2000 panel 143 mmol/L Normal 136-145 Comprehensi ve Internal Medicine Work Phone: Comment on above: Serial Specimen #1, #2 or #3? [address] [place] [address] [place], [address] Comprehensive metabolic 2000 panel 4.1 mmol/L Normal 3.5-5.1 Comprehensi ve Internal Medicine Work Phone: Comment on above: Serial Specimen #1, #2 or #3? [address] [place] [address] [place], [address] Comprehensive metabolic 2000 panel 108 mmol/L Abnormal 98-107 Comprehensi ve Internal Medicine Work Phone: Comment on above: Serial Specimen #1, #2 or #3? [address] [place] [address] [place], [address] Comprehensive metabolic 2000 panel 3.8 g/dL Normal 3.4-5.0 Comprehensi ve Internal Medicine Work Phone: Comment on above: Serial Specimen #1, #2 or #3? [address] [place] [address] [place], [address] Comprehensive metabolic 2000 panel 3.0 g/dL Normal 2.3-3.5 Comprehensi ve Internal Medicine Work Phone: Comment on above: Serial Specimen #1, #2 or #3? [address] [place] [address] [place], [place], [id number] Comprehensive metabolic 2000 panel 106 mg/dL Normal 70-110 Comprehensi ve Internal Medicine Work Phone: Comment on above: Serial Specimen #1, #2 or #3? [address] [place] [address] [place], [place], [id number] Comprehensive metabolic 2000 panel 8.9 mg/dL Normal 8.5-10.1 Comprehensi ve Internal Medicine Work Phone: Comment on above: Serial Specimen #1, #2 or #3? [address] [place] [address] [place], [place], [id number] Comprehensive metabolic 2000 panel 20 U/L Normal 15-37 Comprehensi ve Internal Medicine Work Phone: Comment on above: Serial Specimen #1, #2 or #3? [address] [place] [address] [place], [place], [address] Comprehensive metabolic 2000 panel 30 U/L Normal 12-78 Comprehensi ve Internal Medicine Work Phone: Comment on above: Serial Specimen #1, #2 or #3? [address] [place] [address] [place], [place], [address] Comprehensive metabolic 2000 panel 79 U/L Normal 50-136 Comprehensi ve Internal Medicine Work Phone: Comment on above: Serial Specimen #1, #2 or #3? [address] [place] [address] [place], [place], [address] Comprehensive metabolic 2000 panel 6.8 g/dL Normal 6.4-8.2 Comprehensi ve Internal Medicine Work Phone: Comment on above: Serial Specimen #1, #2 or #3? [address] [place] [address] [place], [place], [address] Comprehensive metabolic 2000 panel 68 mL/min Normal Comprehensi ve Internal Medicine Work Phone: Comment on above: GFR Calc Serial Specimen #1, #2 or #3? [address] [place] [address] [place], [address] Comprehensive metabolic 2000 panel 12.4 {RATIO} Normal 10-20 Comprehensi ve Internal Medicine Work Phone: Comment on above: Serial Specimen #1, #2 or #3? [address] [place] [address] [place], [address] Comprehensive metabolic 2000 panel 9 1 Normal 5-15 Comprehensi ve Internal Medicine Work Phone: Comment on above: Serial Specimen #1, #2 or #3? [address] [place] [address] [place], [address] Comprehensive metabolic 2000 panel 0.30 mg/dL Normal 0.20-1.[address] [facility] Internal Medicine Work Phone: Comment on above: Serial Specimen #1, #2 or #3? [address] [place] [address] [place], [address] LDHOrdered By: System Manage r on 08-31-2015 LDH enzyme act/vol 175 U/L Normal 84-246 [facility] Internal Medicine Work Phone: Comment on above: Serial Specimen #1, #2 or #3? [address] [place] [address] [place], [address] Uric AcidOrdered By: Warehouse Trainer on 08-31-2015 Urate mass conc 3.0 mg/dL Normal 2.6-6.0 [facility] Internal Medicine Work Phone: Comment on above: Serial Specimen #1, #2 or #3? [address] [place] [address] [place], [address] URINE SUNNY CULTURE-KAYDEN COL C OUNT ([id number])Ordered By: Warehouse Trainer on 07-18-2015 Bacteria identified Cx Nom (U) Final report Normal Comprehensive Internal Medicine Work Phone: Comment on above: PATIENT NOT FASTINGP ERFORMED BY: [employer] Ncnvbm7725 Schwartz Breaktime StudiosNovant Health Matthews [facility] Center [id number] Information: [facility] [id number] Bacteria identified Cx Nom (U) MUG Normal Comprehensive Internal Medicine Work Phone: Comment on above: Mixed urogenital annie ra10,000-25,000 colony forming units per mL PATIENT NOT FASTINGP ERFORMED BY: [facility] Bgqhjt4991 RoomRevealNovant Health Matthews Medical Center [id number] Information: SRC:[facility] [id number] Urinalysis, Office ([id number])Or dered By: Nancy Morris on 07-18-2015 Bilirubin [...] Medicine Work Phone: CBC W/Diff, AutomatedOrdered By: Warehouse Trainer on 07-03-2015 CBC W/Diff, Automated 11.0 % Abnormal 0-10 Com prehensive Internal Medicine Work Phone: Comment on above: [facility] [address] [place], [place], [id number] ; non-emergent till apt CBC W/Diff, Automated 3.7 K/mm3 Abnormal 4.4-11.0 [facility] prehensive Internal Medicine Work Phone: Comment on above: [facility] [address] [place], [place], [id number] ; non-emergent till apt CBC W/Diff, Automated 4.19 {M/mm3} Abnormal 4.2-5.4 [facility] Work Phone: Comment on above: [facility] [address] [place], [address] ; non-emergent till apt CBC W/Diff, Automated 13.0 g/dL Normal 12.0-15.0 [facility] prehensive Internal Medicine Work Phone: Comment on above: [facility] [address] [place], [place], [address] ; non-emergent till apt CBC W/Diff, Automated 40.8 % Normal 37-47 [facility] prehensive Internal Medicine Work Phone: Comment on above: [facility] [address] [place], [place], [phone] ; non-emergent till apt CBC W/Diff, Automated 97.4 fL Normal 81-99 [facility] prehensive Internal Medicine Work Phone: Comment on above: [facility] [address] [place], [place], [address] ; non-emergent till apt CBC W/Diff, Automated 31.0 pg Normal 27.0-32.0 [facility] prehensive Internal Medicine Work Phone: Comment on above: [facility] [address] [place], [place], [address] ; non-emergent till apt CBC W/Diff, Automated 13.1 % Normal 11.6-14.6 [facility] prehensive Internal Medicine Work Phone: Comment on above: [facility] [address] [place], [place], [address] ; non-emergent till apt CBC W/Diff, Automated 46.7 fL Abnormal 35.1-43.9 [facility] prehensive Internal Medicine Work Phone: Comment on above: [facility] [address] [place], [place], [address] ; non-emergent till apt CBC W/Diff, Automated 300 K/mm3 Normal 150-450 [facility] prehensive Internal Medicine Work Phone: Comment on above: [facility] [address] [place], [address] ; non-emergent till apt CBC W/Diff, Automated 10.3 fL Normal 6.2-12.0 [facility] prehensive Internal Medicine Work Phone: Comment on above: [facility] [address] [place], [place], [id number] ; non-emergent till apt CBC W/Diff, Automated 52.4 % Normal 47-70 [facility] prehensive Internal Medicine Work Phone: Comment on above: [facility] [address] [place], [address] ; non-emergent till apt CBC W/Diff, Automated 32.8 % Normal 19-41 [facility] prehensive Internal Medicine Work Phone: Comment on above: [facility] [address] [place], [address] ; non-emergent till apt CBC W/Diff, Automated 0.300 % Normal 0.0-0.9 [facility] prehensive Internal Medicine Work Phone: Comment on above: IG% - Immature Granu locytes (promyelocytes, myelocytes andmetamyelocytes) > 1% indicates that a LEFT SHIFT is Present. [facility] [address] [place], [place], [id number] ; non-emergent till apt CBC W/Diff, Automated 3.0 % Normal 0-5 [facility] prehensive Internal Medicine Work Phone: Comment on above: [facility] [address] [place], [place], [phone] ; non-emergent till apt CBC W/Diff, Automated 0.5 % Normal 0-1 [facility] prehensive Internal Medicine Work Phone: Comment on above: [facility] [address] [place], [place], [address] ; non-emergent till apt CBC W/Diff, Automated 2.0 {X10_3/uL} Normal 2.0-7.7 Comprehensive Internal Medicine Work Phone: Comment on above: [facility] [address] [place], [place], [id number] ; non-emergent till apt CBC W/Diff, Automated 1.22 {X10_3/ul} Normal 0.83-4.51 Comprehensive Internal Medicine Work Phone: Comment on above: [facility] [address] [place], [address] ; non-emergent till apt CBC W/Diff, Automated 31.9 {g/gl} Abnormal 32-36 [facility]eren[facility] Internal Medicine Work Phone: Comment on above: [facility] [address] [place], [address] ; non-emergent till apt Comprehensive Metabolic Prof ilOrdered By: Warehouse Trainer on 07-03-2015 Comprehensive metabolic 2000 panel 1.03 mg/dL Normal 0.55-1.20 Comprehensi ve Internal Medicine Work Phone: Comment on above: The validity of the calculated GFR AND GFRAA in patients over70 years has not been determined. Clinical correlation isessential. [facility] [address] [place], [place], [id number] Comprehensive metabolic 2000 panel 12.6 {RATIO} Normal 10-20 Comprehensi ve Internal Medicine Work Phone: Comment on above: [facility] [address] [place], [address] Comprehensive metabolic 2000 panel 25 U/L Normal 15-37 Comprehensi ve Internal Medicine Work Phone: Comment on above: [facility] [address] [place], [place], [address]99[address] Comprehensive metabolic 2000 panel 7.2 g/dL Normal 6.4-8.2 Comprehensi ve Internal Medicine Work Phone: Comment on above: [facility] spital [address] [place], [place], [id number] Comprehensive metabolic 2000 panel 57 mL/min Abnormal Comprehensi ve Internal Medicine Work Phone: Comment on above: Non- GFR Calc [facility] [address] [place], [place], [phone] Comprehensive metabolic 2000 panel 9.2 mg/dL Normal 8.5-10.1 Comprehensi ve Internal Medicine Work Phone: Comment on above: [facility] [address] [place], [place], [address] Comprehensive metabolic 2000 panel 6 1 Normal 5-15 Comprehensi ve Internal Medicine Work Phone: Comment on above: [facility] [address] [place], [place], [address] Comprehensive metabolic 2000 panel 1.2 {RATIO} Normal 0.9-2.4 Comprehensi ve Internal Medicine Work Phone: Comment on above: [facility] [address] [place], [place], [address] Comprehensive metabolic 2000 panel 86 mg/dL Normal 70-110 Comprehensi ve Internal Medicine Work Phone: Comment on above: [facility] spital [address] [place], [place], [address] Comprehensive metabolic 2000 panel 0.40 mg/dL Normal 0.20-1.00 Comprehensi ve Internal Medicine Work Phone: Comment on above: [facility] [address] [place], [place], [address] Comprehensive metabolic 2000 panel 4.0 g/dL Normal 3.4-5.0 Comprehensi ve Internal Medicine Work Phone: Comment on above: [facility] [address] [place], [place], [address] Comprehensive metabolic 2000 panel 13 mg/dL Normal 7-18 Comprehensi ve Internal Medicine Work Phone: Comment on above: [facility] [address] [place], [place], [phone] Comprehensive metabolic 2000 panel 3.2 g/dL Normal 2.3-3.5 Comprehensi ve Internal Medicine Work Phone: Comment on above: [facility] [address] [place], [place], [address] Comprehensive metabolic 2000 panel 31.0 mmol/L Normal 21.0-32.0 Comprehensi ve Internal Medicine Work Phone: Comment on above: [facility] [address] [place], [place], [address] Comprehensive metabolic 2000 panel 104 mmol/L Normal 98-107 Comprehensi ve Internal Medicine Work Phone: Comment on above: [facility] [address] [place], [place], [address] Comprehensive metabolic 2000 panel 30 U/L Normal 12-78 Comprehensi ve Internal Medicine Work Phone: Comment on above: [facility] [address] [place], [place], [address] Comprehensive metabolic 2000 panel 4.5 mmol/L Normal 3.5-5.1 Comprehensi ve Internal Medicine Work Phone: Comment on above: [facility] [address] [place], [place], [address] Comprehensive metabolic 2000 panel 82 U/L Normal 50-136 Comprehensi ve Internal Medicine Work Phone: Comment on above: [facility] [address] [place], [address] Comprehensive metabolic 2000 panel 141 mmol/L Normal 136-145 Comprehensi ve Internal Medicine Work Phone: Comment on above: [facility] [address] [place], [address] Comprehensive metabolic 2000 panel 69 mL/min Normal Comprehensi ve Internal Medicine Work Phone: Comment on above: GFR Calc [facility] [address] [place], [place], [phone] Lipid ProfileOrdered By: Elif tem Pepper Cutter on 07-03-2015 Lipid Profile 247 mg/dL Abnormal Comprehensi ve Internal Medicine Work Phone: Comment on above: <200 mg/dL Desirable 200-240 mg/dL Borderline >240 mg/dL High Risk [facility] [address] [place], [place], [address] Lipid Profile 195 mg/dL Normal Comprehensi ve Internal Medicine Work Phone: Comment on above: Serum Triglycerides Reference Interval Normal <150 mg/dL Borderline high 150 - 199 mg/dL High 200 - 499 mg/dL Very High > or = 500 mg/dL [facility] [address] [place], [address] Lipid Profile 69 mg/dL Normal Comprehensi ve Internal Medicine Work Phone: Comment on above: Reference Range HDL <40 mg/dL Low HDL Cholesterol HDL >or= 60 mg/dL High HDL Cholesterol [facility] [address] [place], [place], [phone] Lipid Profile 139 mg/dL Abnormal 0-130 Comprehensi ve Internal Medicine Work Phone: Comment on above: [facility] [address] [place], [place], [address] Lipid Profile 39 mg/dL Normal 5-40 Comprehensi ve Internal Medicine Work Phone: Comment on above: [facility] [address] [place], [place], [address] Urinalysis, CompleteOrdered By: Warehouse Trainer on 07-03-2015 Protein mass conc (U) Negative Normal Com prehensive Internal Medicine Work Phone: Comment on above: How was Urine Obtain ed? Urine, [facility] [address] [place], [address] RBC #/vol (U) 0 SEEN Normal 0-5 Comprehensi ve Internal Medicine Work Phone: Comment on above: How was Urine Obtain ed? [facility], [facility] [address] [place], [place], [address] Urinalysis complete panel - Urine 1.010 1 Normal 1.002-1.03 0 Comprehensive Internal Medicine Work Phone: Comment on above: How was Urine Obtain ed? [facility] [address] [place], [address] Urinalysis complete panel - Urine 8.0 1 Normal 5.0 - 8.0 Comprehensive Internal Medicine Work Phone: Comment on above: How was Urine Obtain ed? Urine, [facility] [address] [place], [address] Urinalysis complete panel - Urine Normal Normal Comprehensive Internal Medicine Work Phone: Comment on above: How was Urine Obtain ed? Urine, [facility] [address] [place], [address] Urinalysis complete panel - Urine Negative Normal Comprehensive Internal Medicine Work Phone: Comment on above: How was Urine Obtain ed? Urine, [facility] [address] [place], [address] Urinalysis complete panel - Urine 100 /ul Abnormal Comprehensive Internal Medicine Work Phone: Comment on above: How was Urine Obtain ed? Urine, [facility] N[address] [place], [phone] Urinalysis complete panel - Urine 0-5 SEEN Normal 5-10 Comprehensive Internal Medicine Work Phone: Comment on above: How was Urine Obtain ed? Urine, [facility] [address] [place], [address] Urinalysis complete panel - Urine 0 SEEN Normal Comprehensive Internal Medicine Work Phone: Comment on above: How was Urine Obtain ed? Urine, [facility] [address] [place], [address] Urinalysis complete panel - Urine Yellow Normal Comprehensive Internal Medicine Work Phone: Comment on above: How was Urine Obtain ed? Urine, [facility] Z[address] [place], [phone] Urinalysis complete panel - Urine Clear Normal Comprehensive Internal Medicine Work Phone: Comment on above: How was Urine Obtain ed? Urine, [facility] [address] [place], [phone] Vitamin D,25 HydroxyOrdered By: Warehouse Trainer on 07-03-2015 Vitamin D,25 Hydroxy 40.2 ng/mL Normal Comp rehensive Internal Medicine Work Phone: Comment on above: Vitamin D 25(OH) Sta tus Range Deficiency <20 ng/mL (50nmol/L) Insuffciency 20 - 30 ng/mL (50 - 75 nmol/L) Sufficiency 30 - 100 ng/mL (75 - 250 nmol/L) Toxicity >100 ng/mL (>250 nmol/L) [facility] [address] [place], [phone] IGP, Aptima HPV, rfx 16/18,4 5Ordered By: Warehouse Trainer on 05-12-2015 HPV 16+18+31+33+35+39+45+ 51+52+56+58+59+66+68 DNA Probe+sig amp Ql (Cvx) Negative Normal Comprehensive Internal Medicine Work Phone: Comment on above: This test detects fo urteen high-risk HPV types (16/18/31/33/35/39/45/51/52/56/58/59/66/68) without differentiation. Source.............C ervical;EndocervicalNo. of containers..01 CYTYC Thin Prep VialPATIENT NOT FASTINGPERFORMED BY: =G [facility]Atl[facility] [employer] Svaxidahed764 [employer] PlazaCharleston [place] [id number] BY: [employer] Lab[employer] Design120 [employer] PlazaService [place] [id number] Microscopic observation Other stain Nom (Unsp spec) . Normal Comprehens cheri Internal Medicine Work Phone: Comment on above: Source.............C ervical;EndocervicalNo. of containers..01 CYTYC Thin Prep VialPATIENT NOT FASTINGPERFORMED BY: =G LabKarmYog [employer]iarp Cetlzxzrop488 [employer] PlazaService [place] [id number] BY: Wandrian120 [employer] PlazaService [place] [id number] Pathology report final diagnosis Narrative [facility] Normal Comprehensive Internal Medicine Work Phone: Comment on above: NEGATIVE FOR INTRAEP ITHELIAL LESION AND MALIGNANCY.Satisfactory for evaluation.V76.2 ; Screening for malignant neoplasm of the cervixKristi Guerrero Post Commander (ASCP) Source.............C ervical;EndocervicalNo. of containers..01 CYTYC Thin Prep VialPATIENT NOT FASTINGPERFORMED BY: =G [facility] Dasxdstffq101 [place] PlazaCharl[place] [id number] BY: [employer] Design120 [facility] [id number] IGP, Aptima HPV, rfx 16/18,45 PAPSMR Normal [...] Thin Prep VialPATIENT NOT FASTINGPERFORMED BY: =G LabCrescendo BioscienceRevxvdwxeh874 [facility] [id number] BY: Chi[address]gel[address] [place] [address] [id number] Thin Prep Pap ([id number])Ordered By: Warehouse Trainer on 05-12-2015 Thin Prep Pap ([id number]) 30-65 Normal [facility] prehensive Internal Medicine Work Phone: Comment on above: Source.............C ervical;EndocervicalNo. of containers..01 CYTYC Thin Prep VialPATIENT NOT FASTINGPERFORMED BY: =G [facility] Tmmleworip236 [facility] [id number] BY: Chi[address]gel[address] [place] [address] [id number] Information: [id number] Lipid ProfileOrdered By: Elif tem Pepper Cutter on 03-06-2015 Lipid Profile 91 mg/dL Normal 0-199 Comprehensi ve Internal Medicine Work Phone: Comment on above: Serum Triglycerides Reference Interval Normal <150 mg/dL Borderline high 150 - 199 mg/dL High 200 - 499 mg/dL Very High > or = 500 mg/dL PT ALREADY HAD CMP A ND CBC DONE 7-9 AND DID NOT WANT TODUPLICATE ANY TESTSTest performed at:[facility] [address] [place], [place] [address] ; non-emergent till apt Lipid Profile 18 mg/dL Normal 5-40 Comprehensi ve Internal Medicine Work Phone: Comment on above: PT ALREADY HAD CMP A ND CBC DONE 7-9 AND DID NOT WANT TODUPLICATE ANY TESTSTest performed at:[facility] [address] [place], [place] [address] ; non-emergent till apt Lipid Profile 137 mg/dL Abnormal 0-130 Comprehensi ve Internal Medicine Work Phone: Comment on above: PT ALREADY HAD CMP A ND CBC DONE 7-9 AND DID NOT WANT TODUPLICATE ANY TESTSTest performed at:[facility] [address] [place], [place] [address] ; non-emergent till apt Lipid Profile 72 mg/dL Normal Comprehensi ve Internal Medicine Work Phone: Comment on above: Reference Range HDL <40 mg/dL Low HDL Cholesterol HDL >or= 60 mg/dL High HDL Cholesterol PT ALREADY HAD CMP A ND CBC DONE 7-9 AND DID NOT WANT TODUPLICATE ANY TESTSTest performed at:[facility] [address] [place], [place] [address] ; non-emergent till apt Lipid Profile 227 mg/dL Abnormal Comprehensi ve Internal Medicine Work Phone: Comment on above: <200 mg/dL Desirable 200-240 mg/dL Borderline >240 mg/dL High Risk PT ALREADY HAD CMP A ND CBC DONE 7-9 AND DID NOT WANT TODUPLICATE ANY TESTSTest performed at:[facility] [address] [place] [address] ; non-emergent till apt Thyroid Stim Hormone (TSH)Or dered By: Warehouse Trainer on 03-06-2015 Thyrotropin Qn 1.33 {uIU/mL} Normal 0.358-3.74 Compreh ensive Internal Medicine Work Phone: Comment on above: PT ALREADY HAD CMP A ND CBC DONE 7-9 AND DID NOT WANT TODUPLICATE ANY TESTSTest performed at:[facility] [address] [place], [place] [address] Vitamin D,25 HydroxyOrdered By: Warehouse Trainer on 03-06-2015 Vitamin D,25 Hydroxy 36.4 ng/mL Normal Comp rehensive Internal Medicine Work Phone: Comment on above: Vitamin D 25(OH) Sta tus Range Deficiency <20 ng/mL (50nmol/L) Insuffciency 20 - 30 ng/mL (50 - 75 nmol/L) Sufficiency 30 - 100 ng/mL (75 - 250 nmol/L) Toxicity >100 ng/mL (>250 nmol/L) Test performed at:[facility] [address] [place], [place] [address] CBC W/Diff, Auto - EPLAB Onl yOrdered By: Warehouse Trainer on 03-02-2015 Basophils/100 WBC (Bld) 1.3 % Abnormal 0-1 Comprehensive Internal Medicine Work Phone: Comment on above: At [facility] Outpatient Ce [facility] Medical Oncologypatients receive CBC w/auto Differential ONLY. Physicianwill place an order for a manual differential or Pathologistreview at his discretion. [facility]. [address] [place] [address] [address] THREAD MILLING MACHINE SET UP OPERATOR: MAGNOLIA HOLLY DO PH:[phone] performed at:[facility] [address] [place], [place] [address] CBC W Auto Differential panel - Blood 2.0 {X10_3/uL} Normal 2.0-7.7 Comprehensive Internal Medicine Work Phone: Comment on above: At [facility] Outpatient Ce [facility] Medical Oncologypatients receive CBC w/auto Differential ONLY. Physicianwill place an order for a manual differential or Pathologistreview at his discretion. [facility]. [address] [place] [address] THREAD MILLING MACHINE SET UP OPERATOR: MAGNOLIA HOLLY DO PH:[phone] performed at:[facility] [address] [place], [place] [phone] Eosinophils/100 WBC (Bld) 3.5 % Normal 0-5 [facility] Work Phone: Comment on above: At [facility] Outpatient [facility] Medical Oncologypatients receive CBC w/auto Differential ONLY. Physicianwill place an order for a manual differential or Pathologistreview at his discretion. [facility]. [address] [place] [address] [address] THREAD MILLING MACHINE SET UP OPERATOR: MAGNOLIA HOLLY DO PH:[phone] performed at:[facility] [address] [place] [address] Erythrocyte distribution width Ratio (RBC) 13.3 % Normal 11.6-14.6 [facility] Work Phone: Comment on above: At [facility], [place] Medical Oncologypatients receive CBC w/auto Differential ONLY. Physicianwill place an order for a manual differential or Pathologistreview at his discretion. [facility]. [address] [place] [address] [address] THREAD MILLING MACHINE SET UP OPERATOR: MAGNOLIA HOLLY DO PH:[phone] performed at:[facility] [address] [place] [address] Hematocrit Volume Fraction (Bld) 41.8 % Normal 37-47 [facility] Work Phone: Comment on above: At [facility], [place] Medical Oncologypatients receive CBC w/auto Differential ONLY. Physicianwill place an order for a manual differential or Pathologistreview at his discretion. [facility]. [address] [place] [address] [address] THREAD MILLING MACHINE SET UP OPERATOR: MAGNOLIA HOLLY DO PH:[phone] performed at:[facility] [address] [place] [address] Hemoglobin mass conc (Bld) 14.2 g/dL Normal 12.0-15.0 [facility] Work Phone: Comment on above: At [facility] [place] Medical Oncologypatients receive CBC w/auto Differential ONLY. Physicianwill place an order for a manual differential or Pathologistreview at his discretion. [facility]. [address] [place] [address] [address] THREAD MILLING MACHINE SET UP OPERATOR: MAGNOLIA HOLLY DO PH:[phone] performed at:[facility] [address] [place] [address] Lymphocytes/100 WBC (Bld) 29.2 % Normal 19-41 [facility] Work Phone: Comment on above: At [facility] Outpatient [facility], [place] Medical Oncologypatients receive CBC w/auto Differential ONLY. Physicianwill place an order for a manual differential or Pathologistreview at his discretion. [facility]. [address] [place] [address] [address] THREAD MILLING MACHINE SET UP OPERATOR: MAGNOLIA HOLLY DO PH:[phone] performed at:[facility] [address] [place] [address] MCH Entitic mass (RBC) 31.7 pg Normal 27.0-32.0 [facility] Work Phone: Comment on above: At [facility] Outpatient [facility], [place] Medical Oncologypatients receive CBC w/auto Differential ONLY. Physicianwill place an order for a manual differential or Pathologistreview at his discretion. [facility]. [address] [place] [address] [address] [address] THREAD MILLING MACHINE SET UP OPERATOR: MAGNOLIA HOLLY DO PH:[phone] performed at:[facility] [address] [place] [address] MCHC mass conc (RBC) 33.9 g/dL Normal 32-36 [facility] Internal Medicine Work Phone: Comment on above: At [facility] Outpatient [facility], [place] Medical Oncologypatients receive CBC w/auto Differential ONLY. Physicianwill place an order for a manual differential or Pathologistreview at his discretion. [facility]. [address] [place] [address] [address] THREAD MILLING MACHINE SET UP OPERATOR: MAGNOLIA HOLLY DO PH:[phone] performed at:[facility] [address] [place] [address] MCV Entitic volume (RBC) 93.5 fL Normal 81-99 [facility] Work Phone: Comment on above: At [facility] Outpatient [facility], [place] Medical Oncologypatients receive CBC w/auto Differential ONLY. Physicianwill place an order for a manual differential or Pathologistreview at his discretion. [facility]. [address] [place] [address] [address] THREAD MILLING MACHINE SET UP OPERATOR: MAGNOLIA HOLLY DO PH:[phone] performed at:[facility] [address] [place] [address] Monocytes/100 WBC (Bld) 10.7 % Abnormal 0-10 [facility] Work Phone: Comment on above: At [facility] Outpatient [facility], [place] Medical Oncologypatients receive CBC w/auto Differential ONLY. Physicianwill place an order for a manual differential or Pathologistreview at his discretion. [facility]. [address] [place] [address] [address] THREAD MILLING MACHINE SET UP OPERATOR: MAGNOLIA HOLLY DO PH:[phone] performed at:[facility] [address] [place] [address] Neutrophils/100 WBC (Bld) 55.3 % Normal 47-70 [facility] Work Phone: Comment on above: At [facility] Outpatient [facility], [place] Medical Oncologypatients receive CBC w/auto Differential ONLY. Physicianwill place an order for a manual differential or Pathologistreview at his discretion. [facility]. [address] [place] [address] [address] THREAD MILLING MACHINE SET UP OPERATOR: MAGNOLIA HOLLY DO PH:[phone] performed at:[facility] [address] [place] [address] Platelet mean volume Entitic volume (Bld) 7.0 fL Normal 6.2-12.0 Comprehensi Internal Medicine Work Phone: Comment on above: At [facility] Outpatient [facility], [place] Medical Oncologypatients receive CBC w/auto Differential ONLY. Physicianwill place an order for a manual differential or Pathologistreview at his discretion. [facility]. [facility] [place] [address] [address] THREAD MILLING MACHINE SET UP OPERATOR: MAGNOLIA HOLLY DO PH:[phone] performed at:[facility] [address] [place] [address] Platelets #/vol (Bld) 236 10*3/uL Normal 150-450 Co mprehensive Internal Medicine Work Phone: Comment on above: At [facility] Outpatient [facility] Medical Oncologypatients receive CBC w/auto Differential ONLY. Physicianwill place an order for a manual differential or Pathologistreview at his discretion. [facility]. [address] [place] [address] [place] [address] THREAD MILLING MACHINE SET UP OPERATOR: MAGNOLIA HOLLY DO PH:[phone] performed at:[facility] [address] [place] [address] RBC #/vol (Bld) 4.47 {M/mm3} Normal 4.2-5.4 Compreh ensive Internal Medicine Work Phone: Comment on above: At [facility] Outpatient [facility], [place] Medical Oncologypatients receive CBC w/auto Differential ONLY. Physicianwill place an order for a manual differential or Pathologistreview at his discretion. [facility]. [facility] [place] [address] [address] THREAD MILLING MACHINE SET UP OPERATOR: MAGNOLIA HOLLY DO PH:[phone] performed at:[facility] [address] [place] [address] WBC #/vol (Bld) 3.6 10*3/uL Abnormal 4.4-11.0 Comprehe nsive Internal Medicine Work Phone: Comment on above: At [facility] Outpatient [facility] Medical Oncologypatients receive CBC w/auto Differential ONLY. Physicianwill place an order for a manual differential or Pathologistreview at his discretion. [facility]. [address] [place] [address] [address] [address] THREAD MILLING MACHINE SET UP OPERATOR: MAGNOLIA HOLLY DO PH:[phone] performed at:[facility] [address] [place] [address] Comprehensive Metabolic Prof ilOrdered By: Warehouse Trainer on 03-02-2015 Comprehensive metabolic 2000 panel 15 mg/dL Normal 7-18 Comprehensi ve Internal Medicine Work Phone: Comment on above: Test performed at:[facility] [address] [place] [address] Comprehensive metabolic 2000 panel 81 U/L Normal 50-136 Comprehensi ve Internal Medicine Work Phone: Comment on above: Test performed at:[facility] [address] [place] [address] Comprehensive metabolic 2000 panel 3.0 g/dL Normal 2.7-4.2 Comprehensi ve Internal Medicine Work Phone: Comment on above: Test performed at:[facility] [address] [place] [address] Comprehensive metabolic 2000 panel 141 mmol/L Normal 136-145 Comprehensi ve Internal Medicine Work Phone: Comment on above: Test performed at:[facility] [address] [place] [address] Comprehensive metabolic 2000 panel 1.1 mg/dL Abnormal 0.6-1.0 Comprehensi ve Internal Medicine Work Phone: Comment on above: Test performed at:[facility] [address] [place] [address] Comprehensive metabolic 2000 panel 32 U/L Normal 12-78 Comprehensi ve Internal Medicine Work Phone: Comment on above: Test performed at:[facility] [address] [place] [address] Comprehensive metabolic 2000 panel 3.7 g/dL Normal 3.4-5.0 Comprehensi ve Internal Medicine Work Phone: Comment on above: Test performed at:[facility] [address] [place] [address] Comprehensive metabolic 2000 panel 6.7 g/dL Normal 6.4-8.2 Comprehensi ve Internal Medicine Work Phone: Comment on above: Test performed at:[facility] [address] [place] [address] Comprehensive metabolic 2000 panel 4.0 mmol/L Normal 3.5-5.1 Comprehensi ve Internal Medicine Work Phone: Comment on above: Test performed at:[facility] [address] [place] [address] Comprehensive metabolic 2000 panel 107 mmol/L Normal 98-107 Comprehensi ve Internal Medicine Work Phone: Comment on above: Test performed at:[facility] [address] [place] [address] Comprehensive metabolic 2000 panel 13.6 {RATIO} Normal 10-20 Comprehensi ve Internal Medicine Work Phone: Comment on above: Test performed at:[facility] [address] [place] [address] Comprehensive metabolic 2000 panel 64 mL/min Normal Comprehensi ve Internal Medicine Work Phone: Comment on above: Test performed at:[facility] [address] [place] [address] Comprehensive metabolic 2000 panel 91 mg/dL Normal 70-110 Comprehensi ve Internal Medicine Work Phone: Comment on above: Test performed at:[facility] [address] [place] [address] Comprehensive metabolic 2000 panel 53 mL/min Abnormal Comprehensi ve Internal Medicine Work Phone: Comment on above: Test performed at:[facility] [address] [place] [address] Comprehensive metabolic 2000 panel 29 U/L Normal 15-37 Comprehensi ve Internal Medicine Work Phone: Comment on above: Test performed at:[facility] [address] [place] [address] Comprehensive metabolic 2000 panel 9.1 mg/dL Normal 8.5-10.1 Comprehensi ve Internal Medicine Work Phone: Comment on above: Test performed at:[facility] [address] [place] [address] Comprehensive metabolic 2000 panel 1.2 {RATIO} Normal 0.9-2.4 Comprehensi ve Internal Medicine Work Phone: Comment on above: Test performed at:[facility] [address] [place] [address] Comprehensive metabolic 2000 panel 9 1 Normal 5-15 Comprehensi ve Internal Medicine Work Phone: Comment on above: Test performed at:[facility] [address] [place] [place] [address] Comprehensive metabolic 2000 panel 0.30 mg/dL Normal 0.20-1.00 Comprehensi ve Internal Medicine Work Phone: Comment on above: Test performed at:[facility] [address] [place] [address] Comprehensive metabolic 2000 panel 25.0 mmol/L Normal 21.0-32.0 Comprehensi ve Internal Medicine Work Phone: Comment on above: Test performed at:[facility] [address] [place] [address] LDHOrdered By: System Manage r on 03-02-2015 LDH enzyme act/vol 190 U/L Normal 87-241 Compre [facility] Internal Medicine Work Phone: Comment on above: Test performed at:[facility] [address] [place] [address] Uric AcidOrdered By: Warehouse Trainer on 03-02-2015 Urate mass conc 3.2 mg/dL Normal 2.6-6.0 Comprehen sive Internal Medicine Work Phone: Comment on above: Test performed at:[facility] [address] [place], [place] [id number] BUNOrdered By: System Manage r on 11-24-2014 Urea nitrogen mass conc 19 mg/dL Abnormal 7-18 [facility] Work Phone: Comment on above: ADDENDA: other dr or jazmyne Test performed at:[facility] [address] [place], [place] [id number] Serum Creatinine AND GFROrde red By: Warehouse Trainer on 11-24-2014 Serum Creatinine AND GFR 72 mL/min Normal [facility] Work Phone: Comment on above: Test performed at:[facility] [address] [place] [address] Serum Creatinine AND GFR 59 mL/min Abnormal [facility] Work Phone: Comment on above: Test performed at:[facility] [address] [place], [place] [id number] Serum Creatinine AND GFR 1.0 mg/dL Normal 0.6-1.0 [facility] Work Phone: Comment on above: Test performed at:[facility] [address] [place] [address] Rapid Flu (06768 x 2)Ordered By: Zee Valderrama on 11-03-2014 FLUAV Ag IA Ql (Throat) Negative Normal [facility] Work Phone: Rapid Strep Test, Office ([phone])Ordered By: Zee Valderrama on 11-03-2014 S. pyogenes Ag IA Ql (Unsp spec) Negative Normal [facility] Work Phone: CBC W/Diff, AutomatedOrdered By: Warehouse Trainer on 10-31-2014 CBC W/Diff, Automated 97.7 fL Normal 81-99 Com prehensive Internal Medicine Work Phone: Comment on above: Test performed at:[facility] [address] [place], [place] [id number] ; non-emergent till apt this month CBC W/Diff, Automated 10.1 fL Normal 6.2-12.0 [facility] prehensive Internal Medicine Work Phone: Comment on above: Test performed at:[facility] [address] [place] [address] ; non-emergent till apt this month CBC W/Diff, Automated 1.23 {X10_3/ul} Normal 0.83-4.51 [facility] Work Phone: Comment on above: Test performed at:[facility] [address] [place] [address] ; non-emergent till apt this month CBC W/Diff, Automated 1.8 {X10_3/uL} Abnormal 2.0-7.7 [facility] Work Phone: Comment on above: Test performed at:[facility] [address] [place] [address] ; non-emergent till apt this month CBC W/Diff, Automated 50.7 % Normal 47-70 [facility] prehensive Internal Medicine Work Phone: Comment on above: Test performed at:[facility] [address] [place] [address] ; non-emergent till apt this month CBC W/Diff, Automated 0.300 % Normal 0.0-0.9 [facility] prehensive Internal Medicine Work Phone: Comment on above: IG% - Immature Granu locytes (promyelocytes, myelocytes andmetamyelocytes) > 1% indicates that a LEFT SHIFT is Present. Test performed at:[facility] [address] [place] [address] ; non-emergent till apt this month CBC W/Diff, Automated 0.9 % Normal 0-1 [facility] prehensive Internal Medicine Work Phone: Comment on above: Test performed at:[facility] [address] [place], [place] [address] ; non-emergent till apt this month CBC W/Diff, Automated 265 K/mm3 Normal 150-450 [facility] prehensive Internal Medicine Work Phone: Comment on above: Test performed at:[facility] [address] [place] [address] ; non-emergent till apt this month CBC W/Diff, Automated 48.4 fL Abnormal 35.1-43.9 [facility] prehensive Internal Medicine Work Phone: Comment on above: Test performed at:[facility] [address] [place] [address] ; non-emergent till apt this month CBC W/Diff, Automated 13.5 % Normal 11.6-14.6 [facility] prehensive Internal Medicine Work Phone: Comment on above: Test performed at:[facility] [address] [place] [address] ; non-emergent till apt this month CBC W/Diff, Automated 32.4 {g/gl} Normal 32-36 [facility] Work Phone: Comment on above: Test performed at:[facility] [address] [place], [place] [address] ; non-emergent till apt this month CBC W/Diff, Automated 31.7 pg Normal 27.0-32.0 [facility] prehensive Internal Medicine Work Phone: Comment on above: Test performed at:[facility] [address] [place], [place] [address] ; non-emergent till apt this month CBC W/Diff, Automated 38.9 % Normal 37-47 [facility] prehensive Internal Medicine Work Phone: Comment on above: Test performed at:[facility] [address] [place] [address] ; non-emergent till apt this month CBC W/Diff, Automated 12.6 g/dL Normal 12.0-15.0 [facility] prehensive Internal Medicine Work Phone: Comment on above: Test performed at:[facility] [address] [place], [place] [address] ; non-emergent till apt this month CBC W/Diff, Automated 3.98 {M/mm3} Abnormal 4.2-5.4 C omprehensive Internal Medicine Work Phone: Comment on above: Test performed at:[facility] [address] [place], [place] [address] ; non-emergent till apt this month CBC W/Diff, Automated 3.5 K/mm3 Abnormal 4.4-11.0 Com prehensive Internal Medicine Work Phone: Comment on above: Test performed at:[facility] [address] [place] [address] ; non-emergent till apt this month CBC W/Diff, Automated 35.2 % Normal 19-41 Com prehensive Internal Medicine Work Phone: Comment on above: Test performed at:[facility] [address] [place], [place] [address] ; non-emergent till apt this month CBC W/Diff, Automated 3.4 % Normal 0-5 Com prehensive Internal Medicine Work Phone: Comment on above: Test performed at:[facility] [address] [place], [place] [address] ; non-emergent till apt this month CBC W/Diff, Automated 9.5 % Normal 0-10 Com prehensive Internal Medicine Work Phone: Comment on above: Test performed at:[facility] [address] [place], [place] [address] ; non-emergent till apt this month Comprehensive Metabolic Prof ilOrdered By: Warehouse Trainer on 10-31-2014 Comprehensive Metabolic Profil 14 mg/dL Normal 7-18 Comprehensive Internal Medicine Work Phone: Comment on above: Test performed at:[facility] [address] [place] [address] Comprehensive Metabolic Profil 73 mg/dL Normal 70-110 Comprehensive Internal Medicine Work Phone: Comment on above: Test performed at:[facility] [address] [place], [place] [address] Comprehensive Metabolic Profil 3.9 mmol/L Normal 3.5-5.1 Comprehensive Internal Medicine Work Phone: Comment on above: Test performed at:[facility] [address] [place] [address] Comprehensive Metabolic Profil 137 mmol/L Normal 136-145 Comprehensive Internal Medicine Work Phone: Comment on above: Test performed at:[facility] [address] [place], [place] [address] Comprehensive Metabolic Profil 0.40 mg/dL Normal 0.00-4.00 Comprehensive Internal Medicine Work Phone: Comment on above: Test performed at:[facility] [address] [place] [address] Comprehensive Metabolic Profil 30 U/L Normal 12-78 Comprehensive Internal Medicine Work Phone: Comment on above: Test performed at:[facility] [address] [place] [address] Comprehensive Metabolic Profil 59 mL/min Abnormal Comprehensive Internal Medicine Work Phone: Comment on above: Test performed at:[facility] [address] [place] [address] Comprehensive Metabolic Profil 74 U/L Normal 50-136 Comprehensive Internal Medicine Work Phone: Comment on above: Test performed at:[facility] [address] [place] [address] Comprehensive Metabolic Profil 6 1 Normal 5-15 Comprehensive Internal Medicine Work Phone: Comment on above: Test performed at:[facility] [address] [place] [address] Comprehensive Metabolic Profil 102 mmol/L Normal 98-107 Comprehensive Internal Medicine Work Phone: Comment on above: Test performed at:[facility] [address] [place] [address] Comprehensive Metabolic Profil 20 U/L Normal 15-37 Comprehensive Internal Medicine Work Phone: Comment on above: Test performed at:[facility] [address] [place] [address] Comprehensive Metabolic Profil 8.9 mg/dL Normal 8.5-10.1 Comprehensive Internal Medicine Work Phone: Comment on above: Test performed at:[facility] [address] [place], [place] [id number] Comprehensive Metabolic Profil 1.3 {RATIO} Normal 0.9-2.4 Comprehensive Internal Medicine Work Phone: Comment on above: Test performed at:[facility] [address] [place] [address] Comprehensive Metabolic Profil 2.9 g/dL Normal 2.7-4.2 Comprehensive Internal Medicine Work Phone: Comment on above: Test performed at:[facility] [address] [place] [address] Comprehensive Metabolic Profil 6.6 g/dL Normal 6.4-8.2 Comprehensive Internal Medicine Work Phone: Comment on above: Test performed at:[facility] [address] [place] [address] Comprehensive Metabolic Profil 1.0 mg/dL Normal 0.6-1.0 Comprehensive Internal Medicine Work Phone: Comment on above: Test performed at:[facility] [address] [place] [address] Comprehensive Metabolic Profil 3.7 g/dL Normal 3.4-5.0 Comprehensive Internal Medicine Work Phone: Comment on above: Test performed at:[facility] [address] [place] [address] Comprehensive Metabolic Profil 72 mL/min Normal Comprehensive Internal Medicine Work Phone: Comment on above: Test performed at:[facility] [address] [place] [address] Comprehensive Metabolic Profil 14.0 {RATIO} Normal 10-20 Comprehensive Internal Medicine Work Phone: Comment on above: Test performed at:[facility] [address] [place] [address] Comprehensive Metabolic Profil 29.0 mmol/L Normal 21.0-32.0 Comprehensive Internal Medicine Work Phone: Comment on above: Test performed at:[facility] [address] [place] [address] Lipid ProfileOrdered By: Elif tem Pepper Cutter on 10-31-2014 Lipid Profile 23 mg/dL Normal 5-40 Comprehensi ve Internal Medicine Work Phone: Comment on above: Test performed at:[facility] [address] [place] [address] Lipid Profile 159 mg/dL Abnormal 0-130 Comprehensi ve Internal Medicine Work Phone: Comment on above: Test performed at:[facility] [address] [place] [address] Lipid Profile 66 mg/dL Normal Comprehensi ve Internal Medicine Work Phone: Comment on above: Reference Range HDL <40 mg/dL Low HDL Cholesterol HDL >or= 60 mg/dL High HDL Cholesterol Test performed at:[facility] [address] [place] [address] Lipid Profile 248 mg/dL Abnormal Comprehensi ve Internal Medicine Work Phone: Comment on above: <200 mg/dL Desirable 200-240 mg/dL Borderline >240 mg/dL High Risk Test performed at:[facility] [address] [place] [address] Lipid Profile 116 mg/dL Normal 0-199 Comprehensi ve Internal Medicine Work Phone: Comment on above: Serum Triglycerides Reference Interval Normal <150 mg/dL Borderline high 150 - 199 mg/dL High 200 - 499 mg/dL Very High > or = 500 mg/dL Test performed at:[facility] [address] [place], [place] [address] Vitamin D,25 HydroxyOrdered By: Warehouse Trainer on 10-31-2014 Vitamin D,25 Hydroxy 47.5 ng/mL Normal Comp rehensive Internal Medicine Work Phone: Comment on above: Vitamin D 25(OH) Sta tus Range Deficiency <20 ng/mL (50nmol/L) Insuffciency 20 - 30 ng/mL (50 - 75 nmol/L) Sufficiency 30 - 100 ng/mL (75 - 250 nmol/L) Toxicity >100 ng/mL (>250 nmol/L) Test performed at:[facility] [address] [place], [place] [id number] CBCDOrdered By: System Manag er on 07-04-2014 [...] ALP enzyme act/vol 77 U/L Normal 50-136 [facility] Work Phone: ALT enzyme act/vol 60 U/L Normal 12-78 [facility] Internal Medicine Work Phone: AST enzyme act/vol 33 U/L Normal 15-37 [facility] Internal Medicine Work Phone: Bilirubin mass conc [...] Internal Medicine Work Phone: LIPIDOrdered By: System [employer] on 07-04-2014 LIPID 112 mg/dL Normal 0-199 [...] nmol/L)Toxicity >100 ng/mL (>250 nmol/L) C-REACTIVE PROTEIN (72110)Or dered By: Warehouse Trainer on 04-04-2014 CRP mass conc mg/L Normal 0.0-4.9 Comprehensi ve Internal Medicine Work Phone: Comment on above: PATIENT NOT FASTINGP ERFORMED BY: BRE [employer]6370 [facility] [id number] CBC WITH MANUAL DIFF (02194) Ordered By: Warehouse Trainer on 04-04-2014 Basophils #/vol (Bld) 0.0 {x10E3/uL} Normal 0.0-0.2 [facility] Work Phone: Comment on above: PATIENT NOT FASTINGP ERFORMED BY: RefleXion MedicalGood Samaritan [facility] [id number] Information: [id number] Basophils/100 WBC (Bld) 0 % Normal 0-3 [facility] Work Phone: Comment on above: PATIENT NOT FASTINGP ERFORMED BY: ApoCellblin [place] [id number] Information: [id number] Eosinophils #/vol (Bld) 0.1 {x10E3/uL} Normal 0.0-0.4 [facility] Work Phone: Comment on above: PATIENT NOT FASTINGP ERFORMED BY: LabCoSt. Francis Medical CenterNomyzu7009 [facility] [id number] Information: [id number] Eosinophils/100 WBC (Bld) 2 % Normal 0-5 [facility] Work Phone: Comment on above: PATIENT NOT FASTINGP ERFORMED BY: LabCoSt. Francis Medical CenterHzuwxn5203 [facility] [id number] Information: [id number] Erythrocyte distribution width Ratio (RBC) 13.7 % Normal 12.3-15.4 [facility] Work Phone: Comment on above: PATIENT NOT FASTINGP ERFORMED BY: LabCoAnthony [place] 6490170 [facility] [id number] Information: [id number] Hematocrit Volume Fraction (Bld) 40.4 % Normal 34.0-46.6 [facility] Work Phone: Comment on above: PATIENT NOT FASTINGP ERFORMED BY: LabCoSt. Francis Medical CenterTdlzxc4365 [facility] [id number] Information: [id number] Hemoglobin mass conc (Bld) 13.5 g/dL Normal 11.1-15.9 [facility] Work Phone: Comment on above: PATIENT NOT FASTINGP ERFORMED BY: LabCo Usxlpj9299 [facility] [id number] Information: [id number] Immature granulocytes #/vol (Bld) 0.0 {x10E3/uL} Normal 0.0-0.1 [facility] Work Phone: Comment on above: PATIENT NOT FASTINGP ERFORMED BY: CB LabCo Urkqgd3606 [facility] [id number] Information: [id number] Immature granulocytes/100 WBC (Bld) 0 % Normal 0-2 [facility] Work Phone: Comment on above: PATIENT NOT FASTINGP ERFORMED BY: BRE BaxterDaniel V[place] [id number] [facility] [id number] Information: [id number] Lymphocytes #/vol (Bld) 1.6 {x10E3/uL} Normal 0.7-3.1 [facility] Work Phone: Comment on above: PATIENT NOT FASTINGP ERFORMED BY: [address] [id number] Information: [id number] Lymphocytes/100 WBC (Bld) 28 % Normal 14-46 [facility] Work Phone: Comment on above: PATIENT NOT FASTINGP ERFORMED BY: [address] [id number] Information: [id number] MCH Entitic mass (RBC) 31.0 pg Normal 26.6-33.0 [facility] Work Phone: Comment on above: PATIENT NOT FASTINGP ERFORMED BY: [address] [id number] Information: [id number] MCHC mass conc (RBC) 33.4 g/dL Normal 31.5-35.7 [facility] Internal Medicine Work Phone: Comment on above: PATIENT NOT FASTINGP ERFORMED BY: [place] 0518770 [facility] [id number] Information: [id number] MCV Entitic volume (RBC) 93 fL Normal 79-97 [facility] Work Phone: Comment on above: PATIENT NOT FASTINGP ERFORMED BY: [address] [id number] Information: [id number] Monocytes #/vol (Bld) 0.8 {x10E3/uL} Normal 0.1-0.9 [facility] Work Phone: Comment on above: PATIENT NOT FASTINGP ERFORMED BY: BRE Qiuntero6370 [facility] [id number] Information: [id number] Monocytes/100 WBC (Bld) 14 % Abnormal 4-12 [facility] Work Phone: Comment on above: PATIENT NOT FASTINGP ERFORMED BY: BRE LabCoAnthony [place] 6490170 [facility] [id number] Information: [id number] Neutrophils #/vol (Bld) 3.2 {x10E3/uL} Normal 1.4-7.0 [facility] Work Phone: Comment on above: PATIENT NOT FASTINGP ERFORMED BY: [address] [id number] Information: [id number] Neutrophils/100 WBC (Bld) 56 % Normal 40-74 [facility] Work Phone: Comment on above: PATIENT NOT FASTINGP ERFORMED BY: BRE Mata C[address] [id number] Information: [id number] Platelets #/vol (Bld) 305 {x10E3/uL} Normal 150-379 [facility] Work Phone: Comment on above: PATIENT NOT FASTINGP ERFORMED BY: BRE LabUniversity [facility]–West6370 [facility] [id number] Information: [id number] RBC #/vol (Bld) 4.35 {x10E6/uL} Normal 3.77-5.28 [facility] Internal Medicine Work Phone: Comment on above: PATIENT NOT FASTINGP ERFORMED BY: BRE LabUniversity Of Michigan [facility]–West6370 [facility] [id number] Information: [id number],[id number] WBC #/vol (Bld) 5.8 {x10E3/uL} Normal 3.4-10.8 Compr ehensive Internal Medicine Work Phone: Comment on above: PATIENT NOT FASTINGP ERFORMED BY: CB [facility] Xxqboe[address] [facility] [id number] Information: [id number] SED RATE ERYTHROCYTE (47778) Ordered By: Warehouse Trainer on 04-04-2014 ESR Velocity (Bld) 3 mm/h Normal 0-40 Compre hensive Internal Medicine Work Phone: Comment on above: PATIENT NOT FASTINGP ERFORMED BY: CB [facility] Dvrgfp[address] [facility] [place] [id number] URINE SUNNY CULTURE-KAYDEN COL C OUNT (51613)Ordered By: Warehouse Trainer on 04-04-2014 Bacteria identified Cx Nom (U) MUG Normal [facility] Work Phone: Comment on above: Mixed urogenital annie ra1,000 Colonies/mL PATIENT NOT FASTINGP ERFORMED BY: CB [facility] Hetkli86[address] [facility] [id number] Information: SRC:UR O18565 Bacteria identified Cx Nom (U) Final report Normal [facility] Work Phone: Comment on above: PATIENT NOT FASTINGP ERFORMED BY: [facility] Hhznld5219 [facility] [id number] Information: SRC:UR N56798 Urinalysis, Office (29879)Or dered By: Jenn Giron on 04-04-2014 Bilirubin [...] Internal Medicine Work Phone: BUNOrdered By: System Retty r on 03-02-2014 Urea nitrogen mass conc 12 mg/dL Normal 7-18 [facility] Work Phone: CREOrdered By: System Retty r on 03-02-2014 CRE 58 mL/min Abnormal [facility] Work Phone: CRE 1.2 mg/dL Abnormal 0.6-1.0 [facility] Work Phone: CRE 48 mL/min Abnormal [facility] Work Phone: ECBCDOrdered By: System Clemencia zach on 03-02-2014 ECBCD 3.8 % Normal [...] Medicine Work Phone: LIVEROrdered By: System Clemencia zach on 03-02-2014 Albumin mass conc 3.9 g/dL [...] ALP enzyme act/vol 80 U/L Normal 45-117 [facility] Internal Medicine Work Phone: ALT enzyme act/vol 25 U/L Normal 12-78 [facility] Internal Medicine Work Phone: AST enzyme act/vol 23 U/L Normal 15-37 [facility] Internal Medicine Work Phone: Bilirubin mass conc 0.40 mg/dL Normal 0.00-1.00 Compr [facility] Internal Medicine Work Phone: Calcium mass conc 9.3 mg/dL Normal 8.5-10.1 Compreh ensive Internal Medicine Work Phone: Chloride molar conc 104 mmol/L Normal 98-107 Compr [facility] Internal Medicine Work Phone: CO2 molar conc 30.0 mmol/L Normal 21.0-32.0 Comprehen [facility] Internal Medicine Work Phone: Urea nitrogen mass conc 13 mg/dL Normal 7-18 [facility] [...] ALP enzyme act/vol 73 U/L Normal 50-136 [facility] Internal Medicine Work Phone: ALT enzyme act/vol 24 U/L Normal 12-78 [facility] Internal Medicine Work Phone: AST enzyme act/vol 19 U/L Normal 15-37 [facility] Internal Medicine Work Phone: Bilirubin mass conc 0.40 mg/dL Normal 0.00-1.00 Compr [facility] Internal Medicine Work Phone: Calcium mass conc 8.8 mg/dL Normal 8.5-10.1 Compreh [facility] Internal Medicine Work Phone: Chloride molar conc 106 mmol/L Normal 98-107 Compr [facility] Internal Medicine Work Phone: CO2 molar conc 28.0 mmol/L Normal 21.0-32.0 Comprehen [facility] Internal Medicine Work Phone: Urea [...] enzyme act/vol 80 U/L Normal 50-136 Compre hensive Internal Medicine Work Phone: ALT enzyme act/vol 30 U/L Normal 12-78 [facility]pre [facility] Work Phone: AST enzyme [...] Internal Medicine Work Phone: LIPIDOrdered By: Bharath serrano on 06-25-2013 LIPID 196 mg/dL Normal Comprehensive [...] nmol/L) URINE SUNNY CULTURE-KAYDEN COL C OUNT (22633)Ordered By: Warehouse Trainer on 10-26-2012 Bacteria identified Cx Nom (U) Final report Normal [facility] Work Phone: Comment on above: PATIENT NOT FASTINGP ERFORMED BY: [facility] Vmjjtg7206 [facility] [id number] Information: SRC:UR Y94986 Bacteria identified Cx Nom (U) NG36 Normal [facility] Work Phone: Comment on above: No growth in 36 - 48 hours. PATIENT NOT FASTINGP ERFORMED BY: BRE LabCoSt. Francis Medical CenterWpleur9092 [facility] [id number] Information: SRC:UR F45151 Urinalysis, Office (27340)Or dered By: Anaya Brown on 10-26-2012 Bilirubin [...] Internal Medicine Work Phone: URINALYSIS, W/ MICRO (86406) Ordered By: Warehouse Trainer on 10-05-2012 Appearance (U) Clear Normal Comprehens cheri Internal Medicine Work Phone: Comment on above: PATIENT NOT FASTINGP ERFORMED BY: BRE LabCobaltazar Qtuyvj8606 [facility] [id number] Information: SRC:UR B36211 Bilirubin Ql (U) Negative Normal Comprehe nsive Internal Medicine Work Phone: Comment on above: PATIENT NOT FASTINGP ERFORMED BY: BRE [facility] Puzfau0954 Schwartz RoadDublin [place] [id number] Information: SRC:UR R14648 Color (U) Yellow Normal [facility] Work Phone: Comment on above: PATIENT NOT FASTINGP ERFORMED BY: BRE [facility] Yzkubs4128 [address] RoadDublin [place] [id number] Information: SRC:UR O61844 Glucose Ql (U) Negative Normal Comprehens cheri Internal Medicine Work Phone: Comment on above: PATIENT NOT FASTINGP ERFORMED BY: BRE [facility] Iwoxns2095 [address] RoadDublin [place] [id number] Information: SRC:UR F10237 Hemoglobin Ql (U) Negative Normal Compreh ensive Internal Medicine Work Phone: Comment on above: PATIENT NOT FASTINGP ERFORMED BY: BRE [facility] Giwkli7113 [address] RoadDublin [place] [id number] Information: SRC:UR K98728 Ketones Ql (U) Trace Abnormal Comprehens cheri Internal Medicine Work Phone: Comment on above: PATIENT NOT FASTINGP ERFORMED BY: BRE [facility] Uguqij5300 [address] RoadDublin [place] [id number] Information: SRC:UR X56020 Leukocyte esterase Test strip Ql (U) Negative Normal [facility] Work Phone: Comment on above: PATIENT NOT FASTINGP ERFORMED BY: BRE [facility] Znvdaq9116 [address] RoadDublin [place] [id number] Information: SRC:UR V80317 Microscopic observation LM Nom (Urine sed) MICRON Normal [facility] Work Phone: Comment on above: Microscopic follows if indicated. PATIENT NOT FASTINGP ERFORMED BY: BRE [facility] Imqzfe2665 [address] RoadDublin [place] [id number] Information: SRC:UR C13677 Microscopic observation LM Nom (Urine sed) See below: Normal [facility] Medicine Work Phone: Comment on above: PATIENT NOT FASTINGP ERFORMED BY: CB [facility] Tgifof42[address] [facility] [id number] Information: SRC:UR C00612 Nitrite Ql (U) Negative Normal Comprehens cheri Internal Medicine Work Phone: Comment on above: PATIENT NOT FASTINGP ERFORMED BY: BRE Guajardolin[address] [facility] [id number] Information: SRC:UR P60878 pH (U) 8.0 [pH] Abnormal 5.0-7.5 [facility] Work Phone: Comment on above: PATIENT NOT FASTINGP ERFORMED BY: BRE Guajardolin[address] [facility] [id number] Information: SRC:UR E21121 Protein Ql (U) Trace Normal Comprehens cheri Internal Medicine Work Phone: Comment on above: PATIENT NOT FASTINGP ERFORMED BY: BRE Quintero6370 [facility] [id number] Information: SRC:UR E38909 Specific gravity (U) [Rel density] 1.024 1 Normal 1.005-1.03 0 [facility] Internal Medicine Work Phone: Comment on above: PATIENT NOT FASTINGP ERFORMED BY: BRE Quintero6370 [facility] [id number] Information: SRC:UR I74904 Urobilinogen Test strip (U) [Mass/Vol] 0.2 mg/dL Normal 0.0-1.9 Comprehensi Internal Medicine Work Phone: Comment on above: PATIENT NOT FASTINGP ERFORMED BY: BRE Mata Lqqfmx3211 [facility] [id number] Information: SRC:UR P61426 URINE SUNNY CULTURE (KAYDEN COL COUNT) (45020)Ordered By: Warehouse Trainer on 10-05-2012 Bacteria identified Cx Nom (U) [...] STobramycin S PATIENT NOT FASTINGP ERFORMED BY: BRE [facility] Ylgmtz6273 [facility] [id number] Bacteria identified Cx Nom (U) Final report Normal [facility] Work Phone: Comment on above: PATIENT NOT FASTINGP ERFORMED BY: BRE [facility] Lzqnzk8251 [facility] [id number] Amylase (67552)Ordered By: S ystem Pepper Cutter on 09-15-2012 Amylase [Catalytic activity/Vol] 79 U/L Normal 31-124 [facility] Work Phone: Comment on above: PATIENT NOT FASTINGP ERFORMED BY: BRE [facility] Opozfu0556 [facility] [id number] CBC WITH MANUAL DIFF (01776) Ordered By: Warehouse Trainer on 09-15-2012 Basophils (Bld) [#/Vol] 0.0 {x10E3/uL} Normal 0.0-0.2 [facility] Work Phone: Comment on above: PATIENT NOT FASTINGP ERFORMED BY: BRE [facility] Yyuzho3050 [facility] [id number] Information: [id number],H21053 Basophils/100 WBC (Bld) 0 % Normal 0-3 [facility] Work Phone: Comment on above: PATIENT NOT FASTINGP ERFORMED BY: [facility] Jcyfst9248 [facility] [id number] Information: 090702,M33983 Eosinophils (Bld) [#/Vol] 0.1 {x10E3/uL} Normal 0.0-0.4 [facility] Work Phone: Comment on above: PATIENT NOT FASTINGP ERFORMED BY: BRE Mata Bxknub0988 [facility] [id number] Information: 336235,[id number] Eosinophils/100 WBC (Bld) 1 % Normal 0-7 [facility] Work Phone: Comment on above: PATIENT NOT FASTINGP ERFORMED BY: BRE Mata Jgkzxs2207 [facility] [id number] Information: [id number],L38561 Erythrocyte distribution width (RBC) [Ratio] 13.9 % Normal 12.3-15.4 [facility] Work Phone: Comment on above: PATIENT NOT FASTINGP ERFORMED BY: BRE [address] [id number] Information: 657456,Q41669 Hematocrit (Bld) [Volume fraction] 40.2 % Normal 34.0-46.6 [facility] Work Phone: Comment on above: PATIENT NOT FASTINGP ERFORMED BY: BRE Mata Ikvvim3572 [facility] [id number] Information: [id number],P95069 Hemoglobin (Bld) [Mass/Vol] 13.5 g/dL Normal 11.1-15.9 [facility] Work Phone: Comment on above: PATIENT NOT FASTINGP ERFORMED BY: BRE MataAnthony [place] 6490170 [facility] [id number] Information: 301170,M82985 Immature granulocytes (Bld) [#/Vol] 0.0 {x10E3/uL} Normal 0.0-0.1 [facility] Work Phone: Comment on above: PATIENT NOT FASTINGP ERFORMED BY: BRE BaxterDaniel [place] 8612270 [facility] [id number] Information: 545497,N56701 Immature granulocytes/100 WBC (Bld) 0 % Normal 0-2 [facility] Work Phone: Comment on above: PATIENT NOT FASTINGP ERFORMED BY: BRE [address] [id number] Information: 148487,[id number] Lymphocytes (Bld) [#/Vol] 1.1 {x10E3/uL} Normal 0.7-4.5 [facility] Work Phone: Comment on above: PATIENT NOT FASTINGP ERFORMED BY: BRE BaxterCoSt. Francis Medical CenterKevmwh9037 [facility] [id number] Information: [id number],[id number] Lymphocytes/100 WBC (Bld) 26 % Normal 14-46 [facility] Work Phone: Comment on above: PATIENT NOT FASTINGP ERFORMED BY: [address] [id number] Information: [id number] MCH (RBC) [Entitic mass] 31.4 pg Normal 26.6-33.0 [facility] Internal Medicine Work Phone: Comment on above: PATIENT NOT FASTINGP ERFORMED BY: [facility]6370 [facility] [id number] Information: [id number] MCHC (RBC) [Mass/Vol] 33.6 g/dL Normal 31.5-35.7 [facility] Internal Medicine Work Phone: Comment on above: PATIENT NOT FASTINGP ERFORMED BY: LabCoSt. Francis Medical CenterFdiczh4122 [facility] [id number] Information: [id number],K74906 MCV (RBC) [Entitic vol] 94 fL Normal 79-97 [facility] Internal Medicine Work Phone: Comment on above: PATIENT NOT FASTINGP ERFORMED BY: LabUniversity Of [facility]–West6370 [facility] [id number] Information: [id number],[id number] Monocytes (Bld) [#/Vol] 0.6 {x10E3/uL} Normal 0.1-1.0 [facility] Internal Medicine Work Phone: Comment on above: PATIENT NOT FASTINGP ERFORMED BY: LabDaniel Ville 8612270 [facility] [id number] Information: [id number] Monocytes/100 WBC (Bld) 14 % Abnormal 4-13 [facility] Work Phone: Comment on above: PATIENT NOT FASTINGP ERFORMED BY: BRE Quintero63[facility]ersC[facility] [id number] Information: [id number] Neutrophils (Bld) [#/Vol] 2.5 {x10E3/uL} Normal 1.8-7.8 [facility] Work Phone: Comment on above: PATIENT NOT FASTINGP ERFORMED BY: BRE [place] 4923770 [facility] [id number] Information: 375707,[id number] Neutrophils/100 WBC (Bld) 59 % Normal 40-74 [facility] Work Phone: Comment on above: PATIENT NOT FASTINGP ERFORMED BY: BRE Mata Jbbpjh5255 [facility] [id number] Information: [id number],H30601 Platelets (Bld) [#/Vol] 357 {x10E3/uL} Normal 140-415 [facility] Internal Medicine Work Phone: Comment on above: PATIENT NOT FASTINGP ERFORMED BY: BRE Mata Xiehlf5524 [facility] [id number] Information: [id number] RBC (Bld) [#/Vol] 4.30 {x10E6/uL} Normal 3.77-5.28 [facility] Internal Medicine Work Phone: Comment on above: PATIENT NOT FASTINGP ERFORMED BY: BRE LabCoSt. Francis Medical CenterOiffxf6460 [facility] [id number] Information: [id number] WBC (Bld) [#/Vol] 4.3 {x10E3/uL} Normal 4.0-10.5 [facility] Internal Medicine Work Phone: Comment on above: PATIENT NOT FASTINGP ERFORMED BY: BRE LabCoAnthony V[place] 6490170 [facility] [id number] Information: 640983,U75414 Lipase (62342)Ordered By: stem Pepper Cutter on 09-15-2012 Lipase [Catalytic activity/Vol] 38 U/L Normal 0-59 [facility] Work Phone: Comment on above: PATIENT NOT FASTINGP ERFORMED BY: CB [facility] Xqamno0948 [address] RoadDublin [place] [id number] METABOLIC PANEL, COMPREHENSI VE (25844)Ordered By: Warehouse Trainer on 09-15-2012 Albumin [Mass/Vol] 4.3 g/dL Normal 3.6-4.8 [facility] Internal Medicine Work Phone: Comment on above: PATIENT NOT FASTINGP ERFORMED BY: BRE [facility] Nqokxt4824 [address] RoadDublin [place] [id number] Albumin/Globulin [Mass ratio] 2.2 {ratio} Normal 1.1-2.5 [facility] Work Phone: Comment on above: PATIENT NOT FASTINGP ERFORMED BY: CB [facility] Huhzvd0883 [address] RoadDublin [place] [id number] ALP [Catalytic activity/Vol] 73 [iU]/L Normal 25-165 [facility] Work Phone: Comment on above: PATIENT NOT FASTINGP ERFORMED BY: CB [facility] Lpwjvl4678 [address] RoadDublin [place] [id number] ALT [Catalytic activity/Vol] 20 [iU]/L Normal 0-32 [facility] Work Phone: Comment on above: PATIENT NOT FASTINGP ERFORMED BY: CB [facility] Hyzgaf5233 [address] RoadDublin [place] [id number] AST [Catalytic activity/Vol] 24 [iU]/L Normal 0-40 [facility] Work Phone: Comment on above: PATIENT NOT FASTINGP ERFORMED BY: CB [facility] Zevfbl2268 [address] RoadDublin [place] [id number] Bilirubin [Mass/Vol] 0.3 mg/dL Normal 0.0-1.2 Comp [facility] Internal Medicine Work Phone: Comment on above: PATIENT NOT FASTINGP ERFORMED BY: CB [facility] Bckfeo3456 [address] RoadDublin [place] [id number] Calcium [Mass/Vol] 9.4 mg/dL Normal 8.6-10.2 [facility] Internal Medicine Work Phone: Comment on above: PATIENT NOT FASTINGP ERFORMED BY: CB [facility] Psomrq5272 [address] RoadDublin [place] [id number] Chloride [Moles/Vol] 103 mmol/L Normal 97-108 [facility] Work Phone: Comment on above: PATIENT NOT FASTINGP ERFORMED BY: CB [facility] Pzsbkm7354 [address] RoadDublin [place] [id number] CO2 [Moles/Vol] 25 mmol/L Normal 20-32 [facility] Internal Medicine Work Phone: Comment on above: PATIENT NOT FASTINGP ERFORMED BY: CB [facility] Iwgkps2303 Schwartz RoadDublin [place] [id number] Creatinine [Mass/Vol] 1.00 mg/dL Normal 0.57-1.00 [facility] Work Phone: Comment on above: PATIENT NOT FASTINGP ERFORMED BY: CB [facility] Pcaxho5739 [address] RoadDublin [place] [id number] GFR/1.73 sq M predicted among blacks CKD-EPI (S/P/Bld) [Vol rate/Area] 70 mL/min/1.73 Normal [facility] Work Phone: Comment on above: PATIENT NOT FASTINGP ERFORMED BY: CB [facility] Vkbnnp8637 [address] RoadDublin [place] [id number] GFR/1.73 sq M predicted among non-blacks CKD-EPI (S/P/Bld) [Vol rate/Area] 61 mL/min/1.73 Normal [facility] Medicine Work Phone: Comment on above: PATIENT NOT FASTINGP ERFORMED BY: CB [facility] Aymwri1107 [address] RoadDublin [place] [id number] Globulin (S) [Mass/Vol] 2.0 g/dL Normal 1.5-4.5 [facility] Internal Medicine Work Phone: Comment on above: PATIENT NOT FASTINGP ERFORMED BY: BRE [facility] Iqnnvk7233 [address] RoadDublin [place] [id number] Glucose [Mass/Vol] 92 mg/dL Normal 65-99 [facility] Internal Medicine Work Phone: Comment on above: PATIENT NOT FASTINGP ERFORMED BY: CB [facility] Ehtgma4106 [address] RoadAtrium Health Cabarrusin [place] [id number] Potassium [Moles/Vol] 4.4 mmol/L Normal 3.5-5.2 [facility] Internal Medicine Work Phone: Comment on above: PATIENT NOT FASTINGP ERFORMED BY: CB [facility] Jfzlvs5802 [address] RoadDuin [place] [id number] Protein [Mass/Vol] 6.3 g/dL Normal 6.0-8.5 [facility] Internal Medicine Work Phone: Comment on above: PATIENT NOT FASTINGP ERFORMED BY: CB [facility] Zvsogc7865 [address] RoadUNC Health [id number] Sodium [Moles/Vol] 142 mmol/L Normal 134-144 [facility] Internal Medicine Work Phone: Comment on above: PATIENT NOT FASTINGP ERFORMED BY: BRE [facility] Fewnth3907 [address] [facility] [id number] Urea nitrogen [Mass/Vol] 16 mg/dL Normal 8-27 [facility] Internal Medicine Work Phone: Comment on above: PATIENT NOT FASTINGP ERFORMED BY: CB [facility] Mhcxaf4107 [address] RoadDuin [place] [id number] Urea nitrogen/Creatinine [Mass ratio] 16 mg/mg Normal 11-26 [facility] Internal Medicine Work Phone: Comment on above: PATIENT NOT FASTINGP ERFORMED BY: CB [facility] Ermgxy2349 [address] RoadDublin [place] [id number] URINE SUNNY CULTURE-IDENTIFICA [place] (01647)Ordered By: Warehouse Trainer on 09-15-2012 Bacteria identified Cx Nom (U) Citrobacter freundii Normal Comprehensi ve Internal Medicine Work Phone: Comment on above: 100 Colonies/mL . PATIENT NOT FASTINGP ERFORMED BY: BRE [employer] Ucofzg9991 [facility] [id number] Information: [id number] Bacteria identified Cx Nom (U) Final report Normal [facility] Medicine Work Phone: Comment on above: PATIENT NOT FASTINGP ERFORMED BY: BRE [facility]icsSaint [facility] Mssily1241 [facility] [id number] Information: [id number] Other Antibiotic [Susc] MIHEAD Normal [facility] Medicine Work Phone: Comment on above: S = Susceptibl e; I = Intermediate; R = Resistant P = Positive; N = Negative MICS are expressed in micrograms per mL Antibiotic RSLT#1 RSLT#2 RSLT#3 RSLT#4Amoxicillin/Clavulanic Acid RCefazolin RCefepime SCeftriaxone SCefuroxime SCephalothin RCiprofloxacin SErtapenem SGentamicin SImipenem SLevofloxacin SNitrofurantoin SPiperacillin STetracycline STobramycin STrimethoprim/Sulfa S PATIENT NOT FASTINGP ERFORMED BY: BRE BinOpticsSaint [facility] Ykznku8985 [facility] [id number] Information: E73218 Urinalysis, Office (81413)Or dered By: Mary Bush on 09-15-2012 Bilirubin [...] Medicine Work Phone: Rapid Strep Test, Office ([phone])Ordered By: Anaya Brown on 05-08-2012 S. pyogenes Ag IA Ql (Unsp spec) Negative Normal [facility] Work Phone: Throat Culture (75103)Ordere d By: Warehouse Trainer on 05-08-2012 Bacteria identified Respiratory culture Nom (Unsp spec) RRF Normal [facility] Work Phone: Comment on above: Routine respiratory venita PATIENT NOT FASTINGP ERFORMED BY: BRE [facility] Diqygd1830 [address] RoadDublin [place] [id number] Information: SRC:THRT Q58382 Bacteria identified Respiratory culture Nom (Unsp spec) Final report Normal [facility] Medicine Work Phone: Comment on above: PATIENT NOT FASTINGP ERFORMED BY: CB [facility] Byilhj1456 [address] RoadDublin [place] [id number] Information: SRC:THRT K62349 METABOLIC PANEL, COMPREHENSI VE (55711)Ordered By: Warehouse Trainer on 03-25-2012 Albumin [Mass/Vol] 4.4 g/dL Normal 3.6-4.8 [facility]pre [facility] Internal Medicine Work Phone: Comment on above: PATIENT NOT FASTINGP ERFORMED BY: CB [facility] Sdgvlm0702 [address] RoadDublin [place] [id number] Information: 188956,Z90330 Albumin/Globulin [Mass ratio] 2.2 {ratio} Normal 1.1-2.5 [facility] Work Phone: Comment on above: PATIENT NOT FASTINGP ERFORMED BY: CB [facility] Zgasyj5473 [address] RoadDublin [place] [id number] Information: 030335,L82109 ALP [Catalytic activity/Vol] 78 [iU]/L Normal 25-165 [facility] Medicine Work Phone: Comment on above: PATIENT NOT FASTINGP ERFORMED BY: BRE LabCobaltazar GuajardoPfycfu0682 [address] [facility]in [place] [id number] Information: 514236,X61614 ALT [Catalytic activity/Vol] 21 [iU]/L Normal 0-40 [facility] Medicine Work Phone: Comment on above: PATIENT NOT FASTINGP ERFORMED BY: CB [facility] Wxqdgc7168 [address] [facility] [id number] Information: 795110,A06103 AST [Catalytic activity/Vol] 25 [iU]/L Normal 0-40 [facility] Internal Medicine Work Phone: Comment on above: PATIENT NOT FASTINGP ERFORMED BY: [facility] Uhvjkq2014 [address] [facility] [id number] Information: 705062,F10807 Bilirubin [Mass/Vol] 0.3 mg/dL Normal 0.0-1.2 [facility] Internal [facility] Work Phone: Comment on above: PATIENT NOT FASTINGP ERFORMED BY: BRE [facility] Edvkzc6895 [address] [facility] [id number] Information: 280194,Z60184 Calcium [Mass/Vol] 9.3 mg/dL Normal 8.6-10.2 [facility] Internal Medicine Work Phone: Comment on above: PATIENT NOT FASTINGP ERFORMED BY: CB [facility] Cdatlo6323 [address] [facility] [id number] Information: 047190,Y26775 Chloride [Moles/Vol] 101 mmol/L Normal 97-108 [facility]eren[facility] Internal Medicine Work Phone: Comment on above: PATIENT NOT FASTINGP ERFORMED BY: CB [facility] Whlkwk5625 [address] [facility] [id number] Information: 357018,W53914 CO2 [Moles/Vol] 22 mmol/L Normal 20-32 [facility] Internal Medicine Work Phone: Comment on above: PATIENT NOT FASTINGP ERFORMED BY: CB [facility] Kgupha3483 [address] [facility] [id number] Information: 785286,W94230 Creatinine [Mass/Vol] 0.99 mg/dL Normal 0.57-1.00 [facility] Internal Medicine Work Phone: Comment on above: PATIENT NOT FASTINGP ERFORMED BY: CB [facility] Rpsvyq2775 [address] [facility] [id number] Information: 146866,Z49633 GFR/1.73 sq M predicted among blacks CKD-EPI (S/P/Bld) [Vol rate/Area] 71 mL/min/1.73 Normal [facility] Medicine Work Phone: Comment on above: PATIENT NOT FASTINGP ERFORMED BY: CB [facility] Cjehts6049 [address] [facility] [id number] Information: 434449,B05472 GFR/1.73 sq M predicted among non-blacks CKD-EPI (S/P/Bld) [Vol rate/Area] 62 mL/min/1.73 Normal [facility] Medicine Work Phone: Comment on above: PATIENT NOT FASTINGP ERFORMED BY: CB [facility] Wilbqf7084 [address] [facility] [id number] Information: 576720,E72425 Globulin (S) [Mass/Vol] 2.0 g/dL Normal 1.5-4.5 [facility] Work Phone: Comment on above: PATIENT NOT FASTINGP ERFORMED BY: CB [facility] Gkirqf8308 [address] [facility] [id number] Information: 151522,Z92547 Glucose [Mass/Vol] 85 mg/dL Normal 65-99 [facility] Internal Medicine Work Phone: Comment on above: PATIENT NOT FASTINGP ERFORMED BY: CB [facility] Lbnvbr0763 [address] [facility] [id number] Information: 691686,Z77696 Potassium [Moles/Vol] 4.4 mmol/L Normal 3.5-5.2 [facility] Internal Medicine Work Phone: Comment on above: PATIENT NOT FASTINGP ERFORMED BY: BRE Quintero6370 [facility] [id number] Information: 795386,S18082 Protein [Mass/Vol] 6.4 g/dL Normal 6.0-8.5 [facility] Internal Medicine Work Phone: Comment on above: PATIENT NOT FASTINGP ERFORMED BY: BRE LabCoSt. Francis Medical CenterHdxyed9628 [address] [facility] [id number] Information: 468509,I59794 Sodium [Moles/Vol] 139 mmol/L Normal 134-144 [facility] Internal Medicine Work Phone: Comment on above: PATIENT NOT FASTINGP ERFORMED BY: BRE LabUniversity [facility]6370 [facility] [id number] Information: 744880,T95032 Urea nitrogen [Mass/Vol] 19 mg/dL Normal 8-27 [facility] Internal Medicine Work Phone: Comment on above: PATIENT NOT FASTINGP ERFORMED BY: BRE Mata Igpznv0399 [facility] [id number] Information: 987650,M64633 Urea nitrogen/Creatinine [Mass ratio] 19 mg/mg Normal 11-26 [facility] Internal Medicine Work Phone: Comment on above: PATIENT NOT FASTINGP ERFORMED BY: [facility] Surbjq2833 [facility] [id number] Information: 359150,F18349 T3, FREE (TRIDOTHYRONINE) (3 0339)Ordered By: Warehouse Trainer on 03-25-2012 Free T3 [Mass/Vol] 2.5 pg/mL Normal 2.0-4.4 [facility] Internal Medicine Work Phone: Comment on above: PATIENT NOT FASTINGP ERFORMED BY: BRE [facility] Qnaroq6183 [facility] [id number] T4, FREE (THYROXINE) (15025) Ordered By: Warehouse Trainer on 03-25-2012 Free T4 [Mass/Vol] 1.07 ng/dL Normal 0.82-1.77 Compre hensive Internal Medicine Work Phone: Comment on above: PATIENT NOT FASTINGP ERFORMED BY: BRE [facility] Jussgt1024 [address] [facility] [place] [id number] TSH (49408)Ordered By: MediProPharmacheyenne m Pepper Cutter on 03-25-2012 TSH Qn 1.790 {uIU/mL} Normal 0.450-4.50 0 [facility] Medicine Work Phone: Comment on above: PATIENT NOT FASTINGP ERFORMED BY: BRE LabCobaltazar GuajardoOerier1360 [address] [facility] [id number] URINALYSIS, W/ MICRO (36040) Ordered By: Warehouse Trainer on 03-25-2012 Appearance (U) Clear Normal Comprehens cheri Internal Medicine Work Phone: Comment on above: PATIENT NOT FASTINGP ERFORMED BY: BRE LabCobaltazar Baqnll1930 [address] [facility] [id number] Information: H08185 Bilirubin Ql (U) Negative Normal Comprehe nsive Internal Medicine Work Phone: Comment on above: PATIENT NOT FASTINGP ERFORMED BY: BRE [facility] Klwilk6044 [address] [facility] [id number] Information: O64712 Color (U) Yellow Normal [facility] Medicine Work Phone: Comment on above: PATIENT NOT FASTINGP ERFORMED BY: BRE [facility] Jcqhvh3010 [address] [facility] [place] [id number] Information: I68933 Glucose Ql (U) Negative Normal Comprehens cheri Internal Medicine Work Phone: Comment on above: PATIENT NOT FASTINGP ERFORMED BY: BRE [facility] Wceukx0745 [address] [facility] [place] [id number] Information: K81805 Hemoglobin Ql (U) Negative Normal Compreh ensive Internal Medicine Work Phone: Comment on above: PATIENT NOT FASTINGP ERFORMED BY: BRE [facility] Pxifps6121 [address] [facility] [place] [id number] Information: R35195 Ketones Ql (U) Negative Normal Comprehens cheri Internal Medicine Work Phone: Comment on above: PATIENT NOT FASTINGP ERFORMED BY: BRE [facility] Owkfbf1263 [address] [facility] [id number] Information: L59707 Leukocyte esterase Test strip Ql (U) Negative Normal [facility] Medicine Work Phone: Comment on above: PATIENT NOT FASTINGP ERFORMED BY: BRE [facility] Lvmwfd8974 [address] [facility] [id number] Information: W48566 Microscopic observation LM Nom (Urine sed) See below: Normal [facility] Medicine Work Phone: Comment on above: PATIENT NOT FASTINGP ERFORMED BY: BRE [facility] Efcluj9125 [address] [facility] [id number] Information: O28306 Microscopic observation LM Nom (Urine sed) MICRON Normal [facility] Medicine Work Phone: Comment on above: Microscopic follows if indicated. PATIENT NOT FASTINGP ERFORMED BY: BRE Mata Umcksh3946 [address] [facility] [id number] Information: E51601 Nitrite Ql (U) Negative Normal Comprehens cheri Internal Medicine Work Phone: Comment on above: PATIENT NOT FASTINGP ERFORMED BY: BRE [facility] Eyuhpn9153 [address] [facility] [id number] Information: I62978 pH (U) 7.5 [pH] Normal 5.0-7.5 [facility] Work Phone: Comment on above: PATIENT NOT FASTINGP ERFORMED BY: BRE [facility] Cjowld5609 [address] [facility] [id number] Information: Z67453 Protein Ql (U) Negative Normal Comprehens cheri Internal Medicine Work Phone: Comment on above: PATIENT NOT FASTINGP ERFORMED BY: BRE [facility] Azxtgw4733 [facility] [id number] Information: G13957 Specific gravity (U) [Rel density] 1.016 1 Normal 1.005-1.03 0 [facility] Medicine Work Phone: Comment on above: PATIENT NOT FASTINGP ERFORMED BY: LabUniversity [facility]West6370 [facility] [id number] Information: T73800 Urobilinogen Test strip (U) [Mass/Vol] 0.2 mg/dL Normal 0.0-1.9 Comprehensi Internal Medicine Work Phone: Comment on above: PATIENT NOT FASTINGP ERFORMED BY: LabDaniel [place] 8612270 [facility] [id number] Information: J78931 URINE SUNNY CULTURE (KAYDEN COL COUNT) (24765)Ordered By: Warehouse Trainer on 03-25-2012 Bacteria identified Cx Nom (U) NG36 Normal [facility] Medicine Work Phone: Comment on above: No growth in 36 - 48 hours. PATIENT NOT FASTINGP ERFORMED BY: [facility]6370 [facility] [id number] Bacteria identified Cx Nom (U) Final report Normal [facility] Medicine Work Phone: Comment on above: PATIENT NOT FASTINGP ERFORMED BY: LabUniversity [facility]6370 [facility] [id number] SUNNY CULTURE-OTHER (63585)Ord ered By: Warehouse Trainer on 09-12-2011 Bacteria identified Respiratory culture Nom (Unsp spec) RRF Normal [facility] Medicine Work Phone: Comment on above: Routine respiratory venita PATIENT NOT FASTINGP ERFORMED BY: [facility] Ziinue6607 [facility] [id number] Information: SRC:THRT E26412 Bacteria identified Respiratory culture Nom (Unsp spec) Final report Normal [facility] Work Phone: Comment on above: PATIENT NOT FASTINGP ERFORMED BY: [facility] Buxkir8052 [facility] [id number] Information: SRC:THRJenifer X71785 Rapid Strep Test, Office (89 830)Ordered By: Isabella Ortiz on 09-12-2011 S. pyogenes Ag IA Ql (Unsp spec) Negative Normal [facility] Work Phone: Thin prep Pap (16337)Ordered By: Warehouse Trainer on 07-15-2011 Microscopic observation Other stain Nom (Unsp spec) . Normal Comprehens cheri Internal Medicine Work Phone: Comment on above: Source.............V aginalLMP / Prev Treat...HystNo. of containers..01 CYTYC Thin Prep VialPERFORMED BY: [employer] Eqkzegemej[address] [id number] Information: [id number] Pathology report final diagnosis Narrative SPRCS Normal [facility] Medicine Work Phone: Comment on above: NEGATIVE FOR INTRAEP ITHELIAL LESION AND MALIGNANCY.CELLULAR CHANGES ASSOCIATED WITH ATROPHY ARE PRESENT.Satisfactory for evaluation. No endocervical cells are present. This isconsistent with a history of hysterectomy.V72.31 ; Routine gynecological examinationMatthew A Charanjit Post Commander (ASCP) Source.............V aginalLMP / Prev Treat...HystNo. of containers..01 CYTYC Thin Prep VialPERFORMED BY: [employer] [id number] Information: [id number] Thin prep Pap (86438) PAPSMR Normal Com prehensive Internal Medicine Work Phone: [...] of containers..01 CYTYC Thin Prep VialPERFORMED BY: [address] [facility] [place] [id number] Information: [id number] CBC WITH MANUAL DIFF (00456) Ordered By: Warehouse Trainer on 06-21-2011 Basophils (Bld) [#/Vol] 0.0 {x10E3/uL} Normal 0.0-0.2 [facility] Work Phone: Comment on above: PATIENT NOT FASTINGP ERFORMED BY: [place] 0518770 [facility] [id number] Information: 651083,Q00362 Basophils/100 WBC (Bld) 1 % Normal 0-3 [facility] Work Phone: Comment on above: PATIENT NOT FASTINGP ERFORMED BY: [facility]6370 [facility] [id number] Information: 367020,U54516 Eosinophils (Bld) [#/Vol] 0.1 {x10E3/uL} Normal 0.0-0.4 [facility] Work Phone: Comment on above: PATIENT NOT FASTINGP ERFORMED BY: [facility]6370 [facility] [id number] Information: 892296,U21885 Eosinophils/100 WBC (Bld) 3 % Normal 0-7 [facility] Work Phone: Comment on above: PATIENT NOT FASTINGP ERFORMED BY: [place] 0518770 [facility] [id number] Information: 281472,V37705 Erythrocyte distribution width (RBC) [Ratio] 13.2 % Normal 11.7-15.0 [facility] Work Phone: Comment on above: PATIENT NOT FASTINGP ERFORMED BY: [facility]6370 [facility] [id number] Information: 802351,A55857 Hematocrit (Bld) [Volume fraction] 41.7 % Normal 34.0-44.0 [facility] Work Phone: Comment on above: PATIENT NOT FASTINGP ERFORMED BY: [place] 0518770 [facility] [id number] Information: 013531,N31579 Hemoglobin (Bld) [Mass/Vol] 14.1 g/dL Normal 11.5-15.0 [facility] Work Phone: Comment on above: PATIENT NOT FASTINGP ERFORMED BY: [address] [id number] Information: 645337,N13668 Immature granulocytes (Bld) [#/Vol] 0.0 {x10E3/uL} Normal 0.0-0.1 [facility] Work Phone: Comment on above: PATIENT NOT FASTINGP ERFORMED BY: [place] 8612270 [facility] [id number] Information: 011162,J23195 Immature granulocytes/100 WBC (Bld) 0 % Normal 0-2 [facility] Work Phone: Comment on above: PATIENT NOT FASTINGP ERFORMED BY: [place] 0518770 [facility] [id number] Information: 425198,T66578 Lymphocytes (Bld) [#/Vol] 1.0 {x10E3/uL} Normal 0.7-4.5 [facility] Work Phone: Comment on above: PATIENT NOT FASTINGP ERFORMED BY: [place] 0518770 [facility] [id number] Information: 313779,F23363 Lymphocytes/100 WBC (Bld) 28 % Normal 14-46 [facility] Work Phone: Comment on above: PATIENT NOT FASTINGP ERFORMED BY: [facility]in6370 [facility] [id number] Information: 191334,L68323 MCH (RBC) [Entitic mass] 32.9 pg Normal 27.0-34.0 [facility] Internal Medicine Work Phone: Comment on above: PATIENT NOT FASTINGP ERFORMED BY: BRE [place] 4923770 [facility] [id number] Information: 675873,K58069 MCHC (RBC) [Mass/Vol] 33.8 g/dL Normal 32.0-36.0 [facility] Internal Medicine Work Phone: Comment on above: PATIENT NOT FASTINGP ERFORMED BY: BRE Mata[address] [id number] Information: 282914,P45847 MCV (RBC) [Entitic vol] 97 fL Normal 80-98 [facility] Work Phone: Comment on above: PATIENT NOT FASTINGP ERFORMED BY: [place] 0518770 [facility] [id number] Information: 262457,B80719 Monocytes (Bld) [#/Vol] 0.4 {x10E3/uL} Normal 0.1-1.0 [facility] Work Phone: Comment on above: PATIENT NOT FASTINGP ERFORMED BY: [place] 0518770 [facility] [id number] Information: 677399,S19354 Monocytes/100 WBC (Bld) 10 % Normal 4-13 [facility] Work Phone: Comment on above: PATIENT NOT FASTINGP ERFORMED BY: [place] 0518770 [facility] [id number] Information: 014875,I44267 Neutrophils (Bld) [#/Vol] 2.0 {x10E3/uL} Normal 1.8-7.8 [facility] Work Phone: Comment on above: PATIENT NOT FASTINGP ERFORMED BY: CB [place] 4923770 [facility] [id number] Information: 389775,[id number] Neutrophils/100 WBC (Bld) 58 % Normal 40-74 [facility] Internal Medicine Work Phone: Comment on above: PATIENT NOT FASTINGP ERFORMED BY: BRE [facility] Ciqaxt2105 [facility] [id number] Information: [id number],R79367 Platelets (Bld) [#/Vol] 271 {x10E3/uL} Normal 140-415 [facility] Internal Medicine Work Phone: Comment on above: PATIENT NOT FASTINGP ERFORMED BY: BRE LabKrysten Zyifzc5819 [facility] [id number] Information: 659565,Q17076 RBC (Bld) [#/Vol] 4.29 {x10E6/uL} Normal 3.80-5.10 [facility] Internal Medicine Work Phone: Comment on above: PATIENT NOT FASTINGP ERFORMED BY: BRE BaxterSaint [facility] Uobpjz8848 [facility] [id number] Information: 186795,N30721 WBC (Bld) [#/Vol] 3.5 {x10E3/uL} Abnormal 4.0-10.5 [facility] Internal Medicine Work Phone: Comment on above: PATIENT NOT FASTINGP ERFORMED BY: BRE [facility] Fofokt4123 [facility] [id number] Information: 737276,[id number] METABOLIC PANEL, COMPREHENSI VE (08012)Ordered By: Warehouse Trainer on 06-21-2011 Albumin [Mass/Vol] 4.4 g/dL Normal 3.6-4.8 [facility] Internal Medicine Work Phone: Comment on above: PATIENT NOT FASTINGP ERFORMED BY: BRE LabCo Ctspxk6214 [facility] [id number] Albumin/Globulin [Mass ratio] 2.3 {ratio} Normal 1.1-2.5 [facility] Internal Medicine Work Phone: Comment on above: PATIENT NOT FASTINGP ERFORMED BY: CB [facility] Tkxbks2953 [address] RoadDublin [place] [id number] ALP [Catalytic activity/Vol] 92 [iU]/L Normal 25-165 [facility] Work Phone: Comment on above: PATIENT NOT FASTINGP ERFORMED BY: CB [facility] Qorjnb3590 [address] RoadDublin [place] [id number] ALT [Catalytic activity/Vol] 13 [iU]/L Normal 0-40 [facility] Work Phone: Comment on above: PATIENT NOT FASTINGP ERFORMED BY: CB [facility] Wyrazs1801 [address] RoadDublin [place] [id number] AST [Catalytic activity/Vol] 20 [iU]/L Normal 0-40 [facility] Work Phone: Comment on above: PATIENT NOT FASTINGP ERFORMED BY: CB [facility] Yvryai9[address] RoadDublin [place] [id number] Bilirubin [Mass/Vol] 0.3 mg/dL Normal 0.0-1.2 Comp rehensive Internal Medicine Work Phone: Comment on above: PATIENT NOT FASTINGP ERFORMED BY: CB [facility] Jzjkvk1325 [address] RoadDublin [place] [id number] Calcium [Mass/Vol] 9.6 mg/dL Normal 8.6-10.2 [facility] Internal Medicine Work Phone: Comment on above: PATIENT NOT FASTINGP ERFORMED BY: CB [facility] Hlgudf1420 [address] RoadDublin [place] [id number] Chloride [Moles/Vol] 106 mmol/L Normal 97-108 Comp rehensive Internal Medicine Work Phone: Comment on above: PATIENT NOT FASTINGP ERFORMED BY: CB [facility] Tjungu1458 [address] RoadDublin [place] [id number] CO2 [Moles/Vol] 25 mmol/L Normal 20-32 Comprehen [facility] Internal Medicine Work Phone: Comment on above: PATIENT NOT FASTINGP ERFORMED BY: CB [facility] Qkaacg7968 [address] RoadDublin [place] [id number] Creatinine [Mass/Vol] 1.08 mg/dL Abnormal 0.57-1.00 [facility] prehensive Internal Medicine Work Phone: Comment on above: PATIENT NOT FASTINGP ERFORMED BY: BRE BaxterUniversity Of Michigan Health–West6370 [facility] [id number] GFR/1.73 sq M predicted among blacks MDRD (S/P/Bld) [Vol rate/Area] 64 mL/min/{1.73_m2} Normal Comprehensiv e Internal Medicine Work Phone: Comment on above: Note: A persistent e GFR <60 mL/min/1.73 m2 (3 months or more) mayindicate chronic kidney disease. An eGFR >59 mL/min/1.73 m2 with anelevated urine protein also may indicate chronic kidney disease.Calculated using CKD-EPI formula. PATIENT NOT FASTINGP ERFORMED BY: [facility]6370 [facility] [id number] GFR/1.73 sq M predicted among non-blacks CKD-EPI (S/P/Bld) [Vol rate/Area] 56 mL/min/1.73 Abnormal [facility] Work Phone: Comment on above: PATIENT NOT FASTINGP ERFORMED BY: [facility] Gctbgi1330 [facility] [id number] Globulin (S) [Mass/Vol] 1.9 g/dL Normal 1.5-4.5 [facility] Work Phone: Comment on above: PATIENT NOT FASTINGP ERFORMED BY: LabUniversity Of [facility]–West6370 [facility] [id number] Glucose [Mass/Vol] 88 mg/dL Normal 65-99 [facility] Internal Medicine Work Phone: Comment on above: PATIENT NOT FASTINGP ERFORMED BY: LabUniversity Of Michigan Health–West6370 [facility] [id number] Potassium [Moles/Vol] 4.2 mmol/L Normal 3.5-5.2 [facility] prehensive Internal Medicine Work Phone: Comment on above: PATIENT NOT FASTINGP ERFORMED BY: CB [facility] Ugudur2695 [address] RoadDublin [place] [id number] Protein [Mass/Vol] 6.3 g/dL Normal 6.0-8.5 [facility] Internal Medicine Work Phone: Comment on above: PATIENT NOT FASTINGP ERFORMED BY: CB [facility] Teqoye0293 Schwartz RoadDublin [place] [id number] Sodium [Moles/Vol] 142 mmol/L Normal 135-145 [facility] Internal Medicine Work Phone: Comment on above: PATIENT NOT FASTINGP ERFORMED BY: CB [facility] Wxwmtv6[address] RoadDublin [place] [id number] Urea nitrogen [Mass/Vol] 17 mg/dL Normal 8- [facility] Internal Medicine Work Phone: Comment on above: PATIENT NOT FASTINGP ERFORMED BY: CB [facility] Kwbchg1486 [address] RoadDublin [place] [id number] Urea nitrogen/Creatinine [Mass ratio] 16 mg/mg Normal 11- [facility] Internal Medicine Work Phone: Comment on above: PATIENT NOT FASTINGP ERFORMED BY: CB [facility] Vhjdsk3911 [address] RoadDublin [place] [id number] Vitamin D Hydroxy (55858)Ord ered By: Warehouse Trainer on 06-21-2011 Calcitriol [Mass/Vol] 49.3 ng/mL Normal 32.0-100.0 [facility] Internal Medicine Work Phone: Comment on above: Effective Lenardbe r 2010 Vitamin D, 25-Hydroxy reference intervals will be changing to 30-100. .Recent studies consider the lower limit of 32.0 ng/mL to be athreshold for optimal health.Abelardo HODGES. J Nutr. 2005 Sep;135(2):317-22. PATIENT NOT FASTINGP ERFORMED BY: CB [facility] Ypcwiq4996 Schwartz RoadDublin [place] [id number] CBC WITH MANUAL DIFF (48734) Ordered By: Warehouse Trainer on 03-04-2011 Basophils (Bld) [#/Vol] 0.0 {x10E3/uL} Normal 0.0-0.2 [facility] Work Phone: Comment on above: PATIENT WAS FASTINGP ERFORMED BY: BRE BaxterDaniel V[place] [id number] [facility] [id number] Information: [id number],[id number] Basophils/100 WBC (Bld) 1 % Normal 0-3 [facility] Work Phone: Comment on above: PATIENT WAS FASTINGP ERFORMED BY: [address] [id number] Information: [id number] Eosinophils (Bld) [#/Vol] 0.1 {x10E3/uL} Normal 0.0-0.4 [facility] Work Phone: Comment on above: PATIENT WAS FASTINGP ERFORMED BY: [address] [id number] Information: 558388,[id number] Eosinophils/100 WBC (Bld) 3 % Normal 0-7 [facility] Work Phone: Comment on above: PATIENT WAS FASTINGP ERFORMED BY: [address] [id number] Information: [id number] Erythrocyte distribution width (RBC) [Ratio] 13.2 % Normal 11.7-15.0 [facility] Work Phone: Comment on above: PATIENT WAS FASTINGP ERFORMED BY: [address] [id number] Information: 038335,[id number] Hematocrit (Bld) [Volume fraction] 41.8 % Normal 34.0-44.0 [facility] Work Phone: Comment on above: PATIENT WAS FASTINGP ERFORMED BY: [address] [id number] Information: 246806,[id number] Hemoglobin (Bld) [Mass/Vol] 13.8 g/dL Normal 11.5-15.0 [facility] Work Phone: Comment on above: PATIENT WAS FASTINGP ERFORMED BY: [place] 0518770 [facility] [id number] Information: 182170,[id number] Immature granulocytes (Bld) [#/Vol] 0.0 {x10E3/uL} Normal 0.0-0.1 [facility] Work Phone: Comment on above: PATIENT WAS FASTINGP ERFORMED BY: [place] 0518770 [facility] [id number] Information: 585443,V01925 Immature granulocytes/100 WBC (Bld) 0 % Normal 0-2 [facility] Work Phone: Comment on above: Please note refere nce interval change PATIENT WAS FASTINGP ERFORMED BY: [address] [id number] Information: [id number],[id number] Lymphocytes (Bld) [#/Vol] 1.3 {x10E3/uL} Normal 0.7-4.5 [facility] Work Phone: Comment on above: PATIENT WAS FASTINGP ERFORMED BY: [place] 0518770 [facility] [id number] Information: 309740,[id number] Lymphocytes/100 WBC (Bld) 31 % Normal 14-46 [facility] Work Phone: Comment on above: PATIENT WAS FASTINGP ERFORMED BY: [place] 0518770 [facility] [id number] Information: [id number] MCH (RBC) [Entitic mass] 32.5 pg Normal 27.0-34.0 [facility] Work Phone: Comment on above: PATIENT WAS FASTINGP ERFORMED BY: [facility]6370 [facility] [id number] Information: 710034,[id number] MCHC (RBC) [Mass/Vol] 33.0 g/dL Normal 32.0-36.0 [facility] prehensive Internal Medicine Work Phone: Comment on above: PATIENT WAS FASTINGP ERFORMED BY: BRE Quintero6370 [facility] [id number] Information: 369434,Q29002 MCV (RBC) [Entitic vol] 98 fL Normal 80-98 [facility] Work Phone: Comment on above: PATIENT WAS FASTINGP ERFORMED BY: BRE Mata Wdymjm[address] [id number] Information: 553194,[id number] Monocytes (Bld) [#/Vol] 0.4 {x10E3/uL} Normal 0.1-1.0 [facility] Work Phone: Comment on above: PATIENT WAS FASTINGP ERFORMED BY: BRE Baxter[address] [id number] Information: 426453,[id number] Monocytes/100 WBC (Bld) 9 % Normal 4-13 [facility] Work Phone: Comment on above: PATIENT WAS FASTINGP ERFORMED BY: BRE Mata Msoqlf1668 [facility] [id number] Information: 458121,[id number] Neutrophils (Bld) [#/Vol] 2.3 {x10E3/uL} Normal 1.8-7.8 [facility] Work Phone: Comment on above: PATIENT WAS FASTINGP ERFORMED BY: BRE BaxterUniversity Of Michigan Health–West6370 [facility] [id number] Information: 709103,Q69744 Neutrophils/100 WBC (Bld) 56 % Normal 40-74 [facility] Work Phone: Comment on above: PATIENT WAS FASTINGP ERFORMED BY: BRE BaxterDaniel [place] 8612270 [facility] [id number] Information: 205255,[id number] Platelets (Bld) [#/Vol] 265 {x10E3/uL} Normal 140-415 [facility] Work Phone: Comment on above: PATIENT WAS FASTINGP ERFORMED BY: BRE LabCobaltazar GuajardoNkxumx0465 [facility] [id number] Information: [id number],[id number] RBC (Bld) [#/Vol] 4.25 {x10E6/uL} Normal 3.80-5.10 [facility] Internal Medicine Work Phone: Comment on above: PATIENT WAS FASTINGP ERFORMED BY: BRE [facility] Qolyui2975 [facility] [id number] Information: 253135,K27933 WBC (Bld) [#/Vol] 4.1 {x10E3/uL} Normal 4.0-10.5 [facility] Internal Medicine Work Phone: Comment on above: PATIENT WAS FASTINGP ERFORMED BY: BRE Mata Szcnxt7313 [facility] [id number] Information: 761262,Q25543 LIPID PANEL (97932)Ordered B y: Warehouse Trainer on 03-04-2011 Cholesterol [Mass/Vol] 305 mg/dL Abnormal 100-199 [facility] Work Phone: Comment on above: PATIENT WAS FASTINGP ERFORMED BY: BRE Guajardolin6370 [facility] [id number] Cholesterol in HDL [Mass/Vol] 67 mg/dL Normal [facility] Work Phone: Comment on above: According to ATP-III Guidelines, HDL-C >59 mg/dL is considered anegative risk factor for CHD. PATIENT WAS FASTINGP ERFORMED BY: BRE [facility] Mlvdjq8331 [facility] [id number] Cholesterol in LDL [Mass/Vol] 199 mg/dL Abnormal 0-99 [facility] Work Phone: Comment on above: PATIENT WAS FASTINGP ERFORMED BY: BRE [facility] Chyrvu0050 [facility] [id number] Cholesterol in LDL/Cholesterol in HDL [Mass ratio] 3.0 {ratio_units} Normal 0.0-3.2 [facility] Work Phone: Comment on above: PATIENT WAS FASTINGP ERFORMED BY: BRE [facility] Cqzuik7410 [address] RoadDublin [place] [id number] Cholesterol in VLDL [Mass/Vol] 39 mg/dL Normal 5-40 [facility] Work Phone: Comment on above: PATIENT WAS FASTINGP ERFORMED BY: BRE [facility] Xvbrsh2397 [address] RoadDublin [place] [id number] Triglyceride [Mass/Vol] 195 mg/dL Abnormal 0-149 [facility] Work Phone: Comment on above: PATIENT WAS FASTINGP ERFORMED BY: BRE LabCobaltazar GuajardoJmwzyj6935 [address] RoadDublin [place] [id number] METABOLIC PANEL, COMPREHENSI VE (75347)Ordered By: Warehouse Trainer on 03-04-2011 Albumin [Mass/Vol] 4.2 g/dL Normal 3.6-4.8 [facility] Internal Medicine Work Phone: Comment on above: PATIENT WAS FASTINGP ERFORMED BY: BRE [facility] Yjidrm9077 [address] RoadDublin [place] [id number] Albumin/Globulin [Mass ratio] 1.8 {ratio} Normal 1.1-2.5 [facility] Work Phone: Comment on above: PATIENT WAS FASTINGP ERFORMED BY: BRE [facility] Dohkkb3370 [address] RoadDublin [place] [id number] ALP [Catalytic activity/Vol] 82 [iU]/L Normal 25-165 [facility] Work Phone: Comment on above: PATIENT WAS FASTINGP ERFORMED BY: BRE [facility] Vdvdvg2623 [address] RoadDublin [place] [id number] ALT [Catalytic activity/Vol] 16 [iU]/L Normal 0-40 [facility] Work Phone: Comment on above: PATIENT WAS FASTINGP ERFORMED BY: BRE [facility] Qpwwtw8542 [address] RoadDublin [place] [id number] AST [Catalytic activity/Vol] 20 [iU]/L Normal 0-40 [facility] Work Phone: Comment on above: PATIENT WAS FASTINGP ERFORMED BY: CB [facility] Ipmzzo9134 [address] RoadDublin [place] [id number] Bilirubin [Mass/Vol] 0.4 mg/dL Normal 0.0-1.2 Comp rehensive Internal Medicine Work Phone: Comment on above: PATIENT WAS FASTINGP ERFORMED BY: CB [facility] Ltsidw2768 [address] RoadAtrium Health [place]usin [place] [id number] Calcium [Mass/Vol] 9.3 mg/dL Normal 8.6-10.2 [facility] Internal Medicine Work Phone: Comment on above: PATIENT WAS FASTINGP ERFORMED BY: CB [facility] Kmqgmj0548 Schwartz Roadblin [place] [id number] Chloride [Moles/Vol] 99 mmol/L Normal 97-108 Comp rehensive Internal Medicine Work Phone: Comment on above: PATIENT WAS FASTINGP ERFORMED BY: CB [facility] Nnaxub6789 Schwartz RoadDuin [place] [id number] CO2 [Moles/Vol] 24 mmol/L Normal 20-32 [facility] Internal [facility] Work Phone: Comment on above: PATIENT WAS FASTINGP ERFORMED BY: CB [facility] Acfjbm0[address] [facility] [place] [id number] Creatinine [Mass/Vol] 1.07 mg/dL Abnormal 0.57-1.00 Com [facility] Work Phone: Comment on above: PATIENT WAS FASTINGP ERFORMED BY: CB [facility] Osmuxa[address] [facility] [id number] GFR/1.73 sq M predicted among blacks MDRD (S/P/Bld) [Vol rate/Area] 65 mL/min/{1.73_m2} Normal Comprehensiv e Internal Medicine Work Phone: Comment on above: Note: A persistent e GFR <60 mL/min/1.73 m2 (3 months or more) mayindicate chronic kidney disease. An eGFR >59 mL/min/1.73 m2 with anelevated urine protein also may indicate chronic kidney disease.Calculated using CKD-EPI formula. PATIENT WAS FASTINGP ERFORMED BY: CB [facility] Msoabm1145 [address] RoadDublin [place] [id number] GFR/1.73 sq M predicted among non-blacks CKD-EPI (S/P/Bld) [Vol rate/Area] 57 mL/min/1.73 Abnormal [facility] Internal Medicine Work Phone: Comment on above: PATIENT WAS FASTINGP ERFORMED BY: CB [facility] Qujcwm3397 [address] RoadDublin [place] [id number] Globulin (S) [Mass/Vol] 2.4 g/dL Normal 1.5-4.5 [facility] Internal Medicine Work Phone: Comment on above: PATIENT WAS FASTINGP ERFORMED BY: CB [facility] Rtyyqr9919 [address] RoadDublin [place] [id number] Glucose [Mass/Vol] 84 mg/dL Normal 65-99 [facility] Internal Medicine Work Phone: Comment on above: PATIENT WAS FASTINGP ERFORMED BY: CB [facility] Krrasv5637 [address] RoadDublin [place] [id number] Potassium [Moles/Vol] 4.4 mmol/L Normal 3.5-5.2 [facility] Internal Medicine Work Phone: Comment on above: PATIENT WAS FASTINGP ERFORMED BY: [facility] Xoiytx9885 [address] RoadDublin [place] [id number] Protein [Mass/Vol] 6.6 g/dL Normal 6.0-8.5 [facility] Internal Medicine Work Phone: Comment on above: PATIENT WAS FASTINGP ERFORMED BY: CB [facility] Butwza8081 [address] RoadDublin [place] [id number] Sodium [Moles/Vol] 137 mmol/L Normal 135-145 [facility] Internal Medicine Work Phone: Comment on above: PATIENT WAS FASTINGP ERFORMED BY: CB [facility] Boosyz3747 [address] RoadDublin [place] [id number] Urea nitrogen [Mass/Vol] 17 mg/dL Normal 8-27 [facility] Internal Medicine Work Phone: Comment on above: PATIENT WAS FASTINGP ERFORMED BY: [employer] Cgevfm2637 [address] RoadDublin [place] [id number] Urea nitrogen/Creatinine [Mass ratio] 16 mg/mg Normal 11-26 [facility] Work Phone: Comment on above: PATIENT WAS FASTINGP ERFORMED BY: [employer] Technologiesrp Erscyd3370 [address] RoadDublin [place] [id number] VITAMIN B-12 (CYANOCOBALAMIN ) (74748)Ordered By: Warehouse Trainer on 03-04-2011 Cobalamin (Vitamin B12) [Mass/Vol] 368 pg/mL Normal 211-946 [facility] Work Phone: Comment on above: PATIENT WAS FASTINGP ERFORMED BY: GANTEC Anjdck[address] Breaktime Studiosblin [place] [id number] Vitamin D Hydroxy (96936)Ord ered By: Warehouse Trainer on 03-04-2011 Calcitriol [Mass/Vol] 33.7 ng/mL Normal 32.0-100.0 [facility] prehensive Internal Medicine Work Phone: Comment on above: Recent studies consi maria luisa the lower limit of 32.0 ng/mL to be athreshold for optimal health.Abelardo HODGES. J Nutr. 2004;135(2):317-22. PATIENT WAS FASTINGP ERFORMED BY: [employer] Technologiesrp Uwsmld[address] [facility] HospitalDuin [place] [id number] Homocysteine, Plasma (82750) Ordered By: Warehouse Trainer on 10-24-2010 Homocysteine [Moles/Vol] 14.1 umol/L Normal 0.0-15.0 [facility] Work Phone: Comment on above: PATIENT NOT FASTINGP ERFORMED BY: [place] 184367 [facility] [id number] BY: [employer] Hhdivj6345 Schwartz RoadDublin [place] [id number] Methylmalonic acid, serum 83 921Ordered By: Warehouse Trainer on 10-24-2010 Methylmalonate Ql (U) 192 nmol/L Normal 73-376 [facility] prehensive Internal Medicine Work Phone: Comment on above: The reference range for methylmalonic acid has been set at +3sd abovethe mean for healthy blood bank donors. In the clinical assessment ofpatients with megaloblastic anemias a cutoff of +3sd provides greaterspecificity in the diagnosis of the vitamin deficiency states,despite the sacrifice of some sensitivity. PATIENT NOT FASTINGP ERFORMED BY: [place] 184367 [facility] [id number] BY: [facility]6370 [facility] [id number] Information: 281800,[id number] SUNNY CULTURE-OTHER (75033)Ord ered By: Warehouse Trainer on 06-01-2010 Bacteria identified Respiratory culture Nom (Unsp spec) RRF Normal [facility] Work Phone: Comment on above: Routine respiratory venita PATIENT NOT FASTINGP ERFORMED BY: [facility]6370 [facility] [id number] Information: SRC:VIK [id number] Bacteria identified Respiratory culture Nom (Unsp spec) Final report Normal [facility] Work Phone: Comment on above: PATIENT NOT FASTINGP ERFORMED BY: LabUniversity [facility]West6370 [facility] [id number] Information: SRC:VIK [id number] Rapid Strep Test, Office (79 100)Ordered By: Aruna Maria on 06-01-2010 S. pyogenes Ag IA Ql (Unsp spec) Negative Normal [facility] Work Phone: CBC WITH MANUAL DIFF (01335) Ordered By: Warehouse Trainer on 12-15-2009 Basophils (Bld) [#/Vol] 0.0 {x10E3/uL} Normal 0.0-0.2 [facility] Work Phone: Comment on above: PATIENT NOT FASTINGP ERFORMED BY: LabUniversity [facility]West6370 [facility] [id number] Information: 738690,C78739 Basophils/100 WBC (Bld) 1 % Normal 0-3 [facility] Work Phone: Comment on above: PATIENT NOT FASTINGP ERFORMED BY: BRE MataSt. Francis Medical CenterEkaykf3688 [facility] [id number] Information: 559844,S81514 Eosinophils (Bld) [#/Vol] 0.1 {x10E3/uL} Normal 0.0-0.4 [facility] Work Phone: Comment on above: PATIENT NOT FASTINGP ERFORMED BY: BRE Baxter[address] [id number] Information: 579755,C13268 Eosinophils/100 WBC (Bld) 2 % Normal 0-7 [facility] Work Phone: Comment on above: PATIENT NOT FASTINGP ERFORMED BY: BRE Mata Fpvcsw[address] [id number] Information: [id number],P39030 Erythrocyte distribution width (RBC) [Ratio] 13.4 % Normal 11.7-15.0 [facility] Work Phone: Comment on above: PATIENT NOT FASTINGP ERFORMED BY: BRE Baxter[address] [id number] Information: 882343,D52510 Hematocrit (Bld) [Volume fraction] 39.7 % Normal 34.0-44.0 [facility] Work Phone: Comment on above: PATIENT NOT FASTINGP ERFORMED BY: BRE [address] [id number] Information: 324074,O98352 Hemoglobin (Bld) [Mass/Vol] 13.8 g/dL Normal 11.5-15.0 [facility] Work Phone: Comment on above: PATIENT NOT FASTINGP ERFORMED BY: BRE BaxterDaniel [place] 8612270 [facility] [id number] Information: 616342,A23367 Lymphocytes (Bld) [#/Vol] 1.0 {x10E3/uL} Normal 0.7-4.5 [facility] Work Phone: Comment on above: PATIENT NOT FASTINGP ERFORMED BY: BRE MataSt. Francis Medical CenterEpwfob6638 [facility] [id number] Information: 074296,R07953 Lymphocytes/100 WBC (Bld) 31 % Normal 14-46 [facility] Work Phone: Comment on above: PATIENT NOT FASTINGP ERFORMED BY: BRE MataAnthony [place] 6490170 [facility] [id number] Information: 961905,[id number] MCH (RBC) [Entitic mass] 33.5 pg Normal 27.0-34.0 [facility] Work Phone: Comment on above: PATIENT NOT FASTINGP ERFORMED BY: BRE Esperanza Bdfdpl180[address] [id number] Information: 739392,C27868 MCHC (RBC) [Mass/Vol] 34.7 g/dL Normal 32.0-36.0 [facility] Internal Medicine Work Phone: Comment on above: PATIENT NOT FASTINGP ERFORMED BY: BRE EsperanzaAnthony [place] 6490170 [facility] [id number] Information: 894978,A34184 MCV (RBC) [Entitic vol] 97 fL Normal 80-98 [facility] Work Phone: Comment on above: PATIENT NOT FASTINGP ERFORMED BY: BRE [address] [id number] Information: 284286,I41681 Monocytes (Bld) [#/Vol] 0.4 {x10E3/uL} Normal 0.1-1.0 [facility] Work Phone: Comment on above: PATIENT NOT FASTINGP ERFORMED BY: BRE LabCoAnthony Ville 6490170 [facility] [id number] Information: 278359,S47210 Monocytes/100 WBC (Bld) 13 % Normal 4-13 [facility] Work Phone: Comment on above: PATIENT NOT FASTINGP ERFORMED BY: [facility]6370 [facility] [id number] Information: 254336,V11618 Neutrophils (Bld) [#/Vol] 1.6 {x10E3/uL} Abnormal 1.8-7.8 [facility] Internal Medicine Work Phone: Comment on above: PATIENT NOT FASTINGP ERFORMED BY: [place] 0518770 [facility] [id number] Information: 823093,M11793 Neutrophils/100 WBC (Bld) 53 % Normal 40-74 [facility] Internal Medicine Work Phone: Comment on above: PATIENT NOT FASTINGP ERFORMED BY: [place] 0518770 [facility] [id number] Information: [id number] Platelets (Bld) [#/Vol] 232 {x10E3/uL} Normal 140-415 [facility] Internal Medicine Work Phone: Comment on above: PATIENT NOT FASTINGP ERFORMED BY: [facility]6[address] [facility] [id number] Information: [id number] RBC (Bld) [#/Vol] 4.12 {x10E6/uL} Normal 3.80-5.10 [facility] Internal Medicine Work Phone: Comment on above: PATIENT NOT FASTINGP ERFORMED BY: [facility]6[address] [facility] [id number] Information: [id number] WBC (Bld) [#/Vol] 3.1 {x10E3/uL} Abnormal 4.0-10.5 [facility] Internal Medicine Work Phone: Comment on above: PATIENT NOT FASTINGP ERFORMED BY: [facility]6[address] [facility] [id number] Information: [id number] Rapid Strep Test, Office (00 360)Ordered By: Nancy Morris on 04-14-2008 S. pyogenes Ag IA Ql (Unsp spec) Negative Normal [facility] Work Phone: Vital Signs Date Time Vital Sign Value Performing Clinician Facility 12-17-2022 13:56-0400 Body height 167.[address] Maurilio Castillo Work Phone: [facility] 12-17-2022 13:54-0400 Body mass index (BMI) [Ratio] 26.3 kg/m2 Dr. Maurilio Castillo Work Phone: [facility] 12-17-2022 13:54-0400 Body temperature 98.2 [degF] Dr. Maurilio Castillo Work Phone: [facility] 12-17-2022 13:54-0400 Body weight 74.[address] Maurilio Castillo Work Phone: [facility] 12-17-2022 13:54-0400 Diastolic blood pressure 88 mm[Hg] Dr. Maurilio Castillo Work Phone: [facility] 12-17-2022 13:54-0400 Heart rate 70 /min Dr. Maurilio Castillo Work Phone: [facility] 12-17-2022 13:54-0400 Respiratory rate 16 /min Dr. Maurilio Castillo Work Phone: [facility] 12-17-2022 13:54-0400 SaO2% (BldA) [Mass fraction] 98 % Dr. Maurilio Castillo Work Phone: [facility] 12-17-2022 13:54-0400 Systolic blood pressure 147 mm[Hg] Dr. Maurilio Castillo Work Phone: [facility] 12-12-2021 13:56-0400 Body height 167.[address] Maurilio Castillo Work Phone: [facility] Work Phone: 12-12-2021 13:56-0400 Body mass index (BMI) [Ratio] 25.8 kg/m2 Dr. Maurilio Castillo Work Phone: [facility] Work Phone: 12-12-2021 13:56-0400 Body temperature 98.1 [degF] Dr. Maurilio Castillo Work Phone: [facility] Work Phone: 12-12-2021 13:56-0400 Body weight 72.[address] Maurilio Castillo Work Phone: [facility] Work Phone: 12-12-2021 13:56-0400 Diastolic blood pressure 84 mm[Hg] Dr. Maurilio Castillo Work Phone: [facility] Work Phone: 12-12-2021 13:56-0400 Heart rate 101 /min Dr. Maurilio Castillo Work Phone: [facility] Work Phone: 12-12-2021 13:56-0400 Respiratory rate 15 /min Dr. Maurilio Castillo Work Phone: [facility] Work Phone: 12-12-2021 13:56-0400 SaO2% (BldA) [Mass fraction] 96 % Dr. Maurilio Castillo Work Phone: [facility] Work Phone: 12-12-2021 13:56-0400 Systolic blood pressure 133 mm[Hg] Dr. Maurilio Castillo Work Phone: [facility] Work Phone: 12-12-2021 13:56-0400 Body height 167.[address] Maurilio Castillo Work Phone: [facility] Work Phone: 12-12-2021 13:56-0400 Body mass index (BMI) [Ratio] 25.8 kg/m2 Dr. Maurilio Castillo Work Phone: [facility] Work Phone: 12-12-2021 13:56-0400 Body temperature 98.1 [degF] Dr. Maurilio Castillo Work Phone: [facility] Work Phone: 12-12-2021 13:56-0400 Body weight 72.[address] Maurilio Castillo Work Phone: [facility] Work Phone: 12-12-2021 13:56-0400 Diastolic blood pressure 84 mm[Hg] Dr. Maurilio Casitllo Work Phone: [facility] Work Phone: 12-12-2021 13:56-0400 Heart rate 101 /min Dr. Maurilio Castillo Work Phone: [facility] Work Phone: 12-12-2021 13:56-0400 Respiratory rate 15 /min Dr. Maurilio Castillo Work Phone: [facility] Work Phone: 12-12-2021 13:56-0400 SaO2% (BldA) [Mass fraction] 96 % Dr. Maurilio Castillo Work Phone: [facility] Work Phone: 12-12-2021 13:56-0400 Systolic blood pressure 133 mm[Hg] Dr. Maurilio Castillo Work Phone: [facility] Work Phone: 12-13-2020 09:23-0400 Body mass index (BMI) [Ratio] 26.8 kg/m2 Dr. Maurilio Castillo Work Phone: [facility] 12-13-2020 09:23-0400 Body temperature 97.5 [degF] Dr. Maurilio Castillo Work Phone: [facility] 12-13-2020 09:23-0400 Body weight 77.[address] Maurilio Castillo Work Phone: [facility] 12-13-2020 09:23-0400 Diastolic blood pressure 83 mm[Hg] Dr. Maurilio Castillo Work Phone: [facility] 12-13-2020 09:23-0400 Heart rate 85 /min Dr. Maurilio Castillo Work Phone: [facility] 12-13-2020 09:23-0400 Respiratory rate 16 /min Dr. Maurilio Castillo Work Phone: [facility] 12-13-2020 09:23-0400 SaO2% (BldA) [Mass fraction] 98 % Dr. Maurilio Castillo Work Phone: [facility] 12-13-2020 09:23-0400 Systolic blood pressure 118 mm[Hg] Dr. Maurilio Castillo Work Phone: [facility] 07-02-2018 13:17-0500 BMI (Body Mass Index) 29.41 kg/m2 Moira Roxy [facility] Internal Medicine Work Phone: 07-02-2018 13:17-0500 Body weight 83.92 kg Moiraevelia Ramirezon [facility] Internal Medicine Work Phone: 07-02-2018 13:17-0500 BP Diastolic 88 mm[Hg] Moira Roxy [facility] Internal Medicine Work Phone: Comment on above: Patient Position: Sitting; Cuff Location : Left Arm; Cuff Size: Large 07-02-2018 13:17-0500 BP Systolic 124 mm[Hg] Moira Roxy [facility] Internal Medicine Work Phone: Comment on above: Patient Position: Sitting; Cuff Location : Left Arm; Cuff Size: Large 07-02-2018 13:17-0500 BSA (Body Surface Area) 1.95 m2 Moira Ramirezon [facility] Internal Medicine Work Phone: 07-02-2018 13:17-0500 Height 168.91 cm Moira Roxy [facility] Internal Medicine Work Phone: 07-02-2018 13:17-0500 Pulse (Heart Rate) 78 /min Moira Roxy [facility] Internal Medicine Work Phone: Comment on above: Pattern: Regular 07-02-2018 13:17-0500 Pulse Oximetry 98 % Moira Ramsey [facility] Internal Medicine Work Phone: Comment on above: Room air 07-02-2018 13:17-0500 Respiratory Rate 18 /min Moira Ramsey [facility] Internal Medicine Work Phone: Comment on above: Pattern: Unlabored 07-02-2018 13:17-0500 Weight 83.92 kg Moira Ramsey [facility] Internal Medicine Work Phone: 05-21-2018 09:38-0400 BMI (Body Mass Index) 30.25 kg/m2 Moira Ramsey [facility] Internal Medicine Work Phone: 05-21-2018 09:38-0400 Body Temperature 97.8 [degF] Moira Ramsey [facility] Internal Medicine Work Phone: Comment on above: Method: Temporal 05-21-2018 09:38-0400 Body weight 86.3 kg Moira Ramsey [facility] Internal Medicine Work Phone: 05-21-2018 09:38-0400 BP Diastolic 84 mm[Hg] Moira Ramsey [facility] Internal Medicine Work Phone: Comment on above: Patient Position: Sitting; Cuff Location : Left Arm; Cuff Size: Large 05-21-2018 09:38-0400 BP Systolic 118 mm[Hg] Moira Ramsey [facility] Internal Medicine Work Phone: Comment on above: Patient Position: Sitting; Cuff Location : Left Arm; Cuff Size: Large 05-21-2018 09:38-0400 BSA (Body Surface Area) 1.97 m2 Moira Ramsey [facility] Internal Medicine Work Phone: 05-21-2018 09:38-0400 Height 168.91 cm Moira Ramsey [facility] Internal Medicine Work Phone: 05-21-2018 09:38-0400 Pulse (Heart Rate) 84 /min Moira Ramsey [facility] Internal Medicine Work Phone: Comment on above: Pattern: Regular 05-21-2018 09:38-0400 Pulse Oximetry 98 % Moira Ramsey [facility] Internal Medicine Work Phone: Comment on above: Room air 05-21-2018 09:38-0400 Respiratory Rate 18 /min Moira Ramsey [facility] Internal Medicine Work Phone: Comment on above: Pattern: Unlabored 05-21-2018 09:38-0400 Weight 86.3 kg Moira Ramsey [facility] Internal Medicine Work Phone: 03-19-2018 13:56-0400 BMI (Body Mass Index) 29.73 kg/m2 Moira Ramsey [facility] Internal Medicine Work Phone: 03-19-2018 13:56-0400 Body Temperature 98.5 [degF] Moira Ramsey [facility] Internal Medicine Work Phone: Comment on above: Method: Temporal 03-19-2018 13:56-0400 Body weight 84.82 kg Moira Rasmey [facility] Internal Medicine Work Phone: 03-19-2018 13:56-0400 BP Diastolic 74 mm[Hg] Moira Ramsey [facility] Internal Medicine Work Phone: Comment on above: Patient Position: Sitting; Cuff Location : Left Arm; Cuff Size: Standard 03-19-2018 13:56-0400 BP Systolic 128 mm[Hg] Moira Ramsey [facility] Internal Medicine Work Phone: Comment on above: Patient Position: Sitting; Cuff Location : Left Arm; Cuff Size: Standard 03-19-2018 13:56-0400 BSA (Body Surface Area) 1.95 m2 Moira Ramsey [facility] Internal Medicine Work Phone: 03-19-2018 13:56-0400 Height 168.91 cm Moira Ramsey [facility] Internal Medicine Work Phone: 03-19-2018 13:56-0400 Pulse (Heart Rate) 101 /min Moira Ramsey [facility] Internal Medicine Work Phone: Comment on above: Pattern: Regular 03-19-2018 13:56-0400 Pulse Oximetry 97 % Moira Ramsey [facility] Internal Medicine Work Phone: Comment on above: Room air 03-19-2018 13:56-0400 Respiratory Rate 16 /min Moira Ramsey [facility] Internal Medicine Work Phone: Comment on above: Pattern: Unlabored 03-19-2018 13:56-0400 Weight 84.82 kg Moira Ramsey [facility] Internal Medicine Work Phone: 01-15-2018 10:03-0400 BMI (Body Mass Index) 29.47 kg/m2 Moira Ramsey [facility] Internal Medicine Work Phone: 01-15-2018 10:03-0400 Body weight 84.09 kg Moira Ramsey [facility] Internal Medicine Work Phone: 01-15-2018 10:03-0400 BP Diastolic 76 mm[Hg] Moira Ramsey [facility] Internal Medicine Work Phone: Comment on above: Patient Position: Sitting; Cuff Location : Left Arm; Cuff Size: Large 01-15-2018 10:03-0400 BP Systolic 134 mm[Hg] Moira Ramsey [facility] Internal Medicine Work Phone: Comment on above: Patient Position: Sitting; Cuff Location : Left Arm; Cuff Size: Large 01-15-2018 10:03-0400 BSA (Body Surface Area) 1.95 m2 Moira Ramsey [facility] Internal Medicine Work Phone: 01-15-2018 10:03-0400 Height 168.91 cm Moira Ramsey [facility] Internal Medicine Work Phone: 01-15-2018 10:03-0400 Pulse (Heart Rate) 78 /min Moira Ramsey [facility] Internal Medicine Work Phone: Comment on above: Pattern: Regular 01-15-2018 10:03-0400 Pulse Oximetry 97 % Moira Ramsey [facility] Internal Medicine Work Phone: Comment on above: Room air 01-15-2018 10:03-0400 Respiratory Rate 18 /min Moira Ramsey [facility] Internal Medicine Work Phone: Comment on above: Pattern: Unlabored 01-15-2018 10:03-0400 Weight 84.09 kg Moira Ramsey [facility] Internal Medicine Work Phone: 12-03-2017 10:22-0400 BMI [...] 11-19-2017 08:49-0400 BP Systolic 102 mm[Hg] Moira aRmsey [facility] Internal Medicine Work Phone: Comment on above: Patient Position: Sitting; Cuff Location : Left Arm; Cuff Size: Standard 11-19-2017 08:49-0400 BSA (Body Surface Area) 1.96 m2 Moira Ramsey [facility] Internal Medicine Work Phone: 11-19-2017 08:49-0400 Height 168.91 cm Moira Ramsey [facility] Internal Medicine Work Phone: 11-19-2017 08:49-0400 Pulse (Heart Rate) 122 /min Moira Ramsey [facility] Internal Medicine Work Phone: Comment on above: Pattern: Regular 11-19-2017 08:49-0400 Pulse Oximetry 95 % Moira Ramsey [facility] Internal Medicine Work Phone: Comment on above: Room air 11-19-2017 08:49-0400 Respiratory Rate 18 /min Moira Ramsey [facility] Internal Medicine Work Phone: Comment on above: Pattern: Unlabored 11-19-2017 08:49-0400 Weight 84.94 kg Moira Ramsey [facility] Internal Medicine Work Phone: 10-14-2017 09:19-0500 BMI (Body Mass Index) 29.77 kg/m2 Moira Ramsey [facility] Internal Medicine Work Phone: 10-14-2017 09:19-0500 Body weight 84.94 kg Moira Ramsey [facility] Internal Medicine Work Phone: 10-14-2017 09:19-0500 BP Diastolic 78 mm[Hg] Moira Ramsey [facility] Internal Medicine Work Phone: Comment on above: Patient Position: Sitting; Cuff Location : Left Arm; Cuff Size: Standard 10-14-2017 09:19-0500 BP Systolic 122 mm[Hg] Moira Ramsey [facility] Internal Medicine Work Phone: Comment on above: Patient Position: Sitting; Cuff Location : Left Arm; Cuff Size: Standard 10-14-2017 09:19-0500 BSA (Body Surface Area) 1.96 m2 Moira Ramsey [facility] Internal Medicine Work Phone: 10-14-2017 09:19-0500 Height 168.91 cm Moira Ramsey [facility] Internal Medicine Work Phone: 10-14-2017 09:19-0500 Pulse (Heart Rate) 84 /min Moira Ramsey [facility] Internal Medicine Work Phone: Comment on above: Pattern: Regular 10-14-2017 09:19-0500 Pulse Oximetry 97 % Moira Ramsey [facility] Internal Medicine Work Phone: Comment on above: Room air 10-14-2017 09:19-0500 Respiratory Rate 18 /min Moira Ramsey [facility] Internal Medicine Work Phone: Comment on above: Pattern: Unlabored 10-14-2017 09:19-0500 Weight 84.94 kg Moira Ramsey [facility] Internal Medicine Work Phone: 09-24-2017 13:49-0500 BMI (Body Mass Index) 29.77 kg/m2 Moira Ramsey [facility] Internal Medicine Work Phone: 09-24-2017 13:49-0500 Body weight 84.94 kg Moira Ramsey [facility] Internal Medicine Work Phone: 09-24-2017 13:49-0500 BP Diastolic 82 mm[Hg] Moira Ramsey [facility] Internal Medicine Work Phone: Comment on above: Patient Position: Sitting; Cuff Location : Left Arm; Cuff Size: Large 09-24-2017 13:49-0500 BP Systolic 120 mm[Hg] Moira Ramsey [facility] Internal Medicine Work Phone: Comment on above: Patient Position: Sitting; Cuff Location : Left Arm; Cuff Size: Large 09-24-2017 13:49-0500 BSA (Body Surface Area) 1.96 m2 Moira Ramsey [facility] Internal Medicine Work Phone: 09-24-2017 13:49-0500 Height 168.91 cm Moira Ramsey [facility] Internal Medicine Work Phone: 09-24-2017 13:49-0500 Pulse (Heart Rate) 80 /min Moira Ramsey [facility] Internal Medicine Work Phone: Comment on above: Pattern: Regular 09-24-2017 13:49-0500 Pulse Oximetry 96 % Moira Ramsey [facility] Internal Medicine Work Phone: Comment on above: Room air 09-24-2017 13:49-0500 Respiratory Rate 18 /min Moira Ramsey [facility] Internal Medicine Work Phone: Comment on above: Pattern: Unlabored 09-24-2017 13:49-0500 Weight 84.94 kg Moira Ramsey [facility] Internal Medicine Work Phone: 05-21-2017 10:29-0400 BMI (Body Mass Index) 29.41 kg/m2 Moira Ramsey [facility] Internal Medicine Work Phone: 05-21-2017 10:29-0400 Body weight 83.92 kg Moira Ramsey [facility] Internal Medicine Work Phone: 05-21-2017 10:29-0400 BP Diastolic 80 mm[Hg] Moira Ramsey [facility] Internal Medicine Work Phone: Comment on above: Patient Position: Sitting; Cuff Location : Left Arm; Cuff Size: Standard 05-21-2017 10:290400 BP Systolic 122 mm[Hg] Moira Ramsey [facility] Internal Medicine Work Phone: Comment on above: Patient Position: Sitting; Cuff Location : Left Arm; Cuff Size: Standard 05-21-2017 10:29-0400 BSA (Body Surface Area) 1.95 m2 Moira Ramsey [facility] Internal Medicine Work Phone: 05-21-2017 10:29-0400 Height 168.91 cm Moira Ramsey [facility] Internal Medicine Work Phone: 05-21-2017 10:29-0400 Pulse (Heart Rate) 72 /min Moira Ramsey [facility] Internal Medicine Work Phone: Comment on above: Pattern: Regular 05-21-2017 10:29-0400 Pulse Oximetry 96 % Moira Ramsey [facility] Internal Medicine Work Phone: Comment on above: Room air 05-21-2017 10:290400 Respiratory Rate 18 /min Moira Ramsey [facility] Internal Medicine Work Phone: Comment on above: Pattern: Unlabored 05-21-2017 10: Weight 83.92 kg Moira Ramsey [facility] Internal Medicine Work Phone: 03-24-2017 14:12-0400 BMI (Body Mass Index) 29.25 kg/m2 Moira Ramsey [facility] Internal Medicine Work Phone: 03-24-2017 14:12-0400 Body weight 83.46 kg Moira Ramsey [facility] Internal Medicine Work Phone: 03-24-2017 14:12-0400 BP Diastolic 82 mm[Hg] Moira Ramsey [facility] Internal Medicine Work Phone: Comment on above: Patient Position: Sitting; Cuff Location : Left Arm; Cuff Size: Large 03-24-2017 14:12-0400 BP Systolic 118 mm[Hg] Moira Ramsey [facility] Internal Medicine Work Phone: Comment on above: Patient Position: Sitting; Cuff Location : Left Arm; Cuff Size: Large 03-24-2017 14:12-0400 BSA (Body Surface Area) 1.94 m2 Moira Ramsey [facility] Internal Medicine Work Phone: 03-24-2017 14:120400 Height 168.91 cm Moira Ramsey [facility] Internal Medicine Work Phone: 03-24-2017 14:12-0400 Pulse (Heart Rate) 68 /min Moira Ramsey [facility] Internal Medicine Work Phone: Comment on above: Pattern: Regular 03-24-2017 14:12-0400 Pulse Oximetry 96 % Moira Ramsey [facility] Internal Medicine Work Phone: Comment on above: Room air 03-24-2017 14:12-0400 Respiratory Rate 18 /min Moira Ramsey [facility] Internal Medicine Work Phone: Comment on above: Pattern: Unlabored 03-24-2017 14:12-0400 Weight 83.46 kg Moira Ramsey [facility] Internal Medicine Work Phone: 01-07-2017 10:47-0400 BMI (Body Mass Index) 28.78 kg/m2 [facility] Work Phone: 01-07-2017 10:47-0400 Body Temperature 97.9 [degF] Moira Ramsey [facility] Internal Medicine Work Phone: 01-07-2017 10:47-0400 Body weight 82.1 kg Moira Ramsey [facility] Internal Medicine Work Phone: 01-07-2017 10:47-0400 BP Diastolic 88 mm[Hg] Moira Ramsey [facility] Internal Medicine Work Phone: Comment on above: Patient Position: Sitting; Cuff Location : Left Arm; Cuff Size: Standard 01-07-2017 10:47-0400 BP Systolic 122 mm[Hg] Moira Ramsey [facility] Internal Medicine Work Phone: Comment on above: Patient Position: Sitting; Cuff Location : Left Arm; Cuff Size: Standard 01-07-2017 10:47-0400 BSA (Body Surface Area) 1.93 m2 Moira Ramsey [facility] Internal Medicine Work Phone: 01-07-2017 10:47-0400 Height 168.91 cm Moira Ramsey [facility] Internal Medicine Work Phone: 01-07-2017 10:47-0400 Pulse (Heart Rate) 82 /min Moira Ramsey [facility] Internal Medicine Work Phone: Comment on above: Pattern: Regular 01-07-2017 10:47-0400 Pulse Oximetry 94 % Moira Ramsey [facility] Internal Medicine Work Phone: Comment on above: Room air 01-07-2017 10:47-0400 Respiratory Rate 17 /min Moira Ramsey [facility] Internal Medicine Work Phone: Comment on above: Pattern: Unlabored 01-07-2017 10:47-0400 Weight 82.1 kg Moira Ramsey [facility] Internal Medicine Work Phone: 11-20-2016 10:130400 BMI (Body Mass Index) 28.8 kg/m2 Moira Thayer cheri Internal Medicine Work Phone: 11-20-2016 10:130400 Body weight 82.16 kg Moira Ramsey [facility] Internal Medicine Work Phone: 11-20-2016 10:13-0400 BP Diastolic 98 mm[Hg] Moira Ramsey [facility] Internal Medicine Work Phone: Comment on above: Patient Position: Sitting; Cuff Location : Left Arm; Cuff Size: Large 11-20-2016 10:13-0400 BP Systolic 142 mm[Hg] Moira Ramsey [facility] Internal Medicine Work Phone: Comment on above: Patient Position: Sitting; Cuff Location : Left Arm; Cuff Size: Large 11-20-2016 10:130400 BSA (Body Surface Area) 1.93 m2 Moira Ramsey [facility] Internal Medicine Work Phone: 11-20-2016 10:130400 Height 168.91 cm Moira Ramsey [facility] Internal Medicine Work Phone: 11-20-2016 10:13-0400 Pulse (Heart Rate) 77 /min Moira Ramsey [facility] Internal Medicine Work Phone: Comment on above: Pattern: Regular 11-20-2016 10:0400 Pulse Oximetry 97 % Moira Ramsey [facility] Internal Medicine Work Phone: Comment on above: Room air 11-20-2016 10:130400 Respiratory Rate 18 /min Moira Ramsey [facility] Internal Medicine Work Phone: Comment on above: Pattern: Unlabored 11-20-2016 10:13-0400 Weight 82.16 kg Moira Ramsey [facility] Internal Medicine Work Phone: 10-30-2016 10:24-0500 BMI (Body Mass Index) 29.15 kg/m2 Moira Thayer cheri Internal Medicine Work Phone: 10-30-2016 10:24-0500 Body weight 83.18 kg Moira Ramsey [facility] Internal Medicine Work Phone: 10-30-2016 10:24-0500 BP Diastolic 82 mm[Hg] Moira Ramsey [facility] Internal Medicine Work Phone: Comment on above: Patient Position: Sitting; Cuff Location : Left Arm; Cuff Size: Large 10-30-2016 10:24-0500 BP Systolic 138 mm[Hg] Moiar Ramsey [facility] Internal Medicine Work Phone: Comment on above: Patient Position: Sitting; Cuff Location : Left Arm; Cuff Size: Large 10-30-2016 10:24-0500 BSA (Body Surface Area) 1.94 m2 Moira Ramsey [facility] Internal Medicine Work Phone: 10-30-2016 10:24-0500 Height 168.91 cm Moira Ramsey [facility] Internal Medicine Work Phone: 10-30-2016 10:24-0500 Pulse (Heart Rate) 68 /min Moira Ramsey [facility] Internal Medicine Work Phone: Comment on above: Pattern: Regular 10-30-2016 10:24-0500 Pulse Oximetry 98 % Moira Ramsey [facility] Internal Medicine Work Phone: Comment on above: Room air 10-30-2016 10:24-0500 Respiratory Rate 18 /min Moira Ramsey [facility] Internal Medicine Work Phone: Comment on above: Pattern: Unlabored 10-30-2016 10:24-0500 Weight 83.18 kg Moira Ramsey [facility] Internal Medicine Work Phone: 08-29-2016 13:07-0500 BMI (Body Mass Index) 29.17 kg/m2 Moira Ramsey [facility] Internal Medicine Work Phone: 08-29-2016 13:07-0500 Body weight 83.24 kg Moira Ramsey [facility] Internal Medicine Work Phone: 08-29-2016 13:07-0500 BP Diastolic 88 mm[Hg] Moira Ramsey [facility] Internal Medicine Work Phone: Comment on above: Patient Position: Sitting; Cuff Location : Left Arm; Cuff Size: Large 08-29-2016 13:07-0500 BP Systolic 128 mm[Hg] Moira Maria Internal Medicine Work Phone: Comment on above: Patient Position: Sitting; Cuff Location : Left Arm; Cuff Size: Large 08-29-2016 13:07-0500 BSA (Body Surface Area) 1.94 m2 Moira Maria Internal Medicine Work Phone: 08-29-2016 13:07-0500 Height 168.91 cm Moira Maria Internal Medicine Work Phone: 08-29-2016 13:07-0500 Pulse (Heart Rate) 81 /min Moira Maria Internal Medicine Work Phone: Comment on above: Pattern: Regular 08-29-2016 13:07-0500 Pulse Oximetry 98 % Moira Ramsey [facility] Internal Medicine Work Phone: Comment on above: Room air 08-29-2016 13:07-0500 Respiratory Rate 18 /min Miora Ramsey [facility] Internal Medicine Work Phone: Comment on above: Pattern: Unlabored 08-29-2016 13:07-0500 Weight 83.24 kg Moira Ramsey [facility] Internal Medicine Work Phone: 06-27-2016 15:01-0400 BP Diastolic 80 mm[Hg] Moira Ramsey [facility] Internal Medicine Work Phone: Comment on above: Patient Position: Sitting; Cuff Location : Left Arm; Cuff Size: Standard 06-27-2016 15:01-0400 BP Systolic 138 mm[Hg] Moira Ramsey [facility] Internal Medicine Work Phone: Comment on above: Patient Position: Sitting; Cuff Location : Left Arm; Cuff Size: Standard 06-27-2016 15:01-0400 Pulse (Heart Rate) 97 /min Moira Maria Internal Medicine Work Phone: Comment on above: Pattern: Regular 06-27-2016 15:01-0400 BP Diastolic 80 mm[Hg] Moira Ramsey [facility] Work Phone: Comment on above: Patient Position: Sitting; Cuff Location : Left Arm; Cuff Size: Standard 06-27-2016 15:01-0400 BP Systolic 142 mm[Hg] [facility]: Comment on above: Patient Position: Sitting; Cuff Location : Left Arm; Cuff Size: Standard 06-27-2016 15:01-0400 Pulse (Heart Rate) 74 /min Moira Ramsey [facility] Internal Medicine Work Phone: Comment on above: Pattern: Regular 06-27-2016 15:01-0400 BP Diastolic 90 mm[Hg] [facility] Work [facility]: Comment on above: Patient Position: Supine; Cuff Location: Left Arm; Cuff Size: Standard 06-27-2016 15:01-0400 BP Systolic 158 mm[Hg] [facility] Work [facility]: Comment on above: Patient Position: Supine; Cuff Location: Left Arm; Cuff Size: Standard 06-27-2016 15:01-0400 Pulse (Heart Rate) 77 /min Moira Ramsey [facility] Internal Medicine Work Phone: Comment on above: Pattern: Regular 06-27-2016 13:07-0400 BMI (Body Mass Index) 28.8 kg/m2 Moira Ramsey [facility] Internal Medicine Work Phone: 06-27-2016 13:07-0400 Body weight 82.16 kg [facility] Work Phone: 06-27-2016 13:07-0400 BP Diastolic 82 mm[Hg] [facility] Work Phone: Comment on above: Patient Position: Sitting; Cuff Location : Left Arm; Cuff Size: Standard 06-27-2016 13:07-0400 BP Systolic 128 mm[Hg] [facility] Work Phone: Comment on above: Patient Position: Sitting; Cuff Location : Left Arm; Cuff Size: Standard 06-27-2016 13:07-0400 BSA (Body Surface Area) 1.93 m2 [facility] Internal [facility] Work Phone: 06-27-2016 13:07-0400 Height 168.91 cm Moira Ramsey [facility] Internal Medicine Work Phone: 06-27-2016 13:07-0400 Pulse (Heart Rate) 100 /min Moira Ramsey [facility] Internal Medicine Work Phone: Comment on above: Pattern: Regular 06-27-2016 13:07-0400 Pulse Oximetry 97 % Moira Ramsey [facility] Internal Medicine Work Phone: Comment on above: Room air 06-27-2016 13:07-0400 Respiratory Rate 18 /min Moira Ramsey [facility] Internal Medicine Work Phone: Comment on above: Pattern: Unlabored 06-27-2016 13:07-0400 Weight 82.16 kg Moira Ramsey [facility] Internal Medicine Work Phone: 05-16-2016 13:37-0400 BMI (Body Mass Index) 29.41 kg/m2 Moira Ramsey [facility] Internal Medicine Work Phone: Comment on above: hearing wnlDr. Midol and had a glaucoma test done 05-16-2016 13:37-0400 Body Temperature 97 [degF] Moira Ramsey [facility] Internal Medicine Work Phone: Comment on above: Method: Oral hearing wnlDr. Midol and had a glaucoma test done 05-16-2016 13:37-0400 Body weight 83.92 kg Moira Ramsey [facility] Internal Medicine Work Phone: Comment on above: hearing wnlDr. Midol and had a glaucoma test done 05-16-2016 13:37-0400 BP Diastolic 62 mm[Hg] Moira Ramsey [facility] Internal Medicine Work Phone: Comment on above: Patient Position: Sitting; Cuff Location : Left Arm; Cuff Size: Large hearing wnlDr. Midol and had a glaucoma test done 05-16-2016 13:37-0400 BP Systolic 134 mm[Hg] Moira Ramsey [facility] Internal Medicine Work Phone: Comment on above: Patient Position: Sitting; Cuff Location : Left Arm; Cuff Size: Large hearing wnlDr. Midol and had a glaucoma test done 05-16-2016 13:37-0400 BSA (Body Surface Area) 1.95 m2 Moira Ramsey [facility] Internal Medicine Work Phone: Comment on above: hearing wnlDr. Midol and had a glaucoma test done 05-16-2016 13:37-0400 Height 168.91 cm [facility] Work Phone: Comment on above: hearing wnlDr. Midol and had a glaucoma test done 05-16-2016 13:37-0400 Pulse (Heart Rate) 91 /min Moira Ramsey [facility] Internal Medicine Work Phone: Comment on above: Pattern: Regular hearing wnlDr. Midol and had a glaucoma test done 05-16-2016 13:37-0400 Pulse Oximetry 95 % Moira Ramsey [facility] Internal Medicine Work Phone: Comment on above: Room air hearing wnlDr. Midol and had a glaucoma test done 05-16-2016 13:37-0400 Respiratory Rate 18 /min Moira Ramsey [facility] Internal Medicine Work Phone: Comment on above: Pattern: Unlabored hearing wnlDr. Midol and had a glaucoma test done 05-16-2016 13:37-0400 Weight 83.92 kg Moira Ramsey [facility] Internal Medicine Work Phone: Comment on above: hearing wnlDr. Midol and had a glaucoma test done 02-21-2016 11:03-0400 BMI (Body Mass Index) 28.7 kg/m2 Moira Ramsey [facility] Internal Medicine Work Phone: 02-21-2016 11:03-0400 Body weight 81.87 kg Moira Ramsey [facility] Internal Medicine Work Phone: 02-21-2016 11:03-0400 BP Diastolic 82 mm[Hg] [facility] Work Phone: Comment on above: Patient Position: Sitting; Cuff Location : Left Arm; Cuff Size: Large 02-21-2016 11:03-0400 BP Systolic 128 mm[Hg] Moira Roxy [facility] Internal Medicine Work Phone: Comment on above: Patient Position: Sitting; Cuff Location : Left Arm; Cuff Size: Large 02-21-2016 11:03-0400 BSA (Body Surface Area) 1.93 m2 Moira Ramsey [facility] Internal Medicine Work Phone: 02-21-2016 11:03-0400 Height 168.91 cm Moira Ramsey [facility] Internal Medicine Work Phone: 02-21-2016 11:03-0400 Pulse (Heart Rate) 98 /min Moira Ramsey [facility] Internal Medicine Work Phone: Comment on above: Pattern: Regular 02-21-2016 11:03-0400 Pulse Oximetry 97 % Moira Ramsey [facility] Internal Medicine Work Phone: Comment on above: Room air 02-21-2016 11:03-0400 Respiratory Rate 18 /min Moira Ramsey [facility] Internal Medicine Work Phone: Comment on above: Pattern: Unlabored 02-21-2016 11:03-0400 Weight 81.87 kg Moira Ramsey [facility] Internal Medicine Work Phone: 02-05-2016 11:30-0400 BMI (Body Mass Index) 28.7 kg/m2 Moira Ramsey [facility] Internal Medicine Work Phone: 02-05-2016 11:30-0400 Body weight 81.87 kg Moira Ramsey [facility] Internal Medicine Work Phone: 02-05-2016 11:30-0400 BP Diastolic 82 mm[Hg] Moira Ramsey [facility] Internal Medicine Work Phone: Comment on above: Patient Position: Sitting; Cuff Location : Left Arm; Cuff Size: Standard 02-05-2016 11:30-0400 BP Systolic 130 mm[Hg] Moira Ramsey [facility] Internal Medicine Work Phone: Comment on above: Patient Position: Sitting; Cuff Location : Left Arm; Cuff Size: Standard 02-05-2016 11:30-0400 BSA (Body Surface Area) 1.93 m2 Moira Ramsey [facility] Internal Medicine Work Phone: 02-05-2016 11:30-0400 Height 168.91 cm Moira Ramsey [facility] Internal Medicine Work Phone: 02-05-2016 11:30-0400 Pulse (Heart Rate) 101 /min Moira Ramsey [facility] Internal Medicine Work Phone: Comment on above: Pattern: Regular 02-05-2016 11:30-0400 Pulse Oximetry 95 % Moira Ramsey [facility] Internal Medicine Work Phone: Comment on above: Room air 02-05-2016 11:30-0400 Respiratory Rate 18 /min Moira Ramsey [facility] Internal Medicine Work Phone: Comment on above: Pattern: Unlabored 02-05-2016 11:30-0400 Weight 81.87 kg Moira Ramsey [facility] Internal Medicine Work Phone: 11-21-2015 11:01-0400 BMI (Body Mass Index) 28.78 kg/m2 Moira Ramsey [facility] Internal Medicine Work Phone: 11-21-2015 11:01-0400 Body Temperature 97.1 [degF] Moira Ramsey [facility] Internal Medicine Work Phone: Comment on above: Method: Temporal 11-21-2015 11:01-0400 Body weight 82.1 kg Moira Ramsey [facility] Internal Medicine Work Phone: 11-21-2015 11:01-0400 BP Diastolic 86 mm[Hg] Moira Ramsey [facility] Internal Medicine Work Phone: Comment on above: Patient Position: Sitting; Cuff Location : Left Arm; Cuff Size: Standard 11-21-2015 11:01-0400 BP Systolic 134 mm[Hg] Moira Ramsey [facility] Internal Medicine Work Phone: Comment on above: Patient Position: Sitting; Cuff Location : Left Arm; Cuff Size: Standard 11-21-2015 11:01-0400 BSA (Body Surface Area) 1.93 m2 Moira Ramsey [facility] Internal Medicine Work Phone: 11-21-2015 11:01-0400 Height 168.91 cm Moira Ramsey [facility] Internal Medicine Work Phone: 11-21-2015 11:01-0400 Pulse (Heart Rate) 72 /min Moira Ramsey [facility] Internal Medicine Work Phone: Comment on above: Pattern: Regular 11-21-2015 11:01-0400 Pulse Oximetry 96 % Moira Ramsey [facility] Internal Medicine Work Phone: Comment on above: Room air 11-21-2015 11:01-0400 Respiratory Rate 16 /min Moira Ramsey [facility] Internal Medicine Work Phone: Comment on above: Pattern: Unlabored 11-21-2015 11:01-0400 Weight 82.1 kg Moira Ramsey [facility] Internal Medicine Work Phone: 10-23-2015 08:55-0500 BMI (Body Mass Index) 28.62 kg/m2 Moira Ramsey [facility] Internal Medicine Work Phone: 10-23-2015 08:55-0500 Body Temperature 97.7 [degF] Moira Ramsey [facility] Internal Medicine Work Phone: 10-23-2015 08:55-0500 Body weight 81.65 kg Moira Ramsey [facility] Internal Medicine Work Phone: 10-23-2015 08:55-0500 BP Diastolic 80 mm[Hg] Moira Ramsey [facility] Internal Medicine Work Phone: Comment on above: Patient Position: Sitting; Cuff Location : Left Arm; Cuff Size: Standard 10-23-2015 08:55-0500 BP Systolic 118 mm[Hg] Moira Ramsey [facility] Internal Medicine Work Phone: Comment on above: Patient Position: Sitting; Cuff Location : Left Arm; Cuff Size: Standard 10-23-2015 08:55-0500 BSA (Body Surface Area) 1.92 m2 Moira Ramsey [facility] Internal Medicine Work Phone: 10-23-2015 08:55-0500 Height 168.91 cm Moira Ramsey [facility] Internal Medicine Work Phone: 10-23-2015 08:55-0500 Pulse (Heart Rate) 108 /min Moira Ramsey [facility] Internal Medicine Work Phone: Comment on above: Pattern: Regular 10-23-2015 08:55-0500 Pulse Oximetry 97 % Moira Ramsey [facility] Internal Medicine Work Phone: Comment on above: Room air 10-23-2015 08:55-0500 Respiratory Rate 18 /min Moira Ramsey [facility] Internal Medicine Work Phone: Comment on above: Pattern: Unlabored 10-23-2015 08:55-0500 Weight 81.65 kg Moira Ramsey [facility] Internal Medicine Work Phone: 10-03-2015 10:38-0500 BMI (Body Mass Index) 28.62 kg/m2 Moira Ramsey [facility] Internal Medicine Work Phone: 10-03-2015 10:38-0500 Body Temperature 98.1 [degF] Moira Ramsey [facility] Internal Medicine Work Phone: Comment on above: Method: Temporal 10-03-2015 10:38-0500 Body weight 81.65 kg Moira Ramsey [facility] Internal Medicine Work Phone: 10-03-2015 10:38-0500 BP Diastolic 80 mm[Hg] Moira Ramsey [facility] Internal Medicine Work Phone: Comment on above: Patient Position: Sitting; Cuff Location : Left Arm; Cuff Size: Standard 10-03-2015 10:38-0500 BP Systolic 122 mm[Hg] Moira Ramsey [facility] Internal Medicine Work Phone: Comment on above: Patient Position: Sitting; Cuff Location : Left Arm; Cuff Size: Standard 10-03-2015 10:38-0500 BSA (Body Surface Area) 1.92 m2 Moira Ramsey [facility] Internal Medicine Work Phone: 10-03-2015 10:38-0500 Height 168.91 cm Moira Ramsey [facility] Internal Medicine Work Phone: 10-03-2015 10:38-0500 Pulse (Heart Rate) 80 /min Moira Ramsey [facility] Internal Medicine Work Phone: Comment on above: Pattern: Regular 10-03-2015 10:38-0500 Pulse Oximetry 95 % Moira Ramsey [facility] Internal Medicine Work Phone: Comment on above: Room air 10-03-2015 10:38-0500 Respiratory Rate 16 /min Moira Ramsey [facility] Internal Medicine Work Phone: Comment on above: Pattern: Unlabored 10-03-2015 10:38-0500 Weight 81.65 kg Moira Ramsey [facility] Internal Medicine Work Phone: 08-28-2015 12:56-0500 BMI (Body Mass Index) 28.46 kg/m2 Moira Ramsey [facility] Internal Medicine Work Phone: 08-28-2015 12:56-0500 Body Temperature 97.5 [degF] Moira Ramsey [facility] Internal Medicine Work Phone: Comment on above: Method: Temporal 08-28-2015 12:56-0500 Body weight 81.19 kg Moira Ramsey [facility] Internal Medicine Work Phone: 08-28-2015 12:56-0500 BP Diastolic 76 mm[Hg] Moira Ramsey [facility] Internal Medicine Work Phone: Comment on above: Patient Position: Sitting; Cuff Location : Left Arm; Cuff Size: Large 08-28-2015 12:56-0500 BP Systolic 112 mm[Hg] Moira Ramsey [facility] Internal Medicine Work Phone: Comment on above: Patient Position: Sitting; Cuff Location : Left Arm; Cuff Size: Large 08-28-2015 12:56-0500 BSA (Body Surface Area) 1.92 m2 Moira Ramsey [facility] Internal Medicine Work Phone: 08-28-2015 12:56-0500 Height 168.91 cm Moira Ramsey [facility] Internal Medicine Work Phone: 08-28-2015 12:56-0500 Pulse (Heart Rate) 81 /min Moira Ramsey [facility] Internal Medicine Work Phone: Comment on above: Pattern: Regular 08-28-2015 12:56-0500 Pulse Oximetry 98 % Moira Ramsey [facility] Internal Medicine Work Phone: Comment on above: Room air 08-28-2015 12:56-0500 Respiratory Rate 16 /min Moira Ramsey [facility] Internal Medicine Work Phone: Comment on above: Pattern: Unlabored 08-28-2015 12:56-0500 Weight 81.19 kg Moira Ramsey [facility] Internal Medicine Work Phone: 07-18-2015 15:07-0500 BMI (Body Mass Index) 28.3 kg/m2 Moira Ramsey [facility] Internal Medicine Work Phone: 07-18-2015 15:07-0500 Body Temperature 97.8 [degF] Moira Ramsey [facility] Internal Medicine Work Phone: Comment on above: Method: Temporal 07-18-2015 15:07-0500 Body weight 80.74 kg Moira Ramsey [facility] Internal Medicine Work Phone: 07-18-2015 15:07-0500 BP Diastolic 86 mm[Hg] Moira Ramsey [facility] Internal Medicine Work Phone: Comment on above: Patient Position: Sitting; Cuff Location : Left Arm; Cuff Size: Standard 07-18-2015 15:07-0500 BP Systolic 138 mm[Hg] Moira Ramsey [facility] Internal Medicine Work Phone: Comment on above: Patient Position: Sitting; Cuff Location : Left Arm; Cuff Size: Standard 07-18-2015 15:07-0500 BSA (Body Surface Area) 1.91 m2 Moira Ramsey [facility] Internal Medicine Work Phone: 07-18-2015 15:07-0500 Height 168.91 cm Moira Ramsey [facility] Internal Medicine Work Phone: 07-18-2015 15:07-0500 Pulse (Heart Rate) 72 /min Moira Ramsey [facility] Internal Medicine Work Phone: Comment on above: Pattern: Regular 07-18-2015 15:07-0500 Pulse Oximetry 97 % Moira Ramsey [facility] Internal Medicine Work Phone: Comment on above: Room air 07-18-2015 15:07-0500 Respiratory Rate 16 /min Moira Ramsey [facility] Internal Medicine Work Phone: Comment on above: Pattern: Unlabored 07-18-2015 15:07-0500 Weight 80.74 kg Moira Ramsey [facility] Internal Medicine Work Phone: 05-12-2015 13:16-0400 BMI (Body Mass Index) 27.66 kg/m2 Moira Ramsey [facility] Internal Medicine Work Phone: 05-12-2015 13:16-0400 Body Temperature 98 [degF] Moira Ramsey [facility] Internal Medicine Work Phone: Comment on above: Method: Temporal 05-12-2015 13:16-0400 Body weight 78.93 kg Moira Ramsey [facility] Internal Medicine Work Phone: 05-12-2015 13:16-0400 BP Diastolic 92 mm[Hg] Moira Ramsey [facility] Internal Medicine Work Phone: Comment on above: Patient Position: Sitting; Cuff Location : Left Arm; Cuff Size: Standard 05-12-2015 13:16-0400 BP Systolic 122 mm[Hg] Moira Ramsey [facility] Internal Medicine Work Phone: Comment on above: Patient Position: Sitting; Cuff Location : Left Arm; Cuff Size: Standard 05-12-2015 13:16-0400 BSA (Body Surface Area) 1.9 m2 Moira Ramsey [facility] Internal Medicine Work Phone: 05-12-2015 13:16-0400 Height 168.91 cm Moira Ramsey [facility] Internal Medicine Work Phone: 05-12-2015 13:16-0400 Pulse (Heart Rate) 66 /min Moira Ramsey [facility] Internal Medicine Work Phone: Comment on above: Pattern: Regular 05-12-2015 13:16-0400 Pulse Oximetry 96 % Moira Ramsey [facility] Internal Medicine Work Phone: Comment on above: Room air 05-12-2015 13:16-0400 Respiratory Rate 16 /min Moira Ramsey [facility] Internal Medicine Work Phone: Comment on above: Pattern: Unlabored 05-12-2015 13:16-0400 Weight 78.93 kg Moira Ramsey [facility] Internal Medicine Work Phone: 03-20-2015 13:11-0400 BMI (Body Mass Index) 27.35 kg/m2 Moira Ramsey [facility] Internal Medicine Work Phone: 03-20-2015 13:11-0400 Body Temperature 98.2 [degF] Moira Ramsey [facility] Internal Medicine Work Phone: Comment on above: Method: Oral 03-20-2015 13:110400 Body weight 78.02 kg Moira Ramsey [facility] Internal Medicine Work Phone: 03-20-2015 13:11-0400 BP Diastolic 66 mm[Hg] Moira Ramsey [facility] Internal Medicine Work Phone: Comment on above: Patient Position: Sitting; Cuff Location : Left Arm; Cuff Size: Large 03-20-2015 13:110400 BP Systolic 92 mm[Hg] Moira Ramsey [facility] Internal Medicine Work Phone: Comment on above: Patient Position: Sitting; Cuff Location : Left Arm; Cuff Size: Large 03-20-2015 13:110400 BSA (Body Surface Area) 1.89 m2 Moira Ramsey [facility] Internal Medicine Work Phone: 03-20-2015 13:110400 Height 168.91 cm Moira Ramsey [facility] Internal Medicine Work Phone: 03-20-2015 13:11-0400 Pulse (Heart Rate) 64 /min Moira Ramsey [facility] Internal Medicine Work Phone: Comment on above: Pattern: Regular 03-20-2015 13:11-0400 Respiratory Rate 16 /min Moira Ramsey [facility] Internal Medicine Work Phone: Comment on above: Pattern: Unlabored 03-20-2015 13:11-0400 Weight 78.02 kg Moira Ramsey [facility] Work Phone: 11-14-2014 13:02-0400 BMI (Body Mass Index) 27.82 kg/m2 Moira Thayer cheri Internal Medicine Work Phone: 11-14-2014 13:02-0400 Body Temperature 97.1 [degF] Moira Ramsey [facility] Internal Medicine Work Phone: 11-14-2014 13:02-0400 Body weight 79.38 kg Moira Ramsey [facility] Internal Medicine Work Phone: 11-14-2014 13:02-0400 BP Diastolic 80 mm[Hg] Moira Ramsey [facility] Internal Medicine Work Phone: Comment on above: Patient Position: Sitting; Cuff Location : Left Arm; Cuff Size: Standard 11-14-2014 13:02-0400 BP Systolic 114 mm[Hg] Moira Ramsey [facility] Internal Medicine Work Phone: Comment on above: Patient Position: Sitting; Cuff Location : Left Arm; Cuff Size: Standard 11-14-2014 13:02-0400 BSA (Body Surface Area) 1.9 m2 Moira Ramsey [facility] Internal Medicine Work Phone: 11-14-2014 13:02-0400 Height 168.91 cm Moira Ramsey [facility] Internal Medicine Work Phone: 11-14-2014 13:02-0400 Pulse (Heart Rate) 62 /min Moira Ramsey [facility] Internal Medicine Work Phone: Comment on above: Pattern: Regular 11-14-2014 13:02-0400 Respiratory Rate 16 /min Moira Ramsey [facility] Internal Medicine Work Phone: Comment on above: Pattern: Unlabored 11-14-2014 13:02-0400 Weight 79.38 kg Moira Ramsey [facility] Internal Medicine Work Phone: 11-03-2014 08:49-0400 BMI (Body Mass Index) 28.36 kg/m2 Moira Thayer cheri Internal Medicine Work Phone: 11-03-2014 08:49-0400 Body Temperature 98.5 [degF] Moira Ramsey [facility] Internal Medicine Work Phone: Comment on above: Method: Temporal 11-03-2014 08:49-0400 Body weight 80.91 kg Moira Ramsey [facility] Internal Medicine Work Phone: 11-03-2014 08:49-0400 BP Diastolic 82 mm[Hg] Moira Ramsey [facility] Internal Medicine Work Phone: Comment on above: Patient Position: Sitting; Cuff Location : Left Arm; Cuff Size: Large 11-03-2014 08:49-0400 BP Systolic 128 mm[Hg] Moira Ramsey [facility] Internal Medicine Work Phone: Comment on above: Patient Position: Sitting; Cuff Location : Left Arm; Cuff Size: Large 11-03-2014 08:49-0400 BSA (Body Surface Area) 1.92 m2 Moira Ramsey [facility] Internal Medicine Work Phone: 11-03-2014 08:49-0400 Height 168.91 cm Moira Ramsey [facility] Internal Medicine Work Phone: 11-03-2014 08:49-0400 Pulse (Heart Rate) 96 /min Moira Ramsey [facility] Internal Medicine Work Phone: Comment on above: Pattern: Regular 11-03-2014 08:49-0400 Pulse Oximetry 97 % Moira Ramsey [facility] Internal Medicine Work Phone: Comment on above: Room air 11-03-2014 08:49-0400 Respiratory Rate 18 /min Moira Ramsey [facility] Internal Medicine Work Phone: Comment on above: Pattern: Unlabored 11-03-2014 08:49-0400 Weight 80.91 kg Moira Ramsey [facility] Internal Medicine Work Phone: 10-05-2014 10:00-0500 BMI (Body Mass Index) 28.36 kg/m2 Moira Ramsey [facility] Internal Medicine Work Phone: 10-05-2014 10:00-0500 Body Temperature 96.8 [degF] Moira Ramsey [facility] Internal Medicine Work Phone: 10-05-2014 10:00-0500 Body weight 80.91 kg Moira Ramsey [facility] Internal Medicine Work Phone: 10-05-2014 10:00-0500 BP Diastolic 82 mm[Hg] Moira Ramsey [facility] Internal Medicine Work Phone: Comment on above: Patient Position: Sitting; Cuff Location : Left Arm; Cuff Size: Standard 10-05-2014 10:00-0500 BP Systolic 122 mm[Hg] Moira Ramsey [facility] Internal Medicine Work Phone: Comment on above: Patient Position: Sitting; Cuff Location : Left Arm; Cuff Size: Standard 10-05-2014 10:00-0500 BSA (Body Surface Area) 1.92 m2 Moira Ramsey [facility] Internal Medicine Work Phone: 10-05-2014 10:00-0500 Height 168.91 cm Moira Ramsey [facility] Internal Medicine Work Phone: 10-05-2014 10:00-0500 Pulse (Heart Rate) 78 /min Moira Ramsey [facility] Internal Medicine Work Phone: Comment on above: Pattern: Regular 10-05-2014 10:00-0500 Pulse Oximetry 98 % Moira Ramsey [facility] Internal Medicine Work Phone: Comment on above: Room air 10-05-2014 10:00-0500 Respiratory Rate 16 /min Moira Ramsey [facility] Internal Medicine Work Phone: Comment on above: Pattern: Unlabored 10-05-2014 10:00-0500 Weight 80.91 kg Moira Ramsey [facility] Internal Medicine Work Phone: 07-18-2014 13:00-0500 BMI (Body Mass Index) 28.46 kg/m2 Moira Ramsey [facility] Internal Medicine Work Phone: 07-18-2014 13:00-0500 Body Temperature 98.3 [degF] Moira Ramsey [facility] Internal Medicine Work Phone: Comment on above: Method: Temporal 07-18-2014 13:00-0500 Body weight 81.19 kg Moira Ramsey [facility] Internal Medicine Work Phone: 07-18-2014 13:00-0500 BP Diastolic 78 mm[Hg] Moira Ramsey [facility] Internal Medicine Work Phone: Comment on above: Patient Position: Sitting; Cuff Location : Left Arm; Cuff Size: Large 07-18-2014 13:00-0500 BP Systolic 122 mm[Hg] Moira Ramsey [facility] Internal Medicine Work Phone: Comment on above: Patient Position: Sitting; Cuff Location : Left Arm; Cuff Size: Large 07-18-2014 13:00-0500 BSA (Body Surface Area) 1.92 m2 Moira Ramsey [facility] Internal Medicine Work Phone: 07-18-2014 13:00-0500 Height 168.91 cm Moira Ramsey [facility] Internal Medicine Work Phone: 07-18-2014 13:00-0500 Pulse (Heart Rate) 87 /min Moira Ramsey [facility] Internal Medicine Work Phone: Comment on above: Pattern: Regular 07-18-2014 13:00-0500 Pulse Oximetry 96 % Moira Ramsey [facility] Internal Medicine Work Phone: Comment on above: Room air 07-18-2014 13:00-0500 Respiratory Rate 18 /min Moira Ramsey [facility] Internal Medicine Work Phone: Comment on above: Pattern: Unlabored 07-18-2014 13:00-0500 Weight 81.19 kg Moira Ramsey [facility] Internal Medicine Work Phone: 04-13-2014 09:52-0400 BMI (Body Mass Index) 27.5 kg/m2 Moira Ramsey [facility] Internal Medicine Work Phone: 04-13-2014 09:52-0400 Body Temperature 98.5 [degF] Moira Ramsey [facility] Internal Medicine Work Phone: Comment on above: Method: Oral 04-13-2014 09:52-0400 Body weight 78.47 kg Moira Ramsey [facility] Internal Medicine Work Phone: 04-13-2014 09:52-0400 BP Diastolic 62 mm[Hg] Moira Ramsey [facility] Internal Medicine Work Phone: Comment on above: Patient Position: Sitting; Cuff Location : Left Arm; Cuff Size: Standard 04-13-2014 09:52-0400 BP Systolic 115 mm[Hg] Moira Ramsey [facility] Internal Medicine Work Phone: Comment on above: Patient Position: Sitting; Cuff Location : Left Arm; Cuff Size: Standard 04-13-2014 09:52-0400 BSA (Body Surface Area) 1.89 m2 Moira Ramsey [facility] Internal Medicine Work Phone: 04-13-2014 09:52-0400 Height 168.91 cm Moira Ramsey [facility] Internal Medicine Work Phone: 04-13-2014 09:52-0400 Pulse (Heart Rate) 75 /min Moira Ramsey [facility] Internal Medicine Work Phone: Comment on above: Pattern: Regular 04-13-2014 09:52-0400 Respiratory Rate 16 /min Moira Ramsey [facility] Internal Medicine Work Phone: Comment on above: Pattern: Unlabored 04-13-2014 09:52-0400 Weight 78.47 kg Moira Ramsey [facility] Internal Medicine Work Phone: 04-04-2014 11:04-0400 BMI (Body Mass Index) 27.5 kg/m2 Moira Ramsey [facility] Internal Medicine Work Phone: 04-04-2014 11:04-0400 Body Temperature 98.3 [degF] Moira Ramsey [facility] Internal Medicine Work Phone: 04-04-2014 11:04-0400 Body weight 78.47 kg Moira Ramsey [facility] Internal Medicine Work Phone: 04-04-2014 11:04-0400 BP Diastolic 64 mm[Hg] [facility] Comment on above: Patient Position: Sitting; Cuff Location : Left Arm; Cuff Size: Large 04-04-2014 11:04-0400 BP Systolic 102 mm[Hg] [facility]: Comment on above: Patient Position: Sitting; Cuff Location : Left Arm; Cuff Size: Large 04-04-2014 11:04-0400 BSA (Body Surface Area) 1.89 m2 Moira Ramsey [facility] Internal Medicine Work Phone: 04-04-2014 11:04-0400 Height 168.91 cm Moira Ramsey [facility] Internal Medicine Work Phone: 04-04-2014 11:04-0400 Pulse (Heart Rate) 78 /min Moira Ramsey [facility] Internal Medicine Work Phone: Comment on above: Pattern: Regular 04-04-2014 11:04-0400 Respiratory Rate 16 /min Moira Ramsey [facility] Internal Medicine Work Phone: Comment on above: Pattern: Unlabored 04-04-2014 11:04-0400 Weight 78.47 kg Moira Ramsey [facility] Internal Medicine Work Phone: 03-15-2014 13:58-0400 BMI (Body Mass Index) 27.66 kg/m2 Moira Ramsey [facility] Internal Medicine Work Phone: 03-15-2014 13:58-0400 Body Temperature 99.1 [degF] Moira Ramsey [facility] Internal Medicine Work Phone: 03-15-2014 13:58-0400 Body weight 78.93 kg Moira Ramsey [facility] Internal Medicine Work Phone: 03-15-2014 13:58-0400 BP Diastolic 82 mm[Hg] Moira Ramsey [facility] Internal Medicine Work Phone: Comment on above: Patient Position: Sitting; Cuff Location : Left Arm; Cuff Size: Large 03-15-2014 13:58-0400 BP Systolic 122 mm[Hg] Moira Ramsey [facility] Internal Medicine Work Phone: Comment on above: Patient Position: Sitting; Cuff Location : Left Arm; Cuff Size: Large 03-15-2014 13:58-0400 BSA (Body Surface Area) 1.9 m2 Moira Ramsey [facility] Internal Medicine Work Phone: 03-15-2014 13:58-0400 Height 168.91 cm Moira Ramsey [facility] Internal Medicine Work Phone: 03-15-2014 13:58-0400 Pulse (Heart Rate) 62 /min Moira Ramsey [facility] Internal Medicine Work Phone: Comment on above: Pattern: Regular 03-15-2014 13:58-0400 Respiratory Rate 16 /min Moira Ramsey [facility] Internal Medicine Work Phone: Comment on above: Pattern: Unlabored 03-15-2014 13:58-0400 Weight 78.93 kg Moira Ramsey [facility] Internal Medicine Work Phone: 12-27-2013 13:50-0400 BMI (Body Mass Index) 27.82 kg/m2 Moira Ramsey [facility] Internal Medicine Work Phone: 12-27-2013 13:50-0400 Body Temperature 97.5 [degF] Moira Ramsey [facility] Internal Medicine Work Phone: 12-27-2013 13:50-0400 Body weight 79.38 kg Moira Ramsey [facility] Internal Medicine Work Phone: 12-27-2013 13:50-0400 BP Diastolic 66 mm[Hg] Moira Ramsey [facility] Internal Medicine Work Phone: Comment on above: Patient Position: Sitting; Cuff Location : Left Arm; Cuff Size: Large 12-27-2013 13:50-0400 BP Systolic 100 mm[Hg] Moira Ramsey [facility] Internal Medicine Work Phone: Comment on above: Patient Position: Sitting; Cuff Location : Left Arm; Cuff Size: Large 12-27-2013 13:50-0400 BSA (Body Surface Area) 1.9 m2 Moira Ramsey [facility] Internal Medicine Work Phone: 12-27-2013 13:50-0400 Height 168.91 cm Moira Ramsey [facility] Internal Medicine Work Phone: 12-27-2013 13:50-0400 Pulse (Heart Rate) 68 /min Moira Ramsey [facility] Internal Medicine Work Phone: Comment on above: Pattern: Regular 12-27-2013 13:50-0400 Respiratory Rate 16 /min Moira Ramsey [facility] Internal Medicine Work Phone: Comment on above: Pattern: Unlabored 12-27-2013 13:50-0400 Weight 79.38 kg Moira Ramsey [facility] Internal Medicine Work Phone: 11-02-2013 13:45-0400 BMI (Body Mass Index) 27.5 kg/m2 Moira Ramsey [facility] Internal Medicine Work Phone: 11-02-2013 13:45-0400 Body Temperature 98.8 [degF] Moira Ramsey [facility] Internal Medicine Work Phone: 11-02-2013 13:45-0400 Body weight 78.47 kg Moira Ramsey [facility] Internal Medicine Work Phone: 11-02-2013 13:45-0400 BP Diastolic 70 mm[Hg] Moira Ramsey [facility] Internal Medicine Work Phone: Comment on above: Patient Position: Sitting; Cuff Location : Left Arm; Cuff Size: Large 11-02-2013 13:45-0400 BP Systolic 102 mm[Hg] Moira Ramsey [facility] Internal Medicine Work Phone: Comment on above: Patient Position: Sitting; Cuff Location : Left Arm; Cuff Size: Large 11-02-2013 13:45-0400 BSA (Body Surface Area) 1.89 m2 Moira Ramsey [facility] Internal Medicine Work Phone: 11-02-2013 13:45-0400 Height 168.91 cm Moira Ramsey [facility] Internal Medicine Work Phone: 11-02-2013 13:45-0400 Pulse (Heart Rate) 64 /min Moira Ramsey [facility] Internal Medicine Work Phone: Comment on above: Pattern: Regular 11-02-2013 13:45-0400 Respiratory Rate 18 /min Moira Ramsey [facility] Internal Medicine Work Phone: Comment on above: Pattern: Unlabored 11-02-2013 13:45-0400 Weight 78.47 kg Moira Ramsey [facility] Internal Medicine Work Phone: 10-29-2013 13:17-0500 BMI (Body Mass Index) 27.5 kg/m2 [facility] Work Phone: 10-29-2013 13:17-0500 Body Temperature 97.2 [degF] Moira Ramsey [facility] Internal Medicine Work Phone: 10-29-2013 13:17-0500 Body weight 78.47 kg Moira Ramsey [facility] Internal Medicine Work Phone: 10-29-2013 13:17-0500 BP Diastolic 62 mm[Hg] Moira Ramsey [facility] Internal Medicine Work Phone: Comment on above: Patient Position: Sitting; Cuff Location : Left Arm; Cuff Size: Large 10-29-2013 13:17-0500 BP Systolic 108 mm[Hg] Moira Ramsey [facility] Internal Medicine Work Phone: Comment on above: Patient Position: Sitting; Cuff Location : Left Arm; Cuff Size: Large 10-29-2013 13:17-0500 BSA (Body Surface Area) 1.89 m2 Moira Ramsey [facility] Internal Medicine Work Phone: 10-29-2013 13:17-0500 Height 168.91 cm Moira Ramsey [facility] Internal Medicine Work Phone: 10-29-2013 13:17-0500 Pulse (Heart Rate) 62 /min Moira Ramsey [facility] Internal Medicine Work Phone: Comment on above: Pattern: Regular 10-29-2013 13:17-0500 Respiratory Rate 16 /min Moira Ramsey [facility] Internal Medicine Work Phone: Comment on above: Pattern: Unlabored 10-29-2013 13:17-0500 Weight 78.47 kg Moira Ramsey [facility] Internal Medicine Work Phone: 07-02-2013 14:54-0500 BP Diastolic 84 mm[Hg] Moira Ramsey [facility] Internal Medicine Work Phone: Comment on above: Patient Position: Sitting 07-02-2013 14:54-0500 BP Systolic 124 mm[Hg] Moira Ramsey [facility] Internal Medicine Work Phone: Comment on above: Patient Position: Sitting 07-02-2013 13:43-0500 BMI (Body Mass Index) 28.14 kg/m2 [facility] Work Phone: 07-02-2013 13:43-0500 Body Temperature 97.8 [degF] Moira Ramsey [facility] Internal Medicine Work Phone: 07-02-2013 13:43-0500 Body weight 80.29 kg Moira Ramsey [facility] Internal Medicine Work Phone: 07-02-2013 13:43-0500 BP Diastolic 90 mm[Hg] Moira Ramsey [facility] Internal Medicine Work Phone: Comment on above: Patient Position: Sitting; Cuff Location : Left Arm; Cuff Size: Large 07-02-2013 13:43-0500 BP Systolic 124 mm[Hg] Moira Ramsey [facility] Internal Medicine Work Phone: Comment on above: Patient Position: Sitting; Cuff Location : Left Arm; Cuff Size: Large 07-02-2013 13:43-0500 BSA (Body Surface Area) 1.91 m2 Moira Ramsey [facility] Internal Medicine Work Phone: 07-02-2013 13:43-0500 Height 168.91 cm Moira Ramsey [facility] Internal Medicine Work Phone: 07-02-2013 13:43-0500 Pulse (Heart Rate) 60 /min Moira Ramsey [facility] Internal Medicine Work Phone: Comment on above: Pattern: Regular 07-02-2013 13:43-0500 Respiratory Rate 16 /min Moira Ramsey [facility] Internal Medicine Work Phone: Comment on above: Pattern: Unlabored 07-02-2013 13:43-0500 Weight 80.29 kg Moira Ramsey [facility] Internal Medicine Work Phone: 03-30-2013 13:50-0400 BMI (Body Mass Index) 29.25 kg/m2 Moira [facility] Internal Medicine Work Phone: 03-30-2013 13:50-0400 Body Temperature 95.6 [degF] Moira Ramsey [facility] Internal Medicine Work Phone: 03-30-2013 13:50-0400 Body weight 83.46 kg Moira Ramsey [facility] Internal Medicine Work Phone: 03-30-2013 13:50-0400 BP Diastolic 70 mm[Hg] Moira Ramsey [facility] Internal Medicine Work Phone: Comment on above: Patient Position: Sitting; Cuff Location : Left Arm; Cuff Size: Large 03-30-2013 13:50-0400 BP Systolic 104 mm[Hg] Moira Ramsey [facility] Internal Medicine Work Phone: Comment on above: Patient Position: Sitting; Cuff Location : Left Arm; Cuff Size: Large 03-30-2013 13:50-0400 BSA (Body Surface Area) 1.94 m2 Moira Ramsey [facility] Internal Medicine Work Phone: 03-30-2013 13:50-0400 Height 168.91 cm Moira Ramsey [facility] Internal Medicine Work Phone: 03-30-2013 13:50-0400 Pulse (Heart Rate) 66 /min Moira Ramsey [facility] Internal Medicine Work Phone: Comment on above: Pattern: Regular 03-30-2013 13:50-0400 Respiratory Rate 18 /min Moira Ramsey [facility] Internal Medicine Work Phone: Comment on above: Pattern: Unlabored 03-30-2013 13:50-0400 Weight 83.46 kg Moira Ramsey [facility] Internal Medicine Work Phone: 12-29-2012 10:32-0400 BMI (Body Mass Index) 30.53 kg/m2 Moira [facility] Internal Medicine Work Phone: 12-29-2012 10:32-0400 Body Temperature 97 [degF] Moira Ramsey [facility] Internal Medicine Work Phone: 12-29-2012 10:32-0400 Body weight 87.09 kg Moira Ramsey [facility] Internal Medicine Work Phone: 12-29-2012 10:32-0400 BP Diastolic 70 mm[Hg] Moira Ramsey [facility] Internal Medicine Work Phone: Comment on above: Patient Position: Sitting; Cuff Location : Left Arm; Cuff Size: Large 12-29-2012 10:32-0400 BP Systolic 118 mm[Hg] Moira Ramsey [facility] Internal Medicine Work Phone: Comment on above: Patient Position: Sitting; Cuff Location : Left Arm; Cuff Size: Large 12-29-2012 10:32-0400 BSA (Body Surface Area) 1.98 m2 Moira Ramsey [facility] Internal Medicine Work Phone: 12-29-2012 10:32-0400 Height 168.91 cm Moira Ramsey [facility] Internal Medicine Work Phone: 12-29-2012 10:32-0400 Pulse (Heart Rate) 72 /min Moira Ramsey [facility] Internal Medicine Work Phone: Comment on above: Pattern: Regular 12-29-2012 10:32-0400 Respiratory Rate 16 /min Moira Ramsey [facility] Internal Medicine Work Phone: Comment on above: Pattern: Unlabored 12-29-2012 10:32-0400 Weight 87.09 kg Moira Ramsey [facility] Internal Medicine Work Phone: 10-26-2012 10:36-0500 Body Temperature 98.3 [degF] Moira Ramsey [facility] Internal Medicine Work Phone: Comment on above: Method: Oral 10-26-2012 10:36-0500 BP Diastolic 78 mm[Hg] Moira Ramsey [facility] Internal Medicine Work Phone: Comment on above: Patient Position: Sitting; Cuff Location : Left Arm; Cuff Size: Standard 10-26-2012 10:36-0500 BP Systolic 124 mm[Hg] Moira Ramsey [facility] Internal Medicine Work Phone: Comment on above: Patient Position: Sitting; Cuff Location : Left Arm; Cuff Size: Standard 10-26-2012 10:36-0500 Pulse (Heart Rate) 66 /min Moira Ramsey [facility] Internal Medicine Work Phone: Comment on above: Pattern: Regular 10-26-2012 10:36-0500 Respiratory Rate 18 /min Moira Ramsey [facility] Internal Medicine Work Phone: 10-05-2012 08:50-0500 BMI (Body Mass Index) 30.21 kg/m2 Moira Ramsey [facility] Internal Medicine Work Phone: 10-05-2012 08:50-0500 Body Temperature 98.7 [degF] Moira Ramsey [facility] Internal Medicine Work Phone: 10-05-2012 08:50-0500 Body weight 86.18 kg Moira Ramsey [facility] Internal Medicine Work Phone: 10-05-2012 08:50-0500 BP Diastolic 70 mm[Hg] Moira Ramsey [facility] Internal Medicine Work Phone: Comment on above: Patient Position: Sitting; Cuff Location : Left Arm; Cuff Size: Large 10-05-2012 08:50-0500 BP Systolic 100 mm[Hg] Moira Ramsey [facility] Internal Medicine Work Phone: Comment on above: Patient Position: Sitting; Cuff Location : Left Arm; Cuff Size: Large 10-05-2012 08:50-0500 BSA (Body Surface Area) 1.97 m2 Moira Ramsey [facility] Internal Medicine Work Phone: 10-05-2012 08:50-0500 Height 168.91 cm Moira Ramsey [facility] Internal Medicine Work Phone: 10-05-2012 08:50-0500 Pulse (Heart Rate) 76 /min Moira Ramsey [facility] Internal Medicine Work Phone: Comment on above: Pattern: Regular 10-05-2012 08:50-0500 Respiratory Rate 16 /min Moira Ramsey [facility] Internal Medicine Work Phone: Comment on above: Pattern: Unlabored 10-05-2012 08:50-0500 Weight 86.18 kg Moira Ramsey [facility] Internal Medicine Work Phone: 09-15-2012 13:09-0500 BMI (Body Mass Index) 30.84 kg/m2 Moira [facility] Internal Medicine Work Phone: 09-15-2012 13:09-0500 Body Temperature 98.8 [degF] Moira Ramsey [facility] Internal Medicine Work Phone: Comment on above: Method: Oral 09-15-2012 13:09-0500 Body weight 88 kg Moira Ramsey [facility] Internal Medicine Work Phone: 09-15-2012 13:09-0500 BP Diastolic 76 mm[Hg] Moira Ramsey [facility] Internal Medicine Work Phone: Comment on above: Patient Position: Sitting; Cuff Location : Left Arm; Cuff Size: Standard 09-15-2012 13:09-0500 BP Systolic 122 mm[Hg] Moira Ramsey [facility] Internal Medicine Work Phone: Comment on above: Patient Position: Sitting; Cuff Location : Left Arm; Cuff Size: Standard 09-15-2012 13:09-0500 BSA (Body Surface Area) 1.99 m2 Moira Ramsey [facility] Internal Medicine Work Phone: 09-15-2012 13:09-0500 Height 168.91 cm Moira Ramsey [facility] Internal Medicine Work Phone: 09-15-2012 13:09-0500 Pulse (Heart Rate) 64 /min Moira Ramsey [facility] Internal Medicine Work Phone: Comment on above: Pattern: Regular 09-15-2012 13:09-0500 Respiratory Rate 16 /min Moira Ramsey [facility] Internal Medicine Work Phone: Comment on above: Pattern: Unlabored 09-15-2012 13:09-0500 Weight 88 kg Moira Ramsey [facility] Internal Medicine Work Phone: 09-02-2012 08:05-0500 BMI (Body Mass Index) 30.84 kg/m2 Moira [facility]ayer [facility] Internal Medicine Work Phone: 09-02-2012 08:05-0500 Body Temperature 99.5 [degF] Moira Ramsey [facility] Internal Medicine Work Phone: Comment on above: Method: Oral 09-02-2012 08:05-0500 Body weight 88 kg Moira Ramsey [facility] Internal Medicine Work Phone: 09-02-2012 08:05-0500 BP Diastolic 78 mm[Hg] Moira Ramsey [facility] Internal Medicine Work Phone: Comment on above: Patient Position: Sitting; Cuff Location : Left Arm; Cuff Size: Standard 09-02-2012 08:05-0500 BP Systolic 130 mm[Hg] Moira Ramsey [facility] Internal Medicine Work Phone: Comment on above: Patient Position: Sitting; Cuff Location : Left Arm; Cuff Size: Standard 09-02-2012 08:05-0500 BSA (Body Surface Area) 1.99 m2 Moira Ramsey [facility] Internal Medicine Work Phone: 09-02-2012 08:05-0500 Height 168.91 cm Moira Ramsey [facility] Internal Medicine Work Phone: 09-02-2012 08:05-0500 Pulse (Heart Rate) 84 /min Moira Ramsey [facility] Internal Medicine Work Phone: Comment on above: Pattern: Regular 09-02-2012 08:05-0500 Pulse Oximetry 94 % Moira Ramsey [facility] Internal Medicine Work Phone: Comment on above: Room air 09-02-2012 08:05-0500 Respiratory Rate 17 /min Moira Ramsey [facility] Internal Medicine Work Phone: 09-02-2012 08:05-0500 Weight 88 kg Moira Ramsey [facility] Internal Medicine Work Phone: 07-21-2012 10:33-0500 BMI (Body Mass Index) 30.84 kg/m2 Moira Ramsey [facility] Internal Medicine Work Phone: 07-21-2012 10:33-0500 Body Temperature 97.8 [degF] Moira Ramsey [facility] Internal Medicine Work Phone: Comment on above: Method: Oral 07-21-2012 10:33-0500 Body weight 88 kg Moira Ramsey [facility] Internal Medicine Work Phone: 07-21-2012 10:33-0500 BP Diastolic 76 mm[Hg] Moira Ramsey [facility] Internal Medicine Work Phone: Comment on above: Patient Position: Sitting; Cuff Location : Left Arm; Cuff Size: Standard 07-21-2012 10:33-0500 BP Systolic 128 mm[Hg] Moira Ramsey [facility] Internal Medicine Work Phone: Comment on above: Patient Position: Sitting; Cuff Location : Left Arm; Cuff Size: Standard 07-21-2012 10:33-0500 BSA (Body Surface Area) 1.99 m2 Moira Ramsey [facility] Internal Medicine Work Phone: 07-21-2012 10:33-0500 Height 168.91 cm Moira Ramsey [facility] Internal Medicine Work Phone: 07-21-2012 10:33-0500 Pulse (Heart Rate) 66 /min Moira Ramsey [facility] Internal Medicine Work Phone: Comment on above: Pattern: Regular 07-21-2012 10:33-0500 Pulse Oximetry 98 % Moira Ramsey [facility] Internal Medicine Work Phone: Comment on above: Room air 07-21-2012 10:33-0500 Respiratory Rate 16 /min Moira Ramsey [facility] Internal Medicine Work Phone: Comment on above: Pattern: Unlabored 07-21-2012 10:33-0500 Weight 88 kg Moira Ramsey [facility] Internal Medicine Work Phone: 07-08-2012 12:58-0500 BMI (Body Mass Index) 30.84 kg/m2 Moira Ramsey [facility] Internal Medicine Work Phone: 07-08-2012 12:58-0500 Body Temperature 96.7 [degF] Moira Ramsey [facility] Internal Medicine Work Phone: Comment on above: Method: Oral 07-08-2012 12:58-0500 Body weight 88 kg Moira Ramsey [facility] Internal Medicine Work Phone: 07-08-2012 12:58-0500 BP Diastolic 76 mm[Hg] Moira Ramsey [facility] Internal Medicine Work Phone: Comment on above: Patient Position: Sitting 07-08-2012 12:58-0500 BP Systolic 130 mm[Hg] Moira Ramsey [facility] Internal Medicine Work Phone: Comment on above: Patient Position: Sitting 07-08-2012 12:58-0500 BSA (Body Surface Area) 1.99 m2 Moira Ramsey [facility] Internal Medicine Work Phone: 07-08-2012 12:58-0500 Height 168.91 cm Moira Ramsey [facility] Internal Medicine Work Phone: 07-08-2012 12:58-0500 Pulse (Heart Rate) 80 /min Moira Ramsey [facility] Internal Medicine Work Phone: Comment on above: Pattern: Regular 07-08-2012 12:58-0500 Respiratory Rate 16 /min Moira Ramsey [facility] Internal Medicine Work Phone: 07-08-2012 12:58-0500 Weight 88 kg Moira Ramsey [facility] Internal Medicine Work Phone: 05-08-2012 10:07-0400 BMI (Body Mass Index) 30.28 kg/m2 Moira Ramsey [facility] Internal Medicine Work Phone: 05-08-2012 10:07-0400 Body Temperature 97.4 [degF] Moira Ramsey [facility] Internal Medicine Work Phone: Comment on above: Method: Oral 05-08-2012 10:07-0400 Body weight 86.38 kg Moira Ramsey [facility] Internal Medicine Work Phone: 05-08-2012 10:07-0400 BP Diastolic 64 mm[Hg] Moira Ramsey [facility] Internal Medicine Work Phone: Comment on above: Patient Position: Sitting; Cuff Location : Left Arm; Cuff Size: Large 05-08-2012 10:07-0400 BP Systolic 118 mm[Hg] Moira Ramsey [facility] Internal Medicine Work Phone: Comment on above: Patient Position: Sitting; Cuff Location : Left Arm; Cuff Size: Large 05-08-2012 10:070400 BSA (Body Surface Area) 1.97 m2 Moira Ramsey [facility] Internal Medicine Work Phone: 05-08-2012 10:07040 Height 168.91 cm Moria Ramsey [facility] Internal Medicine Work Phone: 05-08-2012 10:07-0400 Pulse (Heart Rate) 64 /min Moira Ramsey [facility] Internal Medicine Work Phone: Comment on above: Pattern: Regular 05-08-2012 10:070400 Respiratory Rate 16 /min Moira Ramsey [facility] Internal Medicine Work Phone: Comment on above: Pattern: Unlabored 05-08-2012 10:07-0400 Weight 86.38 kg Moira Ramsey [facility] Internal Medicine Work Phone: 03-25-2012 13:07-0400 BMI (Body Mass Index) 29.25 kg/m2 Moira Ramsey [facility] Internal Medicine Work Phone: 03-25-2012 13:07-0400 Body Temperature 97 [degF] Moira Ramsey [facility] Internal Medicine Work Phone: Comment on above: Method: Oral 03-25-2012 13:07-0400 Body weight 83.46 kg Moira Ramsey [facility] Internal Medicine Work Phone: 03-25-2012 13:07-0400 BP Diastolic 76 mm[Hg] Moira Ramsey [facility] Internal Medicine Work Phone: Comment on above: Patient Position: Sitting; Cuff Location : Left Arm; Cuff Size: Standard 03-25-2012 13:07-0400 BP Systolic 122 mm[Hg] Moira Ramsey [facility] Internal Medicine Work Phone: Comment on above: Patient Position: Sitting; Cuff Location : Left Arm; Cuff Size: Standard 03-25-2012 13:07-0400 BSA (Body Surface Area) 1.94 m2 Moira Ramsey [facility] Internal Medicine Work Phone: 03-25-2012 13:07-0400 Height 168.91 cm Moira Ramsey [facility] Internal Medicine Work Phone: 03-25-2012 13:07-0400 Pulse (Heart Rate) 62 /min Moira Ramsey [facility] Internal Medicine Work Phone: Comment on above: Pattern: Regular 03-25-2012 13:07-0400 Respiratory Rate 16 /min Moira Ramsey [facility] Internal Medicine Work Phone: Comment on above: Pattern: Unlabored 03-25-2012 13:07-0400 Weight 83.46 kg Moira Ramsey [facility] Internal Medicine Work Phone: 12-23-2011 13:12-0400 BMI (Body Mass Index) 29.25 kg/m2 Moira Ramsey [facility] Internal Medicine Work Phone: 12-23-2011 13:12-0400 Body Temperature 98 [degF] Moira Ramsey [facility] Internal Medicine Work Phone: 12-23-2011 13:12-0400 Body weight 83.46 kg Moira Ramsey [facility] Internal Medicine Work Phone: 12-23-2011 13:12-0400 BP Diastolic 72 mm[Hg] Moira Ramsey [facility] Internal Medicine Work Phone: Comment on above: Patient Position: Sitting; Cuff Location : Left Arm; Cuff Size: Large 12-23-2011 13:12-0400 BP Systolic 100 mm[Hg] Moira Ramsey [facility] Internal Medicine Work Phone: Comment on above: Patient Position: Sitting; Cuff Location : Left Arm; Cuff Size: Large 12-23-2011 13:12-0400 BSA (Body Surface Area) 1.94 m2 Moira Ramsey [facility] Internal Medicine Work Phone: 12-23-2011 13:12-0400 Height 168.91 cm Moira Rmasey [facility] Internal Medicine Work Phone: 12-23-2011 13:12-0400 Pulse (Heart Rate) 72 /min Moira Ramsey [facility] Internal Medicine Work Phone: Comment on above: Pattern: Regular 12-23-2011 13:12-0400 Respiratory Rate 16 /min Moira Ramsey [facility] Internal Medicine Work Phone: Comment on above: Pattern: Unlabored 12-23-2011 13:12-0400 Weight 83.46 kg Moira Ramsey [facility] Internal Medicine Work Phone: 11-04-2011 14:08-0400 BMI (Body Mass Index) 28.62 kg/m2 Moira Ramsey [facility] Internal Medicine Work Phone: 11-04-2011 14:08-0400 Body Temperature 98 [degF] Moira Ramsey [facility] Internal Medicine Work Phone: 11-04-2011 14:08-0400 Body weight 81.65 kg Moira Ramsey [facility] Internal Medicine Work Phone: 11-04-2011 14:08-0400 BP Diastolic 70 mm[Hg] Moira Ramsey [facility] Internal Medicine Work Phone: Comment on above: Patient Position: Sitting; Cuff Location : Left Arm; Cuff Size: Large 11-04-2011 14:08-0400 BP Systolic 120 mm[Hg] Moira Ramsey [facility] Internal Medicine Work Phone: Comment on above: Patient Position: Sitting; Cuff Location : Left Arm; Cuff Size: Large 11-04-2011 14:08-0400 BSA (Body Surface Area) 1.92 m2 Moira Ramsey [facility] Internal Medicine Work Phone: 11-04-2011 14:08-0400 Height 168.91 cm Moira Ramsey [facility] Internal Medicine Work Phone: 11-04-2011 14:08-0400 Pulse (Heart Rate) 72 /min Moira Ramsey [facility] Internal Medicine Work Phone: Comment on above: Pattern: Regular 11-04-2011 14:08-0400 Respiratory Rate 16 /min Moira Ramsey [facility] Internal Medicine Work Phone: Comment on above: Pattern: Unlabored 11-04-2011 14:08-0400 Weight 81.65 kg Moira Ramsey [facility] Internal Medicine Work Phone: 09-24-2011 12:09-0500 BMI (Body Mass Index) 29.57 kg/m2 [facility] Work Phone: 09-24-2011 12:09-0500 Body Temperature 97.6 [degF] Moira Ramsey [facility] Internal Medicine Work Phone: 09-24-2011 12:09-0500 Body weight 84.37 kg Moira Ramsey [facility] Internal Medicine Work Phone: 09-24-2011 12:09-0500 BP Diastolic 80 mm[Hg] Moira Ramsey [facility] Internal Medicine Work Phone: Comment on above: Patient Position: Sitting; Cuff Location : Left Arm; Cuff Size: Large 09-24-2011 12:09-0500 BP Systolic 114 mm[Hg] Moira Ramsey [facility] Internal Medicine Work Phone: Comment on above: Patient Position: Sitting; Cuff Location : Left Arm; Cuff Size: Large 09-24-2011 12:09-0500 BSA (Body Surface Area) 1.95 m2 Moira Ramsey [facility] Internal Medicine Work Phone: 09-24-2011 12:09-0500 Height 168.91 cm Moira Ramsey [facility] Internal Medicine Work Phone: 09-24-2011 12:09-0500 Pulse (Heart Rate) 62 /min Moira Ramsey [facility] Internal Medicine Work Phone: Comment on above: Pattern: Regular 09-24-2011 12:09-0500 Respiratory Rate 16 /min Moira Ramsey [facility] Internal Medicine Work Phone: Comment on above: Pattern: Unlabored 09-24-2011 12:09-0500 Weight 84.37 kg Moira Ramsey [facility] Internal Medicine Work Phone: 09-12-2011 11:02-0500 BMI (Body Mass Index) 29.11 kg/m2 Moira Ramsey [facility] Internal Medicine Work Phone: 09-12-2011 11:02-0500 Body Temperature 97.1 [degF] Moira Ramsey [facility] Internal Medicine Work Phone: Comment on above: Method: Oral 09-12-2011 11:02-0500 Body weight 83.07 kg Moira Ramsey [facility] Internal Medicine Work Phone: 09-12-2011 11:02-0500 BP Diastolic 86 mm[Hg] Moira Ramsey [facility] Internal Medicine Work Phone: Comment on above: Patient Position: Sitting; Cuff Location : Left Arm; Cuff Size: Large 09-12-2011 11:02-0500 BP Systolic 122 mm[Hg] Moira Ramsey [facility] Internal Medicine Work Phone: Comment on above: Patient Position: Sitting; Cuff Location : Left Arm; Cuff Size: Large 09-12-2011 11:02-0500 BSA (Body Surface Area) 1.94 m2 Moira Ramsey [facility] Internal Medicine Work Phone: 09-12-2011 11:02-0500 Height 168.91 cm Moira Ramsey [facility] Internal Medicine Work Phone: 09-12-2011 11:02-0500 Pulse (Heart Rate) 60 /min Moira Ramsey [facility] Internal Medicine Work Phone: Comment on above: Pattern: Regular 09-12-2011 11:02-0500 Respiratory Rate 20 /min Moira Ramsey [facility] Internal Medicine Work Phone: Comment on above: Pattern: Unlabored 09-12-2011 11:02-0500 Weight 83.07 kg Moira Ramsey [facility] Internal Medicine Work Phone: 07-15-2011 10:35-0500 BMI (Body Mass Index) 29.41 kg/m2 Moira Ramsey [facility] Internal Medicine Work Phone: 07-15-2011 10:35-0500 Body Temperature 98.4 [degF] Moira Ramsey [facility] Internal Medicine Work Phone: 07-15-2011 10:35-0500 Body weight 83.92 kg Moira Ramsey [facility] Internal Medicine Work Phone: 07-15-2011 10:35-0500 BP Diastolic 64 mm[Hg] Moira Ramsey [facility] Internal Medicine Work Phone: Comment on above: Patient Position: Sitting; Cuff Location : Left Arm; Cuff Size: Large 07-15-2011 10:35-0500 BP Systolic 118 mm[Hg] Moira Ramsey [facility] Internal Medicine Work Phone: Comment on above: Patient Position: Sitting; Cuff Location : Left Arm; Cuff Size: Large 07-15-2011 10:35-0500 BSA (Body Surface Area) 1.95 m2 Moira Ramsey [facility] Internal Medicine Work Phone: 07-15-2011 10:35-0500 Height 168.91 cm Moira Ramsey [facility] Internal Medicine Work Phone: 07-15-2011 10:35-0500 Pulse (Heart Rate) 64 /min Moira Ramsey [facility] Internal Medicine Work Phone: Comment on above: Pattern: Regular 07-15-2011 10:35-0500 Respiratory Rate 18 /min Moira Ramsey [facility] Internal Medicine Work Phone: Comment on above: Pattern: Unlabored 07-15-2011 10:35-0500 Weight 83.92 kg Moira Ramsey [facility] Internal Medicine Work Phone: 06-21-2011 10:36-0400 BMI (Body Mass Index) 29.09 kg/m2 Moira Ramsey [facility] Internal Medicine Work Phone: 06-21-2011 10:36-0400 Body Temperature 97.8 [degF] Moira Ramsey [facility] Internal Medicine Work Phone: 06-21-2011 10:36-0400 Body weight 83.01 kg Moira Ramsey [facility] Internal Medicine Work Phone: 06-21-2011 10:36-0400 BP Diastolic 80 mm[Hg] Moira Ramsey [facility] Internal Medicine Work Phone: Comment on above: Patient Position: Sitting; Cuff Location : Left Arm; Cuff Size: Large 06-21-2011 10:36-0400 BP Systolic 120 mm[Hg] Moira Ramsey [facility] Internal Medicine Work Phone: Comment on above: Patient Position: Sitting; Cuff Location : Left Arm; Cuff Size: Large 06-21-2011 10:36-0400 BSA (Body Surface Area) 1.94 m2 Moira Ramsey [facility] Internal Medicine Work Phone: 06-21-2011 10:36-0400 Height 168.91 cm Moira Ramsey [facility] Internal Medicine Work Phone: 06-21-2011 10:36-0400 Pulse (Heart Rate) 72 /min Moira Ramsey [facility] Internal Medicine Work Phone: Comment on above: Pattern: Regular 06-21-2011 10:36-0400 Respiratory Rate 18 /min Moira Ramsey [facility] Internal Medicine Work Phone: Comment on above: Pattern: Unlabored 06-21-2011 10:36-0400 Weight 83.01 kg Moira Ramsey [facility] Internal Medicine Work Phone: 03-20-2011 11:17-0400 BMI (Body Mass Index) 28.27 kg/m2 Moira Ramsey [facility] Internal Medicine Work Phone: 03-20-2011 11:17-0400 Body Temperature 96.6 [degF] Moira Ramsey [facility] Internal Medicine Work Phone: Comment on above: Method: Oral 03-20-2011 11:17-0400 Body weight 80.65 kg Moira Ramsey [facility] Internal Medicine Work Phone: 03-20-2011 11:17-0400 BP Diastolic 74 mm[Hg] Moira Ramsey [facility] Internal Medicine Work Phone: Comment on above: Patient Position: Sitting; Cuff Location : Left Arm; Cuff Size: Standard 03-20-2011 11:17-0400 BP Systolic 122 mm[Hg] Moira Ramsey [facility] Internal Medicine Work Phone: Comment on above: Patient Position: Sitting; Cuff Location : Left Arm; Cuff Size: Standard 03-20-2011 11:17-0400 BSA (Body Surface Area) 1.91 m2 Moira Ramsey [facility] Internal Medicine Work Phone: 03-20-2011 11:17-0400 Height 168.91 cm Moira Ramsey [facility] Internal Medicine Work Phone: 03-20-2011 11:17-0400 Pulse (Heart Rate) 76 /min Moira Ramsey [facility] Internal Medicine Work Phone: Comment on above: Pattern: Regular 03-20-2011 11:17-0400 Respiratory Rate 16 /min Moira Ramsey [facility] Internal Medicine Work Phone: Comment on above: Pattern: Unlabored 03-20-2011 11:17-0400 Weight 80.65 kg Moira Ramsey [facility] Internal Medicine Work Phone: 01-08-2011 13:08-0400 BMI (Body Mass Index) 27.35 kg/m2 Moira Ramsey [facility] Internal Medicine Work Phone: 01-08-2011 13:08-0400 Body Temperature 96.3 [degF] Moira Ramsey [facility] Internal Medicine Work Phone: 01-08-2011 13:08-0400 Body weight 78.02 kg Moira Ramsey [facility] Internal Medicine Work Phone: 01-08-2011 13:08-0400 BP Diastolic 84 mm[Hg] Moira Ramsey [facility] Internal Medicine Work Phone: Comment on above: Patient Position: Sitting; Cuff Location : Left Arm; Cuff Size: Large 01-08-2011 13:08-0400 BP Systolic 114 mm[Hg] Moira Ramsey [facility] Internal Medicine Work Phone: Comment on above: Patient Position: Sitting; Cuff Location : Left Arm; Cuff Size: Large 01-08-2011 13:08-0400 BSA (Body Surface Area) 1.89 m2 Moira Ramsey [facility] Internal Medicine Work Phone: 01-08-2011 13:08-0400 Height 168.91 cm Moira Ramsey [facility] Internal Medicine Work Phone: 01-08-2011 13:08-0400 Pulse (Heart Rate) 72 /min Moira Ramsey [facility] Internal Medicine Work Phone: Comment on above: Pattern: Regular 01-08-2011 13:08-0400 Respiratory Rate 16 /min Moira Ramsey [facility] Internal Medicine Work Phone: Comment on above: Pattern: Unlabored 01-08-2011 13:08-0400 Weight 78.02 kg Moira Ramsey [facility] Internal Medicine Work Phone: 11-16-2010 14:11-0400 BMI (Body Mass Index) 26.67 kg/m2 Moira Ramsey [facility] Internal Medicine Work Phone: 11-16-2010 14:11-0400 Body Temperature 96.9 [degF] Moira Ramsey [facility] Internal Medicine Work Phone: 11-16-2010 14:11-0400 Body weight 76.66 kg Moira Ramsey [facility] Internal Medicine Work Phone: 11-16-2010 14:11-0400 BP Diastolic 80 mm[Hg] Moira Ramsey [facility] Internal Medicine Work Phone: Comment on above: Patient Position: Sitting; Cuff Location : Left Arm; Cuff Size: Large 11-16-2010 14:11-0400 BP Systolic 122 mm[Hg] Moira Ramsey [facility] Internal Medicine Work Phone: Comment on above: Patient Position: Sitting; Cuff Location : Left Arm; Cuff Size: Large 11-16-2010 14:110400 BSA (Body Surface Area) 1.88 m2 Moira Ramsey [facility] Internal Medicine Work Phone: 11-16-2010 14:11-0400 Height 169.55 cm Moira Ramsey [facility] Internal Medicine Work Phone: 11-16-2010 14:11-0400 Pulse (Heart Rate) 68 /min Moira Ramsey [facility] Internal Medicine Work Phone: Comment on above: Pattern: Regular 11-16-2010 14:11-0400 Respiratory Rate 16 /min Moira Ramsey [facility] Internal Medicine Work Phone: Comment on above: Pattern: Unlabored 11-16-2010 14:11-0400 Weight 76.66 kg Moira Maria Internal Medicine Work Phone: 10-22-2010 11:56-0500 Body Temperature 98.1 [degF] Moira [facility] Work Phone: 10-22-2010 11:56-0500 Body weight 78.02 kg Moira Ramsey [facility] Work Phone: 10-22-2010 11:56-0500 BP [...] 11:56-0500 Respiratory Rate 16 /min Moira Ramsey [facility] Work Phone: Comment on above: Pattern: Unlabored 10-22-2010 11:56-0500 Weight 78.02 kg Moira Ramsey [facility] Internal Medicine Work Phone: 08-14-2010 08:22-0500 Body Temperature 97.7 [degF] Moira Ramsey [facility] Work Phone: 08-14-2010 08:22-0500 Body weight 76.66 kg Moira Ramsey [facility] Work Phone: 08-14-2010 08:22-0500 BP Diastolic 70 mm[Hg] Moira Ramsey [facility] Work [...] 08:22-0500 Respiratory Rate 18 /min Moira Ramsey [facility] Work Phone: Comment on above: Pattern: Unlabored 08-14-2010 08:22-0500 Weight 76.66 kg Moira Ramsey [facility] Work Phone: 07-16-2010 16:47-0500 Body Temperature 99 [degF] Moira Ramsey [facility] Work Phone: 07-16-2010 16:47-0500 Body weight 76.66 kg Moira Ramsey [facility] Internal Medicine Work Phone: 07-16-2010 16:47-0500 BP Diastolic 70 mm[Hg] Moira Ramsey [facility] Work Phone: Comment on above: Patient Position: Sitting; Cuff Location : Left Arm; Cuff Size: Large 07-16-2010 16:47-0500 BP Systolic 100 mm[Hg] Moira Ramsey [facility] Work Phone: Comment on above: Patient Position: Sitting; Cuff Location : Left Arm; Cuff Size: Large 07-16-2010 16:47-0500 Pulse (Heart Rate) 80 /min Moira Ramsey [facility] Work Phone: Comment on above: Pattern: Regular 07-16-2010 16:47-0500 Respiratory Rate 18 /min Moira Ramsey [facility] Work Phone: Comment on above: Pattern: Unlabored 07-16-2010 16:47-0500 Weight 76.66 kg Moira Ramsey [facility] Internal Medicine Work Phone: 06-12-2010 14:06-0400 Body Temperature 96.1 [degF] Moira Ramsey [facility] Internal Medicine Work Phone: Comment on above: Method: Oral 06-12-2010 14:06-0400 Body weight 76.93 kg Moira Ramsey [facility] Internal Medicine Work Phone: 06-12-2010 14:06-0400 BP [...] Pulse (Heart Rate) 68 /min Moira Ramsey [facility] Internal Medicine Work Phone: Comment on above: Pattern: Regular 06-12-2010 14:06-0400 Respiratory Rate 18 /min Moira Ramsey [facility] Internal Medicine Work Phone: Comment on above: Pattern: Unlabored 06-12-2010 14:06-0400 Weight 76.93 kg Moira Ramsey [facility] Internal Medicine Work Phone: 06-01-2010 11:14-0400 Body Temperature 97 [degF] Moira Ramsey [facility] Internal Medicine Work Phone: Comment on above: Method: Oral 06-01-2010 11:14-0400 Body weight 80.74 kg Moira Ramsey [facility] Internal Medicine Work Phone: 06-01-2010 11:14-0400 BP Diastolic 68 mm[Hg] Moira Ramsey [facility] Internal Medicine Work Phone: [...] 06-01-2010 11:14-0400 Respiratory Rate 18 /min Moira Ramsey [facility] Work Phone: Comment on above: Pattern: Unlabored 06-01-2010 11:14-0400 Weight 80.74 kg Moira Ramsey [facility] Work Phone: 03-07-2010 13:31-0400 Body weight 80.74 kg Moira Ramsey [facility] Work Phone: 03-07-2010 13:31-0400 BP [...] 13:31-0400 Respiratory Rate 16 /min Moira Ramsey [facility] Work Phone: Comment on above: Pattern: Unlabored 03-07-2010 13:31-0400 Weight 80.74 kg Moira Ramsey [facility] Work Phone: 01-03-2010 11:14-0400 Body Temperature 97.4 [degF] Moira Ramsey [facility] Work Phone: Comment on above: Method: Oral 01-03-2010 11:14-0400 Body weight 79.83 kg Moira Ramsey [facility] Work Phone: 01-03-2010 11:14-0400 BP [...] 11:00-0400 Body weight 79.83 kg Moira Ramsey [facility] Work Phone: 11-29-2009 11:00-0400 BP [...] 11-29-2009 11:00-0400 Weight 79.83 kg Moira Ramsey [facility] Internal Medicine Work Phone: 09-04-2009 15:23-0500 Body Temperature 97.8 [degF] Moira Ramsey [facility] Work Phone: 09-04-2009 15:23-0500 Body weight 82.1 kg Moira Ramsey [facility] Internal Medicine Work Phone: 09-04-2009 15:23-0500 BP Diastolic 82 mm[Hg] Moira Ramsey [facility] Internal Medicine Work Phone: Comment on above: Patient Position: Sitting; Cuff Location : Left Arm; Cuff Size: Large 09-04-2009 15:23-0500 BP Systolic 124 mm[Hg] Moira Ramsey [facility] Internal Medicine Work Phone: Comment on above: Patient Position: Sitting; Cuff Location : Left Arm; Cuff Size: Large 09-04-2009 15:23-0500 Pulse (Heart Rate) 80 /min Moira Ramsey [facility] Internal Medicine Work Phone: Comment on above: Pattern: Regular 09-04-2009 15:23-0500 Respiratory Rate 16 /min Moira Ramsey [facility] Internal Medicine Work Phone: Comment on above: Pattern: Unlabored 09-04-2009 15:23-0500 Weight 82.1 kg Moira Ramsey [facility] Internal Medicine Work Phone: 07-19-2009 08:50-0500 BMI (Body Mass Index) 26.23 kg/m2 Moira Ramsey [facility] Internal Medicine Work Phone: 07-19-2009 08:50-0500 Body Temperature 98.9 [degF] Moira Ramsey [facility] Internal Medicine Work Phone: Comment on above: Method: Oral 07-19-2009 08:50-0500 Body weight 78.25 kg Moira Ramsey [facility] Internal Medicine Work Phone: 07-19-2009 08:50-0500 BP Diastolic 68 mm[Hg] Moira Ramsey [facility] Internal Medicine Work Phone: Comment on above: Patient Position: Sitting; Cuff Location : Left Arm; Cuff Size: Large 07-19-2009 08:50-0500 BP Systolic 118 mm[Hg] Moira Ramsey [facility] Internal Medicine Work Phone: Comment on above: Patient Position: Sitting; Cuff Location : Left Arm; Cuff Size: Large 07-19-2009 08:50-0500 BSA (Body Surface Area) 1.92 m2 Moira Ramsey [facility] Internal Medicine Work Phone: 07-19-2009 08:50-0500 Head Circumference 0 cm Moira Ramsey [facility] Internal Medicine Work Phone: 07-19-2009 08:50-0500 Height 172.72 cm Moira Ramsey [facility] Internal Medicine Work Phone: 07-19-2009 08:50-0500 Pulse (Heart Rate) 68 /min Moira Ramsey [facility] Internal Medicine Work Phone: Comment on above: Pattern: Regular 07-19-2009 08:50-0500 Respiratory Rate 18 /min Moira Ramsey [facility] Internal Medicine Work Phone: Comment on above: Pattern: Unlabored 07-19-2009 08:50-0500 Weight 78.25 kg Moira Ramsey [facility] Internal Medicine Work Phone: 06-14-2009 13:53-0400 Body Temperature 98.2 [degF] Moira Ramsey [facility] Internal Medicine Work Phone: Comment on above: Method: Undefined 06-14-2009 13:53-0400 Body weight 78.47 kg Moira Ramsey [facility] Internal Medicine Work Phone: 06-14-2009 13:53-0400 BP Diastolic 70 mm[Hg] Moira Ramsey [facility] Internal Medicine Work Phone: Comment on above: Patient Position: Sitting; Cuff Location : Right Arm; Cuff Size: Standard 06-14-2009 13:53-0400 BP Systolic 118 mm[Hg] Moira Ramsey [facility] Internal Medicine Work Phone: Comment on above: Patient Position: Sitting; Cuff Location : Right Arm; Cuff Size: Standard 06-14-2009 13:53-0400 Head Circumference 0 cm Moira Ramsey [facility] Internal Medicine Work Phone: 06-14-2009 13:53-0400 Height 0 cm Moira Ramsey [facility] Internal Medicine Work Phone: 06-14-2009 13:53-0400 Pulse (Heart Rate) 76 /min Moira Maria Internal Medicine Work Phone: Comment on above: Pattern: Regular 06-14-2009 13:53-0400 Respiratory Rate 18 /min Moira Ramsey [facility] Internal Medicine Work Phone: Comment on above: Pattern: Undefined 06-14-2009 13:53-0400 Weight 78.47 kg Moira Ramsey [facility] Internal Medicine Work Phone: 03-01-2009 13:20-0400 Body Temperature 97.1 [degF] Moira Ramsey [facility] Internal Medicine Work Phone: Comment on above: Method: Undefined 03-01-2009 13:20-0400 Body weight 74.39 kg Moira Ramsey [facility] Internal Medicine Work Phone: 03-01-2009 13:20-0400 BP Diastolic 84 mm[Hg] Moira Ramsey [facility] Internal Medicine Work Phone: Comment on above: Patient Position: Sitting; Cuff Location : Right Arm; Cuff Size: Standard 03-01-2009 13:20-0400 BP Systolic 132 mm[Hg] Moira Ramsey [facility] Work Phone: Comment on above: Patient Position: Sitting; Cuff Location : Right Arm; Cuff Size: Standard 03-01-2009 13:20-0400 Head Circumference 0 cm Moira Ramsey [facility] Internal Medicine Work Phone: 03-01-2009 13:20-0400 Height 0 cm Moira Ramsey [facility] Internal Medicine Work Phone: 03-01-2009 13:20-0400 Pulse (Heart Rate) 62 /min Moira Ramsey [facility] Internal Medicine Work Phone: Comment on above: Pattern: Regular 03-01-2009 13:20-0400 Respiratory Rate 18 /min Moira Ramsey [facility] Internal Medicine Work Phone: Comment on above: Pattern: Undefined 03-01-2009 13:20-0400 Weight 74.39 kg Moira Ramsey [facility] Internal Medicine Work Phone: 01-18-2009 15:44-0400 BMI (Body Mass Index) 25.24 kg/m2 Moira Ramsey [facility] Internal Medicine Work Phone: 01-18-2009 15:44-0400 Body Temperature 95.7 [degF] Moira Ramsey [facility] Internal Medicine Work Phone: Comment on above: Method: Undefined 01-18-2009 15:44-0400 Body weight 75.3 kg Moira Ramsey [facility] Internal Medicine Work Phone: 01-18-2009 15:44-0400 BP Diastolic 84 mm[Hg] Moira Ramsey [facility] Internal Medicine Work Phone: Comment on above: Patient Position: Sitting; Cuff Location : Right Arm; Cuff Size: Standard 01-18-2009 15:44-0400 BP Systolic 130 mm[Hg] Moira Ramsey [facility] Internal Medicine Work Phone: Comment on above: Patient Position: Sitting; Cuff Location : Right Arm; Cuff Size: Standard 01-18-2009 15:44-0400 BSA (Body Surface Area) 1.89 m2 Moira Ramsey [facility] Internal Medicine Work Phone: 01-18-2009 15:44-0400 Head Circumference 0 cm Moira Ramsey [facility] Internal Medicine Work Phone: 01-18-2009 15:44-0400 Height 172.72 cm Moira Ramsey [facility] Internal Medicine Work Phone: 01-18-2009 15:44-0400 Pulse (Heart Rate) 60 /min Miora Ramsey [facility] Internal Medicine Work Phone: Comment on above: Pattern: Regular 01-18-2009 15:44-0400 Respiratory Rate 16 /min Moira Ramsey [facility] Internal Medicine Work Phone: Comment on above: Pattern: Undefined 01-18-2009 15:44-0400 Weight 75.3 kg Moira Ramsey [facility] Internal Medicine Work Phone: 10-18-2008 16:25-0500 Body Temperature 96.9 [degF] Moira Ramsey [facility] Internal Medicine Work Phone: Comment on above: Method: Undefined 10-18-2008 16:25-0500 Body weight 83.46 kg Moira Ramsey [facility] Internal Medicine Work Phone: 10-18-2008 16:25-0500 BP Diastolic 74 mm[Hg] Moira Ramsey [facility] Internal Medicine Work Phone: Comment on above: Patient Position: Sitting; Cuff Location : Left Arm; Cuff Size: Large 10-18-2008 16:25-0500 BP Systolic 136 mm[Hg] Moira Ramsey [facility] Internal Medicine Work Phone: Comment on above: Patient Position: Sitting; Cuff Location : Left Arm; Cuff Size: Large 10-18-2008 16:25-0500 Head Circumference 0 cm Moira Ramsey [facility] Internal Medicine Work Phone: 10-18-2008 16:25-0500 Height 0 cm Moira Ramsey [facility] Internal Medicine Work Phone: 10-18-2008 16:25-0500 Pulse (Heart Rate) 58 /min Moira Ramsey [facility] Internal Medicine Work Phone: Comment on above: Pattern: Regular 10-18-2008 16:25-0500 Respiratory Rate 16 /min Moira Ramsey [facility] Internal Medicine Work Phone: Comment on above: Pattern: Undefined 10-18-2008 16:25-0500 Weight 83.46 kg Moira Ramsey [facility] Internal Medicine Work Phone: 07-20-2008 12:51-0500 Body Temperature 98 [degF] Moiar Ramsey [facility] Internal Medicine Work Phone: Comment on above: Method: Oral 07-20-2008 12:51-0500 Body weight 83.21 kg Moira Ramsey [facility] Internal Medicine Work Phone: 07-20-2008 12:51-0500 BP Diastolic 70 mm[Hg] Moira Ramsey [facility] Internal Medicine Work Phone: Comment on above: Patient Position: Sitting; Cuff Location : Left Arm; Cuff Size: Standard 07-20-2008 12:51-0500 BP Systolic 110 mm[Hg] Moira Ramsey [facility] Internal Medicine Work Phone: Comment on above: Patient Position: Sitting; Cuff Location : Left Arm; Cuff Size: Standard 07-20-2008 12:51-0500 Head Circumference 0 cm Moira Ramsey [facility] Internal Medicine Work Phone: 07-20-2008 12:51-0500 Height 0 cm Moira Ramsey [facility] Internal Medicine Work Phone: 07-20-2008 12:51-0500 Pulse (Heart Rate) 73 /min Moira Ramsey [facility] Internal Medicine Work Phone: Comment on above: Pattern: Regular 07-20-2008 12:51-0500 Pulse Oximetry 99 % Moira Ramsey [facility] Internal Medicine Work Phone: Comment on above: Room air 07-20-2008 12:51-0500 Respiratory Rate 18 /min Moira Ramsey [facility] Internal Medicine Work Phone: Comment on above: Pattern: Unlabored 07-20-2008 12:51-0500 Weight 83.21 kg Moira Ramsey [facility] Internal Medicine Work Phone: 07-06-2008 16:14-0500 Body Temperature 95.6 [degF] Moira Ramsey [facility] Internal Medicine Work Phone: Comment on above: Method: Undefined 07-06-2008 16:14-0500 Body weight 81.65 kg Moira Ramsey [facility] Internal Medicine Work Phone: 07-06-2008 16:14-0500 BP Diastolic 94 mm[Hg] Moira Ramsey [facility] Internal Medicine Work Phone: Comment on above: Patient Position: Sitting; Cuff Location : Right Arm; Cuff Size: Large 07-06-2008 16:14-0500 BP Systolic 146 mm[Hg] Moira Ramsey [facility] Internal Medicine Work Phone: Comment on above: Patient Position: Sitting; Cuff Location : Right Arm; Cuff Size: Large 07-06-2008 16:14-0500 Head Circumference 0 cm Moira Ramsey [facility] Internal Medicine Work Phone: 07-06-2008 16:14-0500 Height 0 cm Moira Ramsey [facility] Internal Medicine Work Phone: 07-06-2008 16:14-0500 Pulse (Heart Rate) 56 /min Moria Ramsey [facility] Internal Medicine Work Phone: Comment on above: Pattern: Regular 07-06-2008 16:14-0500 Respiratory Rate 16 /min Moira Ramsey [facility] Internal Medicine Work Phone: Comment on above: Pattern: Undefined 07-06-2008 16:14-0500 Weight 81.65 kg Moira aRmsey [facility] Internal Medicine Work Phone: 04-14-2008 15:47-0400 Body Temperature 98.2 [degF] Moira Ramsey [facility] Internal Medicine Work Phone: Comment on above: Method: Undefined 04-14-2008 15:47-0400 Body weight 0 kg Moira Ramsey [facility] Internal Medicine Work Phone: 04-14-2008 15:47-0400 BP Diastolic 74 mm[Hg] Moira Ramsey [facility] Internal Medicine Work Phone: Comment on above: Patient Position: Sitting; Cuff Location : Left Arm; Cuff Size: Large 04-14-2008 15:47-0400 BP Systolic 112 mm[Hg] Moira Ramsey [facility] Internal Medicine Work Phone: Comment on above: Patient Position: Sitting; Cuff Location : Left Arm; Cuff Size: Large 04-14-2008 15:47-0400 Head Circumference 0 cm Moira Ramsey [facility] Internal Medicine Work Phone: 04-14-2008 15:47-0400 Height 0 cm Moira Ramsey [facility] Internal Medicine Work Phone: 04-14-2008 15:47-0400 Pulse (Heart Rate) 68 /min Moira Ramsey [facility] Internal Medicine Work Phone: Comment on above: Pattern: Regular 04-14-2008 15:47-0400 Pulse Oximetry 98 % Moira Ramsey [facility] Internal Medicine Work Phone: Comment on above: Room air 04-14-2008 15:47-0400 Respiratory Rate 18 /min Moira Ramsey [facility] Internal Medicine Work Phone: Comment on above: Pattern: Unlabored 04-14-2008 15:47-0400 Weight 0 kg Moira Ramsey [facility] Internal Medicine Work Phone: 03-30-2008 15:51-0400 BMI (Body Mass Index) 27.88 kg/m2 Moira Ramsey [facility] Internal Medicine Work Phone: 03-30-2008 15:51-0400 Body Temperature 98.3 [degF] Miora Ramsey [facility] Internal Medicine Work Phone: Comment on above: Method: Undefined 03-30-2008 15:51-0400 Body weight 80.74 kg Moira Ramsey [facility] Internal Medicine Work Phone: 03-30-2008 15:51-0400 BP Diastolic 70 mm[Hg] Moira Ramsey [facility] Internal Medicine Work Phone: Comment on above: Patient Position: Sitting; Cuff Location : Right Arm; Cuff Size: Standard 03-30-2008 15:51-0400 BP Systolic 120 mm[Hg] Moira Ramsey [facility] Internal Medicine Work Phone: Comment on above: Patient Position: Sitting; Cuff Location : Right Arm; Cuff Size: Standard 03-30-2008 15:51-0400 BSA (Body Surface Area) 1.92 m2 Moira Ramsey [facility] Internal Medicine Work Phone: 03-30-2008 15:51-0400 Head Circumference 0 cm Moira Ramsey [facility] Internal Medicine Work Phone: 03-30-2008 15:51-0400 Height 170.18 cm Moira Ramsey [facility] Internal Medicine Work Phone: 03-30-2008 15:51-0400 Pulse (Heart Rate) 68 /min Moira Ramsey [facility] Internal Medicine Work Phone: Comment on above: Pattern: Regular 03-30-2008 15:51-0400 Respiratory Rate 16 /min Moira Ramsey [facility] Internal Medicine Work Phone: Comment on above: Pattern: Undefined 03-30-2008 15:51-0400 Weight 80.74 kg Moira Ramsey [facility] Internal Medicine Work Phone: 02-08-2008 13:02-0400 BMI (Body Mass Index) 27.37 kg/m2 Moira Ramsey [facility] Internal Medicine Work Phone: 02-08-2008 13:02-0400 Body weight 81.65 kg Moira Ramsey [facility] Internal Medicine Work Phone: 02-08-2008 13:02-0400 BP Diastolic 88 mm[Hg] Moira Ramsey [facility] Internal Medicine Work Phone: Comment on above: Patient Position: Sitting; Cuff Location : Left Arm; Cuff Size: Standard 02-08-2008 13:02-0400 BP Systolic 138 mm[Hg] Moira Ramsey [facility] Internal Medicine Work Phone: Comment on above: Patient Position: Sitting; Cuff Location : Left Arm; Cuff Size: Standard 02-08-2008 13:02-0400 BSA (Body Surface Area) 1.95 m2 Moira Ramsey [facility] Internal Medicine Work Phone: 02-08-2008 13:02-0400 Head Circumference 0 cm Moira Ramsey [facility] Internal Medicine Work Phone: 02-08-2008 13:02-0400 Height 172.72 cm Moira Ramsey [facility] Internal Medicine Work Phone: 02-08-2008 13:02-0400 Pulse (Heart Rate) 60 /min Moira Ramsey [facility] Internal Medicine Work Phone: Comment on above: Pattern: Regular 02-08-2008 13:02-0400 Respiratory Rate 16 /min Moira Ramsey [facility] Internal Medicine Work Phone: Comment on above: Pattern: Unlabored 02-08-2008 13:02-0400 Weight 81.65 kg Moira Ramsey [facility] Internal Medicine Work Phone: 01-06-2008 16:15-0400 BMI (Body Mass Index) 27.06 kg/m2 [facility]ira [facility] Internal Medicine Work Phone: 01-06-2008 16:15-0400 Body Temperature 97.9 [degF] Moira Ramsey [facility] Internal Medicine Work Phone: Comment on above: Method: Undefined 01-06-2008 16:15-0400 Body weight 80.74 kg Moira Ramsey [facility] Internal Medicine Work Phone: 01-06-2008 16:15-0400 BP Diastolic 94 mm[Hg] Moira Ramsey [facility] Internal Medicine Work Phone: Comment on above: Patient Position: Sitting; Cuff Location : Left Arm; Cuff Size: Standard 01-06-2008 16:15-0400 BP Systolic 142 mm[Hg] Moira Ramsey [facility] Internal Medicine Work Phone: Comment on above: Patient Position: Sitting; Cuff Location : Left Arm; Cuff Size: Standard 01-06-2008 16:15-0400 BSA (Body Surface Area) 1.95 m2 Moira Ramsey [facility] Internal Medicine Work Phone: 01-06-2008 16:15-0400 Head Circumference 0 cm Moira Ramsey [facility] Internal Medicine Work Phone: 01-06-2008 16:15-0400 Height 172.72 cm Moira Ramsey [facility] Internal Medicine Work Phone: 01-06-2008 16:15-0400 Pulse (Heart Rate) 56 /min Moira Ramsey [facility] Internal Medicine Work Phone: Comment on above: Pattern: Regular 01-06-2008 16:15-0400 Respiratory Rate 16 /min Moira Ramsey [facility] Internal Medicine Work Phone: Comment on above: Pattern: Undefined 01-06-2008 16:15-0400 Weight 80.74 kg Moira Ramsey [facility] Internal Medicine Work Phone: 10-05-2007 15:31-0500 BMI (Body Mass Index) 26.3 kg/m2 Moira Ramsey [facility] Internal Medicine Work Phone: 10-05-2007 15:31-0500 Body Temperature 96.8 [degF] Moira Ramsey [facility] Internal Medicine Work Phone: Comment on above: Method: Oral 10-05-2007 15:31-0500 Body weight 78.47 kg Moira Ramsey [facility] Internal Medicine Work Phone: 10-05-2007 15:31-0500 BP Diastolic 76 mm[Hg] Moira Ramsey [facility] Internal Medicine Work Phone: Comment on above: Patient Position: Sitting; Cuff Location : Left Arm; Cuff Size: Standard 10-05-2007 15:31-0500 BP Systolic 132 mm[Hg] Moira Ramsey [facility] Internal Medicine Work Phone: Comment on above: Patient Position: Sitting; Cuff Location : Left Arm; Cuff Size: Standard 10-05-2007 15:31-0500 BSA (Body Surface Area) 1.92 m2 Moira Ramsey [facility] Internal Medicine Work Phone: 10-05-2007 15:31-0500 Head Circumference 0 cm Moira Ramsey [facility] Internal Medicine Work Phone: 10-05-2007 15:31-0500 Height 172.72 cm Moira Ramsey [facility] Internal Medicine Work Phone: 10-05-2007 15:31-0500 Pulse (Heart Rate) 68 /min Moira Ramsey [facility] Internal Medicine Work Phone: Comment on above: Pattern: Regular 10-05-2007 15:31-0500 Respiratory Rate 16 /min Moira Ramsey [facility] Internal Medicine Work Phone: Comment on above: Pattern: Unlabored 10-05-2007 15:31-0500 Weight 78.47 kg Moira Ramsey [facility] Internal Medicine Work Phone: 09-30-2007 15:43-0500 BMI (Body Mass Index) 26.3 kg/m2 Moira Ramsey [facility] Internal Medicine Work Phone: 09-30-2007 15:43-0500 Body Temperature 98.6 [degF] Moira Ramsey [facility] Internal Medicine Work Phone: Comment on above: Method: Oral 09-30-2007 15:43-0500 Body weight 78.47 kg Moira Ramsey [facility] Internal Medicine Work Phone: 09-30-2007 15:43-0500 BP Diastolic 96 mm[Hg] Moira Ramsey [facility] Internal Medicine Work Phone: Comment on above: Patient Position: Sitting; Cuff Location : Right Arm; Cuff Size: Standard 09-30-2007 15:43-0500 BP Systolic 140 mm[Hg] Moira Ramsey [facility] Internal Medicine Work Phone: Comment on above: Patient Position: Sitting; Cuff Location : Right Arm; Cuff Size: Standard 09-30-2007 15:43-0500 BSA (Body Surface Area) 1.92 m2 Moira Ramsey [facility] Internal Medicine Work Phone: 09-30-2007 15:43-0500 Head Circumference 0 cm Moira Ramsey [facility] Internal Medicine Work Phone: 09-30-2007 15:43-0500 Height 172.72 cm Moira Ramsey [facility] Internal Medicine Work Phone: 09-30-2007 15:43-0500 Pulse (Heart Rate) 64 /min Moira Ramsey [facility] Internal Medicine Work Phone: Comment on above: Pattern: Regular 09-30-2007 15:43-0500 Respiratory Rate 16 /min Moira Ramsey [facility] Internal Medicine Work Phone: Comment on above: Pattern: Unlabored 09-30-2007 15:43-0500 Weight 78.47 kg Moira Ramsey [facility] Internal Medicine Work Phone: 09-22-2007 15:28-0500 BMI (Body Mass Index) 27.06 kg/m2 Moira Ramsey [facility] Internal Medicine Work Phone: 09-22-2007 15:28-0500 Body Temperature 97.7 [degF] Moira Ramsey [facility] Internal Medicine Work Phone: Comment on above: Method: Oral 09-22-2007 15:28-0500 Body weight 80.74 kg Moira Ramsey [facility] Internal Medicine Work Phone: 09-22-2007 15:28-0500 BP Diastolic 72 mm[Hg] Moira Ramsey [facility] Internal Medicine Work Phone: Comment on above: Patient Position: Sitting; Cuff Location : Left Arm; Cuff Size: Standard 09-22-2007 15:28-0500 BP Systolic 112 mm[Hg] Moira Ramsey [facility] Internal Medicine Work Phone: Comment on above: Patient Position: Sitting; Cuff Location : Left Arm; Cuff Size: Standard 09-22-2007 15:28-0500 BSA (Body Surface Area) 1.95 m2 Moira Ramsey [facility] Internal Medicine Work Phone: 09-22-2007 15:28-0500 Head Circumference 0 cm Moira Ramsey [facility] Internal Medicine Work Phone: 09-22-2007 15:28-0500 Height 172.72 cm Moira Ramsey [facility] Internal Medicine Work Phone: 09-22-2007 15:28-0500 Pulse (Heart Rate) 56 /min Moira Ramsey [facility] Internal Medicine Work Phone: Comment on above: Pattern: Regular 09-22-2007 15:28-0500 Respiratory Rate 16 /min Moira Ramsey [facility] Internal Medicine Work Phone: Comment on above: Pattern: Unlabored 09-22-2007 15:28-0500 Weight 80.74 kg Moira Ramsey [facility] Internal Medicine Work Phone: 07-01-2007 16:39-0500 Body weight 0 kg Moira Ramsey [facility] Internal Medicine Work Phone: 07-01-2007 16:39-0500 BP Diastolic 80 mm[Hg] Moira Ramsey [facility] Internal Medicine Work Phone: Comment on above: Patient Position: Undefined; Cuff Locati on: Undefined; Cuff Size: Undefined 07-01-2007 16:39-0500 BP Systolic 110 mm[Hg] Moira Ramsey [facility] Internal Medicine Work Phone: Comment on above: Patient Position: Undefined; Cuff Locati on: Undefined; Cuff Size: Undefined 07-01-2007 16:39-0500 Head Circumference 0 cm Moira Ramsey [facility] Internal Medicine Work Phone: 07-01-2007 16:39-0500 Height 0 cm Moira Ramsey [facility] Internal Medicine Work Phone: 07-01-2007 16:39-0500 Weight 0 kg Moira Ramsey [facility] Internal Medicine Work Phone: 07-01-2007 15:51-0500 BMI (Body Mass Index) 27.06 kg/m2 Moira Ramsey [facility] Internal Medicine Work Phone: 07-01-2007 15:51-0500 Body Temperature 98.7 [degF] Moira Ramsey [facility] Internal Medicine Work Phone: Comment on above: Method: Oral 07-01-2007 15:51-0500 Body weight 80.74 kg Moira Ramsey [facility] Internal Medicine Work Phone: 07-01-2007 15:51-0500 BP Diastolic 98 mm[Hg] Moira Ramsey [facility] Internal Medicine Work Phone: Comment on above: Patient Position: Sitting; Cuff Location : Left Arm; Cuff Size: Standard 07-01-2007 15:51-0500 BP Systolic 132 mm[Hg] Moira Ramsey [facility] Internal Medicine Work Phone: Comment on above: Patient Position: Sitting; Cuff Location : Left Arm; Cuff Size: Standard 07-01-2007 15:51-0500 BSA (Body Surface Area) 1.95 m2 Moira Ramsey [facility] Internal Medicine Work Phone: 07-01-2007 15:51-0500 Head Circumference 0 cm Moira Ramsey [facility] Internal Medicine Work Phone: 07-01-2007 15:51-0500 Height 172.72 cm Moira Ramsey [facility] Internal Medicine Work Phone: 07-01-2007 15:51-0500 Pulse (Heart Rate) 60 /min Moira Ramsey [facility] Internal Medicine Work Phone: Comment on above: Pattern: Regular 07-01-2007 15:51-0500 Respiratory Rate 16 /min Moira Ramsey [facility] Internal Medicine Work Phone: Comment on above: Pattern: Unlabored 07-01-2007 15:51-0500 Weight 80.74 kg Moira Ramsey [facility] Internal Medicine Work Phone: 05-01-2007 10:37-0400 BMI (Body Mass Index) 26.47 kg/m2 Moira Ramsey [facility] Internal Medicine Work Phone: 05-01-2007 10:37-0400 Body Temperature 98 [degF] Moira Ramsey [facility] Internal Medicine Work Phone: Comment on above: Method: Oral 05-01-2007 10:37-0400 Body weight 78.95 kg Moira Ramsey [facility] Internal Medicine Work Phone: 05-01-2007 10:37-0400 BP Diastolic 82 mm[Hg] Moira Ramsey [facility] Internal Medicine Work Phone: Comment on above: Patient Position: Sitting; Cuff Location : Right Arm; Cuff Size: Standard 05-01-2007 10:37-0400 BP Systolic 130 mm[Hg] Moira Ramsey [facility] Internal Medicine Work Phone: Comment on above: Patient Position: Sitting; Cuff Location : Right Arm; Cuff Size: Standard 05-01-2007 10:37-0400 BSA (Body Surface Area) 1.93 m2 Moira Ramsey [facility] Internal Medicine Work Phone: 05-01-2007 10:37-0400 Head Circumference 0 cm Moira Ramsey [facility] Internal Medicine Work Phone: 05-01-2007 10:37-0400 Height 172.72 cm Moira Ramsey [facility] Internal Medicine Work Phone: 05-01-2007 10:37-0400 Pulse (Heart Rate) 80 /min Moira Ramsey [facility] Internal Medicine Work Phone: Comment on above: Pattern: Regular 05-01-2007 10:37-0400 Respiratory Rate 16 /min Moira Ramsey [facility] Internal Medicine Work Phone: Comment on above: Pattern: Unlabored 05-01-2007 10:37-0400 Weight 78.95 kg Moira Ramsey [facility] Internal Medicine Work Phone: 03-27-2007 11:58-0400 BMI (Body Mass Index) 26.47 kg/m2 Moira [facility] Internal Medicine Work Phone: 03-27-2007 11:58-0400 Body Temperature 97.5 [degF] Moira Ramsey [facility] Internal Medicine Work Phone: Comment on above: Method: Oral 03-27-2007 11:58-0400 Body weight 78.95 kg Moira Ramsey [facility] Internal Medicine Work Phone: 03-27-2007 11:58-0400 BP Diastolic 88 mm[Hg] Moira Ramsey [facility] Internal Medicine Work Phone: Comment on above: Patient Position: Sitting; Cuff Location : Left Arm; Cuff Size: Standard 03-27-2007 11:58-0400 BP Systolic 132 mm[Hg] Moira Ramsey [facility] Internal Medicine Work Phone: Comment on above: Patient Position: Sitting; Cuff Location : Left Arm; Cuff Size: Standard 03-27-2007 11:58-0400 BSA (Body Surface Area) 1.93 m2 Moira Ramsey [facility] Internal Medicine Work Phone: 03-27-2007 11:58-0400 Head Circumference 0 cm Moira Ramsey [facility] Internal Medicine Work Phone: 03-27-2007 11:58-0400 Height 172.72 cm Moira Ramsey [facility] Internal Medicine Work Phone: 03-27-2007 11:58-0400 Pulse (Heart Rate) 68 /min Moira Ramsey [facility] Internal Medicine Work Phone: Comment on above: Pattern: Regular 03-27-2007 11:58-0400 Respiratory Rate 18 /min Moiar Ramsey [facility] Internal Medicine Work Phone: Comment on above: Pattern: Unlabored 03-27-2007 11:58-0400 Weight 78.95 kg Moira Ramsey [facility] Internal Medicine Work Phone: 12-17-2006 15:23-0400 BMI (Body Mass Index) 27.13 kg/m2 Moira [facility] Internal Medicine Work Phone: 12-17-2006 15:23-0400 Body weight 80.94 kg Moira Ramsey [facility] Internal Medicine Work Phone: 12-17-2006 15:23-0400 BP Diastolic 64 mm[Hg] Moira Ramsey [facility] Internal Medicine Work Phone: Comment on above: Patient Position: Sitting; Cuff Location : Left Arm; Cuff Size: Standard 12-17-2006 15:23-0400 BP Systolic 102 mm[Hg] Moira Ramsey [facility] Internal Medicine Work Phone: Comment on above: Patient Position: Sitting; Cuff Location : Left Arm; Cuff Size: Standard 12-17-2006 15:23-0400 BSA (Body Surface Area) 1.95 m2 Moira Ramsey [facility] Internal Medicine Work Phone: 12-17-2006 15:23-0400 Head Circumference 0 cm Moira Ramsey [facility] Internal Medicine Work Phone: 12-17-2006 15:23-0400 Height 172.72 cm Moira Ramsey [facility] Internal Medicine Work Phone: 12-17-2006 15:23-0400 Pulse (Heart Rate) 60 /min Moira Ramsey [facility] Internal Medicine Work Phone: Comment on above: Pattern: Regular 12-17-2006 15:23-0400 Respiratory Rate 16 /min Moira Ramsey [facility] Internal Medicine Work Phone: Comment on above: Pattern: Unlabored 12-17-2006 15:23-0400 Weight 80.94 kg Moira Ramsey [facility] Internal Medicine Work Phone: 09-12-2006 08:12-0500 BMI (Body Mass Index) 27.6 kg/m2 Moira [facility] Internal Medicine Work Phone: 09-12-2006 08:12-0500 Body [...] Start: 06-24-2025 End: 06-24-2025 ambulatory Arlene Silva Facility:[facility] Start: 06-01-2025 ambulatory Maurilio Velásquez y:[facility] Start: 02-01-2025 End: 02-01-[address] Maurilio Castillo MD Work Phone: [facility] Work Phone: Start: 02-01-2025 End: 02-01-[address] Maurilio Castillo MD -Laboratory [facility] Start: 02-01-2025 End: 02-01-2025 ambulatory Maurilio Castillo Facility:[facility] Start: 12-21-2024 End: 12-21-[address] Maurilio Castillo MD Work Phone: [facility] Work Phone: Start: 12-21-2024 End: 12-21-[address] Maurilio Castillo MD -Outpatient Bone Densitometry Work Phone: Start: 12-21-2024 End: 12-21-2024 ambulatory Maurilio Castillo Facility:[facility] Start: 10-06-2024 End: 10-06-[address] [facility] Start: 10-05-2024 End: 10-06-2024 ambulatory Maurilio Castillo Facility:[facility] Start: 10-05-2024 End: 10-05-[address] Irina Lake MD -Physical Therapy Work Phone: Start: 07-12-2024 End: 07-12-2024 ambulatory Maurilio Castillo Facility:[facility] Start: 12-15-2023 End: 12-15-2023 ambulatory [facility] Work Phone: Start: 12-15-2023 End: 12-15-2023 Patient encounter procedure [facility]-Outpatient Breast Imaging Work Phone: Start: 08-27-2023 End: 08-27-2023 ambulatory [facility] Work Phone: Start: 08-27-2023 End: 08-27-2023 Patient encounter procedure [facility] Start: 02-17-2023 End: 02-17-[address] Maurilio Castillo Work Phone: [facility] Work Phone: Start: 02-17-2023 End: 02-17-[address] Maurilio Castillo Work Phone: [facility] Start: 12-17-[address] Maurilio Castillo Work Phone: [facility] Oncology Start: 12-17-2022 End: 12-17-[address] Maurilio Castillo Work Phone: [facility] Start: 12-11-2022 End: 12-11-[address] Maurilio Castillo Work Phone: [facility] Work Phone: Start: 12-11-2022 End: 12-11-[address] Maurilio Castillo Work Phone: [facility]-Outpatient Breast Imaging Start: 11-15-2022 End: 11-15-[address] Maurilio Castillo Work Phone: [facility] Start: 10-23-2022 End: 10-23-[address] Maurilio Castillo Work Phone: [facility] Work Phone: Start: 10-23-2022 End: 10-23-[address] Maurilio Castillo Work Phone: [facility] Start: 09-18-2022 End: 09-18-[address] Maurilio Castillo Work Phone: [facility] Start: 09-05-2022 End: 09-05-[address] Maurilio Castillo Work Phone: [facility] Work Phone: Start: 09-05-2022 End: 01-12-[address] [facility] Start: 08-01-2022 End: 08-01-[address] Maurilio Castillo Work Phone: [facility] Start: 06-25-2022 End: 06-25-2022 ambulatory [facility] Work Phone: Start: 06-25-2022 End: 06-25-2022 [facility] Start: 05-10-2022 End: 05-10-2022 Patient encounter procedure [facility]-Laboratory, Specimen Start: 03-27-2022 End: 03-27-[address] Maurilio Castillo [facility] Start: 12-12-2021 End: 12-12-[address] Maurilio Castillo Work Phone: [facility] Start: 12-06-2021 End: 12-06-[address] Maurilio Castillo Work Phone: [facility]-Outpatient Breast Imaging Start: 11-28-2021 End: 11-28-2021 Patient encounter procedure [facility] Start: 07-02-2018 End: 07-02-2018 Office outpatient visit [...] 06-06-2016 End: 06-06-2016 Patient encounter procedure Moira Maria Internal Medicine Start: 05-16-2016 End: 05-16-2016 Periodic [...] 10-23-2015 Office outpatient visit 15 minutes Moira Maria [facility] Medicine Start: 10-03-2015 End: 10-03-2015 Office outpatient visit 25 minutes Moira Maria Internal Medicine Start: 08-28-2015 End: 08-28-2015 Office outpatient visit 15 minutes Moira Maria Internal Medicine Start: 07-18-2015 End: 07-18-2015 Office outpatient visit 25 minutes Moira Maria Internal Medicine Start: 05-15-2015 End: 05-15-2015 Phone Encounter Moira Maria [employer] Administrator al Medicine Start: 05-12-2015 End: 05-14-2015 Office outpatient visit 25 minutes Moira Maria Internal Medicine Start: 03-20-2015 End: 03-20-2015 Office outpatient visit 25 minutes Moira Maria Internal Medicine Start: 01-23-2015 End: 01-23-2015 Phone Encounter Moira Maria [facility] [employer] [facility] al Medicine Start: 11-14-2014 End: 11-14-2014 Office outpatient visit 25 minutes Moira Maria Internal Medicine Start: 11-03-2014 End: 11-03-2014 Office outpatient visit 15 minutes Moira Maria [facility] Start: 10-05-2014 End: 10-05-2014 Office outpatient visit 25 minutes Moira Maria Internal Medicine Start: 08-29-2014 End: 08-29-2014 Phone Encounter Moira Maria [employer] [facility] al Medicine Start: 07-18-2014 End: 07-18-2014 Office outpatient visit 25 minutes Moira Maria Internal Medicine Start: 04-13-2014 End: 04-13-2014 Office outpatient visit 15 minutes Moira Ramsey [facility] Internal Medicine Start: 04-04-2014 End: 04-05-2014 Office outpatient visit 15 minutes Moira Ramsey [facility] Internal Medicine Start: 03-15-2014 End: 03-16-2014 Patient encounter procedure Moira Roxy Maria Internal Medicine Start: 12-27-2013 End: 12-27-2013 Patient encounter procedure Moira Roxy [facility] Internal Medicine Start: 11-02-2013 End: 11-02-2013 Patient encounter procedure Moira Roxy [facility] Internal Medicine Start: 10-29-2013 End: 10-29-2013 Patient encounter procedure Moira Roxy [facility] Internal Medicine Start: 07-02-2013 End: 07-04-2013 Patient encounter procedure Moira Roxy [facility] Internal Medicine Start: 03-30-2013 End: 03-30-2013 Patient encounter procedure Moira Ramsey [facility] Internal Medicine Start: 12-29-2012 End: 12-29-2012 Patient encounter procedure Moira Ramsey [facility] Internal Medicine Start: 10-26-2012 End: 10-26-2012 Office outpatient visit 25 minutes Moira Ramsey [facility] Internal Medicine Start: 10-09-2012 End: 10-09-2012 Phone Encounter Moira Ramsey [facility] Administrator al Medicine Start: 10-09-2012 End: 10-09-2012 Historical Summary Moira Ramsey [facility] al Medicine Start: 10-09-2012 End: 10-09-2012 Prescription Refill Moira Ramsey [facility] al Medicine Start: 10-05-2012 End: 10-05-2012 Patient encounter procedure Moira Ramsey [facility] Internal Medicine Start: 09-25-2012 End: 09-25-2012 Annotation/Addendum Moira Ramsey [facility] al Medicine Start: 09-15-2012 End: 09-15-2012 Patient encounter procedure Moira Ramsey [facility] Internal Medicine Start: 09-02-2012 End: 09-02-2012 Office outpatient visit 15 minutes Moira Ramsey [facility] Internal Medicine Start: 07-21-2012 End: 07-21-2012 Office outpatient visit 15 minutes Moira Ramsey [facility] Internal Medicine Start: 07-08-2012 End: 07-08-2012 Patient encounter procedure Moira Ramsey [facility] Internal Medicine Start: 05-08-2012 End: 05-08-2012 Patient encounter procedure Moira Ramsey [facility] Internal Medicine Start: 03-25-2012 End: 03-26-2012 Patient encounter procedure Moira Ramsey [facility] Internal Medicine Start: 12-24-2011 End: 12-24-2011 Phone Encounter Moiraevelia Ramsey [facility] Administrator al Medicine Start: 12-23-2011 End: 12-23-2011 Patient encounter procedure Moira Ramsey [facility] Internal Medicine Start: 11-04-2011 End: 11-04-2011 Patient encounter procedure Moira Ramsey [facility] Internal Medicine Start: 09-24-2011 End: 09-24-2011 Patient encounter procedure Moira Ramsey [facility] Internal Medicine Start: 09-12-2011 End: 09-12-2011 Patient encounter procedure Moira Ramsey [facility] Internal Medicine Start: 07-15-2011 End: 07-15-2011 Patient encounter procedure Moiraevelia Ramirezon [facility] Internal Medicine Start: 06-21-2011 End: 06-21-2011 Patient encounter procedure Moira Ramsey [facility] Internal Medicine Start: 03-29-2011 End: 03-29-2011 Phone Encounter Moiraevelia Ramsey [facility] Administrator al Medicine Start: 03-20-2011 End: 03-20-2011 Patient encounter procedure Moiraevelia Ramirezon [facility] Internal Medicine Start: 01-08-2011 End: 01-08-2011 Patient encounter procedure Moira Ramsey [facility] Internal Medicine Start: 12-18-2010 End: 12-18-2010 Admission Note Moira Roxy [facility] [employer] Administrator al Medicine Start: 12-07-2010 End: 12-07-2010 Phone Encounter Moiraevelia Ramsey [facility] Administrator al Medicine Start: 11-23-2010 End: 11-23-2010 Phone Encounter Moiraevelia Ramsey [facility] Administrator al Medicine Start: 11-16-2010 End: 11-18-2010 Patient encounter procedure Moiraevelia Ramirezon [facility] Internal Medicine Start: 10-23-2010 End: 10-23-2010 Patient encounter procedure Moira Ramsey [facility] Internal Medicine Start: 10-22-2010 End: 10-22-2010 Patient encounter procedure Moiraevelia Ramirezon [facility] Internal Medicine Start: 08-14-2010 End: 08-14-2010 Patient encounter procedure Moiraevelia Ramirezon [facility] Internal Medicine Start: 07-18-2010 End: 07-18-2010 Patient encounter procedure Moira Ramirezon [facility] Internal Medicine Start: 07-16-2010 End: 07-16-2010 Patient encounter procedure Moira Roxy [facility] Internal Medicine Start: 06-12-2010 End: 06-12-2010 Patient encounter procedure Moira Ramsey [facility] Internal Medicine Start: 06-01-2010 End: 06-01-2010 Patient encounter procedure Moiraevelia Ramirezon [facility] Internal Medicine Start: 03-07-2010 End: 03-07-2010 Patient encounter procedure Moiraevelia Ramsey [facility] Internal Medicine Start: 01-03-2010 End: 01-03-2010 Office outpatient visit 25 minutes Moira Roxy [facility] Internal Medicine Start: 11-29-2009 End: 11-29-2009 Patient encounter procedure Moira Roxy [facility] Internal Medicine Start: 09-04-2009 End: 09-04-2009 Patient encounter procedure Moiraevelia Ramirezon [facility] Internal Medicine Start: 09-01-2009 End: 09-01-2009 Annotation/Addendum Moira Roxy [facility] [employer] Administrator al Medicine Start: 07-19-2009 End: 07-19-2009 Patient encounter procedure Moiraevelia Ramirezon [facility] Internal Medicine Start: 06-14-2009 End: 06-15-2009 Patient encounter procedure Moiar Roxy [facility] Internal Medicine Start: 03-01-2009 End: 03-01-2009 Patient encounter procedure Moiraevelia Ramirezon [facility] Internal Medicine Start: 01-18-2009 End: 01-18-2009 Patient encounter procedure Moiraevelia Ramirezon [facility] Internal Medicine Start: 10-18-2008 End: 10-18-2008 Patient encounter procedure Moira Roxy [facility] Internal Medicine Start: 07-20-2008 End: 07-20-2008 Office outpatient visit 15 minutes Moira Ramsey [facility] Internal Medicine Start: 07-06-2008 End: 07-07-2008 Patient encounter procedure Moira Roxy [facility] Internal Medicine Start: 04-20-2008 End: 04-20-2008 Patient encounter procedure Moira Roxy [facility] Internal Medicine Start: 04-14-2008 End: 04-14-2008 Office outpatient visit 25 minutes Moira Ramsey [facility] Internal Medicine Start: 03-30-2008 End: 03-31-2008 Patient encounter procedure Moira Roxy [facility] Internal Medicine Start: 02-08-2008 End: 02-08-2008 Office outpatient visit 15 minutes Moira Ramsey [facility] Internal Medicine Start: 01-06-2008 End: 01-07-2008 Office outpatient visit 40 minutes Moira Ramsey [facility] Internal Medicine Start: 10-05-2007 End: 10-05-2007 Office outpatient new 30 minutes Moira Ramsey [facility] Internal Medicine Start: 09-30-2007 End: 09-30-2007 Patient encounter procedure Moira Ramsey [facility] Internal Medicine Start: 09-22-2007 End: 09-22-2007 Erroneous Entry Moira Ramsey [facility] [employer] Marketing Administrator al Medicine Start: 09-22-2007 End: 09-22-2007 Office outpatient visit 15 minutes Moira Ramsey [facility] Internal Medicine Start: 07-01-2007 End: 07-02-2007 Office outpatient visit 25 minutes Moira Ramsey [facility] Internal Medicine Start: 05-01-2007 End: 05-01-2007 Office outpatient visit 25 minutes Moira Ramsey [facility] Internal Medicine Start: 03-27-2007 End: 03-29-2007 Office outpatient visit 25 minutes Moira Ramsey [facility] Internal Medicine Start: 12-17-2006 End: 12-18-2006 Office outpatient visit 40 minutes Moira Ramsey [facility] Internal Medicine Start: 09-12-2006 End: 09-12-2006 Patient encounter procedure Moira Ramsey [facility] Internal Medicine Start: 07-11-2006 End: 07-11-2006 Historical Summary Moira Ramsey [facility] [employer] And Marketing Administrator al Medicine Procedures Date Procedure Procedure Detail [...] Oncology Visit Report Comments: See Note; NOTES: [facility] Medical Oncology [address] [place] [address] OFFICE VISIT Date of Service: 09/16/18 1336 MR#: [id number] Acct: [id number] Name: MAYA CURRY Rep #: [id number] : 1950 From: Giovanni Peralta MD Age/Sex: 68/F Location: OMD Status: Signed Subjective - Date of Service Date of Service:: 09/16/18 - Chief Complaint F/u for breast cancer - History of Present Illness 68y.o.woman was diagnosed with right breast cancer, stage IIA (T2, N0, M0), ER positive, IL negative, HER2 negative. She underwent right lumpectomy [...] Chronic Code Visit Office Visits / Consults: 80600 OV L3 Est 09/16/18 5815 <Electronically signed by Giovanni Peralta MD> Date Giovanni Rodney Signature: Date (if applicable) CC: Moira Ramsey Start: 09-01-2018 End: 09-01-2018 Dexa Bone Density Study Comments: See Note; NOTES: [facility] Imaging Services [address] [place] [address] Dexa Bone Density Study MR#: [id number] Acct: [id number] Name: MAYA CURRY Rep #: [id number] : 1950 F 68 From: Miguel Barrios MD PCP: Moira Ramsey DO Status: [facility] CLI Study: Dexa Bone Density Study Date of Exam: 09/01/18 Exam# [id number] Ordering Dr: Nelly Auguste JUDICIAL REPORTERSilvia STUDY: DUAL ENERGY X-RAY ABSORPTIOMETRY / DXA [...] Miguel Barrios MD at 13:58 EST Tel [phone], Service support , CC: Moira Auguste NP Supervisor [place]: Signed Moira Ramsey Start: 09-01-2018 End: 09-02-2018 SCREENING MAMM (CAD), BILAT Comments: See Note; NOTES: [facility] Imaging Services [address] [place] [address] SCREENING MAMM (CAD), BILAT MR#: [id number] Acct: [id number] Name: MAYA CURRY Rep #: [id number] : 1950 F 68 From: Miguel Barrios MD PCP: Moira Ramsey DO Status: [facility] CLI Study: SCREENING MAMM (CAD), BILAT Date of Exam: 09/01/18 Exam# [id number] Ordering Dr: Nelly Auguste JUDICIAL REPORTER-[place]anning MAMMOGRAPHY - BILATERAL SCREENING REASON FOR EXAM: [...] delay biopsy of a clinically suspicious abnormality. [id number] Electronically Signed: Miguel Barrios MD at 9:48 EST Tel [phone], Service support , CC: Moira Ramsey DO; Nelly Auguste NP Supervisor [place]: Signed Moira Ramsey Start: 03-19-2018 Stool Occult Blood (TAMI) Dr. Maurilio dennis Work Phone: Start: 03-18-2018 End: 03-18-2018 Oncology Visit Report Comments: See Note; NOTES: [facility] Oncology [address] [place] [address]. [place] [address] OFFICE VISIT Date of Service: 03/18/18 1315 MR#: [id number] Acct: [id number] Name: MAYA CURRY Rep #: [id number] : 1950 From: Nelly GRIJALVA Age/Sex: 67/F Location: OMD Status: Signed Subjective - Date of Service Date of Service:: 03/18/18 - Chief Complaint F/u for breast cancer - History of Present Illness 67y.o.woman was diagnosed with right breast cancer, stage IIA (T2, N0, M0), ER positive, IL negative, HER2 negative. She underwent right lumpectomy [...] months has had a tooth extraction and gum surgery under the care of oral surgeon Dr. [...] are further lab aberrancies. Nelly Auguste, MSN, [employer], AOCNP Medications: Prescriptions This Visit Medication Instructions [...] Spine Lumbar (Routine) Comments: See Note; NOTES: [facility] Imaging Services [address] [place] [address] Spine Lumbar (Routine) MR#: [id number] Acct: [id number] Name: MAYA CURRY Rep #: [id number] : 1950 F 67 From: Inez Skelton MD PCP: Moira Ramsey DO Status: REG CLI Study: Spine Lumbar (Routine) Date of Exam: 01/09/18 Exam# [id number] Ordering Dr: Mally Huynh STUDY: MRI LUMBAR [...] , CC: Mally Huynh; Moira Ramsey DO [employer]: Signed Lizy Tolentino Work Phone: Start: 10-14-2017 End: 10-14-2017 Ankle min 3 Views Comments: See Note; NOTES: [facility] Imaging Services [address] [place] [address] Ankle min 3 Views MR#: [id number] Acct: [id number] Name: MAYA CURRY Rep #: [id number] : 1950 F 67 From: Miguel Barrios MD PCP: Moira Ramsey DO Status: REG CLI Study: Ankle min 3 Views Date of Exam: 10/14/17 Exam# [id number] Ordering Dr: Isabella Romero STUDY: X-RAY - [...] Miguel Barrios MD at 20:03 EST Tel [phone], Service support , CC: RUDI Romero; Moira Ramsey DO Supervisor [employer]: Signed Isabella Romero Start: 10-14-2017 End: 10-14-2017 Foot min 3 Views Comments: See Note; NOTES: [facility] Imaging Services [address] [place] [address] Foot min 3 Views MR#: [id number] Acct: [id number] Name: MAYA CURRY Rep #: [id number] : 1950 F 67 From: Miguel Barrios MD PCP: Moira Ramsey DO Status: REG CLI Study: Foot min 3 Views Date of Exam: 10/14/17 Exam# [id number] Ordering Dr: Isabella Romero STUDY: X-RAY - [...] Miguel Barrios MD at 20:03 EST Tel [phone], Service support , CC: RUDI Romero; Moira Ramsey DO Supervisor [employer]: Signed Isabella Romero Start: 09-10-2017 End: 09-11-2017 Tibia AND Fibula 2 Views Comments: See Note; NOTES: [facility] Imaging Services [address] [place] [address] Tibia AND Fibula 2 Views MR#: [id number] Acct: [id number] Name: MAYA CURRY Rep #: [id number] : 1950 F 67 From: Miguel Barrios MD PCP: Moira Ramsey DO Status: REG CLI Study: Tibia AND Fibula 2 Views Date of Exam: 09/10/17 Exam# [id number] Ordering Dr: Giovanni Peralta MD STUDY: X-RAY [...] Miguel Barrios MD at 9:36 EST Tel [phone], Service support , CC: Giovanni Peralta MD; Moira Ramsey DO Supervisor [employer]: Signed Moira Ramsey Start: 09-10-2017 End: 09-11-2017 Foot 2 Views Comments: See Note; NOTES: [facility] Imaging Services [address] [place] [address] Foot 2 Views MR#: [id number] Acct: [id number] Name: MAYA CURRY Rep #: [id number] : 1950 F 67 From: Miguel Estrada MD PCP: Moira Ramsey DO Status: REG CLI Study: Foot 2 Views Date of Exam: 09/10/17 Exam# [id number] Ordering Dr: Giovanni Peralta MD STUDY: X-RAY [...] CC: Giovanni Peralta MD; Moira Ramsey DO Supervisor [employer]: Signed Moira Ramsey Start: 07-04-2017 End: 07-04-2017 SCREENING MAMM (CAD), BILAT Comments: See Note; NOTES: [facility] Imaging Services [address] [place] [address] SCREENING MAMM (CAD), BILAT MR#: [id number] Acct: [id number] Name: MAYA CURRY Rep #: [id number] : 1950 F 67 From: Miguel Barrios MD PCP: Moira Ramsey DO Status: [facility] Study: SCREENING MAMM (CAD), BILAT Date of Exam: 07/04/17 Exam# [id number] Ordering Dr: Giovanni Peralta MD MAMMOGRAPHY - [...] delay biopsy of a clinically suspicious abnormality. [id number] Electronically Signed: Miguel Barrios MD at 14:41 EST Tel [phone], Service support , CC: Giovanni Peralta MD; Moira Ramsey DO [employer]: Signed Moira Ramsey Start: 03-25-2017 End: 03-26-2017 Knee 1 or 2 Views Comments: See Note; NOTES: [facility] Imaging Services [address] [place] [address] Verdana 4d Knee 1 or 2 Views MR#: [id number] Acct: [id number] Name: MAYA CURRY Rep #: [id number] : 1950 66 From: Miguel Estrada MD PCP: Moira Ramsey DO Status: REG CLI Study: Knee 1 or 2 Views Date of Exam: 03/25/17 Exam# [id number] Ordering Dr: Moira Ramsey DO STUDY: X-RAY [...] Service support , CC: Moira Ramsey DO Super[employer]: Signed Moira Ramsey Work Phone: Start: 03-25-2017 End: 03-26-2017 Knee 4 or More Views Comments: See Note; NOTES: [facility] Imaging Services [address] [place] [address] Verdana 4d Knee 4 or More Views MR#: [id number] Acct: [id number] Name: MAYA CURRY Rep #: [id number] : 1950 F 66 From: Miguel Estrada MD PCP: Moira Ramsey DO Status: REG CLI Study: Knee 4 or More Views Date of Exam: 03/25/17 Exam# [id number] Ordering Dr: Moira Ramsey DO STUDY: X-RAY [...] 23:29 EDT , Service support , CC: Moira Ramsey DO Supervisor [employer]: Signed Moira Ramsey Work Phone: Start: 03-25-2017 End: 03-26-2017 Thyroid Comments: See Note; NOTES: [facility] Imaging Services [address] [place] [address] Verdana 4d Thyroid MR#: [id number] Acct: [id number] Name: MAYA CURRY Rep #: [id number] : 1950 F 66 From: Miguel Estrada MD PCP: Moira Ramsey DO Status: REG CLI Study: Thyroid Date of Exam: 03/25/17 Exam# [id number] Ordering Dr: Moira Ramsey DO STUDY: THYROID ULTRASOUND REASON FOR [...] Service support , CC: Moira Ramsey DO Supervisor [employer]: Signed Moira Ramsey Work Phone: Start: 01-06-2017 End: 01-06-2017 Emergency Department Summary Comments: See Note; NOTES: [facility] Medical Records Department [address] [place] [address] Emergency Department Summary MR#: [id number] Acct: [id number] Name: MAYA CURRY Rep #: [id number] : 1950 66 From: Igor Sneed MD PCP: Moira Ramsey DO Status: [facility] ER DATE OF SERVICE: 01/05/2017 CHIEF COMPLAINT: [...] C: Moira Ramsey DO T: NTS JOB: [id number] 01/06/17 1543 <Electronically signed by Igor Sneed MD> Date Igor Sneed MD Cosigner Signature (If Indicated): Date CC: Moira Ramsey DO Date Dictated: 01/05/171558 Date Transcribed: 01/05/171558 [employer]: Signed Moira Ramsey Start: 01-05-2017 End: 01-05-2017 Discharge Instruction Comments: See Note; NOTES: [facility] Medical Records Department [address] [place] [address] Discharge Instruction 01/05/17 1600 MR#: [id number] Acct: [id number] Name: MAYA CURRY Rep #: [id number] : 1950 66 From: Igor Sneed MD [...] problems, contact your Primary Care Provider. Call [facility] ([phone]) or report to the closest Emergency Room. Call 911 if necessary. 01/05/17 1628 <Electronically signed by Igor Sneed MD> Date Igor Rodney Signature (If Indicated): Date CC: Moira Casas Start: 08-07-2016 End: 08-07-2016 Dexa Bone Density Study () Comments: See Note; NOTES: [facility] Imaging Services [address] [place] [address] Verda 4d Dexa Bone Density Study () MR#: [id number] Acct: [id number] Name: MAYA CURRY Rep #: [id number] : 1950 F 66 From: Miguel Barrios MD PCP: Moira Ramsey DO Status: REG CLI Study: Dexa Bone Density Study () Date of Exam: 08/07/16 Exam# [id number] Ordering Dr: Moira Ramsey DO STUDY: DUAL [...] Miguel Barrios MD at 11:00 EST Tel [phone], Service support [phone], CC: Moira Ramsey DO Supervisor [employer]: Signed Moira Ramsey Work Phone: Start: 07-03-2016 End: 07-03-2016 Bilat Scrn Digital AND CAD Comments: See Note; NOTES: [facility] Imaging Services [address] [place] [address] Joshdaroly 4d Bilat Scrn Digital AND CAD MR#: [id number] Acct: [id number] Name: MAYA CURRY Rep #: [id number] : 1950 F 66 From: Miguel Barrios MD PCP: Moira Ramsey DO Status: REG CLI Study: Bilat Scrn Digital AND CAD Date of Exam: 07/03/16 Exam# [id number] Ordering Dr: Clarke Nielson MD MAMMOGRAPHY - [...] delay biopsy of a clinically suspicious abnormality. [id number] Electronically Signed: Miguel Barrios MD at 12:42 EST Tel [phone], Service support [phone], CC: Moira Ramsey DO; Clarke Nielson [employer]: Signed Moira Ramsey Start: 07-03-2016 End: 07-03-2016 Tibia AND Fibula 2 Views Comments: See Note; NOTES: [facility] Imaging Services [address] [place] [address] Verdana 4d Tibia AND Fibula 2 Views MR#: [id number] Acct: [id number] Name: MAYA CURRY Rep #: [id number] : 1950 F 66 From: Miguel Barrios MD PCP: Moira Ramsey DO Status: REG CLI Study: Tibia AND Fibula 2 Views Date of Exam: 07/03/16 Exam# [id number] Ordering Dr: Clarke Nielson MD STUDY: X-RAY [...] Miguel Barrios MD at 12:53 EST Tel [phone], Service support [phone], CC: Moira Ramsey DO; Clarke Nielson [employer]: Signed Moira Ramsey Start: 02-21-2016 End: 02-21-2016 Spmtry w/vc expiratory annie w/wo mxml vol vntj _ Oziel Wright Start: 02-21-2016 End: 02-21-2016 Ecg routine ecg w/least 12 lds w/i&r [MEASUREMENTS ANALYSIS] Date of Test: 02/21/2016 11:55:33; Heart Rate: 68; IL Interval: 148; QRS: 82; QT Interval: 386; Corrected QT Interval (QTc): 400; P [place]: 30; QRS [place]: 17; T [place]: 45; Blood Pressure: 128/82 [ECG DIAGNOSTIC STATEMENTS] Date of Test: 02/21/2016 11:55:33; Summary: Sinus Rhythm WITHIN NORMAL LIMITS Moira Ramsey Work Phone: Comment on above: nsr no acute chg Start: 02-11-2016 End: 02-11-2016 Carotid Duplex Ultrasound Comments: See Note; NOTES: [facility] Cardiovascular Services [address] [place] [address] Carotid Duplex Ultrasound 02/09/16922 MR#: [id number] Acct: [id number] Name: MAYA CURRY Rep #: [id number] : 1950 65 From: Sergo Brooks MD [...] the left vertebral artery. Procedure Carotid Duplex 51089. Exam performed in department. Interpretation Summary Mild (<50%) stenosis right extracranial internal carotid. Mild (<50%) stenosis left extracranial internal carotid. Flow within the vertebral arteries is antegrade bilaterally. Ordering Physician: Moira Ramesy Referring Physician: Phyllis Tolbert Performed By: Cheryl Hicks RVT 02/11/16 2148 Date Sergo Brooks MD CC: Moira Ramsey DO Date Dictated: 02/09/16922 Date Transcribed: 02/11/162147 Supervisor [employer]: Signed Moira Ramsey Work Phone: Start: 10-19-2015 End: 10-19-2015 Thyroid Comments: See Note; NOTES: [facility] Imaging Services [address] [place] [address] Joshdana 4d Thyroid MR#: [id number] Acct: [id number] Name: MAYA CURRY Rep #: [id number] : 1950 F 65 From: Miguel Barrios MD PCP: Phyllis Tolbert DO Status: REG CLI Study: Thyroid Date of Exam: 10/19/15 Exam# [id number] Ordering Dr: Phyllis Tolbert DO STUDY: THYROID [...] Miguel Barrios MD at 15:38 EST Tel [phone], Service support [phone], CC: Phyllis Tolbert DO Supervisor [employer]: Signed Phyllis Tolbert Work Phone: Start: 08-31-2015 End: 08-31-2015 Hip min 2 Views Comments: See Note; NOTES: [facility] Imaging Services [address] [place] [address] Verdana 4d Hip min 2 Views MR#: [id number] Acct: [id number] Name: MAYA CURRY Rep #: [id number] : 1950 F 65 From: Garrison Briscoe MD PCP: Phyllis Tolbert DO Status: REG CLI Study: Hip min 2 Views Date of Exam: 08/31/15 Exam# [id number] Ordering Dr: Clarke Nielson MD STUDY: X-RAY [...] FACR at 19:05 EST , Service support [phone], RAD/Hip min 2 Views IMPRESSION: Normal x-ray examination of the pelvis and hip. Electronically Signed: Garrison Briscoe MD, FACR at 19:05 EST , Service support [phone], CC: Phyllis Tolbert DO; Clarke Nielson Super[employer]: Signed Moira Ramsey Start: 08-31-2015 End: 08-31-2015 L/S Spine Min 4 Views Comments: See Note; NOTES: [facility] Imaging Services [address] [place] [address] Verdana 4d L/S Spine Min 4 Views MR#: [id number] Acct: [id number] Name: MAYA CURRY Rep #: [id number] : 1950 F 65 From: Garrison Briscoe MD PCP: Phyllis Tolbert DO Status: REG CLI Study: L/S Spine Min 4 Views Date of Exam: 08/31/15 Exam# [id number] Ordering Dr: Clarke Nielson MD STUDY: X-RAY [...] FACR at 19:06 EST , Service support [phone], RAD/L/S Spine Min 4 Views IMPRESSION: L5-S1 degenerative disc disease. Electronically Signed: Garrison Briscoe MD, FACR at 19:06 EST , Service support [phone], CC: Phyllis Tolbert DO; Clarke Nielson Supervisor [employer]: Signed Moira Ramsey Start: 06-16-2015 End: 06-16-2015 Aorta Comments: See Note; NOTES: [facility] Imaging Services [address] [place] [address] Verdana 4d Aorta MR#: [id number] Acct: [id number] Name: MAYA CURRY Rep #: [id number] : 1950 F 65 From: William Erazo MD PCP: Phyllis Tolbert DO Status: REG CLI Study: Aorta Date of Exam: 06/16/15 Exam# [id number] Ordering Dr: Phyllis Tolbert DO PROCEDURES: ULTRASOUND [...] at 16:47 EDT Tel , Service support [phone], CC: Phyllis Tolbert DO Supervisor [employer]: Signed Phyllis Edward Phone: Start: 11-23-2014 End: 11-23-2014 PT Discharge Summary Comments: See Note; NOTES: [facility] Physical Therapy [facility] [address] [place] [address] Fax REHABILITATION SERVICES DISCHARGE SUMMARY MR#: [id number] Acct: [id number] Name: MAYA CURRY Rep #: [id number] : 1950 64 From: Mari Orozco Referring Dr.: Mariaelena Burr Status: DIS RCR Eval Date: [...] agreeable. Mari Orozco, PT T: NTS JOB: [id number] <Electronically signed by Mari Orozco > 11/23/14 0953 CC: Signed Moira Ramsey Start: 10-17-2014 End: 10-17-2014 Inital Evaluation - PT Comments: See Note; NOTES: [facility] Physical Therapy [facility] [address] [place] [address] Fax REHABILITATION SERVICES INITIAL EVALUATION MR#: [id number] Acct: [id number] Name: MAYA CURRY Rep #: [id number] : 1950 64 From: Mari Orozco Referring Dr.: Mariaelena Burr Status: REG RCR Insurance: [employer] BA Eval Date: DATE OF SERVICE: 10/14/2014 [...] care. Mari Orozco, PT T: NTS JOB: [id number] <Electronically signed by Mari Orozco > 10/17/14 1113 CC: Signed For Medicare only, by signing this I certify the plan of care. _ Physicians Signature Date Moira Ramsey Start: 08-02-2014 End: 08-04-2014 Dexa Bone Density Study (HP) Comments: See Note; NOTES: [facility] Imaging Services [address] [place] [address] Bone Density Report MR#: [id number] Acct: [id number] Name: MAYA CURRY Rep #: [id number] : 1950 F 64 From: Miguel Barrios MD PCP: Phyllis Tolbert DO Status: REG CLI Study: Dexa Bone Density Study (HP) Date of Exam: 08/02/14 Exam# [id number] Ordering Dr: Phyllis Tolbert DO STUDY: DUAL [...] Miguel Barrios MD at 14:28 EST Tel [phone], Service support [phone], CC: Phyllis Tolbert DO Supervisor [employer]: Signed Phyllis Tolbert Work Phone: Start: 08-02-2014 End: 08-02-2014 Thyroid Comments: See Note; NOTES: [facility] Imaging Services [address] [place] [address] Ultrasound Report MR#: [id number] Acct: [id number] Name: MAYA CURRY Rep #: [id number] : 1950 F 64 From: Cnoor Edmonds MD PCP: Phyllis Tolbert DO Status: REG CLI Study: Thyroid Date of Exam: 08/02/14 Exam# [id number] Ordering Dr: Phyllis Tolbert DO STUDY: THYROID [...] MD at 16:48 EST , Service support [phone], CC: Phyllis Tolbert DO Supervisor [employer]: Signed Phyllis Tolbert Work Phone: Start: 06-20-2014 End: 06-20-2014 PT Discharge Summary Comments: See Note; NOTES: [facility] Physical Therapy [facility] [address] [place] [address]. [address] [place] [address] Fax REHABILITATION SERVICES DISCHARGE SUMMARY MR#: [id number] Acct: [id number] Name: MAYA CURRY Rep #: [id number] : 1950 64 From: Mari Orozco Referring Dr.: Cheng FAIR[place]KS Status: PRE RCR Eval Date: Discharge Date: DATE OF SERVICE: This patient was referred to physical therapy by Cheng Rutherford with complaint of left back, hip, thigh and leg symptoms that increased on March 08, 2014 when she bent down to burr picker a bag of clothes in the car. [...] future as indicated. Mari Orozco, PT T: [facility] JOB: [id number] <Electronically signed by Mari Orozco > 06/20/14 1444 CC: Signed Moira Ramsey Start: 04-11-2014 End: 04-12-2014 Spine Lumbar W/WO Contrast Comments: See Note; NOTES: [facility] Imaging Services [address] [place] [address] MRI Report MR#: [id number] Acct: [id number] Name: MAYA CURRY Rep #: [id number] : 1950 F 63 From: Ramos Modi DO PCP: Phyllis Tolbert DO Status: REG CLI Study: Spine Lumbar W/WO Contrast Date of Exam: 04/11/14 Exam# [id number] Ordering Dr: Phyllis Tolbert DO STUDY: MRI [...] at 7:31 EDT Tel , Service support [phone], CC: Phyllis Tolbert DO Supervisor [employer]: Signed Phyllis Tolbert Work Phone: Start: 04-08-2014 End: 04-08-2014 Inital Evaluation - PT Comments: See Note; NOTES: [facility] Physical Therapy [address] [place], [place] [address] Fax REHABILITATION SERVICES INITIAL EVALUATION MR#: [id number] Acct: [id number] Name: MAYA CURRY Rep #: [id number] : 1950 63 From: Mari Orozco Referring Dr.: Cheng [place]IR[place]KS Status: REG RCR Insurance: [employer] [facility] Eval Date: DATE OF SERVICE: 03/31/2014 SUBJECTIVE: This patient was referred to physical therapy by Dr. Cheng Rutherford with a diagnosis of enthesopathy of the hip. She presents to physical therapy with complaint of left back, hip, thigh and leg symptoms that started March 08, 2014 when she leaned over in the car to burr picker a bag of clothes. She reports that her low back and left hip pain is constant, ranging 4 or 5/10-10/10. She also has constant left thigh and leg pain and tingling. The symptoms stop at her ankle. She reports that everything makes her worse. Nothing is making it better. The pain is disturbing her sleep. She states I am up all night with it. She reports that March 24, 2014, she received a left hip cortisone shot and has had maybe slight improvement from it. She reports she has even had to use a cane lately. She reports that she has had recent x-rays of her hip, leg and pelvis. She denies recent back x-rays. She is using Tylenol jebw-owf-aaqdwss only. OBJECTIVE: This patient ambulates independently into [...] 08, 2014 when she bent down to burr picker a light bag of clothes in the [...] course of therapy. Mari Orozco, PT T: NTS JOB: [id number] <Electronically signed by Mari Orozco > 04/08/14 1610 CC: Signed For Medicare only, by signing this I certify the plan of care. _ Physicians Signature Date Moira Ramsey Start: 03-02-2014 End: 03-02-2014 PT Discharge Summary Comments: See Note; NOTES: [facility] Physical Therapy [facility] [facility] [place] [address] Fax REHABILITATION SERVICES DISCHARGE SUMMARY MR#: [id number] Acct: [id number] Name: MAYA CURRY Rep #: [id number] : 1950 63 From: Mari Orozco Referring DrRose Mary: Phyllis Tolbert DO Status: REG RCR Eval [...] discharge. Mari Orozco, PT T: NTS JOB: [id number] <Electronically signed by Mari Orozco > 03/02/14 1118 CC: Signed Moira Ramsey Start: 01-13-2014 End: 01-13-2014 Inital Evaluation - PT Comments: See Note; NOTES: [facility] [address] [facility] [place] [address] Fax REHABILITATION SERVICES INITIAL EVALUATION MR#: [id number] Acct: [id number] Name: MAYA CURRY Rep #: [id number] : 1950 63 From: Mari Orozco Referring Dr.: Phyllis Tolbert DO Status: REG RCR Insurance: [employer] Date: DATE OF SERVICE: 01/06/2014 SUBJECTIVE: This [...] exercising 2-3 times a week here [place] [facility] [place], but is limited at [...] care. Mari Orozco, PT T: NTS JOB: [id number] <Electronically signed by Mari Orozco > 01/13/14 1205 CC: Signed For Medicare only, by signing this I certify the plan of care. _ Physicians Signature Date Phyllis Tolbert Work Phone: Start: 12-28-2013 End: 12-28-2013 Hip min 2 Views Comments: See Note; NOTES: [facility] Imaging Services [address] [place] [address] Radiology Report MR#: [id number] Acct: [id number] Name: MAYA CURRY Rep #: [id number] : 1950 F 63 From: Miguel Barrios MD PCP: Phyllis Tolbert DO Status: REG CLI Study: Hip min 2 Views Date of Exam: 12/28/13 Exam# [id number] Ordering Dr: Phyllis Tolbert DO STUDY: X-RAY [...] Miguel Barrios MD at 16:16 EDT Tel [phone], Service support [phone], CC: Phyllis Tolbert DO Supervisor [employer]: Signed Phyllis Tolbert Work Phone: Start: 12-28-2013 End: 12-28-2013 L/S Spine Min 4 Views Comments: See Note; NOTES: [facility] Imaging Services [address] [place] [address] Radiology Report MR#: [id number] Acct: [id number] Name: RENEMAYA Rep #: [id number] : 1950 F 63 From: Tadeo Lopes MD PCP: Phyllis Tolbert DO Status: REG CLI Study: L/S Spine Min 4 Views Date of Exam: 12/28/13 Exam# [id number] Ordering Dr: Phyllis Tolbert DO STUDY: X-RAY [...] MD at 17:31 EDT , Service support [phone], CC: Phyllis Tolbert DO Supervisor [employer]: Signed Phyllis Tolbert Work Phone: Start: 12-28-2013 End: 12-28-2013 Thyroid Comments: See Note; NOTES: [facility] Imaging Services [address] [place] [address] Ultrasound Report MR#: [id number] Acct: [id number] Name: MAYA CURRY Rep #: [id number] : 1950 F 63 From: Lobo Wilson DO PCP: Phyllis Tolbert DO Status: REG CLI Study: Thyroid Date of Exam: 12/28/13 Exam# [id number] Ordering Dr: Phyllis Tolbert DO STUDY: THYROID [...] Lobo Wilson DO at 20:49 EDT Tel [phone], Service support [phone], CC: Phyllis Tolbert DO Supervisor [employer]: Signed Phyllis Tolbert Work Phone: 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 History of lumbar laminectomy for spinal cord decompression Total hysterectomy Isabella le Plan of Treatment Date Care Activity Detail Author Start: 09-18-2022 Patient referral [facility] Work Phone: Start: 07-02-2018 Provider Instruction s for Treatment Follow up in 3 weeks [facility] Work Phone: Start: 05-21-2018 Provider Instruction s for Treatment [facility] Work Phone: Start: 03-19-2018 Iron binding capacity IRON BIN DING CAPACITY (TIBC) (07367) [facility] Work Phone: Start: 03-19-2018 Iron mass conc IRON (94842) [facility] Work Phone: Start: 03-19-2018 Ferritin mass conc FERRITIN (98685) [facility] Work Phone: Start: 03-19-2018 Cobalamin (Vitamin B12) mass conc VITAMIN B-12 (CYANOCOBALAMIN) (41825) [facility] Work Phone: Start: 03-19-2018 Procedure Education Eprescribe d prescriptions (G8553) [facility] Work Phone: Start: 03-19-2018 Provider Instruction s for Treatment Reviewed [employer] Letter [facility] Work Phone: Start: 03-19-2018 Iron and Iron bindin g capacity panel - Serum or Plasma [facility] Start: 03-18-2018 DXA Bone [Mass/Area] Bone density [facility] Start: 03-18-2018 [facility] Start: 01-15-2018 Provider Instruction s for Treatment [facility] Work Phone: Start: 01-15-2018 25 hydroxy includes fractions if performed CALCIFIDIOL (03579) VIT D 25 [facility] Work Phone: Start: 01-15-2018 Thyrotropin Qn TSH (58872) [facility] Work Phone: Start: 01-15-2018 Urnls dip stick/tabl et reagent auto microscopy URINALYSIS, W/ MICRO (00337) [facility] Work Phone: Start: 01-15-2018 Urine albumin quantitative MICROALBUMIN: CREATININE RATIO (10731) AND ([id number]) [facility] Work Phone: Start: 01-15-2018 Comprehensive metabolic panel METABOLIC PANEL, COMPREHENSIVE (58557) [facility] Work Phone: Start: 01-15-2018 Lipid panel LIPID PANEL (42965) [facility] Work Phone: Start: 01-15-2018 Blood count complete auto&auto difrntl wbc CBC W/AUTO DIFF WBC (05565) [facility] Work Phone: Start: 12-03-2017 [...] Work Phone: Start: 05-21-2017 Thyrotropin Qn TSH (14341) [facility] Work Phone: Start: 05-21-2017 Urnls dip stick/tabl et reagent auto microscopy URINALYSIS, W/ MICRO (12570) [facility] Work Phone: Start: 05-21-2017 Comprehensive metabolic panel METABOLIC PANEL, COMPREHENSIVE (63463) [facility] Work Phone: Start: 05-21-2017 Urine albumin quantitative MICROALBUMIN: CREATININE RATIO (35941) AND ([id number]) [facility] Work Phone: Start: 05-21-2017 Blood count complete auto&auto difrntl wbc CBC W/AUTO DIFF WBC (26148) [facility] Work Phone: Start: 05-21-2017 Lipid panel LIPID PANEL (56628) [facility] Work Phone: Start: 05-21-2017 25 hydroxy includes fractions if performed CALCIFIDIOL (96574) VIT D 25 [facility] Work [...] Phone: Start: 08-29-2016 Magnesium mass conc MAGNESIUM (36360 ) [facility] Work Phone: Start: 08-29-2016 T3 free mass conc T3, FREE (TRIDOTHYRONINE) (76733) [facility] Work Phone: Start: 08-29-2016 T4 free mass conc T4, FREE (TH YROXINE) (66216) [facility] Work Phone: Start: 08-29-2016 Thyrotropin Qn TSH (74135) [facility] Work Phone: Start: 08-29-2016 25 hydroxy includes fractions if performed CALCIFIDIOL (82823) VIT D 25 [facility] Work Phone: Start: 08-29-2016 Urnls dip stick/tabl et reagent auto microscopy URINALYSIS, W/ MICRO (40424) [facility] Work Phone: Start: 08-29-2016 Urine albumin quantitative MICROALBUMIN: CREATININE RATIO (91314) AND (37887) [facility] Work Phone: Start: 08-29-2016 Comprehensive metabolic panel METABOLIC PANEL, COMPREHENSIVE (33551) [facility] Work Phone: Start: 08-29-2016 Lipid panel LIPID PANEL (30332) [facility] Work Phone: Start: 08-29-2016 Blood count complete auto&auto difrntl wbc CBC W/AUTO DIFF WBC (28067) [facility] Work Phone: Start: 06-27-2016 Provider Instruction s for Treatment [facility] Work Phone: Start: 05-16-2016 Provider Instruction s for Treatment [facility] Work Phone: Start: 05-16-2016 Blood occult fecal h gb deter ia qual feces 1-3 FECAL OCCULT- Tubes sent home (26580) [facility] Work Phone: Start: 02-21-2016 Procedure Education Eprescribe d prescriptions (G8553) [facility] Work Phone: Start: 02-21-2016 Provider Instruction s for Treatment [facility] Work Phone: Start: 02-21-2016 Hepatic function panel HEPATIC FUNCTION PANEL (88085) [facility] Work Phone: Start: 02-21-2016 Lipid panel LIPID PANEL (45753) [facility] Work Phone: Start: 02-21-2016 25 hydroxy includes fractions if performed CALCIFIDIOL (39059) VIT D 25 [facility] Work Phone: Start: 11-21-2015 Procedure Education Eprescribe d prescriptions (G8553) [facility] Work Phone: Start: 11-21-2015 Blood count complete auto&auto difrntl wbc CBC W/AUTO DIFF WBC (85766) [facility] Work Phone: Start: 11-21-2015 Comprehensive metabolic panel METABOLIC PANEL, COMPREHENSIVE (83301) [facility] Work Phone: Start: 11-21-2015 25 hydroxy includes fractions if performed Vitamin D Hydroxy (70791) [facility] Work Phone: Start: 11-21-2015 Lipid panel LIPID PANEL (90332) [facility] Work Phone: Start: 10-23-2015 Provider Instruction s for Treatment [facility] Work Phone: Start: 10-03-2015 Procedure Education Eprescribe d prescriptions (G8553) [facility] Work Phone: Start: 10-03-2015 Comprehensive metabolic panel METABOLIC PANEL, COMPREHENSIVE (65413) [facility] Work Phone: Start: 10-03-2015 Lipid panel LIPID PANEL (73284) [facility] Work Phone: Start: 10-03-2015 Thyrotropin Qn TSH (06356) [facility] Work Phone: Start: 10-03-2015 25 hydroxy includes fractions if performed Vitamin D Hydroxy (43238) [facility] Work Phone: Start: 08-28-2015 [...] FECAL OCCULT HGB ASSAY- tubes sent home (28871) [facility] Work Phone: Start: 03-20-2015 Procedure Education Eprescribe d prescriptions (G8553) [facility] Work Phone: Start: 03-20-2015 Urnls dip stick/tabl et reagent auto microscopy URINALYSIS, W/ MICRO (07026) [facility] Work Phone: Start: 03-20-2015 Blood count complete auto&auto difrntl wbc CBC W/AUTO DIFF WBC (24910) [facility] Work Phone: Start: 03-20-2015 Lipid panel LIPID PANEL (06399) [facility] Work Phone: Start: 03-20-2015 Comprehensive metabolic panel METABOLIC PANEL, COMPREHENSIVE (46746) [facility] Work Phone: Start: 03-20-2015 25 hydroxy includes fractions if performed Vitamin D Hydroxy (61521) [facility] Work Phone: Start: 11-14-2014 Procedure Education Eprescribe d prescriptions (G8553) [facility] Work Phone: Start: 11-14-2014 Blood count complete automated CBC (AUTO) (42305) [facility] Work Phone: Start: 11-14-2014 25 hydroxy includes fractions if performed Vitamin D Hydroxy (95130) [facility] Work Phone: Start: 11-14-2014 Thyrotropin Qn TSH (87238) [facility] Work Phone: Start: 11-14-2014 Comprehensive metabolic panel METABOLIC PANEL, COMPREHENSIVE (85981) [facility] Work Phone: Start: 11-14-2014 Lipid panel LIPID PANEL (50358) [facility] Work Phone: Start: 11-03-2014 Procedure Education Eprescribe d prescriptions (G8553) [facility] Work Phone: Start: 07-18-2014 Patient Education High Blood P ressure (Essential Hypertension) *: blood [facility] Work Phone: Start: 07-18-2014 Procedure Education Eprescribe d prescriptions (G8553) [facility] Work Phone: Start: 07-18-2014 25 hydroxy includes fractions if performed Vitamin D Hydroxy (78413) [facility] Work Phone: Start: 07-18-2014 Blood count complete auto&auto difrntl wbc CBC W/AUTO DIFF WBC (14699) [facility] Work Phone: Start: 07-18-2014 Comprehensive metabolic panel METABOLIC PANEL, COMPREHENSIVE (06190) [facility] Work Phone: Start: 07-18-2014 Lipid panel LIPID PANEL (79209) [facility] Work Phone: Start: 03-15-2014 Lipid panel LIPID PANEL (97377) [facility] Work Phone: Start: 03-15-2014 Blood count manual cell count each CBC WITH MANUAL DIFF (33347) [facility] Work Phone: Start: 03-15-2014 Comprehensive metabolic panel METABOLIC PANEL, COMPREHENSIVE (88207) [facility] Work Phone: Start: 03-15-2014 25 hydroxy includes fractions if performed Vitamin D Hydroxy (25363) [facility] Work Phone: Start: 03-15-2014 Thyrotropin Qn TSH (20107) [facility] Work Phone: Start: 03-15-2014 Procedure Education Eprescribe d prescriptions (G8553) [facility] Work Phone: Start: 11-02-2013 Comprehensive metabolic panel METABOLIC PANEL, COMPREHENSIVE (15458) [facility] Work Phone: Start: 11-02-2013 Thyrotropin Qn TSH (43285) [facility] Work Phone: Start: 11-02-2013 Blood count manual cell count each CBC WITH MANUAL DIFF (67263) [facility] Work Phone: Start: 11-02-2013 25 hydroxy includes fractions if performed Vitamin D Hydroxy (26751) [facility] Work Phone: Start: 11-02-2013 Lipid panel LIPID PANEL (37135) [facility] Work Phone: Start: 10-23-2013 25 hydroxy includes fractions if performed Vitamin D Hydroxy (91710) [facility] Work Phone: Start: 10-23-2013 Blood count manual cell count each CBC WITH MANUAL DIFF (57906) [facility] Work Phone: Start: 10-23-2013 Comprehensive metabolic panel METABOLIC PANEL, COMPREHENSIVE (97039) [facility] Work Phone: Start: 10-23-2013 Lipid panel LIPID PANEL (22855) [facility] Work Phone: Start: 07-02-2013 25 hydroxy includes fractions if performed Vitamin D Hydroxy (14642) [facility] Work Phone: Comment on above: 2 months Start: 03-30-2013 Lipid panel LIPID PANEL (91512) [facility] Work Phone: Start: 03-30-2013 25 hydroxy includes fractions if performed Vitamin D Hydroxy (40985) [facility] Work Phone: Start: 03-30-2013 Blood count manual cell count each CBC WITH MANUAL DIFF (74985) [facility] Work Phone: Start: 03-30-2013 Comprehensive metabolic panel METABOLIC PANEL, COMPREHENSIVE (09314) [facility] Work Phone: Start: 12-29-2012 Thyrotropin Qn TSH (92375) [facility] Work Phone: Start: 12-29-2012 Comprehensive metabolic panel METABOLIC PANEL, COMPREHENSIVE (42637) [facility] Work Phone: Start: 12-29-2012 Blood count manual cell count each CBC WITH MANUAL DIFF (63311) [facility] Work Phone: Start: 12-29-2012 Lipid panel LIPID PANEL (40674) [facility] Work Phone: Start: 12-29-2012 25 hydroxy includes fractions if performed Vitamin D Hydroxy (92668) [facility] Work Phone: Start: 10-09-2012 Culture bct isol&prsmptv id isolate ea urine URINE SUNNY CULTURE-IDENTIFICATN (46581) [facility] Work Phone: Comment on above: recheck after 10 days of cipro Start: 10-09-2012 Urinalysis qual/semiquant except immunoassays URINALYSIS (60783) [facility] Work Phone: Comment on above: recheck after 10 d ays of cipro Start: 10-05-2012 Patient Education Heartburn *: gerd [facility] Work Phone: Start: 10-05-2012 Provider Instruction s for Treatment Diet, Exercise, and Wt loss [facility] Work Phone: Start: 10-05-2012 Lipid panel LIPID PANEL (72533) [facility] Work Phone: Start: 10-05-2012 25 hydroxy includes fractions if performed Vitamin D Hydroxy (65669) [facility] Work Phone: Start: 10-05-2012 Blood count manual cell count each CBC WITH MANUAL DIFF (82903) [facility] Work Phone: Start: 10-05-2012 Comprehensive metabolic panel METABOLIC PANEL, COMPREHENSIVE (23455) [facility] Work Phone: Start: 09-25-2012 Lipid panel Lipid Panel (92619) [facility] Work Phone: Start: 07-08-2012 Thyrotropin Qn TSH (80381) [facility] Work Phone: Start: 07-08-2012 Blood count manual cell count each CBC WITH MANUAL DIFF (77949) [facility] Work Phone: Start: 07-08-2012 25 hydroxy includes fractions if performed Vitamin D Hydroxy (31812) [facility] Work Phone: Start: 06-25-2012 25 hydroxy includes fractions if performed Vitamin D Hydroxy (61022) [facility] Work Phone: Start: 06-25-2012 Comprehensive metabolic panel METABOLIC PANEL, COMPREHENSIVE (47284) [facility] Work Phone: Start: 06-25-2012 Lipid panel LIPID PANEL (98991) [facility] Work Phone: Start: 05-08-2012 Patient Education Sore Throat *: acute pharyngitis [facility] Work Phone: Start: 12-23-2011 Provider Instruction s for Treatment [facility] Work Phone: Start: 12-23-2011 Blood count manual cell count each CBC WITH MANUAL DIFF (91292) [facility] Work Phone: Start: 12-23-2011 Lipid panel LIPID PANEL (86027) [facility] Work Phone: Start: 12-23-2011 25 hydroxy includes fractions if performed Vitamin D Hydroxy (67902) [facility] Work Phone: Start: 09-24-2011 Provider Instruction s for Treatment Diet, Exercise, and Wt loss [facility] Work Phone: Start: 09-24-2011 Thyrotropin Qn TSH (59471) [facility] Work Phone: Start: 09-24-2011 Lipid panel LIPID PANEL (37999) [facility] Work Phone: Start: 09-24-2011 25 hydroxy includes fractions if performed Vitamin D Hydroxy (71801) [facility] Work Phone: Start: 09-24-2011 Blood count manual cell count each CBC WITH MANUAL DIFF (85501) [facility] Work Phone: Start: 09-24-2011 Comprehensive metabolic panel METABOLIC PANEL, COMPREHENSIVE (28349) [facility] Work Phone: Start: 09-21-2011 Comprehensive metabolic panel METABOLIC PANEL, COMPREHENSIVE (14482) [facility] Work Phone: Start: 09-21-2011 25 hydroxy includes fractions if performed Vitamin D Hydroxy (51795) [facility] Work Phone: Start: 09-21-2011 Lipid panel LIPID PANEL (48313) [facility] Work Phone: Start: 09-12-2011 Patient Education Sore throat: diagnosis and treatment [facility] Work Phone: Start: 07-15-2011 Provider Instruction s for Treatment Self breast exam [facility] Work Phone: Start: 07-15-2011 Blood occult fecal h gb deter ia qual feces 1-3 FECAL OCCULT HGB ASSAY- tubes sent home (67712) [facility] Work Phone: Start: 03-20-2011 Provider Instruction s for Treatment [facility] Work Phone: Start: 03-20-2011 25 hydroxy includes fractions if performed Vitamin D Hydroxy (96465) [facility] Work Phone: Start: 03-20-2011 Lipid panel LIPID PANEL (08999) [facility] Work Phone: Start: 12-18-2010 Comprehensive metabolic panel Metabolic Panel, Comprehensive (33030) [facility] Work Phone: Start: 10-22-2010 Assay of parathormone PARATHORMONE ( 48094) [facility] Work Phone: Start: 10-22-2010 Nuclear Ab IF titer (S) DEMARCUS (ANTINUCLEAR ANTIBODY) (64543) [facility] Work Phone: Start: 10-22-2010 CRP mass conc C-REACTIVE PRO TEIN (56565) [facility] Work Phone: Start: 10-22-2010 Sedimentation rate r bc non-automated SED RATE ERYTHROCYTE (34379) [facility] Work Phone: Start: 10-22-2010 Protein mass conc (U) Urine Pr otein Electrophoresis (UPEP) (49305) [facility] Work Phone: Start: 10-22-2010 Protein mass conc Serum Protei n Electrophoresis (SPEP) (53254) [facility] Work Phone: Start: 10-22-2010 25 hydroxy includes fractions if performed Vitamin D Hydroxy (68434) [facility] Work Phone: Start: 10-22-2010 Blood count manual cell count each CBC WITH MANUAL DIFF (36823) [facility] Work Phone: Start: 10-22-2010 Cobalamin (Vitamin B12) mass conc VITAMIN B-12 (CYANOCOBALAMIN) (72254) [facility] Work Phone: Start: 10-22-2010 Thyrotropin Qn TSH (00785) [facility] Work Phone: Start: 10-22-2010 Comprehensive metabolic panel METABOLIC PANEL, COMPREHENSIVE (67593) [facility] Work Phone: Start: 08-14-2010 Rheumatoid factor quantitative RHEUMATOID FACTOR-QUANT (72346) [facility] Work Phone: Start: 08-14-2010 Nuclear Ab IF titer (S) DEMARCUS (ANTINUCLEAR ANTIBODY) (11700) [facility] Work Phone: Start: 08-14-2010 Cobalamin (Vitamin B12) mass conc Vitamin B-12 (cyanocobalamin) (40207) [facility] Work Phone: Start: 08-14-2010 Protein mass conc (U) Urine Pr otein Electrophoresis (UPEP) (11355) [facility] Work Phone: Start: 08-14-2010 Protein mass conc Serum Protei n Electrophoresis (SPEP) (55739) [facility] Work Phone: Start: 08-14-2010 Blood count manual cell count each CBC with manual diff (64436) [facility] Work Phone: Start: 07-16-2010 25 hydroxy includes fractions if performed Vitamin D Hydroxy (46558) [facility] Work Phone: Start: 06-01-2010 Provider Instruction s for Treatment *Antibiotic Usage Education - Female [facility] Work Phone: Start: 03-07-2010 aPTT Coag time (Bld) PTT (Acti vated Partial Thromboplastin Time) (15835) [facility] Work Phone: Start: 03-07-2010 Prothrombin time (PT ) Coag time (PPP) PT (Prothrobim Time) (07905) [facility] Work Phone: Start: 03-07-2010 Comprehensive metabolic panel METABOLIC PANEL, COMPREHENSIVE (87299) [facility] Work Phone: Start: 03-07-2010 Urnls dip stick/tabl et reagent auto microscopy URINALYSIS, W/ MICRO (38572) [facility] Work Phone: Start: 03-07-2010 Blood count manual cell count each CBC WITH MANUAL DIFF (44478) [facility] Work Phone: Start: 03-07-2010 Lipid panel LIPID PANEL (31375) [facility] Work Phone: Start: 03-07-2010 25 hydroxy includes fractions if performed Vitamin D Hydroxy (99607) [facility] Work Phone: Start: 11-29-2009 Lipid panel LIPID PANEL (70516) [facility] Work Phone: Start: 11-29-2009 Comprehensive metabolic panel METABOLIC PANEL, COMPREHENSIVE (29602) [facility] Work Phone: Start: 11-29-2009 Urnls dip stick/tabl et rgnt non-auto w/o micrscp Urinalysis, Office (34315) [facility] Work Phone: Start: 11-29-2009 25 hydroxy includes fractions if performed Vitamin D Hydroxy (36360) [facility] Work Phone: Start: 09-04-2009 Thyrotropin Qn TSH (25746) [facility] Work Phone: Start: 09-04-2009 Urnls dip stick/tabl et reagent auto microscopy URINALYSIS, W/ MICRO (21555) [facility] Work Phone: Start: 09-04-2009 Blood count manual cell count each CBC WITH MANUAL DIFF (39736) [facility] Work Phone: Start: 09-04-2009 Comprehensive metabolic panel METABOLIC PANEL, COMPREHENSIVE (83288) [facility] Work Phone: Start: 09-04-2009 Lipid panel LIPID PANEL (84245) [facility] Work Phone: Start: 09-04-2009 25 hydroxy includes fractions if performed Vitamin D Hydroxy (25647) [facility] Work Phone: Start: 07-19-2009 Virus tiss cul inoculation cytopathic effect VIRAL CULTURE (03894) [facility] Work Phone: Comment on above: vaginal ulcer hsv cx Start: 03-01-2009 [facility]rot[facility]in Qn TSH (49150) [facility] Work [facility] Start: 03-01-2009 25 hydroxy includes fractions if performed Vitamin D Hydroxy (94142) [facility] Work Phone: Start: 01-18-2009 Comprehensive metabolic panel METABOLIC PANEL, COMPREHENSIVE (43909) [facility] Work Phone: Start: 01-18-2009 Thyrotropin Qn TSH (61639) [facility] Work Phone: Start: 01-18-2009 Blood count manual cell count each CBC WITH MANUAL DIFF (21118) [facility] Work Phone: Start: 01-18-2009 25 hydroxy includes fractions if performed Vitamin D Hydroxy (89061) [facility] Work Phone: Start: 01-18-2009 Hepatic function panel HEPATIC FUNCTION PANEL (31580) [facility] Work Phone: Start: 01-18-2009 Assay of lipase Lipase (31337) [facility] Work Phone: Start: 01-18-2009 Amylase enzyme act/vol Amylase (8215 0) [facility] Work Phone: Start: 10-18-2008 25 hydroxy includes fractions if performed Vitamin D Hydroxy (08120) [facility] Work Phone: Start: 10-18-2008 Provider Instruction s for Treatment Diet and Exercise [facility] Work Phone: Start: 07-20-2008 Provider Instruction s for Treatment [facility] Work Phone: Start: 07-06-2008 Thyrotropin Qn TSH (32114) [facility] Work [facility] Start: 07-06-2008 Blood count manual cell count each CBC WITH MANUAL DIFF (39362) [facility] Work Phone: Start: 07-06-2008 Comprehensive metabolic panel METABOLIC PANEL, COMPREHENSIVE (00622) [facility] Work Phone: Start: 07-06-2008 Lipid panel LIPID PANEL (26777) [facility] Work Phone: Start: 04-14-2008 Cul bact xcpt urine blood/stool aerobic isol SUNNY CULTURE-OTHER (21313) [facility] Work Phone: Start: 04-14-2008 Provider Instruction s for Treatment FOLLOW UP NEEDED [facility] Work Phone: Start: 03-30-2008 Urine albumin quantitative MICROALBUMIN URINE QUANT (42335) [facility] Work Phone: Start: 03-30-2008 25 hydroxy includes fractions if performed Vitamin D Hydroxy (75108) [facility] Work Phone: Start: 01-06-2008 Comprehensive metabolic panel METABOLIC PANEL, COMPREHENSIVE (98342) [facility] Work Phone: Start: 01-06-2008 Blood count manual cell count each CBC WITH MANUAL DIFF (53895) [facility] Work Phone: Start: 01-06-2008 Troponin I.cardiac mass conc ASSAY, TROPONIN, QUANTITATIVE (aka Troponin I) (69927) [facility] Work Phone: Start: 01-06-2008 Creatine kinase mb fraction only CPK MB FRACTION (67132) [facility] Work Phone: Start: 01-06-2008 Fibrin dgradj produc ts d-dimer quantitative D-Dimer (47233) [facility] Work Phone: Start: 01-06-2008 Calcium mass conc CALCIUM SERUM (823 10) [facility] Work Phone: Start: 01-06-2008 Phosphate mass conc PHOSPHORUS (8410 0) [facility] Work Phone: Start: 01-06-2008 Assay of parathormone PARATHORMONE ( 38129) [facility] Work Phone: Start: 01-06-2008 1 25 dihydroxy includes fractions if performed VITAMIN D, 1, 25-DIHYDROXY (77644) [facility] Work Phone: Start: 10-05-2007 Provider Instruction s for Treatment FOLLOW UP NEEDED [facility] Work Phone: Start: 09-30-2007 1 25 dihydroxy includes fractions if performed VITAMIN D, 1, 25-DIHYDROXY (87285) [facility] Work Phone: Start: 09-30-2007 Lipid panel LIPID PANEL (47584) [facility] Work Phone: Start: 09-30-2007 Hepatic function panel HEPATIC FUNCTION PANEL (53659) [facility] Work Phone: Start: 09-22-2007 Provider Instruction s for Treatment [facility] Work Phone: Start: 07-01-2007 1 25 dihydroxy includes fractions if performed VITAMIN D, 1, 25-DIHYDROXY (82683) [facility] Work Phone: Start: 07-01-2007 Provider Instruction s for Treatment FOLLOW UP IN 3 MONTHS [facility] Work Phone: Start: 05-01-2007 Provider Instruction s for Treatment [facility] Work Phone: Start: 03-27-2007 Provider Instruction s for Treatment Antibiotic Usage Education - Female [facility] Work Phone: Start: 03-27-2007 Hepatic function panel HEPATIC FUNCTION PANEL (15462) [facility] Work Phone: Start: 03-27-2007 Lipid panel LIPID PANEL (29678) [facility] Internal Medicine Work Phone: Start: 12-18-2006 Provider Instruction s for Treatment FOLLOW UP IN 3 MONTHS [facility] Work Phone: Start: 09-12-2006 Provider Instruction s for Treatment [facility] Work Phone: Start: 09-12-2006 Hepatic function panel HEPATIC FUNCTION PANEL (93334) [facility] Work Phone: Start: 09-12-2006 Lipid panel LIPID PANEL (79916) [facility] prehensive Internal Medicine Work Phone: MG Breast - bilatera l Screening [facility] MG Breast - bilatera l Screening [facility] MG Breast - bilatera l Screening [facility] Patient referral [facility] Work Phone: XR Foot [address] 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 [facility] Work Phone: Comment on above: BM Payers Date Payer Category Payer Self-pay [id number] 2016 [employer] ( and others) [employer] [id number] 2016 [employer] ( and others) [id number] 2016 [employer] ( and others) [employer] [id number] 2015 Medicare [id number] Unknown Unknown [id number] 62 Unknown [id number] 62 Unknown [id number] 62 Unknown [id number] 62 Unknown [id number] 62 Unknown [id number] 62 Unknown [id number] 62 Unknown [id number] 62 Social History Date Type Detail Facility No Caffeine Use Never smoker Comprehens[facility] e Internal Medicine Work Phone: Comment on above: never smoker Tobacco use: Never smoker. [facility] Work Phone: Start: 05-22-2021 End: 11-15-2022 Tobacco smoking status NHIS Unknown if ever smoked [facility] Start: 10-13-2020 None [facility] Start: 10-13-2020 Alone [facility] Start: 10-13-2020 Non-smoker [facility] Start: 1950 Sex Assigned At Female [facility] Start: 07-12-2024 Tobacco smoking status NHIS Never smoked tobacco (finding) [facility] Medical Equipment Procedure Code Equipment Code Equipment [...] 03-11-2017 Cognitive function Mood Descript ion Appropriate;Calm;Relaxed [facility] Work Phone: Clinical Note 07-12-2024 Note Date & Type Note Facility 07-12-2024 Note [facility] Medical Records Department [address] [place] [address] History Physical Exam 07/12/24 0754 MR#: [id number] Acct: [id number] Name: MAYA CURRY Rep #: [id number] : 1950 74 From: Za Dhaliwal MD PCP: Dr. Maurilio Castillo MD Status:REG [facility] [place] Location: [place] [address] HPI - General General Date of Service: [...] complain of bilateral lower quadrant/more suprapubic pain. [facility] Medical History Back pain Essential tremor Colitis [...] No Respiratory Chronic (more content not included)... [facility] Hospital Discharge instructions 07-13-2018 Note Date & Type Note Facility 07-13-2018 Hospital Discharge instructions Ambulatory OrdersDexa Bone Density Study Location: None SelectedIron+Iron Binding Capacity Location: LaboratoryReturn to Office Location: None SelectedSCREENING MAMM (CAD), BILAT Time Frame: 07/13/18, Location: None SelectedSCREENING MAMM (CAD), BILAT [HPBI] Time Frame: 1 Year, Location: None Selected [facility] Work Phone: Evaluation note Note Date & Type Note Facility Evaluation note No assessment information availa ble [facility] Work Phone: Evaluation note Note Date & Type Note Facility Evaluation note Diagnosis Onset Date History of right breast cancer chronic [facility] Work Phone: Evaluation note Note Date & Type Note Facility Evaluation note Diagnosis Onset Date Low back pain acute [facility] Work Phone: Evaluation note Note Date & Type Note Facility Evaluation note Diagnosis Onset Date Low back pain acute Lumbosacral radiculopathy at L3 acute [facility] Work Phone: Evaluation note Note Date & Type Note Facility Evaluation note Diagnosis Onset Date Lumbosacral radiculopathy at L3 acute Lumbosacral radiculopathy at L3 acute History of right breast cancer chronic Osteopenia chronic Anemia resolved Breast cancer, right breast resolved [facility] Work Phone: Evaluation note Note Date & Type Note Facility Evaluation note Diagnosis Onset Date Lumbosacral radiculopathy at L3 acute History of right breast cancer chronic Osteopenia chronic Anemia resolved Breast cancer, right breast resolved [facility] Work Phone: Reason for referral (narrative) Note Date & Type Note Facility Reason for referral (narrative) No reason for referral information available [facility] Work Phone: Family History No Family History [...] Records Found Name Dates Details Immunization Registry [place] - Effective on 05/21/2018. Expiration date unspecified Effective:21-May-2018 Name Dates Details Immunization Registry [place] - Effective on 05/21/2018. Expiration date unspecified Effective:21-May-2018 Name Dates Details Immunization Registry [place] - Effective on 05/21/2018. Expiration date unspecified Effective:21-May-2018 Advance Directive Response Recorded Date/ Time Advance Directives Yes September 12, 2016 3:33pm Living Will Yes May 22, 2021 11:26am Power of Corporate Administrative Assistant Yes April 11:26am Advance Directive Response Recorded Date/ Time Advance Directives Yes September 12, 2016 2:33pm Living Will Yes May 22, 2021 10:26am Power of Corporate Administrative Assistant Yes April 10:26am Advance Directive Response Recorded [...] Hawk Yeboah DO Attending Provider, Referring P rovimaria luisa Active Team Status: Inactive Member Role Status [...] section and content) DATE CREATED AUTHOR 06/26/[address] [facility] FOR RECORDS PERTAINING TO PATIENTS WHO [...] BE BASED ON THE PRIMARY CLINICAL RECORDS. [employer] provides no warranty or guarantee of the accuracy or completeness of information in this document.
== END | disposition home or self-care (01) ==
PROVIDERS: PCP Family Medicine; Referring Provider Family Medicine; Visit Provider Family Medicine
DX: R10.11 Right upper quadrant pain (principal)
CPT/HCPCS: 76705

== ENCOUNTER → 2025-08-22 | Outpatient (CLI) | payer MEDICARE, OTHER, SELFPAY ==
--- NOTE | 2025-08-22 08:37 | MRI_ITS ---
PROCEDURE: SPINE LUMBAR (ROUTINE) 08/22/2025 REASON FOR EXAM: Back pain TECHNIQUE: Procedure Code: MRISPL Modality: MR Procedure: SPINE LUMBAR (ROUTINE) COMPARISON: None available FINDINGS: For the purposes of this report, the most caudal rectangular vertebral body will be designated L5. The next most caudal trapezoidal shaped vertebral body will be designated S1. The intervening disc at the lumbosacral angle is designated L5-S1. The normal lumbar lordosis is maintained. Mild lumbar levoscoliosis. The lumbar vertebral bodies are normal in height. Grade 1 L4-L5 anterolisthesis. No bone marrow replacing lesion in the lumbar spine. Multilevel disc desiccation and intervertebral disc space height loss. Multiple small Schmorl's nodes associated bone marrow edema. There is no evidence of signal abnormality in the imaged distal spinal cord. The conus medullaris terminates at the level of T12. T12-L1: Disc extrusion contributes to mild spinal canal stenosis. No significant neural foraminal narrowing. L1-L2: No significant spinal canal stenosis or neural foraminal narrowing. L2-L3: Disc bulge, bilateral facet arthrosis, and ligamentum flavum hypertrophy contribute to mild spinal canal stenosis. No significant neural foraminal narrowing. L3-L4: Disc bulge, bilateral facet arthrosis, ligamentum flavum hypertrophy contribute to mild spinal canal stenosis. Mild bilateral neural foraminal narrowing. L4-L5: Uncovering of the disc, bilateral facet arthrosis, and ligamentum flavum hypertrophy. Mild spinal canal stenosis. No significant neural foraminal narrowing. L5-S1: Disc bulge, bilateral facet arthrosis, ligamentum flavum hypertrophy. Mild spinal canal stenosis. No significant neural foraminal narrowing. Type 2 Modic endplate changes. The posterior paraspinal muscles are unremarkable. MRI/Spine Lumbar (Routine) IMPRESSION: Lumbar spondylosis without high-grade spinal canal or neural foraminal stenosis . Reading Location: [id number]
== END | disposition home or self-care (01) ==
PROVIDERS: PCP Family Medicine; Referring Provider Student in an Organized Health Care Education/Training Program; Visit Provider Student in an Organized Health Care Education/Training Program
DX: M51.362 Other intervertebral disc degeneration, lumbar region with discogenic back pain and lower extremity pain (principal); M48.062 Spinal stenosis, lumbar region with neurogenic claudication
CPT/HCPCS: 72148